=== PATIENT | female | born 1960 | race Caucasian/White ===

== ENCOUNTER 2016-10-14 22:15 | Inpatient (IN) | payer OTHER ==
[~2016-10-14] VITALS: Ht 160 cm; Wt 58.8 kg
--- NOTE | 2016-10-14 22:30 | ERA ---
ER Documentation Chief Complaint Date/Time DATE: 10/14/16 TIME: 22:30 Chief Complaint Fever HPI The patient is a 56-year-old female, presenting to the ER because of fever of 102.3 at 5 PM today at the intermediate. She was sent to the ER for further evaluation. She is unable to provide history. The history is obtained from [facility] certified concierge and medical record. She is currently receiving Tygacil and tobramycin for ESBL urine and wound infection beginning on October 06, 2016. No further history is obtained from the patient not a [employer] certified concierge Past medical history: Chronic respiratory failure, ventilator dependence, anemia , history of GI bleed, chronic kidney disease, neurogenic bladder, MS, diabetes mellitus, dyslipidemia, history of anoxic encephalopathy, history of basal cell carcinoma Past surgical history: Tracheostomy, G-tube, indwelling Joel catheter ROS All systems reviewed and are negative except as per history of present illness. Medications Home Meds Reported Medications Insulin Aspart* (Novolog Insulin Pen*) 100 Unit/Ml Soln, 0 SC .SLIDING SCALE AC , EA 10/14/16 Metoprolol Tartrate* (Lopressor*) 25 Mg Tab, 25 MG GTB BID, #60 TAB HOLD IF SBP<110; HR<60 10/14/16 Baclofen* (Baclofen*) 20 Mg Tablet, 20 MG GTB TID, TAB 10/14/16 Magnesium Oxide* (Magnesium Oxide*) 400 Mg Tablet, 400 MG GTB BID, TAB 10/14/16 Gemfibrozil* (Gemfibrozil*) 600 Mg Tablet, 600 MG GTB BID, TAB 10/14/16 [place]ma-3 Fatty Acids/Fish Oil (Fish Oil 1,000 mg Capsule) 1 Each Capsule, 1 EACH GTB BID, CAP 10/14/16 Clonidine Hcl* (Clonidine Hcl*) 0.1 Mg Tab, 0.1 MG GTB Q8, TAB IF SBP>160 10/14/16 Atorvastatin* (Atorvastatin*) 40 Mg Tablet, 40 MG GTB QHS, #30 TAB 10/14/16 Ascorbic Acid (Vitamin C) 500 Mg Tab, 500 MG GTB TID, TAB 10/14/16 Simethicone (GAS RELIEF) 80 Mg Tab.chew, 160 MG GTB DAILY, TAB.CHEW 10/14/16 Zinc Sulfate* (Zinc Sulfate*) 220 Mg Tablet, 220 MG GTB DAILY, TAB 10/14/16 Loratadine* (Loratadine*) 10 Mg Tablet, 10 MG GTB DAILY, #30 TAB 10/14/16 Glucagon,Human Recombinant (Glucagon Emergency Kit) 1 Mg Kit, 1 MG IJ PRN Y for PRN, KIT INJECT ONCE IN 20-30 MIN,IF BS<40 10/14/16 Insulin Detemir (Levemir Flextouch) 100 Unit/1 Ml Insuln.pen, 40 UNIT SQ QAM 10/14/16 Docusate Sodium* (Colace*) 250 Mg Capsule, 250 MG PO TID, #90 CAP TAKE 06:00-14:00-22:00 10/14/16 Acetaminophen* (Acetaminophen*) 650 Mg Tablet, 650 MG PO Q4 Y for ELEVATED TEMPERATURE, #30 TAB 10/14/16 Diphenhydramine Hcl* (Diphenhydramine Hcl*) 25 Mg Capsule, 25 MG GTB Q4 Y for ITCHING, CAP 10/14/16 Pantoprazole* (Pantoprazole*) 40 Mg Tablet.dr, 40 MG GTB AC BREAKFAST, TAB 10/14/16 Allergies Allergies: Coded Allergies: levofloxacin (Verified Allergy, Unknown, 10/14/16) vancomycin (Verified Allergy, Unknown, 10/14/16) Physical Exam Vitals Vital Signs Date Time Temp Pulse Resp B/P Pulse Ox O2 Delivery O2 Flow Rate FiO2 10/15/16 03:38 79 16 99 40 10/15/16 02:55 100.3 82 16 114/70 100 Mechanical Ventilator 10/15/16 01:21 105 16 95 60 10/15/16 00:59 100.3 78 16 102/63 99 Mechanical Ventilator 10/14/16 22:40 81 16 99 30 10/14/16 22:36 100.3 81 16 104/59 100 10/14/16 22:30 100.3 72 18 109/67 100 Mechanical Ventilator Physical Exam Const: No acute distress. Head: Atraumatic. Eyes: Normal Conjunctiva. ENT: Normal External Ears, Nose and Mouth. Neck: Full range of motion. No meningismus. Resp: Clear to auscultation bilaterally anteriorly laterally Cardio: Regular rate and rhythm, no murmurs. Abd: Soft, non distended, normal bowel sounds, non tender. Positive G -tube Skin: No petechiae or rashes. Back: No midline or flank tenderness. Ext: No cyanosis, or edema. Bilateral upper extremity immobilized Neur: Unable to perform due to condition Psych: Unable to perform due to condition Result Diagram: 10/14/16224910/14/162249 Results 24 hrs Laboratory Tests Test 10/14/16 22:44 10/14/16 22:50 10/15/16 01:10 Arterial Blood HCO3 26.4mmol/L Arterial Blood Base Excess 2.0mmol/L Arterial Blood Oxygen Saturation 96.3mmHG Tristian Test ACCEPTAB Arterial Blood Gas Puncture Site Left Radial Arterial Blood Carboxyhemoglobin 0.3% Arterial Blood Date Drawn 10/14/2016 11:23:46 PM Arterial Blood Methemoglobin 0.2% Arterial Blood pCO2 (Temp correct) 40.3mmhg Arterial Blood pH (Temp corrected) 7.434 Arterial Blood pO2 (Temp corrected) 84.6mmHG Blood Gas A-a O2 Differential 82.0mmHg Blood Gas Actual Respiration Rate 16 Blood Gas Low PEEP Setting 5.0cmH2O Blood Gas Modality VENT - AC Blood Gas Notified Time 10/14/2016 11:28:30 PM Blood Gas Notified Whom BR Blood Gas Respiration Rate 16.0 Blood Gas Specimen Source Blood arterial Blood Gas Temperature 37.0C Blood Gas Tidal Volume 450.0mL FiO2 30.0% Oxyhemoglobin Percent 95.8% Total Hemoglobin 9.7g/dl Activated Partial Thromboplast Time 36.4Sec Alanine Aminotransferase (ALT/SGPT) 14IU/L Albumin 3.6g/dl Albumin/Globulin Ratio 0.80 Alkaline Phosphatase 144IU/L Anion Gap 25 Anisocytosis 1+ Aspartate Amino Transf (AST/SGOT) 23IU/L Basophils # 0.010^3/ul Basophils % 0.2% Blood Morphology Comment Blood Urea Nitrogen 98mg/dl Calcium Level 11.9mg/dl Carbon Dioxide Level 22mmol/L Chloride Level 99mmol/L Creatinine 2.89mg/dl Direct Bilirubin 0.00mg/dl Eosinophils # 0.210^3/ul Eosinophils % 2.9% Globulin 4.50g/dl Glucose Level 271mg/dl Hematocrit 22.3% Hemoglobin 7.4g/dl Hypochromasia 1+ INR International Normalized Ratio 1.11 Indirect Bilirubin 0.0mg/dl Lactic Acid Level 1.7mmol/L 1.0mmol/L Large Platelets FEW Lymphocytes # 0.910^3/ul Lymphocytes % 17.0% Mean Corpuscular Hemoglobin 28.1pg Mean Corpuscular Hemoglobin Concent 33.5g/dl Mean Corpuscular Volume 84.0fl Mean Platelet Volume 9.6fl Microcytosis 1+ Monocytes # 0.510^3/ul Monocytes % 10.2% Neutrophils # 3.710^3/ul Neutrophils % 69.7% Nucleated Red Blood Cells # 0.010^3/ul Nucleated Red Blood Cells % 0.0/100WBC Platelet Count 15587^3/UL Platelet Estimate PLT APPEAR ADEQUATE Potassium Level 6.0mmol/L Prothrombin Time 14.3Sec Prothrombin Time Ratio 1.1 Red Blood Count 2.6510^6/ul Red Cell Distribution Width 16.6% Sodium Level 140mmol/L Tear Drop Cells FEW Total Bilirubin 0.0mg/dl Total Protein 8.1g/dl Troponin I < 0.010ng/ml White Blood Count 5.310^3/ul Current Medications Medications (Trade) Dose Ordered Sig/Charlie Route PRN Reason Start Time Stop Time Status Last Admin Dose Admin Piperacillin Sod/ Tazobactam Sod 50 ml @ 100 mls/hr ONCE ONCE IVPB 10/15/16 00:00 10/15/16 00:29 Cancel Piperacillin Sod/ Tazobactam Sod (Zosyn 2.25gm/ 50ml (Pmx)) 50 ml @ 100 mls/hr ONCE ONCE IVPB 10/15/16 00:00 10/15/16 00:29 DC 10/15/16 00:57 Insulin Human Regular (Humulin R) 10 unit ONCE ONCE IV 10/15/16 01:31 10/15/16 01:32 DC 10/15/16 01:40 Dextrose 50 ml 50 ml ONCE ONCE IV 10/15/16 01:31 10/15/16 01:32 DC 10/15/16 01:39 Sodium Chloride (NS) 1,000 ml @ 50 mls/hr Q20H IV 10/15/16 01:32 10/15/16 02:03 Ondansetron HCl (Zofran Inj) 4 mg Q6H PRN IV NAUSEA AND/OR VOMITING 10/15/16 02:00 Nitroglycerin (Nitroglycerin (Sl Tab) 0.4 Mg) 1 tab Q5M PRN SL CHEST PAIN 10/15/16 02:00 Acetaminophen (Tylenol Supp) 650 mg Q4H PRN OR PAIN LEVEL 1-3 OR FEVER 10/15/16 02:00 Lorazepam (Ativan) 1 mg Q2H PRN IV ANXIETY 10/15/16 02:00 Pantoprazole (Protonix Iv) 40 mg DAILY@06 IV 10/15/16 06:00 Insulin Aspart (Novolog Insulin Pen) NOVOLOG *MILD* ALGORITHM WITH MEALS BEDTIME SC 10/15/16 07:35 Miscellaneous Information (* Miscellaneous Pharmacy Order) HYPOGLYCEMIA PROTOCOL w... ONCE ONCE XX 10/15/16 02:00 10/15/16 02:01 DC Miscellaneous Information (* Miscellaneous Pharmacy Order) Discontinue Glyburide, Glipizide,... ONCE ONCE XX 10/15/16 02:00 10/15/16 02:01 DC Miscellaneous Information (* Miscellaneous Pharmacy Order) Discontinue all previ... ONCE ONCE XX 10/15/16 02:00 10/15/16 02:01 DC Atorvastatin Calcium (Lipitor) 40 mg QHS GTB 10/15/16 21:00 Baclofen (Lioresal) 20 mg TID GTB 10/15/16 09:00 Clonidine (Catapres) 0.1 mg Q8 GTB 10/15/16 06:00 Diphenhydramine HCl (Benadryl Liquid Cup) 25 mg Q4H PRN GTB ITCHING 10/15/16 01:45 Gemfibrozil (Lopid) 600 mg BID GTB 10/15/16 09:00 Insulin Detemir (Levemir) 40 unit QAM SC 10/15/16 09:00 Loratadine (Claritin) 10 mg DAILY GTB 10/15/16 09:00 Magnesium Oxide (Mag-Ox 400) 400 mg BID GTB 10/15/16 09:00 Metoprolol Tartrate (Lopressor) 25 mg BID GTB 10/15/16 09:00 Pantoprazole (Protonix Tab) 40 mg AC BREAKFAST PO 10/15/16 07:00 10/15/16 07:00 DC Simethicone (Mylicon) 160 mg DAILY GTB 10/15/16 09:00 Zinc Sulfate (Zinc Sulfate) 220 mg DAILY GTB 10/15/16 09:00 Fish Oil 1000 mg 1,000 mg BID PO 10/15/16 09:00 Cefepime HCl 50 ml @ 100 mls/hr Q12 IVPB 10/15/16 09:00 Tigecycline/ Sodium Chloride (Tygacil/NS) 100 ml @ 200 mls/hr Q12 IVPB 10/15/16 09:00 Miscellaneous Information 1 ea NOTE XX 10/15/16 02:00 Glucose (Glutose) 15 gm Q15M PRN PO DECREASED GLUCOSE 10/15/16 02:00 Glucose (Glutose) 22.5 gm Q15M PRN PO DECREASED GLUCOSE 10/15/16 02:00 Dextrose (D50w Syringe) 25 ml Q15M PRN IV DECREASED GLUCOSE 10/15/16 02:00 Dextrose (D50w Syringe) 50 ml Q15M PRN IV DECREASED GLUCOSE 10/15/16 02:00 Glucagon (Glucagen) 1 mg Q15M PRN IM DECREASED GLUCOSE 10/15/16 02:00 Glucose (Glutose) 15 gm Q15M PRN BUCCAL DECREASED GLUCOSE 10/15/16 02:00 Diagnostic Test (Pha) (Accucheck) 1 ea 02 XX 10/16/16 02:00 Procedures/MDM EKG: Read by emergency physician Rate/Rhythm: Normal Sinus Rhythm 78 beats per min QRS, ST, T-waves: No ST elevation, no T wave inversion Impression: Normal EKG [place] [id number] Radiology Main Line: [phone] DIAGNOSTIC IMAGING REPORT Patient: MALLIKA CID : [id number] Age: 56 Sex: F MR #: [id number] DOS: 10/14/16 2244 Ordering MD: RAGHAVENDRA ED LA CRUZ MD Location: E/R Room/Bed: PROCEDURE: XR Chest AP portable CLINICAL INDICATION: Possible sepsis TECHNIQUE: An AP portable radiograph of the chest was submitted. COMPARISON: None. FINDINGS: Support Hardware: A tracheostomy tube appears satisfactorily positioned. Cardiovascular: The cardiovascular silhouette appears unremarkable. Lung Tello: There is atelectasis and possibly infiltrate seen to the heart with in the left lower lobe. Pleural Spaces: The left costophrenic angle is blunted suggesting a small left pleural fluid accumulation. No pneumothorax is evident. Osseous Structures: The osseous elements appear rarefied Soft Tissues: The soft tissues appear unremarkable. IMPRESSION: 1. A tracheostomy tube is satisfactorily positioned. 2. Atelectasis and possibly infiltrate seen to the heart within the left lower lobe. 3. Small left pleural fluid accumulation. Quique Villalpando Physician Date Time Electronically viewed and signed by Quique Villalpando Physician on 10/14/2016 23:24 RH/ CC: RAGHAVENDRA DE LA CRUZ MD Urinalysis pending MEDICAL MAKING DECISION: The patient is a 56-year-old female, presenting with acute ventilator associated pneumonia, associated with fever of 102.3 at the intermediate, acute hyperkalemia, anemia. She is currently taking Tygacil IV and tobramycin IV. I will add Zosyn IV for acute pneumonia. She was treated with D50 IV, 10 Regular Insulin IV for acute hyperkalemia with good response. The differential diagnoses considered include but are not limited to asthma, COPD, pneumonia, pulmonary embolus, pleural effusion, congestive heart failure. The differential diagnoses for severe anemia considered include but are not limited to gastritis, peptic ulcer disease, esophageal varices, Naty-Blancas tear, carcinoma, polyp, hemorrhoid, fissure, diverticulosis, angiodysplasia. Critical Care: Time: 35 minutes excluding all billable procedures. Treatments/Evaluations: Close monitoring and treatment of unstable vital signs, cardiorespiratory, and neurologic status, while maintaining tight balance of fluid, respiratory, and cardiac interventions. Departure Diagnosis: Primary Impression: Ventilator associated pneumonia Additional Impressions: Hyperkalemia Anemia Condition: Critical Comments I discussed the findings with the patient. I discussed the patient with the on- call hospitalist Dr. Dempsey who was made aware of the lab, the treatment, the patient condition. The patient is admitted to ICU at 1:35 AM RAGHAVENDRA DE LA CRUZ MD Oct 14, 2016 22:30
[2016-10-14] MEDS ORDERED: DIPH25CA6 GTB (22:42)
[2016-10-14] MEDS ORDERED: PANT40TA4 GTB (22:42)
[2016-10-14] MEDS ORDERED: ACET-2047 PO (22:43)
[2016-10-14] MEDS ORDERED: DOCU250C58 PO (22:45)
[2016-10-14] MEDS ORDERED: INSU100I27 SQ (22:47)
[2016-10-14] MEDS ORDERED: GLUC1KIT IJ (22:52)
[2016-10-14] MEDS ORDERED: LORA10TA3 GTB (22:52)
[2016-10-14] MEDS ORDERED: ZINC220T GTB (22:53)
[2016-10-14] MEDS ORDERED: SIME80TA53 GTB (22:57)
[2016-10-14] MEDS ORDERED: ATOR40TA68 GTB (22:58)
[2016-10-14] MEDS ORDERED: ASC500 GTB (22:58)
[2016-10-14] MEDS ORDERED: CLON-379 GTB (22:59)
[2016-10-14] MEDS ORDERED: OMEG-135 GTB (23:00)
[2016-10-14] MEDS ORDERED: GEMF600T60 GTB (23:01)
[2016-10-14] MEDS ORDERED: MAGN400T28 GTB (23:01)
[2016-10-14] MEDS ORDERED: BACL20TA GTB (23:03)
[2016-10-14] MEDS ORDERED: METO-448 GTB (23:05)
[2016-10-14] MEDS ORDERED: NOVO3I SC (23:08)
--- NOTE | 2016-10-14 23:24 | RADRPT ---
PROCEDURE: XR Chest AP portable CLINICAL INDICATION: Possible sepsis TECHNIQUE: An AP portable radiograph of the chest was submitted. COMPARISON: None. FINDINGS: Support Hardware: A tracheostomy tube appears satisfactorily positioned. Cardiovascular: The cardiovascular silhouette appears unremarkable. Lung Tello: There is atelectasis and possibly infiltrate seen to the heart with in the left lower l obe. Pleural Spaces: The left costophrenic angle is blunted suggesting a small left pleural fluid accumul ation. No pneumothorax is evident. Osseous Structures: The osseous elements appear rarefied Soft Tissues: The soft tissues appear unremarkable. IMPRESSION: 1. A tracheostomy tube is satisfactorily positioned. 2. Atelectasis and possibly infiltrate seen to the heart within the left lower lobe. 3. Small left pleural fluid accumulation. Physician Gianna Date Time Electronically viewed and signed by Quique Villalpando Physician on 10/14/2016 23:24 /
[2016-10-14 23:29] LABS: Allen Test ACCEPTAB; Arterial COHb 0.3 % (0.0-3.0); Arterial Fraction of Oxyhgb 95.8 % (93.0-99.0); Arterial HCO3 26.4 mmol/L (22.0-26.0); Arterial MetHb 0.2 % (0.0-1.5); Arterial Total Hemglobin 9.7 g/dl (12.0-18.0); MODE VENT - AC
[2016-10-14 23:43] LABS: BASOPHILS % 0.2 % (0.0-2.0); EOSINOPHILS # 0.2 10^3/ul (0.0-0.5); EOSINOPHILS % 2.9 % (0.0-7.0); HEMATOCRIT 22.3 % (37.0-47.0); HEMOGLOBIN 7.4 g/dl (12.0-16.0); LYMPHOCYTES # 0.9 10^3/ul (0.8-2.9); MEAN CORPUSCULAR HEMOGLOBIN 28.1 pg (29.0-33.0); MEAN CORPUSCULAR HGB CONC 33.5 g/dl (32.0-37.0); MEAN PLATELET VOLUME 9.6 fl (7.4-10.4); MONOCYTE # 0.5 10^3/ul (0.3-0.9); MONOCYTES % 10.2 % (0.0-11.0); NEUTROPHIL # 3.7 10^3/ul (1.6-7.5); NEUTROPHILS % 69.7 % (39.0-77.0); PLATELET COUNT 226 10^3/UL (140-440); RED BLOOD COUNT 2.65 10^6/ul (4.20-5.40); RED CELL DISTRIBUTION WIDTH 16.6 % (11.5-14.5); UNCORRECTED WBC 5.3 10^3/ul (4.8-10.8); WHITE BLOOD COUNT 5.3 10^3/ul (4.8-10.8)
[2016-10-14 23:49] LABS: INR 1.11; PROTIME 14.3 Sec (12.2-14.2); PT RATIO 1.1
[2016-10-14 23:50] LABS: PARTIAL THROMBOPLASTIN TIME 36.4 Sec (25.0-35.0)
[2016-10-14 23:53] LABS: CONDITION 1; LH ANALYZER COMMENTS 1
[2016-10-15] VITALS (54 sets, daily range): BP systolic 79–143; BP diastolic 50–86; PULSE 67–138; RESP 15–17; TEMP 100.3; Ht 160 cm; Wt 58.8 kg
[2016-10-15] MEDS ORDERED: PIPER-TAZO 2.25 GM (PMX) 50 ML IVPB ONE ×2
[2016-10-15 01:13] LABS: ALBUMIN 3.6 g/dl (3.3-4.9); CHLORIDE 99 mmol/L (97-110); SODIUM 140 mmol/L (135-144)
[2016-10-15 01:15] LABS: ANION GAP 25 (8-16); CARBON DIOXIDE 22 mmol/L (21-31); CREATININE 2.89 mg/dl (0.44-1.00)
[2016-10-15 01:16] LABS: ALANINE AMINOTRANSFERASE 14 IU/L (13-69); ALKALINE PHOSPHATASE 144 IU/L (42-121); ANISOCYTOSIS 1+; ASPARTATE AMINO TRANSFERASE 23 IU/L (15-46); BLOOD UREA NITROGEN 98 mg/dl (7-20); CALCIUM 11.9 mg/dl (8.4-10.2); GLUCOSE 271 mg/dl (70-220); HYPOCHROMASIA 1+; MICROCYTOSIS 1+; TOTAL PROTEIN 8.1 g/dl (6.1-8.1)
[2016-10-15 01:17] LABS: PLATELET ESTIMATE PLT APPEAR ADEQUATE; TEAR DROP CELLS FEW
[2016-10-15] MEDS ORDERED: INSULIN REGULAR, HUMAN 100 UNIT/1 ML 3ML VIAL IV ONE (01:31)
[2016-10-15] MEDS ORDERED: DEXTROSE 50% 50 ML SYRINGE IV ONE (01:31)
[2016-10-15 01:45] LABS: TROPONIN-I < 0.010 ng/ml (0.00-0.12)
[2016-10-15] MEDS ORDERED: DIPHENHYDRAMINE 2.5 MG/ML 5ML CUP GTB PRN (01:45)
[2016-10-15] MEDS ORDERED: ONDANSETRON 4 MG INJ IV PRN (02:00)
[2016-10-15] MEDS ORDERED: GLUCOSE GEL 15 GRAM TUBE BUCCAL PRN (02:00)
[2016-10-15] MEDS ORDERED: ACETAMINOPHEN 650 MG SUPP PR PRN (02:00)
[2016-10-15] MEDS ORDERED: GLUCAGON 1 MG INJ IM PRN (02:00)
[2016-10-15] MEDS ORDERED: DEXTROSE 50% 50 ML SYRINGE IV PRN ×2 (02:00)
[2016-10-15] MEDS ORDERED: GLUCOSE GEL 15 GRAM TUBE PO PRN ×2 (02:00)
[2016-10-15] MEDS ORDERED: LORAZEPAM 2 MG INJ IV PRN (02:00)
[2016-10-15] MEDS ORDERED: NITROGLYCERIN (SL) 0.4 MG TAB SL PRN (02:00)
--- NOTE | 2016-10-15 02:00 | HP ---
Date/Time of Note Date/Time of Note DATE: 10/15/16 TIME: 01:49 Assessment/Plan VTE Prophylaxis VTE Prophylaxis Intervention: contraindicated VTE Contraindication Reason: bleeding Lines/Catheters Urinary Cath still in place: Yes Reason Cath still needed: urinary retention Assessment/Plan Assessment/Plan 56 yo unfortunate female with a past medical history of MS, trach dependent respiratory failure, type II DM, chronic wounds, dyslipidemia, anemia - chronic , GI bleed, neurogenic bladder, Basal Cell CA, who was sent from [facility] for elevated temperatures. 1. Fevers - 2/2 Pneumonia - possible sepsis - will admit the patient to the ICU , continue with IV antibiotics, cultures, Id c/s 2. Acute on chronic respiratory failure - consult pulmonology, breathing treatments 3. Hyperkalemia - cocktail given, monitor 4. Anemia - acute on chronic -transfuse 2 units prbcs - monitor acute bleeding 5. Acute on chronic kidney failure - c/s nephro - avoid nephrotoxins, renally adjust medications, low dose IVF 6. Type II DM - check hgba1c, ISS 7. Dyslipidemia - continue with statin, lipid panel 8. Neurogenic bladder -continue with munoz 9. MS - monitor acute flares 10. GI ppx - protonix 11. DVT - scds as per clinical course. this critical care note took greater than 1 hour to complete HPI/ROS Admit Date/Time Admit Date/Time 10/15/2016, 1:49 am Hx of Present Illness 56 yo unfortunate female with a past medical history of MS, trach dependent respiratory failure, type II DM, chronic wounds, dyslipidemia, anemia - chronic , GI bleed, neurogenic bladder, Basal Cell CA, who was sent from [facility] for elevated temperatures. All this information was gathered from the chart and the ED physician as the patient is non-verbal. ROS cannot complete 2/2 to being obtunded/nonverbal PMH/Family/Social Past Medical History MS, Trach dependent respiratory failure Medical History: diabetes, GI bleed, high cholesterol, hypertension, renal disease Past Surgical History trach/peg Family History Significant Family History: no pertinent family hx Social History Alcohol Use: none Smoking Status: Unknown if ever smoked Drug Use: none Exam/Review of Systems Vital Signs Vitals Vital Signs Date Time Temp Pulse Resp B/P Pulse Ox O2 Delivery O2 Flow Rate FiO2 10/15/16 01:21 105 16 95 60 10/15/16 00:59 100.3 102/63 Mechanical Ventilator Exam Exam Gen Terry: alert to self, opens her eyes, mild respiratory distress HEENT: NC/AT, PERRLA, facial erythema bilaterally noted NECK: supple, no thyromegaly, trach site c/d/i THORAX: symmetrical, no obvious deformities CV: S1S2, RRR, no M/G/R Lungs: CTAB no W/C/R/R Abd: soft, NT/ND, +BS, no rebound, no guarding, neg HSM, peg site c/d/i EXT: no edema, no ecchymosis, no clubbing, contractures noted Neuro: alert to self, cannot assess Psych: withdrawn Skin: left arm wound in michlele wrap Labs Result Diagram: 10/14/16224910/14/162249 Medications Medications Current Medications Sodium Chloride (NS) 1,000 ml @ 50 mls/hr Q20H IV ; Start 10/15/16 at 01:32 Ondansetron HCl (Zofran Inj) 4 mg Q6H PRN IV NAUSEA AND/OR VOMITING; Start at 02:00 Nitroglycerin (Nitroglycerin (Sl Tab) 0.4 Mg) 1 tab Q5M PRN SL CHEST PAIN; Start 10/15/16 at 02:00 Acetaminophen (Tylenol Supp) 650 mg Q4H PRN LA PAIN LEVEL 1-3 OR FEVER; Start 10/15/16 at 02:00 Lorazepam (Ativan) 1 mg Q2H PRN IV ANXIETY; Start 10/15/16 at 02:00 Pantoprazole (Protonix Iv) 40 mg DAILY@06 IV ; Start 10/15/16 at 06:00 Miscellaneous Information (* Miscellaneous Pharmacy Order) HYPOGLYCEMIA PROTOCOL w... ONCE ONCE XX ; Start 10/15/16 at 02:00; Stop 10/15/16 at 02:01 Miscellaneous Information (* Miscellaneous Pharmacy Order) Discontinue Glyburide , Glipizide,... ONCE ONCE XX ; Start 10/15/16 at 02:00; Stop 10/15/16 at 02:01 Miscellaneous Information (* Miscellaneous Pharmacy Order) Discontinue all previ... ONCE ONCE XX ; Start 10/15/16 at 02:00; Stop 10/15/16 at 02:01 Atorvastatin Calcium (Lipitor) 40 mg QHS GTB ; Start 10/15/16 at 21:00; Status UNV Baclofen (Lioresal) 20 mg TID GTB ; Start 10/15/16 at 09:00; Status UNV Clonidine (Catapres) 0.1 mg Q8 GTB ; Start 10/15/16 at 06:00 Diphenhydramine HCl (Benadryl Liquid Cup) 25 mg Q4H PRN GTB ITCHING; Start at 01:45 Gemfibrozil (Lopid) 600 mg BID GTB ; Start 10/15/16 at 09:00; Status UNV Insulin Detemir (Levemir) 40 unit QAM SC ; Start 10/15/16 at 09:00; Status UNV Loratadine (Claritin) 10 mg DAILY GTB ; Start 10/15/16 at 09:00; Status UNV Magnesium Oxide (Mag-Ox 400) 400 mg BID GTB ; Start 10/15/16 at 09:00; Status UNV Metoprolol Tartrate (Lopressor) 25 mg BID GTB ; Start 10/15/16 at 09:00; Status UNV Simethicone (Mylicon) 160 mg DAILY GTB ; Start 10/15/16 at 09:00; Status UNV Zinc Sulfate (Zinc Sulfate) 220 mg DAILY GTB ; Start 10/15/16 at 09:00; Status UNV Miscellaneous Information 1 each 1 each BID GTB ; Start 10/15/16 at 09:00; Status UNV Cefepime HCl 50 ml @ 100 mls/hr Q12 IVPB ; Start 10/15/16 at 09:00 Tigecycline/ Sodium Chloride (Tygacil/NS) 100 ml @ 200 mls/hr Q12 IVPB ; Start 10/15/16 at 09:00; Status UNV Miscellaneous Information 1 ea NOTE XX ; Start 10/15/16 at 02:00 Glucose (Glutose) 15 gm Q15M PRN PO DECREASED GLUCOSE; Start 10/15/16 at 02:00 Glucose (Glutose) 22.5 gm Q15M PRN PO DECREASED GLUCOSE; Start 10/15/16 at 02: 00 Dextrose (D50w Syringe) 25 ml Q15M PRN IV DECREASED GLUCOSE; Start 10/15/16 at 02:00 Dextrose (D50w Syringe) 50 ml Q15M PRN IV DECREASED GLUCOSE; Start 10/15/16 at 02:00 Glucagon (Glucagen) 1 mg Q15M PRN IM DECREASED GLUCOSE; Start 10/15/16 at 02:00 Glucose (Glutose) 15 gm Q15M PRN BUCCAL DECREASED GLUCOSE; Start 10/15/16 at 02 :00 Diagnostic Test (Pha) (Accucheck) 1 ea 02 XX ; Start 10/16/16 at 02:00 Procedures Procedures CXR IMPRESSION: 1. A tracheostomy tube is satisfactorily positioned. 2. Atelectasis and possibly infiltrate seen to the heart within the left lower lobe. 3. Small left pleural fluid accumulation. RUSSELL FERRARA MD Oct 15, 2016 01:59
[2016-10-15] MEDS: SOD CHLORIDE 0.9% 1,000 ML IV SCH ×2 (02:03→21:30)
--- NOTE | 2016-10-15 02:13 | RADRPT ---
PROCEDURE: CHEST - 1 VIEW October 15, 2016 at 01:44 a.m. CLINICAL INDICATION: 56-year-old female with shortness of breath. TECHNIQUE: A single frontal AP view of the chest was performed portably. The images were reviewed on a PACS workstation. COMPARISON: Chest x-ray October 14, 2016 at 10:58 p.m. FINDINGS: There is a tracheostomy tube in place. The cardiomediastinal silhouette is mildly enlarged but with out significant interval change. There is mild pulmonary vascular congestion. There is probable sm all left pleural effusion with basilar atelectasis. A superimposed infiltrate cannot be excluded. This is without significant interval change. There is no evidence for pneumothorax. The osseous str uctures are intact. IMPRESSION: 1. Tracheostomy tube. 2. Mild pulmonary vascular congestion. 3. Persistent mild left pleural effusion with basilar atelectasis and/or infiltrate. .Dc Nice MD, MD Date Time Electronically viewed and signed by .Dc Nice MD, on 10/15/2016 02:13 .M/
[2016-10-15 04:02] LABS: BASOPHILS % 0.2 % (0.0-2.0); EOSINOPHILS # 0.1 10^3/ul (0.0-0.5); EOSINOPHILS % 2.4 % (0.0-7.0); HEMATOCRIT 22.5 % (37.0-47.0); HEMOGLOBIN 7.4 g/dl (12.0-16.0); LYMPHOCYTES # 0.8 10^3/ul (0.8-2.9); LYMPHOCYTES % 14.2 % (15.0-51.0); MEAN CORPUSCULAR HEMOGLOBIN 27.9 pg (29.0-33.0); MEAN CORPUSCULAR HGB CONC 32.7 g/dl (32.0-37.0); MEAN CORPUSCULAR VOLUME 85.3 fl (82.0-101.0); MEAN PLATELET VOLUME 9.6 fl (7.4-10.4); MONOCYTE # 0.5 10^3/ul (0.3-0.9); MONOCYTES % 8.1 % (0.0-11.0); NEUTROPHIL # 4.3 10^3/ul (1.6-7.5); NEUTROPHILS % 75.1 % (39.0-77.0); PLATELET COUNT 211 10^3/UL (140-440); RED BLOOD COUNT 2.64 10^6/ul (4.20-5.40); RED CELL DISTRIBUTION WIDTH 16.6 % (11.5-14.5); UNCORRECTED WBC 5.7 10^3/ul (4.8-10.8); WHITE BLOOD COUNT 5.7 10^3/ul (4.8-10.8)
[2016-10-15 04:08] LABS: CONDITION 1; LH ANALYZER COMMENTS 1
[2016-10-15 04:18] LABS: POTASSIUM 5.4 mmol/L (3.5-5.1)
[2016-10-15 04:21] LABS: CREATININE 3.36 mg/dl (0.44-1.00)
[2016-10-15 04:22] LABS: CALCIUM 12.2 mg/dl (8.4-10.2)
[2016-10-15 04:32] LABS: CHOL/HDL RATIO 6.1 RATIO
[2016-10-15 05:03] LABS: THYROID STIMULATING HORMONE 0.214 MIU/L (0.465-4.680)
[2016-10-15] MEDS: PANTOPRAZOLE 40 MG INJ IV SCH (06:22)
[2016-10-15] MEDS ORDERED: PANTOPRAZOLE (EC) 40 MG TAB PO SCH (07:00)
[2016-10-15] MEDS ORDERED: SOD CHLORIDE 0.9% 250 ML IV* ONE ×4 (07:08→07:58)
[2016-10-15] MEDS ORDERED: FUROSEMIDE 40 MG INJ IV SCH (07:30)
[2016-10-15] MEDS ORDERED: INSULIN ASPART [NOVOLOG] 3 ML PEN SC SCH (07:35)
[2016-10-15] MEDS ORDERED: LIDOCAINE 1% (MDV) 20 ML INJ SC ONE (08:00)
[2016-10-15] MEDS ORDERED: NA POLYST SULFON 15 GM/60 ML BTL GTB ONE (08:30)
[2016-10-15] MEDS: MAGNESIUM OXIDE 400 MG TAB GTB SCH ×2 (08:46→21:21)
[2016-10-15] MEDS: TIGECYCLINE 50 MG in SOD CHLORIDE 0.9% 100 ML IVPB SCH ×2 (08:46→21:21)
[2016-10-15] MEDS: GEMFIBROZIL 600 MG TAB GTB SCH ×2 (08:46→21:20)
[2016-10-15] MEDS: FISH OIL 1,000 MG CAP PO SCH ×2 (08:47→21:20)
[2016-10-15] MEDS: ZINC SULFATE 220 MG CAP GTB SCH (08:47)
[2016-10-15] MEDS: BACLOFEN 10 MG TAB GTB SCH ×3 (08:47→21:20)
[2016-10-15] MEDS: LORATADINE 10 MG TAB GTB SCH (08:47)
[2016-10-15] MEDS: INSULIN DETEMIR [LEVEMIR] 3ML CART SC SCH (08:58)
[2016-10-15] MEDS ORDERED: CEFEPIME 1GM/50 ML (PMX) 50 ML IVPB SCH (09:00)
[2016-10-15] MEDS: METOPROLOL 25 MG TAB GTB SCH ×2 (09:00→21:00)
--- NOTE | 2016-10-15 09:05 | QN ---
Documentation Comment Reviewed patient's labs. Order for Kayexalate given for hyperkalemia. PICC line ordered because of poor venous access. We will start tube feedings. Case discussed with Dr. Nesbitt. MAXIMILIANO ECHOLS NP Oct 15, 2016 09:05
[2016-10-15] MEDS: INSULIN ASPART [NOVOLOG] 3 ML PEN SC SCH ×4 (10:24→21:23)
--- NOTE | 2016-10-15 10:39 | CONS ---
DATE OF ADMISSION: 10/15/2016 DATE OF CONSULTATION: 10/15/2016 TYPE OF CONSULTATION: Nephrology. REASON FOR CONSULTATION: Acute kidney injury and chronic kidney disease. PHYSICIAN REQUESTING CONSULT: Dr. Dempsey. HISTORY OF PRESENT ILLNESS: This is a 56-year-old female with a past medical history of chronic kid fatmata disease, history of ventilator dependent respiratory failure, history of dysphagia, status post PEG, history of anoxic brain injury, history of diabetes, chronic wounds, MS, dyslipidemia, history of neurogenic bladder, history basal cell carcinoma who presents to [facility] from assisted facility due to elevated temperature. The patient in the long-term was n oted to have a temperature of 102.3, as a result she was sent to the emergency room. In the emergen cy room, the patient had imaging studies including a chest x-ray which showed findings of pulmonary vascular congestion. The patient had laboratory data drawn, which showed a BUN of 98, creatinine of 2.89 and a potassium of 6.0. In the emergency room, the patient received IV fluids, antibiotics, a nd was admitted to intensive care unit for further care. In terms of the patient's renal history, the patient has a reported history of chronic kidney diseas e with unknown baseline creatinine. There were no reports of hemoptysis, hematemesis, hematochezia, no frothy urine or rashes reported. PAST MEDICAL HISTORY: As stated above, history of ventilator dependent respiratory failure, history of dysphagia, status post PEG, history of anoxic brain injury, history of diabetes, chronic kidney disease, dyslipidemia, neurogenic bladder, multiple sclerosis, history of basal cell carcinoma. PAST SURGICAL HISTORY: Status post trach, status post PEG. FAMILY HISTORY: No family history of cancer, heart disease. SOCIAL HISTORY: Lives at a assisted facility. MEDICATIONS: The patient's medications have been reviewed. REVIEW OF SYSTEMS: Unable to obtain adequate review of systems as patient is obtunded. Pertinent p ositives obtained reviewing medical records. The patient's ____ stated in HPI, otherwise negative. PHYSICAL EXAMINATION: VITAL SIGNS: Blood pressure is 111/56, respirations 16, pulse 76, temperature 97.6. HEENT: Head is normocephalic. NECK: Shows trach. HEART: Regular rate. LUNGS: Show diminished breath sounds at base. Positive crackles. ABDOMEN: Soft, nontender to palpation. Positive PEG. EXTREMITIES: Negative for clubbing, cyanosis, no edema. DERMATOLOGIC: No rashes. MUSCULOSKELETAL: Multiple wounds noted. NEUROLOGIC: Patient is obtunded and unable to do adequate exam. LABORATORY DATA: This morning shows sodium 141, potassium ____, chloride 100, bicarbonate 24, BUN 1 02, creatinine 3.36, calcium 12.2. White count 5.7, hemoglobin 7.4, hematocrit ____, platelet count 211. ABG shows pH 7.34 with a pCO2 of 40. ASSESSMENT AND PLAN: This is a 56-year-old female who presents with: 1. Nonoliguric acute kidney injury on top of chronic kidney disease with unknown baseline creatinin e. Etiology of acute kidney injury is possibly multifactorial secondary to sepsis, hemodynamics, tu bular injury. Plan at this point is to do a full workup. We will check UA with microanalysis. Ricco l check urine electrolytes, calculate a FENa (fractional excretion of urea). Will quantify the ashwin ent's proteinuria. Will check a renal ultrasound to rule out obstruction and to evaluate renal pare nchyma. Would otherwise recommend to continue IV hydration. Continue to treat underlying sepsis wi th IV antibiotics, maintain MAP above 65. Would defer any FAITH inhibitor or ARB. Would otherwise co ntinue supportive care, renally dose all meds. We will also attempt to obtain patient's old medical records to ascertain previous baseline creatinine. If patient's renal function should further decli ne, would then need to consider renal replacement therapy. 2. Hyperkalemia. Etiology secondary to acute kidney injury. The patient is status post Kayexalate and Lasix. Potassium levels are slowly improving. We will continue to monitor closely. If potass ium levels are unable to be controlled through medical management, would consider starting dialysis. 3. Anemia. We will monitor H and H levels, consider Epogen. The patient is pending a blood transf usion. 4. Mineral bone disorder. The patient is hypercalcemic, etiology is unclear, may be due to immobil ization versus primary blood dyscrasia. Plan is to check a PTH, vitamin D25, vitamin D 125 level. We will monitor closely. Consider giving calcitonin. 5. Sepsis secondary to pneumonia, possible decubitus wound. Continue current antibiotic regimen. 6. Diabetes, continue Accu-Cheks and sliding scale. 7. Dyslipidemia. Continue statin therapy. 8. Ventilatory dependent respiratory failure. Vent settings have been reviewed. ABG has been revi ewed. Continue to monitor. Follow up with pulmonary. 9. Dysphagia, status post PEG. Continue tube feeding. 10. Multiple decubitus wound. Continue wound care. 11. History of multiple sclerosis, continue medical management. 12. Acute on chronic encephalopathy secondary to anoxic brain injury. Continue to monitor. Thank you, Dr. Dempsey, for this interesting consult. It will be a pleasure to follow up the patien t with you throughout the hospital course. Dictated By: JANETH BURRIS DO NR/NTS Conf#: [id number] DID#: [id number]
--- NOTE | 2016-10-15 11:07 | CONS ---
DATE OF ADMISSION: 10/15/2016 DATE OF CONSULTATION: 10/15/2016 TYPE OF CONSULTATION: Infectious Disease. REASON FOR CONSULTATION: Antibiotic management. HISTORY OF PRESENT ILLNESS: Ms. Pollard is an unfortunate 56-year-old female with past medical history of multiple sclerosis who comes in now with elevated temperatures and is being seen for antibiotic management. Her problems include: 1. Multiple sclerosis. 2. Ventilatory dependent respiratory failure. 3. Tracheostomy. 4. Adult-onset diabetes mellitus. 5. Chronic wounds. 6. Dyslipidemia. 7. Anemia of chronic disease. 8. Gastrointestinal bleed. 9. Neurogenic bladder. 10. Basal cell carcinoma. Patient was be sent in for elevated temperature. She also has a G-tube. On admission, her white count was 5.3, H and H 7.4, 22.3, platelet count 226,000. Today, white co unt is 5.7. Her BUN and creatinine is 102/3.36, indicative of renal failure. I do not see a urine. Chest x-ray showed tracheostomy, atelectasis and possible infiltrate seen near the heart within th e left lower lobe, small left pleural effusion, pneumothoraces are evident. She has atelectasis and possible infiltrate as noted. The patient was begun on Tygacil and cefepime. The patient was felt to have pneumonia and admitted to the ICU. PAST MEDICAL HISTORY: Operations as outlined. FAMILY HISTORY: Noncontributory. PAST SURGICAL HISTORY: Status post trach, status post PEG. SOCIAL HISTORY: She does not smoke, drink or abuse drugs. ALLERGIES: NONE TO PENICILLIN, SULFA OR FOODS. MEDICATIONS: Per chart. REVIEW OF SYSTEMS: As per HPI. PHYSICAL EXAMINATION: GENERAL: The patient is a chronically ill-appearing female who opens her eyes. She is in some resp iratory distress. VITAL SIGNS: Temperature is 100.3, blood pressure 102/63. SKIN: Without generalized rash. HEENT: Within normal limits. NECK: Tracheostomy in place without discharge or cellulitis. CHEST: Decreased breath sounds at the bases. HEART: Without murmur or gallop. ABDOMEN: Soft, nontender, without organosplenomegaly or masses. She has a G-tube site, which also has no discharge. EXTREMITIES: Without cyanosis, clubbing, or edema. RECTAL AND GENITAL: Deferred. NEUROLOGIC: No focal neurological abnormalities. IMPRESSION AND PLAN: The patient presents now with probable pneumonia. We have to rule out uroseps is as well. She has a Joel catheter for urinary retention and a history of neurogenic bladder as w jose. I will dictate my findings to Dr. Dempsey. Urinalysis has been ordered as well as ultrasound . I will dictate my findings to Dr. Dempsey and Dr. Batres. Dictated By: CRISTINA HUANG MD, JD/HERI Conf#: [id number] DID#: [id number]
--- NOTE | 2016-10-15 11:13 | CONS ---
DATE OF ADMISSION: 10/15/2016 DATE OF CONSULTATION: 10/15/2016 REASON FOR CONSULTATION: Ventilator management. Thank you, Dr. Dempsey, for this consultation. HISTORY OF PRESENT ILLNESS: This is a 56-year-old lady with multiple medical problems including chr onic encephalopathy, history of multiple sclerosis, type 2 diabetes, vent-dependent respiratory fail ure, multiple decubitus ulcers, neurogenic bladder, transferred from custodial facility for ev aluation of fevers and altered mental status. PAST MEDICAL HISTORY: As above. MEDICATIONS: Per chart. ALLERGIES: NONE. SOCIAL HISTORY: Nonsmoker, no alcohol, no history of drug use. FAMILY HISTORY: Noncontributory. SYSTEMS REVIEW: A 12-point review of systems unable to perform. PHYSICAL EXAMINATION: GENERAL: Chronically ill-appearing lady. Eyes open, but not following commands or making eye conta ct. VITAL SIGNS: Temperature 98, pulse 72, blood pressure 111/56, O2 saturation 96% on FIO2 of 40%. NECK: Supple. No JVD or lymphadenopathy. CARDIAC: S1, S2, no added sounds or murmurs. CHEST: Diminished air entry bilaterally. ABDOMEN: Soft, nontender. No guarding or rebound. EXTREMITIES: No cyanosis, clubbing. Edema +1. NEUROLOGIC: Unable to assess. SKIN: Multiple decubitus ulcers widespread was noted by nursing staff. LABORATORIES: White count 5.7, hemoglobin 7.4, platelets of 211. BUN 102, creatinine 3.36, potassi um 5.4. Arterial blood gas pH 7.43, pCO2 of 40, PaO2 of 84. INR 1.11. DIAGNOSTIC DATA: Chest x-ray was reviewed, shows possible left lower lobe infiltrate and/or effusio n, small. IMPRESSION AND PLAN: 1. Vent dependent respiratory failure. 2. Chronic encephalopathy with ____, history of likely anemia of chronic disease. 3. Dysphagia with G-tube. 4. Severe septic shock, likely polymicrobial. 5. Dysphagia with G-tube. PLAN: 1. Continue vent support. 2. Transfusion of packed red blood cells. 3. Wean off vasopressors. 4. Continue broad-spectrum antibiotics pending cultures. 5. DVT and GI prophylaxis. 6. Wound care. Dictated By: ULYSSES BENNETT/HERI Conf#: [id number] [facility]#: [id number]
[2016-10-15] MEDS ORDERED: DIPHENHYDRAMINE 50 MG INJ IV ONE (11:30)
[2016-10-15] MEDS ORDERED: EPOETIN 10000 UNITS/1 ML INJ (ESRD) SC ONE (11:30)
[2016-10-15 12:15] LABS: ADD UMIC YES; URINE BILIRUBIN (Dip) NEGATIVE (NEGATIVE); URINE BLOOD (Dip) 3+ (NEGATIVE); URINE COLOR YELLOW (YELLOW); URINE GLUCOSE (Dip) NEGATIVE (NEGATIVE); URINE KETONES (Dip) NEGATIVE (NEGATIVE); URINE LEUKOCYTE ESTERASE (Dip) 3+ (NEGATIVE); URINE NITRITE (Dip) NEGATIVE (NEGATIVE); URINE TOTAL PROTEIN (Dip) 2+ (NEGATIVE); URINE UROBILINOGEN (Dip) 0.2 E.U./dL (0.1-1.0)
[2016-10-15 12:39] LABS: BACTERIA,URINE MODERATE; SQUAMOUS EPITHELIAL CELL,UR FEW
--- NOTE | 2016-10-15 14:00 | EN ---
Date/Time of Note Date/Time of Note DATE: 10/15/16 TIME: 13:57 Event Note Medicine Medicine Event Note Unable to contact next of kin. Patient will need emergent blood transfusion given low hemoglobin and septic shock requiring vasopressors. Recommend proceeding with transfusion PRBC today, ULYSSES FORRESTER MD, [facility] Oct 15, 2016 14:00
[2016-10-15] MEDS: COLLAGENASE 30 GM TUBE TOP SCH (14:07)
--- NOTE | 2016-10-15 19:31 | RADRPT ---
PROCEDURE: Renal US. CLINICAL INDICATION: Acute kidney injury. TECHNIQUE: Multiple sonographic images of the kidneys and urinary bladder were obtained. The imag es were reviewed on a PACS workstation. COMPARISON: No prior studies are available for comparison. FINDINGS: The right kidney measures 10.2 x 5.4 x 7.0 cm. The left kidney measures 11.4 x 5.1 x 4.6 cm. There is no renal mass. There is no hydronephrosis. There are multiple bilateral renal calculi with the largest on the right measuring 2.7 cm and the la rgest on the left measuring 1.7 cm. Renal parenchymal thickness and echogenicity is normal bilaterally. The perirenal regions are normal with no fluid collection or mass. There is a Joel catheter in the bladder. Incidental note is made of hepatomegaly. IMPRESSION: 1. Multiple large bilateral renal calculi. 2. No hydronephrosis. 3. Joel catheter in the bladder. 4. Hepatomegaly. RPTAT: QQ .Bryant Naik MD, MD Date Time Electronically viewed and signed by .Bryant Naik MD, MD on 10/15/2016 19:31 .R/
[2016-10-15] MEDS: ATORVASTATIN 40 MG TAB GTB SCH (21:21)
[2016-10-15 22:38] LABS: HEMATOCRIT 30.4 % (37.0-47.0)
[2016-10-16] VITALS (42 sets, daily range): BP systolic 86–143; BP diastolic 46–81; PULSE 65–95; RESP 13–17
[2016-10-16] MEDS: INSULIN ASPART [NOVOLOG] 3 ML PEN SC SCH ×6 (01:17→20:22)
[2016-10-16] MEDS: ACCUCHECK AT 2AM (Patients on SS coverage) XX SCH (02:14)
[2016-10-16] MEDS: PANTOPRAZOLE 40 MG INJ IV SCH (05:37)
[2016-10-16 05:46] LABS: POTASSIUM 4.4 mmol/L (3.5-5.1)
[2016-10-16 05:49] LABS: CREATININE 3.47 mg/dl (0.44-1.00)
[2016-10-16 05:50] LABS: CALCIUM 10.2 mg/dl (8.4-10.2)
[2016-10-16 05:54] LABS: HEMATOCRIT 27.7 % (37.0-47.0); HEMOGLOBIN 9.3 g/dl (12.0-16.0); MEAN CORPUSCULAR HEMOGLOBIN 28.1 pg (29.0-33.0); MEAN CORPUSCULAR HGB CONC 33.5 g/dl (32.0-37.0); MEAN CORPUSCULAR VOLUME 83.9 fl (82.0-101.0); MEAN PLATELET VOLUME 10.3 fl (7.4-10.4); PLATELET COUNT 187 10^3/UL (140-440); RED BLOOD COUNT 3.31 10^6/ul (4.20-5.40); RED CELL DISTRIBUTION WIDTH 15.3 % (11.5-14.5)
[2016-10-16 07:15] LABS: CONDITION 1; LH ANALYZER COMMENTS 1; SUSPECT 1; UNCORRECTED WBC 16.6 10^3/ul (4.8-10.8); WHITE BLOOD COUNT 3.8 10^3/ul (4.8-10.8)
[2016-10-16] MEDS: METOPROLOL 25 MG TAB GTB SCH ×2 (09:00→20:42)
[2016-10-16] MEDS ORDERED: CEFEPIME 1GM/50 ML (PMX) 50 ML IVPB SCH (09:00)
[2016-10-16] MEDS: TIGECYCLINE 50 MG in SOD CHLORIDE 0.9% 100 ML IVPB SCH ×2 (09:15→20:18)
[2016-10-16] MEDS: LORATADINE 10 MG TAB GTB SCH (09:15)
[2016-10-16] MEDS: ZINC SULFATE 220 MG CAP GTB SCH (09:15)
[2016-10-16] MEDS: FISH OIL 1,000 MG CAP PO SCH ×2 (09:15→20:17)
[2016-10-16] MEDS: BACLOFEN 10 MG TAB GTB SCH ×3 (09:16→20:17)
[2016-10-16] MEDS: GEMFIBROZIL 600 MG TAB GTB SCH ×2 (09:16→20:17)
[2016-10-16] MEDS: MAGNESIUM OXIDE 400 MG TAB GTB SCH ×2 (09:16→20:17)
[2016-10-16] MEDS: INSULIN DETEMIR [LEVEMIR] 3ML CART SC SCH (09:18)
[2016-10-16] MEDS: COLLAGENASE 30 GM TUBE TOP SCH (09:31)
[2016-10-16 09:47] LABS: EOSINOPHILS # 0.1 10^3/ul (0.0-0.5); LYMPHOCYTES # 0.5 10^3/ul (0.8-2.9); MONOCYTE # 0.2 10^3/ul (0.3-0.9); NEUTROPHIL # 2.6 10^3/ul (1.6-7.5)
[2016-10-16 09:48] LABS: ANISOCYTOSIS 1+; HYPOCHROMASIA 1+
--- NOTE | 2016-10-16 10:20 | PN ---
DATE: 10/16/2016 SUBJECTIVE DATA: The patient remains stable. Not on any pressors. The patient remains afebrile. OBJECTIVE DATA: VITAL SIGNS: Temperature 98.0, pulse rate 60, respiratory rate 16, blood pressure 97/49, oxygen saturation 100% on 30% FIO2 via mechanical ventilator. GENERAL: This is a 56-year-old female lying in bed in no apparent distress. HEENT: Head normocephalic and atraumatic. Eyes: Anicteric sclerae. Conjunctivae clear. ENT: Nasal septum is midline. Oral mucosa is dry. NECK: Tracheostomy in midline. RESPIRATORY: Bilaterally diminished breath sounds. A tracheostomy connected to mechanical ventilation. On AC mode ventilation. CARDIAC: Regular rate and rhythm. No obvious murmurs heard. ABDOMEN: Soft, nontender. Left upper quadrant G-tube in place. GENITOURINARY: Deferred. EXTREMITIES: No cyanosis, no clubbing, no edema. Peripheral pulses palpable. Splint, dressing on the left upper extremity. NEUROLOGIC: The patient is obtunded. Flaccid bilateral lower extremities and upper extremities. LABORATORY AND DIAGNOSTIC DATA: WBC 3.8, hemoglobin 9.3, hematocrit 27.7, platelet count 187. Sodium 146, potassium 4.4, chloride 107, carbon dioxide 21 , anion gap 22, BUN 114, creatinine 3.47, glucose 193, calcium 10.2, phosphorus 6.5, magnesium 2.9. ASSESSMENT AND PLAN: 1. Sepsis with underlying septic shock. Etiology unclear. The patient on antibiotics as per infectious diseases. Blood culture is negative so far. Influenza A and B negative. Pending urine cultures. 2. Acute on chronic kidney disease. Nonoliguric. Nephrology following. Avoid nephrotoxins. 3. Normocytic anemia. Etiology unclear. Status post 2 units of PRBC transfusion. Continue proton pump inhibitors. 4. Hyperkalemia. Most probably secondary to worsening renal function. Resolved. 5. Chronic respiratory failure. Vent-dependent. Pulmonary following the patient. Continue inhaled bronchodilators. 6. Dyslipidemia. Continue anti-lipemic medications. 7. Multiple sclerosis. Continue supportive care. 8. Multiple pressure ulcers. Continue local wound care. 9. Fluid, electrolytes and nutrition. Continue G-tube feedings. 10. Deep venous thrombosis prophylaxis. Contraindicated because of underlying anemia. 11. Gastrointestinal prophylaxis, proton pump inhibitors. DISPOSITION/PLAN: Continue antibiotics. Await further cultures. The patient is clinically stable to be transferred out of intensive care unit. However, the patient's Code Status may need to be addressed. The patient has multiple comorbidities and the quality of life is very poor. Case discussed with Dr. Perkins. Critical care time 35 minutes. MAXIMILIANO PERKINS MD, AM/HERI Conf#: [id number] DID#: [id number]
--- NOTE | 2016-10-16 11:19 | CONS ---
Date/Time of Note Date/Time of Note DATE: 10/16/16 TIME: 10:49 Assessment/Plan Assessment/Plan Chief Complaint/Hosp Course ID PROGRESS NOTE CURRENT ABX=> Tygacil + Azactam #1 + Fosfomycin x1 10/16 24H INTERVAL SUMMARY * Non-communicative on the Vent, Afebrile x 48H, WBC down * (-)MRSA screen, (-)Influenza A/B DIAGNOSTIC IMAGING 10/15/16 * CXR: IMPRESSION:1. Tracheostomy tube. 2. Mild pulmonary vascular congestion.3. Persistent mild left pleural effusion with basilar atelectasis and/or infiltrate. * RENAL RIC: IMPRESSION:1. Multiple large bilateral renal calculi.2. No hydronephrosis.3. Joel catheter in the bladder.4. Hepatomegaly. PHYSICAL EXAMINATION: GENERAL: 56 yo F, encephalopathic SKIN: Without generalized rash HEENT: Unremarkable NECK: Trach -> Vent CHEST: Decreased breath sounds at the bases. HEART: Tachy ABDOMEN: Soft EXTREMITIES: Warm, ID ASSESSMENT 56 yo F w/PMHx Multiple Sclerosis, VDRF-Trach, Neurogenic bladder, DMT2, Chronic decubs admit from SNF with: 1. Shock w/hypotension on admission -> due to hypovolemia (dehydration + anemia ) and early SEPSIS 2. SIRS/Early sepsis w/Tmax 100.3, transient hypotension, no leukocytosis 3. Complicated UTI per UA 3+Leukocyte Esterase w/many bacteria -> Urine cx pending 4. Multiple bilateral renal calculi with the largest on the right measuring 2.7 cm and the largest on the left measuring 1.7 cm. 5. Symptomatic normocytic anemia -> Status post 2 units of PRBC transfusion. 6. Hx of GIB per notes 7. Acute on chronic kidney disease ABX ALLERGIES: PCN, C-SPORINS, F-QUINOLONES, VANCO CURRENT ABX: Tygacil + Azactam + Fosfomycin po x1 today ID RECOMMENDATIONS 1. Patient w/multiple ABX allergies started on Tygacil; however Tygacil has poor penetration into the urine and does not cover PSAR 2. Will give Azactam (PSAR coverage) + Fosfomycin to cover concern UTI 3. ?Unclear if UA 10/15 was sent for urine cx ? - checking on that . . Problems: Consultation Date/Type/Reason Admit Date/Time Oct 15, 2016 at 01:39 Initial Consult Date Exam/Review of Systems Vital Signs Vitals Vital Signs Date Time Temp Pulse Resp B/P Pulse Ox O2 Delivery O2 Flow Rate FiO2 10/16/16 09:54 30 10/16/16 09:00 70 16 92/49 100 Mechanical Ventilator 10/16/16 08:00 97.6 Intake and Output 10/15/16 10/15/16 10/16/16 15:00 23:00 07:00 Intake Total 650 ml 1150 ml 600 ml Output Total 460 ml 340 ml 140 ml Balance 190 ml 810 ml 460 ml Results Result Diagram: 10/16/16 0506 10/16/16 0506 Results 24 hrs Laboratory Tests Test 10/15/16 12:37 10/15/16 17:44 10/15/16 21:04 10/15/16 22:16 Bedside Glucose 229 H 239 H 229 H Hematocrit 30.4 #L Hemoglobin 10.0 #L Test 10/16/16 01:14 10/16/16 05:05 10/16/16 05:06 10/16/16 05:32 Bedside Glucose 219 214 Phosphorus Level 6.5 H Anion Gap 22 H Anisocytosis 1+ Band Neutrophils % 10.0 H Basophils # 0.0 Basophils % 1.0 Blood Morphology Comment Blood Urea Nitrogen 114 H Calcium Level 10.2 Carbon Dioxide Level 21 Chloride Level 107 Creatinine 3.47 H Differential Comment MANUAL DIFF Eosinophils # 0.1 Eosinophils % 3.0 Giant Platelets RARE Glucose Level 193 # Hematocrit 27.7 L Hemoglobin 9.3 L Hypochromasia 1+ Lymphocytes # 0.5 L Lymphocytes % 13.0 L Magnesium Level 2.9 H Mean Corpuscular Hemoglobin 28.1 L Mean Corpuscular Hemoglobin Concent 33.5 Mean Corpuscular Volume 83.9 Mean Platelet Volume 10.3 Monocytes # 0.2 L Monocytes % 4.0 Myelocytes # 0.0 Myelocytes % 1.0 H Neutrophils # 2.6 Neutrophils % 68.0 Nucleated Red Blood Cells # Nucleated Red Blood Cells % Platelet Count 187 Potassium Level 4.4 Red Blood Count 3.31 #L Red Cell Distribution Width 15.3 H Sodium Level 146 H White Blood Count 3.8 #L Test 10/16/16 09:14 Bedside Glucose 157 Medications Medications Current Medications Ondansetron HCl (Zofran Inj) 4 mg Q6H PRN IV NAUSEA AND/OR VOMITING; Start at 02:00 Nitroglycerin (Nitroglycerin (Sl Tab) 0.4 Mg) 1 tab Q5M PRN SL CHEST PAIN; Start 10/15/16 at 02:00 Acetaminophen (Tylenol Supp) 650 mg Q4H PRN FL PAIN LEVEL 1-3 OR FEVER; Start 10/15/16 at 02:00 Lorazepam (Ativan) 1 mg Q2H PRN IV ANXIETY; Start 10/15/16 at 02:00 Pantoprazole (Protonix Iv) 40 mg DAILY@06 IV Last administered on 10/16/16 05: 37; Admin Dose 40 MG; Start 10/15/16 at 06:00 Atorvastatin Calcium (Lipitor) 40 mg QHS GTB Last administered on 10/15/16 21: 21; Admin Dose 40 MG; Start 10/15/16 at 21:00 Baclofen (Lioresal) 20 mg TID GTB Last administered on 10/16/16 09:16; Admin Dose 20 MG; Start 10/15/16 at 09:00 Clonidine (Catapres) 0.1 mg Q8 GTB ; Start 10/15/16 at 06:00 Diphenhydramine HCl (Benadryl Liquid Cup) 25 mg Q4H PRN GTB ITCHING; Start at 01:45 Gemfibrozil (Lopid) 600 mg BID GTB Last administered on 10/16/16 09:16; Admin Dose 600 MG; Start 10/15/16 at 09:00 Insulin Detemir (Levemir) 40 unit QAM SC Last administered on 10/16/16 09:18; Admin Dose 40 UNIT; Start 10/15/16 at 09:00 Loratadine (Claritin) 10 mg DAILY GTB Last administered on 10/16/16 09:15; Admin Dose 10 MG; Start 10/15/16 at 09:00 Magnesium Oxide (Mag-Ox 400) 400 mg BID GTB Last administered on 10/16/16 09: 16; Admin Dose 400 MG; Start 10/15/16 at 09:00 Metoprolol Tartrate (Lopressor) 25 mg BID GTB ; Start 10/15/16 at 09:00 Simethicone (Mylicon) 160 mg DAILY GTB Last administered on 10/16/16 09:16; Admin Dose 160 MG; Start 10/15/16 at 09:00 Zinc Sulfate (Zinc Sulfate) 220 mg DAILY GTB Last administered on 10/16/16 09: 15; Admin Dose 220 MG; Start 10/15/16 at 09:00 Fish Oil 1000 mg 1,000 mg BID PO Last administered on 10/16/16 09:15; Admin Dose 1,000 MG; Start 10/15/16 at 09:00 Tigecycline/ Sodium Chloride (Tygacil/NS) 100 ml @ 200 mls/hr Q12 IVPB Last administered on 10/16/16 09:15; Admin Dose 200 MLS/HR; Start 10/15/16 at 09:00 Miscellaneous Information 1 ea NOTE XX ; Start 10/15/16 at 02:00 Glucose (Glutose) 15 gm Q15M PRN PO DECREASED GLUCOSE; Start 10/15/16 at 02:00 Glucose (Glutose) 22.5 gm Q15M PRN PO DECREASED GLUCOSE; Start 10/15/16 at 02: 00 Dextrose (D50w Syringe) 25 ml Q15M PRN IV DECREASED GLUCOSE; Start 10/15/16 at 02:00 Dextrose (D50w Syringe) 50 ml Q15M PRN IV DECREASED GLUCOSE; Start 10/15/16 at 02:00 Glucagon (Glucagen) 1 mg Q15M PRN IM DECREASED GLUCOSE; Start 10/15/16 at 02:00 Glucose (Glutose) 15 gm Q15M PRN BUCCAL DECREASED GLUCOSE; Start 10/15/16 at 02 :00 Diagnostic Test (Pha) (Accucheck) 1 ea 02 XX Last administered on 10/16/16 02: 14; Admin Dose 1 EA; Start 10/16/16 at 02:00 Insulin Aspart (Novolog Insulin Pen) NOVOLOG *MILD* ALGORI... Q4 SC Last administered on 10/16/16 09:19; Admin Dose 1 UNIT; Start 10/15/16 at 09:00 Collagenase 1 applic 1 applic DAILY TOP Last administered on 10/16/16 09:31; Admin Dose 1 APPLIC; Start 10/15/16 at 12:00 Cefepime HCl (Maxipime 1gm/50 ml (Pmx)) 50 ml @ 100 mls/hr DAILY IVPB ; Start 10/16/16 at 09:00; Status Future Hold REI BECK NP Oct 16, 2016 11:01
--- NOTE | 2016-10-16 13:03 | CONS ---
Date/Time of Note Date/Time of Note DATE: 10/16/16 TIME: 13:01 Consult Date/Type/Reason Admit Date/Time Oct 15, 2016 at 01:39 Initial Consult Date Type of Consultation: pulmonary Subjective Remains comfortable on mechanical ventilation No longer requiring vasopressors currently hemodynamically stable FiO2 at 40% Objective Vital Signs Date Time Temp Pulse Resp B/P Pulse Ox O2 Delivery O2 Flow Rate FiO2 10/16/16 12:49 73 16 100 30 10/16/16 11:00 136/64 Mechanical Ventilator 10/16/16 08:00 97.6 Intake and Output 10/15/16 10/15/16 10/16/16 15:00 23:00 07:00 Intake Total 650 ml 1150 ml 600 ml Output Total 460 ml 340 ml 140 ml Balance 190 ml 810 ml 460 ml PHYSICAL EXAMINATION: GENERAL: Chronically ill-appearing lady. Eyes open, but not following commands or making eye contact. VITAL SIGNS: As above NECK: Supple. No JVD or lymphadenopathy. CARDIAC: S1, S2, no added sounds or murmurs. CHEST: Diminished air entry bilaterally. ABDOMEN: Soft, nontender. No guarding or rebound. EXTREMITIES: No cyanosis, clubbing. Edema +1. NEUROLOGIC: Unable to assess. SKIN: Multiple decubitus ulcers widespread was noted by nursing staff. Results/Medications Result Diagram: 10/16/16 0506 10/16/16 0506 Results 24 hrs Laboratory Tests Test 10/15/16 17:44 10/15/16 21:04 10/15/16 22:16 10/16/16 01:14 Bedside Glucose 239 H 229 H 219 Hematocrit 30.4 #L Hemoglobin 10.0 #L Test 10/16/16 05:05 10/16/16 05:06 10/16/16 05:32 10/16/16 09:14 Phosphorus Level 6.5 H Anion Gap 22 H Anisocytosis 1+ Band Neutrophils % 10.0 H Basophils # 0.0 Basophils % 1.0 Blood Morphology Comment Blood Urea Nitrogen 114 H Calcium Level 10.2 Carbon Dioxide Level 21 Chloride Level 107 Creatinine 3.47 H Differential Comment MANUAL DIFF Eosinophils # 0.1 Eosinophils % 3.0 Giant Platelets RARE Glucose Level 193 # Hematocrit 27.7 L Hemoglobin 9.3 L Hypochromasia 1+ Lymphocytes # 0.5 L Lymphocytes % 13.0 L Magnesium Level 2.9 H Mean Corpuscular Hemoglobin 28.1 L Mean Corpuscular Hemoglobin Concent 33.5 Mean Corpuscular Volume 83.9 Mean Platelet Volume 10.3 Monocytes # 0.2 L Monocytes % 4.0 Myelocytes # 0.0 Myelocytes % 1.0 H Neutrophils # 2.6 Neutrophils % 68.0 Nucleated Red Blood Cells # Nucleated Red Blood Cells % Platelet Count 187 Potassium Level 4.4 Red Blood Count 3.31 #L Red Cell Distribution Width 15.3 H Sodium Level 146 H White Blood Count 3.8 #L Bedside Glucose 214 157 Test 10/16/16 12:57 Bedside Glucose 214 Medications Current Medications Ondansetron HCl (Zofran Inj) 4 mg Q6H PRN IV NAUSEA AND/OR VOMITING; Start at 02:00 Nitroglycerin (Nitroglycerin (Sl Tab) 0.4 Mg) 1 tab Q5M PRN SL CHEST PAIN; Start 10/15/16 at 02:00 Acetaminophen (Tylenol Supp) 650 mg Q4H PRN [place] PAIN LEVEL 1-3 OR FEVER; Start 10/15/16 at 02:00 Lorazepam (Ativan) 1 mg Q2H PRN IV ANXIETY; Start 10/15/16 at 02:00 Pantoprazole (Protonix Iv) 40 mg DAILY@06 IV Last administered on 10/16/16 05: 37; Admin Dose 40 MG; Start 10/15/16 at 06:00 Atorvastatin Calcium (Lipitor) 40 mg QHS GTB Last administered on 10/15/16 21: 21; Admin Dose 40 MG; Start 10/15/16 at 21:00 Baclofen (Lioresal) 20 mg TID GTB Last administered on 10/16/16 13:00; Admin Dose 20 MG; Start 10/15/16 at 09:00 Clonidine (Catapres) 0.1 mg Q8 GTB ; Start 10/15/16 at 06:00 Diphenhydramine HCl (Benadryl Liquid Cup) 25 mg Q4H PRN GTB ITCHING; Start at 01:45 Gemfibrozil (Lopid) 600 mg BID GTB Last administered on 10/16/16 09:16; Admin Dose 600 MG; Start 10/15/16 at 09:00 Insulin Detemir (Levemir) 40 unit QAM SC Last administered on 10/16/16 09:18; Admin Dose 40 UNIT; Start 10/15/16 at 09:00 Loratadine (Claritin) 10 mg DAILY GTB Last administered on 10/16/16 09:15; Admin Dose 10 MG; Start 10/15/16 at 09:00 Magnesium Oxide (Mag-Ox 400) 400 mg BID GTB Last administered on 10/16/16 09: 16; Admin Dose 400 MG; Start 10/15/16 at 09:00 Metoprolol Tartrate (Lopressor) 25 mg BID GTB ; Start 10/15/16 at 09:00 Simethicone (Mylicon) 160 mg DAILY GTB Last administered on 10/16/16 09:16; Admin Dose 160 MG; Start 10/15/16 at 09:00 Zinc Sulfate (Zinc Sulfate) 220 mg DAILY GTB Last administered on 10/16/16 09: 15; Admin Dose 220 MG; Start 10/15/16 at 09:00 Fish Oil 1000 mg 1,000 mg BID PO Last administered on 10/16/16 09:15; Admin Dose 1,000 MG; Start 10/15/16 at 09:00 Tigecycline/ Sodium Chloride (Tygacil/NS) 100 ml @ 200 mls/hr Q12 IVPB Last administered on 10/16/16 09:15; Admin Dose 200 MLS/HR; Start 10/15/16 at 09:00 Miscellaneous Information 1 ea NOTE XX ; Start 10/15/16 at 02:00 Glucose (Glutose) 15 gm Q15M PRN PO DECREASED GLUCOSE; Start 10/15/16 at 02:00 Glucose (Glutose) 22.5 gm Q15M PRN PO DECREASED GLUCOSE; Start 10/15/16 at 02: 00 Dextrose (D50w Syringe) 25 ml Q15M PRN IV DECREASED GLUCOSE; Start 10/15/16 at 02:00 Dextrose (D50w Syringe) 50 ml Q15M PRN IV DECREASED GLUCOSE; Start 10/15/16 at 02:00 Glucagon (Glucagen) 1 mg Q15M PRN IM DECREASED GLUCOSE; Start 10/15/16 at 02:00 Glucose (Glutose) 15 gm Q15M PRN BUCCAL DECREASED GLUCOSE; Start 10/15/16 at 02 :00 Diagnostic Test (Pha) (Accucheck) 1 ea 02 XX Last administered on 10/16/16 02: 14; Admin Dose 1 EA; Start 10/16/16 at 02:00 Insulin Aspart (Novolog Insulin Pen) NOVOLOG *MILD* ALGORI... Q4 SC Last administered on 10/16/16 13:00; Admin Dose 2 UNIT; Start 10/15/16 at 09:00 Collagenase (Santyl) 1 applic DAILY TOP Last administered on 10/16/16 09:31; Admin Dose 1 APPLIC; Start 10/15/16 at 12:00 Fosfomycin Tromethamine 3 gm 3 gm ONCE ONCE PO ; Start 10/16/16 at 14:00; Stop 10/16/16 at 14:01 Aztreonam (Azactam 1gm/NS (Pmx)) 50 ml @ 100 mls/hr Q12 IVPB ; Start 10/16/16 at 12:30 Assessment/Plan Chief Complaint/Hosp Course IMPRESSION AND PLAN: 1. Vent dependent respiratory failure. 2. Chronic encephalopathy 3. Dysphagia with G-tube. 4. Status post Severe septic shock, likely polymicrobial. 5. Dysphagia with G-tube. PLAN: 1. Continue vent support. 2. Status post Transfusion of packed red blood cells. 3. Vasopressors as needed 4. Continue broad-spectrum antibiotics pending cultures. 5. DVT and GI prophylaxis. 6. Wound care. Agree with transfer to telemetry Problems: ULYSSES FORRESTER [facility], [facility] Oct 16, 2016 13:03
[2016-10-16] MEDS ORDERED: FOSFOMYCIN 3 GM PACKET PO ONE (14:00)
[2016-10-16] MEDS ORDERED: ALBUTEROL/IPRATROPIUM (NEB) 3 ML AMP HHN SCH (14:00)
[2016-10-16] MEDS: AZTREONAM 1 GM/NS (PMX) 50 ML IVPB SCH ×2 (14:18→21:23)
[2016-10-16] MEDS: IPRATROPIUM (HFA) 12.9 GM INHALER INH SCH ×2 (14:23→19:30)
[2016-10-16] MEDS: ALBUTEROL HFA 8 GM INHALER INH SCH ×2 (14:23→19:30)
--- NOTE | 2016-10-16 15:09 | PN ---
DATE: 10/16/2016 SUBJECTIVE: The patient remains critically ill on full ventilatory support. Currently, off pressor s. Blood pressures are stable, no other acute events noted. No hemoptysis, hematemesis, hematochez ia. OBJECTIVE: VITAL SIGNS: Blood pressure is 97/49, respiratory rate is , temperature 98.6. INTAKE AND OUTPUT: The patient had 2.4 liters in, 1 liter out. HEENT: Head is normocephalic. NECK: Shows a trach. HEART: Regular rate. LUNGS: Show diminished breath sounds at base. ABDOMEN: Soft, nontender to palpation without rebound or guarding. EXTREMITIES: Negative for clubbing, cyanosis, no edema. DERMATOLOGIC: No rashes. MUSCULOSKELETAL: No joint effusions. NEUROLOGIC: No change in exam. MEDICATIONS: The patient's medications have been reviewed. LABORATORY DATA: Shows sodium 146, potassium 4.4, chloride 107, BUN 114, creatinine 3.47, magnesium 2.9, phosphorus 6.5. White count is 3.8, hemoglobin 9.3, hematocrit 27.7, platelet count 186. Uri nalysis shows greater than 200 WBCs and bacteria, +2 proteinuria. IMAGING: Renal ultrasound showed bilateral renal calculi, no hydronephrosis, hepatomegaly. ASSESSMENT AND PLAN: 1. Nonoliguric acute kidney injury on top of chronic kidney disease with unknown baseline creatinin e. Etiology of acute kidney injury is multifactorial secondary to sepsis, hemodynamics, possible tu bular injury. The patient's urinalysis shows pyuria, suggestive of a urinary tract infection, prote inuria is also noted. Renal ultrasound shows no hydronephrosis, positive bilateral renal calculi, n onobstructive. The plan at this point is to continue current treatment plan, continue supportive ca re, renally dose all meds, continue IV antibiotics. Will discontinue IV fluids at this time as the patient appears volume replete. We will also try to obtain old medical records to communicate with the patient's family regarding the patient's baseline renal function and overall goals of care. At this point, there is no immediate need for renal replacement therapy. We will continue to monitor c losely. 2. Hyperkalemia secondary to acute kidney injury, improved. Continue current medical management. 3. Anemia. The patient is status post transfusion, status post Epogen. Continue to monitor hemogl obin and hematocrit levels. 4. Mineral bone disorder. The patient's phosphorus levels remain elevated. We will consider his p hosphate binders, calcium levels have improved. PTH levels are currently pending. 5. Sepsis secondary to pneumonia, decubitus wounds, will continue current antibiotic regimen. 6. Diabetes, continue Accu-Cheks and sliding scale. 7. Dyslipidemia. Continue statin therapy. 8. Ventilator dependent respiratory failure. Vent settings have been reviewed. ABG has been revie wed. Continue to monitor. 9. Dysphagia. Status post percutaneous endoscopic gastrostomy tube. Continue tube feeding. 10. Multiple decubitus wounds, continue wound care. 11. History of multiple sclerosis. 12. Acute on chronic encephalopathy due to anoxic brain injury, underlying mass. Continue to monito r. Dictated By: JANETH WALLACE/HERI Conf#: [id number] DID#: [id number]
[2016-10-16] MEDS: ATORVASTATIN 40 MG TAB GTB SCH (20:17)
[2016-10-17] VITALS (34 sets, daily range): BP systolic 91–162; BP diastolic 47–86; PULSE 62–94; RESP 15–16
[2016-10-17] MEDS: INSULIN ASPART [NOVOLOG] 3 ML PEN SC SCH ×6 (01:02→20:52)
[2016-10-17] MEDS: ALBUTEROL HFA 8 GM INHALER INH SCH ×5 (01:20→19:27)
[2016-10-17] MEDS: ACCUCHECK AT 2AM (Patients on SS coverage) XX SCH (02:00)
[2016-10-17] MEDS: PANTOPRAZOLE 40 MG INJ IV SCH (05:13)
[2016-10-17 06:43] LABS: POTASSIUM 4.1 mmol/L (3.5-5.1)
[2016-10-17 06:44] LABS: BASOPHILS % 0.2 % (0.0-2.0); EOSINOPHILS # 0.5 10^3/ul (0.0-0.5); EOSINOPHILS % 9.1 % (0.0-7.0); HEMOGLOBIN 8.8 g/dl (12.0-16.0); LYMPHOCYTES # 1.1 10^3/ul (0.8-2.9); LYMPHOCYTES % 23.1 % (15.0-51.0); MEAN CORPUSCULAR HEMOGLOBIN 28.6 pg (29.0-33.0); MEAN CORPUSCULAR VOLUME 84.2 fl (82.0-101.0); MEAN PLATELET VOLUME 10.2 fl (7.4-10.4); MONOCYTE # 0.3 10^3/ul (0.3-0.9); NEUTROPHILS % 60.6 % (39.0-77.0); PLATELET COUNT 201 10^3/UL (140-440); RED BLOOD COUNT 3.09 10^6/ul (4.20-5.40); RED CELL DISTRIBUTION WIDTH 15.9 % (11.5-14.5)
[2016-10-17 06:46] LABS: CREATININE 3.06 mg/dl (0.44-1.00)
[2016-10-17 06:47] LABS: CALCIUM 9.7 mg/dl (8.4-10.2); MAGNESIUM 2.8 mg/dl (1.7-2.5); PHOSPHORUS 6.2 mg/dl (2.5-4.9)
[2016-10-17 06:54] LABS: CONDITION 1; LH ANALYZER COMMENTS 1
[2016-10-17] MEDS: AZTREONAM 1 GM/NS (PMX) 50 ML IVPB SCH ×2 (08:18→20:31)
[2016-10-17] MEDS: TIGECYCLINE 50 MG in SOD CHLORIDE 0.9% 100 ML IVPB SCH ×2 (08:18→20:31)
[2016-10-17] MEDS: FISH OIL 1,000 MG CAP PO SCH ×2 (08:19→20:31)
[2016-10-17] MEDS: GEMFIBROZIL 600 MG TAB GTB SCH ×2 (08:19→20:31)
[2016-10-17] MEDS: BACLOFEN 10 MG TAB GTB SCH ×3 (08:19→20:31)
[2016-10-17] MEDS: LORATADINE 10 MG TAB GTB SCH (08:20)
[2016-10-17] MEDS: ZINC SULFATE 220 MG CAP GTB SCH (08:20)
[2016-10-17] MEDS: COLLAGENASE 30 GM TUBE TOP SCH (08:22)
[2016-10-17] MEDS: INSULIN DETEMIR [LEVEMIR] 3ML CART SC SCH (08:23)
[2016-10-17] MEDS: IPRATROPIUM (HFA) 12.9 GM INHALER INH SCH ×3 (08:30→19:25)
[2016-10-17] MEDS: METOPROLOL 25 MG TAB GTB SCH ×3 (09:00→21:00)
--- NOTE | 2016-10-17 11:12 | CONS ---
Date/Time of Note Date/Time of Note DATE: 10/17/16 TIME: 11:10 Consult Date/Type/Reason Admit Date/Time Oct 15, 2016 at 01:39 Type of Consultation: pulmonary Subjective Patient stable overnight no new events Continues mechanical ventilation Remains hemodynamically stable tolerating G-tube feeding Objective Vital Signs Date Time Temp Pulse Resp B/P Pulse Ox O2 Delivery O2 Flow Rate FiO2 10/17/16 11:00 74 16 130/83 100 10/17/16 10:00 Mechanical Ventilator 10/17/16 09:30 30 10/17/16 07:00 98.1 Intake and Output 10/16/16 10/16/16 10/17/16 15:00 23:00 07:00 Intake Total 950 ml 750 ml 600 ml Output Total 455 ml 680 ml 285 ml Balance 495 ml 70 ml 315 ml PHYSICAL EXAMINATION: GENERAL: Chronically ill-appearing lady. Eyes open, but not following commands or making eye contact. VITAL SIGNS: As above NECK: Supple. No JVD or lymphadenopathy. CARDIAC: S1, S2, no added sounds or murmurs. CHEST: Diminished air entry bilaterally. ABDOMEN: Soft, nontender. No guarding or rebound. EXTREMITIES: No cyanosis, clubbing. Edema +1. NEUROLOGIC: Unable to assess. SKIN: Multiple decubitus ulcers widespread was noted by nursing staff. Results/Medications Result Diagram: 10/17/16 0515 10/17/16 0515 Results 24 hrs Laboratory Tests Test 10/16/16 12:57 10/16/16 17:13 10/16/16 20:16 10/17/16 00:59 Bedside Glucose 214 201 195 202 Test 10/17/16 05:14 10/17/16 05:15 10/17/16 08:16 Bedside Glucose 231 H 239 H Anion Gap 21 H Basophils # 0.0 Basophils % 0.2 Blood Morphology Comment Blood Urea Nitrogen 114 H Calcium Level 9.7 Carbon Dioxide Level 22 Chloride Level 109 Creatinine 3.06 H Eosinophils # 0.5 Eosinophils % 9.1 H Glucose Level 210 Hematocrit 26.0 L Hemoglobin 8.8 L Lymphocytes # 1.1 Lymphocytes % 23.1 Magnesium Level 2.8 H Mean Corpuscular Hemoglobin 28.6 L Mean Corpuscular Hemoglobin Concent 34.0 Mean Corpuscular Volume 84.2 Mean Platelet Volume 10.2 Monocytes # 0.3 Monocytes % 7.0 Neutrophils # 3.0 Neutrophils % 60.6 Nucleated Red Blood Cells # 0.0 Nucleated Red Blood Cells % 0.0 Phosphorus Level 6.2 H Platelet Count 201 Potassium Level 4.1 Red Blood Count 3.09 L Red Cell Distribution Width 15.9 H Sodium Level 148 H White Blood Count 5.0 # Medications Current Medications Ondansetron HCl (Zofran Inj) 4 mg Q6H PRN IV NAUSEA AND/OR VOMITING; Start at 02:00 Nitroglycerin (Nitroglycerin (Sl Tab) 0.4 Mg) 1 tab Q5M PRN SL CHEST PAIN; Start 10/15/16 at 02:00 Acetaminophen (Tylenol Supp) 650 mg Q4H PRN [place] PAIN LEVEL 1-3 OR FEVER; Start 10/15/16 at 02:00 Lorazepam (Ativan) 1 mg Q2H PRN IV ANXIETY; Start 10/15/16 at 02:00 Pantoprazole (Protonix Iv) 40 mg DAILY@06 IV Last administered on 10/17/16 05: 13; Admin Dose 40 MG; Start 10/15/16 at 06:00 Atorvastatin Calcium (Lipitor) 40 mg QHS GTB Last administered on 10/16/16 20: 17; Admin Dose 40 MG; Start 10/15/16 at 21:00 Baclofen (Lioresal) 20 mg TID GTB Last administered on 10/17/16 08:19; Admin Dose 20 MG; Start 10/15/16 at 09:00 Clonidine (Catapres) 0.1 mg Q8 GTB ; Start 10/15/16 at 06:00 Diphenhydramine HCl (Benadryl Liquid Cup) 25 mg Q4H PRN GTB ITCHING; Start at 01:45 Gemfibrozil (Lopid) 600 mg BID GTB Last administered on 10/17/16 08:19; Admin Dose 600 MG; Start 10/15/16 at 09:00 Insulin Detemir (Levemir) 40 unit QAM SC Last administered on 10/17/16 08:23; Admin Dose 40 UNIT; Start 10/15/16 at 09:00 Loratadine (Claritin) 10 mg DAILY GTB Last administered on 10/17/16 08:20; Admin Dose 10 MG; Start 10/15/16 at 09:00 Metoprolol Tartrate (Lopressor) 25 mg BID GTB ; Start 10/15/16 at 09:00 Simethicone (Mylicon) 160 mg DAILY GTB Last administered on 10/17/16 08:19; Admin Dose 160 MG; Start 10/15/16 at 09:00 Zinc Sulfate (Zinc Sulfate) 220 mg DAILY GTB Last administered on 10/17/16 08: 20; Admin Dose 220 MG; Start 10/15/16 at 09:00 Fish Oil 1000 mg 1,000 mg BID PO Last administered on 10/17/16 08:19; Admin Dose 1,000 MG; Start 10/15/16 at 09:00 Tigecycline/ Sodium Chloride (Tygacil/NS) 100 ml @ 200 mls/hr Q12 IVPB Last administered on 10/17/16 08:18; Admin Dose 200 MLS/HR; Start 10/15/16 at 09:00 Miscellaneous Information 1 ea NOTE XX ; Start 10/15/16 at 02:00 Glucose (Glutose) 15 gm Q15M PRN PO DECREASED GLUCOSE; Start 10/15/16 at 02:00 Glucose (Glutose) 22.5 gm Q15M PRN PO DECREASED GLUCOSE; Start 10/15/16 at 02: 00 Dextrose (D50w Syringe) 25 ml Q15M PRN IV DECREASED GLUCOSE; Start 10/15/16 at 02:00 Dextrose (D50w Syringe) 50 ml Q15M PRN IV DECREASED GLUCOSE; Start 10/15/16 at 02:00 Glucagon (Glucagen) 1 mg Q15M PRN IM DECREASED GLUCOSE; Start 10/15/16 at 02:00 Glucose (Glutose) 15 gm Q15M PRN BUCCAL DECREASED GLUCOSE; Start 10/15/16 at 02 :00 Diagnostic Test (Pha) (Accucheck) 1 ea 02 XX Last administered on 10/16/16 02: 14; Admin Dose 1 EA; Start 10/16/16 at 02:00 Insulin Aspart (Novolog Insulin Pen) NOVOLOG *MILD* ALGORI... Q4 SC Last administered on 10/17/16 08:25; Admin Dose 3 UNIT; Start 10/15/16 at 09:00 Collagenase 1 applic 1 applic DAILY TOP Last administered on 10/17/16 08:22; Admin Dose 1 APPLIC; Start 10/15/16 at 12:00 Aztreonam (Azactam 1gm/NS (Pmx)) 50 ml @ 100 mls/hr Q12 IVPB Last administered on 10/17/16 08:18; Admin Dose 100 MLS/HR; Start 10/16/16 at 12:30 Assessment/Plan Chief Complaint/Hosp Course IMPRESSION AND PLAN: 1. Vent dependent respiratory failure. 2. Chronic encephalopathy 3. Dysphagia with G-tube. 4. Status post Severe septic shock, likely polymicrobial. 5. Dysphagia with G-tube. 6. Multiple decubitus ulcers PLAN: 1. Continue vent support. 2. Status post Transfusion of packed red blood cells. 3. Pulmonary toilet and bronchodilators 4. Continue broad-spectrum antibiotics pending cultures. 5. DVT and GI prophylaxis. 6. Wound care evaluation noted may require surgical debridement 7. G-tube feeding Agree with transfer to telemetry Problems: [facility], 2016 11:11
[2016-10-17] MEDS ORDERED: SEVELAMER 400 MG TAB PO SCH (11:30)
--- NOTE | 2016-10-17 12:43 | PN ---
DATE: 10/17/2016 SUBJECTIVE: The patient remains critically ill on ventilatory support. No other acute events noted overnight, no hemoptysis, hematemesis or hematochezia. OBJECTIVE: VITAL SIGNS: Blood pressure 94/54, respirations 16, pulse 60, temperature 98.1. HEENT: Head is normocephalic. NECK: Supple. HEART: Regular rate. LUNGS: Show diminished breath sounds at base. ABDOMEN: Soft, nontender to palpation. No rebound or guarding. EXTREMITIES: Negative for clubbing, cyanosis, no edema. DERMATOLOGIC: No rashes. MUSCULOSKELETAL: No joint effusions. NEUROLOGIC: No change in exam. MEDICATIONS: The patient's medications have been reviewed. LABORATORY DATA: Shows a sodium 148, potassium 4.1, chloride 109, BUN of 14, creatinine 3.06, phosp horus 6.2. White count 5.0, hemoglobin 8.8, hematocrit 26.0, platelet count is 201. ASSESSMENT AND PLAN: 1. Nonoliguric acute kidney injury on top of chronic kidney disease with unknown baseline creatinin e. Etiology of acute kidney injury is multifactorial secondary to sepsis, hemodynamics, possible tu bular injury. The patient's renal function appears to be overall stable. At this point, will lanie nue current treatment plan, supportive care, renally dose all meds, avoid nephrotoxins. 2. Hyperkalemia, improved. 3. Anemia. Continue to monitor hemoglobin and hematocrit levels. Give Epogen as needed. 4. Mineral bone disorder. The patient's phosphorus levels remain elevated. We will start phosphat e binders. 5. Sepsis secondary to pneumonia and decubitus wound. Continue current antibiotic regimen. 6. Diabetes, continue Accu-Cheks and sliding scale. 7. Sepsis. Continue statin therapy. 8. Ventilator dependent respiratory failure. Vent settings have been reviewed. ABG has been revie wed. Continue to monitor. 9. Dysphagia. Status post PEG. Continue tube feeding. 10. Decubitus wound. Continue wound care. 11. Acute on chronic encephalopathy. Continue to monitor, no change. Dictated By: JANETH BURRIS DO NR/NTS Conf#: [id number] DID#: [id number]
--- NOTE | 2016-10-17 13:02 | CONS ---
Date/Time of Note Date/Time of Note DATE: 10/17/16 TIME: 12:44 Assessment/Plan Assessment/Plan Chief Complaint/Hosp Course ID PROGRESS NOTE CURRENT ABX=> Tygacil + Azactam #1 + s/p Fosfomycin x1 10/16 Given Zosyn x1 & Cefepime x1 in ED? --Now with Allergy listed to both? 24H INTERVAL SUMMARY * Clincally status quo == NO FEVERS, Non-communicative on the Vent, WBC normalized * GNR * (-)MRSA screen, (-)Influenza A/B, multiple decubs * DIAGNOSTIC IMAGING 10/15/16 * CXR: IMPRESSION:1. Tracheostomy tube. 2. Mild pulmonary vascular congestion.3. Persistent mild left pleural effusion with basilar atelectasis and/or infiltrate. * RENAL RIC: IMPRESSION:1. Multiple large bilateral renal calculi.2. No hydronephrosis.3. Joel catheter in the bladder.4. Hepatomegaly. PHYSICAL EXAMINATION: GENERAL: 56 yo F, encephalopathic SKIN: Without generalized rash HEENT: Unremarkable NECK: Trach -> Vent CHEST: Decreased breath sounds at the bases. HEART: Tachy ABDOMEN: Soft EXTREMITIES: Warm SKIN: Multiple Decubs -> See photos ID ASSESSMENT 56 yo F w/PMHx Multiple Sclerosis, VDRF-Trach, Neurogenic bladder, DMT2, Chronic decubs admit from SNF with: 1. Shock w/hypotension on admission -> due to hypovolemia (dehydration + anemia ) and early SEPSIS 2. SIRS/Early sepsis w/Tmax 100.3, transient hypotension, no leukocytosis 3. Complicated UTI per UA 3+Leukocyte Esterase w/many bacteria -> Urine cx pending * 10/15/16 URINE CULTURE Preliminary GRAM NEGATIVE GILLES >100,000 CFU/ml 4. Multiple bilateral renal calculi with the largest on the right measuring 2.7 cm and the largest on the left measuring 1.7 cm. 5. Symptomatic normocytic anemia -> Status post 2 units of PRBC transfusion. 6. Hx of GIB per notes 7. Acute on chronic kidney disease 8. 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 * Left heel stage 2 pressure injury/Left marshall stage 2 ABX ALLERGIES: PCN, C-SPORINS, F-QUINOLONES, VANCO CURRENT ABX: Tygacil + Azactam + Fosfomycin po x1 today Given Zosyn x1 & Cefepime x1 in ED? --Now with Allergy listed to both? ID RECOMMENDATIONS 1. Pt w/multiple ABX allergies on Tygacil; however Tygacil has poor penetration into the urine and does not cover PSAR 2. Will give Azactam (PSAR coverage) + s/p Fosfomycin x1 10/16/16 to cover concern UTI 3. Urine was not sent for CX on admission -- 10/16/16 Urine Cx(-)24H 4. F/U on GNR urine and sputum both pending final ID . . Problems: Consultation Date/Type/Reason Admit Date/Time Oct 15, 2016 at 01:39 Type of Consultation: ID Exam/Review of Systems Vital Signs Vitals Vital Signs Date Time Temp Pulse Resp B/P Pulse Ox O2 Delivery O2 Flow Rate FiO2 10/17/16 12:00 66 10/17/16 11:54 16 100 30 10/17/16 11:00 130/83 10/17/16 10:00 Mechanical Ventilator 10/17/16 07:00 98.1 Intake and Output 10/16/16 10/16/16 10/17/16 15:00 23:00 07:00 Intake Total 950 ml 750 ml 600 ml Output Total 455 ml 680 ml 285 ml Balance 495 ml 70 ml 315 ml Results Result Diagram: 10/17/16 0515 10/17/16 0515 Results 24 hrs Laboratory Tests Test 10/16/16 12:57 10/16/16 17:13 10/16/16 20:16 10/17/16 00:59 Bedside Glucose 214 201 195 202 Test 10/17/16 05:14 10/17/16 05:15 10/17/16 08:16 Bedside Glucose 231 H 239 H Anion Gap 21 H Basophils # 0.0 Basophils % 0.2 Blood Morphology Comment Blood Urea Nitrogen 114 H Calcium Level 9.7 Carbon Dioxide Level 22 Chloride Level 109 Creatinine 3.06 H Eosinophils # 0.5 Eosinophils % 9.1 H Glucose Level 210 Hematocrit 26.0 L Hemoglobin 8.8 L Lymphocytes # 1.1 Lymphocytes % 23.1 Magnesium Level 2.8 H Mean Corpuscular Hemoglobin 28.6 L Mean Corpuscular Hemoglobin Concent 34.0 Mean Corpuscular Volume 84.2 Mean Platelet Volume 10.2 Monocytes # 0.3 Monocytes % 7.0 Neutrophils # 3.0 Neutrophils % 60.6 Nucleated Red Blood Cells # 0.0 Nucleated Red Blood Cells % 0.0 Phosphorus Level 6.2 H Platelet Count 201 Potassium Level 4.1 Red Blood Count 3.09 L Red Cell Distribution Width 15.9 H Sodium Level 148 H White Blood Count 5.0 # Medications Medications Current Medications Ondansetron HCl (Zofran Inj) 4 mg Q6H PRN IV NAUSEA AND/OR VOMITING; Start at 02:00 Nitroglycerin (Nitroglycerin (Sl Tab) 0.4 Mg) 1 tab Q5M PRN SL CHEST PAIN; Start 10/15/16 at 02:00 Acetaminophen (Tylenol Supp) 650 mg Q4H PRN [place] PAIN LEVEL 1-3 OR FEVER; Start 10/15/16 at 02:00 Lorazepam (Ativan) 1 mg Q2H PRN IV ANXIETY; Start 10/15/16 at 02:00 Pantoprazole (Protonix Iv) 40 mg DAILY@06 IV Last administered on 10/17/16 05: 13; Admin Dose 40 MG; Start 10/15/16 at 06:00 Atorvastatin Calcium (Lipitor) 40 mg QHS GTB Last administered on 10/16/16 20: 17; Admin Dose 40 MG; Start 10/15/16 at 21:00 Baclofen (Lioresal) 20 mg TID GTB Last administered on 10/17/16 08:19; Admin Dose 20 MG; Start 10/15/16 at 09:00 Clonidine (Catapres) 0.1 mg Q8 GTB ; Start 10/15/16 at 06:00 Diphenhydramine HCl (Benadryl Liquid Cup) 25 mg Q4H PRN GTB ITCHING; Start at 01:45 Gemfibrozil (Lopid) 600 mg BID GTB Last administered on 10/17/16 08:19; Admin Dose 600 MG; Start 10/15/16 at 09:00 Insulin Detemir (Levemir) 40 unit QAM SC Last administered on 10/17/16 08:23; Admin Dose 40 UNIT; Start 10/15/16 at 09:00 Loratadine (Claritin) 10 mg DAILY GTB Last administered on 10/17/16 08:20; Admin Dose 10 MG; Start 10/15/16 at 09:00 Metoprolol Tartrate (Lopressor) 25 mg BID GTB Last administered on 10/17/16 11 :16; Admin Dose 25 MG; Start 10/15/16 at 09:00 Simethicone (Mylicon) 160 mg DAILY GTB Last administered on 10/17/16 08:19; Admin Dose 160 MG; Start 10/15/16 at 09:00 Zinc Sulfate (Zinc Sulfate) 220 mg DAILY GTB Last administered on 10/17/16 08: 20; Admin Dose 220 MG; Start 10/15/16 at 09:00 Fish Oil 1000 mg 1,000 mg BID PO Last administered on 10/17/16 08:19; Admin Dose 1,000 MG; Start 10/15/16 at 09:00 Tigecycline/ Sodium Chloride (Tygacil/NS) 100 ml @ 200 mls/hr Q12 IVPB Last administered on 10/17/16 08:18; Admin Dose 200 MLS/HR; Start 10/15/16 at 09:00 Miscellaneous Information 1 ea NOTE XX ; Start 10/15/16 at 02:00 Glucose (Glutose) 15 gm Q15M PRN PO DECREASED GLUCOSE; Start 10/15/16 at 02:00 Glucose (Glutose) 22.5 gm Q15M PRN PO DECREASED GLUCOSE; Start 10/15/16 at 02: 00 Dextrose (D50w Syringe) 25 ml Q15M PRN IV DECREASED GLUCOSE; Start 10/15/16 at 02:00 Dextrose (D50w Syringe) 50 ml Q15M PRN IV DECREASED GLUCOSE; Start 10/15/16 at 02:00 Glucagon (Glucagen) 1 mg Q15M PRN IM DECREASED GLUCOSE; Start 10/15/16 at 02:00 Glucose (Glutose) 15 gm Q15M PRN BUCCAL DECREASED GLUCOSE; Start 10/15/16 at 02 :00 Diagnostic Test (Pha) (Accucheck) 1 ea 02 XX Last administered on 10/16/16 02: 14; Admin Dose 1 EA; Start 10/16/16 at 02:00 Insulin Aspart (Novolog Insulin Pen) NOVOLOG *MILD* ALGORI... Q4 SC Last administered on 10/17/16 08:25; Admin Dose 3 UNIT; Start 10/15/16 at 09:00 Collagenase 1 applic 1 applic DAILY TOP Last administered on 10/17/16 08:22; Admin Dose 1 APPLIC; Start 10/15/16 at 12:00 Aztreonam (Azactam 1gm/NS (Pmx)) 50 ml @ 100 mls/hr Q12 IVPB Last administered on 10/17/16 08:18; Admin Dose 100 MLS/HR; Start 10/16/16 at 12:30 REI BECK NP Oct 17, 2016 12:57
--- NOTE | 2016-10-17 13:40 | PN ---
Date/Time of Note Date/Time of Note DATE: 10/17/16 TIME: 13:37 Assessment/Plan VTE Prophylaxis VTE Prophylaxis Intervention: contraindicated Lines/Catheters IV Catheter Type (from [facility]): Peripheral IV Assessment/Plan Chief Complaint/Hosp Course 1. Sepsis with underlying septic shock 2/2 UTI -UCx shows Gram neg rods -ID on case cont Abx 2. Acute on chronic kidney disease. Nonoliguric. Nephrology following. Avoid nephrotoxins. 3. Normocytic anemia likely anemia of chronic disease Status post 2 units of PRBC transfusion. Continue proton pump inhibitors. 4. Hyperkalemia. Most probably secondary to worsening renal function. Resolved. 5. Chronic respiratory failure. Vent-dependent. Pulmonary following the patient. Continue inhaled bronchodilators. 6. Dyslipidemia. Continue anti-lipemic medications. 7. Advanced Multiple sclerosis. Continue supportive care. 8. Multiple pressure ulcers. Continue local wound care. 9. Fluid, electrolytes and nutrition. Continue G-tube feedings. 10. Deep venous thrombosis prophylaxis. Contraindicated because of underlying anemia. 11. Gastrointestinal prophylaxis, proton pump inhibitors. Problems: Subjective 24 Hr Interval Summary Subjective hx not possible: pt non-verbal Exam/Review of Systems Vital Signs Vitals Vital Signs Date Time Temp Pulse Resp B/P Pulse Ox O2 Delivery O2 Flow Rate FiO2 10/17/16 12:00 66 10/17/16 11:54 16 100 30 10/17/16 11:00 130/83 10/17/16 10:00 Mechanical Ventilator 10/17/16 07:00 98.1 Intake and Output 10/16/16 10/16/16 10/17/16 15:00 23:00 07:00 Intake Total 950 ml 750 ml 600 ml Output Total 455 ml 680 ml 285 ml Balance 495 ml 70 ml 315 ml Exam Constitutional: non-verbal Respiratory: clear to auscultation Cardiovascular: regular rate and rhythm Gastrointestinal: soft, No distended Musculoskeletal: nl extremities to inspection Results Result Diagram: 10/17/16 0515 10/17/1615 Results 24 hrs Laboratory Tests Test 10/16/16 17:13 10/16/16 20:16 10/17/16 00:59 10/17/16 05:14 Bedside Glucose 201 195 202 231 H Test 10/17/16 05:15 10/17/16 08:16 10/17/16 13:17 Anion Gap 21 H Basophils # 0.0 Basophils % 0.2 Blood Morphology Comment Blood Urea Nitrogen 114 H Calcium Level 9.7 Carbon Dioxide Level 22 Chloride Level 109 Creatinine 3.06 H Eosinophils # 0.5 Eosinophils % 9.1 H Glucose Level 210 Hematocrit 26.0 L Hemoglobin 8.8 L Lymphocytes # 1.1 Lymphocytes % 23.1 Magnesium Level 2.8 H Mean Corpuscular Hemoglobin 28.6 L Mean Corpuscular Hemoglobin Concent 34.0 Mean Corpuscular Volume 84.2 Mean Platelet Volume 10.2 Monocytes # 0.3 Monocytes % 7.0 Neutrophils # 3.0 Neutrophils % 60.6 Nucleated Red Blood Cells # 0.0 Nucleated Red Blood Cells % 0.0 Phosphorus Level 6.2 H Platelet Count 201 Potassium Level 4.1 Red Blood Count 3.09 L Red Cell Distribution Width 15.9 H Sodium Level 148 H White Blood Count 5.0 # Bedside Glucose 239 H 214 Medications Medications Current Medications Ondansetron HCl (Zofran Inj) 4 mg Q6H PRN IV NAUSEA AND/OR VOMITING; Start at 02:00 Nitroglycerin (Nitroglycerin (Sl Tab) 0.4 Mg) 1 tab Q5M PRN SL CHEST PAIN; Start 10/15/16 at 02:00 Acetaminophen (Tylenol Supp) 650 mg Q4H PRN [place] PAIN LEVEL 1-3 OR FEVER; Start 10/15/16 at 02:00 Lorazepam (Ativan) 1 mg Q2H PRN IV ANXIETY; Start 10/15/16 at 02:00 Pantoprazole (Protonix Iv) 40 mg DAILY@06 IV Last administered on 10/17/16 05: 13; Admin Dose 40 MG; Start 10/15/16 at 06:00 Atorvastatin Calcium (Lipitor) 40 mg QHS GTB Last administered on 10/16/16 20: 17; Admin Dose 40 MG; Start 10/15/16 at 21:00 Baclofen (Lioresal) 20 mg TID GTB Last administered on 10/17/16 13:14; Admin Dose 20 MG; Start 10/15/16 at 09:00 Clonidine (Catapres) 0.1 mg Q8 GTB Last administered on 10/17/16 13:23; Admin Dose 0.1 MG; Start 10/15/16 at 06:00 Diphenhydramine HCl (Benadryl Liquid Cup) 25 mg Q4H PRN GTB ITCHING; Start at 01:45 Gemfibrozil (Lopid) 600 mg BID GTB Last administered on 10/17/16 08:19; Admin Dose 600 MG; Start 10/15/16 at 09:00 Insulin Detemir (Levemir) 40 unit QAM SC Last administered on 10/17/16 08:23; Admin Dose 40 UNIT; Start 10/15/16 at 09:00 Loratadine (Claritin) 10 mg DAILY GTB Last administered on 10/17/16 08:20; Admin Dose 10 MG; Start 10/15/16 at 09:00 Metoprolol Tartrate (Lopressor) 25 mg BID GTB Last administered on 10/17/16 11 :16; Admin Dose 25 MG; Start 10/15/16 at 09:00 Simethicone (Mylicon) 160 mg DAILY GTB Last administered on 10/17/16 08:19; Admin Dose 160 MG; Start 10/15/16 at 09:00 Zinc Sulfate (Zinc Sulfate) 220 mg DAILY GTB Last administered on 10/17/16 08: 20; Admin Dose 220 MG; Start 10/15/16 at 09:00 Fish Oil 1000 mg 1,000 mg BID PO Last administered on 10/17/16 08:19; Admin Dose 1,000 MG; Start 10/15/16 at 09:00 Tigecycline/ Sodium Chloride (Tygacil/NS) 100 ml @ 200 mls/hr Q12 IVPB Last administered on 10/17/16 08:18; Admin Dose 200 MLS/HR; Start 10/15/16 at 09:00 Miscellaneous Information 1 ea NOTE XX ; Start 10/15/16 at 02:00 Glucose (Glutose) 15 gm Q15M PRN PO DECREASED GLUCOSE; Start 10/15/16 at 02:00 Glucose (Glutose) 22.5 gm Q15M PRN PO DECREASED GLUCOSE; Start 10/15/16 at 02: 00 Dextrose (D50w Syringe) 25 ml Q15M PRN IV DECREASED GLUCOSE; Start 10/15/16 at 02:00 Dextrose (D50w Syringe) 50 ml Q15M PRN IV DECREASED GLUCOSE; Start 1/14/17 at 02:00 Glucagon (Glucagen) 1 mg Q15M PRN IM DECREASED GLUCOSE; Start 10/15/16 at 02:00 Glucose (Glutose) 15 gm Q15M PRN BUCCAL DECREASED GLUCOSE; Start 10/15/16 at 02 :00 Diagnostic Test (Pha) (Accucheck) 1 ea 02 XX Last administered on 10/16/16 02: 14; Admin Dose 1 EA; Start 10/16/16 at 02:00 Insulin Aspart (Novolog Insulin Pen) NOVOLOG *MILD* ALGORI... Q4 SC Last administered on 10/17/16 13:20; Admin Dose 2 UNIT; Start 10/15/16 at 09:00 Collagenase 1 applic 1 applic DAILY TOP Last administered on 10/17/16 08:22; Admin Dose 1 APPLIC; Start 10/15/16 at 12:00 Aztreonam (Azactam 1gm/NS (Pmx)) 50 ml @ 100 mls/hr Q12 IVPB Last administered on 10/17/16 08:18; Admin Dose 100 MLS/HR; Start 10/16/16 at 12:30 LATA SULLIVAN Oct 17, 2016 13:40
--- NOTE | 2016-10-17 15:49 | RADRPT ---
PROCEDURE: US guidance for PICC line CLINICAL INDICATION: PICC line placement TECHNIQUE: Multiple real-time images were acquired of the patient's arm utilizing a high resolutio n transducer. This was performed by the PICC line nurse for venous access. COMPARISON: None FINDINGS: Ultrasound guidance for PICC line placement. IMPRESSION: Ultrasound guidance for PICC line placement. RPTAT: AA .Hai Lynn MD, MD Date Time Electronically viewed and signed by .Hai Lynn MD, on 10/17/2016 15:49 .S/
--- NOTE | 2016-10-17 16:21 | RADRPT ---
PROCEDURE: XR Chest. CLINICAL INDICATION: Check PICC line position. TECHNIQUE: Single frontal view. COMPARISON: 10/15/2016. FINDINGS: There is a right arm PICC line with the tip in the lower superior vena cava. There is a tracheostom y tube in satisfactory and unchanged position. Mild pulmonary edema, left basilar atelectasis, and small left pleural effusion are unchanged. The heart size is normal. The right lung is clear and there is no right pleural effusion. There is no pneumothorax. IMPRESSION: 1. Satisfactory position of right arm PICC line. 2. No other change from 10/15/2016. RPTAT: QQ .Bryant Naik MD, MD Date Time Electronically viewed and signed by .Bryant Naik MD, MD on 10/17/2016 16:20 .R/
[2016-10-17] MEDS ORDERED: SOD CHLORIDE 0.9% 100 ML ONE (17:04)
[2016-10-17] MEDS: SEVELAMER CARBONATE 0.8 GM PKT PO SCH (18:47)
[2016-10-17] MEDS ORDERED: morphine 2 MG INJ IV PRN (19:00)
[2016-10-17] MEDS: ATORVASTATIN 40 MG TAB GTB SCH (20:30)
[2016-10-18] VITALS (24 sets, daily range): BP systolic 103–112; BP diastolic 53–71; PULSE 69–74; RESP 16–17
[2016-10-18] MEDS: ALBUTEROL HFA 8 GM INHALER INH SCH ×4 (00:40→19:44)
[2016-10-18] MEDS: INSULIN ASPART [NOVOLOG] 3 ML PEN SC SCH ×6 (01:00→21:00)
[2016-10-18] MEDS: ACCUCHECK AT 2AM (Patients on SS coverage) XX SCH (02:06)
[2016-10-18] MEDS: PANTOPRAZOLE 40 MG INJ IV SCH (06:09)
[2016-10-18] MEDS: IPRATROPIUM (HFA) 12.9 GM INHALER INH SCH ×3 (07:38→19:43)
[2016-10-18 08:18] LABS: BASOPHILS % 0.4 % (0.0-2.0); EOSINOPHILS # 0.3 10^3/ul (0.0-0.5); EOSINOPHILS % 5.7 % (0.0-7.0); HEMATOCRIT 28.7 % (37.0-47.0); HEMOGLOBIN 9.4 g/dl (12.0-16.0); LYMPHOCYTES # 1.2 10^3/ul (0.8-2.9); LYMPHOCYTES % 20.4 % (15.0-51.0); MEAN CORPUSCULAR HEMOGLOBIN 27.9 pg (29.0-33.0); MEAN CORPUSCULAR HGB CONC 32.8 g/dl (32.0-37.0); MEAN CORPUSCULAR VOLUME 85.1 fl (82.0-101.0); MEAN PLATELET VOLUME 10.6 fl (7.4-10.4); MONOCYTE # 0.4 10^3/ul (0.3-0.9); MONOCYTES % 6.6 % (0.0-11.0); NEUTROPHIL # 3.8 10^3/ul (1.6-7.5); NEUTROPHILS % 66.9 % (39.0-77.0); PLATELET COUNT 183 10^3/UL (140-440); RED BLOOD COUNT 3.37 10^6/ul (4.20-5.40); RED CELL DISTRIBUTION WIDTH 15.5 % (11.5-14.5); UNCORRECTED WBC 5.7 10^3/ul (4.8-10.8); WHITE BLOOD COUNT 5.7 10^3/ul (4.8-10.8)
[2016-10-18 08:23] LABS: CONDITION 1; LH ANALYZER COMMENTS 1
--- NOTE | 2016-10-18 08:37 | CONS ---
DATE OF ADMISSION: 10/15/2016 DATE OF CONSULTATION: 10/17/2016 TYPE OF CONSULTATION: Surgical. REFERRING PHYSICIAN: Dr. Jeffy Prater. OTHER PHYSICIANS INVOLVED: 1. Dr. Tex Batres. 2. Dr. Nicolas Blackwell. 3. Dr. Vladimir Zavaleta. CHIEF COMPLAINT: 1. Multiple ischial, sacral and lower extremity decubitus ulcerations. 2. Advanced multiple sclerosis with functional quadriplegia. 3. Acute on chronic kidney disease. 4. Normocytic anemia. 5. Chronic respiratory failure with vent and trach dependence. HISTORY OF PRESENT ILLNESS: The patient is a 56-year-old female with multiple significant comorbidi ties who has advanced MS for many with functional quadriplegia, noncommunicative residing at [facility] and was brought into the hospital for fevers. She was found to have pneumonia and possible sepsis and has been on antibiotics and supportive therapy in the ICU. She was also found to have multiple decu bitus wounds with probable infection. Surgical consult is obtained for further evaluation and treat ment. The patient is unable to give any information. She does not have any cough, seizure, acute n eurologic changes. She had some bloating. She has edema. No new skin rashes. PAST MEDICAL HISTORY: 1. Advanced MS. 2. Functional quadriplegia. 3. Neurogenic bladder. 4. Dyslipidemia. 5. Type 2 diabetes. 6. Acute on chronic kidney failure. 7. Anemia. 8. Hyperkalemia. 9. Acute on chronic respiratory failure. 10. Pneumonia. 11. Sepsis. 12. Fever. 13. Multiple decubitus ulcerations of sacrum and bilateral ischial and lower extremities. 14. Wound infections. 15. Hyperglycemia. PAST SURGICAL HISTORY: 1. PEG. 2. Trach. 3. Wound debridement. MEDICATIONS: As per MAR. ALLERGIES: As per chart. SOCIAL HISTORY: No current alcohol, drugs or tobacco. FAMILY HISTORY: Noncontributory. REVIEW OF SYSTEMS: A 12-point review of systems negative unless addressed in the HPI. PHYSICAL EXAMINATION: VITAL SIGNS: Temperature is 98.1, pulse 60s to 80s, blood pressure 90s to 100s over 40s to 70s. GENERAL: Noncommunicative, vented. HEENT: Pupils are sluggish. No scleral icterus. Mucous membranes are somewhat dry. NECK: Trach in place, no crepitus. PULMONARY: Normal respiratory effort. No wheezing. HEART: S1, S2 present. ABDOMEN: Soft. PEG in place. EXTREMITIES: Contracted, trace edema. VASCULAR: Capillary refill is 3 seconds. NEUROLOGIC: Does not follow commands. SKIN: No jaundice. Bilateral ischial, sacral and lower extremity ulcerations. The sacral and isch ial ulceration had debris and foul odor. LABORATORY AND RADIOGRAPHIC: As per chart and HPI. ASSESSMENT AND PLAN: The patient is a 56-year-old female with multiple significant comorbidities. 1. Decubitus ulcerations of the sacral, coccyx and ischials, stage 4. 2. Continue offloading, optimization of nutrition, vitamin C, short term zinc (2 weeks) and eventua l debridement. Recommend Dakin's at this time based on the order and probable infected. wounds 3. Lower extremities ulcerations will defer to podiatry and treatment as above. 4. Sepsis, multifactorial with pneumonia, probable wounds. 5. Antibiotics and supportive care and treatment as above. 6. Advanced multiple sclerosis with functional quadriplegia and inability to communicate. Continue offloading, optimization of nutrition and medical optimization. 7. Anemia without evidence of acute blood loss. Continue close observation. 8. Acute on chronic renal insufficiency. Continue judicious fluid management and avoid nephrotoxic agents. 9. Electrolyte imbalance with hypermagnesemia, hyperphosphatemia. Continue corrections as needed. 10. Chronic respiratory failure on the ventilator. 11. Diabetes. Continue nutrition and medication optimization. 12. Neurogenic bladder. Thank you very much for consulting me in this patient's care. Dictated By: SARAH PERDUE/HERI Conf#: [id number] DID#: [id number]
[2016-10-18 08:47] LABS: POTASSIUM 3.8 mmol/L (3.5-5.1)
[2016-10-18 08:50] LABS: CREATININE 2.49 mg/dl (0.44-1.00)
[2016-10-18 08:51] LABS: CALCIUM 9.5 mg/dl (8.4-10.2)
[2016-10-18] MEDS: SEVELAMER CARBONATE 0.8 GM PKT PO SCH ×3 (10:29→18:09)
[2016-10-18] MEDS: FISH OIL 1,000 MG CAP PO SCH ×2 (10:30→21:52)
[2016-10-18] MEDS: LORATADINE 10 MG TAB GTB SCH (10:30)
[2016-10-18] MEDS: GEMFIBROZIL 600 MG TAB GTB SCH ×2 (10:30→21:49)
[2016-10-18] MEDS: ZINC SULFATE 220 MG CAP GTB SCH (10:30)
[2016-10-18] MEDS: BACLOFEN 10 MG TAB GTB SCH ×3 (10:30→21:49)
[2016-10-18] MEDS: TIGECYCLINE 50 MG in SOD CHLORIDE 0.9% 100 ML IVPB SCH (10:31)
[2016-10-18] MEDS: METOPROLOL 25 MG TAB GTB SCH ×2 (10:34→21:49)
[2016-10-18] MEDS: AZTREONAM 1 GM/NS (PMX) 50 ML IVPB SCH (10:35)
[2016-10-18] MEDS: COLLAGENASE 30 GM TUBE TOP SCH (10:36)
[2016-10-18] MEDS: INSULIN DETEMIR [LEVEMIR] 3ML CART SC SCH (10:37)
--- NOTE | 2016-10-18 10:45 | PN ---
DATE: 10/18/2016 SUBJECTIVE: The patient was transferred from intensive care unit to telemetry. No other acute even ts noted overnight. No hemoptysis, hematemesis or hematochezia. OBJECTIVE: VITAL SIGNS: Blood pressure is 103/53, respiration 16, pulse 74, temperature 98.8. HEENT: Head is normocephalic. NECK: Supple. HEART: Regular rate. LUNGS: Show diminished breath sounds at base. ABDOMEN: Soft, nontender to palpation. No rebound or guarding. EXTREMITIES: Negative for clubbing, cyanosis, no edema. DERMATOLOGIC: No rashes. MUSCULOSKELETAL: No joint effusions. NEUROLOGIC: No change in exam. MEDICATIONS: The patient's medications have been reviewed. LABORATORY DATA: Shows is currently pending. ASSESSMENT AND PLAN: 1. Nonoliguric acute kidney injury on top of chronic kidney disease with unknown baseline creatinin e. Etiology of acute kidney injury is multifactorial secondary to sepsis, hemodynamics, tubular inj ury. The patient's renal function had been stable. At this point, continue current treatment plan. Continue supportive care, renally dose all meds, avoid nephrotoxins. Treat underlying sepsis. We will follow up renal panel, monitor closely. 2. Hypernatremia. The patient has free water deficit of approximately 2 liters, continue free wate r flushes 200 mL q4 hours. 3. Hyperkalemia, improved. 4. Anemia. Continue to monitor hemoglobin and hematocrit levels. We will give Epogen as needed. 5. Mineral bone disorder, continue to monitor calcium and phosphorus levels, phosphate binders have been started. 6. Sepsis secondary to pneumonia, decubitus wound, urinary tract infection. Continue current antib iotic regimen. 7. Diabetes, continue Accu-Cheks and insulin sliding scale. 8. Multiple decubitus wound. Continue wound care, offloading. Follow up with general surgery. 9. Ventilator dependent respiratory failure. Vent settings have been reviewed. ABGs have been rev iewed. 10. Dysphagia, status post percutaneous endoscopic gastrostomy. Continue tube feed. 11. Acute on chronic encephalopathy. No change. 12. History of muscle sclerosis advanced. Continue supportive care. Dictated By: JANETH WALLACE/HERI Conf#: [id number] DID#: [id number]
--- NOTE | 2016-10-18 14:34 | PN ---
DATE: 10/18/2016 SUBJECTIVE: No acute changes overnight. The patient was transferred from ICU to telemetry. She is lying comfortably in bed, nonverbal, noncommunicative. WBC today 5.7, no shift, no bands. BUN 96, creatinine 2.49. VITAL SIGNS: She is afebrile. MICROBIOLOGY: Urine culture on admission grew Klebsiella and E. coli ESBL susceptible to imipenem, sputum culture growing gram-negative rods. Repeat urine culture growing gram-negative rods. Influe nza swab was negative. INDWELLINGS: Trach, PEG, Joel, PICC line placed on 10/17/2016. DIAGNOSTICS: Renal ultrasound revealed multiple large bilateral renal calculi. ANTIMICROBIALS: The patient is on aztreonam, she is also on Tygacil. ALLERGIES: SHE IS ALLERGIC TO PENICILLINS, VANCOMYCIN, CEPHALOSPORIN AND LEVAQUIN. PHYSICAL EXAMINATION: GENERAL: This is a well-developed, chronically ill-appearing, middle-aged woman who is lying comfor tably in bed. HEENT: Head atraumatic, normocephalic. Sclerae anicteric. Buccal mucosa dry. NECK: Supple. Tracheostomy present. CHEST: Rise symmetrical. Breath sounds diminished to bases. HEART: S1, S2. ABDOMEN: Soft, bowel tones present. EXTREMITIES: Without cyanosis. ASSESSMENT: 1. Sepsis, present on admission secondary to multi-drug resistant urinary tract infection. 2. Chronic respiratory failure with sputum culture growing Pseudomonas aeruginosa likely colonized, resistant to imipenem. 3. Acute respiratory failure. 4. Chronic encephalopathy. 5. Multiple decubitus. 6. Advanced multiple sclerosis with functional quadriplegia. PLAN: We are going to change aztreonam to imipenem. Discontinue Tygacil and start colistin inhalat ion for pseudomonas positive sputum colonization. Consider urology evaluation given multiple large kidney stones, continue local wound care, surgical, pulmonary and nephrology recommendations. Dictated By: FLEX DENNISON [employer] COUN[employer] for CRISTINA WHITFIELD/HERI Conf#: [id number] DID#: [id number]
--- NOTE | 2016-10-18 14:35 | PN ---
Date/Time of Note Date/Time of Note DATE: 10/18/16 TIME: 14:32 Assessment/Plan VTE Prophylaxis VTE Prophylaxis Intervention: SCD's Assessment/Plan Chief Complaint/Hosp Course 1. Sepsis with underlying septic shock 2/2 UTI -UCx shows ESBL E. coli and ESBL Klebsiella -ID on case cont Abx with imipenem 2. Acute on chronic kidney disease. Nonoliguric. Nephrology following. Avoid nephrotoxins. 3. Normocytic anemia likely anemia of chronic disease Status post 2 units of PRBC transfusion. Continue proton pump inhibitors. 4. Hyperkalemia. Most probably secondary to worsening renal function. Resolved. 5. Chronic respiratory failure. Vent-dependent. Pulmonary following the patient. Continue inhaled bronchodilators. 6. Dyslipidemia. Continue anti-lipemic medications. 7. Advanced Multiple sclerosis. Continue supportive care. 8. Multiple pressure ulcers. Continue local wound care. 9. Fluid, electrolytes and nutrition. Continue G-tube feedings. 10. Deep venous thrombosis prophylaxis. SCD's 11. Gastrointestinal prophylaxis, proton pump inhibitors Problems: Subjective 24 Hr Interval Summary Subjective hx not possible: pt non-verbal Exam/Review of Systems Vital Signs Vitals Vital Signs Date Time Temp Pulse Resp B/P Pulse Ox O2 Delivery O2 Flow Rate FiO2 10/18/16 13:12 73 16 99 30 10/18/16 11:34 97.8 112/64 10/17/16 21:00 Mechanical Ventilator Intake and Output 10/17/16 10/17/16 10/18/16 15:00 23:00 07:00 Intake Total 980 ml 400 ml 800 ml Output Total 360 ml 405 ml 380 ml Balance 620 ml -5 ml 420 ml Exam Constitutional: non-verbal Respiratory: clear to auscultation Cardiovascular: regular rate and rhythm Gastrointestinal: soft, No distended Musculoskeletal: nl extremities to inspection Results Result Diagram: 10/18/16 0640 10/18/16 0641 Results 24 hrs Laboratory Tests Test 10/17/16 17:32 10/17/16 20:37 10/18/16 02:06 10/18/16 06:09 Bedside Glucose 168 169 121 142 Test 10/18/16 06:40 10/18/16 06:41 10/18/16 07:42 10/18/16 08:30 Basophils # 0.0 Basophils % 0.4 Blood Morphology Comment Eosinophils # 0.3 Eosinophils % 5.7 Hematocrit 28.7 L Hemoglobin 9.4 L Lymphocytes # 1.2 Lymphocytes % 20.4 Mean Corpuscular Hemoglobin 27.9 L Mean Corpuscular Hemoglobin Concent 32.8 Mean Corpuscular Volume 85.1 Mean Platelet Volume 10.6 H Monocytes # 0.4 Monocytes % 6.6 Neutrophils # 3.8 Neutrophils % 66.9 Nucleated Red Blood Cells # 0.0 Nucleated Red Blood Cells % 0.0 Platelet Count 183 Red Blood Count 3.37 L Red Cell Distribution Width 15.5 H White Blood Count 5.7 Anion Gap 21 H Blood Urea Nitrogen 96 H Calcium Level 9.5 Carbon Dioxide Level 22 Chloride Level 110 Creatinine 2.49 H Glucose Level 135 # Magnesium Level 2.6 H Phosphorus Level 6.0 H Potassium Level 3.8 Sodium Level 149 H Lab Scanned Report REFERENCE LAB Bedside Glucose 183 Test 10/18/16 12:13 Bedside Glucose 216 Medications Medications Current Medications Ondansetron HCl (Zofran Inj) 4 mg Q6H PRN IV NAUSEA AND/OR VOMITING; Start at 02:00 Nitroglycerin (Nitroglycerin (Sl Tab) 0.4 Mg) 1 tab Q5M PRN SL CHEST PAIN; Start 10/15/16 at 02:00 Acetaminophen (Tylenol Supp) 650 mg Q4H PRN DE PAIN LEVEL 1-3 OR FEVER; Start 10/15/16 at 02:00 Lorazepam (Ativan) 1 mg Q2H PRN IV ANXIETY; Start 10/15/16 at 02:00 Pantoprazole (Protonix Iv) 40 mg DAILY@06 IV Last administered on 10/18/16 06: 09; Admin Dose 40 MG; Start 10/15/16 at 06:00 Atorvastatin Calcium (Lipitor) 40 mg QHS GTB Last administered on 10/17/16 20: 30; Admin Dose 40 MG; Start 10/15/16 at 21:00 Baclofen (Lioresal) 20 mg TID GTB Last administered on 10/18/16 12:17; Admin Dose 20 MG; Start 10/15/16 at 09:00 Clonidine (Catapres) 0.1 mg Q8 GTB Last administered on 10/18/16 10:34; Admin Dose 0.1 MG; Start 10/15/16 at 06:00 Diphenhydramine HCl (Benadryl Liquid Cup) 25 mg Q4H PRN GTB ITCHING; Start at 01:45 Gemfibrozil (Lopid) 600 mg BID GTB Last administered on 10/18/16 10:30; Admin Dose 600 MG; Start 10/15/16 at 09:00 Insulin Detemir (Levemir) 40 unit QAM SC Last administered on 10/18/16 10:37; Admin Dose 40 UNIT; Start 10/15/16 at 09:00 Loratadine (Claritin) 10 mg DAILY GTB Last administered on 10/18/16 10:30; Admin Dose 10 MG; Start 10/15/16 at 09:00 Metoprolol Tartrate (Lopressor) 25 mg BID GTB Last administered on 10/18/16 10 :34; Admin Dose 25 MG; Start 10/15/16 at 09:00 Simethicone (Mylicon) 160 mg DAILY GTB Last administered on 10/18/16 10:30; Admin Dose 160 MG; Start 10/15/16 at 09:00 Zinc Sulfate (Zinc Sulfate) 220 mg DAILY GTB Last administered on 10/18/16 10: 30; Admin Dose 220 MG; Start 10/15/16 at 09:00 Fish Oil (Fish Oil) 1,000 mg BID PO Last administered on 10/18/16 10:30; Admin Dose 1,000 MG; Start 10/15/16 at 09:00 Miscellaneous Information 1 ea NOTE XX ; Start 10/15/16 at 02:00 Glucose (Glutose) 15 gm Q15M PRN PO DECREASED GLUCOSE; Start 10/15/16 at 02:00 Glucose (Glutose) 22.5 gm Q15M PRN PO DECREASED GLUCOSE; Start 10/15/16 at 02: 00 Dextrose (D50w Syringe) 25 ml Q15M PRN IV DECREASED GLUCOSE; Start 10/15/16 at 02:00 Dextrose (D50w Syringe) 50 ml Q15M PRN IV DECREASED GLUCOSE; Start 10/15/16 at 02:00 Glucagon (Glucagen) 1 mg Q15M PRN IM DECREASED GLUCOSE; Start 10/15/16 at 02:00 Glucose (Glutose) 15 gm Q15M PRN BUCCAL DECREASED GLUCOSE; Start 10/15/16 at 02 :00 Diagnostic Test (Pha) (Accucheck) 1 ea 02 XX Last administered on 10/18/16 02: 06; Admin Dose 1 EA; Start 10/16/16 at 02:00 Insulin Aspart (Novolog Insulin Pen) NOVOLOG *MILD* ALGORI... Q4 SC Last administered on 10/18/16 12:21; Admin Dose 2 UNIT; Start 10/15/16 at 09:00 Collagenase (Santyl) 1 applic DAILY TOP Last administered on 10/18/16 10:36; Admin Dose 1 APPLIC; Start 10/15/16 at 12:00 IV Flush (NS 10 ml) 10 ml PRN PRN IV IV PROTOCOL; Start 10/17/16 at 17:00 Morphine Sulfate 2 mg 2 mg Q3H PRN IV PAIN Last administered on 10/17/16 19:17 ; Admin Dose 2 MG; Start 10/17/16 at 19:00 Imipenem/ Cilastatin Sodium (Primaxin 500 Mg/ 100 ml (Pmx)) 100 ml @ 100 mls/ hr Q12 IVPB ; Start 10/18/16 at 14:00 LATA SULLIVAN Oct 18, 2016 14:35
--- NOTE | 2016-10-18 15:07 | PN ---
DATE: 10/18/2016 SUBJECTIVE: The patient remains stable following transfer from intensive care unit. PHYSICAL EXAMINATION: VITAL SIGNS: Temperature 98, pulse 73, blood pressure 112/64, O2 saturation 96% on 30% FIO2. NECK: Trach site clean and intact. CARDIAC: S1, S2, no added sounds or murmurs. CHEST: Diminished air entry bilaterally. ABDOMEN: Soft, nontender, no guarding or rebound. EXTREMITIES: No cyanosis, clubbing, edema. NEUROLOGIC: Unable to assess. LABORATORY DATA: White count 5.7, hemoglobin 9.4, platelets 183. BUN 96, creatinine 2.49. IMPRESSION AND PLAN: 1. Vent dependent respiratory failure. 2. History of advanced multiple sclerosis with encephalopathy. 3. Remote oliguric kidney failure, likely secondary to acute tubular necrosis. 4. Hyperkalemia. 5. Hypernatremia. 6. Dysphagia with G-tube. 7. Multiple decubitus ulcers, status post septic shock. The patient should continue with: 1. Mechanical ventilation. 2. Pulmonary toilet. 3. Broad-spectrum antibiotics. 4. Tube feeding as tolerated. 5. Renal recommendations. 6. DVT and GI prophylaxis. Dictated By: ULYSSES BENNETT/HERI Conf#: [id number] DID#: [id number]
--- NOTE | 2016-10-18 15:24 | PN ---
Date/Time of Note Date/Time of Note DATE: 10/18/16 TIME: 15:20 Assessment/Plan Assessment/Plan Chief Complaint/Hosp Course 1. Decubitus ulcerations of the sacral, coccyx and ischials, stage 4. -Offloading -Optimization of nutrition -Vitamin C -Short term zinc (2 weeks) -Local care with dakins 2nd odor and ? infection -Eventual debridement. 2. Lower extremities ulcerations -Will defer to podiatry and treatment as above. 3. Sepsis, multifactorial with pneumonia, probable wounds. Improved -Antibiotics and supportive care and treatment as above. 4. Advanced multiple sclerosis with functional quadriplegia and inability to communicate -Continue offloading -Optimization of nutrition and medical optimization. 5. Anemia without evidence of acute blood loss. -Continue close observation. 6. Acute on chronic renal insufficiency. -Continue judicious fluid management -Avoid nephrotoxic agents. 7. Electrolyte imbalance with hypermagnesemia, hyperphosphatemia. -Corrections as needed. 8. Chronic respiratory failure on the ventilator. 9. Diabetes. -Continue nutrition and medication optimization. 10. Neurogenic bladder. Thank you, Problems: Subjective 24 Hr Interval Summary No f/c. No cough. No bleeding. No n/v. No sz. No rash. Wounds with odor. Soft bm. No bloating. Exam/Review of Systems Vital Signs Vitals Vital Signs Date Time Temp Pulse Resp B/P Pulse Ox O2 Delivery O2 Flow Rate FiO2 10/18/16 15:08 76 16 100 30 10/18/16 11:34 97.8 112/64 10/17/16 21:00 Mechanical Ventilator Intake and Output 10/17/16 10/17/16 10/18/16 15:00 23:00 07:00 Intake Total 980 ml 400 ml 800 ml Output Total 360 ml 405 ml 380 ml Balance 620 ml -5 ml 420 ml Exam Free Text/Dictation GENERAL: Noncommunicative, vented. HEENT: Pupils are sluggish. No scleral icterus. Mucous membranes are somewhat dry. NECK: Trach in place, no crepitus. PULMONARY: Normal respiratory effort. No wheezing. HEART: S1, S2 present. ABDOMEN: Soft. PEG in place. EXTREMITIES: Contracted, trace edema. VASCULAR: Capillary refill is 3 seconds. NEUROLOGIC: Does not follow commands. SKIN: No jaundice. Bilateral ischial, sacral and lower extremity ulcerations. The sacral and ischial ulceration had debris and foul odor. Results Result Diagram: 10/18/16 0640 10/18/16 0641 SARAH HIGH MD Oct 18, 2016 15:24
[2016-10-18 17:44] LABS: MICROALBUMIN 57.8 mg/dL
[2016-10-18] MEDS: IMIPENEM-CILAST 500MG IV (PMX) 100 ML IVPB SCH ×2 (18:08→21:48)
[2016-10-18] MEDS: COLISTIMETHATE (25 MG/ML INHAL SYG) NEB SCH (19:44)
[2016-10-18] MEDS: ATORVASTATIN 40 MG TAB GTB SCH (21:49)
[2016-10-19] VITALS (23 sets, daily range): BP systolic 90–140; BP diastolic 53–73; PULSE 67–89; RESP 16–18
[2016-10-19] MEDS: INSULIN ASPART [NOVOLOG] 3 ML PEN SC SCH ×6 (00:58→21:00)
[2016-10-19] MEDS: ALBUTEROL HFA 8 GM INHALER INH SCH ×4 (01:19→20:10)
[2016-10-19] MEDS: ACCUCHECK AT 2AM (Patients on SS coverage) XX SCH (02:00)
[2016-10-19] MEDS: PANTOPRAZOLE 40 MG INJ IV SCH (05:18)
[2016-10-19 06:28] LABS: BASOPHILS % 0.3 % (0.0-2.0); EOSINOPHILS # 0.3 10^3/ul (0.0-0.5); EOSINOPHILS % 5.4 % (0.0-7.0); HEMOGLOBIN 9.8 g/dl (12.0-16.0); LYMPHOCYTES % 20.1 % (15.0-51.0); MEAN CORPUSCULAR HEMOGLOBIN 28.5 pg (29.0-33.0); MEAN CORPUSCULAR HGB CONC 33.7 g/dl (32.0-37.0); MEAN CORPUSCULAR VOLUME 84.5 fl (82.0-101.0); MEAN PLATELET VOLUME 9.9 fl (7.4-10.4); MONOCYTE # 0.3 10^3/ul (0.3-0.9); MONOCYTES % 5.1 % (0.0-11.0); NEUTROPHIL # 3.6 10^3/ul (1.6-7.5); NEUTROPHILS % 69.1 % (39.0-77.0); PLATELET COUNT 182 10^3/UL (140-440); RED BLOOD COUNT 3.43 10^6/ul (4.20-5.40); RED CELL DISTRIBUTION WIDTH 15.5 % (11.5-14.5); UNCORRECTED WBC 5.1 10^3/ul (4.8-10.8); WHITE BLOOD COUNT 5.1 10^3/ul (4.8-10.8)
[2016-10-19 06:34] LABS: POTASSIUM 3.9 mmol/L (3.5-5.1)
[2016-10-19 06:36] LABS: CONDITION 1; LH ANALYZER COMMENTS 1
[2016-10-19 06:37] LABS: CREATININE 2.16 mg/dl (0.44-1.00)
[2016-10-19 06:38] LABS: CALCIUM 9.1 mg/dl (8.4-10.2); MAGNESIUM 2.5 mg/dl (1.7-2.5); PHOSPHORUS 5.4 mg/dl (2.5-4.9)
[2016-10-19] MEDS: IPRATROPIUM (HFA) 12.9 GM INHALER INH SCH ×3 (08:17→20:10)
[2016-10-19] MEDS: COLISTIMETHATE (25 MG/ML INHAL SYG) NEB SCH (08:17)
[2016-10-19] MEDS: METOPROLOL 25 MG TAB GTB SCH ×2 (09:00→21:00)
[2016-10-19] MEDS: COLLAGENASE 30 GM TUBE TOP SCH (09:00)
[2016-10-19] MEDS: IMIPENEM-CILAST 500MG IV (PMX) 100 ML IVPB SCH ×2 (10:19→21:26)
[2016-10-19] MEDS: GEMFIBROZIL 600 MG TAB GTB SCH ×2 (10:23→21:24)
[2016-10-19] MEDS: FISH OIL 1,000 MG CAP PO SCH ×2 (10:23→21:24)
[2016-10-19] MEDS: BACLOFEN 10 MG TAB GTB SCH ×3 (10:23→21:24)
[2016-10-19] MEDS: SEVELAMER CARBONATE 0.8 GM PKT PO SCH ×3 (10:23→17:23)
[2016-10-19] MEDS: ZINC SULFATE 220 MG CAP GTB SCH (10:23)
[2016-10-19] MEDS: LORATADINE 10 MG TAB GTB SCH (10:24)
[2016-10-19] MEDS: INSULIN DETEMIR [LEVEMIR] 3ML CART SC SCH (11:03)
--- NOTE | 2016-10-19 11:03 | PN ---
DATE: 10/19/2016 SUBJECTIVE: The patient is stable, no acute events overnight. No fevers chills, nausea, vomiting. No shortness of breath. OBJECTIVE: VITAL SIGNS: Blood pressure 93/56, respiration 18, pulse 72, temperature 98.3. HEENT: Head is normocephalic. NECK: Supple. HEART: Regular rate. LUNGS: Show diminished breath sounds at base. ABDOMEN: Soft, nontender to palpation, no rebound or guarding. EXTREMITIES: Negative for clubbing, cyanosis. No edema. DERMATOLOGIC: No rashes. MUSCULOSKELETAL: No joint effusions. NEUROLOGIC: No change in exam. MEDICATIONS: The patient's medications have been reviewed. LABORATORY DATA: Shows a sodium of 147, potassium 3.9, chloride 107, BUN 83, creatinine 2.16. Whit e count 5.1, hemoglobin 9.8, hematocrit 29.0, platelet count is 182. ASSESSMENT AND PLAN: 1. Nonoliguric acute kidney injury with unknown baseline creatinine. Etiology of acute kidney inju ry is multifactorial, secondary to sepsis, hemodynamics, tubular injury. Renal function has been im proving. We will continue current treatment plan, supportive care, renally dose all medications, av oid nephrotoxins. 2. Hypernatremia. The patient has a free water deficit of approximately 2.5 liters. Continue free water flushes 200 mL q.6 h. Sodium levels have been improving. 3. Hyperkalemia, resolved. 4. Anemia. Continue to monitor hemoglobin and hematocrit levels. Will give Epogen as needed. 5. Mineral bone disorder. Monitor calcium and phosphorus levels. Continue phos binders. 6. Sepsis secondary to pneumonia and decubitus wound. Continue current antibiotic regimen. 7. Diabetes, continue Accu-Cheks and insulin sliding scale. 8. Multiple decubitus wounds. Continue wound care, offloading. 9. Ventilator dependent respiratory failure. Vent settings have been reviewed. ABG has been revie wed. 10. Dysphagia, status post percutaneous endoscopic gastrostomy. Continue tube feeds. 11. Acute on chronic encephalopathy. No change. 12. History of advanced multiple sclerosis. Continue supportive care. Dictated By: JANETH WALLACE/HERI Conf#: [id number] DID#: [id number]
--- NOTE | 2016-10-19 12:28 | PN ---
Date/Time of Note Date/Time of Note DATE: 10/19/16 TIME: 12:26 Assessment/Plan Lines/Catheters IV Catheter Type (from [facility] PICC Line Joel in Place (from [facility]): Yes Assessment/Plan Chief Complaint/Hosp Course 1. Decubitus ulcerations of the sacral, coccyx and ischials, stage 4. -Offloading -Optimization of nutrition -Vitamin C -Short term zinc (2 weeks) -Local care with dakins 2nd odor and ? infection -Debridement prn 2. Lower extremities ulcerations -Will defer to podiatry and treatment as above. 3. Sepsis, multifactorial with pneumonia, probable wounds. Improved -Antibiotics and supportive care and treatment as above. 4. Advanced multiple sclerosis with functional quadriplegia and inability to communicate -Continue offloading -Optimization of nutrition and medical optimization. 5. Anemia without evidence of acute blood loss. -Continue close observation. 6. Acute on chronic renal insufficiency. -Continue judicious fluid management -Avoid nephrotoxic agents. 7. Electrolyte imbalance with hypermagnesemia, hyperphosphatemia. -Corrections as needed. 8. Chronic respiratory failure on the ventilator. 9. Diabetes. -Continue nutrition and medication optimization. 10. Neurogenic bladder. Thank you, Problems: Subjective 24 Hr Interval Summary No f/c. No cough. No bleeding. No n/v. No sz. No rash. Wounds with odor. Soft bm. No bloating. Exam/Review of Systems Vital Signs Vitals Vital Signs Date Time Temp Pulse Resp B/P Pulse Ox O2 Delivery O2 Flow Rate FiO2 10/19/16 11:09 98.7 84 16 140/73 100 10/19/16 08:20 30 10/17/16 21:00 Mechanical Ventilator Intake and Output 10/18/16 10/18/16 10/19/16 15:00 23:00 07:00 Intake Total 700 ml 1200 ml Output Total 1000 ml 1000 ml Balance -300 ml 200 ml Exam Free Text/Dictation GENERAL: Noncommunicative, vented. HEENT: Pupils are sluggish. No scleral icterus. Mucous membranes are somewhat dry. NECK: Trach in place, no crepitus. PULMONARY: Normal respiratory effort. No wheezing. HEART: S1, S2 present. ABDOMEN: Soft. PEG in place. EXTREMITIES: Contracted, trace edema. VASCULAR: Capillary refill is 3 seconds. NEUROLOGIC: Does not follow commands. SKIN: No jaundice. Bilateral ischial, sacral and lower extremity ulcerations. The sacral and ischial ulceration had debris and foul odor. Results Result Diagram: 10/19/16 0555 10/19/16 0555 SARAH HIGH MD Oct 19, 2016 12:28
--- NOTE | 2016-10-19 14:39 | CONS ---
Date/Time of Note Date/Time of Note DATE: 10/19/16 TIME: 14:38 Consult Date/Type/Reason Admit Date/Time Oct 15, 2016 at 01:39 Type of Consultation: Pulm Subjective Comfortable. No events Objective Vital Signs Date Time Temp Pulse Resp B/P Pulse Ox O2 Delivery O2 Flow Rate FiO2 10/19/16 12:15 81 10/19/16 11:09 98.7 16 140/73 100 10/19/16 08:20 30 10/17/16 21:00 Mechanical Ventilator Intake and Output 10/18/16 10/18/16 10/19/16 14:59 22:59 06:59 Intake Total 700 ml 1200 ml Output Total 1000 ml 1000 ml Balance -300 ml 200 ml PHYSICAL EXAMINATION: VITAL SIGNS: NECK: Trach site clean and intact. CARDIAC: S1, S2, no added sounds or murmurs. CHEST: Diminished air entry bilaterally. ABDOMEN: Soft, nontender, no guarding or rebound. EXTREMITIES: No cyanosis, clubbing, edema. NEUROLOGIC: Unable to assess. Results/Medications Result Diagram: 10/19/16 0555 10/19/16 0555 Results 24 hrs Laboratory Tests Test 10/18/16 17:39 10/18/16 21:53 10/19/16 00:53 10/19/16 05:16 Bedside Glucose 137 130 142 217 Test 10/19/16 05:55 10/19/16 07:57 10/19/16 10:16 10/19/16 13:24 Anion Gap 22 H Basophils # 0.0 Basophils % 0.3 Blood Morphology Comment Blood Urea Nitrogen 83 H Calcium Level 9.1 Carbon Dioxide Level 22 Chloride Level 107 Creatinine 2.16 H Eosinophils # 0.3 Eosinophils % 5.4 Glucose Level 215 Hematocrit 29.0 L Hemoglobin 9.8 L Lymphocytes # 1.0 Lymphocytes % 20.1 Magnesium Level 2.5 Mean Corpuscular Hemoglobin 28.5 L Mean Corpuscular Hemoglobin Concent 33.7 Mean Corpuscular Volume 84.5 Mean Platelet Volume 9.9 Monocytes # 0.3 Monocytes % 5.1 Neutrophils # 3.6 Neutrophils % 69.1 Nucleated Red Blood Cells # 0.0 Nucleated Red Blood Cells % 0.0 Phosphorus Level 5.4 H Platelet Count 182 Potassium Level 3.9 Red Blood Count 3.43 L Red Cell Distribution Width 15.5 H Sodium Level 147 H White Blood Count 5.1 Lab Scanned Report REFERENCE LAB Bedside Glucose 224 H 162 Medications Current Medications Ondansetron HCl (Zofran Inj) 4 mg Q6H PRN IV NAUSEA AND/OR VOMITING; Start at 02:00 Nitroglycerin (Nitroglycerin (Sl Tab) 0.4 Mg) 1 tab Q5M PRN SL CHEST PAIN; Start 10/15/16 at 02:00 Acetaminophen (Tylenol Supp) 650 mg Q4H PRN MS PAIN LEVEL 1-3 OR FEVER; Start 10/15/16 at 02:00 Lorazepam (Ativan) 1 mg Q2H PRN IV ANXIETY; Start 10/15/16 at 02:00 Pantoprazole (Protonix Iv) 40 mg DAILY@06 IV Last administered on 10/19/16 05: 18; Admin Dose 40 MG; Start 10/15/16 at 06:00 Atorvastatin Calcium (Lipitor) 40 mg QHS GTB Last administered on 10/18/16 21: 49; Admin Dose 40 MG; Start 10/15/16 at 21:00 Baclofen (Lioresal) 20 mg TID GTB Last administered on 10/19/16 13:25; Admin Dose 20 MG; Start 10/15/16 at 09:00 Clonidine (Catapres) 0.1 mg Q8 GTB Last administered on 10/19/16 13:26; Admin Dose 0.1 MG; Start 10/15/16 at 06:00 Diphenhydramine HCl (Benadryl Liquid Cup) 25 mg Q4H PRN GTB ITCHING; Start at 01:45 Gemfibrozil (Lopid) 600 mg BID GTB Last administered on 10/19/16 10:23; Admin Dose 600 MG; Start 10/15/16 at 09:00 Insulin Detemir (Levemir) 40 unit QAM SC Last administered on 10/19/16 11:03; Admin Dose 40 UNIT; Start 10/15/16 at 09:00 Loratadine (Claritin) 10 mg DAILY GTB Last administered on 10/19/16 10:24; Admin Dose 10 MG; Start 10/15/16 at 09:00 Metoprolol Tartrate (Lopressor) 25 mg BID GTB Last administered on 10/18/16 21 :49; Admin Dose 25 MG; Start 10/15/16 at 09:00 Simethicone (Mylicon) 160 mg DAILY GTB Last administered on 10/19/16 10:23; Admin Dose 160 MG; Start 10/15/16 at 09:00 Zinc Sulfate (Zinc Sulfate) 220 mg DAILY GTB Last administered on 10/19/16 10: 23; Admin Dose 220 MG; Start 10/15/16 at 09:00 Fish Oil (Fish Oil) 1,000 mg BID PO Last administered on 10/19/16 10:23; Admin Dose 1,000 MG; Start 10/15/16 at 09:00 Miscellaneous Information 1 ea NOTE XX ; Start 10/15/16 at 02:00 Glucose (Glutose) 15 gm Q15M PRN PO DECREASED GLUCOSE; Start 10/15/16 at 02:00 Glucose (Glutose) 22.5 gm Q15M PRN PO DECREASED GLUCOSE; Start 10/15/16 at 02: 00 Dextrose (D50w Syringe) 25 ml Q15M PRN IV DECREASED GLUCOSE; Start 10/15/16 at 02:00 Dextrose (D50w Syringe) 50 ml Q15M PRN IV DECREASED GLUCOSE; Start 10/15/16 at 02:00 Glucagon (Glucagen) 1 mg Q15M PRN IM DECREASED GLUCOSE; Start 10/15/16 at 02:00 Glucose (Glutose) 15 gm Q15M PRN BUCCAL DECREASED GLUCOSE; Start 10/15/16 at 02 :00 Diagnostic Test (Pha) (Accucheck) 1 ea 02 XX Last administered on 10/18/16 02: 06; Admin Dose 1 EA; Start 10/16/16 at 02:00 Insulin Aspart (Novolog Insulin Pen) NOVOLOG *MILD* ALGORI... Q4 SC Last administered on 10/19/16 13:33; Admin Dose 1 UNIT; Start 10/15/16 at 09:00 Collagenase (Santyl) 1 applic DAILY TOP Last administered on 10/19/16 09:00; Admin Dose 1 APPLIC; Start 10/15/16 at 12:00 IV Flush (NS 10 ml) 10 ml PRN PRN IV IV PROTOCOL; Start 10/17/16 at 17:00 Morphine Sulfate 2 mg 2 mg Q3H PRN IV PAIN Last administered on 10/17/16 19:17 ; Admin Dose 2 MG; Start 10/17/16 at 19:00 Imipenem/ Cilastatin Sodium (Primaxin 500 Mg/ 100 ml (Pmx)) 100 ml @ 100 mls/ hr Q12 IVPB Last administered on 10/19/16t 10:19; Admin Dose 100 MLS/HR; Start 10/18/16 at 14:00 Sodium Hypochlorite (Dakin'S (1/4 Strength)) 1 applic BID IRR ; Start 10/19/16 at 21:00 Assessment/Plan Chief Complaint/Hosp Course IMPRESSION AND PLAN: 1. Vent dependent respiratory failure. 2. History of advanced multiple sclerosis with encephalopathy. 3. Remote oliguric kidney failure, likely secondary to acute tubular necrosis. 4. Hyperkalemia. 5. Hypernatremia. 6. Dysphagia with G-tube. 7. Multiple decubitus ulcers, status post septic shock. The patient should continue with: 1. Mechanical ventilation. 2. Pulmonary toilet. 3. Broad-spectrum antibiotics. 4. Tube feeding as tolerated. 5. Renal recommendations. 6. DVT and GI prophylaxis. Problems: ULYSSES FORRESTER MD, [facility] Oct 19, 2016 14:39
--- NOTE | 2016-10-19 14:56 | CONS ---
Date/Time of Note Date/Time of Note DATE: 10/19/16 TIME: 14:54 Consult Date/Type/Reason Admit Date/Time Oct 15, 2016 at 01:39 Initial Consult Date Type of Consultation: ID Subjective no events, afebrile, nad Objective Vital Signs Date Time Temp Pulse Resp B/P Pulse Ox O2 Delivery O2 Flow Rate FiO2 10/19/16 14:20 71 16 100 30 10/19/16 11:09 98.7 140/73 10/17/16 21:00 Mechanical Ventilator Intake and Output 10/18/16 10/18/16 10/19/16 15:00 23:00 07:00 Intake Total 700 ml 1200 ml Output Total 1000 ml 1000 ml Balance -300 ml 200 ml Results/Medications Result Diagram: 10/19/16 0555 10/19/16 0555 Results 24 hrs Laboratory Tests Test 10/18/16 17:39 10/18/16 21:53 10/19/16 00:53 10/19/16 05:16 Bedside Glucose 137 130 142 217 Test 10/19/16 05:55 10/19/16 07:57 10/19/16 10:16 10/19/16 13:24 Anion Gap 22 H Basophils # 0.0 Basophils % 0.3 Blood Morphology Comment Blood Urea Nitrogen 83 H Calcium Level 9.1 Carbon Dioxide Level 22 Chloride Level 107 Creatinine 2.16 H Eosinophils # 0.3 Eosinophils % 5.4 Glucose Level 215 Hematocrit 29.0 L Hemoglobin 9.8 L Lymphocytes # 1.0 Lymphocytes % 20.1 Magnesium Level 2.5 Mean Corpuscular Hemoglobin 28.5 L Mean Corpuscular Hemoglobin Concent 33.7 Mean Corpuscular Volume 84.5 Mean Platelet Volume 9.9 Monocytes # 0.3 Monocytes % 5.1 Neutrophils # 3.6 Neutrophils % 69.1 Nucleated Red Blood Cells # 0.0 Nucleated Red Blood Cells % 0.0 Phosphorus Level 5.4 H Platelet Count 182 Potassium Level 3.9 Red Blood Count 3.43 L Red Cell Distribution Width 15.5 H Sodium Level 147 H White Blood Count 5.1 Lab Scanned Report REFERENCE LAB Bedside Glucose 224 H 162 Medications Current Medications Ondansetron HCl (Zofran Inj) 4 mg Q6H PRN IV NAUSEA AND/OR VOMITING; Start at 02:00 Nitroglycerin (Nitroglycerin (Sl Tab) 0.4 Mg) 1 tab Q5M PRN SL CHEST PAIN; Start 10/15/16 at 02:00 Acetaminophen (Tylenol Supp) 650 mg Q4H PRN OR PAIN LEVEL 1-3 OR FEVER; Start 10/15/16 at 02:00 Lorazepam (Ativan) 1 mg Q2H PRN IV ANXIETY; Start 10/15/16 at 02:00 Pantoprazole (Protonix Iv) 40 mg DAILY@06 IV Last administered on 10/19/16 05: 18; Admin Dose 40 MG; Start 10/15/16 at 06:00 Atorvastatin Calcium (Lipitor) 40 mg QHS GTB Last administered on 10/18/16 21: 49; Admin Dose 40 MG; Start 10/15/16 at 21:00 Baclofen (Lioresal) 20 mg TID GTB Last administered on 10/19/16 13:25; Admin Dose 20 MG; Start 10/15/16 at 09:00 Clonidine (Catapres) 0.1 mg Q8 GTB Last administered on 10/19/16 13:26; Admin Dose 0.1 MG; Start 10/15/16 at 06:00 Diphenhydramine HCl (Benadryl Liquid Cup) 25 mg Q4H PRN GTB ITCHING; Start at 01:45 Gemfibrozil (Lopid) 600 mg BID GTB Last administered on 10/19/16 10:23; Admin Dose 600 MG; Start 10/15/16 at 09:00 Insulin Detemir (Levemir) 40 unit QAM SC Last administered on 10/19/16 11:03; Admin Dose 40 UNIT; Start 10/15/16 at 09:00 Loratadine (Claritin) 10 mg DAILY GTB Last administered on 10/19/16 10:24; Admin Dose 10 MG; Start 10/15/16 at 09:00 Metoprolol Tartrate (Lopressor) 25 mg BID GTB Last administered on 10/18/16 21 :49; Admin Dose 25 MG; Start 10/15/16 at 09:00 Simethicone (Mylicon) 160 mg DAILY GTB Last administered on 10/19/16 10:23; Admin Dose 160 MG; Start 10/15/16 at 09:00 Zinc Sulfate (Zinc Sulfate) 220 mg DAILY GTB Last administered on 10/19/16 10: 23; Admin Dose 220 MG; Start 10/15/16 at 09:00 Fish Oil (Fish Oil) 1,000 mg BID PO Last administered on 10/19/16 10:23; Admin Dose 1,000 MG; Start 10/15/16 at 09:00 Miscellaneous Information 1 ea NOTE XX ; Start 10/15/16 at 02:00 Glucose (Glutose) 15 gm Q15M PRN PO DECREASED GLUCOSE; Start 10/15/16 at 02:00 Glucose (Glutose) 22.5 gm Q15M PRN PO DECREASED GLUCOSE; Start 10/15/16 at 02: 00 Dextrose (D50w Syringe) 25 ml Q15M PRN IV DECREASED GLUCOSE; Start 10/15/16 at 02:00 Dextrose (D50w Syringe) 50 ml Q15M PRN IV DECREASED GLUCOSE; Start 10/15/16 at 02:00 Glucagon (Glucagen) 1 mg Q15M PRN IM DECREASED GLUCOSE; Start 10/15/16 at 02:00 Glucose (Glutose) 15 gm Q15M PRN BUCCAL DECREASED GLUCOSE; Start 10/15/16 at 02 :00 Diagnostic Test (Pha) (Accucheck) 1 ea 02 XX Last administered on 10/18/16 02: 06; Admin Dose 1 EA; Start 10/16/16 at 02:00 Insulin Aspart (Novolog Insulin Pen) NOVOLOG *MILD* ALGORI... Q4 SC Last administered on 10/19/16 13:33; Admin Dose 1 UNIT; Start 10/15/16 at 09:00 Collagenase (Santyl) 1 applic DAILY TOP Last administered on 10/19/16 09:00; Admin Dose 1 APPLIC; Start 10/15/16 at 12:00 IV Flush (NS 10 ml) 10 ml PRN PRN IV IV PROTOCOL; Start 10/17/16 at 17:00 Morphine Sulfate 2 mg 2 mg Q3H PRN IV PAIN Last administered on 10/17/16 19:17 ; Admin Dose 2 MG; Start 10/17/16 at 19:00 Imipenem/ Cilastatin Sodium (Primaxin 500 Mg/ 100 ml (Pmx)) 100 ml @ 100 mls/ hr Q12 IVPB Last administered on 10/19/16 10:19; Admin Dose 100 MLS/HR; Start 10/18/16 at 14:00 Sodium Hypochlorite (Dakin'S (1/4 Strength)) 1 applic BID IRR ; Start 10/19/16 at 21:00 Assessment/Plan Chief Complaint/Hosp Course MICROBIOLOGY: Urine culture on admission grew Klebsiella and E. coli ESBL susceptible to imipenem, sputum culture growing gram-negative rods. Repeat urine culture growing gram-negative rods. Influenza swab was negative. INDWELLINGS: Trach, PEG, Joel, PICC line placed on 10/17/2016. DIAGNOSTICS: Renal ultrasound revealed multiple large bilateral renal calculi. ANTIMICROBIALS: Imipenem #2, Colistin INH ALLERGIES: SHE IS ALLERGIC TO PENICILLINS, VANCOMYCIN, CEPHALOSPORIN AND LEVAQUIN. PHYSICAL EXAMINATION: GENERAL: This is a well-developed, chronically ill-appearing, middle-aged woman who is lying comfortably in bed. HEENT: Head atraumatic, normocephalic. Sclerae anicteric. Buccal mucosa dry. NECK: Supple. Tracheostomy present. CHEST: Rise symmetrical. Breath sounds diminished to bases. HEART: S1, S2. ABDOMEN: Soft, bowel tones present. EXTREMITIES: Without cyanosis. ASSESSMENT: 1. Sepsis, present on admission secondary to multi-drug resistant urinary tract infection. 2. Chronic respiratory failure with sputum culture growing Pseudomonas aeruginosa likely colonized. 3. Acute respiratory failure. 4. Chronic encephalopathy. 5. Multiple decubitus. 6. Advanced multiple sclerosis with functional quadriplegia. PLAN: Remains stable, continue present care, abx, vent per pulmonary. Consider urology evaluation given multiple large kidney stones, continue local wound care, surgical, pulmonary and nephrology recommendations. [facility] staff Problems: FLEX DENNISON NP Oct 19, 2016 14:56
[2016-10-19] MEDS ORDERED: SODIUM HYPOCHLORITE 0.125% 473 ML BTL IRR SCH (21:00)
[2016-10-19] MEDS: ATORVASTATIN 40 MG TAB GTB SCH (21:24)
--- NOTE | 2016-10-20 00:47 | DS ---
DATE OF ADMISSION: 10/15/2016 DATE OF DISCHARGE: 10/19/2016 DISCHARGE DIAGNOSES: 1. Sepsis secondary to urinary tract infection with ESBL Klebsiella and Escherichia coli. Continue imipenem at the [facility] for another week. 2. Upper respiratory infection secondary to Pseudomonas. This may be secondary to colonization. Wi ll continue colistin inhaled for another week. 3. Advanced multiple sclerosis. Continue supportive care in the [facility]. 4. Decreased ulcers status post wound care with surgery. Continue Santyl cream p.r.n. 5. Acute on chronic kidney disease. Stable. 6. Multiple pressure ulcers. Continue wound care. 7. Chronic respiratory failure secondary to advanced multiple sclerosis, vent dependent. 8. Anemia of chronic disease, stable. HOSPITAL COURSE: The patient is a 56-year-old female with unfortunate history of advanced multiple sclerosis, bed bound, trach dependent with a PEG. The patient resides at a alf facility. The patient also has a history of basal cell cancer. The patient was brought from SNF for elevate d temperature. She was found to have fevers on arrival. The patient had a urine culture that showe d ESBL Klebsiella and E. coli. The patient was started on Primaxin. The patient was seen by ID. Ryan peters was also seen by nephrology for acute on chronic kidney disease. She was seen by surgery for multiple decubitus ulcers. The patient did have debridement. Wound care was recommended. The ashwine nt was seen by pulmonology. She is vent dependent. Patient was put on Primaxin for the UTI's and t he patient's trachea culture showed pseudomonas which is felt to be secondary to colonization. She was put on colistin inhaled. The patient was felt to be stable. Blood cultures were negative. Rec ommendation was continue Primaxin for another week at the [facility] and continue colistin. May peter belle, the patient's vitals, labs, physical exam were stable. There are no other acute issues. CONDITION ON DISCHARGE: Stable. DISPOSITION: To SNF. MEDICATIONS: The patient to continue usual home medications. She is also to continue Santyl cream for the wounds, colistin inhaled at 75 mg b.i.d. for a week and to clarify and Primaxin 500 mg IV every 12 hours for another 7 days. The patient to continue her other home medications. FOLLOWUP: The patient is to follow up with her physicians at the alf facility. Greater than 30 minutes spent coordinating discharge with the patient. Dictated By: LATA SULLIVAN MD BS/NTS Conf#: [id number] DID#: [id number]
[2016-10-20] MEDS ORDERED: LANSOPRAZOLE 30 MG CAP GTB SCH (06:00)
== END 2016-10-19 23:13 | DRG 870 ==
LOC: E/R 22:15 → ICU 10-15 01:39 → E/R 10-15 02:20 → TEL 10-18 00:30
PROVIDERS: ADMIT Student in an Organized Health Care Education/Training Program; ATTEND Student in an Organized Health Care Education/Training Program
PROC: 5A1955Z Respiratory Ventilation, Greater than 96 Consecutive Hours (ICD-10-PCS; principal; 2016-10-15)
PROC: 30233N1 Transfusion of Nonautologous Red Blood Cells into Peripheral Vein, Percutaneous Approach (ICD-10-PCS; 2016-10-15)
PROC: 02HV33Z Insertion of Infusion Device into Superior Vena Cava, Percutaneous Approach (ICD-10-PCS; 2016-10-17)
PROC: B548ZZA Ultrasonography of Superior Vena Cava, Guidance (ICD-10-PCS; 2016-10-17)
DX: A41.51 Sepsis due to Escherichia coli [E. coli] (principal); J96.20 Acute and chronic respiratory failure, unspecified whether with hypoxia or hypercapnia; R65.21 Severe sepsis with septic shock; G93.40 Encephalopathy, unspecified; G93.1 Anoxic brain damage, not elsewhere classified; L89.154 Pressure ulcer of sacral region, stage 4; Z99.11 Dependence on respirator [ventilator] status; L89.324 Pressure ulcer of left buttock, stage 4; E11.22 Type 2 diabetes mellitus with diabetic chronic kidney disease; R53.2 Functional quadriplegia; L89.314 Pressure ulcer of right buttock, stage 4; N39.0 Urinary tract infection, site not specified; N17.9 Acute kidney failure, unspecified; L97.919 Non-pressure chronic ulcer of unspecified part of right lower leg with unspecified severity; A41.89 Other specified sepsis; Z93.0 Tracheostomy status; E78.5 Hyperlipidemia, unspecified; G35 Multiple sclerosis; N31.9 Neuromuscular dysfunction of bladder, unspecified; Z93.1 Gastrostomy status; Z85.828 Personal history of other malignant neoplasm of skin; R13.10 Dysphagia, unspecified; E83.9 Disorder of mineral metabolism, unspecified; E87.5 Hyperkalemia; D63.8 Anemia in other chronic diseases classified elsewhere; R33.9 Retention of urine, unspecified; I12.9 Hypertensive chronic kidney disease with stage 1 through stage 4 chronic kidney disease, or unspecified chronic kidney disease; N18.9 Chronic kidney disease, unspecified; Z16.24 Resistance to multiple antibiotics; L98.499 Non-pressure chronic ulcer of skin of other sites with unspecified severity; L08.9 Local infection of the skin and subcutaneous tissue, unspecified; N20.0 Calculus of kidney; Z88.0 Allergy status to penicillin; Z88.1 Allergy status to other antibiotic agents; J06.9 Acute upper respiratory infection, unspecified; B96.5 Pseudomonas (aeruginosa) (mallei) (pseudomallei) as the cause of diseases classified elsewhere; L89.621 Pressure ulcer of left heel, stage 1; L89.892 Pressure ulcer of other site, stage 2
CPT/HCPCS: 36430; 36569; 36600; 71010; 76775; 76937; 80048; 80053; 80061; 81001; 81003; 82043; 82306; 82803; 82962; 83036; 83605; 83735; 83970; 84100; 84155; 84300; 84443; 84484; 85014; 85018; 85025; 85610; 85730; 86850; 86870; 86900; 86901; 86902; 86920; 87040; 87070; 87081; 87086; 87400; 93005; 94002; 94003; 94640; 94664; 96374; 96375; C9113; J0692; J0743; J0886; J1200; J1815; J1940; J2270; J2543; J3243; J7030; J7040; P9016

== ENCOUNTER 2016-11-15 16:50 | Inpatient (IN) | payer OTHER ==
[~2016-11-15] VITALS: Ht 152.4 cm; Wt 59.1 kg
[~2016-11-15 16:50] MED LIST: ACET-2047 GTB; ASC500 GTB; ATOR40TA68 GTB; BACL20TA GTB; CLON-379 GTB; DIPH25CA6 GTB; DOCU250C58 PO; GEMF600T60 GTB; GLUC1KIT IJ; INSU100I27 SQ; LORA10TA3 GTB; MAGN400T28 GTB; METO-448 GTB; NOVO3I SC; OMEG-135 GTB; PANT40TA4 GTB; SIME80TA53 GTB; ZINC220T GTB
--- NOTE | 2016-11-15 18:25 | RADRPT ---
PROCEDURE: XR Chest. CLINICAL INDICATION: Upper GI bleed TECHNIQUE: Single frontal view of the chest was obtained COMPARISON: 10/17/2016 FINDINGS: The heart and mediastinum are within normal limits. There is a tracheostomy tube in place. There are bibasilar infiltrates. There is a new 2.7 cm right perihilar nodular opacity . There is no pleural effusion or pneumothorax. RPTAT: AA IMPRESSION: 2.7 cm right perihilar nodular opacity. New bibasilar infiltrates. Further evaluation with CT chest is recommended. .Hai Lynn MD, MD Date Time Electronically viewed and signed by .Hai Lynn MD, on 11/15/2016 18:24 .S/
[2016-11-15 19:09] LABS: BASOPHILS % 0.3 % (0.0-2.0); EOSINOPHILS # 0.2 10^3/ul (0.0-0.5); EOSINOPHILS % 2.7 % (0.0-7.0); LYMPHOCYTES # 0.9 10^3/ul (0.8-2.9); LYMPHOCYTES % 13.4 % (15.0-51.0); MEAN CORPUSCULAR HEMOGLOBIN 28.5 pg (29.0-33.0); MEAN CORPUSCULAR HGB CONC 33.5 g/dl (32.0-37.0); MEAN CORPUSCULAR VOLUME 85.2 fl (82.0-101.0); MEAN PLATELET VOLUME 8.4 fl (7.4-10.4); MONOCYTE # 0.4 10^3/ul (0.3-0.9); MONOCYTES % 5.7 % (0.0-11.0); NEUTROPHIL # 5.5 10^3/ul (1.6-7.5); NEUTROPHILS % 77.9 % (39.0-77.0); PLATELET COUNT 318 10^3/UL (140-440); RED BLOOD COUNT 2.82 10^6/ul (4.20-5.40); RED CELL DISTRIBUTION WIDTH 15.8 % (11.5-14.5)
[2016-11-15 19:14] LABS: CONDITION 1; LH ANALYZER COMMENTS 1
[2016-11-15 19:20] LABS: INR 1.16; PROTIME 14.9 Sec (12.2-14.2); PT RATIO 1.2
[2016-11-15 19:21] LABS: PARTIAL THROMBOPLASTIN TIME 41.2 Sec (25.0-35.0)
[2016-11-15 19:23] LABS: CHLORIDE 103 mmol/L (97-110)
[2016-11-15 19:24] LABS: ALBUMIN 3.9 g/dl (3.3-4.9); SODIUM 147 mmol/L (135-144)
[2016-11-15 19:25] LABS: POTASSIUM 4.1 mmol/L (3.5-5.1)
[2016-11-15 19:27] LABS: ALANINE AMINOTRANSFERASE 6 IU/L (13-69); ALBUMIN/GLOBULIN RATIO 0.69; ALKALINE PHOSPHATASE 220 IU/L (42-121); ANION GAP 24 (8-16); ASPARTATE AMINO TRANSFERASE 32 IU/L (15-46); BLOOD UREA NITROGEN 45 mg/dl (7-20); CALCIUM 12.5 mg/dl (8.4-10.2); CARBON DIOXIDE 24 mmol/L (21-31); CREATININE 1.59 mg/dl (0.44-1.00); GLUCOSE 151 mg/dl (70-220); TOTAL PROTEIN 9.5 g/dl (6.1-8.1)
[2016-11-15] MEDS ORDERED: SIME80TA GTB (19:31)
[2016-11-15 19:40] LABS: TROPONIN-I < 0.012 ng/ml (0.00-0.12)
[2016-11-15] MEDS ORDERED: ACETAMINOPHEN 325 MG TAB PO ONE (20:00)
--- NOTE | 2016-11-15 20:43 | ERA ---
ER Documentation Chief Complaint Date/Time DATE: 11/15/16 TIME: 20:37 Chief Complaint HPI 56-year-old woman brought in by EMS from retirement for anemia. She has end- stage multiple sclerosis and is on mechanical ventilator with a tracheostomy tube. She is minimally responsive and bedbound. She was recently treated with IV antibiotics for sepsis secondary to urinary tract infections decubitus wounds and pneumonia. She has had no fevers or chills, no blood per rectum or melena. HPI was extremely limited as patient is nonverbal, it was supplemented by reviewing past medical history, retirement records, speaking to EMS, and nursing staff. ROS All systems reviewed and are negative except as per history of present illness. Medications Home Meds Reported Medications Simethicone* (Anti-Gas/80*) 80 Mg Tab.chew, 160 MG GTB DAILY Y for DISTENSION/ GAS/BLOATING, TAB.CHEW 11/15/16 Metoprolol Tartrate* (Lopressor*) 25 Mg Tab, 25 MG GTB BID, #60 TAB HOLD IF SBP<110; HR<60 10/14/16 Baclofen* (Baclofen*) 20 Mg Tablet, 20 MG GTB TID, TAB 10/14/16 Magnesium Oxide* (Magnesium Oxide*) 400 Mg Tablet, 400 MG GTB BID, TAB 10/14/16 Gemfibrozil* (Gemfibrozil*) 600 Mg Tablet, 600 MG GTB BID, TAB 10/14/16 Clonidine Hcl* (Clonidine Hcl*) 0.1 Mg Tab, 0.1 MG GTB Q8, TAB IF SBP>160 10/14/16 Atorvastatin* (Atorvastatin*) 40 Mg Tablet, 40 MG GTB QHS, #30 TAB 10/14/16 Zinc Sulfate* (Zinc Sulfate*) 220 Mg Tablet, 220 MG GTB DAILY, TAB 10/14/16 Loratadine* (Loratadine*) 10 Mg Tablet, 10 MG GTB DAILY, #30 TAB 10/14/16 Insulin Detemir (Levemir Flextouch) 100 Unit/1 Ml Insuln.pen, 40 UNIT SQ QAM 10/14/16 Acetaminophen* (Acetaminophen*) 650 Mg Tablet, 650 MG GTB Q4 Y for ELEVATED TEMPERATURE, #30 TAB OR FEVER 10/14/16 Diphenhydramine Hcl* (Diphenhydramine Hcl*) 25 Mg Capsule, 25 MG GTB Q4 Y for ITCHING, CAP 10/14/16 Pantoprazole* (Pantoprazole*) 40 Mg Tablet.dr, 40 MG GTB AC BREAKFAST, TAB 10/14/16 Discontinued Reported Medications Insulin Aspart* (Novolog Insulin Pen*) 100 Unit/Ml Soln, 0 SC .SLIDING SCALE AC , EA 10/14/16 [place]-3 Fatty Acids/Fish Oil (Fish Oil 1,000 mg Capsule) 1 Each Capsule, 1 EACH GTB BID, CAP 10/14/16 Ascorbic Acid (Vitamin C) 500 Mg Tab, 500 MG GTB TID, TAB 10/14/16 Simethicone (GAS RELIEF) 80 Mg Tab.chew, 160 MG GTB DAILY, TAB.CHEW 10/14/16 Glucagon,Human Recombinant (Glucagon Emergency Kit) 1 Mg Kit, 1 MG IJ PRN Y for PRN, KIT INJECT ONCE IN 20-30 MIN,IF BS<40 10/14/16 Docusate Sodium* (Colace*) 250 Mg Capsule, 250 MG PO TID, #90 CAP TAKE 06:00-14:00-22:00 10/14/16 Allergies Allergies: Coded Allergies: Penicillins (Verified Allergy, Severe, 11/15/16) Cephalosporins (Verified Allergy, Unknown, FLUSHING, TACHYCARDIA, 11/15/16) levofloxacin (Verified Allergy, Unknown, 11/15/16) vancomycin (Verified Allergy, Unknown, 11/15/16) PMhx/Soc End-stage multiple sclerosis with diffuse muscular wasting in upper and lower extremity paralysis, neurogenic bladder, diabetes mellitus, chronic kidney disease, pressure ulcers, respiratory failure with a tracheostomy, anemia, basal cell carcinoma History of Surgery: Yes (TRACH, G TUBE) Hx Respiratory Disorders: Yes (resp failure, CHRONIC TRACH TO VENT) Hx Cardiac Disorders: Yes (DYSLIPIDEMIA) Hx Psychiatric Problems: No Hx Miscellaneous Medical Probl: No Hx Substance Use: No (UNKNOWN) Smoking Status: Unknown if ever smoked FmHx Family History: No diabetes Physical Exam Vitals Vital Signs Date Time Temp Pulse Resp B/P Pulse Ox O2 Delivery O2 Flow Rate FiO2 11/15/16 22:12 106 16 106/71 100 Mechanical Ventilator 11/15/16 21:00 105 16 110/78 100 Mechanical Ventilator 11/15/16 20:40 108 16 100 50 11/15/16 20:00 107 16 122/76 100 Mechanical Ventilator 11/15/16 19:30 100.3 110 20 115/74 100 11/15/16 19:30 107 16 110/79 100 Mechanical Ventilator 11/15/16 19:15 115 16 100 50 Physical Exam GENERAL: Poorly developed, emaciated woman, unresponsive, afebrile HEENT: Dry mucous membranes, pale conjunctiva, pupils constricted and minimally reactive, tracheostomy in place on mechanical ventilator NEURO: Nonverbal, diffuse upper and lower extremity contractures, eyes open, pupils constricted and minimally reactive CARDIAC: Tachycardic and regular, no murmurs rubs or gallops LUNGS: Clear bilaterally no wheezing crackles or stridor on mechanical ventilator ABDOMEN: Soft nontender, no guarding, no rigidity, no rebound, no psoas sign no obturator sign. Normoactive bowel sounds SKIN: Warm and dry to touch, positive pressure ulcers to the back lower extremities, no lacerations or active bleeding EXTREMITIES: No clubbing cyanosis or edema, diffuse muscular wasting, callus bilaterally symmetrical PSYCH: Unable to assess Result Diagram: 11/15/16184911/15/161849 Results 24 hrs Laboratory Tests Test 11/15/16 18:50 Activated Partial Thromboplast Time 41.2Sec Alanine Aminotransferase (ALT/SGPT) 6IU/L Albumin 3.9g/dl Albumin/Globulin Ratio 0.69 Alkaline Phosphatase 220IU/L Anion Gap 24 Aspartate Amino Transf (AST/SGOT) 32IU/L Basophils # 0.010^3/ul Basophils % 0.3% Blood Morphology Comment Blood Urea Nitrogen 45mg/dl Calcium Level 12.5mg/dl Carbon Dioxide Level 24mmol/L Chloride Level 103mmol/L Creatinine 1.59mg/dl Direct Bilirubin 0.00mg/dl Eosinophils # 0.210^3/ul Eosinophils % 2.7% Globulin 5.60g/dl Glucose Level 151mg/dl Hematocrit 24.0% Hemoglobin 8.0g/dl INR International Normalized Ratio 1.16 Indirect Bilirubin 0.0mg/dl Lipase 351U/L Lymphocytes # 0.910^3/ul Lymphocytes % 13.4% Mean Corpuscular Hemoglobin 28.5pg Mean Corpuscular Hemoglobin Concent 33.5g/dl Mean Corpuscular Volume 85.2fl Mean Platelet Volume 8.4fl Monocytes # 0.410^3/ul Monocytes % 5.7% Neutrophils # 5.510^3/ul Neutrophils % 77.9% Nucleated Red Blood Cells # 0.010^3/ul Nucleated Red Blood Cells % 0.0/100WBC Platelet Count 17316^3/UL Potassium Level 4.1mmol/L Prothrombin Time 14.9Sec Prothrombin Time Ratio 1.2 Red Blood Count 2.8210^6/ul Red Cell Distribution Width 15.8% Sodium Level 147mmol/L Total Bilirubin 0.0mg/dl Total Protein 9.5g/dl Troponin I < 0.012ng/ml White Blood Count 7.010^3/ul Current Medications Medications (Trade) Dose Ordered Sig/Charlie Route PRN Reason Start Time Stop Time Status Last Admin Dose Admin Acetaminophen (Tylenol Tab) 650 mg ONCE ONCE PO 11/15/16 20:00 11/15/16 20:01 DC Procedures/MDM IV line was established patient was placed on children's nursery assistant rhythm strip revealed a sinus tachycardia at 110 bpm with upright P and T waves. Patient was afebrile. EKG performed, read by me: Sinus tachycardia at 105 bpm, normal axis, no acute ST segment changes, narrow QRS complex, with good R-wave progression in precordial leads. One view chest x-ray performed, read by me there is a tracheostomy in place and bibasilar infiltrates, no pneumothorax, no air under the diaphragm. His chest x -ray is improved compared to previous x-rays. I ordered transfusion 2 units PRBCs IV over 4 hours for anemia CBC revealed anemia with hematocrit of 24, electrolytes revealed dehydration with a BUN/creatinine of 45/1.6, liver function tests revealed nonspecific abnormalities with an elevated lipase at 351, troponin was negative. Critical Care: Time: 35 minutes, this was time separate from other procedures. Treatments/Evaluations: Close monitoring and treatment of unstable vital signs, cardiorespiratory, and neurologic status, while maintaining tight balance of fluid, respiratory, and cardiac interventions. Patient will be admitted to telemetry setting for continued medical management and continued IV transfusion Departure Diagnosis: Primary Impression: Respiratory failure Qualified Code: J96.21 - Acute on chronic respiratory failure with hypoxia Additional Impressions: Multiple sclerosis Anemia Qualified Code: D64.9 - Anemia, unspecified type Dehydration Condition: ALEXANDRIA Ribeiro MD Nov 15, 2016 20:43
[2016-11-15 22:50] VITALS: PULSE 110; RESP 16
[2016-11-15 22:55] VITALS: BP 94/57; PULSE 107; RESP 16
[2016-11-15 23:00] VITALS: BP 94/57; RESP 16
[2016-11-16] VITALS (28 sets, daily range): BP systolic 92–118; BP diastolic 49–68; PULSE 88–111; RESP 16–20; Ht 152.4 cm; Wt 59.1 kg
[2016-11-16] MEDS ORDERED: ONDANSETRON 4 MG INJ IV PRN (01:30)
[2016-11-16] MEDS ORDERED: DIPHENHYDRAMINE 25 MG CAP GTB PRN (01:30)
[2016-11-16] MEDS ORDERED: DIPHENHYDRAMINE 2.5 MG/ML 5ML CUP GTB PRN (02:00)
[2016-11-16 02:09] LABS: Allen Test ACCEPTAB; Arterial Base Excess 0.6 mmol/L (-3.0-3); Arterial COHb 0 % (0.0-3.0); Arterial HCO3 24.7 mmol/L (22.0-26.0); Arterial MetHb 0.2 % (0.0-1.5); Arterial Total Hemglobin 7.7 g/dl (12.0-18.0); Blood Gas Low PEEP Setting 0 cmH2O; MODE VENT-AC
[2016-11-16] MEDS: LANSOPRAZOLE 30 MG CAP GTB SCH (06:19)
[2016-11-16 07:08] LABS: POTASSIUM 3.8 mmol/L (3.5-5.1)
[2016-11-16 07:09] LABS: BASOPHILS % 0.2 % (0.0-2.0); EOSINOPHILS # 0.1 10^3/ul (0.0-0.5); EOSINOPHILS % 1.5 % (0.0-7.0); HEMATOCRIT 24.2 % (37.0-47.0); LYMPHOCYTES # 1.1 10^3/ul (0.8-2.9); LYMPHOCYTES % 13.8 % (15.0-51.0); MEAN CORPUSCULAR HEMOGLOBIN 28.5 pg (29.0-33.0); MEAN CORPUSCULAR HGB CONC 33.1 g/dl (32.0-37.0); MEAN CORPUSCULAR VOLUME 85.9 fl (82.0-101.0); MEAN PLATELET VOLUME 8.8 fl (7.4-10.4); MONOCYTE # 0.4 10^3/ul (0.3-0.9); MONOCYTES % 5.2 % (0.0-11.0); NEUTROPHIL # 6.6 10^3/ul (1.6-7.5); NEUTROPHILS % 79.3 % (39.0-77.0); PLATELET COUNT 344 10^3/UL (140-440); RED BLOOD COUNT 2.82 10^6/ul (4.20-5.40); RED CELL DISTRIBUTION WIDTH 15.8 % (11.5-14.5); UNCORRECTED WBC 8.3 10^3/ul (4.8-10.8); WHITE BLOOD COUNT 8.3 10^3/ul (4.8-10.8)
[2016-11-16 07:10] LABS: ALBUMIN/GLOBULIN RATIO 0.7; CREATININE 1.71 mg/dl (0.44-1.00); IRON 34 ug/dl (35-150); TOTAL PROTEIN 9.7 g/dl (6.1-8.1)
[2016-11-16 07:11] LABS: CALCIUM 12.1 mg/dl (8.4-10.2)
[2016-11-16 07:19] LABS: TOTAL IRON BINDING CAPACITY 206 ug/dl (241-421)
[2016-11-16 07:25] LABS: CONDITION 1; LH ANALYZER COMMENTS 1
[2016-11-16] MEDS: METOPROLOL 25 MG TAB GTB SCH ×2 (08:36→21:59)
[2016-11-16] MEDS: LORATADINE 10 MG TAB GTB SCH (08:36)
[2016-11-16] MEDS: BACLOFEN 10 MG TAB GTB SCH ×3 (08:36→21:57)
[2016-11-16] MEDS: ZINC SULFATE 220 MG CAP GTB SCH (08:36)
[2016-11-16] MEDS: GEMFIBROZIL 600 MG TAB GTB SCH ×2 (08:37→22:00)
[2016-11-16] MEDS: MAGNESIUM OXIDE 400 MG TAB GTB SCH ×2 (08:37→21:56)
[2016-11-16] MEDS ORDERED: INSULIN DETEMIR [LEVEMIR] 3ML CART SC SCH (09:00)
--- NOTE | 2016-11-16 10:01 | HP ---
DATE OF ADMISSION: 11/15/2016 TIME SEEN: 2300 CHIEF COMPLAINT: The patient sent from SNF for anemia. HISTORY OF PRESENT ILLNESS: The patient is a 56-year-old female with severe multiple sclerosis, angy t/trach dependent, chronic respiratory failure who is bedbound, history of multiple pressure ulcers, and a recent history of ESBL urinary tract infection, possible pseudomonas upper respiratory infect ion, and anemia of chronic disease who was sent from a retirement facility for anemia. The [facility] is not able to provide any history, so information is gathered from chart review and from ER ph ysician. When the patient presented to the ER, she was found to have a hemoglobin of 8. Her sodium 147, crea tinine 1.59, and calcium 12.5, and a lipase of 1351. A blood transfusion order was placed, but due to problems with obtaining a consent, not able to start a blood transfusion overnight. REVIEW OF SYSTEMS: Unable to fully assess. PAST MEDICAL HISTORY: As per HPI. PAST SURGICAL HISTORY: Tracheostomy and G-tube. SOCIAL HISTORY: Unknown. ALLERGIES: PLEASE SEE RECONCILED MEDICATION SHEET. HOME MEDICATIONS: Please see reconciled medication sheet. PHYSICAL EXAMINATION: GENERAL: The patient is trached, lying in bed, no acute distress. HEENT: Normocephalic, atraumatic. Pupils are reactive to light. CARDIOVASCULAR: Slightly tachycardic with regular rhythm. LUNGS: Clear anteriorly. Good air movement. ABDOMEN: Soft. There is a G-tube in place. EXTREMITIES: There is trace pitting edema. LABORATORY: Sodium 147. Hemoglobin 8, creatinine 1.59, calcium 12.5, lipase 251. IMPRESSION: 1. Anemia of chronic disease. 2. Vent/trach-dependent respiratory failure. 3. Severe multiple sclerosis. 4. Debility/bed bound. Multiple chronic pressure ulcers. 5. Dysphagia status post G-tube. 6. Recently diagnosed extended spectrum beta-lactamase urinary tract infection. 7. Renal insufficiency. 8. Probable pancreatitis with mildly elevated lipase. PLAN: The patient will receive blood transfusion after getting a consent. We will check her iron p rofile. We will check an FOBT. She will be continued on her home medications with adjustments as n eeded. We will continue vent/trach support. Will correct electrolytes as needed. We will avoid ne phrotoxins and renally dose all medication. Dictated By: AMALIA WALDEN/HERI Conf#: [id number] [facility]#: [id number]
--- NOTE | 2016-11-16 10:36 | PN ---
Date/Time of Note Date/Time of Note DATE: 11/16/16 TIME: 10:33 Assessment/Plan VTE Prophylaxis VTE Prophylaxis Intervention: SCD's Lines/Catheters IV Catheter Type (from Nrs): Saline Lock Urinary Cath still in place: Yes Reason Cath still needed: skin wounds contaminated by urine Assessment/Plan Assessment/Plan 1. Anemia of chronic disease. 2. Vent/trach-dependent respiratory failure. 3. Severe multiple sclerosis. 4. Debility/bed bound. Multiple chronic pressure ulcers. 5. Dysphagia status post G-tube. 6. Recently diagnosed extended spectrum beta-lactamase urinary tract infection. 7. Renal insufficiency. 8. Probable pancreatitis with mildly elevated lipase. Plan: FOBT< Stool for occult blood monitor Hb plan for Transfusion once consent is available Vent management as per pulmonary Time spent is more than 45 minutes Subjective 24 Hr Interval Summary Free Text/Dictation no acute events, BP stable , Hb 8.0 Exam/Review of Systems Vital Signs Vitals Vital Signs Date Time Temp Pulse Resp B/P Pulse Ox O2 Delivery O2 Flow Rate FiO2 11/16/16 09:10 92 16 100 40 11/16/16 07:51 100.1 99/54 11/15/16 22:55 Mechanical Ventilator Intake and Output 11/15/16 11/15/16 11/16/16 15:00 23:00 07:00 Intake Total 155 ml Balance 155 ml Exam GENERAL: The patient is trached, lying in bed, no acute distress. HEENT: Normocephalic, atraumatic. Pupils are reactive to light. CARDIOVASCULAR: Slightly tachycardic with regular rhythm. LUNGS: Clear anteriorly. Good air movement. ABDOMEN: Soft. There is a G-tube in place. EXTREMITIES: There is trace pitting edema Results Result Diagram: 11/16/16 0600 11/16/16 0600 Results 24 hrs Laboratory Tests Test 11/15/16 18:50 11/16/16 01:50 11/16/16 06:00 11/16/16 08:31 Activated Partial Thromboplast Time 41.2 H Alanine Aminotransferase (ALT/SGPT) 6 L 11 L Albumin 3.9 4.0 Albumin/Globulin Ratio 0.69 0.70 Alkaline Phosphatase 220 H 230 H Anion Gap 24 H 23 H Aspartate Amino Transf (AST/SGOT) 32 36 Basophils # 0.0 0.0 Basophils % 0.3 0.2 Blood Morphology Comment Blood Urea Nitrogen 45 H 43 H Calcium Level 12.5 H 12.1 H Carbon Dioxide Level 24 24 Chloride Level 103 105 Creatinine 1.59 H 1.71 H Direct Bilirubin 0.00 0.00 Eosinophils # 0.2 0.1 Eosinophils % 2.7 1.5 Globulin 5.60 H 5.70 H Glucose Level 151 184 Hematocrit 24.0 L 24.2 L Hemoglobin 8.0 L 8.0 L INR International Normalized Ratio 1.16 Indirect Bilirubin 0.0 0.0 Lipase 351 H Lymphocytes # 0.9 1.1 Lymphocytes % 13.4 L 13.8 L Mean Corpuscular Hemoglobin 28.5 L 28.5 L Mean Corpuscular Hemoglobin Concent 33.5 33.1 Mean Corpuscular Volume 85.2 85.9 Mean Platelet Volume 8.4 8.8 Monocytes # 0.4 0.4 Monocytes % 5.7 5.2 Neutrophils # 5.5 6.6 Neutrophils % 77.9 H 79.3 H Nucleated Red Blood Cells # 0.0 0.0 Nucleated Red Blood Cells % 0.0 0.0 Platelet Count 318 # 344 Potassium Level 4.1 3.8 Prothrombin Time 14.9 H Prothrombin Time Ratio 1.2 Red Blood Count 2.82 L 2.82 L Red Cell Distribution Width 15.8 H 15.8 H Sodium Level 147 H 148 H Total Bilirubin 0.0 L 0.0 L Total Protein 9.5 H 9.7 H Troponin I < 0.012 White Blood Count 7.0 # 8.3 Arterial Blood HCO3 24.7 Arterial Blood Base Excess 0.6 Arterial Blood Oxygen Saturation 97.2 [place] Test ACCEPTAB Arterial Blood Gas Puncture Site Left Radial Arterial Blood Carboxyhemoglobin 0 Arterial Blood Date Drawn 11/16/2016 2:00:48 AM Arterial Blood Methemoglobin 0.2 Arterial Blood pCO2 (Temp correct) 37.5 Arterial Blood pH (Temp corrected) 7.437 Arterial Blood pO2 (Temp corrected) 100.1 H Blood Gas A-a O2 Differential 142.0 H Blood Gas Actual Respiration Rate 16 Blood Gas Inspiratory Pressure 24.0 Blood Gas Low PEEP Setting 0 Blood Gas Modality VENT-AC Blood Gas Notified Time 11/16/2016 2:09:52 AM Blood Gas Notified Whom JMD Blood Gas Respiration Rate 16.0 Blood Gas Specimen Source Blood arterial Blood Gas Temperature 37.0 Blood Gas Tidal Volume 450.0 FiO2 40.0 Oxyhemoglobin Percent 97.0 Total Hemoglobin 7.7 L Ferritin 2050.0 H Iron Level 34 L Percent Iron Saturation 17 L Total Iron Binding Capacity 206 L Bedside Glucose 201 Medications Medications Current Medications Ondansetron HCl (Zofran Inj) 4 mg Q6H PRN IV NAUSEA AND/OR VOMITING; Start at 01:30 Acetaminophen (Tylenol Liquid) 650 mg Q6H PRN GTB ELEVATED TEMPERATURE; Start 11/16/16 at 01:30 Atorvastatin Calcium (Lipitor) 40 mg QHS GTB ; Start 11/16/16 at 21:00 Baclofen (Lioresal) 20 mg TID GTB Last administered on 11/16/16 08:36; Admin Dose 20 MG; Start 11/16/16 at 09:00 Gemfibrozil (Lopid) 600 mg BID GTB Last administered on 11/16/16 08:37; Admin Dose 600 MG; Start 11/16/16 at 09:00 Insulin Detemir (Levemir) 40 unit QAM SC Last administered on 11/16/16 08:40; Admin Dose 40 UNIT; Start 11/16/16 at 09:00 Loratadine (Claritin) 10 mg DAILY GTB Last administered on 11/16/16 08:36; Admin Dose 10 MG; Start 11/16/16 at 09:00 Magnesium Oxide (Mag-Ox 400) 400 mg BID GTB Last administered on 11/16/16 08: 37; Admin Dose 400 MG; Start 11/16/16 at 09:00 Metoprolol Tartrate (Lopressor) 25 mg BID GTB Last administered on 11/16/16 08 :36; Admin Dose 25 MG; Start 11/16/16 at 09:00 Lansoprazole (Prevacid) 30 mg DAILY@06 GTB Last administered on 11/16/16 06:19 ; Admin Dose 30 MG; Start 11/16/16 at 06:00 Simethicone (Mylicon) 160 mg DAILY PRN GTB DISTENSION/GAS/BLOATING; Start 11/16 at 01:30 Zinc Sulfate (Zinc Sulfate) 220 mg DAILY GTB Last administered on 11/16/16 08: 36; Admin Dose 220 MG; Start 11/16/16 at 09:00 Diphenhydramine HCl (Benadryl Liquid Cup) 25 mg Q6H PRN GTB ITCHING; Start at 02:00 Clonidine (Catapres) 0.1 mg Q6H PRN GTB SBP >160; Start 11/16/16 at 02:06 LIZETTE ALEX MD Nov 16, 2016 10:36
[2016-11-16] MEDS ORDERED: GLUCOSE GEL 15 GRAM TUBE BUCCAL PRN (11:30)
[2016-11-16] MEDS ORDERED: GLUCAGON 1 MG INJ IM PRN (11:30)
[2016-11-16] MEDS ORDERED: DEXTROSE 50% 50 ML SYRINGE IV PRN ×2 (11:30)
[2016-11-16] MEDS ORDERED: GLUCOSE GEL 15 GRAM TUBE PO PRN ×2 (11:30)
[2016-11-16] MEDS: ACETAMINOPHEN 650MG/20.3ML CUP GTB PRN (18:08)
[2016-11-16] MEDS ORDERED: SOD CHLORIDE 0.9% 1,000 ML IV ONE (18:30)
[2016-11-16] MEDS ORDERED: ATORVASTATIN 40 MG TAB GTB SCH (21:00)
[2016-11-16] MEDS ORDERED: VITAMIN A & D 5 GM OINT PACKET TOP ONE (21:52)
[2016-11-16] MEDS ORDERED: DIPHENHYDRAMINE 50 MG INJ IV ONE (22:30)
[2016-11-16] MEDS ORDERED: ACETAMINOPHEN 650MG/20.3ML CUP GTB ONE (22:30)
[2016-11-17] VITALS (26 sets, daily range): BP systolic 100–142; BP diastolic 57–71; PULSE 89–113; RESP 16–20
[2016-11-17] MEDS: INSULIN ASPART [NOVOLOG] 3 ML PEN SC SCH ×4 (00:28→18:55)
[2016-11-17 01:46] LABS: ADD UMIC YES; URINE BILIRUBIN (Dip) NEGATIVE (NEGATIVE); URINE BLOOD (Dip) 3+ (NEGATIVE); URINE COLOR DK. YELLOW (YELLOW); URINE GLUCOSE (Dip) NEGATIVE (NEGATIVE); URINE KETONES (Dip) NEGATIVE (NEGATIVE); URINE LEUKOCYTE ESTERASE (Dip) 2+ (NEGATIVE); URINE NITRITE (Dip) NEGATIVE (NEGATIVE); URINE TOTAL PROTEIN (Dip) 2+ (NEGATIVE); URINE UROBILINOGEN (Dip) 0.2 E.U./dL (0.1-1.0)
[2016-11-17 03:13] LABS: BACTERIA,URINE MODERATE; SQUAMOUS EPITHELIAL CELL,UR FEW
[2016-11-17] MEDS: LANSOPRAZOLE 30 MG CAP GTB SCH (06:52)
[2016-11-17 07:38] LABS: BASOPHILS % 0.1 % (0.0-2.0); EOSINOPHILS # 0.1 10^3/ul (0.0-0.5); EOSINOPHILS % 1.2 % (0.0-7.0); HEMOGLOBIN 10.1 g/dl (12.0-16.0); INR 1.11; LYMPHOCYTES # 0.9 10^3/ul (0.8-2.9); LYMPHOCYTES % 9.2 % (15.0-51.0); MEAN CORPUSCULAR HEMOGLOBIN 29.1 pg (29.0-33.0); MEAN CORPUSCULAR HGB CONC 33.6 g/dl (32.0-37.0); MEAN CORPUSCULAR VOLUME 86.6 fl (82.0-101.0); MEAN PLATELET VOLUME 8.4 fl (7.4-10.4); MONOCYTE # 0.5 10^3/ul (0.3-0.9); MONOCYTES % 5.2 % (0.0-11.0); NEUTROPHIL # 8.6 10^3/ul (1.6-7.5); NEUTROPHILS % 84.3 % (39.0-77.0); PLATELET COUNT 314 10^3/UL (140-440); PROTIME 14.3 Sec (12.2-14.2); PT RATIO 1.1; RED BLOOD COUNT 3.46 10^6/ul (4.20-5.40); RED CELL DISTRIBUTION WIDTH 15.5 % (11.5-14.5); UNCORRECTED WBC 10.3 10^3/ul (4.8-10.8); WHITE BLOOD COUNT 10.3 10^3/ul (4.8-10.8)
[2016-11-17 07:39] LABS: PARTIAL THROMBOPLASTIN TIME 38.4 Sec (25.0-35.0)
[2016-11-17 07:41] LABS: CONDITION 1; LH ANALYZER COMMENTS 1
[2016-11-17 07:43] LABS: ALBUMIN 3.8 g/dl (3.3-4.9); CHLORIDE 108 mmol/L (97-110)
[2016-11-17 07:44] LABS: POTASSIUM 3.7 mmol/L (3.5-5.1); SODIUM 149 mmol/L (135-144)
[2016-11-17 07:46] LABS: ALBUMIN/GLOBULIN RATIO 0.73; ANION GAP 25 (8-16); ASPARTATE AMINO TRANSFERASE 27 IU/L (15-46); BLOOD UREA NITROGEN 45 mg/dl (7-20); CARBON DIOXIDE 20 mmol/L (21-31); CREATININE 1.52 mg/dl (0.44-1.00)
[2016-11-17 07:47] LABS: ALKALINE PHOSPHATASE 202 IU/L (42-121); CALCIUM 10.6 mg/dl (8.4-10.2); GLUCOSE 207 mg/dl (70-220)
[2016-11-17 07:55] LABS: ALANINE AMINOTRANSFERASE < 6 IU/L (13-69)
[2016-11-17] MEDS ORDERED: INSULIN GLARGINE [LANtus] 3 ML PEN SC SCH (08:00)
[2016-11-17] MEDS: BACLOFEN 10 MG TAB GTB SCH ×3 (08:18→22:52)
[2016-11-17] MEDS: ZINC SULFATE 220 MG CAP GTB SCH (08:18)
[2016-11-17] MEDS: METOPROLOL 25 MG TAB GTB SCH ×2 (08:18→22:53)
[2016-11-17] MEDS: LORATADINE 10 MG TAB GTB SCH (08:19)
[2016-11-17] MEDS: GEMFIBROZIL 600 MG TAB GTB SCH (08:19)
[2016-11-17] MEDS: MAGNESIUM OXIDE 400 MG TAB GTB SCH ×2 (08:19→22:52)
[2016-11-17] MEDS: COLLAGENASE 30 GM TUBE TOP SCH (08:21)
[2016-11-17] MEDS: ACETAMINOPHEN 650MG/20.3ML CUP GTB PRN (12:00)
--- NOTE | 2016-11-17 13:59 | PN ---
Date/Time of Note Date/Time of Note DATE: 11/17/16 TIME: 13:50 Assessment/Plan VTE Prophylaxis VTE Prophylaxis Intervention: LMWH Lines/Catheters IV C[facility]ter Type (from [facility] Peripheral IV Urinary Cath still in place: Yes Reason Cath still needed: urinary retention Assessment/Plan Chief Complaint/Hosp Course Subjective: 56-year-old female admitted with abnormal lab anemia. Restrained. No mention of bleeding. Transfuse last night. Today abdomen looks distended, lots of oral secretions. She is chronically encephalopathic I believe. Last treated for ESBL cystitis last month. Objective: Vital signs stable PE: No pallor or icterus. Mild bitemporal wasting. Trach C/D/ Reg, no m/r/g Diminished but clear breath sounds bilaterally Bs diminished, mildly hyperactive. Distended. Tender? No r/r/g. No flank ecchymosis No edema. Chr hypotonia/Contractures. Multiple chr wounds. Bilat upper extremity in sling. A/P 1. Anemia possibly symptomatic. Sp transfusion. Appears ALBARO. Ro Gib/colitis 2. VDRF; stable cont vent 3. Functional quadriplegia 4. Chr MS w contractures and spasms; full code?? 5. Pancreatitis? Hold statin, check CT 6. Ileus? 7. Chr dysphagia/PEG tube/malnutrition; restart feeds 8. Recent ESBL cystitis. 9. 2.7 mm pul perihilar nodule? not a surgical candidate 10. CKD 11. Ho basal cell ca 12. Upper ext fracture in splint 13. Fever, possible aspiration pneumonia vs pancreatitis/colitis induced. Add Zosyn. Problems: Exam/Review of Systems Vital Signs Vitals Vital Signs Date Time Temp Pulse Resp B/P Pulse Ox O2 Delivery O2 Flow Rate FiO2 11/17/16 13:19 104 11/17/16 11:46 101.0 16 123/64 100 11/17/16 11:05 35 11/17/16 04:00 Mechanical Ventilator Intake and Output 11/16/16 11/16/16 11/17/16 15:00 23:00 07:00 Intake Total 2200 ml 840 ml Output Total 900 ml 1075 ml Balance 1300 ml -235 ml Results Result Diagram: 11/17/16 0710 11/17/16 0710 Results 24 hrs Laboratory Tests Test 11/16/16 15:38 11/16/16 22:30 11/17/16 00:11 11/17/16 06:49 Bedside Glucose 204 238 H 203 Urine Bacteria MODERATE Urine Bilirubin NEGATIVE Urine Clarity CLOUDY Urine Color DK. YELLOW Urine Glucose NEGATIVE Urine Hemoglobin 3+ H Urine Ketones NEGATIVE Urine Leukocyte Esterase 2+ H Urine Microscopic RBC 10-25 Urine Microscopic WBC >200 Urine Nitrite NEGATIVE Urine Specific [place] 1.020 Urine Squamous Epithelial Cells FEW Urine Total Protein 2+ H Urine Urobilinogen 0.2 E.U./dL Urine pH 7.0 Test 11/17/16 07:10 11/17/16 08:17 11/17/16 12:43 Activated Partial Thromboplast Time 38.4 H Alanine Aminotransferase (ALT/SGPT) < 6 L Albumin 3.8 Albumin/Globulin Ratio 0.73 Alkaline Phosphatase 202 H Anion Gap 25 H Aspartate Amino Transf (AST/SGOT) 27 Basophils # 0.0 Basophils % 0.1 Blood Morphology Comment Blood Urea Nitrogen 45 H Calcium Level 10.6 H Carbon Dioxide Level 20 L Chloride Level 108 Creatinine 1.52 H Direct Bilirubin 0.00 Eosinophils # 0.1 Eosinophils % 1.2 Globulin 5.20 H Glucose Level 207 Hematocrit 30.0 #L Hemoglobin 10.1 #L INR International Normalized Ratio 1.11 Indirect Bilirubin 0.0 Lymphocytes # 0.9 Lymphocytes % 9.2 L Mean Corpuscular Hemoglobin 29.1 Mean Corpuscular Hemoglobin Concent 33.6 Mean Corpuscular Volume 86.6 Mean Platelet Volume 8.4 Monocytes # 0.5 Monocytes % 5.2 Neutrophils # 8.6 H Neutrophils % 84.3 H Nucleated Red Blood Cells # 0.0 Nucleated Red Blood Cells % 0.0 Platelet Count 314 Potassium Level 3.7 Prothrombin Time 14.3 H Prothrombin Time Ratio 1.1 Red Blood Count 3.46 #L Red Cell Distribution Width 15.5 H Sodium Level 149 H Total Bilirubin 0.0 L Total Protein 9.0 H White Blood Count 10.3 # Bedside Glucose 219 269 H Medications Medications Current Medications Ondansetron HCl (Zofran Inj) 4 mg Q6H PRN IV NAUSEA AND/OR VOMITING; Start at 01:30 Acetaminophen (Tylenol Liquid) 650 mg Q6H PRN GTB ELEVATED TEMPERATURE Last administered on 11/16/16t 18:08; Admin Dose 650 MG; Start 11/16/16 at 01:30 Atorvastatin Calcium (Lipitor) 40 mg QHS GTB Last administered on 11/16/16 21: 56; Admin Dose 40 MG; Start 11/16/16 at 21:00 Baclofen (Lioresal) 20 mg TID GTB Last administered on 11/17/16 08:18; Admin Dose 20 MG; Start 11/16/16 at 09:00 Gemfibrozil (Lopid) 600 mg BID GTB Last administered on 11/17/16 08:19; Admin Dose 600 MG; Start 11/16/16 at 09:00 Loratadine (Claritin) 10 mg DAILY GTB Last administered on 11/17/16 08:19; Admin Dose 10 MG; Start 11/16/16 at 09:00 Magnesium Oxide (Mag-Ox 400) 400 mg BID GTB Last administered on 11/17/16 08: 19; Admin Dose 400 MG; Start 11/16/16 at 09:00 Metoprolol Tartrate (Lopressor) 25 mg BID GTB Last administered on 11/17/16 08 :18; Admin Dose 25 MG; Start 11/16/16 at 09:00 Lansoprazole (Prevacid) 30 mg DAILY@06 GTB Last administered on 11/17/16 06:52 ; Admin Dose 30 MG; Start 11/16/16 at 06:00 Simethicone (Mylicon) 160 mg DAILY PRN GTB DISTENSION/GAS/BLOATING; Start 11/16 at 01:30 Zinc Sulfate (Zinc Sulfate) 220 mg DAILY GTB Last administered on 11/17/16 08: 18; Admin Dose 220 MG; Start 11/16/16 at 09:00 Diphenhydramine HCl (Benadryl Liquid Cup) 25 mg Q6H PRN GTB ITCHING; Start at 02:00 Clonidine (Catapres) 0.1 mg Q6H PRN GTB SBP >160; Start 11/16/16 at 02:06 Miscellaneous Information 1 ea NOTE XX ; Start 11/16/16 at 11:30 Glucose (Glutose) 15 gm Q15M PRN PO DECREASED GLUCOSE; Start 11/16/16 at 11:30 Glucose (Glutose) 22.5 gm Q15M PRN PO DECREASED GLUCOSE; Start 11/16/16 at 11: 30 Dextrose (D50w Syringe) 25 ml Q15M PRN IV DECREASED GLUCOSE; Start 11/16/16 at 11:30 Dextrose (D50w Syringe) 50 ml Q15M PRN IV DECREASED GLUCOSE; Start 11/16/16 at 11:30 Glucagon (Glucagen) 1 mg Q15M PRN IM DECREASED GLUCOSE; Start 11/16/16 at 11:30 Glucose (Glutose) 15 gm Q15M PRN BUCCAL DECREASED GLUCOSE; Start 11/16/16 at 11 :30 Collagenase (Santyl) 1 applic DAILY TOP Last administered on 11/17/16 08:21; Admin Dose 1 APPLIC; Start 11/17/16 at 09:00 Insulin Glargine (Lantus) 10 unit DAILY@08 SC Last administered on 11/17/16 08 :27; Admin Dose 10 UNIT; Start 11/17/16 at 08:00 Insulin Aspart (Novolog Insulin Pen) NOVOLOG *MODERATE* ALGORITHM Q6 SC Last administered on 11/17/16 06:58; Admin Dose 4 UNIT; Start 11/17/16 at 00:00 JONI ERVIN MD Nov 17, 2016 13:59
[2016-11-17] MEDS ORDERED: PIPER-TAZO 2.25 GM (PMX) 50 ML IVPB SCH (14:00)
[2016-11-17] MEDS ORDERED: NACL 3% FOR INHALATION 15 ML NEBU NEB ONE (14:00)
[2016-11-17] MEDS ORDERED: ALBUTEROL 0.083% (NEB) 2.5 MG/3 ML AMP HHN PRN (14:00)
[2016-11-17] MEDS ORDERED: BARIUM SULF 2% 450 ML BTL (BERRY SMOOTHIE) PO ONE (14:00)
[2016-11-17] MEDS: SOD CHLORIDE 0.9% 1,000 ML IV SCH (15:00)
[2016-11-17] MEDS: ALBUTEROL 0.083% (NEB) 2.5 MG/3 ML AMP HHN SCH ×2 (15:32→20:25)
--- NOTE | 2016-11-17 16:08 | RADRPT ---
PROCEDURE: XR Abdomen. CLINICAL INDICATION: Abdominal pain. TECHNIQUE: AP abdomen x-ray. COMPARISON: None. FINDINGS: Enteric tube overlies the body of the stomach. Staghorn calculi overlie the kidneys. Nonspecific bow el gas pattern without free air or obstruction. The osseus structures are unremarkable. Joel catheter in place. 5 mm calcification most compatible with phlebolith overlies the right UVJ IMPRESSION: 1. No free air or obstruction. Chronic findings as discussed above. RPTAT:AAJJ Physician Blanca Date Time Electronically viewed and signed by Physician Blanca on 11/17/2016 16:08 UZAIR/
[2016-11-17] MEDS ORDERED: BISACODYL 10 MG SUPP PR ONE (16:30)
[2016-11-17] MEDS: DIPHENHYDRAMINE 50 MG INJ IV PRN ×2 (16:46→22:51)
[2016-11-17] MEDS: METHYLPREDNISOLONE 125 MG INJ IV SCH ×2 (16:46→22:51)
[2016-11-17] MEDS ORDERED: VANCOMYCIN IV PER PHARMACY XX SCH (17:30)
[2016-11-17] MEDS ORDERED: AMIKACIN IV PER PHARMACY XX SCH (17:30)
--- NOTE | 2016-11-17 17:33 | CONS ---
DATE OF ADMISSION: 11/15/2016 DATE OF CONSULTATION: 11/17/2016 TYPE OF CONSULTATION: Infectious disease. REASON FOR CONSULTATION: Antibiotic management. HISTORY OF PRESENT ILLNESS: Ms. Pollard is a very unfortunate 56-year-old female who co mes in from SNF with anemia. PROBLEMS INCLUDE: 1. Severe multiple sclerosis. 2. Ventilatory dependent respiratory therapy. 3. Respiratory failure. 4. Tracheostomy. 5. Dysphagia, status post G-tube placement. 6. Joel catheter in place. 7. Multiple pressure sores. 8. History of ESBL urinary tract infection. 9. Possible pseudomonas upper respiratory tract infection. 10. Anemia of chronic disease. The patient is in awful shape and probably should be DNR or hospice care. She had a hemoglobin of 8 in the emergency room. Lipase of 1351. She also has a fracture or had a fracture of her left arm and is currently wrapped in anatomic position. On admission, her white count was 7.0, white count t mal is 10.3, H and H of 10.1 and 30, platelet count 314,000. BUN and creatinine are 45/1.52. Urin e is 2+ leukocyte esterase, greater than 200 white cells per high powered field. Chest x-ray shows a 2.7 cm right perihilar nodular opacity and new bibasilar infiltrates. Further evaluation with CT chest was recommended. Perihilar nodular opacity and new bibasilar infiltrates. The patient is cur rently on methylprednisolone 60 mg q.8h. She was given Zosyn. MICROBIOLOGY: Negative for MRSA. Abdominal x-ray: No free air or obstruction. PAST MEDICAL HISTORY: Operations as outlined. FAMILY HISTORY: Noncontributory. SOCIAL HISTORY: She lives in a halfway facility. She certainly does not smoke, drink or ab use drugs. ALLERGIES: NONE TO PENICILLIN, SULFA OR FOODS. MEDICATIONS: Per chart. REVIEW OF SYSTEMS: As per HPI. ALLERGIES: CEPHALOSPORINS, PENICILLIN, LEVOFLOXACIN, LEVAQUIN AND VANCOMYCIN. REVIEW OF SYSTEMS: Noncontributory. PHYSICAL EXAMINATION: GENERAL: The patient is a chronically ill-appearing female who is obtunded on a respirator. VITAL SIGNS: Stable. The face is florid red. HEENT: Within normal limits. NECK: Supple. Tracheostomy in place. CHEST: Decreased breath sounds at the bases. HEART: Without murmur or gallop. She is slightly tachycardic. ABDOMEN: Soft, nontender. G-tube in place. No organosplenomegaly or masses. EXTREMITIES: Without cyanosis or clubbing. She has trace pitting edema. RECTAL AND GENITAL: Deferred. NEUROLOGIC: No focal neurological abnormalities. IMPRESSION AND PLAN: The patient is chronically ill. She has probable pneumonitis, possibly aspira tion. She probably has pancreatitis with elevated lipase as well. She is allergic to virtually ever ything. Her urine shows greater than 200 white cells per high-power field and she has 2+ leukocyte esterase. I am going to put her on vancomycin and amikacin. I will dictate my findings to the [facility] pitalist. Dictated By: CRISTINA HUANG MD, JD/HERI Conf#: [id number] DID#: [id number]
[2016-11-17] MEDS: DAPTOMYCIN 360 MG in SOD CHLORIDE 0.9% 100 ML IVPB SCH (20:14)
--- NOTE | 2016-11-17 20:47 | RADRPT ---
Vent Rate: 95 bpm RR Interval: 0 msec [place] Interval: 154 msec QRS Duration: 74 msec QT Interval: 380 msec QTC Interval: 477 msec P-R-T [place]: 58 - 24 - 29 degrees Normal sinus rhythm ST amp; T wave abnormality, consider anterior ischemia Prolonged QT Abnormal ECG Electronically Signed By: Pierre Alvarez [id number]
--- NOTE | 2016-11-17 22:12 | RADRPT ---
PROCEDURE: CT abdomen and pelvis without contrast. CLINICAL INDICATION: Abdominal distension. Elevated lipase. TECHNIQUE: CT scan of the abdomen and pelvis without contrast was performed and is reconstructed a t 2.5 mm contiguous axial intervals from the dome of the diaphragm to the inferior pubic rami.. The patient was scanned without intravenous contrast. Sagittal and coronal reformatted images were obt ained from the axial source images. The calculated radiation dose measures 899 mGy centimeters. The CTDI measures 16 mGy. COMPARISON: None. FINDINGS: The lung bases are clear of any alveolar infiltrate or nodule. No effusion is seen. There is atelec tasis at the lung bases. The liver is enlarged measuring 23 cm. No mass or ductal dilatation is present. No gallstones ar e visualized. No splenic, adrenal or pancreatic abnormalities present. Kidneys are of normal size and contour. No hydronephrosis is present. There are bilateral staghor n calculi. Noted are multiple bilateral cortical renal cysts. Distended isolated right-sided calyc es cannot be ruled out. Ureters are of normal course and caliber with no stone. Joel catheter is seen in an empty urinary bladder. Uterus is been removed. No adnexal mass is visualized. There is no aneurysm. No adenopathy is present. There are multiple visible but nonpathologically enlarged retroperitoneal nodes. No bowel mass or obstruction is present. There is a large volume of retained fecal material in the rectum. Percutaneous gastrostomy tube is seen in the stomach. The appendix is normal. No phlegmo n, ascites or pneumoperitoneum is visualized. There are chronic superior endplate compression fractures of the L1 and L3. IMPRESSION: No evidence of pancreatitis. Bibasilar atelectasis. Hepatomegaly. Bilateral staghorn renal calculi. Bilateral cortical renal cysts. Question multiple isolated diste nded right renal calyces. No gross obstruction. Post hysterectomy. Fecal impaction. Chronic compression fractures L1 and L3. .Clovis Marr MD, MD Date Time Electronically viewed and signed by .Clovis Marr MD, on 11/17/2016 22:11 .A/
[2016-11-17] MEDS: AMIKACIN 375 MG in SOD CHLORIDE 0.9% 100 ML IVPB SCH (22:50)
[2016-11-17] MEDS: FAMOTIDINE 20 MG INJ IV SCH (22:51)
[2016-11-18] VITALS (25 sets, daily range): BP systolic 86–141; BP diastolic 50–76; PULSE 65–113; RESP 16–26
[2016-11-18] MEDS ORDERED: INSULIN ASPART [NOVOLOG] 3 ML PEN SC ONE ×3 (00:30→15:30)
[2016-11-18] MEDS: INSULIN ASPART [NOVOLOG] 3 ML PEN SC SCH ×4 (00:44→18:42)
[2016-11-18] MEDS: ALBUTEROL 0.083% (NEB) 2.5 MG/3 ML AMP HHN SCH ×4 (01:20→19:36)
[2016-11-18] MEDS: MAGNESIUM HYDROXIDE 30ML CUP PO PRN ×2 (03:04→12:30)
[2016-11-18] MEDS: SOD CHLORIDE 0.9% 1,000 ML IV SCH ×2 (03:08→16:51)
[2016-11-18] MEDS: METHYLPREDNISOLONE 125 MG INJ IV SCH (06:17)
[2016-11-18] MEDS: LANSOPRAZOLE 30 MG CAP GTB SCH (06:17)
[2016-11-18 07:05] LABS: HEMATOCRIT 28.8 % (37.0-47.0); HEMOGLOBIN 9.7 g/dl (12.0-16.0); LYMPHOCYTES # 0.4 10^3/ul (0.8-2.9); MEAN CORPUSCULAR HEMOGLOBIN 29.3 pg (29.0-33.0); MEAN CORPUSCULAR HGB CONC 33.5 g/dl (32.0-37.0); MEAN CORPUSCULAR VOLUME 87.3 fl (82.0-101.0); MEAN PLATELET VOLUME 8.8 fl (7.4-10.4); MONOCYTES % 0.4 % (0.0-11.0); NEUTROPHIL # 7.4 10^3/ul (1.6-7.5); NEUTROPHILS % 94.6 % (39.0-77.0); PLATELET COUNT 307 10^3/UL (140-440); UNCORRECTED WBC 7.9 10^3/ul (4.8-10.8); WHITE BLOOD COUNT 7.9 10^3/ul (4.8-10.8)
[2016-11-18 07:15] LABS: CONDITION 1; LH ANALYZER COMMENTS 1
[2016-11-18 07:46] LABS: ALBUMIN 3.7 g/dl (3.3-4.9)
[2016-11-18 07:47] LABS: CHLORIDE 109 mmol/L (97-110); POTASSIUM 3.9 mmol/L (3.5-5.1); SODIUM 146 mmol/L (135-144)
[2016-11-18 07:49] LABS: ALBUMIN/GLOBULIN RATIO 0.69; ALKALINE PHOSPHATASE 198 IU/L (42-121); ANION GAP 22 (8-16); ASPARTATE AMINO TRANSFERASE 28 IU/L (15-46); BLOOD UREA NITROGEN 39 mg/dl (7-20); CARBON DIOXIDE 19 mmol/L (21-31); CREATININE 1.24 mg/dl (0.44-1.00)
[2016-11-18 07:50] LABS: CALCIUM 9.8 mg/dl (8.4-10.2); GLUCOSE 342 mg/dl (70-220); MAGNESIUM 2.4 mg/dl (1.7-2.5); PHOSPHORUS 2.9 mg/dl (2.5-4.9)
[2016-11-18 07:55] LABS: ALANINE AMINOTRANSFERASE < 6 IU/L (13-69)
[2016-11-18 08:21] LABS: THYROID STIMULATING HORMONE 0.096 MIU/L (0.465-4.680)
[2016-11-18] MEDS ORDERED: FAMOTIDINE 20 MG INJ IV SCH (09:00)
[2016-11-18] MEDS: FAMOTIDINE 20 MG INJ IV SCH ×3 (09:07→21:00)
[2016-11-18] MEDS: ZINC SULFATE 220 MG CAP GTB SCH (09:07)
[2016-11-18] MEDS: BACLOFEN 10 MG TAB GTB SCH ×3 (09:07→20:42)
[2016-11-18] MEDS: MAGNESIUM OXIDE 400 MG TAB GTB SCH ×2 (09:07→20:42)
[2016-11-18] MEDS: METOPROLOL 25 MG TAB GTB SCH ×2 (09:08→20:42)
[2016-11-18] MEDS: COLLAGENASE 30 GM TUBE TOP SCH (09:08)
[2016-11-18] MEDS: INSULIN GLARGINE [LANtus] 3 ML PEN SC SCH (09:15)
--- NOTE | 2016-11-18 10:27 | PDOCDIS ---
Discharge Instructions CONDITION Patient Condition: Fair HOME CARE INSTRUCTIONS: Special Diet: tube feeding OTHER ORDERS: Other Orders: In case of having any fever or chills call PCP immediately SAIMA CALABRESE MD Nov 18, 2016 10:27
--- NOTE | 2016-11-18 13:43 | PN ---
DATE: 11/18/2016 INFECTIOUS DISEASE PROGRESS NOTE SUBJECTIVE: The patient is lying comfortably in bed. Nonverbal, noncommunicative. T-max 101, T-current 98. WBC today is 7.9, platelets 307, neutrophils 94.6. BUN 39, creatinine 1.24 . MICROBIOLOGY: Sputum culture growing gram-negative rods. Urinalysis on admission was grossly posit tammi. Cultures are pending. No blood cultures in the computer. CT of the abdomen and pelvis reveale d bibasilar atelectasis, bilateral staghorn renal calculi. No gross obstruction. Fecal impaction. Chronic compression fractures L1 and L3. INDWELLINGS: Trach, PEG, Joel. ANTIMICROBIALS: The patient is on: 1. Amikacin. 2. Daptomycin. ALLERGIES: 1. PENICILLIN. 2. CEPHALOSPORIN. 3. LEVAQUIN. 4. VANCOMYCIN. PHYSICAL EXAMINATION: GENERAL: Chronically ill-appearing, middle-aged woman, who is lying comfortably in bed. HEENT: Head atraumatic, normocephalic. Sclerae are anicteric. Buccal mucosa dry. NECK: Supple. Tracheostomy present. CHEST: Chest rise symmetrical. Breath sounds diminished to the bases. HEART: S1, S2. ABDOMEN: Distended, soft. Bowel tones present. EXTREMITIES: Contractures, with trace edema. SKIN: No jaundice, no cyanosis. Multiple decubitus. ASSESSMENT: 1. Systemic inflammatory response syndrome with persistent fevers. 2. Urinary tract infection. 3. Multiple decubitus. 4. Possible pneumonia. 5. Chronic respiratory failure. 6. Chronic encephalopathy. 7. ALLERGIES TO MULTIPLE ANTIBIOTICS, INCLUDING KEFLEX, PENICILLIN, LEVAQUIN AND VANCOMYCIN. PLAN: The patient remains stable, covered with the appropriate antimicrobials. Cultures are pendin g. Continue present care. Dictated By: FLEX DENNISON RECORD PRESS OPERATOR for CRISTINA WHITFIELD/HERI Conf#: [id number] DID#: [id number]
--- NOTE | 2016-11-18 14:00 | DS ---
DATE OF ADMISSION: 11/15/2016 DATE OF DISCHARGE: 11/18/2016 CONSULTANTS: 1. Dr. Zavaleta DISCHARGE DIAGNOSIS (ES): 1. Symptomatic anemia, status post transfusion, likely secondary to colitis. 2. Ventilator dependent respiratory failure. 3. Functional quadriplegia. 4. Chronic MS with contracture and spasm. 5. Pancreatitis, resolved ____ in 1 week. 5. Ileus. Continue IV antibiotics. 6. Chronic dysphagia, PEG tube nutrition. 7. Recent ESBL cystitis. 8. Chronic kidney disease, stable. 9. A 2.7 mm prominent perihilar nodule, not a surgical candidate. 10. History of basal cell carcinoma, stable. 11. Upper extremity fracture in a splint, stable. 12. Pneumonitis. Infectious disease doctor was consulted. Continue IV antibiotics. 13. Urinary tract infection. Continue amikacin and Daptomycin. LABORATORIES: WBC 7.9, hemoglobin 9.7, hematocrit 28.8, platelets 307. Sodium 146, potassium 3.9, chloride 109, bicarbonate 19, BUN 39, creatinine 1.24, glucose 342, calcium 9.8. LFTs all within no rmal limits. TSH is 0.096. Lipase is normal at 111. MEDICATIONS: 1. Tylenol. 2. DuoNeb. 3. Amikacin as per pharmacy. 4. Baclofen 10 mg. 5. Clonidine 0.1 mg. 6. Santyl. 7. Daptomycin. 8. Benadryl. 9. Insulin sliding scale via NovoLog. 10. Levemir 40 units. 11. Prevacid 30 mg. 12. Magnesium oxide 400 mg. 13. Metoprolol 25 mg. 14. Zofran 4 mg. 15. Simethicone ____ mg. 16. Normal saline at 75 mL 17. Zinc sulfate 220 mg. 18. Lipitor 40 mg started on ____. 19. Gemfibrozil 600 mg started on ___. 20. Loratadine 10 mg 21. Cetirizine ointment. 20. Free water 100 mL via G-tube q.6h. ALLERGIES: PENICILLIN, CEPHALOSPORIN, VANCOMYCIN AND LEVAQUIN. DISPOSITION: To alf facility. Tube feeding, Glucerna at 35 mL per hour. Hold ____ gre ater than 100 mL. HOSPITAL COURSE: This is an unfortunate 56-year-old female who [facility] with a history of CVA, multiple sclerosis, vent and trach dependent, PEG tube dependent, chronic r espiratory failure, was bed bound, history of multiple pressure ulcers, recent history of ESBL urina ry tract infection and possible pneumonitis, upper respiratory tract infection, anemia of chronic di sease who was sent from [facility] for anemia. Upon arrival to emergency room, the pa lorraine's hemoglobin was found to be 8, creatinine 1.59, sodium 147, calcium 12.5, lipase of 1351. Th e patient's G-tube feeding was placed on hold, also Gemfibrozil and statin was placed on hold. She was started on IV fluid. Infectious disease doctor was consulted. Patient was typed and screened a nd transfused 2 units of packed red blood cells. Hemoglobin and hematocrit have been stable after w ith having the G-tube feeding, the patient's lipase started to improve significantly. Patient's G-t ube has been started on 11/17/2016 and her lipase has continued to be stable. In regard to her anem ia, the patient's hemoglobin has improved status post transfusion. This is likely secondary to ileu s. The patient as stated above was started on IV antibiotics. IMPRESSION: Acute on chronic renal disease. The patient was started on IV fluid. Her renal panel has been improving. Hypertension, her blood pressure is well controlled on metoprolol. The patient is vent and trach dependent and was seen by respiratory therapy. Her vitals have been stable, oxyg en saturation 97% to 100% on FIO2 30%. The patient was evaluated by infectious disease doctor, the patient due to her history of ESBL was placed on amikacin and daptomycin by infectious disease paola coleman. The patient's urine was found to be positive for urinary tract infection with leukocytes that ar e positive too. WBC greater than 200, bacteria moderate. At this time, the patient is afebrile. Vitals: Temperature 97.9, pulse 67, respiration 19, blood pressure 111/62, oxygen 100% on vent, FiO 2 of 30%, waiting for infectious disease doctor evaluation and to give their recommendation regardin g the time frame for the IV antibiotics treatment at [facility]. Dictated By: SAIMA MAGANA/NTS Conf#: [id number] [facility]#: [id number]
--- NOTE | 2016-11-18 14:30 | CONS ---
Date/Time of Note Date/Time of Note DATE: 11/18/16 TIME: 14:20 Assessment/Plan Assessment/Plan Additional Assessment/Plan Ventilator settings; assist control of 12, tidal volume 450, PEEP of 5, 30% FiO2. Chest x-ray was reviewed from 14 of this month which is showing bibasilar atelectatic changes. CT abdomen also was reviewed which is showing similar findings. Bilateral renal calculi are present. CT abdomen not revealing any evidence of pancreatic inflammation. Assessment recommendations; 1. Patient admitted for UTI and sepsis. 2. Sacral decubitus ulcers. 3. Advanced multiple sclerosis, ventilator dependent. With very poor mental status. 4. Possibly acute appendicitis. Continue current treatment. Prognosis is poor. 4. Hypertension and diabetes. Consultation Date/Type/Reason Admit Date/Time Nov 15, 2016 at 22:42 Date of Consultation: Nov 18, 2016 Type of Consultation: Pulmonary Hx of Present Illness Patient is a 56-year-old lady who was admitted for treatment of sepsis as well as anemia. Pulmonary consultation obtained for management of respiratory failure. Patient on mechanical ventilation chronically due to underlying severe multiple sclerosis. History present illness; 6-year-old lady admitted for treatment of severe sepsis as well as anemia. She was obtained from medical records as the patient is unable to give any history whatsoever by herself. The time I saw the patient the patient is on mechanical ventilation via tracheostomy patient is unresponsive. Patient on medical records, the patient has remained hemodynamically stable. Past medical history; 1. History of severe multiple sclerosis ventilator dependent. 2. History of multiple episodes of UTI. 3. Status post G-tube and tracheostomy. 4. Decubitus ulcers. Next Medications; were reviewed. Allergies; are to cephalosporins, penicillins, Levaquin and vancomycin. Social history; noncontributory. Family history; not available. Occupational history; patient is disabled. Review of systems; currently unable to be obtained. General examination; middle aged woman, on ventilator via tracheostomy unresponsive. Currently in no distress. Social History Smoking Status: Never smoker Exam/Review of Systems Vital Signs Vitals Vital Signs Date Time Temp Pulse Resp B/P Pulse Ox O2 Delivery O2 Flow Rate FiO2 11/18/16 13:10 96 26 97 30 11/18/16 11:47 98.0 130/69 11/17/16 04:00 Mechanical Ventilator Intake and Output 11/17/16 11/17/16 11/18/16 15:00 23:00 07:00 Intake Total 1845 ml 1664.0 ml Output Total 1300 ml Balance 545 ml 1664.0 ml Exam H EENT examination; supple neck, no JVD. No lymphadenopathy. Tracheostomy in place with clean insertion site. Pupils are midsize and reactive to light. Dentition is fair. Chest examination; clear to auscultation bilaterally. S1-S2 audible, no murmurs. Regular rhythm. Abdomen examination; soft, G-tube in place. No organomegaly. Bowel sounds audible. Extremity examination; no peripheral edema. Back examination; reveals dressing applied over the sacral area. DIE SINKER examination; patient remains unresponsive. Results Result Diagram: 11/18/16 0545 11/18/16 0545 Results 24 hrs Laboratory Tests Test 11/17/16 18:36 11/17/16 21:36 11/17/16 23:50 11/18/16 04:00 Bedside Glucose 240 H 318 H 336 H Stool Occult Blood POSITIVE Test 11/18/16 05:45 11/18/16 06:15 11/18/16 11:49 11/18/16 13:37 Alanine Aminotransferase (ALT/SGPT) < 6 L Albumin 3.7 Albumin/Globulin Ratio 0.69 Alkaline Phosphatase 198 H Anion Gap 22 H Aspartate Amino Transf (AST/SGOT) 28 Basophils # 0.0 Basophils % 0.0 Blood Morphology Comment Blood Urea Nitrogen 39 H Calcium Level 9.8 Carbon Dioxide Level 19 L Chloride Level 109 Creatinine 1.24 H Direct Bilirubin 0.00 Eosinophils # 0.0 Eosinophils % 0.0 Globulin 5.30 H Glucose Level 342 H Hematocrit 28.8 L Hemoglobin 9.7 L Hemoglobin A1c 6.0 H Indirect Bilirubin 0.0 Lactic Acid Level 3.4 H Lipase 111 Lymphocytes # 0.4 L Lymphocytes % 5.0 L Magnesium Level 2.4 Mean Corpuscular Hemoglobin 29.3 Mean Corpuscular Hemoglobin Concent 33.5 Mean Corpuscular Volume 87.3 Mean Platelet Volume 8.8 Monocytes # 0.0 L Monocytes % 0.4 Neutrophils # 7.4 Neutrophils % 94.6 H Nucleated Red Blood Cells # 0.0 Nucleated Red Blood Cells % 0.0 Phosphorus Level 2.9 Platelet Count 307 Potassium Level 3.9 Red Blood Count 3.30 L Red Cell Distribution Width 16.0 H Sodium Level 146 H Thyroid Stimulating Hormone (TSH) 0.096 L Total Bilirubin 0.0 L Total Protein 9.0 H White Blood Count 7.9 # Bedside Glucose 349 H 414 *H 387 H Medications Medications Current Medications Ondansetron HCl (Zofran Inj) 4 mg Q6H PRN IV NAUSEA AND/OR VOMITING; Start at 01:30 Acetaminophen (Tylenol Liquid) 650 mg Q6H PRN GTB ELEVATED TEMPERATURE Last administered on 11/17/16 12:00; Admin Dose 650 MG; Start 11/16/16 at 01:30 Baclofen (Lioresal) 20 mg TID GTB Last administered on 11/18/16 12:22; Admin Dose 20 MG; Start 11/16/16 at 09:00 Magnesium Oxide (Mag-Ox 400) 400 mg BID GTB Last administered on 11/18/16 09: 07; Admin Dose 400 MG; Start 11/16/16 at 09:00 Metoprolol Tartrate (Lopressor) 25 mg BID GTB Last administered on 11/18/16 09 :08; Admin Dose 25 MG; Start 11/16/16 at 09:00 Lansoprazole (Prevacid) 30 mg DAILY@06 GTB Last administered on 11/18/16 06:17 ; Admin Dose 30 MG; Start 11/16/16 at 06:00 Simethicone (Mylicon) 160 mg DAILY PRN GTB DISTENSION/GAS/BLOATING Last administered on 11/18/16 12:30; Admin Dose 160 MG; Start 11/16/16 at 01:30 Zinc Sulfate (Zinc Sulfate) 220 mg DAILY GTB Last administered on 11/18/16 09: 07; Admin Dose 220 MG; Start 11/16/16 at 09:00 Diphenhydramine HCl (Benadryl Liquid Cup) 25 mg Q6H PRN GTB ITCHING; Start at 02:00 Clonidine (Catapres) 0.1 mg Q6H PRN GTB SBP >160; Start 11/16/16 at 02:06 Miscellaneous Information 1 ea NOTE XX ; Start 11/16/16 at 11:30 Glucose (Glutose) 15 gm Q15M PRN PO DECREASED GLUCOSE; Start 11/16/16 at 11:30 Glucose (Glutose) 22.5 gm Q15M PRN PO DECREASED GLUCOSE; Start 11/16/16 at 11: 30 Dextrose (D50w Syringe) 25 ml Q15M PRN IV DECREASED GLUCOSE; Start 11/16/16 at 11:30 Dextrose (D50w Syringe) 50 ml Q15M PRN IV DECREASED GLUCOSE; Start 11/16/16 at 11:30 Glucagon (Glucagen) 1 mg Q15M PRN IM DECREASED GLUCOSE; Start 11/16/16 at 11:30 Glucose (Glutose) 15 gm Q15M PRN BUCCAL DECREASED GLUCOSE; Start 11/16/16 at 11 :30 Collagenase (Santyl) 1 applic DAILY TOP Last administered on 11/18/16 09:08; Admin Dose 1 APPLIC; Start 11/17/16 at 09:00 Insulin Aspart NOVOLOG *MODERATE* ALGORITHM Q6 SC Last administered on 12:24; Admin Dose 12 UNIT; Start 11/17/16 at 00:00 Sodium Chloride (NS) 1,000 ml @ 75 mls/hr [id number] IV Last administered on 11/18 03:08; Admin Dose 75 MLS/HR; Start 11/17/16 at 14:00 Diphenhydramine HCl (Benadryl) 50 mg Q6H PRN IV ALLERGIC REACTION Last administered on 11/17/16 22:51; Admin Dose 50 MG; Start 11/17/16 at 16:30 Famotidine (Pepcid Iv) 20 mg BID IV Last administered on 11/18/16 09:07; Admin Dose 20 MG; Start 11/17/16 at 21:00 Amikacin Sulfate AMIKACIN PER PHARMACY NOTE XX ; Start 11/17/16 at 17:30 Daptomycin 360 mg/ Sodium Chloride 100 ml @ 200 mls/hr Q48H IVPB Last administered on 11/17/16 20:14; Admin Dose 200 MLS/HR; Start 11/17/16 at 20:00 Amikacin Sulfate/ Sodium Chloride (Amikacin/NS) 101.5 ml @ 102 mls/hr Q24H IVPB Last administered on 11/17/16 22:50; Admin Dose 102 MLS/HR; Start at 21:00 Insulin Glargine (Lantus) 15 unit DAILY@08 SC Last administered on 11/18/16 09 :15; Admin Dose 15 UNIT; Start 11/18/16 at 08:00 Magnesium Hydroxide (Milk Of Mag) 30 ml DAILY PRN PO CONSTIPATION Last administered on 11/18/16 12:30; Admin Dose 30 ML; Start 11/18/16 at 00:30 ARYAN COLLADO Nov 18, 2016 14:30
[2016-11-18] MEDS: AMIKACIN 375 MG in SOD CHLORIDE 0.9% 100 ML IVPB SCH ×2 (20:43→21:00)
[2016-11-19] VITALS (23 sets, daily range): BP systolic 114–129; BP diastolic 53–70; PULSE 83–117; RESP 16–20
[2016-11-19] MEDS: INSULIN ASPART [NOVOLOG] 3 ML PEN SC SCH ×5 (01:27→22:18)
[2016-11-19] MEDS: ALBUTEROL HFA 8 GM INHALER INH SCH ×4 (02:00→19:34)
[2016-11-19] MEDS: SOD CHLORIDE 0.9% 1,000 ML IV SCH ×2 (06:00→17:28)
[2016-11-19] MEDS: LANSOPRAZOLE 30 MG CAP GTB SCH (06:00)
[2016-11-19 07:52] LABS: CREATININE 1.05 mg/dl (0.44-1.00)
[2016-11-19] MEDS ORDERED: LIDOCAINE 1% (MDV) 20 ML INJ SC ONE (08:30)
[2016-11-19] MEDS: FAMOTIDINE 20 MG INJ IV SCH ×2 (09:00→21:00)
[2016-11-19] MEDS: BACLOFEN 10 MG TAB GTB SCH ×3 (09:39→22:00)
[2016-11-19] MEDS: MAGNESIUM OXIDE 400 MG TAB GTB SCH ×2 (09:39→22:00)
[2016-11-19] MEDS: METOPROLOL 25 MG TAB GTB SCH ×2 (09:39→22:00)
[2016-11-19] MEDS: COLLAGENASE 30 GM TUBE TOP SCH (09:39)
[2016-11-19] MEDS: ZINC SULFATE 220 MG CAP GTB SCH (09:39)
[2016-11-19] MEDS: INSULIN GLARGINE [LANtus] 3 ML PEN SC SCH (09:48)
--- NOTE | 2016-11-19 11:19 | DS ---
Date/Time of Note Date/Time of Note DATE: 11/19/16 TIME: 11:18 Discharge Summary Admission/Discharge Info Admit Date/Time Nov 15, 2016 at 22:42 Discharge Date/Time Final Diagnosis DISCHARGE DIAGNOSIS (ES): 1. Symptomatic anemia, status post transfusion, likely secondary to colitis. 2. Ventilator dependent respiratory failure. 3. Functional quadriplegia. 4. Chronic MS with contracture and spasm. 5. Pancreatitis, resolved ____ in 1 week. 5. Ileus. Continue IV antibiotics. 6. Chronic dysphagia, PEG tube nutrition. 7. Recent ESBL cystitis. 8. Chronic kidney disease, stable. 9. A 2.7 mm prominent perihilar nodule, not a surgical candidate. 10. History of basal cell carcinoma, stable. 11. Upper extremity fracture in a splint, stable. 12. Pneumonitis. Infectious disease doctor was consulted. Continue IV antibiotics. 13. Urinary tract infection. Continue amikacin and Daptomycin. Hospital Course MEDICATIONS: 1. Tylenol. 2. DuoNeb. 3. Amikacin as per pharmacy. 4. Baclofen 10 mg. 5. Clonidine 0.1 mg. 6. Santyl. 7. Daptomycin. 8. Benadryl. 9. Insulin sliding scale via NovoLog. 10. Levemir 40 units. 11. Prevacid 30 mg. 12. Magnesium oxide 400 mg. 13. Metoprolol 25 mg. 14. Zofran 4 mg. 15. Simethicone ____ mg. 16. Normal saline at 75 mL 17. Zinc sulfate 220 mg. 18. Lipitor 40 mg started on ___. 19. Gemfibrozil 600 mg started on ___. 20. Loratadine 10 mg 21. Cetirizine ointment. 20. Free water 100 mL via G-tube q.6h. ALLERGIES: PENICILLIN, CEPHALOSPORIN, VANCOMYCIN AND LEVAQUIN. DISPOSITION: To longterm facility. Tube feeding, Glucerna at 35 mL per hour. Hold ____ greater than 100 mL. HOSPITAL COURSE: This is an unfortunate 56-year-old female who resides at a longterm facility with a history of CVA, multiple sclerosis, vent and trach dependent, PEG tube dependent, chronic respiratory failure, was bed bound , history of multiple pressure ulcers, recent history of ESBL urinary tract infection and possible pneumonitis, upper respiratory tract infection, anemia of chronic disease who was sent from longterm facility for anemia. Upon arrival to emergency room, the patient's hemoglobin was found to be 8, creatinine 1.59, sodium 147, calcium 12.5, lipase of 1351. The patient's G- tube feeding was placed on hold, also Gemfibrozil and statin was placed on hold. She was started on IV fluid. Infectious disease doctor was consulted. Patient was typed and screened and transfused 2 units of packed red blood cells. Hemoglobin and hematocrit have been stable after with having the G-tube feeding, the patient's lipase started to improve significantly. Patient's G- tube has been started on 11/17/2016 and her lipase has continued to be stable. In regard to her anemia, the patient's hemoglobin has improved status post transfusion. This is likely secondary to ileus. The patient as stated above was started on IV antibiotics. IMPRESSION: Acute on chronic renal disease. The patient was started on IV fluid. Her renal panel has been improving. Hypertension, her blood pressure is well controlled on metoprolol. The patient is vent and trach dependent and was seen by respiratory therapy. Her vitals have been stable, oxygen saturation 97% to 100% on FIO2 30%. The patient was evaluated by infectious disease doctor, the patient due to her history of ESBL was placed on amikacin and daptomycin by infectious disease doctor. The patient's urine was found to be positive for urinary tract infection with leukocytes that are positive too. WBC greater than 200, bacteria moderate. At this time, the patient is afebrile. Vitals: Temperature 97.9, pulse 67, respiration 19, blood pressure 111/62, oxygen 100% on vent, FiO2 of 30%, waiting for infectious disease doctor evaluation and to give their recommendation regarding the time frame for the IV antibiotics treatment at longterm facility. Also getting PICC placement today. Home Meds Reported Medications Simethicone* (Anti-Gas/80*) 80 Mg Tab.chew, 160 MG GTB DAILY Y for DISTENSION/ GAS/BLOATING, TAB.CHEW 11/15/16 Metoprolol Tartrate* (Lopressor*) 25 Mg Tab, 25 MG GTB BID, #60 TAB HOLD IF SBP<110; HR<60 10/14/16 Baclofen* (Baclofen*) 20 Mg Tablet, 20 MG GTB TID, TAB 10/14/16 Magnesium Oxide* (Magnesium Oxide*) 400 Mg Tablet, 400 MG GTB BID, TAB 10/14/16 Gemfibrozil* (Gemfibrozil*) 600 Mg Tablet, 600 MG GTB BID, TAB 10/14/16 Clonidine Hcl* (Clonidine Hcl*) 0.1 Mg Tab, 0.1 MG GTB Q8, TAB IF SBP>160 10/14/16 Atorvastatin* (Atorvastatin*) 40 Mg Tablet, 40 MG GTB QHS, #30 TAB 10/14/16 Zinc Sulfate* (Zinc Sulfate*) 220 Mg Tablet, 220 MG GTB DAILY, TAB 10/14/16 Insulin Detemir (Levemir Flextouch) 100 Unit/1 Ml Insuln.pen, 40 UNIT SQ QAM 10/14/16 Acetaminophen* (Acetaminophen*) 650 Mg Tablet, 650 MG GTB Q4 Y for ELEVATED TEMPERATURE, #30 TAB OR FEVER 10/14/16 Diphenhydramine Hcl* (Diphenhydramine Hcl*) 25 Mg Capsule, 25 MG GTB Q4 Y for ITCHING, CAP 10/14/16 Pantoprazole* (Pantoprazole*) 40 Mg Tablet.dr, 40 MG GTB AC BREAKFAST, TAB 10/14/16 Discontinued Reported Medications Loratadine* (Loratadine*) 10 Mg Tablet, 10 MG GTB DAILY, #30 TAB 10/14/16 Insulin Aspart* (Novolog Insulin Pen*) 100 Unit/Ml Soln, 0 SC .SLIDING SCALE AC , EA 10/14/16 [place]-3 Fatty Acids/Fish Oil (Fish Oil 1,000 mg Capsule) 1 Each Capsule, 1 EACH GTB BID, CAP 10/14/16 Ascorbic Acid (Vitamin C) 500 Mg Tab, 500 MG GTB TID, TAB 10/14/16 Simethicone (GAS RELIEF) 80 Mg Tab.chew, 160 MG GTB DAILY, TAB.CHEW 10/14/16 Glucagon,Human Recombinant (Glucagon Emergency Kit) 1 Mg Kit, 1 MG IJ PRN Y for PRN, KIT INJECT ONCE IN 20-30 MIN,IF BS<40 10/14/16 Docusate Sodium* (Colace*) 250 Mg Capsule, 250 MG PO TID, #90 CAP TAKE 06:00-14:00-22:00 10/14/16 Pending Labs Laboratory Tests Test 11/18/16 11:49 11/18/16 13:37 11/18/16 16:50 11/18/16 17:23 Bedside Glucose 414mg/dL (70-220) 387mg/dL (70-220) 316mg/dL (70-220) Stool Occult Blood POSITIVE (NEGATIVE) Test 11/18/16 18:22 11/19/16 05:50 11/19/16 06:29 Bedside Glucose 306mg/dL (70-220) 163mg/dL (70-220) Blood Urea Nitrogen 41mg/dl (7-20) Creatine Kinase 50IU/L (23-200) Creatinine 1.05mg/dl (0.44-1.00) ASHLEY EMERY Nov 19, 2016 11:19
[2016-11-19] MEDS: MAGNESIUM HYDROXIDE 30ML CUP PO PRN (12:41)
--- NOTE | 2016-11-19 19:39 | CONS ---
Date/Time of Note Date/Time of Note DATE: 11/19/16 TIME: 19:37 Consult Date/Type/Reason Admit Date/Time Nov 15, 2016 at 22:42 Initial Consult Date 11/18/16 Type of Consultation: Pulmonary Subjective No events. On [facility] vent. Objective Vital Signs Date Time Temp Pulse Resp B/P Pulse Ox O2 Delivery O2 Flow Rate FiO2 11/19/16 19:34 102 19 98 30 11/19/16 15:14 99.4 118/64 11/17/16 04:00 Mechanical Ventilator Intake and Output 11/18/16 11/18/16 11/19/16 15:00 23:00 07:00 Intake Total 165 ml 960 ml 960 ml Output Total 800 ml 1000 ml 600 ml Balance -635 ml -40 ml 360 ml HEENT: Neck supple; no JVD; no LAD CVS: RRR, S1 and S2 CHEST: Clear ABD: Soft, NT, + BS EXT: No c/c; +edema Results/Medications Result Diagram: 11/18/16 0545 11/19/16 0550 Results 24 hrs Laboratory Tests Test 11/19/16 05:50 11/19/16 06:29 11/19/16 12:39 11/19/16 16:59 Blood Urea Nitrogen 41 H Creatine Kinase 50 Creatinine 1.05 H Bedside Glucose 163 252 H 196 Medications Current Medications Ondansetron HCl (Zofran Inj) 4 mg Q6H PRN IV NAUSEA AND/OR VOMITING; Start at 01:30 Acetaminophen (Tylenol Liquid) 650 mg Q6H PRN GTB ELEVATED TEMPERATURE Last administered on 11/17/16 12:00; Admin Dose 650 MG; Start 11/16/16 at 01:30 Baclofen (Lioresal) 20 mg TID GTB Last administered on 11/19/16 12:41; Admin Dose 20 MG; Start 11/16/16 at 09:00 Magnesium Oxide (Mag-Ox 400) 400 mg BID GTB Last administered on 11/19/16 09: 39; Admin Dose 400 MG; Start 11/16/16 at 09:00 Metoprolol Tartrate (Lopressor) 25 mg BID GTB Last administered on 11/19/16 09 :39; Admin Dose 25 MG; Start 11/16/16 at 09:00 Lansoprazole (Prevacid) 30 mg DAILY@06 GTB Last administered on 11/18/16 06:17 ; Admin Dose 30 MG; Start 11/16/16 at 06:00 Simethicone (Mylicon) 160 mg DAILY PRN GTB DISTENSION/GAS/BLOATING Last administered on 11/18/16 12:30; Admin Dose 160 MG; Start 11/16/16 at 01:30 Zinc Sulfate (Zinc Sulfate) 220 mg DAILY GTB Last administered on 11/19/16 09: 39; Admin Dose 220 MG; Start 11/16/16 at 09:00 Diphenhydramine HCl (Benadryl Liquid Cup) 25 mg Q6H PRN GTB ITCHING; Start at 02:00 Clonidine (Catapres) 0.1 mg Q6H PRN GTB SBP >160; Start 11/16/16 at 02:06 Miscellaneous Information 1 ea NOTE XX ; Start 11/16/16 at 11:30 Glucose (Glutose) 15 gm Q15M PRN PO DECREASED GLUCOSE; Start 11/16/16 at 11:30 Glucose (Glutose) 22.5 gm Q15M PRN PO DECREASED GLUCOSE; Start 11/16/16 at 11: 30 Dextrose (D50w Syringe) 25 ml Q15M PRN IV DECREASED GLUCOSE; Start 11/16/16 at 11:30 Dextrose (D50w Syringe) 50 ml Q15M PRN IV DECREASED GLUCOSE; Start 11/16/16 at 11:30 Glucagon (Glucagen) 1 mg Q15M PRN IM DECREASED GLUCOSE; Start 11/16/16 at 11:30 Glucose (Glutose) 15 gm Q15M PRN BUCCAL DECREASED GLUCOSE; Start 11/16/16 at 11 :30 Collagenase (Santyl) 1 applic DAILY TOP Last administered on 11/19/16 09:39; Admin Dose 1 APPLIC; Start 11/17/16 at 09:00 Insulin Aspart NOVOLOG *MODERATE* ALGORITHM Q6 SC Last administered on 17:28; Admin Dose 4 UNIT; Start 11/17/16 at 00:00 Sodium Chloride (NS) 1,000 ml @ 75 mls/hr [id number] IV Last administered on 11/18 16:51; Admin Dose 75 MLS/HR; Start 11/17/16 at 14:00 Diphenhydramine HCl (Benadryl) 50 mg Q6H PRN IV ALLERGIC REACTION Last administered on 11/17/16 22:51; Admin Dose 50 MG; Start 11/17/16 at 16:30 Famotidine (Pepcid Iv) 20 mg BID IV Last administered on 11/18/16 09:07; Admin Dose 20 MG; Start 11/17/16 at 21:00 Amikacin Sulfate AMIKACIN PER PHARMACY NOTE XX ; Start 11/17/16 at 17:30 Daptomycin 360 mg/ Sodium Chloride 100 ml @ 200 mls/hr Q48H IVPB Last administered on 11/17/16 20:14; Admin Dose 200 MLS/HR; Start 11/17/16 at 20:00 Amikacin Sulfate/ Sodium Chloride (Amikacin/NS) 101.5 ml @ 102 mls/hr Q24H IVPB Last administered on 11/17/16 22:50; Admin Dose 102 MLS/HR; Start at 21:00 Insulin Glargine (Lantus) 15 unit DAILY@08 SC Last administered on 11/19/16 09 :48; Admin Dose 15 UNIT; Start 11/18/16 at 08:00 Magnesium Hydroxide (Milk Of Mag) 30 ml DAILY PRN PO CONSTIPATION Last administered on 11/19/16 12:41; Admin Dose 30 ML; Start 11/18/16 at 00:30 Assessment/Plan Additional Assessment/Plan IMP: 1. Symptomatic anemia, status post transfusion, likely secondary to colitis. 2. Ventilator dependent respiratory failure. 3. Functional quadriplegia. 4. Chronic MS with contracture and spasm. 5. ESBL RECS: 1. Vent support 2. Stable for subacute from pulm standpoint. XIN NEWBERRY MD Nov 19, 2016 19:39
[2016-11-19] MEDS: DAPTOMYCIN 360 MG in SOD CHLORIDE 0.9% 100 ML IVPB SCH (20:00)
--- NOTE | 2016-11-19 20:26 | CONS ---
Date/Time of Note Date/Time of Note DATE: 11/19/16 TIME: 20:20 Assessment/Plan Assessment/Plan Chief Complaint/Hosp Course SUBJECTIVE: The patient is lying comfortably in bed. Nonverbal, noncommunicative, no fevers. MICROBIOLOGY: Sputum culture growing gram-negative rods. Urinalysis on admission was grossly positive. Cultures are pending. No blood cultures in the computer. CT of the abdomen and pelvis revealed bibasilar atelectasis, bilateral [place] renal calculi. No gross obstruction. Fecal impaction. Chronic compression fractures L1 and L3. INDWELLINGS: Trach, PEG, Joel. ANTIMICROBIALS: The patient is on: 1. Amikacin. 2. Daptomycin. ALLERGIES: 1. PENICILLIN. 2. CEPHALOSPORIN. 3. LEVAQUIN. 4. VANCOMYCIN. PHYSICAL EXAMINATION: GENERAL: Chronically ill-appearing, middle-aged woman, who is lying comfortably in bed. HEENT: Head atraumatic, normocephalic. Sclerae are anicteric. Buccal mucosa dry. NECK: Supple. Tracheostomy present. CHEST: Chest rise symmetrical. Breath sounds diminished to the bases. HEART: S1, S2. ABDOMEN: Distended, soft. Bowel tones present. EXTREMITIES: Contractures, with trace edema. SKIN: No jaundice, no cyanosis. Multiple decubitus. ASSESSMENT: 1. Systemic inflammatory response syndrome with persistent fevers. 2. Urinary tract infection per UA. 3. Multiple decubitus. 4. Possible pneumonia. 5. Chronic respiratory failure. 6. Chronic encephalopathy. 7. ALL: KEFLEX, PENICILLIN, LEVAQUIN AND VANCOMYCIN. PLAN: The patient remains stable, covered with the appropriate antimicrobials. Continue local wound care. Monitor renal f-n DW staff Problems: Consultation Date/Type/Reason Admit Date/Time Nov 15, 2016 at 22:42 Initial Consult Date 11/18/16 Type of Consultation: id Exam/Review of Systems Vital Signs Vitals Vital Signs Date Time Temp Pulse Resp B/P Pulse Ox O2 Delivery O2 Flow Rate FiO2 11/19/16 20:12 98.9 110 17 123/63 98 11/19/16 19:34 30 11/17/16 04:00 Mechanical Ventilator Intake and Output 11/18/16 11/18/16 11/19/16 14:59 22:59 06:59 Intake Total 240 ml 960 ml 960 ml Output Total 800 ml 1000 ml 600 ml Balance -560 ml -40 ml 360 ml Results Result Diagram: 11/18/16 0545 11/19/16 0550 Results 24 hrs Laboratory Tests Test 11/19/16 05:50 11/19/16 06:29 11/19/16 12:39 11/19/16 16:59 Blood Urea Nitrogen 41 H Creatine Kinase 50 Creatinine 1.05 H Bedside Glucose 163 252 H 196 Medications Medications Current Medications Ondansetron HCl (Zofran Inj) 4 mg Q6H PRN IV NAUSEA AND/OR VOMITING; Start at 01:30 Acetaminophen (Tylenol Liquid) 650 mg Q6H PRN GTB ELEVATED TEMPERATURE Last administered on 11/17/16 12:00; Admin Dose 650 MG; Start 11/16/16 at 01:30 Baclofen (Lioresal) 20 mg TID GTB Last administered on 11/19/16 12:41; Admin Dose 20 MG; Start 11/16/16 at 09:00 Magnesium Oxide (Mag-Ox 400) 400 mg BID GTB Last administered on 11/19/16 09: 39; Admin Dose 400 MG; Start 11/16/16 at 09:00 Metoprolol Tartrate (Lopressor) 25 mg BID GTB Last administered on 11/19/16 09 :39; Admin Dose 25 MG; Start 11/16/16 at 09:00 Lansoprazole (Prevacid) 30 mg DAILY@06 GTB Last administered on 11/18/16 06:17 ; Admin Dose 30 MG; Start 11/16/16 at 06:00 Simethicone (Mylicon) 160 mg DAILY PRN GTB DISTENSION/GAS/BLOATING Last administered on 11/18/16 12:30; Admin Dose 160 MG; Start 11/16/16 at 01:30 Zinc Sulfate (Zinc Sulfate) 220 mg DAILY GTB Last administered on 11/19/16 09: 39; Admin Dose 220 MG; Start 11/16/16 at 09:00 Diphenhydramine HCl (Benadryl Liquid Cup) 25 mg Q6H PRN GTB ITCHING; Start at 02:00 Clonidine (Catapres) 0.1 mg Q6H PRN GTB SBP >160; Start 11/16/16 at 02:06 Miscellaneous Information 1 ea NOTE XX ; Start 11/16/16 at 11:30 Glucose (Glutose) 15 gm Q15M PRN PO DECREASED GLUCOSE; Start 11/16/16 at 11:30 Glucose (Glutose) 22.5 gm Q15M PRN PO DECREASED GLUCOSE; Start 11/16/16 at 11: 30 Dextrose (D50w Syringe) 25 ml Q15M PRN IV DECREASED GLUCOSE; Start 11/16/16 at 11:30 Dextrose (D50w Syringe) 50 ml Q15M PRN IV DECREASED GLUCOSE; Start 11/16/16 at 11:30 Glucagon (Glucagen) 1 mg Q15M PRN IM DECREASED GLUCOSE; Start 11/16/16 at 11:30 Glucose (Glutose) 15 gm Q15M PRN BUCCAL DECREASED GLUCOSE; Start 11/16/16 at 11 :30 Collagenase (Santyl) 1 applic DAILY TOP Last administered on 11/19/16 09:39; Admin Dose 1 APPLIC; Start 11/17/16 at 09:00 Insulin Aspart NOVOLOG *MODERATE* ALGORITHM Q6 SC Last administered on 17:28; Admin Dose 4 UNIT; Start 11/17/16 at 00:00 Sodium Chloride (NS) 1,000 ml @ 75 mls/hr [id number] IV Last administered on 11/18 16:51; Admin Dose 75 MLS/HR; Start 11/17/16 at 14:00 Diphenhydramine HCl (Benadryl) 50 mg Q6H PRN IV ALLERGIC REACTION Last administered on 11/17/16 22:51; Admin Dose 50 MG; Start 11/17/16 at 16:30 Famotidine (Pepcid Iv) 20 mg BID IV Last administered on 11/18/16 09:07; Admin Dose 20 MG; Start 11/17/16 at 21:00 Amikacin Sulfate AMIKACIN PER PHARMACY NOTE XX ; Start 11/17/16 at 17:30 Daptomycin 360 mg/ Sodium Chloride 100 ml @ 200 mls/hr Q48H IVPB Last administered on 11/17/16 20:14; Admin Dose 200 MLS/HR; Start 11/17/16 at 20:00 Amikacin Sulfate/ Sodium Chloride (Amikacin/NS) 101.5 ml @ 102 mls/hr Q24H IVPB Last administered on 11/17/16 22:50; Admin Dose 102 MLS/HR; Start at 21:00 Insulin Glargine (Lantus) 15 unit DAILY@08 SC Last administered on 11/19/16 09 :48; Admin Dose 15 UNIT; Start 11/18/16 at 08:00 Magnesium Hydroxide (Milk Of Mag) 30 ml DAILY PRN PO CONSTIPATION Last administered on 11/19/16 12:41; Admin Dose 30 ML; Start 11/18/16 at 00:30 FLEX DENNISON NP Nov 19, 2016 20:26
[2016-11-19] MEDS: AMIKACIN 375 MG in SOD CHLORIDE 0.9% 100 ML IVPB SCH (21:00)
[2016-11-20] VITALS (24 sets, daily range): BP systolic 121–150; BP diastolic 64–80; PULSE 96–120; RESP 16–21
[2016-11-20] MEDS: ALBUTEROL HFA 8 GM INHALER INH SCH ×4 (01:33→19:59)
[2016-11-20] MEDS ORDERED: NACL 3% FOR INHALATION 15 ML NEBU NEB ONE (04:30)
[2016-11-20] MEDS: LANSOPRAZOLE 30 MG CAP GTB SCH (06:25)
[2016-11-20] MEDS: ACETAMINOPHEN 650MG/20.3ML CUP GTB PRN ×3 (06:25→22:13)
[2016-11-20] MEDS: INSULIN ASPART [NOVOLOG] 3 ML PEN SC SCH ×4 (06:36→22:11)
[2016-11-20] MEDS: INSULIN GLARGINE [LANtus] 3 ML PEN SC SCH (08:00)
[2016-11-20] MEDS: SOD CHLORIDE 0.9% 1,000 ML IV SCH ×2 (08:40→22:03)
[2016-11-20] MEDS: METOPROLOL 25 MG TAB GTB SCH ×2 (09:00→22:03)
[2016-11-20] MEDS: NITROFURANTOIN GTB SCH ×2 (09:52→22:01)
[2016-11-20] MEDS: FAMOTIDINE 20 MG INJ IV SCH ×2 (09:53→22:02)
[2016-11-20] MEDS: MAGNESIUM OXIDE 400 MG TAB GTB SCH ×2 (09:53→22:02)
[2016-11-20] MEDS: ZINC SULFATE 220 MG CAP GTB SCH (09:53)
[2016-11-20] MEDS: BACLOFEN 10 MG TAB GTB SCH ×3 (09:54→22:02)
[2016-11-20] MEDS: COLLAGENASE 30 GM TUBE TOP SCH (09:54)
--- NOTE | 2016-11-20 10:22 | PN ---
Date/Time of Note Date/Time of Note DATE: 11/20/16 TIME: 10:16 Assessment/Plan VTE Prophylaxis VTE Prophylaxis Intervention: SCD's Lines/Catheters IV C[facility]ter Type (from [facility] Peripheral IV Urinary Cath still in place: Yes Reason Cath still needed: urinary retention Assessment/Plan Chief Complaint/Hosp Course A/P: An unfortunate 56-year-old female who resides at a residential facility with a history of CVA, multiple sclerosis, vent and trach dependent, PEG tube dependent, chronic respiratory failure, was bed bound, history of multiple pressure ulcers, recent history of ESBL urinary tract infection and possible pneumonitis, upper respiratory tract infection, anemia of chronic disease who was sent from residential [facility] for anemia. 1. Anemia possibly symptomatic. Sp transfusion. Appears ALBARO. Ro Gib/colitis 2. Sepsis + VDRF: + fevers again, PNA, otherwise stable - cont vent + abx Dapto + Macrobid + Amikacin, f/u ID rec's 3. Functional quadriplegia 4. Chr MS w contractures and spasms; full code?? 5. Pancreatitis? - resolved - monitor, Hold statin 6. Ileus? - monitor 7. Chr dysphagia/PEG tube/malnutrition; restart feeds 8. Recent ESBL cystitis - f/u cx, abx 9. 2.7 mm pul perihilar nodule? not a surgical candidate 10. CKD 11. Ho basal cell ca 12. Upper ext fracture in splint Problems: Subjective 24 Hr Interval Summary Free Text/Dictation Pt not d/c'ed yesterday b/c "consent could not be obtained for PICC". Now + fevers. Exam/Review of Systems Vital Signs Vitals Vital Signs Date Time Temp Pulse Resp B/P Pulse Ox O2 Delivery O2 Flow Rate FiO2 11/20/16 08:26 117 11/20/16 07:29 102.1 18 147/71 98 11/20/16 04:33 30 11/17/16 04:00 Mechanical Ventilator Intake and Output 11/19/16 11/19/16 11/20/16 15:00 23:00 07:00 Intake Total 960 ml 960 ml Output Total 800 ml 700 ml Balance 160 ml 260 ml Exam Gen: No pallor or icterus. Mild bitemporal wasting. Trach C/D CV: Reg, no m/r/g Res: Diminished breath sounds bilaterally Abd: Bs diminished, mildly hyperactive. Distended. Tender? No r/r/g. No flank ecchymosis M/S: No edema. Chr hypotonia/Contractures. Multiple chr wounds. Bilat upper extremity in sling. Results Result Diagram: 11/18/16 0545 11/19/16 0550 Results 24 hrs Laboratory Tests Test 11/19/16 12:39 11/19/16 16:59 Bedside Glucose 252 H 196 Medications Medications Current Medications Ondansetron HCl (Zofran Inj) 4 mg Q6H PRN IV NAUSEA AND/OR VOMITING; Start at 01:30 Acetaminophen (Tylenol Liquid) 650 mg Q6H PRN GTB ELEVATED TEMPERATURE Last administered on 11/20/16 06:25; Admin Dose 650 MG; Start 11/16/16 at 01:30 Baclofen (Lioresal) 20 mg TID GTB Last administered on 11/20/16 09:54; Admin Dose 20 MG; Start 11/16/16 at 09:00 Magnesium Oxide (Mag-Ox 400) 400 mg BID GTB Last administered on 11/20/16 09: 53; Admin Dose 400 MG; Start 11/16/16 at 09:00 Metoprolol Tartrate (Lopressor) 25 mg BID GTB Last administered on 11/19/16 22 :00; Admin Dose 25 MG; Start 11/16/16 at 09:00 Lansoprazole (Prevacid) 30 mg DAILY@06 GTB Last administered on 11/20/16 06:25 ; Admin Dose 30 MG; Start 11/16/16 at 06:00 Simethicone (Mylicon) 160 mg DAILY PRN GTB DISTENSION/GAS/BLOATING Last administered on 11/18/16 12:30; Admin Dose 160 MG; Start 11/16/16 at 01:30 Zinc Sulfate (Zinc Sulfate) 220 mg DAILY GTB Last administered on 11/20/16 09: 53; Admin Dose 220 MG; Start 11/16/16 at 09:00 Diphenhydramine HCl (Benadryl Liquid Cup) 25 mg Q6H PRN GTB ITCHING; Start at 02:00 Clonidine (Catapres) 0.1 mg Q6H PRN GTB SBP >160; Start 11/16/16 at 02:06 Miscellaneous Information 1 ea NOTE XX ; Start 11/16/16 at 11:30 Glucose (Glutose) 15 gm Q15M PRN PO DECREASED GLUCOSE; Start 11/16/16 at 11:30 Glucose (Glutose) 22.5 gm Q15M PRN PO DECREASED GLUCOSE; Start 11/16/16 at 11: 30 Dextrose (D50w Syringe) 25 ml Q15M PRN IV DECREASED GLUCOSE; Start 11/16/16 at 11:30 Dextrose (D50w Syringe) 50 ml Q15M PRN IV DECREASED GLUCOSE; Start 11/16/16 at 11:30 Glucagon (Glucagen) 1 mg Q15M PRN IM DECREASED GLUCOSE; Start 11/16/16 at 11:30 Glucose (Glutose) 15 gm Q15M PRN BUCCAL DECREASED GLUCOSE; Start 11/16/16 at 11 :30 Collagenase (Santyl) 1 applic DAILY TOP Last administered on 11/20/16 09:54; Admin Dose 1 APPLIC; Start 11/17/16 at 09:00 Insulin Aspart NOVOLOG *MODERATE* ALGORITHM Q6 SC Last administered on 06:36; Admin Dose 6 UNIT; Start 11/17/16 at 00:00 Sodium Chloride (NS) 1,000 ml @ 75 mls/hr [id number] IV Last administered on 11/18 16:51; Admin Dose 75 MLS/HR; Start 11/17/16 at 14:00 Diphenhydramine HCl (Benadryl) 50 mg Q6H PRN IV ALLERGIC REACTION Last administered on 11/17/16 22:51; Admin Dose 50 MG; Start 11/17/16 at 16:30 Famotidine (Pepcid Iv) 20 mg BID IV Last administered on 11/20/16 09:53; Admin Dose 20 MG; Start 11/17/16 at 21:00 Amikacin Sulfate AMIKACIN PER PHARMACY NOTE XX ; Start 11/17/16 at 17:30 Daptomycin 360 mg/ Sodium Chloride 100 ml @ 200 mls/hr Q48H IVPB Last administered on 11/17/16 20:14; Admin Dose 200 MLS/HR; Start 11/17/16 at 20:00 Amikacin Sulfate/ Sodium Chloride (Amikacin/NS) 101.5 ml @ 102 mls/hr Q24H IVPB Last administered on 11/17/16 22:50; Admin Dose 102 MLS/HR; Start at 21:00 Insulin Glargine (Lantus) 15 unit DAILY@08 SC Last administered on 11/19/16 09 :48; Admin Dose 15 UNIT; Start 11/18/16 at 08:00 Magnesium Hydroxide (Milk Of Mag) 30 ml DAILY PRN PO CONSTIPATION Last administered on 11/19/16 12:41; Admin Dose 30 ML; Start 11/18/16 at 00:30 Nitrofurantoin (Furadantin) 100 mg Q12 GTB Last administered on 11/20/16 09:52 ; Admin Dose 100 MG; Start 11/20/16 at 09:00 ASHLEY EMERY Nov 20, 2016 10:22
--- NOTE | 2016-11-20 17:48 | RADRPT ---
PROCEDURE: XR Chest. CLINICAL INDICATION: PICC line placement TECHNIQUE: Chest AP portable. COMPARISON: 11/15/2016 FINDINGS: Tracheostomy tube. There is a new right arm PICC line with the tip at the SVC / RA junction. The mediastinal structures are unremarkable. The heart is normal in size and configuration. The pu lmonary vascularity is normal. There are normal lung volumes. There is a LLL patchy consolidation/ subsegmental atelectasis. There is a possible small left pleural effusion. The axial skeleton is u nremarkable. IMPRESSION: New right arm PICC line with tip at SVC / RA junction. LLL patchy consolidation/subsegmental atelectasis Possible small left pleural effusion RPTAT: HGDB .Osmany Aquino MD, Date Time Electronically viewed and signed by .Osmany Aquino MD, on 11/20/2016 17:47 .B/
[2016-11-20] MEDS ORDERED: HEPARIN (10 UNITS/ML) 5ML SYG IV ONE (18:00)
--- NOTE | 2016-11-20 18:37 | CONS ---
Date/Time of Note Date/Time of Note DATE: 11/20/16 TIME: 18:35 Consult Date/Type/Reason Admit Date/Time Nov 15, 2016 at 22:42 Initial Consult Date 11/18/16 Type of Consultation: Pulm Subjective Low grade fevers noted. No other events. Objective Vital Signs Date Time Temp Pulse Resp B/P Pulse Ox O2 Delivery O2 Flow Rate FiO2 11/20/16 17:25 115 11/20/16 16:50 20 99 30 11/20/16 15:18 100.1 135/79 11/17/16 04:00 Mechanical Ventilator Intake and Output 11/19/16 11/19/16 11/20/16 15:00 23:00 07:00 Intake Total 960 ml 960 ml Output Total 800 ml 700 ml Balance 160 ml 260 ml HEENT: Neck supple; no JVD; no LAD CVS: RRR, S1 and S2 CHEST: Clear ABD: Soft, NT, + BS EXT: No c/c; +edema Results/Medications Result Diagram: 11/18/16 0545 11/19/16 0550 Results 24 hrs Laboratory Tests Test 11/20/16 11:22 11/20/16 18:03 Bedside Glucose 241 H 175 Medications Current Medications Ondansetron HCl (Zofran Inj) 4 mg Q6H PRN IV NAUSEA AND/OR VOMITING; Start at 01:30 Acetaminophen (Tylenol Liquid) 650 mg Q6H PRN GTB ELEVATED TEMPERATURE Last administered on 11/20/16 11:15; Admin Dose 650 MG; Start 11/16/16 at 01:30 Baclofen (Lioresal) 20 mg TID GTB Last administered on 11/20/16 15:24; Admin Dose 20 MG; Start 11/16/16 at 09:00 Magnesium Oxide (Mag-Ox 400) 400 mg BID GTB Last administered on 11/20/16 09: 53; Admin Dose 400 MG; Start 11/16/16 at 09:00 Metoprolol Tartrate (Lopressor) 25 mg BID GTB Last administered on 11/20/16 09 :00; Admin Dose 25 MG; Start 11/16/16 at 09:00 Lansoprazole (Prevacid) 30 mg DAILY@06 GTB Last administered on 11/20/16 06:25 ; Admin Dose 30 MG; Start 11/16/16 at 06:00 Simethicone (Mylicon) 160 mg DAILY PRN GTB DISTENSION/GAS/BLOATING Last administered on 11/18/16 12:30; Admin Dose 160 MG; Start 11/16/16 at 01:30 Zinc Sulfate (Zinc Sulfate) 220 mg DAILY GTB Last administered on 11/20/16 09: 53; Admin Dose 220 MG; Start 11/16/16 at 09:00 Diphenhydramine HCl (Benadryl Liquid Cup) 25 mg Q6H PRN GTB ITCHING; Start at 02:00 Clonidine (Catapres) 0.1 mg Q6H PRN GTB SBP >160; Start 11/16/16 at 02:06 Miscellaneous Information 1 ea NOTE XX ; Start 11/16/16 at 11:30 Glucose (Glutose) 15 gm Q15M PRN PO DECREASED GLUCOSE; Start 11/16/16 at 11:30 Glucose (Glutose) 22.5 gm Q15M PRN PO DECREASED GLUCOSE; Start 11/16/16 at 11: 30 Dextrose (D50w Syringe) 25 ml Q15M PRN IV DECREASED GLUCOSE; Start 11/16/16 at 11:30 Dextrose (D50w Syringe) 50 ml Q15M PRN IV DECREASED GLUCOSE; Start 11/16/16 at 11:30 Glucagon (Glucagen) 1 mg Q15M PRN IM DECREASED GLUCOSE; Start 11/16/16 at 11:30 Glucose (Glutose) 15 gm Q15M PRN BUCCAL DECREASED GLUCOSE; Start 11/16/16 at 11 :30 Collagenase (Santyl) 1 applic DAILY TOP Last administered on 11/20/16 09:54; Admin Dose 1 APPLIC; Start 11/17/16 at 09:00 Insulin Aspart NOVOLOG *MODERATE* ALGORITHM Q6 SC Last administered on 06:36; Admin Dose 6 UNIT; Start 11/17/16 at 00:00 Sodium Chloride (NS) 1,000 ml @ 75 mls/hr [id number] IV Last administered on 11/18 16:51; Admin Dose 75 MLS/HR; Start 11/17/16 at 14:00 Diphenhydramine HCl (Benadryl) 50 mg Q6H PRN IV ALLERGIC REACTION Last administered on 11/17/16 22:51; Admin Dose 50 MG; Start 11/17/16 at 16:30 Famotidine (Pepcid Iv) 20 mg BID IV Last administered on 11/20/16 09:53; Admin Dose 20 MG; Start 11/17/16 at 21:00 Amikacin Sulfate AMIKACIN PER PHARMACY NOTE XX ; Start 11/17/16 at 17:30 Daptomycin 360 mg/ Sodium Chloride 100 ml @ 200 mls/hr Q48H IVPB Last administered on 11/17/16 20:14; Admin Dose 200 MLS/HR; Start 11/17/16 at 20:00 Amikacin Sulfate/ Sodium Chloride (Amikacin/NS) 101.5 ml @ 102 mls/hr Q24H IVPB Last administered on 11/17/16 22:50; Admin Dose 102 MLS/HR; Start at 21:00 Insulin Glargine (Lantus) 15 unit DAILY@08 SC Last administered on 11/20/16 08 :00; Admin Dose 15 UNIT; Start 11/18/16 at 08:00 Magnesium Hydroxide (Milk Of Mag) 30 ml DAILY PRN PO CONSTIPATION Last administered on 11/19/16 12:41; Admin Dose 30 ML; Start 11/18/16 at 00:30 Nitrofurantoin (Furadantin) 100 mg Q12 GTB Last administered on 11/20/16 09:52 ; Admin Dose 100 MG; Start 11/20/16 at 09:00 Ibuprofen (Motrin) 600 mg Q6H PRN PO PAIN OR TEMP ABOVE 38C; Start 11/20/16 at 13:00 Assessment/Plan Additional Assessment/Plan IMP: 1. Symptomatic anemia, status post transfusion, likely secondary to colitis. 2. Ventilator dependent respiratory failure. 3. Functional quadriplegia. 4. Chronic MS with contracture and spasm. 5. ESBL UTI RECS: 1. Vent support 2. Abx per ID 3. F/U cultures XIN NEWBERRY MD Nov 20, 2016 18:37
--- NOTE | 2016-11-20 19:15 | PN ---
DATE: 11/20/2016 SUBJECTIVE: No acute changes. The patient is spiking fevers. MICROBIOLOGY: Urine culture growing gram-negative rods. Endotracheal aspirate is growing pseudomon as and Morganella morganii. DIAGNOSTICS: She had a PICC line placed this morning where the chest x-ray revealed left lower lobe patchy consolidation. INDWELLINGS: Trach, PEG, Joel, and PICC line as previously noted. ALLERGIES: CEPHALOSPRORIN, PENICILLIN, LEVAQUIN, VANCOMYCIN. ANTIMICROBIALS: 1. Macrobid. 2. Amikacin. 3. Daptomycin. PHYSICAL EXAMINATION: GENERAL: This is a chronically ill-appearing, middle-aged woman who is nonverbal, noncommunicative. HEENT: Head atraumatic, normocephalic. Sclerae anicteric. Buccal mucosa dry. NECK: Supple. Tracheostomy present. CHEST: Rise symmetrical. Breath sounds diminished to bases. HEART: S1, S2. ABDOMEN: Soft but distended. Bowel tones present. EXTREMITIES: Without cyanosis. SKIN: Multiple decubitus. ASSESSMENT: 1. Sepsis with ongoing fevers. 2. Healthcare-associated pneumonia. 3. Urinary tract infection. 4. Multiple decubitus. 5. Kidney stones, no evidence of obstruction per MRI of the abdomen. 6. Functional quadriplegia secondary to multiple sclerosis. PLAN: We are going to start patient on Zyvox and imipenem. Continue local wound care. Await for u rine culture. Continue cooling measures. Consider urologic evaluation given persistent UTI and pre sence of kidney stones. Dictated By: FLEX DENNISON SIMONIZER for CRISTINA WHITFIELD/HERI Conf#: [id number] DID#: [id number]
[2016-11-20] MEDS: ZYVOX 600 MG TAB PO SCH (22:02)
[2016-11-20] MEDS: IMIPENEM-CILAST 500MG IV (PMX) 100 ML IVPB SCH (22:03)
[2016-11-21] VITALS (24 sets, daily range): BP systolic 124–145; BP diastolic 65–77; PULSE 102–120; RESP 16–24
[2016-11-21] MEDS: ALBUTEROL HFA 8 GM INHALER INH SCH ×4 (01:23→20:48)
[2016-11-21] MEDS: LANSOPRAZOLE 30 MG CAP GTB SCH (05:12)
[2016-11-21] MEDS: IMIPENEM-CILAST 500MG IV (PMX) 100 ML IVPB SCH (05:13)
[2016-11-21] MEDS: INSULIN ASPART [NOVOLOG] 3 ML PEN SC SCH ×3 (05:16→17:49)
[2016-11-21] MEDS: ZINC SULFATE 220 MG CAP GTB SCH (08:09)
[2016-11-21] MEDS: FAMOTIDINE 20 MG INJ IV SCH ×2 (08:09→22:27)
[2016-11-21] MEDS: ACETAMINOPHEN 650MG/20.3ML CUP GTB PRN ×3 (08:09→23:26)
[2016-11-21] MEDS: NITROFURANTOIN GTB SCH (08:10)
[2016-11-21] MEDS: METOPROLOL 25 MG TAB GTB SCH ×2 (08:10→22:26)
[2016-11-21] MEDS: MAGNESIUM OXIDE 400 MG TAB GTB SCH ×2 (08:10→22:36)
[2016-11-21] MEDS: BACLOFEN 10 MG TAB GTB SCH ×3 (08:10→22:26)
[2016-11-21] MEDS: ZYVOX 600 MG TAB PO SCH ×2 (08:10→22:27)
[2016-11-21] MEDS: INSULIN GLARGINE [LANtus] 3 ML PEN SC SCH (08:13)
[2016-11-21] MEDS: COLLAGENASE 30 GM TUBE TOP SCH (08:13)
--- NOTE | 2016-11-21 11:38 | CONS ---
Date/Time of Note Date/Time of Note DATE: 11/21/16 TIME: 11:35 Assessment/Plan Assessment/Plan Chief Complaint/Hosp Course Patient is a 56-year-old lady who was admitted for treatment of sepsis as well as anemia. Pulmonary consultation obtained for management of respiratory failure. Patient on mechanical ventilation chronically due to underlying severe multiple sclerosis. History present illness; 6-year-old lady admitted for treatment of severe sepsis as well as anemia. She was obtained from medical records as the patient is unable to give any history whatsoever by herself. The time I saw the patient the patient is on mechanical ventilation via tracheostomy patient is unresponsive. Patient on medical records, the patient has remained hemodynamically stable. Past medical history; 1. History of severe multiple sclerosis ventilator dependent. 2. History of multiple episodes of UTI. 3. Status post G-tube and tracheostomy. 4. Decubitus ulcers. Next Medications; were reviewed. Allergies; are to cephalosporins, penicillins, Levaquin and vancomycin. Social history; noncontributory. Family history; not available. Occupational history; patient is disabled. Review of systems; currently unable to be obtained. General examination; middle aged woman, on ventilator via tracheostomy unresponsive. Currently in no distress. Problems: Additional Assessment/Plan Ventilator settings are assist control of 16, tidal volume 450, PEEP of 5, 30% FiO2. Assessment and recommendations; next 1. Patient admitted for sepsis from UTI due to pseudomonas aeruginosa and ESBL Klebsiella. Currently on Coly-Mycin. 2. Advanced multiple sclerosis. 3. Chronic respiratory failure. 4. Hypertension. 5. Diabetes. 6. Small sacral decubitus ulcer. Continue current supportive care. Consultation Date/Type/Reason Admit Date/Time Nov 15, 2016 at 22:42 Initial Consult Date 11/18/16 Type of Consultation: Pulm 24 HR Interval Summary Free Text/Dictation Patient condition remains unchanged. Has remained hemodynamically stable. Main essentially unresponsive. But awake. General examination; elderly gentleman code, on ventilator via tracheostomy currently in no distress. Awake but remains unresponsive. Exam/Review of Systems Vital Signs Vitals Vital Signs Date Time Temp Pulse Resp B/P Pulse Ox O2 Delivery O2 Flow Rate FiO2 11/21/16 09:47 111 11/21/16 09:20 19 97 30 11/21/16 07:41 102.0 145/75 Intake and Output 11/20/16 11/20/16 11/21/16 15:00 23:00 07:00 Intake Total 300 ml 2360 ml Output Total 800 ml 800 ml Balance -500 ml 1560 ml Exam H EENT examination; supple neck, no JVD. No lymphadenopathy. Pupils are midsize and reactive to light. Tracheostomy in place with clean insertion site. Chest examination; clear to auscultation bilaterally. No added sounds. S1-S2 audible, no murmurs. Regular rhythm. Abdomen examination; soft, no organomegaly. G-tube in place. Bowel sounds audible. Extremity examination; no peripheral edema. DIRECTOR RECREATION examination; patient is awake but does not follow any commands. Results Result Diagram: 11/18/16 0545 11/19/16 0550 Results 24 hrs Laboratory Tests Test 11/20/16 18:03 11/20/16 21:56 11/21/16 05:07 11/21/16 07:52 Bedside Glucose 175 182 235 H 163 Medications Medications Current Medications Ondansetron HCl (Zofran Inj) 4 mg Q6H PRN IV NAUSEA AND/OR VOMITING; Start at 01:30 Acetaminophen (Tylenol Liquid) 650 mg Q6H PRN GTB ELEVATED TEMPERATURE Last administered on 11/21/16 08:09; Admin Dose 650 MG; Start 11/16/16 at 01:30 Baclofen (Lioresal) 20 mg TID GTB Last administered on 11/21/16 08:10; Admin Dose 20 MG; Start 11/16/16 at 09:00 Magnesium Oxide (Mag-Ox 400) 400 mg BID GTB Last administered on 11/21/16 08: 10; Admin Dose 400 MG; Start 11/16/16 at 09:00 Metoprolol Tartrate (Lopressor) 25 mg BID GTB Last administered on 11/21/16 08 :10; Admin Dose 25 MG; Start 11/16/16 at 09:00 Lansoprazole (Prevacid) 30 mg DAILY@06 GTB Last administered on 11/21/16 05:12 ; Admin Dose 30 MG; Start 11/16/16 at 06:00 Simethicone (Mylicon) 160 mg DAILY PRN GTB DISTENSION/GAS/BLOATING Last administered on 11/18/16 12:30; Admin Dose 160 MG; Start 11/16/16 at 01:30 Zinc Sulfate (Zinc Sulfate) 220 mg DAILY GTB Last administered on 11/21/16 08: 09; Admin Dose 220 MG; Start 11/16/16 at 09:00 Diphenhydramine HCl (Benadryl Liquid Cup) 25 mg Q6H PRN GTB ITCHING; Start at 02:00 Clonidine (Catapres) 0.1 mg Q6H PRN GTB SBP >160; Start 11/16/16 at 02:06 Miscellaneous Information 1 ea NOTE XX ; Start 11/16/16 at 11:30 Glucose (Glutose) 15 gm Q15M PRN PO DECREASED GLUCOSE; Start 11/16/16 at 11:30 Glucose (Glutose) 22.5 gm Q15M PRN PO DECREASED GLUCOSE; Start 11/16/16 at 11: 30 Dextrose (D50w Syringe) 25 ml Q15M PRN IV DECREASED GLUCOSE; Start 11/16/16 at 11:30 Dextrose (D50w Syringe) 50 ml Q15M PRN IV DECREASED GLUCOSE; Start 11/16/16 at 11:30 Glucagon (Glucagen) 1 mg Q15M PRN IM DECREASED GLUCOSE; Start 11/16/16 at 11:30 Glucose (Glutose) 15 gm Q15M PRN BUCCAL DECREASED GLUCOSE; Start 11/16/16 at 11 :30 Collagenase (Santyl) 1 applic DAILY TOP Last administered on 11/21/16 08:13; Admin Dose 1 APPLIC; Start 11/17/16 at 09:00 Insulin Aspart NOVOLOG *MODERATE* ALGORITHM Q6 SC Last administered on 05:16; Admin Dose 6 UNIT; Start 11/17/16 at 00:00 Sodium Chloride (NS) 1,000 ml @ 75 mls/hr [id number] IV Last administered on 11/20 22:03; Admin Dose 75 MLS/HR; Start 11/17/16 at 14:00 Diphenhydramine HCl (Benadryl) 50 mg Q6H PRN IV ALLERGIC REACTION Last administered on 11/17/16 22:51; Admin Dose 50 MG; Start 11/17/16 at 16:30 Famotidine (Pepcid Iv) 20 mg BID IV Last administered on 11/21/16 08:09; Admin Dose 20 MG; Start 11/17/16 at 21:00 Insulin Glargine (Lantus) 15 unit DAILY@08 SC Last administered on 11/21/16 08 :13; Admin Dose 15 UNIT; Start 11/18/16 at 08:00 Magnesium Hydroxide (Milk Of Mag) 30 ml DAILY PRN PO CONSTIPATION Last administered on 11/19/16 12:41; Admin Dose 30 ML; Start 11/18/16 at 00:30 Nitrofurantoin (Furadantin) 100 mg Q12 GTB Last administered on 11/21/16 08:10 ; Admin Dose 100 MG; Start 11/20/16 at 09:00 Ibuprofen (Motrin) 600 mg Q6H PRN PO PAIN OR TEMP ABOVE 38C; Start 11/20/16 at 13:00 Linezolid 600 mg 600 mg BID PO Last administered on 11/21/16 08:10; Admin Dose 600 MG; Start 11/20/16 at 21:00 Colistimethate Sodium/Sodium Chloride (Coly-Mycin/NS) 100 ml @ 200 mls/hr Q12 IVPB ; Start 11/21/16 at 11:30; Status ARYAN MARTINEZ Nov 21, 2016 11:38
--- NOTE | 2016-11-21 11:46 | RADRPT ---
PROCEDURE: US guidance for PICC line CLINICAL INDICATION: PICC line placement TECHNIQUE: Multiple real-time images were acquired of the patient's arm utilizing a high resolutio n transducer. This was performed by the PICC line nurse for venous access. COMPARISON: None FINDINGS: Ultrasound guidance for PICC line placement. IMPRESSION: Ultrasound guidance for PICC line placement. RPTAT: AA .Hai Lynn MD, MD Date Time Electronically viewed and signed by .Hai Lynn MD, on 11/21/2016 11:46 .S/
[2016-11-21] MEDS: SOD CHLORIDE 0.9% 1,000 ML IV SCH (12:19)
[2016-11-21] MEDS: COLISTIMETHATE 75 MG in SOD CHLORIDE 0.9% 100 ML IVPB SCH ×2 (13:33→22:37)
--- NOTE | 2016-11-21 13:36 | RADRPT ---
PROCEDURE: US Renal CLINICAL INDICATION: Possible obstruction TECHNIQUE: Multiple sonographic images of the kidneys and bladder were obtained. Evaluation of th e kidneys and bladder was performed as well with lunsford scale and color and Doppler evaluation using a curved array transducer. The images were reviewed on a high-resolution PACS workstation. COMPARISON: 10/15/2016 FINDINGS: The right kidney measures 10.0 cm in length. The left kidney measures 11.1 cm in length. There are l arge calculi within the central right arm and kidney, likely representing a staghorn calculus within the renal pelvis measuring approximately 4.1 x 1.5 cm. There is moderate superior pole caliectasis . There is a 1.9 x 1.3 cm cyst within the cortex of the mid pole of the right kidney. There are la rge calculi within the central left kidney which appear as a staghorn calculus within the left renal pelvis with mild associated pelvocaliectasis. The bladder is nondistended with a Joel catheter in place. No dilated distal ureter is identified. IMPRESSION: 1. When compared to the previous sonogram done 10/15/2016, large calculi are again seen within the central aspect of each kidney probably representing staghorn calculi within the renal pelves. 2. There is moderate caliectasis within the superior pole right kidney and mild diffuse left caliec tasis which has developed since the previous study. 3. A 1.9 cm in maximal diameter cyst is again seen within the mid pole of the right kidney. 4. A Joel catheter is again seen in a nondistended bladder. Physician Gianna Date Time Electronically viewed and signed by Physician Gianna on 11/21/2016 13:35 /
--- NOTE | 2016-11-21 14:49 | CONS ---
Date/Time of Note Date/Time of Note DATE: 11/21/16 TIME: 14:47 Assessment/Plan Assessment/Plan Chief Complaint/Hosp Course SUBJECTIVE: No acute changes. Spiking fevers. INDWELLINGS: Trach, PEG, Joel, and PICC 11/20/16. ALLERGIES: CEPHALOSPRORIN, PENICILLIN, LEVAQUIN, VANCOMYCIN. ANTIMICROBIALS: Zyvox, Colistin PHYSICAL EXAMINATION: GENERAL: This is a chronically ill-appearing, middle-aged woman who is nonverbal, noncommunicative. HEENT: Head atraumatic, normocephalic. Sclerae anicteric. Buccal mucosa dry. NECK: Supple. Tracheostomy present. CHEST: Rise symmetrical. Breath sounds diminished to bases. HEART: S1, S2. ABDOMEN: Soft but distended. Bowel tones present. EXTREMITIES: Without cyanosis. SKIN: Multiple decubitus. ASSESSMENT: 1. Sepsis with ongoing fevers. 2. Healthcare-associated pneumonia. 3. Urinary tract infection===> cx + MDRO. 4. Multiple decubitus. 5. Kidney stones, no evidence of obstruction per MRI of the abdomen. 6. Functional quadriplegia secondary to multiple sclerosis. PLAN: Clinically unchanged, started on Colistin for MDR UTI, will check renal US , continue Zyvox, consider eval DW staff Problems: Consultation Date/Type/Reason Admit Date/Time Nov 15, 2016 at 22:42 Initial Consult Date 11/18/16 Type of Consultation: ID Exam/Review of Systems Vital Signs Vitals Vital Signs Date Time Temp Pulse Resp B/P Pulse Ox O2 Delivery O2 Flow Rate FiO2 11/21/16 14:11 105 11/21/16 13:47 30 11/21/16 13:10 24 97 11/21/16 11:49 102.0 124/67 Intake and Output 11/20/16 11/20/16 11/21/16 15:00 23:00 07:00 Intake Total 300 ml 2360 ml Output Total 800 ml 800 ml Balance -500 ml 1560 ml Results Result Diagram: 11/18/16 0545 11/19/16 0550 Results 24 hrs Laboratory Tests Test 11/20/16 18:03 11/20/16 21:56 11/21/16 05:07 11/21/16 07:52 Bedside Glucose 175 182 235 H 163 Test 11/21/16 12:19 Bedside Glucose 250 H Medications Medications Current Medications Ondansetron HCl (Zofran Inj) 4 mg Q6H PRN IV NAUSEA AND/OR VOMITING; Start at 01:30 Acetaminophen (Tylenol Liquid) 650 mg Q6H PRN GTB ELEVATED TEMPERATURE Last administered on 11/21/16 08:09; Admin Dose 650 MG; Start 11/16/16 at 01:30 Baclofen (Lioresal) 20 mg TID GTB Last administered on 11/21/16 13:33; Admin Dose 20 MG; Start 11/16/16 at 09:00 Magnesium Oxide (Mag-Ox 400) 400 mg BID GTB Last administered on 11/21/16 08: 10; Admin Dose 400 MG; Start 11/16/16 at 09:00 Metoprolol Tartrate (Lopressor) 25 mg BID GTB Last administered on 11/21/16 08 :10; Admin Dose 25 MG; Start 11/16/16 at 09:00 Lansoprazole (Prevacid) 30 mg DAILY@06 GTB Last administered on 11/21/16 05:12 ; Admin Dose 30 MG; Start 11/16/16 at 06:00 Simethicone (Mylicon) 160 mg DAILY PRN GTB DISTENSION/GAS/BLOATING Last administered on 11/18/16 12:30; Admin Dose 160 MG; Start 11/16/16 at 01:30 Zinc Sulfate (Zinc Sulfate) 220 mg DAILY GTB Last administered on 11/21/16 08: 09; Admin Dose 220 MG; Start 11/16/16 at 09:00 Diphenhydramine HCl (Benadryl Liquid Cup) 25 mg Q6H PRN GTB ITCHING; Start at 02:00 Clonidine (Catapres) 0.1 mg Q6H PRN GTB SBP >160; Start 11/16/16 at 02:06 Miscellaneous Information 1 ea NOTE XX ; Start 11/16/16 at 11:30 Glucose (Glutose) 15 gm Q15M PRN PO DECREASED GLUCOSE; Start 11/16/16 at 11:30 Glucose (Glutose) 22.5 gm Q15M PRN PO DECREASED GLUCOSE; Start 11/16/16 at 11: 30 Dextrose (D50w Syringe) 25 ml Q15M PRN IV DECREASED GLUCOSE; Start 11/16/16 at 11:30 Dextrose (D50w Syringe) 50 ml Q15M PRN IV DECREASED GLUCOSE; Start 11/16/16 at 11:30 Glucagon (Glucagen) 1 mg Q15M PRN IM DECREASED GLUCOSE; Start 11/16/16 at 11:30 Glucose (Glutose) 15 gm Q15M PRN BUCCAL DECREASED GLUCOSE; Start 11/16/16 at 11 :30 Collagenase (Santyl) 1 applic DAILY TOP Last administered on 11/21/16 08:13; Admin Dose 1 APPLIC; Start 11/17/16 at 09:00 Insulin Aspart NOVOLOG *MODERATE* ALGORITHM Q6 SC Last administered on 12:21; Admin Dose 6 UNIT; Start 11/17/16 at 00:00 Sodium Chloride (NS) 1,000 ml @ 75 mls/hr [id number] IV Last administered on 11/21 12:19; Admin Dose 75 MLS/HR; Start 11/17/16 at 14:00 Diphenhydramine HCl (Benadryl) 50 mg Q6H PRN IV ALLERGIC REACTION Last administered on 11/17/16 22:51; Admin Dose 50 MG; Start 11/17/16 at 16:30 Famotidine (Pepcid Iv) 20 mg BID IV Last administered on 11/21/16 08:09; Admin Dose 20 MG; Start 11/17/16 at 21:00 Insulin Glargine (Lantus) 15 unit DAILY@08 SC Last administered on 11/21/16 08 :13; Admin Dose 15 UNIT; Start 11/18/16 at 08:00 Magnesium Hydroxide (Milk Of Mag) 30 ml DAILY PRN PO CONSTIPATION Last administered on 11/19/16 12:41; Admin Dose 30 ML; Start 11/18/16 at 00:30 Nitrofurantoin (Furadantin) 100 mg Q12 GTB Last administered on 11/21/16 08:10 ; Admin Dose 100 MG; Start 11/20/16 at 09:00 Ibuprofen (Motrin) 600 mg Q6H PRN PO PAIN OR TEMP ABOVE 38C; Start 11/20/16 at 13:00 Linezolid 600 mg 600 mg BID PO Last administered on 11/21/16 08:10; Admin Dose 600 MG; Start 11/20/16 at 21:00 Colistimethate Sodium/Sodium Chloride (Coly-Mycin/NS) 100 ml @ 200 mls/hr Q12 IVPB Last administered on 11/21/16t 13:33; Admin Dose 200 MLS/HR; Start at 12:30 FLEX DENNISON NP Nov 21, 2016 14:48
--- NOTE | 2016-11-21 19:26 | PN ---
Date/Time of Note Date/Time of Note DATE: 11/21/16 TIME: 19:16 Assessment/Plan VTE Prophylaxis VTE Prophylaxis Intervention: SCD's Lines/Catheters IV Catheter Type (from Nrs): PICC Line Central line still needed: Yes Urinary Cath still in place: Yes Reason Cath still needed: other (indicate) Assessment/Plan Assessment/Plan An unfortunate 56-year-old female who resides at a nursing home facility with a history of CVA, multiple sclerosis, vent and trach dependent, PEG tube dependent, chronic respiratory failure, was bed bound, history of multiple pressure ulcers, recent history of ESBL urinary tract infection and possible pneumonitis, upper respiratory tract infection, anemia of chronic disease who was sent from nursing home [facility] for anemia. Anemia possibly symptomatic. Sp transfusion. Sepsis + VDRF: + fevers again, PNA, otherwise stable - cont vent + abx Dapto + Macrobid + Amikacin, f/u ID rec's Functional quadriplegia Chr MS w contractures and spasms; full code?? Pancreatitis? - resolved - monitor, Hold statin Ileus? - monitor Chr dysphagia/PEG tube/malnutrition; restart feeds Recent ESBL cystitis 2.7 mm pul perihilar nodule? not a surgical candidate CKD Ho basal cell ca Upper ext fracture in splint Bilateral Staghorn calculi DM 2 : suboptimal control PLAN: Continue Vent mgt Continue IV abx per ID Continue supportive care Urology Consult? Adjust insulin therapy Subjective 24 Hr Interval Summary Free Text/Dictation Nursing reports no acute overnight events. Subjective hx not possible: pt non-verbal Exam/Review of Systems Vital Signs Vitals Vital Signs Date Time Temp Pulse Resp B/P Pulse Ox O2 Delivery O2 Flow Rate FiO2 11/21/16 18:03 106 11/21/16 17:40 20 98 30 11/21/16 16:10 102.5 136/66 Intake and Output 11/20/16 11/20/16 11/21/16 15:00 23:00 07:00 Intake Total 300 ml 2360 ml Output Total 800 ml 800 ml Balance -500 ml 1560 ml Exam Gen: No pallor or icterus. Mild bitemporal wasting. Trach C/D CV: Reg, no m/r/g Res: Diminished breath sounds bilaterally Abd: Bs diminished, mildly hyperactive. Distended. Tender? No r/r/g. No flank ecchymosis M/S: No edema. Chr hypotonia/Contractures. Multiple chr wounds. Bilat upper extremity in sling. Results Result Diagram: 11/18/16 0545 11/19/16 0550 Results 24 hrs Laboratory Tests Test 11/20/16 21:56 11/21/16 05:07 11/21/16 07:52 11/21/16 12:19 Bedside Glucose 182 235 H 163 250 H Test 11/21/16 17:47 Bedside Glucose 193 Medications Medications Current Medications Ondansetron HCl (Zofran Inj) 4 mg Q6H PRN IV NAUSEA AND/OR VOMITING; Start at 01:30 Acetaminophen (Tylenol Liquid) 650 mg Q6H PRN GTB ELEVATED TEMPERATURE Last administered on 11/21/16 17:46; Admin Dose 650 MG; Start 11/16/16 at 01:30 Baclofen (Lioresal) 20 mg TID GTB Last administered on 11/21/16 13:33; Admin Dose 20 MG; Start 11/16/16 at 09:00 Magnesium Oxide (Mag-Ox 400) 400 mg BID GTB Last administered on 11/21/16 08: 10; Admin Dose 400 MG; Start 11/16/16 at 09:00 Metoprolol Tartrate (Lopressor) 25 mg BID GTB Last administered on 11/21/16 08 :10; Admin Dose 25 MG; Start 11/16/16 at 09:00 Lansoprazole (Prevacid) 30 mg DAILY@06 GTB Last administered on 11/21/16 05:12 ; Admin Dose 30 MG; Start 11/16/16 at 06:00 Simethicone (Mylicon) 160 mg DAILY PRN GTB DISTENSION/GAS/BLOATING Last administered on 11/18/16 12:30; Admin Dose 160 MG; Start 11/16/16 at 01:30 Zinc Sulfate (Zinc Sulfate) 220 mg DAILY GTB Last administered on 11/21/16 08: 09; Admin Dose 220 MG; Start 11/16/16 at 09:00 Diphenhydramine HCl (Benadryl Liquid Cup) 25 mg Q6H PRN GTB ITCHING; Start at 02:00 Clonidine (Catapres) 0.1 mg Q6H PRN GTB SBP >160; Start 11/16/16 at 02:06 Miscellaneous Information 1 ea NOTE XX ; Start 11/16/16 at 11:30 Glucose (Glutose) 15 gm Q15M PRN PO DECREASED GLUCOSE; Start 11/16/16 at 11:30 Glucose (Glutose) 22.5 gm Q15M PRN PO DECREASED GLUCOSE; Start 11/16/16 at 11: 30 Dextrose (D50w Syringe) 25 ml Q15M PRN IV DECREASED GLUCOSE; Start 11/16/16 at 11:30 Dextrose (D50w Syringe) 50 ml Q15M PRN IV DECREASED GLUCOSE; Start 11/16/16 at 11:30 Glucagon (Glucagen) 1 mg Q15M PRN IM DECREASED GLUCOSE; Start 11/16/16 at 11:30 Glucose (Glutose) 15 gm Q15M PRN BUCCAL DECREASED GLUCOSE; Start 11/16/16 at 11 :30 Collagenase (Santyl) 1 applic DAILY TOP Last administered on 11/21/16 08:13; Admin Dose 1 APPLIC; Start 11/17/16 at 09:00 Insulin Aspart NOVOLOG *MODERATE* ALGORITHM Q6 SC Last administered on 17:49; Admin Dose 4 UNIT; Start 11/17/16 at 00:00 Sodium Chloride (NS) 1,000 ml @ 75 mls/hr [id number] IV Last administered on 11/21 12:19; Admin Dose 75 MLS/HR; Start 11/17/16 at 14:00 Diphenhydramine HCl (Benadryl) 50 mg Q6H PRN IV ALLERGIC REACTION Last administered on 11/17/16 22:51; Admin Dose 50 MG; Start 11/17/16 at 16:30 Famotidine (Pepcid Iv) 20 mg BID IV Last administered on 11/21/16 08:09; Admin Dose 20 MG; Start 11/17/16 at 21:00 Insulin Glargine (Lantus) 15 unit DAILY@08 SC Last administered on 11/21/16 08 :13; Admin Dose 15 UNIT; Start 11/18/16 at 08:00 Magnesium Hydroxide (Milk Of Mag) 30 ml DAILY PRN PO CONSTIPATION Last administered on 11/19/16 12:41; Admin Dose 30 ML; Start 11/18/16 at 00:30 Ibuprofen (Motrin) 600 mg Q6H PRN PO PAIN OR TEMP ABOVE 38C; Start 11/20/16 at 13:00 Linezolid 600 mg 600 mg BID PO Last administered on 11/21/16 08:10; Admin Dose 600 MG; Start 11/20/16 at 21:00 Colistimethate Sodium/Sodium Chloride (Coly-Mycin/NS) 100 ml @ 200 mls/hr Q12 IVPB Last administered on 11/21/16 13:33; Admin Dose 200 MLS/HR; Start at 12:30 DIVINE PERKINS Nov 21, 2016 19:26
[2016-11-21] MEDS: IBUPROFEN 600 MG TAB PO PRN (22:26)
[2016-11-22] VITALS (26 sets, daily range): BP systolic 130–178; BP diastolic 63–83; PULSE 90–130; RESP 16–27
[2016-11-22] MEDS: INSULIN ASPART [NOVOLOG] 3 ML PEN SC SCH ×4 (00:22→18:43)
[2016-11-22] MEDS: SOD CHLORIDE 0.9% 1,000 ML IV SCH ×3 (00:40→14:00)
[2016-11-22] MEDS: ALBUTEROL HFA 8 GM INHALER INH SCH ×4 (02:19→20:13)
[2016-11-22] MEDS: LANSOPRAZOLE 30 MG CAP GTB SCH (05:18)
[2016-11-22 07:34] LABS: CREATININE 0.79 mg/dl (0.44-1.00)
[2016-11-22] MEDS: INSULIN GLARGINE [LANtus] 3 ML PEN SC SCH (08:59)
[2016-11-22] MEDS: ZYVOX 600 MG TAB PO SCH ×2 (10:30→21:17)
[2016-11-22] MEDS: ZINC SULFATE 220 MG CAP GTB SCH (10:30)
[2016-11-22] MEDS: FAMOTIDINE 20 MG INJ IV SCH ×2 (10:30→21:19)
[2016-11-22] MEDS: COLISTIMETHATE 75 MG in SOD CHLORIDE 0.9% 100 ML IVPB SCH ×2 (10:30→21:19)
[2016-11-22] MEDS: MAGNESIUM OXIDE 400 MG TAB GTB SCH ×2 (10:30→21:17)
[2016-11-22] MEDS: METOPROLOL 25 MG TAB GTB SCH ×2 (10:30→21:18)
[2016-11-22] MEDS: BACLOFEN 10 MG TAB GTB SCH ×3 (10:30→21:18)
[2016-11-22] MEDS: COLLAGENASE 30 GM TUBE TOP SCH (10:31)
--- NOTE | 2016-11-22 11:01 | CONS ---
Date/Time of Note Date/Time of Note DATE: 11/22/16 TIME: 10:59 Assessment/Plan Assessment/Plan Chief Complaint/Hosp Course Patient is a 56-year-old lady who was admitted for treatment of sepsis as well as anemia. Pulmonary consultation obtained for management of respiratory failure. Patient on mechanical ventilation chronically due to underlying severe multiple sclerosis. History present illness; 6-year-old lady admitted for treatment of severe sepsis as well as anemia. She was obtained from medical records as the patient is unable to give any history whatsoever by herself. The time I saw the patient the patient is on mechanical ventilation via tracheostomy patient is unresponsive. Patient on medical records, the patient has remained hemodynamically stable. Past medical history; 1. History of severe multiple sclerosis ventilator dependent. 2. History of multiple episodes of UTI. 3. Status post G-tube and tracheostomy. 4. Decubitus ulcers. Next Medications; were reviewed. Allergies; are to cephalosporins, penicillins, Levaquin and vancomycin. Social history; noncontributory. Family history; not available. Occupational history; patient is disabled. Review of systems; currently unable to be obtained. General examination; middle aged woman, on ventilator via tracheostomy unresponsive. Currently in no distress. Problems: Additional Assessment/Plan Ventilator settings; AC of 16, tidal volume 450, PEEP of 0. 30% FiO2. Assessment and recommendation; 1. Patient admitted for treatment of sepsis due to UTI with significant clinical improvement. 2. Chronic respiratory failure due to advanced multiple sclerosis. 3. History of hypertension. 4. Sacral decubitus ulcer. Continue supportive care. Add PEEP of 5. Consultation Date/Type/Reason Admit Date/Time Nov 15, 2016 at 22:42 Initial Consult Date 11/18/16 Type of Consultation: Pulmonary 24 HR Interval Summary Free Text/Dictation Patient's condition remains stable. Remained essentially unresponsive. General examination; young woman, on ventilator via tracheostomy unresponsive. Currently in no distress. Exam/Review of Systems Vital Signs Vitals Vital Signs Date Time Temp Pulse Resp B/P Pulse Ox O2 Delivery O2 Flow Rate FiO2 11/22/16 09:05 139 21 96 30 11/22/16 07:32 98.0 178/83 Intake and Output 11/21/16 11/21/16 11/22/16 15:00 23:00 07:00 Intake Total 100 ml 1810 ml Output Total 1800 ml 650 ml Balance 100 ml -1800 ml 1160 ml Exam H EENT examination; supple neck, no JVD. No lymphadenopathy. Tracheostomy in place with clean insertion site. Pupils are midsize and reactive to light. Chest examination; clear to auscultation. S1-S2 audible, no murmurs. Regular rhythm. Abdomen examination; soft, G-tube in place. Bowel sounds audible. No organomegaly. Extremity examination; no peripheral edema. Back examination; there is a dressing applied over the sacral area. SYRUP FILTERER examination; patient remains unresponsive. Results Result Diagram: 11/18/16 0545 11/22/16 0622 Results 24 hrs Laboratory Tests Test 11/21/16 12:19 11/21/16 17:47 11/22/16 00:18 11/22/16 05:22 Bedside Glucose 250 H 193 206 203 Test 11/22/16 06:22 11/22/16 08:55 Blood Urea Nitrogen 25 H Creatinine 0.79 Bedside Glucose 233 H Medications Medications Current Medications Ondansetron HCl (Zofran Inj) 4 mg Q6H PRN IV NAUSEA AND/OR VOMITING; Start at 01:30 Acetaminophen (Tylenol Liquid) 650 mg Q6H PRN GTB ELEVATED TEMPERATURE Last administered on 11/21/16 23:26; Admin Dose 650 MG; Start 11/16/16 at 01:30 Baclofen (Lioresal) 20 mg TID GTB Last administered on 11/22/16 10:30; Admin Dose 20 MG; Start 11/16/16 at 09:00 Magnesium Oxide (Mag-Ox 400) 400 mg BID GTB Last administered on 11/22/16 10: 30; Admin Dose 400 MG; Start 11/16/16 at 09:00 Metoprolol Tartrate (Lopressor) 25 mg BID GTB Last administered on 11/22/16 10 :30; Admin Dose 25 MG; Start 11/16/16 at 09:00 Lansoprazole (Prevacid) 30 mg DAILY@06 GTB Last administered on 11/22/16 05:18 ; Admin Dose 30 MG; Start 11/16/16 at 06:00 Simethicone (Mylicon) 160 mg DAILY PRN GTB DISTENSION/GAS/BLOATING Last administered on 2/17/17at 12:30; Admin Dose 160 MG; Start 11/16/16 at 01:30 Zinc Sulfate (Zinc Sulfate) 220 mg DAILY GTB Last administered on 11/22/16 10: 30; Admin Dose 220 MG; Start 11/16/16 at 09:00 Diphenhydramine HCl (Benadryl Liquid Cup) 25 mg Q6H PRN GTB ITCHING; Start at 02:00 Clonidine (Catapres) 0.1 mg Q6H PRN GTB SBP >160; Start 11/16/16 at 02:06 Miscellaneous Information 1 ea NOTE XX ; Start 11/16/16 at 11:30 Glucose (Glutose) 15 gm Q15M PRN PO DECREASED GLUCOSE; Start 11/16/16 at 11:30 Glucose (Glutose) 22.5 gm Q15M PRN PO DECREASED GLUCOSE; Start 11/16/16 at 11: 30 Dextrose (D50w Syringe) 25 ml Q15M PRN IV DECREASED GLUCOSE; Start 11/16/16 at 11:30 Dextrose (D50w Syringe) 50 ml Q15M PRN IV DECREASED GLUCOSE; Start 11/16/16 at 11:30 Glucagon (Glucagen) 1 mg Q15M PRN IM DECREASED GLUCOSE; Start 11/16/16 at 11:30 Glucose (Glutose) 15 gm Q15M PRN BUCCAL DECREASED GLUCOSE; Start 11/16/16 at 11 :30 Collagenase (Santyl) 1 applic DAILY TOP Last administered on 11/22/16 10:31; Admin Dose 1 APPLIC; Start 11/17/16 at 09:00 Insulin Aspart NOVOLOG *MODERATE* ALGORITHM Q6 SC Last administered on 05:35; Admin Dose 4 UNIT; Start 11/17/16 at 00:00 Sodium Chloride (NS) 1,000 ml @ 75 mls/hr [id number] IV Last administered on 11/22 05:19; Admin Dose 75 MLS/HR; Start 11/17/16 at 14:00 Diphenhydramine HCl (Benadryl) 50 mg Q6H PRN IV ALLERGIC REACTION Last administered on 11/17/16 22:51; Admin Dose 50 MG; Start 11/17/16 at 16:30 Famotidine (Pepcid Iv) 20 mg BID IV Last administered on 11/22/16 10:30; Admin Dose 20 MG; Start 11/17/16 at 21:00 Insulin Glargine (Lantus) 15 unit DAILY@08 SC Last administered on 11/22/16 08 :59; Admin Dose 15 UNIT; Start 11/18/16 at 08:00 Magnesium Hydroxide (Milk Of Mag) 30 ml DAILY PRN PO CONSTIPATION Last administered on 11/19/16 12:41; Admin Dose 30 ML; Start 11/18/16 at 00:30 Ibuprofen (Motrin) 600 mg Q6H PRN PO PAIN OR TEMP ABOVE 38C Last administered on 11/21/16 22:26; Admin Dose 600 MG; Start 11/20/16 at 13:00 Linezolid 600 mg 600 mg BID PO Last administered on 11/22/16 10:30; Admin Dose 600 MG; Start 11/20/16 at 21:00 Colistimethate Sodium/Sodium Chloride (Coly-Mycin/NS) 100 ml @ 200 mls/hr Q12 IVPB Last administered on 11/22/16 10:30; Admin Dose 200 MLS/HR; Start at 12:30 ARYAN COLLADO Nov 22, 2016 11:01
[2016-11-22 11:02] LABS: BASOPHILS % 0.3 % (0.0-2.0); EOSINOPHILS # 0.3 10^3/ul (0.0-0.5); EOSINOPHILS % 4.1 % (0.0-7.0); HEMATOCRIT 32.3 % (37.0-47.0); HEMOGLOBIN 10.6 g/dl (12.0-16.0); LYMPHOCYTES # 0.6 10^3/ul (0.8-2.9); LYMPHOCYTES % 6.5 % (15.0-51.0); MEAN CORPUSCULAR HEMOGLOBIN 28.8 pg (29.0-33.0); MEAN CORPUSCULAR HGB CONC 32.8 g/dl (32.0-37.0); MEAN CORPUSCULAR VOLUME 87.7 fl (82.0-101.0); MEAN PLATELET VOLUME 8.7 fl (7.4-10.4); MONOCYTE # 0.1 10^3/ul (0.3-0.9); MONOCYTES % 1.2 % (0.0-11.0); NEUTROPHIL # 7.4 10^3/ul (1.6-7.5); NEUTROPHILS % 87.9 % (39.0-77.0); PLATELET COUNT 296 10^3/UL (140-440); RED BLOOD COUNT 3.69 10^6/ul (4.20-5.40); RED CELL DISTRIBUTION WIDTH 17.1 % (11.5-14.5); UNCORRECTED WBC 8.5 10^3/ul (4.8-10.8); WHITE BLOOD COUNT 8.5 10^3/ul (4.8-10.8)
[2016-11-22 11:05] LABS: ALBUMIN 3.6 g/dl (3.3-4.9)
[2016-11-22 11:08] LABS: CREATININE 0.78 mg/dl (0.44-1.00)
[2016-11-22 11:09] LABS: CALCIUM 8.2 mg/dl (8.4-10.2); MAGNESIUM 2.2 mg/dl (1.7-2.5); PHOSPHORUS 2.2 mg/dl (2.5-4.9)
[2016-11-22 11:14] LABS: POTASSIUM 2.9 mmol/L (3.5-5.1)
[2016-11-22 11:17] LABS: CONDITION 1; LH ANALYZER COMMENTS 1; SUSPECT 1
--- NOTE | 2016-11-22 13:03 | PN ---
DATE: 11/22/2016 SUBJECTIVE: No changes overnight. The patient is tachycardic, lying comfortably in bed. T-max was 101.5 today. Highest temperature was 100.9, currently 98. WBC 8.5, platelets 296, neutrophils 87. 9, BUN 22, creatinine 0.78. MICROBIOLOGY: Urine culture growing Klebsiella ESBL and Pseudomonas aeruginosa, both multi-drug res istant organisms. Blood cultures had been negative. Endotracheal aspirate growing gram-negative ro ds. INDWELLINGS: Trach, PEG, Joel, PICC line placed on 11/20/2016. PHYSICAL EXAMINATION: GENERAL: This is a fragile, chronically ill-appearing, middle-aged woman who is lying comfortably i n bed. HEENT: Head atraumatic, normocephalic. Sclerae anicteric. Buccal mucosa dry. NECK: Supple. Tracheostomy present. CHEST: Rise symmetrical. Breath sounds diminished to bases. HEART: S1, S2. ABDOMEN: Soft, bowel tones present. EXTREMITIES: Without cyanosis. Bilateral trace edema. SKIN: With multiple decubitus. ASSESSMENT: 1. Sepsis secondary to #2. 2. Urinary tract infection with urine culture growing multi-drug resistant organisms. 3. Pneumonia. 4. Decubitus. 5. Kidney stones. 6. Functional quadriplegia secondary to multiple sclerosis. PLAN: The patient remains stable on appropriate antimicrobials. Continue present care. Await for clinical improvement. Dictated By: FLEX DENNISON WAREHOUSE PRICING AND INVENTORY CLERK for CRISTINA WHITFIELD/NTS Conf#: [id number] DID#: [id number]
--- NOTE | 2016-11-22 16:35 | PN ---
Date/Time of Note Date/Time of Note DATE: 11/22/16 TIME: 16:19 Assessment/Plan VTE Prophylaxis VTE Prophylaxis Intervention: heparin Lines/Catheters IV Catheter Type (from Nrs): PICC Line Central line still needed: Yes Urinary Cath still in place: Yes Reason Cath still needed: other (indicate) (quadriplegia) Assessment/Plan Assessment/Plan An unfortunate 56-year-old female chronically encephalopathic 2/2 CVA +multiple sclerosis who resides at a halfway facility with who was originally sent from halfway facility for anemia. PROBLEMS: Chronic Encephalopathy with hx of CVA Multiple sclerosis with functional Quadriplegia Chronic resp failure Ventilator dependent via trach Sepsis 2/2 * MDR Pseudomonas HCAP * ESBL K pneumo / Pseudomonas UTI Chronic dysphagia s/p PEG tube on tube feedings 2.7 mm Pulmonary perihilar nodule Acute renal insufficiency: resolved Upper ext fracture in splint Bilateral Staghorn calculi DM 2 : suboptimal control Severe Anemia of chronic disease s/p transfusion Stage 4 sacral ulcer Hypokalemia Hypophosphatemia Hypernatremia Severe constipation on last CT PLAN: Continue Vent mgt Continue Abx per ID Adjust insulin therapy for improved DM control Continue tube feedings / d/c IVF / replace lytes / serial labs Continue wound care and frequent turns Start stool softeners and laxatives / KUB No residuals on PEG feeds per nursing Continue all supportive care No family members at bedside Patient has extremely poor [facility] prognosis and will benefit from palliative care. PROPHYLAXIS: resume Heparin, closely monitor hgb / PPI Subjective 24 Hr Interval Summary Free Text/Dictation Patient seen and examined. still having fevers Subjective hx not possible: pt non-verbal Exam/Review of Systems Vital Signs Vitals Vital Signs Date Time Temp Pulse Resp B/P Pulse Ox O2 Delivery O2 Flow Rate FiO2 11/22/16 15:50 98.0 114 22 133/76 94 11/22/16 15:25 30 Intake and Output 11/21/16 11/21/16 11/22/16 15:00 23:00 07:00 Intake Total 100 ml 1810 ml Output Total 1800 ml 650 ml Balance 100 ml -1800 ml 1160 ml Exam Constitutional: frail, non-verbal, other (vegetative), No alert, No oriented Psych: No nl mood/affect Head: normocephalic ENMT: other (trach to vent) Respiratory: diminished breath sounds Cardiovascular: No murmurs/extra sounds, No regular rate and rhythm Gastrointestinal: bowel sounds (hypoactive), distended, firm Musculoskeletal: other (daniel foot drop, functional quadriplegia, severe msc wasting) Neurological: unresponsive, No nl mental status Results Result Diagram: 11/22/16 0622 11/22/16 0622 Results 24 hrs Laboratory Tests Test 11/21/16 17:47 11/22/16 00:18 11/22/16 05:22 11/22/16 06:22 Bedside Glucose 193 206 203 Albumin 3.6 Anion Gap 22 H Basophils # 0.0 Basophils % 0.3 Blood Morphology Comment Blood Urea Nitrogen 25 H Calcium Level 8.2 L Carbon Dioxide Level 20 L Chloride Level 112 H Creatinine 0.78 Eosinophils # 0.3 Eosinophils % 4.1 Glucose Level 212 Hematocrit 32.3 L Hemoglobin 10.6 L Lymphocytes # 0.6 L Lymphocytes % 6.5 L Magnesium Level 2.2 Mean Corpuscular Hemoglobin 28.8 L Mean Corpuscular Hemoglobin Concent 32.8 Mean Corpuscular Volume 87.7 Mean Platelet Volume 8.7 Monocytes # 0.1 L Monocytes % 1.2 Neutrophils # 7.4 Neutrophils % 87.9 H Nucleated Red Blood Cells # 0.0 Nucleated Red Blood Cells % 0.0 Phosphorus Level 2.2 L Platelet Count 296 Potassium Level 2.9 *L Red Blood Count 3.69 L Red Cell Distribution Width 17.1 H Sodium Level 151 H White Blood Count 8.5 Test 11/22/16 08:55 11/22/16 12:36 Bedside Glucose 233 H 285 H Medications Medications Current Medications Ondansetron HCl (Zofran Inj) 4 mg Q6H PRN IV NAUSEA AND/OR VOMITING; Start at 01:30 Acetaminophen (Tylenol Liquid) 650 mg Q6H PRN GTB ELEVATED TEMPERATURE Last administered on 11/21/16 23:26; Admin Dose 650 MG; Start 11/16/16 at 01:30 Baclofen (Lioresal) 20 mg TID GTB Last administered on 11/22/16 14:36; Admin Dose 20 MG; Start 11/16/16 at 09:00 Magnesium Oxide (Mag-Ox 400) 400 mg BID GTB Last administered on 11/22/16 10: 30; Admin Dose 400 MG; Start 11/16/16 at 09:00 Metoprolol Tartrate (Lopressor) 25 mg BID GTB Last administered on 11/22/16 10 :30; Admin Dose 25 MG; Start 11/16/16 at 09:00 Lansoprazole (Prevacid) 30 mg DAILY@06 GTB Last administered on 11/22/16 05:18 ; Admin Dose 30 MG; Start 11/16/16 at 06:00 Simethicone (Mylicon) 160 mg DAILY PRN GTB DISTENSION/GAS/BLOATING Last administered on 11/18/16 12:30; Admin Dose 160 MG; Start 11/16/16 at 01:30 Zinc Sulfate (Zinc Sulfate) 220 mg DAILY GTB Last administered on 11/22/16 10: 30; Admin Dose 220 MG; Start 11/16/16 at 09:00 Diphenhydramine HCl (Benadryl Liquid Cup) 25 mg Q6H PRN GTB ITCHING; Start at 02:00 Clonidine (Catapres) 0.1 mg Q6H PRN GTB SBP >160; Start 11/16/16 at 02:06 Miscellaneous Information 1 ea NOTE XX ; Start 11/16/16 at 11:30 Glucose (Glutose) 15 gm Q15M PRN PO DECREASED GLUCOSE; Start 11/16/16 at 11:30 Glucose (Glutose) 22.5 gm Q15M PRN PO DECREASED GLUCOSE; Start 11/16/16 at 11: 30 Dextrose (D50w Syringe) 25 ml Q15M PRN IV DECREASED GLUCOSE; Start 11/16/16 at 11:30 Dextrose (D50w Syringe) 50 ml Q15M PRN IV DECREASED GLUCOSE; Start 11/16/16 at 11:30 Glucagon (Glucagen) 1 mg Q15M PRN IM DECREASED GLUCOSE; Start 11/16/16 at 11:30 Glucose (Glutose) 15 gm Q15M PRN BUCCAL DECREASED GLUCOSE; Start 11/16/16 at 11 :30 Collagenase (Santyl) 1 applic DAILY TOP Last administered on 11/22/16 10:31; Admin Dose 1 APPLIC; Start 11/17/16 at 09:00 Insulin Aspart (Novolog Insulin Pen) NOVOLOG *MODERATE* ALGORITHM Q6 SC Last administered on 11/22/16 12:42; Admin Dose 8 UNIT; Start 11/17/16 at 00:00 Diphenhydramine HCl (Benadryl) 50 mg Q6H PRN IV ALLERGIC REACTION Last administered on 11/17/16 22:51; Admin Dose 50 MG; Start 11/17/16 at 16:30 Famotidine (Pepcid Iv) 20 mg BID IV Last administered on 11/22/16 10:30; Admin Dose 20 MG; Start 11/17/16 at 21:00 Magnesium Hydroxide (Milk Of Mag) 30 ml DAILY PRN PO CONSTIPATION Last administered on 11/19/16 12:41; Admin Dose 30 ML; Start 11/18/16 at 00:30 Ibuprofen (Motrin) 600 mg Q6H PRN PO PAIN OR TEMP ABOVE 38C Last administered on 11/21/16 22:26; Admin Dose 600 MG; Start 11/20/16 at 13:00 Linezolid 600 mg 600 mg BID PO Last administered on 11/22/16 10:30; Admin Dose 600 MG; Start 11/20/16 at 21:00 Colistimethate Sodium/Sodium Chloride (Coly-Mycin/NS) 100 ml @ 200 mls/hr Q12 IVPB Last administered on 11/22/16 10:30; Admin Dose 200 MLS/HR; Start at 12:30 Insulin Glargine (Lantus) 20 unit DAILY@08 SC ; Start 11/23/16 at 08:00 Lactulose (Enulose) 20 gm Q8 PO ; Start 11/22/16 at 16:30; Stop 11/24/16 at 16: 29 Polyethylene Glycol (Miralax) 17 gm DAILY NGT ; Start 11/23/16 at 09:00 Procedures Procedures PROCEDURE: US Renal CLINICAL INDICATION: Possible obstruction TECHNIQUE: Multiple sonographic images of the kidneys and bladder were obtained. Evaluation of the kidneys and bladder was performed as well with lunsford scale and color and Doppler evaluation using a curved array transducer. The images were reviewed on a high-resolution PACS workstation. COMPARISON: 10/15/2016 FINDINGS: The right kidney measures 10.0 cm in length. The left kidney measures 11.1 cm in length. There are large calculi within the central right arm and kidney, likely representing a staghorn calculus within the renal pelvis measuring approximately 4.1 x 1.5 cm. There is moderate superior pole caliectasis. There is a 1.9 x 1.3 cm cyst within the cortex of the mid pole of the right kidney. There are large calculi within the central left kidney which appear as a staghorn calculus within the left renal pelvis with mild associated pelvocaliectasis. The bladder is nondistended with a Joel catheter in place. No dilated distal ureter is identified. IMPRESSION: 1. When compared to the previous sonogram done 10/15/2016, large calculi are again seen within the central aspect of each kidney probably representing staghorn calculi within the renal pelves. 2. There is moderate caliectasis within the superior pole right kidney and mild diffuse left caliectasis which has developed since the previous study. 3. A 1.9 cm in maximal diameter cyst is again seen within the mid pole of the right kidney. 4. A Joel catheter is again seen in a nondistended bladder. Physician Gianna Date Time Electronically viewed and signed by Physician Gianna on 11/21/2016 13:35 RH/ CC: FLEX DENNISON NP, BOLATITO M. Nov 22, 2016 16:33
[2016-11-22] MEDS: LACTULOSE 30ML CUP PO SCH ×2 (18:29→21:17)
[2016-11-22] MEDS: POTASSIUM PHOSPHATE 15 MM in SOD CHLORIDE 0.9% 250 ML IVPB SCH ×2 (18:29→21:19)
[2016-11-22] MEDS: ACETAMINOPHEN 650MG/20.3ML CUP GTB PRN (19:01)
--- NOTE | 2016-11-22 19:19 | RADRPT ---
PROCEDURE: XR Abdomen. CLINICAL INDICATION: Abdominal pain and distension. TECHNIQUE: AP supine abdomen x-ray. COMPARISON: 11/17/2016. FINDINGS: There is a gastrostomy tube overlying the stomach. A Joel catheter is present in the bladder. There is no evidence of bowel obstruction. A large amount of stool is present in the rectosigmoid co nsistent with constipation. There are bilateral staghorn renal calculi as seen previously. There are degenerative changes of the spine. IMPRESSION: 1. Gastrostomy tube and Joel catheter. 2. Constipation. 3. Bilateral staghorn renal calculi. 4. Degenerative changes of the spine. RPTAT: QQ .Bryant Naik MD, MD Date Time Electronically viewed and signed by .Bryant Naik MD, on 11/22/2016 19:18 .R/
[2016-11-22] MEDS: IBUPROFEN 600 MG TAB PO PRN (21:17)
[2016-11-22] MEDS: HEPARIN 5,000 UNIT/0.5 ML SYG SC SCH (21:20)
[2016-11-23] VITALS (26 sets, daily range): BP systolic 105–174; BP diastolic 58–98; PULSE 96–150; RESP 16–28
[2016-11-23] MEDS: INSULIN ASPART [NOVOLOG] 3 ML PEN SC SCH ×4 (00:15→17:47)
[2016-11-23] MEDS: ALBUTEROL HFA 8 GM INHALER INH SCH ×4 (01:17→20:18)
[2016-11-23] MEDS: LANSOPRAZOLE 30 MG CAP GTB SCH (05:33)
[2016-11-23] MEDS: LACTULOSE 30ML CUP PO SCH ×3 (05:33→21:46)
[2016-11-23] MEDS: ACETAMINOPHEN 650MG/20.3ML CUP GTB PRN ×2 (06:46→18:18)
[2016-11-23] MEDS: IBUPROFEN 600 MG TAB PO PRN ×2 (06:46→18:18)
[2016-11-23 07:50] LABS: ALBUMIN 3.7 g/dl (3.3-4.9); POTASSIUM 3.6 mmol/L (3.5-5.1)
[2016-11-23 07:53] LABS: CALCIUM 8.6 mg/dl (8.4-10.2); CREATININE 0.74 mg/dl (0.44-1.00); PHOSPHORUS 3.1 mg/dl (2.5-4.9)
[2016-11-23] MEDS ORDERED: INSULIN GLARGINE [LANtus] 3 ML PEN SC SCH (08:00)
[2016-11-23] MEDS: POLYETHYLENE GLYCOL 17 GM PACKET NGT SCH (08:46)
[2016-11-23] MEDS: ZYVOX 600 MG TAB PO SCH ×2 (08:46→21:25)
[2016-11-23] MEDS: FAMOTIDINE 20 MG INJ IV SCH ×2 (08:46→21:24)
[2016-11-23] MEDS: METOPROLOL 25 MG TAB GTB SCH ×2 (08:47→21:25)
[2016-11-23] MEDS: MAGNESIUM OXIDE 400 MG TAB GTB SCH ×2 (08:47→21:25)
[2016-11-23] MEDS: COLLAGENASE 30 GM TUBE TOP SCH (08:47)
[2016-11-23] MEDS: ZINC SULFATE 220 MG CAP GTB SCH (08:47)
[2016-11-23] MEDS: BACLOFEN 10 MG TAB GTB SCH ×3 (08:47→21:24)
[2016-11-23] MEDS: COLISTIMETHATE 75 MG in SOD CHLORIDE 0.9% 100 ML IVPB SCH ×2 (08:49→21:47)
[2016-11-23] MEDS: HEPARIN 5,000 UNIT/0.5 ML SYG SC SCH ×2 (08:51→22:15)
[2016-11-23 09:43] LABS: BASOPHILS % 0.1 % (0.0-2.0); EOSINOPHILS # 0.3 10^3/ul (0.0-0.5); EOSINOPHILS % 3.7 % (0.0-7.0); HEMATOCRIT 31.7 % (37.0-47.0); HEMOGLOBIN 10.8 g/dl (12.0-16.0); LYMPHOCYTES # 0.6 10^3/ul (0.8-2.9); LYMPHOCYTES % 8.8 % (15.0-51.0); MEAN CORPUSCULAR HEMOGLOBIN 29.3 pg (29.0-33.0); MEAN CORPUSCULAR HGB CONC 33.9 g/dl (32.0-37.0); MEAN CORPUSCULAR VOLUME 86.3 fl (82.0-101.0); MEAN PLATELET VOLUME 9.1 fl (7.4-10.4); MONOCYTE # 0.4 10^3/ul (0.3-0.9); MONOCYTES % 5.1 % (0.0-11.0); NEUTROPHIL # 5.8 10^3/ul (1.6-7.5); NEUTROPHILS % 82.3 % (39.0-77.0); PLATELET COUNT 295 10^3/UL (140-440); RED BLOOD COUNT 3.67 10^6/ul (4.20-5.40); RED CELL DISTRIBUTION WIDTH 16.4 % (11.5-14.5)
[2016-11-23 09:46] LABS: CONDITION 1; LH ANALYZER COMMENTS 1
--- NOTE | 2016-11-23 11:26 | CONS ---
Date/Time of Note Date/Time of Note DATE: 11/23/16 TIME: 11:23 Assessment/Plan Assessment/Plan Chief Complaint/Hosp Course Patient is a 56-year-old lady who was admitted for treatment of sepsis as well as anemia. Pulmonary consultation obtained for management of respiratory failure. Patient on mechanical ventilation chronically due to underlying severe multiple sclerosis. History present illness; 6-year-old lady admitted for treatment of severe sepsis as well as anemia. She was obtained from medical records as the patient is unable to give any history whatsoever by herself. The time I saw the patient the patient is on mechanical ventilation via tracheostomy patient is unresponsive. Patient on medical records, the patient has remained hemodynamically stable. Past medical history; 1. History of severe multiple sclerosis ventilator dependent. 2. History of multiple episodes of UTI. 3. Status post G-tube and tracheostomy. 4. Decubitus ulcers. Next Medications; were reviewed. Allergies; are to cephalosporins, penicillins, Levaquin and vancomycin. Social history; noncontributory. Family history; not available. Occupational history; patient is disabled. Review of systems; currently unable to be obtained. General examination; middle aged woman, on ventilator via tracheostomy unresponsive. Currently in no distress. Problems: Additional Assessment/Plan Ventilator settings; assist control of 14, tidal volume 450, PEEP of 0, 30% FiO2. Assessment and recommendations; next 1. Chronic respiratory failure due to advanced multiple sclerosis is very poor mental status. 2. Sacral decubitus ulcer, currently getting wound treatment and on appropriate antibiotic regimen. 3. Hypernatremia likely from intravascular volume depletion. Continue current treatment. Increase free water via G-tube to 250 ML every 6 hours. Monitor serum sodium. Consultation Date/Type/Reason Admit Date/Time Nov 15, 2016 at 22:42 Initial Consult Date 11/18/16 Type of Consultation: Pulmonary 24 HR Interval Summary Free Text/Dictation Patient condition remains stable. Has remained hemodynamically stable. Remains essentially unresponsive going to advanced multiple sclerosis. General examination; young woman on ventilator via tracheostomy unresponsive, currently in no distress Exam/Review of Systems Vital Signs Vitals Vital Signs Date Time Temp Pulse Resp B/P Pulse Ox O2 Delivery O2 Flow Rate FiO2 11/23/16 11:14 101 22 99 30 11/23/16 08:07 99.8 174/81 Intake and Output 11/22/16 11/22/16 11/23/16 15:00 23:00 07:00 Intake Total 100 ml 2035 ml 1165 ml Output Total 2000 ml 800 ml Balance 100 ml 35 ml 365 ml Exam H EENT examination; supple neck, no JVD. No lymphadenopathy. Tracheostomy in place with clean insertion site. No neck masses. Pupils are midsize and reactive to light. Chest examination; clear to auscultation bilaterally. S1-S2 audible, no murmurs. Regular rhythm. Abdomen examination; soft, no organomegaly. G-tube in place. Bowel sounds audible. Extremity examination; no peripheral edema. Back examination reveals dressing applied over sacral area. FILER FINISH examination; patient remains unresponsive. Results Result Diagram: 11/23/1635 11/23/16 0635 Results 24 hrs Laboratory Tests Test 11/22/16 12:36 11/22/16 17:57 11/23/16 00:13 11/23/16 05:16 Bedside Glucose 285 H 183 230 H 258 H Test 11/23/16 06:35 11/23/16 08:06 Albumin 3.7 Anion Gap 22 H Basophils # 0.0 Basophils % 0.1 Blood Morphology Comment Blood Urea Nitrogen 23 H Calcium Level 8.6 Carbon Dioxide Level 22 Chloride Level 114 H Creatinine 0.74 Eosinophils # 0.3 Eosinophils % 3.7 Glucose Level 253 H Hematocrit 31.7 L Hemoglobin 10.8 L Lymphocytes # 0.6 L Lymphocytes % 8.8 L Mean Corpuscular Hemoglobin 29.3 Mean Corpuscular Hemoglobin Concent 33.9 Mean Corpuscular Volume 86.3 Mean Platelet Volume 9.1 Monocytes # 0.4 Monocytes % 5.1 Neutrophils # 5.8 Neutrophils % 82.3 H Nucleated Red Blood Cells # 0.0 Nucleated Red Blood Cells % 0.0 Phosphorus Level 3.1 Platelet Count 295 Potassium Level 3.6 Red Blood Count 3.67 L Red Cell Distribution Width 16.4 H Sodium Level 154 H White Blood Count 7.0 Bedside Glucose 258 H Medications Medications Current Medications Ondansetron HCl (Zofran Inj) 4 mg Q6H PRN IV NAUSEA AND/OR VOMITING; Start at 01:30 Acetaminophen (Tylenol Liquid) 650 mg Q6H PRN GTB ELEVATED TEMPERATURE Last administered on 11/23/16t 06:46; Admin Dose 650 MG; Start 11/16/16 at 01:30 Baclofen (Lioresal) 20 mg TID GTB Last administered on 11/23/16 08:47; Admin Dose 20 MG; Start 11/16/16 at 09:00 Magnesium Oxide (Mag-Ox 400) 400 mg BID GTB Last administered on 11/23/16 08: 47; Admin Dose 400 MG; Start 11/16/16 at 09:00 Metoprolol Tartrate (Lopressor) 25 mg BID GTB Last administered on 11/23/16 08 :47; Admin Dose 25 MG; Start 11/16/16 at 09:00 Lansoprazole (Prevacid) 30 mg DAILY@06 GTB Last administered on 11/23/16 05:33 ; Admin Dose 30 MG; Start 11/16/16 at 06:00 Simethicone (Mylicon) 160 mg DAILY PRN GTB DISTENSION/GAS/BLOATING Last administered on 11/18/16 12:30; Admin Dose 160 MG; Start 11/16/16 at 01:30 Zinc Sulfate (Zinc Sulfate) 220 mg DAILY GTB Last administered on 11/23/16 08: 47; Admin Dose 220 MG; Start 11/16/16 at 09:00 Diphenhydramine HCl (Benadryl Liquid Cup) 25 mg Q6H PRN GTB ITCHING; Start at 02:00 Clonidine (Catapres) 0.1 mg Q6H PRN GTB SBP >160; Start 11/16/16 at 02:06 Miscellaneous Information 1 ea NOTE XX ; Start 11/16/16 at 11:30 Glucose (Glutose) 15 gm Q15M PRN PO DECREASED GLUCOSE; Start 11/16/16 at 11:30 Glucose (Glutose) 22.5 gm Q15M PRN PO DECREASED GLUCOSE; Start 11/16/16 at 11: 30 Dextrose (D50w Syringe) 25 ml Q15M PRN IV DECREASED GLUCOSE; Start 11/16/16 at 11:30 Dextrose (D50w Syringe) 50 ml Q15M PRN IV DECREASED GLUCOSE; Start 11/16/16 at 11:30 Glucagon (Glucagen) 1 mg Q15M PRN IM DECREASED GLUCOSE; Start 11/16/16 at 11:30 Glucose (Glutose) 15 gm Q15M PRN BUCCAL DECREASED GLUCOSE; Start 11/16/16 at 11 :30 Collagenase (Santyl) 1 applic DAILY TOP Last administered on 11/23/16 08:47; Admin Dose 1 APPLIC; Start 11/17/16 at 09:00 Insulin Aspart (Novolog Insulin Pen) NOVOLOG *MODERATE* ALGORITHM Q6 SC Last administered on 11/23/16 05:35; Admin Dose 6 UNIT; Start 11/17/16 at 00:00 Diphenhydramine HCl (Benadryl) 50 mg Q6H PRN IV ALLERGIC REACTION Last administered on 11/17/16 22:51; Admin Dose 50 MG; Start 11/17/16 at 16:30 Famotidine (Pepcid Iv) 20 mg BID IV Last administered on 11/23/16 08:46; Admin Dose 20 MG; Start 11/17/16 at 21:00 Magnesium Hydroxide (Milk Of Mag) 30 ml DAILY PRN PO CONSTIPATION Last administered on 11/19/16 12:41; Admin Dose 30 ML; Start 11/18/16 at 00:30 Ibuprofen (Motrin) 600 mg Q6H PRN PO PAIN OR TEMP ABOVE 38C Last administered on 11/23/16 06:46; Admin Dose 600 MG; Start 11/20/16 at 13:00 Linezolid 600 mg 600 mg BID PO Last administered on 11/23/16 08:46; Admin Dose 600 MG; Start 11/20/16 at 21:00 Colistimethate Sodium/Sodium Chloride (Coly-Mycin/NS) 100 ml @ 200 mls/hr Q12 IVPB Last administered on 11/23/16 08:49; Admin Dose 200 MLS/HR; Start at 12:30 Insulin Glargine (Lantus) 20 unit DAILY@08 SC Last administered on 11/23/16 08 :11; Admin Dose 20 UNIT; Start 11/23/16 at 08:00 Lactulose (Enulose) 20 gm Q8 PO Last administered on 11/23/16 05:33; Admin Dose 20 GM; Start 11/22/16 at 16:30; Stop 11/24/16 at 16:29 Polyethylene Glycol (Miralax) 17 gm DAILY NGT Last administered on 11/23/16 08 :46; Admin Dose 17 GM; Start 11/23/16 at 09:00 Heparin Sodium (Porcine) (Heparin (5000 Units/0.5 ml)) 5,000 unit BID SC Last administered on 11/23/16t 08:51; Admin Dose 5,000 UNIT; Start 11/22/16 at 21:00 ARYAN COLLADO Nov 23, 2016 11:25
[2016-11-23] MEDS: metroNIDAZOLE 500 MG TAB PO SCH ×2 (14:13→22:21)
[2016-11-23] MEDS: FLUCONAZOLE 100 MG TAB GTB SCH (14:13)
--- NOTE | 2016-11-23 14:39 | PN ---
DATE: 11/23/2016 SUBJECTIVE: Patient looks ill. She continues to spike fevers with a T-max yesterday was 103.1, T-max today 102.7. Currently, she is afebrile. LABORATORIES: WBC 7, platelets 295, neutrophils 82.3, BUN 23, creatinine 0.74. MICROBIOLOGY: Blood culture on November 22 negative. Endotracheal aspirate is growing Pseudomonas aeruginosa and Morganella morganii. Urine culture growing Klebsiella ESBL, Pseudomonas aeruginosa, multi-drug resistant organisms. INDWELLINGS: Trach, PEG, Joel. PICC line placed on November 20. ANTIMICROBIALS: 1. IV colistin. 2. Oral Zyvox. PHYSICAL EXAMINATION: GENERAL: This is a fragile, chronically ill-appearing, middle-aged woman who is lying comfortably in bed. HEENT: Head atraumatic, normocephalic. Sclerae anicteric. Buccal mucosa dry. NECK: Supple, trachea midline. CHEST: Rise symmetrical. Breath sounds diminished to bases. HEART: S1, S2. ABDOMEN: Distended, soft. Bowel tones present. EXTREMITIES: Without cyanosis. Bilateral wasting edema and multiple decubitus on both ischial sites. ASSESSMENT: 1. Sepsis, multifactorial. 2. Polymicrobial multi-drug resistant urinary tract infection. 3. Kidney stones. No gross evidence of obstruction per ultrasound. 4. Multiple decubitus, likely infected. 5. Functional quadriplegia secondary to advanced multiple sclerosis. 6. Chronic respiratory failure with sputum culture growing multi-drug resistant organisms. PLAN: Continue abx. Add tobramycin inhalation to cover pseudomonas in her sputum. Start empiric Flagyl and Diflucan. Consider urology evaluation. If fevers persist, we will order WBC labeled nuclear scan. She may also benefit from CT of the abdomen with IV contrast as her renal function is getting better now. Dictated By: FLEX DENNISON MEDIA DIRECTOR for CRISTINA HUANG MD NI/NTS Conf#: [id number] DID#: [id number]
[2016-11-23] MEDS ORDERED: TOBRAMYCIN/0.25NS 300 MG/5 ML INHAL NEB SCH (20:00)
--- NOTE | 2016-11-23 20:02 | PN ---
Date/Time of Note Date/Time of Note DATE: 11/23/16 TIME: 20:00 Assessment/Plan VTE Prophylaxis VTE Prophylaxis Intervention: heparin Lines/Catheters IV Catheter Type (from Nrsg): PICC Line Central line still needed: Yes Urinary Cath still in place: Yes Reason Cath still needed: terminal illness/intractable pain Assessment/Plan Assessment/Plan An unfortunate 56-year-old female chronically encephalopathic 2/2 CVA +multiple sclerosis who resides at a alf facility with who was originally sent from alf facility for anemia. PROBLEMS: Chronic Encephalopathy with hx of CVA Multiple sclerosis with functional Quadriplegia Chronic resp failure Ventilator dependent via trach Sepsis 2/ * MDR Pseudomonas HCAP * ESBL K pneumo / Pseudomonas UTI Chronic dysphagia s/p PEG tube on tube feedings 2.7 mm Pulmonary perihilar nodule Acute renal insufficiency: resolved Upper ext fracture in splint Bilateral Staghorn calculi DM 2 : suboptimal control Severe Anemia of chronic disease s/p transfusion Stage 4 sacral ulcer Hypokalemia Hypophosphatemia Hypernatremia Severe constipation on last CT PLAN: Continue Vent mgt Continue Abx per ID Adjust insulin therapy for improved DM control Continue tube feedings / d/c IVF / replace lytes / serial labs Continue wound care and frequent turns continue stool softeners and laxatives / KUB noted No residuals on PEG feeds per nursing Continue all supportive care No family members at bedside Patient has extremely poor 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 nursing home social worker to arrange family meeting PROPHYLAXIS: resume Heparin, closely monitor hgb / PPI Subjective 24 Hr Interval Summary Subjective hx not possible: pt non-verbal, pt critical status Exam/Review of Systems Vital Signs Vitals Vital Signs Date Time Temp Pulse Resp B/P Pulse Ox O2 Delivery O2 Flow Rate FiO2 11/23/16 18:12 101.9 150 28 165/98 95 Mechanical Ventilator 11/23/16 17:12 30 Intake and Output 11/22/16 11/22/16 11/23/16 15:00 23:00 07:00 Intake Total 100 ml 2035 ml 1165 ml Output Total 2000 ml 800 ml Balance 100 ml 35 ml 365 ml Exam Constitutional: frail, non-verbal, other (vegetative), No alert, No oriented Psych: No nl mood/affect Head: normocephalic ENMT: other (trach to vent) Respiratory: diminished breath sounds Cardiovascular: No murmurs/extra sounds, No regular rate and rhythm Gastrointestinal: bowel sounds (hypoactive), distended, firm Musculoskeletal: other (daniel foot drop, functional quadriplegia, severe msc wasting) Neurological: unresponsive, No nl mental status Results Result Diagram: 11/23/16 0635 11/23/16 0635 Results 24 hrs Laboratory Tests Test 11/23/16 00:13 11/23/16 05:16 11/23/16 06:35 11/23/16 08:06 Bedside Glucose 230 H 258 H 258 H Albumin 3.7 Anion Gap 22 H Basophils # 0.0 Basophils % 0.1 Blood Morphology Comment Blood Urea Nitrogen 23 H Calcium Level 8.6 Carbon Dioxide Level 22 Chloride Level 114 H Creatinine 0.74 Eosinophils # 0.3 Eosinophils % 3.7 Glucose Level 253 H Hematocrit 31.7 L Hemoglobin 10.8 L Lymphocytes # 0.6 L Lymphocytes % 8.8 L Mean Corpuscular Hemoglobin 29.3 Mean Corpuscular Hemoglobin Concent 33.9 Mean Corpuscular Volume 86.3 Mean Platelet Volume 9.1 Monocytes # 0.4 Monocytes % 5.1 Neutrophils # 5.8 Neutrophils % 82.3 H Nucleated Red Blood Cells # 0.0 Nucleated Red Blood Cells % 0.0 Phosphorus Level 3.1 Platelet Count 295 Potassium Level 3.6 Red Blood Count 3.67 L Red Cell Distribution Width 16.4 H Sodium Level 154 H White Blood Count 7.0 Test 11/23/16 11:56 11/23/16 17:31 Bedside Glucose 267 H 262 H Medications Medications Current Medications Ondansetron HCl (Zofran Inj) 4 mg Q6H PRN IV NAUSEA AND/OR VOMITING; Start at 01:30 Acetaminophen (Tylenol Liquid) 650 mg Q6H PRN GTB ELEVATED TEMPERATURE Last administered on 11/23/16 18:18; Admin Dose 650 MG; Start 11/16/16 at 01:30 Baclofen (Lioresal) 20 mg TID GTB Last administered on 11/23/16 14:13; Admin Dose 20 MG; Start 11/16/16 at 09:00 Magnesium Oxide (Mag-Ox 400) 400 mg BID GTB Last administered on 11/23/16 08: 47; Admin Dose 400 MG; Start 11/16/16 at 09:00 Metoprolol Tartrate (Lopressor) 25 mg BID GTB Last administered on 11/23/16 08 :47; Admin Dose 25 MG; Start 11/16/16 at 09:00 Lansoprazole (Prevacid) 30 mg DAILY@06 GTB Last administered on 11/23/16 05:33 ; Admin Dose 30 MG; Start 11/16/16 at 06:00 Simethicone (Mylicon) 160 mg DAILY PRN GTB DISTENSION/GAS/BLOATING Last administered on 11/18/16 12:30; Admin Dose 160 MG; Start 11/16/16 at 01:30 Zinc Sulfate (Zinc Sulfate) 220 mg DAILY GTB Last administered on 11/23/16 08: 47; Admin Dose 220 MG; Start 11/16/16 at 09:00 Diphenhydramine HCl (Benadryl Liquid Cup) 25 mg Q6H PRN GTB ITCHING; Start at 02:00 Clonidine (Catapres) 0.1 mg Q6H PRN GTB SBP >160; Start 11/16/16 at 02:06 Miscellaneous Information 1 ea NOTE XX ; Start 11/16/16 at 11:30 Glucose (Glutose) 15 gm Q15M PRN PO DECREASED GLUCOSE; Start 11/16/16 at 11:30 Glucose (Glutose) 22.5 gm Q15M PRN PO DECREASED GLUCOSE; Start 11/16/16 at 11: 30 Dextrose (D50w Syringe) 25 ml Q15M PRN IV DECREASED GLUCOSE; Start 11/16/16 at 11:30 Dextrose (D50w Syringe) 50 ml Q15M PRN IV DECREASED GLUCOSE; Start 11/16/16 at 11:30 Glucagon (Glucagen) 1 mg Q15M PRN IM DECREASED GLUCOSE; Start 11/16/16 at 11:30 Glucose (Glutose) 15 gm Q15M PRN BUCCAL DECREASED GLUCOSE; Start 11/16/16 at 11 :30 Collagenase (Santyl) 1 applic DAILY TOP Last administered on 11/23/16 08:47; Admin Dose 1 APPLIC; Start 11/17/16 at 09:00 Insulin Aspart (Novolog Insulin Pen) NOVOLOG *MODERATE* ALGORITHM Q6 SC Last administered on 11/23/16 17:47; Admin Dose 8 UNIT; Start 11/17/16 at 00:00 Diphenhydramine HCl (Benadryl) 50 mg Q6H PRN IV ALLERGIC REACTION Last administered on 11/17/16 22:51; Admin Dose 50 MG; Start 11/17/16 at 16:30 Famotidine (Pepcid Iv) 20 mg BID IV Last administered on 11/23/16 08:46; Admin Dose 20 MG; Start 11/17/16 at 21:00 Magnesium Hydroxide (Milk Of Mag) 30 ml DAILY PRN PO CONSTIPATION Last administered on 11/19/16 12:41; Admin Dose 30 ML; Start 11/18/16 at 00:30 Ibuprofen (Motrin) 600 mg Q6H PRN PO PAIN OR TEMP ABOVE 38C Last administered on 11/23/16 18:18; Admin Dose 600 MG; Start 11/20/16 at 13:00 Linezolid 600 mg 600 mg BID PO Last administered on 11/23/16 08:46; Admin Dose 600 MG; Start 11/20/16 at 21:00 Colistimethate Sodium/Sodium Chloride (Coly-Mycin/NS) 100 ml @ 200 mls/hr Q12 IVPB Last administered on 11/23/16 08:49; Admin Dose 200 MLS/HR; Start at 12:30 Lactulose (Enulose) 20 gm Q8 PO Last administered on 11/23/16 14:13; Admin Dose 20 GM; Start 11/22/16 at 16:30; Stop 11/24/16 at 16:29 Polyethylene Glycol (Miralax) 17 gm DAILY NGT Last administered on 11/23/16 08 :46; Admin Dose 17 GM; Start 11/23/16 at 09:00 Heparin Sodium (Porcine) (Heparin (5000 Units/0.5 ml)) 5,000 unit BID SC Last administered on 11/23/16 08:51; Admin Dose 5,000 UNIT; Start 11/22/16 at 21:00 Metronidazole (Flagyl) 500 mg Q8 PO Last administered on 11/23/16 14:13; Admin Dose 500 MG; Start 11/23/16 at 14:00 Fluconazole (Diflucan) 100 mg DAILY GTB Last administered on 11/23/16 14:13; Admin Dose 100 MG; Start 11/23/16 at 14:00 Insulin Glargine (Lantus) 25 unit DAILY@08 SC ; Start 11/24/16 at 08:00 DIVINE PERKINS Nov 23, 2016 20:02
[2016-11-23] MEDS ORDERED: MAGNESIUM CITRATE 300 ML BTL NGT ONE (21:30)
[2016-11-23] MEDS: TOBRAMYCIN/0.25NS 300 MG/5 ML INHAL NEB SCH (22:40)
[2016-11-24] VITALS (25 sets, daily range): BP systolic 78–163; BP diastolic 61–94; PULSE 99–139; RESP 17–27
[2016-11-24] MEDS: INSULIN ASPART [NOVOLOG] 3 ML PEN SC SCH ×4 (00:48→18:44)
[2016-11-24] MEDS: ALBUTEROL HFA 8 GM INHALER INH SCH ×2 (01:26→07:55)
[2016-11-24] MEDS ORDERED: LACTULOSE ENEMA 1,000 ML BTL PR ONE (03:30)
[2016-11-24] MEDS: metroNIDAZOLE 500 MG TAB PO SCH ×3 (05:46→21:33)
[2016-11-24] MEDS: LACTULOSE 30ML CUP PO SCH ×2 (05:46→14:00)
[2016-11-24 07:16] LABS: ALBUMIN 3.7 g/dl (3.3-4.9)
[2016-11-24 07:19] LABS: CREATININE 1.02 mg/dl (0.44-1.00)
[2016-11-24 07:20] LABS: CALCIUM 9.6 mg/dl (8.4-10.2); PHOSPHORUS 3.2 mg/dl (2.5-4.9)
[2016-11-24 08:02] LABS: BASOPHILS % 0.4 % (0.0-2.0); EOSINOPHILS # 0.2 10^3/ul (0.0-0.5); EOSINOPHILS % 3.4 % (0.0-7.0); HEMATOCRIT 35.3 % (37.0-47.0); HEMOGLOBIN 10.7 g/dl (12.0-16.0); LYMPHOCYTES # 0.8 10^3/ul (0.8-2.9); LYMPHOCYTES % 11.4 % (15.0-51.0); MEAN CORPUSCULAR HEMOGLOBIN 28.2 pg (29.0-33.0); MEAN CORPUSCULAR HGB CONC 30.3 g/dl (32.0-37.0); MEAN CORPUSCULAR VOLUME 92.9 fl (82.0-101.0); MONOCYTE # 0.4 10^3/ul (0.3-0.9); MONOCYTES % 5.3 % (0.0-11.0); NEUTROPHIL # 5.3 10^3/ul (1.6-7.5); NEUTROPHILS % 79.1 % (39.0-77.0); PLATELET COUNT 315 10^3/UL (140-415); RED CELL DISTRIBUTION WIDTH 17.3 % (11.5-14.5); WHITE BLOOD COUNT 6.7 10^3/ul (4.8-10.8)
[2016-11-24] MEDS: ZINC SULFATE 220 MG CAP GTB SCH (09:00)
[2016-11-24] MEDS: INSULIN GLARGINE [LANtus] 3 ML PEN SC SCH (09:01)
[2016-11-24] MEDS: TOBRAMYCIN/0.25NS 300 MG/5 ML INHAL NEB SCH ×2 (09:22→19:23)
--- NOTE | 2016-11-24 09:50 | PN ---
Date/Time of Note Date/Time of Note DATE: 11/24/16 TIME: 09:41 Assessment/Plan VTE Prophylaxis VTE Prophylaxis Intervention: heparin Lines/Catheters IV Catheter Type (from Nrs): PICC Line Central line still needed: Yes Urinary Cath still in place: Yes Reason Cath still needed: terminal illness/intractable pain, other (indicate) Assessment/Plan Assessment/Plan An unfortunate 56-year-old female chronically encephalopathic 2/2 CVA +multiple sclerosis who resides at a halfway facility with who was originally sent from halfway [facility] for anemia. PROBLEMS: Chronic Encephalopathy with hx of CVA Multiple sclerosis with functional Quadriplegia Chronic resp failure Ventilator dependent via trach Sepsis / * MDR Pseudomonas HCAP * ESBL K pneumo / Pseudomonas UTI Chronic dysphagia s/p PEG tube on tube feedings 2.7 mm Pulmonary perihilar nodule Acute renal insufficiency: resolved Upper ext fracture in splint Bilateral Staghorn calculi DM 2 : suboptimal control Severe Anemia of chronic disease s/p transfusion Stage 4 sacral ulcer Hypernatremia Severe constipation with impacted stool PLAN: * Stat ABG / CXR / IV Cardizem x1 / EKG / Continue Vent mgt * Continue Abx per ID * NPO for now / D5W for hypernatremia / PEG to suction/ Mineral oil enema * Continue wound care and frequent turns * Continue stool softeners and laxatives / KUB noted * Continue all supportive care * No family members at bedside * 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 * Probable family meeting today with editorial specialist PROPHYLAXIS: Heparin, closely monitor hgb / PPI Subjective 24 Hr Interval Summary Free Text/Dictation Patient with tachypnea and tachycardia but no further fever Subjective hx not possible: pt non-verbal Exam/Review of Systems Vital Signs Vitals Vital Signs Date Time Temp Pulse Resp B/P Pulse Ox O2 Delivery O2 Flow Rate FiO2 11/24/16 08:23 139 11/24/16 06:50 98.5 18 112/88 97 11/24/16 05:40 30 11/24/16 00:00 Mechanical Ventilator Intake and Output 11/23/16 11/23/16 11/24/16 15:00 23:00 07:00 Intake Total 100 ml 1160 ml 1050 ml Output Total 1000 ml 400 ml Balance 100 ml 160 ml 650 ml Exam Constitutional: frail, non-verbal, other (vegetative), No alert, No oriented Psych: No nl mood/affect Head: normocephalic ENMT: other (trach to vent) Respiratory: diminished breath sounds Cardiovascular: No murmurs/extra sounds, No regular rate and rhythm Gastrointestinal: bowel sounds (hypoactive), distended, firm Musculoskeletal: other (daniel foot drop, functional quadriplegia, severe msc wasting) Neurological: unresponsive, No nl mental status Results Result Diagram: 11/24/1661911/24/16 0620 Results 24 hrs Laboratory Tests Test 11/23/16 11:56 11/23/16 17:31 11/24/16 00:43 11/24/16 05:37 Bedside Glucose 267 H 262 H 276 H 295 H Test 11/24/16 06:20 11/24/16 08:55 Albumin 3.7 Anion Gap 23 H Basophils # 0.0 Basophils % 0.4 Blood Urea Nitrogen 35 #H Calcium Level 9.6 Carbon Dioxide Level 23 Chloride Level 114 H Creatinine 1.02 H Eosinophils # 0.2 Eosinophils % 3.4 Glucose Level 307 H Hematocrit 35.3 L Hemoglobin 10.7 L Lymphocytes # 0.8 Lymphocytes % 11.4 L Mean Corpuscular Hemoglobin 28.2 L Mean Corpuscular Hemoglobin Concent 30.3 L Mean Corpuscular Volume 92.9 Mean Platelet Volume 11.0 #H Monocytes # 0.4 Monocytes % 5.3 Neutrophils # 5.3 Neutrophils % 79.1 H Nucleated Red Blood Cells # 0.0 Nucleated Red Blood Cells % 0.0 Phosphorus Level 3.2 Platelet Count 315 Potassium Level 4.0 Red Blood Count 3.80 L Red Cell Distribution Width 17.3 H Sodium Level 156 H White Blood Count 6.7 Bedside Glucose 273 H Medications Medications Current Medications Ondansetron HCl (Zofran Inj) 4 mg Q6H PRN IV NAUSEA AND/OR VOMITING; Start at 01:30 Acetaminophen (Tylenol Liquid) 650 mg Q6H PRN GTB ELEVATED TEMPERATURE Last administered on 11/23/16 18:18; Admin Dose 650 MG; Start 11/16/16 at 01:30 Baclofen (Lioresal) 20 mg TID GTB Last administered on 11/23/16 21:24; Admin Dose 20 MG; Start 11/16/16 at 09:00 Magnesium Oxide (Mag-Ox 400) 400 mg BID GTB Last administered on 11/23/16 21: 25; Admin Dose 400 MG; Start 11/16/16 at 09:00 Metoprolol Tartrate (Lopressor) 25 mg BID GTB Last administered on 11/23/16 21 :25; Admin Dose 25 MG; Start 11/16/16 at 09:00 Lansoprazole (Prevacid) 30 mg DAILY@06 GTB Last administered on 11/23/16 05:33 ; Admin Dose 30 MG; Start 11/16/16 at 06:00; Status Future Hold Simethicone (Mylicon) 160 mg DAILY PRN GTB DISTENSION/GAS/BLOATING Last administered on 11/18/16 12:30; Admin Dose 160 MG; Start 11/16/16 at 01:30 Zinc Sulfate (Zinc Sulfate) 220 mg DAILY GTB Last administered on 11/23/16 08: 47; Admin Dose 220 MG; Start 11/16/16 at 09:00 Diphenhydramine HCl (Benadryl Liquid Cup) 25 mg Q6H PRN GTB ITCHING; Start at 02:00 Clonidine (Catapres) 0.1 mg Q6H PRN GTB SBP >160; Start 11/16/16 at 02:06 Miscellaneous Information 1 ea NOTE XX ; Start 11/16/16 at 11:30 Glucose (Glutose) 15 gm Q15M PRN PO DECREASED GLUCOSE; Start 11/16/16 at 11:30 Glucose (Glutose) 22.5 gm Q15M PRN PO DECREASED GLUCOSE; Start 11/16/16 at 11: 30 Dextrose (D50w Syringe) 25 ml Q15M PRN IV DECREASED GLUCOSE; Start 11/16/16 at 11:30 Dextrose (D50w Syringe) 50 ml Q15M PRN IV DECREASED GLUCOSE; Start 11/16/16 at 11:30 Glucagon (Glucagen) 1 mg Q15M PRN IM DECREASED GLUCOSE; Start 11/16/16 at 11:30 Glucose (Glutose) 15 gm Q15M PRN BUCCAL DECREASED GLUCOSE; Start 11/16/16 at 11 :30 Collagenase (Santyl) 1 applic DAILY TOP Last administered on 11/23/16 08:47; Admin Dose 1 APPLIC; Start 11/17/16 at 09:00 Insulin Aspart (Novolog Insulin Pen) NOVOLOG *MODERATE* ALGORITHM Q6 SC Last administered on 11/24/16 05:55; Admin Dose 3 UNIT; Start 11/17/16 at 00:00 Diphenhydramine HCl (Benadryl) 50 mg Q6H PRN IV ALLERGIC REACTION Last administered on 11/17/16 22:51; Admin Dose 50 MG; Start 11/17/16 at 16:30 Famotidine (Pepcid Iv) 20 mg BID IV Last administered on 11/23/16 21:24; Admin Dose 20 MG; Start 11/17/16 at 21:00 Magnesium Hydroxide (Milk Of Mag) 30 ml DAILY PRN PO CONSTIPATION Last administered on 11/19/16 12:41; Admin Dose 30 ML; Start 11/18/16 at 00:30 Ibuprofen (Motrin) 600 mg Q6H PRN PO PAIN OR TEMP ABOVE 38C Last administered on 11/23/16 18:18; Admin Dose 600 MG; Start 11/20/16 at 13:00 Linezolid 600 mg 600 mg BID PO Last administered on 11/23/16 21:25; Admin Dose 600 MG; Start 11/20/16 at 21:00 Colistimethate Sodium/Sodium Chloride (Coly-Mycin/NS) 100 ml @ 200 mls/hr Q12 IVPB Last administered on 11/23/16 21:47; Admin Dose 200 MLS/HR; Start at 12:30 Lactulose (Enulose) 20 gm Q8 PO Last administered on 11/24/16 05:46; Admin Dose 20 GM; Start 11/22/16 at 16:30; Stop 11/24/16 at 16:29 Polyethylene Glycol (Miralax) 17 gm DAILY NGT Last administered on 11/23/16 08 :46; Admin Dose 17 GM; Start 11/23/16 at 09:00 Heparin Sodium (Porcine) (Heparin (5000 Units/0.5 ml)) 5,000 unit BID SC Last administered on 11/23/16 22:15; Admin Dose 5,000 UNIT; Start 11/22/16 at 21:00 Metronidazole (Flagyl) 500 mg Q8 PO Last administered on 11/24/16 05:46; Admin Dose 500 MG; Start 11/23/16 at 14:00 Fluconazole (Diflucan) 100 mg DAILY GTB Last administered on 11/23/16t 14:13; Admin Dose 100 MG; Start 11/23/16 at 14:00 Insulin Glargine (Lantus) 25 unit DAILY@08 SC Last administered on 11/24/16 09 :01; Admin Dose 25 UNIT; Start 11/24/16 at 08:00 Diltiazem HCl (Cardizem Iv) 10 mg ONCE ONCE IV ; Start 11/24/16 at 10:00; Stop 11/24/16 at 10:01; Status UNV Sodium Chloride 250 ml 250 ml ONCE ONCE IV* ; Start 11/24/16 at 10:00; Stop at 10:01; Status UNV Dextrose (D5W) 1,000 ml @ 70 mls/hr [id number] IV ; Start 11/24/16 at 10:00; Status UNV Insulin Human Regular (Humulin R) 5 unit ONCE ONCE SC ; Start 11/24/16 at 10:00 ; Stop 11/24/16 at 10:01; Status UNV DIVINE PERKINS Nov 24, 2016 09:50
[2016-11-24] MEDS ORDERED: SODIUM CHLORIDE 0.45% 500 ML BAG IV* ONE (10:00)
[2016-11-24] MEDS ORDERED: INSULIN ASPART [NOVOLOG] 3 ML PEN IV SCH (10:00)
[2016-11-24] MEDS ORDERED: DILTIAZEM 25 MG INJ IV ONE (10:00)
[2016-11-24] MEDS ORDERED: INSULIN REGULAR, HUMAN 100 UNIT/1 ML 3ML VIAL SC ONE (10:00)
[2016-11-24] MEDS ORDERED: SOD CHLORIDE 0.9% 500 ML IV ONE (10:00)
[2016-11-24 10:19] LABS: AADO2 Arterial 92.5 mmHg (7.0-24.0); Allen Test ACCEPTAB; Arterial Base Excess -2.7 mmol/L (-3.0-3); Arterial COHb 0.4 % (0.0-3.0); Arterial Fraction of Oxyhgb 94.8 % (93.0-99.0); Arterial HCO3 22.8 mmol/L (22.0-26.0); Arterial MetHb 0.3 % (0.0-1.5); Arterial Total Hemglobin 13.4 g/dl (12.0-18.0); MODE VENT - AC
[2016-11-24 10:44] LABS: CREATINE KINASE < 20 IU/L (23-200)
[2016-11-24 10:46] LABS: CK-MB 0.29 ng/ml (0.0-2.4)
[2016-11-24] MEDS: POLYETHYLENE GLYCOL 17 GM PACKET NGT SCH (10:50)
[2016-11-24] MEDS: BACLOFEN 10 MG TAB GTB SCH ×3 (10:50→21:33)
[2016-11-24] MEDS: ZYVOX 600 MG TAB PO SCH ×2 (10:50→21:33)
[2016-11-24] MEDS: MAGNESIUM OXIDE 400 MG TAB GTB SCH ×2 (10:50→21:33)
[2016-11-24] MEDS: FAMOTIDINE 20 MG INJ IV SCH ×2 (10:50→21:33)
[2016-11-24] MEDS: METOPROLOL 25 MG TAB GTB SCH (10:50)
[2016-11-24] MEDS: FLUCONAZOLE 100 MG TAB GTB SCH (10:50)
[2016-11-24 10:52] LABS: TROPONIN-I < 0.010 ng/ml (0.00-0.12)
[2016-11-24] MEDS: HEPARIN 5,000 UNIT/0.5 ML SYG SC SCH ×2 (10:55→22:34)
[2016-11-24] MEDS ORDERED: MINERAL OIL 133 ML ENEMA PR SCH (11:00)
[2016-11-24] MEDS: COLLAGENASE 30 GM TUBE TOP SCH (11:00)
[2016-11-24] MEDS: DEXTROSE 5% 1,000 ML IV SCH (11:01)
--- NOTE | 2016-11-24 11:04 | RADRPT ---
PROCEDURE: Chest Radiograph. CLINICAL INDICATION: Respiratory distress TECHNIQUE: Single frontal chest radiograph. COMPARISON: Chest radiograph 11/20/2016 FINDINGS: A tracheostomy tube and right upper extremity PICC remain in stable and radiographically appropriate position. Cardiomediastinal silhouette is within normal limits. There has been interval resolutio n of left basilar consolidation/atelectasis. The lungs are clear. No infiltrate or effusion is seen . The bones are intact. IMPRESSION: 1. No evidence of acute cardiopulmonary disease. RPTAT: AA .Noe Beckman MD, MD Date Time Electronically viewed and signed by .Noe Beckman MD, MD on 11/24/2016 11:04 .B/
--- NOTE | 2016-11-24 11:17 | CONS ---
Date/Time of Note Date/Time of Note DATE: 11/24/16 TIME: 11:14 Assessment/Plan Assessment/Plan Chief Complaint/Hosp Course Patient is a 56-year-old lady who was admitted for treatment of sepsis as well as anemia. Pulmonary consultation obtained for management of respiratory failure. Patient on mechanical ventilation chronically due to underlying severe multiple sclerosis. History present illness; 6-year-old lady admitted for treatment of severe sepsis as well as anemia. She was obtained from medical records as the patient is unable to give any history whatsoever by herself. The time I saw the patient the patient is on mechanical ventilation via tracheostomy patient is unresponsive. Patient on medical records, the patient has remained hemodynamically stable. Past medical history; 1. History of severe multiple sclerosis ventilator dependent. 2. History of multiple episodes of UTI. 3. Status post G-tube and tracheostomy. 4. Decubitus ulcers. Next Medications; were reviewed. Allergies; are to cephalosporins, penicillins, Levaquin and vancomycin. Social history; noncontributory. Family history; not available. Occupational history; patient is disabled. Review of systems; currently unable to be obtained. General examination; middle aged woman, on ventilator via tracheostomy unresponsive. Currently in no distress. Problems: Additional Assessment/Plan Ventilator settings; our assist-control of 14, tidal volume 450, PEEP of 5, 30% FiO2. Assessment and recommendations; 1. Patient with chronic respiratory failure due to advanced multiple sclerosis. With very poor mental status. 2. UTI and sacral decubitus ulcer. Patient currently on appropriate antibiotic regimen. 3. Episode of shortness of breath early this morning with interval resolution. Chest x-ray is totally clear done a short while ago. 4. History of muscle spasms. Continue current supportive care. Consultation Date/Type/Reason Admit Date/Time Nov 15, 2016 at 22:42 Initial Consult Date 11/18/16 Type of Consultation: Pulmonary 24 HR Interval Summary Free Text/Dictation Patient condition is stable now. A short while ago the patient did develop tachypnea. A stat chest x-ray was done which is essentially unremarkable. The patient since then has settled down. Meds unresponsive. General examination; young lady, on ventilator via tracheostomy. Currently in no distress. Patient is not arousable. This is her underlying mental status. Exam/Review of Systems Vital Signs Vitals Vital Signs Date Time Temp Pulse Resp B/P Pulse Ox O2 Delivery O2 Flow Rate FiO2 11/24/16 08:23 139 11/24/16 06:50 98.5 18 112/88 97 11/24/16 05:40 30 11/24/16 00:00 Mechanical Ventilator Intake and Output 11/23/16 11/23/16 11/24/16 14:59 22:59 06:59 Intake Total 100 ml 1160 ml 1050 ml Output Total 1000 ml 400 ml Balance 100 ml 160 ml 650 ml Exam HEENT examination; supple neck, no JVD. No lymphadenopathy. Midline trachea. Tracheostomy in place with clean insertion site. Chest examination; diminished but clear breath sounds bilaterally. S1-S2 audible, no murmurs. Regular rhythm. Abdomen examination; soft, G-tube in place. No organomegaly. Bowel sounds audible. Back examination; there is a dressing applied over the sacral area. Extremity examination; no peripheral edema. 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 Results Result Diagram: 11/24/16 0620 11/24/16 0620 Results 24 hrs Laboratory Tests Test 11/23/16 11:56 11/23/16 17:31 11/24/16 00:43 11/24/16 05:37 Bedside Glucose 267 H 262 H 276 H 295 H Test 11/24/16 06:20 11/24/16 08:55 11/24/16 09:38 11/24/16 10:17 Albumin 3.7 Anion Gap 23 H Basophils # 0.0 Basophils % 0.4 Blood Urea Nitrogen 35 #H Calcium Level 9.6 Carbon Dioxide Level 23 Chloride Level 114 H Creatinine 1.02 H Eosinophils # 0.2 Eosinophils % 3.4 Glucose Level 307 H Hematocrit 35.3 L Hemoglobin 10.7 L Lymphocytes # 0.8 Lymphocytes % 11.4 L Mean Corpuscular Hemoglobin 28.2 L Mean Corpuscular Hemoglobin Concent 30.3 L Mean Corpuscular Volume 92.9 Mean Platelet Volume 11.0 #H Monocytes # 0.4 Monocytes % 5.3 Neutrophils # 5.3 Neutrophils % 79.1 H Nucleated Red Blood Cells # 0.0 Nucleated Red Blood Cells % 0.0 Phosphorus Level 3.2 Platelet Count 315 Potassium Level 4.0 Red Blood Count 3.80 L Red Cell Distribution Width 17.3 H Sodium Level 156 H White Blood Count 6.7 Bedside Glucose 273 H Arterial Blood HCO3 22.8 Arterial Blood Base Excess -2.7 Arterial Blood Oxygen Saturation 95.5 Tristian Test ACCEPTAB Arterial Blood Gas Puncture Site Right Radial Arterial Blood Carboxyhemoglobin 0.4 Arterial Blood Date Drawn 11/24/2016 10:06:24 AM Arterial Blood Methemoglobin 0.3 Arterial Blood pCO2 (Temp correct) 42.1 Arterial Blood pH (Temp corrected) 7.352 Arterial Blood pO2 (Temp corrected) 71.9 L Blood Gas A-a O2 Differential 92.5 H Blood Gas Actual Respiration Rate 23 Blood Gas Low PEEP Setting 5.0 Blood Gas Modality VENT - AC Blood Gas Notified Time 11/24/2016 10:19:08 AM Blood Gas Notified Whom JLD Blood Gas Respiration Rate 16.0 Blood Gas Specimen Source Blood arterial Blood Gas Temperature 37.0 Blood Gas Tidal Volume 450.0 FiO2 30.0 Oxyhemoglobin Percent 94.8 Total Hemoglobin 13.4 Creatine Kinase < 20 L Creatine Kinase Index Creatinine Kinase MB (Mass) 0.29 Troponin I < 0.010 Medications Medications Current Medications Ondansetron HCl (Zofran Inj) 4 mg Q6H PRN IV NAUSEA AND/OR VOMITING; Start at 01:30 Acetaminophen (Tylenol Liquid) 650 mg Q6H PRN GTB ELEVATED TEMPERATURE Last administered on 11/23/16 18:18; Admin Dose 650 MG; Start 11/16/16 at 01:30 Baclofen (Lioresal) 20 mg TID GTB Last administered on 11/24/16 10:50; Admin Dose 20 MG; Start 11/16/16 at 09:00 Magnesium Oxide (Mag-Ox 400) 400 mg BID GTB Last administered on 11/24/16 10: 50; Admin Dose 400 MG; Start 11/16/16 at 09:00 Metoprolol Tartrate (Lopressor) 25 mg BID GTB Last administered on 11/24/16 10 :50; Admin Dose 25 MG; Start 11/16/16 at 09:00 Lansoprazole (Prevacid) 30 mg DAILY@06 GTB Last administered on 11/23/16 05:33 ; Admin Dose 30 MG; Start 11/16/16 at 06:00; Status Future Hold Simethicone (Mylicon) 160 mg DAILY PRN GTB DISTENSION/GAS/BLOATING Last administered on 11/18/16 12:30; Admin Dose 160 MG; Start 11/16/16 at 01:30 Zinc Sulfate (Zinc Sulfate) 220 mg DAILY GTB Last administered on 11/23/16 08: 47; Admin Dose 220 MG; Start 11/16/16 at 09:00 Diphenhydramine HCl (Benadryl Liquid Cup) 25 mg Q6H PRN GTB ITCHING; Start at 02:00 Clonidine (Catapres) 0.1 mg Q6H PRN GTB SBP >160; Start 11/16/16 at 02:06 Miscellaneous Information 1 ea NOTE XX ; Start 11/16/16 at 11:30 Glucose (Glutose) 15 gm Q15M PRN PO DECREASED GLUCOSE; Start 11/16/16 at 11:30 Glucose (Glutose) 22.5 gm Q15M PRN PO DECREASED GLUCOSE; Start 11/16/16 at 11: 30 Dextrose (D50w Syringe) 25 ml Q15M PRN IV DECREASED GLUCOSE; Start 11/16/16 at 11:30 Dextrose (D50w Syringe) 50 ml Q15M PRN IV DECREASED GLUCOSE; Start 11/16/16 at 11:30 Glucagon (Glucagen) 1 mg Q15M PRN IM DECREASED GLUCOSE; Start 11/16/16 at 11:30 Glucose (Glutose) 15 gm Q15M PRN BUCCAL DECREASED GLUCOSE; Start 11/16/16 at 11 :30 Collagenase (Santyl) 1 applic DAILY TOP Last administered on 11/23/16 08:47; Admin Dose 1 APPLIC; Start 11/17/16 at 09:00 Insulin Aspart (Novolog Insulin Pen) NOVOLOG *MODERATE* ALGORITHM Q6 SC Last administered on 11/24/16 05:55; Admin Dose 3 UNIT; Start 11/17/16 at 00:00 Diphenhydramine HCl (Benadryl) 50 mg Q6H PRN IV ALLERGIC REACTION Last administered on 11/17/16 22:51; Admin Dose 50 MG; Start 11/17/16 at 16:30 Famotidine (Pepcid Iv) 20 mg BID IV Last administered on 11/24/16 10:50; Admin Dose 20 MG; Start 11/17/16 at 21:00 Magnesium Hydroxide (Milk Of Mag) 30 ml DAILY PRN PO CONSTIPATION Last administered on 11/19/16 12:41; Admin Dose 30 ML; Start 11/18/16 at 00:30 Ibuprofen (Motrin) 600 mg Q6H PRN PO PAIN OR TEMP ABOVE 38C Last administered on 11/23/16 18:18; Admin Dose 600 MG; Start 11/20/16 at 13:00 Linezolid 600 mg 600 mg BID PO Last administered on 11/24/16 10:50; Admin Dose 600 MG; Start 11/20/16 at 21:00 Colistimethate Sodium/Sodium Chloride (Coly-Mycin/NS) 100 ml @ 200 mls/hr Q12 IVPB Last administered on 11/23/16 21:47; Admin Dose 200 MLS/HR; Start at 12:30 Lactulose (Enulose) 20 gm Q8 PO Last administered on 11/24/16 05:46; Admin Dose 20 GM; Start 11/22/16 at 16:30; Stop 11/24/16 at 16:29 Polyethylene Glycol (Miralax) 17 gm DAILY NGT Last administered on 11/24/16 10 :50; Admin Dose 17 GM; Start 11/23/16 at 09:00 Heparin Sodium (Porcine) (Heparin (5000 Units/0.5 ml)) 5,000 unit BID SC Last administered on 11/24/16 10:55; Admin Dose 5,000 UNIT; Start 11/22/16 at 21:00 Metronidazole (Flagyl) 500 mg Q8 PO Last administered on 11/24/16 05:46; Admin Dose 500 MG; Start 11/23/16 at 14:00 Fluconazole (Diflucan) 100 mg DAILY GTB Last administered on 11/24/16 10:50; Admin Dose 100 MG; Start 11/23/16 at 14:00 Insulin Glargine 25 unit 25 unit DAILY@08 SC Last administered on 11/24/16 09: 01; Admin Dose 25 UNIT; Start 11/24/16 at 08:00 Dextrose (D5W) 1,000 ml @ 70 mls/hr [id number] IV ; Start 11/24/16 at 10:00 Lactulose (Enulose) 20 gm Q6 GTB ; Start 11/24/16 at 12:00 Metoclopramide HCl (Reglan) 5 mg Q6 IV ; Start 11/24/16 at 12:00; Stop 11/26/16 at 11:59 ARYAN COLLADO Nov 24, 2016 11:17
[2016-11-24 11:28] LABS: MAGNESIUM 3.4 mg/dl (1.7-2.5); PHOSPHORUS 2.6 mg/dl (2.5-4.9)
[2016-11-24] MEDS: METOCLOPRAMIDE 10 MG INJ IV SCH ×2 (12:22→18:36)
[2016-11-24] MEDS: LACTULOSE 30ML CUP GTB SCH ×2 (12:22→18:36)
[2016-11-24] MEDS: COLISTIMETHATE 75 MG in SOD CHLORIDE 0.9% 100 ML IVPB SCH ×2 (12:45→21:56)
[2016-11-24] MEDS ORDERED: METOPROLOL 5 MG INJ IV PRN (13:30)
--- NOTE | 2016-11-24 14:11 | CONS ---
DATE OF ADMISSION: 11/15/2016 DATE OF CONSULTATION: 11/24/2016 TYPE OF CONSULTATION: Cardiology. REASON FOR CONSULTATION: Tachyarrhythmia. REQUESTING PHYSICIAN: Dr. Perkins from the hospitalist service. HISTORY OF PRESENT ILLNESS: Ms. Pollard is a 56-year-old female with a history of multiple scle rosis, vent dependent respiratory failure, bedbound, multiple pressure ulcers, ESBL urinary tract in fection, pseudomonas infection who was initially transferred from her chronic care facility for [facility]. The patient's hospital course has been notable for treatment for sepsis with recurrent fevers, severe constipation with impacted stool with ongoing thoughts for palliative carrier evaluation, who most recently has on telemetry noted to have episodes of tachyarrhythmias from the 140s to 150s. Gi angy these high readings cardiology was subsequently requested. PAST MEDICAL HISTORY: As above in HPI. MEDICATIONS CURRENTLY IN HOSPITAL: 1. Diltiazem 30 mg p.o. every 8. 2. Lactulose 20 grams q.6h. 3. Reglan 5 mg IV q.6h. 4. IV D5 fluids at 70 mL an hour. 5. Lantus. 6. Flagyl 500 mg q.8h. 7. Fluconazole 100 mg every 8. 8. MiraLax. 9. Heparin 5000 subq b.i.d. 10. Lactulose. 11. Linezolid 600 mg b.i.d. 12. Ibuprofen p.r.n. 13. Albuterol p.r.n. 14. Benadryl p.r.n. 15. Insulin sliding scale. 16. Mag oxide 400 mg b.i.d. 17. Zinc sulfate. 18. Clonidine p.r.n. 19. Diphenhydramine p.r.n. 20. Zofran p.r.n. 21. Tylenol p.r.n. ALLERGIES: 1. CEPHALOSPORINS. 2. PENICILLIN. 3. LEVOFLOXACIN. 4. VANCOMYCIN. SOCIAL HISTORY: No tobacco, ETOH or illicit drug use. FAMILY HISTORY: No history of sudden cardiac or early CAD. REVIEW OF SYSTEMS: As above in HPI. CONSTITUTIONAL: Positive fevers. PULMONARY: Respiratory failure, chronic status post trach. GASTROINTESTINAL: Dysphagia, status post G-tube. GENITOURINARY: History of urinary tract infection, ESBL. NEUROLOGICAL: History of CVA, history of encephalopathy, history of multiple sclerosis. INFECTIOUS DISEASE: Urinary tract infection and possible pneumonia. PHYSICAL EXAMINATION: VITAL SIGNS: Temperature of 2.91, T max 101.9. GENERAL: The patient is encephalopathic, nonresponsive. NECK: Tracheostomy in place. CHEST: Upper airway sounds are rhonchorous sounds. HEART: Tachycardic, regular rhythm, normal S1, increased S2, 1/6 systolic murmur, nondisplaced PMI. ABDOMEN: Distended. Positive bowel sounds. EXTREMITIES: No pitting edema, 1+ pulses bilaterally, posterior tibial pulses. LABORATORIES: As above in HPI, with most recent from today, white count 6.7, hemoglobin 10.7, plate let count of 315. Sodium 156, potassium 4.0, creatinine 1.0, BUN 35. Magnesium 3.4. Troponin nega tive x2, TSH suppressed at 0.096 from the . EKG reveals from the showed sinus tachycardia at a rate of 143 with normal axis, normal interva ls, with nonspecific ST-T abnormalities diffusely. IMPRESSION: 1. Tachyarrhythmia with telemetry, most consistent with sinus tachycardia at this time, but will co ntinue to assess for true SVT given high rapid rate. 2. Abnormal electrocardiogram, assess for acute coronary syndrome. 3. Hypertension under reasonable control. 4. Vent dependent respiratory failure. 5. Extended-spectrum beta-lactamase urinary tract infection. 6. Diabetes mellitus. 7. Anemia. 8. Sacral ulcer. 9 Hypernatremia. 10. Constipation. 11. Possible hyperthyroid state by labs RECOMMENDATIONS: 1. At this time would maintain the patient on telemetry monitoring to follow rhythm and rate control closely. 2. Continue the patient's current diltiazem and will add beta priyank to suppress the patient's kylah oing bouts of tachyarrhythmia. 3. Continue the patient's IV fluid hydration and free water for elevated sodium. 4. Would check a T4 to further assess the patient's current thyroid state with probable need for tr eatment of hypothyroidism Tapazole. 5. Continue the patient's antibiotics and follow up all culture data and aggressively treat fevers. 6. Check a 2D echocardiogram to further assess patient's ejection fraction, wall motion and any anthony or abnormalities may be associated with the patient's tachyarrhythmias. Thank you for allowing me to take part in the care of this patient. I will continue to follow very closely with you with further recommendations to be made as the patient progresses through her [facility] clinical course. Dictated By: SOFIE SMART/HERI Conf#: [id number] DID#: [id number] CC: DIVINE PERKINS MD;*EndCC*
--- NOTE | 2016-11-24 14:26 | PN ---
DATE: 11/24/2016 INFECTIOUS DISEASE PROGRESS NOTE SUBJECTIVE: No acute changes. The patient is lying comfortably in bed. No fevers overnight. WBC 6.7, neutrophils 79.1. BUN 35, creatinine 1.02. DIAGNOSTICS: Chest x-ray revealed no evidence of acute cardiopulmonary disease. ANTIMICROBIALS: 1. Patient is on IV Colistin. 2. Tobramycin inhalation. 3. Flagyl. 4. Fluconazole. 5. Zyvox. PHYSICAL EXAMINATION: GENERAL: Chronically ill-appearing, middle-aged woman who is lying comfortably in bed. HEENT: Head atraumatic, normocephalic. Sclerae anicteric. Buccal mucosa dry. NECK: Supple. Tracheostomy present. CHEST: Rise symmetrical. Breath sounds diminished to bases. HEART: S1, S2. ABDOMEN: Soft, distended. Bowel tones present. Wasted, contractured with multiple pressure sores. ASSESSMENT: 1. Sepsis with ongoing fevers, multifactorial. 2. Polymicrobial multidrug resistant urinary tract infection. 3. Multiple decubitus. 4. Chronic kidney stones without evidence of obstruction per ultrasound. 5. Functional quadriplegia secondary to advanced multiple sclerosis. 6. Chronic respiratory failure. PLAN: The patient remains stable, covered with broad spectrum antibiotics. She is being followed by pulmonary team. Her blood cultures have been negative. Patient is going to be given enema today secondary to fecal impaction, consider surgical eval of her wounds. Dictated By: FLEX DENNISON [facility] COACH for CRISTINA WHITFIELD/NTS Conf#: [id number] DID#: [id number] [facility]
[2016-11-24] MEDS: METOPROLOL 25 MG TAB PO SCH ×2 (14:36→21:00)
[2016-11-24] MEDS: DILTIAZEM 30 MG TAB PEG SCH ×2 (14:37→22:00)
[2016-11-24 17:46] LABS: CREATINE KINASE 36 IU/L (23-200)
[2016-11-24 18:09] LABS: CK-MB < 0.22 ng/ml (0.0-2.4); TROPONIN-I < 0.010 ng/ml (0.00-0.12)
[2016-11-24] MEDS ORDERED: ZINC OXIDE 13% (DESITIN) CREAM 2 OZ TUBE TOP PRN (20:00)
[2016-11-24] MEDS: ACETAMINOPHEN 650MG/20.3ML CUP GTB PRN (21:56)
[2016-11-24] MEDS: IBUPROFEN 600 MG TAB PO PRN (22:26)
[2016-11-24 22:36] LABS: CREATINE KINASE 52 IU/L (23-200)
[2016-11-24 22:49] LABS: CK-MB < 0.22 ng/ml (0.0-2.4); TROPONIN-I < 0.010 ng/ml (0.00-0.12)
--- NOTE | 2016-11-24 22:57 | RADRPT ---
Echocardiogram Report Patient Name: MALLIKA CID Gender: Female Date: 1960 Study Date: 24-Nov-2016 Mobile Product Manager: Eamon Cedillo [facility] Location: 529 Ref. Physician: DIVINE PERKINS Quality: Technically Difficult Study Procedures: Transthoracic echocardiogram with complete 2D, M-Mode, and doppler examination. Indications: Tachycardia. 2D/M Mode Doppler Measurement Value Normal Ranges Measurement Value Normal Ranges LVIDd 2D 4.5 3.5 - 5.6 cm AV Peak Alvaro 1.1 m/sec LVIDs 2D 2.9 2.1 - 4.1 cm AV Peak PG 5.0 mmHg FS 2D 35.7 % LVOT Peak Alvaro 0.9 m/sec LVPWd 2D 0.9 0.6 - 1.1 cm LVOT Peak PG 3.0 mmHg IVSd 2D 0.9 0.6 - 1.1 cm IVS/LVPW 2D 1.1 AoR Diam 2D 2.8 2.0 - 3.7 cm LA/Ao 2D 1 0 - 1 EDV 2D 91.7 cm3 ESV 2D 24.4 cm3 LA Dimen 2D 2.5 2.3 - 4.0 cm Findings Left Ventricle: Normal left ventricular systolic function. Normal left ventricular cavity size. Normal left ventricular wall thickness. Ejection fraction is visually estimated at 55 %. Tissue Doppler/Mitral Doppler indices are consistent with impaired relaxation (Stage I diastolic dysfunction). Right Ventricle: Normal right ventricular size. Normal right ventricular systolic function. Left Atrium: The left atrium is normal in size. Right Atrium: The right atrium is normal in size. Mitral Valve: Mitral valve leaflets appear mildly thickened. Mild mitral annular calcification. Trace mitral regurgitation. Aortic Valve: No significant aortic stenosis or insufficiency. Aortic valve not well visualized. Tricuspid Valve: Tricuspid valve not well visualized. Unable to obtain RVSP due to minimal presence of tricuspid regurgitation. Pulmonic Valve: Pulmonic valve not well visualized. Pericardium: Normal pericardium with no significant pericardial effusion. Aorta: Normal aortic root. IVC: Inferior vena cava without respiratory collapse, however, patient on ventilator. Conclusions 1.Normal left ventricular systolic function. Normal left ventricular cavity size. Normal left ventricular wall thickness. Ejection fraction is visually estimated at 55 %. Tissue Doppler/Mitral Doppler indices are consistent with impaired relaxation (Stage I diastolic dysfunction). 2.Mitral valve leaflets appear mildly thickened. Mild mitral annular calcification. Trace mitral regurgitation. 3.Tricuspid valve not well visualized. Unable to obtain RVSP due to minimal presence of tricuspid regurgitation. Electronically Signed By: Wei De La Torre 24-Nov-2016 22:56:39 -0800 Patient Name: MALLIKA CID Study Date: 24-Nov-2016 [id number]
[2016-11-25] VITALS (26 sets, daily range): BP systolic 81–130; BP diastolic 53–80; PULSE 71–111; RESP 15–22
[2016-11-25] MEDS: LACTULOSE 30ML CUP GTB SCH ×5 (00:39→23:52)
[2016-11-25] MEDS: METOCLOPRAMIDE 10 MG INJ IV SCH ×5 (00:39→23:04)
[2016-11-25] MEDS: DEXTROSE 5% 1,000 ML IV SCH ×3 (00:40→23:04)
[2016-11-25] MEDS: INSULIN ASPART [NOVOLOG] 3 ML PEN SC SCH ×7 (00:50→23:56)
[2016-11-25] MEDS: DILTIAZEM 30 MG TAB PEG SCH ×4 (02:33→21:01)
[2016-11-25] MEDS ORDERED: DEXTROSE 5% WATER 500 ML BAG IV ONE (06:00)
[2016-11-25 06:11] LABS: ADD SCAN DIFF NO
[2016-11-25] MEDS: metroNIDAZOLE 500 MG TAB PO SCH ×3 (06:13→21:01)
[2016-11-25] MEDS: ACETAMINOPHEN 650MG/20.3ML CUP GTB PRN (06:18)
[2016-11-25 06:31] LABS: POTASSIUM 3.6 mmol/L (3.5-5.1)
[2016-11-25 06:34] LABS: CREATININE 1.98 mg/dl (0.44-1.00)
[2016-11-25 06:35] LABS: CALCIUM 9.3 mg/dl (8.4-10.2)
[2016-11-25 06:42] LABS: BASOPHILS % 0.2 % (0.0-2.0); EOSINOPHILS # 0.2 10^3/ul (0.0-0.5); EOSINOPHILS % 3.4 % (0.0-7.0); HEMATOCRIT 29.7 % (37.0-47.0); HEMOGLOBIN 8.9 g/dl (12.0-16.0); LYMPHOCYTES # 1.6 10^3/ul (0.8-2.9); LYMPHOCYTES % 24.9 % (15.0-51.0); MEAN CORPUSCULAR HEMOGLOBIN 27.6 pg (29.0-33.0); MEAN CORPUSCULAR VOLUME 92.2 fl (82.0-101.0); MEAN PLATELET VOLUME 11.4 fl (7.4-10.4); MONOCYTE # 0.4 10^3/ul (0.3-0.9); MONOCYTES % 5.9 % (0.0-11.0); NEUTROPHIL # 4.1 10^3/ul (1.6-7.5); NEUTROPHILS % 64.8 % (39.0-77.0); PLATELET COUNT 257 10^3/UL (140-415); RED BLOOD COUNT 3.22 10^6/ul (4.20-5.40); RED CELL DISTRIBUTION WIDTH 17.3 % (11.5-14.5); WHITE BLOOD COUNT 6.3 10^3/ul (4.8-10.8)
[2016-11-25] MEDS: TOBRAMYCIN/0.25NS 300 MG/5 ML INHAL NEB SCH ×2 (08:05→20:29)
[2016-11-25] MEDS: POLYETHYLENE GLYCOL 17 GM PACKET NGT SCH (08:16)
[2016-11-25] MEDS: MAGNESIUM OXIDE 400 MG TAB GTB SCH ×2 (08:17→21:01)
[2016-11-25] MEDS: FLUCONAZOLE 100 MG TAB GTB SCH (08:17)
[2016-11-25] MEDS: ZINC SULFATE 220 MG CAP GTB SCH (08:17)
[2016-11-25] MEDS: FAMOTIDINE 20 MG INJ IV SCH (08:17)
[2016-11-25] MEDS: METOPROLOL 25 MG TAB PO SCH ×2 (08:17→21:00)
[2016-11-25] MEDS: ZYVOX 600 MG TAB PO SCH ×2 (08:17→21:02)
[2016-11-25] MEDS: BACLOFEN 10 MG TAB GTB SCH ×3 (08:17→21:02)
[2016-11-25] MEDS: COLLAGENASE 30 GM TUBE TOP SCH (08:18)
[2016-11-25] MEDS: INSULIN GLARGINE [LANtus] 3 ML PEN SC SCH (08:19)
[2016-11-25] MEDS: HEPARIN 5,000 UNIT/0.5 ML SYG SC SCH ×2 (08:19→21:19)
[2016-11-25] MEDS: COLISTIMETHATE 75 MG in SOD CHLORIDE 0.9% 100 ML IVPB SCH (08:25)
--- NOTE | 2016-11-25 12:50 | CONS ---
Date/Time of Note Date/Time of Note DATE: 11/25/16 TIME: 12:47 Assessment/Plan Assessment/Plan Additional Assessment/Plan 1. Tachyarrhythmia with telemetry, most consistent with sinus tachycardia at this time, but will continue to assess for true SVT given high rapid rate- SINUS rhythm at 60s now, will monitor clinically. 2. Abnormal electrocardiogram, assess for acute coronary syndrome- no CP now, con't med Rx. 3. Hypertension under reasonable control- med Rx in place. 4. Vent dependent respiratory failure.- satble, con't resp RX 5. Extended-spectrum beta-lactamase urinary tract infection- on anti-Bx, ID follows 6. Diabetes mellitus. 7. Anemia - H/H stable, no bleeding noted 8. Sacral ulcer. 9 Hypernatremia. 10. Constipation. 11. Possible hyperthyroid state by labs Consultation Date/Type/Reason Admit Date/Time Nov 15, 2016 at 22:42 Initial Consult Date 11/18/16 Type of Consultation: Pulmonary 24 HR Interval Summary Free Text/Dictation No new episodes of arrhythmia - sinus rhythm, now. No CP noted. ROS: No fever, no chills, no nausea, no vomiting, no diarrhea/constipation No recent weight changes No chest pain, no PND, no orthopnea No dizziness, blurred vision No thirst, no heat or cold intolerance (SOB chronic) Exam/Review of Systems Vital Signs Vitals Vital Signs Date Time Temp Pulse Resp B/P Pulse Ox O2 Delivery O2 Flow Rate FiO2 11/25/16 12:17 75 11/25/16 11:50 19 100 30 11/25/16 10:58 98.2 111/65 11/24/16 21:00 Mechanical Ventilator Intake and Output 11/24/16 11/24/16 11/25/16 15:00 23:00 07:00 Intake Total 100 ml 900 ml 880 ml Output Total 2900 ml 50 ml Balance 100 ml -2000 ml 830 ml Exam General: WN/WD/NAD, AOx 1-2 HEENT: Unicetric/atraumatic/EOMI (does not follow commands) NECK: JVD elevated, no thyromegaly, trach in place Lymph: no lymphadenopathy HEART: regular with no S3, II/ systolic murmur at apex LUNGS: Coarse sounds ABD: soft, NT, ND, +BS : Intact Neuro: non focal SKIN: chronic changes EXT: trace edema Results Result Diagram: 11/25/16 0550 11/25/16 0550 Results 24 hrs Laboratory Tests Test 11/24/16 16:33 11/24/16 18:27 11/24/16 21:45 11/25/16 00:43 Creatine Kinase 36 52 Creatine Kinase Index 0.6 0.4 Creatinine Kinase MB (Mass) < 0.22 < 0.22 Troponin I < 0.010 < 0.010 Bedside Glucose 213 208 Test 11/25/16 05:50 11/25/16 06:02 11/25/16 07:47 Anion Gap 20 H Basophils # 0.0 Basophils % 0.2 Blood Urea Nitrogen 46 #H Calcium Level 9.3 Carbon Dioxide Level 24 Chloride Level 110 Creatinine 1.98 H Eosinophils # 0.2 Eosinophils % 3.4 Glucose Level 209 Hematocrit 29.7 L Hemoglobin 8.9 L Lymphocytes # 1.6 Lymphocytes % 24.9 Mean Corpuscular Hemoglobin 27.6 L Mean Corpuscular Hemoglobin Concent 30.0 L Mean Corpuscular Volume 92.2 Mean Platelet Volume 11.4 H Monocytes # 0.4 Monocytes % 5.9 Neutrophils # 4.1 Neutrophils % 64.8 Nucleated Red Blood Cells # 0.0 Nucleated Red Blood Cells % 0.0 Platelet Count 257 Potassium Level 3.6 Red Blood Count 3.22 L Red Cell Distribution Width 17.3 H Sodium Level 150 H White Blood Count 6.3 Bedside Glucose 203 299 H Medications Medications Current Medications Ondansetron HCl (Zofran Inj) 4 mg Q6H PRN IV NAUSEA AND/OR VOMITING; Start at 01:30 Acetaminophen (Tylenol Liquid) 650 mg Q6H PRN GTB ELEVATED TEMPERATURE Last administered on 11/25/16 06:18; Admin Dose 650 MG; Start 11/16/16 at 01:30 Baclofen (Lioresal) 20 mg TID GTB Last administered on 11/25/16 08:17; Admin Dose 20 MG; Start 11/16/16 at 09:00 Magnesium Oxide (Mag-Ox 400) 400 mg BID GTB Last administered on 11/25/16 08: 17; Admin Dose 400 MG; Start 11/16/16 at 09:00 Lansoprazole (Prevacid) 30 mg DAILY@06 GTB Last administered on 11/23/16 05:33 ; Admin Dose 30 MG; Start 11/16/16 at 06:00; Status Future Hold Simethicone (Mylicon) 160 mg DAILY PRN GTB DISTENSION/GAS/BLOATING Last administered on 11/18/16 12:30; Admin Dose 160 MG; Start 11/16/16 at 01:30 Zinc Sulfate (Zinc Sulfate) 220 mg DAILY GTB Last administered on 11/25/16 08: 17; Admin Dose 220 MG; Start 11/16/16 at 09:00 Diphenhydramine HCl (Benadryl Liquid Cup) 25 mg Q6H PRN GTB ITCHING; Start at 02:00 Clonidine (Catapres) 0.1 mg Q6H PRN GTB SBP >160; Start 11/16/16 at 02:06 Miscellaneous Information 1 ea NOTE XX ; Start 11/16/16 at 11:30 Glucose (Glutose) 15 gm Q15M PRN PO DECREASED GLUCOSE; Start 11/16/16 at 11:30 Glucose (Glutose) 22.5 gm Q15M PRN PO DECREASED GLUCOSE; Start 11/16/16 at 11: 30 Dextrose (D50w Syringe) 25 ml Q15M PRN IV DECREASED GLUCOSE; Start 11/16/16 at 11:30 Dextrose (D50w Syringe) 50 ml Q15M PRN IV DECREASED GLUCOSE; Start 11/16/16 at 11:30 Glucagon (Glucagen) 1 mg Q15M PRN IM DECREASED GLUCOSE; Start 11/16/16 at 11:30 Glucose (Glutose) 15 gm Q15M PRN BUCCAL DECREASED GLUCOSE; Start 11/16/16 at 11 :30 Collagenase (Santyl) 1 applic DAILY TOP Last administered on 11/25/16 08:18; Admin Dose 1 APPLIC; Start 11/17/16 at 09:00 Diphenhydramine HCl (Benadryl) 50 mg Q6H PRN IV ALLERGIC REACTION Last administered on 11/17/16 22:51; Admin Dose 50 MG; Start 11/17/16 at 16:30 Famotidine (Pepcid Iv) 20 mg BID IV Last administered on 11/25/16 08:17; Admin Dose 20 MG; Start 11/17/16 at 21:00 Magnesium Hydroxide (Milk Of Mag) 30 ml DAILY PRN PO CONSTIPATION Last administered on 11/19/16 12:41; Admin Dose 30 ML; Start 11/18/16 at 00:30 Ibuprofen (Motrin) 600 mg Q6H PRN PO PAIN OR TEMP ABOVE 38C Last administered on 11/24/16 22:26; Admin Dose 600 MG; Start 11/20/16 at 13:00 Linezolid (Zyvox) 600 mg BID PO Last administered on 11/25/16 08:17; Admin Dose 600 MG; Start 11/20/16 at 21:00 Polyethylene Glycol (Miralax) 17 gm DAILY NGT Last administered on 11/25/16 08 :16; Admin Dose 17 GM; Start 11/23/16 at 09:00 Heparin Sodium (Porcine) (Heparin (5000 Units/0.5 ml)) 5,000 unit BID SC Last administered on 11/25/16 08:19; Admin Dose 5,000 UNIT; Start 11/22/16 at 21:00 Metronidazole (Flagyl) 500 mg Q8 PO Last administered on 11/25/16 06:13; Admin Dose 500 MG; Start 11/23/16 at 14:00 Fluconazole (Diflucan) 100 mg DAILY GTB Last administered on 11/25/16 08:17; Admin Dose 100 MG; Start 11/23/16 at 14:00 Insulin Glargine 25 unit 25 unit DAILY@08 SC Last administered on 11/25/16 08: 19; Admin Dose 25 UNIT; Start 11/24/16 at 08:00 Dextrose (D5W) 1,000 ml @ 70 mls/hr [id number] IV Last administered on 11/25/16 00:40; Admin Dose 70 MLS/HR; Start 11/24/16 at 10:00 Lactulose (Enulose) 20 gm Q6 GTB Last administered on 11/25/16 06:12; Admin Dose 20 GM; Start 11/24/16 at 12:00 Metoclopramide HCl (Reglan) 5 mg Q6 IV Last administered on 11/25/16 06:13; Admin Dose 5 MG; Start 11/24/16 at 12:00; Stop 11/26/16 at 11:59 Diltiazem HCl (Cardizem) 30 mg Q8 PEG Last administered on 11/25/16 06:13; Admin Dose 30 MG; Start 11/24/16 at 14:00 Metoprolol Tartrate (Lopressor) 25 mg BID PO Last administered on 11/25/16 08: 17; Admin Dose 25 MG; Start 11/24/16 at 13:30 Metoprolol Tartrate (Lopressor) 5 mg Q4H PRN IV HR>110 Hold SBP<100; Start at 13:30 Insulin Aspart NOVOLOG *MODERATE* ALGORITHM Q4 SC Last administered on 11:29; Admin Dose 2 UNIT; Start 11/25/16 at 12:00 Cefepime HCl (Maxipime 1gm/50 ml (Pmx)) 50 ml @ 100 mls/hr Q24H IVPB ; Start at 14:00 Loratadine (Claritin) 10 mg DAILY PO ; Start 11/25/16 at 13:00 MI RICHMOND MD Nov 25, 2016 12:50
[2016-11-25] MEDS: LORATADINE 10 MG TAB PO SCH (13:34)
[2016-11-25] MEDS: CEFEPIME 1GM/50 ML (PMX) 50 ML IVPB SCH (13:34)
--- NOTE | 2016-11-25 13:44 | PN ---
DATE: 11/25/2016 SUBJECTIVE: No events overnight. No fevers. The last fever was last night 102.9. She is lying co mfortably in bed. She has a rectal tube and now has loose stools per report. The patient was disim pacted last night. LABORATORY DATA: WBC 6.3, no shift, no bands. BUN 46, creatinine 1.98. ANTIMICROBIALS: 1. Tobramycin inhalation. 2. Flagyl p.o. 3. Fluconazole per G-tube. 4. Colistin IV. 5. Oral Zyvox. MICROBIOLOGY: Urine culture grew Klebsiella ESBL and Pseudomonas aeruginosa, which were multidrug r esistant, susceptible to cefepime, amikacin, only Pseudomonas aeruginosa was susceptible. INDWELLINGS: Trach, PEG, Joel, rectal tube, and PICC line placed on 11/20/2016. ALLERGIES: 1. LEVAQUIN. 2. CEPHALOSPORINS. 3. PENICILLIN. 4. VANCOMYCIN. OBJECTIVE: GENERAL: This is a chronically ill-appearing, middle-aged woman who is lying comfortably in bed. The patient is nonverbal, nonresponsive. HEENT: Head atraumatic, normocephalic. Sclerae anicteric. Buccal mucosa dry. NECK: Supple. Tracheostomy present. CHEST: Rise symmetrical. Breath sounds diminished. HEART: S1, S2. ABDOMEN: Distended, soft. G-tube site clear. Bowel sounds present. EXTREMITIES: Wasted with trace edema. SKIN: With multiple unstageable decubiti. ASSESSMENT: 1. Severe sepsis with ongoing fevers. 2. Polymicrobial urinary tract infection. 3. Multiple unstageable wounds, possibly infected. 4. Acute renal failure. 5. Chronic respiratory failure with sputum culture grew multidrug resistant pseudomonas and Isabella lla morganii. 6. Advanced multiple sclerosis with functional quadriplegia. 7. Fecal impaction. PLAN: The patient has kidney function worsening, likely secondary to colistin that she is getting f or her sepsis. She is allergic to cephalosporins and penicillins. Her urine culture is susceptible to cefepime. We will start her on cefepime and monitor her for allergic reaction. We will also ke ep her on and discontinue colistin to preserve her kidney function. If patient develops aller gic reaction, we will put her back on colistin. Consider surgical evaluation for management of her wounds and possible debridement. Dictated By: FLEX DENNISON BOX BENDER for CRISTINA WHITFIELD/HERI Conf#: [id number] DID#: [id number]
--- NOTE | 2016-11-25 13:47 | CONS ---
Date/Time of Note Date/Time of Note DATE: 11/25/16 TIME: 13:44 Assessment/Plan Assessment/Plan Chief Complaint/Hosp Course Patient is a 56-year-old lady who was admitted for treatment of sepsis as well as anemia. Pulmonary consultation obtained for management of respiratory failure. Patient on mechanical ventilation chronically due to underlying severe multiple sclerosis. History present illness; 6-year-old lady admitted for treatment of severe sepsis as well as anemia. She was obtained from medical records as the patient is unable to give any history whatsoever by herself. The time I saw the patient the patient is on mechanical ventilation via tracheostomy patient is unresponsive. Patient on medical records, the patient has remained hemodynamically stable. Past medical history; 1. History of severe multiple sclerosis ventilator dependent. 2. History of multiple episodes of UTI. 3. Status post G-tube and tracheostomy. 4. Decubitus ulcers. Next Medications; were reviewed. Allergies; are to cephalosporins, penicillins, Levaquin and vancomycin. Social history; noncontributory. Family history; not available. Occupational history; patient is disabled. Review of systems; currently unable to be obtained. General examination; middle aged woman, on ventilator via tracheostomy unresponsive. Currently in no distress. Problems: Additional Assessment/Plan Ventilator settings; AC of 14, tidal volume 450, PEEP of 5, 30% FiO2. Assessment and recommendations; 1. Patient admitted with severe sepsis due to decubitus ulcer. Currently on appropriate antibiotic regimen. 2. Advanced multiple sclerosis with chronic respiratory failure, ventilator dependent. 3. Hyponatremia. 4. Intravascular volume depletion. Possibly diabetes insipidus. 5. Sacral decubitus ulcer. Current treatment. Increase her D5W to 125 mL/h. Add desmopressin subcutaneous twice a day. At least for 4 doses. Obtain a serum sodium level in the morning. Consultation Date/Type/Reason Admit Date/Time Nov 15, 2016 at 22:42 Initial Consult Date 11/18/16 Type of Consultation: Pulmonary 24 HR Interval Summary Free Text/Dictation Patient's condition remains stable. Remains unresponsive due to advanced multiple sclerosis. Remains ventilator dependent. Patient still having abdominal distention and her tube feeding is on hold. General examination; middle-aged woman on ventilator via tracheostomy unresponsive. Currently in no distress. Exam/Review of Systems Vital Signs Vitals Vital Signs Date Time Temp Pulse Resp B/P Pulse Ox O2 Delivery O2 Flow Rate FiO2 11/25/16 12:17 75 11/25/16 11:50 19 100 30 11/25/16 10:58 98.2 111/65 11/24/16 21:00 Mechanical Ventilator Intake and Output 11/24/16 11/24/16 11/25/16 15:00 23:00 07:00 Intake Total 100 ml 900 ml 880 ml Output Total 2900 ml 50 ml Balance 100 ml -2000 ml 830 ml Exam H EENT examination; supple neck, no JVD. No lymphadenopathy. Tracheostomy in place with clean insertion site. No neck masses. No thyromegaly. Chest examination; clear to auscultation bilaterally. S1-S2 audible, no murmurs. Regular rhythm. Abdomen examination; soft, protuberant. Bowel sounds audible. G-tube in place. No organomegaly. Extremity examination; no peripheral edema. 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 Results Result Diagram: 11/25/16 0550 11/25/16 0550 Results 24 hrs Laboratory Tests Test 11/24/16 16:33 11/24/16 18:27 11/24/16 21:45 11/25/16 00:43 Creatine Kinase 36 52 Creatine Kinase Index 0.6 0.4 Creatinine Kinase MB (Mass) < 0.22 < 0.22 Troponin I < 0.010 < 0.010 Bedside Glucose 213 208 Test 11/25/16 05:50 11/25/16 06:02 11/25/16 07:47 11/25/16 12:51 Anion Gap 20 H Basophils # 0.0 Basophils % 0.2 Blood Urea Nitrogen 46 #H Calcium Level 9.3 Carbon Dioxide Level 24 Chloride Level 110 Creatinine 1.98 H Eosinophils # 0.2 Eosinophils % 3.4 Glucose Level 209 Hematocrit 29.7 L Hemoglobin 8.9 L Lymphocytes # 1.6 Lymphocytes % 24.9 Mean Corpuscular Hemoglobin 27.6 L Mean Corpuscular Hemoglobin Concent 30.0 L Mean Corpuscular Volume 92.2 Mean Platelet Volume 11.4 H Monocytes # 0.4 Monocytes % 5.9 Neutrophils # 4.1 Neutrophils % 64.8 Nucleated Red Blood Cells # 0.0 Nucleated Red Blood Cells % 0.0 Platelet Count 257 Potassium Level 3.6 Red Blood Count 3.22 L Red Cell Distribution Width 17.3 H Sodium Level 150 H White Blood Count 6.3 Bedside Glucose 203 299 H 153 Medications Medications Current Medications Ondansetron HCl (Zofran Inj) 4 mg Q6H PRN IV NAUSEA AND/OR VOMITING; Start at 01:30 Acetaminophen (Tylenol Liquid) 650 mg Q6H PRN GTB ELEVATED TEMPERATURE Last administered on 11/25/16 06:18; Admin Dose 650 MG; Start 11/16/16 at 01:30 Baclofen (Lioresal) 20 mg TID GTB Last administered on 11/25/16 12:48; Admin Dose 20 MG; Start 11/16/16 at 09:00 Magnesium Oxide (Mag-Ox 400) 400 mg BID GTB Last administered on 11/25/16 08: 17; Admin Dose 400 MG; Start 11/16/16 at 09:00 Lansoprazole (Prevacid) 30 mg DAILY@06 GTB Last administered on 11/23/16 05:33 ; Admin Dose 30 MG; Start 11/16/16 at 06:00; Status Future Hold Simethicone (Mylicon) 160 mg DAILY PRN GTB DISTENSION/GAS/BLOATING Last administered on 11/18/16 12:30; Admin Dose 160 MG; Start 11/16/16 at 01:30 Zinc Sulfate (Zinc Sulfate) 220 mg DAILY GTB Last administered on 11/25/16 08: 17; Admin Dose 220 MG; Start 11/16/16 at 09:00 Diphenhydramine HCl (Benadryl Liquid Cup) 25 mg Q6H PRN GTB ITCHING; Start at 02:00 Clonidine (Catapres) 0.1 mg Q6H PRN GTB SBP >160; Start 11/16/16 at 02:06 Miscellaneous Information 1 ea NOTE XX ; Start 11/16/16 at 11:30 Glucose (Glutose) 15 gm Q15M PRN PO DECREASED GLUCOSE; Start 11/16/16 at 11:30 Glucose (Glutose) 22.5 gm Q15M PRN PO DECREASED GLUCOSE; Start 11/16/16 at 11: 30 Dextrose (D50w Syringe) 25 ml Q15M PRN IV DECREASED GLUCOSE; Start 11/16/16 at 11:30 Dextrose (D50w Syringe) 50 ml Q15M PRN IV DECREASED GLUCOSE; Start 11/16/16 at 11:30 Glucagon (Glucagen) 1 mg Q15M PRN IM DECREASED GLUCOSE; Start 11/16/16 at 11:30 Glucose (Glutose) 15 gm Q15M PRN BUCCAL DECREASED GLUCOSE; Start 11/16/16 at 11 :30 Collagenase (Santyl) 1 applic DAILY TOP Last administered on 11/25/16 08:18; Admin Dose 1 APPLIC; Start 11/17/16 at 09:00 Diphenhydramine HCl (Benadryl) 50 mg Q6H PRN IV ALLERGIC REACTION Last administered on 11/17/16 22:51; Admin Dose 50 MG; Start 11/17/16 at 16:30 Famotidine (Pepcid Iv) 20 mg BID IV Last administered on 11/25/16 08:17; Admin Dose 20 MG; Start 11/17/16 at 21:00 Magnesium Hydroxide (Milk Of Mag) 30 ml DAILY PRN PO CONSTIPATION Last administered on 11/19/16 12:41; Admin Dose 30 ML; Start 11/18/16 at 00:30 Ibuprofen (Motrin) 600 mg Q6H PRN PO PAIN OR TEMP ABOVE 38C Last administered on 11/24/16 22:26; Admin Dose 600 MG; Start 11/20/16 at 13:00 Linezolid (Zyvox) 600 mg BID PO Last administered on 11/25/16 08:17; Admin Dose 600 MG; Start 11/20/16 at 21:00 Polyethylene Glycol (Miralax) 17 gm DAILY NGT Last administered on 11/25/16 08 :16; Admin Dose 17 GM; Start 11/23/16 at 09:00 Heparin Sodium (Porcine) (Heparin (5000 Units/0.5 ml)) 5,000 unit BID SC Last administered on 11/25/16 08:19; Admin Dose 5,000 UNIT; Start 11/22/16 at 21:00 Metronidazole (Flagyl) 500 mg Q8 PO Last administered on 11/25/16 13:39; Admin Dose 500 MG; Start 11/23/16 at 14:00 Fluconazole (Diflucan) 100 mg DAILY GTB Last administered on 11/25/16 08:17; Admin Dose 100 MG; Start 11/23/16 at 14:00 Insulin Glargine 25 unit 25 unit DAILY@08 SC Last administered on 11/25/16 08: 19; Admin Dose 25 UNIT; Start 11/24/16 at 08:00 Dextrose (D5W) 1,000 ml @ 70 mls/hr [id number] IV Last administered on 11/25/16 00:40; Admin Dose 70 MLS/HR; Start 11/24/16 at 10:00 Lactulose (Enulose) 20 gm Q6 GTB Last administered on 11/25/16 06:12; Admin Dose 20 GM; Start 11/24/16 at 12:00 Metoclopramide HCl (Reglan) 5 mg Q6 IV Last administered on 11/25/16 12:48; Admin Dose 5 MG; Start 11/24/16 at 12:00; Stop 11/26/16 at 11:59 Diltiazem HCl (Cardizem) 30 mg Q8 PEG Last administered on 11/25/16 13:39; Admin Dose 30 MG; Start 11/24/16 at 14:00 Metoprolol Tartrate (Lopressor) 25 mg BID PO Last administered on 11/25/16 08: 17; Admin Dose 25 MG; Start 11/24/16 at 13:30 Metoprolol Tartrate (Lopressor) 5 mg Q4H PRN IV HR>110 Hold SBP<100; Start at 13:30 Insulin Aspart NOVOLOG *MODERATE* ALGORITHM Q4 SC Last administered on 11:29; Admin Dose 2 UNIT; Start 11/25/16 at 12:00 Cefepime HCl (Maxipime 1gm/50 ml (Pmx)) 50 ml @ 100 mls/hr Q24H IVPB Last administered on 11/25/16 13:34; Admin Dose 100 MLS/HR; Start 11/25/16 at 14:00 Loratadine (Claritin) 10 mg DAILY PO Last administered on 11/25/16 13:34; Admin Dose 10 MG; Start 11/25/16 at 13:00 ARYAN COLLADO Nov 25, 2016 13:47
--- NOTE | 2016-11-25 16:48 | PN ---
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 * this has severely affected at least 2 of patient's children * Actual diagnosis is not clear, but per reports patient was diagnosed with MS * Daughter requesting possible genetic testing Chronic resp failure Ventilator dependent via trach Intractable Sepsis 11/03 * MDR Pseudomonas HCAP * ESBL K pneumo / Pseudomonas UTI Chronic dysphagia s/p PEG tube * tube feedings on hold for mild ileus 2.7 mm Pulmonary perihilar nodule Acute renal insufficiency Upper ext fracture * s/p splint Bilateral Staghorn calculi DM 2 : suboptimal control Severe Anemia of chronic disease s/p transfusion Stage 4 sacral ulcer Hypernatremia: improved Severe constipation with impacted stool: resolved DNR PLAN: * Continue Abx per ID * adjust Lantus for improved control * Continue to hold tube feeds till patient is better decompressed * Continue wound care and frequent turns * Patient has been started on DDAVP per pulm * Continue all supportive care * 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 PROPHYLAXIS: Heparin, closely monitor hgb / PPI Subjective 24 Hr Interval Summary Free Text/Dictation We had a meeting with patient's daughter with palliative care and administrator social welfare. See Dr Collins's notes for details. Patient is now having watery bowel movements and abd is less distended Still spiking fevers however Exam/Review of Systems Vital Signs Vitals Vital Signs Date Time Temp Pulse Resp B/P Pulse Ox O2 Delivery O2 Flow Rate FiO2 11/25/16 16:11 93/53 11/25/16 15:58 70 18 100 30 11/25/16 15:09 98.6 11/24/16 21:00 Mechanical Ventilator Intake and Output 11/24/16 11/24/16 11/25/16 15:00 23:00 07:00 Intake Total 100 ml 900 ml 880 ml Output Total 2900 ml 50 ml Balance 100 ml -2000 ml 830 ml Exam Constitutional: frail, non-verbal, other (vegetative), No alert, No oriented Psych: No nl mood/affect Head: normocephalic ENMT: other (trach to vent) Respiratory: diminished breath sounds Cardiovascular: No murmurs/extra sounds, No regular rate and rhythm Gastrointestinal: bowel sounds (hypoactive), less distended, soft Musculoskeletal: other (daniel foot drop, functional quadriplegia, severe msc wasting) Neurological: unresponsive, No nl mental status Results Result Diagram: 11/25/16 0550 11/25/16 0550 Results 24 hrs Laboratory Tests Test 11/24/16 18:27 11/24/16 21:45 11/25/16 00:43 11/25/16 05:50 Bedside Glucose 213 208 Creatine Kinase 52 Creatine Kinase Index 0.4 Creatinine Kinase MB (Mass) < 0.22 Troponin I < 0.010 Anion Gap 20 H Basophils # 0.0 Basophils % 0.2 Blood Urea Nitrogen 46 #H Calcium Level 9.3 Carbon Dioxide Level 24 Chloride Level 110 Creatinine 1.98 H Eosinophils # 0.2 Eosinophils % 3.4 Glucose Level 209 Hematocrit 29.7 L Hemoglobin 8.9 L Lymphocytes # 1.6 Lymphocytes % 24.9 Mean Corpuscular Hemoglobin 27.6 L Mean Corpuscular Hemoglobin Concent 30.0 L Mean Corpuscular Volume 92.2 Mean Platelet Volume 11.4 H Monocytes # 0.4 Monocytes % 5.9 Neutrophils # 4.1 Neutrophils % 64.8 Nucleated Red Blood Cells # 0.0 Nucleated Red Blood Cells % 0.0 Platelet Count 257 Potassium Level 3.6 Red Blood Count 3.22 L Red Cell Distribution Width 17.3 H Sodium Level 150 H White Blood Count 6.3 Test 11/25/16 06:02 11/25/16 07:47 11/25/16 12:51 Bedside Glucose 203 299 H 153 Medications Medications Current Medications Ondansetron HCl (Zofran Inj) 4 mg Q6H PRN IV NAUSEA AND/OR VOMITING; Start at 01:30 Acetaminophen (Tylenol Liquid) 650 mg Q6H PRN GTB ELEVATED TEMPERATURE Last administered on 11/25/16t 06:18; Admin Dose 650 MG; Start 11/16/16 at 01:30 Baclofen (Lioresal) 20 mg TID GTB Last administered on 11/25/16 12:48; Admin Dose 20 MG; Start 11/16/16 at 09:00 Magnesium Oxide (Mag-Ox 400) 400 mg BID GTB Last administered on 11/25/16 08: 17; Admin Dose 400 MG; Start 11/16/16 at 09:00 Lansoprazole (Prevacid) 30 mg DAILY@06 GTB Last administered on 11/23/16 05:33 ; Admin Dose 30 MG; Start 11/16/16 at 06:00; Status Future Hold Simethicone (Mylicon) 160 mg DAILY PRN GTB DISTENSION/GAS/BLOATING Last administered on 11/18/16 12:30; Admin Dose 160 MG; Start 11/16/16 at 01:30 Zinc Sulfate (Zinc Sulfate) 220 mg DAILY GTB Last administered on 11/25/16 08: 17; Admin Dose 220 MG; Start 11/16/16 at 09:00 Diphenhydramine HCl (Benadryl Liquid Cup) 25 mg Q6H PRN GTB ITCHING; Start at 02:00 Clonidine (Catapres) 0.1 mg Q6H PRN GTB SBP >160; Start 11/16/16 at 02:06 Miscellaneous Information 1 ea NOTE XX ; Start 11/16/16 at 11:30 Glucose (Glutose) 15 gm Q15M PRN PO DECREASED GLUCOSE; Start 11/16/16 at 11:30 Glucose (Glutose) 22.5 gm Q15M PRN PO DECREASED GLUCOSE; Start 11/16/16 at 11: 30 Dextrose (D50w Syringe) 25 ml Q15M PRN IV DECREASED GLUCOSE; Start 11/16/16 at 11:30 Dextrose (D50w Syringe) 50 ml Q15M PRN IV DECREASED GLUCOSE; Start 11/16/16 at 11:30 Glucagon (Glucagen) 1 mg Q15M PRN IM DECREASED GLUCOSE; Start 11/16/16 at 11:30 Glucose (Glutose) 15 gm Q15M PRN BUCCAL DECREASED GLUCOSE; Start 11/16/16 at 11 :30 Collagenase (Santyl) 1 applic DAILY TOP Last administered on 11/25/16 08:18; Admin Dose 1 APPLIC; Start 11/17/16 at 09:00 Diphenhydramine HCl (Benadryl) 50 mg Q6H PRN IV ALLERGIC REACTION Last administered on 11/17/16 22:51; Admin Dose 50 MG; Start 11/17/16 at 16:30 Magnesium Hydroxide (Milk Of Mag) 30 ml DAILY PRN PO CONSTIPATION Last administered on 11/19/16 12:41; Admin Dose 30 ML; Start 11/18/16 at 00:30 Ibuprofen (Motrin) 600 mg Q6H PRN PO PAIN OR TEMP ABOVE 38C Last administered on 11/24/16 22:26; Admin Dose 600 MG; Start 11/20/16 at 13:00 Linezolid (Zyvox) 600 mg BID PO Last administered on 11/25/16 08:17; Admin Dose 600 MG; Start 11/20/16 at 21:00 Polyethylene Glycol (Miralax) 17 gm DAILY NGT Last administered on 11/25/16 08 :16; Admin Dose 17 GM; Start 11/23/16 at 09:00 Heparin Sodium (Porcine) (Heparin (5000 Units/0.5 ml)) 5,000 unit BID SC Last administered on 11/25/16 08:19; Admin Dose 5,000 UNIT; Start 11/22/16 at 21:00 Metronidazole (Flagyl) 500 mg Q8 PO Last administered on 11/25/16 13:39; Admin Dose 500 MG; Start 11/23/16 at 14:00 Fluconazole (Diflucan) 100 mg DAILY GTB Last administered on 11/25/16 08:17; Admin Dose 100 MG; Start 11/23/16 at 14:00 Insulin Glargine 25 unit 25 unit DAILY@08 SC Last administered on 11/25/16 08: 19; Admin Dose 25 UNIT; Start 11/24/16 at 08:00 Dextrose (D5W) 1,000 ml @ 125 mls/hr Q8H IV Last administered on 11/25/16 16: 35; Admin Dose 125 MLS/HR; Start 11/24/16 at 10:00 Lactulose (Enulose) 20 gm Q6 GTB Last administered on 11/25/16 06:12; Admin Dose 20 GM; Start 11/24/16 at 12:00 Metoclopramide HCl (Reglan) 5 mg Q6 IV Last administered on 11/25/16 12:48; Admin Dose 5 MG; Start 11/24/16 at 12:00; Stop 11/26/16 at 11:59 Diltiazem HCl (Cardizem) 30 mg Q8 PEG Last administered on 11/25/16 13:39; Admin Dose 30 MG; Start 11/24/16 at 14:00 Metoprolol Tartrate (Lopressor) 25 mg BID PO Last administered on 11/25/16 08: 17; Admin Dose 25 MG; Start 11/24/16 at 13:30 Metoprolol Tartrate (Lopressor) 5 mg Q4H PRN IV HR>110 Hold SBP<100; Start at 13:30 Insulin Aspart NOVOLOG *MODERATE* ALGORITHM Q4 SC Last administered on 11:29; Admin Dose 2 UNIT; Start 11/25/16 at 12:00 Cefepime HCl (Maxipime 1gm/50 ml (Pmx)) 50 ml @ 100 mls/hr Q24H IVPB Last administered on 11/25/16 13:34; Admin Dose 100 MLS/HR; Start 11/25/16 at 14:00 Loratadine (Claritin) 10 mg DAILY PO Last administered on 11/25/16 13:34; Admin Dose 10 MG; Start 11/25/16 at 13:00 Desmopressin Acetate (Ddavp) 2 mcg BID SC ; Start 11/25/16 at 21:00 Famotidine (Pepcid Iv) 20 mg DAILY IV ; Start 11/26/16 at 09:00 DIVINE PERKINS Nov 25, 2016 16:48
[2016-11-25] MEDS: DESMOPRESSIN 4 MCG INJ SC SCH (21:04)
[2016-11-26] VITALS (24 sets, daily range): BP systolic 88–138; BP diastolic 54–82; PULSE 89–106; RESP 15–27
[2016-11-26] MEDS: INSULIN ASPART [NOVOLOG] 3 ML PEN SC SCH ×5 (04:38→23:35)
[2016-11-26] MEDS: metroNIDAZOLE 500 MG TAB PO SCH ×3 (05:01→20:06)
[2016-11-26] MEDS: LACTULOSE 30ML CUP GTB SCH ×3 (05:01→18:47)
[2016-11-26] MEDS: METOCLOPRAMIDE 10 MG INJ IV SCH (05:02)
[2016-11-26] MEDS: DILTIAZEM 30 MG TAB PEG SCH ×3 (05:02→20:08)
[2016-11-26] MEDS: DEXTROSE 5% 1,000 ML IV SCH ×3 (05:03→23:34)
[2016-11-26 07:17] LABS: ADD SCAN DIFF NO
[2016-11-26 07:22] LABS: BASOPHILS % 0.2 % (0.0-2.0); EOSINOPHILS # 0.4 10^3/ul (0.0-0.5); EOSINOPHILS % 8.1 % (0.0-7.0); HEMATOCRIT 26.9 % (37.0-47.0); HEMOGLOBIN 8.3 g/dl (12.0-16.0); LYMPHOCYTES % 20.2 % (15.0-51.0); MEAN CORPUSCULAR HEMOGLOBIN 27.7 pg (29.0-33.0); MEAN CORPUSCULAR HGB CONC 30.9 g/dl (32.0-37.0); MEAN CORPUSCULAR VOLUME 89.7 fl (82.0-101.0); MEAN PLATELET VOLUME 11.2 fl (7.4-10.4); MONOCYTE # 0.3 10^3/ul (0.3-0.9); MONOCYTES % 5.1 % (0.0-11.0); NEUTROPHIL # 3.2 10^3/ul (1.6-7.5); NEUTROPHILS % 65.4 % (39.0-77.0); PLATELET COUNT 248 10^3/UL (140-415); RED CELL DISTRIBUTION WIDTH 16.9 % (11.5-14.5); WHITE BLOOD COUNT 4.9 10^3/ul (4.8-10.8)
[2016-11-26 07:33] LABS: CREATININE 1.26 mg/dl (0.44-1.00)
[2016-11-26 07:34] LABS: CALCIUM 8.5 mg/dl (8.4-10.2)
--- NOTE | 2016-11-26 08:41 | CONS ---
Date/Time of Note Date/Time of Note DATE: 11/26/16 TIME: 08:40 Assessment/Plan Assessment/Plan Chief Complaint/Hosp Course D PROGRESS NOTE CURRENT ABX=> 1. Tobramycin inhalation. 2. Flagyl p.o. 3. Fluconazole per G-tube. 4. Cefepime -> Replaced Colistin IV. 5. Oral Zyvox. 24H INTERVAL SUMMARY * Obtunded -> Noncommunicative on the Vent, Afebrile, VSS, NAD * s/p Fever 102.9 on 11/24/16 -- afebrile x48H PHYSICAL EXAMINATION: GENERAL: VSS, NAD HEENT: Unremarkable NECK: Supple, trach-> Secure to Vent with scant whitish secretions CHEST: Rise symmetrical, without dyspnea on observation HEART: Pulse RRR ABDOMEN: Soft, Peg EXTREMITIES: Wasted with trace edema. SKIN: With multiple unstageable decubiti. ID ASSESSMENT 56 yo F w/ Advanced multiple sclerosis, encephalopathy, and functional quadriplegia admit with: 1. Severe sepsis with fevers on and off -> Afebrile x 48H 2. Polymicrobial urinary tract infection. * Klebsiella ESBL and Pseudomonas aeruginosa, which were multidrug resistant, susceptible to cefepime, amikacin, only Pseudomonas aeruginosa was susceptible. 3. Multiple unstageable wounds, possibly infected. 4. Acute renal failure. 5. Chronic respiratory failure with sputum culture grew multidrug resistant pseudomonas and Morganella morganii. 6. Diarrhea 7. Fecal impaction. ( )MRSA Nares -> INVASIVES: PICC(11/20/16), Trach,PEG, FC, Rectal containment device ABX ALLERGY: PCN, Cephalosporins, Fluoroquinolones, Vanco IV CURRENT ABX: 1. Tobramycin inhalation. 2. Flagyl p.o. 3. Fluconazole per G-tube. 4. Cefepime -> Replaced Colistin IV. 5. Oral Zyvox. ID RECOMMENDATIONS 1. Continue current ABX ->NO RASH noted = continue Cefepime 2. When was urine catheter changed ? Repeat micro (+)GNR mixed pathogens -- will ask RN to change FC . Problems: Consultation Date/Type/Reason Admit Date/Time Nov 15, 2016 at 22:42 Initial Consult Date 11/18/16 Type of Consultation: ID Exam/Review of Systems Vital Signs Vitals Vital Signs Date Time Temp Pulse Resp B/P Pulse Ox O2 Delivery O2 Flow Rate FiO2 11/26/16 07:49 98.2 110 16 98/55 98 11/26/16 07:15 30 11/24/16 21:00 Mechanical Ventilator Intake and Output 11/25/16 11/25/16 11/26/16 15:00 23:00 07:00 Intake Total 1050 ml 1500 ml Output Total 400 ml Balance 650 ml 1500 ml Results Result Diagram: 11/26/16 0615 11/26/16 0605 Results 24 hrs Laboratory Tests Test 11/25/16 12:51 11/25/16 17:05 11/25/16 20:19 11/25/16 23:55 Bedside Glucose 153 170 206 169 Test 11/26/16 04:18 11/26/16 06:05 11/26/16 06:15 11/26/16 07:46 Bedside Glucose 115 98 Anion Gap 16 Blood Urea Nitrogen 36 H Calcium Level 8.5 Carbon Dioxide Level 21 Chloride Level 102 Creatinine 1.26 H Glucose Level 100 # Potassium Level 3.0 L Sodium Level 136 Basophils # 0.0 Basophils % 0.2 Eosinophils # 0.4 Eosinophils % 8.1 H Hematocrit 26.9 L Hemoglobin 8.3 L Lymphocytes # 1.0 Lymphocytes % 20.2 Mean Corpuscular Hemoglobin 27.7 L Mean Corpuscular Hemoglobin Concent 30.9 L Mean Corpuscular Volume 89.7 Mean Platelet Volume 11.2 H Monocytes # 0.3 Monocytes % 5.1 Neutrophils # 3.2 Neutrophils % 65.4 Nucleated Red Blood Cells # 0.0 Nucleated Red Blood Cells % 0.0 Platelet Count 248 Red Blood Count 3.00 L Red Cell Distribution Width 16.9 H White Blood Count 4.9 # Medications Medications Current Medications Ondansetron HCl (Zofran Inj) 4 mg Q6H PRN IV NAUSEA AND/OR VOMITING; Start at 01:30 Acetaminophen (Tylenol Liquid) 650 mg Q6H PRN GTB ELEVATED TEMPERATURE Last administered on 11/25/16 06:18; Admin Dose 650 MG; Start 11/16/16 at 01:30 Baclofen (Lioresal) 20 mg TID GTB Last administered on 11/25/16 21:02; Admin Dose 20 MG; Start 11/16/16 at 09:00 Magnesium Oxide (Mag-Ox 400) 400 mg BID GTB Last administered on 11/25/16 21: 01; Admin Dose 400 MG; Start 11/16/16 at 09:00 Lansoprazole (Prevacid) 30 mg DAILY@06 GTB Last administered on 11/23/16 05:33 ; Admin Dose 30 MG; Start 11/16/16 at 06:00; Status Future Hold Simethicone (Mylicon) 160 mg DAILY PRN GTB DISTENSION/GAS/BLOATING Last administered on 11/18/16 12:30; Admin Dose 160 MG; Start 11/16/16 at 01:30 Zinc Sulfate (Zinc Sulfate) 220 mg DAILY GTB Last administered on 11/25/16 08: 17; Admin Dose 220 MG; Start 11/16/16 at 09:00 Diphenhydramine HCl (Benadryl Liquid Cup) 25 mg Q6H PRN GTB ITCHING; Start at 02:00 Clonidine (Catapres) 0.1 mg Q6H PRN GTB SBP >160; Start 11/16/16 at 02:06 Miscellaneous Information 1 ea NOTE XX ; Start 11/16/16 at 11:30 Glucose (Glutose) 15 gm Q15M PRN PO DECREASED GLUCOSE; Start 11/16/16 at 11:30 Glucose (Glutose) 22.5 gm Q15M PRN PO DECREASED GLUCOSE; Start 11/16/16 at 11: 30 Dextrose (D50w Syringe) 25 ml Q15M PRN IV DECREASED GLUCOSE; Start 11/16/16 at 11:30 Dextrose (D50w Syringe) 50 ml Q15M PRN IV DECREASED GLUCOSE; Start 11/16/16 at 11:30 Glucagon (Glucagen) 1 mg Q15M PRN IM DECREASED GLUCOSE; Start 11/16/16 at 11:30 Glucose (Glutose) 15 gm Q15M PRN BUCCAL DECREASED GLUCOSE; Start 11/16/16 at 11 :30 Collagenase (Santyl) 1 applic DAILY TOP Last administered on 11/25/16 08:18; Admin Dose 1 APPLIC; Start 11/17/16 at 09:00 Diphenhydramine HCl (Benadryl) 50 mg Q6H PRN IV ALLERGIC REACTION Last administered on 11/17/16 22:51; Admin Dose 50 MG; Start 11/17/16 at 16:30 Magnesium Hydroxide (Milk Of Mag) 30 ml DAILY PRN PO CONSTIPATION Last administered on 11/19/16 12:41; Admin Dose 30 ML; Start 11/18/16 at 00:30 Ibuprofen (Motrin) 600 mg Q6H PRN PO PAIN OR TEMP ABOVE 38C Last administered on 11/24/16 22:26; Admin Dose 600 MG; Start 11/20/16 at 13:00 Linezolid (Zyvox) 600 mg BID PO Last administered on 11/25/16 21:02; Admin Dose 600 MG; Start 11/20/16 at 21:00 Polyethylene Glycol (Miralax) 17 gm DAILY NGT Last administered on 11/25/16 08 :16; Admin Dose 17 GM; Start 11/23/16 at 09:00 Heparin Sodium (Porcine) (Heparin (5000 Units/0.5 ml)) 5,000 unit BID SC Last administered on 11/25/16 21:19; Admin Dose 5,000 UNIT; Start 11/22/16 at 21:00 Metronidazole (Flagyl) 500 mg Q8 PO Last administered on 11/26/16 05:01; Admin Dose 500 MG; Start 11/23/16 at 14:00 Fluconazole 100 mg 100 mg DAILY GTB Last administered on 11/25/16 08:17; Admin Dose 100 MG; Start 11/23/16 at 14:00 Dextrose (D5W) 1,000 ml @ 125 mls/hr Q8H IV Last administered on 11/26/16 05: 03; Admin Dose 125 MLS/HR; Start 11/24/16 at 10:00 Lactulose (Enulose) 20 gm Q6 GTB Last administered on 11/26/16 05:01; Admin Dose 20 GM; Start 11/24/16 at 12:00 Metoclopramide HCl (Reglan) 5 mg Q6 IV Last administered on 11/26/16 05:02; Admin Dose 5 MG; Start 11/24/16 at 12:00; Stop 11/26/16 at 11:59 Diltiazem HCl (Cardizem) 30 mg Q8 PEG Last administered on 11/26/16 05:02; Admin Dose 30 MG; Start 11/24/16 at 14:00 Metoprolol Tartrate (Lopressor) 25 mg BID PO Last administered on 11/25/16 08: 17; Admin Dose 25 MG; Start 11/24/16 at 13:30 Metoprolol Tartrate (Lopressor) 5 mg Q4H PRN IV HR>110 Hold SBP<100; Start at 13:30 Insulin Aspart NOVOLOG *MODERATE* ALGORITHM Q4 SC Last administered on 21:19; Admin Dose 1 UNIT; Start 11/25/16 at 12:00 Cefepime HCl (Maxipime 1gm/50 ml (Pmx)) 50 ml @ 100 mls/hr Q24H IVPB Last administered on 11/25/16 13:34; Admin Dose 100 MLS/HR; Start 11/25/16 at 14:00 Loratadine (Claritin) 10 mg DAILY PO Last administered on 11/25/16 13:34; Admin Dose 10 MG; Start 11/25/16 at 13:00 Desmopressin Acetate (Ddavp) 2 mcg BID SC Last administered on 11/25/16 21:04 ; Admin Dose 2 MCG; Start 11/25/16 at 21:00 Famotidine (Pepcid Iv) 20 mg DAILY IV ; Start 11/26/16 at 09:00 Insulin Glargine (Lantus) 35 unit DAILY@08 SC ; Start 11/26/16 at 08:00 REI BECK NP Nov 26, 2016 08:41
[2016-11-26] MEDS: METOPROLOL 25 MG TAB PO SCH ×2 (08:48→21:00)
[2016-11-26] MEDS: ZINC SULFATE 220 MG CAP GTB SCH (08:54)
[2016-11-26] MEDS: ZYVOX 600 MG TAB PO SCH ×2 (08:54→20:06)
[2016-11-26] MEDS: FAMOTIDINE 20 MG INJ IV SCH (08:54)
[2016-11-26] MEDS: MAGNESIUM OXIDE 400 MG TAB GTB SCH ×2 (08:54→20:06)
[2016-11-26] MEDS: LORATADINE 10 MG TAB PO SCH (08:54)
[2016-11-26] MEDS: MAGNESIUM HYDROXIDE 30ML CUP PO PRN (08:55)
[2016-11-26] MEDS: BACLOFEN 10 MG TAB GTB SCH ×3 (08:55→20:06)
[2016-11-26] MEDS: POLYETHYLENE GLYCOL 17 GM PACKET NGT SCH (08:55)
[2016-11-26] MEDS: FLUCONAZOLE 100 MG TAB GTB SCH (08:55)
[2016-11-26] MEDS: COLLAGENASE 30 GM TUBE TOP SCH ×2 (08:56→21:00)
[2016-11-26] MEDS: DESMOPRESSIN 4 MCG INJ SC SCH ×2 (08:57→20:08)
[2016-11-26] MEDS: INSULIN GLARGINE [LANtus] 3 ML PEN SC SCH (09:00)
[2016-11-26] MEDS: HEPARIN 5,000 UNIT/0.5 ML SYG SC SCH ×2 (09:00→20:45)
[2016-11-26] MEDS: TOBRAMYCIN/0.25NS 300 MG/5 ML INHAL NEB SCH ×2 (10:30→21:00)
--- NOTE | 2016-11-26 11:28 | PN ---
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 * this has severely affected at least 2 of patient's children * Actual diagnosis is not clear, but per reports patient was diagnosed with MS * Daughter requesting possible genetic testing Chronic resp failure Ventilator dependent via trach Persistent tachycardia ?11/03 sepsis r/o SVT Intractable Sepsis 11/03 :?improving * MDR Pseudomonas HCAP * ESBL K pneumo / Pseudomonas UTI Chronic dysphagia s/p PEG tube * tube feedings on hold for mild ileus 2.7 mm Pulmonary perihilar nodule Acute renal insufficiency Upper ext fracture * s/p med mgt with splint Bilateral Staghorn calculi * urology consult obtained but never saw patient / no evidence of hydronephrosis / patient is not a candidate for any intervention DM 2 : suboptimal control Severe Anemia of chronic disease s/p transfusion Stage 4 sacral ulcer Hypernatremia: improved Severe constipation with impacted stool: resolved DNR Subclinical hypothyroidism PLAN: * Continue Abx per ID * appreciate cardio recs and input / repeat thyroid profile * Resume tube feeds at slower rate with good bowel regimen and lots of water * Continue wound care and frequent turns * Patient has been started on DDAVP per pulm * Continue all supportive care * 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 PROPHYLAXIS: Heparin, closely monitor hgb / PPI Subjective 24 Hr Interval Summary Free Text/Dictation Patient seen and examined. Subjective hx not possible: pt critical status Exam/Review of Systems Vital Signs Vitals Vital Signs Date Time Temp Pulse Resp B/P Pulse Ox O2 Delivery O2 Flow Rate FiO2 11/26/16 09:20 107 25 94 30 11/26/16 07:49 98.2 98/55 11/24/16 21:00 Mechanical Ventilator Intake and Output 11/25/16 11/25/16 11/26/16 15:00 23:00 07:00 Intake Total 1050 ml 1500 ml Output Total 400 ml Balance 650 ml 1500 ml Exam Constitutional: frail, non-verbal, other (vegetative), No alert, No oriented Psych: No nl mood/affect Head: normocephalic ENMT: other (trach to vent) Respiratory: diminished breath sounds Cardiovascular: No murmurs/extra sounds, No regular rate and rhythm Gastrointestinal: bowel sounds (hypoactive), less distended, soft Musculoskeletal: other (daniel foot drop, functional quadriplegia, severe msc wasting) Neurological: unresponsive, No nl mental status Results Result Diagram: 11/26/16 0615 11/26/16 0605 Results 24 hrs Laboratory Tests Test 11/25/16 12:51 11/25/16 17:05 11/25/16 20:19 11/25/16 23:55 Bedside Glucose 153 170 206 169 Test 11/26/16 04:18 11/26/16 06:05 11/26/16 06:15 11/26/16 07:46 Bedside Glucose 115 98 Anion Gap 16 Blood Urea Nitrogen 36 H Calcium Level 8.5 Carbon Dioxide Level 21 Chloride Level 102 Creatinine 1.26 H Glucose Level 100 # Potassium Level 3.0 L Sodium Level 136 Basophils # 0.0 Basophils % 0.2 Eosinophils # 0.4 Eosinophils % 8.1 H Hematocrit 26.9 L Hemoglobin 8.3 L Lymphocytes # 1.0 Lymphocytes % 20.2 Mean Corpuscular Hemoglobin 27.7 L Mean Corpuscular Hemoglobin Concent 30.9 L Mean Corpuscular Volume 89.7 Mean Platelet Volume 11.2 H Monocytes # 0.3 Monocytes % 5.1 Neutrophils # 3.2 Neutrophils % 65.4 Nucleated Red Blood Cells # 0.0 Nucleated Red Blood Cells % 0.0 Platelet Count 248 Red Blood Count 3.00 L Red Cell Distribution Width 16.9 H White Blood Count 4.9 # Medications Medications Current Medications Ondansetron HCl (Zofran Inj) 4 mg Q6H PRN IV NAUSEA AND/OR VOMITING; Start at 01:30 Acetaminophen (Tylenol Liquid) 650 mg Q6H PRN GTB ELEVATED TEMPERATURE Last administered on 11/25/16t 06:18; Admin Dose 650 MG; Start 11/16/16 at 01:30 Baclofen (Lioresal) 20 mg TID GTB Last administered on 11/26/16 08:55; Admin Dose 20 MG; Start 11/16/16 at 09:00 Magnesium Oxide (Mag-Ox 400) 400 mg BID GTB Last administered on 11/26/16 08: 54; Admin Dose 400 MG; Start 11/16/16 at 09:00 Lansoprazole (Prevacid) 30 mg DAILY@06 GTB Last administered on 11/23/16 05:33 ; Admin Dose 30 MG; Start 11/16/16 at 06:00; Status Future Hold Simethicone (Mylicon) 160 mg DAILY PRN GTB DISTENSION/GAS/BLOATING Last administered on 11/18/16 12:30; Admin Dose 160 MG; Start 11/16/16 at 01:30 Zinc Sulfate (Zinc Sulfate) 220 mg DAILY GTB Last administered on 11/26/16 08: 54; Admin Dose 220 MG; Start 11/16/16 at 09:00 Diphenhydramine HCl (Benadryl Liquid Cup) 25 mg Q6H PRN GTB ITCHING; Start at 02:00 Clonidine (Catapres) 0.1 mg Q6H PRN GTB SBP >160; Start 11/16/16 at 02:06 Miscellaneous Information 1 ea NOTE XX ; Start 11/16/16 at 11:30 Glucose (Glutose) 15 gm Q15M PRN PO DECREASED GLUCOSE; Start 11/16/16 at 11:30 Glucose (Glutose) 22.5 gm Q15M PRN PO DECREASED GLUCOSE; Start 11/16/16 at 11: 30 Dextrose (D50w Syringe) 25 ml Q15M PRN IV DECREASED GLUCOSE; Start 11/16/16 at 11:30 Dextrose (D50w Syringe) 50 ml Q15M PRN IV DECREASED GLUCOSE; Start 11/16/16 at 11:30 Glucagon (Glucagen) 1 mg Q15M PRN IM DECREASED GLUCOSE; Start 11/16/16 at 11:30 Glucose (Glutose) 15 gm Q15M PRN BUCCAL DECREASED GLUCOSE; Start 11/16/16 at 11 :30 Collagenase (Santyl) 1 applic DAILY TOP Last administered on 11/26/16 08:56; Admin Dose 1 APPLIC; Start 11/17/16 at 09:00 Diphenhydramine HCl (Benadryl) 50 mg Q6H PRN IV ALLERGIC REACTION Last administered on 11/17/16 22:51; Admin Dose 50 MG; Start 11/17/16 at 16:30 Magnesium Hydroxide (Milk Of Mag) 30 ml DAILY PRN PO CONSTIPATION Last administered on 11/26/16 08:55; Admin Dose 30 ML; Start 11/18/16 at 00:30 Ibuprofen (Motrin) 600 mg Q6H PRN PO PAIN OR TEMP ABOVE 38C Last administered on 11/24/16 22:26; Admin Dose 600 MG; Start 11/20/16 at 13:00 Linezolid (Zyvox) 600 mg BID PO Last administered on 11/26/16 08:54; Admin Dose 600 MG; Start 11/20/16 at 21:00 Polyethylene Glycol (Miralax) 17 gm DAILY NGT Last administered on 11/26/16 08 :55; Admin Dose 17 GM; Start 11/23/16 at 09:00 Heparin Sodium (Porcine) (Heparin (5000 Units/0.5 ml)) 5,000 unit BID SC Last administered on 11/26/16 09:00; Admin Dose 5,000 UNIT; Start 11/22/16 at 21:00 Metronidazole (Flagyl) 500 mg Q8 PO Last administered on 11/26/16 05:01; Admin Dose 500 MG; Start 11/23/16 at 14:00 Fluconazole 100 mg 100 mg DAILY GTB Last administered on 11/26/16 08:55; Admin Dose 100 MG; Start 11/23/16 at 14:00 Dextrose (D5W) 1,000 ml @ 125 mls/hr Q8H IV Last administered on 11/26/16 05: 03; Admin Dose 125 MLS/HR; Start 11/24/16 at 10:00 Lactulose (Enulose) 20 gm Q6 GTB Last administered on 11/26/16 05:01; Admin Dose 20 GM; Start 11/24/16 at 12:00 Metoclopramide HCl (Reglan) 5 mg Q6 IV Last administered on 11/26/16 05:02; Admin Dose 5 MG; Start 11/24/16 at 12:00; Stop 11/26/16 at 11:59 Diltiazem HCl (Cardizem) 30 mg Q8 PEG Last administered on 11/26/16 05:02; Admin Dose 30 MG; Start 11/24/16 at 14:00 Metoprolol Tartrate (Lopressor) 25 mg BID PO Last administered on 11/25/16 08: 17; Admin Dose 25 MG; Start 11/24/16 at 13:30 Metoprolol Tartrate (Lopressor) 5 mg Q4H PRN IV HR>110 Hold SBP<100; Start at 13:30 Insulin Aspart NOVOLOG *MODERATE* ALGORITHM Q4 SC Last administered on 21:19; Admin Dose 1 UNIT; Start 11/25/16 at 12:00 Cefepime HCl (Maxipime 1gm/50 ml (Pmx)) 50 ml @ 100 mls/hr Q24H IVPB Last administered on 11/25/16 13:34; Admin Dose 100 MLS/HR; Start 11/25/16 at 14:00 Loratadine (Claritin) 10 mg DAILY PO Last administered on 11/26/16 08:54; Admin Dose 10 MG; Start 11/25/16 at 13:00 Desmopressin Acetate (Ddavp) 2 mcg BID SC Last administered on 11/26/16 08:57 ; Admin Dose 2 MCG; Start 11/25/16 at 21:00 Famotidine (Pepcid Iv) 20 mg DAILY IV Last administered on 11/26/16 08:54; Admin Dose 20 MG; Start 11/26/16 at 09:00 Insulin Glargine (Lantus) 35 unit DAILY@08 SC Last administered on 11/26/16 09 :00; Admin Dose 35 UNIT; Start 11/26/16 at 08:00 DIVINE PERKINS Nov 26, 2016 11:28
--- NOTE | 2016-11-26 12:05 | CONS ---
Date/Time of Note Date/Time of Note DATE: 11/26/16 TIME: 12:03 Assessment/Plan Assessment/Plan Chief Complaint/Hosp Course Patient is a 56-year-old lady who was admitted for treatment of sepsis as well as anemia. Pulmonary consultation obtained for management of respiratory failure. Patient on mechanical ventilation chronically due to underlying severe multiple sclerosis. History present illness; 6-year-old lady admitted for treatment of severe sepsis as well as anemia. She was obtained from medical records as the patient is unable to give any history whatsoever by herself. The time I saw the patient the patient is on mechanical ventilation via tracheostomy patient is unresponsive. Patient on medical records, the patient has remained hemodynamically stable. Past medical history; 1. History of severe multiple sclerosis ventilator dependent. 2. History of multiple episodes of UTI. 3. Status post G-tube and tracheostomy. 4. Decubitus ulcers. Next Medications; were reviewed. Allergies; are to cephalosporins, penicillins, Levaquin and vancomycin. Social history; noncontributory. Family history; not available. Occupational history; patient is disabled. Review of systems; currently unable to be obtained. General examination; middle aged woman, on ventilator via tracheostomy unresponsive. Currently in no distress. Problems: Additional Assessment/Plan Ventilator settings; AC of 14, tidal volume 450, PEEP of 5, 30% FiO2. Assessment recommendations; 1. Patient admitted with sepsis due to sacral decubitus ulcer currently doing well on current treatment regimen. 2. History of chronic respiratory failure due to advanced multiple sclerosis. 3. Diabetes. 4. Hypertension. 5. History of muscle spasms. Continue current supportive care. Consultation Date/Type/Reason Admit Date/Time Nov 15, 2016 at 22:42 Initial Consult Date 11/18/16 Type of Consultation: Pulmonary 24 HR Interval Summary Free Text/Dictation Patient condition stable. Remains unresponsive with advanced multiple sclerosis. Has remained hemodynamically stable. General examination; young woman, on ventilator via tracheostomy. Remains unresponsive. No distress noted. Exam/Review of Systems Vital Signs Vitals Vital Signs Date Time Temp Pulse Resp B/P Pulse Ox O2 Delivery O2 Flow Rate FiO2 11/26/16 11:41 98.0 100 16 88/54 100 11/26/16 11:15 30 11/24/16 21:00 Mechanical Ventilator Intake and Output 11/25/16 11/25/1617 15:00 23:00 07:00 Intake Total 1050 ml 1500 ml Output Total 400 ml Balance 650 ml 1500 ml Exam H EENT examination; supple neck, no JVD. No lymphadenopathy. Midline trachea. Pupils are small bilaterally. The colostomy in place with clean insertion site. Chest examination; diminished but clear breath sounds bilaterally. No added sounds. S1-S2 audible, no murmurs. Regular rhythm. Abdomen examination; soft, G-tube in place. Nondistended abdomen. Bowel sounds audible. Extremity examination; no peripheral edema. Back examination : reveals a dressing over the sacral area. VETERINARY MICROBIOLOGIST examination; patient remains unresponsive. Results Result Diagram: 11/26/16 0615 11/26/16 0605 Results 24 hrs Laboratory Tests Test 11/25/16 12:51 11/25/16 17:05 11/25/16 20:19 11/25/16 23:55 Bedside Glucose 153 170 206 169 Test 11/26/16 04:18 11/26/16 06:05 11/26/16 06:15 11/26/16 07:46 Bedside Glucose 115 98 Anion Gap 16 Blood Urea Nitrogen 36 H Calcium Level 8.5 Carbon Dioxide Level 21 Chloride Level 102 Creatinine 1.26 H Glucose Level 100 # Potassium Level 3.0 L Sodium Level 136 Basophils # 0.0 Basophils % 0.2 Eosinophils # 0.4 Eosinophils % 8.1 H Hematocrit 26.9 L Hemoglobin 8.3 L Lymphocytes # 1.0 Lymphocytes % 20.2 Mean Corpuscular Hemoglobin 27.7 L Mean Corpuscular Hemoglobin Concent 30.9 L Mean Corpuscular Volume 89.7 Mean Platelet Volume 11.2 H Monocytes # 0.3 Monocytes % 5.1 Neutrophils # 3.2 Neutrophils % 65.4 Nucleated Red Blood Cells # 0.0 Nucleated Red Blood Cells % 0.0 Platelet Count 248 Red Blood Count 3.00 L Red Cell Distribution Width 16.9 H White Blood Count 4.9 # Test 11/26/16 12:00 Bedside Glucose 119 Medications Medications Current Medications Ondansetron HCl (Zofran Inj) 4 mg Q6H PRN IV NAUSEA AND/OR VOMITING; Start at 01:30 Acetaminophen (Tylenol Liquid) 650 mg Q6H PRN GTB ELEVATED TEMPERATURE Last administered on 11/25/16t 06:18; Admin Dose 650 MG; Start 11/16/16 at 01:30 Baclofen (Lioresal) 20 mg TID GTB Last administered on 11/26/16 08:55; Admin Dose 20 MG; Start 11/16/16 at 09:00 Magnesium Oxide (Mag-Ox 400) 400 mg BID GTB Last administered on 11/26/16 08: 54; Admin Dose 400 MG; Start 11/16/16 at 09:00 Lansoprazole (Prevacid) 30 mg DAILY@06 GTB Last administered on 11/23/16 05:33 ; Admin Dose 30 MG; Start 11/16/16 at 06:00; Status Future Hold Simethicone (Mylicon) 160 mg DAILY PRN GTB DISTENSION/GAS/BLOATING Last administered on 11/18/16 12:30; Admin Dose 160 MG; Start 11/16/16 at 01:30 Zinc Sulfate (Zinc Sulfate) 220 mg DAILY GTB Last administered on 11/26/16 08: 54; Admin Dose 220 MG; Start 11/16/16 at 09:00 Diphenhydramine HCl (Benadryl Liquid Cup) 25 mg Q6H PRN GTB ITCHING; Start at 02:00 Clonidine (Catapres) 0.1 mg Q6H PRN GTB SBP >160; Start 11/16/16 at 02:06 Miscellaneous Information 1 ea NOTE XX ; Start 11/16/16 at 11:30 Glucose (Glutose) 15 gm Q15M PRN PO DECREASED GLUCOSE; Start 11/16/16 at 11:30 Glucose (Glutose) 22.5 gm Q15M PRN PO DECREASED GLUCOSE; Start 11/16/16 at 11: 30 Dextrose (D50w Syringe) 25 ml Q15M PRN IV DECREASED GLUCOSE; Start 11/16/16 at 11:30 Dextrose (D50w Syringe) 50 ml Q15M PRN IV DECREASED GLUCOSE; Start 11/16/16 at 11:30 Glucagon (Glucagen) 1 mg Q15M PRN IM DECREASED GLUCOSE; Start 11/16/16 at 11:30 Glucose (Glutose) 15 gm Q15M PRN BUCCAL DECREASED GLUCOSE; Start 11/16/16 at 11 :30 Collagenase (Santyl) 1 applic DAILY TOP Last administered on 11/26/16 08:56; Admin Dose 1 APPLIC; Start 11/17/16 at 09:00 Diphenhydramine HCl (Benadryl) 50 mg Q6H PRN IV ALLERGIC REACTION Last administered on 11/17/16 22:51; Admin Dose 50 MG; Start 11/17/16 at 16:30 Magnesium Hydroxide (Milk Of Mag) 30 ml DAILY PRN PO CONSTIPATION Last administered on 11/26/16 08:55; Admin Dose 30 ML; Start 11/18/16 at 00:30 Ibuprofen (Motrin) 600 mg Q6H PRN PO PAIN OR TEMP ABOVE 38C Last administered on 11/24/16 22:26; Admin Dose 600 MG; Start 11/20/16 at 13:00 Linezolid (Zyvox) 600 mg BID PO Last administered on 11/26/16 08:54; Admin Dose 600 MG; Start 11/20/16 at 21:00 Polyethylene Glycol (Miralax) 17 gm DAILY NGT Last administered on 11/26/16 08 :55; Admin Dose 17 GM; Start 11/23/16 at 09:00 Heparin Sodium (Porcine) (Heparin (5000 Units/0.5 ml)) 5,000 unit BID SC Last administered on 11/26/16 09:00; Admin Dose 5,000 UNIT; Start 11/22/16 at 21:00 Metronidazole (Flagyl) 500 mg Q8 PO Last administered on 11/26/16 05:01; Admin Dose 500 MG; Start 11/23/16 at 14:00 Fluconazole 100 mg 100 mg DAILY GTB Last administered on 11/26/16 08:55; Admin Dose 100 MG; Start 11/23/16 at 14:00 Dextrose (D5W) 1,000 ml @ 125 mls/hr Q8H IV Last administered on 11/26/16 05: 03; Admin Dose 125 MLS/HR; Start 11/24/16 at 10:00 Lactulose (Enulose) 20 gm Q6 GTB Last administered on 11/26/16 05:01; Admin Dose 20 GM; Start 11/24/16 at 12:00; Stop 11/26/16 at 14:00 Diltiazem HCl (Cardizem) 30 mg Q8 PEG Last administered on 11/26/16 05:02; Admin Dose 30 MG; Start 11/24/16 at 14:00 Metoprolol Tartrate (Lopressor) 25 mg BID PO Last administered on 11/25/16 08: 17; Admin Dose 25 MG; Start 11/24/16 at 13:30 Metoprolol Tartrate (Lopressor) 5 mg Q4H PRN IV HR>110 Hold SBP<100; Start at 13:30 Insulin Aspart NOVOLOG *MODERATE* ALGORITHM Q4 SC Last administered on 21:19; Admin Dose 1 UNIT; Start 11/25/16 at 12:00 Cefepime HCl (Maxipime 1gm/50 ml (Pmx)) 50 ml @ 100 mls/hr Q24H IVPB Last administered on 11/25/16 13:34; Admin Dose 100 MLS/HR; Start 11/25/16 at 14:00 Loratadine (Claritin) 10 mg DAILY PO Last administered on 11/26/16 08:54; Admin Dose 10 MG; Start 11/25/16 at 13:00 Desmopressin Acetate (Ddavp) 2 mcg BID SC Last administered on 11/26/16 08:57 ; Admin Dose 2 MCG; Start 11/25/16 at 21:00 Famotidine (Pepcid Iv) 20 mg DAILY IV Last administered on 11/26/16 08:54; Admin Dose 20 MG; Start 11/26/16 at 09:00 Insulin Glargine 35 unit 35 unit DAILY@08 SC Last administered on 11/26/16 09: 00; Admin Dose 35 UNIT; Start 11/26/16 at 08:00 Potassium Chloride (KCl 40 MEQ/250 ML NS) 250 ml @ 62.5 mls/hr Q4H IVPB ; Start 11/26/16 at 13:00; Stop 11/26/16 at 20:59 Lactulose (Enulose) 20 gm Q12H GTB ; Start 11/26/16 at 18:00 ARYAN COLLADO Nov 26, 2016 12:05
[2016-11-26] MEDS: POTASSIUM CHLORIDE 250 ML IVPB SCH ×2 (14:02→17:25)
[2016-11-26] MEDS: CEFEPIME 1GM/50 ML (PMX) 50 ML IVPB SCH (14:03)
--- NOTE | 2016-11-26 14:47 | CONS ---
Date/Time of Note Date/Time of Note DATE: 11/26/16 TIME: 14:44 Assessment/Plan Assessment/Plan Additional Assessment/Plan 1. Tachyarrhythmia with telemetry, most consistent with sinus tachycardia at this time, but will continue to assess for true SVT given high rapid rate- SINUS rhythm at low 100s now, will monitor clinically. 2. Abnormal electrocardiogram, assess for acute coronary syndrome- no CP now, con't med Rx. 3. Hypertension under reasonable control- med Rx in place. - BP on low side ? infection related -with tach,on anti-bx now 4. Vent dependent respiratory failure.- satble, con't resp RX 5. Extended-spectrum beta-lactamase urinary tract infection- on anti-Bx, ID follows 6. Diabetes mellitus - keep euglycemic 7. Anemia - H/H stable, no bleeding noted 8. Sacral ulcer. 9 Hypernatremia. 10. Constipation. 11. Possible hyperthyroid state by labs Consultation Date/Type/Reason Admit Date/Time Nov 15, 2016 at 22:42 Initial Consult Date 11/18/16 Type of Consultation: Pulmonary 24 HR Interval Summary Free Text/Dictation No acute change - increased HR with decrease BP-on anti-Bx, con't med rx ROS: No fever, no chills, no nausea, no vomiting, no diarrhea/constipation No recent weight changes No chest pain, no PND, no orthopnea No dizziness, blurred vision No thirst, no heat or cold intolerance Exam/Review of Systems Vital Signs Vitals Vital Signs Date Time Temp Pulse Resp B/P Pulse Ox O2 Delivery O2 Flow Rate FiO2 11/26/16 13:00 103 22 100 30 11/26/16 11:41 98.0 88/54 11/24/16 21:00 Mechanical Ventilator Intake and Output 11/25/16 11/25/16 11/26/16 15:00 23:00 07:00 Intake Total 1050 ml 1500 ml Output Total 400 ml Balance 650 ml 1500 ml Exam ROS: No fever, no chills, no nausea, no vomiting, no diarrhea/constipation No recent weight changes No chest pain, no PND, no orthopnea No dizziness, blurred vision No thirst, no heat or cold intolerance (per nurse, labored breathing) .General: WN/WD/NAD, AOx 0 HEENT: Unicetric/atraumatic/EOMI (does not follow commands) NECK: JVD elevated, no thyromegaly, trach Lymph: no lymphadenopathy HEART: regular with no S3, II/ systolic murmur at apex LUNGS: Coarse sounds ABD: soft, NT, ND, +BS : Intact Neuro: non focal SKIN: chronic changes EXT: trace edema Results Result Diagram: 11/26/16 0615 11/26/16 0605 Results 24 hrs Laboratory Tests Test 11/25/16 17:05 11/25/16 20:19 11/25/16 23:55 11/26/16 04:18 Bedside Glucose 170 206 169 115 Test 11/26/16 06:05 11/26/16 06:15 11/26/16 07:46 11/26/16 12:00 Anion Gap 16 Blood Urea Nitrogen 36 H Calcium Level 8.5 Carbon Dioxide Level 21 Chloride Level 102 Creatinine 1.26 H Glucose Level 100 # Potassium Level 3.0 L Sodium Level 136 Basophils # 0.0 Basophils % 0.2 Eosinophils # 0.4 Eosinophils % 8.1 H Hematocrit 26.9 L Hemoglobin 8.3 L Lymphocytes # 1.0 Lymphocytes % 20.2 Mean Corpuscular Hemoglobin 27.7 L Mean Corpuscular Hemoglobin Concent 30.9 L Mean Corpuscular Volume 89.7 Mean Platelet Volume 11.2 H Monocytes # 0.3 Monocytes % 5.1 Neutrophils # 3.2 Neutrophils % 65.4 Nucleated Red Blood Cells # 0.0 Nucleated Red Blood Cells % 0.0 Platelet Count 248 Red Blood Count 3.00 L Red Cell Distribution Width 16.9 H White Blood Count 4.9 # Bedside Glucose 98 119 Medications Medications Current Medications Ondansetron HCl (Zofran Inj) 4 mg Q6H PRN IV NAUSEA AND/OR VOMITING; Start at 01:30 Acetaminophen (Tylenol Liquid) 650 mg Q6H PRN GTB ELEVATED TEMPERATURE Last administered on 11/25/16 06:18; Admin Dose 650 MG; Start 11/16/16 at 01:30 Baclofen (Lioresal) 20 mg TID GTB Last administered on 11/26/16 14:02; Admin Dose 20 MG; Start 11/16/16 at 09:00 Magnesium Oxide (Mag-Ox 400) 400 mg BID GTB Last administered on 11/26/16 08: 54; Admin Dose 400 MG; Start 11/16/16 at 09:00 Lansoprazole (Prevacid) 30 mg DAILY@06 GTB Last administered on 11/23/16 05:33 ; Admin Dose 30 MG; Start 11/16/16 at 06:00; Status Future Hold Simethicone (Mylicon) 160 mg DAILY PRN GTB DISTENSION/GAS/BLOATING Last administered on 11/18/16 12:30; Admin Dose 160 MG; Start 11/16/16 at 01:30 Zinc Sulfate (Zinc Sulfate) 220 mg DAILY GTB Last administered on 11/26/16 08: 54; Admin Dose 220 MG; Start 11/16/16 at 09:00 Diphenhydramine HCl (Benadryl Liquid Cup) 25 mg Q6H PRN GTB ITCHING; Start at 02:00 Clonidine (Catapres) 0.1 mg Q6H PRN GTB SBP >160; Start 11/16/16 at 02:06 Miscellaneous Information 1 ea NOTE XX ; Start 11/16/16 at 11:30 Glucose (Glutose) 15 gm Q15M PRN PO DECREASED GLUCOSE; Start 11/16/16 at 11:30 Glucose (Glutose) 22.5 gm Q15M PRN PO DECREASED GLUCOSE; Start 11/16/16 at 11: 30 Dextrose (D50w Syringe) 25 ml Q15M PRN IV DECREASED GLUCOSE; Start 11/16/16 at 11:30 Dextrose (D50w Syringe) 50 ml Q15M PRN IV DECREASED GLUCOSE; Start 11/16/16 at 11:30 Glucagon (Glucagen) 1 mg Q15M PRN IM DECREASED GLUCOSE; Start 11/16/16 at 11:30 Glucose (Glutose) 15 gm Q15M PRN BUCCAL DECREASED GLUCOSE; Start 11/16/16 at 11 :30 Collagenase (Santyl) 1 applic DAILY TOP Last administered on 11/26/16 08:56; Admin Dose 1 APPLIC; Start 11/17/16 at 09:00 Diphenhydramine HCl (Benadryl) 50 mg Q6H PRN IV ALLERGIC REACTION Last administered on 11/17/16 22:51; Admin Dose 50 MG; Start 11/17/16 at 16:30 Magnesium Hydroxide (Milk Of Mag) 30 ml DAILY PRN PO CONSTIPATION Last administered on 11/26/16 08:55; Admin Dose 30 ML; Start 11/18/16 at 00:30 Ibuprofen (Motrin) 600 mg Q6H PRN PO PAIN OR TEMP ABOVE 38C Last administered on 11/24/16 22:26; Admin Dose 600 MG; Start 11/20/16 at 13:00 Linezolid (Zyvox) 600 mg BID PO Last administered on 11/26/16 08:54; Admin Dose 600 MG; Start 11/20/16 at 21:00 Polyethylene Glycol (Miralax) 17 gm DAILY NGT Last administered on 11/26/16 08 :55; Admin Dose 17 GM; Start 11/23/16 at 09:00 Heparin Sodium (Porcine) (Heparin (5000 Units/0.5 ml)) 5,000 unit BID SC Last administered on 11/26/16 09:00; Admin Dose 5,000 UNIT; Start 11/22/16 at 21:00 Metronidazole (Flagyl) 500 mg Q8 PO Last administered on 11/26/16 14:04; Admin Dose 500 MG; Start 11/23/16 at 14:00 Fluconazole 100 mg 100 mg DAILY GTB Last administered on 11/26/16 08:55; Admin Dose 100 MG; Start 11/23/16 at 14:00 Dextrose (D5W) 1,000 ml @ 125 mls/hr Q8H IV Last administered on 11/26/16 14: 04; Admin Dose 125 MLS/HR; Start 11/24/16 at 10:00 Diltiazem HCl (Cardizem) 30 mg Q8 PEG Last administered on 11/26/16 05:02; Admin Dose 30 MG; Start 11/24/16 at 14:00 Metoprolol Tartrate (Lopressor) 25 mg BID PO Last administered on 11/25/16 08: 17; Admin Dose 25 MG; Start 11/24/16 at 13:30 Metoprolol Tartrate (Lopressor) 5 mg Q4H PRN IV HR>110 Hold SBP<100; Start at 13:30 Insulin Aspart NOVOLOG *MODERATE* ALGORITHM Q4 SC Last administered on 21:19; Admin Dose 1 UNIT; Start 11/25/16 at 12:00 Cefepime HCl (Maxipime 1gm/50 ml (Pmx)) 50 ml @ 100 mls/hr Q24H IVPB Last administered on 11/26/16 14:03; Admin Dose 100 MLS/HR; Start 11/25/16 at 14:00 Loratadine (Claritin) 10 mg DAILY PO Last administered on 11/26/16 08:54; Admin Dose 10 MG; Start 11/25/16 at 13:00 Desmopressin Acetate (Ddavp) 2 mcg BID SC Last administered on 11/26/16 08:57 ; Admin Dose 2 MCG; Start 11/25/16 at 21:00 Famotidine (Pepcid Iv) 20 mg DAILY IV Last administered on 11/26/16 08:54; Admin Dose 20 MG; Start 11/26/16 at 09:00 Insulin Glargine 35 unit 35 unit DAILY@08 SC Last administered on 11/26/16 09: 00; Admin Dose 35 UNIT; Start 11/26/16 at 08:00 Potassium Chloride (KCl 40 MEQ/250 ML NS) 250 ml @ 62.5 mls/hr Q4H IVPB Last administered on 11/26/16 14:02; Admin Dose 62.5 MLS/HR; Start 11/26/16 at 13:00 ; Stop 11/26/16 at 20:59 Lactulose (Enulose) 20 gm Q12H GTB ; Start 11/26/16 at 18:00 MI RICHMOND MD Nov 26, 2016 14:47
[2016-11-26 14:52] LABS: CALCIUM 8.3 mg/dl (8.4-10.2)
[2016-11-26 15:01] LABS: POTASSIUM 2.8 mmol/L (3.5-5.1)
[2016-11-27] VITALS (23 sets, daily range): BP systolic 83–131; BP diastolic 55–82; PULSE 86–112; RESP 15–26
[2016-11-27] MEDS: METOPROLOL 25 MG TAB PO SCH ×4 (01:16→19:55)
[2016-11-27] MEDS: LACTULOSE 30ML CUP GTB SCH ×2 (03:14→18:00)
[2016-11-27] MEDS: ACETAMINOPHEN 650MG/20.3ML CUP GTB PRN (04:59)
[2016-11-27] MEDS: DILTIAZEM 30 MG TAB PEG SCH ×3 (05:00→19:56)
[2016-11-27] MEDS: metroNIDAZOLE 500 MG TAB PO SCH ×3 (05:00→20:39)
[2016-11-27] MEDS: INSULIN ASPART [NOVOLOG] 3 ML PEN SC SCH ×4 (05:02→23:10)
[2016-11-27] MEDS: DEXTROSE 5% 1,000 ML IV SCH (05:45)
[2016-11-27 07:23] LABS: ADD SCAN DIFF NO
[2016-11-27 07:27] LABS: BASOPHILS % 0.2 % (0.0-2.0); EOSINOPHILS # 0.3 10^3/ul (0.0-0.5); EOSINOPHILS % 5.5 % (0.0-7.0); HEMATOCRIT 25.8 % (37.0-47.0); HEMOGLOBIN 8.4 g/dl (12.0-16.0); LYMPHOCYTES # 0.8 10^3/ul (0.8-2.9); LYMPHOCYTES % 14.5 % (15.0-51.0); MEAN CORPUSCULAR HGB CONC 32.6 g/dl (32.0-37.0); MEAN PLATELET VOLUME 11.4 fl (7.4-10.4); MONOCYTE # 0.3 10^3/ul (0.3-0.9); MONOCYTES % 5.4 % (0.0-11.0); NEUTROPHIL # 4.3 10^3/ul (1.6-7.5); NEUTROPHILS % 73.5 % (39.0-77.0); PLATELET COUNT 265 10^3/UL (140-415); RED CELL DISTRIBUTION WIDTH 15.9 % (11.5-14.5); WHITE BLOOD COUNT 5.8 10^3/ul (4.8-10.8)
[2016-11-27 07:44] LABS: POTASSIUM 3.6 mmol/L (3.5-5.1)
[2016-11-27 07:47] LABS: CREATININE 0.72 mg/dl (0.44-1.00)
[2016-11-27 07:48] LABS: CALCIUM 8.8 mg/dl (8.4-10.2)
[2016-11-27] MEDS: INSULIN GLARGINE [LANtus] 3 ML PEN SC SCH ×2 (08:38→12:55)
[2016-11-27] MEDS: POLYETHYLENE GLYCOL 17 GM PACKET NGT SCH (09:00)
[2016-11-27] MEDS: TOBRAMYCIN/0.25NS 300 MG/5 ML INHAL NEB SCH ×2 (09:09→19:50)
[2016-11-27] MEDS: FAMOTIDINE 20 MG INJ IV SCH (10:05)
[2016-11-27] MEDS: ZYVOX 600 MG TAB PO SCH ×2 (10:05→20:39)
[2016-11-27] MEDS: COLLAGENASE 30 GM TUBE TOP SCH (10:05)
[2016-11-27] MEDS: FLUCONAZOLE 100 MG TAB GTB SCH (10:05)
[2016-11-27] MEDS: BACLOFEN 10 MG TAB GTB SCH ×3 (10:05→20:39)
[2016-11-27] MEDS: ZINC SULFATE 220 MG CAP GTB SCH (10:06)
[2016-11-27] MEDS: MAGNESIUM OXIDE 400 MG TAB GTB SCH ×2 (10:06→20:41)
[2016-11-27] MEDS: LORATADINE 10 MG TAB PO SCH (10:06)
[2016-11-27] MEDS: HEPARIN 5,000 UNIT/0.5 ML SYG SC SCH ×2 (10:09→20:44)
--- NOTE | 2016-11-27 10:35 | PN ---
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 * this has severely affected at least 2 of patient's children * Actual diagnosis is not clear, but per reports patient was diagnosed with MS * Daughter requesting possible genetic testing Chronic resp failure Ventilator dependent via trach Intractable Sepsis 11/03 * MDR Pseudomonas HCAP * ESBL K pneumo / Pseudomonas UTI Chronic dysphagia s/p PEG tube * tube feedings on hold for mild ileus 2.7 mm Pulmonary perihilar nodule Acute renal insufficiency Upper ext fracture * s/p splint Bilateral Staghorn calculi DM 2 : suboptimal control Severe Anemia of chronic disease s/p transfusion Stage 4 sacral ulcer Hypernatremia: improved Severe constipation with impacted stool: resolved DNR PLAN: * D/c DDAVP as hypernatremia has resolved * d/c D51/2 * reduce metoprolol to 12.5 if ok with cardiology for mild hypotension * Continue Abx per ID * adjust Lantus for improved control * Continue tube feeds at new regimen with new goal, DO NOT MODIFY except ordered by MD * Continue wound care and frequent turns * Continue all supportive care * 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 * Fever is improving, plan to d/c back to NH in 1-2 days once 24hr fever free. PROPHYLAXIS: Heparin, closely monitor hgb / PPI Subjective 24 Hr Interval Summary Free Text/Dictation Patient seen and examined. Nursing reports no acute overnight events. Subjective hx not possible: pt non-verbal Exam/Review of Systems Vital Signs Vitals Vital Signs Date Time Temp Pulse Resp B/P Pulse Ox O2 Delivery O2 Flow Rate FiO2 11/27/16 09:05 90 25 99 30 11/27/16 08:09 98.8 87/55 11/24/16 21:00 Mechanical Ventilator Intake and Output 11/26/16 11/26/16 11/27/16 15:00 23:00 07:00 Intake Total 1550 ml 1600 ml Output Total 1000 ml 1600 ml Balance 550 ml 0 ml Exam Constitutional: frail, non-verbal, other (vegetative), No alert, No oriented Psych: No nl mood/affect Head: normocephalic ENMT: other (trach to vent) Respiratory: diminished breath sounds Cardiovascular: No murmurs/extra sounds, No regular rate and rhythm Gastrointestinal: bowel sounds (hypoactive), less distended, soft Musculoskeletal: other (daniel foot drop, functional quadriplegia, severe msc wasting) Neurological: unresponsive, No nl mental status Results Result Diagram: 11/27/16 0545 11/27/16 0545 Results 24 hrs Laboratory Tests Test 11/26/16 12:00 11/26/16 14:20 11/26/16 17:24 11/26/16 23:32 Bedside Glucose 119 150 182 Anion Gap 14 Blood Urea Nitrogen 29 H Calcium Level 8.3 L Carbon Dioxide Level 22 Chloride Level 99 Creatinine 1.00 Glucose Level 120 Potassium Level 2.8 *L Sodium Level 132 L Test 11/27/16 04:53 11/27/16 05:45 11/27/16 07:42 Bedside Glucose 192 220 Anion Gap 18 H Basophils # 0.0 Basophils % 0.2 Blood Urea Nitrogen 16 # Calcium Level 8.8 Carbon Dioxide Level 19 L Chloride Level 98 Creatinine 0.72 Eosinophils # 0.3 Eosinophils % 5.5 Glucose Level 194 Hematocrit 25.8 L Hemoglobin 8.4 L Lymphocytes # 0.8 Lymphocytes % 14.5 L Mean Corpuscular Hemoglobin 28.0 L Mean Corpuscular Hemoglobin Concent 32.6 Mean Corpuscular Volume 86.0 Mean Platelet Volume 11.4 H Monocytes # 0.3 Monocytes % 5.4 Neutrophils # 4.3 Neutrophils % 73.5 Nucleated Red Blood Cells # 0.0 Nucleated Red Blood Cells % 0.0 Platelet Count 265 Potassium Level 3.6 Red Blood Count 3.00 L Red Cell Distribution Width 15.9 H Sodium Level 131 L White Blood Count 5.8 Medications Medications Current Medications Ondansetron HCl (Zofran Inj) 4 mg Q6H PRN IV NAUSEA AND/OR VOMITING; Start at 01:30 Acetaminophen (Tylenol Liquid) 650 mg Q6H PRN GTB ELEVATED TEMPERATURE Last administered on 11/27/16 04:59; Admin Dose 650 MG; Start 11/16/16 at 01:30 Baclofen (Lioresal) 20 mg TID GTB Last administered on 11/27/16 10:05; Admin Dose 20 MG; Start 11/16/16 at 09:00 Magnesium Oxide (Mag-Ox 400) 400 mg BID GTB Last administered on 11/27/16 10: 06; Admin Dose 400 MG; Start 11/16/16 at 09:00 Lansoprazole (Prevacid) 30 mg DAILY@06 GTB Last administered on 11/23/16 05:33 ; Admin Dose 30 MG; Start 11/16/16 at 06:00; Status Future Hold Simethicone (Mylicon) 160 mg DAILY PRN GTB DISTENSION/GAS/BLOATING Last administered on 11/18/16 12:30; Admin Dose 160 MG; Start 11/16/16 at 01:30 Zinc Sulfate (Zinc Sulfate) 220 mg DAILY GTB Last administered on 11/27/16 10: 06; Admin Dose 220 MG; Start 11/16/16 at 09:00 Diphenhydramine HCl (Benadryl Liquid Cup) 25 mg Q6H PRN GTB ITCHING; Start at 02:00 Clonidine (Catapres) 0.1 mg Q6H PRN GTB SBP >160; Start 11/16/16 at 02:06 Miscellaneous Information 1 ea NOTE XX ; Start 11/16/16 at 11:30 Glucose (Glutose) 15 gm Q15M PRN PO DECREASED GLUCOSE; Start 11/16/16 at 11:30 Glucose (Glutose) 22.5 gm Q15M PRN PO DECREASED GLUCOSE; Start 11/16/16 at 11: 30 Dextrose (D50w Syringe) 25 ml Q15M PRN IV DECREASED GLUCOSE; Start 11/16/16 at 11:30 Dextrose (D50w Syringe) 50 ml Q15M PRN IV DECREASED GLUCOSE; Start 11/16/16 at 11:30 Glucagon (Glucagen) 1 mg Q15M PRN IM DECREASED GLUCOSE; Start 11/16/16 at 11:30 Glucose (Glutose) 15 gm Q15M PRN BUCCAL DECREASED GLUCOSE; Start 11/16/16 at 11 :30 Collagenase (Santyl) 1 applic DAILY TOP Last administered on 11/27/16 10:05; Admin Dose 1 APPLIC; Start 11/17/16 at 09:00 Diphenhydramine HCl (Benadryl) 50 mg Q6H PRN IV ALLERGIC REACTION Last administered on 11/17/16 22:51; Admin Dose 50 MG; Start 11/17/16 at 16:30 Magnesium Hydroxide (Milk Of Mag) 30 ml DAILY PRN PO CONSTIPATION Last administered on 11/26/16 08:55; Admin Dose 30 ML; Start 11/18/16 at 00:30 Ibuprofen (Motrin) 600 mg Q6H PRN PO PAIN OR TEMP ABOVE 38C Last administered on 11/24/16 22:26; Admin Dose 600 MG; Start 11/20/16 at 13:00 Linezolid (Zyvox) 600 mg BID PO Last administered on 11/27/16 10:05; Admin Dose 600 MG; Start 11/20/16 at 21:00 Polyethylene Glycol (Miralax) 17 gm DAILY NGT Last administered on 11/27/16 09 :00; Admin Dose 17 GM; Start 11/23/16 at 09:00 Heparin Sodium (Porcine) (Heparin (5000 Units/0.5 ml)) 5,000 unit BID SC Last administered on 11/27/16 10:09; Admin Dose 5,000 UNIT; Start 11/22/16 at 21:00 Metronidazole (Flagyl) 500 mg Q8 PO Last administered on 11/27/16 05:00; Admin Dose 500 MG; Start 11/23/16 at 14:00 Fluconazole 100 mg 100 mg DAILY GTB Last administered on 11/27/16 10:05; Admin Dose 100 MG; Start 11/23/16 at 14:00 Dextrose (D5W) 1,000 ml @ 125 mls/hr Q8H IV Last administered on 11/26/16 23: 34; Admin Dose 125 MLS/HR; Start 11/24/16 at 10:00 Diltiazem HCl (Cardizem) 30 mg Q8 PEG Last administered on 11/27/16 05:00; Admin Dose 30 MG; Start 11/24/16 at 14:00 Metoprolol Tartrate (Lopressor) 25 mg BID PO Last administered on 11/27/16 01: 16; Admin Dose 25 MG; Start 11/24/16 at 13:30 Metoprolol Tartrate 5 mg 5 mg Q4H PRN IV HR>110 Hold SBP<100; Start 11/24/16 at 13:30 Cefepime HCl (Maxipime 1gm/50 ml (Pmx)) 50 ml @ 100 mls/hr Q24H IVPB Last administered on 11/26/16 14:03; Admin Dose 100 MLS/HR; Start 11/25/16 at 14:00 Loratadine (Claritin) 10 mg DAILY PO Last administered on 11/27/16 10:06; Admin Dose 10 MG; Start 11/25/16 at 13:00 Desmopressin Acetate (Ddavp) 2 mcg BID SC Last administered on 11/26/16 20:08 ; Admin Dose 2 MCG; Start 11/25/16 at 21:00 Famotidine (Pepcid Iv) 20 mg DAILY IV Last administered on 11/27/16 10:05; Admin Dose 20 MG; Start 11/26/16 at 09:00 Insulin Glargine (Lantus) 35 unit DAILY@08 SC Last administered on 11/27/16 08 :38; Admin Dose 35 UNIT; Start 11/26/16 at 08:00 Lactulose (Enulose) 20 gm Q12H GTB Last administered on 11/26/16 18:47; Admin Dose 20 GM; Start 11/26/16 at 18:00 Insulin Aspart (Novolog Insulin Pen) NOVOLOG *MODERATE* ALGORITHM Q6 SC Last administered on 11/27/16 05:02; Admin Dose 1 UNIT; Start 11/27/16 at 00:00 DIVINE PERKINS Nov 27, 2016 10:35
--- NOTE | 2016-11-27 14:46 | CONS ---
Date/Time of Note Date/Time of Note DATE: 11/27/16 TIME: 14:43 Assessment/Plan Assessment/Plan Chief Complaint/Hosp Course Patient is a 56-year-old lady who was admitted for treatment of sepsis as well as anemia. Pulmonary consultation obtained for management of respiratory failure. Patient on mechanical ventilation chronically due to underlying severe multiple sclerosis. History present illness; 6-year-old lady admitted for treatment of severe sepsis as well as anemia. She was obtained from medical records as the patient is unable to give any history whatsoever by herself. The time I saw the patient the patient is on mechanical ventilation via tracheostomy patient is unresponsive. Patient on medical records, the patient has remained hemodynamically stable. Past medical history; 1. History of severe multiple sclerosis ventilator dependent. 2. History of multiple episodes of UTI. 3. Status post G-tube and tracheostomy. 4. Decubitus ulcers. Next Medications; were reviewed. Allergies; are to cephalosporins, penicillins, Levaquin and vancomycin. Social history; noncontributory. Family history; not available. Occupational history; patient is disabled. Review of systems; currently unable to be obtained. General examination; middle aged woman, on ventilator via tracheostomy unresponsive. Currently in no distress. Problems: Additional Assessment/Plan Assessment and recommendations; 1. Patient admitted with sepsis due to sacral decubitus wound currently on antibiotic regimen as well as wound debridement. 2. History of advanced multiple sclerosis with severe encephalopathy. 3. Chronic respiratory failure, patient ventilator dependent. Next Continue current supportive care. Prognosis is poor. Consultation Date/Type/Reason Admit Date/Time Nov 15, 2016 at 22:42 Initial Consult Date 11/18/16 Type of Consultation: Pulmonary 24 HR Interval Summary Free Text/Dictation Patient condition remains stable. Remains ventilator dependent. Remains unresponsive. This is her underlying mental status due to advanced multiple sclerosis. General examination; middle-aged woman, on ventilator via tracheostomy unresponsive. Currently in no distress. Exam/Review of Systems Vital Signs Vitals Vital Signs Date Time Temp Pulse Resp B/P Pulse Ox O2 Delivery O2 Flow Rate FiO2 11/27/16 12:45 90 11/27/16 11:16 98.6 20 109/71 100 11/27/16 11:15 30 11/24/16 21:00 Mechanical Ventilator Intake and Output 11/26/16 11/26/16 11/27/16 15:00 23:00 07:00 Intake Total 1550 ml 1600 ml Output Total 1000 ml 1600 ml Balance 550 ml 0 ml Exam HEENT examination; supple neck, no JVD. No lymphadenopathy. Tracheostomy in place. Insertion site is clean. No neck masses. Chest examination; clear to auscultation bilaterally. S1-S2 audible, no murmurs. Regular rhythm. Abdomen examination; soft, G-tube in place. Bowel sounds audible. No organomegaly. Extremity examination; no peripheral edema. Back examination; there is a dressing applied over the sacral area. 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 Results Result Diagram: 11/27/16 0545 11/27/16 0545 Results 24 hrs Laboratory Tests Test 11/26/16 17:24 11/26/16 23:32 11/27/16 04:53 11/27/16 05:45 Bedside Glucose 150 182 192 Anion Gap 18 H Basophils # 0.0 Basophils % 0.2 Blood Urea Nitrogen 16 # Calcium Level 8.8 Carbon Dioxide Level 19 L Chloride Level 98 Creatinine 0.72 Eosinophils # 0.3 Eosinophils % 5.5 Glucose Level 194 Hematocrit 25.8 L Hemoglobin 8.4 L Lymphocytes # 0.8 Lymphocytes % 14.5 L Mean Corpuscular Hemoglobin 28.0 L Mean Corpuscular Hemoglobin Concent 32.6 Mean Corpuscular Volume 86.0 Mean Platelet Volume 11.4 H Monocytes # 0.3 Monocytes % 5.4 Neutrophils # 4.3 Neutrophils % 73.5 Nucleated Red Blood Cells # 0.0 Nucleated Red Blood Cells % 0.0 Platelet Count 265 Potassium Level 3.6 Red Blood Count 3.00 L Red Cell Distribution Width 15.9 H Sodium Level 131 L White Blood Count 5.8 Test 11/27/16 07:42 11/27/16 12:01 Bedside Glucose 220 182 Medications Medications Current Medications Ondansetron HCl (Zofran Inj) 4 mg Q6H PRN IV NAUSEA AND/OR VOMITING; Start at 01:30 Acetaminophen (Tylenol Liquid) 650 mg Q6H PRN GTB ELEVATED TEMPERATURE Last administered on 11/27/16 04:59; Admin Dose 650 MG; Start 11/16/16 at 01:30 Baclofen (Lioresal) 20 mg TID GTB Last administered on 11/27/16 10:05; Admin Dose 20 MG; Start 11/16/16 at 09:00 Magnesium Oxide (Mag-Ox 400) 400 mg BID GTB Last administered on 11/27/16 10: 06; Admin Dose 400 MG; Start 11/16/16 at 09:00 Lansoprazole (Prevacid) 30 mg DAILY@06 GTB Last administered on 11/23/16 05:33 ; Admin Dose 30 MG; Start 11/16/16 at 06:00; Status Future Hold Simethicone (Mylicon) 160 mg DAILY PRN GTB DISTENSION/GAS/BLOATING Last administered on 11/18/16 12:30; Admin Dose 160 MG; Start 11/16/16 at 01:30 Zinc Sulfate (Zinc Sulfate) 220 mg DAILY GTB Last administered on 11/27/16 10: 06; Admin Dose 220 MG; Start 11/16/16 at 09:00 Diphenhydramine HCl (Benadryl Liquid Cup) 25 mg Q6H PRN GTB ITCHING; Start at 02:00 Clonidine (Catapres) 0.1 mg Q6H PRN GTB SBP >160; Start 11/16/16 at 02:06 Miscellaneous Information 1 ea NOTE XX ; Start 11/16/16 at 11:30 Glucose (Glutose) 15 gm Q15M PRN PO DECREASED GLUCOSE; Start 11/16/16 at 11:30 Glucose (Glutose) 22.5 gm Q15M PRN PO DECREASED GLUCOSE; Start 11/16/16 at 11: 30 Dextrose (D50w Syringe) 25 ml Q15M PRN IV DECREASED GLUCOSE; Start 11/16/16 at 11:30 Dextrose (D50w Syringe) 50 ml Q15M PRN IV DECREASED GLUCOSE; Start 11/16/16 at 11:30 Glucagon (Glucagen) 1 mg Q15M PRN IM DECREASED GLUCOSE; Start 11/16/16 at 11:30 Glucose (Glutose) 15 gm Q15M PRN BUCCAL DECREASED GLUCOSE; Start 11/16/16 at 11 :30 Collagenase (Santyl) 1 applic DAILY TOP Last administered on 11/27/16 10:05; Admin Dose 1 APPLIC; Start 11/17/16 at 09:00 Diphenhydramine HCl (Benadryl) 50 mg Q6H PRN IV ALLERGIC REACTION Last administered on 11/17/16 22:51; Admin Dose 50 MG; Start 11/17/16 at 16:30 Magnesium Hydroxide (Milk Of Mag) 30 ml DAILY PRN PO CONSTIPATION Last administered on 11/26/16 08:55; Admin Dose 30 ML; Start 11/18/16 at 00:30 Ibuprofen (Motrin) 600 mg Q6H PRN PO PAIN OR TEMP ABOVE 38C Last administered on 11/24/16 22:26; Admin Dose 600 MG; Start 11/20/16 at 13:00 Linezolid (Zyvox) 600 mg BID PO Last administered on 11/27/16 10:05; Admin Dose 600 MG; Start 11/20/16 at 21:00 Polyethylene Glycol (Miralax) 17 gm DAILY NGT Last administered on 11/27/16 09 :00; Admin Dose 17 GM; Start 11/23/16 at 09:00 Heparin Sodium (Porcine) (Heparin (5000 Units/0.5 ml)) 5,000 unit BID SC Last administered on 11/27/16 10:09; Admin Dose 5,000 UNIT; Start 11/22/16 at 21:00 Metronidazole (Flagyl) 500 mg Q8 PO Last administered on 11/27/16 05:00; Admin Dose 500 MG; Start 11/23/16 at 14:00 Fluconazole (Diflucan) 100 mg DAILY GTB Last administered on 11/27/16 10:05; Admin Dose 100 MG; Start 11/23/16 at 14:00 Diltiazem HCl (Cardizem) 30 mg Q8 PEG Last administered on 11/27/16 05:00; Admin Dose 30 MG; Start 11/24/16 at 14:00 Metoprolol Tartrate 5 mg 5 mg Q4H PRN IV HR>110 Hold SBP<100; Start 11/24/16 at 13:30 Cefepime HCl (Maxipime 1gm/50 ml (Pmx)) 50 ml @ 100 mls/hr Q24H IVPB Last administered on 11/26/16 14:03; Admin Dose 100 MLS/HR; Start 11/25/16 at 14:00 Loratadine (Claritin) 10 mg DAILY PO Last administered on 11/27/16 10:06; Admin Dose 10 MG; Start 11/25/16 at 13:00 Famotidine (Pepcid Iv) 20 mg DAILY IV Last administered on 11/27/16 10:05; Admin Dose 20 MG; Start 11/26/16 at 09:00 Lactulose (Enulose) 20 gm Q12H GTB Last administered on 11/26/16 18:47; Admin Dose 20 GM; Start 11/26/16 at 18:00 Insulin Aspart (Novolog Insulin Pen) NOVOLOG *MODERATE* ALGORITHM Q6 SC Last administered on 11/27/16 12:55; Admin Dose 4 UNIT; Start 11/27/16 at 00:00 Insulin Glargine (Lantus) 35 unit DAILY@08 SC Last administered on 11/27/16 12 :55; Admin Dose 35 UNIT; Start 11/27/16 at 11:30 Metoprolol Tartrate (Lopressor) 12.5 mg BID PO ; Start 11/27/16 at 11:00 ARYAN COLLADO Nov 27, 2016 14:45
[2016-11-27] MEDS: CEFEPIME 1GM/50 ML (PMX) 50 ML IVPB SCH (15:19)
--- NOTE | 2016-11-27 17:05 | CONS ---
Date/Time of Note Date/Time of Note DATE: 11/27/16 TIME: 16:44 Assessment/Plan Assessment/Plan Chief Complaint/Hosp Course ID PROGRESS NOTE CURRENT ABX=> * Cefepime #2.5 -> Replaced Colistin IV * Oral Zyvox #8 * Tobramycin inhalation #5 * Flagyl PO #5 * Fluconazole per G-tube.#5 24H INTERVAL SUMMARY * Clinically status quo == chronic encephalopathy w/hx of advanced MS -> Noncommunicative on the Vent, Afebrile, VSS, NAD * s/p Fever 102.9 on 11/24/16 -- afebrile x72H * NEW URINE CX RESULTED => NOTE: RN Changed FC yesterday = AFTER this sample was obtained on 11/24/16 * Monty: 11/24/16-2319 Rcvd: 11/25/16-241 Source: KOFFI Conroy Descrip: Microbiology URINE CULTURE Preliminary Organism 1 GRAM NEGATIVE GILLES COLONY COUNT >100,000 CFU/ml Organism 2 GRAM NEGATIVE GILLES#2 COLONY COUNT >100,000 CFU/ml Organism 3 GRAM NEGATIVE GILLES#3 COLONY COUNT 10,000 - 20,000 CFU/ml PHYSICAL EXAMINATION: GENERAL: VSS, NAD HEENT: Unremarkable NECK: Supple, trach-> Secure to Vent with scant whitish secretions CHEST: Rise symmetrical, without dyspnea on observation HEART: Pulse RRR ABDOMEN: Soft, Peg EXTREMITIES: Wasted with trace edema. SKIN: With multiple unstageable decubiti. ID ASSESSMENT 56 yo F w/ Advanced multiple sclerosis, encephalopathy, and functional quadriplegia admit with: 1. Severe sepsis with fevers on and off -> Afebrile x 48H 2. Polymicrobial urinary tract infection. * 11/20/16 URINE CX: (+)CRKP + PSAR = MDROs =>BOTH Sensitive to Cefepime * 11/24/16 REPEAT URINE CX: URINE CULTURE Preliminary Organism 1 GRAM NEGATIVE GILLES COLONY COUNT >100,000 CFU/ml Organism 2 GRAM NEGATIVE GILLES#2 COLONY COUNT >100,000 CFU/ml Organism 3 GRAM NEGATIVE GILLES#3 COLONY COUNT 10,000 - 20,000 CFU/ml 3. Multiple unstageable wounds, possibly infected. 4. Acute renal failure. 5. Chronic respiratory failure with sputum culture grew multidrug resistant pseudomonas and Morganella morganii. 6. Diarrhea 7. Fecal impaction. 8. Reported hx of allergy to Cephalosporins = tolerating Cefepime without rash noted = doubt true allergy. ( )MRSA Nares -> INVASIVES: PICC(11/20/16), Trach,PEG, FC (CHANGED 11/26/16), Rectal containment device ABX ALLERGY: PCN, Cephalosporins, Fluoroquinolones, Vanco IV CURRENT ABX: * Cefepime #2.5 -> Replaced Colistin IV * Oral Zyvox #8 * Tobramycin inhalation #5 * Flagyl PO #5 * Fluconazole per G-tube.#5 ID RECOMMENDATIONS 1. Continue current ABX ->NO RASH noted = continue Cefepime = DOUBT true allergy to Cephalosporins 2. Repeat micro 11/24/16 (+)GNR mixed pathogens * Rx today= FOSFOMYCIN 3GM LIQUID GT X1 * RN CHANGED FC yesterday 11/26/16 * Cefepime started 11/25/16 * Clinically NO FEVERS, WBC normalized * F/U ON FINAL URINE MICRO RESULTS STILL PENDING =>Nevertheless, repeat (+) Urine Cx treated w/Fosfomycin + Cefepime Rx URINE CULTURE Preliminary Organism 1 GRAM NEGATIVE GILLES COLONY COUNT >100,000 CFU/ml Organism 2 GRAM NEGATIVE GILLES#2 COLONY COUNT >100,000 CFU/ml Organism 3 GRAM NEGATIVE GILLES#3 COLONY COUNT 10,000 - 20,000 CFU/ml . Problems: Consultation Date/Type/Reason Admit Date/Time Nov 15, 2016 at 22:42 Initial Consult Date 11/18/16 Type of Consultation: ID Exam/Review of Systems Vital Signs Vitals Vital Signs Date Time Temp Pulse Resp B/P Pulse Ox O2 Delivery O2 Flow Rate FiO2 11/27/16 16:04 97.6 109 20 131/82 98 11/27/16 15:10 30 11/24/16 21:00 Mechanical Ventilator Intake and Output 11/26/16 11/26/16 11/27/16 15:00 23:00 07:00 Intake Total 1550 ml 1600 ml Output Total 1000 ml 1600 ml Balance 550 ml 0 ml Results Result Diagram: 11/27/16 0545 11/27/16 0545 Results 24 hrs Laboratory Tests Test 11/26/16 17:24 11/26/16 23:32 11/27/16 04:53 11/27/16 05:45 Bedside Glucose 150 182 192 Anion Gap 18 H Basophils # 0.0 Basophils % 0.2 Blood Urea Nitrogen 16 # Calcium Level 8.8 Carbon Dioxide Level 19 L Chloride Level 98 Creatinine 0.72 Eosinophils # 0.3 Eosinophils % 5.5 Glucose Level 194 Hematocrit 25.8 L Hemoglobin 8.4 L Lymphocytes # 0.8 Lymphocytes % 14.5 L Mean Corpuscular Hemoglobin 28.0 L Mean Corpuscular Hemoglobin Concent 32.6 Mean Corpuscular Volume 86.0 Mean Platelet Volume 11.4 H Monocytes # 0.3 Monocytes % 5.4 Neutrophils # 4.3 Neutrophils % 73.5 Nucleated Red Blood Cells # 0.0 Nucleated Red Blood Cells % 0.0 Platelet Count 265 Potassium Level 3.6 Red Blood Count 3.00 L Red Cell Distribution Width 15.9 H Sodium Level 131 L White Blood Count 5.8 Test 11/27/16 07:42 11/27/16 12:01 Bedside Glucose 220 182 Medications Medications Current Medications Ondansetron HCl (Zofran Inj) 4 mg Q6H PRN IV NAUSEA AND/OR VOMITING; Start at 01:30 Acetaminophen (Tylenol Liquid) 650 mg Q6H PRN GTB ELEVATED TEMPERATURE Last administered on 11/27/16 04:59; Admin Dose 650 MG; Start 11/16/16 at 01:30 Baclofen (Lioresal) 20 mg TID GTB Last administered on 11/27/16 15:09; Admin Dose 20 MG; Start 11/16/16 at 09:00 Magnesium Oxide (Mag-Ox 400) 400 mg BID GTB Last administered on 11/27/16 10: 06; Admin Dose 400 MG; Start 11/16/16 at 09:00 Lansoprazole (Prevacid) 30 mg DAILY@06 GTB Last administered on 11/23/16 05:33 ; Admin Dose 30 MG; Start 11/16/16 at 06:00; Status Future Hold Simethicone (Mylicon) 160 mg DAILY PRN GTB DISTENSION/GAS/BLOATING Last administered on 11/18/16 12:30; Admin Dose 160 MG; Start 11/16/16 at 01:30 Zinc Sulfate (Zinc Sulfate) 220 mg DAILY GTB Last administered on 11/27/16 10: 06; Admin Dose 220 MG; Start 11/16/16 at 09:00 Diphenhydramine HCl (Benadryl Liquid Cup) 25 mg Q6H PRN GTB ITCHING; Start at 02:00 Clonidine (Catapres) 0.1 mg Q6H PRN GTB SBP >160; Start 11/16/16 at 02:06 Miscellaneous Information 1 ea NOTE XX ; Start 11/16/16 at 11:30 Glucose (Glutose) 15 gm Q15M PRN PO DECREASED GLUCOSE; Start 11/16/16 at 11:30 Glucose (Glutose) 22.5 gm Q15M PRN PO DECREASED GLUCOSE; Start 11/16/16 at 11: 30 Dextrose (D50w Syringe) 25 ml Q15M PRN IV DECREASED GLUCOSE; Start 11/16/16 at 11:30 Dextrose (D50w Syringe) 50 ml Q15M PRN IV DECREASED GLUCOSE; Start 11/16/16 at 11:30 Glucagon (Glucagen) 1 mg Q15M PRN IM DECREASED GLUCOSE; Start 11/16/16 at 11:30 Glucose (Glutose) 15 gm Q15M PRN BUCCAL DECREASED GLUCOSE; Start 11/16/16 at 11 :30 Collagenase (Santyl) 1 applic DAILY TOP Last administered on 11/27/16 10:05; Admin Dose 1 APPLIC; Start 11/17/16 at 09:00 Diphenhydramine HCl (Benadryl) 50 mg Q6H PRN IV ALLERGIC REACTION Last administered on 11/17/16 22:51; Admin Dose 50 MG; Start 11/17/16 at 16:30 Magnesium Hydroxide (Milk Of Mag) 30 ml DAILY PRN PO CONSTIPATION Last administered on 11/26/16 08:55; Admin Dose 30 ML; Start 11/18/16 at 00:30 Ibuprofen (Motrin) 600 mg Q6H PRN PO PAIN OR TEMP ABOVE 38C Last administered on 11/24/16 22:26; Admin Dose 600 MG; Start 11/20/16 at 13:00 Linezolid (Zyvox) 600 mg BID PO Last administered on 11/27/16 10:05; Admin Dose 600 MG; Start 11/20/16 at 21:00 Polyethylene Glycol (Miralax) 17 gm DAILY NGT Last administered on 11/27/16 09 :00; Admin Dose 17 GM; Start 11/23/16 at 09:00 Heparin Sodium (Porcine) (Heparin (5000 Units/0.5 ml)) 5,000 unit BID SC Last administered on 11/27/16 10:09; Admin Dose 5,000 UNIT; Start 11/22/16 at 21:00 Metronidazole (Flagyl) 500 mg Q8 PO Last administered on 11/27/16 15:09; Admin Dose 500 MG; Start 11/23/16 at 14:00 Fluconazole (Diflucan) 100 mg DAILY GTB Last administered on 11/27/16 10:05; Admin Dose 100 MG; Start 11/23/16 at 14:00 Diltiazem HCl (Cardizem) 30 mg Q8 PEG Last administered on 11/27/16 15:09; Admin Dose 30 MG; Start 11/24/16 at 14:00 Metoprolol Tartrate 5 mg 5 mg Q4H PRN IV HR>110 Hold SBP<100; Start 11/24/16 at 13:30 Cefepime HCl (Maxipime 1gm/50 ml (Pmx)) 50 ml @ 100 mls/hr Q24H IVPB Last administered on 11/27/16 15:19; Admin Dose 100 MLS/HR; Start 11/25/16 at 14:00 Loratadine (Claritin) 10 mg DAILY PO Last administered on 11/27/16 10:06; Admin Dose 10 MG; Start 11/25/16 at 13:00 Famotidine (Pepcid Iv) 20 mg DAILY IV Last administered on 11/27/16 10:05; Admin Dose 20 MG; Start 11/26/16 at 09:00 Lactulose (Enulose) 20 gm Q12H GTB Last administered on 11/26/16 18:47; Admin Dose 20 GM; Start 11/26/16 at 18:00 Insulin Aspart (Novolog Insulin Pen) NOVOLOG *MODERATE* ALGORITHM Q6 SC Last administered on 11/27/16 12:55; Admin Dose 4 UNIT; Start 11/27/16 at 00:00 Insulin Glargine (Lantus) 35 unit DAILY@08 SC Last administered on 11/27/16 12 :55; Admin Dose 35 UNIT; Start 11/27/16 at 11:30 Metoprolol Tartrate (Lopressor) 12.5 mg BID PO ; Start 11/27/16 at 11:00 REI BECK NP Nov 27, 2016 16:57
[2016-11-27] MEDS ORDERED: FOSFOMYCIN 3 GM PACKET PO ONE (18:00)
[2016-11-28] VITALS (25 sets, daily range): BP systolic 98–130; BP diastolic 58–67; PULSE 90–131; RESP 15–27
[2016-11-28] MEDS: LACTULOSE 30ML CUP GTB SCH ×2 (04:47→17:10)
[2016-11-28] MEDS: INSULIN ASPART [NOVOLOG] 3 ML PEN SC SCH ×3 (04:47→17:16)
[2016-11-28] MEDS: DILTIAZEM 30 MG TAB PEG SCH ×3 (04:47→21:55)
[2016-11-28] MEDS: metroNIDAZOLE 500 MG TAB PO SCH ×3 (05:01→21:55)
[2016-11-28 05:43] LABS: ADD SCAN DIFF NO
[2016-11-28] MEDS: ALBUTEROL HFA 8 GM INHALER INH PRN (05:48)
[2016-11-28 05:55] LABS: BASOPHILS % 0.2 % (0.0-2.0); EOSINOPHILS # 0.3 10^3/ul (0.0-0.5); EOSINOPHILS % 4.3 % (0.0-7.0); HEMATOCRIT 28.6 % (37.0-47.0); HEMOGLOBIN 9.4 g/dl (12.0-16.0); LYMPHOCYTES # 1.1 10^3/ul (0.8-2.9); LYMPHOCYTES % 17.6 % (15.0-51.0); MEAN CORPUSCULAR HEMOGLOBIN 27.5 pg (29.0-33.0); MEAN CORPUSCULAR HGB CONC 32.9 g/dl (32.0-37.0); MEAN CORPUSCULAR VOLUME 83.6 fl (82.0-101.0); MEAN PLATELET VOLUME 10.9 fl (7.4-10.4); MONOCYTE # 0.4 10^3/ul (0.3-0.9); MONOCYTES % 5.7 % (0.0-11.0); NEUTROPHIL # 4.4 10^3/ul (1.6-7.5); PLATELET COUNT 317 10^3/UL (140-415); RED BLOOD COUNT 3.42 10^6/ul (4.20-5.40); RED CELL DISTRIBUTION WIDTH 15.8 % (11.5-14.5); WHITE BLOOD COUNT 6.3 10^3/ul (4.8-10.8)
[2016-11-28 06:10] LABS: CREATININE 0.71 mg/dl (0.44-1.00)
[2016-11-28 06:11] LABS: CALCIUM 9.6 mg/dl (8.4-10.2)
[2016-11-28 07:04] LABS: POTASSIUM 2.6 mmol/L (3.5-5.1)
[2016-11-28] MEDS: POTASSIUM CHLORIDE 250 ML IVPB SCH ×2 (08:11→12:24)
[2016-11-28] MEDS: LORATADINE 10 MG TAB PO SCH (08:15)
[2016-11-28] MEDS: ZINC SULFATE 220 MG CAP GTB SCH (08:15)
[2016-11-28] MEDS: ZYVOX 600 MG TAB PO SCH ×2 (08:16→21:41)
[2016-11-28] MEDS: BACLOFEN 10 MG TAB GTB SCH ×3 (08:16→21:41)
[2016-11-28] MEDS: FLUCONAZOLE 100 MG TAB GTB SCH (08:16)
[2016-11-28] MEDS: METOPROLOL 25 MG TAB PO SCH ×2 (08:17→21:42)
[2016-11-28] MEDS: MAGNESIUM OXIDE 400 MG TAB GTB SCH ×2 (08:17→21:41)
[2016-11-28] MEDS: COLLAGENASE 30 GM TUBE TOP SCH (08:18)
[2016-11-28] MEDS: HEPARIN 5,000 UNIT/0.5 ML SYG SC SCH ×2 (08:21→21:51)
[2016-11-28] MEDS: INSULIN GLARGINE [LANtus] 3 ML PEN SC SCH (08:21)
[2016-11-28] MEDS: FAMOTIDINE 20 MG INJ IV SCH (08:23)
[2016-11-28] MEDS: POLYETHYLENE GLYCOL 17 GM PACKET NGT SCH ×2 (08:26→14:01)
[2016-11-28] MEDS ORDERED: POTASSIUM CHLORIDE 250 ML IVPB SCH (09:00)
[2016-11-28] MEDS: TOBRAMYCIN/0.25NS 300 MG/5 ML INHAL NEB SCH ×2 (09:53→19:54)
--- NOTE | 2016-11-28 13:54 | PN ---
Date/Time of Note Date/Time of Note DATE: 11/28/16 TIME: 13:48 Assessment/Plan VTE Prophylaxis VTE Prophylaxis Intervention: heparin Lines/Catheters IV C[facility]ter Type [facility] PICC Line Central line still needed: Yes Urinary Cath still in place: Yes Reason Cath still needed: urinary retention Assessment/Plan Chief Complaint/Hosp Course A/P: An unfortunate 56-year-old female who resides at a nursing home facility with a history of CVA, multiple sclerosis, vent and trach dependent, PEG tube dependent, chronic respiratory failure, was bed bound, history of multiple pressure ulcers, recent history of ESBL urinary tract infection and possible pneumonitis, upper respiratory tract infection, anemia of chronic disease who was sent from nursing [facility] for anemia. 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 * this has severely affected at least 2 of patient's children * Actual diagnosis is not clear, but per reports patient was diagnosed with MS * Daughter requesting possible genetic testing Chronic resp failure Ventilator dependent via trach Intractable Sepsis / - MDR Pseudomonas HCAP, ESBL K pneumo / Pseudomonas UTI - Continue Abx per ID Chronic dysphagia s/p PEG tube - tube feedings on hold for mild ileus - Continue tube feeds at new regimen with new goal, DO NOT MODIFY except ordered by 2.7 mm Pulmonary perihilar nodule - monitor, f/u pulm rec's Acute renal insufficiency - improved - monitor Upper ext fracture s/p splint Bilateral Staghorn calculi DM 2 : suboptimal control - adjust Lantus for improved control Severe Anemia of chronic disease s/p transfusion Stage 4 sacral ulcer Hypernatremia: improved - D/c DDAVP as hypernatremia has resolved Severe constipation with impacted stool: resolved DNR D/C PLAN: * Continue all supportive care * 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 * Fever is improving, plan to d/c back to NH in 1-2 days once 24hr fever free. PROPHYLAXIS: Heparin, closely monitor hgb / PPI Problems: Subjective 24 Hr Interval Summary Free Text/Dictation No acute events overnight. Exam/Review of Systems Vital Signs Vitals Vital Signs Date Time Temp Pulse Resp B/P Pulse Ox O2 Delivery O2 Flow Rate FiO2 11/28/16 12:00 94 11/28/16 11:37 98.4 23 106/61 98 11/28/16 09:05 30 11/24/16 21:00 Mechanical Ventilator Intake and Output 11/27/16 11/27/16 11/28/16 15:00 23:00 07:00 Intake Total 250 ml Output Total 2000 ml Balance -1750 ml Exam Constitutional: frail, non-verbal, other (vegetative), No alert, No oriented Psych: No nl mood/affect Head: normocephalic ENMT: other (trach to vent) Respiratory: diminished breath sounds Cardiovascular: No murmurs/extra sounds, No regular rate and rhythm Gastrointestinal: bowel sounds (hypoactive), less distended, soft Musculoskeletal: other (daniel foot drop, functional quadriplegia, severe msc wasting) Neurological: unresponsive, No nl mental status Results Result Diagram: 11/28/16 0510 11/28/16 0510 Results 24 hrs Laboratory Tests Test 11/27/16 19:01 11/27/16 23:07 11/28/16 04:46 11/28/16 05:10 Bedside Glucose 94 115 154 Anion Gap 20 H Basophils # 0.0 Basophils % 0.2 Blood Urea Nitrogen 10 Calcium Level 9.6 Carbon Dioxide Level 20 L Chloride Level 100 Creatinine 0.71 Eosinophils # 0.3 Eosinophils % 4.3 Glucose Level 138 # Hematocrit 28.6 L Hemoglobin 9.4 L Lymphocytes # 1.1 Lymphocytes % 17.6 Mean Corpuscular Hemoglobin 27.5 L Mean Corpuscular Hemoglobin Concent 32.9 Mean Corpuscular Volume 83.6 Mean Platelet Volume 10.9 H Monocytes # 0.4 Monocytes % 5.7 Neutrophils # 4.4 Neutrophils % 70.0 Nucleated Red Blood Cells # 0.0 Nucleated Red Blood Cells % 0.0 Platelet Count 317 Potassium Level 2.6 *L Red Blood Count 3.42 L Red Cell Distribution Width 15.8 H Sodium Level 137 White Blood Count 6.3 Test 11/28/16 12:26 Bedside Glucose 232 H Medications Medications Current Medications Ondansetron HCl (Zofran Inj) 4 mg Q6H PRN IV NAUSEA AND/OR VOMITING; Start at 01:30 Acetaminophen (Tylenol Liquid) 650 mg Q6H PRN GTB ELEVATED TEMPERATURE Last administered on 11/27/16t 04:59; Admin Dose 650 MG; Start 11/16/16 at 01:30 Baclofen (Lioresal) 20 mg TID GTB Last administered on 11/28/16 08:16; Admin Dose 20 MG; Start 11/16/16 at 09:00 Magnesium Oxide (Mag-Ox 400) 400 mg BID GTB Last administered on 11/28/16 08: 17; Admin Dose 400 MG; Start 11/16/16 at 09:00 Lansoprazole (Prevacid) 30 mg DAILY@06 GTB Last administered on 11/23/16 05:33 ; Admin Dose 30 MG; Start 11/16/16 at 06:00; Status Future Hold Simethicone (Mylicon) 160 mg DAILY PRN GTB DISTENSION/GAS/BLOATING Last administered on 11/18/16 12:30; Admin Dose 160 MG; Start 11/16/16 at 01:30 Zinc Sulfate (Zinc Sulfate) 220 mg DAILY GTB Last administered on 11/28/16 08: 15; Admin Dose 220 MG; Start 11/16/16 at 09:00 Diphenhydramine HCl (Benadryl Liquid Cup) 25 mg Q6H PRN GTB ITCHING; Start at 02:00 Clonidine (Catapres) 0.1 mg Q6H PRN GTB SBP >160; Start 11/16/16 at 02:06 Miscellaneous Information 1 ea NOTE XX ; Start 11/16/16 at 11:30 Glucose (Glutose) 15 gm Q15M PRN PO DECREASED GLUCOSE; Start 11/16/16 at 11:30 Glucose (Glutose) 22.5 gm Q15M PRN PO DECREASED GLUCOSE; Start 11/16/16 at 11: 30 Dextrose (D50w Syringe) 25 ml Q15M PRN IV DECREASED GLUCOSE; Start 11/16/16 at 11:30 Dextrose (D50w Syringe) 50 ml Q15M PRN IV DECREASED GLUCOSE; Start 11/16/16 at 11:30 Glucagon (Glucagen) 1 mg Q15M PRN IM DECREASED GLUCOSE; Start 11/16/16 at 11:30 Glucose (Glutose) 15 gm Q15M PRN BUCCAL DECREASED GLUCOSE; Start 11/16/16 at 11 :30 Collagenase (Santyl) 1 applic DAILY TOP Last administered on 11/28/16 08:18; Admin Dose 1 APPLIC; Start 11/17/16 at 09:00 Diphenhydramine HCl (Benadryl) 50 mg Q6H PRN IV ALLERGIC REACTION Last administered on 11/17/16 22:51; Admin Dose 50 MG; Start 11/17/16 at 16:30 Magnesium Hydroxide (Milk Of Mag) 30 ml DAILY PRN PO CONSTIPATION Last administered on 11/26/16 08:55; Admin Dose 30 ML; Start 11/18/16 at 00:30 Ibuprofen (Motrin) 600 mg Q6H PRN PO PAIN OR TEMP ABOVE 38C Last administered on 11/24/16 22:26; Admin Dose 600 MG; Start 11/20/16 at 13:00 Linezolid (Zyvox) 600 mg BID PO Last administered on 11/28/16 08:16; Admin Dose 600 MG; Start 11/20/16 at 21:00 Polyethylene Glycol (Miralax) 17 gm DAILY NGT Last administered on 11/27/16 09 :00; Admin Dose 17 GM; Start 11/23/16 at 09:00 Heparin Sodium (Porcine) (Heparin (5000 Units/0.5 ml)) 5,000 unit BID SC Last administered on 11/28/16 08:21; Admin Dose 5,000 UNIT; Start 11/22/16 at 21:00 Metronidazole (Flagyl) 500 mg Q8 PO Last administered on 11/28/16 05:01; Admin Dose 500 MG; Start 11/23/16 at 14:00 Fluconazole (Diflucan) 100 mg DAILY GTB Last administered on 11/28/16 08:16; Admin Dose 100 MG; Start 11/23/16 at 14:00 Diltiazem HCl (Cardizem) 30 mg Q8 PEG Last administered on 11/27/16 15:09; Admin Dose 30 MG; Start 11/24/16 at 14:00 Metoprolol Tartrate 5 mg 5 mg Q4H PRN IV HR>110 Hold SBP<100; Start 11/24/16 at 13:30 Cefepime HCl (Maxipime 1gm/50 ml (Pmx)) 50 ml @ 100 mls/hr Q24H IVPB Last administered on 11/27/16 15:19; Admin Dose 100 MLS/HR; Start 11/25/16 at 14:00 Loratadine (Claritin) 10 mg DAILY PO Last administered on 11/28/16 08:15; Admin Dose 10 MG; Start 11/25/16 at 13:00 Famotidine (Pepcid Iv) 20 mg DAILY IV Last administered on 11/28/16 08:23; Admin Dose 20 MG; Start 11/26/16 at 09:00 Lactulose (Enulose) 20 gm Q12H GTB Last administered on 11/26/16 18:47; Admin Dose 20 GM; Start 11/26/16 at 18:00 Insulin Aspart (Novolog Insulin Pen) NOVOLOG *MODERATE* ALGORITHM Q6 SC Last administered on 11/28/16 12:28; Admin Dose 6 UNIT; Start 11/27/16 at 00:00 Insulin Glargine (Lantus) 35 unit DAILY@08 SC Last administered on 11/28/16 08 :21; Admin Dose 35 UNIT; Start 11/27/16 at 11:30 Metoprolol Tartrate 12.5 mg 12.5 mg BID PO Last administered on 11/28/16 08:17 ; Admin Dose 12.5 MG; Start 11/27/16 at 11:00 Potassium Chloride (KCl 40 MEQ/250 ML NS) 250 ml @ 62.5 mls/hr Q4H IVPB Last administered on 11/28/16 12:24; Admin Dose 62.5 MLS/HR; Start 11/28/16 at 07:30 ; Stop 11/28/16 at 15:29 ASHLEY EMERY Nov 28, 2016 13:54
[2016-11-28] MEDS: CEFEPIME 1GM/50 ML (PMX) 50 ML IVPB SCH (13:57)
--- NOTE | 2016-11-28 14:18 | CONS ---
Date/Time of Note Date/Time of Note DATE: 11/28/16 TIME: 14:17 Assessment/Plan Assessment/Plan Chief Complaint/Hosp Course SUBJECTIVE: No events overnight. No fevers. Th ANTIMICROBIALS: 1. Tobramycin inhalation. 2. Flagyl p.o. 3. Fluconazole per G-tube. 4. Cefepime 5. Oral Zyvox. MICROBIOLOGY: Urine culture grew Klebsiella ESBL and Pseudomonas aeruginosa, which were multidrug resistant, susceptible to cefepime, amikacin, only Pseudomonas aeruginosa was susceptible. INDWELLINGS: Trach, PEG, Joel, rectal tube, and PICC line placed on 2016. ALLERGIES: 1. LEVAQUIN. 2. ? CEPHALOSPORINS. 3. PENICILLIN. 4. VANCOMYCIN. OBJECTIVE: GENERAL: This is a chronically ill-appearing, middle-aged woman who is lying comfortably in bed. The patient is nonverbal, nonresponsive. HEENT: Head atraumatic, normocephalic. Sclerae anicteric. Buccal mucosa dry. NECK: Supple. Tracheostomy present. CHEST: Rise symmetrical. Breath sounds diminished. HEART: S1, S2. ABDOMEN: Distended, soft. G-tube site clear. Bowel sounds present. EXTREMITIES: Wasted with trace edema. SKIN: With multiple unstageable decubiti. ASSESSMENT: 1. Severe sepsis with ongoing fevers. 2. Polymicrobial urinary tract infection. 3. Multiple unstageable wounds, possibly infected. 4. Acute renal failure. 5. Chronic respiratory failure with sputum culture grew multidrug resistant pseudomonas and Morganella morganii. 6. Advanced multiple sclerosis with functional quadriplegia. 7. S/p fecal impaction. PLAN: Stable, continue abx, local wound care DW staff Problems: Consultation Date/Type/Reason Admit Date/Time Nov 15, 2016 at 22:42 Initial Consult Date 11/18/16 Type of Consultation: ID Exam/Review of Systems Vital Signs Vitals Vital Signs Date Time Temp Pulse Resp B/P Pulse Ox O2 Delivery O2 Flow Rate FiO2 11/28/16 12:00 94 11/28/16 11:37 98.4 23 106/61 98 11/28/16 09:05 30 11/24/16 21:00 Mechanical Ventilator Intake and Output 11/27/16 11/27/16 11/28/16 15:00 23:00 07:00 Intake Total 250 ml Output Total 2000 ml Balance -1750 ml Results Result Diagram: 11/28/16 0510 11/28/16 0510 Results 24 hrs Laboratory Tests Test 11/27/16 19:01 11/27/16 23:07 11/28/16 04:46 11/28/16 05:10 Bedside Glucose 94 115 154 Anion Gap 20 H Basophils # 0.0 Basophils % 0.2 Blood Urea Nitrogen 10 Calcium Level 9.6 Carbon Dioxide Level 20 L Chloride Level 100 Creatinine 0.71 Eosinophils # 0.3 Eosinophils % 4.3 Glucose Level 138 # Hematocrit 28.6 L Hemoglobin 9.4 L Lymphocytes # 1.1 Lymphocytes % 17.6 Mean Corpuscular Hemoglobin 27.5 L Mean Corpuscular Hemoglobin Concent 32.9 Mean Corpuscular Volume 83.6 Mean Platelet Volume 10.9 H Monocytes # 0.4 Monocytes % 5.7 Neutrophils # 4.4 Neutrophils % 70.0 Nucleated Red Blood Cells # 0.0 Nucleated Red Blood Cells % 0.0 Platelet Count 317 Potassium Level 2.6 *L Red Blood Count 3.42 L Red Cell Distribution Width 15.8 H Sodium Level 137 White Blood Count 6.3 Test 11/28/16 12:26 Bedside Glucose 232 H Medications Medications Current Medications Ondansetron HCl (Zofran Inj) 4 mg Q6H PRN IV NAUSEA AND/OR VOMITING; Start at 01:30 Acetaminophen (Tylenol Liquid) 650 mg Q6H PRN GTB ELEVATED TEMPERATURE Last administered on 11/27/16 04:59; Admin Dose 650 MG; Start 11/16/16 at 01:30 Baclofen (Lioresal) 20 mg TID GTB Last administered on 11/28/16 13:57; Admin Dose 20 MG; Start 11/16/16 at 09:00 Magnesium Oxide (Mag-Ox 400) 400 mg BID GTB Last administered on 11/28/16 08: 17; Admin Dose 400 MG; Start 11/16/16 at 09:00 Lansoprazole (Prevacid) 30 mg DAILY@06 GTB Last administered on 11/23/16 05:33 ; Admin Dose 30 MG; Start 11/16/16 at 06:00; Status Future Hold Simethicone (Mylicon) 160 mg DAILY PRN GTB DISTENSION/GAS/BLOATING Last administered on 11/18/16 12:30; Admin Dose 160 MG; Start 11/16/16 at 01:30 Zinc Sulfate (Zinc Sulfate) 220 mg DAILY GTB Last administered on 11/28/16 08: 15; Admin Dose 220 MG; Start 11/16/16 at 09:00 Diphenhydramine HCl (Benadryl Liquid Cup) 25 mg Q6H PRN GTB ITCHING; Start at 02:00 Clonidine (Catapres) 0.1 mg Q6H PRN GTB SBP >160; Start 11/16/16 at 02:06 Miscellaneous Information 1 ea NOTE XX ; Start 11/16/16 at 11:30 Glucose (Glutose) 15 gm Q15M PRN PO DECREASED GLUCOSE; Start 11/16/16 at 11:30 Glucose (Glutose) 22.5 gm Q15M PRN PO DECREASED GLUCOSE; Start 11/16/16 at 11: 30 Dextrose (D50w Syringe) 25 ml Q15M PRN IV DECREASED GLUCOSE; Start 11/16/16 at 11:30 Dextrose (D50w Syringe) 50 ml Q15M PRN IV DECREASED GLUCOSE; Start 11/16/16 at 11:30 Glucagon (Glucagen) 1 mg Q15M PRN IM DECREASED GLUCOSE; Start 11/16/16 at 11:30 Glucose (Glutose) 15 gm Q15M PRN BUCCAL DECREASED GLUCOSE; Start 11/16/16 at 11 :30 Collagenase (Santyl) 1 applic DAILY TOP Last administered on 11/28/16 08:18; Admin Dose 1 APPLIC; Start 11/17/16 at 09:00 Diphenhydramine HCl (Benadryl) 50 mg Q6H PRN IV ALLERGIC REACTION Last administered on 11/17/16 22:51; Admin Dose 50 MG; Start 11/17/16 at 16:30 Magnesium Hydroxide (Milk Of Mag) 30 ml DAILY PRN PO CONSTIPATION Last administered on 11/26/16 08:55; Admin Dose 30 ML; Start 11/18/16 at 00:30 Ibuprofen (Motrin) 600 mg Q6H PRN PO PAIN OR TEMP ABOVE 38C Last administered on 11/24/16 22:26; Admin Dose 600 MG; Start 11/20/16 at 13:00 Linezolid (Zyvox) 600 mg BID PO Last administered on 11/28/16 08:16; Admin Dose 600 MG; Start 11/20/16 at 21:00 Polyethylene Glycol (Miralax) 17 gm DAILY NGT Last administered on 11/28/16 14 :01; Admin Dose 17 GM; Start 11/23/16 at 09:00 Heparin Sodium (Porcine) (Heparin (5000 Units/0.5 ml)) 5,000 unit BID SC Last administered on 11/28/16 08:21; Admin Dose 5,000 UNIT; Start 11/22/16 at 21:00 Metronidazole (Flagyl) 500 mg Q8 PO Last administered on 11/28/16 14:00; Admin Dose 500 MG; Start 11/23/16 at 14:00 Fluconazole (Diflucan) 100 mg DAILY GTB Last administered on 11/28/16 08:16; Admin Dose 100 MG; Start 11/23/16 at 14:00 Diltiazem HCl (Cardizem) 30 mg Q8 PEG Last administered on 11/28/16 14:00; Admin Dose 30 MG; Start 11/24/16 at 14:00 Metoprolol Tartrate 5 mg 5 mg Q4H PRN IV HR>110 Hold SBP<100; Start 11/24/16 at 13:30 Cefepime HCl (Maxipime 1gm/50 ml (Pmx)) 50 ml @ 100 mls/hr Q24H IVPB Last administered on 11/28/16 13:57; Admin Dose 100 MLS/HR; Start 11/25/16 at 14:00 Loratadine (Claritin) 10 mg DAILY PO Last administered on 11/28/16 08:15; Admin Dose 10 MG; Start 11/25/16 at 13:00 Famotidine (Pepcid Iv) 20 mg DAILY IV Last administered on 11/28/16 08:23; Admin Dose 20 MG; Start 11/26/16 at 09:00 Lactulose (Enulose) 20 gm Q12H GTB Last administered on 11/26/16 18:47; Admin Dose 20 GM; Start 11/26/16 at 18:00 Insulin Aspart (Novolog Insulin Pen) NOVOLOG *MODERATE* ALGORITHM Q6 SC Last administered on 11/28/16 12:28; Admin Dose 6 UNIT; Start 11/27/16 at 00:00 Insulin Glargine (Lantus) 35 unit DAILY@08 SC Last administered on 11/28/16 08 :21; Admin Dose 35 UNIT; Start 11/27/16 at 11:30 Metoprolol Tartrate 12.5 mg 12.5 mg BID PO Last administered on 11/28/16 08:17 ; Admin Dose 12.5 MG; Start 11/27/16 at 11:00 Potassium Chloride (KCl 40 MEQ/250 ML NS) 250 ml @ 62.5 mls/hr Q4H IVPB Last administered on 11/28/16 12:24; Admin Dose 62.5 MLS/HR; Start 11/28/16 at 07:30 ; Stop 11/28/16 at 15:29 FLEX DENNISON NP Nov 28, 2016 14:18
--- NOTE | 2016-11-28 14:35 | CONS ---
Date/Time of Note Date/Time of Note DATE: 11/28/16 TIME: 14:32 Assessment/Plan Assessment/Plan Chief Complaint/Hosp Course Patient is a 56-year-old lady who was admitted for treatment of sepsis as well as anemia. Pulmonary consultation obtained for management of respiratory failure. Patient on mechanical ventilation chronically due to underlying severe multiple sclerosis. History present illness; 6-year-old lady admitted for treatment of severe sepsis as well as anemia. She was obtained from medical records as the patient is unable to give any history whatsoever by herself. The time I saw the patient the patient is on mechanical ventilation via tracheostomy patient is unresponsive. Patient on medical records, the patient has remained hemodynamically stable. Past medical history; 1. History of severe multiple sclerosis ventilator dependent. 2. History of multiple episodes of UTI. 3. Status post G-tube and tracheostomy. 4. Decubitus ulcers. Next Medications; were reviewed. Allergies; are to cephalosporins, penicillins, Levaquin and vancomycin. Social history; noncontributory. Family history; not available. Occupational history; patient is disabled. Review of systems; currently unable to be obtained. General examination; middle aged woman, on ventilator via tracheostomy unresponsive. Currently in no distress. Problems: Additional Assessment/Plan Ventilator settings; assist control of 16, tidal volume 450, PEEP of 5, 30% FiO2. Assessment and recommendations; 1. Patient with history of chronic respiratory failure due to advanced multiple sclerosis with extremely poor mental status. 2. Patient admitted for sepsis due to sacral decubitus wound as well as UTI. Continue current supportive care. Prognosis remains poor. Consultation Date/Type/Reason Admit Date/Time Nov 15, 2016 at 22:42 Initial Consult Date 11/18/16 Type of Consultation: Pulmonary 24 HR Interval Summary Free Text/Dictation Patient condition remains stable. Remains ventilator dependent owing to severe multiple sclerosis. Has remained hemodynamically stable. General examination; middle aged woman, on ventilator via tracheostomy. Currently in no distress. Exam/Review of Systems Vital Signs Vitals Vital Signs Date Time Temp Pulse Resp B/P Pulse Ox O2 Delivery O2 Flow Rate FiO2 11/28/16 13:10 104 21 98 30 11/28/16 11:37 98.4 106/61 11/24/16 21:00 Mechanical Ventilator Intake and Output 11/27/16 11/27/16 11/28/16 15:00 23:00 07:00 Intake Total 250 ml Output Total 2000 ml Balance -1750 ml Exam HEENT examination; supple neck, no JVD. No lymphadenopathy. Midline trachea. No thyromegaly. Tracheostomy in place with clean insertion site. Chest examination; clear to auscultation. S1-S2 audible, no murmurs. Regular rhythm. Abdomen examination; soft, G-tube in place. Bowel sounds audible. No organomegaly. Extremity examination; no peripheral edema. Patient has contractures involving all 4 extremities. Back examination reveals multiple sacral decubitus ulcers. CLUB LICENSEE examination; patient remains unresponsive. Results Result Diagram: 11/28/16 0510 11/28/16 0510 Results 24 hrs Laboratory Tests Test 11/27/16 19:01 11/27/16 23:07 11/28/16 04:46 11/28/16 05:10 Bedside Glucose 94 115 154 Anion Gap 20 H Basophils # 0.0 Basophils % 0.2 Blood Urea Nitrogen 10 Calcium Level 9.6 Carbon Dioxide Level 20 L Chloride Level 100 Creatinine 0.71 Eosinophils # 0.3 Eosinophils % 4.3 Glucose Level 138 # Hematocrit 28.6 L Hemoglobin 9.4 L Lymphocytes # 1.1 Lymphocytes % 17.6 Mean Corpuscular Hemoglobin 27.5 L Mean Corpuscular Hemoglobin Concent 32.9 Mean Corpuscular Volume 83.6 Mean Platelet Volume 10.9 H Monocytes # 0.4 Monocytes % 5.7 Neutrophils # 4.4 Neutrophils % 70.0 Nucleated Red Blood Cells # 0.0 Nucleated Red Blood Cells % 0.0 Platelet Count 317 Potassium Level 2.6 *L Red Blood Count 3.42 L Red Cell Distribution Width 15.8 H Sodium Level 137 White Blood Count 6.3 Test 11/28/16 12:26 Bedside Glucose 232 H Medications Medications Current Medications Ondansetron HCl (Zofran Inj) 4 mg Q6H PRN IV NAUSEA AND/OR VOMITING; Start at 01:30 Acetaminophen (Tylenol Liquid) 650 mg Q6H PRN GTB ELEVATED TEMPERATURE Last administered on 11/27/16 04:59; Admin Dose 650 MG; Start 11/16/16 at 01:30 Baclofen (Lioresal) 20 mg TID GTB Last administered on 11/28/16 13:57; Admin Dose 20 MG; Start 11/16/16 at 09:00 Magnesium Oxide (Mag-Ox 400) 400 mg BID GTB Last administered on 11/28/16 08: 17; Admin Dose 400 MG; Start 11/16/16 at 09:00 Lansoprazole (Prevacid) 30 mg DAILY@06 GTB Last administered on 11/23/16 05:33 ; Admin Dose 30 MG; Start 11/16/16 at 06:00; Status Future Hold Simethicone (Mylicon) 160 mg DAILY PRN GTB DISTENSION/GAS/BLOATING Last administered on 11/18/16 12:30; Admin Dose 160 MG; Start 11/16/16 at 01:30 Zinc Sulfate (Zinc Sulfate) 220 mg DAILY GTB Last administered on 11/28/16 08: 15; Admin Dose 220 MG; Start 11/16/16 at 09:00 Diphenhydramine HCl (Benadryl Liquid Cup) 25 mg Q6H PRN GTB ITCHING; Start at 02:00 Clonidine (Catapres) 0.1 mg Q6H PRN GTB SBP >160; Start 11/16/16 at 02:06 Miscellaneous Information 1 ea NOTE XX ; Start 11/16/16 at 11:30 Glucose (Glutose) 15 gm Q15M PRN PO DECREASED GLUCOSE; Start 11/16/16 at 11:30 Glucose (Glutose) 22.5 gm Q15M PRN PO DECREASED GLUCOSE; Start 11/16/16 at 11: 30 Dextrose (D50w Syringe) 25 ml Q15M PRN IV DECREASED GLUCOSE; Start 11/16/16 at 11:30 Dextrose (D50w Syringe) 50 ml Q15M PRN IV DECREASED GLUCOSE; Start 11/16/16 at 11:30 Glucagon (Glucagen) 1 mg Q15M PRN IM DECREASED GLUCOSE; Start 11/16/16 at 11:30 Glucose (Glutose) 15 gm Q15M PRN BUCCAL DECREASED GLUCOSE; Start 11/16/16 at 11 :30 Collagenase (Santyl) 1 applic DAILY TOP Last administered on 11/28/16 08:18; Admin Dose 1 APPLIC; Start 11/17/16 at 09:00 Diphenhydramine HCl (Benadryl) 50 mg Q6H PRN IV ALLERGIC REACTION Last administered on 11/17/16 22:51; Admin Dose 50 MG; Start 11/17/16 at 16:30 Magnesium Hydroxide (Milk Of Mag) 30 ml DAILY PRN PO CONSTIPATION Last administered on 11/26/16 08:55; Admin Dose 30 ML; Start 11/18/16 at 00:30 Ibuprofen (Motrin) 600 mg Q6H PRN PO PAIN OR TEMP ABOVE 38C Last administered on 11/24/16 22:26; Admin Dose 600 MG; Start 11/20/16 at 13:00 Linezolid (Zyvox) 600 mg BID PO Last administered on 11/28/16 08:16; Admin Dose 600 MG; Start 11/20/16 at 21:00 Polyethylene Glycol (Miralax) 17 gm DAILY NGT Last administered on 11/28/16 14 :01; Admin Dose 17 GM; Start 11/23/16 at 09:00 Heparin Sodium (Porcine) (Heparin (5000 Units/0.5 ml)) 5,000 unit BID SC Last administered on 11/28/16 08:21; Admin Dose 5,000 UNIT; Start 11/22/16 at 21:00 Metronidazole (Flagyl) 500 mg Q8 PO Last administered on 11/28/16 14:00; Admin Dose 500 MG; Start 11/23/16 at 14:00 Fluconazole (Diflucan) 100 mg DAILY GTB Last administered on 11/28/16 08:16; Admin Dose 100 MG; Start 11/23/16 at 14:00 Diltiazem HCl (Cardizem) 30 mg Q8 PEG Last administered on 11/28/16 14:00; Admin Dose 30 MG; Start 11/24/16 at 14:00 Metoprolol Tartrate 5 mg 5 mg Q4H PRN IV HR>110 Hold SBP<100; Start 11/24/16 at 13:30 Cefepime HCl (Maxipime 1gm/50 ml (Pmx)) 50 ml @ 100 mls/hr Q24H IVPB Last administered on 11/28/16 13:57; Admin Dose 100 MLS/HR; Start 11/25/16 at 14:00 Loratadine (Claritin) 10 mg DAILY PO Last administered on 11/28/16 08:15; Admin Dose 10 MG; Start 11/25/16 at 13:00 Famotidine (Pepcid Iv) 20 mg DAILY IV Last administered on 11/28/16 08:23; Admin Dose 20 MG; Start 11/26/16 at 09:00 Lactulose (Enulose) 20 gm Q12H GTB Last administered on 11/26/16 18:47; Admin Dose 20 GM; Start 11/26/16 at 18:00 Insulin Aspart (Novolog Insulin Pen) NOVOLOG *MODERATE* ALGORITHM Q6 SC Last administered on 11/28/16 12:28; Admin Dose 6 UNIT; Start 11/27/16 at 00:00 Insulin Glargine (Lantus) 35 unit DAILY@08 SC Last administered on 11/28/16 08 :21; Admin Dose 35 UNIT; Start 11/27/16 at 11:30 Metoprolol Tartrate 12.5 mg 12.5 mg BID PO Last administered on 11/28/16 08:17 ; Admin Dose 12.5 MG; Start 11/27/16 at 11:00 Potassium Chloride (KCl 40 MEQ/250 ML NS) 250 ml @ 62.5 mls/hr Q4H IVPB Last administered on 11/28/16 12:24; Admin Dose 62.5 MLS/HR; Start 11/28/16 at 07:30 ; Stop 11/28/16 at 15:29 ARYAN COLLADO Nov 28, 2016 14:35
[2016-11-28] MEDS: ACETAMINOPHEN 650MG/20.3ML CUP GTB PRN (21:55)
[2016-11-29] VITALS (24 sets, daily range): BP systolic 98–119; BP diastolic 55–70; PULSE 98–110; RESP 16–22
[2016-11-29] MEDS: INSULIN ASPART [NOVOLOG] 3 ML PEN SC SCH ×4 (00:15→17:28)
[2016-11-29] MEDS: LACTULOSE 30ML CUP GTB SCH ×2 (06:21→17:14)
[2016-11-29] MEDS: DILTIAZEM 30 MG TAB PEG SCH ×3 (06:22→21:00)
[2016-11-29] MEDS: metroNIDAZOLE 500 MG TAB PO SCH ×3 (06:22→21:00)
[2016-11-29 07:00] LABS: ADD SCAN DIFF NO
[2016-11-29 07:08] LABS: BASOPHILS % 0.4 % (0.0-2.0); EOSINOPHILS # 0.2 10^3/ul (0.0-0.5); HEMATOCRIT 30.9 % (37.0-47.0); LYMPHOCYTES # 1.2 10^3/ul (0.8-2.9); LYMPHOCYTES % 15.8 % (15.0-51.0); MEAN CORPUSCULAR HEMOGLOBIN 27.9 pg (29.0-33.0); MEAN CORPUSCULAR HGB CONC 32.4 g/dl (32.0-37.0); MEAN CORPUSCULAR VOLUME 86.1 fl (82.0-101.0); MEAN PLATELET VOLUME 10.4 fl (7.4-10.4); MONOCYTE # 0.5 10^3/ul (0.3-0.9); MONOCYTES % 6.5 % (0.0-11.0); NEUTROPHIL # 5.2 10^3/ul (1.6-7.5); NEUTROPHILS % 70.5 % (39.0-77.0); PLATELET COUNT 349 10^3/UL (140-415); RED BLOOD COUNT 3.59 10^6/ul (4.20-5.40); RED CELL DISTRIBUTION WIDTH 16.3 % (11.5-14.5); WHITE BLOOD COUNT 7.4 10^3/ul (4.8-10.8)
[2016-11-29 07:20] LABS: POTASSIUM 4.1 mmol/L (3.5-5.1)
[2016-11-29 07:23] LABS: CREATININE 0.78 mg/dl (0.44-1.00)
[2016-11-29 07:24] LABS: CALCIUM 10.3 mg/dl (8.4-10.2)
[2016-11-29] MEDS: MAGNESIUM OXIDE 400 MG TAB GTB SCH ×2 (08:55→20:45)
[2016-11-29] MEDS: ZINC SULFATE 220 MG CAP GTB SCH (08:55)
[2016-11-29] MEDS: FLUCONAZOLE 100 MG TAB GTB SCH (08:55)
[2016-11-29] MEDS: FAMOTIDINE 20 MG INJ IV SCH (08:55)
[2016-11-29] MEDS: ZYVOX 600 MG TAB PO SCH ×2 (08:56→20:45)
[2016-11-29] MEDS: BACLOFEN 10 MG TAB GTB SCH ×3 (08:56→20:44)
[2016-11-29] MEDS: METOPROLOL 25 MG TAB PO SCH ×2 (08:56→20:45)
[2016-11-29] MEDS: POLYETHYLENE GLYCOL 17 GM PACKET NGT SCH (08:56)
[2016-11-29] MEDS: LORATADINE 10 MG TAB PO SCH (08:56)
[2016-11-29] MEDS: INSULIN GLARGINE [LANtus] 3 ML PEN SC SCH (08:57)
[2016-11-29] MEDS: COLLAGENASE 30 GM TUBE TOP SCH (08:58)
[2016-11-29] MEDS: HEPARIN 5,000 UNIT/0.5 ML SYG SC SCH ×2 (08:58→20:46)
[2016-11-29] MEDS: ALBUTEROL HFA 8 GM INHALER INH PRN (09:31)
[2016-11-29] MEDS: TOBRAMYCIN/0.25NS 300 MG/5 ML INHAL NEB SCH ×2 (09:32→20:27)
--- NOTE | 2016-11-29 11:33 | PN ---
Date/Time of Note Date/Time of Note DATE: 11/29/16 TIME: 11:30 Assessment/Plan VTE Prophylaxis VTE Prophylaxis Intervention: heparin Lines/Catheters IV Catheter Type (from [facility]): PICC Line Central line still needed: Yes Urinary Cath still in place: Yes Reason Cath still needed: urinary retention Assessment/Plan Chief Complaint/Hosp Course A/P: An unfortunate 56-year-old female who resides at a residential facility with a history of CVA, multiple sclerosis, vent and trach dependent, PEG tube dependent, chronic respiratory failure, was bed bound, history of multiple pressure ulcers, recent history of ESBL urinary tract infection and possible pneumonitis, upper respiratory tract infection, anemia of chronic disease who was sent from residential [facility] for anemia. 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 * this has severely affected at least 2 of patient's children * Actual diagnosis is not clear, but per reports patient was diagnosed with MS * Daughter requesting possible genetic testing Chronic resp failure Ventilator dependent via trach Intractable Sepsis 2/ - MDR Pseudomonas HCAP, ESBL K pneumo / Pseudomonas UTI - Continue Abx per ID Chronic dysphagia s/p PEG tube - tube feedings on hold for mild ileus - Continue tube feeds at new regimen with new goal, DO NOT MODIFY except ordered by 2.7 mm Pulmonary perihilar nodule - monitor, f/u pulm rec's Acute renal insufficiency - improved - monitor Upper ext fracture s/p splint Bilateral Staghorn calculi DM 2 : suboptimal control - adjust Lantus for improved control Severe Anemia of chronic disease s/p transfusion Stage 4 sacral ulcer Hypernatremia: improved - monitor Severe constipation with impacted stool: resolved DNR D/C PLAN: * Continue all supportive care * Patient has extremely poor termination clerk prognosis and will benefit from Hospice care * Palliative care to meet with daughter again in next few days * Fever is improving, possible d/c back to [place] in 1-2 days once 24hr fever free. PROPHYLAXIS: Heparin, closely monitor hgb / PPI Problems: Subjective 24 Hr Interval Summary Free Text/Dictation No acute events overnight, Family meeting not able to be performed yesterday ( rescheduled). Exam/Review of Systems Vital Signs Vitals Vital Signs Date Time Temp Pulse Resp B/P Pulse Ox O2 Delivery O2 Flow Rate FiO2 11/29/16 11:26 97.8 101 18 107/59 99 11/29/16 09:47 30 Intake and Output 11/28/16 11/28/16 11/29/16 15:00 23:00 07:00 Intake Total 690 ml 1020 ml 550 ml Output Total 1300 ml 1050 ml 850 ml Balance -610 ml -30 ml -300 ml Exam Constitutional: frail, non-verbal, other (vegetative), No alert, No oriented Psych: No nl mood/affect Head: normocephalic ENMT: other (trach to vent) Respiratory: diminished breath sounds Cardiovascular: No murmurs/extra sounds, No regular rate and rhythm Gastrointestinal: bowel sounds (hypoactive), less distended, soft Musculoskeletal: other (daniel foot drop, functional quadriplegia, severe msc wasting) Neurological: unresponsive, No nl mental status Results Result Diagram: 11/29/16 0612 11/29/16 0612 Results 24 hrs Laboratory Tests Test 11/28/16 12:26 11/28/16 17:09 11/29/16 00:09 11/29/16 06:12 Bedside Glucose 232 H 190 241 H Anion Gap 22 H Basophils # 0.0 Basophils % 0.4 Blood Urea Nitrogen 16 Calcium Level 10.3 H Carbon Dioxide Level 20 L Chloride Level 108 Creatinine 0.78 Eosinophils # 0.2 Eosinophils % 3.0 Glucose Level 192 Hematocrit 30.9 L Hemoglobin 10.0 L Lymphocytes # 1.2 Lymphocytes % 15.8 Mean Corpuscular Hemoglobin 27.9 L Mean Corpuscular Hemoglobin Concent 32.4 Mean Corpuscular Volume 86.1 Mean Platelet Volume 10.4 Monocytes # 0.5 Monocytes % 6.5 Neutrophils # 5.2 Neutrophils % 70.5 Nucleated Red Blood Cells # 0.0 Nucleated Red Blood Cells % 0.0 Platelet Count 349 Potassium Level 4.1 Red Blood Count 3.59 L Red Cell Distribution Width 16.3 H Sodium Level 146 H White Blood Count 7.4 Test 11/29/16 06:25 Bedside Glucose 173 Medications Medications Current Medications Ondansetron HCl (Zofran Inj) 4 mg Q6H PRN IV NAUSEA AND/OR VOMITING; Start at 01:30 Acetaminophen (Tylenol Liquid) 650 mg Q6H PRN GTB ELEVATED TEMPERATURE Last administered on 11/28/16t 21:55; Admin Dose 650 MG; Start 11/16/16 at 01:30 Baclofen (Lioresal) 20 mg TID GTB Last administered on 11/29/16 08:56; Admin Dose 20 MG; Start 11/16/16 at 09:00 Magnesium Oxide (Mag-Ox 400) 400 mg BID GTB Last administered on 11/29/16 08: 55; Admin Dose 400 MG; Start 11/16/16 at 09:00 Lansoprazole (Prevacid) 30 mg DAILY@06 GTB Last administered on 11/23/16 05:33 ; Admin Dose 30 MG; Start 11/16/16 at 06:00; Status Future Hold Simethicone (Mylicon) 160 mg DAILY PRN GTB DISTENSION/GAS/BLOATING Last administered on 11/18/16 12:30; Admin Dose 160 MG; Start 11/16/16 at 01:30 Zinc Sulfate (Zinc Sulfate) 220 mg DAILY GTB Last administered on 11/29/16 08: 55; Admin Dose 220 MG; Start 11/16/16 at 09:00 Diphenhydramine HCl (Benadryl Liquid Cup) 25 mg Q6H PRN GTB ITCHING; Start at 02:00 Clonidine (Catapres) 0.1 mg Q6H PRN GTB SBP >160; Start 11/16/16 at 02:06 Miscellaneous Information 1 ea NOTE XX ; Start 11/16/16 at 11:30 Glucose (Glutose) 15 gm Q15M PRN PO DECREASED GLUCOSE; Start 11/16/16 at 11:30 Glucose (Glutose) 22.5 gm Q15M PRN PO DECREASED GLUCOSE; Start 11/16/16 at 11: 30 Dextrose (D50w Syringe) 25 ml Q15M PRN IV DECREASED GLUCOSE; Start 11/16/16 at 11:30 Dextrose (D50w Syringe) 50 ml Q15M PRN IV DECREASED GLUCOSE; Start 11/16/16 at 11:30 Glucagon (Glucagen) 1 mg Q15M PRN IM DECREASED GLUCOSE; Start 11/16/16 at 11:30 Glucose (Glutose) 15 gm Q15M PRN BUCCAL DECREASED GLUCOSE; Start 11/16/16 at 11 :30 Collagenase (Santyl) 1 applic DAILY TOP Last administered on 11/29/16 08:58; Admin Dose 1 APPLIC; Start 11/17/16 at 09:00 Diphenhydramine HCl (Benadryl) 50 mg Q6H PRN IV ALLERGIC REACTION Last administered on 11/17/16 22:51; Admin Dose 50 MG; Start 11/17/16 at 16:30 Magnesium Hydroxide (Milk Of Mag) 30 ml DAILY PRN PO CONSTIPATION Last administered on 11/26/16 08:55; Admin Dose 30 ML; Start 11/18/16 at 00:30 Ibuprofen (Motrin) 600 mg Q6H PRN PO PAIN OR TEMP ABOVE 38C Last administered on 11/24/16 22:26; Admin Dose 600 MG; Start 11/20/16 at 13:00 Linezolid (Zyvox) 600 mg BID PO Last administered on 11/29/16 08:56; Admin Dose 600 MG; Start 11/20/16 at 21:00 Polyethylene Glycol (Miralax) 17 gm DAILY NGT Last administered on 11/29/16 08 :56; Admin Dose 17 GM; Start 11/23/16 at 09:00 Heparin Sodium (Porcine) (Heparin (5000 Units/0.5 ml)) 5,000 unit BID SC Last administered on 11/29/16 08:58; Admin Dose 5,000 UNIT; Start 11/22/16 at 21:00 Metronidazole (Flagyl) 500 mg Q8 PO Last administered on 11/29/16 06:22; Admin Dose 500 MG; Start 11/23/16 at 14:00 Fluconazole (Diflucan) 100 mg DAILY GTB Last administered on 11/29/16 08:55; Admin Dose 100 MG; Start 11/23/16 at 14:00 Diltiazem HCl (Cardizem) 30 mg Q8 PEG Last administered on 11/29/16 06:22; Admin Dose 30 MG; Start 11/24/16 at 14:00 Metoprolol Tartrate 5 mg 5 mg Q4H PRN IV HR>110 Hold SBP<100; Start 11/24/16 at 13:30 Cefepime HCl (Maxipime 1gm/50 ml (Pmx)) 50 ml @ 100 mls/hr Q24H IVPB Last administered on 11/28/16 13:57; Admin Dose 100 MLS/HR; Start 11/25/16 at 14:00 Loratadine (Claritin) 10 mg DAILY PO Last administered on 11/29/16 08:56; Admin Dose 10 MG; Start 11/25/16 at 13:00 Famotidine (Pepcid Iv) 20 mg DAILY IV Last administered on 11/29/16 08:55; Admin Dose 20 MG; Start 11/26/16 at 09:00 Lactulose (Enulose) 20 gm Q12H GTB Last administered on 11/29/16 06:21; Admin Dose 20 GM; Start 11/26/16 at 18:00 Insulin Aspart (Novolog Insulin Pen) NOVOLOG *MODERATE* ALGORITHM Q6 SC Last administered on 11/29/16 00:15; Admin Dose 2 UNIT; Start 11/27/16 at 00:00 Insulin Glargine (Lantus) 35 unit DAILY@08 SC Last administered on 11/29/16 08 :57; Admin Dose 35 UNIT; Start 11/27/16 at 11:30 Metoprolol Tartrate (Lopressor) 12.5 mg BID PO Last administered on 11/29/16 08:56; Admin Dose 12.5 MG; Start 11/27/16 at 11:00 ASHLEY EMERY Nov 29, 2016 11:33
--- NOTE | 2016-11-29 12:38 | CONS ---
Date/Time of Note Date/Time of Note DATE: 11/29/16 TIME: 12:35 Consult Date/Type/Reason Admit Date/Time Nov 15, 2016 at 22:42 Initial Consult Date 11/18/16 Type of Consultation: Pulmonary Subjective Patient condition remains unchanged. Remains completely unresponsive on account of severe underlying multiple sclerosis. General examination; middle-aged woman currently in no distress remains unresponsive on ventilator via tracheostomy. Objective HEENT examination; supple neck, no JVD. Tracheostomy in place with clean insertion site. No neck masses. Chest examination; clear to auscultation bilaterally. S1-S2 audible, no murmurs. Regular rhythm. Abdomen examination; soft, G-tube in place. Nondistended. Bowel sounds audible. Extremity examination; no peripheral edema. 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 Vital Signs Date Time Temp Pulse Resp B/P Pulse Ox O2 Delivery O2 Flow Rate FiO2 11/29/16 11:35 106 19 98 30 11/29/16 11:26 97.8 107/59 Intake and Output 11/28/16 11/28/16 11/29/16 15:00 23:00 07:00 Intake Total 690 ml 1020 ml 550 ml Output Total 1300 ml 1050 ml 850 ml Balance -610 ml -30 ml -300 ml Results/Medications Result Diagram: 11/29/16 0612 11/29/16 0612 Results 24 hrs Laboratory Tests Test 11/28/16 17:09 11/29/16 00:09 11/29/16 06:12 11/29/16 06:25 Bedside Glucose 190 241 H 173 Anion Gap 22 H Basophils # 0.0 Basophils % 0.4 Blood Urea Nitrogen 16 Calcium Level 10.3 H Carbon Dioxide Level 20 L Chloride Level 108 Creatinine 0.78 Eosinophils # 0.2 Eosinophils % 3.0 Glucose Level 192 Hematocrit 30.9 L Hemoglobin 10.0 L Lymphocytes # 1.2 Lymphocytes % 15.8 Mean Corpuscular Hemoglobin 27.9 L Mean Corpuscular Hemoglobin Concent 32.4 Mean Corpuscular Volume 86.1 Mean Platelet Volume 10.4 Monocytes # 0.5 Monocytes % 6.5 Neutrophils # 5.2 Neutrophils % 70.5 Nucleated Red Blood Cells # 0.0 Nucleated Red Blood Cells % 0.0 Platelet Count 349 Potassium Level 4.1 Red Blood Count 3.59 L Red Cell Distribution Width 16.3 H Sodium Level 146 H White Blood Count 7.4 Test 11/29/16 11:49 Bedside Glucose 210 Medications Current Medications Ondansetron HCl (Zofran Inj) 4 mg Q6H PRN IV NAUSEA AND/OR VOMITING; Start at 01:30 Acetaminophen (Tylenol Liquid) 650 mg Q6H PRN GTB ELEVATED TEMPERATURE Last administered on 11/28/16 21:55; Admin Dose 650 MG; Start 11/16/16 at 01:30 Baclofen (Lioresal) 20 mg TID GTB Last administered on 11/29/16 08:56; Admin Dose 20 MG; Start 11/16/16 at 09:00 Magnesium Oxide (Mag-Ox 400) 400 mg BID GTB Last administered on 11/29/16 08: 55; Admin Dose 400 MG; Start 11/16/16 at 09:00 Lansoprazole (Prevacid) 30 mg DAILY@06 GTB Last administered on 11/23/16 05:33 ; Admin Dose 30 MG; Start 11/16/16 at 06:00; Status Future Hold Simethicone (Mylicon) 160 mg DAILY PRN GTB DISTENSION/GAS/BLOATING Last administered on 11/18/16 12:30; Admin Dose 160 MG; Start 11/16/16 at 01:30 Zinc Sulfate (Zinc Sulfate) 220 mg DAILY GTB Last administered on 11/29/16 08: 55; Admin Dose 220 MG; Start 11/16/16 at 09:00 Diphenhydramine HCl (Benadryl Liquid Cup) 25 mg Q6H PRN GTB ITCHING; Start at 02:00 Clonidine (Catapres) 0.1 mg Q6H PRN GTB SBP >160; Start 11/16/16 at 02:06 Miscellaneous Information 1 ea NOTE XX ; Start 11/16/16 at 11:30 Glucose (Glutose) 15 gm Q15M PRN PO DECREASED GLUCOSE; Start 11/16/16 at 11:30 Glucose (Glutose) 22.5 gm Q15M PRN PO DECREASED GLUCOSE; Start 11/16/16 at 11: 30 Dextrose (D50w Syringe) 25 ml Q15M PRN IV DECREASED GLUCOSE; Start 11/16/16 at 11:30 Dextrose (D50w Syringe) 50 ml Q15M PRN IV DECREASED GLUCOSE; Start 11/16/16 at 11:30 Glucagon (Glucagen) 1 mg Q15M PRN IM DECREASED GLUCOSE; Start 11/16/16 at 11:30 Glucose (Glutose) 15 gm Q15M PRN BUCCAL DECREASED GLUCOSE; Start 11/16/16 at 11 :30 Collagenase (Santyl) 1 applic DAILY TOP Last administered on 11/29/16 08:58; Admin Dose 1 APPLIC; Start 11/17/16 at 09:00 Diphenhydramine HCl (Benadryl) 50 mg Q6H PRN IV ALLERGIC REACTION Last administered on 11/17/16 22:51; Admin Dose 50 MG; Start 11/17/16 at 16:30 Magnesium Hydroxide (Milk Of Mag) 30 ml DAILY PRN PO CONSTIPATION Last administered on 11/26/16 08:55; Admin Dose 30 ML; Start 11/18/16 at 00:30 Ibuprofen (Motrin) 600 mg Q6H PRN PO PAIN OR TEMP ABOVE 38C Last administered on 11/24/16 22:26; Admin Dose 600 MG; Start 11/20/16 at 13:00 Linezolid (Zyvox) 600 mg BID PO Last administered on 11/29/16 08:56; Admin Dose 600 MG; Start 11/20/16 at 21:00 Polyethylene Glycol (Miralax) 17 gm DAILY NGT Last administered on 11/29/16 08 :56; Admin Dose 17 GM; Start 11/23/16 at 09:00 Heparin Sodium (Porcine) (Heparin (5000 Units/0.5 ml)) 5,000 unit BID SC Last administered on 11/29/16 08:58; Admin Dose 5,000 UNIT; Start 11/22/16 at 21:00 Metronidazole (Flagyl) 500 mg Q8 PO Last administered on 11/29/16 06:22; Admin Dose 500 MG; Start 11/23/16 at 14:00 Fluconazole (Diflucan) 100 mg DAILY GTB Last administered on 11/29/16 08:55; Admin Dose 100 MG; Start 11/23/16 at 14:00 Diltiazem HCl (Cardizem) 30 mg Q8 PEG Last administered on 11/29/16 06:22; Admin Dose 30 MG; Start 11/24/16 at 14:00 Metoprolol Tartrate 5 mg 5 mg Q4H PRN IV HR>110 Hold SBP<100; Start 11/24/16 at 13:30 Cefepime HCl (Maxipime 1gm/50 ml (Pmx)) 50 ml @ 100 mls/hr Q24H IVPB Last administered on 11/28/16 13:57; Admin Dose 100 MLS/HR; Start 11/25/16 at 14:00 Loratadine (Claritin) 10 mg DAILY PO Last administered on 11/29/16 08:56; Admin Dose 10 MG; Start 11/25/16 at 13:00 Famotidine (Pepcid Iv) 20 mg DAILY IV Last administered on 11/29/16 08:55; Admin Dose 20 MG; Start 11/26/16 at 09:00 Lactulose (Enulose) 20 gm Q12H GTB Last administered on 11/29/16 06:21; Admin Dose 20 GM; Start 11/26/16 at 18:00 Insulin Aspart (Novolog Insulin Pen) NOVOLOG *MODERATE* ALGORITHM Q6 SC Last administered on 11/29/16 11:52; Admin Dose 4 UNIT; Start 11/27/16 at 00:00 Insulin Glargine (Lantus) 35 unit DAILY@08 SC Last administered on 11/29/16 08 :57; Admin Dose 35 UNIT; Start 11/27/16 at 11:30 Metoprolol Tartrate (Lopressor) 12.5 mg BID PO Last administered on 11/29/16 08:56; Admin Dose 12.5 MG; Start 11/27/16 at 11:00 Assessment/Plan Chief Complaint/Hosp Course Patient is a 56-year-old lady who was admitted for treatment of sepsis as well as anemia. Pulmonary consultation obtained for management of respiratory failure. Patient on mechanical ventilation chronically due to underlying severe multiple sclerosis. History present illness; 6-year-old lady admitted for treatment of severe sepsis as well as anemia. She was obtained from medical records as the patient is unable to give any history whatsoever by herself. The time I saw the patient the patient is on mechanical ventilation via tracheostomy patient is unresponsive. Patient on medical records, the patient has remained hemodynamically stable. Past medical history; 1. History of severe multiple sclerosis ventilator dependent. 2. History of multiple episodes of UTI. 3. Status post G-tube and tracheostomy. 4. Decubitus ulcers. Next Medications; were reviewed. Allergies; are to cephalosporins, penicillins, Levaquin and vancomycin. Social history; noncontributory. Family history; not available. Occupational history; patient is disabled. Review of systems; currently unable to be obtained. General examination; middle aged woman, on ventilator via tracheostomy unresponsive. Currently in no distress. Problems: Additional Assessment/Plan Ventilator settings; AC of 14, tidal volume 450, PEEP of 5, 30% FiO2. Next Assessment and recommendations; next 1. Patient with advanced multiple sclerosis admitted for UTI and sepsis as well as sacral decubitus ulcer. 2. Severe mental unresponsiveness. 3. Chronic respiratory failure. Continue current supportive care. Overall prognosis remains poor. ARYAN COLLADO Nov 29, 2016 12:38
--- NOTE | 2016-11-29 13:23 | CONS ---
Date/Time of Note Date/Time of Note DATE: 11/29/16 TIME: 13:22 Assessment/Plan Assessment/Plan Chief Complaint/Hosp Course SUBJECTIVE: No events overnight. No fevers. Th ANTIMICROBIALS: 1. Tobramycin inhalation. 2. Flagyl 3. Fluconazole. 4. Cefepime 5. Zyvox. MICROBIOLOGY: Urine culture grew Klebsiella ESBL and Pseudomonas aeruginosa, which were multidrug resistant, susceptible to cefepime, amikacin, only Pseudomonas aeruginosa was susceptible. INDWELLINGS: Trach, PEG, Joel, rectal tube, and PICC line placed on 2016. ALLERGIES: 1. LEVAQUIN. 2. ? CEPHALOSPORINS. 3. PENICILLIN. 4. VANCOMYCIN. OBJECTIVE: GENERAL: This is a chronically ill-appearing, middle-aged woman who is lying comfortably in bed. The patient is nonverbal, nonresponsive. HEENT: Head atraumatic, normocephalic. Sclerae anicteric. Buccal mucosa dry. NECK: Supple. Tracheostomy present. CHEST: Rise symmetrical. Breath sounds diminished. HEART: S1, S2. ABDOMEN: Distended, soft. G-tube site clear. Bowel sounds present. EXTREMITIES: Wasted with trace edema. SKIN: With multiple unstageable decubiti. ASSESSMENT: 1. Severe sepsis with ongoing fevers. 2. Polymicrobial urinary tract infection. 3. Multiple unstageable wounds, possibly infected. 4. Acute renal failure. 5. Chronic respiratory failure with sputum culture grew multidrug resistant pseudomonas and Morganella morganii. 6. Advanced multiple sclerosis with functional quadriplegia. 7. S/p fecal impaction. PLAN: Remains stable, fevers resolved, continue local wound care, complete abx for 7 more days DW staff Problems: Consultation Date/Type/Reason Admit Date/Time Nov 15, 2016 at 22:42 Initial Consult Date 11/18/16 Type of Consultation: ID Exam/Review of Systems Vital Signs Vitals Vital Signs Date Time Temp Pulse Resp B/P Pulse Ox O2 Delivery O2 Flow Rate FiO2 11/29/16 12:42 110 11/29/16 11:35 19 98 30 11/29/16 11:26 97.8 107/59 Intake and Output 11/28/16 11/28/16 11/29/16 15:00 23:00 07:00 Intake Total 690 ml 1020 ml 550 ml Output Total 1300 ml 1050 ml 850 ml Balance -610 ml -30 ml -300 ml Results Result Diagram: 11/29/16 0612 11/29/16 0612 Results 24 hrs Laboratory Tests Test 11/28/16 17:09 11/29/16 00:09 11/29/16 06:12 11/29/16 06:25 Bedside Glucose 190 241 H 173 Anion Gap 22 H Basophils # 0.0 Basophils % 0.4 Blood Urea Nitrogen 16 Calcium Level 10.3 H Carbon Dioxide Level 20 L Chloride Level 108 Creatinine 0.78 Eosinophils # 0.2 Eosinophils % 3.0 Glucose Level 192 Hematocrit 30.9 L Hemoglobin 10.0 L Lymphocytes # 1.2 Lymphocytes % 15.8 Mean Corpuscular Hemoglobin 27.9 L Mean Corpuscular Hemoglobin Concent 32.4 Mean Corpuscular Volume 86.1 Mean Platelet Volume 10.4 Monocytes # 0.5 Monocytes % 6.5 Neutrophils # 5.2 Neutrophils % 70.5 Nucleated Red Blood Cells # 0.0 Nucleated Red Blood Cells % 0.0 Platelet Count 349 Potassium Level 4.1 Red Blood Count 3.59 L Red Cell Distribution Width 16.3 H Sodium Level 146 H White Blood Count 7.4 Test 11/29/16 11:49 Bedside Glucose 210 Medications Medications Current Medications Ondansetron HCl (Zofran Inj) 4 mg Q6H PRN IV NAUSEA AND/OR VOMITING; Start at 01:30 Acetaminophen (Tylenol Liquid) 650 mg Q6H PRN GTB ELEVATED TEMPERATURE Last administered on 11/28/16 21:55; Admin Dose 650 MG; Start 11/16/16 at 01:30 Baclofen (Lioresal) 20 mg TID GTB Last administered on 11/29/16 08:56; Admin Dose 20 MG; Start 11/16/16 at 09:00 Magnesium Oxide (Mag-Ox 400) 400 mg BID GTB Last administered on 11/29/16 08: 55; Admin Dose 400 MG; Start 11/16/16 at 09:00 Lansoprazole (Prevacid) 30 mg DAILY@06 GTB Last administered on 11/23/16 05:33 ; Admin Dose 30 MG; Start 11/16/16 at 06:00; Status Future Hold Simethicone (Mylicon) 160 mg DAILY PRN GTB DISTENSION/GAS/BLOATING Last administered on 11/18/16 12:30; Admin Dose 160 MG; Start 11/16/16 at 01:30 Zinc Sulfate (Zinc Sulfate) 220 mg DAILY GTB Last administered on 11/29/16 08: 55; Admin Dose 220 MG; Start 11/16/16 at 09:00 Diphenhydramine HCl (Benadryl Liquid Cup) 25 mg Q6H PRN GTB ITCHING; Start at 02:00 Clonidine (Catapres) 0.1 mg Q6H PRN GTB SBP >160; Start 11/16/16 at 02:06 Miscellaneous Information 1 ea NOTE XX ; Start 11/16/16 at 11:30 Glucose (Glutose) 15 gm Q15M PRN PO DECREASED GLUCOSE; Start 11/16/16 at 11:30 Glucose (Glutose) 22.5 gm Q15M PRN PO DECREASED GLUCOSE; Start 11/16/16 at 11: 30 Dextrose (D50w Syringe) 25 ml Q15M PRN IV DECREASED GLUCOSE; Start 11/16/16 at 11:30 Dextrose (D50w Syringe) 50 ml Q15M PRN IV DECREASED GLUCOSE; Start 11/16/16 at 11:30 Glucagon (Glucagen) 1 mg Q15M PRN IM DECREASED GLUCOSE; Start 11/16/16 at 11:30 Glucose (Glutose) 15 gm Q15M PRN BUCCAL DECREASED GLUCOSE; Start 11/16/16 at 11 :30 Collagenase (Santyl) 1 applic DAILY TOP Last administered on 11/29/16 08:58; Admin Dose 1 APPLIC; Start 11/17/16 at 09:00 Diphenhydramine HCl (Benadryl) 50 mg Q6H PRN IV ALLERGIC REACTION Last administered on 11/17/16 22:51; Admin Dose 50 MG; Start 11/17/16 at 16:30 Magnesium Hydroxide (Milk Of Mag) 30 ml DAILY PRN PO CONSTIPATION Last administered on 11/26/16 08:55; Admin Dose 30 ML; Start 11/18/16 at 00:30 Ibuprofen (Motrin) 600 mg Q6H PRN PO PAIN OR TEMP ABOVE 38C Last administered on 11/24/16 22:26; Admin Dose 600 MG; Start 11/20/16 at 13:00 Linezolid (Zyvox) 600 mg BID PO Last administered on 11/29/16 08:56; Admin Dose 600 MG; Start 11/20/16 at 21:00 Polyethylene Glycol (Miralax) 17 gm DAILY NGT Last administered on 11/29/16 08 :56; Admin Dose 17 GM; Start 11/23/16 at 09:00 Heparin Sodium (Porcine) (Heparin (5000 Units/0.5 ml)) 5,000 unit BID SC Last administered on 11/29/16 08:58; Admin Dose 5,000 UNIT; Start 11/22/16 at 21:00 Metronidazole (Flagyl) 500 mg Q8 PO Last administered on 11/29/16 06:22; Admin Dose 500 MG; Start 11/23/16 at 14:00 Fluconazole (Diflucan) 100 mg DAILY GTB Last administered on 11/29/16 08:55; Admin Dose 100 MG; Start 11/23/16 at 14:00 Diltiazem HCl (Cardizem) 30 mg Q8 PEG Last administered on 11/29/16 06:22; Admin Dose 30 MG; Start 11/24/16 at 14:00 Metoprolol Tartrate 5 mg 5 mg Q4H PRN IV HR>110 Hold SBP<100; Start 11/24/16 at 13:30 Cefepime HCl (Maxipime 1gm/50 ml (Pmx)) 50 ml @ 100 mls/hr Q24H IVPB Last administered on 11/28/16 13:57; Admin Dose 100 MLS/HR; Start 11/25/16 at 14:00 Loratadine (Claritin) 10 mg DAILY PO Last administered on 11/29/16 08:56; Admin Dose 10 MG; Start 11/25/16 at 13:00 Famotidine (Pepcid Iv) 20 mg DAILY IV Last administered on 11/29/16 08:55; Admin Dose 20 MG; Start 11/26/16 at 09:00 Lactulose (Enulose) 20 gm Q12H GTB Last administered on 11/29/16 06:21; Admin Dose 20 GM; Start 11/26/16 at 18:00 Insulin Aspart (Novolog Insulin Pen) NOVOLOG *MODERATE* ALGORITHM Q6 SC Last administered on 11/29/16 11:52; Admin Dose 4 UNIT; Start 11/27/16 at 00:00 Insulin Glargine (Lantus) 35 unit DAILY@08 SC Last administered on 11/29/16 08 :57; Admin Dose 35 UNIT; Start 11/27/16 at 11:30 Metoprolol Tartrate (Lopressor) 12.5 mg BID PO Last administered on 11/29/16 08:56; Admin Dose 12.5 MG; Start 11/27/16 at 11:00 FLEX DENNISON NP Nov 29, 2016 13:23
[2016-11-29] MEDS: CEFEPIME 1GM/50 ML (PMX) 50 ML IVPB SCH (13:35)
--- NOTE | 2016-11-29 17:37 | RADRPT ---
Vent Rate: 143 bpm RR Interval: 0 msec IA Interval: 120 msec QRS Duration: 58 msec QT Interval: 328 msec QTC Interval: 506 msec P-R-T [place]: 57 - 73 - [address] amp; T wave abnormality, consider anterolateral ischemia Abnormal ECG Electronically Signed By: Ajay Horner [id number]
[2016-11-29] MEDS: ACETAMINOPHEN 650MG/20.3ML CUP GTB PRN (20:44)
[2016-11-30] VITALS (18 sets, daily range): BP systolic 103–128; BP diastolic 65–79; PULSE 86–103; RESP 16–25
[2016-11-30] MEDS: LACTULOSE 30ML CUP GTB SCH (05:57)
[2016-11-30] MEDS: DILTIAZEM 30 MG TAB PEG SCH ×2 (05:57→12:30)
[2016-11-30] MEDS: INSULIN ASPART [NOVOLOG] 3 ML PEN SC SCH ×3 (05:58→12:37)
[2016-11-30] MEDS: metroNIDAZOLE 500 MG TAB PO SCH ×2 (05:58→12:29)
[2016-11-30 06:09] LABS: ADD SCAN DIFF NO
[2016-11-30 06:13] LABS: BASOPHILS % 0.5 % (0.0-2.0); EOSINOPHILS # 0.3 10^3/ul (0.0-0.5); EOSINOPHILS % 3.7 % (0.0-7.0); HEMATOCRIT 30.2 % (37.0-47.0); HEMOGLOBIN 9.6 g/dl (12.0-16.0); LYMPHOCYTES # 1.7 10^3/ul (0.8-2.9); LYMPHOCYTES % 19.3 % (15.0-51.0); MEAN CORPUSCULAR HEMOGLOBIN 28.2 pg (29.0-33.0); MEAN CORPUSCULAR HGB CONC 31.8 g/dl (32.0-37.0); MEAN CORPUSCULAR VOLUME 88.6 fl (82.0-101.0); MEAN PLATELET VOLUME 10.7 fl (7.4-10.4); MONOCYTE # 0.6 10^3/ul (0.3-0.9); MONOCYTES % 6.7 % (0.0-11.0); NEUTROPHIL # 5.8 10^3/ul (1.6-7.5); NEUTROPHILS % 65.9 % (39.0-77.0); NUCLEATED RED BLOOD CELLS% 0.2 /100WBC (0.0-0.0); PLATELET COUNT 395 10^3/UL (140-415); RED BLOOD COUNT 3.41 10^6/ul (4.20-5.40); WHITE BLOOD COUNT 8.8 10^3/ul (4.8-10.8)
[2016-11-30 06:35] LABS: POTASSIUM 4.3 mmol/L (3.5-5.1)
[2016-11-30 06:37] LABS: CREATININE 0.85 mg/dl (0.44-1.00)
[2016-11-30 06:38] LABS: CALCIUM 10.1 mg/dl (8.4-10.2)
[2016-11-30] MEDS: FAMOTIDINE 20 MG INJ IV SCH (08:41)
[2016-11-30] MEDS: POLYETHYLENE GLYCOL 17 GM PACKET NGT SCH (08:41)
[2016-11-30] MEDS: ACETAMINOPHEN 650MG/20.3ML CUP GTB PRN (08:41)
[2016-11-30] MEDS: MAGNESIUM OXIDE 400 MG TAB GTB SCH (08:42)
[2016-11-30] MEDS: FLUCONAZOLE 100 MG TAB GTB SCH (08:42)
[2016-11-30] MEDS: ZYVOX 600 MG TAB PO SCH (08:42)
[2016-11-30] MEDS: ZINC SULFATE 220 MG CAP GTB SCH (08:42)
[2016-11-30] MEDS: METOPROLOL 25 MG TAB PO SCH (08:43)
[2016-11-30] MEDS: BACLOFEN 10 MG TAB GTB SCH ×2 (08:43→12:29)
[2016-11-30] MEDS: LORATADINE 10 MG TAB PO SCH (08:43)
[2016-11-30] MEDS: COLLAGENASE 30 GM TUBE TOP SCH (08:44)
[2016-11-30] MEDS: INSULIN GLARGINE [LANtus] 3 ML PEN SC SCH (08:49)
[2016-11-30] MEDS: HEPARIN 5,000 UNIT/0.5 ML SYG SC SCH (08:49)
[2016-11-30] MEDS: ALBUTEROL HFA 8 GM INHALER INH PRN (09:58)
[2016-11-30] MEDS: TOBRAMYCIN/0.25NS 300 MG/5 ML INHAL NEB SCH (09:58)
--- NOTE | 2016-11-30 12:02 | DS ---
Date/Time of Note Date/Time of Note DATE: 11/30/16 TIME: 11:51 Discharge Summary Admission/Discharge Info Admit Date/Time Nov 15, 2016 at 22:42 Discharge Date/Time Final Diagnosis 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 Chronic resp failure Ventilator dependent via trach Intractable Sepsis 2/2 - MDR multidrug resistant Pseudomonas + Morganella morganii., Chronic dysphagia s/p PEG tube - tube feedings UTI - + for ESBL K pneumo / Pseudomonas UTI 2.7 mm Pulmonary perihilar nodule Acute renal insufficiency - improved Upper ext fracture s/p splint Bilateral Staghorn calculi DM 2 Severe Anemia of chronic disease s/p transfusion Severe sepsis Multiple unstageable wounds, possibly infected. Acute renal failure. Chronic respiratory failure - trach Stage 4 sacral ulcer Hypernatremia: improving - on free H2O Severe constipation with impacted stool: resolved DNR D/C MEDICATIONS ( see med rec sheet): 1. Tylenol. 2. DuoNeb. 4. Baclofen 10 mg. 5. Clonidine 0.1 mg. 6. Santyl. 8. Benadryl. 9. Insulin sliding scale via NovoLog. 10. Levemir 40 units. 11. Prevacid 30 mg. 12. Magnesium oxide 400 mg. 13. Metoprolol 25 mg. 14. Zofran 4 mg. 15. Simethicone 17. Zinc sulfate 220 mg. 18. Lipitor 40 mg 19. Gemfibrozil 600 mg 20. Loratadine 10 mg 21. Cetirizine ointment. 20. Free water 100 mL via G-tube q.6h x 48 hrs 21. Tobramycin inhalation 300 mg BID x 7 days 22. Flagyl 500 mg PO Q8Hrs x 7 days 23. Fluconazole 100 mg daily x 7 days 24. Cefepime 1 GM IV QDAY x 7 days 25. Zyvox 600 mg PO BID x 7 days Hospital Course This is an unfortunate 56-year-old female who [facility] a detention facility with a history of CVA, multiple sclerosis, vent and trach dependent, PEG tube dependent, chronic respiratory failure, was bed bound, history of multiple pressure ulcers, recent history of ESBL urinary tract infection and possible pneumonitis, upper respiratory tract infection, anemia of chronic disease who was sent from [facility] for anemia. Upon arrival to emergency room, the patient's hemoglobin was found to be 8, creatinine 1.59, sodium 147, calcium 12.5, lipase of 1351. The patient's G-tube feeding was placed on hold, also Gemfibrozil and statin was placed on hold. She was started on IV fluid. Infectious disease doctor was consulted. Patient was typed and screened and transfused 2 units of packed red blood cells. Hemoglobin and hematocrit have been stable after with having the G-tube feeding , the patient's lipase started to improve significantly. Patient's G-tube has been started on 11/17/2016 and her lipase has continued to be stable. In regard to her anemia, the patient's hemoglobin has improved status post transfusion. This is likely secondary to ileus. The patient as stated above was started on IV antibiotics. IMPRESSION: Acute on chronic renal disease. The patient was started on IV fluid. Her renal panel has been improving. Hypertension, her blood pressure is well controlled on metoprolol. The patient is vent and trach dependent and was seen by respiratory therapy. Her vitals have been stable, oxygen saturation 97% to 100% on FIO2 30%. The patient was evaluated by infectious disease doctor, the patient due to her history of ESBL was placed on amikacin and daptomycin by infectious disease doctor. The patient's urine was found to be positive for urinary tract infection with leukocytes that are positive too. At this time, the patient is afebrile. Also PICC placement performed. Pt family met with palliative team, pt was made DNR. Also seen by ID team who recommended IV abx treatment for her infections (see med rec sheet for list of meds). Home Meds Reported Medications Simethicone* (Anti-Gas/80*) 80 Mg Tab.chew, 160 MG GTB DAILY Y for DISTENSION/ GAS/BLOATING, TAB.CHEW 11/15/16 Metoprolol Tartrate* (Lopressor*) 25 Mg Tab, 25 MG GTB BID, #60 TAB HOLD IF SBP<110; HR<60 10/14/16 Baclofen* (Baclofen*) 20 Mg Tablet, 20 MG GTB TID, TAB 10/14/16 Magnesium Oxide* (Magnesium Oxide*) 400 Mg Tablet, 400 MG GTB BID, TAB 10/14/16 Gemfibrozil* (Gemfibrozil*) 600 Mg Tablet, 600 MG GTB BID, TAB 10/14/16 Clonidine Hcl* (Clonidine Hcl*) 0.1 Mg Tab, 0.1 MG GTB Q8, TAB IF SBP>160 10/14/16 Atorvastatin* (Atorvastatin*) 40 Mg Tablet, 40 MG GTB QHS, #30 TAB 10/14/16 Zinc Sulfate* (Zinc Sulfate*) 220 Mg Tablet, 220 MG GTB DAILY, TAB 10/14/16 Insulin Detemir (Levemir Flextouch) 100 Unit/1 Ml Insuln.pen, 40 UNIT SQ QAM 10/14/16 Acetaminophen* (Acetaminophen*) 650 Mg Tablet, 650 MG GTB Q4 Y for ELEVATED TEMPERATURE, #30 TAB OR FEVER 10/14/16 Diphenhydramine Hcl* (Diphenhydramine Hcl*) 25 Mg Capsule, 25 MG GTB Q4 Y for ITCHING, CAP 10/14/16 Pantoprazole* (Pantoprazole*) 40 Mg Tablet.dr, 40 MG GTB AC BREAKFAST, TAB 10/14/16 Pending Labs Laboratory Tests Test 11/29/16 17:27 11/30/16 00:13 11/30/16 05:50 11/30/16 05:55 Bedside Glucose 164mg/dL (70-220) 172mg/dL (70-220) 172mg/dL (70-220) Anion Gap 23 (8-16) Basophils # 0.010^3/ul (0.0-0.1) Basophils % 0.5% (0.0-2.0) Blood Urea Nitrogen 22mg/dl (7-20) Calcium Level 10.1mg/dl (8.4-10.2) Carbon Dioxide Level 22mmol/L (21-31) Chloride Level 107mmol/L (97-110) Creatinine 0.85mg/dl (0.44-1.00) Eosinophils # 0.310^3/ul (0.0-0.5) Eosinophils % 3.7% (0.0-7.0) Glucose Level 162mg/dl (70-220) Hematocrit 30.2% (37.0-47.0) Hemoglobin 9.6g/dl (12.0-16.0) Lymphocytes # 1.710^3/ul (0.8-2.9) Lymphocytes % 19.3% (15.0-51.0) Mean Corpuscular Hemoglobin 28.2pg (29.0-33.0) Mean Corpuscular Hemoglobin Concent 31.8g/dl (32.0-37.0) Mean Corpuscular Volume 88.6fl (82.0-101.0) Mean Platelet Volume 10.7fl (7.4-10.4) Monocytes # 0.610^3/ul (0.3-0.9) Monocytes % 6.7% (0.0-11.0) Neutrophils # 5.810^3/ul (1.6-7.5) Neutrophils % 65.9% (39.0-77.0) Nucleated Red Blood Cells # 0.010^3/ul (0.0-0.0) Nucleated Red Blood Cells % 0.2/100WBC (0.0-0.0) Platelet Count 71057^3/UL (140-415) Potassium Level 4.3mmol/L (3.5-5.1) Red Blood Count 3.4110^6/ul (4.20-5.40) Red Cell Distribution Width 17.0% (11.5-14.5) Sodium Level 148mmol/L (135-144) White Blood Count 8.810^3/ul (4.8-10.8) Test 11/30/16 08:08 Bedside Glucose 160mg/dL (70-220) ASHLEY EMERY Nov 30, 2016 12:01
--- NOTE | 2016-11-30 12:24 | CONS ---
Date/Time of Note Date/Time of Note DATE: 11/30/16 TIME: 12:22 Assessment/Plan Assessment/Plan Chief Complaint/Hosp Course Patient is a 56-year-old lady who was admitted for treatment of sepsis as well as anemia. Pulmonary consultation obtained for management of respiratory failure. Patient on mechanical ventilation chronically due to underlying severe multiple sclerosis. History present illness; 6-year-old lady admitted for treatment of severe sepsis as well as anemia. She was obtained from medical records as the patient is unable to give any history whatsoever by herself. The time I saw the patient the patient is on mechanical ventilation via tracheostomy patient is unresponsive. Patient on medical records, the patient has remained hemodynamically stable. Past medical history; 1. History of severe multiple sclerosis ventilator dependent. 2. History of multiple episodes of UTI. 3. Status post G-tube and tracheostomy. 4. Decubitus ulcers. Next Medications; were reviewed. Allergies; are to cephalosporins, penicillins, Levaquin and vancomycin. Social history; noncontributory. Family history; not available. Occupational history; patient is disabled. Review of systems; currently unable to be obtained. General examination; middle aged woman, on ventilator via tracheostomy unresponsive. Currently in no distress. Problems: Additional Assessment/Plan Ventilator settings; AC of 14, tidal volume 450, PEEP of 5, 30% FiO2. Assessment recommendations; 1. Patient admitted for severe sepsis due to sacral decubitus ulcers. Currently on appropriate antibiotic regimen. 2. Chronic respiratory failure on account of advanced multiple sclerosis. Patient remains ventilator dependent. 3. Severe encephalopathy. 4. Stable diabetes and hypertension. Continue current supportive care. Overall prognosis remains poor. Consultation Date/Type/Reason Admit Date/Time Nov 15, 2016 at 22:42 Initial Consult Date 11/18/16 Type of Consultation: Pulmonary 24 HR Interval Summary Free Text/Dictation Patient condition remains stable. Remains unresponsive on account of advanced multiple sclerosis. Also remains ventilator dependent. General examination; middle-aged woman, on ventilator via tracheostomy currently in no distress. Unresponsive. Exam/Review of Systems Vital Signs Vitals Vital Signs Date Time Temp Pulse Resp B/P Pulse Ox O2 Delivery O2 Flow Rate FiO2 11/30/16 11:15 98.6 97 24 121/79 96 11/30/16 09:58 30 Intake and Output 11/29/16 11/29/16 11/30/16 14:59 22:59 06:59 Intake Total 770 ml 550 ml Output Total 600 ml 650 ml Balance 170 ml -100 ml Exam H EENT examination; supple neck, no JVD. No lymphadenopathy. Midline trachea. Tracheostomy in place. Pupils are midsize and reactive to light. Chest examination; diminished but clear breath sounds bilaterally. S1-S2 audible, no murmurs. Regular rhythm. Abdomen examination; soft, G-tube in place. No organomegaly. Nondistended abdomen. Bowel sounds audible. Extremity examination; no edema. Back examination; dressing applied over sacral area. DAMPPROOFER examination; patient remains unresponsive. Results Result Diagram: 11/30/16 0555 11/30/16 0555 Results 24 hrs Laboratory Tests Test 11/29/16 17:27 11/30/16 00:13 11/30/16 05:50 11/30/16 05:55 Bedside Glucose 164 172 172 Anion Gap 23 H Basophils # 0.0 Basophils % 0.5 Blood Urea Nitrogen 22 H Calcium Level 10.1 Carbon Dioxide Level 22 Chloride Level 107 Creatinine 0.85 Eosinophils # 0.3 Eosinophils % 3.7 Glucose Level 162 Hematocrit 30.2 L Hemoglobin 9.6 L Lymphocytes # 1.7 Lymphocytes % 19.3 Mean Corpuscular Hemoglobin 28.2 L Mean Corpuscular Hemoglobin Concent 31.8 L Mean Corpuscular Volume 88.6 Mean Platelet Volume 10.7 H Monocytes # 0.6 Monocytes % 6.7 Neutrophils # 5.8 Neutrophils % 65.9 Nucleated Red Blood Cells # 0.0 Nucleated Red Blood Cells % 0.2 H Platelet Count 395 Potassium Level 4.3 Red Blood Count 3.41 L Red Cell Distribution Width 17.0 H Sodium Level 148 H White Blood Count 8.8 Test 11/30/16 08:08 Bedside Glucose 160 Medications Medications Current Medications Ondansetron HCl (Zofran Inj) 4 mg Q6H PRN IV NAUSEA AND/OR VOMITING; Start at 01:30 Acetaminophen (Tylenol Liquid) 650 mg Q6H PRN GTB ELEVATED TEMPERATURE Last administered on 11/30/16 08:41; Admin Dose 650 MG; Start 11/16/16 at 01:30 Baclofen (Lioresal) 20 mg TID GTB Last administered on 11/30/16 08:43; Admin Dose 20 MG; Start 11/16/16 at 09:00 Magnesium Oxide (Mag-Ox 400) 400 mg BID GTB Last administered on 11/30/16 08:42 ; Admin Dose 400 MG; Start 11/16/16 at 09:00 Lansoprazole (Prevacid) 30 mg DAILY@06 GTB Last administered on 11/23/16 05:33 ; Admin Dose 30 MG; Start 11/16/16 at 06:00; Status Future Hold Simethicone (Mylicon) 160 mg DAILY PRN GTB DISTENSION/GAS/BLOATING Last administered on 11/30/16 08:43; Admin Dose 160 MG; Start 11/16/16 at 01:30 Zinc Sulfate (Zinc Sulfate) 220 mg DAILY GTB Last administered on 11/30/16 08: 42; Admin Dose 220 MG; Start 11/16/16 at 09:00 Diphenhydramine HCl (Benadryl Liquid Cup) 25 mg Q6H PRN GTB ITCHING; Start at 02:00 Clonidine (Catapres) 0.1 mg Q6H PRN GTB SBP >160; Start 11/16/16 at 02:06 Miscellaneous Information 1 ea NOTE XX ; Start 11/16/16 at 11:30 Glucose (Glutose) 15 gm Q15M PRN PO DECREASED GLUCOSE; Start 11/16/16 at 11:30 Glucose (Glutose) 22.5 gm Q15M PRN PO DECREASED GLUCOSE; Start 11/16/16 at 11: 30 Dextrose (D50w Syringe) 25 ml Q15M PRN IV DECREASED GLUCOSE; Start 11/16/16 at 11:30 Dextrose (D50w Syringe) 50 ml Q15M PRN IV DECREASED GLUCOSE; Start 11/16/16 at 11:30 Glucagon (Glucagen) 1 mg Q15M PRN IM DECREASED GLUCOSE; Start 11/16/16 at 11:30 Glucose (Glutose) 15 gm Q15M PRN BUCCAL DECREASED GLUCOSE; Start 11/16/16 at 11 :30 Collagenase (Santyl) 1 applic DAILY TOP Last administered on 11/30/16 08:44; Admin Dose 1 APPLIC; Start 11/17/16 at 09:00 Diphenhydramine HCl (Benadryl) 50 mg Q6H PRN IV ALLERGIC REACTION Last administered on 11/17/16 22:51; Admin Dose 50 MG; Start 11/17/16 at 16:30 Magnesium Hydroxide (Milk Of Mag) 30 ml DAILY PRN PO CONSTIPATION Last administered on 11/26/16 08:55; Admin Dose 30 ML; Start 11/18/16 at 00:30 Ibuprofen (Motrin) 600 mg Q6H PRN PO PAIN OR TEMP ABOVE 38C Last administered on 11/24/16 22:26; Admin Dose 600 MG; Start 11/20/16 at 13:00 Linezolid (Zyvox) 600 mg BID PO Last administered on 11/30/16 08:42; Admin Dose 600 MG; Start 11/20/16 at 21:00 Polyethylene Glycol (Miralax) 17 gm DAILY NGT Last administered on 11/30/16 08: 41; Admin Dose 17 GM; Start 11/23/16 at 09:00 Heparin Sodium (Porcine) (Heparin (5000 Units/0.5 ml)) 5,000 unit BID SC Last administered on 11/30/16 08:49; Admin Dose 5,000 UNIT; Start 11/22/16 at 21:00 Metronidazole (Flagyl) 500 mg Q8 PO Last administered on 11/30/16 05:58; Admin Dose 500 MG; Start 11/23/16 at 14:00 Fluconazole (Diflucan) 100 mg DAILY GTB Last administered on 11/30/16 08:42; Admin Dose 100 MG; Start 11/23/16 at 14:00 Diltiazem HCl (Cardizem) 30 mg Q8 PEG Last administered on 11/30/16 05:57; Admin Dose 30 MG; Start 11/24/16 at 14:00 Metoprolol Tartrate 5 mg 5 mg Q4H PRN IV HR>110 Hold SBP<100; Start 11/24/16 at 13:30 Cefepime HCl (Maxipime 1gm/50 ml (Pmx)) 50 ml @ 100 mls/hr Q24H IVPB Last administered on 11/29/16 13:35; Admin Dose 100 MLS/HR; Start 11/25/16 at 14:00 Loratadine (Claritin) 10 mg DAILY PO Last administered on 11/30/16 08:43; Admin Dose 10 MG; Start 11/25/16 at 13:00 Famotidine (Pepcid Iv) 20 mg DAILY IV Last administered on 11/30/16 08:41; Admin Dose 20 MG; Start 11/26/16 at 09:00 Lactulose (Enulose) 20 gm Q12H GTB Last administered on 11/30/16 05:57; Admin Dose 20 GM; Start 11/26/16 at 18:00 Insulin Aspart (Novolog Insulin Pen) NOVOLOG *MODERATE* ALGORITHM Q6 SC Last administered on 11/29/16 17:28; Admin Dose 2 UNIT; Start 11/27/16 at 00:00 Metoprolol Tartrate (Lopressor) 12.5 mg BID PO Last administered on 11/30/16 08 :43; Admin Dose 12.5 MG; Start 11/27/16 at 11:00 Insulin Glargine (Lantus) 40 unit DAILY@08 SC ; Start 12/01/16 at 08:00 ARYAN COLLADO Nov 30, 2016 12:24
[2016-11-30] MEDS: CEFEPIME 1GM/50 ML (PMX) 50 ML IVPB SCH (15:00)
--- NOTE | 2016-11-30 16:25 | CONS ---
Date/Time of Note Date/Time of Note DATE: 11/30/16 TIME: 16:10 Assessment/Plan Assessment/Plan Chief Complaint/Hosp Course SUBJECTIVE: No events overnight. No fevers. Th ANTIMICROBIALS: 1. Tobramycin inhalation. 2. Flagyl 3. Fluconazole. 4. Cefepime 5. Zyvox. MICROBIOLOGY: Urine culture grew Klebsiella ESBL and Pseudomonas aeruginosa, which were multidrug resistant, susceptible to cefepime, amikacin, only Pseudomonas aeruginosa was susceptible. INDWELLINGS: Trach, PEG, Joel, rectal tube, and PICC line placed on 2016. ALLERGIES: 1. LEVAQUIN. 2. ? CEPHALOSPORINS. 3. PENICILLIN. 4. VANCOMYCIN. OBJECTIVE: GENERAL: This is a chronically ill-appearing, middle-aged woman who is lying comfortably in bed. The patient is nonverbal, nonresponsive. HEENT: Head atraumatic, normocephalic. Sclerae anicteric. Buccal mucosa dry. NECK: Supple. Tracheostomy present. CHEST: Rise symmetrical. Breath sounds diminished. HEART: S1, S2. ABDOMEN: Distended, soft. G-tube site clear. Bowel sounds present. EXTREMITIES: Wasted with trace edema. SKIN: With multiple unstageable decubiti. ASSESSMENT: 1. Severe sepsis with ongoing fevers. 2. Polymicrobial urinary tract infection. 3. Multiple unstageable wounds, possibly infected. 4. Acute renal failure. 5. Chronic respiratory failure with sputum culture grew multidrug resistant pseudomonas and Morganella morganii. 6. Advanced multiple sclerosis with functional quadriplegia. 7. S/p fecal impaction. PLAN: Remains stable, continue local wound care, complete abx for 6 more days [facility] staff Problems: Consultation Date/Type/Reason Admit Date/Time Nov 15, 2016 at 22:42 Initial Consult Date 11/18/16 Type of Consultation: id Exam/Review of Systems Vital Signs Vitals Vital Signs Date Time Temp Pulse Resp B/P Pulse Ox O2 Delivery O2 Flow Rate FiO2 11/30/16 15:15 98 20 100 30 11/30/16 15:06 98.5 120/65 Intake and Output 11/29/16 11/29/16 11/30/16 15:00 23:00 07:00 Intake Total 770 ml 550 ml Output Total 600 ml 650 ml Balance 170 ml -100 ml Results Result Diagram: 11/30/16 0555 11/30/16 0555 Results 24 hrs Laboratory Tests Test 11/29/16 17:27 11/30/16 00:13 11/30/16 05:50 11/30/16 05:55 Bedside Glucose 164 172 172 Anion Gap 23 H Basophils # 0.0 Basophils % 0.5 Blood Urea Nitrogen 22 H Calcium Level 10.1 Carbon Dioxide Level 22 Chloride Level 107 Creatinine 0.85 Eosinophils # 0.3 Eosinophils % 3.7 Glucose Level 162 Hematocrit 30.2 L Hemoglobin 9.6 L Lymphocytes # 1.7 Lymphocytes % 19.3 Mean Corpuscular Hemoglobin 28.2 L Mean Corpuscular Hemoglobin Concent 31.8 L Mean Corpuscular Volume 88.6 Mean Platelet Volume 10.7 H Monocytes # 0.6 Monocytes % 6.7 Neutrophils # 5.8 Neutrophils % 65.9 Nucleated Red Blood Cells # 0.0 Nucleated Red Blood Cells % 0.2 H Platelet Count 395 Potassium Level 4.3 Red Blood Count 3.41 L Red Cell Distribution Width 17.0 H Sodium Level 148 H White Blood Count 8.8 Test 11/30/16 08:08 11/30/16 12:32 Bedside Glucose 160 197 Medications Medications Current Medications Ondansetron HCl (Zofran Inj) 4 mg Q6H PRN IV NAUSEA AND/OR VOMITING; Start at 01:30 Acetaminophen (Tylenol Liquid) 650 mg Q6H PRN GTB ELEVATED TEMPERATURE Last administered on 11/30/16 08:41; Admin Dose 650 MG; Start 11/16/16 at 01:30 Baclofen (Lioresal) 20 mg TID GTB Last administered on 11/30/16 12:29; Admin Dose 20 MG; Start 11/16/16 at 09:00 Magnesium Oxide (Mag-Ox 400) 400 mg BID GTB Last administered on 11/30/16 08:42 ; Admin Dose 400 MG; Start 11/16/16 at 09:00 Lansoprazole (Prevacid) 30 mg DAILY@06 GTB Last administered on 11/23/16 05:33 ; Admin Dose 30 MG; Start 11/16/16 at 06:00; Status Future Hold Simethicone (Mylicon) 160 mg DAILY PRN GTB DISTENSION/GAS/BLOATING Last administered on 11/30/16 08:43; Admin Dose 160 MG; Start 11/16/16 at 01:30 Zinc Sulfate (Zinc Sulfate) 220 mg DAILY GTB Last administered on 11/30/16 08: 42; Admin Dose 220 MG; Start 11/16/16 at 09:00 Diphenhydramine HCl (Benadryl Liquid Cup) 25 mg Q6H PRN GTB ITCHING; Start at 02:00 Clonidine (Catapres) 0.1 mg Q6H PRN GTB SBP >160; Start 11/16/16 at 02:06 Miscellaneous Information 1 ea NOTE XX ; Start 11/16/16 at 11:30 Glucose (Glutose) 15 gm Q15M PRN PO DECREASED GLUCOSE; Start 11/16/16 at 11:30 Glucose (Glutose) 22.5 gm Q15M PRN PO DECREASED GLUCOSE; Start 11/16/16 at 11: 30 Dextrose (D50w Syringe) 25 ml Q15M PRN IV DECREASED GLUCOSE; Start 11/16/16 at 11:30 Dextrose (D50w Syringe) 50 ml Q15M PRN IV DECREASED GLUCOSE; Start 11/16/16 at 11:30 Glucagon (Glucagen) 1 mg Q15M PRN IM DECREASED GLUCOSE; Start 11/16/16 at 11:30 Glucose (Glutose) 15 gm Q15M PRN BUCCAL DECREASED GLUCOSE; Start 11/16/16 at 11 :30 Collagenase (Santyl) 1 applic DAILY TOP Last administered on 11/30/16 08:44; Admin Dose 1 APPLIC; Start 11/17/16 at 09:00 Diphenhydramine HCl (Benadryl) 50 mg Q6H PRN IV ALLERGIC REACTION Last administered on 11/17/16 22:51; Admin Dose 50 MG; Start 11/17/16 at 16:30 Magnesium Hydroxide (Milk Of Mag) 30 ml DAILY PRN PO CONSTIPATION Last administered on 11/26/16 08:55; Admin Dose 30 ML; Start 11/18/16 at 00:30 Ibuprofen (Motrin) 600 mg Q6H PRN PO PAIN OR TEMP ABOVE 38C Last administered on 11/24/16 22:26; Admin Dose 600 MG; Start 11/20/16 at 13:00 Linezolid (Zyvox) 600 mg BID PO Last administered on 11/30/16 08:42; Admin Dose 600 MG; Start 11/20/16 at 21:00 Polyethylene Glycol (Miralax) 17 gm DAILY NGT Last administered on 11/30/16 08: 41; Admin Dose 17 GM; Start 11/23/16 at 09:00 Heparin Sodium (Porcine) (Heparin (5000 Units/0.5 ml)) 5,000 unit BID SC Last administered on 11/30/16 08:49; Admin Dose 5,000 UNIT; Start 11/22/16 at 21:00 Metronidazole (Flagyl) 500 mg Q8 PO Last administered on 11/30/16 12:29; Admin Dose 500 MG; Start 11/23/16 at 14:00 Fluconazole (Diflucan) 100 mg DAILY GTB Last administered on 11/30/16 08:42; Admin Dose 100 MG; Start 11/23/16 at 14:00 Diltiazem HCl (Cardizem) 30 mg Q8 PEG Last administered on 11/30/16 12:30; Admin Dose 30 MG; Start 11/24/16 at 14:00 Metoprolol Tartrate 5 mg 5 mg Q4H PRN IV HR>110 Hold SBP<100; Start 11/24/16 at 13:30 Cefepime HCl (Maxipime 1gm/50 ml (Pmx)) 50 ml @ 100 mls/hr Q24H IVPB Last administered on 11/30/16 15:00; Admin Dose 100 MLS/HR; Start 11/25/16 at 14:00 Loratadine (Claritin) 10 mg DAILY PO Last administered on 11/30/16 08:43; Admin Dose 10 MG; Start 11/25/16 at 13:00 Famotidine (Pepcid Iv) 20 mg DAILY IV Last administered on 11/30/16 08:41; Admin Dose 20 MG; Start 11/26/16 at 09:00 Lactulose (Enulose) 20 gm Q12H GTB Last administered on 11/30/16 05:57; Admin Dose 20 GM; Start 11/26/16 at 18:00 Insulin Aspart (Novolog Insulin Pen) NOVOLOG *MODERATE* ALGORITHM Q6 SC Last administered on 11/30/16 12:37; Admin Dose 4 UNIT; Start 11/27/16 at 00:00 Metoprolol Tartrate (Lopressor) 12.5 mg BID PO Last administered on 11/30/16t 08 :43; Admin Dose 12.5 MG; Start 11/27/16 at 11:00 Insulin Glargine (Lantus) 40 unit DAILY@08 SC ; Start 12/01/16 at 08:00 FLEX DENNISON NP Nov 30, 2016 16:20 FLEX DENNISON NP Nov 30, 2016 16:20
[2016-12-01] MEDS ORDERED: INSULIN GLARGINE [LANtus] 3 ML PEN SC SCH (08:00)
== END 2016-11-30 17:15 | DRG 870 ==
LOC: E/R 16:50 → TEL 22:38
PROVIDERS: ADMIT Internal Medicine; ATTEND Internal Medicine
PROC: 5A1955Z Respiratory Ventilation, Greater than 96 Consecutive Hours (ICD-10-PCS; principal; 2016-11-15)
PROC: 30233N1 Transfusion of Nonautologous Red Blood Cells into Peripheral Vein, Percutaneous Approach (ICD-10-PCS; 2016-11-16)
PROC: 02HV33Z Insertion of Infusion Device into Superior Vena Cava, Percutaneous Approach (ICD-10-PCS; 2016-11-20)
PROC: B548ZZA Ultrasonography of Superior Vena Cava, Guidance (ICD-10-PCS; 2016-11-20)
DX: A41.9 Sepsis, unspecified organism (principal); J96.21 Acute and chronic respiratory failure with hypoxia; J69.0 Pneumonitis due to inhalation of food and vomit; G93.40 Encephalopathy, unspecified; R40.3 Persistent vegetative state; K85.90 Acute pancreatitis without necrosis or infection, unspecified; L89.154 Pressure ulcer of sacral region, stage 4; N17.9 Acute kidney failure, unspecified; R53.2 Functional quadriplegia; Z99.11 Dependence on respirator [ventilator] status; E87.0 Hyperosmolality and hypernatremia; K56.7 Ileus, unspecified; E87.1 Hypo-osmolality and hyponatremia; N39.0 Urinary tract infection, site not specified; G35 Multiple sclerosis; E78.5 Hyperlipidemia, unspecified; E11.22 Type 2 diabetes mellitus with diabetic chronic kidney disease; Z93.0 Tracheostomy status; R13.10 Dysphagia, unspecified; E86.0 Dehydration; Z93.1 Gastrostomy status; Z78.1 Physical restraint status; D63.8 Anemia in other chronic diseases classified elsewhere; I12.9 Hypertensive chronic kidney disease with stage 1 through stage 4 chronic kidney disease, or unspecified chronic kidney disease; N18.9 Chronic kidney disease, unspecified; R65.20 Severe sepsis without septic shock; K59.00 Constipation, unspecified; K52.9 Noninfective gastroenteritis and colitis, unspecified; N20.0 Calculus of kidney; E83.39 Other disorders of phosphorus metabolism; B96.5 Pseudomonas (aeruginosa) (mallei) (pseudomallei) as the cause of diseases classified elsewhere; B96.1 Klebsiella pneumoniae [K. pneumoniae] as the cause of diseases classified elsewhere; Z16.35 Resistance to multiple antimicrobial drugs; E02 Subclinical iodine-deficiency hypothyroidism; Z66 Do not resuscitate; Z79.4 Long term (current) use of insulin; Z74.01 Bed confinement status; Z86.73 Personal history of transient ischemic attack (TIA), and cerebral infarction without residual deficits
CPT/HCPCS: 36430; 36569; 36600; 71010; 74000; 74176; 76775; 76937; 80048; 80053; 80069; 81001; 81003; 82270; 82306; 82550; 82553; 82565; 82728; 82803; 82962; 83036; 83540; 83605; 83690; 83735; 84100; 84439; 84443; 84484; 84520; 85025; 85610; 85730; 86078; 86850; 86870; 86900; 86901; 86920; 87040; 87070; 87081; 87086; 89220; 93005; 93306; 94002; 94003; 94640; J0278; J0692; J0743; J1200; J1815; J2543; J2765; J2930; J3480; J7030; J7050; J7070; P9016

== ENCOUNTER 2016-12-15 09:11 | Inpatient (IN) | payer OTHER ==
[~2016-12-15] VITALS: Ht 167.6 cm; Wt 57.9 kg
[~2016-12-15 09:11] MED LIST changes: -ASC500 GTB; -DOCU250C58 PO; -GLUC1KIT IJ; -LORA10TA3 GTB; -NOVO3I SC; -OMEG-135 GTB; +SIME80TA GTB; -SIME80TA53 GTB
[2016-12-15] MEDS ORDERED: IMIPENEM-CILAST 500MG IV (PMX) 100 ML IVPB STA (09:17)
[2016-12-15] MEDS ORDERED: SODIUM CHLORIDE 0.9% 1L BAG IV* STA (09:17)
[2016-12-15 10:10] LABS: ADD SCAN DIFF NO
[2016-12-15 10:12] LABS: BASOPHILS % 0.4 % (0.0-2.0); EOSINOPHILS # 0.2 10^3/ul (0.0-0.5); EOSINOPHILS % 4.6 % (0.0-7.0); HEMATOCRIT 25.8 % (37.0-47.0); HEMOGLOBIN 8.2 g/dl (12.0-16.0); LYMPHOCYTES # 1.2 10^3/ul (0.8-2.9); LYMPHOCYTES % 24.4 % (15.0-51.0); MEAN CORPUSCULAR HEMOGLOBIN 28.8 pg (29.0-33.0); MEAN CORPUSCULAR HGB CONC 31.8 g/dl (32.0-37.0); MEAN CORPUSCULAR VOLUME 90.5 fl (82.0-101.0); MEAN PLATELET VOLUME 10.7 fl (7.4-10.4); MONOCYTE # 0.5 10^3/ul (0.3-0.9); MONOCYTES % 10.4 % (0.0-11.0); NEUTROPHIL # 2.8 10^3/ul (1.6-7.5); NEUTROPHILS % 58.9 % (39.0-77.0); PLATELET COUNT 210 10^3/UL (140-415); RED BLOOD COUNT 2.85 10^6/ul (4.20-5.40); RED CELL DISTRIBUTION WIDTH 16.5 % (11.5-14.5); WHITE BLOOD COUNT 4.8 10^3/ul (4.8-10.8)
[2016-12-15 10:23] LABS: ALBUMIN 3.6 g/dl (3.3-4.9); CHLORIDE 98 mmol/L (97-110); POTASSIUM 4.1 mmol/L (3.5-5.1); SODIUM 141 mmol/L (135-144)
[2016-12-15 10:25] LABS: ANION GAP 23 (8-16); BILIRUBIN,INDIRECT 0.2 mg/dl (0-1.1); BILIRUBIN,TOTAL 0.2 mg/dl (0.2-1.3); CARBON DIOXIDE 24 mmol/L (21-31); CREATININE 1.04 mg/dl (0.44-1.00)
[2016-12-15 10:26] LABS: ALANINE AMINOTRANSFERASE 17 IU/L (13-69); ALBUMIN/GLOBULIN RATIO 0.75; ALKALINE PHOSPHATASE 167 IU/L (42-121); ASPARTATE AMINO TRANSFERASE 24 IU/L (15-46); BLOOD UREA NITROGEN 38 mg/dl (7-20); CALCIUM 11.1 mg/dl (8.4-10.2); GLUCOSE 323 mg/dl (70-220); TOTAL PROTEIN 8.4 g/dl (6.1-8.1)
[2016-12-15 10:33] LABS: PROTIME 13.2 Sec (12.2-14.2)
[2016-12-15 10:34] LABS: PARTIAL THROMBOPLASTIN TIME 29.9 Sec (25.0-35.0)
[2016-12-15 10:38] LABS: TROPONIN-I < 0.012 ng/ml (0.00-0.12)
[2016-12-15 10:40] LABS: AADO2 Arterial 80.5 mmHg (7.0-24.0); Allen Test ACCEPTAB; Arterial Base Excess 0.5 mmol/L (-3.0-3); Arterial COHb 0.3 % (0.0-3.0); Arterial Fraction of Oxyhgb 95.6 % (93.0-99.0); Arterial HCO3 25.2 mmol/L (22.0-26.0); Arterial MetHb 0.5 % (0.0-1.5); Arterial Total Hemglobin 9.6 g/dl (12.0-18.0); MODE VENT - AC
--- NOTE | 2016-12-15 11:08 | RADRPT ---
PROCEDURE: Chest Radiograph. CLINICAL INDICATION: Respiratory distress TECHNIQUE: Single frontal chest radiograph. COMPARISON: Chest radiograph 11/24/2016 FINDINGS: A tracheostomy tube and right upper extremity PICC remain in stable and radiographically appropriate position. Cardiomediastinal silhouette is within normal limits. There has been interval resolutio n of left basilar consolidation/atelectasis. The lungs are clear. No infiltrate or effusion is seen . The bones are intact. IMPRESSION: No evidence of acute cardiopulmonary disease. RPTAT: JJ .Arden Negro MD, MD Date Time Electronically viewed and signed by .Arden Negro MD, MD on 12/15/2016 11:08 .A/
[2016-12-15] MEDS ORDERED: AZTREONAM 1 GM/NS (PMX) 50 ML IVPB STA (12:20)
[2016-12-15] MEDS ORDERED: SOD CHLORIDE 0.9% 1,000 ML IV STA (12:20)
[2016-12-15] MEDS ORDERED: ONDANSETRON 4 MG INJ IV PRN ×2 (12:30→18:30)
[2016-12-15] MEDS ORDERED: ACETAMINOPHEN 325 MG TAB PO PRN (12:30)
--- NOTE | 2016-12-15 12:38 | ERA ---
ER Documentation Chief Complaint Date/Time DATE: 12/15/16 TIME: 12:26 Chief Complaint BROUGHT IN VIA PRIVATE AMBULANCE DUE TO FEVER AND TACHYCARDIA ON VENT HPI 56-year-old female with a history of diabetes, hypertension, encephalopathy trach and vent dependent [facility] and [facility]cardia that started today. Her primary care physician is Dr. Jones. I do not have any further history on the patient other than the fact that she has multiple decubitus ulcers, however I do not know of any new symptoms other than the fever and the tachycardia. ROS Unable to obtain review of systems as the patient is nonverbal Medications Home Meds Reported Medications Simethicone* (Anti-Gas/80*) 80 Mg Tab.chew, 160 MG GTB DAILY Y for DISTENSION/ GAS/BLOATING, TAB.CHEW 11/15/16 Metoprolol Tartrate* (Lopressor*) 25 Mg Tab, 25 MG GTB BID, #60 TAB HOLD IF SBP<110; HR<60 10/14/16 Baclofen* (Baclofen*) 20 Mg Tablet, 20 MG GTB TID, TAB 10/14/16 Magnesium Oxide* (Magnesium Oxide*) 400 Mg Tablet, 400 MG GTB BID, TAB 10/14/16 Gemfibrozil* (Gemfibrozil*) 600 Mg Tablet, 600 MG GTB BID, TAB 10/14/16 Clonidine Hcl* (Clonidine Hcl*) 0.1 Mg Tab, 0.1 MG GTB Q8, TAB IF SBP>160 10/14/16 Atorvastatin* (Atorvastatin*) 40 Mg Tablet, 40 MG GTB QHS, #30 TAB 10/14/16 Zinc Sulfate* (Zinc Sulfate*) 220 Mg Tablet, 220 MG GTB DAILY, TAB 10/14/16 Insulin Detemir (Levemir Flextouch) 100 Unit/1 Ml Insuln.pen, 40 UNIT SQ QAM 10/14/16 Acetaminophen* (Acetaminophen*) 650 Mg Tablet, 650 MG GTB Q4 Y for ELEVATED TEMPERATURE, #30 TAB OR FEVER 10/14/16 Diphenhydramine Hcl* (Diphenhydramine Hcl*) 25 Mg Capsule, 25 MG GTB Q4 Y for ITCHING, CAP 10/14/16 Pantoprazole* (Pantoprazole*) 40 Mg Tablet., 40 MG GTB AC BREAKFAST, TAB 10/14/16 Allergies Allergies: Coded Allergies: Penicillins (Verified Allergy, Severe, 12/15/16) Cephalosporins (Verified Allergy, Unknown, FLUSHING, TACHYCARDIA, 12/15/16) levofloxacin (Verified Allergy, Unknown, 12/15/16) vancomycin (Verified Allergy, Unknown, 12/15/16) PMhx/Soc History of Surgery: Yes (trach; gtube; ) Hx Neurological Disorder: No Hx Respiratory Disorders: Yes ( Respiratory failure , Trach to vent) Hx Cardiac Disorders: Yes (Dyslipidimia) Hx Psychiatric Problems: Yes Hx Miscellaneous Medical Probl: Yes (Diabetes) Hx Alcohol Use: No Hx Substance Use: No Hx Tobacco Use: No Smoking Status: Unknown if ever smoked FmHx Unable to obtain Physical Exam Vitals Vital Signs Date Time Temp Pulse Resp B/P Pulse Ox O2 Delivery O2 Flow Rate FiO2 12/15/16 09:51 92 16 100 30 12/15/16 09:16 101.0 117 16 142/58 99 Physical Exam Const: Chronically ill-appearing, laying in bed with eyes closed, opens spontaneously and with tactile stimuli Head: Atraumatic Eyes: Normal Conjunctiva ENT: Normal External Ears, Nose and Mouth. Dry oral mucosa Neck: Trach in place, on vent Resp: Rhonchi bilaterally, likely transmitted upper respiratory sounds Cardio: Regular rate and rhythm, no murmurs Abd: Soft, mildly distended, no grimacing with palpation. Normal bowel sounds Skin: Multiple sacral and bilateral hip decubitus ulcers with dressings in place Ext: No cyanosis, or edema. Atrophy in all 4 extremities with contractures Neur: Sleeping, arousable with tactile stimuli, nonverbal, does not withdraw extremities to pain Result Diagram: 12/15/16 0950 12/15/16 0950 Results 24 hrs Laboratory Tests Test 12/15/16 09:17 12/15/16 09:50 12/15/16 11:44 Arterial Blood HCO3 25.2mmol/L Arterial Blood Base Excess 0.5mmol/L Arterial Blood Oxygen Saturation 96.4mmHG [place] Test ACCEPTAB Arterial Blood Gas Puncture Site Right Radial Arterial Blood Carboxyhemoglobin 0.3% Arterial Blood Date Drawn 12/15/2016 10:31:57 AM Arterial Blood Methemoglobin 0.5% Arterial Blood pCO2 (Temp correct) 41.1mmhg Arterial Blood pH (Temp corrected) 7.406 Arterial Blood pO2 (Temp corrected) 85.1mmHG Blood Gas A-a O2 Differential 80.5mmHg Blood Gas Actual Respiration Rate 16 Blood Gas Low PEEP Setting 5.0cmH2O Blood Gas Modality VENT - AC Blood Gas Notified Time 12/15/2016 10:40:41 AM Blood Gas Notified Whom JLD Blood Gas Respiration Rate 16.0 Blood Gas Specimen Source Blood arterial Blood Gas Temperature 37.0C Blood Gas Tidal Volume 450.0mL FiO2 30.0% Oxyhemoglobin Percent 95.6% Total Hemoglobin 9.6g/dl Activated Partial Thromboplast Time 29.9Sec Alanine Aminotransferase (ALT/SGPT) 17IU/L Albumin 3.6g/dl Albumin/Globulin Ratio 0.75 Alkaline Phosphatase 167IU/L Anion Gap 23 Aspartate Amino Transf (AST/SGOT) 24IU/L Basophils # 0.010^3/ul Basophils % 0.4% Blood Urea Nitrogen 38mg/dl Calcium Level 11.1mg/dl Carbon Dioxide Level 24mmol/L Chloride Level 98mmol/L Creatinine 1.04mg/dl Direct Bilirubin 0.00mg/dl Eosinophils # 0.210^3/ul Eosinophils % 4.6% Globulin 4.80g/dl Glucose Level 323mg/dl Hematocrit 25.8% Hemoglobin 8.2g/dl INR International Normalized Ratio 1.00 Indirect Bilirubin 0.2mg/dl Lactic Acid Level 3.4mmol/L 3.8mmol/L Lymphocytes # 1.210^3/ul Lymphocytes % 24.4% Mean Corpuscular Hemoglobin 28.8pg Mean Corpuscular Hemoglobin Concent 31.8g/dl Mean Corpuscular Volume 90.5fl Mean Platelet Volume 10.7fl Monocytes # 0.510^3/ul Monocytes % 10.4% Neutrophils # 2.810^3/ul Neutrophils % 58.9% Nucleated Red Blood Cells # 0.010^3/ul Nucleated Red Blood Cells % 0.0/100WBC Platelet Count 44855^3/UL Potassium Level 4.1mmol/L Prothrombin Time 13.2Sec Prothrombin Time Ratio 1.0 Red Blood Count 2.8510^6/ul Red Cell Distribution Width 16.5% Sodium Level 141mmol/L Total Bilirubin 0.2mg/dl Total Protein 8.4g/dl Troponin I < 0.012ng/ml White Blood Count 4.810^3/ul Current Medications Medications (Trade) Dose Ordered Sig/Charlie Route PRN Reason Start Time Stop Time Status Last Admin Dose Admin Sodium Chloride 2170 ml 2,170 ml BOLUS OVER 2 HOURS STAT IV* 12/15/16 09:17 12/15/16 09:23 DC Imipenem/ Cilastatin Sodium 100 ml @ 100 mls/hr ONCE STAT IVPB 12/15/16 09:17 12/15/16 10:16 DC Aztreonam 50 ml @ 100 mls/hr ONCE STAT IVPB 12/15/16 12:20 12/15/16 12:49 Sodium Chloride (NS) 1,000 ml @ 1,000 mls/hr Q1H STAT IV 12/15/16 12:20 12/15/16 13:19 Ondansetron HCl (Zofran Inj) 4 mg ER BRIDGE PRN IV NAUSEA AND/OR VOMITING 12/15/16 12:30 12/16/16 12:29 Acetaminophen (Tylenol Tab) 650 mg ER BRIDGE PRN PO MILD PAIN/FEVER 12/15/16 12:30 12/16/16 12:29 Procedures/MDM EKG: Rate/Rhythm: Normal sinus rhythm at 91 bpm QRS, ST, T-waves: No changes consistent w/ acute ischemia Impression: No evidence of ischemia or arrhythmia Patient is presenting with signs of sepsis without a clear source. Her chest x- ray did not show an acute pneumonia per radiology. Urinalysis was not obtained after her Joel was changed as she had no subsequent urine output. Her labs show evidence of anemia and acute renal failure. Broad-spectrum antibiotics were started. Given the patient's multiple antibiotic allergies, imipenem and aztreonam were given. Her lactate was elevated and increased after 30 cc/kg of IV fluids. Another liter of IV fluids were started. Patient's infectious symptoms have not stabilized and the patient is at risk of rapid decompensation. The patient will be admitted for careful hydration, antibiotic therapy, and infectious source control. Severe Sepsis Assessment: Infectious Source: Unknown End organ damage indicated by: [Lactate > 2.0 mmol/L Severe Sepsis Managment: Blood Cultures X 2 before broad spectrum antibiotics initiated within 3 hours of recognition. 30 ml/kg NS bolus Completed Initial Lactate: 3.4 Repeat Lactate 3.8 Critical Care: Time: 35 minutes Treatments/Evaluations: Emergent fluid management, while maintaining close respiratory support. Immediate broad spectrum antibiotic therapy. Simultaneous assessment for possible sources in order to direct therapy. Consideration for invasive and chemical support to prevent respiratory or cardiac collapse. Septic Shock Assessment (1 hour post 30 ml/kg fluid bolus): Hypotension (SBP < 90 or 40 mmHg drop, MAP < 65): No Lactic acid > 4.0 No Accepting Care Team: Current data and ongoing care discussed. Time: Time of admission Primary Provider: Jose Consulting: none Outstanding Data: none Departure Diagnosis: Primary Impression: Severe sepsis Additional Impression: Acute renal failure Qualified Code: N17.9 - Acute renal failure, unspecified acute renal failure type Condition: Serious COOKIE HASSAN MD Dec 15, 2016 12:37
[2016-12-15 12:39] VITALS: TEMP 98.4
[2016-12-15 14:05] LABS: ADD UMIC YES; URINE BILIRUBIN (Dip) NEGATIVE (NEGATIVE); URINE BLOOD (Dip) 3+ (NEGATIVE); URINE COLOR BROWN (YELLOW); URINE GLUCOSE (Dip) NEGATIVE (NEGATIVE); URINE KETONES (Dip) NEGATIVE (NEGATIVE); URINE LEUKOCYTE ESTERASE (Dip) 3+ (NEGATIVE); URINE NITRITE (Dip) NEGATIVE (NEGATIVE); URINE TOTAL PROTEIN (Dip) 2+ (NEGATIVE); URINE UROBILINOGEN (Dip) 0.2 E.U./dL (0.1-1.0)
[2016-12-15 14:18] LABS: BACTERIA,URINE MANY; URINE RBCS 25-50 /HPF (0)
--- NOTE | 2016-12-15 15:51 | RADRPT ---
PROCEDURE: CT Abdomen and Pelvis without contrast. CLINICAL INDICATION: Abdominal and pelvic pain. Sepsis. TECHNIQUE: CT scan of the abdomen and pelvis without contrast was performed. Coronal and sagittal reformatted images were obtained from the axial source images. Images were reviewed on a high-resolu tion PACS workstation. Total exam DLP is 919.09 mGy-cm. CTDIvol is 15.88 mGy. One or more of the f ollowing dose reduction techniques were used: Automated exposure control, adjustment of the mA and/o r kV according to patient size, use of iterative reconstruction technique. COMPARISON: CT scan of the abdomen and pelvis dated 11/17/2016 which demonstrated bibasilar atelec tasis, hepatomegaly, bilateral staghorn renal calculi, bilateral renal cysts, previous hysterectomy, fecal impaction, and chronic compression fractures of L1 and L3 vertebrae. FINDINGS: Previously noted right basilar atelectasis is no longer present. There is mild left basilar atelect asis, improved. The lung bases are otherwise normal. There is no pleural effusion or pericardial e ffusion. The heart size is normal and there is no pericardial effusion. The liver is normal in size and attenuation. There is no focal hepatic lesion. The gallbladder and bile ducts are normal. The spleen is normal in size. There is no focal splenic lesion. Both adrenals are normal with no enlargement or mass. There is a gastrostomy tube in satisfactory position in the stomach. The pancreas is unremarkable with no mass or evidence of pancreatitis. As seen previously, there are bilateral large renal calculi with a large staghorn calculus on the ri ght measuring up to 4.6 cm and multiple large calculi on the left predominately in the renal pelvis and lower pole calyces measuring up to 1.5 cm. There are benign bilateral renal cysts. The abdominal aorta is not dilated. There is calcification in the aorta consistent with atheroscler osis. There is no retroperitoneal lymphadenopathy or mass. There is no pelvic lymphadenopathy or mass. There is a Joel catheter in the urinary bladder. The ureters are unremarkable. The periappendiceal region is unremarkable with no evidence of appendicitis. There is fecal impaction in the rectosigmoid which has improved compared with 11/17/2016. The bowel and mesentery are otherwise normal. There is no free fluid or free gas. There are degenerative changes of the spine. There is no acute fracture or lytic lesion. There are old compression fractures of L1 and L3, unchanged. IMPRESSION: 1. Improved left basilar atelectasis. Previously noted right basilar atelectasis is no longer pres ent. 2. Gastrostomy tube in satisfactory position. 3. Unchanged bilateral large renal calculi with large staghorn calculus on the right. 4. Benign bilateral renal cysts. 5. Atherosclerosis. 6. Joel catheter in the bladder. 7. Improved fecal impaction in the rectosigmoid. 8. Degenerative changes of the spine. 9. Old compression fractures of L1 and L3, unchanged. RPTAT: QQ .Bryant Naik MD, MD Date Time Electronically viewed and signed by .Bryant Naik MD, MD on 12/15/2016 15:51 .R/
[2016-12-15] MEDS ORDERED: NACL 0.9% 3 ML SYG IV SCH (18:30)
[2016-12-15] MEDS ORDERED: DIPHENHYDRAMINE 2.5 MG/ML 5ML CUP GTB PRN (18:30)
[2016-12-15] MEDS ORDERED: ACETAMINOPHEN 650MG/20.3ML CUP GTB PRN (18:30)
[2016-12-15] MEDS ORDERED: morphine 2 MG INJ IV PRN (18:30)
--- NOTE | 2016-12-15 19:09 | HP ---
DATE OF ADMISSION: 12/15/2016 CHIEF COMPLAINT: Fever, tachycardia. HISTORY OF PRESENT ILLNESS: The patient is a 56-year-old female with history of CVA or chronic ence phalopathy, vegetative state, status post PEG and trach. The patient has quadriplegia with history of fevers and ulcers with severe sepsis and nephrolithiasis. [facility] with [facility] and [facility]. The patient was recently discharged several weeks ago after a hospital ization for sepsis secondary to multidrug resistant Pseudomonas and consented for some sensation of sepsis. Patient is unable to provide any history and history is obtained from medical records. PAST MEDICAL HISTORY: As per HPI. HOME MEDICATIONS: See medication reconciliation. ALLERGIES: CEPHALOSPORINS, PENICILLINS AND VANCOMYCIN. FAMILY HISTORY: Noncontributory. SOCIAL HISTORY: Once again there are no reports of alcohol, tobacco or drugs, visit to SNF. REVIEW OF SYSTEMS: A review of systems cannot be obtained secondary to poor mentation. PHYSICAL EXAMINATION: VITAL SIGNS: Temperature is 98.4, pulse 90, respiration is 16, BP is 103/75, saturation 100% on 3 l iters. GENERAL: Nonverbal, trached, PEG. HEENT: Normocephalic. LUNGS: Clear to auscultation. CARDIOVASCULAR: Regular rate and rhythm. ABDOMEN: PEG noted, nondistended, soft. EXTREMITIES: No clubbing, cyanosis, or edema. LABORATORIES: White count 12.8, hemoglobin is 8.2, platelets 210. Chemistry: Sodium is 141, potas sium is 4.1, BUN is 38, creatinine is 1.04, glucose 223. Lactic acid 2.4. AST is 11.1. UA shows g reater than 200 WBCs. DIAGNOSTICS: Chest x-ray shows no evidence of active disease. Abdominal pelvis CT shows improved l eft basilar atelectasis. Gastrostomy in satisfactory position, unchanged bilateral large renal calc sander and large staghorn calculus on the right. Benign bilateral renal cysts, atherosclerosis, old co mpression fractures L1 and L3, unchanged. ASSESSMENT AND PLAN: 1. Sepsis secondary to urinary tract infection. The patient did have a T-max 101.0. Patient is hy potensive. UA is suggestive of urinary tract infection. The patient did have a recent hospitalizat ion for multidrug resistant to urinary tract infection. We will reconsult ID. We will restart on a ntibiotics. 2. History of chronic encephalopathy from cerebrovascular accident, status post trached PEG, histor y of stage IV sacral ulcer. 3. Diabetes. Continue home regimen. 4. Prophylaxis, heparin. Dictated By: LATA SULLIVAN MD BS/NTS Conf#: [id number] DID#: [id number]
[2016-12-15] MEDS ORDERED: GLUCOSE GEL 15 GRAM TUBE BUCCAL PRN (19:30)
[2016-12-15] MEDS ORDERED: GLUCOSE GEL 15 GRAM TUBE PO PRN ×2 (19:30)
[2016-12-15] MEDS ORDERED: DEXTROSE 50% 50 ML SYRINGE IV PRN ×2 (19:30)
[2016-12-15] MEDS ORDERED: GLUCAGON 1 MG INJ IM PRN (19:30)
[2016-12-15] MEDS ORDERED: CEFEPIME 2GM/50 ML (PMX) 50 ML IVPB SCH (21:00)
[2016-12-15] MEDS ORDERED: MAGNESIUM OXIDE 400 MG TAB GTB SCH (21:00)
[2016-12-15] MEDS: HEPARIN 5,000 UNIT/0.5 ML SYG SC SCH (22:37)
[2016-12-15] MEDS: ATORVASTATIN 40 MG TAB GTB SCH (22:40)
[2016-12-15] MEDS: BACLOFEN 10 MG TAB GTB SCH (22:40)
[2016-12-15] MEDS: GEMFIBROZIL 600 MG TAB GTB SCH (22:41)
[2016-12-15] MEDS: METOPROLOL 25 MG TAB GTB SCH (22:41)
[2016-12-15] MEDS: INSULIN ASPART [NOVOLOG] 3 ML PEN SC SCH (22:44)
[2016-12-16] VITALS (28 sets, daily range): BP systolic 81–115; BP diastolic 54–65; PULSE 72–117; RESP 14–20; Ht 167.6 cm; Wt 57.9 kg
[2016-12-16] MEDS: INSULIN ASPART [NOVOLOG] 3 ML PEN SC SCH ×6 (03:02→20:51)
[2016-12-16] MEDS: AZTREONAM 1 GM/NS (PMX) 50 ML IVPB SCH ×3 (03:06→20:54)
[2016-12-16 06:56] LABS: ADD SCAN DIFF NO
[2016-12-16 06:58] LABS: BASOPHILS % 0.5 % (0.0-2.0); EOSINOPHILS # 0.4 10^3/ul (0.0-0.5); EOSINOPHILS % 9.3 % (0.0-7.0); HEMATOCRIT 23.6 % (37.0-47.0); HEMOGLOBIN 7.3 g/dl (12.0-16.0); LYMPHOCYTES # 0.9 10^3/ul (0.8-2.9); LYMPHOCYTES % 20.2 % (15.0-51.0); MEAN CORPUSCULAR HEMOGLOBIN 28.3 pg (29.0-33.0); MEAN CORPUSCULAR HGB CONC 30.9 g/dl (32.0-37.0); MEAN CORPUSCULAR VOLUME 91.5 fl (82.0-101.0); MEAN PLATELET VOLUME 10.6 fl (7.4-10.4); MONOCYTE # 0.4 10^3/ul (0.3-0.9); MONOCYTES % 8.8 % (0.0-11.0); NEUTROPHIL # 2.5 10^3/ul (1.6-7.5); NEUTROPHILS % 59.8 % (39.0-77.0); NUCLEATED RED BLOOD CELLS% 0.5 /100WBC (0.0-0.0); PLATELET COUNT 206 10^3/UL (140-415); RED BLOOD COUNT 2.58 10^6/ul (4.20-5.40); RED CELL DISTRIBUTION WIDTH 16.4 % (11.5-14.5); WHITE BLOOD COUNT 4.2 10^3/ul (4.8-10.8)
[2016-12-16] MEDS: SOD CHLORIDE 0.9% 1,000 ML IV SCH ×2 (07:04→16:44)
[2016-12-16 07:16] LABS: POTASSIUM 3.8 mmol/L (3.5-5.1)
[2016-12-16 07:18] LABS: CREATININE 0.77 mg/dl (0.44-1.00)
[2016-12-16 07:19] LABS: CALCIUM 9.4 mg/dl (8.4-10.2); MAGNESIUM 1.8 mg/dl (1.7-2.5)
[2016-12-16] MEDS: METOPROLOL 25 MG TAB GTB SCH ×2 (09:06→20:38)
[2016-12-16] MEDS: GEMFIBROZIL 600 MG TAB GTB SCH ×2 (09:06→20:43)
[2016-12-16] MEDS: BACLOFEN 10 MG TAB GTB SCH ×3 (09:06→20:43)
[2016-12-16] MEDS: ZINC SULFATE 220 MG CAP GTB SCH (09:06)
[2016-12-16] MEDS: HEPARIN 5,000 UNIT/0.5 ML SYG SC SCH ×2 (09:09→20:51)
--- NOTE | 2016-12-16 09:57 | CONS ---
Date/Time of Note Date/Time of Note DATE: 12/16/16 TIME: 09:49 Assessment/Plan Assessment/Plan Additional Assessment/Plan Ventilator Settings: AC 16, Vt 450, FiO2 30 %, PEEP 5 CXR: clear A/R: admitted for UTI and sepsis. stable other co morbidities. Continue current treatment, Consultation Date/Type/Reason Admit Date/Time Dec 15, 2016 at 12:23 Date of Consultation: Dec 16, 2016 Type of Consultation: pulmonary Reason for Consultation ventilator management, patient admitted for UTI and sepsis. ANDREAFSKI: patient admitted for above, developed fever and hypotension in skilled nursing. PMH: chronic respiratory failure, ventilator dependent, tracheostomy G tube tracheostomy anoxic brain injury DM Medications: reviewed. Allergies: PCN SH: non contributory. FH: not available. Occupational History: on disability. ROS: unable to be obtained. GE: young woman, awake but unresponsive. No distress noted. Social History Smoking Status: Unknown if ever smoked Exam/Review of Systems Vital Signs Vitals Vital Signs Date Time Temp Pulse Resp B/P Pulse Ox O2 Delivery O2 Flow Rate FiO2 12/16/16 09:15 98 16 99 30 12/16/16 08:19 99.8 115/58 12/15/16 23:00 Mechanical Ventilator Intake and Output 12/15/16 12/15/16 12/16/16 15:00 23:00 07:00 Output Total 550 ml Balance -550 ml Exam HEENT: supple neck, tracheostomy in place. no masses. Mid size pupils. no thyromegaly. CHEST: CTA, S 1S2 audible. RRR. no murmurs. ABDOMEN: soft, G tube in place. Non distended. BS + EXTREMITIES: no edema. [employer]: awake but unresponsive. Constitutional: alert, oriented, well developed Results Result Diagram: 12/16/16 0625 12/16/16 0625 Results 24 hrs Laboratory Tests Test 12/15/16 09:50 12/15/16 11:44 12/15/16 13:40 12/15/16 22:42 Activated Partial Thromboplast Time 29.9 Alanine Aminotransferase (ALT/SGPT) 17 Albumin 3.6 Albumin/Globulin Ratio 0.75 Alkaline Phosphatase 167 H Anion Gap 23 H Aspartate Amino Transf (AST/SGOT) 24 Basophils # 0.0 Basophils % 0.4 Blood Urea Nitrogen 38 H Calcium Level 11.1 H Carbon Dioxide Level 24 Chloride Level 98 Creatinine 1.04 H Direct Bilirubin 0.00 Eosinophils # 0.2 Eosinophils % 4.6 Globulin 4.80 H Glucose Level 323 H Hematocrit 25.8 L Hemoglobin 8.2 L INR International Normalized Ratio 1.00 Indirect Bilirubin 0.2 Lactic Acid Level 3.4 H 3.8 H 2.8 H Lymphocytes # 1.2 Lymphocytes % 24.4 Mean Corpuscular Hemoglobin 28.8 L Mean Corpuscular Hemoglobin Concent 31.8 L Mean Corpuscular Volume 90.5 Mean Platelet Volume 10.7 H Monocytes # 0.5 Monocytes % 10.4 Neutrophils # 2.8 Neutrophils % 58.9 Nucleated Red Blood Cells # 0.0 Nucleated Red Blood Cells % 0.0 Platelet Count 210 # Potassium Level 4.1 Prothrombin Time 13.2 Prothrombin Time Ratio 1.0 Red Blood Count 2.85 L Red Cell Distribution Width 16.5 H Sodium Level 141 Total Bilirubin 0.2 Total Protein 8.4 H Troponin I < 0.012 Urine Bacteria MANY Urine Bilirubin NEGATIVE Urine Clarity CLOUDY Urine Color BROWN Urine Epithelial Cells RARE Urine Glucose NEGATIVE Urine Hemoglobin 3+ H Urine Ketones NEGATIVE Urine Leukocyte Esterase 3+ H Urine Microscopic RBC 25-50 Urine Microscopic WBC >200 Urine Nitrite NEGATIVE Urine Specific [place] 1.025 Urine Total Protein 2+ H Urine Urobilinogen 0.2 E.U./dL Urine pH 5.5 White Blood Count 4.8 # Bedside Glucose 264 H Test 12/16/16 02:49 12/16/16 06:17 12/16/16 06:25 12/16/16 07:37 Bedside Glucose 207 233 H 257 H Anion Gap 18 H Basophils # 0.0 Basophils % 0.5 Blood Urea Nitrogen 27 #H Calcium Level 9.4 Carbon Dioxide Level 23 Chloride Level 105 Creatinine 0.77 Eosinophils # 0.4 Eosinophils % 9.3 H Glucose Level 212 # Hematocrit 23.6 L Hemoglobin 7.3 L Lymphocytes # 0.9 Lymphocytes % 20.2 Magnesium Level 1.8 Mean Corpuscular Hemoglobin 28.3 L Mean Corpuscular Hemoglobin Concent 30.9 L Mean Corpuscular Volume 91.5 Mean Platelet Volume 10.6 H Monocytes # 0.4 Monocytes % 8.8 Neutrophils # 2.5 Neutrophils % 59.8 Nucleated Red Blood Cells # 0.0 Nucleated Red Blood Cells % 0.5 H Platelet Count 206 Potassium Level 3.8 Red Blood Count 2.58 L Red Cell Distribution Width 16.4 H Sodium Level 142 White Blood Count 4.2 L Medications Medications Current Medications Ondansetron HCl (Zofran Inj) 4 mg Q6H PRN IV NAUSEA AND/OR VOMITING; Start at 18:30 Morphine Sulfate (morphine) 2 mg Q4H PRN IV SEVERE PAIN LEVEL 7-10; Start 12/15 at 18:30 Heparin Sodium (Porcine) (Heparin (5000 Units/0.5 ml)) 5,000 unit Q12 SC Last administered on 12/16/16 09:09; Admin Dose 5,000 UNIT; Start 12/15/16 at 21:00 Acetaminophen (Tylenol Liquid) 650 mg Q4H PRN GTB ELEVATED TEMPERATURE; Start 12/15/16 at 18:30 Atorvastatin Calcium (Lipitor) 40 mg QHS GTB Last administered on 12/15/16 22: 40; Admin Dose 40 MG; Start 12/15/16 at 21:00 Baclofen (Lioresal) 20 mg TID GTB Last administered on 12/16/16 09:06; Admin Dose 20 MG; Start 12/15/16 at 21:00 Clonidine (Catapres) 0.1 mg Q8 GTB Last administered on 12/16/16 06:44; Admin Dose 0.1 MG; Start 12/15/16 at 22:00 Diphenhydramine HCl (Benadryl Liquid Cup) 25 mg Q4H PRN GTB ITCHING; Start at 18:30 Gemfibrozil (Lopid) 600 mg BID GTB Last administered on 12/16/16 09:06; Admin Dose 600 MG; Start 12/15/16 at 21:00 Insulin Detemir (Levemir) 40 unit QAM SC ; Start 12/16/16 at 09:00 Metoprolol Tartrate (Lopressor) 25 mg BID GTB Last administered on 12/16/16 09 :06; Admin Dose 25 MG; Start 12/15/16 at 21:00 Simethicone (Mylicon) 160 mg DAILY PRN GTB DISTENSION/GAS/BLOATING; Start 12/15 at 18:30 Zinc Sulfate (Zinc Sulfate) 220 mg DAILY GTB Last administered on 12/16/16 09: 06; Admin Dose 220 MG; Start 12/16/16 at 09:00 Insulin Aspart (Novolog Insulin Pen) NOVOLOG *MILD* ALGORI... Q4 SC Last administered on 12/16/16 09:08; Admin Dose 3 UNIT; Start 12/15/16 at 21:00 Miscellaneous Information 1 ea NOTE XX ; Start 12/15/16 at 19:30 Glucose (Glutose) 15 gm Q15M PRN PO DECREASED GLUCOSE; Start 12/15/16 at 19:30 Glucose (Glutose) 22.5 gm Q15M PRN PO DECREASED GLUCOSE; Start 12/15/16 at 19: 30 Dextrose (D50w Syringe) 25 ml Q15M PRN IV DECREASED GLUCOSE; Start 12/15/16 at 19:30 Dextrose (D50w Syringe) 50 ml Q15M PRN IV DECREASED GLUCOSE; Start 12/15/16 at 19:30 Glucagon (Glucagen) 1 mg Q15M PRN IM DECREASED GLUCOSE; Start 12/15/16 at 19:30 Glucose 15 gm 15 gm Q15M PRN BUCCAL DECREASED GLUCOSE; Start 12/15/16 at 19:30 Aztreonam 50 ml @ 100 mls/hr Q12 IVPB Last administered on 12/16/16 03:06; Admin Dose 100 MLS/HR; Start 12/16/16 at 01:00 Sodium Chloride (NS) 1,000 ml @ 100 mls/hr Q10H IV Last administered on 07:04; Admin Dose 100 MLS/HR; Start 12/16/16 at 07:00 ARYAN COLLADO Dec 16, 2016 09:56
[2016-12-16] MEDS: INSULIN DETEMIR [LEVEMIR] 3ML CART SC SCH (10:07)
[2016-12-16 13:22] LABS: HEMATOCRIT 22.1 % (37.0-47.0)
[2016-12-16 13:49] LABS: HEMOGLOBIN 6.7 g/dl (12.0-16.0)
--- NOTE | 2016-12-16 15:47 | CONS ---
Date/Time of Note Date/Time of Note DATE: 12/16/16 TIME: 15:44 Assessment/Plan Assessment/Plan Chief Complaint/Hosp Course SUBJECTIVE: Lying comfortably in bed, noncommunicative, afebrile Indwelling: Trach, Peg Joel RUE PICC 11/20/16 ANTIMICROBIALS: Azactam MICROBIOLOGY: Urine culture + GNR ALLERGIES: 1. LEVAQUIN. 2. ? CEPHALOSPORINS. 3. PENICILLIN. 4. VANCOMYCIN. OBJECTIVE: GENERAL: This is a chronically ill-appearing, middle-aged woman who is lying comfortably in bed. The patient is nonverbal, nonresponsive. HEENT: Head atraumatic, normocephalic. Sclerae anicteric. Buccal mucosa dry. NECK: Supple. Tracheostomy present. CHEST: Rise symmetrical. Breath sounds diminished. HEART: S1, S2. ABDOMEN: Distended, soft. G-tube site clear. Bowel sounds present. EXTREMITIES: Wasted with trace edema. SKIN: With multiple unstageable decubiti. ASSESSMENT: 1. Sepsis 2. GNRl urinary tract infection. 3. Multiple unstageable wounds 4. Acute renal failure. 5. Chronic respiratory failure with sputum culture grew multidrug resistant pseudomonas and Morganella morganii. 6. Advanced multiple sclerosis with functional quadriplegia. 7. S/p fecal impaction. PLAN: Stable, continue abx, local wound care, f/u funal cx DW staff Problems: Consultation Date/Type/Reason Admit Date/Time Dec 15, 2016 at 12:23 Initial Consult Date 12/16/16 Type of Consultation: ID Exam/Review of Systems Vital Signs Vitals Vital Signs Date Time Temp Pulse Resp B/P Pulse Ox O2 Delivery O2 Flow Rate FiO2 12/16/16 15:23 98.3 86 18 96/61 100 12/16/16 15:15 30 12/15/16 23:00 Mechanical Ventilator Intake and Output 12/15/16 12/15/16 12/16/16 15:00 23:00 07:00 Output Total 550 ml Balance -550 ml Results Result Diagram: 12/16/16 1310 12/16/16 0625 Results 24 hrs Laboratory Tests Test 12/15/16 22:42 12/16/16 02:49 12/16/16 06:17 12/16/16 06:25 Bedside Glucose 264 H 207 233 H Anion Gap 18 H Basophils # 0.0 Basophils % 0.5 Blood Urea Nitrogen 27 #H Calcium Level 9.4 Carbon Dioxide Level 23 Chloride Level 105 Creatinine 0.77 Eosinophils # 0.4 Eosinophils % 9.3 H Glucose Level 212 # Hematocrit 23.6 L Hemoglobin 7.3 L Lymphocytes # 0.9 Lymphocytes % 20.2 Magnesium Level 1.8 Mean Corpuscular Hemoglobin 28.3 L Mean Corpuscular Hemoglobin Concent 30.9 L Mean Corpuscular Volume 91.5 Mean Platelet Volume 10.6 H Monocytes # 0.4 Monocytes % 8.8 Neutrophils # 2.5 Neutrophils % 59.8 Nucleated Red Blood Cells # 0.0 Nucleated Red Blood Cells % 0.5 H Platelet Count 206 Potassium Level 3.8 Red Blood Count 2.58 L Red Cell Distribution Width 16.4 H Sodium Level 142 White Blood Count 4.2 L Test 12/16/16 07:37 12/16/16 12:10 12/16/16 13:10 Bedside Glucose 257 H 191 Hematocrit 22.1 L Hemoglobin 6.7 *L Medications Medications Current Medications Ondansetron HCl (Zofran Inj) 4 mg Q6H PRN IV NAUSEA AND/OR VOMITING; Start at 18:30 Morphine Sulfate (morphine) 2 mg Q4H PRN IV SEVERE PAIN LEVEL 7-10; Start 12/15 at 18:30 Heparin Sodium (Porcine) (Heparin (5000 Units/0.5 ml)) 5,000 unit Q12 SC Last administered on 12/16/16 09:09; Admin Dose 5,000 UNIT; Start 12/15/16 at 21:00 Acetaminophen (Tylenol Liquid) 650 mg Q4H PRN GTB ELEVATED TEMPERATURE; Start 12/15/16 at 18:30 Atorvastatin Calcium (Lipitor) 40 mg QHS GTB Last administered on 12/15/16 22: 40; Admin Dose 40 MG; Start 12/15/16 at 21:00 Baclofen (Lioresal) 20 mg TID GTB Last administered on 12/16/16 13:00; Admin Dose 20 MG; Start 12/15/16 at 21:00 Clonidine (Catapres) 0.1 mg Q8 GTB Last administered on 12/16/16 13:01; Admin Dose 0.1 MG; Start 12/15/16 at 22:00 Diphenhydramine HCl (Benadryl Liquid Cup) 25 mg Q4H PRN GTB ITCHING; Start at 18:30 Gemfibrozil (Lopid) 600 mg BID GTB Last administered on 12/16/16 09:06; Admin Dose 600 MG; Start 12/15/16 at 21:00 Insulin Detemir (Levemir) 40 unit QAM SC Last administered on 12/16/16 10:07; Admin Dose 40 UNIT; Start 12/16/16 at 09:00 Metoprolol Tartrate (Lopressor) 25 mg BID GTB Last administered on 12/16/16 09 :06; Admin Dose 25 MG; Start 12/15/16 at 21:00 Simethicone (Mylicon) 160 mg DAILY PRN GTB DISTENSION/GAS/BLOATING; Start 12/15 at 18:30 Zinc Sulfate (Zinc Sulfate) 220 mg DAILY GTB Last administered on 12/16/16 09: 06; Admin Dose 220 MG; Start 12/16/16 at 09:00 Insulin Aspart (Novolog Insulin Pen) NOVOLOG *MILD* ALGORI... Q4 SC Last administered on 12/16/16 12:13; Admin Dose 2 UNIT; Start 12/15/16 at 21:00 Miscellaneous Information 1 ea NOTE XX ; Start 12/15/16 at 19:30 Glucose (Glutose) 15 gm Q15M PRN PO DECREASED GLUCOSE; Start 12/15/16 at 19:30 Glucose (Glutose) 22.5 gm Q15M PRN PO DECREASED GLUCOSE; Start 12/15/16 at 19: 30 Dextrose (D50w Syringe) 25 ml Q15M PRN IV DECREASED GLUCOSE; Start 12/15/16 at 19:30 Dextrose (D50w Syringe) 50 ml Q15M PRN IV DECREASED GLUCOSE; Start 12/15/16 at 19:30 Glucagon (Glucagen) 1 mg Q15M PRN IM DECREASED GLUCOSE; Start 12/15/16 at 19:30 Glucose 15 gm 15 gm Q15M PRN BUCCAL DECREASED GLUCOSE; Start 12/15/16 at 19:30 Aztreonam 50 ml @ 100 mls/hr Q12 IVPB Last administered on 12/16/16 09:51; Admin Dose 100 MLS/HR; Start 12/16/16 at 01:00 Sodium Chloride (NS) 1,000 ml @ 100 mls/hr Q10H IV Last administered on t 07:04; Admin Dose 100 MLS/HR; Start 12/16/16 at 07:00 Collagenase (Santyl) 1 applic DAILY TOP ; Start 12/16/16 at 15:00 FLEX DENNISON NP Dec 16, 2016 15:47
[2016-12-16] MEDS ORDERED: SOD CHLORIDE 0.9% 250 ML IV* ONE (15:49)
--- NOTE | 2016-12-16 15:52 | PN ---
Date/Time of Note Date/Time of Note DATE: 12/16/16 TIME: 15:49 Assessment/Plan VTE Prophylaxis VTE Prophylaxis Intervention: heparin Assessment/Plan Chief Complaint/Hosp Course 1. Sepsis secondary to urinary tract infection Continue IV antibiotics, follow-up on cultures ID consultation 2. 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 Diabetes-currently elevated possibly secondary to stress from sepsis Continue home regimen and NovoLog sliding scale, if sugars continue to be elevated will increase insulin dose in a.m. 4. Prophylaxis, heparin. Problems: Subjective 24 Hr Interval Summary Subjective hx not possible: pt non-verbal Exam/Review of Systems Vital Signs Vitals Vital Signs Date Time Temp Pulse Resp B/P Pulse Ox O2 Delivery O2 Flow Rate FiO2 12/16/16 15:23 98.3 86 18 96/61 100 12/16/16 15:15 30 12/15/16 23:00 Mechanical Ventilator Intake and Output 12/15/16 12/15/16 12/16/16 15:00 23:00 07:00 Output Total 550 ml Balance -550 ml Exam Constitutional: non-verbal Respiratory: clear to auscultation Cardiovascular: regular rate and rhythm Gastrointestinal: soft, No distended Musculoskeletal: nl extremities to inspection Results Result Diagram: 12/16/16 1310 12/16/16 0625 Results 24 hrs Laboratory Tests Test 12/15/16 22:42 12/16/16 02:49 12/16/16 06:17 12/16/16 06:25 Bedside Glucose 264 H 207 233 H Anion Gap 18 H Basophils # 0.0 Basophils % 0.5 Blood Urea Nitrogen 27 #H Calcium Level 9.4 Carbon Dioxide Level 23 Chloride Level 105 Creatinine 0.77 Eosinophils # 0.4 Eosinophils % 9.3 H Glucose Level 212 # Hematocrit 23.6 L Hemoglobin 7.3 L Lymphocytes # 0.9 Lymphocytes % 20.2 Magnesium Level 1.8 Mean Corpuscular Hemoglobin 28.3 L Mean Corpuscular Hemoglobin Concent 30.9 L Mean Corpuscular Volume 91.5 Mean Platelet Volume 10.6 H Monocytes # 0.4 Monocytes % 8.8 Neutrophils # 2.5 Neutrophils % 59.8 Nucleated Red Blood Cells # 0.0 Nucleated Red Blood Cells % 0.5 H Platelet Count 206 Potassium Level 3.8 Red Blood Count 2.58 L Red Cell Distribution Width 16.4 H Sodium Level 142 White Blood Count 4.2 L Test 12/16/16 07:37 12/16/16 12:10 12/16/16 13:10 Bedside Glucose 257 H 191 Hematocrit 22.1 L Hemoglobin 6.7 *L Medications Medications Current Medications Ondansetron HCl (Zofran Inj) 4 mg Q6H PRN IV NAUSEA AND/OR VOMITING; Start at 18:30 Morphine Sulfate (morphine) 2 mg Q4H PRN IV SEVERE PAIN LEVEL 7-10; Start 12/15 at 18:30 Heparin Sodium (Porcine) (Heparin (5000 Units/0.5 ml)) 5,000 unit Q12 SC Last administered on 12/16/16 09:09; Admin Dose 5,000 UNIT; Start 12/15/16 at 21:00 Acetaminophen (Tylenol Liquid) 650 mg Q4H PRN GTB ELEVATED TEMPERATURE; Start 12/15/16 at 18:30 Atorvastatin Calcium (Lipitor) 40 mg QHS GTB Last administered on 12/15/16 22: 40; Admin Dose 40 MG; Start 12/15/16 at 21:00 Baclofen (Lioresal) 20 mg TID GTB Last administered on 12/16/16 13:00; Admin Dose 20 MG; Start 12/15/16 at 21:00 Clonidine (Catapres) 0.1 mg Q8 GTB Last administered on 12/16/16 13:01; Admin Dose 0.1 MG; Start 12/15/16 at 22:00 Diphenhydramine HCl (Benadryl Liquid Cup) 25 mg Q4H PRN GTB ITCHING; Start at 18:30 Gemfibrozil (Lopid) 600 mg BID GTB Last administered on 12/16/16 09:06; Admin Dose 600 MG; Start 12/15/16 at 21:00 Insulin Detemir (Levemir) 40 unit QAM SC Last administered on 12/16/16 10:07; Admin Dose 40 UNIT; Start 12/16/16 at 09:00 Metoprolol Tartrate (Lopressor) 25 mg BID GTB Last administered on 12/16/16 09 :06; Admin Dose 25 MG; Start 12/15/16 at 21:00 Simethicone (Mylicon) 160 mg DAILY PRN GTB DISTENSION/GAS/BLOATING; Start 12/15 at 18:30 Zinc Sulfate (Zinc Sulfate) 220 mg DAILY GTB Last administered on 12/16/16 09: 06; Admin Dose 220 MG; Start 12/16/16 at 09:00 Insulin Aspart (Novolog Insulin Pen) NOVOLOG *MILD* ALGORI... Q4 SC Last administered on 12/16/16 12:13; Admin Dose 2 UNIT; Start 12/15/16 at 21:00 Miscellaneous Information 1 ea NOTE XX ; Start 12/15/16 at 19:30 Glucose (Glutose) 15 gm Q15M PRN PO DECREASED GLUCOSE; Start 12/15/16 at 19:30 Glucose (Glutose) 22.5 gm Q15M PRN PO DECREASED GLUCOSE; Start 12/15/16 at 19: 30 Dextrose (D50w Syringe) 25 ml Q15M PRN IV DECREASED GLUCOSE; Start 12/15/16 at 19:30 Dextrose (D50w Syringe) 50 ml Q15M PRN IV DECREASED GLUCOSE; Start 12/15/16 at 19:30 Glucagon (Glucagen) 1 mg Q15M PRN IM DECREASED GLUCOSE; Start 12/15/16 at 19:30 Glucose 15 gm 15 gm Q15M PRN BUCCAL DECREASED GLUCOSE; Start 12/15/16 at 19:30 Aztreonam 50 ml @ 100 mls/hr Q12 IVPB Last administered on 12/16/16 09:51; Admin Dose 100 MLS/HR; Start 12/16/16 at 01:00 Sodium Chloride (NS) 1,000 ml @ 100 mls/hr Q10H IV Last administered on 07:04; Admin Dose 100 MLS/HR; Start 12/16/16 at 07:00 Collagenase (Santyl) 1 applic DAILY TOP ; Start 12/16/16 at 15:00 LATA SULLIVAN Dec 16, 2016 15:52
[2016-12-16] MEDS: COLLAGENASE 30 GM TUBE TOP SCH (16:44)
[2016-12-16] MEDS: ATORVASTATIN 40 MG TAB GTB SCH (20:43)
[2016-12-17] VITALS (25 sets, daily range): BP systolic 86–107; BP diastolic 51–84; PULSE 73–95; RESP 16–24
[2016-12-17] MEDS: INSULIN ASPART [NOVOLOG] 3 ML PEN SC SCH ×6 (03:18→21:00)
[2016-12-17] MEDS: SOD CHLORIDE 0.9% 1,000 ML IV SCH ×2 (03:56→13:35)
[2016-12-17] MEDS: METOPROLOL 25 MG TAB GTB SCH ×2 (09:00→22:05)
[2016-12-17] MEDS: BACLOFEN 10 MG TAB GTB SCH ×3 (09:35→22:03)
[2016-12-17] MEDS: ZINC SULFATE 220 MG CAP GTB SCH (09:35)
[2016-12-17] MEDS: GEMFIBROZIL 600 MG TAB GTB SCH ×2 (09:35→22:03)
[2016-12-17] MEDS: AZTREONAM 1 GM/NS (PMX) 50 ML IVPB SCH (09:36)
[2016-12-17] MEDS: HEPARIN 5,000 UNIT/0.5 ML SYG SC SCH ×2 (09:50→22:47)
[2016-12-17] MEDS: INSULIN DETEMIR [LEVEMIR] 3ML CART SC SCH (09:53)
[2016-12-17] MEDS: COLLAGENASE 30 GM TUBE TOP SCH (09:58)
[2016-12-17 11:23] LABS: ADD SCAN DIFF NO
[2016-12-17 11:29] LABS: BASOPHILS % 0.5 % (0.0-2.0); EOSINOPHILS # 0.4 10^3/ul (0.0-0.5); EOSINOPHILS % 9.5 % (0.0-7.0); HEMATOCRIT 27.6 % (37.0-47.0); HEMOGLOBIN 8.7 g/dl (12.0-16.0); LYMPHOCYTES # 0.9 10^3/ul (0.8-2.9); LYMPHOCYTES % 21.9 % (15.0-51.0); MEAN CORPUSCULAR HEMOGLOBIN 28.4 pg (29.0-33.0); MEAN CORPUSCULAR HGB CONC 31.5 g/dl (32.0-37.0); MEAN CORPUSCULAR VOLUME 90.2 fl (82.0-101.0); MEAN PLATELET VOLUME 10.5 fl (7.4-10.4); MONOCYTE # 0.3 10^3/ul (0.3-0.9); NEUTROPHIL # 2.4 10^3/ul (1.6-7.5); NEUTROPHILS % 58.6 % (39.0-77.0); PLATELET COUNT 218 10^3/UL (140-415); RED BLOOD COUNT 3.06 10^6/ul (4.20-5.40); RED CELL DISTRIBUTION WIDTH 17.1 % (11.5-14.5); WHITE BLOOD COUNT 4.1 10^3/ul (4.8-10.8)
[2016-12-17 11:34] LABS: POTASSIUM 4.1 mmol/L (3.5-5.1)
[2016-12-17 11:36] LABS: CREATININE 0.72 mg/dl (0.44-1.00)
[2016-12-17 11:37] LABS: CALCIUM 8.7 mg/dl (8.4-10.2)
[2016-12-17] MEDS: metroNIDAZOLE 500 MG/NS (PMX) 100 ML IVPB SCH ×2 (13:36→22:04)
--- NOTE | 2016-12-17 14:05 | PN ---
DATE: 12/17/2016 SUBJECTIVE: The patient is stable this morning. No new events. Continues mechanical ventilation, without any evidence of respiratory distress. PHYSICAL EXAMINATION: VITAL SIGNS: Temperature 98, pulse 90, blood pressure 88/51, O2 saturation 98% on 30% FIO2. NECK: Trach site is clean and intact. CARDIAC EXAM: S1, S2. No added sounds or murmurs. CHEST: Diminished air entry at both lung bases. ABDOMEN: Mildly distended, soft. EXTREMITIES: No cyanosis or clubbing. 1+ edema. NEUROLOGIC: Generalized weakness. LABORATORY: White count 4.1, hemoglobin 8.7, platelets of 218, BUN 23, creatinine 0.72. Urinalysis is consistent with a UTI. IMPRESSION: 1. Vent-dependent respiratory failure. 2. Significant anemia, questionable gastrointestinal bleed. 3. Urinary tract infection. 4. History of anoxic brain injury with encephalopathy. 5. Dysphagia with G-tube. PLAN: 1. Continue vent support. 2. Continue antibiotics, currently on Flagyl and aztreonam. 3. Continue glycemic management. 4. Bronchodilators. 5. DVT and GI prophylaxis. Dictated By: ULYSSES BENNETT/HERI Conf#: [id number] DID#: [id number]
[2016-12-17] MEDS: CEFEPIME 1GM/50 ML (PMX) 50 ML IVPB SCH ×2 (15:47→22:50)
--- NOTE | 2016-12-17 17:11 | CONS ---
Date/Time of Note Date/Time of Note DATE: 12/17/16 TIME: 17:10 Assessment/Plan Assessment/Plan Chief Complaint/Hosp Course SUBJECTIVE: No events, afebrile, noncommunicative, NAD Indwelling: Trach, Peg Joel RUE PICC 11/20/16 ANTIMICROBIALS: Cefepime, Flagyl MICROBIOLOGY: Urine culture + GNR ALLERGIES: 1. LEVAQUIN. 2. ? CEPHALOSPORINS. 3. PENICILLIN. 4. VANCOMYCIN. OBJECTIVE: GENERAL: This is a chronically ill-appearing, middle-aged woman who is lying comfortably in bed. The patient is nonverbal, nonresponsive. HEENT: Head atraumatic, normocephalic. Sclerae anicteric. Buccal mucosa dry. NECK: Supple. Tracheostomy present. CHEST: Rise symmetrical. Breath sounds diminished. HEART: S1, S2. ABDOMEN: Distended, soft. G-tube site clear. Bowel sounds present. EXTREMITIES: Wasted with trace edema. SKIN: With multiple unstageable decubiti. ASSESSMENT: 1. Sepsis 2. GNRl urinary tract infection===> Kleb ESBL. 3. Multiple unstageable wounds 4. Acute renal failure. 5. Chronic respiratory failure with sputum culture grew multidrug resistant pseudomonas and Morganella morganii. 6. Advanced multiple sclerosis with functional quadriplegia. 7. C dif colitis. PLAN: Stable, continue abx, local wound care, add probiotics DW staff Problems: Consultation Date/Type/Reason Admit Date/Time Dec 15, 2016 at 12:23 Initial Consult Date 12/16/16 Type of Consultation: ID Exam/Review of Systems Vital Signs Vitals Vital Signs Date Time Temp Pulse Resp B/P Pulse Ox O2 Delivery O2 Flow Rate FiO2 12/17/16 16:19 73 12/17/16 15:57 98.4 17 92/59 100 12/17/16 13:56 30 12/17/16 05:00 Mechanical Ventilator Trach Collar Intake and Output 12/16/16 12/16/16 12/17/16 15:00 23:00 07:00 Intake Total 50 ml 1130 ml 1950 ml Output Total 800 ml 700 ml Balance 50 ml 330 ml 1250 ml Results Result Diagram: 12/17/16 1115 12/17/16 1115 Results 24 hrs Laboratory Tests Test 12/16/16 20:40 12/17/16 03:10 12/17/16 06:02 12/17/16 09:33 Bedside Glucose 162 154 177 236 H Test 12/17/16 11:15 12/17/16 13:44 Anion Gap 15 Basophils # 0.0 Basophils % 0.5 Blood Urea Nitrogen 23 H Calcium Level 8.7 Carbon Dioxide Level 21 Chloride Level 112 H Creatinine 0.72 Eosinophils # 0.4 Eosinophils % 9.5 H Glucose Level 193 Hematocrit 27.6 #L Hemoglobin 8.7 #L Lymphocytes # 0.9 Lymphocytes % 21.9 Mean Corpuscular Hemoglobin 28.4 L Mean Corpuscular Hemoglobin Concent 31.5 L Mean Corpuscular Volume 90.2 Mean Platelet Volume 10.5 H Monocytes # 0.3 Monocytes % 8.0 Neutrophils # 2.4 Neutrophils % 58.6 Nucleated Red Blood Cells # 0.0 Nucleated Red Blood Cells % 0.0 Platelet Count 218 Potassium Level 4.1 Red Blood Count 3.06 L Red Cell Distribution Width 17.1 H Sodium Level 144 White Blood Count 4.1 L Bedside Glucose 135 Medications Medications Current Medications Ondansetron HCl (Zofran Inj) 4 mg Q6H PRN IV NAUSEA AND/OR VOMITING; Start at 18:30 Morphine Sulfate (morphine) 2 mg Q4H PRN IV SEVERE PAIN LEVEL 7-10; Start 12/15 at 18:30 Heparin Sodium (Porcine) (Heparin (5000 Units/0.5 ml)) 5,000 unit Q12 SC Last administered on 12/17/16 09:50; Admin Dose 5,000 UNIT; Start 12/15/16 at 21:00 Acetaminophen (Tylenol Liquid) 650 mg Q4H PRN GTB ELEVATED TEMPERATURE; Start 12/15/16 at 18:30 Atorvastatin Calcium (Lipitor) 40 mg QHS GTB Last administered on 12/16/16 20: 43; Admin Dose 40 MG; Start 12/15/16 at 21:00 Baclofen (Lioresal) 20 mg TID GTB Last administered on 12/17/16 13:26; Admin Dose 20 MG; Start 12/15/16 at 21:00 Clonidine (Catapres) 0.1 mg Q8 GTB Last administered on 12/16/16 13:01; Admin Dose 0.1 MG; Start 12/15/16 at 22:00 Diphenhydramine HCl (Benadryl Liquid Cup) 25 mg Q4H PRN GTB ITCHING; Start at 18:30 Gemfibrozil (Lopid) 600 mg BID GTB Last administered on 12/17/16 09:35; Admin Dose 600 MG; Start 12/15/16 at 21:00 Insulin Detemir (Levemir) 40 unit QAM SC Last administered on 12/17/16 09:53; Admin Dose 40 UNIT; Start 12/16/16 at 09:00 Metoprolol Tartrate (Lopressor) 25 mg BID GTB Last administered on 12/16/16 09 :06; Admin Dose 25 MG; Start 12/15/16 at 21:00 Simethicone (Mylicon) 160 mg DAILY PRN GTB DISTENSION/GAS/BLOATING; Start 12/15 at 18:30 Zinc Sulfate (Zinc Sulfate) 220 mg DAILY GTB Last administered on 12/17/16 09: 35; Admin Dose 220 MG; Start 12/16/16 at 09:00 Insulin Aspart (Novolog Insulin Pen) NOVOLOG *MILD* ALGORI... Q4 SC Last administered on 12/17/16 09:57; Admin Dose 3 UNIT; Start 12/15/16 at 21:00 Miscellaneous Information 1 ea NOTE XX ; Start 12/15/16 at 19:30 Glucose (Glutose) 15 gm Q15M PRN PO DECREASED GLUCOSE; Start 12/15/16 at 19:30 Glucose (Glutose) 22.5 gm Q15M PRN PO DECREASED GLUCOSE; Start 12/15/16 at 19: 30 Dextrose (D50w Syringe) 25 ml Q15M PRN IV DECREASED GLUCOSE; Start 12/15/16 at 19:30 Dextrose (D50w Syringe) 50 ml Q15M PRN IV DECREASED GLUCOSE; Start 12/15/16 at 19:30 Glucagon (Glucagen) 1 mg Q15M PRN IM DECREASED GLUCOSE; Start 12/15/16 at 19:30 Glucose 15 gm 15 gm Q15M PRN BUCCAL DECREASED GLUCOSE; Start 12/15/16 at 19:30 Sodium Chloride (NS) 1,000 ml @ 100 mls/hr Q10H IV Last administered on 13:35; Admin Dose 100 MLS/HR; Start 12/16/16 at 07:00 Collagenase 1 applic 1 applic DAILY TOP Last administered on 12/17/16 09:58; Admin Dose 1 APPLIC; Start 12/16/16 at 15:00 Metronidazole 100 ml @ 100 mls/hr Q8 IVPB Last administered on 12/17/16 13:36 ; Admin Dose 100 MLS/HR; Start 12/17/16 at 14:00 Cefepime HCl (Maxipime 1gm/50 ml (Pmx)) 50 ml @ 100 mls/hr Q12 IVPB Last administered on 12/17/16 15:47; Admin Dose 100 MLS/HR; Start 12/17/16 at 14:00 FLEX DENNISON NP Dec 17, 2016 17:11
--- NOTE | 2016-12-17 18:20 | PN ---
Date/Time of Note Date/Time of Note DATE: 12/17/16 TIME: 18:15 Assessment/Plan VTE Prophylaxis VTE Prophylaxis Intervention: heparin Assessment/Plan Chief Complaint/Hosp Course 1. Sepsis secondary to urinary tract infection and/or C. difficile Continue IV antibiotics, urine culture shows Klebsiella pneumonia ESBL Started Flagyl IV as patient is C. difficile positive ID consultation appreciated 2. History of chronic encephalopathy from cerebrovascular accident, status post trach/PEG, history of stage IV sacral ulcer Pulmonology consultation appreciated 3. Diabetes-currently were elevated but are now stable Continue home regimen and NovoLog sliding scale, if sugars continue to drop then we will decrease insulin regimen 4. Anemia status post 2 unit of packed red blood cells-stable Etiology is likely secondary to anemia of chronic disease Prophylaxis- heparin Problems: Subjective 24 Hr Interval Summary Subjective hx not possible: pt non-verbal Exam/Review of Systems Vital Signs Vitals Vital Signs Date Time Temp Pulse Resp B/P Pulse Ox O2 Delivery O2 Flow Rate FiO2 12/17/16 17:31 89 18 100 30 12/17/16 15:57 98.4 92/59 12/17/16 09:00 Mechanical Ventilator Intake and Output 12/16/16 12/16/16 12/17/16 15:00 23:00 07:00 Intake Total 50 ml 1130 ml 1950 ml Output Total 800 ml 700 ml Balance 50 ml 330 ml 1250 ml Exam Constitutional: non-verbal Respiratory: clear to auscultation Cardiovascular: regular rate and rhythm Gastrointestinal: soft, No distended Musculoskeletal: nl extremities to inspection Results Result Diagram: 12/17/16 1115 12/17/16 1115 Results 24 hrs Laboratory Tests Test 12/16/16 20:40 12/17/16 03:10 12/17/16 06:02 12/17/16 09:33 Bedside Glucose 162 154 177 236 H Test 12/17/16 11:15 12/17/16 13:44 12/17/16 17:57 Anion Gap 15 Basophils # 0.0 Basophils % 0.5 Blood Urea Nitrogen 23 H Calcium Level 8.7 Carbon Dioxide Level 21 Chloride Level 112 H Creatinine 0.72 Eosinophils # 0.4 Eosinophils % 9.5 H Glucose Level 193 Hematocrit 27.6 #L Hemoglobin 8.7 #L Lymphocytes # 0.9 Lymphocytes % 21.9 Mean Corpuscular Hemoglobin 28.4 L Mean Corpuscular Hemoglobin Concent 31.5 L Mean Corpuscular Volume 90.2 Mean Platelet Volume 10.5 H Monocytes # 0.3 Monocytes % 8.0 Neutrophils # 2.4 Neutrophils % 58.6 Nucleated Red Blood Cells # 0.0 Nucleated Red Blood Cells % 0.0 Platelet Count 218 Potassium Level 4.1 Red Blood Count 3.06 L Red Cell Distribution Width 17.1 H Sodium Level 144 White Blood Count 4.1 L Bedside Glucose 135 50 L Medications Medications Current Medications Ondansetron HCl (Zofran Inj) 4 mg Q6H PRN IV NAUSEA AND/OR VOMITING; Start at 18:30 Morphine Sulfate (morphine) 2 mg Q4H PRN IV SEVERE PAIN LEVEL 7-10; Start 12/15 at 18:30 Heparin Sodium (Porcine) (Heparin (5000 Units/0.5 ml)) 5,000 unit Q12 SC Last administered on 12/17/16 09:50; Admin Dose 5,000 UNIT; Start 12/15/16 at 21:00 Acetaminophen (Tylenol Liquid) 650 mg Q4H PRN GTB ELEVATED TEMPERATURE; Start 12/15/16 at 18:30 Atorvastatin Calcium (Lipitor) 40 mg QHS GTB Last administered on 12/16/16 20: 43; Admin Dose 40 MG; Start 12/15/16 at 21:00 Baclofen (Lioresal) 20 mg TID GTB Last administered on 12/17/16 13:26; Admin Dose 20 MG; Start 12/15/16 at 21:00 Clonidine (Catapres) 0.1 mg Q8 GTB Last administered on 12/16/16 13:01; Admin Dose 0.1 MG; Start 12/15/16 at 22:00 Diphenhydramine HCl (Benadryl Liquid Cup) 25 mg Q4H PRN GTB ITCHING; Start at 18:30 Gemfibrozil (Lopid) 600 mg BID GTB Last administered on 12/17/16 09:35; Admin Dose 600 MG; Start 12/15/16 at 21:00 Insulin Detemir (Levemir) 40 unit QAM SC Last administered on 12/17/16 09:53; Admin Dose 40 UNIT; Start 12/16/16 at 09:00 Metoprolol Tartrate (Lopressor) 25 mg BID GTB Last administered on 12/16/16 09 :06; Admin Dose 25 MG; Start 12/15/16 at 21:00 Simethicone (Mylicon) 160 mg DAILY PRN GTB DISTENSION/GAS/BLOATING; Start 12/15 at 18:30 Zinc Sulfate (Zinc Sulfate) 220 mg DAILY GTB Last administered on 12/17/16 09: 35; Admin Dose 220 MG; Start 12/16/16 at 09:00 Insulin Aspart (Novolog Insulin Pen) NOVOLOG *MILD* ALGORI... Q4 SC Last administered on 12/17/16 09:57; Admin Dose 3 UNIT; Start 12/15/16 at 21:00 Miscellaneous Information 1 ea NOTE XX ; Start 12/15/16 at 19:30 Glucose (Glutose) 15 gm Q15M PRN PO DECREASED GLUCOSE; Start 12/15/16 at 19:30 Glucose (Glutose) 22.5 gm Q15M PRN PO DECREASED GLUCOSE; Start 12/15/16 at 19: 30 Dextrose (D50w Syringe) 25 ml Q15M PRN IV DECREASED GLUCOSE; Start 12/15/16 at 19:30 Dextrose (D50w Syringe) 50 ml Q15M PRN IV DECREASED GLUCOSE; Start 12/15/16 at 19:30 Glucagon (Glucagen) 1 mg Q15M PRN IM DECREASED GLUCOSE; Start 12/15/16 at 19:30 Glucose 15 gm 15 gm Q15M PRN BUCCAL DECREASED GLUCOSE; Start 12/15/16 at 19:30 Sodium Chloride (NS) 1,000 ml @ 100 mls/hr Q10H IV Last administered on 13:35; Admin Dose 100 MLS/HR; Start 12/16/16 at 07:00 Collagenase 1 applic 1 applic DAILY TOP Last administered on 12/17/16 09:58; Admin Dose 1 APPLIC; Start 12/16/16 at 15:00 Metronidazole 100 ml @ 100 mls/hr Q8 IVPB Last administered on 12/17/16 13:36 ; Admin Dose 100 MLS/HR; Start 12/17/16 at 14:00 Cefepime HCl (Maxipime 1gm/50 ml (Pmx)) 50 ml @ 100 mls/hr Q12 IVPB Last administered on 12/17/16 15:47; Admin Dose 100 MLS/HR; Start 12/17/16 at 14:00 Lactobacillus Acidoph/Bulgaricus (Floranex) 1 tab TID PO ; Start 12/17/16 at 21: 00 LATA SULLIVAN 18, 2017 18:19
[2016-12-17] MEDS: ATORVASTATIN 40 MG TAB GTB SCH (22:02)
[2016-12-17] MEDS: LACTOBACILLUS CHEW TAB PO SCH (22:04)
[2016-12-18] VITALS (23 sets, daily range): BP systolic 93–122; BP diastolic 56–76; PULSE 67–86; RESP 16
[2016-12-18] MEDS: INSULIN ASPART [NOVOLOG] 3 ML PEN SC SCH ×5 (01:00→16:58)
[2016-12-18] MEDS: SOD CHLORIDE 0.9% 1,000 ML IV SCH ×2 (01:20→08:33)
[2016-12-18] MEDS: metroNIDAZOLE 500 MG/NS (PMX) 100 ML IVPB SCH ×2 (04:38→13:33)
[2016-12-18 05:55] LABS: ADD SCAN DIFF NO
[2016-12-18 06:03] LABS: BASOPHILS % 0.3 % (0.0-2.0); EOSINOPHILS # 0.4 10^3/ul (0.0-0.5); EOSINOPHILS % 9.6 % (0.0-7.0); HEMATOCRIT 28.4 % (37.0-47.0); HEMOGLOBIN 8.6 g/dl (12.0-16.0); LYMPHOCYTES # 0.9 10^3/ul (0.8-2.9); LYMPHOCYTES % 24.8 % (15.0-51.0); MEAN CORPUSCULAR HEMOGLOBIN 27.7 pg (29.0-33.0); MEAN CORPUSCULAR HGB CONC 30.3 g/dl (32.0-37.0); MEAN CORPUSCULAR VOLUME 91.6 fl (82.0-101.0); MEAN PLATELET VOLUME 10.5 fl (7.4-10.4); MONOCYTE # 0.3 10^3/ul (0.3-0.9); NEUTROPHILS % 54.5 % (39.0-77.0); PLATELET COUNT 219 10^3/UL (140-415); RED CELL DISTRIBUTION WIDTH 17.2 % (11.5-14.5); WHITE BLOOD COUNT 3.6 10^3/ul (4.8-10.8)
[2016-12-18 06:29] LABS: POTASSIUM 3.6 mmol/L (3.5-5.1)
[2016-12-18 06:32] LABS: CREATININE 0.65 mg/dl (0.44-1.00)
[2016-12-18 06:33] LABS: CALCIUM 8.5 mg/dl (8.4-10.2)
[2016-12-18] MEDS: LACTOBACILLUS CHEW TAB PO SCH ×2 (08:32→12:39)
[2016-12-18] MEDS: BACLOFEN 10 MG TAB GTB SCH ×2 (08:33→12:39)
[2016-12-18] MEDS: ZINC SULFATE 220 MG CAP GTB SCH (08:33)
[2016-12-18] MEDS: GEMFIBROZIL 600 MG TAB GTB SCH (08:33)
[2016-12-18] MEDS: METOPROLOL 25 MG TAB GTB SCH (08:33)
[2016-12-18] MEDS: HEPARIN 5,000 UNIT/0.5 ML SYG SC SCH (08:34)
[2016-12-18] MEDS: INSULIN DETEMIR [LEVEMIR] 3ML CART SC SCH (08:35)
[2016-12-18] MEDS: COLLAGENASE 30 GM TUBE TOP SCH (08:41)
[2016-12-18] MEDS: CEFEPIME 1GM/50 ML (PMX) 50 ML IVPB SCH (08:41)
--- NOTE | 2016-12-18 13:42 | PN ---
Date/Time of Note Date/Time of Note DATE: 12/18/16 TIME: 13:40 Assessment/Plan VTE Prophylaxis VTE Prophylaxis Intervention: heparin Assessment/Plan Chief Complaint/Hosp Course 1. Sepsis secondary to urinary tract infection and/or C. difficile Continue IV antibiotics, urine culture shows Klebsiella pneumonia ESBL Cont Flagyl IV as patient is C. difficile positive ID consultation appreciated 2. History of chronic encephalopathy from cerebrovascular accident, status post trach/PEG, history of stage IV sacral ulcer Pulmonology consultation appreciated 3. Diabetes-currently were elevated but are now stable Continue home regimen and NovoLog sliding scale, if sugars continue to drop then we will decrease insulin regimen 4. Anemia status post 2 unit of packed red blood cells-stable Etiology is likely secondary to anemia of chronic disease Prophylaxis- heparin Problems: Subjective 24 Hr Interval Summary Subjective hx not possible: pt non-verbal Exam/Review of Systems Vital Signs Vitals Vital Signs Date Time Temp Pulse Resp B/P Pulse Ox O2 Delivery O2 Flow Rate FiO2 12/18/16 13:21 87 16 96 25 12/18/16 11:46 98.4 117/71 12/17/16 09:00 Mechanical Ventilator Intake and Output 12/17/16 12/17/16 12/18/16 15:00 23:00 07:00 Intake Total 900 ml 1450 ml Output Total 900 ml Balance 0 ml 1450 ml Exam Constitutional: non-verbal Respiratory: clear to auscultation Cardiovascular: regular rate and rhythm Gastrointestinal: soft, No distended Musculoskeletal: nl extremities to inspection Results Result Diagram: 12/18/16 0514 12/18/16 0514 Results 24 hrs Laboratory Tests Test 12/17/16 13:44 12/17/16 17:57 12/17/16 18:46 12/17/16 21:56 Bedside Glucose 135 50 L 100 109 Test 12/18/16 01:18 12/18/16 04:33 12/18/16 05:14 12/18/16 08:30 Bedside Glucose 94 119 146 Anion Gap 17 H Basophils # 0.0 Basophils % 0.3 Blood Urea Nitrogen 21 H Calcium Level 8.5 Carbon Dioxide Level 20 L Chloride Level 113 H Creatinine 0.65 Eosinophils # 0.4 Eosinophils % 9.6 H Glucose Level 126 # Hematocrit 28.4 L Hemoglobin 8.6 L Lymphocytes # 0.9 Lymphocytes % 24.8 Mean Corpuscular Hemoglobin 27.7 L Mean Corpuscular Hemoglobin Concent 30.3 L Mean Corpuscular Volume 91.6 Mean Platelet Volume 10.5 H Monocytes # 0.3 Monocytes % 8.0 Neutrophils # 2.0 Neutrophils % 54.5 Nucleated Red Blood Cells # 0.0 Nucleated Red Blood Cells % 0.0 Platelet Count 219 Potassium Level 3.6 Red Blood Count 3.10 L Red Cell Distribution Width 17.2 H Sodium Level 146 H White Blood Count 3.6 L Test 12/18/16 12:38 Bedside Glucose 172 Medications Medications Current Medications Ondansetron HCl (Zofran Inj) 4 mg Q6H PRN IV NAUSEA AND/OR VOMITING; Start at 18:30 Morphine Sulfate (morphine) 2 mg Q4H PRN IV SEVERE PAIN LEVEL 7-10; Start 12/15 at 18:30 Heparin Sodium (Porcine) (Heparin (5000 Units/0.5 ml)) 5,000 unit Q12 SC Last administered on 12/18/16 08:34; Admin Dose 5,000 UNIT; Start 12/15/16 at 21:00 Acetaminophen (Tylenol Liquid) 650 mg Q4H PRN GTB ELEVATED TEMPERATURE; Start 12/15/16 at 18:30 Atorvastatin Calcium (Lipitor) 40 mg QHS GTB Last administered on 12/17/16 22: 02; Admin Dose 40 MG; Start 12/15/16 at 21:00 Baclofen (Lioresal) 20 mg TID GTB Last administered on 12/18/16 12:39; Admin Dose 20 MG; Start 12/15/16 at 21:00 Clonidine (Catapres) 0.1 mg Q8 GTB Last administered on 12/18/16 13:31; Admin Dose 0.1 MG; Start 12/15/16 at 22:00 Diphenhydramine HCl (Benadryl Liquid Cup) 25 mg Q4H PRN GTB ITCHING; Start at 18:30 Gemfibrozil (Lopid) 600 mg BID GTB Last administered on 12/18/16 08:33; Admin Dose 600 MG; Start 12/15/16 at 21:00 Insulin Detemir (Levemir) 40 unit QAM SC Last administered on 12/18/16 08:35; Admin Dose 40 UNIT; Start 12/16/16 at 09:00 Metoprolol Tartrate (Lopressor) 25 mg BID GTB Last administered on 12/18/16 08 :33; Admin Dose 25 MG; Start 12/15/16 at 21:00 Simethicone (Mylicon) 160 mg DAILY PRN GTB DISTENSION/GAS/BLOATING; Start 12/15 at 18:30 Zinc Sulfate (Zinc Sulfate) 220 mg DAILY GTB Last administered on 12/18/16 08: 33; Admin Dose 220 MG; Start 12/16/16 at 09:00 Insulin Aspart (Novolog Insulin Pen) NOVOLOG *MILD* ALGORI... Q4 SC Last administered on 12/18/16 12:42; Admin Dose 1 UNIT; Start 12/15/16 at 21:00 Miscellaneous Information 1 ea NOTE XX ; Start 12/15/16 at 19:30 Glucose (Glutose) 15 gm Q15M PRN PO DECREASED GLUCOSE; Start 12/15/16 at 19:30 Glucose (Glutose) 22.5 gm Q15M PRN PO DECREASED GLUCOSE; Start 12/15/16 at 19: 30 Dextrose (D50w Syringe) 25 ml Q15M PRN IV DECREASED GLUCOSE Last administered on 12/17/16 18:18; Admin Dose 25 ML; Start 12/15/16 at 19:30 Dextrose (D50w Syringe) 50 ml Q15M PRN IV DECREASED GLUCOSE; Start 12/15/16 at 19:30 Glucagon (Glucagen) 1 mg Q15M PRN IM DECREASED GLUCOSE; Start 12/15/16 at 19:30 Glucose 15 gm 15 gm Q15M PRN BUCCAL DECREASED GLUCOSE; Start 12/15/16 at 19:30 Sodium Chloride (NS) 1,000 ml @ 100 mls/hr Q10H IV Last administered on 01:20; Admin Dose 100 MLS/HR; Start 12/16/16 at 07:00 Collagenase 1 applic 1 applic DAILY TOP Last administered on 12/18/16 08:41; Admin Dose 1 APPLIC; Start 12/16/16 at 15:00 Metronidazole 100 ml @ 100 mls/hr Q8 IVPB Last administered on 12/18/16 13:33 ; Admin Dose 100 MLS/HR; Start 12/17/16 at 14:00 Cefepime HCl (Maxipime 1gm/50 ml (Pmx)) 50 ml @ 100 mls/hr Q12 IVPB Last administered on 12/18/16 08:41; Admin Dose 100 MLS/HR; Start 12/17/16 at 14:00 Lactobacillus Acidoph/Bulgaricus (Floranex) 1 tab TID PO Last administered on 12:39; Admin Dose 1 TAB; Start 12/17/16 at 21:00 LATA SULLIVAN Dec 18, 2016 13:42
--- NOTE | 2016-12-18 15:56 | CONS ---
Date/Time of Note Date/Time of Note DATE: 12/18/16 TIME: 15:55 Assessment/Plan Assessment/Plan Chief Complaint/Hosp Course SUBJECTIVE: No events, afebrile, noncommunicative, NAD Indwelling: Trach, Peg Joel RUE PICC 11/20/16 ANTIMICROBIALS: Cefepime, Flagyl MICROBIOLOGY: Urine culture + GNR ALLERGIES: 1. LEVAQUIN. 2. ? CEPHALOSPORINS. 3. PENICILLIN. 4. VANCOMYCIN. OBJECTIVE: GENERAL: This is a chronically ill-appearing, middle-aged woman who is lying comfortably in bed. The patient is nonverbal, nonresponsive. HEENT: Head atraumatic, normocephalic. Sclerae anicteric. Buccal mucosa dry. NECK: Supple. Tracheostomy present. CHEST: Rise symmetrical. Breath sounds diminished. HEART: S1, S2. ABDOMEN: Distended, soft. G-tube site clear. Bowel sounds present. EXTREMITIES: Wasted with trace edema. SKIN: With multiple unstageable decubiti. ASSESSMENT: 1. Sepsis 2. GNRl urinary tract infection===> Kleb ESBL. 3. Multiple unstageable wounds 4. Acute renal failure. 5. Chronic respiratory failure with sputum culture grew multidrug resistant pseudomonas and Morganella morganii. 6. Advanced multiple sclerosis with functional quadriplegia. 7. C dif colitis. PLAN: Clinically unchanged, will change Cefepime to Invanz, continue other abx , local wound care, probiotics [facility] staff Problems: Consultation Date/Type/Reason Admit Date/Time Dec 15, 2016 at 12:23 Initial Consult Date 12/16/16 Type of Consultation: ID Exam/Review of Systems Vital Signs Vitals Vital Signs Date Time Temp Pulse Resp B/P Pulse Ox O2 Delivery O2 Flow Rate FiO2 12/18/16 13:21 87 16 96 25 12/18/16 11:46 98.4 117/71 12/17/16 09:00 Mechanical Ventilator Intake and Output 12/17/16 12/17/16 12/18/16 15:00 23:00 07:00 Intake Total 900 ml 1450 ml Output Total 900 ml Balance 0 ml 1450 ml Results Result Diagram: 12/18/16 0514 12/18/16 0514 Results 24 hrs Laboratory Tests Test 12/17/16 17:57 12/17/16 18:46 12/17/16 21:56 12/18/16 01:18 Bedside Glucose 50 L 100 109 94 Test 12/18/16 04:33 12/18/16 05:14 12/18/16 08:30 12/18/16 12:38 Bedside Glucose 119 146 172 Anion Gap 17 H Basophils # 0.0 Basophils % 0.3 Blood Urea Nitrogen 21 H Calcium Level 8.5 Carbon Dioxide Level 20 L Chloride Level 113 H Creatinine 0.65 Eosinophils # 0.4 Eosinophils % 9.6 H Glucose Level 126 # Hematocrit 28.4 L Hemoglobin 8.6 L Lymphocytes # 0.9 Lymphocytes % 24.8 Mean Corpuscular Hemoglobin 27.7 L Mean Corpuscular Hemoglobin Concent 30.3 L Mean Corpuscular Volume 91.6 Mean Platelet Volume 10.5 H Monocytes # 0.3 Monocytes % 8.0 Neutrophils # 2.0 Neutrophils % 54.5 Nucleated Red Blood Cells # 0.0 Nucleated Red Blood Cells % 0.0 Platelet Count 219 Potassium Level 3.6 Red Blood Count 3.10 L Red Cell Distribution Width 17.2 H Sodium Level 146 H White Blood Count 3.6 L Medications Medications Current Medications Ondansetron HCl (Zofran Inj) 4 mg Q6H PRN IV NAUSEA AND/OR VOMITING; Start at 18:30 Morphine Sulfate (morphine) 2 mg Q4H PRN IV SEVERE PAIN LEVEL 7-10; Start 12/15 at 18:30 Heparin Sodium (Porcine) (Heparin (5000 Units/0.5 ml)) 5,000 unit Q12 SC Last administered on 12/18/16 08:34; Admin Dose 5,000 UNIT; Start 12/15/16 at 21:00 Acetaminophen (Tylenol Liquid) 650 mg Q4H PRN GTB ELEVATED TEMPERATURE; Start 12/15/16 at 18:30 Atorvastatin Calcium (Lipitor) 40 mg QHS GTB Last administered on 12/17/16 22: 02; Admin Dose 40 MG; Start 12/15/16 at 21:00 Baclofen (Lioresal) 20 mg TID GTB Last administered on 12/18/16 12:39; Admin Dose 20 MG; Start 12/15/16 at 21:00 Clonidine (Catapres) 0.1 mg Q8 GTB Last administered on 12/18/16 13:31; Admin Dose 0.1 MG; Start 12/15/16 at 22:00 Diphenhydramine HCl (Benadryl Liquid Cup) 25 mg Q4H PRN GTB ITCHING; Start at 18:30 Gemfibrozil (Lopid) 600 mg BID GTB Last administered on 12/18/16 08:33; Admin Dose 600 MG; Start 12/15/16 at 21:00 Insulin Detemir (Levemir) 40 unit QAM SC Last administered on 12/18/16 08:35; Admin Dose 40 UNIT; Start 12/16/16 at 09:00 Metoprolol Tartrate (Lopressor) 25 mg BID GTB Last administered on 12/18/16 08 :33; Admin Dose 25 MG; Start 12/15/16 at 21:00 Simethicone (Mylicon) 160 mg DAILY PRN GTB DISTENSION/GAS/BLOATING; Start 12/15 at 18:30 Zinc Sulfate (Zinc Sulfate) 220 mg DAILY GTB Last administered on 12/18/16 08: 33; Admin Dose 220 MG; Start 12/16/16 at 09:00 Insulin Aspart (Novolog Insulin Pen) NOVOLOG *MILD* ALGORI... Q4 SC Last administered on 12/18/16 12:42; Admin Dose 1 UNIT; Start 12/15/16 at 21:00 Miscellaneous Information 1 ea NOTE XX ; Start 12/15/16 at 19:30 Glucose (Glutose) 15 gm Q15M PRN PO DECREASED GLUCOSE; Start 12/15/16 at 19:30 Glucose (Glutose) 22.5 gm Q15M PRN PO DECREASED GLUCOSE; Start 12/15/16 at 19: 30 Dextrose (D50w Syringe) 25 ml Q15M PRN IV DECREASED GLUCOSE Last administered on 12/17/16 18:18; Admin Dose 25 ML; Start 12/15/16 at 19:30 Dextrose (D50w Syringe) 50 ml Q15M PRN IV DECREASED GLUCOSE; Start 12/15/16 at 19:30 Glucagon (Glucagen) 1 mg Q15M PRN IM DECREASED GLUCOSE; Start 12/15/16 at 19:30 Glucose 15 gm 15 gm Q15M PRN BUCCAL DECREASED GLUCOSE; Start 12/15/16 at 19:30 Sodium Chloride (NS) 1,000 ml @ 100 mls/hr Q10H IV Last administered on 01:20; Admin Dose 100 MLS/HR; Start 12/16/16 at 07:00 Collagenase 1 applic 1 applic DAILY TOP Last administered on 12/18/16 08:41; Admin Dose 1 APPLIC; Start 12/16/16 at 15:00 Metronidazole 100 ml @ 100 mls/hr Q8 IVPB Last administered on 12/18/16 13:33 ; Admin Dose 100 MLS/HR; Start 12/17/16 at 14:00 Cefepime HCl (Maxipime 1gm/50 ml (Pmx)) 50 ml @ 100 mls/hr Q12 IVPB Last administered on 12/18/16 08:41; Admin Dose 100 MLS/HR; Start 12/17/16 at 14:00 Lactobacillus Acidoph/Bulgaricus (Floranex) 1 tab TID PO Last administered on 12:39; Admin Dose 1 TAB; Start 12/17/16 at 21:00 FLEX DENNISON NP Dec 18, 2016 15:55
[2016-12-18] MEDS ORDERED: ERTAPENEM SODIUM 1 GM in SOD CHLORIDE 0.9% 100 ML IVPB SCH (17:00)
--- NOTE | 2016-12-18 17:16 | PN ---
DATE: 12/18/2016 SUBJECTIVE: Patient Pollard stable this morning. VITAL SIGNS: Temperature 98, pulse is 80, blood pressure 117/71, O2 saturation 95% on FIO2 of 25%. NECK: Trach site clean and intact. CARDIAC: S1, S2, no added sounds or murmurs. CHEST: Diminished air entry bilaterally. ABDOMEN: Soft, nontender. No guarding or rebound. EXTREMITIES: No cyanosis, clubbing, or edema. NEUROLOGIC: Generalized weakness. LABORATORY DATA: White count 3.6, hemoglobin 8.6, platelets of 219. BUN 21, creatinine 0.65. IMPRESSION: 1. Vent dependent respiratory failure. 2. Resolving urinary tract infection. 3. History of encephalopathy. 4. Decubitus ulcers. PLAN: 1. Continue vent support. 2. Pulmonary toilet. 3. DVT and GI prophylaxis. 4. The patient likely stable to transfer back to group home facility. Dictated By: ULYSSES BENNETT/HERI Conf#: [id number] DID#: [id number]
--- NOTE | 2016-12-18 19:08 | DS ---
DATE OF ADMISSION: 12/15/2016 DATE OF DISCHARGE: 12/18/2016 DISCHARGE DIAGNOSES: 1. Sepsis secondary to urinary tract infection with Klebsiella Extended-Spectrum Beta-Lactamase and Clostridium difficile. Continue Flagyl and cefepime in the assisted facility. 2. History of chronic encephalopathy from advanced multiple sclerosis with functional quadriplegia. Continue PEG feeding and vent support. 3. Anemia of chronic disease with acute drop in hemoglobin and no identifiable source of blood loss . The patient is status post 2 units of packed red blood cells, now stable. 4. Diabetes. Continue home regimen. HOSPITAL COURSE: The patient is a 56-year-old female with a history of chronic encephalopathy from advanced multiple sclerosis with vegetative state, with PEG and trach. The patient has a history of sepsis from UTIs in the past. The patient presents once again with sepsis. The source is secondar y to Extended-Spectrum Beta-Lactamase Klebsiella and Escherichia coli. The patient also has a Monik stridium difficile in the stool. The patient was started on treatment. She was seen by ID during t he hospitalization as well as pulmonology. She was felt to be stable for discharge per both pulmonol ogy and ID with the plan to continue antibiotics at the assisted facility. On the day of dis charge, the patient's vitals, labs, physical exam were stable and no other acute issues. CONDITION ON DISCHARGE: Stable. DISPOSITION: To a assisted facility. MEDICATIONS: The patient will continue usual home medications. She will continue cefepime at the c urrent dose for 10 days, and Flagyl 500 mg IV q.8 hours for 2 weeks. [facility]. FOLLOWUP: The patient is to follow up with physicians at assisted facility. Greater than 30 minutes was spent coordinating discharge of patient. Dictated By: LATA SULLIVAN MD BS/NTS Conf#: [id number] DID#: [id number]
== END 2016-12-18 21:10 | DRG 871 ==
LOC: E/R 09:11 → TEL 12:23
PROVIDERS: ADMIT Family Medicine; ATTEND Family Medicine
PROC: 5A1945Z Respiratory Ventilation, 24-96 Consecutive Hours (ICD-10-PCS; principal; 2016-12-15)
PROC: 30233N1 Transfusion of Nonautologous Red Blood Cells into Peripheral Vein, Percutaneous Approach (ICD-10-PCS; 2016-12-16)
PROC: 30233N1 Transfusion of Nonautologous Red Blood Cells into Peripheral Vein, Percutaneous Approach (ICD-10-PCS; 2016-12-17)
DX: A41.9 Sepsis, unspecified organism (principal); G82.50 Quadriplegia, unspecified; G93.40 Encephalopathy, unspecified; N17.9 Acute kidney failure, unspecified; J96.10 Chronic respiratory failure, unspecified whether with hypoxia or hypercapnia; Z99.11 Dependence on respirator [ventilator] status; L89.153 Pressure ulcer of sacral region, stage 3; N39.0 Urinary tract infection, site not specified; A04.7 Enterocolitis due to Clostridium difficile; L89.320 Pressure ulcer of left buttock, unstageable; L89.310 Pressure ulcer of right buttock, unstageable; Z93.0 Tracheostomy status; G35 Multiple sclerosis; Z93.1 Gastrostomy status; E11.65 Type 2 diabetes mellitus with hyperglycemia; E78.5 Hyperlipidemia, unspecified; I10 Essential (primary) hypertension; B96.1 Klebsiella pneumoniae [K. pneumoniae] as the cause of diseases classified elsewhere; Z16.35 Resistance to multiple antimicrobial drugs; D63.8 Anemia in other chronic diseases classified elsewhere; I69.365 Other paralytic syndrome following cerebral infarction, bilateral; Z79.4 Long term (current) use of insulin; Z88.0 Allergy status to penicillin
CPT/HCPCS: 36415; 36430; 36600; 71010; 74176; 80048; 80053; 81001; 81003; 82803; 82962; 83605; 83735; 84484; 85014; 85018; 85025; 85610; 85730; 86850; 86870; 86900; 86901; 86902; 86920; 87040; 87045; 87075; 87081; 87086; 89220; 93005; 94002; 94003; 96372; 96374; 96375; J0692; J0743; J1335; J1644; J1815; J7030; J7040; P9016

== ENCOUNTER 2017-05-02 10:16 | Inpatient (IN) | payer OTHER ==
[2017-05-02] VITALS (8 sets, daily range): BP systolic 96–132; BP diastolic 64–82; PULSE 75–87; RESP 12–18; TEMP 98.9; Ht 157.5 cm; Wt 58.0 kg
[~2017-05-02] VITALS: Ht 157.5 cm; Wt 58.0 kg
[2017-05-02 11:24] LABS: ABNORMAL IP MESSAGE 1; BASOPHILS % 0.1 % (0.0-2.0); EOSINOPHILS # 0.3 10^3/ul (0.0-0.5); HEMATOCRIT 25.8 % (37.0-47.0); HEMOGLOBIN 7.4 g/dl (12.0-16.0); LYMPHOCYTES # 0.9 10^3/ul (0.8-2.9); LYMPHOCYTES % 12.4 % (15.0-51.0); MEAN CORPUSCULAR HEMOGLOBIN 24.7 pg (29.0-33.0); MEAN CORPUSCULAR HGB CONC 28.7 g/dl (32.0-37.0); MONOCYTE # 0.4 10^3/ul (0.3-0.9); NEUTROPHIL # 5.3 10^3/ul (1.6-7.5); NEUTROPHILS % 75.8 % (39.0-77.0); PLATELET COUNT 321 10^3/UL (140-415); RED CELL DISTRIBUTION WIDTH 19.9 % (11.5-14.5)
[2017-05-02 11:39] LABS: POSITIVE DIFF @See below
[2017-05-02 11:45] LABS: INR 0.99; PROTIME 13.1 Sec (12.2-14.2)
[2017-05-02 11:46] LABS: PARTIAL THROMBOPLASTIN TIME 21.9 Sec (25.0-35.0)
[2017-05-02 11:48] LABS: ALBUMIN/GLOBULIN RATIO 0.64; BILIRUBIN,INDIRECT 0.1 mg/dl (0-1.1); BILIRUBIN,TOTAL 0.1 mg/dl (0.2-1.3); CALCIUM 10.6 mg/dl (8.4-10.2); CREATININE 1.12 mg/dl (0.44-1.00); TOTAL PROTEIN 10.2 g/dl (6.1-8.1)
--- NOTE | 2017-05-02 11:56 | RADRPT ---
PROCEDURE: XR Chest. CLINICAL INDICATION: Upper GI bleed. Dyspnea. TECHNIQUE: Single frontal chest x-ray. COMPARISON: 12/15/2016 FINDINGS: The lungs are clear of acute infiltrates, edema, effusions, or masses. There is a tracheostomy tube in place.. The cardiomediastinal silhouette is unremarkable. The osseous structures are intact. IMPRESSION: No acute cardiopulmonary disease. Tracheostomy tube in place. RPTAT: GG .Chucky Cardoza MD, MD Date Time Electronically viewed and signed by .Chucky Cardoza MD, on 05/02/2017 11:56 .L/
--- NOTE | 2017-05-02 12:12 | ERA ---
ER Documentation Chief Complaint Date/Time DATE: 05/02/17 TIME: 12:12 Chief Complaint sent from facility for blood transfusion HPI Patient is unable to provide any history due to her clinical condition hence history is obtained entirely from discussion with transferring paramedics, review of previous medical records and care home facility records. 56-year-old female with a history of chronic hypoxic respiratory failure status post tracheostomy, vent dependent, multiple sclerosis, no functional quadriplegia, anoxic encephalopathy, anemia, diabetes mellitus type 2, nontoxic megacolon, hypertension, dyslipidemia, chronic kidney disease and sepsis sent to the ED by ambulance from [facility] for evaluation of worsening anemia. Despite Epogen, Venofer and iron hemoglobin has been dropping from 10 to 7.8. No vomiting or diarrhea. No hematemesis or melanotic stools. No change in mental status. No fevers. ROS All systems reviewed and are negative except as per history of present illness. Medications Home Meds Reported Medications Tramadol Hcl* (Ultram*) 50 Mg Tablet, 100 MG GTB DAILY, TAB 05/02/17 Omeprazole* (Omeprazole*) 40 Mg Capsule.dr, 40 MG GTB BID, #30 CAP 05/02/17 Insulin Aspart* (Novolog Insulin Pen*) 100 Unit/Ml Soln, 0 SC .SLIDING SCALE AC , EA 05/02/17 Multivitamins* (Theragran*) 1 Tab Tab, 1 TAB GTB DAILY, TAB 05/02/17 Metoclopramide* (Reglan*) 10 Mg Tablet, 10 MG GTB BID, TAB 05/02/17 Magnesium Oxide* (Magnesium Oxide*) 400 Mg Tablet, 800 MG GTB DAILY, TAB 05/02/17 Insulin Detemir (Levemir) 100 Unit/1 Ml Vial, 12 UNIT SC QHS, VIAL 05/02/17 Insulin Lispro (Humalog) 100 Unit/1 Ml Cartridge, 15 UNIT SQ Q6 05/02/17 Insulin Detemir (Levemir) 100 Unit/1 Ml Vial, 26 UNIT SC DAILY, VIAL 05/02/17 Heparin Sod (Porcine) (Heparin) 1,000 Unit/Ml Soln, 5000 UNIT IJ Q12 05/02/17 Ferrous Sulfate (Ferrous Sulfate) 220 Mg/5 Ml Solution, 330 MG PO BID 05/02/17 Epoetin Andrey (Epogen) 10,000 Units/Ml Soln, 44717 UNITS SC MONWEDFRI, VIAL 05/02/17 Sucralfate* (Carafate*) 1 Gm Tab, 1 GM GTB DAILY, TAB 05/02/17 Ascorbic Acid* (Ascorbic Acid*) 500 Mg/5 Ml Syrup, 500 MG GTB Q8, #150 ML 05/02/17 Arginine/Ascorbate Sod/Hannah AC (Arginaid Powder) 1 Each Powd.pack, 1 EACH GTB BID 05/02/17 Baclofen* (Baclofen*) 20 Mg Tablet, 20 MG GTB TID, TAB 10/14/16 Acetaminophen* (Acetaminophen*) 650 Mg Tablet, 650 MG GTB Q4 Y for ELEVATED TEMPERATURE, #30 TAB OR FEVER 10/14/16 Discontinued Reported Medications Simethicone* (Anti-Gas/80*) 80 Mg Tab.chew, 160 MG GTB DAILY Y for DISTENSION/ GAS/BLOATING, TAB.CHEW 11/15/16 Metoprolol Tartrate* (Lopressor*) 25 Mg Tab, 25 MG GTB BID, #60 TAB HOLD IF SBP<110; HR<60 10/14/16 Gemfibrozil* (Gemfibrozil*) 600 Mg Tablet, 600 MG GTB BID, TAB 10/14/16 Clonidine Hcl* (Clonidine Hcl*) 0.1 Mg Tab, 0.1 MG GTB Q8, TAB IF SBP>160 10/14/16 Atorvastatin* (Atorvastatin*) 40 Mg Tablet, 40 MG GTB QHS, #30 TAB 10/14/16 Zinc Sulfate* (Zinc Sulfate*) 220 Mg Tablet, 220 MG GTB DAILY, TAB 10/14/16 Insulin Detemir (Levemir Flextouch) 100 Unit/1 Ml Insuln.pen, 40 UNIT SQ QAM 10/14/16 Diphenhydramine Hcl* (Diphenhydramine Hcl*) 25 Mg Capsule, 25 MG GTB Q4 Y for ITCHING, CAP 10/14/16 Pantoprazole* (Pantoprazole*) 40 Mg Tablet.dr, 40 MG GTB AC BREAKFAST, TAB 10/14/16 Allergies Allergies: Coded Allergies: Penicillins (Verified Allergy, Severe, 12/15/16) Cephalosporins (Verified Allergy, Unknown, FLUSHING, TACHYCARDIA, 12/15/16) levofloxacin (Verified Allergy, Unknown, 12/15/16) vancomycin (Verified Allergy, Unknown, 12/15/16) PMhx/Soc Reviewed in chart. As per HPI. History of Surgery: Yes (trach; gtube; ) Hx Neurological Disorder: No Hx Respiratory Disorders: Yes ( Respiratory failure , Trach to vent) Hx Cardiac Disorders: Yes (Dyslipidimia) Hx Psychiatric Problems: Yes Hx Alcohol Use: No Hx Substance Use: No Hx Tobacco Use: No Smoking Status: Never smoker FmHx Unobtainable due to the patient's clinical condition Physical Exam Vitals Vital Signs Date Time Temp Pulse Resp B/P Pulse Ox O2 Delivery O2 Flow Rate FiO2 05/02/17 14:30 89 20 111/75 100 05/02/17 13:00 90 12 100 35 05/02/17 12:30 98.9 90 20 96/73 100 05/02/17 11:49 99 20 120/84 97 05/02/17 11:19 94 20 92/55 97 05/02/17 10:30 85 12 100 50 05/02/17 10:27 99.8 78 20 92/55 97 Physical Exam Const: Chronically ill-appearing, eyes open but unresponsive Head: Atraumatic Eyes: Normal Conjunctiva ENT: Normal External Ears, Nose and Mouth. Mucous membranes are dry Neck: Full range of motion. Tracheostomy site clean without erythema, induration or drainage Resp: Breath sounds diminished bilaterally with assisted ventilation. No wheezing Cardio: Regular rate and rhythm, no murmurs Abd: Soft, non tender, non distended. Normal bowel sounds. G-tube site without erythema, induration or drainage. Rectal examination: Brown stool. Skin: No petechiae or rashes. Decubiti. Back: No midline or flank tenderness Ext: No cyanosis, or edema. There are muscle atrophy. Contractures Neur: Awake and alert. Functional quadriplegia Result Diagram: 05/02/17 1100 05/02/17 1100 Results 24 hrs Laboratory Tests Test 05/02/17 11:00 05/02/17 11:10 05/02/17 14:46 White Blood Count 7.010^3/ul Red Blood Count 3.0010^6/ul Hemoglobin 7.4g/dl Hematocrit 25.8% Mean Corpuscular Volume 86.0fl Mean Corpuscular Hemoglobin 24.7pg Mean Corpuscular Hemoglobin Concent 28.7g/dl Red Cell Distribution Width 19.9% Platelet Count 44154^3/UL Mean Platelet Volume 11.0fl Neutrophils % 75.8% Lymphocytes % 12.4% Monocytes % 6.0% Eosinophils % 4.0% Basophils % 0.1% Nucleated Red Blood Cells % 0.0/100WBC Neutrophils # 5.310^3/ul Lymphocytes # 0.910^3/ul Monocytes # 0.410^3/ul Eosinophils # 0.310^3/ul Basophils # 0.010^3/ul Nucleated Red Blood Cells # 0.010^3/ul Prothrombin Time 13.1Sec Prothrombin Time Ratio 1.0 INR International Normalized Ratio 0.99 Activated Partial Thromboplast Time 21.9Sec Sodium Level 146mmol/L Potassium Level 5.0mmol/L Chloride Level 100mmol/L Carbon Dioxide Level 26mmol/L Anion Gap 25 Blood Urea Nitrogen 64mg/dl Creatinine 1.12mg/dl Glucose Level 375mg/dl Calcium Level 10.6mg/dl Total Bilirubin 0.1mg/dl Direct Bilirubin 0.00mg/dl Indirect Bilirubin 0.1mg/dl Aspartate Amino Transf (AST/SGOT) 46IU/L Alanine Aminotransferase (ALT/SGPT) 32IU/L Alkaline Phosphatase 243IU/L Total Protein 10.2g/dl Albumin 4.0g/dl Globulin 6.20g/dl Albumin/Globulin Ratio 0.64 Stool Occult Blood NEGATIVE Urine Color CONNIE Urine Clarity TURBID Urine pH 8.0 Urine Specific [place] 1.016 Urine Ketones NEGATIVEmg/dL Urine Nitrite NEGATIVEmg/dL Urine Bilirubin NEGATIVEmg/dL Urine Urobilinogen NEGATIVEmg/dL Urine Leukocyte Esterase 3+Gilberto/ul Urine Microscopic RBC 54/HPF Urine Microscopic WBC > 182/HPF Urine Bacteria MODERATE/HPF Urine Hemoglobin 1+mg/dL Urine Glucose 2+mg/dL Urine Total Protein 2+mg/dl Current Medications Medications (Trade) Dose Ordered Sig/Charlie Route PRN Reason Start Time Stop Time Status Last Admin Dose Admin Sodium Chloride 100 ml @ 100 mls/hr Q1H STAT IV 05/02/17 13:02 05/02/17 13:04 DC Sodium Chloride (NS) 500 ml @ 500 mls/hr Q1H STAT IV 05/02/17 13:02 05/02/17 14:02 DC 05/02/17 13:34 Ondansetron HCl (Zofran Inj) 4 mg ER BRIDGE PRN IV NAUSEA AND/OR VOMITING 05/02/17 13:30 05/03/17 13:29 Acetaminophen (Tylenol Tab) 650 mg ER BRIDGE PRN PO MILD PAIN/FEVER 05/02/17 13:30 05/03/17 13:29 IV Flush (NS 3 ml) 3 ml PER PROTOCOL IV 05/02/17 16:30 Ondansetron HCl (Zofran Inj) 4 mg Q6H PRN IV NAUSEA AND/OR VOMITING 05/02/17 16:30 Acetaminophen (Tylenol Tab) 650 mg Q6H PRN PO PAIN LEVEL 1-3 OR FEVER 05/02/17 16:30 Acetaminophen/ Hydrocodone Bitart ([place] (5/325)) 1 tab Q6H PRN PO MODERATE PAIN LEVEL 4-6 05/02/17 16:30 Morphine Sulfate (morphine) 2 mg Q4H PRN IV SEVERE PAIN LEVEL 7-10 05/02/17 16:30 Docusate Sodium (Colace) 100 mg Q12H PRN PO CONSTIPATION 05/02/17 16:30 Magnesium Hydroxide (Milk Of Mag) 30 ml DAILY PRN PO CONSTIPATION 05/02/17 16:30 Sodium Biphosphate/ Sodium Phosphate 133 ml 133 ml DAILY PRN MA CONSTIPATION 05/02/17 16:30 Sodium Chloride (1/2 NS) 1,000 ml @ 75 mls/hr [id number] IV 05/02/17 16:02 Lorazepam (Ativan) 0.5 mg Q6H PRN IV ANXIETY 05/02/17 16:30 Albuterol/ Ipratropium (Duoneb) 3 ml Q4H RESP THERAPY PRN HHN SHORTNESS OF BREATH 05/02/17 16:30 Hydralazine HCl (Apresoline) 10 mg Q6H PRN IV ELEVATED BLOOD PRESSURE 05/02/17 16:30 Nitroglycerin (Nitroglycerin (Sl Tab) 0.4 Mg) 1 tab Q5M PRN SL ANGINA 05/02/17 16:30 Ascorbic Acid (Vitamin C) 500 mg Q8 GTB 05/02/17 22:00 Baclofen (Lioresal) 20 mg TID GTB 05/02/17 21:00 Epoetin Andrey (Epogen (Esrd)) 10,000 units MoWeFr@17 NH 05/03/17 17:00 Magnesium Oxide (Mag-Ox 400) 800 mg DAILY GTB 05/03/17 09:00 Metoclopramide HCl (Reglan) 10 mg BID GTB 05/02/17 21:00 Multivitamins Therapeutic (Theragran) 1 tab DAILY GTB 05/03/17 09:00 Sucralfate (Carafate) 1 gm DAILY GTB 05/03/17 09:00 Tramadol HCl (Ultram) 100 mg DAILY GTB 05/03/17 09:00 Miscellaneous Information 1 each BID GTB 05/02/17 21:00 UNV Ferrous Sulfate (Ferrous Sulfate (Ec)) 325 mg BID PO 05/02/17 21:00 Insulin Detemir (Levemir) 12 unit QHS SC 05/02/17 21:00 Insulin Detemir (Levemir) 26 unit DAILY SC 05/03/17 09:00 Insulin Aspart (Novolog Insulin Pen) 15 unit Q6 SC 05/02/17 18:00 Lansoprazole (Prevacid) 30 mg BID@06,18 GTB 05/02/17 18:00 Miscellaneous Information 1 ea NOTE XX 05/02/17 16:30 Glucose (Glutose) 15 gm Q15M PRN PO DECREASED GLUCOSE 05/02/17 16:30 Glucose (Glutose) 22.5 gm Q15M PRN PO DECREASED GLUCOSE 05/02/17 16:30 Dextrose (D50w Syringe) 25 ml Q15M PRN IV DECREASED GLUCOSE 05/02/17 16:30 Dextrose (D50w Syringe) 50 ml Q15M PRN IV DECREASED GLUCOSE 05/02/17 16:30 Glucagon (Glucagen) 1 mg Q15M PRN IM DECREASED GLUCOSE 05/02/17 16:30 Glucose (Glutose) 15 gm Q15M PRN BUCCAL DECREASED GLUCOSE 05/02/17 16:30 Epoetin Andrey (Epogen (Esrd)) 2,000 units MoWeFr@17 NH 05/03/17 17:00 Epoetin Andrey (Epogen (Esrd)) 3,000 units MoWeFr@17 NH 05/03/17 17:00 Miscellaneous Information (*Order Clarification Bulletin) Arginine/ Ascorbate Sod/ Hannah AC (Argin... Q8H XX 05/02/17 17:00 Miscellaneous Information (* Miscellaneous Pharmacy Order) Discontinue current oral sulfonylur... ONCE ONCE XX 05/02/17 17:00 05/02/17 17:01 Diagnostic Test (Pha) (Accu-Chek) 1 ea 02 XX 05/03/17 02:00 UNV Miscellaneous Information (* Miscellaneous Pharmacy Order) HYPOGLYCEMIA PROTOCOL w... ONCE ONCE XX 05/02/17 17:00 05/02/17 17:01 Insulin Aspart (Novolog Insulin Pen) NOVOLOG *MILD* ALGORI... Q4 SC 05/02/17 17:00 Miscellaneous Information Discontinue all previ... ONCE ONCE XX 05/02/17 17:00 05/02/17 17:01 Sodium Chloride (NS) 250 ml @ 0 mls/hr Q0M ONCE IV* 05/02/17 16:50 05/02/17 16:55 DC Diagnostic Test (Pha) (Accu-Chek) 1 ea Q6H XX 05/02/17 17:30 05/02/17 17:30 DC Procedures/MDM DOCUMENTS REVIEWED: ED nurse, prior ED, prior records, care home facility record MEDICAL DECISION MAKIN-year-old female with a history of chronic hypoxic respiratory failure status post tracheostomy, vent dependent, multiple sclerosis , no functional quadriplegia, anoxic encephalopathy, anemia, diabetes mellitus type 2, nontoxic megacolon, hypertension, dyslipidemia, chronic kidney disease and sepsis sent to the ED by ambulance from [facility] for evaluation of worsening anemia. Hemoglobin dropping from 10-7.4 despite Epogen. Stool is heme-negative GI source is unlikely. No signs of acute bleeding. Anemia likely secondary to chronic disease. No indication for emergent transfusion. Acute on chronic renal failure with worsening BUN and creatinine. Hyperglycemia but no acidosis or signs of DKA treated with intravenous hydration. Trach dependent chronic respiratory failure. Patient will be admitted to telemetry for further evaluation and management CALLS/CONSULTS: Time 13:00, Dr. Jones, discussed with his nurse practitioner. Recommends patient be admitted for workup.. CALLS/CONSULTS: Time 13:20, Dr. Prater, Recommends admission to telemetry. PATIENT CARE TRANSITIONED:Time 13:20, Dr. Prater. Departure Diagnosis: Primary Impression: Severe anemia Additional Impressions: Chronic respiratory failure Qualified Code: J96.10 - Chronic respiratory failure, unspecified whether with hypoxia or hypercapnia Tracheostomy dependent Quadriplegia Diabetes mellitus out of control Qualified Code: E11.65 - Uncontrolled diabetes mellitus type 2 without complications, unspecified watermaster insulin use status Dehydration Acute on chronic renal failure Multiple sclerosis Condition: Serious JIGAR GUTIERREZ MD May 02, 2017 12:12
[2017-05-02] MEDS ORDERED: SOD CHLORIDE 0.9% 100 ML IV STA (13:02)
[2017-05-02] MEDS ORDERED: SOD CHLORIDE 0.9% 500 ML IV STA (13:02)
[2017-05-02] MEDS ORDERED: ARGI1POW19 GTB (13:05)
[2017-05-02] MEDS ORDERED: ASCO500S2 GTB (13:06)
[2017-05-02] MEDS ORDERED: SUCR1TAB56 GTB (13:07)
[2017-05-02] MEDS ORDERED: EPO10ESRD SC (13:08)
[2017-05-02] MEDS ORDERED: FERR220S2 PO (13:09)
[2017-05-02] MEDS ORDERED: LEVEM SC ×2 (13:10→13:15)
[2017-05-02] MEDS ORDERED: HEP30MU30 IJ (13:10)
[2017-05-02] MEDS ORDERED: INSU100C SQ (13:15)
[2017-05-02] MEDS ORDERED: MAGN400T28 GTB (13:18)
[2017-05-02] MEDS ORDERED: METO10TA92 GTB (13:20)
[2017-05-02] MEDS ORDERED: MULTI GTB (13:21)
[2017-05-02] MEDS ORDERED: NOVO3I SC (13:22)
[2017-05-02] MEDS ORDERED: OMEP40CA6 GTB (13:26)
[2017-05-02] MEDS ORDERED: TRAM-40 GTB (13:28)
[2017-05-02] MEDS ORDERED: ONDANSETRON 4 MG INJ IV PRN ×2 (13:30→16:30)
[2017-05-02] MEDS ORDERED: ACETAMINOPHEN 325 MG TAB PO PRN (13:30)
[2017-05-02 15:27] LABS: ADD UMIC YES; UR ASCORBIC ACID 40 mg/dL (NEGATIVE); UR BACTERIA MODERATE /HPF (NONE SEEN); UR BILIRUBIN (Dip) NEGATIVE (NEGATIVE); UR BLOOD (Dip) 1+ mg/dL (NEGATIVE); UR CLARITY TURBID (CLEAR); UR COLOR AMBER (YELLOW); UR GLUCOSE (Dip) 2+ mg/dL (NEGATIVE); UR KETONES (Dip) NEGATIVE (NEGATIVE); UR LEUKOCYTE ESTERASE (Dip) 3+ Leu/ul (NEGATIVE); UR NITRITE (Dip) NEGATIVE (NEGATIVE); UR RBC 54 /HPF (0-5); UR SPECIFIC GRAVITY (Dip) 1.016 (1.003-1.030); UR TOTAL PROTEIN (Dip) 2+ mg/dl (NEGATIVE); UR UROBILINOGEN (Dip) NEGATIVE (NEGATIVE); UR WBC CLUMPS MANY /HPF (NONE SEEN)
[2017-05-02] MEDS ORDERED: GLUCOSE GEL 15 GRAM TUBE PO PRN ×2 (16:30)
[2017-05-02] MEDS ORDERED: GLUCAGON 1 MG INJ IM PRN (16:30)
[2017-05-02] MEDS ORDERED: DOCUSATE SODIUM 100 MG CAP PO PRN (16:30)
[2017-05-02] MEDS ORDERED: morphine 4 MG/ML VIAL IV PRN (16:30)
[2017-05-02] MEDS ORDERED: hydrALAzine 20 MG INJ IV PRN (16:30)
[2017-05-02] MEDS ORDERED: NITROGLYCERIN (SL) 0.4 MG TAB SL PRN (16:30)
[2017-05-02] MEDS ORDERED: HYDROCODONE/APAP (5/325) TAB PO PRN (16:30)
[2017-05-02] MEDS ORDERED: GLUCOSE GEL 15 GRAM TUBE BUCCAL PRN (16:30)
[2017-05-02] MEDS ORDERED: NACL 0.9% 3 ML SYG IV SCH (16:30)
[2017-05-02] MEDS ORDERED: MAGNESIUM HYDROXIDE 30ML CUP PO PRN (16:30)
[2017-05-02] MEDS ORDERED: DEXTROSE 50% 50 ML SYRINGE IV PRN ×2 (16:30)
[2017-05-02] MEDS ORDERED: NA PHOSPHATE/BIPHOS 133 ML ENEMA PR PRN (16:30)
[2017-05-02] MEDS ORDERED: LORAZEPAM 2 MG INJ IV PRN (16:30)
[2017-05-02] MEDS ORDERED: ALBUTEROL/IPRATROPIUM (NEB) 3 ML AMP HHN PRN (16:30)
--- NOTE | 2017-05-02 16:49 | HP ---
Date/Time of Note Date/Time of Note DATE: 05/02/17 TIME: 16:43 Assessment/Plan VTE Prophylaxis VTE Prophylaxis Intervention: SCD's Assessment/Plan Chief Complaint/Hosp Course Assessment and plan:56-year-old female with a history of chronic hypoxic respiratory failure status post tracheostomy, vent dependent, prior CVA, multiple sclerosis, no functional quadriplegia, anoxic encephalopathy, anemia, diabetes mellitus type 2, nontoxic megacolon, hypertension, dyslipidemia, chronic kidney disease and sepsis sent to the ED by ambulance from [facility] for evaluation of worsening anemia. 1. Anemia: Admit patient to telemetry floor, we will check occult test. Also order for 1 unit PRBC transfusion. Continue Epogen 2. Chronic hypoxic respiratory failure: Continue oxygen supplementation via tracheostomy, consider pulmonary consult for vent management 3. Multiple sclerosis: Monitor for now 4. History of anoxic encephalopathy: Monitor for now 5. Type 2 diabetes: Check A1c, also check TSH and lipid panel. Sliding scale insulin and Levemir 6. Hypertension: Blood pressure stable, continue hydralazine IV as needed systolic greater than 160 7. Chronic kidney disease: Monitor ins and outs and daily BUN/creatinine levels 8. Prior history of UTI: Monitor for now, no signs of any fevers 9. History of decubitus ulcers: Wound care nurse. 10. GI prophylaxis: Prevacid Problems: HPI/ROS Admit Date/Time Admit Date/Time ROS 56-year-old female with a history of chronic hypoxic respiratory failure status post tracheostomy, vent dependent, prior CVA, multiple sclerosis, no functional quadriplegia, anoxic encephalopathy, anemia, diabetes mellitus type 2, nontoxic megacolon, hypertension, dyslipidemia, chronic kidney disease and sepsis sent to the ED by ambulance from [facility] for evaluation of worsening anemia. Most of the information is obtained from the ER documentation as the patient is unable to provide full history given her anoxic encephalopathy. Thus full review of systems could not be obtained at this time. Apparently while in the [facility], despite getting Epogen, Venofer and iron hemoglobin has been dropping from a high of 10 now down to 7.8. Today in the emergency room hemoglobin was 7.4 there were no signs of any hematemesis or melanotic stools. No change in mental status. No fevers. PMH/Family/Social Past Surgical History Past Surgical Hx: other (G-tube, trach) Social History Alcohol Use: none Smoking Status: Never smoker Drug Use: none Exam/Review of Systems Vital Signs Vitals Vital Signs Date Time Temp Pulse Resp B/P Pulse Ox O2 Delivery O2 Flow Rate FiO2 05/02/17 14:30 89 20 111/75 100 05/02/17 13:00 35 05/02/17 12:30 98.9 Exam Exam Const: Chronically ill-appearing, eyes open but unresponsive Head: Atraumatic Eyes: Normal Conjunctiva ENT: Normal External Ears, Nose and Mouth. Mucous membranes are dry Neck: Full range of motion. Tracheostomy site clean without erythema, induration or drainage Resp: Lightly diminished bilaterally with assisted ventilation. No wheezing Cardio: Regular rate and rhythm, no murmurs Abd: Soft, non tender, non distended. Normal bowel sounds. G-tube site without erythema, induration or drainage. Rectal examination: Brown stool. Skin: No petechiae or rashes. Decubiti. Back: No midline or flank tenderness Ext: No cyanosis, or edema. Some muscle atrophy. Contractures Neur: Awake and alert. Functional quadriplegia Labs Result Diagram: 05/02/17 1100 05/02/17 1100 Medications Medications Current Medications Ondansetron HCl (Zofran Inj) 4 mg Q6H PRN IV NAUSEA AND/OR VOMITING; Start 05/02 at 16:30 Acetaminophen (Tylenol Tab) 650 mg Q6H PRN PO PAIN LEVEL 1-3 OR FEVER; Start at 16:30 Acetaminophen/ Hydrocodone Bitart ([place] (5/325)) 1 tab Q6H PRN PO MODERATE PAIN LEVEL 4-6; Start 05/02/17 at 16:30 Morphine Sulfate (morphine) 2 mg Q4H PRN IV SEVERE PAIN LEVEL 7-10; Start at 16:30 Docusate Sodium (Colace) 100 mg Q12H PRN PO CONSTIPATION; Start 05/02/17 at 16: 30 Magnesium Hydroxide (Milk Of Mag) 30 ml DAILY PRN PO CONSTIPATION; Start at 16:30 Sodium Biphosphate/ Sodium Phosphate 133 ml 133 ml DAILY PRN [place] CONSTIPATION; Start 05/02/17 at 16:30 Sodium Chloride (1/2 NS) 1,000 ml @ 75 mls/hr [id number] IV ; Start 05/02/17 at 16: 02 Lorazepam (Ativan) 0.5 mg Q6H PRN IV ANXIETY; Start 05/02/17 at 16:30 Hydralazine HCl (Apresoline) 10 mg Q6H PRN IV ELEVATED BLOOD PRESSURE; Start at 16:30 Nitroglycerin (Nitroglycerin (Sl Tab) 0.4 Mg) 1 tab Q5M PRN SL ANGINA; Start at 16:30 Ascorbic Acid (Vitamin C) 500 mg Q8 GTB ; Start 05/02/17 at 22:00 Baclofen (Lioresal) 20 mg TID GTB ; Start 05/02/17 at 21:00 Epoetin Andrey (Epogen (Esrd)) 10,000 units MoWeFr@17 SC ; Start 05/03/17 at 17:00 Magnesium Oxide (Mag-Ox 400) 800 mg DAILY GTB ; Start 05/03/17 at 09:00 Metoclopramide HCl (Reglan) 10 mg BID GTB ; Start 05/02/17 at 21:00 Multivitamins Therapeutic (Theragran) 1 tab DAILY GTB ; Start 05/03/17 at 09:00 Sucralfate (Carafate) 1 gm DAILY GTB ; Start 05/03/17 at 09:00 Tramadol HCl (Ultram) 100 mg DAILY GTB ; Start 05/03/17 at 09:00 Miscellaneous Information 1 each BID GTB ; Start 05/02/17 at 21:00; Status UNV Ferrous Sulfate (Ferrous Sulfate (Ec)) 325 mg BID PO ; Start 05/02/17 at 21:00 Insulin Detemir (Levemir) 12 unit QHS SC ; Start 05/02/17 at 21:00 Insulin Detemir (Levemir) 26 unit DAILY SC ; Start 05/03/17 at 09:00 Miscellaneous Information 15 unit Q6 SQ ; Start 05/02/17 at 18:00; Status UNV Lansoprazole (Prevacid) 30 mg BID@06,18 GTB ; Start 05/02/17 at 18:00 Miscellaneous Information 1 ea NOTE XX ; Start 05/02/17 at 16:30 Glucose (Glutose) 15 gm Q15M PRN PO DECREASED GLUCOSE; Start 05/02/17 at 16:30 Glucose (Glutose) 22.5 gm Q15M PRN PO DECREASED GLUCOSE; Start 05/02/17 at 16:30 Dextrose (D50w Syringe) 25 ml Q15M PRN IV DECREASED GLUCOSE; Start 05/02/17 at 16:30 Dextrose (D50w Syringe) 50 ml Q15M PRN IV DECREASED GLUCOSE; Start 05/02/17 at 16:30 Glucagon (Glucagen) 1 mg Q15M PRN IM DECREASED GLUCOSE; Start 05/02/17 at 16:30 Glucose (Glutose) 15 gm Q15M PRN BUCCAL DECREASED GLUCOSE; Start 05/02/17 at 16: 30 Epoetin Andrey (Epogen (Esrd)) 2,000 units MoWeFr@17 SC ; Start 05/03/17 at 17:00 Epoetin Andrey (Epogen (Esrd)) 3,000 units MoWeFr@17 SC ; Start 05/03/17 at 17:00 Miscellaneous Information (*Order Clarification Bulletin) Arginine/ Ascorbate Sod/ Hannah AC (Argin... Q8H XX ; Start 05/02/17 at 17:00 ASHLEY EMERY May 02, 2017 16:49
[2017-05-02] MEDS ORDERED: SOD CHLORIDE 0.9% 250 ML IV* ONE (16:50)
[2017-05-02] MEDS ORDERED: Discontinue current oral sulfonylureas (glyburide, glipizide, and/or glimepiride) prior to XX ONE (17:00)
[2017-05-02] MEDS ORDERED: [UNRECOGNIZED DRUG - REMARK] XX SCH (17:00)
[2017-05-02] MEDS ORDERED: HYPOGLYCEMIA PROTOCOL when Glucose is <70 mg/dL or symptomatic <90 mg/dL. XX ONE (17:00)
[2017-05-02] MEDS ORDERED: ACCU-CHEK XX SCH (17:30)
[2017-05-02] MEDS: SOD CHLORIDE 0.45% 1,000 ML IV SCH (18:51)
[2017-05-02] MEDS: LANSOPRAZOLE 30 MG CAP GTB SCH (19:03)
[2017-05-02 19:29] LABS: INR 0.99; PROTIME 13.1 Sec (12.2-14.2)
[2017-05-02 19:30] LABS: PARTIAL THROMBOPLASTIN TIME 34.4 Sec (25.0-35.0)
[2017-05-02] MEDS: INSULIN ASPART [NOVOLOG] 3 ML PEN SC SCH ×3 (20:45→21:51)
[2017-05-02] MEDS: BACLOFEN 10 MG TAB GTB SCH (20:48)
[2017-05-02] MEDS: FERROUS SULFATE (EC) 325 MG TAB PO SCH (20:48)
[2017-05-02] MEDS: METOCLOPRAMIDE 10 MG TAB GTB SCH (20:48)
[2017-05-02] MEDS ORDERED: NON-FORMULARY/PATIENT OWN MED (Arginine/Ascorbate Sod/Vite AC (Arginaid Powder) 1 EACH) GTB SCH (21:00)
[2017-05-02] MEDS: INSULIN DETEMIR [LEVEMIR] 3ML CART SC SCH (21:52)
[2017-05-02] MEDS: ASCORBIC ACID 500 MG TAB GTB SCH (22:10)
[2017-05-02] MEDS ORDERED: PENDING SANTYL ORDER FOR WOUND CARE XX PRN (22:30)
[2017-05-03] VITALS (24 sets, daily range): BP systolic 90–118; BP diastolic 52–72; PULSE 81–132; RESP 12–20
[2017-05-03] MEDS: INSULIN ASPART [NOVOLOG] 3 ML PEN SC SCH ×7 (01:48→17:56)
[2017-05-03] MEDS ORDERED: ACCU-CHEK XX SCH (02:00)
[2017-05-03] MEDS: ACETAMINOPHEN 325 MG TAB PO PRN ×2 (04:07→22:02)
[2017-05-03] MEDS: ASCORBIC ACID 500 MG TAB GTB SCH ×3 (05:55→21:51)
[2017-05-03] MEDS: LANSOPRAZOLE 30 MG CAP GTB SCH ×2 (05:55→17:50)
[2017-05-03] MEDS: SOD CHLORIDE 0.45% 1,000 ML IV SCH (05:57)
[2017-05-03 06:41] LABS: BASOPHILS % 0.2 % (0.0-2.0); EOSINOPHILS # 0.4 10^3/ul (0.0-0.5); EOSINOPHILS % 4.2 % (0.0-7.0); HEMATOCRIT 30.5 % (37.0-47.0); LYMPHOCYTES % 11.5 % (15.0-51.0); MEAN CORPUSCULAR HEMOGLOBIN 25.2 pg (29.0-33.0); MEAN CORPUSCULAR HGB CONC 29.5 g/dl (32.0-37.0); MEAN CORPUSCULAR VOLUME 85.4 fl (82.0-101.0); MEAN PLATELET VOLUME 11.2 fl (7.4-10.4); MONOCYTE # 0.5 10^3/ul (0.3-0.9); MONOCYTES % 5.4 % (0.0-11.0); NEUTROPHILS % 77.8 % (39.0-77.0); PLATELET COUNT 354 10^3/UL (140-415); RED BLOOD COUNT 3.57 10^6/ul (4.20-5.40); RED CELL DISTRIBUTION WIDTH 18.6 % (11.5-14.5)
[2017-05-03 07:06] LABS: CHOL/HDL RATIO 8.1 RATIO
[2017-05-03 07:35] LABS: THYROID STIMULATING HORMONE 1.31 MIU/L (0.465-4.680)
[2017-05-03 07:36] LABS: CALCIUM 10.8 mg/dl (8.4-10.2); CREATININE 1.31 mg/dl (0.44-1.00); MAGNESIUM 2.6 mg/dl (1.7-2.5); PHOSPHORUS 4.2 mg/dl (2.5-4.9); POTASSIUM 4.5 mmol/L (3.5-5.1)
[2017-05-03] MEDS: MULTIVITAMINS THERAPEUTIC TAB GTB SCH (08:54)
[2017-05-03] MEDS: BACLOFEN 10 MG TAB GTB SCH ×3 (08:54→21:52)
[2017-05-03] MEDS: MAGNESIUM OXIDE 400 MG TAB GTB SCH (08:55)
[2017-05-03] MEDS: FERROUS SULFATE (EC) 325 MG TAB PO SCH ×2 (08:55→21:51)
[2017-05-03] MEDS: traMADol 50 MG TAB GTB SCH (08:55)
[2017-05-03] MEDS: TRIMETHOPRIM/SULFAMETHOX (DS) TAB GTB SCH ×2 (08:55→21:52)
[2017-05-03] MEDS: METOCLOPRAMIDE 10 MG TAB GTB SCH ×2 (08:55→21:52)
[2017-05-03] MEDS: INSULIN DETEMIR [LEVEMIR] 3ML CART SC SCH ×2 (08:59→21:55)
[2017-05-03] MEDS: SUCRALFATE 1 GM TAB GTB SCH (09:04)
[2017-05-03 10:47] LABS: POST-TRANSFUSION BILIRUBIN 0.1 mg/dl
[2017-05-03 11:00] LABS: ADD UMIC YES; UR COLOR YELLOW (YELLOW)
[2017-05-03 11:01] LABS: UR CLARITY CLOUDY (CLEAR); UR GLUCOSE (Dip) NEGATIVE (NEGATIVE); UR TOTAL PROTEIN (Dip) 2+ mg/dl (NEGATIVE)
[2017-05-03 11:02] LABS: UR BILIRUBIN (Dip) NEGATIVE (NEGATIVE); UR BLOOD (Dip) 1+ mg/dL (NEGATIVE); UR KETONES (Dip) NEGATIVE (NEGATIVE); UR LEUKOCYTE ESTERASE (Dip) 2+ Leu/ul (NEGATIVE); UR NITRITE (Dip) NEGATIVE (NEGATIVE); UR UROBILINOGEN (Dip) 0.2 E.U./dL mg/dL (NEGATIVE)
[2017-05-03 11:04] LABS: UR BACTERIA MODERATE /HPF (NONE SEEN); UR SQUAMOUS EPITHELIAL CELL FEW /HPF (FEW)
--- NOTE | 2017-05-03 11:43 | PN ---
Date/Time of Note Date/Time of Note DATE: 05/03/17 TIME: 11:40 Assessment/Plan VTE Prophylaxis VTE Prophylaxis Intervention: SCD's Lines/Catheters IV C[facility] Type [facility]from [facility] Saline Lock Urinary Cath still in place: Yes Reason Cath still needed: urinary retention Assessment/Plan Chief Complaint/Hosp Course Assessment and plan:56-year-old female with a history of chronic hypoxic respiratory failure status post tracheostomy, vent dependent, prior CVA, multiple sclerosis, no functional quadriplegia, anoxic encephalopathy, anemia, diabetes mellitus type 2, nontoxic megacolon, hypertension, dyslipidemia, chronic kidney disease and sepsis sent to the ED by ambulance from [facility] for evaluation of worsening anemia. 1. Anemia: Status post PRBC transfusion, hemoglobin stable today. -Follow-up occult test. - Continue Epogen 2. Chronic hypoxic respiratory failure: Continue oxygen supplementation via tracheostomy, consider pulmonary consult for vent management 3. Multiple sclerosis: Monitor for now 4. History of anoxic encephalopathy: Monitor for now 5. Type 2 diabetes: Check A1c, also check TSH and lipid panel. Sliding scale insulin and Levemir 6. Hypertension: Blood pressure stable, continue hydralazine IV as needed systolic greater than 160 7. Chronic kidney disease: Monitor ins and outs and daily BUN/creatinine levels 8. Prior history of UTI: Monitor for now, no signs of any fevers 9. History of decubitus ulcers: Appreciate wound care nurse consult, will follow the recommendations for treatment of multiple decubitus ulcers. 10. GI prophylaxis: Prevacid 11. Hypernatremia: We will change IV fluids to D5W, follow-up sodium levels in the a.m. 12. AK I: Again see #11, change in IV fluids, monitor urine output, and BUN and creatinine levels in the morning. Problems: Subjective 24 Hr Interval Summary Free Text/Dictation Patient received blood transfusion yesterday. No acute events overnight. Exam/Review of Systems Vital Signs Vitals Vital Signs Date Time Temp Pulse Resp B/P Pulse Ox O2 Delivery O2 Flow Rate FiO2 05/03/17 11:01 98.3 102 12 112/69 99 05/03/17 05:38 35 05/02/17 17:24 Mechanical Ventilator Intake and Output 05/02/17 05/02/17 05/03/17 15:00 23:00 07:00 Output Total 1000 ml Balance -1000 ml Exam Const: Chronically ill-appearing, eyes open but unresponsive Head: Atraumatic Eyes: Normal Conjunctiva ENT: Normal External Ears, Nose and Mouth. Mucous membranes are dry Neck: Full range of motion. Tracheostomy site clean without erythema, induration or drainage Resp: Lightly diminished bilaterally with assisted ventilation. No wheezing Cardio: Regular rate and rhythm, no murmurs Abd: Soft, non tender, non distended. Normal bowel sounds. G-tube site without erythema, induration or drainage. Rectal examination: Brown stool. Skin: No petechiae or rashes. Decubiti. Back: No midline or flank tenderness Ext: No cyanosis, or edema. Some muscle atrophy. Contractures Neur: Awake and alert. Functional quadriplegia Results Result Diagram: 05/03/17 0555 05/03/17 0555 Results 24 hrs Laboratory Tests Test 05/02/17 14:46 05/02/17 18:52 05/02/17 18:54 05/02/17 20:43 Urine Color CONNIE Urine Clarity TURBID A Urine pH 8.0 Urine Specific [place] 1.016 Urine Ketones NEGATIVE Urine Nitrite NEGATIVE Urine Bilirubin NEGATIVE Urine Urobilinogen NEGATIVE Urine Leukocyte Esterase 3+ H Urine Microscopic RBC 54 H Urine Microscopic WBC > 182 H Urine Bacteria MODERATE Urine Hemoglobin 1+ H Urine Glucose 2+ H Urine Total Protein 2+ H Bedside Glucose 373 H 357 H Prothrombin Time 13.1 Prothrombin Time Ratio 1.0 INR International Normalized Ratio 0.99 Activated Partial Thromboplast Time 34.4 Test 05/02/17 21:49 05/03/17 01:41 05/03/17 04:30 05/03/17 05:08 Bedside Glucose 279 H 234 H 176 Urine Color YELLOW Urine Clarity CLOUDY Urine pH 8.5 Urine Specific [place] 1.010 Urine Ketones NEGATIVE Urine Nitrite NEGATIVE Urine Bilirubin NEGATIVE Urine Urobilinogen 0.2 E.U./dL Urine Leukocyte Esterase 2+ H Urine Microscopic RBC 5-10 Urine Microscopic WBC 10-25 Urine Squamous Epithelial Cells FEW Urine Bacteria MODERATE A Urine Hemoglobin 1+ H Urine Glucose NEGATIVE Urine Total Protein 2+ Test 05/03/17 05:55 05/03/17 06:12 05/03/17 09:03 05/03/17 11:27 White Blood Count 9.0 # Red Blood Count 3.57 L Hemoglobin 9.0 #L Hematocrit 30.5 L Mean Corpuscular Volume 85.4 Mean Corpuscular Hemoglobin 25.2 L Mean Corpuscular Hemoglobin Concent 29.5 L Red Cell Distribution Width 18.6 H Platelet Count 354 Mean Platelet Volume 11.2 H Neutrophils % 77.8 H Lymphocytes % 11.5 L Monocytes % 5.4 Eosinophils % 4.2 Basophils % 0.2 Nucleated Red Blood Cells % 0.0 Neutrophils # 7.0 Lymphocytes # 1.0 Monocytes # 0.5 Eosinophils # 0.4 Basophils # 0.0 Nucleated Red Blood Cells # 0.0 Sodium Level 153 H Potassium Level 4.5 Chloride Level 109 Carbon Dioxide Level 24 Anion Gap 25 H Blood Urea Nitrogen 50 H Creatinine 1.31 H Glucose Level 185 # Hemoglobin A1c 7.6 H Calcium Level 10.8 H Phosphorus Level 4.2 Magnesium Level 2.6 H Triglycerides Level 590 H Cholesterol Level 154 LDL Cholesterol, Calculated 17 HDL Cholesterol 19 L Cholesterol/HDL Ratio 8.1 Thyroid Stimulating Hormone (TSH) 1.310 Bedside Glucose 197 155 207 Medications Medications Current Medications Ondansetron HCl (Zofran Inj) 4 mg Q6H PRN IV NAUSEA AND/OR VOMITING; Start 05/02 at 16:30 Acetaminophen (Tylenol Tab) 650 mg Q6H PRN PO PAIN LEVEL 1-3 OR FEVER Last administered on 05/03/17t 04:07; Admin Dose 650 MG; Start 05/02/17 at 16:30 Acetaminophen/ Hydrocodone Bitart ([place] (5/325)) 1 tab Q6H PRN PO MODERATE PAIN LEVEL 4-6; Start 05/02/17 at 16:30 Morphine Sulfate (morphine) 2 mg Q4H PRN IV SEVERE PAIN LEVEL 7-10; Start at 16:30 Docusate Sodium (Colace) 100 mg Q12H PRN PO CONSTIPATION; Start 05/02/17 at 16: 30 Magnesium Hydroxide (Milk Of Mag) 30 ml DAILY PRN PO CONSTIPATION; Start at 16:30 Sodium Biphosphate/ Sodium Phosphate (Fleet Enema) 133 ml DAILY PRN [place] CONSTIPATION; Start 05/02/17 at 16:30 Lorazepam (Ativan) 0.5 mg Q6H PRN IV ANXIETY; Start 05/02/17 at 16:30 Hydralazine HCl (Apresoline) 10 mg Q6H PRN IV ELEVATED BLOOD PRESSURE; Start at 16:30 Nitroglycerin (Nitroglycerin (Sl Tab) 0.4 Mg) 1 tab Q5M PRN SL ANGINA; Start at 16:30 Ascorbic Acid (Vitamin C) 500 mg Q8 GTB Last administered on 05/03/17 05:55; Admin Dose 500 MG; Start 05/02/17 at 22:00 Baclofen (Lioresal) 20 mg TID GTB Last administered on 05/03/17 08:54; Admin Dose 20 MG; Start 05/02/17 at 21:00 Epoetin Andrey (Epogen (Esrd)) 10,000 units MoWeFr@17 SC ; Start 05/03/17 at 17:00 Magnesium Oxide (Mag-Ox 400) 800 mg DAILY GTB Last administered on 05/03/17 08: 55; Admin Dose 800 MG; Start 05/03/17 at 09:00 Metoclopramide HCl (Reglan) 10 mg BID GTB Last administered on 05/03/17 08:55; Admin Dose 10 MG; Start 05/02/17 at 21:00 Multivitamins Therapeutic (Theragran) 1 tab DAILY GTB Last administered on 08:54; Admin Dose 1 TAB; Start 05/03/17 at 09:00 Sucralfate (Carafate) 1 gm DAILY GTB Last administered on 05/03/17 09:04; Admin Dose 1 GM; Start 05/03/17 at 09:00 Tramadol HCl (Ultram) 100 mg DAILY GTB Last administered on 05/03/17 08:55; Admin Dose 100 MG; Start 05/03/17 at 09:00 Ferrous Sulfate (Ferrous Sulfate (Ec)) 325 mg BID PO Last administered on 08:55; Admin Dose 325 MG; Start 05/02/17 at 21:00 Insulin Detemir (Levemir) 12 unit QHS SC Last administered on 05/02/17 21:52; Admin Dose 12 UNIT; Start 05/02/17 at 21:00 Insulin Detemir (Levemir) 26 unit DAILY SC Last administered on 05/03/17 08:59 ; Admin Dose 26 UNIT; Start 05/03/17 at 09:00 Insulin Aspart (Novolog Insulin Pen) 15 unit Q6 SC Last administered on 06:14; Admin Dose 15 UNIT; Start 05/02/17 at 18:00 Lansoprazole (Prevacid) 30 mg BID@06,18 GTB Last administered on 05/03/17 05:55 ; Admin Dose 30 MG; Start 05/02/17 at 18:00 Miscellaneous Information 1 ea NOTE XX ; Start 05/02/17 at 16:30 Glucose (Glutose) 15 gm Q15M PRN PO DECREASED GLUCOSE; Start 05/02/17 at 16:30 Glucose (Glutose) 22.5 gm Q15M PRN PO DECREASED GLUCOSE; Start 05/02/17 at 16:30 Dextrose (D50w Syringe) 25 ml Q15M PRN IV DECREASED GLUCOSE; Start 05/02/17 at 16:30 Dextrose (D50w Syringe) 50 ml Q15M PRN IV DECREASED GLUCOSE; Start 05/02/17 at 16:30 Glucagon (Glucagen) 1 mg Q15M PRN IM DECREASED GLUCOSE; Start 05/02/17 at 16:30 Glucose (Glutose) 15 gm Q15M PRN BUCCAL DECREASED GLUCOSE; Start 05/02/17 at 16: 30 Epoetin Andrey (Epogen (Esrd)) 2,000 units MoWeFr@17 SC ; Start 05/03/17 at 17:00 Epoetin Andrey (Epogen (Esrd)) 3,000 units MoWeFr@17 SC ; Start 05/03/17 at 17:00 Miscellaneous [facility] This patient stern... PRN PRN XX WOUND CARE; Start 05/02/17 at 22:30 Trimethoprim/ Sulfamethoxazole 1 tab 1 tab BID GTB Last administered on 08:55; Admin Dose 1 TAB; Start 05/03/17 at 09:00 Dextrose (D5W) 1,000 ml @ 100 mls/hr Q10H IV ; Start 05/03/17 at 11:30; Status ASHLEY NIETO May 03, 2017 11:43
[2017-05-03] MEDS: DEXTROSE 5% 1,000 ML IV SCH ×2 (11:47→21:30)
[2017-05-03] MEDS ORDERED: COLLAGENASE 30 GM TUBE TOP PRN (13:00)
--- NOTE | 2017-05-03 15:15 | CONS ---
Date/Time of Note Date/Time of Note DATE: 05/03/17 TIME: 15:12 Assessment/Plan Assessment/Plan Additional Assessment/Plan Ventilator setting; AC of 12, tidal volume 500, PEEP of 5, 30% FiO2. Assessment and recommendations; 1. Patient with history of chronic respiratory failure admitted for anemia, status post blood confusion. No overt bleeding. 2. Multiple other comorbidities including multiple sclerosis, advanced dementia , diabetes, history of anemia, as well as history of UTI. Continue current treatment. Consultation Date/Type/Reason Admit Date/Time Date of Consultation: May 03, 2017 Type of Consultation: Pulmonary Reason for Consultation Pulmonary consultation requested for evaluation of chronic respiratory failure. Patient admitted for anemia. History of presenting any; patient is a 56-year-old lady who [facility]. Patient had a routine CBC done which showed low hemoglobin. Since admission patient had transfused blood. No show any recent fever chest congestion and sputum production or vomiting. Because of advanced dementia history was obtained from medical record. Past medical history; 1. Patient with history of chronic respiratory failure, on chronic ventilator. 2. Advanced dementia. 3. Multiple sclerosis. 4. History of anemia. 5. History of UTI. 6. Muscle spasm. 7. Diabetes. Patient is status post tracheostomy and G-tube placement. Medications; reviewed. Allergies; cephalosporin, penicillin, inulin and vancomycin. Social history; patient never smoked. Family history; noncontributory. Occupational history; patient is on disability. Next Review of systems; unable to be obtained. General exam; middle-aged woman, on ventilator via tracheostomy, unresponsive, currently in no distress. Past Surgical History Past Surgical Hx: other (G-tube, trach) Social History Alcohol Use: none Smoking Status: Never smoker Drug Use: none Exam/Review of Systems Vital Signs Vitals Vital Signs Date Time Temp Pulse Resp B/P Pulse Ox O2 Delivery O2 Flow Rate FiO2 05/03/17 12:39 100 05/03/17 11:01 98.3 12 112/69 99 05/03/17 05:38 35 05/02/17 17:24 Mechanical Ventilator Intake and Output 05/02/17 05/02/17 05/03/17 15:00 23:00 07:00 Output Total 1000 ml Balance -1000 ml Exam HEENT exam; supple neck, no JVD. No lymphadenopathy. Midline trachea. No thyromegaly. Tracheostomy in place. Patient has fair dentition. Chest exam; diminished but clear breath sound. S1-S2 audible, no murmurs. Regular rhythm. Abdomen exam; soft, no organomegaly. G-tube in place. Bowel sounds audible. Extremity exam; no peripheral edema. 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 Results Result Diagram: 05/03/17 0555 05/03/17 0555 Results 24 hrs Laboratory Tests Test 05/02/17 18:52 05/02/17 18:54 05/02/17 20:43 05/02/17 21:49 Bedside Glucose 373 H 357 H 279 H Prothrombin Time 13.1 Prothrombin Time Ratio 1.0 INR International Normalized Ratio 0.99 Activated Partial Thromboplast Time 34.4 Test 05/03/17 01:41 05/03/17 04:30 05/03/17 05:08 05/03/17 05:55 Bedside Glucose 234 H 176 Urine Color YELLOW Urine Clarity CLOUDY Urine pH 8.5 Urine Specific [place] 1.010 Urine Ketones NEGATIVE Urine Nitrite NEGATIVE Urine Bilirubin NEGATIVE Urine Urobilinogen 0.2 E.U./dL Urine Leukocyte Esterase 2+ H Urine Microscopic RBC 5-10 Urine Microscopic WBC 10-25 Urine Squamous Epithelial Cells FEW Urine Bacteria MODERATE A Urine Hemoglobin 1+ H Urine Glucose NEGATIVE Urine Total Protein 2+ White Blood Count 9.0 # Red Blood Count 3.57 L Hemoglobin 9.0 #L Hematocrit 30.5 L Mean Corpuscular Volume 85.4 Mean Corpuscular Hemoglobin 25.2 L Mean Corpuscular Hemoglobin Concent 29.5 L Red Cell Distribution Width 18.6 H Platelet Count 354 Mean Platelet Volume 11.2 H Neutrophils % 77.8 H Lymphocytes % 11.5 L Monocytes % 5.4 Eosinophils % 4.2 Basophils % 0.2 Nucleated Red Blood Cells % 0.0 Neutrophils # 7.0 Lymphocytes # 1.0 Monocytes # 0.5 Eosinophils # 0.4 Basophils # 0.0 Nucleated Red Blood Cells # 0.0 Sodium Level 153 H Potassium Level 4.5 Chloride Level 109 Carbon Dioxide Level 24 Anion Gap 25 H Blood Urea Nitrogen 50 H Creatinine 1.31 H Glucose Level 185 # Hemoglobin A1c 7.6 H Calcium Level 10.8 H Phosphorus Level 4.2 Magnesium Level 2.6 H Triglycerides Level 590 H Cholesterol Level 154 LDL Cholesterol, Calculated 17 HDL Cholesterol 19 L Cholesterol/HDL Ratio 8.1 Thyroid Stimulating Hormone (TSH) 1.310 Test 05/03/17 06:12 05/03/17 09:03 05/03/17 11:27 Bedside Glucose 197 155 207 Medications Medications Current Medications Ondansetron HCl (Zofran Inj) 4 mg Q6H PRN IV NAUSEA AND/OR VOMITING; Start 05/02 at 16:30 Acetaminophen (Tylenol Tab) 650 mg Q6H PRN PO PAIN LEVEL 1-3 OR FEVER Last administered on 05/03/17 04:07; Admin Dose 650 MG; Start 05/02/17 at 16:30 Acetaminophen/ Hydrocodone Bitart ([place] (5/325)) 1 tab Q6H PRN PO MODERATE PAIN LEVEL 4-6; Start 05/02/17 at 16:30 Morphine Sulfate (morphine) 2 mg Q4H PRN IV SEVERE PAIN LEVEL 7-10; Start at 16:30 Docusate Sodium (Colace) 100 mg Q12H PRN PO CONSTIPATION; Start 05/02/17 at 16: 30 Magnesium Hydroxide (Milk Of Mag) 30 ml DAILY PRN PO CONSTIPATION; Start at 16:30 Sodium Biphosphate/ Sodium Phosphate (Fleet Enema) 133 ml DAILY PRN [place] CONSTIPATION; Start 05/02/17 at 16:30 Lorazepam (Ativan) 0.5 mg Q6H PRN IV ANXIETY; Start 05/02/17 at 16:30 Hydralazine HCl (Apresoline) 10 mg Q6H PRN IV ELEVATED BLOOD PRESSURE; Start at 16:30 Nitroglycerin (Nitroglycerin (Sl Tab) 0.4 Mg) 1 tab Q5M PRN SL ANGINA; Start at 16:30 Ascorbic Acid (Vitamin C) 500 mg Q8 GTB Last administered on 05/03/17 13:18; Admin Dose 500 MG; Start 05/02/17 at 22:00 Baclofen (Lioresal) 20 mg TID GTB Last administered on 05/03/17 13:18; Admin Dose 20 MG; Start 05/02/17 at 21:00 Epoetin Andrey (Epogen (Esrd)) 10,000 units MoWeFr@17 SC ; Start 05/03/17 at 17:00 Magnesium Oxide (Mag-Ox 400) 800 mg DAILY GTB Last administered on 05/03/17 08: 55; Admin Dose 800 MG; Start 05/03/17 at 09:00 Metoclopramide HCl (Reglan) 10 mg BID GTB Last administered on 05/03/17 08:55; Admin Dose 10 MG; Start 05/02/17 at 21:00 Multivitamins Therapeutic (Theragran) 1 tab DAILY GTB Last administered on 08:54; Admin Dose 1 TAB; Start 05/03/17 at 09:00 Sucralfate (Carafate) 1 gm DAILY GTB Last administered on 05/03/17 09:04; Admin Dose 1 GM; Start 05/03/17 at 09:00 Tramadol HCl (Ultram) 100 mg DAILY GTB Last administered on 05/03/17 08:55; Admin Dose 100 MG; Start 05/03/17 at 09:00 Ferrous Sulfate (Ferrous Sulfate (Ec)) 325 mg BID PO Last administered on 08:55; Admin Dose 325 MG; Start 05/02/17 at 21:00 Insulin Detemir (Levemir) 12 unit QHS SC Last administered on 05/02/17 21:52; Admin Dose 12 UNIT; Start 05/02/17 at 21:00 Insulin Detemir (Levemir) 26 unit DAILY SC Last administered on 05/03/17 08:59 ; Admin Dose 26 UNIT; Start 05/03/17 at 09:00 Insulin Aspart (Novolog Insulin Pen) 15 unit Q6 SC Last administered on 11:45; Admin Dose 15 UNIT; Start 05/02/17 at 18:00 Lansoprazole (Prevacid) 30 mg BID@,18 GTB Last administered on 05/03/17 05:55 ; Admin Dose 30 MG; Start 05/02/17 at 18:00 Miscellaneous Information 1 ea NOTE XX ; Start 05/02/17 at 16:30 Glucose (Glutose) 15 gm Q15M PRN PO DECREASED GLUCOSE; Start 05/02/17 at 16:30 Glucose (Glutose) 22.5 gm Q15M PRN PO DECREASED GLUCOSE; Start 05/02/17 at 16:30 Dextrose (D50w Syringe) 25 ml Q15M PRN IV DECREASED GLUCOSE; Start 05/02/17 at 16:30 Dextrose (D50w Syringe) 50 ml Q15M PRN IV DECREASED GLUCOSE; Start 05/02/17 at 16:30 Glucagon (Glucagen) 1 mg Q15M PRN IM DECREASED GLUCOSE; Start 05/02/17 at 16:30 Glucose (Glutose) 15 gm Q15M PRN BUCCAL DECREASED GLUCOSE; Start 05/02/17 at 16: 30 Epoetin Andrey (Epogen (Esrd)) 2,000 units MoWeFr@17 SC ; Start 05/03/17 at 17:00 Epoetin Andrey (Epogen (Esrd)) 3,000 units MoWeFr@17 SC ; Start 05/03/17 at 17:00 Miscellaneous Information (Pending [facility] Order For Wound Care) This patient stern... PRN PRN XX WOUND CARE; Start 05/02/17 at 22:30 Trimethoprim/ Sulfamethoxazole 1 tab 1 tab BID GTB Last administered on 08:55; Admin Dose 1 TAB; Start 05/03/17 at 09:00 Dextrose (D5W) 1,000 ml @ 100 mls/hr Q10H IV Last administered on 05/03/17 11: 47; Admin Dose 100 MLS/HR; Start 05/03/17 at 11:30 Collagenase (Santyl) 1 applic DAILY TOP ; Start 05/03/17 at 13:00 Sodium Hypochlorite (Dakin'S (Dilute 1/40%)) 1 applic BID IRR ; Start 05/03/17 at 15:00 Nystatin (Nystatin Powder) 1 applic BID TOP ; Start 05/03/17 at 14:30 ARYAN COLLADO May 03, 2017 15:15
[2017-05-03] MEDS: SODIUM HYPOCHLORITE 1/40% 1L IRRIG IRR SCH ×2 (15:53→22:00)
[2017-05-03] MEDS: COLLAGENASE 30 GM TUBE TOP SCH (15:54)
[2017-05-03] MEDS: NYSTATIN 30 GM POWDER BTL TOP SCH ×2 (15:54→22:00)
[2017-05-03] MEDS: EPOETIN 10000 UNITS/1 ML INJ (ESRD) SC SCH (16:13)
[2017-05-03] MEDS: EPOETIN 2000 UNITS/1 ML INJ (ESRD) SC SCH (16:13)
[2017-05-03] MEDS: EPOETIN 3000 UNITS/1 ML INJ (ESRD) SC SCH (16:14)
[2017-05-04] VITALS (24 sets, daily range): BP systolic 99–125; BP diastolic 58–69; PULSE 77–126; RESP 12–20
[2017-05-04] MEDS: INSULIN ASPART [NOVOLOG] 3 ML PEN SC SCH ×4 (00:02→17:23)
[2017-05-04] MEDS: DEXTROSE 5% 1,000 ML IV SCH ×2 (01:25→17:21)
[2017-05-04] MEDS: ASCORBIC ACID 500 MG TAB GTB SCH ×3 (05:14→21:55)
[2017-05-04] MEDS: LANSOPRAZOLE 30 MG CAP GTB SCH ×2 (05:14→17:23)
[2017-05-04] MEDS: FERROUS SULFATE (EC) 325 MG TAB PO SCH ×2 (09:01→21:55)
[2017-05-04] MEDS: SUCRALFATE 1 GM TAB GTB SCH (09:01)
[2017-05-04] MEDS: NYSTATIN 30 GM POWDER BTL TOP SCH ×2 (09:01→21:56)
[2017-05-04] MEDS: traMADol 50 MG TAB GTB SCH (09:02)
[2017-05-04] MEDS: MAGNESIUM OXIDE 400 MG TAB GTB SCH (09:02)
[2017-05-04] MEDS: SODIUM HYPOCHLORITE 1/40% 1L IRRIG IRR SCH ×2 (09:02→21:55)
[2017-05-04] MEDS: BACLOFEN 10 MG TAB GTB SCH ×3 (09:02→21:55)
[2017-05-04] MEDS: MULTIVITAMINS THERAPEUTIC TAB GTB SCH (09:02)
[2017-05-04] MEDS: METOCLOPRAMIDE 10 MG TAB GTB SCH ×2 (09:02→21:55)
[2017-05-04] MEDS: COLLAGENASE 30 GM TUBE TOP SCH (09:03)
[2017-05-04] MEDS: TRIMETHOPRIM/SULFAMETHOX (DS) TAB GTB SCH ×2 (09:06→21:55)
[2017-05-04] MEDS: INSULIN DETEMIR [LEVEMIR] 3ML CART SC SCH ×2 (09:07→22:04)
[2017-05-04 09:26] LABS: BASOPHILS % 0.2 % (0.0-2.0); EOSINOPHILS # 0.1 10^3/ul (0.0-0.5); EOSINOPHILS % 1.1 % (0.0-7.0); HEMATOCRIT 31.8 % (37.0-47.0); HEMOGLOBIN 9.4 g/dl (12.0-16.0); LYMPHOCYTES # 0.7 10^3/ul (0.8-2.9); LYMPHOCYTES % 6.1 % (15.0-51.0); MEAN CORPUSCULAR HEMOGLOBIN 25.1 pg (29.0-33.0); MEAN CORPUSCULAR HGB CONC 29.6 g/dl (32.0-37.0); MEAN CORPUSCULAR VOLUME 84.8 fl (82.0-101.0); MEAN PLATELET VOLUME 11.3 fl (7.4-10.4); MONOCYTE # 0.6 10^3/ul (0.3-0.9); MONOCYTES % 5.3 % (0.0-11.0); NEUTROPHIL # 9.9 10^3/ul (1.6-7.5); NEUTROPHILS % 86.4 % (39.0-77.0); PLATELET COUNT 320 10^3/UL (140-415); RED BLOOD COUNT 3.75 10^6/ul (4.20-5.40); RED CELL DISTRIBUTION WIDTH 19.1 % (11.5-14.5); WHITE BLOOD COUNT 11.5 10^3/ul (4.8-10.8)
[2017-05-04 09:46] LABS: CALCIUM 9.7 mg/dl (8.4-10.2); CREATININE 1.27 mg/dl (0.44-1.00); POTASSIUM 4.2 mmol/L (3.5-5.1)
--- NOTE | 2017-05-04 12:09 | DS ---
Date/Time of Note Date/Time of Note DATE: 05/04/17 TIME: 12:03 Discharge Summary Admission/Discharge Info Admit Date/Time May 02, 2017 at 13:31 Discharge Date/Time Discharge Diagnosis 1. Anemia: Status post PRBC transfusion, hemoglobin stable today. 2. Chronic hypoxic respiratory failure: Continue oxygen supplementation via tracheostomy, consider pulmonary consult for vent management 3. Multiple sclerosis 4. History of anoxic encephalopathy: Monitor for now 5. Type 2 diabetes - on Sliding scale insulin and Levemir 6. Hypertension: Blood pressure stable 7. Acute on chronic kidney disease 8. UTI: -On antibiotics now 9. History of decubitus ulcers: Appreciate wound care nurse consult, will follow the recommendations for treatment of multiple decubitus ulcers. 10. GI prophylaxis: Prevacid 11. Hypernatremia resolved Patient Condition: Stable Hospital Course 56-year-old female with a history of chronic hypoxic respiratory failure status post tracheostomy, vent dependent, prior CVA, multiple sclerosis, no functional quadriplegia, anoxic encephalopathy, anemia, diabetes mellitus type 2, nontoxic megacolon, hypertension, dyslipidemia, chronic kidney disease and sepsis sent to the ED by ambulance from [facility] for evaluation of worsening anemia. Patient was admitted and found also with hypernatremia. She received 1 unit PRBC transfusion, also found with urinary tract infection, culture results were still pending by the time of this discharge. She has a prior history of ESBL and Klebsiella UTIs. Antibiotics were adjusted based on that. She also received D5W IV fluids for her hypernatremia, which resolved. Her vital signs have been stable. She will be discharged back to [facility] facility today in improved condition. She will need a complete meropenem antibiotic for 7 more days. See printed discharge medication list for full list of medications. Home Meds Reported Medications Tramadol Hcl* (Ultram*) 50 Mg Tablet, 100 MG GTB DAILY, TAB 05/02/17 Omeprazole* (Omeprazole*) 40 Mg Capsule.dr, 40 MG GTB BID, #30 CAP 05/02/17 Insulin Aspart* (Novolog Insulin Pen*) 100 Unit/Ml Soln, 0 SC .SLIDING SCALE AC , EA 05/02/17 Multivitamins* (Theragran*) 1 Tab Tab, 1 TAB GTB DAILY, TAB 05/02/17 Metoclopramide* (Reglan*) 10 Mg Tablet, 10 MG GTB BID, TAB 05/02/17 Magnesium Oxide* (Magnesium Oxide*) 400 Mg Tablet, 800 MG GTB DAILY, TAB 05/02/17 Insulin Detemir (Levemir) 100 Unit/1 Ml Vial, 12 UNIT SC QHS, VIAL 05/02/17 Insulin Lispro (Humalog) 100 Unit/1 Ml Cartridge, 15 UNIT SQ Q6 05/02/17 Insulin Detemir (Levemir) 100 Unit/1 Ml Vial, 26 UNIT SC DAILY, VIAL 05/02/17 Heparin Sod (Porcine) (Heparin) 1,000 Unit/Ml Soln, 5000 UNIT IJ Q12 05/02/17 Ferrous Sulfate (Ferrous Sulfate) 220 Mg/5 Ml Solution, 330 MG PO BID 05/02/17 Epoetin Andrey (Epogen) 10,000 Units/Ml Soln, 77403 UNITS SC MONWEDFRI, VIAL 05/02/17 Sucralfate* (Carafate*) 1 Gm Tab, 1 GM GTB DAILY, TAB 05/02/17 Ascorbic Acid* (Ascorbic Acid*) 500 Mg/5 Ml Syrup, 500 MG GTB Q8, #150 ML 05/02/17 Arginine/Ascorbate Sod/[place] AC (Arginaid Powder) 1 Each Powd.pack, 1 EACH GTB BID 05/02/17 Baclofen* (Baclofen*) 20 Mg Tablet, 20 MG GTB TID, TAB 10/14/16 Acetaminophen* (Acetaminophen*) 650 Mg Tablet, 650 MG GTB Q4 Y for ELEVATED TEMPERATURE, #30 TAB OR FEVER 10/14/16 Discontinued Reported Medications Simethicone* (Anti-Gas/80*) 80 Mg Tab.chew, 160 MG GTB DAILY Y for DISTENSION/ GAS/BLOATING, TAB.CHEW 11/15/16 Metoprolol Tartrate* (Lopressor*) 25 Mg Tab, 25 MG GTB BID, #60 TAB HOLD IF SBP<110; HR<60 10/14/16 Gemfibrozil* (Gemfibrozil*) 600 Mg Tablet, 600 MG GTB BID, TAB 10/14/16 Clonidine Hcl* (Clonidine Hcl*) 0.1 Mg Tab, 0.1 MG GTB Q8, TAB IF SBP>160 10/14/16 Atorvastatin* (Atorvastatin*) 40 Mg Tablet, 40 MG GTB QHS, #30 TAB 10/14/16 Zinc Sulfate* (Zinc Sulfate*) 220 Mg Tablet, 220 MG GTB DAILY, TAB 10/14/16 Insulin Detemir (Levemir Flextouch) 100 Unit/1 Ml Insuln.pen, 40 UNIT SQ QAM 10/14/16 Diphenhydramine Hcl* (Diphenhydramine Hcl*) 25 Mg Capsule, 25 MG GTB Q4 Y for ITCHING, CAP 10/14/16 Pantoprazole* (Pantoprazole*) 40 Mg Tablet., 40 MG GTB AC BREAKFAST, TAB 10/14/16 Primary Care Provider Star Taylor MD Time spent on discharge: > 30 minutes Pending Labs Laboratory Tests Test 05/03/17 17:54 05/03/17 21:53 05/04/17 00:00 05/04/17 02:04 Bedside Glucose 195mg/dL (70-220) 161mg/dL (70-220) 190mg/dL (70-220) 166mg/dL (70-220) Test 05/04/17 05:13 05/04/17 05:27 05/04/17 08:30 Bedside Glucose 165mg/dL (70-220) Lab Scanned Report BLOOD [id number] White Blood Count 11.510^3/ul (4.8-10.8) Red Blood Count 3.7510^6/ul (4.20-5.40) Hemoglobin 9.4g/dl (12.0-16.0) Hematocrit 31.8% (37.0-47.0) Mean Corpuscular Volume 84.8fl (82.0-101.0) Mean Corpuscular Hemoglobin 25.1pg (29.0-33.0) Mean Corpuscular Hemoglobin Concent 29.6g/dl (32.0-37.0) Red Cell Distribution Width 19.1% (11.5-14.5) Platelet Count 41188^3/UL (140-415) Mean Platelet Volume 11.3fl (7.4-10.4) Neutrophils % 86.4% (39.0-77.0) Lymphocytes % 6.1% (15.0-51.0) Monocytes % 5.3% (0.0-11.0) Eosinophils % 1.1% (0.0-7.0) Basophils % 0.2% (0.0-2.0) Nucleated Red Blood Cells % 0.0/100WBC (0.0-0.0) Neutrophils # 9.910^3/ul (1.6-7.5) Lymphocytes # 0.710^3/ul (0.8-2.9) Monocytes # 0.610^3/ul (0.3-0.9) Eosinophils # 0.110^3/ul (0.0-0.5) Basophils # 0.010^3/ul (0.0-0.1) Nucleated Red Blood Cells # 0.010^3/ul (0.0-0.0) Sodium Level 145mmol/L (135-144) Potassium Level 4.2mmol/L (3.5-5.1) Chloride Level 104mmol/L (97-110) Carbon Dioxide Level 22mmol/L (21-31) Anion Gap 23 (8-16) Blood Urea Nitrogen 34mg/dl (7-20) Creatinine 1.27mg/dl (0.44-1.00) Glucose Level 208mg/dl (70-220) Calcium Level 9.7mg/dl (8.4-10.2) ASHLEY EMERY May 04, 2017 12:09
--- NOTE | 2017-05-04 12:22 | PDOCDIS ---
Discharge Instructions DIAGNOSIS Discharge Diagnosis 1. Anemia: Status post PRBC transfusion, hemoglobin stable today. 2. Chronic hypoxic respiratory failure: Continue oxygen supplementation via tracheostomy, consider pulmonary consult for vent management 3. Multiple sclerosis 4. History of anoxic encephalopathy: Monitor for now 5. Type 2 diabetes - on Sliding scale insulin and Levemir 6. Hypertension: Blood pressure stable 7. Acute on chronic kidney disease 8. UTI: -On antibiotics now 9. History of decubitus ulcers: Appreciate wound care nurse consult, will follow the recommendations for treatment of multiple decubitus ulcers. 10. GI prophylaxis: Prevacid 11. Hypernatremia resolved CONDITION Patient Condition: Stable ASHLEY EMERY May 04, 2017 12:22
[2017-05-04] MEDS: MEROPENEM 1 GM/50ML(PMX) 50 ML IVPB SCH ×2 (12:37→21:58)
[2017-05-04] MEDS ORDERED: SOD CHLORIDE 0.9% 500 ML IV ONE (14:00)
[2017-05-04] MEDS ORDERED: SOD CHLORIDE 0.9% 250 ML IV ONE (14:00)
--- NOTE | 2017-05-04 14:49 | CONS ---
Date/Time of Note Date/Time of Note DATE: 05/04/17 TIME: 14:48 Assessment/Plan Assessment/Plan Additional Assessment/Plan Ventilator setting; AC of 12, tidal volume 500, PEEP of 5, 30% FiO2. Assessment and recommendations; 1. Patient admitted for anemia and UTI with interval improvement. 2. Advanced multiple sclerosis with extremely poor mental status. 3. Chronic respiratory failure. Continue current treatment. Consultation Date/Type/Reason Admit Date/Time May 02, 2017 at 13:31 Initial Consult Date 05/03/17 Type of Consultation: Pulmonary 24 HR Interval Summary Free Text/Dictation Patient condition is stable. Remains unresponsive. Remains ventilator dependent. Has remained hemodynamically stable. General exam; middle-aged woman, on ventilator via tracheostomy, unresponsive, currently in no distress. Exam/Review of Systems Vital Signs Vitals Vital Signs Date Time Temp Pulse Resp B/P Pulse Ox O2 Delivery O2 Flow Rate FiO2 05/04/17 13:00 113 15 100 85 05/04/17 11:28 98.6 99/58 05/02/17 17:24 Mechanical Ventilator Intake and Output 05/03/17 05/03/17 05/04/17 15:00 23:00 07:00 Intake Total 350 ml 650 ml Output Total 1600 ml 600 ml Balance 350 ml -950 ml -600 ml Exam HEENT exam; supple neck, no JVD. No lymphadenopathy. Midline trachea. No thyromegaly. Tracheostomy in place. Chest exam; diminished but clear breath sound. S1-S2 audible, no murmurs. Regular rhythm. Abdomen exam; soft, no organomegaly. Bowel sounds audible. Extremity exam; no peripheral edema. Patient has contractures involving all 4 extremities. [employer] exam; patient remains unresponsive. Results Result Diagram: 05/04/17 0830 05/04/17 0830 Results 24 hrs Laboratory Tests Test 05/03/17 17:54 05/03/17 21:53 05/04/17 00:00 05/04/17 02:04 Bedside Glucose 195 161 190 166 Test 05/04/17 05:13 05/04/17 05:27 05/04/17 08:30 05/04/17 12:35 Bedside Glucose 165 274 H Lab Scanned Report BLOOD TRANSFUSION White Blood Count 11.5 #H Red Blood Count 3.75 L Hemoglobin 9.4 L Hematocrit 31.8 L Mean Corpuscular Volume 84.8 Mean Corpuscular Hemoglobin 25.1 L Mean Corpuscular Hemoglobin Concent 29.6 L Red Cell Distribution Width 19.1 H Platelet Count 320 Mean Platelet Volume 11.3 H Neutrophils % 86.4 H Lymphocytes % 6.1 L Monocytes % 5.3 Eosinophils % 1.1 Basophils % 0.2 Nucleated Red Blood Cells % 0.0 Neutrophils # 9.9 H Lymphocytes # 0.7 L Monocytes # 0.6 Eosinophils # 0.1 Basophils # 0.0 Nucleated Red Blood Cells # 0.0 Sodium Level 145 H Potassium Level 4.2 Chloride Level 104 Carbon Dioxide Level 22 Anion Gap 23 H Blood Urea Nitrogen 34 #H Creatinine 1.27 H Glucose Level 208 Calcium Level 9.7 Medications Medications Current Medications Ondansetron HCl (Zofran Inj) 4 mg Q6H PRN IV NAUSEA AND/OR VOMITING; Start 05/02 at 16:30 Acetaminophen (Tylenol Tab) 650 mg Q6H PRN PO PAIN LEVEL 1-3 OR FEVER Last administered on 05/03/17t 22:02; Admin Dose 650 MG; Start 05/02/17 at 16:30 Acetaminophen/ Hydrocodone Bitart ([place] (5/325)) 1 tab Q6H PRN PO MODERATE PAIN LEVEL 4-6; Start 05/02/17 at 16:30 Morphine Sulfate (morphine) 2 mg Q4H PRN IV SEVERE PAIN LEVEL 7-10; Start at 16:30 Docusate Sodium (Colace) 100 mg Q12H PRN PO CONSTIPATION; Start 05/02/17 at 16: 30 Magnesium Hydroxide (Milk Of Mag) 30 ml DAILY PRN PO CONSTIPATION; Start at 16:30 Sodium Biphosphate/ Sodium Phosphate (Fleet Enema) 133 ml DAILY PRN [place] CONSTIPATION; Start 05/02/17 at 16:30 Lorazepam (Ativan) 0.5 mg Q6H PRN IV ANXIETY; Start 05/02/17 at 16:30 Hydralazine HCl (Apresoline) 10 mg Q6H PRN IV ELEVATED BLOOD PRESSURE; Start at 16:30 Nitroglycerin (Nitroglycerin (Sl Tab) 0.4 Mg) 1 tab Q5M PRN SL ANGINA; Start at 16:30 Ascorbic Acid (Vitamin C) 500 mg Q8 GTB Last administered on 05/04/17 12:38; Admin Dose 500 MG; Start 05/02/17 at 22:00 Baclofen (Lioresal) 20 mg TID GTB Last administered on 05/04/17 12:38; Admin Dose 20 MG; Start 05/02/17 at 21:00 Epoetin Andrey (Epogen (Esrd)) 10,000 units MoWeFr@17 SC Last administered on 05/03 16:13; Admin Dose 10,000 UNITS; Start 05/03/17 at 17:00 Magnesium Oxide (Mag-Ox 400) 800 mg DAILY GTB Last administered on 05/04/17 09: 02; Admin Dose 800 MG; Start 05/03/17 at 09:00 Metoclopramide HCl (Reglan) 10 mg BID GTB Last administered on 05/04/17 09:02; Admin Dose 10 MG; Start 05/02/17 at 21:00 Multivitamins Therapeutic (Theragran) 1 tab DAILY GTB Last administered on 09:02; Admin Dose 1 TAB; Start 05/03/17 at 09:00 Sucralfate (Carafate) 1 gm DAILY GTB Last administered on 05/04/17 09:01; Admin Dose 1 GM; Start 05/03/17 at 09:00 Tramadol HCl (Ultram) 100 mg DAILY GTB Last administered on 05/04/17 09:02; Admin Dose 100 MG; Start 05/03/17 at 09:00 Ferrous Sulfate (Ferrous Sulfate (Ec)) 325 mg BID PO Last administered on 09:01; Admin Dose 325 MG; Start 05/02/17 at 21:00 Insulin Detemir (Levemir) 12 unit QHS SC Last administered on 05/03/17 21:55; Admin Dose 12 UNIT; Start 05/02/17 at 21:00 Insulin Detemir (Levemir) 26 unit DAILY SC Last administered on 05/04/17 09:07 ; Admin Dose 26 UNIT; Start 05/03/17 at 09:00 Insulin Aspart (Novolog Insulin Pen) 15 unit Q6 SC Last administered on 12:39; Admin Dose 15 UNIT; Start 05/02/17 at 18:00 Lansoprazole (Prevacid) 30 mg BID@06,18 GTB Last administered on 05/04/17 05:14 ; Admin Dose 30 MG; Start 05/02/17 at 18:00 Miscellaneous Information 1 ea NOTE XX ; Start 05/02/17 at 16:30 Glucose (Glutose) 15 gm Q15M PRN PO DECREASED GLUCOSE; Start 05/02/17 at 16:30 Glucose (Glutose) 22.5 gm Q15M PRN PO DECREASED GLUCOSE; Start 05/02/17 at 16:30 Dextrose (D50w Syringe) 25 ml Q15M PRN IV DECREASED GLUCOSE; Start 05/02/17 at 16:30 Dextrose (D50w Syringe) 50 ml Q15M PRN IV DECREASED GLUCOSE; Start 05/02/17 at 16:30 Glucagon (Glucagen) 1 mg Q15M PRN IM DECREASED GLUCOSE; Start 05/02/17 at 16:30 Glucose (Glutose) 15 gm Q15M PRN BUCCAL DECREASED GLUCOSE; Start 05/02/17 at 16: 30 Epoetin Andrey (Epogen (Esrd)) 2,000 units MoWeFr@17 SC Last administered on 16:13; Admin Dose 2,000 UNITS; Start 05/03/17 at 17:00 Epoetin Andrey (Epogen (Esrd)) 3,000 units MoWeFr@17 SC Last administered on 16:14; Admin Dose 3,000 UNITS; Start 05/03/17 at 17:00 Miscellaneous Information (Pending Santyl Order For Wound Care) This patient stern... PRN PRN XX WOUND CARE; Start 05/02/17 at 22:30 Trimethoprim/ Sulfamethoxazole 1 tab 1 tab BID GTB Last administered on 09:06; Admin Dose 1 TAB; Start 05/03/17 at 09:00 Dextrose (D5W) 1,000 ml @ 100 mls/hr Q10H IV Last administered on 05/04/17 01: 25; Admin Dose 100 MLS/HR; Start 05/03/17 at 11:30 Collagenase (Santyl) 1 applic DAILY TOP Last administered on 05/04/17 09:03; Admin Dose 1 APPLIC; Start 05/03/17 at 13:00 Sodium Hypochlorite (Dakin'S (Dilute 1/40%)) 1 applic BID IRR Last administered on 05/04/17 09:02; Admin Dose 1 APPLIC; Start 05/03/17 at 15:00 Nystatin 1 applic 1 applic BID TOP Last administered on 05/04/17 09:01; Admin Dose 1 APPLIC; Start 05/03/17 at 14:30 Meropenem/Sodium Chloride 50 ml @ 100 mls/hr Q12 IVPB Last administered on 05/04 12:37; Admin Dose 100 MLS/HR; Start 05/04/17 at 12:30 Sodium Chloride (NS) 500 ml @ 250 mls/hr Q2H ONCE IV Last administered on 14:20; Admin Dose 250 MLS/HR; Start 05/04/17 at 14:00; Stop 05/04/17 at 15:59 ARYAN COLLADO May 04, 2017 14:49
[2017-05-04 16:55] LABS: AADO2 Arterial 273.7 mmHg (7.0-24.0); Allen Test ACCEPTAB; Arterial Base Excess -2.5 mmol/L (-3.0-3); Arterial COHb 0.2 % (0.0-3.0); Arterial Fraction of Oxyhgb 98.7 % (93.0-99.0); Arterial HCO3 21.5 mmol/L (22.0-26.0); Arterial MetHb 0.5 % (0.0-1.5); Arterial Total Hemglobin 13.1 g/dl (12.0-18.0); MODE VENT - AC
[2017-05-04] MEDS: ACETAMINOPHEN 325 MG TAB PO PRN (18:08)
--- NOTE | 2017-05-04 18:56 | RADRPT ---
PROCEDURE: XR Chest. CLINICAL INDICATION: Pneumonia. TECHNIQUE: Single frontal view of the chest. COMPARISON: 12/15/2016. FINDINGS: Tracheostomy tube again seen at midline. Previously seen right central venous line is removed. The re is mild cardiomegaly. The right lung is clear. There is new left lung base air space disease an d pleural effusion, suggesting left lung base pneumonia. No pneumothorax. The osseous structures an d soft tissues are unremarkable. IMPRESSION: New left lung base pneumonia. RPTAT: [facility] Physician Bianca Date Time Electronically viewed and signed by Quique Gutierrez Physician on 05/04/2017 18:55 RS/
[2017-05-04] MEDS ORDERED: SILVER NITRATE SWAB TOP ONE (19:30)
--- NOTE | 2017-05-04 21:27 | CONS ---
Date/Time of Note Date/Time of Note DATE: 05/04/17 TIME: 21:04 Assessment/Plan Assessment/Plan Chief Complaint/Hosp Course 1. Multiple wounds: sacrococcyx stage 4 with red wound bed, 2 sites noted oozing blood: areas cauterized using silver nitrate, packed with gauze, dry dressing. -close monitoring for bleeding -gentle wound care -frequent turning and offloading -specialty mattress -vitamin C and short term zinc 2. Anemia: s/p transfusion: stable 3. UTI: -abx per sensitivities 4. Pneumonia: -pulmonary toilet -abx per sensitivity 5. Leukocytosis: 2/2 #3+#4; afebrile -as above 6. Diabetes: -blood sugar optimization 7. Electrolyte imbalance (hypercalcemia, hypermagnesemia) -electrolyte optimization 8. VDRF -supportive Patient seen and examined in collaboration with Dr. Hi High. Thank you. Problems: Consultation Date/Type/Reason Admit Date/Time May 02, 2017 at 13:31 Date of Consultation: May 04, 2017 Type of Consultation: surgical Reason for Consultation bleeding sacral wound Referring Provider: ASHLEY EMERY Hx of Present Illness Paige Pollard is 56-year-old female with multiple comorbidities. Most notably, she is vent dependent and immobile and was hospitalized in [facility] for evaluation of worsening anemia and hypernatremia. While in house, she received 1 unit PRBC transfusion, also found with urinary tract infection. She was cleared by medical to team to return to her SNF. However, she was noted to have oozing blood from her sacral wound. Surgical consult was called for evaluation and treatment. Subjective hx not possible: pt non-verbal Constitutional: requiring O2 (vent), No chills Eyes: No discharge Respiratory: No cough, No shortness of breath Cardiovascular: No edema Gastrointestinal: flatus, No blood, No constipation, No diarrhea Past Medical History chronic hypoxic respiratory failure status post tracheostomy vent dependent CVA multiple sclerosis anoxic encephalopathy anemia diabetes mellitus type 2 nontoxic megacolon hypertension dyslipidemia chronic kidney disease sepsis Past Surgical History tracheostomy PEG Past Surgical Hx: other (G-tube, trach) Family History Significant Family History: no pertinent family hx Social History Alcohol Use: none Smoking Status: Never smoker Drug Use: none Exam/Review of Systems Vital Signs Vitals Vital Signs Date Time Temp Pulse Resp B/P Pulse Ox O2 Delivery O2 Flow Rate FiO2 05/04/17 20:39 126 05/04/17 19:59 98.3 20 107/67 98 05/04/17 19:58 40 05/02/17 17:24 Mechanical Ventilator Intake and Output 05/03/17 05/03/17 05/04/17 15:00 23:00 07:00 Intake Total 350 ml 650 ml Output Total 1600 ml 600 ml Balance 350 ml -950 ml -600 ml Exam Constitutional: alert, non-verbal, other (withdraws from pain) Head: atraumatic, normocephalic Eyes: PERRL, nl lids, nl sclera ENMT: mucosa pink and moist Neck: non-tender, supple Respiratory: normal air movement, No congested cough Cardiovascular: nl pulses, regular rate and rhythm, No edema Gastrointestinal: non-tender, soft Genitourinary - Female: nl external genitalia, other (munoz with cloudy urine) Musculoskeletal: No muscle tone, No nl gait and stance Extremities: normal pulses, No edema Neurological: confused Skin: other (multiple wounds: sacral wound with red woundbed, noted 2 sites oozing blood, periwound maceration; ischial wounds without bleeding, mod drainage), No rash or lesions Results Result Diagram: 05/04/17 0830 05/04/17 0830 Results 24 hrs Laboratory Tests Test 05/03/17 21:53 05/04/17 00:00 05/04/17 02:04 05/04/17 05:13 Bedside Glucose 161 190 166 165 Test 05/04/17 05:27 05/04/17 08:30 05/04/17 12:35 05/04/17 15:25 Lab Scanned Report BLOOD TRANSFUSION White Blood Count 11.5 #H Red Blood Count 3.75 L Hemoglobin 9.4 L Hematocrit 31.8 L Mean Corpuscular Volume 84.8 Mean Corpuscular Hemoglobin 25.1 L Mean Corpuscular Hemoglobin Concent 29.6 L Red Cell Distribution Width 19.1 H Platelet Count 320 Mean Platelet Volume 11.3 H Neutrophils % 86.4 H Lymphocytes % 6.1 L Monocytes % 5.3 Eosinophils % 1.1 Basophils % 0.2 Nucleated Red Blood Cells % 0.0 Neutrophils # 9.9 H Lymphocytes # 0.7 L Monocytes # 0.6 Eosinophils # 0.1 Basophils # 0.0 Nucleated Red Blood Cells # 0.0 Sodium Level 145 H Potassium Level 4.2 Chloride Level 104 Carbon Dioxide Level 22 Anion Gap 23 H Blood Urea Nitrogen 34 #H Creatinine 1.27 H Glucose Level 208 Calcium Level 9.7 Bedside Glucose 274 H Blood Gas Specimen Source Blood arterial Arterial Blood Date Drawn 05/04/2017 4:38:54 PM Arterial Blood pH (Temp corrected) 7.408 Arterial Blood pCO2 (Temp correct) 34.9 L Arterial Blood pO2 (Temp corrected) 260.1 H Arterial Blood HCO3 21.5 L Arterial Blood Base Excess -2.5 Arterial Blood Oxygen Saturation 99.4 H Tristian Test ACCEPTAB Arterial Blood Gas Puncture Site Left Radial Arterial Blood Carboxyhemoglobin 0.2 Arterial Blood Methemoglobin 0.5 Blood Gas A-a O2 Differential 273.7 H Oxyhemoglobin Percent 98.7 Total Hemoglobin 13.1 Blood Gas Temperature 37.0 Blood Gas Respiration Rate 12.0 Blood Gas Actual Respiration Rate 13 Blood Gas Modality VENT - AC FiO2 80.0 Blood Gas Tidal Volume 500.0 Blood Gas Low PEEP Setting 5.0 Blood Gas Notified Whom LC Blood Gas Notified Time 05/04/2017 4:54:58 PM Test 05/04/17 17:13 Bedside Glucose 187 Medications Medications Current Medications Ondansetron HCl (Zofran Inj) 4 mg Q6H PRN IV NAUSEA AND/OR VOMITING; Start 05/02 at 16:30 Acetaminophen (Tylenol Tab) 650 mg Q6H PRN PO PAIN LEVEL 1-3 OR FEVER Last administered on 05/04/17t 18:08; Admin Dose 650 MG; Start 05/02/17 at 16:30 Acetaminophen/ Hydrocodone Bitart ([place] (5/325)) 1 tab Q6H PRN PO MODERATE PAIN LEVEL 4-6; Start 05/02/17 at 16:30 Morphine Sulfate (morphine) 2 mg Q4H PRN IV SEVERE PAIN LEVEL 7-10; Start at 16:30 Docusate Sodium (Colace) 100 mg Q12H PRN PO CONSTIPATION; Start 05/02/17 at 16: 30 Magnesium Hydroxide (Milk Of Mag) 30 ml DAILY PRN PO CONSTIPATION; Start at 16:30 Sodium Biphosphate/ Sodium Phosphate (Fleet Enema) 133 ml DAILY PRN [place] CONSTIPATION; Start 05/02/17 at 16:30 Lorazepam (Ativan) 0.5 mg Q6H PRN IV ANXIETY; Start 05/02/17 at 16:30 Hydralazine HCl (Apresoline) 10 mg Q6H PRN IV ELEVATED BLOOD PRESSURE; Start at 16:30 Nitroglycerin (Nitroglycerin (Sl Tab) 0.4 Mg) 1 tab Q5M PRN SL ANGINA; Start at 16:30 Ascorbic Acid (Vitamin C) 500 mg Q8 GTB Last administered on 05/04/17 12:38; Admin Dose 500 MG; Start 05/02/17 at 22:00 Baclofen (Lioresal) 20 mg TID GTB Last administered on 05/04/17 12:38; Admin Dose 20 MG; Start 05/02/17 at 21:00 Epoetin Andrey (Epogen (Esrd)) 10,000 units MoWeFr@17 SC Last administered on 05/03 16:13; Admin Dose 10,000 UNITS; Start 05/03/17 at 17:00 Magnesium Oxide (Mag-Ox 400) 800 mg DAILY GTB Last administered on 05/04/17 09: 02; Admin Dose 800 MG; Start 05/03/17 at 09:00 Metoclopramide HCl (Reglan) 10 mg BID GTB Last administered on 05/04/17 09:02; Admin Dose 10 MG; Start 05/02/17 at 21:00 Multivitamins Therapeutic (Theragran) 1 tab DAILY GTB Last administered on 09:02; Admin Dose 1 TAB; Start 05/03/17 at 09:00 Sucralfate (Carafate) 1 gm DAILY GTB Last administered on 05/04/17 09:01; Admin Dose 1 GM; Start 05/03/17 at 09:00 Tramadol HCl (Ultram) 100 mg DAILY GTB Last administered on 05/04/17 09:02; Admin Dose 100 MG; Start 05/03/17 at 09:00 Ferrous Sulfate (Ferrous Sulfate (Ec)) 325 mg BID PO Last administered on 09:01; Admin Dose 325 MG; Start 05/02/17 at 21:00 Insulin Detemir (Levemir) 12 unit QHS SC Last administered on 05/03/17 21:55; Admin Dose 12 UNIT; Start 05/02/17 at 21:00 Insulin Detemir (Levemir) 26 unit DAILY SC Last administered on 05/04/17 09:07 ; Admin Dose 26 UNIT; Start 05/03/17 at 09:00 Insulin Aspart (Novolog Insulin Pen) 15 unit Q6 SC Last administered on 17:23; Admin Dose 15 UNIT; Start 05/02/17 at 18:00 Lansoprazole (Prevacid) 30 mg BID@06,18 GTB Last administered on 05/04/17 17:23 ; Admin Dose 30 MG; Start 05/02/17 at 18:00 Miscellaneous Information 1 ea NOTE XX ; Start 05/02/17 at 16:30 Glucose (Glutose) 15 gm Q15M PRN PO DECREASED GLUCOSE; Start 05/02/17 at 16:30 Glucose (Glutose) 22.5 gm Q15M PRN PO DECREASED GLUCOSE; Start 05/02/17 at 16:30 Dextrose (D50w Syringe) 25 ml Q15M PRN IV DECREASED GLUCOSE; Start 05/02/17 at 16:30 Dextrose (D50w Syringe) 50 ml Q15M PRN IV DECREASED GLUCOSE; Start 05/02/17 at 16:30 Glucagon (Glucagen) 1 mg Q15M PRN IM DECREASED GLUCOSE; Start 05/02/17 at 16:30 Glucose (Glutose) 15 gm Q15M PRN BUCCAL DECREASED GLUCOSE; Start 05/02/17 at 16: 30 Epoetin Andrey (Epogen (Esrd)) 2,000 units MoWeFr@17 SC Last administered on 16:13; Admin Dose 2,000 UNITS; Start 05/03/17 at 17:00 Epoetin Andrey (Epogen (Esrd)) 3,000 units MoWeFr@17 SC Last administered on 16:14; Admin Dose 3,000 UNITS; Start 05/03/17 at 17:00 Miscellaneous Information (Pending [facility] Order For Wound Care) This patient stern... PRN PRN XX WOUND CARE; Start 05/02/17 at 22:30 Trimethoprim/ Sulfamethoxazole 1 tab 1 tab BID GTB Last administered on 8/3/ 17at 09:06; Admin Dose 1 TAB; Start 05/03/17 at 09:00 Dextrose (D5W) 1,000 ml @ 100 mls/hr Q10H IV Last administered on 05/04/17 01: 25; Admin Dose 100 MLS/HR; Start 05/03/17 at 11:30 Collagenase (Santyl) 1 applic DAILY TOP Last administered on 05/04/17 09:03; Admin Dose 1 APPLIC; Start 05/03/17 at 13:00 Sodium Hypochlorite (Dakin'S (Dilute 1/40%)) 1 applic BID IRR Last administered on 05/04/17 09:02; Admin Dose 1 APPLIC; Start 05/03/17 at 15:00 Nystatin 1 applic 1 applic BID TOP Last administered on 05/04/17 09:01; Admin Dose 1 APPLIC; Start 05/03/17 at 14:30 Meropenem/Sodium Chloride (Merrem 1 Gm/50 ml (Pmx)) 50 ml @ 100 mls/hr Q12 IVPB Last administered on 05/04/17 12:37; Admin Dose 100 MLS/HR; Start 05/04/17 at 12:30 SANFORD RODRIGUEZ NP May 04, 2017 21:15
[2017-05-05] VITALS (25 sets, daily range): BP systolic 115–137; BP diastolic 60–89; PULSE 102–136; RESP 12–25
[2017-05-05] MEDS: INSULIN ASPART [NOVOLOG] 3 ML PEN SC SCH ×4 (00:33→17:31)
[2017-05-05] MEDS: ACETAMINOPHEN 325 MG TAB PO PRN (01:01)
[2017-05-05] MEDS: DEXTROSE 5% 1,000 ML IV SCH (03:08)
[2017-05-05] MEDS: LANSOPRAZOLE 30 MG CAP GTB SCH ×2 (06:42→17:26)
[2017-05-05] MEDS: ASCORBIC ACID 500 MG TAB GTB SCH ×3 (06:42→21:47)
[2017-05-05] MEDS: NYSTATIN 30 GM POWDER BTL TOP SCH ×2 (09:00→21:48)
[2017-05-05] MEDS: SODIUM HYPOCHLORITE 1/40% 1L IRRIG IRR SCH ×2 (09:00→21:33)
[2017-05-05] MEDS: traMADol 50 MG TAB GTB SCH (09:00)
[2017-05-05] MEDS: COLLAGENASE 30 GM TUBE TOP SCH (09:00)
[2017-05-05 09:20] LABS: BASOPHILS % 0.2 % (0.0-2.0); EOSINOPHILS # 0.1 10^3/ul (0.0-0.5); EOSINOPHILS % 0.6 % (0.0-7.0); HEMATOCRIT 33.3 % (37.0-47.0); HEMOGLOBIN 9.8 g/dl (12.0-16.0); LYMPHOCYTES # 0.9 10^3/ul (0.8-2.9); MEAN CORPUSCULAR HEMOGLOBIN 24.7 pg (29.0-33.0); MEAN CORPUSCULAR HGB CONC 29.4 g/dl (32.0-37.0); MEAN CORPUSCULAR VOLUME 83.9 fl (82.0-101.0); MONOCYTE # 0.5 10^3/ul (0.3-0.9); NEUTROPHILS % 84.8 % (39.0-77.0); PLATELET COUNT 300 10^3/UL (140-415); RED BLOOD COUNT 3.97 10^6/ul (4.20-5.40); RED CELL DISTRIBUTION WIDTH 18.7 % (11.5-14.5); WHITE BLOOD COUNT 9.5 10^3/ul (4.8-10.8)
[2017-05-05 09:36] LABS: CREATININE 1.24 mg/dl (0.44-1.00); POTASSIUM 4.2 mmol/L (3.5-5.1)
[2017-05-05] MEDS: FERROUS SULFATE (EC) 325 MG TAB PO SCH ×2 (10:51→21:25)
[2017-05-05] MEDS: MAGNESIUM OXIDE 400 MG TAB GTB SCH (10:51)
[2017-05-05] MEDS: METOCLOPRAMIDE 10 MG TAB GTB SCH ×2 (10:51→21:25)
[2017-05-05] MEDS: MULTIVITAMINS THERAPEUTIC TAB GTB SCH (10:51)
[2017-05-05] MEDS: SUCRALFATE 1 GM TAB GTB SCH (10:51)
[2017-05-05] MEDS: BACLOFEN 10 MG TAB GTB SCH ×3 (10:51→21:25)
[2017-05-05] MEDS: TRIMETHOPRIM/SULFAMETHOX (DS) TAB GTB SCH ×2 (10:51→21:25)
[2017-05-05] MEDS: MEROPENEM 1 GM/50ML(PMX) 50 ML IVPB SCH ×2 (10:52→21:25)
[2017-05-05] MEDS: INSULIN DETEMIR [LEVEMIR] 3ML CART SC SCH ×2 (10:58→21:33)
--- NOTE | 2017-05-05 11:57 | PN ---
Date/Time of Note Date/Time of Note DATE: 05/05/17 TIME: 11:53 Assessment/Plan VTE Prophylaxis VTE Prophylaxis Intervention: SCD's Lines/Catheters IV Catheter Type (from [facility]): Peripheral IV Urinary Cath still in place: Yes Reason Cath still needed: urinary retention Assessment/Plan Chief Complaint/Hosp Course Assessment and plan:56-year-old female with a history of chronic hypoxic respiratory failure status post tracheostomy, vent dependent, prior CVA, multiple sclerosis, no functional quadriplegia, anoxic encephalopathy, anemia, diabetes mellitus type 2, nontoxic megacolon, hypertension, dyslipidemia, chronic kidney disease and sepsis sent to the ED by ambulance from [facility] for evaluation of worsening anemia, status post blood transfusion 1. Anemia: Status post PRBC transfusion 2 days ago, hemoglobin stable today, and cauterization of bleeding sacral ulcer was performed yesterday. - Continue Epogen, monitor CBC, and for any further bleeding 2. Chronic hypoxic respiratory failure: Chest x-ray now shows signs of pneumonia. History of tracheostomy. -Continue broad-spectrum antibiotics, follow-up pulmonary recommended, continue oxygen supplementation via trach 3. Multiple sclerosis: Monitor for now 4. History of anoxic encephalopathy: Monitor for now 5. Type 2 diabetes: Sugars were elevated in the last 24 hour secondary to being on sugar fluids. -Since sodium is normal now, DC D5W. Continue Levemir and sliding scale. 6. Hypertension: Blood pressure stable, continue hydralazine IV as needed systolic greater than 160 7. Chronic kidney disease: Monitor ins and outs and daily BUN/creatinine levels 8. Prior history of UTI: Monitor for now, no signs of any fevers 9. History of decubitus ulcers: Appreciate wound care nurse consult, will follow the recommendations for treatment of multiple decubitus ulcers. 10. GI prophylaxis: Prevacid 11. Hypernatremia: Now resolved, will discontinue D5W, follow-up sodium levels in the a.m. 12. MARIE: Creatinine trending down -monitor urine output, and BUN and creatinine levels in the morning. 13. Slightly distended abdomen: We will check KUB Problems: Subjective 24 Hr Interval Summary Free Text/Dictation Discharge was held yesterday because of hypoxia and tachycardia. Patient with less oxygen requirements today. Seen by surgery team yesterday and had cauterization of her bleeding sacral ulcers. No acute events overnight. Exam/Review of Systems Vital Signs Vitals Vital Signs Date Time Temp Pulse Resp B/P Pulse Ox O2 Delivery O2 Flow Rate FiO2 05/05/17 11:44 98.2 121 19 121/62 99 05/05/17 11:20 35 05/02/17 17:24 Mechanical Ventilator Intake and Output 05/04/17 05/04/17 05/05/17 15:00 23:00 07:00 Intake Total 50 ml 800 ml 500 ml Output Total 1500 ml Balance 50 ml 800 ml -1000 ml Exam Const: Chronically ill-appearing, eyes open but unresponsive Head: Atraumatic Eyes: Normal Conjunctiva ENT: Normal External Ears, Nose and Mouth. Mucous membranes are dry Neck: Full range of motion. Tracheostomy site clean without erythema, induration or drainage Resp: Lightly diminished bilaterally with assisted ventilation. No wheezing Cardio: Regular rate and rhythm, no murmurs Abd: Soft, slightly firm, slightly distended. Decreased bowel sounds. G- tube site without erythema, induration or drainage. Rectal examination: Brown stool. Skin: No petechiae or rashes. Decubiti. Back: No midline or flank tenderness Ext: No cyanosis, or edema. Some muscle atrophy. Contractures Neur: Awake and alert. Functional quadriplegia Results Result Diagram: 05/05/17 0845 05/05/17 0845 Results 24 hrs Laboratory Tests Test 05/04/17 12:35 05/04/17 15:25 05/04/17 17:13 05/04/17 22:00 Bedside Glucose 274 H 187 241 H Blood Gas Specimen Source Blood arterial Arterial Blood Date Drawn 05/04/2017 4:38:54 PM Arterial Blood pH (Temp corrected) 7.408 Arterial Blood pCO2 (Temp correct) 34.9 L Arterial Blood pO2 (Temp corrected) 260.1 H Arterial Blood HCO3 21.5 L Arterial Blood Base Excess -2.5 Arterial Blood Oxygen Saturation 99.4 H Tristian Test ACCEPTAB Arterial Blood Gas Puncture Site Left Radial Arterial Blood Carboxyhemoglobin 0.2 Arterial Blood Methemoglobin 0.5 Blood Gas A-a O2 Differential 273.7 H Oxyhemoglobin Percent 98.7 Total Hemoglobin 13.1 Blood Gas Temperature 37.0 Blood Gas Respiration Rate 12.0 Blood Gas Actual Respiration Rate 13 Blood Gas Modality VENT - AC FiO2 80.0 Blood Gas Tidal Volume 500.0 Blood Gas Low PEEP Setting 5.0 Blood Gas Notified Whom Blood Gas Notified Time 05/04/2017 4:54:58 PM Test 05/05/17 00:31 05/05/17 06:43 05/05/17 08:45 05/05/17 10:56 Bedside Glucose 277 H 328 H 308 H White Blood Count 9.5 Red Blood Count 3.97 L Hemoglobin 9.8 L Hematocrit 33.3 L Mean Corpuscular Volume 83.9 Mean Corpuscular Hemoglobin 24.7 L Mean Corpuscular Hemoglobin Concent 29.4 L Red Cell Distribution Width 18.7 H Platelet Count 300 Mean Platelet Volume 11.0 H Neutrophils % 84.8 H Lymphocytes % 9.0 L Monocytes % 5.0 Eosinophils % 0.6 Basophils % 0.2 Nucleated Red Blood Cells % 0.0 Neutrophils # 8.0 H Lymphocytes # 0.9 Monocytes # 0.5 Eosinophils # 0.1 Basophils # 0.0 Nucleated Red Blood Cells # 0.0 Sodium Level 142 Potassium Level 4.2 Chloride Level 102 Carbon Dioxide Level 20 L Anion Gap 24 H Blood Urea Nitrogen 22 #H Creatinine 1.24 H Glucose Level 305 H Calcium Level 10.0 Medications Medications Current Medications Ondansetron HCl (Zofran Inj) 4 mg Q6H PRN IV NAUSEA AND/OR VOMITING; Start 05/02 at 16:30 Acetaminophen (Tylenol Tab) 650 mg Q6H PRN PO PAIN LEVEL 1-3 OR FEVER Last administered on 05/05/17 01:01; Admin Dose 650 MG; Start 05/02/17 at 16:30 Acetaminophen/ Hydrocodone Bitart ([place] (5/325)) 1 tab Q6H PRN PO MODERATE PAIN LEVEL 4-6; Start 05/02/17 at 16:30 Morphine Sulfate (morphine) 2 mg Q4H PRN IV SEVERE PAIN LEVEL 7-10 Last administered on 05/05/17 03:54; Admin Dose 2 MG; Start 05/02/17 at 16:30 Docusate Sodium (Colace) 100 mg Q12H PRN PO CONSTIPATION; Start 05/02/17 at 16: 30 Magnesium Hydroxide (Milk Of Mag) 30 ml DAILY PRN PO CONSTIPATION; Start at 16:30 Sodium Biphosphate/ Sodium Phosphate (Fleet Enema) 133 ml DAILY PRN [place] CONSTIPATION; Start 05/02/17 at 16:30 Lorazepam (Ativan) 0.5 mg Q6H PRN IV ANXIETY; Start 05/02/17 at 16:30 Hydralazine HCl (Apresoline) 10 mg Q6H PRN IV ELEVATED BLOOD PRESSURE; Start at 16:30 Nitroglycerin (Nitroglycerin (Sl Tab) 0.4 Mg) 1 tab Q5M PRN SL ANGINA; Start at 16:30 Ascorbic Acid (Vitamin C) 500 mg Q8 GTB Last administered on 05/05/17 06:42; Admin Dose 500 MG; Start 05/02/17 at 22:00 Baclofen (Lioresal) 20 mg TID GTB Last administered on 05/05/17 10:51; Admin Dose 20 MG; Start 05/02/17 at 21:00 Epoetin Andrey (Epogen (Esrd)) 10,000 units MoWeFr@17 SC Last administered on 05/03 16:13; Admin Dose 10,000 UNITS; Start 05/03/17 at 17:00 Magnesium Oxide (Mag-Ox 400) 800 mg DAILY GTB Last administered on 05/05/17 10: 51; Admin Dose 800 MG; Start 05/03/17 at 09:00 Metoclopramide HCl (Reglan) 10 mg BID GTB Last administered on 05/05/17 10:51; Admin Dose 10 MG; Start 05/02/17 at 21:00 Multivitamins Therapeutic (Theragran) 1 tab DAILY GTB Last administered on 10:51; Admin Dose 1 TAB; Start 05/03/17 at 09:00 Sucralfate (Carafate) 1 gm DAILY GTB Last administered on 05/05/17 10:51; Admin Dose 1 GM; Start 05/03/17 at 09:00 Tramadol HCl (Ultram) 100 mg DAILY GTB Last administered on 05/04/17 09:02; Admin Dose 100 MG; Start 05/03/17 at 09:00 Ferrous Sulfate (Ferrous Sulfate (Ec)) 325 mg BID PO Last administered on 10:51; Admin Dose 325 MG; Start 05/02/17 at 21:00 Insulin Detemir (Levemir) 12 unit QHS SC Last administered on 05/04/17 22:04; Admin Dose 12 UNIT; Start 05/02/17 at 21:00 Insulin Detemir (Levemir) 26 unit DAILY SC Last administered on 05/05/17 10:58 ; Admin Dose 26 UNIT; Start 05/03/17 at 09:00 Insulin Aspart (Novolog Insulin Pen) 15 unit Q6 SC Last administered on 10:59; Admin Dose 15 UNIT; Start 05/02/17 at 18:00 Lansoprazole (Prevacid) 30 mg BID@06,18 GTB Last administered on 05/05/17 06:42 ; Admin Dose 30 MG; Start 05/02/17 at 18:00 Miscellaneous Information 1 ea NOTE XX ; Start 05/02/17 at 16:30 Glucose (Glutose) 15 gm Q15M PRN PO DECREASED GLUCOSE; Start 05/02/17 at 16:30 Glucose (Glutose) 22.5 gm Q15M PRN PO DECREASED GLUCOSE; Start 05/02/17 at 16:30 Dextrose (D50w Syringe) 25 ml Q15M PRN IV DECREASED GLUCOSE; Start 05/02/17 at 16:30 Dextrose (D50w Syringe) 50 ml Q15M PRN IV DECREASED GLUCOSE; Start 05/02/17 at 16:30 Glucagon (Glucagen) 1 mg Q15M PRN IM DECREASED GLUCOSE; Start 05/02/17 at 16:30 Glucose (Glutose) 15 gm Q15M PRN BUCCAL DECREASED GLUCOSE; Start 05/02/17 at 16: 30 Epoetin Andrey (Epogen (Esrd)) 2,000 units MoWeFr@17 SC Last administered on 16:13; Admin Dose 2,000 UNITS; Start 05/03/17 at 17:00 Epoetin Andrey (Epogen (Esrd)) 3,000 units MoWeFr@17 SC Last administered on 16:14; Admin Dose 3,000 UNITS; Start 05/03/17 at 17:00 Miscellaneous Information (Pending [facility] Order For Wound Care) This patient stern... PRN PRN XX WOUND CARE; Start 05/02/17 at 22:30 Trimethoprim/ Sulfamethoxazole (Bactrim (Ds)) 1 tab BID GTB Last administered on 05/05/17 10:51; Admin Dose 1 TAB; Start 05/03/17 at 09:00 Collagenase (Santyl) 1 applic DAILY TOP Last administered on 05/05/17 09:00; Admin Dose 1 APPLIC; Start 05/03/17 at 13:00 Sodium Hypochlorite (Dakin'S (Dilute 1/40%)) 1 applic BID IRR Last administered on 05/05/17 09:00; Admin Dose 1 APPLIC; Start 05/03/17 at 15:00 Nystatin 1 applic 1 applic BID TOP Last administered on 05/05/17 09:00; Admin Dose 1 APPLIC; Start 05/03/17 at 14:30 Meropenem/Sodium Chloride 50 ml @ 100 mls/hr Q12 IVPB Last administered on 05/05 10:52; Admin Dose 100 MLS/HR; Start 05/04/17 at 12:30 Levofloxacin/ Dextrose (Levaquin 750 Mg/ D5W 150 ml (Pmx)) 150 ml @ 100 mls/hr Q24H IVPB ; Start 05/05/17 at 12:00; Status ASHLEY NIETO May 05, 2017 11:57
[2017-05-05] MEDS ORDERED: TOBRAMYCIN IV PER PHARMACY XX SCH (12:00)
[2017-05-05] MEDS ORDERED: LEVOFLOXACIN 750MG/D5W (PMX) 150 ML IVPB SCH (12:00)
--- NOTE | 2017-05-05 12:16 | PN ---
Date/Time of Note Date/Time of Note DATE: 05/05/17 TIME: 12:11 Assessment/Plan Lines/Catheters IV Catheter Type (from [facility]): Peripheral IV Munoz in Place (from [facility]): Yes Assessment/Plan Chief Complaint/Hosp Course 1. Multiple wounds: sacrococcyx stage 4: s/p chemical cautery ; no bleeding noted -close monitoring for bleeding -gentle wound care -frequent turning and offloading -specialty mattress -vitamin C and short term zinc 2. Anemia: s/p transfusion: stable 3. UTI: -abx per sensitivities 4. Pneumonia: -pulmonary toilet -abx per sensitivity 5. Leukocytosis: 2/2 #3+#4; normalized -as above 6. Diabetes: -blood sugar optimization 7. Electrolyte imbalance (hypercalcemia, hypermagnesemia); improving -electrolyte optimization 8. VDRF -supportive Patient seen and examined in collaboration with Dr. Hi High. Thank you. Problems: Subjective 24 Hr Interval Summary No no bleed noted from sacrum. Comfortable on vent. No sob, cough, fevers, chills, n/v/d, sz. Exam/Review of Systems Vital Signs Vitals Vital Signs Date Time Temp Pulse Resp B/P Pulse Ox O2 Delivery O2 Flow Rate FiO2 05/05/17 11:44 98.2 121 19 121/62 99 05/05/17 11:20 35 05/02/17 17:24 Mechanical Ventilator Intake and Output 05/04/17 05/04/17 05/05/17 15:00 23:00 07:00 Intake Total 50 ml 800 ml 500 ml Output Total 1500 ml Balance 50 ml 800 ml -1000 ml Exam Free Text/Dictation Constitutional: alert, non-verbal, other (withdraws from pain) Head: atraumatic, normocephalic Eyes: PERRL, nl lids, nl sclera ENMT: mucosa pink and moist Neck: non-tender, supple Respiratory: normal air movement, No congested cough Cardiovascular: nl pulses, regular rate and rhythm, No edema Gastrointestinal: non-tender, soft Genitourinary - Female: nl external genitalia, other (munoz with cloudy urine) Musculoskeletal: No muscle tone, No nl gait and stance Extremities: normal pulses, No edema Neurological: confused Skin: other (multiple wounds: sacral wound with red woundbed, no bleeding areas noted), No rash or lesions Results Result Diagram: 05/05/17 0845 05/05/17 0845 SANFORD RODRIGUEZ NP May 05, 2017 12:16
[2017-05-05] MEDS ORDERED: TOBRAMYCIN 250 MG in SOD CHLORIDE 0.9% 100 ML IVPB SCH (13:00)
[2017-05-05] MEDS: SOD CHLORIDE 0.45% 1,000 ML IV SCH (13:15)
--- NOTE | 2017-05-05 14:01 | CONS ---
Date/Time of Note Date/Time of Note DATE: 05/05/17 TIME: 13:59 Assessment/Plan Assessment/Plan Additional Assessment/Plan Ventilator setting; AC of 12, tidal volume 500, PEEP of 5, 30% FiO2. Chest x-ray was reviewed from yesterday which is essentially unremarkable. Assessment and recommendations; 1. Patient admitted for UTI with clinical improvement. 2. Multiple sclerosis with advanced dementia, patient with chronic respiratory failure. Continue current treatment. Consultation Date/Type/Reason Admit Date/Time May 02, 2017 at 13:31 Initial Consult Date 05/03/17 Type of Consultation: Pulmonary Referring Provider: ASHLEY EMERY 24 HR Interval Summary Free Text/Dictation Patient condition remains stable. Remains unresponsive. Remains chronically ventilator dependent. Has remained hemodynamically stable. General exam; middle-aged woman, on ventilator via tracheostomy, currently in no distress. Remains unresponsive. Exam/Review of Systems Vital Signs Vitals Vital Signs Date Time Temp Pulse Resp B/P Pulse Ox O2 Delivery O2 Flow Rate FiO2 05/05/17 13:05 113 15 99 35 05/05/17 11:44 98.2 121/62 05/02/17 17:24 Mechanical Ventilator Intake and Output 05/04/17 05/04/17 05/05/17 15:00 23:00 07:00 Intake Total 50 ml 800 ml 500 ml Output Total 1500 ml Balance 50 ml 800 ml -1000 ml Exam HEENT exam; supple neck, no JVD. No lymphadenopathy. Midline trachea. No thyromegaly. Tracheostomy in place. Chest exam; clear to auscultation. S1-S2 audible, no murmurs. Regular rhythm. Abdomen exam; soft, G-tube in place. Bowel sounds audible. No organomegaly. Extremity exam; no edema. Patient does have contractures involving all 4 extremities. PROTEIN SPECIALIST exam; patient remains unresponsive. Results Result Diagram: 05/05/17 0845 05/05/17 0845 Results 24 hrs Laboratory Tests Test 05/04/17 15:25 05/04/17 17:13 05/04/17 22:00 05/05/17 00:31 Blood Gas Specimen Source Blood arterial Arterial Blood Date Drawn 05/04/2017 4:38:54 PM Arterial Blood pH (Temp corrected) 7.408 Arterial Blood pCO2 (Temp correct) 34.9 L Arterial Blood pO2 (Temp corrected) 260.1 H Arterial Blood HCO3 21.5 L Arterial Blood Base Excess -2.5 Arterial Blood Oxygen Saturation 99.4 H Tristian Test ACCEPTAB Arterial Blood Gas Puncture Site Left Radial Arterial Blood Carboxyhemoglobin 0.2 Arterial Blood Methemoglobin 0.5 Blood Gas A-a O2 Differential 273.7 H Oxyhemoglobin Percent 98.7 Total Hemoglobin 13.1 Blood Gas Temperature 37.0 Blood Gas Respiration Rate 12.0 Blood Gas Actual Respiration Rate 13 Blood Gas Modality VENT - AC FiO2 80.0 Blood Gas Tidal Volume 500.0 Blood Gas Low PEEP Setting 5.0 Blood Gas Notified Whom LC Blood Gas Notified Time 05/04/2017 4:54:58 PM Bedside Glucose 187 241 H 277 H Test 05/05/17 06:43 05/05/17 08:45 05/05/17 10:56 Bedside Glucose 328 H 308 H White Blood Count 9.5 Red Blood Count 3.97 L Hemoglobin 9.8 L Hematocrit 33.3 L Mean Corpuscular Volume 83.9 Mean Corpuscular Hemoglobin 24.7 L Mean Corpuscular Hemoglobin Concent 29.4 L Red Cell Distribution Width 18.7 H Platelet Count 300 Mean Platelet Volume 11.0 H Neutrophils % 84.8 H Lymphocytes % 9.0 L Monocytes % 5.0 Eosinophils % 0.6 Basophils % 0.2 Nucleated Red Blood Cells % 0.0 Neutrophils # 8.0 H Lymphocytes # 0.9 Monocytes # 0.5 Eosinophils # 0.1 Basophils # 0.0 Nucleated Red Blood Cells # 0.0 Sodium Level 142 Potassium Level 4.2 Chloride Level 102 Carbon Dioxide Level 20 L Anion Gap 24 H Blood Urea Nitrogen 22 #H Creatinine 1.24 H Glucose Level 305 H Calcium Level 10.0 Medications Medications Current Medications Ondansetron HCl (Zofran Inj) 4 mg Q6H PRN IV NAUSEA AND/OR VOMITING; Start 05/02 at 16:30 Acetaminophen (Tylenol Tab) 650 mg Q6H PRN PO PAIN LEVEL 1-3 OR FEVER Last administered on 05/05/17t 01:01; Admin Dose 650 MG; Start 05/02/17 at 16:30 Acetaminophen/ Hydrocodone Bitart ([place] (5/325)) 1 tab Q6H PRN PO MODERATE PAIN LEVEL 4-6; Start 05/02/17 at 16:30 Morphine Sulfate (morphine) 2 mg Q4H PRN IV SEVERE PAIN LEVEL 7-10 Last administered on 05/05/17 03:54; Admin Dose 2 MG; Start 05/02/17 at 16:30 Docusate Sodium (Colace) 100 mg Q12H PRN PO CONSTIPATION; Start 05/02/17 at 16: 30 Magnesium Hydroxide (Milk Of Mag) 30 ml DAILY PRN PO CONSTIPATION; Start at 16:30 Sodium Biphosphate/ Sodium Phosphate (Fleet Enema) 133 ml DAILY PRN [place] CONSTIPATION; Start 05/02/17 at 16:30 Lorazepam (Ativan) 0.5 mg Q6H PRN IV ANXIETY; Start 05/02/17 at 16:30 Hydralazine HCl (Apresoline) 10 mg Q6H PRN IV ELEVATED BLOOD PRESSURE; Start at 16:30 Nitroglycerin (Nitroglycerin (Sl Tab) 0.4 Mg) 1 tab Q5M PRN SL ANGINA; Start at 16:30 Ascorbic Acid (Vitamin C) 500 mg Q8 GTB Last administered on 05/05/17 13:37; Admin Dose 500 MG; Start 05/02/17 at 22:00 Baclofen (Lioresal) 20 mg TID GTB Last administered on 05/05/17 13:37; Admin Dose 20 MG; Start 05/02/17 at 21:00 Epoetin Andrey (Epogen (Esrd)) 10,000 units MoWeFr@17 SC Last administered on 05/03 16:13; Admin Dose 10,000 UNITS; Start 05/03/17 at 17:00 Magnesium Oxide (Mag-Ox 400) 800 mg DAILY GTB Last administered on 05/05/17 10: 51; Admin Dose 800 MG; Start 05/03/17 at 09:00 Metoclopramide HCl (Reglan) 10 mg BID GTB Last administered on 05/05/17 10:51; Admin Dose 10 MG; Start 05/02/17 at 21:00 Multivitamins Therapeutic (Theragran) 1 tab DAILY GTB Last administered on 10:51; Admin Dose 1 TAB; Start 05/03/17 at 09:00 Sucralfate (Carafate) 1 gm DAILY GTB Last administered on 05/05/17 10:51; Admin Dose 1 GM; Start 05/03/17 at 09:00 Tramadol HCl (Ultram) 100 mg DAILY GTB Last administered on 05/04/17 09:02; Admin Dose 100 MG; Start 05/03/17 at 09:00 Ferrous Sulfate (Ferrous Sulfate (Ec)) 325 mg BID PO Last administered on 10:51; Admin Dose 325 MG; Start 05/02/17 at 21:00 Insulin Detemir (Levemir) 12 unit QHS SC Last administered on 05/04/17 22:04; Admin Dose 12 UNIT; Start 05/02/17 at 21:00 Insulin Detemir (Levemir) 26 unit DAILY SC Last administered on 05/05/17 10:58 ; Admin Dose 26 UNIT; Start 05/03/17 at 09:00 Insulin Aspart (Novolog Insulin Pen) 15 unit Q6 SC Last administered on 10:59; Admin Dose 15 UNIT; Start 05/02/17 at 18:00 Lansoprazole (Prevacid) 30 mg BID@,18 GTB Last administered on 05/05/17 06:42 ; Admin Dose 30 MG; Start 05/02/17 at 18:00 Miscellaneous Information 1 ea NOTE XX ; Start 05/02/17 at 16:30 Glucose (Glutose) 15 gm Q15M PRN PO DECREASED GLUCOSE; Start 05/02/17 at 16:30 Glucose (Glutose) 22.5 gm Q15M PRN PO DECREASED GLUCOSE; Start 05/02/17 at 16:30 Dextrose (D50w Syringe) 25 ml Q15M PRN IV DECREASED GLUCOSE; Start 05/02/17 at 16:30 Dextrose (D50w Syringe) 50 ml Q15M PRN IV DECREASED GLUCOSE; Start 05/02/17 at 16:30 Glucagon (Glucagen) 1 mg Q15M PRN IM DECREASED GLUCOSE; Start 05/02/17 at 16:30 Glucose (Glutose) 15 gm Q15M PRN BUCCAL DECREASED GLUCOSE; Start 05/02/17 at 16: 30 Epoetin Andrey (Epogen (Esrd)) 2,000 units MoWeFr@17 SC Last administered on 16:13; Admin Dose 2,000 UNITS; Start 05/03/17 at 17:00 Epoetin Andrey (Epogen (Esrd)) 3,000 units MoWeFr@17 SC Last administered on 16:14; Admin Dose 3,000 UNITS; Start 05/03/17 at 17:00 Miscellaneous Information (Pending Santyl Order For Wound Care) This patient stern... PRN PRN XX WOUND CARE; Start 05/02/17 at 22:30 Trimethoprim/ Sulfamethoxazole (Bactrim (Ds)) 1 tab BID GTB Last administered on 05/05/17 10:51; Admin Dose 1 TAB; Start 05/03/17 at 09:00 Collagenase (Santyl) 1 applic DAILY TOP Last administered on 05/05/17 09:00; Admin Dose 1 APPLIC; Start 05/03/17 at 13:00 Sodium Hypochlorite (Dakin'S (Dilute 1/40%)) 1 applic BID IRR Last administered on 05/05/17 09:00; Admin Dose 1 APPLIC; Start 05/03/17 at 15:00 Nystatin 1 applic 1 applic BID TOP Last administered on 05/05/17 09:00; Admin Dose 1 APPLIC; Start 05/03/17 at 14:30 Meropenem/Sodium Chloride 50 ml @ 100 mls/hr Q12 IVPB Last administered on 05/05 10:52; Admin Dose 100 MLS/HR; Start 05/04/17 at 12:30 Sodium Chloride (1/2 NS) 1,000 ml @ 75 mls/hr [id number] IV Last administered on 05/05/17 13:15; Admin Dose 75 MLS/HR; Start 05/05/17 at 12:00 Tobramycin PER PHARMACY DOSING NOTE XX ; Start 05/05/17 at 12:00 Tobramycin/Sodium Chloride (Tobramycin/NS) 106.25 ml @ 103.75 mls/hr Q36H IVPB Last administered on 05/05/17 13:37; Admin Dose 103.75 MLS/HR; Start 05/05/17 at 13:00 ARYAN COLLADO May 05, 2017 14:01
--- NOTE | 2017-05-05 14:23 | RADRPT ---
PROCEDURE: Abdominal radiograph. CLINICAL INDICATION: Distension. COMPARISON: Radiograph from 11/22/2016. TECHNIQUE: AP abdomen x-ray. FINDINGS: Percutaneous gastrostomy tube. The stomach is distended with air. The transverse colon is distended with air is 7.2 cm. The sigmoid colon is distended with air to 7.5 cm. Several loops of small bowel in the left lower quadrant are distended with air to 3 cm. IMPRESSION: Moderate grade large and small bowel obstruction. RPTAT: PP Physician Amy Date Time Electronically viewed and signed by Physician Amy on 05/05/2017 14:23 LG/
[2017-05-05] MEDS: EPOETIN 2000 UNITS/1 ML INJ (ESRD) SC SCH (17:27)
[2017-05-05] MEDS: EPOETIN 10000 UNITS/1 ML INJ (ESRD) SC SCH (17:28)
[2017-05-05] MEDS: EPOETIN 3000 UNITS/1 ML INJ (ESRD) SC SCH (17:29)
[2017-05-06] VITALS (24 sets, daily range): BP systolic 92–121; BP diastolic 50–77; PULSE 80–134; RESP 12–19
[2017-05-06] MEDS: INSULIN ASPART [NOVOLOG] 3 ML PEN SC SCH ×3 (00:32→18:18)
[2017-05-06] MEDS: SOD CHLORIDE 0.45% 1,000 ML IV SCH ×2 (03:05→18:16)
[2017-05-06] MEDS: LANSOPRAZOLE 30 MG CAP GTB SCH ×2 (05:47→18:00)
[2017-05-06] MEDS: ASCORBIC ACID 500 MG TAB GTB SCH ×3 (05:47→21:04)
[2017-05-06 07:15] LABS: MAGNESIUM 2.3 mg/dl (1.7-2.5); PHOSPHORUS 3.7 mg/dl (2.5-4.9)
[2017-05-06 07:48] LABS: BASOPHILS % 0.2 % (0.0-2.0); EOSINOPHILS # 0.2 10^3/ul (0.0-0.5); EOSINOPHILS % 1.8 % (0.0-7.0); HEMOGLOBIN 9.3 g/dl (12.0-16.0); LYMPHOCYTES % 9.9 % (15.0-51.0); MEAN CORPUSCULAR HEMOGLOBIN 25.6 pg (29.0-33.0); MEAN CORPUSCULAR VOLUME 82.6 fl (82.0-101.0); MEAN PLATELET VOLUME 10.7 fl (7.4-10.4); MONOCYTE # 0.6 10^3/ul (0.3-0.9); MONOCYTES % 5.9 % (0.0-11.0); NEUTROPHIL # 7.8 10^3/ul (1.6-7.5); NEUTROPHILS % 81.6 % (39.0-77.0); PLATELET COUNT 320 10^3/UL (140-415); RED BLOOD COUNT 3.63 10^6/ul (4.20-5.40); RED CELL DISTRIBUTION WIDTH 18.1 % (11.5-14.5); WHITE BLOOD COUNT 9.6 10^3/ul (4.8-10.8)
[2017-05-06 08:55] LABS: CALCIUM 9.8 mg/dl (8.4-10.2); CREATININE 1.05 mg/dl (0.44-1.00); POTASSIUM 3.5 mmol/L (3.5-5.1)
[2017-05-06] MEDS: MAGNESIUM OXIDE 400 MG TAB GTB SCH (09:35)
[2017-05-06] MEDS: METOCLOPRAMIDE 10 MG TAB GTB SCH ×2 (09:36→21:00)
[2017-05-06] MEDS: FERROUS SULFATE (EC) 325 MG TAB PO SCH ×2 (09:36→21:00)
[2017-05-06] MEDS: SUCRALFATE 1 GM TAB GTB SCH (09:36)
[2017-05-06] MEDS: MULTIVITAMINS THERAPEUTIC TAB GTB SCH (09:36)
[2017-05-06] MEDS: TRIMETHOPRIM/SULFAMETHOX (DS) TAB GTB SCH ×2 (09:36→21:00)
[2017-05-06] MEDS: traMADol 50 MG TAB GTB SCH (09:36)
[2017-05-06] MEDS: MEROPENEM 1 GM/50ML(PMX) 50 ML IVPB SCH ×2 (09:36→21:50)
[2017-05-06] MEDS: BACLOFEN 10 MG TAB GTB SCH ×3 (09:36→21:00)
[2017-05-06] MEDS: COLLAGENASE 30 GM TUBE TOP SCH (09:37)
[2017-05-06] MEDS: SODIUM HYPOCHLORITE 1/40% 1L IRRIG IRR SCH ×2 (09:37→21:52)
[2017-05-06] MEDS: NYSTATIN 30 GM POWDER BTL TOP SCH ×2 (09:37→21:53)
[2017-05-06] MEDS: INSULIN DETEMIR [LEVEMIR] 3ML CART SC SCH ×2 (09:45→22:35)
[2017-05-06] MEDS ORDERED: morphine 2 MG INJ IV PRN (12:00)
--- NOTE | 2017-05-06 12:31 | PN ---
Date/Time of Note Date/Time of Note DATE: 05/06/17 TIME: 12:26 Assessment/Plan VTE Prophylaxis VTE Prophylaxis Intervention: SCD's Lines/Catheters IV Catheter Type (from Nrs): Peripheral IV Urinary Cath still in place: Yes Reason Cath still needed: urinary retention Assessment/Plan Chief Complaint/Hosp Course Assessment and plan:56-year-old female with a history of chronic hypoxic respiratory failure status post tracheostomy, vent dependent, prior CVA, multiple sclerosis, no functional quadriplegia, anoxic encephalopathy, anemia, diabetes mellitus type 2, nontoxic megacolon, hypertension, dyslipidemia, chronic kidney disease and sepsis sent to the ED by ambulance from [facility] for evaluation of worsening anemia, status post blood transfusion. 1. Anemia: Status post PRBC transfusion 3 days ago, hemoglobin stable today, and cauterization of bleeding sacral ulcer was performed 2 days ago. - Continue Epogen, monitor CBC, and for any further bleeding 2. Chronic hypoxic respiratory failure: Chest x-ray now shows signs of pneumonia. History of tracheostomy. -Continue broad-spectrum antibiotics, follow-up pulmonary recommended, continue oxygen supplementation via trach 3. Multiple sclerosis: Monitor for now 4. History of anoxic encephalopathy: Monitor for now 5. Type 2 diabetes: Sugars improved now. - Continue Levemir and sliding scale. 6. Hypertension: Blood pressure stable, continue hydralazine IV as needed systolic greater than 160 7. Chronic kidney disease: Monitor ins and outs and daily BUN/creatinine levels 8. Prior history of UTI: Monitor for now, no signs of any fevers 9. History of decubitus ulcers: Appreciate wound care nurse consult, will follow the recommendations for treatment of multiple decubitus ulcers. 10. GI prophylaxis: Prevacid 11. MARIE: Creatinine trending down -monitor urine output, and BUN and creatinine levels in the morning. 12. SBO: Found on KUB, will immediately insert NG tube, get surgery consult Problems: Subjective 24 Hr Interval Summary Free Text/Dictation Patient found with small bowel obstruction on KUB. Awaiting insertion of NG tube. Still having tachycardia. Exam/Review of Systems Vital Signs Vitals Vital Signs Date Time Temp Pulse Resp B/P Pulse Ox O2 Delivery O2 Flow Rate FiO2 05/06/17 11:51 98.4 96 19 114/69 97 05/06/17 10:11 40 05/02/17 17:24 Mechanical Ventilator Intake and Output 05/05/17 05/05/17 05/06/17 15:00 23:00 07:00 Intake Total 556.25 ml 200 ml Output Total 800 ml 650 ml Balance 556.25 ml -800 ml -450 ml Exam Const: Chronically ill-appearing, eyes open but unresponsive Head: Atraumatic Eyes: Normal Conjunctiva ENT: Normal External Ears, Nose and Mouth. Mucous membranes are dry Neck: Full range of motion. Tracheostomy site clean without erythema, induration or drainage Resp: some diminished bilaterally with assisted ventilation. No wheezing Cardio: Regular rate and rhythm, no murmurs Abd: Soft, more firm, distended. Decreased bowel sounds. G-tube site without erythema, induration or drainage. Rectal examination: Brown stool. Skin: No petechiae or rashes. Decubiti. Back: No midline or flank tenderness Ext: No cyanosis, or edema. Some muscle atrophy. Contractures Neur: Awake and alert. Functional quadriplegia Results Result Diagram: 05/06/17 0525 05/06/17 0525 Results 24 hrs Laboratory Tests Test 05/05/17 17:24 05/05/17 21:27 05/05/17 22:10 05/06/17 00:27 Bedside Glucose 201 121 140 Random Tobramycin Level 1.6 Test 05/06/17 05:25 05/06/17 05:49 05/06/17 09:46 White Blood Count 9.6 Red Blood Count 3.63 L Hemoglobin 9.3 L Hematocrit 30.0 L Mean Corpuscular Volume 82.6 Mean Corpuscular Hemoglobin 25.6 L Mean Corpuscular Hemoglobin Concent 31.0 L Red Cell Distribution Width 18.1 H Platelet Count 320 Mean Platelet Volume 10.7 H Neutrophils % 81.6 H Lymphocytes % 9.9 L Monocytes % 5.9 Eosinophils % 1.8 Basophils % 0.2 Nucleated Red Blood Cells % 0.0 Neutrophils # 7.8 H Lymphocytes # 1.0 Monocytes # 0.6 Eosinophils # 0.2 Basophils # 0.0 Nucleated Red Blood Cells # 0.0 Sodium Level 144 Potassium Level 3.5 Chloride Level 107 Carbon Dioxide Level 19 L Anion Gap 22 H Blood Urea Nitrogen 17 Creatinine 1.05 H Glucose Level 102 # Calcium Level 9.8 Phosphorus Level 3.7 Magnesium Level 2.3 Bedside Glucose 121 97 Medications Medications Current Medications Ondansetron HCl (Zofran Inj) 4 mg Q6H PRN IV NAUSEA AND/OR VOMITING; Start 05/02 at 16:30 Acetaminophen (Tylenol Tab) 650 mg Q6H PRN PO PAIN LEVEL 1-3 OR FEVER Last administered on 05/05/17 01:01; Admin Dose 650 MG; Start 05/02/17 at 16:30 Acetaminophen/ Hydrocodone Bitart ([place] (5/325)) 1 tab Q6H PRN PO MODERATE PAIN LEVEL 4-6; Start 05/02/17 at 16:30 Docusate Sodium (Colace) 100 mg Q12H PRN PO CONSTIPATION; Start 05/02/17 at 16: 30 Magnesium Hydroxide (Milk Of Mag) 30 ml DAILY PRN PO CONSTIPATION; Start at 16:30 Sodium Biphosphate/ Sodium Phosphate (Fleet Enema) 133 ml DAILY PRN [place] CONSTIPATION; Start 05/02/17 at 16:30 Lorazepam (Ativan) 0.5 mg Q6H PRN IV ANXIETY; Start 05/02/17 at 16:30 Hydralazine HCl (Apresoline) 10 mg Q6H PRN IV ELEVATED BLOOD PRESSURE; Start at 16:30 Nitroglycerin (Nitroglycerin (Sl Tab) 0.4 Mg) 1 tab Q5M PRN SL ANGINA; Start at 16:30 Ascorbic Acid (Vitamin C) 500 mg Q8 GTB Last administered on 05/06/17 05:47; Admin Dose 500 MG; Start 05/02/17 at 22:00 Baclofen (Lioresal) 20 mg TID GTB Last administered on 05/06/17 09:36; Admin Dose 20 MG; Start 05/02/17 at 21:00 Epoetin Andrey (Epogen (Esrd)) 10,000 units MoWeFr@17 SC Last administered on 05/05 17:28; Admin Dose 10,000 UNITS; Start 05/03/17 at 17:00 Magnesium Oxide (Mag-Ox 400) 800 mg DAILY GTB Last administered on 05/06/17 09: 35; Admin Dose 800 MG; Start 05/03/17 at 09:00 Metoclopramide HCl (Reglan) 10 mg BID GTB Last administered on 05/06/17 09:36; Admin Dose 10 MG; Start 05/02/17 at 21:00 Multivitamins Therapeutic (Theragran) 1 tab DAILY GTB Last administered on 09:36; Admin Dose 1 TAB; Start 05/03/17 at 09:00 Sucralfate (Carafate) 1 gm DAILY GTB Last administered on 05/06/17 09:36; Admin Dose 1 GM; Start 05/03/17 at 09:00 Tramadol HCl (Ultram) 100 mg DAILY GTB Last administered on 05/06/17 09:36; Admin Dose 100 MG; Start 05/03/17 at 09:00 Ferrous Sulfate (Ferrous Sulfate (Ec)) 325 mg BID PO Last administered on 09:36; Admin Dose 325 MG; Start 05/02/17 at 21:00 Insulin Detemir (Levemir) 12 unit QHS SC Last administered on 05/05/17 21:33; Admin Dose 12 UNIT; Start 05/02/17 at 21:00 Insulin Detemir (Levemir) 26 unit DAILY SC Last administered on 05/06/17 09:45 ; Admin Dose 26 UNIT; Start 05/03/17 at 09:00 Insulin Aspart (Novolog Insulin Pen) 15 unit Q6 SC Last administered on 00:32; Admin Dose 15 UNIT; Start 05/02/17 at 18:00 Lansoprazole (Prevacid) 30 mg BID@06,18 GTB Last administered on 05/06/17 05:47 ; Admin Dose 30 MG; Start 05/02/17 at 18:00 Miscellaneous Information 1 ea NOTE XX ; Start 05/02/17 at 16:30 Glucose (Glutose) 15 gm Q15M PRN PO DECREASED GLUCOSE; Start 05/02/17 at 16:30 Glucose (Glutose) 22.5 gm Q15M PRN PO DECREASED GLUCOSE; Start 05/02/17 at 16:30 Dextrose (D50w Syringe) 25 ml Q15M PRN IV DECREASED GLUCOSE; Start 05/02/17 at 16:30 Dextrose (D50w Syringe) 50 ml Q15M PRN IV DECREASED GLUCOSE; Start 05/02/17 at 16:30 Glucagon (Glucagen) 1 mg Q15M PRN IM DECREASED GLUCOSE; Start 05/02/17 at 16:30 Glucose (Glutose) 15 gm Q15M PRN BUCCAL DECREASED GLUCOSE; Start 05/02/17 at 16: 30 Epoetin Andrey (Epogen (Esrd)) 2,000 units MoWeFr@17 SC Last administered on 17:27; Admin Dose 2,000 UNITS; Start 05/03/17 at 17:00 Epoetin Andrey (Epogen (Esrd)) 3,000 units MoWeFr@17 SC Last administered on 17:29; Admin Dose 3,000 UNITS; Start 05/03/17 at 17:00 Miscellaneous Information (Pending Santyl Order For Wound Care) This patient stern... PRN PRN XX WOUND CARE; Start 05/02/17 at 22:30 Trimethoprim/ Sulfamethoxazole (Bactrim (Ds)) 1 tab BID GTB Last administered on 05/06/17 09:36; Admin Dose 1 TAB; Start 05/03/17 at 09:00 Collagenase (Santyl) 1 applic DAILY TOP Last administered on 05/06/17 09:37; Admin Dose 1 APPLIC; Start 05/03/17 at 13:00 Sodium Hypochlorite (Dakin'S (Dilute 1/40%)) 1 applic BID IRR Last administered on 05/06/17 09:37; Admin Dose 1 APPLIC; Start 05/03/17 at 15:00 Nystatin 1 applic 1 applic BID TOP Last administered on 05/06/17 09:37; Admin Dose 1 APPLIC; Start 05/03/17 at 14:30 Meropenem/Sodium Chloride 50 ml @ 100 mls/hr Q12 IVPB Last administered on 05/06 09:36; Admin Dose 100 MLS/HR; Start 05/04/17 at 12:30 Sodium Chloride (1/2 NS) 1,000 ml @ 75 mls/hr [id number] IV Last administered on 05/06/17 03:05; Admin Dose 75 MLS/HR; Start 05/05/17 at 12:00 Tobramycin PER PHARMACY DOSING NOTE XX ; Start 05/05/17 at 12:00 Tobramycin/Sodium Chloride (Tobramycin/NS) 106.25 ml @ 106.25 mls/hr Q24H IVPB ; Start 05/06/17 at 14:00 Miscellaneous Information (*Rx Drug Level Order Reminder*) TOBRA TROUGH @ 1, 300 ON... ONCE ONCE XX ; Start 05/07/17 at 13:00; Stop 05/07/17 at 13:01 Morphine Sulfate (morphine) 2 mg Q4H PRN IV SEVERE PAIN LEVEL 7-10; Start at 12:00 ASHLEY EMERY May 06, 2017 12:31
[2017-05-06] MEDS ORDERED: TOBRAMYCIN 250 MG in SOD CHLORIDE 0.9% 100 ML IVPB SCH (14:00)
--- NOTE | 2017-05-06 16:36 | CONS ---
Date/Time of Note Date/Time of Note DATE: 05/06/17 TIME: 16:34 Consult Date/Type/Reason Admit Date/Time May 02, 2017 at 13:31 Initial Consult Date 05/04/17 Type of Consultation: Pulmonary Ordering Provider: ASHLEY EMERY Subjective No events on MV. Objective Vital Signs Date Time Temp Pulse Resp B/P Pulse Ox O2 Delivery O2 Flow Rate FiO2 05/06/17 16:24 85 05/06/17 15:48 98.2 19 120/77 98 05/06/17 10:11 40 05/02/17 17:24 Mechanical Ventilator Intake and Output 05/05/17 05/05/17 05/06/17 14:59 22:59 06:59 Intake Total 556.25 ml 200 ml Output Total 800 ml 650 ml Balance 556.25 ml -800 ml -450 ml Exam HEENT: Neck supple; no JVD; no LAD; trach in place CVS: RRR, S1 and S2 CHEST: Coarse BS ABD: Soft, NT, + BS EXT: No c/c/e Results/Medications Result Diagram: 05/06/17 0525 05/06/17 0525 Results 24 hrs Laboratory Tests Test 05/05/17 17:24 05/05/17 21:27 05/05/17 22:10 05/06/17 00:27 Bedside Glucose 201 121 140 Random Tobramycin Level 1.6 Test 05/06/17 05:25 05/06/17 05:49 05/06/17 09:46 05/06/17 12:38 White Blood Count 9.6 Red Blood Count 3.63 L Hemoglobin 9.3 L Hematocrit 30.0 L Mean Corpuscular Volume 82.6 Mean Corpuscular Hemoglobin 25.6 L Mean Corpuscular Hemoglobin Concent 31.0 L Red Cell Distribution Width 18.1 H Platelet Count 320 Mean Platelet Volume 10.7 H Neutrophils % 81.6 H Lymphocytes % 9.9 L Monocytes % 5.9 Eosinophils % 1.8 Basophils % 0.2 Nucleated Red Blood Cells % 0.0 Neutrophils # 7.8 H Lymphocytes # 1.0 Monocytes # 0.6 Eosinophils # 0.2 Basophils # 0.0 Nucleated Red Blood Cells # 0.0 Sodium Level 144 Potassium Level 3.5 Chloride Level 107 Carbon Dioxide Level 19 L Anion Gap 22 H Blood Urea Nitrogen 17 Creatinine 1.05 H Glucose Level 102 # Calcium Level 9.8 Phosphorus Level 3.7 Magnesium Level 2.3 Bedside Glucose 121 97 126 Medications Current Medications Ondansetron HCl (Zofran Inj) 4 mg Q6H PRN IV NAUSEA AND/OR VOMITING; Start 05/02 at 16:30 Acetaminophen (Tylenol Tab) 650 mg Q6H PRN PO PAIN LEVEL 1-3 OR FEVER Last administered on 05/05/17 01:01; Admin Dose 650 MG; Start 05/02/17 at 16:30 Acetaminophen/ Hydrocodone Bitart ([place] (5/325)) 1 tab Q6H PRN PO MODERATE PAIN LEVEL 4-6; Start 05/02/17 at 16:30 Docusate Sodium (Colace) 100 mg Q12H PRN PO CONSTIPATION; Start 05/02/17 at 16: 30 Magnesium Hydroxide (Milk Of Mag) 30 ml DAILY PRN PO CONSTIPATION; Start at 16:30 Sodium Biphosphate/ Sodium Phosphate (Fleet Enema) 133 ml DAILY PRN [place] CONSTIPATION; Start 05/02/17 at 16:30 Lorazepam (Ativan) 0.5 mg Q6H PRN IV ANXIETY; Start 05/02/17 at 16:30 Hydralazine HCl (Apresoline) 10 mg Q6H PRN IV ELEVATED BLOOD PRESSURE; Start at 16:30 Nitroglycerin (Nitroglycerin (Sl Tab) 0.4 Mg) 1 tab Q5M PRN SL ANGINA; Start at 16:30 Ascorbic Acid (Vitamin C) 500 mg Q8 GTB Last administered on 05/06/17 05:47; Admin Dose 500 MG; Start 05/02/17 at 22:00 Baclofen (Lioresal) 20 mg TID GTB Last administered on 05/06/17 09:36; Admin Dose 20 MG; Start 05/02/17 at 21:00 Epoetin Andrey (Epogen (Esrd)) 10,000 units MoWeFr@17 SC Last administered on 05/05 17:28; Admin Dose 10,000 UNITS; Start 05/03/17 at 17:00 Magnesium Oxide (Mag-Ox 400) 800 mg DAILY GTB Last administered on 05/06/17 09: 35; Admin Dose 800 MG; Start 05/03/17 at 09:00 Metoclopramide HCl (Reglan) 10 mg BID GTB Last administered on 05/06/17 09:36; Admin Dose 10 MG; Start 05/02/17 at 21:00 Multivitamins Therapeutic (Theragran) 1 tab DAILY GTB Last administered on 09:36; Admin Dose 1 TAB; Start 05/03/17 at 09:00 Sucralfate (Carafate) 1 gm DAILY GTB Last administered on 05/06/17 09:36; Admin Dose 1 GM; Start 05/03/17 at 09:00 Tramadol HCl (Ultram) 100 mg DAILY GTB Last administered on 05/06/17 09:36; Admin Dose 100 MG; Start 05/03/17 at 09:00 Ferrous Sulfate (Ferrous Sulfate (Ec)) 325 mg BID PO Last administered on 09:36; Admin Dose 325 MG; Start 05/02/17 at 21:00 Insulin Detemir (Levemir) 12 unit QHS SC Last administered on 05/05/17 21:33; Admin Dose 12 UNIT; Start 05/02/17 at 21:00 Insulin Detemir (Levemir) 26 unit DAILY SC Last administered on 05/06/17 09:45 ; Admin Dose 26 UNIT; Start 05/03/17 at 09:00 Lansoprazole (Prevacid) 30 mg BID@,18 GTB Last administered on 05/06/17 05:47 ; Admin Dose 30 MG; Start 05/02/17 at 18:00 Miscellaneous Information 1 ea NOTE XX ; Start 05/02/17 at 16:30 Glucose (Glutose) 15 gm Q15M PRN PO DECREASED GLUCOSE; Start 05/02/17 at 16:30 Glucose (Glutose) 22.5 gm Q15M PRN PO DECREASED GLUCOSE; Start 05/02/17 at 16:30 Dextrose (D50w Syringe) 25 ml Q15M PRN IV DECREASED GLUCOSE; Start 05/02/17 at 16:30 Dextrose (D50w Syringe) 50 ml Q15M PRN IV DECREASED GLUCOSE; Start 05/02/17 at 16:30 Glucagon (Glucagen) 1 mg Q15M PRN IM DECREASED GLUCOSE; Start 05/02/17 at 16:30 Glucose (Glutose) 15 gm Q15M PRN BUCCAL DECREASED GLUCOSE; Start 05/02/17 at 16: 30 Epoetin Andrey (Epogen (Esrd)) 2,000 units MoWeFr@17 SC Last administered on 17:27; Admin Dose 2,000 UNITS; Start 05/03/17 at 17:00 Epoetin Andrey (Epogen (Esrd)) 3,000 units MoWeFr@17 SC Last administered on 17:29; Admin Dose 3,000 UNITS; Start 05/03/17 at 17:00 Miscellaneous Information (Pending Santyl Order For Wound Care) This patient stern... PRN PRN XX WOUND CARE; Start 05/02/17 at 22:30 Trimethoprim/ Sulfamethoxazole (Bactrim (Ds)) 1 tab BID GTB Last administered on 05/06/17 09:36; Admin Dose 1 TAB; Start 05/03/17 at 09:00 Collagenase (Santyl) 1 applic DAILY TOP Last administered on 05/06/17 09:37; Admin Dose 1 APPLIC; Start 05/03/17 at 13:00 Sodium Hypochlorite (Dakin'S (Dilute 1/40%)) 1 applic BID IRR Last administered on 05/06/17 09:37; Admin Dose 1 APPLIC; Start 05/03/17 at 15:00 Nystatin 1 applic 1 applic BID TOP Last administered on 05/06/17 09:37; Admin Dose 1 APPLIC; Start 05/03/17 at 14:30 Meropenem/Sodium Chloride 50 ml @ 100 mls/hr Q12 IVPB Last administered on 05/06 09:36; Admin Dose 100 MLS/HR; Start 05/04/17 at 12:30 Sodium Chloride (1/2 NS) 1,000 ml @ 75 mls/hr [id number] IV Last administered on 05/06/17 03:05; Admin Dose 75 MLS/HR; Start 05/05/17 at 12:00 Tobramycin PER PHARMACY DOSING NOTE XX ; Start 05/05/17 at 12:00 Tobramycin/Sodium Chloride (Tobramycin/NS) 106.25 ml @ 106.25 mls/hr Q24H IVPB Last administered on 05/06/17 13:50; Admin Dose 106.25 MLS/HR; Start 05/06/17 at 14:00 Miscellaneous Information (*Rx Drug Level Order Reminder*) TOBRA TROUGH @ 1, 300 ON... ONCE ONCE XX ; Start 05/07/17 at 13:00; Stop 05/07/17 at 13:01 Morphine Sulfate (morphine) 2 mg Q4H PRN IV SEVERE PAIN LEVEL 7-10; Start at 12:00 Insulin Aspart (Novolog Insulin Pen) 10 unit Q6 SC ; Start 05/06/17 at 18:00 Assessment/Plan Additional Assessment/Plan IMP: 1. VDRF 2. Anemia 3. Encephalopathy 4. DM 5. MS RECS: 1. Vent orders 2. BDs 3. TFs XIN NEWBERRY MD May 06, 2017 16:36
--- NOTE | 2017-05-06 20:41 | CONS ---
Date/Time of Note Date/Time of Note DATE: 05/06/17 TIME: 20:41 Assessment/Plan Assessment/Plan Additional Assessment/Plan [facility] INPATIENT CONSULTATION NOTE DATE OF SERVICE: 05/06/2017 PLACE OF SERVICE: [facility], fifth [facility] [place] ASSESSMENT AND PLAN: A very-pleasant but unfortunate 56-year-old lady with multiple comorbid issues with clinical picture that is not consistent with bowel obstruction. Her x-ray findings are similar to at least one other admission this x-ray findings and I do not believe that this represents surgical bowel obstruction. Patient has been having bowel function and at this time does not need any acute surgical intervention. With above assessment, I've recommended the followin. Continue aggressive medical management 2. Please inform me if clinical condition changes, specifically abdominal distention or evidence of sepsis Thank you very much for having me involved in the care of this very pleasant patient and wonderful family. If you have any questions, please feel free to contact me at [phone]. Nature of presenting problem: low, moderate, high severity Please note that, given the minimal, limited, multiple, extensive number of diagnoses or management options, the minimal or none, limited, moderate, extensive amount and/or complexity of data needed to be reviewed, and minimal, low, moderate, high risk of complications and/or morbidity or mortality, this qualifies as straightforward, low complexity, moderate complexity, high complexity type of decision-making. Disclaimer: Inadvertent spelling and grammatical errors are likely due to EHR/ dictation software use and do not reflect on the quality of delivered patient care. Also, please note that the electronic time recorded on this node does not necessarily reflect the actual time of the visit. Updated clinical summary: A very-pleasant but unfortunate 56-year-old lady with multiple comorbid issues with clinical picture that is not consistent with bowel obstruction. Comorbidities: 1. Chronic hypoxic respiratory failure, status post tracheostomy and vent dependent 2. Prior CVA 3. Multiple sclerosis 4. Functional quadriplegia 5. Anoxic encephalopathy 6. Anemia 7. Diabetes mellitus type 2 8. Nontoxic megacolon 9. Hypertension 10. Dyslipidemia 11. Chronic kidney disease 12. History of substance 13. Status post PEG CONSULTATION REQUESTED BY: Carey Cortes MD HISTORY OF PRESENT ILLNESS: The patient is a very pleasant but unfortunate 56- year-old lady with multiple comorbidities, initially admitted to [facility] on 05/02/2017 with issues with worsening anemia. I was kindly asked to consult regarding management of possible bowel obstruction. Note that history is limited due to patient's clinical condition. Patient has been recorded having 1 bowel movement per day for the last 3 days. ALLERGIES: Multiple and listed in the electronic health record system MEDICATIONS Documented in the electronic records and reviewed by me. Please see the electronic records for details, as well as details for inpatient medications which were also reviewed by me. SOCIAL HISTORY: The patient lives with family.-Tob;-ETOH;-IVDU FAMILY HISTORY: There are no significant medical, surgical or oncologic issues in the family as reported by the patient or reflected in the chart. REVIEW OF SYSTEMS: Unable to obtain due to patient's encephalopathy and noncommunicative status. PHYSICAL EXAMINATION GENERAL: The patient appears to be a very pleasant lady of descent lying in bed, on the vent with tracheostomy and PEG, appearing stated age, and otherwise in no acute distress. BMI: 23.4 VITAL SIGNS: AVSS (please also see auto important data if available as well as the electronic records) HEENT: Normocephalic and atraumatic. Extraocular muscles and hearing are grossly intact bilaterally and symmetrically. Sclerae are nonicteric. Oral cavity is clear; oral mucosa appear to be pink and moist. Dentition: fair. NECK: Supple. There is no lymphadenopathy or JVD. There is no submental, submandibular or supraclavicular lymphadenopathy. CHEST: Rises symmetrically with each breath; patient is breathing comfortably. There are no audible wheezes, rales or rhonchi on the gross exam. HEART: Pulse is regular and palpable on the right wrist. Capillary refill is normal. Carotid pulses are palpable bilaterally and symmetrically in the neck. EXTREMITIES: Lower extremities contain no pitting edema around the ankles bilaterally and symmetrically. Severe and chronic appearing foot drop with inversion of both feet and heel decubitus ulcers bilaterally. ABDOMEN: Abdomen is soft, nontender and nondistended although protuberant. No evidence of ascites, organomegaly, caput medusae, engorged subcutaneous veins, or other abnormalities. There are no peritoneal signs or guarding. Lower midline incision that appears to be well-healed and not associated with any erythema, edema, discharge, or hernia. SKIN: Appears to be pink and feels warm to touch. NEUROLOGIC: Awake, alert, and follows commands appropriately. LABORATORY DATA: See below IMAGING: See electronic chart. Please note that I've personally reviewed all pertinent available images and I agree in general with their overall reported findings. Consultation Date/Type/Reason Admit Date/Time May 02, 2017 at 13:31 Constitutional: requiring O2 (vent), No chills Eyes: No discharge Respiratory: No cough, No shortness of breath Cardiovascular: No edema Gastrointestinal: flatus, No blood, No constipation, No diarrhea Past Surgical History Past Surgical Hx: other (G-tube, trach) Social History Alcohol Use: none Smoking Status: Never smoker Drug Use: none Exam/Review of Systems Vital Signs Vitals Vital Signs Date Time Temp Pulse Resp B/P Pulse Ox O2 Delivery O2 Flow Rate FiO2 05/06/17 20:37 80 05/06/17 19:42 97.8 14 101/69 100 05/06/17 19:36 40 05/02/17 17:24 Mechanical Ventilator Intake and Output 05/05/17 05/05/17 05/06/17 15:00 23:00 07:00 Intake Total 556.25 ml 200 ml Output Total 800 ml 650 ml Balance 556.25 ml -800 ml -450 ml Results Result Diagram: 05/06/17 0525 05/06/17 0525 Results 24 hrs Laboratory Tests Test 05/05/17 21:27 05/05/17 22:10 05/06/17 00:27 05/06/17 05:25 Bedside Glucose 121 140 Random Tobramycin Level 1.6 White Blood Count 9.6 Red Blood Count 3.63 L Hemoglobin 9.3 L Hematocrit 30.0 L Mean Corpuscular Volume 82.6 Mean Corpuscular Hemoglobin 25.6 L Mean Corpuscular Hemoglobin Concent 31.0 L Red Cell Distribution Width 18.1 H Platelet Count 320 Mean Platelet Volume 10.7 H Neutrophils % 81.6 H Lymphocytes % 9.9 L Monocytes % 5.9 Eosinophils % 1.8 Basophils % 0.2 Nucleated Red Blood Cells % 0.0 Neutrophils # 7.8 H Lymphocytes # 1.0 Monocytes # 0.6 Eosinophils # 0.2 Basophils # 0.0 Nucleated Red Blood Cells # 0.0 Sodium Level 144 Potassium Level 3.5 Chloride Level 107 Carbon Dioxide Level 19 L Anion Gap 22 H Blood Urea Nitrogen 17 Creatinine 1.05 H Glucose Level 102 # Calcium Level 9.8 Phosphorus Level 3.7 Magnesium Level 2.3 Test 05/06/17 05:49 05/06/17 09:46 05/06/17 12:38 05/06/17 18:16 Bedside Glucose 121 97 126 99 Medications Medications Current Medications Ondansetron HCl (Zofran Inj) 4 mg Q6H PRN IV NAUSEA AND/OR VOMITING; Start 05/02 at 16:30 Acetaminophen (Tylenol Tab) 650 mg Q6H PRN PO PAIN LEVEL 1-3 OR FEVER Last administered on 05/05/17 01:01; Admin Dose 650 MG; Start 05/02/17 at 16:30 Acetaminophen/ Hydrocodone Bitart ([place] (5/325)) 1 tab Q6H PRN PO MODERATE PAIN LEVEL 4-6; Start 05/02/17 at 16:30 Docusate Sodium (Colace) 100 mg Q12H PRN PO CONSTIPATION; Start 05/02/17 at 16: 30 Magnesium Hydroxide (Milk Of Mag) 30 ml DAILY PRN PO CONSTIPATION; Start at 16:30 Sodium Biphosphate/ Sodium Phosphate (Fleet Enema) 133 ml DAILY PRN VT CONSTIPATION; Start 05/02/17 at 16:30 Lorazepam (Ativan) 0.5 mg Q6H PRN IV ANXIETY; Start 05/02/17 at 16:30 Hydralazine HCl (Apresoline) 10 mg Q6H PRN IV ELEVATED BLOOD PRESSURE; Start at 16:30 Nitroglycerin (Nitroglycerin (Sl Tab) 0.4 Mg) 1 tab Q5M PRN SL ANGINA; Start at 16:30 Ascorbic Acid (Vitamin C) 500 mg Q8 GTB Last administered on 05/06/17 05:47; Admin Dose 500 MG; Start 05/02/17 at 22:00 Baclofen (Lioresal) 20 mg TID GTB Last administered on 05/06/17 09:36; Admin Dose 20 MG; Start 05/02/17 at 21:00 Epoetin Andrey (Epogen (Esrd)) 10,000 units MoWeFr@17 SC Last administered on 05/05 17:28; Admin Dose 10,000 UNITS; Start 05/03/17 at 17:00 Magnesium Oxide (Mag-Ox 400) 800 mg DAILY GTB Last administered on 05/06/17 09: 35; Admin Dose 800 MG; Start 05/03/17 at 09:00 Metoclopramide HCl (Reglan) 10 mg BID GTB Last administered on 05/06/17 09:36; Admin Dose 10 MG; Start 05/02/17 at 21:00 Multivitamins Therapeutic (Theragran) 1 tab DAILY GTB Last administered on 09:36; Admin Dose 1 TAB; Start 05/03/17 at 09:00 Sucralfate (Carafate) 1 gm DAILY GTB Last administered on 05/06/17 09:36; Admin Dose 1 GM; Start 05/03/17 at 09:00 Tramadol HCl (Ultram) 100 mg DAILY GTB Last administered on 05/06/17 09:36; Admin Dose 100 MG; Start 05/03/17 at 09:00 Ferrous Sulfate (Ferrous Sulfate (Ec)) 325 mg BID PO Last administered on 09:36; Admin Dose 325 MG; Start 05/02/17 at 21:00 Insulin Detemir (Levemir) 12 unit QHS SC Last administered on 05/05/17 21:33; Admin Dose 12 UNIT; Start 05/02/17 at 21:00 Insulin Detemir (Levemir) 26 unit DAILY SC Last administered on 05/06/17 09:45 ; Admin Dose 26 UNIT; Start 05/03/17 at 09:00 Lansoprazole (Prevacid) 30 mg BID@,18 GTB Last administered on 05/06/17 05:47 ; Admin Dose 30 MG; Start 05/02/17 at 18:00 Miscellaneous Information 1 ea NOTE XX ; Start 05/02/17 at 16:30 Glucose (Glutose) 15 gm Q15M PRN PO DECREASED GLUCOSE; Start 05/02/17 at 16:30 Glucose (Glutose) 22.5 gm Q15M PRN PO DECREASED GLUCOSE; Start 05/02/17 at 16:30 Dextrose (D50w Syringe) 25 ml Q15M PRN IV DECREASED GLUCOSE; Start 05/02/17 at 16:30 Dextrose (D50w Syringe) 50 ml Q15M PRN IV DECREASED GLUCOSE; Start 05/02/17 at 16:30 Glucagon (Glucagen) 1 mg Q15M PRN IM DECREASED GLUCOSE; Start 05/02/17 at 16:30 Glucose (Glutose) 15 gm Q15M PRN BUCCAL DECREASED GLUCOSE; Start 05/02/17 at 16: 30 Epoetin Andrey (Epogen (Esrd)) 2,000 units MoWeFr@17 SC Last administered on 17:27; Admin Dose 2,000 UNITS; Start 05/03/17 at 17:00 Epoetin Andrey (Epogen (Esrd)) 3,000 units MoWeFr@17 SC Last administered on 17:29; Admin Dose 3,000 UNITS; Start 05/03/17 at 17:00 Miscellaneous Information (Pending Santyl Order For Wound Care) This patient stern... PRN PRN XX WOUND CARE; Start 05/02/17 at 22:30 Trimethoprim/ Sulfamethoxazole (Bactrim (Ds)) 1 tab BID GTB Last administered on 05/06/17 09:36; Admin Dose 1 TAB; Start 05/03/17 at 09:00 Collagenase (Santyl) 1 applic DAILY TOP Last administered on 05/06/17 09:37; Admin Dose 1 APPLIC; Start 05/03/17 at 13:00 Sodium Hypochlorite (Dakin'S (Dilute 1/40%)) 1 applic BID IRR Last administered on 05/06/17 09:37; Admin Dose 1 APPLIC; Start 05/03/17 at 15:00 Nystatin 1 applic 1 applic BID TOP Last administered on 05/06/17 09:37; Admin Dose 1 APPLIC; Start 05/03/17 at 14:30 Meropenem/Sodium Chloride 50 ml @ 100 mls/hr Q12 IVPB Last administered on 05/06 09:36; Admin Dose 100 MLS/HR; Start 05/04/17 at 12:30 Sodium Chloride (1/2 NS) 1,000 ml @ 75 mls/hr [id number] IV Last administered on 05/06/17 18:16; Admin Dose 75 MLS/HR; Start 05/05/17 at 12:00 Tobramycin PER PHARMACY DOSING NOTE XX ; Start 05/05/17 at 12:00 Tobramycin/Sodium Chloride (Tobramycin/NS) 106.25 ml @ 106.25 mls/hr Q24H IVPB Last administered on 05/06/17 13:50; Admin Dose 106.25 MLS/HR; Start 05/06/17 at 14:00 Miscellaneous Information (*Rx Drug Level Order Reminder*) TOBRA TROUGH @ 1, 300 ON... ONCE ONCE XX ; Start 05/07/17 at 13:00; Stop 05/07/17 at 13:01 Morphine Sulfate (morphine) 2 mg Q4H PRN IV SEVERE PAIN LEVEL 7-10; Start at 12:00 Insulin Aspart (Novolog Insulin Pen) 10 unit Q6 SC Last administered on 18:18; Admin Dose 10 UNIT; Start 05/06/17 at 18:00 STEVIE MCINTYRE M.D. May 06, 2017 20:41
[2017-05-07] VITALS (17 sets, daily range): BP systolic 121–126; BP diastolic 73–79; PULSE 78–110; RESP 12–18
[2017-05-07] MEDS: SOD CHLORIDE 0.45% 1,000 ML IV SCH (04:00)
[2017-05-07] MEDS: LANSOPRAZOLE 30 MG CAP GTB SCH (05:01)
[2017-05-07] MEDS: ASCORBIC ACID 500 MG TAB GTB SCH ×2 (05:02→15:28)
[2017-05-07] MEDS: INSULIN ASPART [NOVOLOG] 3 ML PEN SC SCH ×3 (05:33→12:47)
[2017-05-07 07:53] LABS: BASOPHILS % 0.3 % (0.0-2.0); EOSINOPHILS # 0.3 10^3/ul (0.0-0.5); EOSINOPHILS % 3.9 % (0.0-7.0); HEMATOCRIT 30.4 % (37.0-47.0); HEMOGLOBIN 8.9 g/dl (12.0-16.0); LYMPHOCYTES # 1.4 10^3/ul (0.8-2.9); LYMPHOCYTES % 20.2 % (15.0-51.0); MEAN CORPUSCULAR HEMOGLOBIN 24.9 pg (29.0-33.0); MEAN CORPUSCULAR HGB CONC 29.3 g/dl (32.0-37.0); MEAN CORPUSCULAR VOLUME 84.9 fl (82.0-101.0); MEAN PLATELET VOLUME 10.4 fl (7.4-10.4); MONOCYTE # 0.7 10^3/ul (0.3-0.9); NEUTROPHIL # 4.4 10^3/ul (1.6-7.5); NEUTROPHILS % 64.9 % (39.0-77.0); PLATELET COUNT 310 10^3/UL (140-415); RED BLOOD COUNT 3.58 10^6/ul (4.20-5.40); RED CELL DISTRIBUTION WIDTH 18.1 % (11.5-14.5); WHITE BLOOD COUNT 6.7 10^3/ul (4.8-10.8)
[2017-05-07 08:18] LABS: CALCIUM 9.5 mg/dl (8.4-10.2); CREATININE 1.1 mg/dl (0.44-1.00); POTASSIUM 3.3 mmol/L (3.5-5.1)
[2017-05-07] MEDS: traMADol 50 MG TAB GTB SCH (09:00)
[2017-05-07] MEDS: BACLOFEN 10 MG TAB GTB SCH ×2 (09:00→12:43)
[2017-05-07] MEDS: MAGNESIUM OXIDE 400 MG TAB GTB SCH (09:00)
[2017-05-07] MEDS: TRIMETHOPRIM/SULFAMETHOX (DS) TAB GTB SCH (09:00)
[2017-05-07] MEDS: METOCLOPRAMIDE 10 MG TAB GTB SCH (09:00)
[2017-05-07] MEDS: FERROUS SULFATE (EC) 325 MG TAB PO SCH (09:00)
[2017-05-07] MEDS: MULTIVITAMINS THERAPEUTIC TAB GTB SCH (09:00)
[2017-05-07] MEDS: SUCRALFATE 1 GM TAB GTB SCH (09:00)
[2017-05-07] MEDS: NYSTATIN 30 GM POWDER BTL TOP SCH (09:26)
[2017-05-07] MEDS: SODIUM HYPOCHLORITE 1/40% 1L IRRIG IRR SCH (09:26)
[2017-05-07] MEDS: MEROPENEM 1 GM/50ML(PMX) 50 ML IVPB SCH (09:26)
[2017-05-07] MEDS: COLLAGENASE 30 GM TUBE TOP SCH (09:26)
[2017-05-07] MEDS: INSULIN DETEMIR [LEVEMIR] 3ML CART SC SCH (09:29)
[2017-05-07] MEDS ORDERED: SODIUM CHLORIDE 0.45% 500 ML BAG IV* ONE ×2 (09:30→15:00)
--- NOTE | 2017-05-07 09:34 | DS ---
Date/Time of Note Date/Time of Note DATE: 05/07/17 TIME: 09:29 Discharge Summary Admission/Discharge Info Admit Date/Time May 02, 2017 at 13:31 Discharge Date/Time Discharge Diagnosis 1. Anemia: Likely secondary to combination of chronic disease and bleeding sacral ulcer, status post cauterization of bleeding ulcer and status post PRBC transfusion, hemoglobin stable today. 2. Chronic hypoxic respiratory failure: Continue oxygen supplementation via tracheostomy, consider pulmonary consult for vent management 3. Multiple sclerosis 4. History of anoxic encephalopathy 5. Type 2 diabetes - on Sliding scale insulin and Levemir 6. Hypertension: Blood pressure stable 7. Acute on chronic kidney disease 8. UTI: -Secondary to multidrug-resistant organisms, on IV antibiotics now 9. History of decubitus ulcers: Appreciate wound care nurse consult, will follow the recommendations for treatment of multiple decubitus ulcers. 10. History of G-tube 11. Hypernatremia resolved Patient Condition: Stable Hospital Course 56-year-old female with a history of chronic hypoxic respiratory failure status post tracheostomy, vent dependent, prior CVA, multiple sclerosis, no functional quadriplegia, anoxic encephalopathy, anemia, diabetes mellitus type 2, nontoxic megacolon, hypertension, dyslipidemia, chronic kidney disease and sepsis sent to the ED by ambulance from [facility] for evaluation of worsening anemia. Patient was admitted and found also with hypernatremia. She received 1 unit PRBC transfusion. She was also found with bleeding sacral ulcers, and treated by surgery team with cauterized using silver nitrate, packed with gauze, dry dressing. Also found with urinary tract infection, multidrug infection. She has a prior history of ESBL and Klebsiella UTIs as well. Antibiotics were added, and adjusted based on that. She also received D5W IV fluids for her hypernatremia, which resolved. Her vital signs have been stable. She had some signs of possible small bowel obstruction, and was placed on low intermittent suction to the G-tube, her abdomen improved, she was evaluated by surgery team who felt that this was not a true small bowel obstruction, nevertheless she had bowel movement and this was resolving. She also had intermittent tachycardia which was treated with IV fluid bolus. Once her heart rate improves, today she will be discharged [facility] to [facility] today in improved condition. See printed discharge medication list for full list of medications. Home Meds Reported Medications Tramadol Hcl* (Ultram*) 50 Mg Tablet, 100 MG GTB DAILY, TAB 05/02/17 Omeprazole* (Omeprazole*) 40 Mg Capsule.dr, 40 MG GTB BID, #30 CAP 05/02/17 Insulin Aspart* (Novolog Insulin Pen*) 100 Unit/Ml Soln, 0 SC .SLIDING SCALE AC , EA 05/02/17 Multivitamins* (Theragran*) 1 Tab Tab, 1 TAB GTB DAILY, TAB 05/02/17 Metoclopramide* (Reglan*) 10 Mg Tablet, 10 MG GTB BID, TAB 05/02/17 Magnesium Oxide* (Magnesium Oxide*) 400 Mg Tablet, 800 MG GTB DAILY, TAB 05/02/17 Insulin Detemir (Levemir) 100 Unit/1 Ml Vial, 12 UNIT SC QHS, VIAL 05/02/17 Insulin Lispro (Humalog) 100 Unit/1 Ml Cartridge, 15 UNIT SQ Q6 05/02/17 Insulin Detemir (Levemir) 100 Unit/1 Ml Vial, 26 UNIT SC DAILY, VIAL 05/02/17 Heparin Sod (Porcine) (Heparin) 1,000 Unit/Ml Soln, 5000 UNIT IJ Q12 05/02/17 Ferrous Sulfate (Ferrous Sulfate) 220 Mg/5 Ml Solution, 330 MG PO BID 05/02/17 Epoetin Andrey (Epogen) 10,000 Units/Ml Soln, 61131 UNITS SC MONWEDFRI, VIAL 05/02/17 Sucralfate* (Carafate*) 1 Gm Tab, 1 GM GTB DAILY, TAB 05/02/17 Ascorbic Acid* (Ascorbic Acid*) 500 Mg/5 Ml Syrup, 500 MG GTB Q8, #150 ML 05/02/17 Arginine/Ascorbate Sod/Hannah AC (Arginaid Powder) 1 Each Powd.pack, 1 EACH GTB BID 05/02/17 Baclofen* (Baclofen*) 20 Mg Tablet, 20 MG GTB TID, TAB 10/14/16 Acetaminophen* (Acetaminophen*) 650 Mg Tablet, 650 MG GTB Q4 Y for ELEVATED TEMPERATURE, #30 TAB OR FEVER 10/14/16 Discontinued Reported Medications Simethicone* (Anti-Gas/80*) 80 Mg Tab.chew, 160 MG GTB DAILY Y for DISTENSION/ GAS/BLOATING, TAB.CHEW 11/15/16 Metoprolol Tartrate* (Lopressor*) 25 Mg Tab, 25 MG GTB BID, #60 TAB HOLD IF SBP<110; HR<60 10/14/16 Gemfibrozil* (Gemfibrozil*) 600 Mg Tablet, 600 MG GTB BID, TAB 10/14/16 Clonidine Hcl* (Clonidine Hcl*) 0.1 Mg Tab, 0.1 MG GTB Q8, TAB IF SBP>160 10/14/16 Atorvastatin* (Atorvastatin*) 40 Mg Tablet, 40 MG GTB QHS, #30 TAB 10/14/16 Zinc Sulfate* (Zinc Sulfate*) 220 Mg Tablet, 220 MG GTB DAILY, TAB 10/14/16 Insulin Detemir (Levemir Flextouch) 100 Unit/1 Ml Insuln.pen, 40 UNIT SQ QAM 10/14/16 Diphenhydramine Hcl* (Diphenhydramine Hcl*) 25 Mg Capsule, 25 MG GTB Q4 Y for ITCHING, CAP 10/14/16 Pantoprazole* (Pantoprazole*) 40 Mg Tablet., 40 MG GTB AC BREAKFAST, TAB 10/14/16 Primary Care Provider Star Taylor MD Time spent on discharge: > 30 minutes Pending Labs Laboratory Tests Test 05/06/17 09:46 05/06/17 12:38 05/06/17 18:16 05/06/17 21:49 Bedside Glucose 97mg/dL (70-220) 126mg/dL (70-220) 99mg/dL (70-220) 82mg/dL (70-220) Test 05/07/17 01:15 05/07/17 05:32 05/07/17 07:08 05/07/17 09:25 Bedside Glucose 87mg/dL (70-220) 87mg/dL (70-220) 113mg/dL (70-220) White Blood Count 6.710^3/ul (4.8-10.8) Red Blood Count 3.5810^6/ul (4.20-5.40) Hemoglobin 8.9g/dl (12.0-16.0) Hematocrit 30.4% (37.0-47.0) Mean Corpuscular Volume 84.9fl (82.0-101.0) Mean Corpuscular Hemoglobin 24.9pg (29.0-33.0) Mean Corpuscular Hemoglobin Concent 29.3g/dl (32.0-37.0) Red Cell Distribution Width 18.1% (11.5-14.5) Platelet Count 07891^3/UL (140-415) Mean Platelet Volume 10.4fl (7.4-10.4) Neutrophils % 64.9% (39.0-77.0) Lymphocytes % 20.2% (15.0-51.0) Monocytes % 10.0% (0.0-11.0) Eosinophils % 3.9% (0.0-7.0) Basophils % 0.3% (0.0-2.0) Nucleated Red Blood Cells % 0.0/100WBC (0.0-0.0) Neutrophils # 4.410^3/ul (1.6-7.5) Lymphocytes # 1.410^3/ul (0.8-2.9) Monocytes # 0.710^3/ul (0.3-0.9) Eosinophils # 0.310^3/ul (0.0-0.5) Basophils # 0.010^3/ul (0.0-0.1) Nucleated Red Blood Cells # 0.010^3/ul (0.0-0.0) Sodium Level 145mmol/L (135-144) Potassium Level 3.3mmol/L (3.5-5.1) Chloride Level 108mmol/L (97-110) Carbon Dioxide Level 22mmol/L (21-31) Anion Gap 18 (8-16) Blood Urea Nitrogen 12mg/dl (7-20) Creatinine 1.10mg/dl (0.44-1.00) Glucose Level 89mg/dl (70-220) Calcium Level 9.5mg/dl (8.4-10.2) ASHLEY EMERY May 07, 2017 09:34
[2017-05-07] MEDS ORDERED: POTASSIUM CHLORIDE 40 MEQ in SOD CHLORIDE 0.9% 250 ML IVPB ONE (10:00)
--- NOTE | 2017-05-07 11:09 | PN ---
Date/Time of Note Date/Time of Note DATE: 05/07/17 TIME: 11:04 Assessment/Plan Lines/Catheters IV Catheter Type (from [facility]): Peripheral IV Munoz in Place (from [facility]): Yes Assessment/Plan Chief Complaint/Hosp Course 1. Multiple wounds: sacrococcyx stage 4: s/p chemical cautery ; no bleeding noted -close monitoring for bleeding -gentle wound care -frequent turning and offloading -specialty mattress -vitamin C and short term zinc 2. Anemia: s/p transfusion: stable 3. UTI: -abx per sensitivities 4. Pneumonia: -pulmonary toilet -abx per sensitivity 5. Leukocytosis: 2/2 #3+#4; normalized -as above 6. Diabetes: -blood sugar optimization 7. Electrolyte imbalance (hypercalcemia, hypermagnesemia); improving -electrolyte optimization 8. VDRF -supportive 9. Possible SBO: +bowel function, no n/v -close monitoring Patient seen and examined in collaboration with Dr. Hi High. Thank you. Problems: Subjective 24 Hr Interval Summary Appears comfortable on vent. No noted bleeding from sacral wounds. +bowel function. Non-verbal indicators of pain not present. Plan for dc to facility today. No fevers, chills, sz, n/v/d, rash Exam/Review of Systems Vital Signs Vitals Vital Signs Date Time Temp Pulse Resp B/P Pulse Ox O2 Delivery O2 Flow Rate FiO2 05/07/17 09:48 116 12 100 40 05/07/17 08:26 98.2 121/73 Intake and Output 05/06/17 05/06/17 05/07/17 15:00 23:00 07:00 Intake Total 1100 ml 0 ml Output Total 400 ml 1000 ml Balance 700 ml -1000 ml Exam Free Text/Dictation Constitutional: alert, non-verbal, other (withdraws from pain), appears comfortable Head: atraumatic, normocephalic Eyes: PERRL, nl lids, nl sclera ENMT: mucosa pink and moist Neck: non-tender, supple Respiratory: normal air movement, No congested cough Cardiovascular: nl pulses, regular rate and rhythm, No edema Gastrointestinal: non-tender, soft Genitourinary - Female: nl external genitalia, other (munoz with cloudy urine) Musculoskeletal: No muscle tone, No nl gait and stance Extremities: normal pulses, No edema Neurological: confused Skin: other (multiple wounds: sacral wound with pink woundbed, no bleeding areas noted), No rash or lesions Results Result Diagram: 05/07/17 0708 05/07/17 0708 SANFORD RODRIGUEZ NP May 07, 2017 11:09
--- NOTE | 2017-05-07 17:42 | PN ---
Date/Time of Note Date/Time of Note DATE: 05/07/17 TIME: 17:42 Assessment/Plan Lines/Catheters IV Catheter Type (from Nrsg): Peripheral IV Joel in Place (from Nrs): Yes Assessment/Plan Assessment/Plan [facility] Progress Note Date of Service: 05/07/2017 Place of service: [facility] fifth floor telemetry Today's Assessment & Plan: Overall has remained stable. Evidence of bowel function and no indication for acute surgical intervention. With above assessment, I've recommended the following for today: 1. Continue current cares 2. I will visit as needed Thank you again for your great care of this very pleasant patient and wonderful family. If there are any questions, please feel free to call me at [phone]. Nature of presenting problem: low, moderate, high severity Please note that, given the minimal, limited, multiple, extensive number of diagnoses or management options, the minimal or none, limited, moderate, extensive amount and/or complexity of data needed to be reviewed, and minimal, low, moderate, high risk of complications and/or morbidity or mortality, this qualifies as straightforward, low complexity, moderate complexity, high complexity type of decision-making. Disclaimer: Inadvertent spelling and grammatical errors are likely due to EHR/ dictation software use and do not reflect on the quality of delivered patient care. Also, please note that the electronic time recorded on this node does not necessarily reflect the actual time of the visit. Updated clinical summary: A very-pleasant but unfortunate 56-year-old lady with multiple comorbid issues with clinical picture that is not consistent with bowel obstruction. Comorbidities: 1. Chronic hypoxic respiratory failure, status post tracheostomy and vent dependent 2. Prior CVA 3. Multiple sclerosis 4. Functional quadriplegia 5. Anoxic encephalopathy 6. Anemia 7. Diabetes mellitus type 2 8. Nontoxic megacolon 9. Hypertension 10. Dyslipidemia 11. Chronic kidney disease 12. History of substance 13. Status post PEG Subjective: No major events or complaints; patient had a bowel movement per nursing report. She is noncommunicative. Objective: Vitals: See below I's & O's: See below Exam: GENERAL: On exam, the patient was lying in bed and appeared to be comfortable and in no acute distress. ABDOMEN: Abdomen is soft, nontender and nondistended although protuberant. No evidence of ascites, organomegaly, caput medusae, engorged subcutaneous veins, or other abnormalities. There are no peritoneal signs or guarding. Lower midline incision that appears to be well-healed and not associated with any erythema, edema, discharge, or hernia. SKIN: Skin appears to be pink and feels warm to touch. NEUROLOGIC: Patient is awake, appears to be alert, and does not follow commands appropriately. Labs: See below Exam/Review of Systems Vital Signs Vitals Vital Signs Date Time Temp Pulse Resp B/P Pulse Ox O2 Delivery O2 Flow Rate FiO2 05/07/17 16:00 89 05/07/17 15:45 12 97 40 05/07/17 11:44 97.8 126/79 Intake and Output 05/06/17 05/06/17 05/07/17 15:00 23:00 07:00 Intake Total 1100 ml 0 ml Output Total 400 ml 1000 ml Balance 700 ml -1000 ml Results Result Diagram: 05/07/17 0708 05/07/17 0708 STEVIE MCINTYRE M.D. May 07, 2017 17:42
--- NOTE | 2017-05-07 17:47 | CONS ---
Date/Time of Note Date/Time of Note DATE: 05/07/17 TIME: 17:46 Consult Date/Type/Reason Admit Date/Time May 02, 2017 at 13:31 Initial Consult Date 05/04/17 Type of Consultation: Pulmonary Ordering Provider: ASHLEY EMERY Subjective No resp events. Objective Vital Signs Date Time Temp Pulse Resp B/P Pulse Ox O2 Delivery O2 Flow Rate FiO2 05/07/17 16:00 89 05/07/17 15:45 12 97 40 05/07/17 11:44 97.8 126/79 Intake and Output 05/06/17 05/06/17 05/07/17 15:00 23:00 07:00 Intake Total 1100 ml 0 ml Output Total 400 ml 1000 ml Balance 700 ml -1000 ml Exam HEENT: Neck supple; no JVD; no LAD; trach in place CVS: RRR, S1 and S2 CHEST: Coarse BS ABD: Soft, NT, + BS EXT: No c/c/e Results/Medications Result Diagram: 05/07/17 0708 05/07/17 0708 Results 24 hrs Laboratory Tests Test 05/06/17 18:16 05/06/17 21:49 05/07/17 01:15 05/07/17 05:32 Bedside Glucose 99 82 87 87 Test 05/07/17 07:08 05/07/17 09:25 05/07/17 12:42 05/07/17 12:51 White Blood Count 6.7 # Red Blood Count 3.58 L Hemoglobin 8.9 L Hematocrit 30.4 L Mean Corpuscular Volume 84.9 Mean Corpuscular Hemoglobin 24.9 L Mean Corpuscular Hemoglobin Concent 29.3 L Red Cell Distribution Width 18.1 H Platelet Count 310 Mean Platelet Volume 10.4 Neutrophils % 64.9 Lymphocytes % 20.2 Monocytes % 10.0 Eosinophils % 3.9 Basophils % 0.3 Nucleated Red Blood Cells % 0.0 Neutrophils # 4.4 Lymphocytes # 1.4 Monocytes # 0.7 Eosinophils # 0.3 Basophils # 0.0 Nucleated Red Blood Cells # 0.0 Sodium Level 145 H Potassium Level 3.3 L Chloride Level 108 Carbon Dioxide Level 22 Anion Gap 18 H Blood Urea Nitrogen 12 Creatinine 1.10 H Glucose Level 89 Calcium Level 9.5 Bedside Glucose 113 103 Tobramycin Level Trough 1.2 Medications Current Medications Ondansetron HCl (Zofran Inj) 4 mg Q6H PRN IV NAUSEA AND/OR VOMITING; Start 05/02 at 16:30 Acetaminophen (Tylenol Tab) 650 mg Q6H PRN PO PAIN LEVEL 1-3 OR FEVER Last administered on 05/05/17 01:01; Admin Dose 650 MG; Start 05/02/17 at 16:30 Acetaminophen/ Hydrocodone Bitart ([place] (5/325)) 1 tab Q6H PRN PO MODERATE PAIN LEVEL 4-6; Start 05/02/17 at 16:30 Docusate Sodium (Colace) 100 mg Q12H PRN PO CONSTIPATION; Start 05/02/17 at 16: 30 Magnesium Hydroxide (Milk Of Mag) 30 ml DAILY PRN PO CONSTIPATION; Start at 16:30 Sodium Biphosphate/ Sodium Phosphate (Fleet Enema) 133 ml DAILY PRN [place] CONSTIPATION; Start 05/02/17 at 16:30 Lorazepam (Ativan) 0.5 mg Q6H PRN IV ANXIETY; Start 05/02/17 at 16:30 Hydralazine HCl (Apresoline) 10 mg Q6H PRN IV ELEVATED BLOOD PRESSURE; Start at 16:30 Nitroglycerin (Nitroglycerin (Sl Tab) 0.4 Mg) 1 tab Q5M PRN SL ANGINA; Start at 16:30 Ascorbic Acid (Vitamin C) 500 mg Q8 GTB Last administered on 05/07/17 15:28; Admin Dose 500 MG; Start 05/02/17 at 22:00 Baclofen (Lioresal) 20 mg TID GTB Last administered on 05/07/17 12:43; Admin Dose 20 MG; Start 05/02/17 at 21:00 Epoetin Andrey (Epogen (Esrd)) 10,000 units MoWeFr@17 SC Last administered on 05/05 17:28; Admin Dose 10,000 UNITS; Start 05/03/17 at 17:00 Magnesium Oxide (Mag-Ox 400) 800 mg DAILY GTB Last administered on 05/06/17 09: 35; Admin Dose 800 MG; Start 05/03/17 at 09:00 Metoclopramide HCl (Reglan) 10 mg BID GTB Last administered on 05/06/17 09:36; Admin Dose 10 MG; Start 05/02/17 at 21:00 Multivitamins Therapeutic (Theragran) 1 tab DAILY GTB Last administered on 09:36; Admin Dose 1 TAB; Start 05/03/17 at 09:00 Sucralfate (Carafate) 1 gm DAILY GTB Last administered on 05/06/17 09:36; Admin Dose 1 GM; Start 05/03/17 at 09:00 Tramadol HCl (Ultram) 100 mg DAILY GTB Last administered on 05/06/17 09:36; Admin Dose 100 MG; Start 05/03/17 at 09:00 Ferrous Sulfate (Ferrous Sulfate (Ec)) 325 mg BID PO Last administered on 09:36; Admin Dose 325 MG; Start 05/02/17 at 21:00 Insulin Detemir (Levemir) 12 unit QHS SC Last administered on 05/06/17 22:35; Admin Dose 12 UNIT; Start 05/02/17 at 21:00 Insulin Detemir (Levemir) 26 unit DAILY SC Last administered on 05/07/17 09:29 ; Admin Dose 26 UNIT; Start 05/03/17 at 09:00 Lansoprazole (Prevacid) 30 mg BID@,18 GTB Last administered on 05/06/17 05:47 ; Admin Dose 30 MG; Start 05/02/17 at 18:00 Miscellaneous Information 1 ea NOTE XX ; Start 05/02/17 at 16:30 Glucose (Glutose) 15 gm Q15M PRN PO DECREASED GLUCOSE; Start 05/02/17 at 16:30 Glucose (Glutose) 22.5 gm Q15M PRN PO DECREASED GLUCOSE; Start 05/02/17 at 16:30 Dextrose (D50w Syringe) 25 ml Q15M PRN IV DECREASED GLUCOSE; Start 05/02/17 at 16:30 Dextrose (D50w Syringe) 50 ml Q15M PRN IV DECREASED GLUCOSE; Start 05/02/17 at 16:30 Glucagon (Glucagen) 1 mg Q15M PRN IM DECREASED GLUCOSE; Start 05/02/17 at 16:30 Glucose (Glutose) 15 gm Q15M PRN BUCCAL DECREASED GLUCOSE; Start 05/02/17 at 16: 30 Epoetin Andrey (Epogen (Esrd)) 2,000 units MoWeFr@17 SC Last administered on 17:27; Admin Dose 2,000 UNITS; Start 05/03/17 at 17:00 Epoetin Andrey (Epogen (Esrd)) 3,000 units MoWeFr@17 SC Last administered on 17:29; Admin Dose 3,000 UNITS; Start 05/03/17 at 17:00 Miscellaneous Information (Pending Santyl Order For Wound Care) This patient stern... PRN PRN XX WOUND CARE; Start 05/02/17 at 22:30 Trimethoprim/ Sulfamethoxazole (Bactrim (Ds)) 1 tab BID GTB Last administered on 05/06/17 09:36; Admin Dose 1 TAB; Start 05/03/17 at 09:00 Collagenase (Santyl) 1 applic DAILY TOP Last administered on 05/07/17 09:26; Admin Dose 1 APPLIC; Start 05/03/17 at 13:00 Sodium Hypochlorite (Dakin'S (Dilute 1/40%)) 1 applic BID IRR Last administered on 05/07/17 09:26; Admin Dose 1 APPLIC; Start 05/03/17 at 15:00 Nystatin 1 applic 1 applic BID TOP Last administered on 05/07/17 09:26; Admin Dose 1 APPLIC; Start 05/03/17 at 14:30 Meropenem/Sodium Chloride (Merrem 1 Gm/50 ml (Pmx)) 50 ml @ 100 mls/hr Q12 IVPB Last administered on 05/07/17 09:26; Admin Dose 100 MLS/HR; Start 05/04/17 at 12:30 Tobramycin (Tobramycin Iv Per Pharmacy) PER PHARMACY DOSING NOTE XX ; Start 05/05 at 12:00 Morphine Sulfate (morphine) 2 mg Q4H PRN IV SEVERE PAIN LEVEL 7-10; Start at 12:00 Insulin Aspart 10 unit 10 unit Q6 SC Last administered on 05/07/17 12:47; Admin Dose 10 UNIT; Start 05/06/17 at 18:00 Tobramycin/Sodium Chloride (Tobramycin/NS) 106.25 ml @ 106.25 mls/hr Q36H IVPB ; Start 05/08/17 at 02:00 Assessment/Plan Additional Assessment/Plan IMP: 1. VDRF 2. Anemia 3. Encephalopathy 4. DM 5. MS RECS: 1. Vent orders 2. BDs 3. TFs 4. D/C planning XIN NEWBERRY MD May 07, 2017 17:47
[2017-05-08] MEDS ORDERED: TOBRAMYCIN 250 MG in SOD CHLORIDE 0.9% 100 ML IVPB SCH (02:00)
== END 2017-05-07 17:59 | DRG 682 ==
LOC: E/R 10:16 → TEL 13:31
PROVIDERS: ADMIT Internal Medicine; ATTEND Internal Medicine
PROC: 5A1955Z Respiratory Ventilation, Greater than 96 Consecutive Hours (ICD-10-PCS; principal; 2017-05-02)
PROC: 30233N1 Transfusion of Nonautologous Red Blood Cells into Peripheral Vein, Percutaneous Approach (ICD-10-PCS; 2017-05-02)
DX: I12.9 Hypertensive chronic kidney disease with stage 1 through stage 4 chronic kidney disease, or unspecified chronic kidney disease (principal); L89.893 Pressure ulcer of other site, stage 3; G82.50 Quadriplegia, unspecified; G93.1 Anoxic brain damage, not elsewhere classified; J18.9 Pneumonia, unspecified organism; N17.9 Acute kidney failure, unspecified; L89.154 Pressure ulcer of sacral region, stage 4; L89.894 Pressure ulcer of other site, stage 4; G35 Multiple sclerosis; E87.0 Hyperosmolality and hypernatremia; J96.11 Chronic respiratory failure with hypoxia; N39.0 Urinary tract infection, site not specified; K59.39 Other megacolon; E11.22 Type 2 diabetes mellitus with diabetic chronic kidney disease; E11.65 Type 2 diabetes mellitus with hyperglycemia; Z79.4 Long term (current) use of insulin; F03.90 Unspecified dementia, unspecified severity, without behavioral disturbance, psychotic disturbance, mood disturbance, and anxiety; L89.890 Pressure ulcer of other site, unstageable; L89.892 Pressure ulcer of other site, stage 2; E78.5 Hyperlipidemia, unspecified; E83.52 Hypercalcemia; E83.41 Hypermagnesemia; E86.0 Dehydration; Z93.1 Gastrostomy status; N18.9 Chronic kidney disease, unspecified; D63.1 Anemia in chronic kidney disease
CPT/HCPCS: 36415; 36430; 36600; 71010; 74000; 80048; 80053; 80061; 80200; 81001; 82270; 82803; 82962; 83036; 83735; 84100; 84439; 84443; 85025; 85610; 85730; 86078; 86644; 86850; 86870; 86900; 86901; 86920; 86945; 87081; 87086; 94002; 94003; J0886; J1815; J2185; J2270; J3260; J3480; J7040; J7050; J7070; P9016; Q4081

== ENCOUNTER 2017-07-21 19:34 | Inpatient (IN) | payer OTHER ==
[~2017-07-21] VITALS: Ht 160 cm; Wt 71.0 kg
[~2017-07-21 19:34] MED LIST changes: +ARGI1POW19 GTB; +ASCO500S2 GTB; -ATOR40TA68 GTB; -CLON-379 GTB; -DIPH25CA6 GTB; +EPO10ESRD SC; +FERR220S2 PO; -GEMF600T60 GTB; +HEP30MU30 IJ; +INSU100C SQ; -INSU100I27 SQ; +LEVEM SC; -METO-448 GTB; +METO10TA92 GTB; +MULTI GTB; +NOVO3I SC; +OMEP40CA6 GTB; -PANT40TA4 GTB; -SIME80TA GTB; +SUCR1TAB56 GTB; +TRAM-40 GTB; -ZINC220T GTB
[2017-07-21 19:48] VITALS: TEMP 100.7
[2017-07-21] MEDS ORDERED: SODIUM CHLORIDE 0.9% 1L BAG IV* STA (19:52)
[2017-07-21] MEDS ORDERED: FAMOTIDINE 20 MG INJ IV ONE (20:00)
[2017-07-21 20:21] LABS: ABNORMAL IP MESSAGE 1; HEMATOCRIT 22.8 % (37.0-47.0); MEAN CORPUSCULAR HEMOGLOBIN 22.8 pg (29.0-33.0); MEAN CORPUSCULAR HGB CONC 28.5 g/dl (32.0-37.0); MEAN PLATELET VOLUME 11.9 fl (7.4-10.4); PLATELET COUNT 362 10^3/UL (140-415); RED BLOOD COUNT 2.85 10^6/ul (4.20-5.40); WHITE BLOOD COUNT 9.7 10^3/ul (4.8-10.8)
[2017-07-21 20:27] LABS: Allen Test ACCEPTAB; Arterial COHb 0.1 % (0.0-3.0); Arterial Fraction of Oxyhgb 98.2 % (93.0-99.0); Arterial HCO3 21.1 mmol/L (22.0-26.0); Arterial MetHb 0.3 % (0.0-1.5); Arterial Total Hemglobin 12.2 g/dl (12.0-18.0); MODE VENT - AC
[2017-07-21] MEDS ORDERED: DOCU-159 GTB (20:37)
[2017-07-21] MEDS ORDERED: SUCR1TAB56 GTB (20:37)
[2017-07-21] MEDS ORDERED: MINE133E23 PR (20:38)
[2017-07-21] MEDS ORDERED: BISA10SU75 PR (20:38)
[2017-07-21 20:40] LABS: INR 1.1; PROTIME 14.2 Sec (12.2-14.2); PT RATIO 1.1
[2017-07-21 20:41] LABS: PARTIAL THROMBOPLASTIN TIME 33.9 Sec (25.0-35.0)
[2017-07-21] MEDS ORDERED: MULTI PO (20:41)
[2017-07-21] MEDS ORDERED: MAGN400O4 PO (20:41)
[2017-07-21] MEDS ORDERED: HYDR-906 GTB (20:42)
[2017-07-21 20:46] LABS: ALANINE AMINOTRANSFERASE 18 IU/L (13-69); ALBUMIN 3.9 g/dl (3.3-4.9); ALBUMIN/GLOBULIN RATIO 0.67; ALKALINE PHOSPHATASE 198 IU/L (42-121); ANION GAP 20 (8-16); ASPARTATE AMINO TRANSFERASE 20 IU/L (15-46); BLOOD UREA NITROGEN 78 mg/dl (7-20); CALCIUM 9.6 mg/dl (8.4-10.2); CARBON DIOXIDE 23 mmol/L (21-31); CHLORIDE 101 mmol/L (97-110); CREATININE 1.79 mg/dl (0.44-1.00); GLUCOSE 137 mg/dl (70-220); POTASSIUM 3.5 mmol/L (3.5-5.1); SODIUM 140 mmol/L (135-144); TOTAL PROTEIN 9.7 g/dl (6.1-8.1)
[2017-07-21 20:51] LABS: HEMOGLOBIN 6.5 g/dl (12.0-16.0); POSITIVE DIFF @See below
[2017-07-21 21:06] LABS: URINE BLOOD (Dip) POC 2+ (NEGATIVE)
[2017-07-21 21:15] LABS: TROPONIN-I < 0.012 ng/ml (0.00-0.12)
--- NOTE | 2017-07-21 21:27 | RADRPT ---
PROCEDURE: XR Chest. CLINICAL INDICATION: Sepsis. TECHNIQUE: Portable AP semi erect view of the chest was obtained. COMPARISON: 05/04/2017 FINDINGS: The cardiomediastinal silhouette is within normal limits. Tracheostomy remains in satisfactory posi tion. The lead consolidation is similar to the prior examination unable to exclude recurrent pneumon ia. The right lung is clear. There is no evidence for pleural effusion, pneumothorax or pulmonary v ascular congestion. Distal tip of the left PICC is in the superior vena cava above the right atrial junction. Diffuse decreased mineralization cannot exclude osteopenia or osteoporosis. No evidence of acute osseous abnormality. A gastrostomy tube is partially visualized below the diaphragm RPTAT:HJJR IMPRESSION: 1. Low consolidation concerning for recurrent pneumonia similar to the study of 05/04/2017. 2. Tracheostomy and left PICC in good radiographic positions. Physician Luci Date Time Electronically viewed and signed by Physician Luci on 07/21/2017 21:26 /
[2017-07-21 23:12] LABS: EOSINOPHILS # 0.4 10^3/ul (0.0-0.5); EOSINOPHILS % (M) 4 % (0.0-7.0); LYMPHOCYTES # 1.4 10^3/ul (0.8-2.9); MONOCYTE # 0.4 10^3/ul (0.3-0.9); MONOCYTES % (M) 4 % (0-11); MYELOCYTES % (M) 1 % (0-0)
[2017-07-21] MEDS ORDERED: ACETAMINOPHEN 325 MG TAB PO PRN (23:30)
[2017-07-21] MEDS ORDERED: ONDANSETRON 4 MG INJ IV PRN (23:30)
[2017-07-21 23:33] LABS: ADD UMIC YES; UR ASCORBIC ACID 40 mg/dL (NEGATIVE); UR BACTERIA FEW /HPF (NONE SEEN); UR BILIRUBIN (Dip) NEGATIVE (NEGATIVE); UR BLOOD (Dip) NEGATIVE (NEGATIVE); UR CLARITY CLOUDY (CLEAR); UR COLOR YELLOW (YELLOW); UR GLUCOSE (Dip) NEGATIVE (NEGATIVE); UR KETONES (Dip) NEGATIVE (NEGATIVE); UR LEUKOCYTE ESTERASE (Dip) 3+ Leu/ul (NEGATIVE); UR NITRITE (Dip) NEGATIVE (NEGATIVE); UR NONSQUAMOUS EPITHELIAL CELL 3 /HPF (NONE SEEN); UR RBC 37 /HPF (0-5); UR SPECIFIC GRAVITY (Dip) 1.014 (1.003-1.030); UR TOTAL PROTEIN (Dip) 2+ mg/dl (NEGATIVE); UR UROBILINOGEN (Dip) NEGATIVE (NEGATIVE)
--- NOTE | 2017-07-21 23:37 | ERD ---
ER Documentation Chief Complaint Chief Complaint damian pa from [facility] for abnormal lab results, HPI This 56-year-old female was sent from [facility] for having a low hemoglobin. She was sent by Dr. Taylor. Is unfortunate patient who is chronically on trach vent and is nonverbal at baseline. She is also noted to have a fever and tachycardia on arrival. ROS Unobtainable Medications Home Meds Reported Medications Hydrocodone/Acetaminophen ([place] 5-325 Tablet) 1 Each Tablet, 1 EACH GTB Q6 Y for SEVERE PAIN LEVEL 7-10, TAB 07/21/17 Multivitamins* (Theragran*) 1 Tab Tab, 1 TAB PO DAILY, TAB 07/21/17 Magnesium Hydroxide* (Milk Of Magnesia*) 400 Mg/5 Ml Oral.susp, 30 ML PO Q24H Y for CONSTIPATION, ML 07/21/17 Mineral Oil* (Fleet* Mineral Oil Enema) 133 Ml Oil, 133 ML ND DAILY Y for CONSTIPATION, ENEMA 07/21/17 Bisacodyl* (Bisacodyl*) 10 Mg Supp, 10 MG ND DAILY Y for CONSTIPATION, SUPP 07/21/17 Docusate Sodium* (Docusate Sodium*) 100 Mg Capsule, 100 MG GTB BID, #60 CAP 07/21/17 Sucralfate* (Carafate*) 1 Gm Tab, 1 GM GTB DAILY, TAB 07/21/17 Tramadol Hcl* (Ultram*) 50 Mg Tablet, 100 MG GTB DAILY, TAB 05/02/17 Insulin Aspart* (Novolog Insulin Pen*) 100 Unit/Ml Soln, 0 SC .SLIDING SCALE AC , EA 05/02/17 Multivitamins* (Theragran*) 1 Tab Tab, 1 TAB GTB DAILY, TAB 05/02/17 Metoclopramide* (Reglan*) 10 Mg Tablet, 10 MG GTB BID, TAB 05/02/17 Magnesium Oxide* (Magnesium Oxide*) 400 Mg Tablet, 800 MG GTB DAILY, TAB 05/02/17 Insulin Detemir (Levemir) 100 Unit/1 Ml Vial, 20 UNIT SC QHS, VIAL 05/02/17 Insulin Lispro (Humalog) 100 Unit/1 Ml Cartridge, 15 UNIT SQ Q6 05/02/17 Heparin Sod (Porcine) (Heparin) 1,000 Unit/Ml Soln, 5000 UNIT IJ Q12 05/02/17 Epoetin Andrey (Epogen) 10,000 Units/Ml Soln, 62767 UNITS SC [place], VIAL 05/02/17 Ascorbic Acid* (Ascorbic Acid*) 500 Mg/5 Ml Syrup, 500 MG GTB Q8, #150 ML 05/02/17 Arginine/Ascorbate Sod/Hannah AC (Arginaid Powder) 1 Each Powd.pack, 1 EACH GTB BID 05/02/17 Baclofen* (Baclofen*) 20 Mg Tablet, 20 MG GTB TID, TAB 10/14/16 Acetaminophen* (Acetaminophen*) 650 Mg Tablet, 650 MG GTB Q4 Y for ELEVATED TEMPERATURE, #30 TAB OR FEVER 10/14/16 Discontinued Reported Medications Omeprazole* (Omeprazole*) 40 Mg Capsule.dr, 40 MG GTB BID, #30 CAP 05/02/17 Insulin Detemir (Levemir) 100 Unit/1 Ml Vial, 26 UNIT SC DAILY, VIAL 05/02/17 Ferrous Sulfate (Ferrous Sulfate) 220 Mg/5 Ml Solution, 330 MG PO BID 05/02/17 Sucralfate* (Carafate*) 1 Gm Tab, 1 GM GTB DAILY, TAB 05/02/17 Allergies Allergies: Coded Allergies: Penicillins (Verified Allergy, Severe, 12/15/16) Cephalosporins (Verified Allergy, Unknown, FLUSHING, TACHYCARDIA, 12/15/16) levofloxacin (Verified Allergy, Unknown, 12/15/16) vancomycin (Verified Allergy, Unknown, 12/15/16) PMhx/Soc History of Surgery: Yes (GT PLACEMENT/ TRACH PLACEMENT) Anesthesia Reaction: No Hx Neurological Disorder: No (ENCEPHALOPATHY) Hx Respiratory Disorders: Yes (CHRONIC RESPIRATORY FAILURE.) Hx Cardiac Disorders: Yes (HTN) Hx Psychiatric Problems: No Hx Alcohol Use: No Hx Substance Use: No Hx Tobacco Use: No Smoking Status: Never smoker Physical Exam Vitals Vital Signs Date Time Temp Pulse Resp B/P Pulse Ox O2 Delivery O2 Flow Rate FiO2 07/21/17 19:48 100.7 83 12 103/65 100 Room Air 07/21/17 19:45 99 16 100 30 07/21/17 19:44 100.7 102 12 103/65 100 Physical Exam Const: [] Apparent moderate distress, diaphoretic Head: Atraumatic Eyes: Normal Conjunctiva ENT: Normal External Ears, Nose and Mouth. Neck: Full range of motion..~ No meningismus. Resp: Clear to auscultation bilaterally with some transmitted upper airway breath sounds from the ventilator Cardio: Regular tachycardia cardia, no murmurs Abd: Soft, not show signs of tenderness on palpation of abdomen r, non distended. Normal bowel sounds Skin: No petechiae or rashes stage II decubitus ulcers posteriorly Ext: No cyanosis, or edema distal pulses intact all 4 extremities Neur: There is corneal reflex and some response to pain Result Diagram: 07/21/17200907/21/172009 Results 24 hrs Laboratory Tests Test 07/21/17 20:10 07/21/17 20:15 07/21/17 21:06 White Blood Count 9.710^3/ul Red Blood Count 2.8510^6/ul Hemoglobin 6.5g/dl Hematocrit 22.8% Mean Corpuscular Volume 80.0fl Mean Corpuscular Hemoglobin 22.8pg Mean Corpuscular Hemoglobin Concent 28.5g/dl Red Cell Distribution Width 19.0% Platelet Count 61567^3/UL Mean Platelet Volume 11.9fl Segmented Neutrophils % (Manual) 75% Band Neutrophils % (Manual) 2% Lymphocytes % (Manual) 14% Monocytes % (Manual) 4% Eosinophils % (Manual) 4% Myelocytes % (Manual) 1% Nucleated Red Blood Cells % 0.0/100WBC Neutrophils # (Manual) 7.310^3/ul Band Neutrophils # 0.110^3/ul Absolute Lymphocytes (Manual) 1.310^3/ul Lymphocytes # 1.410^3/ul Monocytes # 0.410^3/ul Absolute Monocytes (Manual) 0.310^3/ul Eosinophils # 0.410^3/ul Myelocytes # 0.010^3/ul Prothrombin Time 14.2Sec Prothrombin Time Ratio 1.1 INR International Normalized Ratio 1.10 Activated Partial Thromboplast Time 33.9Sec Sodium Level 140mmol/L Potassium Level 3.5mmol/L Chloride Level 101mmol/L Carbon Dioxide Level 23mmol/L Anion Gap 20 Blood Urea Nitrogen 78mg/dl Creatinine 1.79mg/dl Glucose Level 137mg/dl Lactic Acid Level 2.3mmol/L Calcium Level 9.6mg/dl Total Bilirubin 0.0mg/dl Direct Bilirubin 0.00mg/dl Indirect Bilirubin 0.0mg/dl Aspartate Amino Transf (AST/SGOT) 20IU/L Alanine Aminotransferase (ALT/SGPT) 18IU/L Alkaline Phosphatase 198IU/L Troponin I < 0.012ng/ml Total Protein 9.7g/dl Albumin 3.9g/dl Globulin 5.80g/dl Albumin/Globulin Ratio 0.67 Blood Gas Specimen Source Blood arterial Arterial Blood Date Drawn 07/21/2017 8:20:19 PM Arterial Blood pH (Temp corrected) 7.400 Arterial Blood pCO2 (Temp correct) 34.9mmhg Arterial Blood pO2 (Temp corrected) 139.9mmHG Arterial Blood HCO3 21.1mmol/L Arterial Blood Base Excess -3.0mmol/L Arterial Blood Oxygen Saturation 98.6mmHG Tristian Test ACCEPTAB Arterial Blood Gas Puncture Site Right Radial Arterial Blood Carboxyhemoglobin 0.1% Arterial Blood Methemoglobin 0.3% Blood Gas A-a O2 Differential 33.0mmHg Oxyhemoglobin Percent 98.2% Total Hemoglobin 12.2g/dl Blood Gas Temperature 37.0C Blood Gas Respiration Rate 10.0 Blood Gas Actual Respiration Rate 12 Blood Gas Modality VENT - AC FiO2 30.0% Blood Gas Tidal Volume 500.0mL Blood Gas Low PEEP Setting 5.0cmH2O Blood Gas Inspiratory Pressure 22.0 Blood Gas Notified Whom BR Blood Gas Notified Time 07/21/2017 8:27:11 PM Bedside Urine pH (LAB) 6.0 Bedside Urine Protein (LAB) 2+ Bedside Urine Glucose (UA) Negative Bedside Urine Ketones (LAB) Negative Bedside Urine Blood 2+ Bedside Urine Nitrite (LAB) Negative Bedside Urine Leukocyte Esterase (L 3+ Current Medications Medications (Trade) Dose Ordered Sig/Charlie Route PRN Reason Start Time Stop Time Status Last Admin Dose Admin Sodium Chloride (NS) 2,200 ml BOLUS OVER 2 HOURS STAT IV* 07/21/17 19:52 07/21/17 20:02 DC 07/21/17 20:11 Famotidine (Pepcid Iv) 20 mg ONCE ONCE IV 07/21/17 20:00 07/21/17 20:02 DC 07/21/17 20:11 Ondansetron HCl (Zofran Inj) 4 mg ER BRIDGE PRN IV NAUSEA AND/OR VOMITING 07/21/17 23:30 07/22/17 23:29 Acetaminophen 650 mg 650 mg ER BRIDGE PRN PO MILD PAIN/FEVER 07/21/17 23:30 07/22/17 23:29 Meropenem/Sodium Chloride (Merrem 1 Gm/50 ml (Pmx)) 50 ml @ 100 mls/hr Q12 IVPB 07/21/17 23:30 Procedures/MDM She with acute anemia as well as sepsis due to UTI and possibly pneumonia. And initially unstable vital signs. Doses of sepsis was not made until an hour and 45 minutes after the patient's arrival secondary to computer downtime and inability to obtain laboratory results. She is Moses been given 30 cc/kg of IV fluid. She remains stable on a baseline ventilator settings. She was then given meropenem because she has multiple allergies including penicillins, however recent studies are shown very little cross-reactivity between carboplatinum's and penicillin allergy and Pseudomonas coverage is desired. She is being transfused 2 units beginning in the emergency room. Her vital signs and condition has stabilized with treatment. She is being admitted to Dr. Taylor EKG interpretation: Normal sinus rhythm rate 92, normal axis, no ST or T-wave changes concerning for acute ischemia, QT 497 security monitor interpretation: Initial sinus tachycardia followed by normal sinus rhythm no other arrhythmias. Chest x-ray interpretation I see no acute process, I see no change from prior x- ray. No widened mediastinum, no pulmonary edema, no pneumothorax, no fractures. Radiologist mentions possible low consolidation but does not describe laterality. Critical care time greater than 35 minutes: This includes treatment of sepsis from possible multiple sources including UTI and pneumonia, as well as unstable vital signs contributed to by severe anemia requiring transfusion, multiple visits patient's bedside to reassess status, ventilator management, review of chart, discussion with admitting doctor. This does not include billable procedures Departure Diagnosis: Primary Impression: Sepsis secondary to UTI Additional Impressions: Microcytic anemia Severe anemia Renal insufficiency Condition: Serious ARLETTE HEBERT DO Jul 21, 2017 23:37
[2017-07-22] VITALS (24 sets, daily range): BP systolic 94–103; BP diastolic 56–62; PULSE 82–110; RESP 11–18; Ht 160 cm; Wt 71.0 kg
[2017-07-22] MEDS: MEROPENEM 1 GM/50ML(PMX) 50 ML IVPB SCH ×3 (00:30→21:55)
[2017-07-22] MEDS ORDERED: PENDING SANTYL ORDER FOR WOUND CARE XX PRN (03:30)
[2017-07-22] MEDS ORDERED: BISACODYL 10 MG SUPP PR PRN (05:30)
[2017-07-22] MEDS ORDERED: HYDROCODONE/APAP (5/325) TAB GTB PRN (05:30)
[2017-07-22] MEDS ORDERED: MAGNESIUM HYDROXIDE 30ML CUP PO PRN (05:30)
[2017-07-22] MEDS ORDERED: MINERAL OIL 133 ML ENEMA PR PRN (05:30)
[2017-07-22] MEDS: ASCORBIC ACID 500 MG TAB GTB SCH ×3 (06:08→21:56)
[2017-07-22] MEDS: INSULIN ASPART [NOVOLOG] 3 ML PEN SC SCH ×3 (06:31→18:13)
[2017-07-22] MEDS ORDERED: SOD CHLORIDE 0.9% 500 ML IV ONE (07:00)
[2017-07-22] MEDS: DOCUSATE SODIUM 10 MG/ML (10ML CUP) GTB SCH ×2 (09:11→21:55)
[2017-07-22] MEDS: MAGNESIUM OXIDE 400 MG TAB GTB SCH (09:12)
[2017-07-22] MEDS: SUCRALFATE 1 GM TAB GTB SCH (09:12)
[2017-07-22] MEDS: traMADol 50 MG TAB GTB SCH (09:12)
[2017-07-22] MEDS: MULTIVITAMINS THERAPEUTIC TAB GTB SCH (09:13)
[2017-07-22] MEDS: METOCLOPRAMIDE 10 MG TAB GTB SCH ×2 (09:13→21:56)
[2017-07-22] MEDS: BACLOFEN 10 MG TAB GTB SCH ×3 (09:14→21:56)
[2017-07-22] MEDS: NPH, HUMAN INSULIN ISOPHANE 3ML VIAL SC SCH (09:23)
--- NOTE | 2017-07-22 13:39 | CONS ---
Date/Time of Note Date/Time of Note DATE: 07/22/17 TIME: 13:39 Assessment/Plan Assessment/Plan Additional Assessment/Plan 1. Acute kidney injury due to ATN From sepsis 2. Sepsis due to UTI 3. Chronic resp failure s/p Tracheostomy on ventilator 4/ Anemia of chronic disease 5/ HTN Plan : IVF NS at 70 cc/hr IV meropenem BP stable, renally dose all abx Expectign Cr to improve with IVF hydration and IV abx for UTI no need for renal US at this time Thanks for consultation, we will continue to follow up on patient Consultation Date/Type/Reason Admit Date/Time Jul 21, 2017 at 23:24 Date of Consultation: Jul 22, 2017 Type of Consultation: NEPHROLOGY Reason for Consultation acute kidney injury Cr 1.79, severe anemia, possible GI bleeding Referring Provider: CASEY TAYLOR MD Hx of Present Illness 56-year-old female was sent from [facility] for having a low hemoglobin. She was sent by Dr. Taylor. Is unfortunate patient who is chronically on trach vent and is nonverbal at baseline. She is also noted to have a fever and tachycardia on arrival. She is noted to have elevated Cr 1.79 and sepsis due to UTI.Renal has been consulted for it. Subjective hx not possible: pt non-verbal Past Medical History Medical History: other (chronic resp failure s/p tracheostomy on ventilator ) Past Surgical History Past Surgical Hx: other (Tracheostomy, G tube placement ) Family History Significant Family History: no pertinent family hx Social History Alcohol Use: none Smoking Status: Never smoker Drug Use: none Exam/Review of Systems Vital Signs Vitals Vital Signs Date Time Temp Pulse Resp B/P Pulse Ox O2 Delivery O2 Flow Rate FiO2 07/22/17 12:10 89 07/22/17 11:21 98.3 16 96/58 100 07/22/17 08:53 30 07/21/17 19:48 Room Air Exam Constitutional: non-verbal Psych: no complaints Head: normocephalic Eyes: nl conjunctiva Neck: non-tender, supple Respiratory: crackles/rales, diminished breath sounds Cardiovascular: nl pulses, regular rate and rhythm Gastrointestinal: non-tender, soft Musculoskeletal: nl extremities to inspection Extremities: normal pulses Results Result Diagram: 07/21/17200907/21/172009 Results 24 hrs Laboratory Tests Test 07/21/17 20:10 07/21/17 20:15 07/21/17 21:06 07/21/17 22:00 White Blood Count 9.7 # Red Blood Count 2.85 #L Hemoglobin 6.5 #*L Hematocrit 22.8 #L Mean Corpuscular Volume 80.0 L Mean Corpuscular Hemoglobin 22.8 L Mean Corpuscular Hemoglobin Concent 28.5 L Red Cell Distribution Width 19.0 H Platelet Count 362 Mean Platelet Volume 11.9 H Segmented Neutrophils % (Manual) 75 Band Neutrophils % (Manual) 2 Lymphocytes % (Manual) 14 L Monocytes % (Manual) 4 Eosinophils % (Manual) 4 Myelocytes % (Manual) 1 H Nucleated Red Blood Cells % 0.0 Neutrophils # (Manual) 7.3 Band Neutrophils # 0.1 Absolute Lymphocytes (Manual) 1.3 Lymphocytes # 1.4 Monocytes # 0.4 Absolute Monocytes (Manual) 0.3 Eosinophils # 0.4 Myelocytes # 0.0 Prothrombin Time 14.2 Prothrombin Time Ratio 1.1 INR International Normalized Ratio 1.10 Activated Partial Thromboplast Time 33.9 Sodium Level 140 Potassium Level 3.5 Chloride Level 101 Carbon Dioxide Level 23 Anion Gap 20 H Blood Urea Nitrogen 78 H Creatinine 1.79 H Glucose Level 137 Lactic Acid Level 2.3 *H Calcium Level 9.6 Total Bilirubin 0.0 L Direct Bilirubin 0.00 Indirect Bilirubin 0.0 Aspartate Amino Transf (AST/SGOT) 20 Alanine Aminotransferase (ALT/SGPT) 18 Alkaline Phosphatase 198 H Troponin I < 0.012 Total Protein 9.7 H Albumin 3.9 Globulin 5.80 H Albumin/Globulin Ratio 0.67 Blood Gas Specimen Source Blood arterial Arterial Blood Date Drawn 07/21/2017 8:20:19 PM Arterial Blood pH (Temp corrected) 7.400 Arterial Blood pCO2 (Temp correct) 34.9 L Arterial Blood pO2 (Temp corrected) 139.9 H Arterial Blood HCO3 21.1 L Arterial Blood Base Excess -3.0 Arterial Blood Oxygen Saturation 98.6 H Tristian Test ACCEPTAB Arterial Blood Gas Puncture Site Right Radial Arterial Blood Carboxyhemoglobin 0.1 Arterial Blood Methemoglobin 0.3 Blood Gas A-a O2 Differential 33.0 H Oxyhemoglobin Percent 98.2 Total Hemoglobin 12.2 Blood Gas Temperature 37.0 Blood Gas Respiration Rate 10.0 Blood Gas Actual Respiration Rate 12 Blood Gas Modality VENT - AC FiO2 30.0 Blood Gas Tidal Volume 500.0 Blood Gas Low PEEP Setting 5.0 Blood Gas Inspiratory Pressure 22.0 Blood Gas Notified Whom BR Blood Gas Notified Time 07/21/2017 8:27:11 PM Bedside Urine pH (LAB) 6.0 Bedside Urine Protein (LAB) 2+ H Bedside Urine Glucose (UA) Negative Bedside Urine Ketones (LAB) Negative Bedside Urine Blood 2+ H Bedside Urine Nitrite (LAB) Negative Bedside Urine Leukocyte Esterase (L 3+ H Urine Color YELLOW Urine Clarity CLOUDY A Urine pH 6.0 Urine Specific [place] 1.014 Urine Ketones NEGATIVE Urine Nitrite NEGATIVE Urine Bilirubin NEGATIVE Urine Urobilinogen NEGATIVE Urine Leukocyte Esterase 3+ H Urine Microscopic RBC 37 H Urine Microscopic WBC > 182 H Urine Bacteria FEW A Urine Hemoglobin NEGATIVE Urine Glucose NEGATIVE Urine Total Protein 2+ H Test 07/21/17 23:00 07/22/17 02:30 07/22/17 06:02 07/22/17 11:39 Lactic Acid Level 1.9 1.9 Bedside Glucose 157 174 Medications Medications Current Medications Meropenem/Sodium Chloride (Merrem 1 Gm/50 ml (Pmx)) 50 ml @ 100 mls/hr Q12 IVPB Last administered on 07/22/17 09:56; Admin Dose 100 MLS/HR; Start 07/21 at 23:30 Miscellaneous Information (Pending [facility] Order For Wound Care) This patient stern... PRN PRN XX WOUND CARE; Start 07/22/17 at 03:30 Insulin Aspart (Novolog Insulin Pen) NOVOLOG *MILD* ALGORI... Q6 SC Last administered on 07/22/17 11:44; Admin Dose 1 UNIT; Start 07/22/17 at 06:00 Insulin Human NPH (Humulin N) 16 unit DAILY@08 SC Last administered on 09:23; Admin Dose 16 UNIT; Start 07/22/17 at 08:00 Acetaminophen (Tylenol Tab) 650 mg Q4 PRN GTB ELEVATED TEMPERATURE; Start at 05:30 Ascorbic Acid (Vitamin C) 500 mg Q8 GTB Last administered on 07/22/17 06:08; Admin Dose 500 MG; Start 07/22/17 at 06:00 Baclofen (Lioresal) 20 mg TID GTB Last administered on 07/22/17 09:14; Admin Dose 20 MG; Start 07/22/17 at 09:00 Bisacodyl (Dulcolax Supp) 10 mg DAILY PRN [place] CONSTIPATION; Start 07/22/17 at 05:30 Docusate Sodium (Colace Liquid Cup) 100 mg BID GTB Last administered on 09:11; Admin Dose 100 MG; Start 07/22/17 at 09:00 Epoetin Andrey (Epogen (Esrd)) 15,000 units MoWeFr@17 SC ; Start 07/24/17 at 17: 00 Magnesium Hydroxide (Milk Of Mag) 30 ml Q24H PRN PO CONSTIPATION; Start at 05:30 Magnesium Oxide (Mag-Ox 400) 800 mg DAILY GTB Last administered on 07/22/17 09:12; Admin Dose 800 MG; Start 07/22/17 at 09:00 Metoclopramide HCl (Reglan) 10 mg BID GTB Last administered on 07/22/17 09:13 ; Admin Dose 10 MG; Start 07/22/17 at 09:00 Mineral Oil (Fleet Mineral Oil Enema) 133 ml DAILY PRN [place] CONSTIPATION; Start 07/22/17 at 05:30 Multivitamins Therapeutic (Theragran) 1 tab DAILY GTB Last administered on 09:13; Admin Dose 1 TAB; Start 07/22/17 at 09:00 Sucralfate (Carafate) 1 gm DAILY GTB Last administered on 07/22/17 09:12; Admin Dose 1 GM; Start 07/22/17 at 09:00 Tramadol HCl (Ultram) 100 mg DAILY GTB Last administered on 07/22/17 09:12; Admin Dose 100 MG; Start 07/22/17 at 09:00 Acetaminophen/ Hydrocodone Bitart 1 tab 1 tab Q6H PRN GTB PAIN LEVEL 7-10; Start 07/22/17 at 05:30 Sodium Chloride (NS) 1,000 ml @ 70 mls/hr [id number] IV ; Start 07/22/17 at 12:30 LIZETTE ALEX MD Jul 22, 2017 13:39
--- NOTE | 2017-07-22 14:43 | CONS ---
Date/Time of Note Date/Time of Note DATE: 07/22/17 TIME: 14:37 Assessment/Plan Assessment/Plan Chief Complaint/Hosp Course Impression: 1. anemia, r/o GIB 2. microcytosis, r/o iron deficiency 3. sepsis with UTI and PNA 4. dysphagia Recommendations: 1. continue tube feeds 2. routine PEG care 3. send stool for occult blood to distinguish between anemia from GIB vs chronic disease 4. add protonix bid dosing until occult blood result. If occult negative, can dc protonix 5. treat UTI and PNA per primary Problems: Consultation Date/Type/Reason Admit Date/Time Jul 21, 2017 at 23:24 Date of Consultation: Jul 22, 2017 Type of Consultation: GI Reason for Consultation anemia, r/o GIB Hx of Present Illness 56-year-old female was sent from [facility] for having a low hemoglobin. She was sent by Dr. Taylor. Is unfortunate patient who is chronically on trach vent and is nonverbal at baseline. She is also noted to have a fever and tachycardia on arrival. ER w/u showed severe anemia with hgb 6.5. GI is called to r/o GIB Subjective hx not possible: pt non-verbal Past Medical History respiratory failure, encephalopathy Medical History: hypertension Past Surgical History Past Surgical Hx: other Family History Significant Family History: no pertinent family hx Social History Alcohol Use: none Smoking Status: Never smoker Drug Use: none Exam/Review of Systems Vital Signs Vitals Vital Signs Date Time Temp Pulse Resp B/P Pulse Ox O2 Delivery O2 Flow Rate FiO2 07/22/17 12:10 89 07/22/17 11:21 98.3 16 96/58 100 07/22/17 08:53 30 07/21/17 19:48 Room Air Exam Constitutional: non-verbal Psych: confusion Head: atraumatic, normocephalic Eyes: nl conjunctiva, nl lids, nl sclera ENMT: mucosa pink and moist, nl external ears & nose, nl lips & teeth, nl nasal mucosa & septum Neck: non-tender, supple Respiratory: clear to auscultation, normal air movement Cardiovascular: nl pulses, regular rate and rhythm Gastrointestinal: bowel sounds, non-tender, soft Neurological: confused, lethargic Results Result Diagram: 07/21/17200907/21/172009 Results 24 hrs Laboratory Tests Test 07/21/17 20:10 07/21/17 20:15 07/21/17 21:06 07/21/17 22:00 White Blood Count 9.7 # Red Blood Count 2.85 #L Hemoglobin 6.5 #*L Hematocrit 22.8 #L Mean Corpuscular Volume 80.0 L Mean Corpuscular Hemoglobin 22.8 L Mean Corpuscular Hemoglobin Concent 28.5 L Red Cell Distribution Width 19.0 H Platelet Count 362 Mean Platelet Volume 11.9 H Segmented Neutrophils % (Manual) 75 Band Neutrophils % (Manual) 2 Lymphocytes % (Manual) 14 L Monocytes % (Manual) 4 Eosinophils % (Manual) 4 Myelocytes % (Manual) 1 H Nucleated Red Blood Cells % 0.0 Neutrophils # (Manual) 7.3 Band Neutrophils # 0.1 Absolute Lymphocytes (Manual) 1.3 Lymphocytes # 1.4 Monocytes # 0.4 Absolute Monocytes (Manual) 0.3 Eosinophils # 0.4 Myelocytes # 0.0 Prothrombin Time 14.2 Prothrombin Time Ratio 1.1 INR International Normalized Ratio 1.10 Activated Partial Thromboplast Time 33.9 Sodium Level 140 Potassium Level 3.5 Chloride Level 101 Carbon Dioxide Level 23 Anion Gap 20 H Blood Urea Nitrogen 78 H Creatinine 1.79 H Glucose Level 137 Lactic Acid Level 2.3 *H Calcium Level 9.6 Total Bilirubin 0.0 L Direct Bilirubin 0.00 Indirect Bilirubin 0.0 Aspartate Amino Transf (AST/SGOT) 20 Alanine Aminotransferase (ALT/SGPT) 18 Alkaline Phosphatase 198 H Troponin I < 0.012 Total Protein 9.7 H Albumin 3.9 Globulin 5.80 H Albumin/Globulin Ratio 0.67 Blood Gas Specimen Source Blood arterial Arterial Blood Date Drawn 07/21/2017 8:20:19 PM Arterial Blood pH (Temp corrected) 7.400 Arterial Blood pCO2 (Temp correct) 34.9 L Arterial Blood pO2 (Temp corrected) 139.9 H Arterial Blood HCO3 21.1 L Arterial Blood Base Excess -3.0 Arterial Blood Oxygen Saturation 98.6 H Tristian Test ACCEPTAB Arterial Blood Gas Puncture Site Right Radial Arterial Blood Carboxyhemoglobin 0.1 Arterial Blood Methemoglobin 0.3 Blood Gas A-a O2 Differential 33.0 H Oxyhemoglobin Percent 98.2 Total Hemoglobin 12.2 Blood Gas Temperature 37.0 Blood Gas Respiration Rate 10.0 Blood Gas Actual Respiration Rate 12 Blood Gas Modality VENT - AC FiO2 30.0 Blood Gas Tidal Volume 500.0 Blood Gas Low PEEP Setting 5.0 Blood Gas Inspiratory Pressure 22.0 Blood Gas Notified Whom BR Blood Gas Notified Time 07/21/2017 8:27:11 PM Bedside Urine pH (LAB) 6.0 Bedside Urine Protein (LAB) 2+ H Bedside Urine Glucose (UA) Negative Bedside Urine Ketones (LAB) Negative Bedside Urine Blood 2+ H Bedside Urine Nitrite (LAB) Negative Bedside Urine Leukocyte Esterase (L 3+ H Urine Color YELLOW Urine Clarity CLOUDY A Urine pH 6.0 Urine Specific [place] 1.014 Urine Ketones NEGATIVE Urine Nitrite NEGATIVE Urine Bilirubin NEGATIVE Urine Urobilinogen NEGATIVE Urine Leukocyte Esterase 3+ H Urine Microscopic RBC 37 H Urine Microscopic WBC > 182 H Urine Bacteria FEW A Urine Hemoglobin NEGATIVE Urine Glucose NEGATIVE Urine Total Protein 2+ H Test 07/21/17 23:00 07/22/17 02:30 07/22/17 06:02 07/22/17 11:39 Lactic Acid Level 1.9 1.9 Bedside Glucose 157 174 Medications Medications Current Medications Meropenem/Sodium Chloride (Merrem 1 Gm/50 ml (Pmx)) 50 ml @ 100 mls/hr Q12 IVPB Last administered on 07/22/17 09:56; Admin Dose 100 MLS/HR; Start 07/21 at 23:30 Miscellaneous Information (Pending [facility] Order For Wound Care) This patient stern... PRN PRN XX WOUND CARE; Start 07/22/17 at 03:30 Insulin Aspart (Novolog Insulin Pen) NOVOLOG *MILD* ALGORI... Q6 SC Last administered on 07/22/17 11:44; Admin Dose 1 UNIT; Start 07/22/17 at 06:00 Insulin Human NPH (Humulin N) 16 unit DAILY@08 SC Last administered on 09:23; Admin Dose 16 UNIT; Start 07/22/17 at 08:00 Acetaminophen (Tylenol Tab) 650 mg Q4 PRN GTB ELEVATED TEMPERATURE; Start at 05:30 Ascorbic Acid (Vitamin C) 500 mg Q8 GTB Last administered on 07/22/17 06:08; Admin Dose 500 MG; Start 07/22/17 at 06:00 Baclofen (Lioresal) 20 mg TID GTB Last administered on 07/22/17 09:14; Admin Dose 20 MG; Start 07/22/17 at 09:00 Bisacodyl (Dulcolax Supp) 10 mg DAILY PRN [place] CONSTIPATION; Start 07/22/17 at 05:30 Docusate Sodium (Colace Liquid Cup) 100 mg BID GTB Last administered on 09:11; Admin Dose 100 MG; Start 07/22/17 at 09:00 Epoetin Andrey (Epogen (Esrd)) 15,000 units MoWeFr@17 SC ; Start 07/24/17 at 17: 00 Magnesium Hydroxide (Milk Of Mag) 30 ml Q24H PRN [place] CONSTIPATION; Start at 05:30 Magnesium Oxide (Mag-Ox 400) 800 mg DAILY GTB Last administered on 07/22/17 09:12; Admin Dose 800 MG; Start 07/22/17 at 09:00 Metoclopramide HCl (Reglan) 10 mg BID GTB Last administered on 07/22/17 09:13 ; Admin Dose 10 MG; Start 07/22/17 at 09:00 Mineral Oil (Fleet Mineral Oil Enema) 133 ml DAILY PRN [place] CONSTIPATION; Start 07/22/17 at 05:30 Multivitamins Therapeutic (Theragran) 1 tab DAILY GTB Last administered on 09:13; Admin Dose 1 TAB; Start 07/22/17 at 09:00 Sucralfate (Carafate) 1 gm DAILY GTB Last administered on 07/22/17 09:12; Admin Dose 1 GM; Start 07/22/17 at 09:00 Tramadol HCl (Ultram) 100 mg DAILY GTB Last administered on 07/22/17 09:12; Admin Dose 100 MG; Start 07/22/17 at 09:00 Acetaminophen/ Hydrocodone Bitart 1 tab 1 tab Q6H PRN GTB PAIN LEVEL 7-10; Start 07/22/17 at 05:30 Sodium Chloride (NS) 1,000 ml @ 70 mls/hr [id number] IV ; Start 07/22/17 at 12:30 ALEXANDRIA GARCIA MD Jul 22, 2017 14:43
--- NOTE | 2017-07-22 14:51 | HP ---
Date/Time of Note Date/Time of Note DATE: 07/22/17 TIME: 14:40 Assessment/Plan VTE Prophylaxis VTE Prophylaxis Intervention: SCD's Lines/Catheters IV [facility] (from [facility] PICC Line Urinary Cath still in place: Yes Assessment/Plan Chief Complaint/Hosp Course -Sepsis secondary to UTI - ID consult- Dr Zavaleta notified - TDRF - pulmonary consult- Dr Thomas notified -Microcytic anemia - GI consult- Neo Ruiz notified -Severe anemia -Renal insufficiency - Dr Marlon Blue notified - Diabetes Mellitus w/ hyperglycemia - Glycemic control - Dysphagia- SP gt placement - aspiration precautions - Encephalopathy- no acute issues - SCD for DVT prophylaxis - Protonix for GI Prophylaxis Plan of care dw Dr Taylor Problems: HPI/ROS Admit Date/Time Admit Date/Time Jul 21, 2017 at 23:24 Hx of Present Illness HPI This 56-year-old female was sent from [facility] for having a low hemoglobin. She was sent by Dr. Taylor. Is unfortunate patient who is chronically on trach vent and is nonverbal at baseline. She is also noted to have a fever and tachycardia on arrival. ROS Unobtainable Allergies Allergies: Coded Allergies: Penicillins (Verified Allergy, Severe, 12/15/16) Cephalosporins (Verified Allergy, Unknown, FLUSHING, TACHYCARDIA, 12/15/16) levofloxacin (Verified Allergy, Unknown, 12/15/16) vancomycin (Verified Allergy, Unknown, 12/15/16) PMH/Family/Social Past Medical History PMhx/Soc History of Surgery: Yes (GT PLACEMENT/ TRACH PLACEMENT) Anesthesia Reaction: No Hx Neurological Disorder: No (ENCEPHALOPATHY) Hx Respiratory Disorders: Yes (CHRONIC RESPIRATORY FAILURE.) Hx Cardiac Disorders: Yes (HTN) Hx Psychiatric Problems: No Hx Alcohol Use: No Hx Substance Use: No Hx Tobacco Use: No Smoking Status: Never smoker Past Surgical History Past Surgical Hx: other Social History Smoking Status: Never smoker Exam/Review of Systems Vital Signs Vitals Vital Signs Date Time Temp Pulse Resp B/P Pulse Ox O2 Delivery O2 Flow Rate FiO2 07/22/17 12:10 89 07/22/17 11:21 98.3 16 96/58 100 07/22/17 08:53 30 07/21/17 19:48 Room Air Labs Result Diagram: 07/21/17200907/21/172009 Medications Medications Current Medications Meropenem/Sodium Chloride (Merrem 1 Gm/50 ml (Pmx)) 50 ml @ 100 mls/hr Q12 IVPB Last administered on 07/22/17 09:56; Admin Dose 100 MLS/HR; Start 07/21 at 23:30 Miscellaneous Information (Pending Santyl Order For Wound Care) This patient stern... PRN PRN XX WOUND CARE; Start 07/22/17 at 03:30 Insulin Aspart (Novolog Insulin Pen) NOVOLOG *MILD* ALGORI... Q6 SC Last administered on 07/22/17 11:44; Admin Dose 1 UNIT; Start 07/22/17 at 06:00 Insulin Human NPH (Humulin N) 16 unit DAILY@08 SC Last administered on 09:23; Admin Dose 16 UNIT; Start 07/22/17 at 08:00 Acetaminophen (Tylenol Tab) 650 mg Q4 PRN GTB ELEVATED TEMPERATURE; Start at 05:30 Ascorbic Acid (Vitamin C) 500 mg Q8 GTB Last administered on 07/22/17 06:08; Admin Dose 500 MG; Start 07/22/17 at 06:00 Baclofen (Lioresal) 20 mg TID GTB Last administered on 07/22/17 09:14; Admin Dose 20 MG; Start 07/22/17 at 09:00 Bisacodyl (Dulcolax Supp) 10 mg DAILY PRN [place] CONSTIPATION; Start 07/22/17 at 05:30 Docusate Sodium (Colace Liquid Cup) 100 mg BID GTB Last administered on 09:11; Admin Dose 100 MG; Start 07/22/17 at 09:00 Epoetin Andrey (Epogen (Esrd)) 15,000 units MoWeFr@17 SC ; Start 07/24/17 at 17: 00 Magnesium Hydroxide (Milk Of Mag) 30 ml Q24H PRN [place] CONSTIPATION; Start at 05:30 Magnesium Oxide (Mag-Ox 400) 800 mg DAILY GTB Last administered on 07/22/17 09:12; Admin Dose 800 MG; Start 07/22/17 at 09:00 Metoclopramide HCl (Reglan) 10 mg BID GTB Last administered on 07/22/17 09:13 ; Admin Dose 10 MG; Start 07/22/17 at 09:00 Mineral Oil (Fleet Mineral Oil Enema) 133 ml DAILY PRN [place] CONSTIPATION; Start 07/22/17 at 05:30 Multivitamins Therapeutic (Theragran) 1 tab DAILY GTB Last administered on 09:13; Admin Dose 1 TAB; Start 07/22/17 at 09:00 Sucralfate (Carafate) 1 gm DAILY GTB Last administered on 07/22/17 09:12; Admin Dose 1 GM; Start 07/22/17 at 09:00 Tramadol HCl (Ultram) 100 mg DAILY GTB Last administered on 07/22/17 09:12; Admin Dose 100 MG; Start 07/22/17 at 09:00 Acetaminophen/ Hydrocodone Bitart 1 tab 1 tab Q6H PRN GTB PAIN LEVEL 7-10; Start 07/22/17 at 05:30 Sodium Chloride (NS) 1,000 ml @ 70 mls/hr [id number] IV ; Start 07/22/17 at 12:30 Pantoprazole (Protonix Iv) 40 mg BID@06,18 IV ; Start 07/22/17 at 18:00 KATE LANDAVERDE Jul 22, 2017 14:51
[2017-07-22] MEDS ORDERED: GLUCOSE GEL 15 GRAM TUBE BUCCAL PRN (15:00)
[2017-07-22] MEDS ORDERED: DEXTROSE 50% 50 ML SYRINGE IV PRN ×2 (15:00)
[2017-07-22] MEDS ORDERED: GLUCAGON 1 MG INJ IM PRN (15:00)
[2017-07-22] MEDS ORDERED: GLUCOSE GEL 15 GRAM TUBE PO PRN ×2 (15:00)
[2017-07-22] MEDS: PANTOPRAZOLE 40 MG INJ IV SCH (17:56)
[2017-07-22] MEDS: SOD CHLORIDE 0.9% 1,000 ML IV SCH (17:57)
--- NOTE | 2017-07-22 18:08 | CONS ---
Date/Time of Note Date/Time of Note DATE: 07/22/17 TIME: 18:05 Assessment/Plan Assessment/Plan Additional Assessment/Plan IMP: 1. Anemia--r/o GIB 2. Urosepsis 3. VDRF 4. Encephalopathy RECS: 1. Vent support 2. BD's/CPT 3. Abx 4. GIB w/u Consultation Date/Type/Reason Admit Date/Time Jul 21, 2017 at 23:24 Type of Consultation: Pulm Hx of Present Illness This is a 56-year-old female with history of VDRF, chronic encepalopathy, PEG, who was sent from [facility] for having a low hemoglobin and urosepsis Subjective hx not possible: pt non-verbal Psychological: confusion Past Medical History Medical History: hypertension Past Surgical History Past Surgical Hx: other Social History Alcohol Use: none Smoking Status: Never smoker Drug Use: none Exam/Review of Systems Vital Signs Vitals Vital Signs Date Time Temp Pulse Resp B/P Pulse Ox O2 Delivery O2 Flow Rate FiO2 07/22/17 17:29 89 12 100 30 07/22/17 15:19 98.3 96/56 07/21/17 19:48 Room Air Exam Constitutional: non-verbal Eyes: nl conjunctiva, nl sclera ENMT: intubated, mucosa pink and moist, nl external ears & nose Neck: non-tender, supple Respiratory: clear to auscultation Cardiovascular: nl pulses, regular rate and rhythm Gastrointestinal: nl liver, spleen, non-tender, soft Musculoskeletal: nl extremities to inspection, nl gait and stance Extremities: normal pulses Results Result Diagram: 07/21/17200907/21/172009 Results 24 hrs Laboratory Tests Test 07/21/17 20:10 07/21/17 20:15 07/21/17 21:06 07/21/17 22:00 White Blood Count 9.7 # Red Blood Count 2.85 #L Hemoglobin 6.5 #*L Hematocrit 22.8 #L Mean Corpuscular Volume 80.0 L Mean Corpuscular Hemoglobin 22.8 L Mean Corpuscular Hemoglobin Concent 28.5 L Red Cell Distribution Width 19.0 H Platelet Count 362 Mean Platelet Volume 11.9 H Segmented Neutrophils % (Manual) 75 Band Neutrophils % (Manual) 2 Lymphocytes % (Manual) 14 L Monocytes % (Manual) 4 Eosinophils % (Manual) 4 Myelocytes % (Manual) 1 H Nucleated Red Blood Cells % 0.0 Neutrophils # (Manual) 7.3 Band Neutrophils # 0.1 Absolute Lymphocytes (Manual) 1.3 Lymphocytes # 1.4 Monocytes # 0.4 Absolute Monocytes (Manual) 0.3 Eosinophils # 0.4 Myelocytes # 0.0 Prothrombin Time 14.2 Prothrombin Time Ratio 1.1 INR International Normalized Ratio 1.10 Activated Partial Thromboplast Time 33.9 Sodium Level 140 Potassium Level 3.5 Chloride Level 101 Carbon Dioxide Level 23 Anion Gap 20 H Blood Urea Nitrogen 78 H Creatinine 1.79 H Glucose Level 137 Lactic Acid Level 2.3 *H Calcium Level 9.6 Total Bilirubin 0.0 L Direct Bilirubin 0.00 Indirect Bilirubin 0.0 Aspartate Amino Transf (AST/SGOT) 20 Alanine Aminotransferase (ALT/SGPT) 18 Alkaline Phosphatase 198 H Troponin I < 0.012 Total Protein 9.7 H Albumin 3.9 Globulin 5.80 H Albumin/Globulin Ratio 0.67 Blood Gas Specimen Source Blood arterial Arterial Blood Date Drawn 07/21/2017 8:20:19 PM Arterial Blood pH (Temp corrected) 7.400 Arterial Blood pCO2 (Temp correct) 34.9 L Arterial Blood pO2 (Temp corrected) 139.9 H Arterial Blood HCO3 21.1 L Arterial Blood Base Excess -3.0 Arterial Blood Oxygen Saturation 98.6 H Tristian Test ACCEPTAB Arterial Blood Gas Puncture Site Right Radial Arterial Blood Carboxyhemoglobin 0.1 Arterial Blood Methemoglobin 0.3 Blood Gas A-a O2 Differential 33.0 H Oxyhemoglobin Percent 98.2 Total Hemoglobin 12.2 Blood Gas Temperature 37.0 Blood Gas Respiration Rate 10.0 Blood Gas Actual Respiration Rate 12 Blood Gas Modality VENT - AC FiO2 30.0 Blood Gas Tidal Volume 500.0 Blood Gas Low PEEP Setting 5.0 Blood Gas Inspiratory Pressure 22.0 Blood Gas Notified Whom BR Blood Gas Notified Time 07/21/2017 8:27:11 PM Bedside Urine pH (LAB) 6.0 Bedside Urine Protein (LAB) 2+ H Bedside Urine Glucose (UA) Negative Bedside Urine Ketones (LAB) Negative Bedside Urine Blood 2+ H Bedside Urine Nitrite (LAB) Negative Bedside Urine Leukocyte Esterase (L 3+ H Urine Color YELLOW Urine Clarity CLOUDY A Urine pH 6.0 Urine Specific [place] 1.014 Urine Ketones NEGATIVE Urine Nitrite NEGATIVE Urine Bilirubin NEGATIVE Urine Urobilinogen NEGATIVE Urine Leukocyte Esterase 3+ H Urine Microscopic RBC 37 H Urine Microscopic WBC > 182 H Urine Bacteria FEW A Urine Hemoglobin NEGATIVE Urine Glucose NEGATIVE Urine Total Protein 2+ H Test 07/21/17 23:00 07/22/17 02:30 07/22/17 06:02 07/22/17 11:39 Lactic Acid Level 1.9 1.9 Bedside Glucose 157 174 Test 07/22/17 17:45 Bedside Glucose 199 Medications Medications Current Medications Meropenem/Sodium Chloride (Merrem 1 Gm/50 ml (Pmx)) 50 ml @ 100 mls/hr Q12 IVPB Last administered on 07/22/17 09:56; Admin Dose 100 MLS/HR; Start 07/21 at 23:30 Miscellaneous Information (Pending [facility] Order For Wound Care) This patient stern... PRN PRN XX WOUND CARE; Start 07/22/17 at 03:30 Insulin Aspart (Novolog Insulin Pen) NOVOLOG *MILD* ALGORI... Q6 SC Last administered on 07/22/17 11:44; Admin Dose 1 UNIT; Start 07/22/17 at 06:00 Insulin Human NPH (Humulin N) 16 unit DAILY@08 SC Last administered on 09:23; Admin Dose 16 UNIT; Start 07/22/17 at 08:00 Acetaminophen (Tylenol Tab) 650 mg Q4 PRN GTB ELEVATED TEMPERATURE; Start at 05:30 Ascorbic Acid (Vitamin C) 500 mg Q8 GTB Last administered on 07/22/17 06:08; Admin Dose 500 MG; Start 07/22/17 at 06:00 Baclofen (Lioresal) 20 mg TID GTB Last administered on 07/22/17 09:14; Admin Dose 20 MG; Start 07/22/17 at 09:00 Bisacodyl (Dulcolax Supp) 10 mg DAILY PRN [place] CONSTIPATION; Start 07/22/17 at 05:30 Docusate Sodium (Colace Liquid Cup) 100 mg BID GTB Last administered on 09:11; Admin Dose 100 MG; Start 07/22/17 at 09:00 Epoetin Andrey (Epogen (Esrd)) 15,000 units MoWeFr@17 SC ; Start 07/24/17 at 17: 00 Magnesium Hydroxide (Milk Of Mag) 30 ml Q24H PRN PO CONSTIPATION; Start at 05:30 Magnesium Oxide (Mag-Ox 400) 800 mg DAILY GTB Last administered on 07/22/17 09:12; Admin Dose 800 MG; Start 07/22/17 at 09:00 Metoclopramide HCl (Reglan) 10 mg BID GTB Last administered on 07/22/17 09:13 ; Admin Dose 10 MG; Start 07/22/17 at 09:00 Mineral Oil (Fleet Mineral Oil Enema) 133 ml DAILY PRN [place] CONSTIPATION; Start 07/22/17 at 05:30 Multivitamins Therapeutic (Theragran) 1 tab DAILY GTB Last administered on 09:13; Admin Dose 1 TAB; Start 07/22/17 at 09:00 Sucralfate (Carafate) 1 gm DAILY GTB Last administered on 07/22/17 09:12; Admin Dose 1 GM; Start 07/22/17 at 09:00 Tramadol HCl (Ultram) 100 mg DAILY GTB Last administered on 07/22/17 09:12; Admin Dose 100 MG; Start 07/22/17 at 09:00 Acetaminophen/ Hydrocodone Bitart 1 tab 1 tab Q6H PRN GTB PAIN LEVEL 7-10; Start 07/22/17 at 05:30 Sodium Chloride (NS) 1,000 ml @ 70 mls/hr [id number] IV ; Start 07/22/17 at 12:30 Pantoprazole (Protonix Iv) 40 mg BID@06,18 IV ; Start 07/22/17 at 18:00 Miscellaneous Information 1 ea NOTE XX ; Start 07/22/17 at 15:00 Glucose (Glutose) 15 gm Q15M PRN PO DECREASED GLUCOSE; Start 07/22/17 at 15:00 Glucose (Glutose) 22.5 gm Q15M PRN PO DECREASED GLUCOSE; Start 07/22/17 at 15: 00 Dextrose (D50w Syringe) 25 ml Q15M PRN IV DECREASED GLUCOSE; Start 07/22/17 at 15:00 Dextrose (D50w Syringe) 50 ml Q15M PRN IV DECREASED GLUCOSE; Start 07/22/17 at 15:00 Glucagon (Glucagen) 1 mg Q15M PRN IM DECREASED GLUCOSE; Start 07/22/17 at 15: 00 Glucose (Glutose) 15 gm Q15M PRN BUCCAL DECREASED GLUCOSE; Start 07/22/17 at 15:00 XIN NEWBERRY MD Jul 22, 2017 18:08
[2017-07-23] VITALS (24 sets, daily range): BP systolic 101–117; BP diastolic 59–72; PULSE 95–114; RESP 12–19
[2017-07-23] MEDS: INSULIN ASPART [NOVOLOG] 3 ML PEN SC SCH ×4 (01:00→18:03)
[2017-07-23] MEDS ORDERED: ACCU-CHEK XX SCH (02:00)
[2017-07-23] MEDS: SOD CHLORIDE 0.9% 1,000 ML IV SCH (02:48)
[2017-07-23] MEDS: PANTOPRAZOLE 40 MG INJ IV SCH ×2 (05:19→18:00)
[2017-07-23] MEDS: ASCORBIC ACID 500 MG TAB GTB SCH ×3 (05:19→21:00)
--- NOTE | 2017-07-23 08:00 | CONS ---
Date/Time of Note Date/Time of Note DATE: 07/23/17 TIME: 07:58 Assessment/Plan Assessment/Plan Chief Complaint/Hosp Course Impression: 1. anemia, r/o GIB 2. microcytosis, r/o iron deficiency 3. sepsis with UTI and PNA 4. dysphagia Recommendations: 1. continue tube feeds 2. routine PEG care 3. send stool for occult blood to distinguish between anemia from GIB vs chronic disease 4. add protonix bid dosing until occult blood result. If occult negative, can dc protonix 5. treat UTI and PNA per primary 6. await iron panel result, if low, pls replete with iv iron for faster repletion Problems: Consultation Date/Type/Reason Admit Date/Time Jul 21, 2017 at 23:24 Initial Consult Date 07/22/17 Type of Consultation: GI Referring Provider: CASEY ALEXANDER MD 24 HR Interval Summary Free Text/Dictation no e/o overt GIB Exam/Review of Systems Vital Signs Vitals Vital Signs Date Time Temp Pulse Resp B/P Pulse Ox O2 Delivery O2 Flow Rate FiO2 07/23/17 07:41 98.8 110 18 101/59 100 07/23/17 04:51 30 07/21/17 19:48 Room Air Intake and Output 07/22/17 07/22/17 07/23/17 15:00 23:00 07:00 Intake Total 770 ml 1460 ml 960 ml Output Total 800 ml 1000 ml 1600 ml Balance -30 ml 460 ml -640 ml Exam Constitutional: non-verbal Head: atraumatic, normocephalic Eyes: EOMI, nl conjunctiva ENMT: mucosa pink and moist, nl external ears & nose, nl lips & teeth, nl nasal mucosa & septum Neck: non-tender, supple Respiratory: clear to auscultation, normal air movement Cardiovascular: nl pulses, regular rate and rhythm Gastrointestinal: bowel sounds, non-tender, soft Results Result Diagram: 07/21/17200907/21/172009 Results 24 hrs Laboratory Tests Test 07/22/17 11:39 07/22/17 17:45 07/23/17 00:51 07/23/17 05:17 Bedside Glucose 174 199 281 H 280 H Test 07/23/17 06:01 Lab Scanned Report BLOOD TRANSFUSION Medications Medications Current Medications Meropenem/Sodium Chloride (Merrem 1 Gm/50 ml (Pmx)) 50 ml @ 100 mls/hr Q12 IVPB Last administered on 07/22/17 21:55; Admin Dose 100 MLS/HR; Start 07/21 at 23:30 Miscellaneous Information (Pending Santyl Order For Wound Care) This patient stern... PRN PRN XX WOUND CARE; Start 07/22/17 at 03:30 Insulin Aspart (Novolog Insulin Pen) NOVOLOG *MILD* ALGORI... Q6 SC Last administered on 07/23/17 05:58; Admin Dose 8 UNIT; Start 07/22/17 at 06:00 Insulin Human NPH (Humulin N) 16 unit DAILY@08 SC Last administered on 09:23; Admin Dose 16 UNIT; Start 07/22/17 at 08:00 Acetaminophen (Tylenol Tab) 650 mg Q4 PRN GTB ELEVATED TEMPERATURE; Start at 05:30 Ascorbic Acid (Vitamin C) 500 mg Q8 GTB Last administered on 07/23/17 05:19; Admin Dose 500 MG; Start 07/22/17 at 06:00 Baclofen (Lioresal) 20 mg TID GTB Last administered on 07/22/17 21:56; Admin Dose 20 MG; Start 07/22/17 at 09:00 Bisacodyl (Dulcolax Supp) 10 mg DAILY PRN [place] CONSTIPATION; Start 07/22/17 at 05:30 Docusate Sodium (Colace Liquid Cup) 100 mg BID GTB Last administered on 21:55; Admin Dose 100 MG; Start 07/22/17 at 09:00 Epoetin Andrey (Epogen (Esrd)) 15,000 units MoWeFr@17 SC ; Start 07/24/17 at 17: 00 Magnesium Hydroxide (Milk Of Mag) 30 ml Q24H PRN PO CONSTIPATION; Start at 05:30 Magnesium Oxide (Mag-Ox 400) 800 mg DAILY GTB Last administered on 07/22/17 09:12; Admin Dose 800 MG; Start 07/22/17 at 09:00 Metoclopramide HCl (Reglan) 10 mg BID GTB Last administered on 07/22/17 21:56 ; Admin Dose 10 MG; Start 07/22/17 at 09:00 Mineral Oil (Fleet Mineral Oil Enema) 133 ml DAILY PRN [place] CONSTIPATION; Start 07/22/17 at 05:30 Multivitamins Therapeutic (Theragran) 1 tab DAILY GTB Last administered on 09:13; Admin Dose 1 TAB; Start 07/22/17 at 09:00 Sucralfate (Carafate) 1 gm DAILY GTB Last administered on 07/22/17 09:12; Admin Dose 1 GM; Start 07/22/17 at 09:00 Tramadol HCl (Ultram) 100 mg DAILY GTB Last administered on 07/22/17 09:12; Admin Dose 100 MG; Start 07/22/17 at 09:00 Acetaminophen/ Hydrocodone Bitart 1 tab 1 tab Q6H PRN GTB PAIN LEVEL 7-10; Start 07/22/17 at 05:30 Sodium Chloride (NS) 1,000 ml @ 70 mls/hr [id number] IV Last administered on 17:57; Admin Dose 70 MLS/HR; Start 07/22/17 at 12:30 Pantoprazole (Protonix Iv) 40 mg BID@06,18 IV Last administered on 07/23/17 05:19; Admin Dose 40 MG; Start 07/22/17 at 18:00 Miscellaneous Information 1 ea NOTE XX ; Start 07/22/17 at 15:00 Glucose (Glutose) 15 gm Q15M PRN PO DECREASED GLUCOSE; Start 07/22/17 at 15:00 Glucose (Glutose) 22.5 gm Q15M PRN PO DECREASED GLUCOSE; Start 07/22/17 at 15: 00 Dextrose (D50w Syringe) 25 ml Q15M PRN IV DECREASED GLUCOSE; Start 07/22/17 at 15:00 Dextrose (D50w Syringe) 50 ml Q15M PRN IV DECREASED GLUCOSE; Start 07/22/17 at 15:00 Glucagon (Glucagen) 1 mg Q15M PRN IM DECREASED GLUCOSE; Start 07/22/17 at 15: 00 Glucose (Glutose) 15 gm Q15M PRN BUCCAL DECREASED GLUCOSE; Start 07/22/17 at 15:00 ALEXANDRIA GARCIA MD Jul 23, 2017 08:00
[2017-07-23 08:03] LABS: BASOPHILS % 0.4 % (0.0-2.0); EOSINOPHILS # 0.2 10^3/ul (0.0-0.5); EOSINOPHILS % 2.5 % (0.0-7.0); HEMATOCRIT 31.2 % (37.0-47.0); HEMOGLOBIN 9.2 g/dl (12.0-16.0); LYMPHOCYTES # 0.8 10^3/ul (0.8-2.9); LYMPHOCYTES % 11.3 % (15.0-51.0); MEAN CORPUSCULAR HEMOGLOBIN 24.6 pg (29.0-33.0); MEAN CORPUSCULAR HGB CONC 29.5 g/dl (32.0-37.0); MEAN CORPUSCULAR VOLUME 83.4 fl (82.0-101.0); MEAN PLATELET VOLUME 11.7 fl (7.4-10.4); MONOCYTE # 0.3 10^3/ul (0.3-0.9); MONOCYTES % 4.7 % (0.0-11.0); NEUTROPHIL # 5.8 10^3/ul (1.6-7.5); NEUTROPHILS % 79.5 % (39.0-77.0); PLATELET COUNT 312 10^3/UL (140-415); RED BLOOD COUNT 3.74 10^6/ul (4.20-5.40); RED CELL DISTRIBUTION WIDTH 18.4 % (11.5-14.5); WHITE BLOOD COUNT 7.3 10^3/ul (4.8-10.8)
[2017-07-23 08:20] LABS: IRON 22 ug/dl (35-150)
[2017-07-23 08:22] LABS: CALCIUM 9.1 mg/dl (8.4-10.2); CREATININE 1.02 mg/dl (0.44-1.00); POTASSIUM 3.9 mmol/L (3.5-5.1)
[2017-07-23 08:29] LABS: TOTAL IRON BINDING CAPACITY 180 ug/dl (241-421)
[2017-07-23] MEDS: BACLOFEN 10 MG TAB GTB SCH ×3 (09:30→20:46)
[2017-07-23] MEDS: DOCUSATE SODIUM 10 MG/ML (10ML CUP) GTB SCH ×2 (09:30→20:46)
[2017-07-23] MEDS: SUCRALFATE 1 GM TAB GTB SCH (09:30)
[2017-07-23] MEDS: MAGNESIUM OXIDE 400 MG TAB GTB SCH (09:31)
[2017-07-23] MEDS: traMADol 50 MG TAB GTB SCH (09:31)
[2017-07-23] MEDS: MULTIVITAMINS THERAPEUTIC TAB GTB SCH (09:31)
[2017-07-23] MEDS: METOCLOPRAMIDE 10 MG TAB GTB SCH ×2 (09:31→20:46)
[2017-07-23] MEDS: NPH, HUMAN INSULIN ISOPHANE 3ML VIAL SC SCH ×2 (09:44→18:05)
--- NOTE | 2017-07-23 11:11 | CONS ---
Date/Time of Note Date/Time of Note DATE: 07/23/17 TIME: 11:10 Assessment/Plan Assessment/Plan Additional Assessment/Plan 1. Acute kidney injury due to ATN From sepsis + prerenal azotemia 2. Sepsis due to UTI 3. Chronic resp failure s/p Tracheostomy on ventilator 4/ Anemia of chronic disease 5/ HTN Plan : Cr improved with IVF hydartion but Na trending up, d/c NS, change it to 1/2 NS at 70 cc/hr IV meropenem BP stable, renally dose all abx Expecting Cr to improve with IVF hydration and IV abx for UTI no need for renal US at this time will follow up Consultation Date/Type/Reason Admit Date/Time Jul 21, 2017 at 23:24 Initial Consult Date 07/22/17 Type of Consultation: NEPHROLOGY Referring Provider: CASEY ALEXANDER MD 24 HR Interval Summary Free Text/Dictation Na 146, Cr improving with IVF hydration Exam/Review of Systems Vital Signs Vitals Vital Signs Date Time Temp Pulse Resp B/P Pulse Ox O2 Delivery O2 Flow Rate FiO2 07/23/17 08:12 114 07/23/17 07:41 98.8 18 101/59 100 07/23/17 04:51 30 07/21/17 19:48 Room Air Intake and Output 07/22/17 07/22/17 07/23/17 15:00 23:00 07:00 Intake Total 770 ml 1460 ml 960 ml Output Total 800 ml 1000 ml 1600 ml Balance -30 ml 460 ml -640 ml Exam Constitutional: non-verbal, + tracheostomy on ventilator Neck: non-tender, supple Respiratory: crackles/rales, diminished breath sounds Cardiovascular: nl pulses, regular rate and rhythm Gastrointestinal: non-tender, soft, +G tube Musculoskeletal: dry skin, pedal pulses 2+ Extremities: normal pulses Results Result Diagram: 07/23/17 0655 07/23/17 0655 Results 24 hrs Laboratory Tests Test 07/22/17 11:39 07/22/17 17:45 07/23/17 00:51 07/23/17 05:17 Bedside Glucose 174 199 281 H 280 H Test 07/23/17 06:01 07/23/17 06:55 Lab Scanned Report BLOOD TRANSFUSION White Blood Count 7.3 # Red Blood Count 3.74 #L Hemoglobin 9.2 #L Hematocrit 31.2 #L Mean Corpuscular Volume 83.4 Mean Corpuscular Hemoglobin 24.6 L Mean Corpuscular Hemoglobin Concent 29.5 L Red Cell Distribution Width 18.4 H Platelet Count 312 Mean Platelet Volume 11.7 H Neutrophils % 79.5 H Lymphocytes % 11.3 L Monocytes % 4.7 Eosinophils % 2.5 Basophils % 0.4 Nucleated Red Blood Cells % 0.0 Neutrophils # 5.8 Lymphocytes # 0.8 Monocytes # 0.3 Eosinophils # 0.2 Basophils # 0.0 Nucleated Red Blood Cells # 0.0 Sodium Level 146 H Potassium Level 3.9 Chloride Level 110 Carbon Dioxide Level 22 Anion Gap 18 H Blood Urea Nitrogen 38 #H Creatinine 1.02 H Glucose Level 235 H Calcium Level 9.1 Iron Level 22 L Total Iron Binding Capacity 180 L Percent Iron Saturation 12 L Medications Medications Current Medications Meropenem/Sodium Chloride (Merrem 1 Gm/50 ml (Pmx)) 50 ml @ 100 mls/hr Q12 IVPB Last administered on 07/22/17 21:55; Admin Dose 100 MLS/HR; Start 07/21 at 23:30 Misc[facility] This patient stern... PRN PRN XX WOUND CARE; Start 07/22/17 at 03:30 Insulin Aspart (Novolog Insulin Pen) NOVOLOG *MILD* ALGORI... Q6 SC Last administered on 07/23/17 05:58; Admin Dose 8 UNIT; Start 07/22/17 at 06:00 Insulin Human NPH (Humulin N) 16 unit DAILY@08 SC Last administered on 09:44; Admin Dose 16 UNIT; Start 07/22/17 at 08:00 Acetaminophen (Tylenol Tab) 650 mg Q4 PRN GTB ELEVATED TEMPERATURE; Start at 05:30 Ascorbic Acid (Vitamin C) 500 mg Q8 GTB Last administered on 07/23/17 05:19; Admin Dose 500 MG; Start 07/22/17 at 06:00 Baclofen (Lioresal) 20 mg TID GTB Last administered on 07/23/17 09:30; Admin Dose 20 MG; Start 07/22/17 at 09:00 Bisacodyl (Dulcolax Supp) 10 mg DAILY PRN [place] CONSTIPATION; Start 07/22/17 at 05:30 Docusate Sodium (Colace Liquid Cup) 100 mg BID GTB Last administered on 09:30; Admin Dose 100 MG; Start 07/22/17 at 09:00 Epoetin Andrey (Epogen (Esrd)) 15,000 units MoWeFr@17 SC ; Start 07/24/17 at 17: 00 Magnesium Hydroxide (Milk Of Mag) 30 ml Q24H PRN [place] CONSTIPATION; Start at 05:30 Magnesium Oxide (Mag-Ox 400) 800 mg DAILY GTB Last administered on 07/23/17 09:31; Admin Dose 800 MG; Start 07/22/17 at 09:00 Metoclopramide HCl (Reglan) 10 mg BID GTB Last administered on 07/23/17 09:31 ; Admin Dose 10 MG; Start 07/22/17 at 09:00 Mineral Oil (Fleet Mineral Oil Enema) 133 ml DAILY PRN [place] CONSTIPATION; Start 07/22/17 at 05:30 Multivitamins Therapeutic (Theragran) 1 tab DAILY GTB Last administered on 09:31; Admin Dose 1 TAB; Start 07/22/17 at 09:00 Sucralfate (Carafate) 1 gm DAILY GTB Last administered on 07/23/17 09:30; Admin Dose 1 GM; Start 07/22/17 at 09:00 Tramadol HCl (Ultram) 100 mg DAILY GTB Last administered on 07/23/17 09:31; Admin Dose 100 MG; Start 07/22/17 at 09:00 Acetaminophen/ Hydrocodone Bitart 1 tab 1 tab Q6H PRN GTB PAIN LEVEL 7-10; Start 07/22/17 at 05:30 Sodium Chloride (NS) 1,000 ml @ 70 mls/hr [id number] IV Last administered on 17:57; Admin Dose 70 MLS/HR; Start 07/22/17 at 12:30 Pantoprazole (Protonix Iv) 40 mg BID@06,18 IV Last administered on 07/23/17 05:19; Admin Dose 40 MG; Start 07/22/17 at 18:00 Miscellaneous Information 1 ea NOTE XX ; Start 07/22/17 at 15:00 Glucose (Glutose) 15 gm Q15M PRN PO DECREASED GLUCOSE; Start 07/22/17 at 15:00 Glucose (Glutose) 22.5 gm Q15M PRN PO DECREASED GLUCOSE; Start 07/22/17 at 15: 00 Dextrose (D50w Syringe) 25 ml Q15M PRN IV DECREASED GLUCOSE; Start 07/22/17 at 15:00 Dextrose (D50w Syringe) 50 ml Q15M PRN IV DECREASED GLUCOSE; Start 07/22/17 at 15:00 Glucagon (Glucagen) 1 mg Q15M PRN IM DECREASED GLUCOSE; Start 07/22/17 at 15: 00 Glucose (Glutose) 15 gm Q15M PRN BUCCAL DECREASED GLUCOSE; Start 07/22/17 at 15:00 LIZETTE ALEX MD Jul 23, 2017 11:11
[2017-07-23] MEDS: MEROPENEM 1 GM/50ML(PMX) 50 ML IVPB SCH ×2 (11:23→20:54)
--- NOTE | 2017-07-23 12:49 | CONS ---
DATE OF ADMISSION: 07/21/2017 DATE OF CONSULTATION: 07/22/2017 TYPE OF CONSULTATION: Infectious Disease. REASON FOR CONSULTATION: Antibiotic management. HISTORY OF PRESENT ILLNESS: Paige Pollard is a 56-year-old female who was sent from [facility] with a low hemoglobin and is being seen for antibiotic management. Her past problem s include: 1. Respiratory failure with tracheostomy. 2. G-tube placement. 3. Encephalopathy. 4. Chronic respiratory failure. 5. Hypertension. 6. PICC line placement. 7. Chronic urinary catheter. Acutely, the patient comes in with a white count of 9.7, H and H 6.5 and 22.8, platelet count 362,00 0. BUN and creatinine 78/1.79. Random glucose of 137. Urine shows 3+ leukocyte esterase, greater than 182 white cells per high-power field and is cloudy. Lactic acid was 2.3. BUN and creatinine 7 8/1.79. Her alk phos was 198. Chest x-ray was low consolidation concerning recurrent pneumonia ___ __ on 05/04/2017, tracheostomy and left PICC in good radiographic positions. PAST MEDICAL HISTORY: As outlined. PAST SURGICAL HISTORY: Status post tracheostomy, status post G-tube placement. SOCIAL HISTORY: She does not smoke, drink or abuse drugs. ALLERGIES: PENICILLIN, CEPHALOSPORINS, LEVAQUIN AND VANCOMYCIN. MEDICATIONS: Per chart. REVIEW OF SYSTEMS: As per HPI. PHYSICAL EXAMINATION: GENERAL: The patient is a nonverbal female who is awake, noncommunicative, no acute distress. VITAL SIGNS: Stable. She is afebrile. SKIN: Without generalized rash. HEENT: Within normal limits. NECK: Supple. Lymph nodes nonpalpable. She has a tracheostomy in place. SKIN: She has a PICC line on the left side in the superior vena cava. CHEST: Decreased breath sounds at the bases. HEART: Without murmur or gallop. ABDOMEN: Soft, nontender, without organosplenomegaly or masses. G-tube in place. EXTREMITIES: Without cyanosis, clubbing or edema. RECTAL: Deferred. GENITAL: Deferred. NEUROLOGIC: No focal neurological abnormalities. IMPRESSION AND PLAN: Paige Pollard is an unfortunate 56-year-old female essentially encephalo pathic with trach, percutaneous endoscopic gastrostomy, Jole and PICC line who has what appears to be a urinary tract infection though she has a chronic Joel catheter. SHE IS ALLERGIC TO MULTIPLE A NTIBIOTICS and was placed on meropenem which is a reasonable choice until we find out what she is gr owing. I will dictate my findings to Dr. Taylor, Dr. Johnny Blue and . Dictated By: CRISTINA HUANG MD, JD/HERI Conf#: [id number] DID#: [id number]
[2017-07-23] MEDS: SOD FERRIC GLUC COMPLX 125 MG in SOD CHLORIDE 0.9% 100 ML IVPB SCH (13:50)
[2017-07-23] MEDS: SOD CHLORIDE 0.45% 1,000 ML IV SCH (13:50)
--- NOTE | 2017-07-23 15:39 | PN ---
Date/Time of Note Date/Time of Note DATE: 07/23/17 TIME: 15:23 Assessment/Plan VTE Prophylaxis VTE Prophylaxis Intervention: other Lines/Catheters IV Catheter Type (from Nrsg): PICC Line Central line still needed: Yes Urinary Cath still in place: Yes Reason Cath still needed: urinary retention Assessment/Plan Assessment/Plan -Sepsis secondary to UTI - ID consult- Dr Zavaleta notified - TDRF - pulmonary consult- Dr Thomas notified -Microcytic anemia - GI consult- Neo Ruiz notified -Severe anemia -Renal insufficiency - Dr Marlon Blue notified - Diabetes Mellitus w/ hyperglycemia - Glycemic control - Dysphagia- SP gt placement - aspiration precautions - Diabetes Mellitus - Glycemic control - Encephalopathy- no acute issues - SCD for DVT prophylaxis - Protonix for GI Prophylaxis Endocrinology consult will be appreciated. Plan of care dw Dr Taylor Subjective 24 Hr Interval Summary Free Text/Dictation Afebrile, tachy, VRE stool pos today, ID follows, Hyperglycemic- insulin adjusted, dw staff Subjective hx not possible: pt non-verbal Constitutional: requiring IVF, requiring O2 Exam/Review of Systems Vital Signs Vitals Vital Signs Date Time Temp Pulse Resp B/P Pulse Ox O2 Delivery O2 Flow Rate FiO2 07/23/17 15:02 98 15 100 30 07/23/17 12:09 99.2 115/59 07/21/17 19:48 Room Air Intake and Output 07/22/17 07/22/17 07/23/17 15:00 23:00 07:00 Intake Total 770 ml 1460 ml 960 ml Output Total 800 ml 1000 ml 1600 ml Balance -30 ml 460 ml -640 ml Exam Constitutional: non-verbal Neck: other (trach intact) Respiratory: diminished breath sounds, normal air movement Cardiovascular: nl pulses, other (S1S2) Gastrointestinal: non-tender, soft Musculoskeletal: muscle weakness Neurological: unresponsive Skin: other Results Result Diagram: 07/23/17 0655 07/23/17 0655 Results 24 hrs Laboratory Tests Test 07/22/17 17:45 07/23/17 00:51 07/23/17 05:17 07/23/17 06:01 Bedside Glucose 199 281 H 280 H Lab Scanned Report BLOOD TRANSFUSION Test 07/23/17 06:55 07/23/17 12:30 White Blood Count 7.3 # Red Blood Count 3.74 #L Hemoglobin 9.2 #L Hematocrit 31.2 #L Mean Corpuscular Volume 83.4 Mean Corpuscular Hemoglobin 24.6 L Mean Corpuscular Hemoglobin Concent 29.5 L Red Cell Distribution Width 18.4 H Platelet Count 312 Mean Platelet Volume 11.7 H Neutrophils % 79.5 H Lymphocytes % 11.3 L Monocytes % 4.7 Eosinophils % 2.5 Basophils % 0.4 Nucleated Red Blood Cells % 0.0 Neutrophils # 5.8 Lymphocytes # 0.8 Monocytes # 0.3 Eosinophils # 0.2 Basophils # 0.0 Nucleated Red Blood Cells # 0.0 Sodium Level 146 H Potassium Level 3.9 Chloride Level 110 Carbon Dioxide Level 22 Anion Gap 18 H Blood Urea Nitrogen 38 #H Creatinine 1.02 H Glucose Level 235 H Calcium Level 9.1 Iron Level 22 L Total Iron Binding Capacity 180 L Percent Iron Saturation 12 L Bedside Glucose 271 H Medications Medications Current Medications Meropenem/Sodium Chloride (Merrem 1 Gm/50 ml (Pmx)) 50 ml @ 100 mls/hr Q12 IVPB Last administered on 07/23/17 11:23; Admin Dose 100 MLS/HR; Start 07/21 at 23:30 Misc[facility] This patient stern... PRN PRN XX WOUND CARE; Start 07/22/17 at 03:30 Insulin Aspart (Novolog Insulin Pen) NOVOLOG *MILD* ALGORI... Q6 SC Last administered on 07/23/17 12:34; Admin Dose 4 UNIT; Start 07/22/17 at 06:00 Insulin Human NPH (Humulin N) 16 unit DAILY@08 SC Last administered on 09:44; Admin Dose 16 UNIT; Start 07/22/17 at 08:00 Acetaminophen (Tylenol Tab) 650 mg Q4 PRN GTB ELEVATED TEMPERATURE; Start at 05:30 Ascorbic Acid (Vitamin C) 500 mg Q8 GTB Last administered on 07/23/17 13:50; Admin Dose 500 MG; Start 07/22/17 at 06:00 Baclofen (Lioresal) 20 mg TID GTB Last administered on 07/23/17 13:50; Admin Dose 20 MG; Start 07/22/17 at 09:00 Bisacodyl (Dulcolax Supp) 10 mg DAILY PRN [place] CONSTIPATION; Start 07/22/17 at 05:30 Docusate Sodium (Colace Liquid Cup) 100 mg BID GTB Last administered on 09:30; Admin Dose 100 MG; Start 07/22/17 at 09:00 Epoetin Andrey (Epogen (Esrd)) 15,000 units MoWeFr@17 SC ; Start 07/24/17 at 17: 00 Magnesium Hydroxide (Milk Of Mag) 30 ml Q24H PRN PO CONSTIPATION; Start at 05:30 Magnesium Oxide (Mag-Ox 400) 800 mg DAILY GTB Last administered on 07/23/17 09:31; Admin Dose 800 MG; Start 07/22/17 at 09:00 Metoclopramide HCl (Reglan) 10 mg BID GTB Last administered on 07/23/17 09:31 ; Admin Dose 10 MG; Start 07/22/17 at 09:00 Mineral Oil (Fleet Mineral Oil Enema) 133 ml DAILY PRN [place] CONSTIPATION; Start 07/22/17 at 05:30 Multivitamins Therapeutic (Theragran) 1 tab DAILY GTB Last administered on 09:31; Admin Dose 1 TAB; Start 07/22/17 at 09:00 Sucralfate (Carafate) 1 gm DAILY GTB Last administered on 07/23/17 09:30; Admin Dose 1 GM; Start 07/22/17 at 09:00 Tramadol HCl (Ultram) 100 mg DAILY GTB Last administered on 07/23/17 09:31; Admin Dose 100 MG; Start 07/22/17 at 09:00 Acetaminophen/ Hydrocodone Bitart ([place] (5/325)) 1 tab Q6H PRN GTB PAIN LEVEL 7-10; Start 07/22/17 at 05:30 Pantoprazole (Protonix Iv) 40 mg BID@06,18 IV Last administered on 07/23/17 05:19; Admin Dose 40 MG; Start 07/22/17 at 18:00 Miscellaneous Information 1 ea NOTE XX ; Start 07/22/17 at 15:00 Glucose (Glutose) 15 gm Q15M PRN PO DECREASED GLUCOSE; Start 07/22/17 at 15:00 Glucose (Glutose) 22.5 gm Q15M PRN PO DECREASED GLUCOSE; Start 07/22/17 at 15: 00 Dextrose (D50w Syringe) 25 ml Q15M PRN IV DECREASED GLUCOSE; Start 07/22/17 at 15:00 Dextrose (D50w Syringe) 50 ml Q15M PRN IV DECREASED GLUCOSE; Start 07/22/17 at 15:00 Glucagon (Glucagen) 1 mg Q15M PRN IM DECREASED GLUCOSE; Start 07/22/17 at 15: 00 Glucose 15 gm 15 gm Q15M PRN BUCCAL DECREASED GLUCOSE; Start 07/22/17 at 15:00 Sodium Chloride 1,000 ml @ 70 mls/hr [id number] IV Last administered on 13:50; Admin Dose 70 MLS/HR; Start 07/23/17 at 11:30 Ferric Sodium Gluconate Complex/ Sodium Chloride (Ferrlecit/NS) 110 ml @ 110 mls/hr Q24H IVPB Last administered on 07/23/17 13:50; Admin Dose 110 MLS/HR; Start 07/23/17 at 12:30; Stop 07/27/17 at 13:29 KATE LANDAVERDE Jul 23, 2017 15:39
--- NOTE | 2017-07-23 16:46 | CONS ---
Date/Time of Note Date/Time of Note DATE: 07/23/17 TIME: 16:42 Consult Date/Type/Reason Admit Date/Time Jul 21, 2017 at 23:24 Initial Consult Date 07/22/17 Type of Consultation: Pulm Ordering Provider: CASEY ALEXANDER MD Subjective No events. Remains on vent. Objective Vital Signs Date Time Temp Pulse Resp B/P Pulse Ox O2 Delivery O2 Flow Rate FiO2 07/23/17 16:16 102 07/23/17 15:35 98.7 19 106/67 100 07/23/17 15:02 30 07/21/17 19:48 Room Air Intake and Output 07/22/17 07/22/17 07/23/17 15:00 23:00 07:00 Intake Total 770 ml 1460 ml 960 ml Output Total 800 ml 1000 ml 1600 ml Balance -30 ml 460 ml -640 ml Exam HEENT: Neck supple; no JVD; no LAD; + ET tube in place CVS: RRR, S1 and S2 CHEST: Clear ABD: Soft, NT, + BS EXT: No c/c/e Results/Medications Result Diagram: 07/23/17 0655 07/23/17 0655 Results 24 hrs Laboratory Tests Test 07/22/17 17:45 07/23/17 00:51 07/23/17 05:17 07/23/17 06:01 Bedside Glucose 199 281 H 280 H Lab Scanned Report BLOOD TRANSFUSION Test 07/23/17 06:55 07/23/17 12:30 White Blood Count 7.3 # Red Blood Count 3.74 #L Hemoglobin 9.2 #L Hematocrit 31.2 #L Mean Corpuscular Volume 83.4 Mean Corpuscular Hemoglobin 24.6 L Mean Corpuscular Hemoglobin Concent 29.5 L Red Cell Distribution Width 18.4 H Platelet Count 312 Mean Platelet Volume 11.7 H Neutrophils % 79.5 H Lymphocytes % 11.3 L Monocytes % 4.7 Eosinophils % 2.5 Basophils % 0.4 Nucleated Red Blood Cells % 0.0 Neutrophils # 5.8 Lymphocytes # 0.8 Monocytes # 0.3 Eosinophils # 0.2 Basophils # 0.0 Nucleated Red Blood Cells # 0.0 Sodium Level 146 H Potassium Level 3.9 Chloride Level 110 Carbon Dioxide Level 22 Anion Gap 18 H Blood Urea Nitrogen 38 #H Creatinine 1.02 H Glucose Level 235 H Calcium Level 9.1 Iron Level 22 L Total Iron Binding Capacity 180 L Percent Iron Saturation 12 L Bedside Glucose 271 H Medications Current Medications Meropenem/Sodium Chloride (Merrem 1 Gm/50 ml (Pmx)) 50 ml @ 100 mls/hr Q12 IVPB Last administered on 07/23/17 11:23; Admin Dose 100 MLS/HR; Start 07/21 at 23:30 Miscellaneous Information (Pending [facility] Order For Wound Care) This patient stern... PRN PRN XX WOUND CARE; Start 07/22/17 at 03:30 Insulin Aspart (Novolog Insulin Pen) NOVOLOG *MILD* ALGORI... Q6 SC Last administered on 07/23/17 12:34; Admin Dose 4 UNIT; Start 07/22/17 at 06:00 Acetaminophen (Tylenol Tab) 650 mg Q4 PRN GTB ELEVATED TEMPERATURE; Start at 05:30 Ascorbic Acid (Vitamin C) 500 mg Q8 GTB Last administered on 07/23/17 13:50; Admin Dose 500 MG; Start 07/22/17 at 06:00 Baclofen (Lioresal) 20 mg TID GTB Last administered on 07/23/17 13:50; Admin Dose 20 MG; Start 07/22/17 at 09:00 Bisacodyl (Dulcolax Supp) 10 mg DAILY PRN [place] CONSTIPATION; Start 07/22/17 at 05:30 Docusate Sodium (Colace Liquid Cup) 100 mg BID GTB Last administered on 09:30; Admin Dose 100 MG; Start 07/22/17 at 09:00 Epoetin Andrey (Epogen (Esrd)) 15,000 units MoWeFr@17 SC ; Start 07/24/17 at 17: 00 Magnesium Hydroxide (Milk Of Mag) 30 ml Q24H PRN PO CONSTIPATION; Start at 05:30 Magnesium Oxide (Mag-Ox 400) 800 mg DAILY GTB Last administered on 07/23/17 09:31; Admin Dose 800 MG; Start 07/22/17 at 09:00 Metoclopramide HCl (Reglan) 10 mg BID GTB Last administered on 07/23/17 09:31 ; Admin Dose 10 MG; Start 07/22/17 at 09:00 Mineral Oil (Fleet Mineral Oil Enema) 133 ml DAILY PRN [place] CONSTIPATION; Start 07/22/17 at 05:30 Multivitamins Therapeutic (Theragran) 1 tab DAILY GTB Last administered on 09:31; Admin Dose 1 TAB; Start 07/22/17 at 09:00 Sucralfate (Carafate) 1 gm DAILY GTB Last administered on 07/23/17 09:30; Admin Dose 1 GM; Start 07/22/17 at 09:00 Tramadol HCl (Ultram) 100 mg DAILY GTB Last administered on 07/23/17 09:31; Admin Dose 100 MG; Start 07/22/17 at 09:00 Acetaminophen/ Hydrocodone Bitart ([place] (5/325)) 1 tab Q6H PRN GTB PAIN LEVEL 7-10; Start 07/22/17 at 05:30 Pantoprazole (Protonix Iv) 40 mg BID@06,18 IV Last administered on 07/23/17 05:19; Admin Dose 40 MG; Start 07/22/17 at 18:00 Miscellaneous Information 1 ea NOTE XX ; Start 07/22/17 at 15:00 Glucose (Glutose) 15 gm Q15M PRN PO DECREASED GLUCOSE; Start 07/22/17 at 15:00 Glucose (Glutose) 22.5 gm Q15M PRN PO DECREASED GLUCOSE; Start 07/22/17 at 15: 00 Dextrose (D50w Syringe) 25 ml Q15M PRN IV DECREASED GLUCOSE; Start 07/22/17 at 15:00 Dextrose (D50w Syringe) 50 ml Q15M PRN IV DECREASED GLUCOSE; Start 07/22/17 at 15:00 Glucagon (Glucagen) 1 mg Q15M PRN IM DECREASED GLUCOSE; Start 07/22/17 at 15: 00 Glucose 15 gm 15 gm Q15M PRN BUCCAL DECREASED GLUCOSE; Start 07/22/17 at 15:00 Sodium Chloride 1,000 ml @ 70 mls/hr [id number] IV Last administered on 13:50; Admin Dose 70 MLS/HR; Start 07/23/17 at 11:30 Ferric Sodium Gluconate Complex/ Sodium Chloride (Ferrlecit/NS) 110 ml @ 110 mls/hr Q24H IVPB Last administered on 10/22/17at 13:50; Admin Dose 110 MLS/HR; Start 07/23/17 at 12:30; Stop 07/27/17 at 13:29 Insulin Human NPH (Humulin N) 6 unit Q6 SC ; Start 07/23/17 at 18:00 Insulin Glargine (Lantus) 20 unit DAILY@20 SC ; Start 07/23/17 at 20:00 Assessment/Plan Chief Complaint/Hosp Course This is a 56-year-old female with history of VDRF, chronic encepalopathy, PEG, who was sent from [facility] for having a low hemoglobin and urosepsis Problems: Additional Assessment/Plan IMP: 1. Anemia--r/o GIB 2. Urosepsis 3. VDRF 4. Encephalopathy RECS: 1. Vent support 2. BD's/CPT 3. Abx per ID 4. GIB w/u per XIN MCHUGH MD Jul 23, 2017 16:46
[2017-07-23] MEDS ORDERED: INSULIN GLARGINE [LANtus] 3 ML PEN SC SCH (20:00)
--- NOTE | 2017-07-23 20:00 | CONS ---
Date/Time of Note Date/Time of Note DATE: 07/23/17 TIME: 19:53 Consult Date/Type/Reason Admit Date/Time Jul 21, 2017 at 23:24 Initial Consult Date 07/22/17 Type of Consultation: ID Ordering Provider: CASEY ALEXANDER MD Objective Vital Signs Date Time Temp Pulse Resp B/P Pulse Ox O2 Delivery O2 Flow Rate FiO2 07/23/17 19:16 99 12 100 30 07/23/17 15:35 98.7 106/67 07/21/17 19:48 Room Air Intake and Output 07/22/17 07/22/17 07/23/17 15:00 23:00 07:00 Intake Total 770 ml 1460 ml 960 ml Output Total 800 ml 1000 ml 1600 ml Balance -30 ml 460 ml -640 ml Results/Medications Result Diagram: 07/23/17 0655 07/23/17 0655 Results 24 hrs Laboratory Tests Test 07/23/17 00:51 07/23/17 05:17 07/23/17 06:01 07/23/17 06:55 Bedside Glucose 281 H 280 H Lab Scanned Report BLOOD TRANSFUSION White Blood Count 7.3 # Red Blood Count 3.74 #L Hemoglobin 9.2 #L Hematocrit 31.2 #L Mean Corpuscular Volume 83.4 Mean Corpuscular Hemoglobin 24.6 L Mean Corpuscular Hemoglobin Concent 29.5 L Red Cell Distribution Width 18.4 H Platelet Count 312 Mean Platelet Volume 11.7 H Neutrophils % 79.5 H Lymphocytes % 11.3 L Monocytes % 4.7 Eosinophils % 2.5 Basophils % 0.4 Nucleated Red Blood Cells % 0.0 Neutrophils # 5.8 Lymphocytes # 0.8 Monocytes # 0.3 Eosinophils # 0.2 Basophils # 0.0 Nucleated Red Blood Cells # 0.0 Sodium Level 146 H Potassium Level 3.9 Chloride Level 110 Carbon Dioxide Level 22 Anion Gap 18 H Blood Urea Nitrogen 38 #H Creatinine 1.02 H Glucose Level 235 H Calcium Level 9.1 Iron Level 22 L Total Iron Binding Capacity 180 L Percent Iron Saturation 12 L Test 07/23/17 12:30 07/23/17 17:48 Bedside Glucose 271 H 271 H Medications Current Medications Meropenem/Sodium Chloride (Merrem 1 Gm/50 ml (Pmx)) 50 ml @ 100 mls/hr Q12 IVPB Last administered on 07/23/17 11:23; Admin Dose 100 MLS/HR; Start 07/21 at 23:30 Miscellaneous Information (Pending Santyl Order For Wound Care) This patient stern... PRN PRN XX WOUND CARE; Start 07/22/17 at 03:30 Insulin Aspart (Novolog Insulin Pen) NOVOLOG *MILD* ALGORI... Q6 SC Last administered on 07/23/17 18:03; Admin Dose 4 UNIT; Start 07/22/17 at 06:00 Acetaminophen (Tylenol Tab) 650 mg Q4 PRN GTB ELEVATED TEMPERATURE; Start at 05:30 Ascorbic Acid (Vitamin C) 500 mg Q8 GTB Last administered on 07/23/17 13:50; Admin Dose 500 MG; Start 07/22/17 at 06:00 Baclofen (Lioresal) 20 mg TID GTB Last administered on 07/23/17 13:50; Admin Dose 20 MG; Start 07/22/17 at 09:00 Bisacodyl (Dulcolax Supp) 10 mg DAILY PRN [place] CONSTIPATION; Start 07/22/17 at 05:30 Docusate Sodium (Colace Liquid Cup) 100 mg BID GTB Last administered on 09:30; Admin Dose 100 MG; Start 07/22/17 at 09:00 Epoetin Andrey (Epogen (Esrd)) 15,000 units MoWeFr@17 SC ; Start 07/24/17 at 17: 00 Magnesium Hydroxide (Milk Of Mag) 30 ml Q24H PRN PO CONSTIPATION; Start at 05:30 Magnesium Oxide (Mag-Ox 400) 800 mg DAILY GTB Last administered on 07/23/17 09:31; Admin Dose 800 MG; Start 07/22/17 at 09:00 Metoclopramide HCl (Reglan) 10 mg BID GTB Last administered on 07/23/17 09:31 ; Admin Dose 10 MG; Start 07/22/17 at 09:00 Mineral Oil (Fleet Mineral Oil Enema) 133 ml DAILY PRN [place] CONSTIPATION; Start 07/22/17 at 05:30 Multivitamins Therapeutic (Theragran) 1 tab DAILY GTB Last administered on 09:31; Admin Dose 1 TAB; Start 07/22/17 at 09:00 Sucralfate (Carafate) 1 gm DAILY GTB Last administered on 07/23/17 09:30; Admin Dose 1 GM; Start 07/22/17 at 09:00 Tramadol HCl (Ultram) 100 mg DAILY GTB Last administered on 07/23/17 09:31; Admin Dose 100 MG; Start 07/22/17 at 09:00 Acetaminophen/ Hydrocodone Bitart ([place] (5/325)) 1 tab Q6H PRN GTB PAIN LEVEL 7-10; Start 07/22/17 at 05:30 Pantoprazole (Protonix Iv) 40 mg BID@06,18 IV Last administered on 07/23/17 18:00; Admin Dose 40 MG; Start 07/22/17 at 18:00 Miscellaneous Information 1 ea NOTE XX ; Start 07/22/17 at 15:00 Glucose (Glutose) 15 gm Q15M PRN PO DECREASED GLUCOSE; Start 07/22/17 at 15:00 Glucose (Glutose) 22.5 gm Q15M PRN PO DECREASED GLUCOSE; Start 07/22/17 at 15: 00 Dextrose (D50w Syringe) 25 ml Q15M PRN IV DECREASED GLUCOSE; Start 07/22/17 at 15:00 Dextrose (D50w Syringe) 50 ml Q15M PRN IV DECREASED GLUCOSE; Start 07/22/17 at 15:00 Glucagon (Glucagen) 1 mg Q15M PRN IM DECREASED GLUCOSE; Start 07/22/17 at 15: 00 Glucose 15 gm 15 gm Q15M PRN BUCCAL DECREASED GLUCOSE; Start 07/22/17 at 15:00 Sodium Chloride 1,000 ml @ 70 mls/hr [id number] IV Last administered on 13:50; Admin Dose 70 MLS/HR; Start 07/23/17 at 11:30 Ferric Sodium Gluconate Complex/ Sodium Chloride (Ferrlecit/NS) 110 ml @ 110 mls/hr Q24H IVPB Last administered on 07/23/17 13:50; Admin Dose 110 MLS/HR; Start 07/23/17 at 12:30; Stop 07/27/17 at 13:29 Insulin Human NPH (Humulin N) 6 unit Q6 SC Last administered on 07/23/17 18: 05; Admin Dose 6 UNIT; Start 07/23/17 at 18:00 Insulin Glargine (Lantus) 20 unit DAILY@20 SC ; Start 07/23/17 at 20:00 Assessment/Plan Chief Complaint/Hosp Course Noncommunicative, looks comfortable, no fevers Microbiology: Wound cx + Enterococcus/yeast/GNR/St aureus, Bld cx neg Indwelling: Trach/PEG/PICC/Joel Abx: Merrem ALL: PCN, Levaquin, Vanco, Cephalosporins GENERAL: The patient is a nonverbal female who is awake, noncommunicative, no acute distress. SKIN: Without generalized rash. HEENT: Within normal limits. NECK: Supple. Lymph nodes nonpalpable. She has a tracheostomy in place. SKIN: She has a PICC line on the left side in the superior vena cava. CHEST: Decreased breath sounds at the bases. HEART: Without murmur or gallop. ABDOMEN: Soft, nontender. G-tube in place. + BT EXTREMITIES: Without cyanosis, clubbing or edema. Assessment: 1. UTI per UA 2. Ischial decub==> pending final cx 3. Acute on chronic anemia==> s/p bld tx, h/h stable 4. ARF=> nephrology follows 5. VDRF 6. Chronic encephalopathy Plan: Pending final cx, add Zyvox to cover Enterococcus and Fluconazole, continue local wound care, vent per pulmonary, surgical eval dw staff Problems: FLEX DENNISON NP Jul 23, 2017 20:00
[2017-07-23] MEDS: ZYVOX 600 MG TAB PO SCH (21:18)
[2017-07-24] VITALS (25 sets, daily range): BP systolic 93–115; BP diastolic 55–80; PULSE 81–110; RESP 12–18
[2017-07-24] MEDS: INSULIN ASPART [NOVOLOG] 3 ML PEN SC SCH ×4 (00:49→17:26)
[2017-07-24] MEDS: NPH, HUMAN INSULIN ISOPHANE 3ML VIAL SC SCH ×4 (00:49→17:27)
[2017-07-24] MEDS: SOD CHLORIDE 0.45% 1,000 ML IV SCH ×3 (00:55→22:16)
[2017-07-24] MEDS: PANTOPRAZOLE 40 MG INJ IV SCH ×2 (05:56→17:22)
[2017-07-24] MEDS: ASCORBIC ACID 500 MG TAB GTB SCH ×3 (05:56→22:15)
[2017-07-24 07:07] LABS: ALBUMIN 3.3 g/dl (3.3-4.9); ALBUMIN/GLOBULIN RATIO 0.64; BILIRUBIN,INDIRECT 0.1 mg/dl (0-1.1); BILIRUBIN,TOTAL 0.1 mg/dl (0.2-1.3); CALCIUM 8.7 mg/dl (8.4-10.2); CREATININE 0.85 mg/dl (0.44-1.00); POTASSIUM 3.9 mmol/L (3.5-5.1); TOTAL PROTEIN 8.4 g/dl (6.1-8.1)
[2017-07-24] MEDS: MEROPENEM 1 GM/50ML(PMX) 50 ML IVPB SCH ×2 (09:46→20:46)
[2017-07-24] MEDS: METOCLOPRAMIDE 10 MG TAB GTB SCH ×2 (09:46→20:46)
[2017-07-24] MEDS: DOCUSATE SODIUM 10 MG/ML (10ML CUP) GTB SCH ×2 (09:46→20:45)
[2017-07-24] MEDS: BACLOFEN 10 MG TAB GTB SCH ×3 (09:47→20:46)
[2017-07-24] MEDS: SUCRALFATE 1 GM TAB GTB SCH (09:47)
[2017-07-24] MEDS: MAGNESIUM OXIDE 400 MG TAB GTB SCH (09:47)
[2017-07-24] MEDS: traMADol 50 MG TAB GTB SCH (09:48)
[2017-07-24] MEDS: ZYVOX 600 MG TAB PO SCH ×2 (09:48→20:46)
[2017-07-24] MEDS: MULTIVITAMINS THERAPEUTIC TAB GTB SCH (09:48)
[2017-07-24] MEDS ORDERED: FLUCONAZOLE 100 MG TAB PO ONE (11:00)
[2017-07-24] MEDS: SOD FERRIC GLUC COMPLX 125 MG in SOD CHLORIDE 0.9% 100 ML IVPB SCH (12:32)
--- NOTE | 2017-07-24 13:17 | CONS ---
Date/Time of Note Date/Time of Note DATE: 07/24/17 TIME: 13:15 Consult Date/Type/Reason Admit Date/Time Jul 21, 2017 at 23:24 Initial Consult Date 07/22/17 Type of Consultation: ID Ordering Provider: CASEY ALEXANDER MD Objective Vital Signs Date Time Temp Pulse Resp B/P Pulse Ox O2 Delivery O2 Flow Rate FiO2 07/24/17 11:56 99.5 95 18 115/64 100 07/24/17 11:00 30 07/21/17 19:48 Room Air Intake and Output 07/23/17 07/23/17 07/24/17 15:00 23:00 07:00 Intake Total 160 ml 1460 ml 1725 ml Output Total 1000 ml 1100 ml Balance 160 ml 460 ml 625 ml Results/Medications Result Diagram: 07/23/17 0655 07/24/17 0554 Results 24 hrs Laboratory Tests Test 07/23/17 17:48 07/23/17 20:48 07/24/17 00:35 07/24/17 05:53 Bedside Glucose 271 H 235 H 255 H 228 H Test 07/24/17 05:54 07/24/17 12:28 Sodium Level 142 Potassium Level 3.9 Chloride Level 108 Carbon Dioxide Level 24 Anion Gap 14 Blood Urea Nitrogen 30 H Creatinine 0.85 Glucose Level 204 Calcium Level 8.7 Total Bilirubin 0.1 L Direct Bilirubin 0.00 Indirect Bilirubin 0.1 Aspartate Amino Transf (AST/SGOT) 26 Alanine Aminotransferase (ALT/SGPT) 22 Alkaline Phosphatase 199 H Total Protein 8.4 H Albumin 3.3 Globulin 5.10 H Albumin/Globulin Ratio 0.64 Bedside Glucose 201 Medications Current Medications Meropenem/Sodium Chloride (Merrem 1 Gm/50 ml (Pmx)) 50 ml @ 100 mls/hr Q12 IVPB Last administered on 07/24/17 09:46; Admin Dose 100 MLS/HR; Start 07/21 at 23:30 Miscellaneous Information [facility] This patient stern... PRN PRN XX WOUND CARE; Start 07/22/17 at 03:30 Insulin Aspart (Novolog Insulin Pen) NOVOLOG *MILD* ALGORI... Q6 SC Last administered on 07/24/17 12:35; Admin Dose 2 UNIT; Start 07/22/17 at 06:00 Acetaminophen (Tylenol Tab) 650 mg Q4 PRN GTB ELEVATED TEMPERATURE; Start at 05:30 Ascorbic Acid (Vitamin C) 500 mg Q8 GTB Last administered on 07/24/17 05:56; Admin Dose 500 MG; Start 07/22/17 at 06:00 Baclofen (Lioresal) 20 mg TID GTB Last administered on 07/24/17 12:33; Admin Dose 20 MG; Start 07/22/17 at 09:00 Bisacodyl (Dulcolax Supp) 10 mg DAILY PRN [place] CONSTIPATION; Start 07/22/17 at 05:30 Docusate Sodium (Colace Liquid Cup) 100 mg BID GTB Last administered on 09:46; Admin Dose 100 MG; Start 07/22/17 at 09:00 Epoetin Andrey (Epogen (Esrd)) 15,000 units MoWeFr@17 SC ; Start 07/24/17 at 17: 00 Magnesium Hydroxide (Milk Of Mag) 30 ml Q24H PRN PO CONSTIPATION; Start at 05:30 Magnesium Oxide (Mag-Ox 400) 800 mg DAILY GTB Last administered on 07/24/17 09:47; Admin Dose 800 MG; Start 07/22/17 at 09:00 Metoclopramide HCl (Reglan) 10 mg BID GTB Last administered on 07/24/17 09:46 ; Admin Dose 10 MG; Start 07/22/17 at 09:00 Mineral Oil (Fleet Mineral Oil Enema) 133 ml DAILY PRN [place] CONSTIPATION; Start 07/22/17 at 05:30 Multivitamins Therapeutic (Theragran) 1 tab DAILY GTB Last administered on 09:48; Admin Dose 1 TAB; Start 07/22/17 at 09:00 Sucralfate (Carafate) 1 gm DAILY GTB Last administered on 07/24/17 09:47; Admin Dose 1 GM; Start 07/22/17 at 09:00 Tramadol HCl (Ultram) 100 mg DAILY GTB Last administered on 07/24/17 09:48; Admin Dose 100 MG; Start 07/22/17 at 09:00 Acetaminophen/ Hydrocodone Bitart ([place] (5/325)) 1 tab Q6H PRN GTB PAIN LEVEL 7-10; Start 07/22/17 at 05:30 Pantoprazole (Protonix Iv) 40 mg BID@06,18 IV Last administered on 07/24/17 05:56; Admin Dose 40 MG; Start 07/22/17 at 18:00 Miscellaneous Information 1 ea NOTE XX ; Start 07/22/17 at 15:00 Glucose (Glutose) 15 gm Q15M PRN PO DECREASED GLUCOSE; Start 07/22/17 at 15:00 Glucose (Glutose) 22.5 gm Q15M PRN PO DECREASED GLUCOSE; Start 07/22/17 at 15: 00 Dextrose (D50w Syringe) 25 ml Q15M PRN IV DECREASED GLUCOSE; Start 07/22/17 at 15:00 Dextrose (D50w Syringe) 50 ml Q15M PRN IV DECREASED GLUCOSE; Start 07/22/17 at 15:00 Glucagon (Glucagen) 1 mg Q15M PRN IM DECREASED GLUCOSE; Start 07/22/17 at 15: 00 Glucose 15 gm 15 gm Q15M PRN BUCCAL DECREASED GLUCOSE; Start 07/22/17 at 15:00 Sodium Chloride 1,000 ml @ 70 mls/hr [id number] IV Last administered on 00:55; Admin Dose 70 MLS/HR; Start 07/23/17 at 11:30 Ferric Sodium Gluconate Complex/ Sodium Chloride (Ferrlecit/NS) 110 ml @ 110 mls/hr Q24H IVPB Last administered on 07/24/17 12:32; Admin Dose 110 MLS/HR; Start 07/23/17 at 12:30; Stop 07/27/17 at 13:29 Insulin Human NPH (Humulin N) 6 unit Q6 SC Last administered on 07/24/17 12: 35; Admin Dose 6 UNIT; Start 07/23/17 at 18:00 Insulin Glargine (Lantus) 20 unit DAILY@20 SC Last administered on 07/23/17 20:59; Admin Dose 20 UNIT; Start 07/23/17 at 20:00 Linezolid (Zyvox) 600 mg BID PO Last administered on 07/24/17 09:48; Admin Dose 600 MG; Start 07/23/17 at 21:00 Fluconazole (Diflucan) 100 mg DAILY PO ; Start 07/25/17 at 09:00 Assessment/Plan Chief Complaint/Hosp Course Noncommunicative, looks comfortable, no fevers Microbiology: Wound cx + Enterococcus/yeast/GNR/St aureus, Bld cx +GPC Indwelling: Trach/PEG/PICC/Joel Abx: Merrem, Diflucan, Zyvox ALL: PCN, Levaquin, Vanco, Cephalosporins GENERAL: The patient is a nonverbal female who is awake, noncommunicative, no acute distress. SKIN: Without generalized rash. HEENT: Within normal limits. NECK: Supple. Lymph nodes nonpalpable. She has a tracheostomy in place. SKIN: She has a PICC line on the left side in the superior vena cava. CHEST: Decreased breath sounds at the bases. HEART: Without murmur or gallop. ABDOMEN: Soft, nontender. G-tube in place. + BT EXTREMITIES: Without cyanosis, clubbing or edema. Assessment: 1. Sepsis with GPC bacteremia 2. UTI per UA 2. Ischial decub==> pending final cx 3. Acute on chronic anemia==> s/p bld tx, h/h stable 4. ARF=> nephrology follows 5. VDRF 6. Chronic encephalopathy Plan: Clinically stable, continue abx, repeat bld cx, continue local wound care , vent per pulmonary, surgical eval dw staff Problems: FLEX DENNISON NP Jul 24, 2017 13:17
--- NOTE | 2017-07-24 14:56 | CONS ---
Date/Time of Note Date/Time of Note DATE: 07/24/17 TIME: 14:56 Consult Date/Type/Reason Admit Date/Time Jul 21, 2017 at 23:24 Initial Consult Date 07/22/17 Type of Consultation: Pulmonary Ordering Provider: CASEY ALEXANDER MD Subjective Comfortable this morning. No new events. Objective Vital Signs Date Time Temp Pulse Resp B/P Pulse Ox O2 Delivery O2 Flow Rate FiO2 07/24/17 13:21 95 07/24/17 13:12 17 100 30 07/24/17 11:56 99.5 115/64 07/21/17 19:48 Room Air Intake and Output 07/23/17 07/23/17 07/24/17 15:00 23:00 07:00 Intake Total 160 ml 1460 ml 1725 ml Output Total 1000 ml 1100 ml Balance 160 ml 460 ml 625 ml Exam PHYSICAL EXAMINATION GENERAL: Chronically ill-appearing gentleman comfortable at rest tracheostomy on mechanical ventilation VITAL SIGNS: see below. HEENT: Pupils equal, round, and reactive to light. Tracheostomy site clean and intact. CARDIAC: S1, S2, 1/6 systolic ejection murmur CHEST: Diminished air entry bilaterally. ABDOMEN: Mildly distended. Bowel sounds present no guarding or rebound EXTREMITIES: No cyanosis, clubbing edema +1 NEUROLOGIC: Generalized weakness Results/Medications Result Diagram: 07/23/17 0655 07/24/17 0554 Results 24 hrs Laboratory Tests Test 07/23/17 17:48 07/23/17 20:48 07/24/17 00:35 07/24/17 05:53 Bedside Glucose 271 H 235 H 255 H 228 H Test 07/24/17 05:54 07/24/17 12:28 Sodium Level 142 Potassium Level 3.9 Chloride Level 108 Carbon Dioxide Level 24 Anion Gap 14 Blood Urea Nitrogen 30 H Creatinine 0.85 Glucose Level 204 Calcium Level 8.7 Total Bilirubin 0.1 L Direct Bilirubin 0.00 Indirect Bilirubin 0.1 Aspartate Amino Transf (AST/SGOT) 26 Alanine Aminotransferase (ALT/SGPT) 22 Alkaline Phosphatase 199 H Total Protein 8.4 H Albumin 3.3 Globulin 5.10 H Albumin/Globulin Ratio 0.64 Bedside Glucose 201 Medications Current Medications Meropenem/Sodium Chloride (Merrem 1 Gm/50 ml (Pmx)) 50 ml @ 100 mls/hr Q12 IVPB Last administered on 07/24/17 09:46; Admin Dose 100 MLS/HR; Start 07/21 at 23:30 Miscellaneous Information (Pending Santyl Order For Wound Care) This patient stern... PRN PRN XX WOUND CARE; Start 07/22/17 at 03:30 Insulin Aspart (Novolog Insulin Pen) NOVOLOG *MILD* ALGORI... Q6 SC Last administered on 07/24/17 12:35; Admin Dose 2 UNIT; Start 07/22/17 at 06:00 Acetaminophen (Tylenol Tab) 650 mg Q4 PRN GTB ELEVATED TEMPERATURE; Start at 05:30 Ascorbic Acid (Vitamin C) 500 mg Q8 GTB Last administered on 07/24/17 13:31; Admin Dose 500 MG; Start 07/22/17 at 06:00 Baclofen (Lioresal) 20 mg TID GTB Last administered on 07/24/17 12:33; Admin Dose 20 MG; Start 07/22/17 at 09:00 Bisacodyl (Dulcolax Supp) 10 mg DAILY PRN [place] CONSTIPATION; Start 07/22/17 at 05:30 Docusate Sodium (Colace Liquid Cup) 100 mg BID GTB Last administered on 09:46; Admin Dose 100 MG; Start 07/22/17 at 09:00 Epoetin Andrey (Epogen (Esrd)) 15,000 units MoWeFr@17 SC ; Start 07/24/17 at 17: 00 Magnesium Hydroxide (Milk Of Mag) 30 ml Q24H PRN PO CONSTIPATION; Start at 05:30 Magnesium Oxide (Mag-Ox 400) 800 mg DAILY GTB Last administered on 07/24/17 09:47; Admin Dose 800 MG; Start 07/22/17 at 09:00 Metoclopramide HCl (Reglan) 10 mg BID GTB Last administered on 07/24/17 09:46 ; Admin Dose 10 MG; Start 07/22/17 at 09:00 Mineral Oil (Fleet Mineral Oil Enema) 133 ml DAILY PRN [place] CONSTIPATION; Start 07/22/17 at 05:30 Multivitamins Therapeutic (Theragran) 1 tab DAILY GTB Last administered on 09:48; Admin Dose 1 TAB; Start 07/22/17 at 09:00 Sucralfate (Carafate) 1 gm DAILY GTB Last administered on 07/24/17 09:47; Admin Dose 1 GM; Start 07/22/17 at 09:00 Tramadol HCl (Ultram) 100 mg DAILY GTB Last administered on 07/24/17 09:48; Admin Dose 100 MG; Start 07/22/17 at 09:00 Acetaminophen/ Hydrocodone Bitart ([place] (5/325)) 1 tab Q6H PRN GTB PAIN LEVEL 7-10; Start 07/22/17 at 05:30 Pantoprazole (Protonix Iv) 40 mg BID@06,18 IV Last administered on 07/24/17 05:56; Admin Dose 40 MG; Start 07/22/17 at 18:00 Miscellaneous Information 1 ea NOTE XX ; Start 07/22/17 at 15:00 Glucose (Glutose) 15 gm Q15M PRN PO DECREASED GLUCOSE; Start 07/22/17 at 15:00 Glucose (Glutose) 22.5 gm Q15M PRN PO DECREASED GLUCOSE; Start 07/22/17 at 15: 00 Dextrose (D50w Syringe) 25 ml Q15M PRN IV DECREASED GLUCOSE; Start 07/22/17 at 15:00 Dextrose (D50w Syringe) 50 ml Q15M PRN IV DECREASED GLUCOSE; Start 07/22/17 at 15:00 Glucagon (Glucagen) 1 mg Q15M PRN IM DECREASED GLUCOSE; Start 07/22/17 at 15: 00 Glucose 15 gm 15 gm Q15M PRN BUCCAL DECREASED GLUCOSE; Start 07/22/17 at 15:00 Sodium Chloride 1,000 ml @ 70 mls/hr [id number] IV Last administered on 00:55; Admin Dose 70 MLS/HR; Start 07/23/17 at 11:30 Ferric Sodium Gluconate Complex/ Sodium Chloride (Ferrlecit/NS) 110 ml @ 110 mls/hr Q24H IVPB Last administered on 07/24/17 12:32; Admin Dose 110 MLS/HR; Start 07/23/17 at 12:30; Stop 07/27/17 at 13:29 Insulin Human NPH (Humulin N) 6 unit Q6 SC Last administered on 07/24/17 12: 35; Admin Dose 6 UNIT; Start 07/23/17 at 18:00 Insulin Glargine (Lantus) 20 unit DAILY@20 SC Last administered on 07/23/17 20:59; Admin Dose 20 UNIT; Start 07/23/17 at 20:00 Linezolid (Zyvox) 600 mg BID PO Last administered on 07/24/17 09:48; Admin Dose 600 MG; Start 07/23/17 at 21:00 Fluconazole (Diflucan) 100 mg DAILY PO ; Start 07/25/17 at 09:00 Assessment/Plan Chief Complaint/Hosp Course Additional Assessment/Plan IMP: 1. Anemia--r/o GIB 2. Urosepsis 3. VDRF 4. Encephalopathy RECS: 1. Vent support 2. BD's/CPT 3. Abx per ID 4. GIB w/u per GI Problems: ULYSSES FORRESTER MD, [facility] Jul 24, 2017 14:56
--- NOTE | 2017-07-24 15:28 | PN ---
Date/Time of Note Date/Time of Note DATE: 07/24/17 TIME: 15:21 Assessment/Plan VTE Prophylaxis VTE Prophylaxis Intervention: SCD's Lines/Catheters IV Catheter Type (from Nrs): PICC Line Central line still needed: Yes Urinary Cath still in place: Yes Reason Cath still needed: urinary retention Assessment/Plan Chief Complaint/Hosp Course Patient with hyperglycemia, resume Levemir, continue NovoLog. Problems: Assessment/Plan -Sepsis secondary to UTI . Continue antibiotics per ID . Dr. Zavaleta is following in infection disease consultation. -Anemia, rule out GI bleed. Dr. Ruiz is following in gastroenterology consultation. -Advanced multiple sclerosis -Ventilator dependent respiratory failure. Dr. Blackwell is following in pulmonology consultation. -Dysphagia with PEG -Multiple decubitus ulcer, continue wound care per wound care consult. -Acute on chronic encephalopathy. Further recommendations based on clinical course. Plan of care discussed with Dr. Taylor. Exam/Review of Systems Vital Signs Vitals Vital Signs Date Time Temp Pulse Resp B/P Pulse Ox O2 Delivery O2 Flow Rate FiO2 07/24/17 13:21 95 07/24/17 13:12 17 100 30 07/24/17 11:56 99.5 115/64 07/21/17 19:48 Room Air Intake and Output 07/23/17 07/23/17 07/24/17 15:00 23:00 07:00 Intake Total 160 ml 1460 ml 1725 ml Output Total 1000 ml 1100 ml Balance 160 ml 460 ml 625 ml Exam Constitutional: non-verbal Head: normocephalic Neck: other (Tracheostomy) Respiratory: diminished breath sounds Cardiovascular: nl pulses Gastrointestinal: non-tender, other (G-tube), soft Musculoskeletal: muscle weakness Neurological: confused Skin: other (Multiple wounds) Results Result Diagram: 07/23/17 0655 07/24/17 0554 Results 24 hrs Laboratory Tests Test 07/23/17 17:48 07/23/17 20:48 07/24/17 00:35 07/24/17 05:53 Bedside Glucose 271 H 235 H 255 H 228 H Test 07/24/17 05:54 07/24/17 12:28 Sodium Level 142 Potassium Level 3.9 Chloride Level 108 Carbon Dioxide Level 24 Anion Gap 14 Blood Urea Nitrogen 30 H Creatinine 0.85 Glucose Level 204 Calcium Level 8.7 Total Bilirubin 0.1 L Direct Bilirubin 0.00 Indirect Bilirubin 0.1 Aspartate Amino Transf (AST/SGOT) 26 Alanine Aminotransferase (ALT/SGPT) 22 Alkaline Phosphatase 199 H Total Protein 8.4 H Albumin 3.3 Globulin 5.10 H Albumin/Globulin Ratio 0.64 Bedside Glucose 201 Medications Medications Current Medications Meropenem/Sodium Chloride (Merrem 1 Gm/50 ml (Pmx)) 50 ml @ 100 mls/hr Q12 IVPB Last administered on 07/24/17 09:46; Admin Dose 100 MLS/HR; Start 07/21 at 23:30 Miscellaneous Information (Pending [facility] Order For Wound Care) This patient stern... PRN PRN XX WOUND CARE; Start 07/22/17 at 03:30 Insulin Aspart (Novolog Insulin Pen) NOVOLOG *MILD* ALGORI... Q6 SC Last administered on 07/24/17 12:35; Admin Dose 2 UNIT; Start 07/22/17 at 06:00 Acetaminophen (Tylenol Tab) 650 mg Q4 PRN GTB ELEVATED TEMPERATURE; Start at 05:30 Ascorbic Acid (Vitamin C) 500 mg Q8 GTB Last administered on 07/24/17 13:31; Admin Dose 500 MG; Start 07/22/17 at 06:00 Baclofen (Lioresal) 20 mg TID GTB Last administered on 07/24/17 12:33; Admin Dose 20 MG; Start 07/22/17 at 09:00 Bisacodyl (Dulcolax Supp) 10 mg DAILY PRN [place] CONSTIPATION; Start 07/22/17 at 05:30 Docusate Sodium (Colace Liquid Cup) 100 mg BID GTB Last administered on 09:46; Admin Dose 100 MG; Start 07/22/17 at 09:00 Epoetin Andrey (Epogen (Esrd)) 15,000 units MoWeFr@17 SC ; Start 07/24/17 at 17: 00 Magnesium Hydroxide (Milk Of Mag) 30 ml Q24H PRN PO CONSTIPATION; Start at 05:30 Magnesium Oxide (Mag-Ox 400) 800 mg DAILY GTB Last administered on 07/24/17 09:47; Admin Dose 800 MG; Start 07/22/17 at 09:00 Metoclopramide HCl (Reglan) 10 mg BID GTB Last administered on 07/24/17 09:46 ; Admin Dose 10 MG; Start 07/22/17 at 09:00 Mineral Oil (Fleet Mineral Oil Enema) 133 ml DAILY PRN [place] CONSTIPATION; Start 07/22/17 at 05:30 Multivitamins Therapeutic (Theragran) 1 tab DAILY GTB Last administered on 09:48; Admin Dose 1 TAB; Start 07/22/17 at 09:00 Sucralfate (Carafate) 1 gm DAILY GTB Last administered on 07/24/17 09:47; Admin Dose 1 GM; Start 07/22/17 at 09:00 Tramadol HCl (Ultram) 100 mg DAILY GTB Last administered on 07/24/17 09:48; Admin Dose 100 MG; Start 07/22/17 at 09:00 Acetaminophen/ Hydrocodone Bitart ([place] (5/325)) 1 tab Q6H PRN GTB PAIN LEVEL 7-10; Start 07/22/17 at 05:30 Pantoprazole (Protonix Iv) 40 mg BID@06,18 IV Last administered on 07/24/17 05:56; Admin Dose 40 MG; Start 07/22/17 at 18:00 Miscellaneous Information 1 ea NOTE XX ; Start 07/22/17 at 15:00 Glucose (Glutose) 15 gm Q15M PRN PO DECREASED GLUCOSE; Start 07/22/17 at 15:00 Glucose (Glutose) 22.5 gm Q15M PRN PO DECREASED GLUCOSE; Start 07/22/17 at 15: 00 Dextrose (D50w Syringe) 25 ml Q15M PRN IV DECREASED GLUCOSE; Start 07/22/17 at 15:00 Dextrose (D50w Syringe) 50 ml Q15M PRN IV DECREASED GLUCOSE; Start 07/22/17 at 15:00 Glucagon (Glucagen) 1 mg Q15M PRN IM DECREASED GLUCOSE; Start 07/22/17 at 15: 00 Glucose 15 gm 15 gm Q15M PRN BUCCAL DECREASED GLUCOSE; Start 07/22/17 at 15:00 Sodium Chloride 1,000 ml @ 70 mls/hr [id number] IV Last administered on 00:55; Admin Dose 70 MLS/HR; Start 07/23/17 at 11:30 Ferric Sodium Gluconate Complex/ Sodium Chloride (Ferrlecit/NS) 110 ml @ 110 mls/hr Q24H IVPB Last administered on 07/24/17 12:32; Admin Dose 110 MLS/HR; Start 07/23/17 at 12:30; Stop 07/27/17 at 13:29 Insulin Human NPH (Humulin N) 6 unit Q6 SC Last administered on 07/24/17 12: 35; Admin Dose 6 UNIT; Start 07/23/17 at 18:00 Insulin Glargine (Lantus) 20 unit DAILY@20 SC Last administered on 07/23/17 20:59; Admin Dose 20 UNIT; Start 07/23/17 at 20:00 Linezolid (Zyvox) 600 mg BID PO Last administered on 07/24/17 09:48; Admin Dose 600 MG; Start 07/23/17 at 21:00 Fluconazole (Diflucan) 100 mg DAILY PO ; Start 07/25/17 at 09:00 ALIZA ANDRADE Jul 24, 2017 15:28
[2017-07-24 16:14] LABS: PATH REVIEW CH
[2017-07-24] MEDS: EPOETIN 10000 UNITS/1 ML INJ (ESRD) SC SCH (17:23)
--- NOTE | 2017-07-24 17:26 | CONS ---
Date/Time of Note Date/Time of Note DATE: 07/24/17 TIME: 17:25 Assessment/Plan Assessment/Plan Additional Assessment/Plan ASSESSMENT: 1. Acute kidney injury due to ATN From sepsis + prerenal azotemia 2. Sepsis due to UTI 3. Chronic resp failure s/p Tracheostomy on ventilator 4/ Anemia of chronic disease 5/ HTN Plan : 1/2 NS at 70 cc/hr - Cr normal now IV meropenem- renally dose all abx BP stable, renally dose all abx Expecting Cr to improve with IVF hydration and IV abx for UTI no need for renal US at this time will follow up Consultation Date/Type/Reason Admit Date/Time Jul 21, 2017 at 23:24 Initial Consult Date 07/22/17 Type of Consultation: NEPHROLOGY Referring Provider: CASEY ALEXANDER MD Exam/Review of Systems Vital Signs Vitals Vital Signs Date Time Temp Pulse Resp B/P Pulse Ox O2 Delivery O2 Flow Rate FiO2 07/24/17 16:58 97 14 98 30 07/24/17 16:18 98.2 103/60 07/21/17 19:48 Room Air Intake and Output 07/23/17 07/23/17 07/24/17 15:00 23:00 07:00 Intake Total 160 ml 1460 ml 1725 ml Output Total 1000 ml 1100 ml Balance 160 ml 460 ml 625 ml Exam Constitutional: non-verbal, + tracheostomy on ventilator Neck: non-tender, supple Respiratory: crackles/rales, diminished breath sounds Cardiovascular: nl pulses, regular rate and rhythm Gastrointestinal: non-tender, soft, +G tube Musculoskeletal: dry skin, pedal pulses 2+ Extremities: normal pulses Results Result Diagram: 07/23/17 0655 07/24/17 0554 Results 24 hrs Laboratory Tests Test 07/23/17 17:48 07/23/17 20:48 07/24/17 00:35 07/24/17 05:53 Bedside Glucose 271 H 235 H 255 H 228 H Test 07/24/17 05:54 07/24/17 12:28 Sodium Level 142 Potassium Level 3.9 Chloride Level 108 Carbon Dioxide Level 24 Anion Gap 14 Blood Urea Nitrogen 30 H Creatinine 0.85 Glucose Level 204 Calcium Level 8.7 Total Bilirubin 0.1 L Direct Bilirubin 0.00 Indirect Bilirubin 0.1 Aspartate Amino Transf (AST/SGOT) 26 Alanine Aminotransferase (ALT/SGPT) 22 Alkaline Phosphatase 199 H Total Protein 8.4 H Albumin 3.3 Globulin 5.10 H Albumin/Globulin Ratio 0.64 Bedside Glucose 201 Medications Medications Current Medications Meropenem/Sodium Chloride (Merrem 1 Gm/50 ml (Pmx)) 50 ml @ 100 mls/hr Q12 IVPB Last administered on 07/24/17 09:46; Admin Dose 100 MLS/HR; Start 07/21 at 23:30 Miscellaneous Information (Pending [facility] Order For Wound Care) This patient stern... PRN PRN XX WOUND CARE; Start 07/22/17 at 03:30 Insulin Aspart (Novolog Insulin Pen) NOVOLOG *MILD* ALGORI... Q6 SC Last administered on 07/24/17 12:35; Admin Dose 2 UNIT; Start 07/22/17 at 06:00 Acetaminophen (Tylenol Tab) 650 mg Q4 PRN GTB ELEVATED TEMPERATURE; Start at 05:30 Ascorbic Acid (Vitamin C) 500 mg Q8 GTB Last administered on 07/24/17 13:31; Admin Dose 500 MG; Start 07/22/17 at 06:00 Baclofen (Lioresal) 20 mg TID GTB Last administered on 07/24/17 12:33; Admin Dose 20 MG; Start 07/22/17 at 09:00 Bisacodyl (Dulcolax Supp) 10 mg DAILY PRN [place] CONSTIPATION; Start 07/22/17 at 05:30 Docusate Sodium (Colace Liquid Cup) 100 mg BID GTB Last administered on 09:46; Admin Dose 100 MG; Start 07/22/17 at 09:00 Epoetin Andrey (Epogen (Esrd)) 15,000 units MoWeFr@17 SC ; Start 07/24/17 at 17: 00 Magnesium Hydroxide (Milk Of Mag) 30 ml Q24H PRN [place] CONSTIPATION; Start at 05:30 Magnesium Oxide (Mag-Ox 400) 800 mg DAILY GTB Last administered on 07/24/17 09:47; Admin Dose 800 MG; Start 07/22/17 at 09:00 Metoclopramide HCl (Reglan) 10 mg BID GTB Last administered on 07/24/17 09:46 ; Admin Dose 10 MG; Start 07/22/17 at 09:00 Mineral Oil (Fleet Mineral Oil Enema) 133 ml DAILY PRN [place] CONSTIPATION; Start 07/22/17 at 05:30 Multivitamins Therapeutic (Theragran) 1 tab DAILY GTB Last administered on 09:48; Admin Dose 1 TAB; Start 07/22/17 at 09:00 Sucralfate (Carafate) 1 gm DAILY GTB Last administered on 07/24/17 09:47; Admin Dose 1 GM; Start 07/22/17 at 09:00 Tramadol HCl (Ultram) 100 mg DAILY GTB Last administered on 07/24/17 09:48; Admin Dose 100 MG; Start 07/22/17 at 09:00 Acetaminophen/ Hydrocodone Bitart ([place] (5/325)) 1 tab Q6H PRN GTB PAIN LEVEL 7-10; Start 07/22/17 at 05:30 Pantoprazole (Protonix Iv) 40 mg BID@06,18 IV Last administered on 07/24/17 05:56; Admin Dose 40 MG; Start 07/22/17 at 18:00 Miscellaneous Information 1 ea NOTE XX ; Start 07/22/17 at 15:00 Glucose (Glutose) 15 gm Q15M PRN PO DECREASED GLUCOSE; Start 07/22/17 at 15:00 Glucose (Glutose) 22.5 gm Q15M PRN PO DECREASED GLUCOSE; Start 07/22/17 at 15: 00 Dextrose (D50w Syringe) 25 ml Q15M PRN IV DECREASED GLUCOSE; Start 07/22/17 at 15:00 Dextrose (D50w Syringe) 50 ml Q15M PRN IV DECREASED GLUCOSE; Start 07/22/17 at 15:00 Glucagon (Glucagen) 1 mg Q15M PRN IM DECREASED GLUCOSE; Start 07/22/17 at 15: 00 Glucose 15 gm 15 gm Q15M PRN BUCCAL DECREASED GLUCOSE; Start 07/22/17 at 15:00 Sodium Chloride 1,000 ml @ 70 mls/hr [id number] IV Last administered on 00:55; Admin Dose 70 MLS/HR; Start 07/23/17 at 11:30 Ferric Sodium Gluconate Complex/ Sodium Chloride (Ferrlecit/NS) 110 ml @ 110 mls/hr Q24H IVPB Last administered on 07/24/17 12:32; Admin Dose 110 MLS/HR; Start 07/23/17 at 12:30; Stop 07/27/17 at 13:29 Insulin Human NPH (Humulin N) 6 unit Q6 SC Last administered on 07/24/17 12: 35; Admin Dose 6 UNIT; Start 07/23/17 at 18:00 Linezolid (Zyvox) 600 mg BID PO Last administered on 07/24/17 09:48; Admin Dose 600 MG; Start 07/23/17 at 21:00 Fluconazole (Diflucan) 100 mg DAILY PO ; Start 07/25/17 at 09:00 Insulin Glargine (Lantus) 25 unit DAILY@20 SC ; Start 07/24/17 at 20:00 LIZETTE ALEX MD Jul 24, 2017 17:26
--- NOTE | 2017-07-24 20:17 | CONS ---
Date/Time of Note Date/Time of Note DATE: 07/24/17 TIME: : Assessment/Plan Assessment/Plan Additional Assessment/Plan Chief Complaint/Hosp Course Impression: 1. anemia, r/o GIB 2. microcytosis, r/o iron deficiency 3. sepsis with UTI and PNA 4. dysphagia Recommendations: 1. continue tube feeds 2. routine PEG care 3. send stool for occult blood to distinguish between anemia from GIB vs chronic disease 4. add protonix bid dosing until occult blood result. If occult negative, can dc protonix 5. treat UTI and PNA per primary 6. await iron panel result, if low, pls replete with iv iron for faster repletion Consultation Date/Type/Reason Admit Date/Time Jul 21, 2017 at 23:24 Initial Consult Date 07/22/17 Type of Consultation: NEPHROLOGY Referring Provider: CASEY ALEXANDER MD 24 HR Interval Summary Subjective hx not possible: pt non-verbal Exam/Review of Systems Vital Signs Vitals Vital Signs Date Time Temp Pulse Resp B/P Pulse Ox O2 Delivery O2 Flow Rate FiO2 07/24/17 19:49 98.4 94 16 93/67 100 07/24/17 19:15 30 07/21/17 19:48 Room Air Intake and Output 07/23/17 07/23/17 07/24/17 15:00 23:00 07:00 Intake Total 160 ml 1460 ml 1725 ml Output Total 1000 ml 1100 ml Balance 160 ml 460 ml 625 ml Exam Constitutional: alert, oriented, well developed Psych: nl mood/affect, no complaints Head: atraumatic, normocephalic Eyes: EOMI, PERRL, nl conjunctiva, nl lids, nl sclera ENMT: nl external ears & nose, nl lips & teeth, nl nasal mucosa & septum Neck: non-tender, supple Respiratory: clear to auscultation, normal air movement Cardiovascular: nl pulses, regular rate and rhythm Gastrointestinal: nl liver, spleen, non-tender, soft Musculoskeletal: nl extremities to inspection, nl gait and stance Extremities: normal pulses Neurological: PILLOW FILLER II-XII intact, nl mental status, nl speech, nl strength Skin: nl turgor, No rash or lesions Lymph: nl lymph nodes Results Result Diagram: 07/23/17 0655 07/24/17 0554 Results 24 hrs Laboratory Tests Test 07/23/17 20:48 07/24/17 00:35 07/24/17 05:53 07/24/17 05:54 Bedside Glucose 235 H 255 H 228 H Sodium Level 142 Potassium Level 3.9 Chloride Level 108 Carbon Dioxide Level 24 Anion Gap 14 Blood Urea Nitrogen 30 H Creatinine 0.85 Glucose Level 204 Calcium Level 8.7 Total Bilirubin 0.1 L Direct Bilirubin 0.00 Indirect Bilirubin 0.1 Aspartate Amino Transf (AST/SGOT) 26 Alanine Aminotransferase (ALT/SGPT) 22 Alkaline Phosphatase 199 H Total Protein 8.4 H Albumin 3.3 Globulin 5.10 H Albumin/Globulin Ratio 0.64 Test 07/24/17 12:28 07/24/17 17:21 Bedside Glucose 201 191 Medications Medications Current Medications Meropenem/Sodium Chloride (Merrem 1 Gm/50 ml (Pmx)) 50 ml @ 100 mls/hr Q12 IVPB Last administered on 07/24/17 09:46; Admin Dose 100 MLS/HR; Start 07/21 at 23:30 Miscellaneous Information (Pending [facility] Order For Wound Care) This patient stern... PRN PRN XX WOUND CARE; Start 07/22/17 at 03:30 Insulin Aspart (Novolog Insulin Pen) NOVOLOG *MILD* ALGORI... Q6 SC Last administered on 07/24/17 17:26; Admin Dose 2 UNIT; Start 07/22/17 at 06:00 Acetaminophen (Tylenol Tab) 650 mg Q4 PRN GTB ELEVATED TEMPERATURE; Start at 05:30 Ascorbic Acid (Vitamin C) 500 mg Q8 GTB Last administered on 07/24/17 13:31; Admin Dose 500 MG; Start 07/22/17 at 06:00 Baclofen (Lioresal) 20 mg TID GTB Last administered on 07/24/17 12:33; Admin Dose 20 MG; Start 07/22/17 at 09:00 Bisacodyl (Dulcolax Supp) 10 mg DAILY PRN [place] CONSTIPATION; Start 07/22/17 at 05:30 Docusate Sodium (Colace Liquid Cup) 100 mg BID GTB Last administered on 09:46; Admin Dose 100 MG; Start 07/22/17 at 09:00 Epoetin Andrey (Epogen (Esrd)) 15,000 units MoWeFr@17 SC Last administered on 17:23; Admin Dose 15,000 UNITS; Start 07/24/17 at 17:00 Magnesium Hydroxide (Milk Of Mag) 30 ml Q24H PRN PO CONSTIPATION; Start at 05:30 Magnesium Oxide (Mag-Ox 400) 800 mg DAILY GTB Last administered on 07/24/17 09:47; Admin Dose 800 MG; Start 07/22/17 at 09:00 Metoclopramide HCl (Reglan) 10 mg BID GTB Last administered on 07/24/17 09:46 ; Admin Dose 10 MG; Start 07/22/17 at 09:00 Mineral Oil (Fleet Mineral Oil Enema) 133 ml DAILY PRN [place] CONSTIPATION; Start 07/22/17 at 05:30 Multivitamins Therapeutic (Theragran) 1 tab DAILY GTB Last administered on 09:48; Admin Dose 1 TAB; Start 07/22/17 at 09:00 Sucralfate (Carafate) 1 gm DAILY GTB Last administered on 07/24/17 09:47; Admin Dose 1 GM; Start 07/22/17 at 09:00 Tramadol HCl (Ultram) 100 mg DAILY GTB Last administered on 07/24/17 09:48; Admin Dose 100 MG; Start 07/22/17 at 09:00 Acetaminophen/ Hydrocodone Bitart ([place] (5/325)) 1 tab Q6H PRN GTB PAIN LEVEL 7-10; Start 07/22/17 at 05:30 Pantoprazole (Protonix Iv) 40 mg BID@18 IV Last administered on 07/24/17 17:22; Admin Dose 40 MG; Start 07/22/17 at 18:00 Miscellaneous Information 1 ea NOTE XX ; Start 07/22/17 at 15:00 Glucose (Glutose) 15 gm Q15M PRN PO DECREASED GLUCOSE; Start 07/22/17 at 15:00 Glucose (Glutose) 22.5 gm Q15M PRN PO DECREASED GLUCOSE; Start 07/22/17 at 15: 00 Dextrose (D50w Syringe) 25 ml Q15M PRN IV DECREASED GLUCOSE; Start 07/22/17 at 15:00 Dextrose (D50w Syringe) 50 ml Q15M PRN IV DECREASED GLUCOSE; Start 07/22/17 at 15:00 Glucagon (Glucagen) 1 mg Q15M PRN IM DECREASED GLUCOSE; Start 07/22/17 at 15: 00 Glucose 15 gm 15 gm Q15M PRN BUCCAL DECREASED GLUCOSE; Start 07/22/17 at 15:00 Sodium Chloride 1,000 ml @ 70 mls/hr [id number] IV Last administered on 00:55; Admin Dose 70 MLS/HR; Start 07/23/17 at 11:30 Ferric Sodium Gluconate Complex/ Sodium Chloride (Ferrlecit/NS) 110 ml @ 110 mls/hr Q24H IVPB Last administered on 07/24/17 12:32; Admin Dose 110 MLS/HR; Start 07/23/17 at 12:30; Stop 07/27/17 at 13:29 Insulin Human NPH (Humulin N) 6 unit Q6 SC Last administered on 07/24/17 17: 27; Admin Dose 6 UNIT; Start 07/23/17 at 18:00 Linezolid (Zyvox) 600 mg BID PO Last administered on 07/24/17 09:48; Admin Dose 600 MG; Start 07/23/17 at 21:00 Fluconazole (Diflucan) 100 mg DAILY PO ; Start 07/25/17 at 09:00 Insulin Glargine (Lantus) 25 unit DAILY@20 SC ; Start 07/24/17 at 20:00 HELENA NASH MD Jul 24, 2017 20:17
[2017-07-24] MEDS: INSULIN GLARGINE [LANtus] 3 ML PEN SC SCH (20:49)
[2017-07-24] MEDS ORDERED: INSULIN DETEMIR 20 UNIT SC SCH (21:00)
[2017-07-25] VITALS (23 sets, daily range): BP systolic 92–100; BP diastolic 51–62; PULSE 92–110; RESP 12–22
[2017-07-25] MEDS: INSULIN ASPART [NOVOLOG] 3 ML PEN SC SCH ×5 (00:25→23:53)
[2017-07-25] MEDS: NPH, HUMAN INSULIN ISOPHANE 3ML VIAL SC SCH ×5 (00:26→23:54)
[2017-07-25] MEDS: SOD CHLORIDE 0.45% 1,000 ML IV SCH ×2 (06:24→13:22)
[2017-07-25] MEDS: ASCORBIC ACID 500 MG TAB GTB SCH ×3 (06:25→20:05)
[2017-07-25] MEDS: PANTOPRAZOLE 40 MG INJ IV SCH ×2 (06:26→17:19)
[2017-07-25] MEDS: METOCLOPRAMIDE 10 MG TAB GTB SCH ×2 (08:22→20:08)
[2017-07-25] MEDS: MULTIVITAMINS THERAPEUTIC TAB GTB SCH (08:22)
[2017-07-25] MEDS: DOCUSATE SODIUM 10 MG/ML (10ML CUP) GTB SCH ×2 (08:22→20:06)
[2017-07-25] MEDS: ZYVOX 600 MG TAB PO SCH ×2 (08:22→20:05)
[2017-07-25] MEDS: SUCRALFATE 1 GM TAB GTB SCH (08:22)
[2017-07-25] MEDS: ACETAMINOPHEN 325 MG TAB GTB PRN (08:22)
[2017-07-25] MEDS: BACLOFEN 10 MG TAB GTB SCH ×3 (08:22→20:04)
[2017-07-25] MEDS: FLUCONAZOLE 100 MG TAB PO SCH (08:23)
[2017-07-25] MEDS: traMADol 50 MG TAB GTB SCH (08:23)
[2017-07-25] MEDS: MAGNESIUM OXIDE 400 MG TAB GTB SCH (08:23)
[2017-07-25] MEDS: MEROPENEM 1 GM/50ML(PMX) 50 ML IVPB SCH ×2 (08:24→20:05)
[2017-07-25 09:52] LABS: BASOPHILS % 0.1 % (0.0-2.0); EOSINOPHILS # 0.2 10^3/ul (0.0-0.5); HEMATOCRIT 26.6 % (37.0-47.0); HEMOGLOBIN 7.9 g/dl (12.0-16.0); LYMPHOCYTES # 0.9 10^3/ul (0.8-2.9); LYMPHOCYTES % 11.6 % (15.0-51.0); MEAN CORPUSCULAR HEMOGLOBIN 25.1 pg (29.0-33.0); MEAN CORPUSCULAR HGB CONC 29.7 g/dl (32.0-37.0); MEAN CORPUSCULAR VOLUME 84.4 fl (82.0-101.0); MEAN PLATELET VOLUME 10.8 fl (7.4-10.4); MONOCYTE # 0.4 10^3/ul (0.3-0.9); MONOCYTES % 4.7 % (0.0-11.0); NEUTROPHILS % 80.4 % (39.0-77.0); PLATELET COUNT 276 10^3/UL (140-415); RED BLOOD COUNT 3.15 10^6/ul (4.20-5.40); RED CELL DISTRIBUTION WIDTH 19.3 % (11.5-14.5); WHITE BLOOD COUNT 7.4 10^3/ul (4.8-10.8)
[2017-07-25 10:37] LABS: CALCIUM 8.9 mg/dl (8.4-10.2); CREATININE 0.76 mg/dl (0.44-1.00)
--- NOTE | 2017-07-25 12:38 | CONS ---
Date/Time of Note Date/Time of Note DATE: 07/25/17 TIME: 12:37 Assessment/Plan Assessment/Plan Additional Assessment/Plan Chief Complaint/Hosp Course Impression: 1. anemia, r/o GIB 2. microcytosis, r/o iron deficiency 3. sepsis with UTI and PNA 4. dysphagia Recommendations: 1. continue tube feeds 2. routine PEG care 3. send stool for occult blood to distinguish between anemia from GIB vs chronic disease 4. add protonix bid dosing until occult blood result. If occult negative, can dc protonix 5. treat UTI and PNA per primary 6. await iron panel result, if low, pls replete with iv iron for faster repletion 7. Awaiting for the stool report Consultation Date/Type/Reason Admit Date/Time Jul 21, 2017 at 23:24 Initial Consult Date 07/22/17 Type of Consultation: NEPHROLOGY Referring Provider: CASEY ALEXANDER MD 24 HR Interval Summary Subjective hx not possible: pt non-verbal Constitutional: no complaints Exam/Review of Systems Vital Signs Vitals Vital Signs Date Time Temp Pulse Resp B/P Pulse Ox O2 Delivery O2 Flow Rate FiO2 07/25/17 11:50 98.6 97 18 93/51 97 07/25/17 05:18 30 07/21/17 19:48 Room Air Intake and Output 07/24/17 07/24/17 07/25/17 15:00 23:00 07:00 Intake Total 1360 ml 1565 ml Output Total 1400 ml 100 ml Balance -40 ml 1465 ml Exam Constitutional: alert, oriented, well developed Psych: nl mood/affect, no complaints Head: atraumatic, normocephalic Eyes: EOMI, PERRL, nl conjunctiva, nl lids, nl sclera ENMT: nl external ears & nose, nl lips & teeth, nl nasal mucosa & septum Neck: non-tender, supple Respiratory: clear to auscultation, normal air movement Cardiovascular: nl pulses, regular rate and rhythm Gastrointestinal: nl liver, spleen, non-tender, soft Musculoskeletal: nl extremities to inspection, nl gait and stance Extremities: normal pulses Neurological: EQUIPMENT TESTER II-XII intact, nl mental status, nl speech, nl strength Skin: nl turgor, No rash or lesions Lymph: nl lymph nodes Results Result Diagram: 07/25/17 0803 07/25/17 0926 Results 24 hrs Laboratory Tests Test 07/24/17 17:21 07/24/17 20:43 07/24/17 23:51 07/25/17 06:28 Bedside Glucose 191 183 180 150 Test 07/25/17 08:03 07/25/17 09:26 White Blood Count 7.4 Red Blood Count 3.15 L Hemoglobin 7.9 L Hematocrit 26.6 L Mean Corpuscular Volume 84.4 Mean Corpuscular Hemoglobin 25.1 L Mean Corpuscular Hemoglobin Concent 29.7 L Red Cell Distribution Width 19.3 H Platelet Count 276 Mean Platelet Volume 10.8 H Neutrophils % 80.4 H Lymphocytes % 11.6 L Monocytes % 4.7 Eosinophils % 2.0 Basophils % 0.1 Nucleated Red Blood Cells % 0.0 Neutrophils # 6.0 Lymphocytes # 0.9 Monocytes # 0.4 Eosinophils # 0.2 Basophils # 0.0 Nucleated Red Blood Cells # 0.0 Sodium Level 139 Potassium Level 4.0 Chloride Level 107 Carbon Dioxide Level 24 Anion Gap 12 Blood Urea Nitrogen 23 H Creatinine 0.76 Glucose Level 142 # Calcium Level 8.9 Medications Medications Current Medications Meropenem/Sodium Chloride (Merrem 1 Gm/50 ml (Pmx)) 50 ml @ 100 mls/hr Q12 IVPB Last administered on 07/25/17 08:24; Admin Dose 100 MLS/HR; Start 07/21 at 23:30 [facility] This patient stern... PRN PRN XX WOUND CARE; Start 07/22/17 at 03:30 Insulin Aspart (Novolog Insulin Pen) NOVOLOG *MILD* ALGORI... Q6 SC Last administered on 07/25/17 06:30; Admin Dose 1 UNIT; Start 07/22/17 at 06:00 Acetaminophen (Tylenol Tab) 650 mg Q4 PRN GTB ELEVATED TEMPERATURE Last administered on 07/25/17 08:22; Admin Dose 650 MG; Start 07/22/17 at 05:30 Ascorbic Acid (Vitamin C) 500 mg Q8 GTB Last administered on 07/25/17 06:25; Admin Dose 500 MG; Start 07/22/17 at 06:00 Baclofen (Lioresal) 20 mg TID GTB Last administered on 07/25/17 08:22; Admin Dose 20 MG; Start 07/22/17 at 09:00 Bisacodyl (Dulcolax Supp) 10 mg DAILY PRN [place] CONSTIPATION; Start 07/22/17 at 05:30 Docusate Sodium (Colace Liquid Cup) 100 mg BID GTB Last administered on 08:22; Admin Dose 100 MG; Start 07/22/17 at 09:00 Epoetin Andrey (Epogen (Esrd)) 15,000 units MoWeFr@17 SC Last administered on 17:23; Admin Dose 15,000 UNITS; Start 07/24/17 at 17:00 Magnesium Hydroxide (Milk Of Mag) 30 ml Q24H PRN PO CONSTIPATION; Start at 05:30 Magnesium Oxide (Mag-Ox 400) 800 mg DAILY GTB Last administered on 07/25/17 08:23; Admin Dose 800 MG; Start 07/22/17 at 09:00 Metoclopramide HCl (Reglan) 10 mg BID GTB Last administered on 07/25/17 08:22 ; Admin Dose 10 MG; Start 07/22/17 at 09:00 Mineral Oil (Fleet Mineral Oil Enema) 133 ml DAILY PRN [place] CONSTIPATION; Start 07/22/17 at 05:30 Multivitamins Therapeutic (Theragran) 1 tab DAILY GTB Last administered on 08:22; Admin Dose 1 TAB; Start 07/22/17 at 09:00 Sucralfate (Carafate) 1 gm DAILY GTB Last administered on 07/25/17 08:22; Admin Dose 1 GM; Start 07/22/17 at 09:00 Tramadol HCl (Ultram) 100 mg DAILY GTB Last administered on 07/25/17 08:23; Admin Dose 100 MG; Start 07/22/17 at 09:00 Acetaminophen/ Hydrocodone Bitart ([place] (5/325)) 1 tab Q6H PRN GTB PAIN LEVEL 7-10; Start 07/22/17 at 05:30 Pantoprazole (Protonix Iv) 40 mg BID@06,18 IV Last administered on 07/25/17 06:26; Admin Dose 40 MG; Start 07/22/17 at 18:00 Miscellaneous Information 1 ea NOTE XX ; Start 07/22/17 at 15:00 Glucose (Glutose) 15 gm Q15M PRN PO DECREASED GLUCOSE; Start 07/22/17 at 15:00 Glucose (Glutose) 22.5 gm Q15M PRN PO DECREASED GLUCOSE; Start 07/22/17 at 15: 00 Dextrose (D50w Syringe) 25 ml Q15M PRN IV DECREASED GLUCOSE; Start 07/22/17 at 15:00 Dextrose (D50w Syringe) 50 ml Q15M PRN IV DECREASED GLUCOSE; Start 07/22/17 at 15:00 Glucagon (Glucagen) 1 mg Q15M PRN IM DECREASED GLUCOSE; Start 07/22/17 at 15: 00 Glucose 15 gm 15 gm Q15M PRN BUCCAL DECREASED GLUCOSE; Start 07/22/17 at 15:00 Sodium Chloride 1,000 ml @ 70 mls/hr [id number] IV Last administered on 22:16; Admin Dose 70 MLS/HR; Start 07/23/17 at 11:30 Ferric Sodium Gluconate Complex/ Sodium Chloride (Ferrlecit/NS) 110 ml @ 110 mls/hr Q24H IVPB Last administered on 07/24/17 12:32; Admin Dose 110 MLS/HR; Start 07/23/17 at 12:30; Stop 07/27/17 at 13:29 Insulin Human NPH (Humulin N) 6 unit Q6 SC Last administered on 07/25/17 06: 33; Admin Dose 6 UNIT; Start 07/23/17 at 18:00 Linezolid (Zyvox) 600 mg BID PO Last administered on 07/25/17 08:22; Admin Dose 600 MG; Start 07/23/17 at 21:00 Fluconazole (Diflucan) 100 mg DAILY PO Last administered on 07/25/17 08:23; Admin Dose 100 MG; Start 07/25/17 at 09:00 Insulin Glargine (Lantus) 25 unit DAILY@20 SC Last administered on 07/24/17 20:49; Admin Dose 25 UNIT; Start 07/24/17 at 20:00 HELENA NASH MD Jul 25, 2017 12:38
[2017-07-25] MEDS: SOD FERRIC GLUC COMPLX 125 MG in SOD CHLORIDE 0.9% 100 ML IVPB SCH (13:22)
--- NOTE | 2017-07-25 13:52 | CONS ---
Date/Time of Note Date/Time of Note DATE: 07/25/17 TIME: 13:51 Consult Date/Type/Reason Admit Date/Time Jul 21, 2017 at 23:24 Initial Consult Date 07/22/17 Type of Consultation: ID Ordering Provider: CASEY ALEXANDER MD Objective Vital Signs Date Time Temp Pulse Resp B/P Pulse Ox O2 Delivery O2 Flow Rate FiO2 07/25/17 13:00 79 22 100 30 07/25/17 11:50 98.6 93/51 07/21/17 19:48 Room Air Intake and Output 07/24/17 07/24/17 07/25/17 15:00 23:00 07:00 Intake Total 1360 ml 1565 ml Output Total 1400 ml 100 ml Balance -40 ml 1465 ml Results/Medications Result Diagram: 07/25/17 0803 07/25/17 0926 Results 24 hrs Laboratory Tests Test 07/24/17 17:21 07/24/17 20:43 07/24/17 23:51 07/25/17 06:28 Bedside Glucose 191 183 180 150 Test 07/25/17 08:03 07/25/17 09:26 07/25/17 13:09 White Blood Count 7.4 Red Blood Count 3.15 L Hemoglobin 7.9 L Hematocrit 26.6 L Mean Corpuscular Volume 84.4 Mean Corpuscular Hemoglobin 25.1 L Mean Corpuscular Hemoglobin Concent 29.7 L Red Cell Distribution Width 19.3 H Platelet Count 276 Mean Platelet Volume 10.8 H Neutrophils % 80.4 H Lymphocytes % 11.6 L Monocytes % 4.7 Eosinophils % 2.0 Basophils % 0.1 Nucleated Red Blood Cells % 0.0 Neutrophils # 6.0 Lymphocytes # 0.9 Monocytes # 0.4 Eosinophils # 0.2 Basophils # 0.0 Nucleated Red Blood Cells # 0.0 Sodium Level 139 Potassium Level 4.0 Chloride Level 107 Carbon Dioxide Level 24 Anion Gap 12 Blood Urea Nitrogen 23 H Creatinine 0.76 Glucose Level 142 # Calcium Level 8.9 Bedside Glucose 179 Medications Current Medications Meropenem/Sodium Chloride (Merrem 1 Gm/50 ml (Pmx)) 50 ml @ 100 mls/hr Q12 IVPB Last administered on 07/25/17t 08:24; Admin Dose 100 MLS/HR; Start 07/21 at 23:30 Miscellaneous Information [facility] This patient stern... PRN PRN XX WOUND CARE; Start 07/22/17 at 03:30 Insulin Aspart (Novolog Insulin Pen) NOVOLOG *MILD* ALGORI... Q6 SC Last administered on 07/25/17 13:14; Admin Dose 1 UNIT; Start 07/22/17 at 06:00 Acetaminophen (Tylenol Tab) 650 mg Q4 PRN GTB ELEVATED TEMPERATURE Last administered on 07/25/17 08:22; Admin Dose 650 MG; Start 07/22/17 at 05:30 Ascorbic Acid (Vitamin C) 500 mg Q8 GTB Last administered on 07/25/17 13:22; Admin Dose 500 MG; Start 07/22/17 at 06:00 Baclofen (Lioresal) 20 mg TID GTB Last administered on 07/25/17 13:22; Admin Dose 20 MG; Start 07/22/17 at 09:00 Bisacodyl (Dulcolax Supp) 10 mg DAILY PRN [place] CONSTIPATION; Start 07/22/17 at 05:30 Docusate Sodium (Colace Liquid Cup) 100 mg BID GTB Last administered on 08:22; Admin Dose 100 MG; Start 07/22/17 at 09:00 Epoetin Andrey (Epogen (Esrd)) 15,000 units MoWeFr@17 SC Last administered on 17:23; Admin Dose 15,000 UNITS; Start 07/24/17 at 17:00 Magnesium Hydroxide (Milk Of Mag) 30 ml Q24H PRN PO CONSTIPATION; Start at 05:30 Magnesium Oxide (Mag-Ox 400) 800 mg DAILY GTB Last administered on 07/25/17 08:23; Admin Dose 800 MG; Start 07/22/17 at 09:00 Metoclopramide HCl (Reglan) 10 mg BID GTB Last administered on 07/25/17 08:22 ; Admin Dose 10 MG; Start 07/22/17 at 09:00 Mineral Oil (Fleet Mineral Oil Enema) 133 ml DAILY PRN [place] CONSTIPATION; Start 07/22/17 at 05:30 Multivitamins Therapeutic (Theragran) 1 tab DAILY GTB Last administered on 08:22; Admin Dose 1 TAB; Start 07/22/17 at 09:00 Sucralfate (Carafate) 1 gm DAILY GTB Last administered on 07/25/17 08:22; Admin Dose 1 GM; Start 07/22/17 at 09:00 Tramadol HCl (Ultram) 100 mg DAILY GTB Last administered on 07/25/17 08:23; Admin Dose 100 MG; Start 07/22/17 at 09:00 Acetaminophen/ Hydrocodone Bitart ([place] (5/325)) 1 tab Q6H PRN GTB PAIN LEVEL 7-10; Start 07/22/17 at 05:30 Pantoprazole (Protonix Iv) 40 mg BID@06,18 IV Last administered on 07/25/17 06:26; Admin Dose 40 MG; Start 07/22/17 at 18:00 Miscellaneous Information 1 ea NOTE XX ; Start 07/22/17 at 15:00 Glucose (Glutose) 15 gm Q15M PRN PO DECREASED GLUCOSE; Start 07/22/17 at 15:00 Glucose (Glutose) 22.5 gm Q15M PRN PO DECREASED GLUCOSE; Start 07/22/17 at 15: 00 Dextrose (D50w Syringe) 25 ml Q15M PRN IV DECREASED GLUCOSE; Start 07/22/17 at 15:00 Dextrose (D50w Syringe) 50 ml Q15M PRN IV DECREASED GLUCOSE; Start 07/22/17 at 15:00 Glucagon (Glucagen) 1 mg Q15M PRN IM DECREASED GLUCOSE; Start 07/22/17 at 15: 00 Glucose 15 gm 15 gm Q15M PRN BUCCAL DECREASED GLUCOSE; Start 07/22/17 at 15:00 Sodium Chloride 1,000 ml @ 70 mls/hr [id number] IV Last administered on 13:22; Admin Dose 70 MLS/HR; Start 07/23/17 at 11:30 Ferric Sodium Gluconate Complex/ Sodium Chloride (Ferrlecit/NS) 110 ml @ 110 mls/hr Q24H IVPB Last administered on 07/25/17 13:22; Admin Dose 110 MLS/HR; Start 07/23/17 at 12:30; Stop 07/27/17 at 13:29 Insulin Human NPH (Humulin N) 6 unit Q6 SC Last administered on 07/25/17 13: 14; Admin Dose 6 UNIT; Start 07/23/17 at 18:00 Linezolid (Zyvox) 600 mg BID PO Last administered on 07/25/17 08:22; Admin Dose 600 MG; Start 07/23/17 at 21:00 Fluconazole (Diflucan) 100 mg DAILY PO Last administered on 07/25/17 08:23; Admin Dose 100 MG; Start 07/25/17 at 09:00 Insulin Glargine (Lantus) 25 unit DAILY@20 SC Last administered on 07/24/17 20:49; Admin Dose 25 UNIT; Start 07/24/17 at 20:00 Assessment/Plan Chief Complaint/Hosp Course Noncommunicative, looks comfortable, no fevers Microbiology: Wound culture growing Acinetobacter, VRE, Pilar albicans, staph aureus, coag negative staph species. Blood culture grew staph species Indwelling: Trach/PEG/PICC/Joel Abx: Merrem, Diflucan, Zyvox ALL: PCN, Levaquin, Vanco, Cephalosporins GENERAL: The patient is a nonverbal female who is awake, noncommunicative, no acute distress. SKIN: Without generalized rash. HEENT: Within normal limits. NECK: Supple. Lymph nodes nonpalpable. She has a tracheostomy in place. SKIN: She has a PICC line on the left side in the superior vena cava. CHEST: Decreased breath sounds at the bases. HEART: Without murmur or gallop. ABDOMEN: Soft, nontender. G-tube in place. + BT EXTREMITIES: Without cyanosis, clubbing or edema. Assessment: 1. Sepsis with GPC bacteremia 2. UTI per UA 2. Ischial decub==> pending final cx 3. Acute on chronic anemia==> s/p bld tx, h/h stable 4. ARF=> nephrology follows 5. VDRF 6. Chronic encephalopathy Plan: Clinically stable, continue abx, f/u repeat bld cx and final sensitivities , continue local wound care, vent per pulmonary, consider surgical eval dw staff Problems: FLEX DENNISON NP Jul 25, 2017 13:52
--- NOTE | 2017-07-25 15:24 | CONS ---
Date/Time of Note Date/Time of Note DATE: 07/25/17 TIME: 15:23 Consult Date/Type/Reason Admit Date/Time Jul 21, 2017 at 23:24 Initial Consult Date 07/22/17 Type of Consultation: ID Ordering Provider: CASEY ALEXANDER MD Subjective Patient remains stable this morning. Objective Vital Signs Date Time Temp Pulse Resp B/P Pulse Ox O2 Delivery O2 Flow Rate FiO2 07/25/17 15:05 98.9 103 18 99/62 99 07/25/17 13:00 30 07/21/17 19:48 Room Air Intake and Output 07/24/17 07/24/17 07/25/17 15:00 23:00 07:00 Intake Total 1360 ml 1565 ml Output Total 1400 ml 100 ml Balance -40 ml 1465 ml Exam PHYSICAL EXAMINATION GENERAL: Chronically ill-appearing gentleman comfortable at rest tracheostomy on mechanical ventilation VITAL SIGNS: see below. HEENT: Pupils equal, round, and reactive to light. Tracheostomy site clean and intact. CARDIAC: S1, S2, 1/6 systolic ejection murmur CHEST: Diminished air entry bilaterally. ABDOMEN: Mildly distended. Bowel sounds present no guarding or rebound EXTREMITIES: No cyanosis, clubbing edema +1 NEUROLOGIC: Generalized weakness Results/Medications Result Diagram: 07/25/17 0803 07/25/17 0926 Results 24 hrs Laboratory Tests Test 07/24/17 17:21 07/24/17 20:43 07/24/17 23:51 07/25/17 06:28 Bedside Glucose 191 183 180 150 Test 07/25/17 08:03 07/25/17 09:26 07/25/17 13:09 White Blood Count 7.4 Red Blood Count 3.15 L Hemoglobin 7.9 L Hematocrit 26.6 L Mean Corpuscular Volume 84.4 Mean Corpuscular Hemoglobin 25.1 L Mean Corpuscular Hemoglobin Concent 29.7 L Red Cell Distribution Width 19.3 H Platelet Count 276 Mean Platelet Volume 10.8 H Neutrophils % 80.4 H Lymphocytes % 11.6 L Monocytes % 4.7 Eosinophils % 2.0 Basophils % 0.1 Nucleated Red Blood Cells % 0.0 Neutrophils # 6.0 Lymphocytes # 0.9 Monocytes # 0.4 Eosinophils # 0.2 Basophils # 0.0 Nucleated Red Blood Cells # 0.0 Sodium Level 139 Potassium Level 4.0 Chloride Level 107 Carbon Dioxide Level 24 Anion Gap 12 Blood Urea Nitrogen 23 H Creatinine 0.76 Glucose Level 142 # Calcium Level 8.9 Bedside Glucose 179 Medications Current Medications Meropenem/Sodium Chloride (Merrem 1 Gm/50 ml (Pmx)) 50 ml @ 100 mls/hr Q12 IVPB Last administered on 07/25/17 08:24; Admin Dose 100 MLS/HR; Start 07/21 at 23:30 Miscellaneous Information [facility] This patient stern... PRN PRN XX WOUND CARE; Start 07/22/17 at 03:30 Insulin Aspart (Novolog Insulin Pen) NOVOLOG *MILD* ALGORI... Q6 SC Last administered on 07/25/17 13:14; Admin Dose 1 UNIT; Start 07/22/17 at 06:00 Acetaminophen (Tylenol Tab) 650 mg Q4 PRN GTB ELEVATED TEMPERATURE Last administered on 07/25/17 08:22; Admin Dose 650 MG; Start 07/22/17 at 05:30 Ascorbic Acid (Vitamin C) 500 mg Q8 GTB Last administered on 07/25/17 13:22; Admin Dose 500 MG; Start 07/22/17 at 06:00 Baclofen (Lioresal) 20 mg TID GTB Last administered on 07/25/17 13:22; Admin Dose 20 MG; Start 07/22/17 at 09:00 Bisacodyl (Dulcolax Supp) 10 mg DAILY PRN [place] CONSTIPATION; Start 07/22/17 at 05:30 Docusate Sodium (Colace Liquid Cup) 100 mg BID GTB Last administered on 08:22; Admin Dose 100 MG; Start 07/22/17 at 09:00 Epoetin Andrey (Epogen (Esrd)) 15,000 units MoWeFr@17 SC Last administered on 17:23; Admin Dose 15,000 UNITS; Start 07/24/17 at 17:00 Magnesium Hydroxide (Milk Of Mag) 30 ml Q24H PRN PO CONSTIPATION; Start at 05:30 Magnesium Oxide (Mag-Ox 400) 800 mg DAILY GTB Last administered on 07/25/17 08:23; Admin Dose 800 MG; Start 07/22/17 at 09:00 Metoclopramide HCl (Reglan) 10 mg BID GTB Last administered on 07/25/17 08:22 ; Admin Dose 10 MG; Start 07/22/17 at 09:00 Mineral Oil (Fleet Mineral Oil Enema) 133 ml DAILY PRN [place] CONSTIPATION; Start 07/22/17 at 05:30 Multivitamins Therapeutic (Theragran) 1 tab DAILY GTB Last administered on 08:22; Admin Dose 1 TAB; Start 07/22/17 at 09:00 Sucralfate (Carafate) 1 gm DAILY GTB Last administered on 07/25/17 08:22; Admin Dose 1 GM; Start 07/22/17 at 09:00 Tramadol HCl (Ultram) 100 mg DAILY GTB Last administered on 07/25/17 08:23; Admin Dose 100 MG; Start 07/22/17 at 09:00 Acetaminophen/ Hydrocodone Bitart ([place] (5/325)) 1 tab Q6H PRN GTB PAIN LEVEL 7-10; Start 07/22/17 at 05:30 Pantoprazole (Protonix Iv) 40 mg BID@06,18 IV Last administered on 07/25/17 06:26; Admin Dose 40 MG; Start 07/22/17 at 18:00 Miscellaneous Information 1 ea NOTE XX ; Start 07/22/17 at 15:00 Glucose (Glutose) 15 gm Q15M PRN PO DECREASED GLUCOSE; Start 07/22/17 at 15:00 Glucose (Glutose) 22.5 gm Q15M PRN PO DECREASED GLUCOSE; Start 07/22/17 at 15: 00 Dextrose (D50w Syringe) 25 ml Q15M PRN IV DECREASED GLUCOSE; Start 07/22/17 at 15:00 Dextrose (D50w Syringe) 50 ml Q15M PRN IV DECREASED GLUCOSE; Start 07/22/17 at 15:00 Glucagon (Glucagen) 1 mg Q15M PRN IM DECREASED GLUCOSE; Start 07/22/17 at 15: 00 Glucose 15 gm 15 gm Q15M PRN BUCCAL DECREASED GLUCOSE; Start 07/22/17 at 15:00 Sodium Chloride 1,000 ml @ 70 mls/hr [id number] IV Last administered on 13:22; Admin Dose 70 MLS/HR; Start 07/23/17 at 11:30 Ferric Sodium Gluconate Complex/ Sodium Chloride (Ferrlecit/NS) 110 ml @ 110 mls/hr Q24H IVPB Last administered on 07/25/17 13:22; Admin Dose 110 MLS/HR; Start 07/23/17 at 12:30; Stop 07/27/17 at 13:29 Insulin Human NPH (Humulin N) 6 unit Q6 SC Last administered on 07/25/17 13: 14; Admin Dose 6 UNIT; Start 07/23/17 at 18:00 Linezolid (Zyvox) 600 mg BID PO Last administered on 07/25/17 08:22; Admin Dose 600 MG; Start 07/23/17 at 21:00 Fluconazole (Diflucan) 100 mg DAILY PO Last administered on 07/25/17 08:23; Admin Dose 100 MG; Start 07/25/17 at 09:00 Insulin Glargine (Lantus) 25 unit DAILY@20 SC Last administered on 07/24/17 20:49; Admin Dose 25 UNIT; Start 07/24/17 at 20:00 Assessment/Plan Chief Complaint/Hosp Course Additional Assessment/Plan IMP: 1. Anemia--r/o GIB, pending iron panel. 2. Urosepsis 3. VDRF 4. Encephalopathy RECS: 1. Vent support 2. BD's/CPT 3. Abx per ID 4. GIB w/u per GI Problems: ULYSSES FORRESTER MD, [facility] Jul 25, 2017 15:24
--- NOTE | 2017-07-25 15:56 | PN ---
Date/Time of Note Date/Time of Note DATE: 07/25/17 TIME: 15:49 Assessment/Plan VTE Prophylaxis VTE Prophylaxis Intervention: SCD's Lines/Catheters IV Catheter Type (from Nrs): PICC Line Central line still needed: Yes Urinary Cath still in place: Yes Reason Cath still needed: urinary retention Assessment/Plan Chief Complaint/Hosp Course Blood sugar is better controlled, patient continues on ventilatory support without distress. Assessment/Plan -Sepsis secondary to UTI . Continue antibiotics per ID . Dr. Zavaleta is following in infection disease consultation. -Anemia, rule out GI bleed. Dr. Ruiz is following in gastroenterology consultation. -Advanced multiple sclerosis -Ventilator dependent respiratory failure. Dr. Blackwell is following in pulmonology consultation. -Dysphagia with PEG -Multiple decubitus ulcer, continue wound care per wound care consult. -Acute on chronic encephalopathy. Further recommendations based on clinical course. Plan of care discussed with Dr. Taylor. Problems: Exam/Review of Systems Vital Signs Vitals Vital Signs Date Time Temp Pulse Resp B/P Pulse Ox O2 Delivery O2 Flow Rate FiO2 07/25/17 15:05 98.9 103 18 99/62 99 07/25/17 13:00 30 07/21/17 19:48 Room Air Intake and Output 07/24/17 07/24/17 07/25/17 15:00 23:00 07:00 Intake Total 1360 ml 1565 ml Output Total 1400 ml 100 ml Balance -40 ml 1465 ml Exam Constitutional: non-verbal Head: normocephalic Neck: other (Tracheostomy) Respiratory: diminished breath sounds Cardiovascular: nl pulses Gastrointestinal: non-tender, other (G-tube), soft Musculoskeletal: muscle weakness Neurological: confused Skin: other (Multiple wounds) Results Result Diagram: 07/25/17 0803 07/25/17 0926 Results 24 hrs Laboratory Tests Test 07/24/17 17:21 07/24/17 20:43 07/24/17 23:51 07/25/17 06:28 Bedside Glucose 191 183 180 150 Test 07/25/17 08:03 07/25/17 09:26 07/25/17 13:09 White Blood Count 7.4 Red Blood Count 3.15 L Hemoglobin 7.9 L Hematocrit 26.6 L Mean Corpuscular Volume 84.4 Mean Corpuscular Hemoglobin 25.1 L Mean Corpuscular Hemoglobin Concent 29.7 L Red Cell Distribution Width 19.3 H Platelet Count 276 Mean Platelet Volume 10.8 H Neutrophils % 80.4 H Lymphocytes % 11.6 L Monocytes % 4.7 Eosinophils % 2.0 Basophils % 0.1 Nucleated Red Blood Cells % 0.0 Neutrophils # 6.0 Lymphocytes # 0.9 Monocytes # 0.4 Eosinophils # 0.2 Basophils # 0.0 Nucleated Red Blood Cells # 0.0 Sodium Level 139 Potassium Level 4.0 Chloride Level 107 Carbon Dioxide Level 24 Anion Gap 12 Blood Urea Nitrogen 23 H Creatinine 0.76 Glucose Level 142 # Calcium Level 8.9 Bedside Glucose 179 Medications Medications Current Medications Meropenem/Sodium Chloride (Merrem 1 Gm/50 ml (Pmx)) 50 ml @ 100 mls/hr Q12 IVPB Last administered on 07/25/17 08:24; Admin Dose 100 MLS/HR; Start 07/21 at 23:30 Miscellaneous Information (Pending [facility] Order For [facility]ound Care) This patient stern... PRN PRN XX WOUND CARE; Start 07/22/17 at 03:30 Insulin Aspart (Novolog Insulin Pen) NOVOLOG *MILD* ALGORI... Q6 SC Last administered on 07/25/17 13:14; Admin Dose 1 UNIT; Start 07/22/17 at 06:00 Acetaminophen (Tylenol Tab) 650 mg Q4 PRN GTB ELEVATED TEMPERATURE Last administered on 07/25/17 08:22; Admin Dose 650 MG; Start 07/22/17 at 05:30 Ascorbic Acid (Vitamin C) 500 mg Q8 GTB Last administered on 07/25/17 13:22; Admin Dose 500 MG; Start 07/22/17 at 06:00 Baclofen (Lioresal) 20 mg TID GTB Last administered on 07/25/17 13:22; Admin Dose 20 MG; Start 07/22/17 at 09:00 Bisacodyl (Dulcolax Supp) 10 mg DAILY PRN [place] CONSTIPATION; Start 07/22/17 at 05:30 Docusate Sodium (Colace Liquid Cup) 100 mg BID GTB Last administered on 08:22; Admin Dose 100 MG; Start 07/22/17 at 09:00 Epoetin Andrey (Epogen (Esrd)) 15,000 units MoWeFr@17 SC Last administered on 17:23; Admin Dose 15,000 UNITS; Start 07/24/17 at 17:00 Magnesium Hydroxide (Milk Of Mag) 30 ml Q24H PRN PO CONSTIPATION; Start at 05:30 Magnesium Oxide (Mag-Ox 400) 800 mg DAILY GTB Last administered on 07/25/17 08:23; Admin Dose 800 MG; Start 07/22/17 at 09:00 Metoclopramide HCl (Reglan) 10 mg BID GTB Last administered on 07/25/17 08:22 ; Admin Dose 10 MG; Start 07/22/17 at 09:00 Mineral Oil (Fleet Mineral Oil Enema) 133 ml DAILY PRN [place] CONSTIPATION; Start 07/22/17 at 05:30 Multivitamins Therapeutic (Theragran) 1 tab DAILY GTB Last administered on 08:22; Admin Dose 1 TAB; Start 07/22/17 at 09:00 Sucralfate (Carafate) 1 gm DAILY GTB Last administered on 07/25/17 08:22; Admin Dose 1 GM; Start 07/22/17 at 09:00 Tramadol HCl (Ultram) 100 mg DAILY GTB Last administered on 07/25/17 08:23; Admin Dose 100 MG; Start 07/22/17 at 09:00 Acetaminophen/ Hydrocodone Bitart ([place] (5/325)) 1 tab Q6H PRN GTB PAIN LEVEL 7-10; Start 07/22/17 at 05:30 Pantoprazole (Protonix Iv) 40 mg BID@,18 IV Last administered on 07/25/17 06:26; Admin Dose 40 MG; Start 07/22/17 at 18:00 Miscellaneous Information 1 ea NOTE XX ; Start 07/22/17 at 15:00 Glucose (Glutose) 15 gm Q15M PRN PO DECREASED GLUCOSE; Start 07/22/17 at 15:00 Glucose (Glutose) 22.5 gm Q15M PRN PO DECREASED GLUCOSE; Start 07/22/17 at 15: 00 Dextrose (D50w Syringe) 25 ml Q15M PRN IV DECREASED GLUCOSE; Start 07/22/17 at 15:00 Dextrose (D50w Syringe) 50 ml Q15M PRN IV DECREASED GLUCOSE; Start 07/22/17 at 15:00 Glucagon (Glucagen) 1 mg Q15M PRN IM DECREASED GLUCOSE; Start 07/22/17 at 15: 00 Glucose 15 gm 15 gm Q15M PRN BUCCAL DECREASED GLUCOSE; Start 07/22/17 at 15:00 Sodium Chloride 1,000 ml @ 70 mls/hr [id number] IV Last administered on 13:22; Admin Dose 70 MLS/HR; Start 07/23/17 at 11:30 Ferric Sodium Gluconate Complex/ Sodium Chloride (Ferrlecit/NS) 110 ml @ 110 mls/hr Q24H IVPB Last administered on 07/25/17 13:22; Admin Dose 110 MLS/HR; Start 07/23/17 at 12:30; Stop 07/27/17 at 13:29 Insulin Human NPH (Humulin N) 6 unit Q6 SC Last administered on 07/25/17 13: 14; Admin Dose 6 UNIT; Start 07/23/17 at 18:00 Linezolid (Zyvox) 600 mg BID PO Last administered on 07/25/17 08:22; Admin Dose 600 MG; Start 07/23/17 at 21:00 Fluconazole (Diflucan) 100 mg DAILY PO Last administered on 07/25/17 08:23; Admin Dose 100 MG; Start 07/25/17 at 09:00 Insulin Glargine (Lantus) 25 unit DAILY@20 SC Last administered on 07/24/17 20:49; Admin Dose 25 UNIT; Start 07/24/17 at 20:00 ALIZA ANDRADE Jul 25, 2017 15:55
--- NOTE | 2017-07-25 17:04 | CONS ---
Date/Time of Note Date/Time of Note DATE: 07/25/17 TIME: 17:02 Assessment/Plan Assessment/Plan Additional Assessment/Plan 1. Acute kidney injury due to ATN From sepsis + prerenal azotemia 2. Sepsis due to UTI 3. Chronic resp failure s/p Tracheostomy on ventilator 4/ Anemia of chronic disease 5/ HTN Plan : Cr normal now - d/c IV Fluid, continue Tube feeding as ordered on IV iron for iron deficiency IV meropenem- renally dose all abx Expecting Cr to improve with IVF hydration and IV abx for UTI no need for renal US at this time will follow up Consultation Date/Type/Reason Admit Date/Time Jul 21, 2017 at 23:24 Initial Consult Date 07/22/17 Type of Consultation: NEPHROLGOY Referring Provider: CASEY ALEXANDER MD 24 HR Interval Summary Free Text/Dictation Cr normal now, on 10/03 NS Exam/Review of Systems Vital Signs Vitals Vital Signs Date Time Temp Pulse Resp B/P Pulse Ox O2 Delivery O2 Flow Rate FiO2 07/25/17 15:26 84 12 100 30 07/25/17 15:05 98.9 99/62 07/21/17 19:48 Room Air Intake and Output 07/24/17 07/24/17 07/25/17 15:00 23:00 07:00 Intake Total 1360 ml 1565 ml Output Total 1400 ml 100 ml Balance -40 ml 1465 ml Exam Constitutional: non-verbal, + tracheostomy on ventilator Neck: non-tender, supple Respiratory: crackles/rales, diminished breath sounds Cardiovascular: nl pulses, regular rate and rhythm Gastrointestinal: non-tender, soft, +G tube Musculoskeletal: dry skin, pedal pulses 2+ Extremities: normal pulses Results Result Diagram: 07/25/17 0803 07/25/17 0926 Results 24 hrs Laboratory Tests Test 07/24/17 17:21 07/24/17 20:43 07/24/17 23:51 07/25/17 06:28 Bedside Glucose 191 183 180 150 Test 07/25/17 08:03 07/25/17 09:26 07/25/17 13:09 White Blood Count 7.4 Red Blood Count 3.15 L Hemoglobin 7.9 L Hematocrit 26.6 L Mean Corpuscular Volume 84.4 Mean Corpuscular Hemoglobin 25.1 L Mean Corpuscular Hemoglobin Concent 29.7 L Red Cell Distribution Width 19.3 H Platelet Count 276 Mean Platelet Volume 10.8 H Neutrophils % 80.4 H Lymphocytes % 11.6 L Monocytes % 4.7 Eosinophils % 2.0 Basophils % 0.1 Nucleated Red Blood Cells % 0.0 Neutrophils # 6.0 Lymphocytes # 0.9 Monocytes # 0.4 Eosinophils # 0.2 Basophils # 0.0 Nucleated Red Blood Cells # 0.0 Sodium Level 139 Potassium Level 4.0 Chloride Level 107 Carbon Dioxide Level 24 Anion Gap 12 Blood Urea Nitrogen 23 H Creatinine 0.76 Glucose Level 142 # Calcium Level 8.9 Bedside Glucose 179 Medications Medications Current Medications Meropenem/Sodium Chloride (Merrem 1 Gm/50 ml (Pmx)) 50 ml @ 100 mls/hr Q12 IVPB Last administered on 07/25/17 08:24; Admin Dose 100 MLS/HR; Start 07/21 at 23:30 Miscellaneous Information [facility]) This patient stern... PRN PRN XX WOUND CARE; Start 07/22/17 at 03:30 Insulin Aspart (Novolog Insulin Pen) NOVOLOG *MILD* ALGORI... Q6 SC Last administered on 07/25/17 13:14; Admin Dose 1 UNIT; Start 07/22/17 at 06:00 Acetaminophen (Tylenol Tab) 650 mg Q4 PRN GTB ELEVATED TEMPERATURE Last administered on 07/25/17 08:22; Admin Dose 650 MG; Start 07/22/17 at 05:30 Ascorbic Acid (Vitamin C) 500 mg Q8 GTB Last administered on 07/25/17 13:22; Admin Dose 500 MG; Start 07/22/17 at 06:00 Baclofen (Lioresal) 20 mg TID GTB Last administered on 07/25/17 13:22; Admin Dose 20 MG; Start 07/22/17 at 09:00 Bisacodyl (Dulcolax Supp) 10 mg DAILY PRN [place] CONSTIPATION; Start 07/22/17 at 05:30 Docusate Sodium (Colace Liquid Cup) 100 mg BID GTB Last administered on 08:22; Admin Dose 100 MG; Start 07/22/17 at 09:00 Epoetin Andrey (Epogen (Esrd)) 15,000 units MoWeFr@17 SC Last administered on 17:23; Admin Dose 15,000 UNITS; Start 07/24/17 at 17:00 Magnesium Hydroxide (Milk Of Mag) 30 ml Q24H PRN [place] CONSTIPATION; Start at 05:30 Magnesium Oxide (Mag-Ox 400) 800 mg DAILY GTB Last administered on 07/25/17 08:23; Admin Dose 800 MG; Start 07/22/17 at 09:00 Metoclopramide HCl (Reglan) 10 mg BID GTB Last administered on 07/25/17 08:22 ; Admin Dose 10 MG; Start 07/22/17 at 09:00 Mineral Oil (Fleet Mineral Oil Enema) 133 ml DAILY PRN [place] CONSTIPATION; Start 07/22/17 at 05:30 Multivitamins Therapeutic (Theragran) 1 tab DAILY GTB Last administered on 08:22; Admin Dose 1 TAB; Start 07/22/17 at 09:00 Sucralfate (Carafate) 1 gm DAILY GTB Last administered on 07/25/17 08:22; Admin Dose 1 GM; Start 07/22/17 at 09:00 Tramadol HCl (Ultram) 100 mg DAILY GTB Last administered on 07/25/17 08:23; Admin Dose 100 MG; Start 07/22/17 at 09:00 Acetaminophen/ Hydrocodone Bitart ([place] (5/325)) 1 tab Q6H PRN GTB PAIN LEVEL 7-10; Start 07/22/17 at 05:30 Pantoprazole (Protonix Iv) 40 mg BID@,18 IV Last administered on 07/25/17 06:26; Admin Dose 40 MG; Start 07/22/17 at 18:00 Miscellaneous Information 1 ea NOTE XX ; Start 07/22/17 at 15:00 Glucose (Glutose) 15 gm Q15M PRN PO DECREASED GLUCOSE; Start 07/22/17 at 15:00 Glucose (Glutose) 22.5 gm Q15M PRN PO DECREASED GLUCOSE; Start 07/22/17 at 15: 00 Dextrose (D50w Syringe) 25 ml Q15M PRN IV DECREASED GLUCOSE; Start 07/22/17 at 15:00 Dextrose (D50w Syringe) 50 ml Q15M PRN IV DECREASED GLUCOSE; Start 07/22/17 at 15:00 Glucagon (Glucagen) 1 mg Q15M PRN IM DECREASED GLUCOSE; Start 07/22/17 at 15: 00 Glucose 15 gm 15 gm Q15M PRN BUCCAL DECREASED GLUCOSE; Start 07/22/17 at 15:00 Sodium Chloride 1,000 ml @ 70 mls/hr [id number] IV Last administered on 13:22; Admin Dose 70 MLS/HR; Start 07/23/17 at 11:30 Ferric Sodium Gluconate Complex/ Sodium Chloride (Ferrlecit/NS) 110 ml @ 110 mls/hr Q24H IVPB Last administered on 07/25/17 13:22; Admin Dose 110 MLS/HR; Start 07/23/17 at 12:30; Stop 07/27/17 at 13:29 Insulin Human NPH (Humulin N) 6 unit Q6 SC Last administered on 07/25/17 13: 14; Admin Dose 6 UNIT; Start 07/23/17 at 18:00 Linezolid (Zyvox) 600 mg BID PO Last administered on 07/25/17 08:22; Admin Dose 600 MG; Start 07/23/17 at 21:00 Fluconazole (Diflucan) 100 mg DAILY PO Last administered on 07/25/17 08:23; Admin Dose 100 MG; Start 07/25/17 at 09:00 Insulin Glargine (Lantus) 25 unit DAILY@20 SC Last administered on 07/24/17 20:49; Admin Dose 25 UNIT; Start 07/24/17 at 20:00 LIZETTE ALEX MD Jul 25, 2017 17:04
[2017-07-25] MEDS: INSULIN GLARGINE [LANtus] 3 ML PEN SC SCH (20:07)
[2017-07-26] VITALS (21 sets, daily range): BP systolic 94–128; BP diastolic 57–70; PULSE 85–107; RESP 12–20
[2017-07-26] MEDS: PANTOPRAZOLE 40 MG INJ IV SCH ×2 (05:39→16:43)
[2017-07-26] MEDS: ASCORBIC ACID 500 MG TAB GTB SCH ×3 (05:39→21:08)
[2017-07-26] MEDS: INSULIN ASPART [NOVOLOG] 3 ML PEN SC SCH ×3 (05:45→16:44)
[2017-07-26] MEDS: NPH, HUMAN INSULIN ISOPHANE 3ML VIAL SC SCH ×3 (05:46→16:45)
[2017-07-26 06:32] LABS: BASOPHILS % 0.3 % (0.0-2.0); EOSINOPHILS # 0.2 10^3/ul (0.0-0.5); EOSINOPHILS % 2.5 % (0.0-7.0); HEMATOCRIT 25.8 % (37.0-47.0); HEMOGLOBIN 7.8 g/dl (12.0-16.0); LYMPHOCYTES # 0.9 10^3/ul (0.8-2.9); LYMPHOCYTES % 14.7 % (15.0-51.0); MEAN CORPUSCULAR HEMOGLOBIN 25.4 pg (29.0-33.0); MEAN CORPUSCULAR HGB CONC 30.2 g/dl (32.0-37.0); MEAN PLATELET VOLUME 10.8 fl (7.4-10.4); MONOCYTE # 0.3 10^3/ul (0.3-0.9); MONOCYTES % 5.3 % (0.0-11.0); NEUTROPHIL # 4.6 10^3/ul (1.6-7.5); NEUTROPHILS % 75.9 % (39.0-77.0); PLATELET COUNT 288 10^3/UL (140-415); RED BLOOD COUNT 3.07 10^6/ul (4.20-5.40); RED CELL DISTRIBUTION WIDTH 19.5 % (11.5-14.5); WHITE BLOOD COUNT 6.1 10^3/ul (4.8-10.8)
[2017-07-26 07:03] LABS: CALCIUM 8.7 mg/dl (8.4-10.2); CREATININE 0.72 mg/dl (0.44-1.00); POTASSIUM 4.1 mmol/L (3.5-5.1)
[2017-07-26] MEDS: ACETAMINOPHEN 325 MG TAB GTB PRN (08:57)
[2017-07-26] MEDS: BACLOFEN 10 MG TAB GTB SCH ×3 (08:57→21:08)
[2017-07-26] MEDS: DOCUSATE SODIUM 10 MG/ML (10ML CUP) GTB SCH ×2 (08:57→21:08)
[2017-07-26] MEDS: METOCLOPRAMIDE 10 MG TAB GTB SCH ×2 (08:58→21:08)
[2017-07-26] MEDS: ZYVOX 600 MG TAB PO SCH ×2 (08:58→21:08)
[2017-07-26] MEDS: MAGNESIUM OXIDE 400 MG TAB GTB SCH (08:58)
[2017-07-26] MEDS: FLUCONAZOLE 100 MG TAB PO SCH (08:58)
[2017-07-26] MEDS: SUCRALFATE 1 GM TAB GTB SCH (08:58)
[2017-07-26] MEDS: MULTIVITAMINS THERAPEUTIC TAB GTB SCH (08:58)
[2017-07-26] MEDS: MEROPENEM 1 GM/50ML(PMX) 50 ML IVPB SCH (08:59)
[2017-07-26] MEDS: traMADol 50 MG TAB GTB SCH (08:59)
--- NOTE | 2017-07-26 12:00 | CONS ---
Date/Time of Note Date/Time of Note DATE: 07/26/17 TIME: 11:58 Assessment/Plan Assessment/Plan Additional Assessment/Plan Ventilator setting; AC of 20, tidal volume 500, PEEP of 5, 30% FiO2. Assessment and recommendations; 1. Patient admitted with UTI with sepsis and severe anemia, responding well to current antibiotic regimen. 2. Chronic respiratory failure with advanced dementia. 3. Multiple organisms cultured from decubitus wounds. Continue current supportive care. Consultation Date/Type/Reason Admit Date/Time Jul 21, 2017 at 23:24 Initial Consult Date 07/22/17 Type of Consultation: Pulmonary Referring Provider: CASEY ALEXANDER MD 24 HR Interval Summary Free Text/Dictation Patient's condition has remained stable. Remains essentially unresponsive. Remains chronically ventilator dependent. General exam; middle-aged woman, on ventilator via tracheostomy, currently in no distress. Exam/Review of Systems Vital Signs Vitals Vital Signs Date Time Temp Pulse Resp B/P Pulse Ox O2 Delivery O2 Flow Rate FiO2 07/26/17 08:45 107 07/26/17 08:20 18 100 30 07/26/17 07:55 100.1 128/70 Intake and Output 07/25/17 07/25/17 07/26/17 15:00 23:00 07:00 Intake Total 1610 ml 550 ml Output Total 1800 ml 600 ml Balance -190 ml -50 ml Exam HEENT exam; supple neck, no JVD. No lymphadenopathy. Midline trachea. No thyromegaly. Tracheostomy in place. Pupils are small bilaterally. Chest exam; clear to auscultation. S1-S2 audible, no murmurs. Regular rhythm. Abdomen exam; soft, G-tube in place. No organomegaly. Bowel sounds audible. Extremity exam; no peripheral edema. [employer] exam; patient remains unresponsive. Results Result Diagram: 07/26/17 0602 07/26/17 0602 Results 24 hrs Laboratory Tests Test 07/25/17 13:09 07/25/17 17:20 07/25/17 20:03 07/25/17 23:48 Bedside Glucose 179 172 141 179 Test 07/26/17 01:00 07/26/17 05:41 07/26/17 06:02 Stool Occult Blood NEGATIVE Bedside Glucose 153 White Blood Count 6.1 Red Blood Count 3.07 L Hemoglobin 7.8 L Hematocrit 25.8 L Mean Corpuscular Volume 84.0 Mean Corpuscular Hemoglobin 25.4 L Mean Corpuscular Hemoglobin Concent 30.2 L Red Cell Distribution Width 19.5 H Platelet Count 288 Mean Platelet Volume 10.8 H Neutrophils % 75.9 Lymphocytes % 14.7 L Monocytes % 5.3 Eosinophils % 2.5 Basophils % 0.3 Nucleated Red Blood Cells % 0.0 Neutrophils # 4.6 Lymphocytes # 0.9 Monocytes # 0.3 Eosinophils # 0.2 Basophils # 0.0 Nucleated Red Blood Cells # 0.0 Sodium Level 139 Potassium Level 4.1 Chloride Level 106 Carbon Dioxide Level 24 Anion Gap 13 Blood Urea Nitrogen 22 H Creatinine 0.72 Glucose Level 141 Calcium Level 8.7 Medications Medications Current Medications Meropenem/Sodium Chloride (Merrem 1 Gm/50 ml (Pmx)) 50 ml @ 100 mls/hr Q12 IVPB Last administered on 07/26/17 08:59; Admin Dose 100 MLS/HR; Start 07/21 at 23:30 Miscellaneous Information (Pending [facility] Order For Wound Care) This patient stern... PRN PRN XX WOUND CARE; Start 07/22/17 at 03:30 Insulin Aspart (Novolog Insulin Pen) NOVOLOG *MILD* ALGORI... Q6 SC Last administered on 07/26/17 05:45; Admin Dose 1 UNIT; Start 07/22/17 at 06:00 Acetaminophen (Tylenol Tab) 650 mg Q4 PRN GTB ELEVATED TEMPERATURE Last administered on 07/26/17 08:57; Admin Dose 650 MG; Start 07/22/17 at 05:30 Ascorbic Acid (Vitamin C) 500 mg Q8 GTB Last administered on 07/26/17 05:39; Admin Dose 500 MG; Start 07/22/17 at 06:00 Baclofen (Lioresal) 20 mg TID GTB Last administered on 07/26/17 08:57; Admin Dose 20 MG; Start 07/22/17 at 09:00 Bisacodyl (Dulcolax Supp) 10 mg DAILY PRN [place] CONSTIPATION; Start 07/22/17 at 05:30 Docusate Sodium (Colace Liquid Cup) 100 mg BID GTB Last administered on 08:57; Admin Dose 100 MG; Start 07/22/17 at 09:00 Epoetin Andrey (Epogen (Esrd)) 15,000 units MoWeFr@17 SC Last administered on 17:23; Admin Dose 15,000 UNITS; Start 07/24/17 at 17:00 Magnesium Hydroxide (Milk Of Mag) 30 ml Q24H PRN PO CONSTIPATION; Start at 05:30 Magnesium Oxide (Mag-Ox 400) 800 mg DAILY GTB Last administered on 07/26/17 08:58; Admin Dose 800 MG; Start 07/22/17 at 09:00 Metoclopramide HCl (Reglan) 10 mg BID GTB Last administered on 07/26/17 08:58 ; Admin Dose 10 MG; Start 07/22/17 at 09:00 Mineral Oil (Fleet Mineral Oil Enema) 133 ml DAILY PRN [place] CONSTIPATION; Start 07/22/17 at 05:30 Multivitamins Therapeutic (Theragran) 1 tab DAILY GTB Last administered on 08:58; Admin Dose 1 TAB; Start 07/22/17 at 09:00 Sucralfate (Carafate) 1 gm DAILY GTB Last administered on 07/26/17 08:58; Admin Dose 1 GM; Start 07/22/17 at 09:00 Tramadol HCl (Ultram) 100 mg DAILY GTB Last administered on 07/26/17 08:59; Admin Dose 100 MG; Start 07/22/17 at 09:00 Acetaminophen/ Hydrocodone Bitart ([place] (5/325)) 1 tab Q6H PRN GTB PAIN LEVEL 7-10; Start 07/22/17 at 05:30 Pantoprazole (Protonix Iv) 40 mg BID@06,18 IV Last administered on 07/26/17 05:39; Admin Dose 40 MG; Start 07/22/17 at 18:00 Miscellaneous Information 1 ea NOTE XX ; Start 07/22/17 at 15:00 Glucose (Glutose) 15 gm Q15M PRN PO DECREASED GLUCOSE; Start 07/22/17 at 15:00 Glucose (Glutose) 22.5 gm Q15M PRN PO DECREASED GLUCOSE; Start 07/22/17 at 15: 00 Dextrose (D50w Syringe) 25 ml Q15M PRN IV DECREASED GLUCOSE; Start 10/21/17 at 15:00 Dextrose (D50w Syringe) 50 ml Q15M PRN IV DECREASED GLUCOSE; Start 07/22/17 at 15:00 Glucagon (Glucagen) 1 mg Q15M PRN IM DECREASED GLUCOSE; Start 07/22/17 at 15: 00 Glucose 15 gm 15 gm Q15M PRN BUCCAL DECREASED GLUCOSE; Start 07/22/17 at 15:00 Ferric Sodium Gluconate Complex/ Sodium Chloride (Ferrlecit/NS) 110 ml @ 110 mls/hr Q24H IVPB Last administered on 07/25/17 13:22; Admin Dose 110 MLS/HR; Start 07/23/17 at 12:30; Stop 07/27/17 at 13:29 Insulin Human NPH (Humulin N) 6 unit Q6 SC Last administered on 07/26/17 05: 46; Admin Dose 6 UNIT; Start 07/23/17 at 18:00 Linezolid (Zyvox) 600 mg BID PO Last administered on 07/26/17 08:58; Admin Dose 600 MG; Start 07/23/17 at 21:00 Fluconazole (Diflucan) 100 mg DAILY PO Last administered on 07/26/17 08:58; Admin Dose 100 MG; Start 07/25/17 at 09:00 Insulin Glargine (Lantus) 25 unit DAILY@20 SC Last administered on 07/25/17 20:07; Admin Dose 25 UNIT; Start 07/24/17 at 20:00 ARYAN COLLADO Jul 26, 2017 12:00
[2017-07-26] MEDS: EPOETIN 10000 UNITS/1 ML INJ (ESRD) SC SCH (12:50)
[2017-07-26] MEDS: SOD FERRIC GLUC COMPLX 125 MG in SOD CHLORIDE 0.9% 100 ML IVPB SCH (12:50)
--- NOTE | 2017-07-26 14:33 | CONS ---
Date/Time of Note Date/Time of Note DATE: 07/26/17 TIME: 14:32 Consult Date/Type/Reason Admit Date/Time Jul 21, 2017 at 23:24 Initial Consult Date 07/22/17 Type of Consultation: id Ordering Provider: CASEY ALEXANDER MD Objective Vital Signs Date Time Temp Pulse Resp B/P Pulse Ox O2 Delivery O2 Flow Rate FiO2 07/26/17 12:45 85 07/26/17 12:34 16 98 30 07/26/17 12:16 98.2 94/59 Intake and Output 07/25/17 07/25/17 07/26/17 15:00 23:00 07:00 Intake Total 1610 ml 550 ml Output Total 1800 ml 600 ml Balance -190 ml -50 ml Results/Medications Result Diagram: 07/26/17 0602 07/26/17 0602 Results 24 hrs Laboratory Tests Test 07/25/17 17:20 07/25/17 20:03 07/25/17 23:48 07/26/17 01:00 Bedside Glucose 172 141 179 Stool Occult Blood NEGATIVE Test 07/26/17 05:41 07/26/17 06:02 07/26/17 12:34 Bedside Glucose 153 177 White Blood Count 6.1 Red Blood Count 3.07 L Hemoglobin 7.8 L Hematocrit 25.8 L Mean Corpuscular Volume 84.0 Mean Corpuscular Hemoglobin 25.4 L Mean Corpuscular Hemoglobin Concent 30.2 L Red Cell Distribution Width 19.5 H Platelet Count 288 Mean Platelet Volume 10.8 H Neutrophils % 75.9 Lymphocytes % 14.7 L Monocytes % 5.3 Eosinophils % 2.5 Basophils % 0.3 Nucleated Red Blood Cells % 0.0 Neutrophils # 4.6 Lymphocytes # 0.9 Monocytes # 0.3 Eosinophils # 0.2 Basophils # 0.0 Nucleated Red Blood Cells # 0.0 Sodium Level 139 Potassium Level 4.1 Chloride Level 106 Carbon Dioxide Level 24 Anion Gap 13 Blood Urea Nitrogen 22 H Creatinine 0.72 Glucose Level 141 Calcium Level 8.7 Medications Current Medications Meropenem/Sodium Chloride (Merrem 1 Gm/50 ml (Pmx)) 50 ml @ 100 mls/hr Q12 IVPB Last administered on 07/26/17t 08:59; Admin Dose 100 MLS/HR; Start 07/21 at 23:30 Miscellaneous Information (Pending [facility] Order For Wound Care) This patient stern... PRN PRN XX WOUND CARE; Start 07/22/17 at 03:30 Insulin Aspart (Novolog Insulin Pen) NOVOLOG *MILD* ALGORI... Q6 SC Last administered on 07/26/17 12:38; Admin Dose 1 UNIT; Start 07/22/17 at 06:00 Acetaminophen (Tylenol Tab) 650 mg Q4 PRN GTB ELEVATED TEMPERATURE Last administered on 07/26/17 08:57; Admin Dose 650 MG; Start 07/22/17 at 05:30 Ascorbic Acid (Vitamin C) 500 mg Q8 GTB Last administered on 07/26/17 12:50; Admin Dose 500 MG; Start 07/22/17 at 06:00 Baclofen (Lioresal) 20 mg TID GTB Last administered on 07/26/17 12:48; Admin Dose 20 MG; Start 07/22/17 at 09:00 Bisacodyl (Dulcolax Supp) 10 mg DAILY PRN [place] CONSTIPATION; Start 07/22/17 at 05:30 Docusate Sodium (Colace Liquid Cup) 100 mg BID GTB Last administered on 08:57; Admin Dose 100 MG; Start 07/22/17 at 09:00 Epoetin Andrey (Epogen (Esrd)) 15,000 units MoWeFr@17 SC Last administered on 12:50; Admin Dose 15,000 UNITS; Start 07/24/17 at 17:00 Magnesium Hydroxide (Milk Of Mag) 30 ml Q24H PRN PO CONSTIPATION; Start at 05:30 Magnesium Oxide (Mag-Ox 400) 800 mg DAILY GTB Last administered on 07/26/17 08:58; Admin Dose 800 MG; Start 07/22/17 at 09:00 Metoclopramide HCl (Reglan) 10 mg BID GTB Last administered on 07/26/17 08:58 ; Admin Dose 10 MG; Start 07/22/17 at 09:00 Mineral Oil (Fleet Mineral Oil Enema) 133 ml DAILY PRN [place] CONSTIPATION; Start 07/22/17 at 05:30 Multivitamins Therapeutic (Theragran) 1 tab DAILY GTB Last administered on 08:58; Admin Dose 1 TAB; Start 07/22/17 at 09:00 Sucralfate (Carafate) 1 gm DAILY GTB Last administered on 07/26/17 08:58; Admin Dose 1 GM; Start 07/22/17 at 09:00 Tramadol HCl (Ultram) 100 mg DAILY GTB Last administered on 07/26/17 08:59; Admin Dose 100 MG; Start 07/22/17 at 09:00 Acetaminophen/ Hydrocodone Bitart ([place] (5/325)) 1 tab Q6H PRN GTB PAIN LEVEL 7-10; Start 07/22/17 at 05:30 Pantoprazole (Protonix Iv) 40 mg BID@06,18 IV Last administered on 07/26/17 05:39; Admin Dose 40 MG; Start 07/22/17 at 18:00 Miscellaneous Information 1 ea NOTE XX ; Start 07/22/17 at 15:00 Glucose (Glutose) 15 gm Q15M PRN PO DECREASED GLUCOSE; Start 07/22/17 at 15:00 Glucose (Glutose) 22.5 gm Q15M PRN PO DECREASED GLUCOSE; Start 07/22/17 at 15: 00 Dextrose (D50w Syringe) 25 ml Q15M PRN IV DECREASED GLUCOSE; Start 07/22/17 at 15:00 Dextrose (D50w Syringe) 50 ml Q15M PRN IV DECREASED GLUCOSE; Start 07/22/17 at 15:00 Glucagon (Glucagen) 1 mg Q15M PRN IM DECREASED GLUCOSE; Start 07/22/17 at 15: 00 Glucose 15 gm 15 gm Q15M PRN BUCCAL DECREASED GLUCOSE; Start 07/22/17 at 15:00 Ferric Sodium Gluconate Complex/ Sodium Chloride (Ferrlecit/NS) 110 ml @ 110 mls/hr Q24H IVPB Last administered on 07/26/17 12:50; Admin Dose 110 MLS/HR; Start 07/23/17 at 12:30; Stop 07/27/17 at 13:29 Insulin Human NPH (Humulin N) 6 unit Q6 SC Last administered on 07/26/17 12: 37; Admin Dose 6 UNIT; Start 07/23/17 at 18:00 Linezolid (Zyvox) 600 mg BID PO Last administered on 07/26/17 08:58; Admin Dose 600 MG; Start 07/23/17 at 21:00 Fluconazole (Diflucan) 100 mg DAILY PO Last administered on 07/26/17 08:58; Admin Dose 100 MG; Start 07/25/17 at 09:00 Insulin Glargine (Lantus) 25 unit DAILY@20 SC Last administered on 07/25/17 20:07; Admin Dose 25 UNIT; Start 07/24/17 at 20:00 Assessment/Plan Chief Complaint/Hosp Course Noncommunicative, looks comfortable, no fevers Microbiology: Wound culture growing Acinetobacter, VRE, Pilar albicans, staph aureus, coag negative staph species. Blood culture grew staph species Indwelling: Trach/PEG/PICC/Joel Abx: Merrem, Diflucan, Zyvox ALL: PCN, Levaquin, Vanco, Cephalosporins GENERAL: The patient is a nonverbal female who is awake, noncommunicative, no acute distress. SKIN: Without generalized rash. HEENT: Within normal limits. NECK: Supple. Lymph nodes nonpalpable. She has a tracheostomy in place. SKIN: She has a PICC line on the left side in the superior vena cava. CHEST: Decreased breath sounds at the bases. HEART: Without murmur or gallop. ABDOMEN: Soft, nontender. G-tube in place. + BT EXTREMITIES: Without cyanosis, clubbing or edema. Assessment: 1. Sepsis with GPC bacteremia 2. UTI per UA 2. Ischial decub==> pending final cx 3. Acute on chronic anemia==> s/p bld tx, h/h stable 4. ARF=> nephrology follows 5. VDRF 6. Chronic encephalopathy Plan: Clinically unchanged, will change Merrem to [place], continue abx, f/u repeat bld cx, local wound care, vent per pulmonary, consider surgical eval dw staff Problems: FLEX DENNISON NP Jul 26, 2017 14:33
--- NOTE | 2017-07-26 14:36 | PN ---
Date/Time of Note Date/Time of Note DATE: 07/26/17 TIME: 14:30 Assessment/Plan VTE Prophylaxis VTE Prophylaxis Intervention: SCD's Lines/Catheters IV C[facility]from [facility] PICC Line Central line still needed: Yes Urinary Cath still in place: Yes Reason Cath still needed: urinary retention Assessment/Plan Chief Complaint/Hosp Course Patient remains anemic, we will transfuse 1 unit of packed red blood cells. Stool for OB is negative. Assessment/Plan -Sepsis secondary to UTI . Continue antibiotics per ID . Dr. Zavaleta is following in infection disease consultation. -Anemia, rule out GI bleed. Stool for OB is negative. Dr. Ruiz is following in gastroenterology consultation. -Advanced multiple sclerosis -Ventilator dependent respiratory failure. Dr. Blackwell is following in pulmonology consultation. -Dysphagia with PEG -Multiple decubitus ulcer, continue wound care per wound care consult. -Acute on chronic encephalopathy. Further recommendations based on clinical course. Plan of care discussed with Dr. Taylor. Problems: Exam/Review of Systems Vital Signs Vitals Vital Signs Date Time Temp Pulse Resp B/P Pulse Ox O2 Delivery O2 Flow Rate FiO2 07/26/17 12:45 85 07/26/17 12:34 16 98 30 07/26/17 12:16 98.2 94/59 Intake and Output 07/25/17 07/25/17 07/26/17 15:00 23:00 07:00 Intake Total 1610 ml 550 ml Output Total 1800 ml 600 ml Balance -190 ml -50 ml Exam Constitutional: non-verbal Head: normocephalic Neck: other (Tracheostomy) Respiratory: diminished breath sounds Cardiovascular: nl pulses Gastrointestinal: non-tender, other (G-tube), soft Musculoskeletal: muscle weakness Neurological: confused Skin: other (Multiple wounds) Results Result Diagram: 07/26/17 0602 07/26/17 0602 Results 24 hrs Laboratory Tests Test 07/25/17 17:20 07/25/17 20:03 07/25/17 23:48 07/26/17 01:00 Bedside Glucose 172 141 179 Stool Occult Blood NEGATIVE Test 07/26/17 05:41 07/26/17 06:02 07/26/17 12:34 Bedside Glucose 153 177 White Blood Count 6.1 Red Blood Count 3.07 L Hemoglobin 7.8 L Hematocrit 25.8 L Mean Corpuscular Volume 84.0 Mean Corpuscular Hemoglobin 25.4 L Mean Corpuscular Hemoglobin Concent 30.2 L Red Cell Distribution Width 19.5 H Platelet Count 288 Mean Platelet Volume 10.8 H Neutrophils % 75.9 Lymphocytes % 14.7 L Monocytes % 5.3 Eosinophils % 2.5 Basophils % 0.3 Nucleated Red Blood Cells % 0.0 Neutrophils # 4.6 Lymphocytes # 0.9 Monocytes # 0.3 Eosinophils # 0.2 Basophils # 0.0 Nucleated Red Blood Cells # 0.0 Sodium Level 139 Potassium Level 4.1 Chloride Level 106 Carbon Dioxide Level 24 Anion Gap 13 Blood Urea Nitrogen 22 H Creatinine 0.72 Glucose Level 141 Calcium Level 8.7 Medications Medications Current Medications Meropenem/Sodium Chloride (Merrem 1 Gm/50 ml (Pmx)) 50 ml @ 100 mls/hr Q12 IVPB Last administered on 07/26/17 08:59; Admin Dose 100 MLS/HR; Start 07/21 at 23:30 Miscellaneous Information (Pending [facility] Order For Wound Care) This patient stern... PRN PRN XX WOUND CARE; Start 07/22/17 at 03:30 Insulin Aspart (Novolog Insulin Pen) NOVOLOG *MILD* ALGORI... Q6 SC Last administered on 07/26/17 12:38; Admin Dose 1 UNIT; Start 07/22/17 at 06:00 Acetaminophen (Tylenol Tab) 650 mg Q4 PRN GTB ELEVATED TEMPERATURE Last administered on 07/26/17 08:57; Admin Dose 650 MG; Start 07/22/17 at 05:30 Ascorbic Acid (Vitamin C) 500 mg Q8 GTB Last administered on 07/26/17 12:50; Admin Dose 500 MG; Start 07/22/17 at 06:00 Baclofen (Lioresal) 20 mg TID GTB Last administered on 07/26/17 12:48; Admin Dose 20 MG; Start 07/22/17 at 09:00 Bisacodyl (Dulcolax Supp) 10 mg DAILY PRN [place] CONSTIPATION; Start 07/22/17 at 05:30 Docusate Sodium (Colace Liquid Cup) 100 mg BID GTB Last administered on 08:57; Admin Dose 100 MG; Start 07/22/17 at 09:00 Epoetin Andrey (Epogen (Esrd)) 15,000 units MoWeFr@17 SC Last administered on 12:50; Admin Dose 15,000 UNITS; Start 07/24/17 at 17:00 Magnesium Hydroxide (Milk Of Mag) 30 ml Q24H PRN PO CONSTIPATION; Start at 05:30 Magnesium Oxide (Mag-Ox 400) 800 mg DAILY GTB Last administered on 07/26/17 08:58; Admin Dose 800 MG; Start 07/22/17 at 09:00 Metoclopramide HCl (Reglan) 10 mg BID GTB Last administered on 07/26/17 08:58 ; Admin Dose 10 MG; Start 07/22/17 at 09:00 Mineral Oil (Fleet Mineral Oil Enema) 133 ml DAILY PRN [place] CONSTIPATION; Start 07/22/17 at 05:30 Multivitamins Therapeutic (Theragran) 1 tab DAILY GTB Last administered on 08:58; Admin Dose 1 TAB; Start 07/22/17 at 09:00 Sucralfate (Carafate) 1 gm DAILY GTB Last administered on 07/26/17 08:58; Admin Dose 1 GM; Start 07/22/17 at 09:00 Tramadol HCl (Ultram) 100 mg DAILY GTB Last administered on 07/26/17 08:59; Admin Dose 100 MG; Start 07/22/17 at 09:00 Acetaminophen/ Hydrocodone Bitart ([place] (5/325)) 1 tab Q6H PRN GTB PAIN LEVEL 7-10; Start 07/22/17 at 05:30 Pantoprazole (Protonix Iv) 40 mg BID@06,18 IV Last administered on 07/26/17 05:39; Admin Dose 40 MG; Start 07/22/17 at 18:00 Miscellaneous Information 1 ea NOTE XX ; Start 07/22/17 at 15:00 Glucose (Glutose) 15 gm Q15M PRN PO DECREASED GLUCOSE; Start 07/22/17 at 15:00 Glucose (Glutose) 22.5 gm Q15M PRN PO DECREASED GLUCOSE; Start 07/22/17 at 15: 00 Dextrose (D50w Syringe) 25 ml Q15M PRN IV DECREASED GLUCOSE; Start 07/22/17 at 15:00 Dextrose (D50w Syringe) 50 ml Q15M PRN IV DECREASED GLUCOSE; Start 07/22/17 at 15:00 Glucagon (Glucagen) 1 mg Q15M PRN IM DECREASED GLUCOSE; Start 07/22/17 at 15: 00 Glucose 15 gm 15 gm Q15M PRN BUCCAL DECREASED GLUCOSE; Start 07/22/17 at 15:00 Ferric Sodium Gluconate Complex/ Sodium Chloride (Ferrlecit/NS) 110 ml @ 110 mls/hr Q24H IVPB Last administered on 07/26/17 12:50; Admin Dose 110 MLS/HR; Start 07/23/17 at 12:30; Stop 07/27/17 at 13:29 Insulin Human NPH (Humulin N) 6 unit Q6 SC Last administered on 07/26/17 12: 37; Admin Dose 6 UNIT; Start 07/23/17 at 18:00 Linezolid (Zyvox) 600 mg BID PO Last administered on 07/26/17 08:58; Admin Dose 600 MG; Start 07/23/17 at 21:00 Fluconazole (Diflucan) 100 mg DAILY PO Last administered on 07/26/17 08:58; Admin Dose 100 MG; Start 07/25/17 at 09:00 Insulin Glargine (Lantus) 25 unit DAILY@20 SC Last administered on 07/25/17 20:07; Admin Dose 25 UNIT; Start 07/24/17 at 20:00 ALIZA ANDRADE Jul 26, 2017 14:36
--- NOTE | 2017-07-26 17:12 | CONS ---
Date/Time of Note Date/Time of Note DATE: 07/26/17 TIME: 17:11 Assessment/Plan Assessment/Plan Additional Assessment/Plan 1. Acute kidney injury due to ATN From sepsis + prerenal azotemia 2. Sepsis due to UTI 3. Chronic resp failure s/p Tracheostomy on ventilator 4/ Anemia of chronic disease 5/ HTN Plan : Cr normal now continue Tube feeding as ordered IV meropenem- renally dose all abx no need for renal US at this time will follow up Consultation Date/Type/Reason Admit Date/Time Jul 21, 2017 at 23:24 Initial Consult Date 07/22/17 Type of Consultation: NEPHROLOGY Referring Provider: CASEY ALEXANDER MD 24 HR Interval Summary Free Text/Dictation Cr and electrolytes normal today, BP stable Exam/Review of Systems Vital Signs Vitals Vital Signs Date Time Temp Pulse Resp B/P Pulse Ox O2 Delivery O2 Flow Rate FiO2 07/26/17 16:33 99 07/26/17 15:43 98.0 19 102/67 98 07/26/17 12:34 30 Intake and Output 07/25/17 07/25/17 07/26/17 15:00 23:00 07:00 Intake Total 1610 ml 550 ml Output Total 1800 ml 600 ml Balance -190 ml -50 ml Exam Constitutional: non-verbal, + tracheostomy on ventilator Neck: non-tender, supple Respiratory: crackles/rales, diminished breath sounds Cardiovascular: nl pulses, regular rate and rhythm Gastrointestinal: non-tender, soft, +G tube Musculoskeletal: dry skin, pedal pulses 2+ Extremities: normal pulses Results Result Diagram: 07/26/17 0602 07/26/17 0602 Results 24 hrs Laboratory Tests Test 07/25/17 17:20 07/25/17 20:03 07/25/17 23:48 07/26/17 01:00 Bedside Glucose 172 141 179 Stool Occult Blood NEGATIVE Test 07/26/17 05:41 07/26/17 06:02 07/26/17 12:34 07/26/17 16:41 Bedside Glucose 153 177 151 White Blood Count 6.1 Red Blood Count 3.07 L Hemoglobin 7.8 L Hematocrit 25.8 L Mean Corpuscular Volume 84.0 Mean Corpuscular Hemoglobin 25.4 L Mean Corpuscular Hemoglobin Concent 30.2 L Red Cell Distribution Width 19.5 H Platelet Count 288 Mean Platelet Volume 10.8 H Neutrophils % 75.9 Lymphocytes % 14.7 L Monocytes % 5.3 Eosinophils % 2.5 Basophils % 0.3 Nucleated Red Blood Cells % 0.0 Neutrophils # 4.6 Lymphocytes # 0.9 Monocytes # 0.3 Eosinophils # 0.2 Basophils # 0.0 Nucleated Red Blood Cells # 0.0 Sodium Level 139 Potassium Level 4.1 Chloride Level 106 Carbon Dioxide Level 24 Anion Gap 13 Blood Urea Nitrogen 22 H Creatinine 0.72 Glucose Level 141 Calcium Level 8.7 Medications Medications Current Medications Miscellaneous Information (Pending [facility] Order For Wound Care) This patient stern... PRN PRN XX WOUND CARE; Start 07/22/17 at 03:30 Insulin Aspart (Novolog Insulin Pen) NOVOLOG *MILD* ALGORI... Q6 SC Last administered on 07/26/17 16:44; Admin Dose 1 UNIT; Start 07/22/17 at 06:00 Acetaminophen (Tylenol Tab) 650 mg Q4 PRN GTB ELEVATED TEMPERATURE Last administered on 07/26/17 08:57; Admin Dose 650 MG; Start 07/22/17 at 05:30 Ascorbic Acid (Vitamin C) 500 mg Q8 GTB Last administered on 07/26/17 12:50; Admin Dose 500 MG; Start 07/22/17 at 06:00 Baclofen (Lioresal) 20 mg TID GTB Last administered on 07/26/17 12:48; Admin Dose 20 MG; Start 07/22/17 at 09:00 Bisacodyl (Dulcolax Supp) 10 mg DAILY PRN [place] CONSTIPATION; Start 07/22/17 at 05:30 Docusate Sodium (Colace Liquid Cup) 100 mg BID GTB Last administered on 08:57; Admin Dose 100 MG; Start 07/22/17 at 09:00 Epoetin Andrey (Epogen (Esrd)) 15,000 units MoWeFr@17 SC Last administered on 12:50; Admin Dose 15,000 UNITS; Start 07/24/17 at 17:00 Magnesium Hydroxide (Milk Of Mag) 30 ml Q24H PRN PO CONSTIPATION; Start at 05:30 Magnesium Oxide (Mag-Ox 400) 800 mg DAILY GTB Last administered on 07/26/17 08:58; Admin Dose 800 MG; Start 07/22/17 at 09:00 Metoclopramide HCl (Reglan) 10 mg BID GTB Last administered on 07/26/17 08:58 ; Admin Dose 10 MG; Start 07/22/17 at 09:00 Mineral Oil (Fleet Mineral Oil Enema) 133 ml DAILY PRN MD CONSTIPATION; Start 07/22/17 at 05:30 Multivitamins Therapeutic (Theragran) 1 tab DAILY GTB Last administered on 08:58; Admin Dose 1 TAB; Start 07/22/17 at 09:00 Sucralfate (Carafate) 1 gm DAILY GTB Last administered on 07/26/17 08:58; Admin Dose 1 GM; Start 07/22/17 at 09:00 Tramadol HCl (Ultram) 100 mg DAILY GTB Last administered on 07/26/17 08:59; Admin Dose 100 MG; Start 07/22/17 at 09:00 Acetaminophen/ Hydrocodone Bitart ([place] (5/325)) 1 tab Q6H PRN GTB PAIN LEVEL 7-10; Start 07/22/17 at 05:30 Pantoprazole (Protonix Iv) 40 mg BID@06,18 IV Last administered on 07/26/17 16:43; Admin Dose 40 MG; Start 07/22/17 at 18:00 Miscellaneous Information 1 ea NOTE XX ; Start 07/22/17 at 15:00 Glucose (Glutose) 15 gm Q15M PRN PO DECREASED GLUCOSE; Start 07/22/17 at 15:00 Glucose (Glutose) 22.5 gm Q15M PRN PO DECREASED GLUCOSE; Start 07/22/17 at 15: 00 Dextrose (D50w Syringe) 25 ml Q15M PRN IV DECREASED GLUCOSE; Start 07/22/17 at 15:00 Dextrose (D50w Syringe) 50 ml Q15M PRN IV DECREASED GLUCOSE; Start 07/22/17 at 15:00 Glucagon (Glucagen) 1 mg Q15M PRN IM DECREASED GLUCOSE; Start 07/22/17 at 15: 00 Glucose 15 gm 15 gm Q15M PRN BUCCAL DECREASED GLUCOSE; Start 07/22/17 at 15:00 Ferric Sodium Gluconate Complex/ Sodium Chloride (Ferrlecit/NS) 110 ml @ 110 mls/hr Q24H IVPB Last administered on 07/26/17 12:50; Admin Dose 110 MLS/HR; Start 07/23/17 at 12:30; Stop 07/27/17 at 13:29 Insulin Human NPH (Humulin N) 6 unit Q6 SC Last administered on 07/26/17 16: 45; Admin Dose 6 UNIT; Start 07/23/17 at 18:00 Linezolid (Zyvox) 600 mg BID PO Last administered on 07/26/17 08:58; Admin Dose 600 MG; Start 07/23/17 at 21:00 Fluconazole (Diflucan) 100 mg DAILY PO Last administered on 07/26/17 08:58; Admin Dose 100 MG; Start 07/25/17 at 09:00 Insulin Glargine 25 unit 25 unit DAILY@20 SC Last administered on 07/25/17 20 :07; Admin Dose 25 UNIT; Start 07/24/17 at 20:00 Colistimethate Sodium/Sodium Chloride (Coly-Mycin/NS) 100 ml @ 200 mls/hr Q12 IVPB ; Start 07/26/17 at 21:00 Sodium Hypochlorite (Dakin'S (Dilute 1/40%)) 1 applic BID IRR ; Start 07/26/17 at 21:00 LIZETTE ALEX MD Jul 26, 2017 17:12
[2017-07-26] MEDS: LANSOPRAZOLE 30 MG CAP PO SCH (18:00)
--- NOTE | 2017-07-26 18:53 | CONS ---
Date/Time of Note Date/Time of Note DATE: 07/26/17 TIME: 18:52 Assessment/Plan Assessment/Plan Additional Assessment/Plan Impression: 1. anemia, probably from chronic disease 2. microcytosis, r/o iron deficiency 3. sepsis with UTI and PNA 4. dysphagia 5. Multiple decubitus ulcers Recommendations: 1. continue tube feeds 2. routine PEG care 3. send stool for occult blood to distinguish between anemia from GIB vs chronic disease 4. add protonix bid dosing until occult blood result. If occult negative, can dc protonix 5. treat UTI and PNA per primary 6. await iron panel result, if low, pls replete with iv iron for faster repletion 7. stool report negative Consultation Date/Type/Reason Admit Date/Time Jul 21, 2017 at 23:24 Initial Consult Date 07/22/17 Type of Consultation: NEPHROLOGY Referring Provider: CASEY ALEAXNDER MD 24 HR Interval Summary Free Text/Dictation Discussed with the staff no GI bleeding, patient has decubitus ulcer Subjective hx not possible: pt non-verbal Exam/Review of Systems Vital Signs Vitals Vital Signs Date Time Temp Pulse Resp B/P Pulse Ox O2 Delivery O2 Flow Rate FiO2 07/26/17 16:33 99 07/26/17 15:43 98.0 19 102/67 98 07/26/17 12:34 30 Intake and Output 07/25/17 07/25/17 07/26/17 15:00 23:00 07:00 Intake Total 1610 ml 550 ml Output Total 1800 ml 600 ml Balance -190 ml -50 ml Exam Constitutional: alert, oriented, well developed Psych: nl mood/affect, no complaints Head: atraumatic, normocephalic Eyes: EOMI, PERRL, nl conjunctiva, nl lids, nl sclera ENMT: nl external ears & nose, nl lips & teeth, nl nasal mucosa & septum Neck: non-tender, supple Respiratory: clear to auscultation, normal air movement Cardiovascular: nl pulses, regular rate and rhythm Gastrointestinal: nl liver, spleen, non-tender, soft Musculoskeletal: nl extremities to inspection, nl gait and stance Extremities: normal pulses Neurological: ORCHID GROWER II-XII intact, nl mental status, nl speech, nl strength Skin: nl turgor, No rash or lesions Lymph: nl lymph nodes Results Result Diagram: 07/26/17 0602 07/26/17 0602 Results 24 hrs Laboratory Tests Test 07/25/17 20:03 07/25/17 23:48 07/26/17 01:00 07/26/17 05:41 Bedside Glucose 141 179 153 Stool Occult Blood NEGATIVE Test 07/26/17 06:02 07/26/17 12:34 07/26/17 16:41 White Blood Count 6.1 Red Blood Count 3.07 L Hemoglobin 7.8 L Hematocrit 25.8 L Mean Corpuscular Volume 84.0 Mean Corpuscular Hemoglobin 25.4 L Mean Corpuscular Hemoglobin Concent 30.2 L Red Cell Distribution Width 19.5 H Platelet Count 288 Mean Platelet Volume 10.8 H Neutrophils % 75.9 Lymphocytes % 14.7 L Monocytes % 5.3 Eosinophils % 2.5 Basophils % 0.3 Nucleated Red Blood Cells % 0.0 Neutrophils # 4.6 Lymphocytes # 0.9 Monocytes # 0.3 Eosinophils # 0.2 Basophils # 0.0 Nucleated Red Blood Cells # 0.0 Sodium Level 139 Potassium Level 4.1 Chloride Level 106 Carbon Dioxide Level 24 Anion Gap 13 Blood Urea Nitrogen 22 H Creatinine 0.72 Glucose Level 141 Calcium Level 8.7 Bedside Glucose 177 151 Medications Medications Current Medications Miscellaneous Information (Pending [facility] Order For Wound Care) This patient stern... PRN PRN XX WOUND CARE; Start 07/22/17 at 03:30 Insulin Aspart (Novolog Insulin Pen) NOVOLOG *MILD* ALGORI... Q6 SC Last administered on 07/26/17 16:44; Admin Dose 1 UNIT; Start 07/22/17 at 06:00 Acetaminophen (Tylenol Tab) 650 mg Q4 PRN GTB ELEVATED TEMPERATURE Last administered on 07/26/17 08:57; Admin Dose 650 MG; Start 07/22/17 at 05:30 Ascorbic Acid (Vitamin C) 500 mg Q8 GTB Last administered on 07/26/17 12:50; Admin Dose 500 MG; Start 07/22/17 at 06:00 Baclofen (Lioresal) 20 mg TID GTB Last administered on 07/26/17 12:48; Admin Dose 20 MG; Start 07/22/17 at 09:00 Bisacodyl (Dulcolax Supp) 10 mg DAILY PRN [place] CONSTIPATION; Start 07/22/17 at 05:30 Docusate Sodium (Colace Liquid Cup) 100 mg BID GTB Last administered on 08:57; Admin Dose 100 MG; Start 07/22/17 at 09:00 Epoetin Andrey (Epogen (Esrd)) 15,000 units MoWeFr@17 SC Last administered on 12:50; Admin Dose 15,000 UNITS; Start 07/24/17 at 17:00 Magnesium Hydroxide (Milk Of Mag) 30 ml Q24H PRN PO CONSTIPATION; Start at 05:30 Magnesium Oxide (Mag-Ox 400) 800 mg DAILY GTB Last administered on 07/26/17 08:58; Admin Dose 800 MG; Start 07/22/17 at 09:00 Metoclopramide HCl (Reglan) 10 mg BID GTB Last administered on 07/26/17 08:58 ; Admin Dose 10 MG; Start 07/22/17 at 09:00 Mineral Oil (Fleet Mineral Oil Enema) 133 ml DAILY PRN [place] CONSTIPATION; Start 07/22/17 at 05:30 Multivitamins Therapeutic (Theragran) 1 tab DAILY GTB Last administered on 08:58; Admin Dose 1 TAB; Start 07/22/17 at 09:00 Sucralfate (Carafate) 1 gm DAILY GTB Last administered on 07/26/17 08:58; Admin Dose 1 GM; Start 07/22/17 at 09:00 Tramadol HCl (Ultram) 100 mg DAILY GTB Last administered on 07/26/17 08:59; Admin Dose 100 MG; Start 07/22/17 at 09:00 Acetaminophen/ Hydrocodone Bitart ([place] (5/325)) 1 tab Q6H PRN GTB PAIN LEVEL 7-10; Start 07/22/17 at 05:30 Miscellaneous Information 1 ea NOTE XX ; Start 07/22/17 at 15:00 Glucose (Glutose) 15 gm Q15M PRN PO DECREASED GLUCOSE; Start 07/22/17 at 15:00 Glucose (Glutose) 22.5 gm Q15M PRN PO DECREASED GLUCOSE; Start 07/22/17 at 15: 00 Dextrose (D50w Syringe) 25 ml Q15M PRN IV DECREASED GLUCOSE; Start 07/22/17 at 15:00 Dextrose (D50w Syringe) 50 ml Q15M PRN IV DECREASED GLUCOSE; Start 07/22/17 at 15:00 Glucagon (Glucagen) 1 mg Q15M PRN IM DECREASED GLUCOSE; Start 07/22/17 at 15: 00 Glucose 15 gm 15 gm Q15M PRN BUCCAL DECREASED GLUCOSE; Start 07/22/17 at 15:00 Ferric Sodium Gluconate Complex/ Sodium Chloride (Ferrlecit/NS) 110 ml @ 110 mls/hr Q24H IVPB Last administered on 07/26/17 12:50; Admin Dose 110 MLS/HR; Start 07/23/17 at 12:30; Stop 07/27/17 at 13:29 Insulin Human NPH (Humulin N) 6 unit Q6 SC Last administered on 07/26/17 16: 45; Admin Dose 6 UNIT; Start 07/23/17 at 18:00 Linezolid (Zyvox) 600 mg BID PO Last administered on 07/26/17 08:58; Admin Dose 600 MG; Start 07/23/17 at 21:00 Fluconazole (Diflucan) 100 mg DAILY PO Last administered on 07/26/17 08:58; Admin Dose 100 MG; Start 07/25/17 at 09:00 Insulin Glargine 25 unit 25 unit DAILY@20 SC Last administered on 07/25/17 20 :07; Admin Dose 25 UNIT; Start 07/24/17 at 20:00 Colistimethate Sodium/Sodium Chloride (Coly-Mycin/NS) 100 ml @ 200 mls/hr Q12 IVPB ; Start 07/26/17 at 21:00 Sodium Hypochlorite (Dakin'S (Dilute 1/40%)) 1 applic BID IRR ; Start 07/26/17 at 21:00 Lansoprazole (Prevacid) 30 mg BID@06,18 PO ; Start 07/26/17 at 18:00 HELENA NASH MD Jul 26, 2017 18:53
[2017-07-26] MEDS: COLISTIMETHATE 75 MG in SOD CHLORIDE 0.9% 100 ML IVPB SCH (21:02)
[2017-07-26] MEDS: SODIUM HYPOCHLORITE 1/40% 1L IRRIG IRR SCH (21:09)
[2017-07-26] MEDS: INSULIN GLARGINE [LANtus] 3 ML PEN SC SCH (21:28)
--- NOTE | 2017-07-26 22:42 | PN ---
Date/Time of Note Date/Time of Note DATE: 07/26/17 TIME: 22:42 Assessment/Plan Lines/Catheters IV Catheter Type (from Nrs): PICC Line Joel in Place (from Nrs): Yes Assessment/Plan Chief Complaint/Hosp Course 1. Multiple wound: 2/2 immobility; cultures noted -debridement -local care -frequent turning and off-loading -low air loss mattress -vitamin c -short term zinc -optimize nutrition 2. Hypochromic anemia: no acute bleed noted -monitor -transfuse as needed 3. UTI: -abx per sensitivity -frequent bladder emptying/cath care 4. VDRF -pulm toilet -respiratory treatments Thank you. Patient seen and examined in collaboration with Dr. Hi High. Problems: Subjective 24 Hr Interval Summary No acute events overnight. Nonverbal indicators of pain not present. Appears comfortable ton vent. No excessive wound drainage. No fevers, congested cough, v /d, change in tele rhythm. Exam/Review of Systems Vital Signs Vitals Vital Signs Date Time Temp Pulse Resp B/P Pulse Ox O2 Delivery O2 Flow Rate FiO2 07/30/17 00:40 105 10 100 30 07/30/17 00:00 98.3 107/64 Intake and Output 07/29/17 07/29/17 07/30/17 15:00 23:00 07:00 Intake Total 100 ml 950 ml Output Total 1200 ml Balance 100 ml -250 ml Exam Free Text/Dictation Constitutional: alert, other (nonverbal) Head: atraumatic, normocephalic Eyes: nl lids, nl sclera, No icteric ENMT: mucosa pink and moist, nl nasal mucosa & septum Neck: non-tender, other (trach), supple Respiratory: other (vent), No labored breathing Cardiovascular: regular rate and rhythm Gastrointestinal: non-tender, other (peg; umbilical hernia, rotund), soft Extremities: normal pulses, other (stiffness) Neurological: other (withdraws from painful stimuli) Skin: other (multiple wounds: min drainage, min odor) Results Result Diagram: 07/29/17 0554 07/29/17 0554 SANFORD RODRIGUEZ NP Jul 26, 2017 22:42
[2017-07-27] VITALS (25 sets, daily range): BP systolic 94–107; BP diastolic 54–64; PULSE 88–111; RESP 10–20
[2017-07-27] MEDS: INSULIN ASPART [NOVOLOG] 3 ML PEN SC SCH ×4 (01:29→18:32)
[2017-07-27] MEDS: NPH, HUMAN INSULIN ISOPHANE 3ML VIAL SC SCH ×4 (01:29→18:33)
[2017-07-27] MEDS: LANSOPRAZOLE 30 MG CAP PO SCH ×2 (06:35→18:30)
[2017-07-27] MEDS: ASCORBIC ACID 500 MG TAB GTB SCH ×3 (06:35→21:39)
[2017-07-27] MEDS: DOCUSATE SODIUM 10 MG/ML (10ML CUP) GTB SCH ×2 (09:58→21:40)
[2017-07-27] MEDS: COLISTIMETHATE 75 MG in SOD CHLORIDE 0.9% 100 ML IVPB SCH ×2 (09:58→21:46)
[2017-07-27] MEDS: ZYVOX 600 MG TAB PO SCH ×2 (09:58→21:39)
[2017-07-27] MEDS: METOCLOPRAMIDE 10 MG TAB GTB SCH ×2 (09:58→21:39)
[2017-07-27] MEDS: MAGNESIUM OXIDE 400 MG TAB GTB SCH (09:58)
[2017-07-27] MEDS: SUCRALFATE 1 GM TAB GTB SCH (09:58)
[2017-07-27] MEDS: BACLOFEN 10 MG TAB GTB SCH ×3 (09:58→21:40)
[2017-07-27] MEDS: FLUCONAZOLE 100 MG TAB PO SCH (09:58)
[2017-07-27] MEDS: MULTIVITAMINS THERAPEUTIC TAB GTB SCH (09:58)
[2017-07-27] MEDS: SODIUM HYPOCHLORITE 1/40% 1L IRRIG IRR SCH ×2 (09:59→21:40)
[2017-07-27] MEDS: traMADol 50 MG TAB GTB SCH (10:16)
--- NOTE | 2017-07-27 10:50 | CONS ---
Date/Time of Note Date/Time of Note DATE: 07/27/17 TIME: 10:50 Assessment/Plan Assessment/Plan Additional Assessment/Plan Impression: 1. anemia, probably from chronic disease 2. microcytosis, r/o iron deficiency 3. sepsis with UTI and PNA 4. dysphagia 5. Multiple decubitus ulcers 6. Vent dependent respiratory failure 7. Encephalopathy Recommendations: 1. continue tube feeds 2. routine PEG care 3. send stool for occult blood to distinguish between anemia from GIB vs chronic disease 4. add protonix bid dosing until occult blood result. If occult negative, can dc protonix 5. treat UTI and PNA per primary 6. await iron panel result, if low, pls replete with iv iron for faster repletion 7. stool report negative 8. B12 folic acid reticulocyte count and ferritin level Consultation Date/Type/Reason Admit Date/Time Jul 21, 2017 at 23:24 Initial Consult Date 07/22/17 Type of Consultation: NEPHROLOGY Referring Provider: CASEY ALEXANDER MD 24 HR Interval Summary Subjective hx not possible: pt non-verbal Exam/Review of Systems Vital Signs Vitals Vital Signs Date Time Temp Pulse Resp B/P Pulse Ox O2 Delivery O2 Flow Rate FiO2 07/27/17 08:44 110 07/27/17 07:30 19 100 30 07/27/17 07:29 99.8 106/60 Intake and Output 07/26/17 07/26/17 07/27/17 15:00 23:00 07:00 Intake Total 1260 ml 710 ml Output Total 550 ml 700 ml Balance 710 ml 10 ml Exam Constitutional: alert, oriented, well developed Psych: nl mood/affect, no complaints Head: atraumatic, normocephalic Eyes: EOMI, PERRL, nl conjunctiva, nl lids, nl sclera ENMT: nl external ears & nose, nl lips & teeth, nl nasal mucosa & septum Neck: non-tender, supple Respiratory: clear to auscultation, normal air movement Cardiovascular: nl pulses, regular rate and rhythm Gastrointestinal: nl liver, spleen, non-tender, soft Musculoskeletal: nl extremities to inspection, nl gait and stance Extremities: normal pulses Neurological: CARE TECH II-XII intact, nl mental status, nl speech, nl strength Skin: nl turgor, No rash or lesions Lymph: nl lymph nodes Results Result Diagram: 07/26/17 0602 07/26/17 0602 Results 24 hrs Laboratory Tests Test 07/26/17 12:34 07/26/17 16:41 07/26/17 21:04 07/27/17 01:22 Bedside Glucose 177 151 150 152 Test 07/27/17 06:37 Bedside Glucose 123 Medications Medications Current Medications Miscellaneous Information (Pending [facility] Order For Wound Care) This patient stern... PRN PRN XX WOUND CARE; Start 07/22/17 at 03:30 Insulin Aspart (Novolog Insulin Pen) NOVOLOG *MILD* ALGORI... Q6 SC Last administered on 07/27/17 01:29; Admin Dose 1 UNIT; Start 07/22/17 at 06:00 Acetaminophen (Tylenol Tab) 650 mg Q4 PRN GTB ELEVATED TEMPERATURE Last administered on 07/26/17 08:57; Admin Dose 650 MG; Start 07/22/17 at 05:30 Ascorbic Acid (Vitamin C) 500 mg Q8 GTB Last administered on 07/27/17 06:35; Admin Dose 500 MG; Start 07/22/17 at 06:00 Baclofen (Lioresal) 20 mg TID GTB Last administered on 07/27/17 09:58; Admin Dose 20 MG; Start 07/22/17 at 09:00 Bisacodyl (Dulcolax Supp) 10 mg DAILY PRN [place] CONSTIPATION; Start 07/22/17 at 05:30 Docusate Sodium (Colace Liquid Cup) 100 mg BID GTB Last administered on 09:58; Admin Dose 100 MG; Start 07/22/17 at 09:00 Epoetin Andrey (Epogen (Esrd)) 15,000 units MoWeFr@17 SC Last administered on 12:50; Admin Dose 15,000 UNITS; Start 07/24/17 at 17:00 Magnesium Hydroxide (Milk Of Mag) 30 ml Q24H PRN PO CONSTIPATION; Start at 05:30 Magnesium Oxide (Mag-Ox 400) 800 mg DAILY GTB Last administered on 07/27/17 09:58; Admin Dose 800 MG; Start 07/22/17 at 09:00 Metoclopramide HCl (Reglan) 10 mg BID GTB Last administered on 07/27/17 09:58 ; Admin Dose 10 MG; Start 07/22/17 at 09:00 Mineral Oil (Fleet Mineral Oil Enema) 133 ml DAILY PRN [place] CONSTIPATION; Start 07/22/17 at 05:30 Multivitamins Therapeutic (Theragran) 1 tab DAILY GTB Last administered on 09:58; Admin Dose 1 TAB; Start 07/22/17 at 09:00 Sucralfate (Carafate) 1 gm DAILY GTB Last administered on 07/27/17 09:58; Admin Dose 1 GM; Start 07/22/17 at 09:00 Tramadol HCl (Ultram) 100 mg DAILY GTB Last administered on 07/27/17 10:16; Admin Dose 100 MG; Start 07/22/17 at 09:00 Acetaminophen/ Hydrocodone Bitart ([place] (5/325)) 1 tab Q6H PRN GTB PAIN LEVEL 7-10; Start 07/22/17 at 05:30 Miscellaneous Information 1 ea NOTE XX ; Start 07/22/17 at 15:00 Glucose (Glutose) 15 gm Q15M PRN PO DECREASED GLUCOSE; Start 07/22/17 at 15:00 Glucose (Glutose) 22.5 gm Q15M PRN PO DECREASED GLUCOSE; Start 07/22/17 at 15: 00 Dextrose (D50w Syringe) 25 ml Q15M PRN IV DECREASED GLUCOSE; Start 07/22/17 at 15:00 Dextrose (D50w Syringe) 50 ml Q15M PRN IV DECREASED GLUCOSE; Start 07/22/17 at 15:00 Glucagon (Glucagen) 1 mg Q15M PRN IM DECREASED GLUCOSE; Start 07/22/17 at 15: 00 Glucose 15 gm 15 gm Q15M PRN BUCCAL DECREASED GLUCOSE; Start 07/22/17 at 15:00 Ferric Sodium Gluconate Complex/ Sodium Chloride (Ferrlecit/NS) 110 ml @ 110 mls/hr Q24H IVPB Last administered on 07/26/17 12:50; Admin Dose 110 MLS/HR; Start 07/23/17 at 12:30; Stop 07/27/17 at 13:29 Insulin Human NPH (Humulin N) 6 unit Q6 SC Last administered on 07/27/17 06: 51; Admin Dose 6 UNIT; Start 07/23/17 at 18:00 Linezolid (Zyvox) 600 mg BID PO Last administered on 07/27/17 09:58; Admin Dose 600 MG; Start 07/23/17 at 21:00 Fluconazole (Diflucan) 100 mg DAILY PO Last administered on 07/27/17 09:58; Admin Dose 100 MG; Start 07/25/17 at 09:00 Insulin Glargine 25 unit 25 unit DAILY@20 SC Last administered on 07/26/17 21 :28; Admin Dose 25 UNIT; Start 07/24/17 at 20:00 Colistimethate Sodium/Sodium Chloride (Coly-Mycin/NS) 100 ml @ 200 mls/hr Q12 IVPB Last administered on 07/27/17 09:58; Admin Dose 200 MLS/HR; Start 07/26 at 21:00 Sodium Hypochlorite (Dakin'S (Dilute 1/40%)) 1 applic BID IRR Last administered on 07/27/17 09:59; Admin Dose 1 APPLIC; Start 07/26/17 at 21:00 Lansoprazole (Prevacid) 30 mg BID@06,18 PO Last administered on 07/27/17 06: 35; Admin Dose 30 MG; Start 07/26/17 at 18:00 HELENA NASH MD Jul 27, 2017 10:50
--- NOTE | 2017-07-27 12:00 | CONS ---
Date/Time of Note Date/Time of Note DATE: 07/27/17 TIME: 11:58 Assessment/Plan Assessment/Plan Additional Assessment/Plan Ventilator setting; AC of 20, tidal volume 500, PEEP of 5, 30% FiO2. Assessment and recommendations; 1. Patient admitted with severe anemia as well as UTI and sepsis with multiple organisms isolated from decubitus wound as well. Patient currently on appropriate broad-spectrum antibiotic coverage. 2. Chronic respiratory failure due to advanced dementia. Continue current supportive care. Consultation Date/Type/Reason Admit Date/Time Jul 21, 2017 at 23:24 Initial Consult Date 07/22/17 Type of Consultation: Pulmonary Referring Provider: CASEY ALEXANDER MD 24 HR Interval Summary Free Text/Dictation Patient's condition has remained stable. Patient has remained hemodynamically stable. Remains essentially unresponsive due to advanced dementia. Also remains chronically ventilator dependent. General exam; middle-aged woman, on ventilator via tracheostomy, unresponsive, currently in no distress. Exam/Review of Systems Vital Signs Vitals Vital Signs Date Time Temp Pulse Resp B/P Pulse Ox O2 Delivery O2 Flow Rate FiO2 07/27/17 11:12 99.0 112 107/64 97 07/27/17 07:30 19 30 Intake and Output 07/26/17 07/26/17 07/27/17 15:00 23:00 07:00 Intake Total 1260 ml 710 ml Output Total 550 ml 700 ml Balance 710 ml 10 ml Exam HEENT exam; supple neck, no JVD. No lymphadenopathy. Midline trachea. No thyromegaly. Tracheostomy in place. Pupils are midsize and reactive to light. Chest exam; clear to auscultation. S1-S2 audible, no murmurs. Regular rhythm. Abdomen exam; soft, nondistended. No organomegaly. Bowel sounds audible. G- tube in place. Extremity exam; no peripheral edema. ELECTRICAL ESTIMATOR exam; patient remains unresponsive. Results Result Diagram: 07/26/17 0602 07/26/17 0602 Results 24 hrs Laboratory Tests Test 07/26/17 12:34 07/26/17 16:41 07/26/17 21:04 07/27/17 01:22 Bedside Glucose 177 151 150 152 Test 07/27/17 06:37 Bedside Glucose 123 Medications Medications Current Medications Misc[facility] This patient stern... PRN PRN XX WOUND CARE; Start 07/22/17 at 03:30 Insulin Aspart (Novolog Insulin Pen) NOVOLOG *MILD* ALGORI... Q6 SC Last administered on 07/27/17 01:29; Admin Dose 1 UNIT; Start 07/22/17 at 06:00 Acetaminophen (Tylenol Tab) 650 mg Q4 PRN GTB ELEVATED TEMPERATURE Last administered on 07/26/17 08:57; Admin Dose 650 MG; Start 07/22/17 at 05:30 Ascorbic Acid (Vitamin C) 500 mg Q8 GTB Last administered on 07/27/17 06:35; Admin Dose 500 MG; Start 07/22/17 at 06:00 Baclofen (Lioresal) 20 mg TID GTB Last administered on 07/27/17 09:58; Admin Dose 20 MG; Start 07/22/17 at 09:00 Bisacodyl (Dulcolax Supp) 10 mg DAILY PRN [place] CONSTIPATION; Start 07/22/17 at 05:30 Docusate Sodium (Colace Liquid Cup) 100 mg BID GTB Last administered on 09:58; Admin Dose 100 MG; Start 07/22/17 at 09:00 Epoetin Andrey (Epogen (Esrd)) 15,000 units MoWeFr@17 SC Last administered on 12:50; Admin Dose 15,000 UNITS; Start 07/24/17 at 17:00 Magnesium Hydroxide (Milk Of Mag) 30 ml Q24H PRN PO CONSTIPATION; Start at 05:30 Magnesium Oxide (Mag-Ox 400) 800 mg DAILY GTB Last administered on 07/27/17 09:58; Admin Dose 800 MG; Start 07/22/17 at 09:00 Metoclopramide HCl (Reglan) 10 mg BID GTB Last administered on 07/27/17 09:58 ; Admin Dose 10 MG; Start 07/22/17 at 09:00 Mineral Oil (Fleet Mineral Oil Enema) 133 ml DAILY PRN [place] CONSTIPATION; Start 07/22/17 at 05:30 Multivitamins Therapeutic (Theragran) 1 tab DAILY GTB Last administered on 09:58; Admin Dose 1 TAB; Start 07/22/17 at 09:00 Sucralfate (Carafate) 1 gm DAILY GTB Last administered on 07/27/17 09:58; Admin Dose 1 GM; Start 07/22/17 at 09:00 Tramadol HCl (Ultram) 100 mg DAILY GTB Last administered on 07/27/17 10:16; Admin Dose 100 MG; Start 07/22/17 at 09:00 Acetaminophen/ Hydrocodone Bitart ([place] (5/325)) 1 tab Q6H PRN GTB PAIN LEVEL 7-10; Start 07/22/17 at 05:30 Miscellaneous Information 1 ea NOTE XX ; Start 07/22/17 at 15:00 Glucose (Glutose) 15 gm Q15M PRN PO DECREASED GLUCOSE; Start 07/22/17 at 15:00 Glucose (Glutose) 22.5 gm Q15M PRN PO DECREASED GLUCOSE; Start 07/22/17 at 15: 00 Dextrose (D50w Syringe) 25 ml Q15M PRN IV DECREASED GLUCOSE; Start 07/22/17 at 15:00 Dextrose (D50w Syringe) 50 ml Q15M PRN IV DECREASED GLUCOSE; Start 07/22/17 at 15:00 Glucagon (Glucagen) 1 mg Q15M PRN IM DECREASED GLUCOSE; Start 07/22/17 at 15: 00 Glucose 15 gm 15 gm Q15M PRN BUCCAL DECREASED GLUCOSE; Start 07/22/17 at 15:00 Ferric Sodium Gluconate Complex/ Sodium Chloride (Ferrlecit/NS) 110 ml @ 110 mls/hr Q24H IVPB Last administered on 07/26/17 12:50; Admin Dose 110 MLS/HR; Start 07/23/17 at 12:30; Stop 07/27/17 at 13:29 Insulin Human NPH (Humulin N) 6 unit Q6 SC Last administered on 07/27/17 06: 51; Admin Dose 6 UNIT; Start 07/23/17 at 18:00 Linezolid (Zyvox) 600 mg BID PO Last administered on 07/27/17 09:58; Admin Dose 600 MG; Start 07/23/17 at 21:00 Fluconazole (Diflucan) 100 mg DAILY PO Last administered on 07/27/17 09:58; Admin Dose 100 MG; Start 07/25/17 at 09:00 Insulin Glargine 25 unit 25 unit DAILY@20 SC Last administered on 07/26/17 21 :28; Admin Dose 25 UNIT; Start 07/24/17 at 20:00 Colistimethate Sodium/Sodium Chloride (Coly-Mycin/NS) 100 ml @ 200 mls/hr Q12 IVPB Last administered on 07/27/17 09:58; Admin Dose 200 MLS/HR; Start 07/26 at 21:00 Sodium Hypochlorite (Dakin'S (Dilute 1/40%)) 1 applic BID IRR Last administered on 07/27/17 09:59; Admin Dose 1 APPLIC; Start 07/26/17 at 21:00 Lansoprazole (Prevacid) 30 mg BID@06,18 PO Last administered on 07/27/17 06: 35; Admin Dose 30 MG; Start 07/26/17 at 18:00 ARYAN COLLADO Jul 27, 2017 12:00
[2017-07-27] MEDS: SOD FERRIC GLUC COMPLX 125 MG in SOD CHLORIDE 0.9% 100 ML IVPB SCH (12:30)
--- NOTE | 2017-07-27 13:29 | CONS ---
Date/Time of Note Date/Time of Note DATE: 07/27/17 TIME: 13:13 Assessment/Plan Assessment/Plan Chief Complaint/Hosp Course 1. Multiple wound: 2/2 immobility; cultures noted -debridement -local care -frequent turning and off-loading -low air loss mattress -vitamin c -short term zinc -optimize nutrition 2. Hypochromic anemia: no acute bleed noted -monitor -transfuse as needed 3. UTI: -abx per sensitivity -frequent bladder emptying/cath care 4. VDRF -pulm toilet -respiratory treatments Thank you. Patient seen and examined in collaboration with Dr. Hi High. Problems: Consultation Date/Type/Reason Admit Date/Time Jul 21, 2017 at 23:24 Date of Consultation: Jul 26, 2017 Type of Consultation: Surgical Reason for Consultation wounds Referring Provider: FELX DENNISON NP Hx of Present Illness Paige Pollard is a 56 yo woman with significant history of VDRF and immobility who was sent from [facility] for having a low hemoglobin. There were no reports of no bleed, hematochezia, melena, hematemesis. No reports of fevers, congested cough, diarrhea, vomiting. She was also noted to have multiple wounds. General surgery was asked to consult. Constitutional: No diaphoresis Eyes: No discharge ENT: No congestion Respiratory: No cough, No wheezing Cardiovascular: No edema Gastrointestinal: No blood, No vomiting Genitourinary: No dysuria, No hematuria Musculoskeletal: restricted range of motion Skin: No bruising, No erythema, No pruritis Psychological: other (flat) Past Medical History VDRF encephalopathy dysphagia htn Medical History: other (chronic resp failure s/p tracheostomy on ventilator ) Past Surgical History trach peg Past Surgical Hx: other (Tracheostomy, G tube placement ) Family History Significant Family History: no pertinent family hx Social History Alcohol Use: none Smoking Status: Never smoker Drug Use: none Exam/Review of Systems Vital Signs Vitals Vital Signs Date Time Temp Pulse Resp B/P Pulse Ox O2 Delivery O2 Flow Rate FiO2 07/27/17 12:28 111 07/27/17 11:12 99.0 107/64 97 07/27/17 07:30 19 30 Intake and Output 07/26/17 07/26/17 07/27/17 15:00 23:00 07:00 Intake Total 1260 ml 710 ml Output Total 550 ml 700 ml Balance 710 ml 10 ml Exam Constitutional: alert, other (nonverbal) Head: atraumatic, normocephalic Eyes: nl lids, nl sclera, No icteric ENMT: mucosa pink and moist, nl nasal mucosa & septum Neck: non-tender, other (trach), supple Respiratory: other (vent), No labored breathing Cardiovascular: regular rate and rhythm Gastrointestinal: non-tender, other (peg; umbilical hernia, rotund), soft Extremities: normal pulses, other (stiffness) Neurological: other (withdraws from painful stimuli) Skin: other (mulitple wounnds: min drainage, min odor) Results Result Diagram: 07/26/17 0602 07/26/17 06 Results 24 hrs Laboratory Tests Test 07/26/17 16:41 07/26/17 21:04 07/27/17 01:22 07/27/17 06:37 Bedside Glucose 151 150 152 123 Test 07/27/17 13:05 Bedside Glucose 171 Medications Medications Current Medications Miscellaneous Information (Pending [facility] Order For Wound Care) This patient stern... PRN PRN XX WOUND CARE; Start 07/22/17 at 03:30 Insulin Aspart (Novolog Insulin Pen) NOVOLOG *MILD* ALGORI... Q6 SC Last administered on 07/27/17 01:29; Admin Dose 1 UNIT; Start 07/22/17 at 06:00 Acetaminophen (Tylenol Tab) 650 mg Q4 PRN GTB ELEVATED TEMPERATURE Last administered on 07/26/17 08:57; Admin Dose 650 MG; Start 07/22/17 at 05:30 Ascorbic Acid (Vitamin C) 500 mg Q8 GTB Last administered on 07/27/17 06:35; Admin Dose 500 MG; Start 07/22/17 at 06:00 Baclofen (Lioresal) 20 mg TID GTB Last administered on 07/27/17 09:58; Admin Dose 20 MG; Start 07/22/17 at 09:00 Bisacodyl (Dulcolax Supp) 10 mg DAILY PRN [place] CONSTIPATION; Start 07/22/17 at 05:30 Docusate Sodium (Colace Liquid Cup) 100 mg BID GTB Last administered on 09:58; Admin Dose 100 MG; Start 07/22/17 at 09:00 Epoetin Nadrey (Epogen (Esrd)) 15,000 units MoWeFr@17 SC Last administered on 12:50; Admin Dose 15,000 UNITS; Start 07/24/17 at 17:00 Magnesium Hydroxide (Milk Of Mag) 30 ml Q24H PRN PO CONSTIPATION; Start at 05:30 Magnesium Oxide (Mag-Ox 400) 800 mg DAILY GTB Last administered on 07/27/17 09:58; Admin Dose 800 MG; Start 07/22/17 at 09:00 Metoclopramide HCl (Reglan) 10 mg BID GTB Last administered on 07/27/17 09:58 ; Admin Dose 10 MG; Start 07/22/17 at 09:00 Mineral Oil (Fleet Mineral Oil Enema) 133 ml DAILY PRN [place] CONSTIPATION; Start 07/22/17 at 05:30 Multivitamins Therapeutic (Theragran) 1 tab DAILY GTB Last administered on 09:58; Admin Dose 1 TAB; Start 07/22/17 at 09:00 Sucralfate (Carafate) 1 gm DAILY GTB Last administered on 07/27/17 09:58; Admin Dose 1 GM; Start 07/22/17 at 09:00 Tramadol HCl (Ultram) 100 mg DAILY GTB Last administered on 07/27/17 10:16; Admin Dose 100 MG; Start 07/22/17 at 09:00 Acetaminophen/ Hydrocodone Bitart ([place] (5/325)) 1 tab Q6H PRN GTB PAIN LEVEL 7-10; Start 07/22/17 at 05:30 Miscellaneous Information 1 ea NOTE XX ; Start 07/22/17 at 15:00 Glucose (Glutose) 15 gm Q15M PRN PO DECREASED GLUCOSE; Start 07/22/17 at 15:00 Glucose (Glutose) 22.5 gm Q15M PRN PO DECREASED GLUCOSE; Start 07/22/17 at 15: 00 Dextrose (D50w Syringe) 25 ml Q15M PRN IV DECREASED GLUCOSE; Start 07/22/17 at 15:00 Dextrose (D50w Syringe) 50 ml Q15M PRN IV DECREASED GLUCOSE; Start 07/22/17 at 15:00 Glucagon (Glucagen) 1 mg Q15M PRN IM DECREASED GLUCOSE; Start 07/22/17 at 15: 00 Glucose 15 gm 15 gm Q15M PRN BUCCAL DECREASED GLUCOSE; Start 07/22/17 at 15:00 Ferric Sodium Gluconate Complex/ Sodium Chloride (Ferrlecit/NS) 110 ml @ 110 mls/hr Q24H IVPB Last administered on 07/26/17 12:50; Admin Dose 110 MLS/HR; Start 07/23/17 at 12:30; Stop 07/27/17 at 13:29 Insulin Human NPH (Humulin N) 6 unit Q6 SC Last administered on 07/27/17 06: 51; Admin Dose 6 UNIT; Start 07/23/17 at 18:00 Linezolid (Zyvox) 600 mg BID PO Last administered on 07/27/17 09:58; Admin Dose 600 MG; Start 07/23/17 at 21:00 Fluconazole (Diflucan) 100 mg DAILY PO Last administered on 07/27/17 09:58; Admin Dose 100 MG; Start 07/25/17 at 09:00 Insulin Glargine 25 unit 25 unit DAILY@20 SC Last administered on 07/26/17 21 :28; Admin Dose 25 UNIT; Start 07/24/17 at 20:00 Colistimethate Sodium/Sodium Chloride (Coly-Mycin/NS) 100 ml @ 200 mls/hr Q12 IVPB Last administered on 07/27/17 09:58; Admin Dose 200 MLS/HR; Start 07/26 at 21:00 Sodium Hypochlorite (Dakin'S (Dilute 1/40%)) 1 applic BID IRR Last administered on 07/27/17 09:59; Admin Dose 1 APPLIC; Start 07/26/17 at 21:00 Lansoprazole (Prevacid) 30 mg BID@06,18 PO Last administered on 07/27/17 06: 35; Admin Dose 30 MG; Start 07/26/17 at 18:00 SANFORD RODRIGUEZ NP Jul 27, 2017 13:27
--- NOTE | 2017-07-27 13:45 | PN ---
Date/Time of Note Date/Time of Note DATE: 07/27/17 TIME: 13:37 Assessment/Plan Lines/Catheters IV Catheter Type (from Nrs): PICC Line Joel in Place (from Nrs): Yes Assessment/Plan Chief Complaint/Hosp Course 1. Multiple wound: 2/2 immobility; cultures noted -debridement -local care -frequent turning and off-loading -low air loss mattress -vitamin c -short term zinc -optimize nutrition 2. Hypochromic anemia: no acute bleed noted -monitor -transfuse as needed 3. UTI: -abx per sensitivity -frequent bladder emptying/cath care 4. VDRF -pulm toilet -respiratory treatments Thank you. Patient seen and examined in collaboration with Dr. Hi High. Problems: Subjective 24 Hr Interval Summary No acute change overnight. Appears comfortable on vent. Non verbal indicators of pain not present. No fevers, congested cough, change in tele rhythm, v/d. Exam/Review of Systems Vital Signs Vitals Vital Signs Date Time Temp Pulse Resp B/P Pulse Ox O2 Delivery O2 Flow Rate FiO2 07/27/17 12:28 111 07/27/17 11:12 99.0 107/64 97 07/27/17 07:30 19 30 Intake and Output 07/26/17 07/26/17 07/27/17 15:00 23:00 07:00 Intake Total 1260 ml 710 ml Output Total 550 ml 700 ml Balance 710 ml 10 ml Exam Free Text/Dictation Constitutional: alert, other (nonverbal) Head: atraumatic, normocephalic Eyes: nl lids, nl sclera, No icteric ENMT: mucosa pink and moist, nl nasal mucosa & septum Neck: non-tender, other (trach), supple Respiratory: other (vent), No labored breathing Cardiovascular: regular rate and rhythm Gastrointestinal: non-tender, other (peg; umbilical hernia, rotund), soft Extremities: normal pulses, other (stiffness) Neurological: other (withdraws from painful stimuli) Skin: other (multiple wounds: min drainage, min odor) Results Result Diagram: 07/26/1760107/26/17601 SANFORD RODRIGUEZ NP Jul 27, 2017 13:45
--- NOTE | 2017-07-27 14:27 | CONS ---
Date/Time of Note Date/Time of Note DATE: 07/27/17 TIME: 14:24 Consult Date/Type/Reason Admit Date/Time Jul 21, 2017 at 23:24 Initial Consult Date 07/22/17 Type of Consultation: ID Ordering Provider: FLEX DENNISON NP Objective Vital Signs Date Time Temp Pulse Resp B/P Pulse Ox O2 Delivery O2 Flow Rate FiO2 07/27/17 12:28 111 07/27/17 11:12 99.0 107/64 97 07/27/17 07:30 19 30 Intake and Output 07/26/17 07/26/17 07/27/17 15:00 23:00 07:00 Intake Total 1260 ml 710 ml Output Total 550 ml 700 ml Balance 710 ml 10 ml Results/Medications Result Diagram: 07/26/17 0602 07/26/17 0602 Results 24 hrs Laboratory Tests Test 07/26/17 16:41 07/26/17 21:04 07/27/17 01:22 07/27/17 06:37 Bedside Glucose 151 150 152 123 Test 07/27/17 13:05 Bedside Glucose 171 Medications Current Medications Miscellaneous Information (Pending [facility] Order For Wound Care) This patient stern... PRN PRN XX WOUND CARE; Start 07/22/17 at 03:30 Insulin Aspart (Novolog Insulin Pen) NOVOLOG *MILD* ALGORI... Q6 SC Last administered on 07/27/17 12:00; Admin Dose 1 UNIT; Start 07/22/17 at 06:00 Acetaminophen (Tylenol Tab) 650 mg Q4 PRN GTB ELEVATED TEMPERATURE Last administered on 07/26/17 08:57; Admin Dose 650 MG; Start 07/22/17 at 05:30 Ascorbic Acid (Vitamin C) 500 mg Q8 GTB Last administered on 07/27/17 13:08; Admin Dose 500 MG; Start 07/22/17 at 06:00 Baclofen (Lioresal) 20 mg TID GTB Last administered on 07/27/17 13:07; Admin Dose 20 MG; Start 07/22/17 at 09:00 Bisacodyl (Dulcolax Supp) 10 mg DAILY PRN [place] CONSTIPATION; Start 07/22/17 at 05:30 Docusate Sodium (Colace Liquid Cup) 100 mg BID GTB Last administered on 09:58; Admin Dose 100 MG; Start 07/22/17 at 09:00 Epoetin Andrey (Epogen (Esrd)) 15,000 units MoWeFr@17 SC Last administered on 12:50; Admin Dose 15,000 UNITS; Start 07/24/17 at 17:00 Magnesium Hydroxide (Milk Of Mag) 30 ml Q24H PRN PO CONSTIPATION; Start at 05:30 Magnesium Oxide (Mag-Ox 400) 800 mg DAILY GTB Last administered on 07/27/17 09:58; Admin Dose 800 MG; Start 07/22/17 at 09:00 Metoclopramide HCl (Reglan) 10 mg BID GTB Last administered on 07/27/17 09:58 ; Admin Dose 10 MG; Start 07/22/17 at 09:00 Mineral Oil (Fleet Mineral Oil Enema) 133 ml DAILY PRN [place] CONSTIPATION; Start 07/22/17 at 05:30 Multivitamins Therapeutic (Theragran) 1 tab DAILY GTB Last administered on 09:58; Admin Dose 1 TAB; Start 07/22/17 at 09:00 Sucralfate (Carafate) 1 gm DAILY GTB Last administered on 07/27/17 09:58; Admin Dose 1 GM; Start 07/22/17 at 09:00 Tramadol HCl (Ultram) 100 mg DAILY GTB Last administered on 07/27/17 10:16; Admin Dose 100 MG; Start 07/22/17 at 09:00 Acetaminophen/ Hydrocodone Bitart ([place] (5/325)) 1 tab Q6H PRN GTB PAIN LEVEL 7-10; Start 07/22/17 at 05:30 Miscellaneous Information 1 ea NOTE XX ; Start 07/22/17 at 15:00 Glucose (Glutose) 15 gm Q15M PRN PO DECREASED GLUCOSE; Start 07/22/17 at 15:00 Glucose (Glutose) 22.5 gm Q15M PRN PO DECREASED GLUCOSE; Start 07/22/17 at 15: 00 Dextrose (D50w Syringe) 25 ml Q15M PRN IV DECREASED GLUCOSE; Start 07/22/17 at 15:00 Dextrose (D50w Syringe) 50 ml Q15M PRN IV DECREASED GLUCOSE; Start 07/22/17 at 15:00 Glucagon (Glucagen) 1 mg Q15M PRN IM DECREASED GLUCOSE; Start 07/22/17 at 15: 00 Glucose (Glutose) 15 gm Q15M PRN BUCCAL DECREASED GLUCOSE; Start 07/22/17 at 15:00 Insulin Human NPH (Humulin N) 6 unit Q6 SC Last administered on 07/27/17 12: 00; Admin Dose 6 UNIT; Start 07/23/17 at 18:00 Linezolid (Zyvox) 600 mg BID PO Last administered on 07/27/17 09:58; Admin Dose 600 MG; Start 07/23/17 at 21:00 Fluconazole (Diflucan) 100 mg DAILY PO Last administered on 07/27/17 09:58; Admin Dose 100 MG; Start 07/25/17 at 09:00 Insulin Glargine 25 unit 25 unit DAILY@20 SC Last administered on 07/26/17 21 :28; Admin Dose 25 UNIT; Start 07/24/17 at 20:00 Colistimethate Sodium/Sodium Chloride (Coly-Mycin/NS) 100 ml @ 200 mls/hr Q12 IVPB Last administered on 07/27/17 09:58; Admin Dose 200 MLS/HR; Start 07/26 at 21:00 Sodium Hypochlorite (Dakin'S (Dilute 1/40%)) 1 applic BID IRR Last administered on 07/27/17 09:59; Admin Dose 1 APPLIC; Start 07/26/17 at 21:00 Lansoprazole (Prevacid) 30 mg BID@06,18 PO Last administered on 07/27/17 06: 35; Admin Dose 30 MG; Start 07/26/17 at 18:00 Lidocaine/ Epinephrine (Xylocaine 1%/ Epi (Pf)) 30 ml ONCE ONCE INJ ; Start at 08:00; Stop 07/28/17 at 08:01 Silver Nitrate (Silver Nitrate Swabs) 10 stick ONCE ONCE TOP ; Start 07/28/17 at 08:00; Stop 07/28/17 at 08:01 Assessment/Plan Chief Complaint/Hosp Course No acute changes, noncommunicative, looks comfortable, no fevers Microbiology: Wound culture growing Acinetobacter, VRE, Pilar albicans, MRSA , coag negative staph species. Blood culture grew staph species, urine culture growing gram-negative rods Indwelling: Trach/PEG/PICC/Joel Abx: Colistin, Diflucan, Zyvox ALL: PCN, Levaquin, Vanco, Cephalosporins GENERAL: The patient is a nonverbal female who is awake, noncommunicative, no acute distress. SKIN: Without generalized rash. HEENT: Within normal limits. NECK: Supple. Lymph nodes nonpalpable. She has a tracheostomy in place. SKIN: She has a PICC line on the left side in the superior vena cava. CHEST: Decreased breath sounds at the bases. HEART: Without murmur or gallop. ABDOMEN: Soft, nontender. G-tube in place. + BT EXTREMITIES: Without cyanosis, clubbing or edema. Assessment: 1. Sepsis 2. UTI==> GNR 2. Ischial decub==> pending final cx 3. Acute on chronic anemia==> s/p bld tx, h/h stable 4. ARF=> nephrology follows 5. VDRF 6. Chronic encephalopathy 7. Bacteremia, possibly contaminant vs 2 to wounds Plan: Clinically unchanged, continue abx, f/u repeat bld cx, local wound care, vent per pulmonary, surgical rec-s dw staff Problems: FLEX DENNISON NP Jul 27, 2017 14:27
--- NOTE | 2017-07-27 17:15 | PN ---
Date/Time of Note Date/Time of Note DATE: 07/27/17 TIME: 17:14 Assessment/Plan Lines/Catheters IV C[facility]ter Type (from [facility]): PICC Line Urinary Cath still in place: Yes Assessment/Plan Assessment/Plan -Multiple decubitus ulcer, continue wound care per wound care consult. - per surgery - possibly wound debridement tomorrow -Sepsis secondary to UTI . Continue antibiotics per ID . Dr. Zavaleta is following in infection disease consultation. -Anemia, rule out GI bleed. Stool for OB is negative. Dr. Ruiz is following in gastroenterology consultation. -Advanced multiple sclerosis -Ventilator dependent respiratory failure. Dr. Blackwell is following in pulmonology consultation. -Dysphagia with PEG -Acute on chronic encephalopathy. Further recommendations based on clinical course. Plan of care discussed with Dr. Taylor. Subjective 24 Hr Interval Summary Constitutional: requiring IVF, requiring O2 Exam/Review of Systems Vital Signs Vitals Vital Signs Date Time Temp Pulse Resp B/P Pulse Ox O2 Delivery O2 Flow Rate FiO2 07/27/17 16:40 110 16 100 30 07/27/17 15:14 99.2 103/64 Intake and Output 07/26/17 07/26/17 07/27/17 15:00 23:00 07:00 Intake Total 1260 ml 710 ml Output Total 550 ml 700 ml Balance 710 ml 10 ml Exam Constitutional: non-verbal Neurological: unresponsive Results Result Diagram: 07/26/17 0602 07/26/17 0602 Results 24 hrs Laboratory Tests Test 07/26/17 21:04 07/27/17 01:22 07/27/17 06:37 07/27/17 13:05 Bedside Glucose 150 152 123 171 Medications Medications Current Medications Miscellaneous Information ([facility] This patient stern... PRN PRN XX WOUND CARE; Start 07/22/17 at 03:30 Insulin Aspart (Novolog Insulin Pen) NOVOLOG *MILD* ALGORI... Q6 SC Last administered on 07/27/17 12:00; Admin Dose 1 UNIT; Start 07/22/17 at 06:00 Acetaminophen (Tylenol Tab) 650 mg Q4 PRN GTB ELEVATED TEMPERATURE Last administered on 07/26/17 08:57; Admin Dose 650 MG; Start 07/22/17 at 05:30 Ascorbic Acid (Vitamin C) 500 mg Q8 GTB Last administered on 07/27/17 13:08; Admin Dose 500 MG; Start 07/22/17 at 06:00 Baclofen (Lioresal) 20 mg TID GTB Last administered on 07/27/17 13:07; Admin Dose 20 MG; Start 07/22/17 at 09:00 Bisacodyl (Dulcolax Supp) 10 mg DAILY PRN [place] CONSTIPATION; Start 07/22/17 at 05:30 Docusate Sodium (Colace Liquid Cup) 100 mg BID GTB Last administered on 09:58; Admin Dose 100 MG; Start 07/22/17 at 09:00 Epoetin Andrey (Epogen (Esrd)) 15,000 units MoWeFr@17 SC Last administered on 12:50; Admin Dose 15,000 UNITS; Start 07/24/17 at 17:00 Magnesium Hydroxide (Milk Of Mag) 30 ml Q24H PRN PO CONSTIPATION; Start at 05:30 Magnesium Oxide (Mag-Ox 400) 800 mg DAILY GTB Last administered on 07/27/17 09:58; Admin Dose 800 MG; Start 07/22/17 at 09:00 Metoclopramide HCl (Reglan) 10 mg BID GTB Last administered on 07/27/17 09:58 ; Admin Dose 10 MG; Start 07/22/17 at 09:00 Mineral Oil (Fleet Mineral Oil Enema) 133 ml DAILY PRN [place] CONSTIPATION; Start 07/22/17 at 05:30 Multivitamins Therapeutic (Theragran) 1 tab DAILY GTB Last administered on 09:58; Admin Dose 1 TAB; Start 07/22/17 at 09:00 Sucralfate (Carafate) 1 gm DAILY GTB Last administered on 07/27/17 09:58; Admin Dose 1 GM; Start 07/22/17 at 09:00 Tramadol HCl (Ultram) 100 mg DAILY GTB Last administered on 07/27/17 10:16; Admin Dose 100 MG; Start 07/22/17 at 09:00 Acetaminophen/ Hydrocodone Bitart ([place] (5/325)) 1 tab Q6H PRN GTB PAIN LEVEL 7-10; Start 07/22/17 at 05:30 Miscellaneous Information 1 ea NOTE XX ; Start 07/22/17 at 15:00 Glucose (Glutose) 15 gm Q15M PRN PO DECREASED GLUCOSE; Start 07/22/17 at 15:00 Glucose (Glutose) 22.5 gm Q15M PRN PO DECREASED GLUCOSE; Start 07/22/17 at 15: 00 Dextrose (D50w Syringe) 25 ml Q15M PRN IV DECREASED GLUCOSE; Start 07/22/17 at 15:00 Dextrose (D50w Syringe) 50 ml Q15M PRN IV DECREASED GLUCOSE; Start 07/22/17 at 15:00 Glucagon (Glucagen) 1 mg Q15M PRN IM DECREASED GLUCOSE; Start 07/22/17 at 15: 00 Glucose (Glutose) 15 gm Q15M PRN BUCCAL DECREASED GLUCOSE; Start 07/22/17 at 15:00 Insulin Human NPH (Humulin N) 6 unit Q6 SC Last administered on 07/27/17 12: 00; Admin Dose 6 UNIT; Start 07/23/17 at 18:00 Linezolid (Zyvox) 600 mg BID PO Last administered on 07/27/17 09:58; Admin Dose 600 MG; Start 07/23/17 at 21:00 Fluconazole (Diflucan) 100 mg DAILY PO Last administered on 07/27/17 09:58; Admin Dose 100 MG; Start 07/25/17 at 09:00 Insulin Glargine 25 unit 25 unit DAILY@20 SC Last administered on 07/26/17 21 :28; Admin Dose 25 UNIT; Start 07/24/17 at 20:00 Colistimethate Sodium/Sodium Chloride (Coly-Mycin/NS) 100 ml @ 200 mls/hr Q12 IVPB Last administered on 07/27/17 09:58; Admin Dose 200 MLS/HR; Start 07/26 at 21:00 Sodium Hypochlorite (Dakin'S (Dilute 1/40%)) 1 applic BID IRR Last administered on 07/27/17 09:59; Admin Dose 1 APPLIC; Start 07/26/17 at 21:00 Lansoprazole (Prevacid) 30 mg BID@06,18 PO Last administered on 07/27/17 06: 35; Admin Dose 30 MG; Start 07/26/17 at 18:00 Lidocaine/ Epinephrine (Xylocaine 1%/ Epi (Pf)) 30 ml ONCE ONCE INJ ; Start at 08:00; Stop 07/28/17 at 08:01 Silver Nitrate (Silver Nitrate Swabs) 10 stick ONCE ONCE TOP ; Start 07/28/17 at 08:00; Stop 07/28/17 at 08:01 KATE LANDAVERDE Jul 27, 2017 17:15
--- NOTE | 2017-07-27 17:23 | CONS ---
Date/Time of Note Date/Time of Note DATE: 07/27/17 TIME: 17:20 Assessment/Plan Assessment/Plan Additional Assessment/Plan 1. Acute kidney injury due to ATN From sepsis + prerenal azotemia 2. Sepsis due to UTI 3. Chronic resp failure s/p Tracheostomy on ventilator 4/ Anemia of chronic disease 5/ HTN 6. UTI with Urine cx growing Gram negative rods Plan : Cr normal now continue Tube feeding as ordered ID following abx as per ID, pt is growing gram negative rods on Urine cx, and wound cx growing teresita, MRSA, acinetobacter IV abx colistin- renally dose all abx finished IV iron today no need for renal US at this time will follow up Consultation Date/Type/Reason Admit Date/Time Jul 21, 2017 at 23:24 Initial Consult Date 07/22/17 Type of Consultation: NEPHROLOGY Referring Provider: FLEX DENNISON NP 24 HR Interval Summary Free Text/Dictation Cr normal yesterday, no labs today to review yet , BP stable Exam/Review of Systems Vital Signs Vitals Vital Signs Date Time Temp Pulse Resp B/P Pulse Ox O2 Delivery O2 Flow Rate FiO2 07/27/17 16:40 110 16 100 30 07/27/17 15:14 99.2 103/64 Intake and Output 07/26/17 07/26/17 07/27/17 15:00 23:00 07:00 Intake Total 1260 ml 710 ml Output Total 550 ml 700 ml Balance 710 ml 10 ml Exam Constitutional: non-verbal, + tracheostomy on ventilator Neck: non-tender, supple Respiratory: crackles/rales, diminished breath sounds Cardiovascular: nl pulses, regular rate and rhythm Gastrointestinal: non-tender, soft, +G tube Musculoskeletal: dry skin, pedal pulses 2+ Extremities: normal pulses Results Result Diagram: 07/26/17 0602 07/26/17 0602 Results 24 hrs Laboratory Tests Test 07/26/17 21:04 07/27/17 01:22 07/27/17 06:37 07/27/17 13:05 Bedside Glucose 150 152 123 171 Medications Medications Current Medications Miscellaneous Information (Pending [facility] Order For Wound Care) This patient stern... PRN PRN XX WOUND CARE; Start 07/22/17 at 03:30 Insulin Aspart (Novolog Insulin Pen) NOVOLOG *MILD* ALGORI... Q6 SC Last administered on 07/27/17 12:00; Admin Dose 1 UNIT; Start 07/22/17 at 06:00 Acetaminophen (Tylenol Tab) 650 mg Q4 PRN GTB ELEVATED TEMPERATURE Last administered on 07/26/17 08:57; Admin Dose 650 MG; Start 07/22/17 at 05:30 Ascorbic Acid (Vitamin C) 500 mg Q8 GTB Last administered on 07/27/17 13:08; Admin Dose 500 MG; Start 07/22/17 at 06:00 Baclofen (Lioresal) 20 mg TID GTB Last administered on 07/27/17 13:07; Admin Dose 20 MG; Start 07/22/17 at 09:00 Bisacodyl (Dulcolax Supp) [address] CONSTIPATION; Start 07/22/17 at 05:30 Docusate Sodium (Colace Liquid Cup) 100 mg BID GTB Last administered on 09:58; Admin Dose 100 MG; Start 07/22/17 at 09:00 Epoetin Andrey (Epogen (Esrd)) 15,000 units MoWeFr@17 SC Last administered on 12:50; Admin Dose 15,000 UNITS; Start 07/24/17 at 17:00 Magnesium Hydroxide (Milk Of Mag) 30 ml Q24H PRN PO CONSTIPATION; Start at 05:30 Magnesium Oxide (Mag-Ox 400) 800 mg DAILY GTB Last administered on 07/27/17 09:58; Admin Dose 800 MG; Start 07/22/17 at 09:00 Metoclopramide HCl (Reglan) 10 mg BID GTB Last administered on 07/27/17 09:58 ; Admin Dose 10 MG; Start 07/22/17 at 09:00 Mineral Oil (Fleet Mineral Oil Enema) [address] CONSTIPATION; Start 07/22/17 at 05:30 Multivitamins Therapeutic (Theragran) 1 tab DAILY GTB Last administered on 09:58; Admin Dose 1 TAB; Start 07/22/17 at 09:00 Sucralfate (Carafate) 1 gm DAILY GTB Last administered on 07/27/17 09:58; Admin Dose 1 GM; Start 07/22/17 at 09:00 Tramadol HCl (Ultram) 100 mg DAILY GTB Last administered on 07/27/17 10:16; Admin Dose 100 MG; Start 07/22/17 at 09:00 Acetaminophen/ Hydrocodone Bitart ([place] (5/325)) 1 tab Q6H PRN GTB PAIN LEVEL 7-10; Start 07/22/17 at 05:30 Miscellaneous Information 1 ea NOTE XX ; Start 07/22/17 at 15:00 Glucose (Glutose) 15 gm Q15M PRN PO DECREASED GLUCOSE; Start 07/22/17 at 15:00 Glucose (Glutose) 22.5 gm Q15M PRN PO DECREASED GLUCOSE; Start 07/22/17 at 15: 00 Dextrose (D50w Syringe) 25 ml Q15M PRN IV DECREASED GLUCOSE; Start 07/22/17 at 15:00 Dextrose (D50w Syringe) 50 ml Q15M PRN IV DECREASED GLUCOSE; Start 07/22/17 at 15:00 Glucagon (Glucagen) 1 mg Q15M PRN IM DECREASED GLUCOSE; Start 07/22/17 at 15: 00 Glucose (Glutose) 15 gm Q15M PRN BUCCAL DECREASED GLUCOSE; Start 07/22/17 at 15:00 Insulin Human NPH (Humulin N) 6 unit Q6 SC Last administered on 07/27/17 12: 00; Admin Dose 6 UNIT; Start 07/23/17 at 18:00 Linezolid (Zyvox) 600 mg BID PO Last administered on 07/27/17 09:58; Admin Dose 600 MG; Start 07/23/17 at 21:00 Fluconazole (Diflucan) 100 mg DAILY PO Last administered on 07/27/17 09:58; Admin Dose 100 MG; Start 07/25/17 at 09:00 Insulin Glargine 25 unit 25 unit DAILY@20 SC Last administered on 07/26/17 21 :28; Admin Dose 25 UNIT; Start 07/24/17 at 20:00 Colistimethate Sodium/Sodium Chloride (Coly-Mycin/NS) 100 ml @ 200 mls/hr Q12 IVPB Last administered on 07/27/17 09:58; Admin Dose 200 MLS/HR; Start 07/26 at 21:00 Sodium Hypochlorite (Dakin'S (Dilute 1/40%)) 1 applic BID IRR Last administered on 07/27/17 09:59; Admin Dose 1 APPLIC; Start 07/26/17 at 21:00 Lansoprazole (Prevacid) 30 mg BID@06,18 PO Last administered on 07/27/17 06: 35; Admin Dose 30 MG; Start 07/26/17 at 18:00 Lidocaine/ Epinephrine (Xylocaine 1%/ Epi (Pf)) 30 ml ONCE ONCE INJ ; Start at 08:00; Stop 07/28/17 at 08:01 Silver Nitrate (Silver Nitrate Swabs) 10 stick ONCE ONCE TOP ; Start 07/28/17 at 08:00; Stop 07/28/17 at 08:01 LIZETTE ALEX MD Jul 27, 2017 17:23
[2017-07-27] MEDS: INSULIN GLARGINE [LANtus] 3 ML PEN SC SCH (21:45)
[2017-07-28] VITALS (23 sets, daily range): BP systolic 90–126; BP diastolic 51–70; PULSE 82–105; RESP 10–90
[2017-07-28] MEDS: NPH, HUMAN INSULIN ISOPHANE 3ML VIAL SC SCH ×4 (00:18→18:33)
[2017-07-28] MEDS: INSULIN ASPART [NOVOLOG] 3 ML PEN SC SCH ×4 (00:18→18:32)
[2017-07-28] MEDS: ASCORBIC ACID 500 MG TAB GTB SCH ×3 (06:09→22:44)
[2017-07-28] MEDS: LANSOPRAZOLE 30 MG CAP PO SCH ×2 (06:09→18:29)
[2017-07-28] MEDS ORDERED: LIDOCAINE 1%/EPI 30 ML INJ INJ ONE (08:00)
[2017-07-28] MEDS ORDERED: SILVER NITRATE SWAB TOP ONE (08:00)
[2017-07-28 08:29] LABS: RETICULOCYTE COUNT % 2.6 % (0.5-1.5)
[2017-07-28] MEDS: DOCUSATE SODIUM 10 MG/ML (10ML CUP) GTB SCH ×2 (09:04→22:43)
[2017-07-28] MEDS: COLISTIMETHATE 75 MG in SOD CHLORIDE 0.9% 100 ML IVPB SCH ×2 (09:04→22:43)
[2017-07-28] MEDS: ACETAMINOPHEN 325 MG TAB GTB PRN (09:05)
[2017-07-28] MEDS: traMADol 50 MG TAB GTB SCH (09:06)
[2017-07-28] MEDS: METOCLOPRAMIDE 10 MG TAB GTB SCH ×2 (09:06→22:45)
[2017-07-28] MEDS: MULTIVITAMINS THERAPEUTIC TAB GTB SCH (09:06)
[2017-07-28] MEDS: ZYVOX 600 MG TAB PO SCH ×2 (09:06→22:44)
[2017-07-28] MEDS: BACLOFEN 10 MG TAB GTB SCH ×3 (09:06→22:44)
[2017-07-28] MEDS: FLUCONAZOLE 100 MG TAB PO SCH (09:06)
[2017-07-28] MEDS: MAGNESIUM OXIDE 400 MG TAB GTB SCH (09:06)
[2017-07-28] MEDS: SUCRALFATE 1 GM TAB GTB SCH (09:07)
[2017-07-28] MEDS: SODIUM HYPOCHLORITE 1/40% 1L IRRIG IRR SCH ×2 (09:07→22:45)
[2017-07-28 10:20] LABS: FOLATE > 20.0 ng/ml (2.8-20.0)
--- NOTE | 2017-07-28 11:30 | CONS ---
Date/Time of Note Date/Time of Note DATE: 07/28/17 TIME: 11:28 Assessment/Plan Assessment/Plan Additional Assessment/Plan Ventilator setting; AC of 20, tidal volume 500, PEEP of 5, 30% FiO2. Assessment and recommendations; 1. Patient admitted for UTI with sepsis as well as decubitus wound growing multiple organisms, patient currently on appropriate antibiotic regimen. 2. Chronic respiratory failure due to advanced anoxic brain injury. Continue current supportive care. Consultation Date/Type/Reason Admit Date/Time Jul 21, 2017 at 23:24 Initial Consult Date 07/22/17 Type of Consultation: Pulmonary Referring Provider: FLEX DENNISON NP 24 HR Interval Summary Free Text/Dictation Patient's condition is stable. Remains unresponsive to any commands. Has remained hemodynamically stable. General exam; middle-aged woman, on ventilator via tracheostomy, unresponsive, currently in no distress. Exam/Review of Systems Vital Signs Vitals Vital Signs Date Time Temp Pulse Resp B/P Pulse Ox O2 Delivery O2 Flow Rate FiO2 07/28/17 10:40 105 10 100 30 07/28/17 07:45 102.3 101/61 Intake and Output 07/27/17 07/27/17 07/28/17 15:00 23:00 07:00 Intake Total 887 ml Output Total 700 ml Balance 187 ml Exam HEENT exam; supple neck, no JVD. No lymphadenopathy. Midline trachea. No thyromegaly. Tracheostomy in place. Patient has fair dentition. Chest exam; clear to auscultation. S1-S2 audible, no murmurs. Regular rhythm. Abdomen exam; soft, no organomegaly. Bowel sounds audible. Extremity examination; no peripheral edema. ROUTE [employer]URNER exam; patient remains unresponsive but awake. Results Result Diagram: 07/26/17 0602 07/26/17 0602 Results 24 hrs Laboratory Tests Test 07/27/17 13:05 07/27/17 18:25 07/27/17 21:41 07/28/17 00:16 Bedside Glucose 171 142 158 163 Test 07/28/17 06:11 07/28/17 07:56 Bedside Glucose 151 Absolute Reticulocyte Count 0.077 Percent Reticulocyte Count 2.6 H Ferritin Pending Vitamin B12 Level 873 Folate > 20.0 H Medications Medications Current Medications Miscellaneous Information (Pending [facility] Order For Wound Care) This patient stern... PRN PRN XX WOUND CARE; Start 07/22/17 at 03:30 Insulin Aspart (Novolog Insulin Pen) NOVOLOG *MILD* ALGORI... Q6 SC Last administered on 07/28/17 06:14; Admin Dose 1 UNIT; Start 07/22/17 at 06:00 Acetaminophen (Tylenol Tab) 650 mg Q4 PRN GTB ELEVATED TEMPERATURE Last administered on 07/28/17 09:05; Admin Dose 650 MG; Start 07/22/17 at 05:30 Ascorbic Acid (Vitamin C) 500 mg Q8 GTB Last administered on 07/28/17 06:09; Admin Dose 500 MG; Start 07/22/17 at 06:00 Baclofen (Lioresal) 20 mg TID GTB Last administered on 07/28/17 09:06; Admin Dose 20 MG; Start 07/22/17 at 09:00 Bisacodyl (Dulcolax Supp) 10 mg DAILY PRN [place] CONSTIPATION; Start 07/22/17 at 05:30 Docusate Sodium (Colace Liquid Cup) 100 mg BID GTB Last administered on 09:04; Admin Dose 100 MG; Start 07/22/17 at 09:00 Epoetin Andrey (Epogen (Esrd)) 15,000 units MoWeFr@17 SC Last administered on 12:50; Admin Dose 15,000 UNITS; Start 07/24/17 at 17:00 Magnesium Hydroxide (Milk Of Mag) 30 ml Q24H PRN PO CONSTIPATION; Start at 05:30 Magnesium Oxide (Mag-Ox 400) 800 mg DAILY GTB Last administered on 07/28/17 09:06; Admin Dose 800 MG; Start 07/22/17 at 09:00 Metoclopramide HCl (Reglan) 10 mg BID GTB Last administered on 07/28/17 09:06 ; Admin Dose 10 MG; Start 07/22/17 at 09:00 Mineral Oil (Fleet Mineral Oil Enema) 133 ml DAILY PRN [place] CONSTIPATION; Start 07/22/17 at 05:30 Multivitamins Therapeutic (Theragran) 1 tab DAILY GTB Last administered on 09:06; Admin Dose 1 TAB; Start 07/22/17 at 09:00 Sucralfate (Carafate) 1 gm DAILY GTB Last administered on 07/28/17 09:07; Admin Dose 1 GM; Start 07/22/17 at 09:00 Tramadol HCl (Ultram) 100 mg DAILY GTB Last administered on 07/28/17 09:06; Admin Dose 100 MG; Start 07/22/17 at 09:00 Acetaminophen/ Hydrocodone Bitart ([place] (5/325)) 1 tab Q6H PRN GTB PAIN LEVEL 7-10; Start 07/22/17 at 05:30 Miscellaneous Information 1 ea NOTE XX ; Start 07/22/17 at 15:00 Glucose (Glutose) 15 gm Q15M PRN PO DECREASED GLUCOSE; Start 07/22/17 at 15:00 Glucose (Glutose) 22.5 gm Q15M PRN PO DECREASED GLUCOSE; Start 07/22/17 at 15: 00 Dextrose (D50w Syringe) 25 ml Q15M PRN IV DECREASED GLUCOSE; Start 07/22/17 at 15:00 Dextrose (D50w Syringe) 50 ml Q15M PRN IV DECREASED GLUCOSE; Start 07/22/17 at 15:00 Glucagon (Glucagen) 1 mg Q15M PRN IM DECREASED GLUCOSE; Start 07/22/17 at 15: 00 Glucose (Glutose) 15 gm Q15M PRN BUCCAL DECREASED GLUCOSE; Start 07/22/17 at 15:00 Insulin Human NPH (Humulin N) 6 unit Q6 SC Last administered on 07/28/17 06: 14; Admin Dose 6 UNIT; Start 07/23/17 at 18:00 Linezolid (Zyvox) 600 mg BID PO Last administered on 07/28/17 09:06; Admin Dose 600 MG; Start 07/23/17 at 21:00 Fluconazole (Diflucan) 100 mg DAILY PO Last administered on 07/28/17 09:06; Admin Dose 100 MG; Start 07/25/17 at 09:00 Insulin Glargine 25 unit 25 unit DAILY@20 SC Last administered on 07/27/17 21 :45; Admin Dose 25 UNIT; Start 07/24/17 at 20:00 Colistimethate Sodium/Sodium Chloride (Coly-Mycin/NS) 100 ml @ 200 mls/hr Q12 IVPB Last administered on 07/28/17 09:04; Admin Dose 200 MLS/HR; Start 07/26 at 21:00 Sodium Hypochlorite (Dakin'S (Dilute 1/40%)) 1 applic BID IRR Last administered on 07/28/17 09:07; Admin Dose 1 APPLIC; Start 07/26/17 at 21:00 Lansoprazole (Prevacid) 30 mg BID@06,18 PO Last administered on 07/28/17 06: 09; Admin Dose 30 MG; Start 07/26/17 at 18:00 ARYAN COLLADO Jul 28, 2017 11:30
--- NOTE | 2017-07-28 12:46 | PN ---
DATE: 07/28/2017 SUBJECTIVE: The patient remains nonverbal, noncommunicative, she spiked fever of 102.3 this morning . No labs this morning. MICROBIOLOGY: Urine culture grew Pseudomonas aeruginosa. Blood culture were growing coagulase-nega tive staph species 1 out of 2 sets. Initial wound culture grew multiple bacteria including Acinetob acter baumannii, VRE, MRSA, Pilar albicans. INDWELLINGS: Trach, PEG, Joel. ANTIMICROBIALS: Patient is on: 1. Colistin. 2. Fluconazole. 3. Zyvox. ALLERGIES: CEPHALOSPORINS, PENICILLIN, SULFA, LEVAQUIN, VANCOMYCIN. PHYSICAL EXAMINATION: GENERAL: Chronically ill-appearing, middle-aged woman who is in no distress. HEENT: Head atraumatic, normocephalic. Sclerae anicteric. Buccal mucosa dry. NECK: Supple. Tracheostomy present. CHEST: Rise symmetrical. Breath sounds diminished to bases. HEART: S1, S2. ABDOMEN: Soft, bowel tones present. EXTREMITIES: Wasted without cyanosis. SKIN: With multiple unstageable wounds ASSESSMENT: 1. Sepsis with ongoing fevers 2. Urinary tract infection. 3. Multiple unstageable wounds. 4. Coagulase-negative staph bacteremia, likely contaminant. 5. Chronic respiratory failure. 6. Dysphagia. 7. Acute renal failure on admission with renal function markedly improved. 8. Chronic encephalopathy. PLAN: The patient remains clinically unchanged. We are going to repeat blood cultures and chest x- ray. Continue her on current regimen. Continue local wound care. Follow recommendations of cinthya willson. Dictated By: FLEX DENNISON OPERATOR ENGINEER for CRISTINA WHITFIELD/HERI Conf#: [id number] DID#: [id number]
--- NOTE | 2017-07-28 15:52 | CONS ---
Date/Time of Note Date/Time of Note DATE: 07/28/17 TIME: 15:51 Assessment/Plan Assessment/Plan Additional Assessment/Plan 1. Acute kidney injury due to ATN From sepsis + prerenal azotemia 2. Sepsis due to UTI 3. Chronic resp failure s/p Tracheostomy on ventilator 4/ Anemia of chronic disease 5/ HTN 6. UTI with Urine cx growing Gram negative rods Plan : Cr normal now continue Tube feeding as ordered ID following abx as per ID, pt is growing pseudomonas on Urine cx, and wound cx growing teresita, MRSA, acinetobacter IV abx colistin- renally dose all abx will follow up Consultation Date/Type/Reason Admit Date/Time Jul 21, 2017 at 23:24 Initial Consult Date 07/22/17 Type of Consultation: NEPHROLOGY Referring Provider: FLEX DENNISON NP 24 HR Interval Summary Free Text/Dictation Cr stable, electrolytes stable Exam/Review of Systems Vital Signs Vitals Vital Signs Date Time Temp Pulse Resp B/P Pulse Ox O2 Delivery O2 Flow Rate FiO2 07/28/17 15:21 99.4 103 18 97/54 95 07/28/17 10:40 30 Intake and Output 07/27/17 07/27/17 07/28/17 15:00 23:00 07:00 Intake Total 887 ml Output Total 700 ml Balance 187 ml Exam Constitutional: non-verbal, + tracheostomy on ventilator Neck: non-tender, supple Respiratory: crackles/rales, diminished breath sounds Cardiovascular: nl pulses, regular rate and rhythm Gastrointestinal: non-tender, soft, +G tube Musculoskeletal: dry skin, pedal pulses 2+ Extremities: normal pulses Results Result Diagram: 07/26/17 0602 07/26/17 0602 Results 24 hrs Laboratory Tests Test 07/27/17 18:25 07/27/17 21:41 07/28/17 00:16 07/28/17 06:11 Bedside Glucose 142 158 163 151 Test 07/28/17 07:56 07/28/17 13:03 07/28/17 13:06 Absolute Reticulocyte Count 0.077 Percent Reticulocyte Count 2.6 H Ferritin 1710.0 H Vitamin B12 Level 873 Folate > 20.0 H Bedside Glucose 195 181 Medications Medications Current Medications Miscellaneous Information (Pending [facility] Order For Wound Care) This patient stern... PRN PRN XX WOUND CARE; Start 07/22/17 at 03:30 Insulin Aspart (Novolog Insulin Pen) NOVOLOG *MILD* ALGORI... Q6 SC Last administered on 07/28/17 13:10; Admin Dose 2 UNIT; Start 07/22/17 at 06:00 Acetaminophen (Tylenol Tab) 650 mg Q4 PRN GTB ELEVATED TEMPERATURE Last administered on 07/28/17 09:05; Admin Dose 650 MG; Start 07/22/17 at 05:30 Ascorbic Acid (Vitamin C) 500 mg Q8 GTB Last administered on 07/28/17 14:33; Admin Dose 500 MG; Start 07/22/17 at 06:00 Baclofen (Lioresal) 20 mg TID GTB Last administered on 07/28/17 14:33; Admin Dose 20 MG; Start 07/22/17 at 09:00 Bisacodyl (Dulcolax Supp) 10 mg DAILY PRN [place] CONSTIPATION; Start 07/22/17 at 05:30 Docusate Sodium (Colace Liquid Cup) 100 mg BID GTB Last administered on 09:04; Admin Dose 100 MG; Start 07/22/17 at 09:00 Epoetin Andrey (Epogen (Esrd)) 15,000 units MoWeFr@17 SC Last administered on 12:50; Admin Dose 15,000 UNITS; Start 07/24/17 at 17:00 Magnesium Hydroxide (Milk Of Mag) 30 ml Q24H PRN PO CONSTIPATION; Start at 05:30 Magnesium Oxide (Mag-Ox 400) 800 mg DAILY GTB Last administered on 07/28/17 09:06; Admin Dose 800 MG; Start 07/22/17 at 09:00 Metoclopramide HCl (Reglan) 10 mg BID GTB Last administered on 07/28/17 09:06 ; Admin Dose 10 MG; Start 07/22/17 at 09:00 Mineral Oil (Fleet Mineral Oil Enema) 133 ml DAILY PRN [place] CONSTIPATION; Start 07/22/17 at 05:30 Multivitamins Therapeutic (Theragran) 1 tab DAILY GTB Last administered on 09:06; Admin Dose 1 TAB; Start 07/22/17 at 09:00 Sucralfate (Carafate) 1 gm DAILY GTB Last administered on 07/28/17 09:07; Admin Dose 1 GM; Start 07/22/17 at 09:00 Tramadol HCl (Ultram) 100 mg DAILY GTB Last administered on 07/28/17 09:06; Admin Dose 100 MG; Start 07/22/17 at 09:00 Acetaminophen/ Hydrocodone Bitart ([place] (5/325)) 1 tab Q6H PRN GTB PAIN LEVEL 7-10; Start 07/22/17 at 05:30 Miscellaneous Information 1 ea NOTE XX ; Start 07/22/17 at 15:00 Glucose (Glutose) 15 gm Q15M PRN PO DECREASED GLUCOSE; Start 07/22/17 at 15:00 Glucose (Glutose) 22.5 gm Q15M PRN PO DECREASED GLUCOSE; Start 07/22/17 at 15: 00 Dextrose (D50w Syringe) 25 ml Q15M PRN IV DECREASED GLUCOSE; Start 07/22/17 at 15:00 Dextrose (D50w Syringe) 50 ml Q15M PRN IV DECREASED GLUCOSE; Start 07/22/17 at 15:00 Glucagon (Glucagen) 1 mg Q15M PRN IM DECREASED GLUCOSE; Start 07/22/17 at 15: 00 Glucose (Glutose) 15 gm Q15M PRN BUCCAL DECREASED GLUCOSE; Start 07/22/17 at 15:00 Insulin Human NPH (Humulin N) 6 unit Q6 SC Last administered on 07/28/17 13: 09; Admin Dose 6 UNIT; Start 07/23/17 at 18:00 Linezolid (Zyvox) 600 mg BID PO Last administered on 07/28/17 09:06; Admin Dose 600 MG; Start 07/23/17 at 21:00 Fluconazole (Diflucan) 100 mg DAILY PO Last administered on 07/28/17 09:06; Admin Dose 100 MG; Start 07/25/17 at 09:00 Insulin Glargine 25 unit 25 unit DAILY@20 SC Last administered on 07/27/17 21 :45; Admin Dose 25 UNIT; Start 07/24/17 at 20:00 Colistimethate Sodium/Sodium Chloride (Coly-Mycin/NS) 100 ml @ 200 mls/hr Q12 IVPB Last administered on 07/28/17 09:04; Admin Dose 200 MLS/HR; Start 07/26 at 21:00 Sodium Hypochlorite (Dakin'S (Dilute 1/40%)) 1 applic BID IRR Last administered on 07/28/17 09:07; Admin Dose 1 APPLIC; Start 07/26/17 at 21:00 Lansoprazole (Prevacid) 30 mg BID@06,18 PO Last administered on 07/28/17 06: 09; Admin Dose 30 MG; Start 07/26/17 at 18:00 LIZETTE ALEX MD Jul 28, 2017 15:52
--- NOTE | 2017-07-28 17:14 | RADRPT ---
PROCEDURE: XR Chest. CLINICAL INDICATION: Shortness of breath. TECHNIQUE: Single frontal view. COMPARISON: 07/21/2017. FINDINGS: The tracheostomy tube and left arm PICC line are in satisfactory position. Mild left basilar consoli dation is unchanged. The heart size is normal. There is no pleural effusion. There is no pneumothorax. IMPRESSION: 1. Tracheostomy tube and left arm PICC line in satisfactory position. 2. Mild left basilar consolidation, unchanged. RPTAT: QQ .Bryant Naik MD, MD Date Time Electronically viewed and signed by .Bryant Naik MD, MD on 07/28/2017 17:13 .R/
--- NOTE | 2017-07-28 18:16 | PN ---
Date/Time of Note Date/Time of Note DATE: 07/28/17 TIME: 18:13 Assessment/Plan VTE Prophylaxis VTE Prophylaxis Intervention: SCD's Lines/Catheters IV Catheter Type (from Nrs): PICC Line Central line still needed: Yes Urinary Cath still in place: Yes Reason Cath still needed: urinary retention Assessment/Plan Chief Complaint/Hosp Course Continue to have low-grade fever and slightly tachycardic, comfortable on vent. Assessment/Plan -Sepsis secondary to UTI . Continue antibiotics per ID . Dr. Zavaleta is following in infection disease consultation. -Anemia of chronic disease, continue Epogen. Dr. Ruiz is following in gastroenterology consultation. -Advanced multiple sclerosis -Ventilator dependent respiratory failure. Dr. Blackwell is following in pulmonology consultation. -Dysphagia with PEG -Multiple decubitus ulcer, continue wound care per wound care consult. Dr. High is following in general surgery consultation. -Acute on chronic encephalopathy. Further recommendations based on clinical course. Plan of care discussed with Dr. Taylor. Problems: Exam/Review of Systems Vital Signs Vitals Vital Signs Date Time Temp Pulse Resp B/P Pulse Ox O2 Delivery O2 Flow Rate FiO2 07/28/17 16:40 82 07/28/17 15:21 99.4 18 97/54 95 07/28/17 10:40 30 Intake and Output 07/27/17 07/27/17 07/28/17 14:59 22:59 06:59 Intake Total 887 ml Output Total 700 ml Balance 187 ml Exam Constitutional: non-verbal Head: normocephalic Neck: other (Tracheostomy) Respiratory: diminished breath sounds Cardiovascular: nl pulses Gastrointestinal: non-tender, other (G-tube), soft Musculoskeletal: muscle weakness Neurological: confused Skin: other (Multiple wounds) Results Result Diagram: 07/26/17 0602 07/26/17 0602 Results 24 hrs Laboratory Tests Test 07/27/17 18:25 07/27/17 21:41 07/28/17 00:16 07/28/17 06:11 Bedside Glucose 142 158 163 151 Test 07/28/17 07:56 07/28/17 13:03 07/28/17 13:06 Absolute Reticulocyte Count 0.077 Percent Reticulocyte Count 2.6 H Ferritin 1710.0 H Vitamin B12 Level 873 Folate > 20.0 H Bedside Glucose 195 181 Medications Medications Current Medications Miscellaneous Information (Pending Santyl Order For Wound Care) This patient stern... PRN PRN XX WOUND CARE; Start 07/22/17 at 03:30 Insulin Aspart (Novolog Insulin Pen) NOVOLOG *MILD* ALGORI... Q6 SC Last administered on 07/28/17 13:10; Admin Dose 2 UNIT; Start 07/22/17 at 06:00 Acetaminophen (Tylenol Tab) 650 mg Q4 PRN GTB ELEVATED TEMPERATURE Last administered on 07/28/17 09:05; Admin Dose 650 MG; Start 07/22/17 at 05:30 Ascorbic Acid (Vitamin C) 500 mg Q8 GTB Last administered on 07/28/17 14:33; Admin Dose 500 MG; Start 07/22/17 at 06:00 Baclofen (Lioresal) 20 mg TID GTB Last administered on 07/28/17 14:33; Admin Dose 20 MG; Start 07/22/17 at 09:00 Bisacodyl (Dulcolax Supp) 10 mg DAILY PRN [place] CONSTIPATION; Start 07/22/17 at 05:30 Docusate Sodium (Colace Liquid Cup) 100 mg BID GTB Last administered on 09:04; Admin Dose 100 MG; Start 07/22/17 at 09:00 Epoetin Andrey (Epogen (Esrd)) 15,000 units MoWeFr@17 SC Last administered on 12:50; Admin Dose 15,000 UNITS; Start 07/24/17 at 17:00 Magnesium Hydroxide (Milk Of Mag) 30 ml Q24H PRN PO CONSTIPATION; Start at 05:30 Magnesium Oxide (Mag-Ox 400) 800 mg DAILY GTB Last administered on 07/28/17 09:06; Admin Dose 800 MG; Start 07/22/17 at 09:00 Metoclopramide HCl (Reglan) 10 mg BID GTB Last administered on 07/28/17 09:06 ; Admin Dose 10 MG; Start 07/22/17 at 09:00 Mineral Oil (Fleet Mineral Oil Enema) 133 ml DAILY PRN [place] CONSTIPATION; Start 07/22/17 at 05:30 Multivitamins Therapeutic (Theragran) 1 tab DAILY GTB Last administered on 09:06; Admin Dose 1 TAB; Start 07/22/17 at 09:00 Sucralfate (Carafate) 1 gm DAILY GTB Last administered on 07/28/17 09:07; Admin Dose 1 GM; Start 07/22/17 at 09:00 Tramadol HCl (Ultram) 100 mg DAILY GTB Last administered on 07/28/17 09:06; Admin Dose 100 MG; Start 07/22/17 at 09:00 Acetaminophen/ Hydrocodone Bitart ([place] (5/325)) 1 tab Q6H PRN GTB PAIN LEVEL 7-10; Start 07/22/17 at 05:30 Miscellaneous Information 1 ea NOTE XX ; Start 07/22/17 at 15:00 Glucose (Glutose) 15 gm Q15M PRN PO DECREASED GLUCOSE; Start 07/22/17 at 15:00 Glucose (Glutose) 22.5 gm Q15M PRN PO DECREASED GLUCOSE; Start 07/22/17 at 15: 00 Dextrose (D50w Syringe) 25 ml Q15M PRN IV DECREASED GLUCOSE; Start 07/22/17 at 15:00 Dextrose (D50w Syringe) 50 ml Q15M PRN IV DECREASED GLUCOSE; Start 07/22/17 at 15:00 Glucagon (Glucagen) 1 mg Q15M PRN IM DECREASED GLUCOSE; Start 07/22/17 at 15: 00 Glucose (Glutose) 15 gm Q15M PRN BUCCAL DECREASED GLUCOSE; Start 07/22/17 at 15:00 Insulin Human NPH (Humulin N) 6 unit Q6 SC Last administered on 07/28/17 13: 09; Admin Dose 6 UNIT; Start 07/23/17 at 18:00 Linezolid (Zyvox) 600 mg BID PO Last administered on 07/28/17 09:06; Admin Dose 600 MG; Start 07/23/17 at 21:00 Fluconazole (Diflucan) 100 mg DAILY PO Last administered on 07/28/17 09:06; Admin Dose 100 MG; Start 07/25/17 at 09:00 Insulin Glargine 25 unit 25 unit DAILY@20 SC Last administered on 07/27/17 21 :45; Admin Dose 25 UNIT; Start 07/24/17 at 20:00 Colistimethate Sodium/Sodium Chloride (Coly-Mycin/NS) 100 ml @ 200 mls/hr Q12 IVPB Last administered on 07/28/17 09:04; Admin Dose 200 MLS/HR; Start 07/26 at 21:00 Sodium Hypochlorite (Dakin'S (Dilute 1/40%)) 1 applic BID IRR Last administered on 07/28/17 09:07; Admin Dose 1 APPLIC; Start 07/26/17 at 21:00 Lansoprazole (Prevacid) 30 mg BID@06,18 PO Last administered on 07/28/17 06: 09; Admin Dose 30 MG; Start 07/26/17 at 18:00 ALIZA ANDRADE Jul 28, 2017 18:16
[2017-07-28] MEDS: EPOETIN 10000 UNITS/1 ML INJ (ESRD) SC SCH (18:30)
[2017-07-28] MEDS: INSULIN GLARGINE [LANtus] 3 ML PEN SC SCH (22:38)
[2017-07-29] VITALS (23 sets, daily range): BP systolic 97–107; BP diastolic 54–63; PULSE 93–110; RESP 11–20
[2017-07-29] MEDS: NPH, HUMAN INSULIN ISOPHANE 3ML VIAL SC SCH ×4 (00:47→17:28)
[2017-07-29] MEDS: INSULIN ASPART [NOVOLOG] 3 ML PEN SC SCH ×4 (00:51→17:29)
--- NOTE | 2017-07-29 03:40 | PN ---
Date/Time of Note Date/Time of Note DATE: 07/28/17 TIME: 19:37 Assessment/Plan Lines/Catheters IV Catheter Type (from Nrsg): PICC Line Joel in Place (from Nrsg): Yes Assessment/Plan Chief Complaint/Hosp Course 1. Multiple wound: 2/2 immobility; cultures noted -debridement -local care -frequent turning and off-loading -low air loss mattress -vitamin c -short term zinc -optimize nutrition 2. Hypochromic anemia: no acute bleed noted -monitor -transfuse as needed 3. UTI: -abx per sensitivity -frequent bladder emptying/cath care 4. VDRF -pulm toilet -respiratory treatments Thank you, Late entry 07/28 Problems: Subjective 24 Hr Interval Summary No acute change overnight. Appears comfortable on vent. Non verbal indicators of pain not present. No fevers, congested cough, change in tele rhythm, vomiting , bloating, rashes. Bowel function. Exam/Review of Systems Vital Signs Vitals Vital Signs Date Time Temp Pulse Resp B/P Pulse Ox O2 Delivery O2 Flow Rate FiO2 07/29/17 00:30 100.9 104 13 100/57 100 07/28/17 23:00 30 Intake and Output 07/28/17 07/28/17 07/29/17 15:00 23:00 07:00 Intake Total 1260 ml Output Total 500 ml Balance 760 ml Exam Free Text/Dictation Constitutional: alert, other (nonverbal) Head: atraumatic, normocephalic Eyes: nl lids, nl sclera, No icteric ENMT: mucosa pink and moist, nl nasal mucosa & septum Neck: non-tender, other (trach), supple Respiratory: other (vent), No labored breathing Cardiovascular: regular rate and rhythm Gastrointestinal: non-tender, other (peg; umbilical hernia, rotund), soft Extremities: normal pulses, other (stiffness) Neurological: other (withdraws from painful stimuli) Skin: other (multiple wounds: min drainage, min odor) Results Result Diagram: 07/26/1760107/26/17601 SARAH HIGH MD Jul 29, 2017 03:40
--- NOTE | 2017-07-29 05:31 | CONS ---
DATE OF ADMISSION: 07/21/2017 DATE OF CONSULTATION: GASTROINTESTINAL CONSULTATION A 57-year-old female, vent-dependent respiratory failure, has decubitus ulcer and anemic. The patient is nonverbal. OBJECTIVE: VITAL SIGNS: Stable. ABDOMEN: Benign. G-tube is functional. CARDIOVASCULAR: Patient is on vent. EXTREMITIES: Contracted: CENTRAL NERVOUS SYSTEM: Patient does not communicate. LABORATORY DATA: Hematocrit is stable. B12, folic acid and ferritin are all within normal limits. Retic count was mildly elevated. IMPRESSION 1. Anemia, most probably of chronic disease. 2. Decubitus ulcer. 3, Ventilator-dependent respiratory failure. 4. Dysphagia, status post percutaneous endoscopic gastrostomy. PLAN: To continue present care. Debridement as per the surgeon. Monitor H and H. Dictated By: HELENA GARCIA/HERI Conf#: [id number] DID#: [id number]
[2017-07-29] MEDS: LANSOPRAZOLE 30 MG CAP PO SCH ×2 (05:55→17:24)
[2017-07-29] MEDS: ASCORBIC ACID 500 MG TAB GTB SCH ×4 (05:55→21:47)
[2017-07-29 06:56] LABS: BASOPHILS % 0.2 % (0.0-2.0); EOSINOPHILS # 0.1 10^3/ul (0.0-0.5); EOSINOPHILS % 1.8 % (0.0-7.0); HEMATOCRIT 26.5 % (37.0-47.0); HEMOGLOBIN 7.7 g/dl (12.0-16.0); LYMPHOCYTES # 1.1 10^3/ul (0.8-2.9); LYMPHOCYTES % 17.1 % (15.0-51.0); MEAN CORPUSCULAR HGB CONC 29.1 g/dl (32.0-37.0); MEAN PLATELET VOLUME 10.6 fl (7.4-10.4); MONOCYTE # 0.4 10^3/ul (0.3-0.9); MONOCYTES % 6.4 % (0.0-11.0); NEUTROPHIL # 4.6 10^3/ul (1.6-7.5); NEUTROPHILS % 73.5 % (39.0-77.0); PLATELET COUNT 275 10^3/UL (140-415); RED BLOOD COUNT 3.08 10^6/ul (4.20-5.40); RED CELL DISTRIBUTION WIDTH 20.4 % (11.5-14.5); WHITE BLOOD COUNT 6.3 10^3/ul (4.8-10.8)
[2017-07-29 07:21] LABS: CALCIUM 9.2 mg/dl (8.4-10.2); CREATININE 0.74 mg/dl (0.44-1.00); POTASSIUM 4.5 mmol/L (3.5-5.1)
[2017-07-29] MEDS: SODIUM HYPOCHLORITE 1/40% 1L IRRIG IRR SCH ×3 (09:00→21:47)
[2017-07-29] MEDS: DOCUSATE SODIUM 10 MG/ML (10ML CUP) GTB SCH ×2 (09:14→21:46)
[2017-07-29] MEDS: BACLOFEN 10 MG TAB GTB SCH ×3 (09:14→21:46)
[2017-07-29] MEDS: COLISTIMETHATE 75 MG in SOD CHLORIDE 0.9% 100 ML IVPB SCH ×2 (09:14→21:56)
[2017-07-29] MEDS: SUCRALFATE 1 GM TAB GTB SCH (09:15)
[2017-07-29] MEDS: ZYVOX 600 MG TAB PO SCH ×2 (09:15→21:46)
[2017-07-29] MEDS: FLUCONAZOLE 100 MG TAB PO SCH (09:15)
[2017-07-29] MEDS: MULTIVITAMINS THERAPEUTIC TAB GTB SCH (09:15)
[2017-07-29] MEDS: METOCLOPRAMIDE 10 MG TAB GTB SCH ×2 (09:15→21:47)
[2017-07-29] MEDS: MAGNESIUM OXIDE 400 MG TAB GTB SCH (09:16)
[2017-07-29] MEDS: ZINC SULFATE 220 MG CAP GTB SCH (09:16)
[2017-07-29] MEDS: traMADol 50 MG TAB GTB SCH (09:25)
--- NOTE | 2017-07-29 10:04 | PN ---
Date/Time of Note Date/Time of Note DATE: 07/29/17 TIME: 10:04 Assessment/Plan VTE Prophylaxis VTE Prophylaxis Intervention: other Lines/Catheters IV Catheter Type (from Nrs): PICC Line Central line still needed: Yes Urinary Cath still in place: Yes Reason Cath still needed: skin wounds contaminated by urine Assessment/Plan Chief Complaint/Hosp Course -Sepsis secondary to UTI . Continue antibiotics per ID . Dr. Zavaleta is following in infection disease consultation. -Anemia of chronic disease, continue Epogen. Dr. Ruiz is following in gastroenterology consultation. -Advanced multiple sclerosis -Ventilator dependent respiratory failure. Dr. Blackwell is following in pulmonology consultation. -Dysphagia with PEG -Multiple decubitus ulcer, continue wound care per wound care consult. Dr. High is following in general surgery consultation. -Acute on chronic encephalopathy. Problems: Subjective 24 Hr Interval Summary Free Text/Dictation Patient has no complaints Exam/Review of Systems Vital Signs Vitals Vital Signs Date Time Temp Pulse Resp B/P Pulse Ox O2 Delivery O2 Flow Rate FiO2 07/29/17 08:40 103 07/29/17 08:03 98.6 20 98/54 99 07/29/17 05:10 30 Intake and Output 07/28/17 07/28/17 07/29/17 15:00 23:00 07:00 Intake Total 1260 ml 960 ml Output Total 500 ml 750 ml Balance 760 ml 210 ml Exam Constitutional: well developed Head: atraumatic, normocephalic Neck: supple Respiratory: diminished breath sounds Cardiovascular: regular rate and rhythm Gastrointestinal: non-tender, soft Extremities: normal pulses Results Result Diagram: 07/29/17 0554 07/29/17 0554 Results 24 hrs Laboratory Tests Test 07/28/17 13:03 07/28/17 13:06 07/28/17 18:29 07/28/17 22:00 Bedside Glucose 195 181 175 164 Test 07/29/17 00:41 07/29/17 05:53 07/29/17 05:54 Bedside Glucose 156 171 White Blood Count 6.3 Red Blood Count 3.08 L Hemoglobin 7.7 L Hematocrit 26.5 L Mean Corpuscular Volume 86.0 Mean Corpuscular Hemoglobin 25.0 L Mean Corpuscular Hemoglobin Concent 29.1 L Red Cell Distribution Width 20.4 H Platelet Count 275 Mean Platelet Volume 10.6 H Neutrophils % 73.5 Lymphocytes % 17.1 Monocytes % 6.4 Eosinophils % 1.8 Basophils % 0.2 Nucleated Red Blood Cells % 0.0 Neutrophils # 4.6 Lymphocytes # 1.1 Monocytes # 0.4 Eosinophils # 0.1 Basophils # 0.0 Nucleated Red Blood Cells # 0.0 Sodium Level 141 Potassium Level 4.5 Chloride Level 106 Carbon Dioxide Level 25 Anion Gap 15 Blood Urea Nitrogen 25 H Creatinine 0.74 Glucose Level 163 Calcium Level 9.2 Medications Medications Current Medications Miscellaneous Information (Pending Santyl Order For Wound Care) This patient stern... PRN PRN XX WOUND CARE; Start 07/22/17 at 03:30 Insulin Aspart (Novolog Insulin Pen) NOVOLOG *MILD* ALGORI... Q6 SC Last administered on 07/29/17 06:02; Admin Dose 1 UNIT; Start 07/22/17 at 06:00 Acetaminophen (Tylenol Tab) 650 mg Q4 PRN GTB ELEVATED TEMPERATURE Last administered on 07/28/17 09:05; Admin Dose 650 MG; Start 07/22/17 at 05:30 Ascorbic Acid (Vitamin C) 500 mg Q8 GTB Last administered on 07/29/17 05:55; Admin Dose 500 MG; Start 07/22/17 at 06:00 Baclofen (Lioresal) 20 mg TID GTB Last administered on 07/29/17 09:14; Admin Dose 20 MG; Start 07/22/17 at 09:00 Bisacodyl (Dulcolax Supp) 10 mg DAILY PRN [place] CONSTIPATION; Start 07/22/17 at 05:30 Docusate Sodium (Colace Liquid Cup) 100 mg BID GTB Last administered on 09:14; Admin Dose 100 MG; Start 07/22/17 at 09:00 Epoetin Andrey (Epogen (Esrd)) 15,000 units MoWeFr@17 SC Last administered on 18:30; Admin Dose 15,000 UNITS; Start 07/24/17 at 17:00 Magnesium Hydroxide (Milk Of Mag) 30 ml Q24H PRN PO CONSTIPATION; Start at 05:30 Magnesium Oxide (Mag-Ox 400) 800 mg DAILY GTB Last administered on 07/29/17 09:16; Admin Dose 800 MG; Start 07/22/17 at 09:00 Metoclopramide HCl (Reglan) 10 mg BID GTB Last administered on 07/29/17 09:15 ; Admin Dose 10 MG; Start 07/22/17 at 09:00 Mineral Oil (Fleet Mineral Oil Enema) 133 ml DAILY PRN [place] CONSTIPATION; Start 07/22/17 at 05:30 Multivitamins Therapeutic (Theragran) 1 tab DAILY GTB Last administered on 09:15; Admin Dose 1 TAB; Start 07/22/17 at 09:00 Sucralfate (Carafate) 1 gm DAILY GTB Last administered on 07/29/17 09:15; Admin Dose 1 GM; Start 07/22/17 at 09:00 Tramadol HCl (Ultram) 100 mg DAILY GTB Last administered on 07/29/17 09:25; Admin Dose 100 MG; Start 07/22/17 at 09:00 Acetaminophen/ Hydrocodone Bitart ([place] (5/325)) 1 tab Q6H PRN GTB PAIN LEVEL 7-10; Start 07/22/17 at 05:30 Miscellaneous Information 1 ea NOTE XX ; Start 07/22/17 at 15:00 Glucose (Glutose) 15 gm Q15M PRN PO DECREASED GLUCOSE; Start 07/22/17 at 15:00 Glucose (Glutose) 22.5 gm Q15M PRN PO DECREASED GLUCOSE; Start 07/22/17 at 15: 00 Dextrose (D50w Syringe) 25 ml Q15M PRN IV DECREASED GLUCOSE; Start 07/22/17 at 15:00 Dextrose (D50w Syringe) 50 ml Q15M PRN IV DECREASED GLUCOSE; Start 07/22/17 at 15:00 Glucagon (Glucagen) 1 mg Q15M PRN IM DECREASED GLUCOSE; Start 07/22/17 at 15: 00 Glucose (Glutose) 15 gm Q15M PRN BUCCAL DECREASED GLUCOSE; Start 07/22/17 at 15:00 Insulin Human NPH (Humulin N) 6 unit Q6 SC Last administered on 07/29/17 06: 00; Admin Dose 6 UNIT; Start 07/23/17 at 18:00 Linezolid (Zyvox) 600 mg BID PO Last administered on 07/29/17 09:15; Admin Dose 600 MG; Start 07/23/17 at 21:00 Fluconazole (Diflucan) 100 mg DAILY PO Last administered on 07/29/17 09:15; Admin Dose 100 MG; Start 07/25/17 at 09:00 Insulin Glargine 25 unit 25 unit DAILY@20 SC Last administered on 07/28/17 22 :38; Admin Dose 25 UNIT; Start 07/24/17 at 20:00 Colistimethate Sodium/Sodium Chloride (Coly-Mycin/NS) 100 ml @ 200 mls/hr Q12 IVPB Last administered on 07/29/17 09:14; Admin Dose 200 MLS/HR; Start 07/26 at 21:00 Sodium Hypochlorite (Dakin'S (Dilute 1/40%)) 1 applic BID IRR Last administered on 07/28/17 22:45; Admin Dose 1 APPLIC; Start 07/26/17 at 21:00 Lansoprazole (Prevacid) 30 mg BID@06,18 PO Last administered on 07/29/17 05: 55; Admin Dose 30 MG; Start 07/26/17 at 18:00 Zinc Sulfate (Zinc Sulfate) 220 mg DAILY GTB Last administered on 07/29/17 09 :16; Admin Dose 220 MG; Start 07/29/17 at 09:00 Ascorbic Acid (Vitamin C) 500 mg DAILY GTB Last administered on 07/29/17 09: 16; Admin Dose 500 MG; Start 07/29/17 at 09:00 HESHAM KC Jul 29, 2017 10:04
--- NOTE | 2017-07-29 12:20 | CONS ---
Date/Time of Note Date/Time of Note DATE: 07/29/17 TIME: 12:18 Consult Date/Type/Reason Admit Date/Time Jul 21, 2017 at 23:24 Initial Consult Date 07/22/17 Type of Consultation: Pulmonary Ordering Provider: FLEX DENNISON NP Subjective Patient appears comfortable this morning. Objective Vital Signs Date Time Temp Pulse Resp B/P Pulse Ox O2 Delivery O2 Flow Rate FiO2 07/29/17 11:06 105 15 99 30 07/29/17 08:03 98.6 98/54 Intake and Output 07/28/17 07/28/17 07/29/17 15:00 23:00 07:00 Intake Total 1260 ml 960 ml Output Total 500 ml 750 ml Balance 760 ml 210 ml Exam PHYSICAL EXAMINATION GENERAL: Chronically ill-appearing lady comfortable at rest no acute distress VITAL SIGNS: see below. HEENT: Pupils equal, round, and reactive to light. Tracheostomy site clean and intact. CARDIAC: S1, S2, 1/6 systolic ejection murmur CHEST: Diminished air entry bilaterally. ABDOMEN: Mildly distended. Bowel sounds present no guarding or rebound EXTREMITIES: No cyanosis, clubbing edema +1 NEUROLOGIC: Generalized weakness Results/Medications Result Diagram: 07/29/17 0554 07/29/17 0554 Results 24 hrs Laboratory Tests Test 07/28/17 13:03 07/28/17 13:06 07/28/17 18:29 07/28/17 22:00 Bedside Glucose 195 181 175 164 Test 07/29/17 00:41 07/29/17 05:53 07/29/17 05:54 Bedside Glucose 156 171 White Blood Count 6.3 Red Blood Count 3.08 L Hemoglobin 7.7 L Hematocrit 26.5 L Mean Corpuscular Volume 86.0 Mean Corpuscular Hemoglobin 25.0 L Mean Corpuscular Hemoglobin Concent 29.1 L Red Cell Distribution Width 20.4 H Platelet Count 275 Mean Platelet Volume 10.6 H Neutrophils % 73.5 Lymphocytes % 17.1 Monocytes % 6.4 Eosinophils % 1.8 Basophils % 0.2 Nucleated Red Blood Cells % 0.0 Neutrophils # 4.6 Lymphocytes # 1.1 Monocytes # 0.4 Eosinophils # 0.1 Basophils # 0.0 Nucleated Red Blood Cells # 0.0 Sodium Level 141 Potassium Level 4.5 Chloride Level 106 Carbon Dioxide Level 25 Anion Gap 15 Blood Urea Nitrogen 25 H Creatinine 0.74 Glucose Level 163 Calcium Level 9.2 Medications Current Medications Miscellaneous [facility] This patient stern... PRN PRN XX WOUND CARE; Start 07/22/17 at 03:30 Insulin Aspart (Novolog Insulin Pen) NOVOLOG *MILD* ALGORI... Q6 SC Last administered on 07/29/17 06:02; Admin Dose 1 UNIT; Start 07/22/17 at 06:00 Acetaminophen (Tylenol Tab) 650 mg Q4 PRN GTB ELEVATED TEMPERATURE Last administered on 07/28/17 09:05; Admin Dose 650 MG; Start 07/22/17 at 05:30 Ascorbic Acid (Vitamin C) 500 mg Q8 GTB Last administered on 07/29/17 05:55; Admin Dose 500 MG; Start 07/22/17 at 06:00 Baclofen (Lioresal) 20 mg TID GTB Last administered on 07/29/17 09:14; Admin Dose 20 MG; Start 07/22/17 at 09:00 Bisacodyl (Dulcolax Supp) 10 mg DAILY PRN [place] CONSTIPATION; Start 07/22/17 at 05:30 Docusate Sodium (Colace Liquid Cup) 100 mg BID GTB Last administered on 09:14; Admin Dose 100 MG; Start 07/22/17 at 09:00 Epoetin Andrey (Epogen (Esrd)) 15,000 units MoWeFr@17 SC Last administered on 18:30; Admin Dose 15,000 UNITS; Start 07/24/17 at 17:00 Magnesium Hydroxide (Milk Of Mag) 30 ml Q24H PRN PO CONSTIPATION; Start at 05:30 Magnesium Oxide (Mag-Ox 400) 800 mg DAILY GTB Last administered on 07/29/17 09:16; Admin Dose 800 MG; Start 07/22/17 at 09:00 Metoclopramide HCl (Reglan) 10 mg BID GTB Last administered on 07/29/17 09:15 ; Admin Dose 10 MG; Start 07/22/17 at 09:00 Mineral Oil (Fleet Mineral Oil Enema) 133 ml DAILY PRN [place] CONSTIPATION; Start 07/22/17 at 05:30 Multivitamins Therapeutic (Theragran) 1 tab DAILY GTB Last administered on 09:15; Admin Dose 1 TAB; Start 07/22/17 at 09:00 Sucralfate (Carafate) 1 gm DAILY GTB Last administered on 07/29/17 09:15; Admin Dose 1 GM; Start 07/22/17 at 09:00 Tramadol HCl (Ultram) 100 mg DAILY GTB Last administered on 07/29/17 09:25; Admin Dose 100 MG; Start 07/22/17 at 09:00 Acetaminophen/ Hydrocodone Bitart ([place] (5/325)) 1 tab Q6H PRN GTB PAIN LEVEL 7-10; Start 07/22/17 at 05:30 Miscellaneous Information 1 ea NOTE XX ; Start 07/22/17 at 15:00 Glucose (Glutose) 15 gm Q15M PRN PO DECREASED GLUCOSE; Start 07/22/17 at 15:00 Glucose (Glutose) 22.5 gm Q15M PRN PO DECREASED GLUCOSE; Start 07/22/17 at 15: 00 Dextrose (D50w Syringe) 25 ml Q15M PRN IV DECREASED GLUCOSE; Start 07/22/17 at 15:00 Dextrose (D50w Syringe) 50 ml Q15M PRN IV DECREASED GLUCOSE; Start 07/22/17 at 15:00 Glucagon (Glucagen) 1 mg Q15M PRN IM DECREASED GLUCOSE; Start 07/22/17 at 15: 00 Glucose (Glutose) 15 gm Q15M PRN BUCCAL DECREASED GLUCOSE; Start 07/22/17 at 15:00 Insulin Human NPH (Humulin N) 6 unit Q6 SC Last administered on 07/29/17 06: 00; Admin Dose 6 UNIT; Start 07/23/17 at 18:00 Linezolid (Zyvox) 600 mg BID PO Last administered on 07/29/17 09:15; Admin Dose 600 MG; Start 07/23/17 at 21:00 Fluconazole (Diflucan) 100 mg DAILY PO Last administered on 07/29/17 09:15; Admin Dose 100 MG; Start 07/25/17 at 09:00 Insulin Glargine 25 unit 25 unit DAILY@20 SC Last administered on 07/28/17 22 :38; Admin Dose 25 UNIT; Start 07/24/17 at 20:00 Colistimethate Sodium/Sodium Chloride (Coly-Mycin/NS) 100 ml @ 200 mls/hr Q12 IVPB Last administered on 07/29/17 09:14; Admin Dose 200 MLS/HR; Start 07/26 at 21:00 Sodium Hypochlorite (Dakin'S (Dilute 1/40%)) 1 applic BID IRR Last administered on 07/28/17 22:45; Admin Dose 1 APPLIC; Start 07/26/17 at 21:00 Lansoprazole (Prevacid) 30 mg BID@06,18 PO Last administered on 07/29/17 05: 55; Admin Dose 30 MG; Start 07/26/17 at 18:00 Zinc Sulfate (Zinc Sulfate) 220 mg DAILY GTB Last administered on 07/29/17 09 :16; Admin Dose 220 MG; Start 07/29/17 at 09:00 Ascorbic Acid (Vitamin C) 500 mg DAILY GTB Last administered on 07/29/17 09: 16; Admin Dose 500 MG; Start 07/29/17 at 09:00 Assessment/Plan Chief Complaint/Hosp Course Additional Assessment/Plan IMP: 1. Anemia--workup in place. 2. Urosepsis 3. VDRF 4. Encephalopathy RECS: 1. Vent support 2. BD's/CPT 3. Abx per ID 4. GIB w/u per GI DC planning okay from pulmonary standpoint Problems: ULYSSES FORRESTER MD, [facility] Jul 29, 2017 12:20
--- NOTE | 2017-07-29 13:23 | CONS ---
Date/Time of Note Date/Time of Note DATE: 07/29/17 TIME: 13:10 Assessment/Plan Assessment/Plan Chief Complaint/Hosp Course ID PROGRESS NOTE CURRENT ABX=> Coly-Mycin + Zyvox + Diflucan 24H INTERVAL SUMMARY * Clinically status quo == chronic encephalopathy w/hx of advanced MS -> Noncommunicative on the Vent, Afebrile, VSS, NAD * MICROBIOLOGY: Urine culture grew Pseudomonas aeruginosa. Blood culture were growing coagulase-negative staph species 1 out of 2 sets. Initial wound culture grew multiple bacteria including Acinetobacter baumannii, VRE, MRSA, Pilar albicans. * Fevers on and off continue * 07/29/17 0554 07/29/17 0554 PHYSICAL EXAMINATION: GENERAL: VSS, NAD HEENT: Unremarkable NECK: Supple, trach-> Secure to Vent with scant whitish secretions CHEST: Rise symmetrical, without dyspnea on observation HEART: Pulse RRR ABDOMEN: Soft, Peg EXTREMITIES: Wasted with trace edema. SKIN: With multiple unstageable decubiti. ID ASSESSMENT 56 yo F w/ Advanced multiple sclerosis, encephalopathy, Trach, Peg, functional quadriplegia admit with: 1. Severe sepsis with fevers on and off 2. 07/21/17 BCx (+) 1/2 bottles on admission => COAGULASE NEGATIVE STAPH 3. Complicated recurrent MDRO Pseudomonas (PSAR) early UTI w/low colony count < 10,000 4. HCAP -> CXR 07/28/17: Mild left basilar consolidation, unchanged. 5. Dysphagia-> PEG 6. Multiple infected wounds => Polymicrobial MDRO host 7. Acute renal failure on admission with renal function markedly improved. 8. Hx of diarrhea, hx of fecal impaction (- )MRSA Nares Screen (+) VRE stool colonization INVASIVES: Trach, peg, FC, PIV ABX ALLERGY: PCN, Cephalosporins, Fluoroquinolones, Vanco IV * Reported hx of allergy to Cephalosporins = tolerated Cefepime prior admission without rash noted = doubt true allergy. CURRENT ABX=> Coly-Mycin + Zyvox + Diflucan ID RECOMMENDATIONS 1. Continue current ABX & local wound care Problems: Consultation Date/Type/Reason Admit Date/Time Jul 21, 2017 at 23:24 Initial Consult Date 07/26/17 Type of Consultation: ID Referring Provider: FLEX DENNISON NP Exam/Review of Systems Vital Signs Vitals Vital Signs Date Time Temp Pulse Resp B/P Pulse Ox O2 Delivery O2 Flow Rate FiO2 07/29/17 12:39 98.0 102 18 100/56 98 07/29/17 11:06 30 Intake and Output 07/28/17 07/28/17 07/29/17 15:00 23:00 07:00 Intake Total 1260 ml 960 ml Output Total 500 ml 750 ml Balance 760 ml 210 ml Results Result Diagram: 07/29/17 0554 07/29/17 0554 Results 24 hrs Laboratory Tests Test 07/28/17 18:29 07/28/17 22:00 07/29/17 00:41 07/29/17 05:53 Bedside Glucose 175 164 156 171 Test 07/29/17 05:54 07/29/17 12:09 White Blood Count 6.3 Red Blood Count 3.08 L Hemoglobin 7.7 L Hematocrit 26.5 L Mean Corpuscular Volume 86.0 Mean Corpuscular Hemoglobin 25.0 L Mean Corpuscular Hemoglobin Concent 29.1 L Red Cell Distribution Width 20.4 H Platelet Count 275 Mean Platelet Volume 10.6 H Neutrophils % 73.5 Lymphocytes % 17.1 Monocytes % 6.4 Eosinophils % 1.8 Basophils % 0.2 Nucleated Red Blood Cells % 0.0 Neutrophils # 4.6 Lymphocytes # 1.1 Monocytes # 0.4 Eosinophils # 0.1 Basophils # 0.0 Nucleated Red Blood Cells # 0.0 Sodium Level 141 Potassium Level 4.5 Chloride Level 106 Carbon Dioxide Level 25 Anion Gap 15 Blood Urea Nitrogen 25 H Creatinine 0.74 Glucose Level 163 Calcium Level 9.2 Bedside Glucose 180 Medications Medications Current Medications Miscellaneous Information (Pending [facility] Order For Wound Care) This patient stern... PRN PRN XX WOUND CARE; Start 07/22/17 at 03:30 Insulin Aspart (Novolog Insulin Pen) NOVOLOG *MILD* ALGORI... Q6 SC Last administered on 07/29/17t 12:19; Admin Dose 1 UNIT; Start 07/22/17 at 06:00 Acetaminophen (Tylenol Tab) 650 mg Q4 PRN GTB ELEVATED TEMPERATURE Last administered on 07/28/17 09:05; Admin Dose 650 MG; Start 07/22/17 at 05:30 Ascorbic Acid (Vitamin C) 500 mg Q8 GTB Last administered on 07/29/17 05:55; Admin Dose 500 MG; Start 07/22/17 at 06:00 Baclofen (Lioresal) 20 mg TID GTB Last administered on 07/29/17 09:14; Admin Dose 20 MG; Start 07/22/17 at 09:00 Bisacodyl (Dulcolax Supp) 10 mg DAILY PRN [place] CONSTIPATION; Start 07/22/17 at 05:30 Docusate Sodium (Colace Liquid Cup) 100 mg BID GTB Last administered on 09:14; Admin Dose 100 MG; Start 07/22/17 at 09:00 Epoetin Andrey (Epogen (Esrd)) 15,000 units MoWeFr@17 SC Last administered on 18:30; Admin Dose 15,000 UNITS; Start 07/24/17 at 17:00 Magnesium Hydroxide (Milk Of Mag) 30 ml Q24H PRN PO CONSTIPATION; Start at 05:30 Magnesium Oxide (Mag-Ox 400) 800 mg DAILY GTB Last administered on 07/29/17 09:16; Admin Dose 800 MG; Start 07/22/17 at 09:00 Metoclopramide HCl (Reglan) 10 mg BID GTB Last administered on 07/29/17 09:15 ; Admin Dose 10 MG; Start 07/22/17 at 09:00 Mineral Oil (Fleet Mineral Oil Enema) 133 ml DAILY PRN [place] CONSTIPATION; Start 07/22/17 at 05:30 Multivitamins Therapeutic (Theragran) 1 tab DAILY GTB Last administered on 09:15; Admin Dose 1 TAB; Start 07/22/17 at 09:00 Sucralfate (Carafate) 1 gm DAILY GTB Last administered on 07/29/17 09:15; Admin Dose 1 GM; Start 07/22/17 at 09:00 Tramadol HCl (Ultram) 100 mg DAILY GTB Last administered on 07/29/17 09:25; Admin Dose 100 MG; Start 07/22/17 at 09:00 Acetaminophen/ Hydrocodone Bitart ([place] (5/325)) 1 tab Q6H PRN GTB PAIN LEVEL 7-10; Start 07/22/17 at 05:30 Miscellaneous Information 1 ea NOTE XX ; Start 07/22/17 at 15:00 Glucose (Glutose) 15 gm Q15M PRN PO DECREASED GLUCOSE; Start 07/22/17 at 15:00 Glucose (Glutose) 22.5 gm Q15M PRN PO DECREASED GLUCOSE; Start 07/22/17 at 15: 00 Dextrose (D50w Syringe) 25 ml Q15M PRN IV DECREASED GLUCOSE; Start 07/22/17 at 15:00 Dextrose (D50w Syringe) 50 ml Q15M PRN IV DECREASED GLUCOSE; Start 07/22/17 at 15:00 Glucagon (Glucagen) 1 mg Q15M PRN IM DECREASED GLUCOSE; Start 07/22/17 at 15: 00 Glucose (Glutose) 15 gm Q15M PRN BUCCAL DECREASED GLUCOSE; Start 07/22/17 at 15:00 Insulin Human NPH (Humulin N) 6 unit Q6 SC Last administered on 07/29/17 12: 18; Admin Dose 6 UNIT; Start 07/23/17 at 18:00 Linezolid (Zyvox) 600 mg BID PO Last administered on 07/29/17 09:15; Admin Dose 600 MG; Start 07/23/17 at 21:00 Fluconazole (Diflucan) 100 mg DAILY PO Last administered on 07/29/17 09:15; Admin Dose 100 MG; Start 07/25/17 at 09:00 Insulin Glargine 25 unit 25 unit DAILY@20 SC Last administered on 07/28/17 22 :38; Admin Dose 25 UNIT; Start 07/24/17 at 20:00 Colistimethate Sodium/Sodium Chloride (Coly-Mycin/NS) 100 ml @ 200 mls/hr Q12 IVPB Last administered on 07/29/17 09:14; Admin Dose 200 MLS/HR; Start 07/26 at 21:00 Sodium Hypochlorite (Dakin'S (Dilute 1/40%)) 1 applic BID IRR Last administered on 07/28/17 22:45; Admin Dose 1 APPLIC; Start 07/26/17 at 21:00 Lansoprazole (Prevacid) 30 mg BID@06,18 PO Last administered on 07/29/17 05: 55; Admin Dose 30 MG; Start 07/26/17 at 18:00 Zinc Sulfate (Zinc Sulfate) 220 mg DAILY GTB Last administered on 07/29/17 09 :16; Admin Dose 220 MG; Start 07/29/17 at 09:00 Ascorbic Acid (Vitamin C) 500 mg DAILY GTB Last administered on 07/29/17 09: 16; Admin Dose 500 MG; Start 07/29/17 at 09:00 REI BECK NP Jul 29, 2017 13:22
--- NOTE | 2017-07-29 15:37 | CONS ---
Date/Time of Note Date/Time of Note DATE: 07/29/17 TIME: 15:36 Assessment/Plan Assessment/Plan Additional Assessment/Plan MPRESSION 1. Anemia, most probably of chronic disease. 2. Decubitus ulcer. 3, Ventilator-dependent respiratory failure. 4. Dysphagia, status post percutaneous endoscopic gastrostomy. PLAN: To continue present care. Debridement as per the surgeon. Monitor H and H. Consultation Date/Type/Reason Admit Date/Time Jul 21, 2017 at 23:24 Initial Consult Date 07/22/17 Type of Consultation: ID Referring Provider: FLEX DENNISON NP 24 HR Interval Summary Constitutional: no complaints Exam/Review of Systems Vital Signs Vitals Vital Signs Date Time Temp Pulse Resp B/P Pulse Ox O2 Delivery O2 Flow Rate FiO2 07/29/17 12:39 98.0 102 18 100/56 98 07/29/17 11:06 30 Intake and Output 07/28/17 07/28/17 07/29/17 15:00 23:00 07:00 Intake Total 1260 ml 960 ml Output Total 500 ml 750 ml Balance 760 ml 210 ml Exam Constitutional: alert, oriented, well developed Psych: nl mood/affect, no complaints Head: atraumatic, normocephalic Eyes: EOMI, PERRL, nl conjunctiva, nl lids, nl sclera ENMT: nl external ears & nose, nl lips & teeth, nl nasal mucosa & septum Neck: non-tender, supple Respiratory: clear to auscultation, normal air movement Cardiovascular: nl pulses, regular rate and rhythm Gastrointestinal: nl liver, spleen, non-tender, soft Musculoskeletal: nl extremities to inspection, nl gait and stance Extremities: normal pulses 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-XII intact, nl mental status, nl speech, nl strength Skin: nl turgor, No rash or lesions Lymph: nl lymph nodes Results Result Diagram: 07/29/17 0554 07/29/17 0554 Results 24 hrs Laboratory Tests Test 07/28/17 18:29 07/28/17 22:00 07/29/17 00:41 07/29/17 05:53 Bedside Glucose 175 164 156 171 Test 07/29/17 05:54 07/29/17 12:09 White Blood Count 6.3 Red Blood Count 3.08 L Hemoglobin 7.7 L Hematocrit 26.5 L Mean Corpuscular Volume 86.0 Mean Corpuscular Hemoglobin 25.0 L Mean Corpuscular Hemoglobin Concent 29.1 L Red Cell Distribution Width 20.4 H Platelet Count 275 Mean Platelet Volume 10.6 H Neutrophils % 73.5 Lymphocytes % 17.1 Monocytes % 6.4 Eosinophils % 1.8 Basophils % 0.2 Nucleated Red Blood Cells % 0.0 Neutrophils # 4.6 Lymphocytes # 1.1 Monocytes # 0.4 Eosinophils # 0.1 Basophils # 0.0 Nucleated Red Blood Cells # 0.0 Sodium Level 141 Potassium Level 4.5 Chloride Level 106 Carbon Dioxide Level 25 Anion Gap 15 Blood Urea Nitrogen 25 H Creatinine 0.74 Glucose Level 163 Calcium Level 9.2 Bedside Glucose 180 Medications Medications Current Medications Miscellaneous Information (Pending [facility] Order For Wound Care) This patient stern... PRN PRN XX WOUND CARE; Start 07/22/17 at 03:30 Insulin Aspart (Novolog Insulin Pen) NOVOLOG *MILD* ALGORI... Q6 SC Last administered on 07/29/17 12:19; Admin Dose 1 UNIT; Start 07/22/17 at 06:00 Acetaminophen (Tylenol Tab) 650 mg Q4 PRN GTB ELEVATED TEMPERATURE Last administered on 07/28/17 09:05; Admin Dose 650 MG; Start 07/22/17 at 05:30 Ascorbic Acid (Vitamin C) 500 mg Q8 GTB Last administered on 07/29/17 14:14; Admin Dose 500 MG; Start 07/22/17 at 06:00 Baclofen (Lioresal) 20 mg TID GTB Last administered on 07/29/17 14:14; Admin Dose 20 MG; Start 07/22/17 at 09:00 Bisacodyl (Dulcolax Supp) 10 mg DAILY PRN [place] CONSTIPATION; Start 07/22/17 at 05:30 Docusate Sodium (Colace Liquid Cup) 100 mg BID GTB Last administered on 09:14; Admin Dose 100 MG; Start 07/22/17 at 09:00 Epoetin Andrey (Epogen (Esrd)) 15,000 units MoWeFr@17 SC Last administered on 18:30; Admin Dose 15,000 UNITS; Start 07/24/17 at 17:00 Magnesium Hydroxide (Milk Of Mag) 30 ml Q24H PRN PO CONSTIPATION; Start at 05:30 Magnesium Oxide (Mag-Ox 400) 800 mg DAILY GTB Last administered on 07/29/17 09:16; Admin Dose 800 MG; Start 07/22/17 at 09:00 Metoclopramide HCl (Reglan) 10 mg BID GTB Last administered on 07/29/17 09:15 ; Admin Dose 10 MG; Start 07/22/17 at 09:00 Mineral Oil (Fleet Mineral Oil Enema) 133 ml DAILY PRN [place] CONSTIPATION; Start 07/22/17 at 05:30 Multivitamins Therapeutic (Theragran) 1 tab DAILY GTB Last administered on 09:15; Admin Dose 1 TAB; Start 07/22/17 at 09:00 Sucralfate (Carafate) 1 gm DAILY GTB Last administered on 07/29/17 09:15; Admin Dose 1 GM; Start 07/22/17 at 09:00 Tramadol HCl (Ultram) 100 mg DAILY GTB Last administered on 07/29/17 09:25; Admin Dose 100 MG; Start 07/22/17 at 09:00 Acetaminophen/ Hydrocodone Bitart ([place] (5/325)) 1 tab Q6H PRN GTB PAIN LEVEL 7-10; Start 07/22/17 at 05:30 Miscellaneous Information 1 ea NOTE XX ; Start 07/22/17 at 15:00 Glucose (Glutose) 15 gm Q15M PRN PO DECREASED GLUCOSE; Start 07/22/17 at 15:00 Glucose (Glutose) 22.5 gm Q15M PRN PO DECREASED GLUCOSE; Start 07/22/17 at 15: 00 Dextrose (D50w Syringe) 25 ml Q15M PRN IV DECREASED GLUCOSE; Start 07/22/17 at 15:00 Dextrose (D50w Syringe) 50 ml Q15M PRN IV DECREASED GLUCOSE; Start 07/22/17 at 15:00 Glucagon (Glucagen) 1 mg Q15M PRN IM DECREASED GLUCOSE; Start 07/22/17 at 15: 00 Glucose (Glutose) 15 gm Q15M PRN BUCCAL DECREASED GLUCOSE; Start 07/22/17 at 15:00 Insulin Human NPH (Humulin N) 6 unit Q6 SC Last administered on 07/29/17 12: 18; Admin Dose 6 UNIT; Start 07/23/17 at 18:00 Linezolid (Zyvox) 600 mg BID PO Last administered on 07/29/17 09:15; Admin Dose 600 MG; Start 07/23/17 at 21:00 Fluconazole (Diflucan) 100 mg DAILY PO Last administered on 07/29/17 09:15; Admin Dose 100 MG; Start 07/25/17 at 09:00 Insulin Glargine 25 unit 25 unit DAILY@20 SC Last administered on 07/28/17 22 :38; Admin Dose 25 UNIT; Start 07/24/17 at 20:00 Colistimethate Sodium/Sodium Chloride (Coly-Mycin/NS) 100 ml @ 200 mls/hr Q12 IVPB Last administered on 07/29/17 09:14; Admin Dose 200 MLS/HR; Start 07/26 at 21:00 Sodium Hypochlorite (Dakin'S (Dilute 1/40%)) 1 applic BID IRR Last administered on 07/28/17 22:45; Admin Dose 1 APPLIC; Start 07/26/17 at 21:00 Lansoprazole (Prevacid) 30 mg BID@06,18 PO Last administered on 07/29/17 05: 55; Admin Dose 30 MG; Start 07/26/17 at 18:00 Zinc Sulfate (Zinc Sulfate) 220 mg DAILY GTB Last administered on 07/29/17 09 :16; Admin Dose 220 MG; Start 07/29/17 at 09:00 Ascorbic Acid (Vitamin C) 500 mg DAILY GTB Last administered on 07/29/17 09: 16; Admin Dose 500 MG; Start 07/29/17 at 09:00 HELENA NASH MD Jul 29, 2017 15:37
--- NOTE | 2017-07-29 17:40 | PN ---
Date/Time of Note Date/Time of Note DATE: 07/29/17 TIME: 17:35 Assessment/Plan VTE Prophylaxis VTE Prophylaxis Intervention: other Lines/Catheters IV Catheter Type (from Nrsg): PICC Line Central line still needed: Yes Urinary Cath still in place: Yes Reason Cath still needed: urinary retention Assessment/Plan Assessment/Plan 1. Acute kidney injury due to ATN From sepsis + prerenal azotemia 2. Sepsis due to UTI 3. Chronic resp failure s/p Tracheostomy on ventilator 4/ Anemia of chronic disease 5/ HTN 6. UTI with Urine cx growing Gram negative rods Plan : Cr normal now continue Tube feeding as ordered ID following abx as per ID, pt is growing pseudomonas on Urine cx, and wound cx growing teresita, MRSA, acinetobacter IV abx colistin- renally dose all abx will follow up Dw Dr Marlon Blue/staff Subjective 24 Hr Interval Summary Free Text/Dictation resting, seems comfortable, Bun 25, Cr -- wnl., sacral wound is infected- ID follows- dw staff Subjective hx not possible: pt non-verbal Constitutional: requiring IVF, requiring O2 Exam/Review of Systems Vital Signs Vitals Vital Signs Date Time Temp Pulse Resp B/P Pulse Ox O2 Delivery O2 Flow Rate FiO2 07/29/17 17:01 100.4 107 18 107/59 100 07/29/17 11:06 30 Intake and Output 07/28/17 07/28/17 07/29/17 15:00 23:00 07:00 Intake Total 1260 ml 960 ml Output Total 500 ml 750 ml Balance 760 ml 210 ml Exam Constitutional: non-verbal Respiratory: diminished breath sounds Gastrointestinal: other (gt intact), soft Musculoskeletal: muscle weakness Neurological: unresponsive Results Result Diagram: 07/29/17 0554 07/29/17 0554 Results 24 hrs Laboratory Tests Test 07/28/17 18:29 07/28/17 22:00 07/29/17 00:41 07/29/17 05:53 Bedside Glucose 175 164 156 171 Test 07/29/17 05:54 07/29/17 12:09 White Blood Count 6.3 Red Blood Count 3.08 L Hemoglobin 7.7 L Hematocrit 26.5 L Mean Corpuscular Volume 86.0 Mean Corpuscular Hemoglobin 25.0 L Mean Corpuscular Hemoglobin Concent 29.1 L Red Cell Distribution Width 20.4 H Platelet Count 275 Mean Platelet Volume 10.6 H Neutrophils % 73.5 Lymphocytes % 17.1 Monocytes % 6.4 Eosinophils % 1.8 Basophils % 0.2 Nucleated Red Blood Cells % 0.0 Neutrophils # 4.6 Lymphocytes # 1.1 Monocytes # 0.4 Eosinophils # 0.1 Basophils # 0.0 Nucleated Red Blood Cells # 0.0 Sodium Level 141 Potassium Level 4.5 Chloride Level 106 Carbon Dioxide Level 25 Anion Gap 15 Blood Urea Nitrogen 25 H Creatinine 0.74 Glucose Level 163 Calcium Level 9.2 Bedside Glucose 180 Medications Medications Current Medications Miscellaneous Information (Pending [facility] Order For Wound Care) This patient stern... PRN PRN XX WOUND CARE; Start 07/22/17 at 03:30 Insulin Aspart (Novolog Insulin Pen) NOVOLOG *MILD* ALGORI... Q6 SC Last administered on 07/29/17 17:29; Admin Dose 1 UNIT; Start 07/22/17 at 06:00 Acetaminophen (Tylenol Tab) 650 mg Q4 PRN GTB ELEVATED TEMPERATURE Last administered on 07/28/17 09:05; Admin Dose 650 MG; Start 07/22/17 at 05:30 Ascorbic Acid (Vitamin C) 500 mg Q8 GTB Last administered on 07/29/17 14:14; Admin Dose 500 MG; Start 07/22/17 at 06:00 Baclofen (Lioresal) 20 mg TID GTB Last administered on 07/29/17 14:14; Admin Dose 20 MG; Start 07/22/17 at 09:00 Bisacodyl (Dulcolax Supp) 10 mg DAILY PRN [place] CONSTIPATION; Start 07/22/17 at 05:30 Docusate Sodium (Colace Liquid Cup) 100 mg BID GTB Last administered on 09:14; Admin Dose 100 MG; Start 07/22/17 at 09:00 Epoetin Andrey (Epogen (Esrd)) 15,000 units MoWeFr@17 SC Last administered on 18:30; Admin Dose 15,000 UNITS; Start 07/24/17 at 17:00 Magnesium Hydroxide (Milk Of Mag) 30 ml Q24H PRN PO CONSTIPATION; Start at 05:30 Magnesium Oxide (Mag-Ox 400) 800 mg DAILY GTB Last administered on 07/29/17 09:16; Admin Dose 800 MG; Start 07/22/17 at 09:00 Metoclopramide HCl (Reglan) 10 mg BID GTB Last administered on 07/29/17 09:15 ; Admin Dose 10 MG; Start 07/22/17 at 09:00 Mineral Oil (Fleet Mineral Oil Enema) 133 ml DAILY PRN [place] CONSTIPATION; Start 07/22/17 at 05:30 Multivitamins Therapeutic (Theragran) 1 tab DAILY GTB Last administered on 09:15; Admin Dose 1 TAB; Start 07/22/17 at 09:00 Sucralfate (Carafate) 1 gm DAILY GTB Last administered on 07/29/17 09:15; Admin Dose 1 GM; Start 07/22/17 at 09:00 Tramadol HCl (Ultram) 100 mg DAILY GTB Last administered on 07/29/17 09:25; Admin Dose 100 MG; Start 07/22/17 at 09:00 Acetaminophen/ Hydrocodone Bitart ([place] (5/325)) 1 tab Q6H PRN GTB PAIN LEVEL 7-10; Start 07/22/17 at 05:30 Miscellaneous Information 1 ea NOTE XX ; Start 07/22/17 at 15:00 Glucose (Glutose) 15 gm Q15M PRN PO DECREASED GLUCOSE; Start 07/22/17 at 15:00 Glucose (Glutose) 22.5 gm Q15M PRN PO DECREASED GLUCOSE; Start 07/22/17 at 15: 00 Dextrose (D50w Syringe) 25 ml Q15M PRN IV DECREASED GLUCOSE; Start 07/22/17 at 15:00 Dextrose (D50w Syringe) 50 ml Q15M PRN IV DECREASED GLUCOSE; Start 07/22/17 at 15:00 Glucagon (Glucagen) 1 mg Q15M PRN IM DECREASED GLUCOSE; Start 07/22/17 at 15: 00 Glucose (Glutose) 15 gm Q15M PRN BUCCAL DECREASED GLUCOSE; Start 07/22/17 at 15:00 Insulin Human NPH (Humulin N) 6 unit Q6 SC Last administered on 07/29/17 17: 28; Admin Dose 6 UNIT; Start 07/23/17 at 18:00 Linezolid (Zyvox) 600 mg BID PO Last administered on 07/29/17 09:15; Admin Dose 600 MG; Start 07/23/17 at 21:00 Fluconazole (Diflucan) 100 mg DAILY PO Last administered on 07/29/17 09:15; Admin Dose 100 MG; Start 07/25/17 at 09:00 Insulin Glargine 25 unit 25 unit DAILY@20 SC Last administered on 07/28/17 22 :38; Admin Dose 25 UNIT; Start 07/24/17 at 20:00 Colistimethate Sodium/Sodium Chloride (Coly-Mycin/NS) 100 ml @ 200 mls/hr Q12 IVPB Last administered on 07/29/17 09:14; Admin Dose 200 MLS/HR; Start 07/26 at 21:00 Sodium Hypochlorite (Dakin'S (Dilute 1/40%)) 1 applic BID IRR Last administered on 07/29/17 16:30; Admin Dose 1 APPLIC; Start 07/26/17 at 21:00 Lansoprazole (Prevacid) 30 mg BID@06,18 PO Last administered on 07/29/17 17: 24; Admin Dose 30 MG; Start 07/26/17 at 18:00 Zinc Sulfate (Zinc Sulfate) 220 mg DAILY GTB Last administered on 07/29/17 09 :16; Admin Dose 220 MG; Start 07/29/17 at 09:00 Ascorbic Acid (Vitamin C) 500 mg DAILY GTB Last administered on 07/29/17 09: 16; Admin Dose 500 MG; Start 07/29/17 at 09:00 KATE LANDAVERDE Jul 29, 2017 17:40
--- NOTE | 2017-07-29 18:09 | PN ---
Date/Time of Note Date/Time of Note DATE: 07/29/17 TIME: 18:08 Assessment/Plan Lines/Catheters IV Catheter Type (from Nrsg): PICC Line Joel in Place (from Nrsg): Yes Assessment/Plan Chief Complaint/Hosp Course 1. Multiple wound: 2/2 immobility; cultures noted -debridement -local care -frequent turning and off-loading -low air loss mattress -vitamin c -short term zinc -optimize nutrition 2. Hypochromic anemia: no acute bleed noted -monitor -transfuse as needed 3. UTI: -abx per sensitivity -frequent bladder emptying/cath care 4. VDRF -pulm toilet -respiratory treatments Thank you, Problems: Subjective 24 Hr Interval Summary Low grade fever. Appears comfortable on vent. Non verbal indicators of pain not present. No congested cough, change in tele rhythm, vomiting, bloating, rashes. Bowel function. Exam/Review of Systems Vital Signs Vitals Vital Signs Date Time Temp Pulse Resp B/P Pulse Ox O2 Delivery O2 Flow Rate FiO2 07/29/17 17:01 100.4 107 18 107/59 100 07/29/17 16:55 30 Intake and Output 07/28/17 07/28/17 07/29/17 15:00 23:00 07:00 Intake Total 1260 ml 960 ml Output Total 500 ml 750 ml Balance 760 ml 210 ml Exam Free Text/Dictation Constitutional: alert, other (nonverbal) Head: atraumatic, normocephalic Eyes: nl lids, nl sclera, No icteric ENMT: mucosa pink and moist, nl nasal mucosa & septum Neck: non-tender, other (trach), supple Respiratory: other (vent), No labored breathing Cardiovascular: regular rate and rhythm Gastrointestinal: non-tender, other (peg; umbilical hernia, rotund), soft Extremities: normal pulses, other (stiffness) Neurological: other (withdraws from painful stimuli) Skin: other (multiple wounds: min drainage, min odor) Results Result Diagram: 07/29/17 0554 07/29/17 0554 SARAH HIGH MD Jul 29, 2017 18:08
[2017-07-29] MEDS: INSULIN GLARGINE [LANtus] 3 ML PEN SC SCH (21:40)
[2017-07-30] VITALS (24 sets, daily range): BP systolic 95–115; BP diastolic 48–65; PULSE 82–116; RESP 10–22
[2017-07-30] MEDS: INSULIN ASPART [NOVOLOG] 3 ML PEN SC SCH ×4 (01:13→17:20)
[2017-07-30] MEDS: NPH, HUMAN INSULIN ISOPHANE 3ML VIAL SC SCH ×4 (01:14→17:19)
[2017-07-30] MEDS: LANSOPRAZOLE 30 MG CAP PO SCH ×2 (05:45→17:11)
[2017-07-30] MEDS: ASCORBIC ACID 500 MG TAB GTB SCH ×4 (05:46→20:56)
[2017-07-30] MEDS: SUCRALFATE 1 GM TAB GTB SCH (08:16)
[2017-07-30] MEDS: FLUCONAZOLE 100 MG TAB PO SCH (08:17)
[2017-07-30] MEDS: traMADol 50 MG TAB GTB SCH (08:17)
[2017-07-30] MEDS: BACLOFEN 10 MG TAB GTB SCH ×3 (08:17→20:47)
[2017-07-30] MEDS: DOCUSATE SODIUM 10 MG/ML (10ML CUP) GTB SCH ×2 (08:17→20:46)
[2017-07-30] MEDS: ACETAMINOPHEN 325 MG TAB GTB PRN (08:17)
[2017-07-30] MEDS: MULTIVITAMINS THERAPEUTIC TAB GTB SCH (08:18)
[2017-07-30] MEDS: MAGNESIUM OXIDE 400 MG TAB GTB SCH (08:19)
[2017-07-30] MEDS: ZYVOX 600 MG TAB PO SCH ×2 (08:19→20:46)
[2017-07-30] MEDS: ZINC SULFATE 220 MG CAP GTB SCH (08:19)
[2017-07-30] MEDS: METOCLOPRAMIDE 10 MG TAB GTB SCH ×2 (08:19→20:47)
[2017-07-30] MEDS: SODIUM HYPOCHLORITE 1/40% 1L IRRIG IRR SCH ×2 (08:26→20:47)
[2017-07-30] MEDS: COLISTIMETHATE 75 MG in SOD CHLORIDE 0.9% 100 ML IVPB SCH ×2 (08:28→20:56)
--- NOTE | 2017-07-30 10:51 | CONS ---
Date/Time of Note Date/Time of Note DATE: 07/30/17 TIME: 10:50 Consult Date/Type/Reason Admit Date/Time Jul 21, 2017 at 23:24 Initial Consult Date 07/22/17 Type of Consultation: Pulmonary Ordering Provider: FLEX DENNISON NP Subjective Patient comfortable. No new events. Objective Vital Signs Date Time Temp Pulse Resp B/P Pulse Ox O2 Delivery O2 Flow Rate FiO2 07/30/17 09:54 30 07/30/17 08:25 116 07/30/17 08:05 102.3 18 107/57 100 Intake and Output 07/29/17 07/29/17 07/30/17 15:00 23:00 07:00 Intake Total 100 ml 1050 ml 960 ml Output Total 1200 ml 1160 ml Balance 100 ml -150 ml -200 ml Exam PHYSICAL EXAMINATION GENERAL: Chronically ill-appearing lady comfortable at rest no acute distress VITAL SIGNS: see below. HEENT: Pupils equal, round, and reactive to light. Tracheostomy site clean and intact. CARDIAC: S1, S2, 1/6 systolic ejection murmur CHEST: Diminished air entry bilaterally. ABDOMEN: Mildly distended. Bowel sounds present no guarding or rebound EXTREMITIES: No cyanosis, clubbing edema +1 NEUROLOGIC: Generalized weakness Results/Medications Result Diagram: 07/29/17 0554 07/29/17 0554 Results 24 hrs Laboratory Tests Test 07/29/17 12:09 07/29/17 17:23 07/29/17 21:32 07/30/17 05:44 Bedside Glucose 180 168 198 157 Medications Current Medications Miscellaneous Information [facility] This patient stern... PRN PRN XX WOUND CARE; Start 07/22/17 at 03:30 Insulin Aspart (Novolog Insulin Pen) NOVOLOG *MILD* ALGORI... Q6 SC Last administered on 07/30/17 05:49; Admin Dose 1 UNIT; Start 07/22/17 at 06:00 Acetaminophen (Tylenol Tab) 650 mg Q4 PRN GTB ELEVATED TEMPERATURE Last administered on 07/30/17 08:17; Admin Dose 650 MG; Start 07/22/17 at 05:30 Ascorbic Acid (Vitamin C) 500 mg Q8 GTB Last administered on 07/30/17 05:46; Admin Dose 500 MG; Start 07/22/17 at 06:00 Baclofen (Lioresal) 20 mg TID GTB Last administered on 07/30/17 08:17; Admin Dose 20 MG; Start 07/22/17 at 09:00 Bisacodyl (Dulcolax Supp) 10 mg DAILY PRN [place] CONSTIPATION; Start 07/22/17 at 05:30 Docusate Sodium (Colace Liquid Cup) 100 mg BID GTB Last administered on 08:17; Admin Dose 100 MG; Start 07/22/17 at 09:00 Epoetin Andrey (Epogen (Esrd)) 15,000 units MoWeFr@17 SC Last administered on 18:30; Admin Dose 15,000 UNITS; Start 07/24/17 at 17:00 Magnesium Hydroxide (Milk Of Mag) 30 ml Q24H PRN PO CONSTIPATION; Start at 05:30 Magnesium Oxide (Mag-Ox 400) 800 mg DAILY GTB Last administered on 07/30/17 08:19; Admin Dose 800 MG; Start 07/22/17 at 09:00 Metoclopramide HCl (Reglan) 10 mg BID GTB Last administered on 07/30/17 08:19 ; Admin Dose 10 MG; Start 07/22/17 at 09:00 Mineral Oil (Fleet Mineral Oil Enema) 133 ml DAILY PRN [place] CONSTIPATION; Start 07/22/17 at 05:30 Multivitamins Therapeutic (Theragran) 1 tab DAILY GTB Last administered on 08:18; Admin Dose 1 TAB; Start 07/22/17 at 09:00 Sucralfate (Carafate) 1 gm DAILY GTB Last administered on 07/30/17 08:16; Admin Dose 1 GM; Start 07/22/17 at 09:00 Tramadol HCl (Ultram) 100 mg DAILY GTB Last administered on 07/30/17 08:17; Admin Dose 100 MG; Start 07/22/17 at 09:00 Acetaminophen/ Hydrocodone Bitart ([place] (5/325)) 1 tab Q6H PRN GTB PAIN LEVEL 7-10; Start 07/22/17 at 05:30 Miscellaneous Information 1 ea NOTE XX ; Start 07/22/17 at 15:00 Glucose (Glutose) 15 gm Q15M PRN PO DECREASED GLUCOSE; Start 07/22/17 at 15:00 Glucose (Glutose) 22.5 gm Q15M PRN PO DECREASED GLUCOSE; Start 07/22/17 at 15: 00 Dextrose (D50w Syringe) 25 ml Q15M PRN IV DECREASED GLUCOSE; Start 07/22/17 at 15:00 Dextrose (D50w Syringe) 50 ml Q15M PRN IV DECREASED GLUCOSE; Start 07/22/17 at 15:00 Glucagon (Glucagen) 1 mg Q15M PRN IM DECREASED GLUCOSE; Start 07/22/17 at 15: 00 Glucose (Glutose) 15 gm Q15M PRN BUCCAL DECREASED GLUCOSE; Start 07/22/17 at 15:00 Insulin Human NPH (Humulin N) 6 unit Q6 SC Last administered on 07/30/17 06: 18; Admin Dose 6 UNIT; Start 07/23/17 at 18:00 Linezolid (Zyvox) 600 mg BID PO Last administered on 07/30/17 08:19; Admin Dose 600 MG; Start 07/23/17 at 21:00 Fluconazole (Diflucan) 100 mg DAILY PO Last administered on 07/30/17 08:17; Admin Dose 100 MG; Start 07/25/17 at 09:00 Insulin Glargine 25 unit 25 unit DAILY@20 SC Last administered on 07/29/17 21 :40; Admin Dose 25 UNIT; Start 07/24/17 at 20:00 Colistimethate Sodium/Sodium Chloride (Coly-Mycin/NS) 100 ml @ 200 mls/hr Q12 IVPB Last administered on 07/30/17 08:28; Admin Dose 200 MLS/HR; Start 07/26 at 21:00 Sodium Hypochlorite (Dakin'S (Dilute 1/40%)) 1 applic BID IRR Last administered on 07/30/17 08:26; Admin Dose 1 APPLIC; Start 07/26/17 at 21:00 Lansoprazole (Prevacid) 30 mg BID@06,18 PO Last administered on 07/30/17 05: 45; Admin Dose 30 MG; Start 07/26/17 at 18:00 Zinc Sulfate (Zinc Sulfate) 220 mg DAILY GTB Last administered on 07/30/17 08 :19; Admin Dose 220 MG; Start 07/29/17 at 09:00 Ascorbic Acid (Vitamin C) 500 mg DAILY GTB Last administered on 07/30/17t 08: 17; Admin Dose 500 MG; Start 07/29/17 at 09:00 Assessment/Plan Chief Complaint/Hosp Course Additional Assessment/Plan IMP: 1. Anemia--workup in place. 2. Urosepsis 3. VDRF 4. Encephalopathy RECS: 1. Vent support 2. BD's/CPT 3. Abx per ID 4. GIB w/u per GI DC planning okay from pulmonary standpoint Problems: ULYSSES FORRESTER [facility] Jul 30, 2017 10:51
--- NOTE | 2017-07-30 10:59 | PN ---
Date/Time of Note Date/Time of Note DATE: 07/30/17 TIME: 10:59 Assessment/Plan VTE Prophylaxis VTE Prophylaxis Intervention: other Lines/Catheters [facility] P[facility] Line Central line still needed: Yes Urinary Cath still in place: Yes Reason Cath still needed: skin wounds contaminated by urine Assessment/Plan Chief Complaint/Hosp Course -Sepsis secondary to UTI . Continue antibiotics per ID . Dr. Zavaleta is following in infection disease consultation. -Anemia of chronic disease, continue Epogen. Dr. Ruiz is following in gastroenterology consultation. -Advanced multiple sclerosis -Ventilator dependent respiratory failure. Dr. Blackwell is following in pulmonology consultation. -Dysphagia with PEG -Multiple decubitus ulcer, continue wound care per wound care consult. Dr. High is following in general surgery consultation. -Acute on chronic encephalopathy. Problems: Subjective 24 Hr Interval Summary Free Text/Dictation Patient has no complaints Exam/Review of Systems Vital Signs Vitals Vital Signs Date Time Temp Pulse Resp B/P Pulse Ox O2 Delivery O2 Flow Rate FiO2 07/30/17 09:54 30 07/30/17 08:25 116 07/30/17 08:05 102.3 18 107/57 100 Intake and Output 07/29/17 07/29/17 07/30/17 15:00 23:00 07:00 Intake Total 100 ml 1050 ml 960 ml Output Total 1200 ml 1160 ml Balance 100 ml -150 ml -200 ml Exam Constitutional: well developed Head: atraumatic, normocephalic Neck: supple Respiratory: diminished breath sounds Cardiovascular: regular rate and rhythm Gastrointestinal: non-tender, soft Extremities: normal pulses Results Result Diagram: 07/29/17 0554 07/29/17 0554 Results 24 hrs Laboratory Tests Test 07/29/17 12:09 07/29/17 17:23 07/29/17 21:32 07/30/17 05:44 Bedside Glucose 180 168 198 157 Medications Medications Current Medications Miscellaneous Information (Pending [facility] Order For Wound Care) This patient stern... PRN PRN XX WOUND CARE; Start 07/22/17 at 03:30 Insulin Aspart (Novolog Insulin Pen) NOVOLOG *MILD* ALGORI... Q6 SC Last administered on 07/30/17t 05:49; Admin Dose 1 UNIT; Start 07/22/17 at 06:00 Acetaminophen (Tylenol Tab) 650 mg Q4 PRN GTB ELEVATED TEMPERATURE Last administered on 07/30/17 08:17; Admin Dose 650 MG; Start 07/22/17 at 05:30 Ascorbic Acid (Vitamin C) 500 mg Q8 GTB Last administered on 07/30/17 05:46; Admin Dose 500 MG; Start 07/22/17 at 06:00 Baclofen (Lioresal) 20 mg TID GTB Last administered on 07/30/17 08:17; Admin Dose 20 MG; Start 07/22/17 at 09:00 Bisacodyl (Dulcolax Supp) 10 mg DAILY PRN [place] CONSTIPATION; Start 07/22/17 at 05:30 Docusate Sodium (Colace Liquid Cup) 100 mg BID GTB Last administered on 08:17; Admin Dose 100 MG; Start 07/22/17 at 09:00 Epoetin Andrey (Epogen (Esrd)) 15,000 units MoWeFr@17 SC Last administered on 18:30; Admin Dose 15,000 UNITS; Start 07/24/17 at 17:00 Magnesium Hydroxide (Milk Of Mag) 30 ml Q24H PRN PO CONSTIPATION; Start at 05:30 Magnesium Oxide (Mag-Ox 400) 800 mg DAILY GTB Last administered on 07/30/17 08:19; Admin Dose 800 MG; Start 07/22/17 at 09:00 Metoclopramide HCl (Reglan) 10 mg BID GTB Last administered on 07/30/17 08:19 ; Admin Dose 10 MG; Start 07/22/17 at 09:00 Mineral Oil (Fleet Mineral Oil Enema) 133 ml DAILY PRN [place] CONSTIPATION; Start 07/22/17 at 05:30 Multivitamins Therapeutic (Theragran) 1 tab DAILY GTB Last administered on 08:18; Admin Dose 1 TAB; Start 07/22/17 at 09:00 Sucralfate (Carafate) 1 gm DAILY GTB Last administered on 07/30/17 08:16; Admin Dose 1 GM; Start 07/22/17 at 09:00 Tramadol HCl (Ultram) 100 mg DAILY GTB Last administered on 07/30/17 08:17; Admin Dose 100 MG; Start 07/22/17 at 09:00 Acetaminophen/ Hydrocodone Bitart ([place] (5/325)) 1 tab Q6H PRN GTB PAIN LEVEL 7-10; Start 07/22/17 at 05:30 Miscellaneous Information 1 ea NOTE XX ; Start 07/22/17 at 15:00 Glucose (Glutose) 15 gm Q15M PRN PO DECREASED GLUCOSE; Start 07/22/17 at 15:00 Glucose (Glutose) 22.5 gm Q15M PRN PO DECREASED GLUCOSE; Start 07/22/17 at 15: 00 Dextrose (D50w Syringe) 25 ml Q15M PRN IV DECREASED GLUCOSE; Start 07/22/17 at 15:00 Dextrose (D50w Syringe) 50 ml Q15M PRN IV DECREASED GLUCOSE; Start 07/22/17 at 15:00 Glucagon (Glucagen) 1 mg Q15M PRN IM DECREASED GLUCOSE; Start 07/22/17 at 15: 00 Glucose (Glutose) 15 gm Q15M PRN BUCCAL DECREASED GLUCOSE; Start 07/22/17 at 15:00 Insulin Human NPH (Humulin N) 6 unit Q6 SC Last administered on 07/30/17 06: 18; Admin Dose 6 UNIT; Start 07/23/17 at 18:00 Linezolid (Zyvox) 600 mg BID PO Last administered on 07/30/17 08:19; Admin Dose 600 MG; Start 07/23/17 at 21:00 Fluconazole (Diflucan) 100 mg DAILY PO Last administered on 07/30/17 08:17; Admin Dose 100 MG; Start 07/25/17 at 09:00 Insulin Glargine 25 unit 25 unit DAILY@20 SC Last administered on 07/29/17 21 :40; Admin Dose 25 UNIT; Start 07/24/17 at 20:00 Colistimethate Sodium/Sodium Chloride (Coly-Mycin/NS) 100 ml @ 200 mls/hr Q12 IVPB Last administered on 07/30/17 08:28; Admin Dose 200 MLS/HR; Start 07/26 at 21:00 Sodium Hypochlorite (Dakin'S (Dilute 1/40%)) 1 applic BID IRR Last administered on 07/30/17 08:26; Admin Dose 1 APPLIC; Start 07/26/17 at 21:00 Lansoprazole (Prevacid) 30 mg BID@06,18 PO Last administered on 07/30/17 05: 45; Admin Dose 30 MG; Start 07/26/17 at 18:00 Zinc Sulfate (Zinc Sulfate) 220 mg DAILY GTB Last administered on 07/30/17 08 :19; Admin Dose 220 MG; Start 07/29/17 at 09:00 Ascorbic Acid (Vitamin C) 500 mg DAILY GTB Last administered on 07/30/17 08: 17; Admin Dose 500 MG; Start 07/29/17 at 09:00 HESHAM KC Jul 30, 2017 10:59
--- NOTE | 2017-07-30 12:23 | CONS ---
Date/Time of Note Date/Time of Note DATE: 07/30/17 TIME: 12:13 Assessment/Plan Assessment/Plan Additional Assessment/Plan 1. Acute kidney injury due to ATN From sepsis + prerenal azotemia - uo 1250 ml/24 hr 2. Sepsis due to UTI 3. Chronic resp failure s/p Tracheostomy on ventilator 4/ Anemia of chronic disease- monitor H/H. Transfuse PRN 5/ HTN 6. UTI with Urine cx growing Gram negative rods Plan : Cr normal now continue Tube feeding as ordered ID following abx as per ID, pt is growing pseudomonas on Urine cx, and wound cx growing teresita, MRSA, acinetobacter IV abx colistin- renally dose all abx will follow up Dw Dr Marlon Blue/staff Consultation Date/Type/Reason Admit Date/Time Jul 21, 2017 at 23:24 Initial Consult Date 07/26/17 Type of Consultation: Pulmonary Referring Provider: FLEX DENNISON [employer]WING MACHINE OPERATOR FLOORPERSON 24 HR Interval Summary Free Text/Dictation remains on trach to vent, afebrile, UO 1250 ml/24 hr. no new issues overnight reported by staff Subjective hx not possible: pt non-verbal Constitutional: requiring IVF, requiring O2 Exam/Review of Systems Vital Signs Vitals Vital Signs Date Time Temp Pulse Resp B/P Pulse Ox O2 Delivery O2 Flow Rate FiO2 07/30/17 11:00 91 15 99 30 07/30/17 08:05 102.3 107/57 Intake and Output 07/29/17 07/29/17 07/30/17 15:00 23:00 07:00 Intake Total 100 ml 1050 ml 960 ml Output Total 1200 ml 1160 ml Balance 100 ml -150 ml -200 ml Exam Constitutional: non-verbal Respiratory: diminished breath sounds Gastrointestinal: other (gt intact), soft Musculoskeletal: muscle weakness Extremities: normal pulses Neurological: unresponsive Results Result Diagram: 07/29/17 0554 07/29/17 0554 Results 24 hrs Laboratory Tests Test 07/29/17 17:23 07/29/17 21:32 07/30/17 05:44 07/30/17 12:06 Bedside Glucose 168 198 157 219 Medications Medications Current Medications Miscellaneous Information (Pending [facility] Order For Wound Care) This patient stern... PRN PRN XX WOUND CARE; Start 07/22/17 at 03:30 Insulin Aspart (Novolog Insulin Pen) NOVOLOG *MILD* ALGORI... Q6 SC Last administered on 07/30/17 05:49; Admin Dose 1 UNIT; Start 07/22/17 at 06:00 Acetaminophen (Tylenol Tab) 650 mg Q4 PRN GTB ELEVATED TEMPERATURE Last administered on 07/30/17 08:17; Admin Dose 650 MG; Start 07/22/17 at 05:30 Ascorbic Acid (Vitamin C) 500 mg Q8 GTB Last administered on 07/30/17 05:46; Admin Dose 500 MG; Start 07/22/17 at 06:00 Baclofen (Lioresal) 20 mg TID GTB Last administered on 07/30/17 08:17; Admin Dose 20 MG; Start 07/22/17 at 09:00 Bisacodyl (Dulcolax Supp) 10 mg DAILY PRN [place] CONSTIPATION; Start 07/22/17 at 05:30 Docusate Sodium (Colace Liquid Cup) 100 mg BID GTB Last administered on 08:17; Admin Dose 100 MG; Start 07/22/17 at 09:00 Epoetin Andrey (Epogen (Esrd)) 15,000 units MoWeFr@17 SC Last administered on 18:30; Admin Dose 15,000 UNITS; Start 07/24/17 at 17:00 Magnesium Hydroxide (Milk Of Mag) 30 ml Q24H PRN PO CONSTIPATION; Start at 05:30 Magnesium Oxide (Mag-Ox 400) 800 mg DAILY GTB Last administered on 07/30/17 08:19; Admin Dose 800 MG; Start 07/22/17 at 09:00 Metoclopramide HCl (Reglan) 10 mg BID GTB Last administered on 07/30/17 08:19 ; Admin Dose 10 MG; Start 07/22/17 at 09:00 Mineral Oil (Fleet Mineral Oil Enema) 133 ml DAILY PRN [place] CONSTIPATION; Start 07/22/17 at 05:30 Multivitamins Therapeutic (Theragran) 1 tab DAILY GTB Last administered on 08:18; Admin Dose 1 TAB; Start 07/22/17 at 09:00 Sucralfate (Carafate) 1 gm DAILY GTB Last administered on 07/30/17 08:16; Admin Dose 1 GM; Start 07/22/17 at 09:00 Tramadol HCl (Ultram) 100 mg DAILY GTB Last administered on 07/30/17 08:17; Admin Dose 100 MG; Start 07/22/17 at 09:00 Acetaminophen/ Hydrocodone Bitart ([place] (5/325)) 1 tab Q6H PRN GTB PAIN LEVEL 7-10; Start 07/22/17 at 05:30 Miscellaneous Information 1 ea NOTE XX ; Start 07/22/17 at 15:00 Glucose (Glutose) 15 gm Q15M PRN PO DECREASED GLUCOSE; Start 07/22/17 at 15:00 Glucose (Glutose) 22.5 gm Q15M PRN PO DECREASED GLUCOSE; Start 07/22/17 at 15: 00 Dextrose (D50w Syringe) 25 ml Q15M PRN IV DECREASED GLUCOSE; Start 07/22/17 at 15:00 Dextrose (D50w Syringe) 50 ml Q15M PRN IV DECREASED GLUCOSE; Start 07/22/17 at 15:00 Glucagon (Glucagen) 1 mg Q15M PRN IM DECREASED GLUCOSE; Start 07/22/17 at 15: 00 Glucose (Glutose) 15 gm Q15M PRN BUCCAL DECREASED GLUCOSE; Start 07/22/17 at 15:00 Insulin Human NPH (Humulin N) 6 unit Q6 SC Last administered on 07/30/17 06: 18; Admin Dose 6 UNIT; Start 07/23/17 at 18:00 Linezolid (Zyvox) 600 mg BID PO Last administered on 07/30/17 08:19; Admin Dose 600 MG; Start 07/23/17 at 21:00 Fluconazole (Diflucan) 100 mg DAILY PO Last administered on 07/30/17 08:17; Admin Dose 100 MG; Start 07/25/17 at 09:00 Insulin Glargine 25 unit 25 unit DAILY@20 SC Last administered on 07/29/17 21 :40; Admin Dose 25 UNIT; Start 07/24/17 at 20:00 Colistimethate Sodium/Sodium Chloride (Coly-Mycin/NS) 100 ml @ 200 mls/hr Q12 IVPB Last administered on 07/30/17 08:28; Admin Dose 200 MLS/HR; Start 10/25 /17 at 21:00 Sodium Hypochlorite (Dakin'S (Dilute 1/40%)) 1 applic BID IRR Last administered on 07/30/17 08:26; Admin Dose 1 APPLIC; Start 07/26/17 at 21:00 Lansoprazole (Prevacid) 30 mg BID@06,18 PO Last administered on 07/30/17 05: 45; Admin Dose 30 MG; Start 07/26/17 at 18:00 Zinc Sulfate (Zinc Sulfate) 220 mg DAILY GTB Last administered on 07/30/17 08 :19; Admin Dose 220 MG; Start 07/29/17 at 09:00 Ascorbic Acid (Vitamin C) 500 mg DAILY GTB Last administered on 07/30/17 08: 17; Admin Dose 500 MG; Start 07/29/17 at 09:00 KATE LANDAVERDE Jul 30, 2017 12:23
--- NOTE | 2017-07-30 14:55 | CONS ---
Date/Time of Note Date/Time of Note DATE: 07/30/17 TIME: 14:54 Assessment/Plan Assessment/Plan Additional Assessment/Plan Assessment/Plan Additional Assessment/Plan MPRESSION 1. Anemia, most probably of chronic disease. 2. Decubitus ulcer. 3, Ventilator-dependent respiratory failure. 4. Dysphagia, status post percutaneous endoscopic gastrostomy. 5. UTI PLAN: To continue present care. Debridement as per the surgeon. Monitor H and H. Nutritional support Consultation Date/Type/Reason Admit Date/Time Jul 21, 2017 at 23:24 Initial Consult Date 07/22/17 Type of Consultation: Pulmonary Referring Provider: FLEX DENNISON NP 24 HR Interval Summary Constitutional: improved Exam/Review of Systems Vital Signs Vitals Vital Signs Date Time Temp Pulse Resp B/P Pulse Ox O2 Delivery O2 Flow Rate FiO2 07/30/17 12:27 109 07/30/17 12:12 97.4 18 99/56 100 07/30/17 11:00 30 Intake and Output 07/29/17 07/29/17 07/30/17 15:00 23:00 07:00 Intake Total 100 ml 1050 ml 960 ml Output Total 1200 ml 1160 ml Balance 100 ml -150 ml -200 ml Exam Constitutional: alert, oriented, well developed Psych: nl mood/affect, no complaints Head: atraumatic, normocephalic Eyes: EOMI, PERRL, nl conjunctiva, nl lids, nl sclera ENMT: nl external ears & nose, nl lips & teeth, nl nasal mucosa & septum Neck: non-tender, supple Respiratory: clear to auscultation, normal air movement Cardiovascular: nl pulses, regular rate and rhythm Gastrointestinal: nl liver, spleen, non-tender, soft Musculoskeletal: nl extremities to inspection, nl gait and stance Extremities: normal pulses Neurological: [employer] II-XII intact, nl mental status, nl speech, nl strength Skin: nl turgor, No rash or lesions Lymph: nl lymph nodes Results Result Diagram: 07/29/17 0554 07/29/17 0554 Results 24 hrs Laboratory Tests Test 07/29/17 17:23 07/29/17 21:32 07/30/17 05:44 07/30/17 12:06 Bedside Glucose 168 198 157 219 Medications Medications Current Medications Miscellaneous Information (Pending [facility] Order For Wound Care) This patient stern... PRN PRN XX WOUND CARE; Start 07/22/17 at 03:30 Insulin Aspart (Novolog Insulin Pen) NOVOLOG *MILD* ALGORI... Q6 SC Last administered on 07/30/17 12:16; Admin Dose 2 UNIT; Start 07/22/17 at 06:00 Acetaminophen (Tylenol Tab) 650 mg Q4 PRN GTB ELEVATED TEMPERATURE Last administered on 07/30/17 08:17; Admin Dose 650 MG; Start 07/22/17 at 05:30 Ascorbic Acid (Vitamin C) 500 mg Q8 GTB Last administered on 07/30/17 13:51; Admin Dose 500 MG; Start 07/22/17 at 06:00 Baclofen (Lioresal) 20 mg TID GTB Last administered on 07/30/17 12:07; Admin Dose 20 MG; Start 07/22/17 at 09:00 Bisacodyl (Dulcolax Supp) 10 mg DAILY PRN [place] CONSTIPATION; Start 07/22/17 at 05:30 Docusate Sodium (Colace Liquid Cup) 100 mg BID GTB Last administered on 08:17; Admin Dose 100 MG; Start 07/22/17 at 09:00 Epoetin Andrey (Epogen (Esrd)) 15,000 units MoWeFr@17 SC Last administered on 18:30; Admin Dose 15,000 UNITS; Start 07/24/17 at 17:00 Magnesium Hydroxide (Milk Of Mag) 30 ml Q24H PRN PO CONSTIPATION; Start at 05:30 Magnesium Oxide (Mag-Ox 400) 800 mg DAILY GTB Last administered on 07/30/17 08:19; Admin Dose 800 MG; Start 07/22/17 at 09:00 Metoclopramide HCl (Reglan) 10 mg BID GTB Last administered on 07/30/17 08:19 ; Admin Dose 10 MG; Start 07/22/17 at 09:00 Mineral Oil (Fleet Mineral Oil Enema) 133 ml DAILY PRN [place] CONSTIPATION; Start 07/22/17 at 05:30 Multivitamins Therapeutic (Theragran) 1 tab DAILY GTB Last administered on 08:18; Admin Dose 1 TAB; Start 07/22/17 at 09:00 Sucralfate (Carafate) 1 gm DAILY GTB Last administered on 07/30/17 08:16; Admin Dose 1 GM; Start 07/22/17 at 09:00 Tramadol HCl (Ultram) 100 mg DAILY GTB Last administered on 07/30/17 08:17; Admin Dose 100 MG; Start 07/22/17 at 09:00 Acetaminophen/ Hydrocodone Bitart ([place] (5/325)) 1 tab Q6H PRN GTB PAIN LEVEL 7-10; Start 07/22/17 at 05:30 Miscellaneous Information 1 ea NOTE XX ; Start 07/22/17 at 15:00 Glucose (Glutose) 15 gm Q15M PRN PO DECREASED GLUCOSE; Start 07/22/17 at 15:00 Glucose (Glutose) 22.5 gm Q15M PRN PO DECREASED GLUCOSE; Start 07/22/17 at 15: 00 Dextrose (D50w Syringe) 25 ml Q15M PRN IV DECREASED GLUCOSE; Start 07/22/17 at 15:00 Dextrose (D50w Syringe) 50 ml Q15M PRN IV DECREASED GLUCOSE; Start 07/22/17 at 15:00 Glucagon (Glucagen) 1 mg Q15M PRN IM DECREASED GLUCOSE; Start 07/22/17 at 15: 00 Glucose (Glutose) 15 gm Q15M PRN BUCCAL DECREASED GLUCOSE; Start 07/22/17 at 15:00 Insulin Human NPH (Humulin N) 6 unit Q6 SC Last administered on 07/30/17 12: 11; Admin Dose 6 UNIT; Start 07/23/17 at 18:00 Linezolid (Zyvox) 600 mg BID PO Last administered on 07/30/17 08:19; Admin Dose 600 MG; Start 07/23/17 at 21:00 Fluconazole (Diflucan) 100 mg DAILY PO Last administered on 07/30/17 08:17; Admin Dose 100 MG; Start 07/25/17 at 09:00 Insulin Glargine 25 unit 25 unit DAILY@20 SC Last administered on 07/29/17 21 :40; Admin Dose 25 UNIT; Start 07/24/17 at 20:00 Colistimethate Sodium/Sodium Chloride (Coly-Mycin/NS) 100 ml @ 200 mls/hr Q12 IVPB Last administered on 07/30/17 08:28; Admin Dose 200 MLS/HR; Start 07/26 at 21:00 Sodium Hypochlorite (Dakin'S (Dilute 1/40%)) 1 applic BID IRR Last administered on 07/30/17 08:26; Admin Dose 1 APPLIC; Start 07/26/17 at 21:00 Lansoprazole (Prevacid) 30 mg BID@06,18 PO Last administered on 07/30/17 05: 45; Admin Dose 30 MG; Start 07/26/17 at 18:00 Zinc Sulfate (Zinc Sulfate) 220 mg DAILY GTB Last administered on 07/30/17 08 :19; Admin Dose 220 MG; Start 07/29/17 at 09:00 Ascorbic Acid (Vitamin C) 500 mg DAILY GTB Last administered on 07/30/17 08: 17; Admin Dose 500 MG; Start 07/29/17 at 09:00 HELENA NASH MD Jul 30, 2017 14:55
--- NOTE | 2017-07-30 19:56 | CONS ---
Date/Time of Note Date/Time of Note DATE: 07/30/17 TIME: 19:54 Assessment/Plan Assessment/Plan Chief Complaint/Hosp Course ID PROGRESS NOTE CURRENT ABX=> Coly-Mycin + Zyvox + Diflucan 24H INTERVAL SUMMARY * FEVER THIS AM 89.+ => BCx x2 via PICC Ordered * Pending wound debridement PHYSICAL EXAMINATION: GENERAL: VSS, NAD HEENT: Unremarkable NECK: Supple, trach-> Secure to Vent with scant whitish secretions CHEST: Rise symmetrical, without dyspnea on observation HEART: Pulse RRR ABDOMEN: Soft, Peg EXTREMITIES: Wasted with trace edema. SKIN: With multiple unstageable decubiti. ID ASSESSMENT 56 yo F w/ Advanced multiple sclerosis, encephalopathy, Trach, Peg, functional quadriplegia admit with: 1. Severe sepsis with fevers on and off 2. 07/21/17 BCx (+) 1/2 bottles on admission => COAGULASE NEGATIVE STAPH 3. Complicated recurrent MDRO Pseudomonas (PSAR) early UTI w/low colony count < 10,000 4. HCAP -> CXR 07/28/17: Mild left basilar consolidation, unchanged. 5. Dysphagia-> PEG 6. Multiple infected wounds => Polymicrobial MDRO host 7. Acute renal failure on admission with renal function markedly improved. 8. Hx of diarrhea, hx of fecal impaction (- )MRSA Nares Screen (+) VRE stool colonization INVASIVES: Trach, peg, FC, PICC ABX ALLERGY: PCN, Cephalosporins, Fluoroquinolones, Vanco IV * Reported hx of allergy to Cephalosporins = tolerated Cefepime prior admission without rash noted = doubt true allergy. CURRENT ABX=> Coly-Mycin + Zyvox + Diflucan ID RECOMMENDATIONS 1. Continue current ABX & local wound care 2. BCx x2 via PICC Sent -> Follow up on results 3. 'Wound debridement PRN . Problems: Consultation Date/Type/Reason Admit Date/Time Jul 21, 2017 at 23:24 Initial Consult Date 07/26/17 Type of Consultation: ID Referring Provider: FLEX DENNISON NP Exam/Review of Systems Vital Signs Vitals Vital Signs Date Time Temp Pulse Resp B/P Pulse Ox O2 Delivery O2 Flow Rate FiO2 07/30/17 18:35 98.0 94 16 99/54 100 07/30/17 16:55 30 Intake and Output 07/29/17 07/29/17 07/30/17 15:00 23:00 07:00 Intake Total 100 ml 1050 ml 960 ml Output Total 1200 ml 1160 ml Balance 100 ml -150 ml -200 ml Results Result Diagram: 07/29/17 0554 07/29/17 0554 Results 24 hrs Laboratory Tests Test 07/29/17 21:32 07/30/17 05:44 07/30/17 12:06 07/30/17 17:14 Bedside Glucose 198 157 219 184 Medications Medications Current Medications Miscellaneous Information ([facility] This patient stern... PRN PRN XX WOUND CARE; Start 07/22/17 at 03:30 Insulin Aspart (Novolog Insulin Pen) NOVOLOG *MILD* ALGORI... Q6 SC Last administered on 07/30/17 17:20; Admin Dose 2 UNIT; Start 07/22/17 at 06:00 Acetaminophen (Tylenol Tab) 650 mg Q4 PRN GTB ELEVATED TEMPERATURE Last administered on 07/30/17 08:17; Admin Dose 650 MG; Start 07/22/17 at 05:30 Ascorbic Acid (Vitamin C) 500 mg Q8 GTB Last administered on 07/30/17 13:51; Admin Dose 500 MG; Start 07/22/17 at 06:00 Baclofen (Lioresal) 20 mg TID GTB Last administered on 07/30/17 12:07; Admin Dose 20 MG; Start 07/22/17 at 09:00 Bisacodyl (Dulcolax Supp) 10 mg DAILY PRN [place] CONSTIPATION; Start 07/22/17 at 05:30 Docusate Sodium (Colace Liquid Cup) 100 mg BID GTB Last administered on 08:17; Admin Dose 100 MG; Start 07/22/17 at 09:00 Epoetin Andrey (Epogen (Esrd)) 15,000 units MoWeFr@17 SC Last administered on 18:30; Admin Dose 15,000 UNITS; Start 07/24/17 at 17:00 Magnesium Hydroxide (Milk Of Mag) 30 ml Q24H PRN PO CONSTIPATION; Start at 05:30 Magnesium Oxide (Mag-Ox 400) 800 mg DAILY GTB Last administered on 07/30/17 08:19; Admin Dose 800 MG; Start 07/22/17 at 09:00 Metoclopramide HCl (Reglan) 10 mg BID GTB Last administered on 07/30/17 08:19 ; Admin Dose 10 MG; Start 07/22/17 at 09:00 Mineral Oil (Fleet Mineral Oil Enema) 133 ml DAILY PRN [place] CONSTIPATION; Start 07/22/17 at 05:30 Multivitamins Therapeutic (Theragran) 1 tab DAILY GTB Last administered on 08:18; Admin Dose 1 TAB; Start 07/22/17 at 09:00 Sucralfate (Carafate) 1 gm DAILY GTB Last administered on 07/30/17 08:16; Admin Dose 1 GM; Start 07/22/17 at 09:00 Tramadol HCl (Ultram) 100 mg DAILY GTB Last administered on 07/30/17 08:17; Admin Dose 100 MG; Start 07/22/17 at 09:00 Acetaminophen/ Hydrocodone Bitart ([place] (5/325)) 1 tab Q6H PRN GTB PAIN LEVEL 7-10; Start 07/22/17 at 05:30 Miscellaneous Information 1 ea NOTE XX ; Start 07/22/17 at 15:00 Glucose (Glutose) 15 gm Q15M PRN PO DECREASED GLUCOSE; Start 07/22/17 at 15:00 Glucose (Glutose) 22.5 gm Q15M PRN PO DECREASED GLUCOSE; Start 07/22/17 at 15: 00 Dextrose (D50w Syringe) 25 ml Q15M PRN IV DECREASED GLUCOSE; Start 07/22/17 at 15:00 Dextrose (D50w Syringe) 50 ml Q15M PRN IV DECREASED GLUCOSE; Start 07/22/17 at 15:00 Glucagon (Glucagen) 1 mg Q15M PRN IM DECREASED GLUCOSE; Start 07/22/17 at 15: 00 Glucose (Glutose) 15 gm Q15M PRN BUCCAL DECREASED GLUCOSE; Start 07/22/17 at 15:00 Insulin Human NPH (Humulin N) 6 unit Q6 SC Last administered on 07/30/17 17: 19; Admin Dose 6 UNIT; Start 07/23/17 at 18:00 Linezolid (Zyvox) 600 mg BID PO Last administered on 07/30/17 08:19; Admin Dose 600 MG; Start 07/23/17 at 21:00 Fluconazole (Diflucan) 100 mg DAILY PO Last administered on 07/30/17 08:17; Admin Dose 100 MG; Start 07/25/17 at 09:00 Insulin Glargine 25 unit 25 unit DAILY@20 SC Last administered on 07/29/17 21 :40; Admin Dose 25 UNIT; Start 07/24/17 at 20:00 Colistimethate Sodium/Sodium Chloride (Coly-Mycin/NS) 100 ml @ 200 mls/hr Q12 IVPB Last administered on 07/30/17 08:28; Admin Dose 200 MLS/HR; Start 07/26 at 21:00 Sodium Hypochlorite (Dakin'S (Dilute 1/40%)) 1 applic BID IRR Last administered on 07/30/17 08:26; Admin Dose 1 APPLIC; Start 07/26/17 at 21:00 Lansoprazole (Prevacid) 30 mg BID@06,18 PO Last administered on 07/30/17 17: 11; Admin Dose 30 MG; Start 07/26/17 at 18:00 Zinc Sulfate (Zinc Sulfate) 220 mg DAILY GTB Last administered on 07/30/17 08 :19; Admin Dose 220 MG; Start 07/29/17 at 09:00 Ascorbic Acid (Vitamin C) 500 mg DAILY GTB Last administered on 07/30/17 08: 17; Admin Dose 500 MG; Start 07/29/17 at 09:00 REI BECK NP Jul 30, 2017 19:56
[2017-07-30] MEDS: INSULIN GLARGINE [LANtus] 3 ML PEN SC SCH (20:50)
[2017-07-31] VITALS (24 sets, daily range): BP systolic 97–117; BP diastolic 54–70; PULSE 97–114; RESP 11–20
[2017-07-31] MEDS: INSULIN ASPART [NOVOLOG] 3 ML PEN SC SCH ×4 (00:19→17:50)
[2017-07-31] MEDS: NPH, HUMAN INSULIN ISOPHANE 3ML VIAL SC SCH ×4 (00:19→17:49)
[2017-07-31] MEDS: ASCORBIC ACID 500 MG TAB GTB SCH ×4 (05:22→22:33)
[2017-07-31] MEDS: LANSOPRAZOLE 30 MG CAP PO SCH ×2 (05:22→17:46)
[2017-07-31 06:41] LABS: ABNORMAL IP MESSAGE 1; BASOPHILS % 0.2 % (0.0-2.0); EOSINOPHILS # 0.2 10^3/ul (0.0-0.5); EOSINOPHILS % 3.5 % (0.0-7.0); HEMATOCRIT 27.9 % (37.0-47.0); HEMOGLOBIN 7.9 g/dl (12.0-16.0); LYMPHOCYTES # 1.1 10^3/ul (0.8-2.9); LYMPHOCYTES % 18.3 % (15.0-51.0); MEAN CORPUSCULAR HEMOGLOBIN 24.2 pg (29.0-33.0); MEAN CORPUSCULAR HGB CONC 28.3 g/dl (32.0-37.0); MEAN CORPUSCULAR VOLUME 85.6 fl (82.0-101.0); MEAN PLATELET VOLUME 10.5 fl (7.4-10.4); MONOCYTE # 0.5 10^3/ul (0.3-0.9); MONOCYTES % 7.8 % (0.0-11.0); NEUTROPHIL # 4.2 10^3/ul (1.6-7.5); NEUTROPHILS % 69.2 % (39.0-77.0); PLATELET COUNT 267 10^3/UL (140-415); RED BLOOD COUNT 3.26 10^6/ul (4.20-5.40); WHITE BLOOD COUNT 6.1 10^3/ul (4.8-10.8)
[2017-07-31 06:42] LABS: POSITIVE DIFF @See below
[2017-07-31 07:03] LABS: CALCIUM 9.8 mg/dl (8.4-10.2); CREATININE 0.89 mg/dl (0.44-1.00); POTASSIUM 4.1 mmol/L (3.5-5.1)
[2017-07-31] MEDS: DOCUSATE SODIUM 10 MG/ML (10ML CUP) GTB SCH ×2 (08:59→21:20)
[2017-07-31] MEDS: FLUCONAZOLE 100 MG TAB PO SCH (08:59)
[2017-07-31] MEDS: METOCLOPRAMIDE 10 MG TAB GTB SCH ×2 (09:00→21:20)
[2017-07-31] MEDS: SUCRALFATE 1 GM TAB GTB SCH (09:00)
[2017-07-31] MEDS: traMADol 50 MG TAB GTB SCH (09:00)
[2017-07-31] MEDS: MULTIVITAMINS THERAPEUTIC TAB GTB SCH (09:01)
[2017-07-31] MEDS: MAGNESIUM OXIDE 400 MG TAB GTB SCH (09:01)
[2017-07-31] MEDS: ZINC SULFATE 220 MG CAP GTB SCH (09:01)
[2017-07-31] MEDS: BACLOFEN 10 MG TAB GTB SCH ×3 (09:01→21:20)
[2017-07-31] MEDS: ZYVOX 600 MG TAB PO SCH ×2 (09:08→21:20)
[2017-07-31] MEDS: COLISTIMETHATE 75 MG in SOD CHLORIDE 0.9% 100 ML IVPB SCH ×2 (09:09→21:21)
[2017-07-31] MEDS: ACETAMINOPHEN 325 MG TAB GTB PRN (11:18)
[2017-07-31 12:37] LABS: ADD UMIC YES; UR ASCORBIC ACID 40 mg/dL (NEGATIVE); UR BACTERIA FEW /HPF (NONE SEEN); UR BILIRUBIN (Dip) NEGATIVE (NEGATIVE); UR BLOOD (Dip) 2+ mg/dL (NEGATIVE); UR CLARITY TURBID (CLEAR); UR COLOR AMBER (YELLOW); UR GLUCOSE (Dip) 1+ mg/dL (NEGATIVE); UR KETONES (Dip) NEGATIVE (NEGATIVE); UR LEUKOCYTE ESTERASE (Dip) 3+ Leu/ul (NEGATIVE); UR MUCUS FEW /HPF (NONE SEEN); UR NITRITE (Dip) NEGATIVE (NEGATIVE); UR NONSQUAMOUS EPITHELIAL CELL 6 /HPF (NONE SEEN); UR RBC > 182 /HPF (0-5); UR SPECIFIC GRAVITY (Dip) 1.014 (1.003-1.030); UR SQUAMOUS EPITHELIAL CELL FEW /HPF (FEW); UR TOTAL PROTEIN (Dip) 2+ mg/dl (NEGATIVE); UR UROBILINOGEN (Dip) NEGATIVE (NEGATIVE)
--- NOTE | 2017-07-31 13:06 | CONS ---
Date/Time of Note Date/Time of Note DATE: 07/31/17 TIME: 13:04 Assessment/Plan Assessment/Plan Additional Assessment/Plan Ventilator setting; AC of 20, tidal volume 500, PEEP of 5, 30% FiO2. Assessment and recommendations; 1. Patient admitted with severe sepsis from decubitus wounds as well as UTI, currently on appropriate antibiotic regimen. 2. Chronic respiratory failure. Continue current supportive care. Consultation Date/Type/Reason Admit Date/Time Jul 21, 2017 at 23:24 Initial Consult Date 07/22/17 Type of Consultation: Pulmonary Referring Provider: FLEX DENNISON NP 24 HR Interval Summary Free Text/Dictation Patient's condition remains stable. Patient remains completely unresponsive due to anoxic brain injury. Also remains chronically ventilator dependent. Patient has remained hemodynamically stable. General exam; middle-aged woman, on ventilator via tracheostomy, unresponsive, currently in no distress. Exam/Review of Systems Vital Signs Vitals Vital Signs Date Time Temp Pulse Resp B/P Pulse Ox O2 Delivery O2 Flow Rate FiO2 07/31/17 11:29 101.5 117 15 97/54 100 07/31/17 11:07 30 Intake and Output 07/30/17 07/30/17 07/31/17 15:00 23:00 07:00 Intake Total 100 ml 1100 ml 960 ml Output Total 600 ml 800 ml Balance 100 ml 500 ml 160 ml Exam HEENT exam; supple neck, no JVD. No lymphadenopathy. Midline trachea. No thyromegaly. Tracheostomy in place. Chest exam; clear to auscultation. S1-S2 audible, no murmurs. Regular rhythm. Abdomen exam; soft, nondistended. No organomegaly. G-tube in place. Bowel sounds audible. Extremity exam; no peripheral edema. Patient does have contractures involving all 4 extremities. [employer]ST FR[employer] exam; patient remains unresponsive. Results Result Diagram: 07/31/17 0551 07/31/17 0551 Results 24 hrs Laboratory Tests Test 07/30/17 17:14 07/30/17 20:20 07/31/17 00:14 07/31/17 05:20 Bedside Glucose 184 189 202 170 Test 07/31/17 05:51 07/31/17 11:45 07/31/17 12:52 White Blood Count 6.1 Red Blood Count 3.26 L Hemoglobin 7.9 L Hematocrit 27.9 L Mean Corpuscular Volume 85.6 Mean Corpuscular Hemoglobin 24.2 L Mean Corpuscular Hemoglobin Concent 28.3 L Red Cell Distribution Width 20.0 H Platelet Count 267 Mean Platelet Volume 10.5 H Neutrophils % 69.2 Lymphocytes % 18.3 Monocytes % 7.8 Eosinophils % 3.5 Basophils % 0.2 Nucleated Red Blood Cells % 0.0 Neutrophils # 4.2 Lymphocytes # 1.1 Monocytes # 0.5 Eosinophils # 0.2 Basophils # 0.0 Nucleated Red Blood Cells # 0.0 Sodium Level 143 Potassium Level 4.1 Chloride Level 106 Carbon Dioxide Level 25 Anion Gap 16 Blood Urea Nitrogen 25 H Creatinine 0.89 Glucose Level 147 Calcium Level 9.8 Urine Color CONNIE Urine Clarity TURBID A Urine pH 8.0 Urine Specific [place] 1.014 Urine Ketones NEGATIVE Urine Nitrite NEGATIVE Urine Bilirubin NEGATIVE Urine Urobilinogen NEGATIVE Urine Leukocyte Esterase 3+ H Urine Microscopic RBC > 182 H Urine Microscopic WBC > 182 H Urine Squamous Epithelial Cells FEW Urine Bacteria FEW A Urine Mucus FEW A Urine Hemoglobin 2+ H Urine Glucose 1+ H Urine Total Protein 2+ H Bedside Glucose 213 Medications Medications Current Medications Miscellaneous Information (Pending [facility] Order For Wound Care) This patient stern... PRN PRN XX WOUND CARE; Start 07/22/17 at 03:30 Insulin Aspart (Novolog Insulin Pen) NOVOLOG *MILD* ALGORI... Q6 SC Last administered on 07/31/17 05:42; Admin Dose 1 UNIT; Start 07/22/17 at 06:00 Acetaminophen (Tylenol Tab) 650 mg Q4 PRN GTB ELEVATED TEMPERATURE Last administered on 07/31/17 11:18; Admin Dose 650 MG; Start 07/22/17 at 05:30 Ascorbic Acid (Vitamin C) 500 mg Q8 GTB Last administered on 07/31/17 11:18; Admin Dose 500 MG; Start 07/22/17 at 06:00 Baclofen (Lioresal) 20 mg TID GTB Last administered on 07/31/17 11:18; Admin Dose 20 MG; Start 07/22/17 at 09:00 Bisacodyl (Dulcolax Supp) 10 mg DAILY PRN [place] CONSTIPATION; Start 07/22/17 at 05:30 Docusate Sodium (Colace Liquid Cup) 100 mg BID GTB Last administered on 08:59; Admin Dose 100 MG; Start 07/22/17 at 09:00 Epoetin Andrey (Epogen (Esrd)) 15,000 units MoWeFr@17 SC Last administered on 18:30; Admin Dose 15,000 UNITS; Start 07/24/17 at 17:00 Magnesium Hydroxide (Milk Of Mag) 30 ml Q24H PRN PO CONSTIPATION; Start at 05:30 Magnesium Oxide (Mag-Ox 400) 800 mg DAILY GTB Last administered on 07/31/17 09:01; Admin Dose 800 MG; Start 07/22/17 at 09:00 Metoclopramide HCl (Reglan) 10 mg BID GTB Last administered on 07/31/17 09:00 ; Admin Dose 10 MG; Start 07/22/17 at 09:00 Mineral Oil (Fleet Mineral Oil Enema) 133 ml DAILY PRN [place] CONSTIPATION; Start 07/22/17 at 05:30 Multivitamins Therapeutic (Theragran) 1 tab DAILY GTB Last administered on 09:01; Admin Dose 1 TAB; Start 07/22/17 at 09:00 Sucralfate (Carafate) 1 gm DAILY GTB Last administered on 07/31/17 09:00; Admin Dose 1 GM; Start 07/22/17 at 09:00 Tramadol HCl (Ultram) 100 mg DAILY GTB Last administered on 07/31/17 09:00; Admin Dose 100 MG; Start 07/22/17 at 09:00 Acetaminophen/ Hydrocodone Bitart ([place] (5/325)) 1 tab Q6H PRN GTB PAIN LEVEL 7-10; Start 07/22/17 at 05:30 Miscellaneous Information 1 ea NOTE XX ; Start 07/22/17 at 15:00 Glucose (Glutose) 15 gm Q15M PRN PO DECREASED GLUCOSE; Start 07/22/17 at 15:00 Glucose (Glutose) 22.5 gm Q15M PRN PO DECREASED GLUCOSE; Start 07/22/17 at 15: 00 Dextrose (D50w Syringe) 25 ml Q15M PRN IV DECREASED GLUCOSE; Start 07/22/17 at 15:00 Dextrose (D50w Syringe) 50 ml Q15M PRN IV DECREASED GLUCOSE; Start 07/22/17 at 15:00 Glucagon (Glucagen) 1 mg Q15M PRN IM DECREASED GLUCOSE; Start 07/22/17 at 15: 00 Glucose (Glutose) 15 gm Q15M PRN BUCCAL DECREASED GLUCOSE; Start 07/22/17 at 15:00 Insulin Human NPH (Humulin N) 6 unit Q6 SC Last administered on 07/31/17 05: 42; Admin Dose 6 UNIT; Start 07/23/17 at 18:00 Linezolid (Zyvox) 600 mg BID PO Last administered on 07/31/17 09:08; Admin Dose 600 MG; Start 07/23/17 at 21:00 Fluconazole (Diflucan) 100 mg DAILY PO Last administered on 07/31/17 08:59; Admin Dose 100 MG; Start 07/25/17 at 09:00 Insulin Glargine 25 unit 25 unit DAILY@20 SC Last administered on 07/30/17 20 :50; Admin Dose 25 UNIT; Start 07/24/17 at 20:00 Colistimethate Sodium/Sodium Chloride (Coly-Mycin/NS) 100 ml @ 200 mls/hr Q12 IVPB Last administered on 07/31/17 09:09; Admin Dose 200 MLS/HR; Start 07/26 at 21:00 Sodium Hypochlorite (Dakin'S (Dilute 1/40%)) 1 applic BID IRR Last administered on 07/30/17 20:47; Admin Dose 1 APPLIC; Start 07/26/17 at 21:00 Lansoprazole (Prevacid) 30 mg BID@06,18 PO Last administered on 07/31/17 05: 22; Admin Dose 30 MG; Start 07/26/17 at 18:00 Zinc Sulfate (Zinc Sulfate) 220 mg DAILY GTB Last administered on 07/31/17 09 :01; Admin Dose 220 MG; Start 07/29/17 at 09:00 Ascorbic Acid (Vitamin C) 500 mg DAILY GTB Last administered on 07/31/17 09: 00; Admin Dose 500 MG; Start 07/29/17 at 09:00 ARYAN COLLADO Jul 31, 2017 13:05
--- NOTE | 2017-07-31 15:24 | CONS ---
Date/Time of Note Date/Time of Note DATE: 07/31/17 TIME: 15:21 Consult Date/Type/Reason Admit Date/Time Jul 21, 2017 at 23:24 Initial Consult Date 07/22/17 Type of Consultation: id Ordering Provider: FLEX DENNISON NP Objective Vital Signs Date Time Temp Pulse Resp B/P Pulse Ox O2 Delivery O2 Flow Rate FiO2 07/31/17 15:17 98.4 108 15 117/66 99 07/31/17 13:29 30 Intake and Output 07/30/17 07/30/17 07/31/17 15:00 23:00 07:00 Intake Total 100 ml 1100 ml 960 ml Output Total 600 ml 800 ml Balance 100 ml 500 ml 160 ml Results/Medications Result Diagram: 07/31/17 0551 07/31/17 0551 Results 24 hrs Laboratory Tests Test 07/30/17 17:14 07/30/17 20:20 07/31/17 00:14 07/31/17 05:20 Bedside Glucose 184 189 202 170 Test 07/31/17 05:51 07/31/17 11:45 07/31/17 12:52 White Blood Count 6.1 Red Blood Count 3.26 L Hemoglobin 7.9 L Hematocrit 27.9 L Mean Corpuscular Volume 85.6 Mean Corpuscular Hemoglobin 24.2 L Mean Corpuscular Hemoglobin Concent 28.3 L Red Cell Distribution Width 20.0 H Platelet Count 267 Mean Platelet Volume 10.5 H Neutrophils % 69.2 Lymphocytes % 18.3 Monocytes % 7.8 Eosinophils % 3.5 Basophils % 0.2 Nucleated Red Blood Cells % 0.0 Neutrophils # 4.2 Lymphocytes # 1.1 Monocytes # 0.5 Eosinophils # 0.2 Basophils # 0.0 Nucleated Red Blood Cells # 0.0 Sodium Level 143 Potassium Level 4.1 Chloride Level 106 Carbon Dioxide Level 25 Anion Gap 16 Blood Urea Nitrogen 25 H Creatinine 0.89 Glucose Level 147 Calcium Level 9.8 Urine Color CONNIE Urine Clarity TURBID A Urine pH 8.0 Urine Specific [place] 1.014 Urine Ketones NEGATIVE Urine Nitrite NEGATIVE Urine Bilirubin NEGATIVE Urine Urobilinogen NEGATIVE Urine Leukocyte Esterase 3+ H Urine Microscopic RBC > 182 H Urine Microscopic WBC > 182 H Urine Squamous Epithelial Cells FEW Urine Bacteria FEW A Urine Mucus FEW A Urine Hemoglobin 2+ H Urine Glucose 1+ H Urine Total Protein 2+ H Bedside Glucose 213 Medications Current Medications Miscellaneous Information (Pending [facility] Order For Wound Care) This patient stern... PRN PRN XX WOUND CARE; Start 07/22/17 at 03:30 Insulin Aspart (Novolog Insulin Pen) NOVOLOG *MILD* ALGORI... Q6 SC Last administered on 07/31/17 13:04; Admin Dose 2 UNIT; Start 07/22/17 at 06:00 Acetaminophen (Tylenol Tab) 650 mg Q4 PRN GTB ELEVATED TEMPERATURE Last administered on 07/31/17 11:18; Admin Dose 650 MG; Start 07/22/17 at 05:30 Ascorbic Acid (Vitamin C) 500 mg Q8 GTB Last administered on 07/31/17 11:18; Admin Dose 500 MG; Start 07/22/17 at 06:00 Baclofen (Lioresal) 20 mg TID GTB Last administered on 07/31/17 11:18; Admin Dose 20 MG; Start 07/22/17 at 09:00 Bisacodyl (Dulcolax Supp) 10 mg DAILY PRN [place] CONSTIPATION; Start 07/22/17 at 05:30 Docusate Sodium (Colace Liquid Cup) 100 mg BID GTB Last administered on 08:59; Admin Dose 100 MG; Start 07/22/17 at 09:00 Epoetin Andrey (Epogen (Esrd)) 15,000 units MoWeFr@17 SC Last administered on 18:30; Admin Dose 15,000 UNITS; Start 07/24/17 at 17:00 Magnesium Hydroxide (Milk Of Mag) 30 ml Q24H PRN PO CONSTIPATION; Start at 05:30 Magnesium Oxide (Mag-Ox 400) 800 mg DAILY GTB Last administered on 07/31/17 09:01; Admin Dose 800 MG; Start 07/22/17 at 09:00 Metoclopramide HCl (Reglan) 10 mg BID GTB Last administered on 07/31/17 09:00 ; Admin Dose 10 MG; Start 07/22/17 at 09:00 Mineral Oil (Fleet Mineral Oil Enema) 133 ml DAILY PRN [place] CONSTIPATION; Start 07/22/17 at 05:30 Multivitamins Therapeutic (Theragran) 1 tab DAILY GTB Last administered on 09:01; Admin Dose 1 TAB; Start 07/22/17 at 09:00 Sucralfate (Carafate) 1 gm DAILY GTB Last administered on 07/31/17 09:00; Admin Dose 1 GM; Start 07/22/17 at 09:00 Tramadol HCl (Ultram) 100 mg DAILY GTB Last administered on 07/31/17 09:00; Admin Dose 100 MG; Start 07/22/17 at 09:00 Acetaminophen/ Hydrocodone Bitart ([place] (5/325)) 1 tab Q6H PRN GTB PAIN LEVEL 7-10; Start 07/22/17 at 05:30 Miscellaneous Information 1 ea NOTE XX ; Start 07/22/17 at 15:00 Glucose (Glutose) 15 gm Q15M PRN PO DECREASED GLUCOSE; Start 07/22/17 at 15:00 Glucose (Glutose) 22.5 gm Q15M PRN PO DECREASED GLUCOSE; Start 07/22/17 at 15: 00 Dextrose (D50w Syringe) 25 ml Q15M PRN IV DECREASED GLUCOSE; Start 07/22/17 at 15:00 Dextrose (D50w Syringe) 50 ml Q15M PRN IV DECREASED GLUCOSE; Start 07/22/17 at 15:00 Glucagon (Glucagen) 1 mg Q15M PRN IM DECREASED GLUCOSE; Start 07/22/17 at 15: 00 Glucose (Glutose) 15 gm Q15M PRN BUCCAL DECREASED GLUCOSE; Start 07/22/17 at 15:00 Insulin Human NPH (Humulin N) 6 unit Q6 SC Last administered on 07/31/17 13: 05; Admin Dose 6 UNIT; Start 07/23/17 at 18:00 Linezolid (Zyvox) 600 mg BID PO Last administered on 07/31/17 09:08; Admin Dose 600 MG; Start 07/23/17 at 21:00 Fluconazole (Diflucan) 100 mg DAILY PO Last administered on 07/31/17 08:59; Admin Dose 100 MG; Start 07/25/17 at 09:00 Insulin Glargine 25 unit 25 unit DAILY@20 SC Last administered on 07/30/17 20 :50; Admin Dose 25 UNIT; Start 07/24/17 at 20:00 Colistimethate Sodium/Sodium Chloride (Coly-Mycin/NS) 100 ml @ 200 mls/hr Q12 IVPB Last administered on 07/31/17 09:09; Admin Dose 200 MLS/HR; Start 07/26 at 21:00 Sodium Hypochlorite (Dakin'S (Dilute 1/40%)) 1 applic BID IRR Last administered on 07/30/17 20:47; Admin Dose 1 APPLIC; Start 07/26/17 at 21:00 Lansoprazole (Prevacid) 30 mg BID@06,18 PO Last administered on 07/31/17 05: 22; Admin Dose 30 MG; Start 07/26/17 at 18:00 Zinc Sulfate (Zinc Sulfate) 220 mg DAILY GTB Last administered on 07/31/17 09 :01; Admin Dose 220 MG; Start 07/29/17 at 09:00 Ascorbic Acid (Vitamin C) 500 mg DAILY GTB Last administered on 07/31/17 09: 00; Admin Dose 500 MG; Start 07/29/17 at 09:00 Assessment/Plan Chief Complaint/Hosp Course No acute changes, spiked fever this am, now afebrile, noncommunicative, looks comfortable Microbiology: Wound culture growing Acinetobacter, VRE, Pilra albicans, MRSA , coag negative staph species. Blood culture grew staph species, urine culture growing gram-negative rods Indwelling: Trach/PEG/PICC/Joel Abx: Colistin, Diflucan, Zyvox ALL: PCN, Levaquin, Vanco, Cephalosporins GENERAL: The patient is a nonverbal female who is awake, noncommunicative, no acute distress. SKIN: Without generalized rash. HEENT: Within normal limits. NECK: Supple. Lymph nodes nonpalpable. She has a tracheostomy in place. SKIN: She has a PICC line on the left side in the superior vena cava. CHEST: Decreased breath sounds at the bases. HEART: Without murmur or gallop. ABDOMEN: Soft, nontender. G-tube in place. + BT EXTREMITIES: Without cyanosis, clubbing or edema. Assessment: 1. Sepsis with ongoing fevers 2. UTI==> GNR 2. Ischial decub==> pending final cx 3. Acute on chronic anemia==> s/p bld tx, h/h stable 4. ARF=> nephrology follows 5. VDRF 6. Chronic encephalopathy 7. Bacteremia, possibly contaminant vs 2 to wounds Plan: Clinically unchanged, repeat bld cx's negative, continue abx, local wound care, vent per pulmonary, surgical rec-s Dw staff Problems: FLEX DENNISON NP Jul 31, 2017 15:24
[2017-07-31] MEDS: SODIUM HYPOCHLORITE 1/40% 1L IRRIG IRR SCH ×2 (16:00→21:20)
[2017-07-31] MEDS: EPOETIN 10000 UNITS/1 ML INJ (ESRD) SC SCH (17:45)
--- NOTE | 2017-07-31 17:45 | CONS ---
Date/Time of Note Date/Time of Note DATE: 07/31/17 TIME: 17:44 Assessment/Plan Assessment/Plan Additional Assessment/Plan 1. Acute kidney injury due to ATN From sepsis + prerenal azotemia 2. Sepsis due to UTI 3. Chronic resp failure s/p Tracheostomy on ventilator 4/ Anemia of chronic disease 5/ HTN 6. UTI with Urine cx growing Gram negative rods Plan : Cr normal now continue Tube feeding as ordered Cr and electrolytes normal today ID following abx as per ID, pt is growing pseudomonas on Urine cx, and wound cx growing teresita, MRSA, acinetobacter IV abx colistin- renally dose all abx will follow up Consultation Date/Type/Reason Admit Date/Time Jul 21, 2017 at 23:24 Initial Consult Date 07/22/17 Type of Consultation: NEPHROLOGY Referring Provider: FLEX DENNISON NP 24 HR Interval Summary Free Text/Dictation Cr and electrolytes normal today Exam/Review of Systems Vital Signs Vitals Vital Signs Date Time Temp Pulse Resp B/P Pulse Ox O2 Delivery O2 Flow Rate FiO2 07/31/17 17:32 91 20 99 30 07/31/17 15:17 98.4 117/66 Intake and Output 07/30/17 07/30/17 07/31/17 15:00 23:00 07:00 Intake Total 100 ml 1100 ml 960 ml Output Total 600 ml 800 ml Balance 100 ml 500 ml 160 ml Exam Constitutional: non-verbal, + tracheostomy on ventilator Neck: non-tender, supple Respiratory: crackles/rales, diminished breath sounds Cardiovascular: nl pulses, regular rate and rhythm Gastrointestinal: non-tender, soft, +G tube Musculoskeletal: dry skin, pedal pulses 2+ Extremities: normal pulses Results Result Diagram: 07/31/17 0551 07/31/17 0551 Results 24 hrs Laboratory Tests Test 07/30/17 20:20 07/31/17 00:14 07/31/17 05:20 07/31/17 05:51 Bedside Glucose 189 202 170 White Blood Count 6.1 Red Blood Count 3.26 L Hemoglobin 7.9 L Hematocrit 27.9 L Mean Corpuscular Volume 85.6 Mean Corpuscular Hemoglobin 24.2 L Mean Corpuscular Hemoglobin Concent 28.3 L Red Cell Distribution Width 20.0 H Platelet Count 267 Mean Platelet Volume 10.5 H Neutrophils % 69.2 Lymphocytes % 18.3 Monocytes % 7.8 Eosinophils % 3.5 Basophils % 0.2 Nucleated Red Blood Cells % 0.0 Neutrophils # 4.2 Lymphocytes # 1.1 Monocytes # 0.5 Eosinophils # 0.2 Basophils # 0.0 Nucleated Red Blood Cells # 0.0 Sodium Level 143 Potassium Level 4.1 Chloride Level 106 Carbon Dioxide Level 25 Anion Gap 16 Blood Urea Nitrogen 25 H Creatinine 0.89 Glucose Level 147 Calcium Level 9.8 Test 07/31/17 11:45 07/31/17 12:52 Urine Color CONNIE Urine Clarity TURBID A Urine pH 8.0 Urine Specific [place] 1.014 Urine Ketones NEGATIVE Urine Nitrite NEGATIVE Urine Bilirubin NEGATIVE Urine Urobilinogen NEGATIVE Urine Leukocyte Esterase 3+ H Urine Microscopic RBC > 182 H Urine Microscopic WBC > 182 H Urine Squamous Epithelial Cells FEW Urine Bacteria FEW A Urine Mucus FEW A Urine Hemoglobin 2+ H Urine Glucose 1+ H Urine Total Protein 2+ H Bedside Glucose 213 Medications Medications Current Medications Miscellaneous Information (Pending [facility] Order For Wound Care) This patient stern... PRN PRN XX WOUND CARE; Start 07/22/17 at 03:30 Insulin Aspart (Novolog Insulin Pen) NOVOLOG *MILD* ALGORI... Q6 SC Last administered on 07/31/17 13:04; Admin Dose 2 UNIT; Start 07/22/17 at 06:00 Acetaminophen (Tylenol Tab) 650 mg Q4 PRN GTB ELEVATED TEMPERATURE Last administered on 07/31/17 11:18; Admin Dose 650 MG; Start 07/22/17 at 05:30 Ascorbic Acid (Vitamin C) 500 mg Q8 GTB Last administered on 07/31/17 11:18; Admin Dose 500 MG; Start 07/22/17 at 06:00 Baclofen (Lioresal) 20 mg TID GTB Last administered on 07/31/17 11:18; Admin Dose 20 MG; Start 07/22/17 at 09:00 Bisacodyl (Dulcolax Supp) 10 mg DAILY PRN [place] CONSTIPATION; Start 07/22/17 at 05:30 Docusate Sodium (Colace Liquid Cup) 100 mg BID GTB Last administered on 08:59; Admin Dose 100 MG; Start 07/22/17 at 09:00 Epoetin Andrey (Epogen (Esrd)) 15,000 units MoWeFr@17 SC Last administered on 18:30; Admin Dose 15,000 UNITS; Start 07/24/17 at 17:00 Magnesium Hydroxide (Milk Of Mag) 30 ml Q24H PRN PO CONSTIPATION; Start at 05:30 Magnesium Oxide (Mag-Ox 400) 800 mg DAILY GTB Last administered on 07/31/17 09:01; Admin Dose 800 MG; Start 07/22/17 at 09:00 Metoclopramide HCl (Reglan) 10 mg BID GTB Last administered on 07/31/17 09:00 ; Admin Dose 10 MG; Start 07/22/17 at 09:00 Mineral Oil (Fleet Mineral Oil Enema) 133 ml DAILY PRN [place] CONSTIPATION; Start 07/22/17 at 05:30 Multivitamins Therapeutic (Theragran) 1 tab DAILY GTB Last administered on 09:01; Admin Dose 1 TAB; Start 07/22/17 at 09:00 Sucralfate (Carafate) 1 gm DAILY GTB Last administered on 07/31/17 09:00; Admin Dose 1 GM; Start 07/22/17 at 09:00 Tramadol HCl (Ultram) 100 mg DAILY GTB Last administered on 07/31/17 09:00; Admin Dose 100 MG; Start 07/22/17 at 09:00 Acetaminophen/ Hydrocodone Bitart ([place] (5/325)) 1 tab Q6H PRN GTB PAIN LEVEL 7-10; Start 07/22/17 at 05:30 Miscellaneous Information 1 ea NOTE XX ; Start 07/22/17 at 15:00 Glucose (Glutose) 15 gm Q15M PRN PO DECREASED GLUCOSE; Start 07/22/17 at 15:00 Glucose (Glutose) 22.5 gm Q15M PRN PO DECREASED GLUCOSE; Start 07/22/17 at 15: 00 Dextrose (D50w Syringe) 25 ml Q15M PRN IV DECREASED GLUCOSE; Start 07/22/17 at 15:00 Dextrose (D50w Syringe) 50 ml Q15M PRN IV DECREASED GLUCOSE; Start 07/22/17 at 15:00 Glucagon (Glucagen) 1 mg Q15M PRN IM DECREASED GLUCOSE; Start 07/22/17 at 15: 00 Glucose (Glutose) 15 gm Q15M PRN BUCCAL DECREASED GLUCOSE; Start 07/22/17 at 15:00 Insulin Human NPH (Humulin N) 6 unit Q6 SC Last administered on 07/31/17 13: 05; Admin Dose 6 UNIT; Start 07/23/17 at 18:00 Linezolid (Zyvox) 600 mg BID PO Last administered on 07/31/17 09:08; Admin Dose 600 MG; Start 07/23/17 at 21:00 Fluconazole (Diflucan) 100 mg DAILY PO Last administered on 07/31/17 08:59; Admin Dose 100 MG; Start 07/25/17 at 09:00 Insulin Glargine 25 unit 25 unit DAILY@20 SC Last administered on 07/30/17 20 :50; Admin Dose 25 UNIT; Start 07/24/17 at 20:00 Colistimethate Sodium/Sodium Chloride (Coly-Mycin/NS) 100 ml @ 200 mls/hr Q12 IVPB Last administered on 07/31/17 09:09; Admin Dose 200 MLS/HR; Start 07/26 at 21:00 Sodium Hypochlorite (Dakin'S (Dilute 1/40%)) 1 applic BID IRR Last administered on 07/31/17 16:00; Admin Dose 1 APPLIC; Start 07/26/17 at 21:00 Lansoprazole (Prevacid) 30 mg BID@06,18 PO Last administered on 07/31/17 05: 22; Admin Dose 30 MG; Start 07/26/17 at 18:00 Zinc Sulfate (Zinc Sulfate) 220 mg DAILY GTB Last administered on 07/31/17 09 :01; Admin Dose 220 MG; Start 07/29/17 at 09:00 Ascorbic Acid (Vitamin C) 500 mg DAILY GTB Last administered on 07/31/17 09: 00; Admin Dose 500 MG; Start 07/29/17 at 09:00 LIZETTE ALEX MD Jul 31, 2017 17:45
--- NOTE | 2017-07-31 18:09 | CONS ---
Date/Time of Note Date/Time of Note DATE: 07/31/17 TIME: 18:09 Assessment/Plan Assessment/Plan Additional Assessment/Plan Assessment/Plan Additional Assessment/Plan MPRESSION 1. Anemia, most probably of chronic disease. 2. Decubitus ulcer. 3, Ventilator-dependent respiratory failure. 4. Dysphagia, status post percutaneous endoscopic gastrostomy. 5. UTI PLAN: To continue present care. Debridement as per the surgeon. Monitor H and H. Nutritional support Consultation Date/Type/Reason Admit Date/Time Jul 21, 2017 at 23:24 Initial Consult Date 07/22/17 Type of Consultation: NEPHROLOGY Referring Provider: FLEX DENNISON NP 24 HR Interval Summary Subjective hx not possible: pt non-verbal Exam/Review of Systems Vital Signs Vitals Vital Signs Date Time Temp Pulse Resp B/P Pulse Ox O2 Delivery O2 Flow Rate FiO2 07/31/17 17:32 91 20 99 30 07/31/17 15:17 98.4 117/66 Intake and Output 07/30/17 07/30/17 07/31/17 15:00 23:00 07:00 Intake Total 100 ml 1100 ml 960 ml Output Total 600 ml 800 ml Balance 100 ml 500 ml 160 ml Exam Constitutional: alert, oriented, well developed Psych: nl mood/affect, no complaints Head: atraumatic, normocephalic Eyes: EOMI, PERRL, nl conjunctiva, nl lids, nl sclera ENMT: nl external ears & nose, nl lips & teeth, nl nasal mucosa & septum Neck: non-tender, supple Respiratory: clear to auscultation, normal air movement Cardiovascular: nl pulses, regular rate and rhythm Gastrointestinal: nl liver, spleen, non-tender, soft Musculoskeletal: nl extremities to inspection, nl gait and stance Extremities: normal pulses Neurological: CONSOLE MANAGER II-XII intact, nl mental status, nl speech, nl strength Skin: nl turgor, No rash or lesions Lymph: nl lymph nodes Results Result Diagram: 07/31/17 0551 07/31/17 0551 Results 24 hrs Laboratory Tests Test 07/30/17 20:20 07/31/17 00:14 07/31/17 05:20 07/31/17 05:51 Bedside Glucose 189 202 170 White Blood Count 6.1 Red Blood Count 3.26 L Hemoglobin 7.9 L Hematocrit 27.9 L Mean Corpuscular Volume 85.6 Mean Corpuscular Hemoglobin 24.2 L Mean Corpuscular Hemoglobin Concent 28.3 L Red Cell Distribution Width 20.0 H Platelet Count 267 Mean Platelet Volume 10.5 H Neutrophils % 69.2 Lymphocytes % 18.3 Monocytes % 7.8 Eosinophils % 3.5 Basophils % 0.2 Nucleated Red Blood Cells % 0.0 Neutrophils # 4.2 Lymphocytes # 1.1 Monocytes # 0.5 Eosinophils # 0.2 Basophils # 0.0 Nucleated Red Blood Cells # 0.0 Sodium Level 143 Potassium Level 4.1 Chloride Level 106 Carbon Dioxide Level 25 Anion Gap 16 Blood Urea Nitrogen 25 H Creatinine 0.89 Glucose Level 147 Calcium Level 9.8 Test 07/31/17 11:45 07/31/17 12:52 07/31/17 17:40 Urine Color CONNIE Urine Clarity TURBID A Urine pH 8.0 Urine Specific [place] 1.014 Urine Ketones NEGATIVE Urine Nitrite NEGATIVE Urine Bilirubin NEGATIVE Urine Urobilinogen NEGATIVE Urine Leukocyte Esterase 3+ H Urine Microscopic RBC > 182 H Urine Microscopic WBC > 182 H Urine Squamous Epithelial Cells FEW Urine Bacteria FEW A Urine Mucus FEW A Urine Hemoglobin 2+ H Urine Glucose 1+ H Urine Total Protein 2+ H Bedside Glucose 213 215 Medications Medications Current Medications Miscellaneous Information (Pending [facility] Order For Wound Care) This patient stern... PRN PRN XX WOUND CARE; Start 07/22/17 at 03:30 Insulin Aspart (Novolog Insulin Pen) NOVOLOG *MILD* ALGORI... Q6 SC Last administered on 07/31/17 17:50; Admin Dose 2 UNIT; Start 07/22/17 at 06:00 Acetaminophen (Tylenol Tab) 650 mg Q4 PRN GTB ELEVATED TEMPERATURE Last administered on 07/31/17 11:18; Admin Dose 650 MG; Start 07/22/17 at 05:30 Ascorbic Acid (Vitamin C) 500 mg Q8 GTB Last administered on 07/31/17 11:18; Admin Dose 500 MG; Start 07/22/17 at 06:00 Baclofen (Lioresal) 20 mg TID GTB Last administered on 07/31/17 11:18; Admin Dose 20 MG; Start 07/22/17 at 09:00 Bisacodyl (Dulcolax Supp) 10 mg DAILY PRN [place] CONSTIPATION; Start 07/22/17 at 05:30 Docusate Sodium (Colace Liquid Cup) 100 mg BID GTB Last administered on 08:59; Admin Dose 100 MG; Start 07/22/17 at 09:00 Epoetin Andrey (Epogen (Esrd)) 15,000 units MoWeFr@17 SC Last administered on 17:45; Admin Dose 15,000 UNITS; Start 07/24/17 at 17:00 Magnesium Hydroxide (Milk Of Mag) 30 ml Q24H PRN PO CONSTIPATION; Start at 05:30 Magnesium Oxide (Mag-Ox 400) 800 mg DAILY GTB Last administered on 07/31/17 09:01; Admin Dose 800 MG; Start 07/22/17 at 09:00 Metoclopramide HCl (Reglan) 10 mg BID GTB Last administered on 07/31/17 09:00 ; Admin Dose 10 MG; Start 07/22/17 at 09:00 Mineral Oil (Fleet Mineral Oil Enema) 133 ml DAILY PRN [place] CONSTIPATION; Start 07/22/17 at 05:30 Multivitamins Therapeutic (Theragran) 1 tab DAILY GTB Last administered on 09:01; Admin Dose 1 TAB; Start 07/22/17 at 09:00 Sucralfate (Carafate) 1 gm DAILY GTB Last administered on 07/31/17 09:00; Admin Dose 1 GM; Start 07/22/17 at 09:00 Tramadol HCl (Ultram) 100 mg DAILY GTB Last administered on 07/31/17 09:00; Admin Dose 100 MG; Start 07/22/17 at 09:00 Acetaminophen/ Hydrocodone Bitart ([place] (5/325)) 1 tab Q6H PRN GTB PAIN LEVEL 7-10; Start 07/22/17 at 05:30 Miscellaneous Information 1 ea NOTE XX ; Start 07/22/17 at 15:00 Glucose (Glutose) 15 gm Q15M PRN PO DECREASED GLUCOSE; Start 07/22/17 at 15:00 Glucose (Glutose) 22.5 gm Q15M PRN PO DECREASED GLUCOSE; Start 07/22/17 at 15: 00 Dextrose (D50w Syringe) 25 ml Q15M PRN IV DECREASED GLUCOSE; Start 07/22/17 at 15:00 Dextrose (D50w Syringe) 50 ml Q15M PRN IV DECREASED GLUCOSE; Start 07/22/17 at 15:00 Glucagon (Glucagen) 1 mg Q15M PRN IM DECREASED GLUCOSE; Start 07/22/17 at 15: 00 Glucose (Glutose) 15 gm Q15M PRN BUCCAL DECREASED GLUCOSE; Start 07/22/17 at 15:00 Insulin Human NPH (Humulin N) 6 unit Q6 SC Last administered on 07/31/17 17: 49; Admin Dose 6 UNIT; Start 07/23/17 at 18:00 Linezolid (Zyvox) 600 mg BID PO Last administered on 07/31/17 09:08; Admin Dose 600 MG; Start 07/23/17 at 21:00 Fluconazole (Diflucan) 100 mg DAILY PO Last administered on 07/31/17 08:59; Admin Dose 100 MG; Start 07/25/17 at 09:00 Insulin Glargine 25 unit 25 unit DAILY@20 SC Last administered on 07/30/17 20 :50; Admin Dose 25 UNIT; Start 07/24/17 at 20:00 Colistimethate Sodium/Sodium Chloride (Coly-Mycin/NS) 100 ml @ 200 mls/hr Q12 IVPB Last administered on 07/31/17 09:09; Admin Dose 200 MLS/HR; Start 07/26 at 21:00 Sodium Hypochlorite (Dakin'S (Dilute 1/40%)) 1 applic BID IRR Last administered on 07/31/17 16:00; Admin Dose 1 APPLIC; Start 07/26/17 at 21:00 Lansoprazole (Prevacid) 30 mg BID@06,18 PO Last administered on 07/31/17 17: 46; Admin Dose 30 MG; Start 07/26/17 at 18:00 Zinc Sulfate (Zinc Sulfate) 220 mg DAILY GTB Last administered on 07/31/17 09 :01; Admin Dose 220 MG; Start 07/29/17 at 09:00 Ascorbic Acid (Vitamin C) 500 mg DAILY GTB Last administered on 07/31/17 09: 00; Admin Dose 500 MG; Start 07/29/17 at 09:00 HELENA NASH MD Jul 31, 2017 18:09
[2017-07-31] MEDS: INSULIN GLARGINE [LANtus] 3 ML PEN SC SCH (21:48)
[2017-08-01] VITALS (24 sets, daily range): BP systolic 80–120; BP diastolic 51–67; PULSE 100–133; RESP 10–22
[2017-08-01] MEDS: INSULIN ASPART [NOVOLOG] 3 ML PEN SC SCH ×4 (00:23→17:28)
[2017-08-01] MEDS: NPH, HUMAN INSULIN ISOPHANE 3ML VIAL SC SCH ×4 (00:24→17:29)
--- NOTE | 2017-08-01 04:17 | PN ---
Date/Time of Note Date/Time of Note DATE: 07/30/17 TIME: 19:16 Assessment/Plan Lines/Catheters IV Catheter Type (from Nrs): PICC Line Joel in Place (from Nrs): Yes Assessment/Plan Chief Complaint/Hosp Course 1. Multiple wound: 2/2 immobility; cultures noted -debridement -local care -frequent turning and off-loading -low air loss mattress -vitamin c -short term zinc -optimize nutrition 2. Hypochromic anemia: no acute bleed noted -monitor -transfuse as needed 3. UTI: -abx per sensitivity -frequent bladder emptying/cath care 4. VDRF -pulm toilet -respiratory treatments Thank you, Late entry 07/30 Problems: Subjective 24 Hr Interval Summary Fevers improved. Appears comfortable on vent. Non verbal indicators of pain not present. No congested cough, change in tele rhythm, vomiting, bloating, rashes. Bowel function. Exam/Review of Systems Vital Signs Vitals Vital Signs Date Time Temp Pulse Resp B/P Pulse Ox O2 Delivery O2 Flow Rate FiO2 08/01/17 01:45 90 10 100 30 08/01/17 00:17 98.5 120/65 Intake and Output 07/31/17 07/31/17 08/01/17 15:00 23:00 07:00 Intake Total 1420 ml Output Total 950 ml Balance 470 ml Exam Free Text/Dictation Constitutional: alert, other (nonverbal) Head: atraumatic, normocephalic Eyes: nl lids, nl sclera, No icteric ENMT: mucosa pink and moist, nl nasal mucosa & septum Neck: non-tender, other (trach), supple Respiratory: other (vent), No labored breathing Cardiovascular: regular rate and rhythm Gastrointestinal: non-tender, other (peg; umbilical hernia, rotund), soft Extremities: normal pulses, other (stiffness) Neurological: other (withdraws from painful stimuli) Skin: other (multiple wounds: min drainage, min odor) Results Result Diagram: 07/31/17 0551 07/31/17 0551 SARAH HIGH MD Aug 01, 2017 04:17
--- NOTE | 2017-08-01 04:18 | PN ---
Date/Time of Note Date/Time of Note DATE: 07/31/17 TIME: 12:17 Assessment/Plan Lines/Catheters IV Catheter Type (from Nrs): PICC Line Joel in Place (from Nrs): Yes Assessment/Plan Chief Complaint/Hosp Course 1. Multiple wound: 2/2 immobility; cultures noted -debridement -local care -frequent turning and off-loading -low air loss mattress -vitamin c -short term zinc -optimize nutrition 2. Hypochromic anemia: no acute bleed noted -monitor -transfuse as needed 3. UTI: -abx per sensitivity -frequent bladder emptying/cath care 4. VDRF -pulm toilet -respiratory treatments Thank you, Late entry 07/31 Problems: Subjective 24 Hr Interval Summary Fevers improved. Appears comfortable on vent. Non verbal indicators of pain not present. No congested cough, change in tele rhythm, vomiting, bloating, rashes. Bowel function. Exam/Review of Systems Vital Signs Vitals Vital Signs Date Time Temp Pulse Resp B/P Pulse Ox O2 Delivery O2 Flow Rate FiO2 08/01/17 01:45 90 10 100 30 08/01/17 00:17 98.5 120/65 Intake and Output 07/31/17 07/31/17 08/01/17 15:00 23:00 07:00 Intake Total 1420 ml Output Total 950 ml Balance 470 ml Exam Free Text/Dictation Constitutional: alert, other (nonverbal) Head: atraumatic, normocephalic Eyes: nl lids, nl sclera, No icteric ENMT: mucosa pink and moist, nl nasal mucosa & septum Neck: non-tender, other (trach), supple Respiratory: other (vent), No labored breathing Cardiovascular: regular rate and rhythm Gastrointestinal: non-tender, other (peg; umbilical hernia, rotund), soft Extremities: normal pulses, other (stiffness) Neurological: other (withdraws from painful stimuli) Skin: other (multiple wounds: min drainage, min odor) Results Result Diagram: 07/31/17 0551 07/31/17 0551 SARAH HIGH MD Aug 01, 2017 04:18
[2017-08-01] MEDS ORDERED: COLLAGENASE 30 GM TUBE TOP PRN (04:30)
[2017-08-01] MEDS: LANSOPRAZOLE 30 MG CAP PO SCH ×2 (06:22→16:31)
[2017-08-01] MEDS: ASCORBIC ACID 500 MG TAB GTB SCH ×2 (06:22→08:32)
[2017-08-01] MEDS: DOCUSATE SODIUM 10 MG/ML (10ML CUP) GTB SCH ×2 (08:03→20:21)
[2017-08-01] MEDS: SUCRALFATE 1 GM TAB GTB SCH (08:04)
[2017-08-01] MEDS: METOCLOPRAMIDE 10 MG TAB GTB SCH ×2 (08:04→20:21)
[2017-08-01] MEDS: ZINC SULFATE 220 MG CAP GTB SCH (08:04)
[2017-08-01] MEDS: MAGNESIUM OXIDE 400 MG TAB GTB SCH (08:04)
[2017-08-01] MEDS: ZYVOX 600 MG TAB PO SCH ×2 (08:05→20:21)
[2017-08-01] MEDS: FLUCONAZOLE 100 MG TAB PO SCH (08:05)
[2017-08-01] MEDS: MULTIVITAMINS THERAPEUTIC TAB GTB SCH (08:05)
[2017-08-01] MEDS: traMADol 50 MG TAB GTB SCH (08:05)
[2017-08-01] MEDS: COLISTIMETHATE 75 MG in SOD CHLORIDE 0.9% 100 ML IVPB SCH ×2 (08:06→20:56)
[2017-08-01] MEDS: BACLOFEN 10 MG TAB GTB SCH ×3 (08:06→20:21)
[2017-08-01 08:13] LABS: BASOPHILS % 0.1 % (0.0-2.0); EOSINOPHILS # 0.2 10^3/ul (0.0-0.5); EOSINOPHILS % 2.7 % (0.0-7.0); HEMATOCRIT 26.3 % (37.0-47.0); HEMOGLOBIN 7.8 g/dl (12.0-16.0); LYMPHOCYTES % 14.3 % (15.0-51.0); MEAN CORPUSCULAR HEMOGLOBIN 25.2 pg (29.0-33.0); MEAN CORPUSCULAR HGB CONC 29.7 g/dl (32.0-37.0); MEAN CORPUSCULAR VOLUME 84.8 fl (82.0-101.0); MEAN PLATELET VOLUME 10.2 fl (7.4-10.4); MONOCYTE # 0.5 10^3/ul (0.3-0.9); MONOCYTES % 6.5 % (0.0-11.0); NEUTROPHIL # 5.2 10^3/ul (1.6-7.5); NEUTROPHILS % 75.5 % (39.0-77.0); PLATELET COUNT 273 10^3/UL (140-415); RED CELL DISTRIBUTION WIDTH 19.8 % (11.5-14.5); WHITE BLOOD COUNT 6.9 10^3/ul (4.8-10.8)
[2017-08-01 08:31] LABS: CALCIUM 10.3 mg/dl (8.4-10.2); CREATININE 1.07 mg/dl (0.44-1.00); POTASSIUM 3.9 mmol/L (3.5-5.1)
[2017-08-01] MEDS: COLLAGENASE 30 GM TUBE TOP SCH (09:00)
[2017-08-01] MEDS: ACETAMINOPHEN 325 MG TAB GTB PRN ×2 (11:31→22:25)
--- NOTE | 2017-08-01 12:04 | CONS ---
Date/Time of Note Date/Time of Note DATE: 08/01/17 TIME: 12:02 Assessment/Plan Assessment/Plan Additional Assessment/Plan Ventilator setting; AC of 10, tidal volume 500, PEEP of 5, 30% FiO2. Assessment and recommendations; 1. Patient with history of chronic respiratory failure and severe anoxic encephalopathy admitted for UTI and severe decubitus wound infection, currently on appropriate antibiotic regimen. 2. Diabetes. 3. Anemia. Continue current supportive care. Consultation Date/Type/Reason Admit Date/Time Jul 21, 2017 at 23:24 Initial Consult Date 07/22/17 Type of Consultation: Pulmonary Referring Provider: FLEX DENNISON NP 24 HR Interval Summary Free Text/Dictation Patient's condition remained stable. Remains essentially unresponsive. Has remained hemodynamically stable. General exam; middle-aged woman, on ventilator via tracheostomy, unresponsive, currently in no distress. Exam/Review of Systems Vital Signs Vitals Vital Signs Date Time Temp Pulse Resp B/P Pulse Ox O2 Delivery O2 Flow Rate FiO2 08/01/17 11:20 130 14 99 30 08/01/17 11:14 100.0 113/51 Intake and Output 07/31/17 07/31/17 08/01/17 15:00 23:00 07:00 Intake Total 1420 ml 960 ml Output Total 950 ml 1050 ml Balance 470 ml -90 ml Exam HEENT exam; supple neck, no JVD. No lymphadenopathy. Midline trachea. No thyromegaly. Tracheostomy in place. Patient has fair dentition. Chest exam; clear to auscultation. S1-S2 audible, no murmurs. Regular rhythm. Abdomen exam; soft, G-tube in place. No organomegaly. Bowel sounds audible. Extremity exam; no peripheral edema. 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 Results Result Diagram: 08/01/17 0804 08/01/17 0804 Results 24 hrs Laboratory Tests Test 07/31/17 12:52 07/31/17 17:40 07/31/17 21:18 08/01/17 00:18 Bedside Glucose 213 215 207 231 H Test 08/01/17 06:21 08/01/17 08:04 08/01/17 11:27 Bedside Glucose 254 H 251 H White Blood Count 6.9 Red Blood Count 3.10 L Hemoglobin 7.8 L Hematocrit 26.3 L Mean Corpuscular Volume 84.8 Mean Corpuscular Hemoglobin 25.2 L Mean Corpuscular Hemoglobin Concent 29.7 L Red Cell Distribution Width 19.8 H Platelet Count 273 Mean Platelet Volume 10.2 Neutrophils % 75.5 Lymphocytes % 14.3 L Monocytes % 6.5 Eosinophils % 2.7 Basophils % 0.1 Nucleated Red Blood Cells % 0.0 Neutrophils # 5.2 Lymphocytes # 1.0 Monocytes # 0.5 Eosinophils # 0.2 Basophils # 0.0 Nucleated Red Blood Cells # 0.0 Sodium Level 143 Potassium Level 3.9 Chloride Level 107 Carbon Dioxide Level 26 Anion Gap 14 Blood Urea Nitrogen 28 H Creatinine 1.07 H Glucose Level 222 H Calcium Level 10.3 H Medications Medications Current Medications M[facility] This patient stern... PRN PRN XX WOUND CARE; Start 07/22/17 at 03:30 Insulin Aspart (Novolog Insulin Pen) NOVOLOG *MILD* ALGORI... Q6 SC Last administered on 08/01/17 11:36; Admin Dose 3 UNIT; Start 07/22/17 at 06:00 Acetaminophen (Tylenol Tab) 650 mg Q4 PRN GTB ELEVATED TEMPERATURE Last administered on 08/01/17 11:31; Admin Dose 650 MG; Start 07/22/17 at 05:30 Baclofen (Lioresal) 20 mg TID GTB Last administered on 08/01/17 08:06; Admin Dose 20 MG; Start 07/22/17 at 09:00 Bisacodyl (Dulcolax Supp) 10 mg DAILY PRN [place] CONSTIPATION; Start 07/22/17 at 05:30 Docusate Sodium (Colace Liquid Cup) 100 mg BID GTB Last administered on 08:03; Admin Dose 100 MG; Start 07/22/17 at 09:00 Epoetin Andrey (Epogen (Esrd)) 15,000 units MoWeFr@17 SC Last administered on 17:45; Admin Dose 15,000 UNITS; Start 07/24/17 at 17:00 Magnesium Hydroxide (Milk Of Mag) 30 ml Q24H PRN PO CONSTIPATION; Start at 05:30 Magnesium Oxide (Mag-Ox 400) 800 mg DAILY GTB Last administered on 08/01/17 08:04; Admin Dose 800 MG; Start 07/22/17 at 09:00 Metoclopramide HCl (Reglan) 10 mg BID GTB Last administered on 08/01/17 08:04 ; Admin Dose 10 MG; Start 07/22/17 at 09:00 Mineral Oil (Fleet Mineral Oil Enema) 133 ml DAILY PRN [place] CONSTIPATION; Start 07/22/17 at 05:30 Multivitamins Therapeutic (Theragran) 1 tab DAILY GTB Last administered on 08:05; Admin Dose 1 TAB; Start 07/22/17 at 09:00 Sucralfate (Carafate) 1 gm DAILY GTB Last administered on 08/01/17 08:04; Admin Dose 1 GM; Start 07/22/17 at 09:00 Tramadol HCl (Ultram) 100 mg DAILY GTB Last administered on 08/01/17 08:05; Admin Dose 100 MG; Start 07/22/17 at 09:00 Acetaminophen/ Hydrocodone Bitart ([place] (5/325)) 1 tab Q6H PRN GTB PAIN LEVEL 7-10; Start 07/22/17 at 05:30 Miscellaneous Information 1 ea NOTE XX ; Start 07/22/17 at 15:00 Glucose (Glutose) 15 gm Q15M PRN PO DECREASED GLUCOSE; Start 07/22/17 at 15:00 Glucose (Glutose) 22.5 gm Q15M PRN PO DECREASED GLUCOSE; Start 07/22/17 at 15: 00 Dextrose (D50w Syringe) 25 ml Q15M PRN IV DECREASED GLUCOSE; Start 07/22/17 at 15:00 Dextrose (D50w Syringe) 50 ml Q15M PRN IV DECREASED GLUCOSE; Start 07/22/17 at 15:00 Glucagon (Glucagen) 1 mg Q15M PRN IM DECREASED GLUCOSE; Start 07/22/17 at 15: 00 Glucose (Glutose) 15 gm Q15M PRN BUCCAL DECREASED GLUCOSE; Start 07/22/17 at 15:00 Insulin Human NPH (Humulin N) 6 unit Q6 SC Last administered on 08/01/17 11: 37; Admin Dose 6 UNIT; Start 07/23/17 at 18:00 Linezolid (Zyvox) 600 mg BID PO Last administered on 08/01/17 08:05; Admin Dose 600 MG; Start 07/23/17 at 21:00 Fluconazole (Diflucan) 100 mg DAILY PO Last administered on 08/01/17 08:05; Admin Dose 100 MG; Start 07/25/17 at 09:00 Insulin Glargine 25 unit 25 unit DAILY@20 SC Last administered on 07/31/17 21 :48; Admin Dose 25 UNIT; Start 07/24/17 at 20:00 Colistimethate Sodium/Sodium Chloride (Coly-Mycin/NS) 100 ml @ 200 mls/hr Q12 IVPB Last administered on 08/01/17 08:06; Admin Dose 200 MLS/HR; Start 07/26 at 21:00 Sodium Hypochlorite (Dakin'S (Dilute 1/40%)) 1 applic BID IRR Last administered on 07/31/17 21:20; Admin Dose 1 APPLIC; Start 07/26/17 at 21:00 Lansoprazole (Prevacid) 30 mg BID@06,18 PO Last administered on 08/01/17 06: 22; Admin Dose 30 MG; Start 07/26/17 at 18:00 Zinc Sulfate (Zinc Sulfate) 220 mg DAILY GTB Last administered on 08/01/17 08 :04; Admin Dose 220 MG; Start 07/29/17 at 09:00 Ascorbic Acid (Vitamin C) 500 mg DAILY GTB Last administered on 08/01/17 08: 32; Admin Dose 500 MG; Start 07/29/17 at 09:00 Collagenase (Santyl) 1 applic PRN PRN TOP PRN; Start 08/01/17 at 04:30 Collagenase (Santyl) 1 applic DAILY TOP ; Start 08/01/17 at 09:00 ARYAN COLLADO Aug 01, 2017 12:03
--- NOTE | 2017-08-01 13:17 | CONS ---
Date/Time of Note Date/Time of Note DATE: 08/01/17 TIME: 13:16 Assessment/Plan Assessment/Plan Additional Assessment/Plan 1. Acute kidney injury due to ATN From sepsis + prerenal azotemia 2. Sepsis due to UTI 3. Chronic resp failure s/p Tracheostomy on ventilator 4/ Anemia of chronic disease 5/ HTN 6. UTI with Urine cx growing Gram negative rods Plan : Cr slighlty bumped to 1.07 continue Tube feeding as ordered ID following abx as per ID, pt is growing pseudomonas on Urine cx, and wound cx growing teresita, MRSA, acinetobacter IV abx colistin- renally dose all abx will follow up Consultation Date/Type/Reason Admit Date/Time Jul 21, 2017 at 23:24 Initial Consult Date 07/22/17 Type of Consultation: NEPHROLOGY Referring Provider: FLEX DENNISON NP 24 HR Interval Summary Free Text/Dictation Cr slightly bumpd to 1.07,BP stable, making good urine Exam/Review of Systems Vital Signs Vitals Vital Signs Date Time Temp Pulse Resp B/P Pulse Ox O2 Delivery O2 Flow Rate FiO2 08/01/17 12:00 133 08/01/17 11:20 14 99 30 08/01/17 11:14 100.0 113/51 Intake and Output 07/31/17 07/31/17 08/01/17 15:00 23:00 07:00 Intake Total 1420 ml 960 ml Output Total 950 ml 1050 ml Balance 470 ml -90 ml Exam Constitutional: non-verbal, + tracheostomy on ventilator Neck: non-tender, supple Respiratory: crackles/rales, diminished breath sounds Cardiovascular: nl pulses, regular rate and rhythm Gastrointestinal: non-tender, soft, +G tube Musculoskeletal: dry skin, pedal pulses 2+ Extremities: normal pulses Results Result Diagram: 08/01/17 0804 08/01/17 0804 Results 24 hrs Laboratory Tests Test 07/31/17 17:40 07/31/17 21:18 08/01/17 00:18 08/01/17 06:21 Bedside Glucose 215 207 231 H 254 H Test 08/01/17 08:04 08/01/17 11:27 White Blood Count 6.9 Red Blood Count 3.10 L Hemoglobin 7.8 L Hematocrit 26.3 L Mean Corpuscular Volume 84.8 Mean Corpuscular Hemoglobin 25.2 L Mean Corpuscular Hemoglobin Concent 29.7 L Red Cell Distribution Width 19.8 H Platelet Count 273 Mean Platelet Volume 10.2 Neutrophils % 75.5 Lymphocytes % 14.3 L Monocytes % 6.5 Eosinophils % 2.7 Basophils % 0.1 Nucleated Red Blood Cells % 0.0 Neutrophils # 5.2 Lymphocytes # 1.0 Monocytes # 0.5 Eosinophils # 0.2 Basophils # 0.0 Nucleated Red Blood Cells # 0.0 Sodium Level 143 Potassium Level 3.9 Chloride Level 107 Carbon Dioxide Level 26 Anion Gap 14 Blood Urea Nitrogen 28 H Creatinine 1.07 H Glucose Level 222 H Calcium Level 10.3 H Bedside Glucose 251 H Medications Medications Current Medications Miscellaneous [facility] This patient stern... PRN PRN XX WOUND CARE; Start 07/22/17 at 03:30 Insulin Aspart (Novolog Insulin Pen) NOVOLOG *MILD* ALGORI... Q6 SC Last administered on 08/01/17 11:36; Admin Dose 3 UNIT; Start 07/22/17 at 06:00 Acetaminophen (Tylenol Tab) 650 mg Q4 PRN GTB ELEVATED TEMPERATURE Last administered on 08/01/17 11:31; Admin Dose 650 MG; Start 07/22/17 at 05:30 Baclofen (Lioresal) 20 mg TID GTB Last administered on 08/01/17 08:06; Admin Dose 20 MG; Start 07/22/17 at 09:00 Bisacodyl (Dulcolax Supp) 10 mg DAILY PRN [place] CONSTIPATION; Start 07/22/17 at 05:30 Docusate Sodium (Colace Liquid Cup) 100 mg BID GTB Last administered on 08:03; Admin Dose 100 MG; Start 07/22/17 at 09:00 Epoetin Andrey (Epogen (Esrd)) 15,000 units MoWeFr@17 SC Last administered on 17:45; Admin Dose 15,000 UNITS; Start 07/24/17 at 17:00 Magnesium Hydroxide (Milk Of Mag) 30 ml Q24H PRN PO CONSTIPATION; Start at 05:30 Magnesium Oxide (Mag-Ox 400) 800 mg DAILY GTB Last administered on 08/01/17 08:04; Admin Dose 800 MG; Start 07/22/17 at 09:00 Metoclopramide HCl (Reglan) 10 mg BID GTB Last administered on 08/01/17 08:04 ; Admin Dose 10 MG; Start 07/22/17 at 09:00 Mineral Oil (Fleet Mineral Oil Enema) 133 ml DAILY PRN [place] CONSTIPATION; Start 07/22/17 at 05:30 Multivitamins Therapeutic (Theragran) 1 tab DAILY GTB Last administered on 08:05; Admin Dose 1 TAB; Start 07/22/17 at 09:00 Sucralfate (Carafate) 1 gm DAILY GTB Last administered on 08/01/17 08:04; Admin Dose 1 GM; Start 07/22/17 at 09:00 Tramadol HCl (Ultram) 100 mg DAILY GTB Last administered on 08/01/17 08:05; Admin Dose 100 MG; Start 07/22/17 at 09:00 Acetaminophen/ Hydrocodone Bitart ([place] (5/325)) 1 tab Q6H PRN GTB PAIN LEVEL 7-10; Start 07/22/17 at 05:30 Miscellaneous Information 1 ea NOTE XX ; Start 07/22/17 at 15:00 Glucose (Glutose) 15 gm Q15M PRN PO DECREASED GLUCOSE; Start 07/22/17 at 15:00 Glucose (Glutose) 22.5 gm Q15M PRN PO DECREASED GLUCOSE; Start 07/22/17 at 15: 00 Dextrose (D50w Syringe) 25 ml Q15M PRN IV DECREASED GLUCOSE; Start 07/22/17 at 15:00 Dextrose (D50w Syringe) 50 ml Q15M PRN IV DECREASED GLUCOSE; Start 07/22/17 at 15:00 Glucagon (Glucagen) 1 mg Q15M PRN IM DECREASED GLUCOSE; Start 07/22/17 at 15: 00 Glucose (Glutose) 15 gm Q15M PRN BUCCAL DECREASED GLUCOSE; Start 07/22/17 at 15:00 Insulin Human NPH (Humulin N) 6 unit Q6 SC Last administered on 08/01/17 11: 37; Admin Dose 6 UNIT; Start 07/23/17 at 18:00 Linezolid (Zyvox) 600 mg BID PO Last administered on 08/01/17 08:05; Admin Dose 600 MG; Start 07/23/17 at 21:00 Fluconazole (Diflucan) 100 mg DAILY PO Last administered on 08/01/17 08:05; Admin Dose 100 MG; Start 07/25/17 at 09:00 Insulin Glargine 25 unit 25 unit DAILY@20 SC Last administered on 07/31/17 21 :48; Admin Dose 25 UNIT; Start 07/24/17 at 20:00 Colistimethate Sodium/Sodium Chloride (Coly-Mycin/NS) 100 ml @ 200 mls/hr Q12 IVPB Last administered on 08/01/17 08:06; Admin Dose 200 MLS/HR; Start 07/26 at 21:00 Sodium Hypochlorite (Dakin'S (Dilute 1/40%)) 1 applic BID IRR Last administered on 07/31/17 21:20; Admin Dose 1 APPLIC; Start 07/26/17 at 21:00 Lansoprazole (Prevacid) 30 mg BID@06,18 PO Last administered on 08/01/17 06: 22; Admin Dose 30 MG; Start 07/26/17 at 18:00 Zinc Sulfate (Zinc Sulfate) 220 mg DAILY GTB Last administered on 08/01/17 08 :04; Admin Dose 220 MG; Start 07/29/17 at 09:00 Ascorbic Acid (Vitamin C) 500 mg DAILY GTB Last administered on 08/01/17 08: 32; Admin Dose 500 MG; Start 07/29/17 at 09:00 Collagenase (Santyl) 1 applic PRN PRN TOP PRN; Start 08/01/17 at 04:30 Collagenase (Santyl) 1 applic DAILY TOP ; Start 08/01/17 at 09:00 LIZETTE ALEX MD Aug 01, 2017 13:17
--- NOTE | 2017-08-01 14:26 | PN ---
Date/Time of Note Date/Time of Note DATE: 08/01/17 TIME: 14:25 Assessment/Plan VTE Prophylaxis VTE Prophylaxis Intervention: SCD's Lines/Catheters IV Catheter Type (from Nrs): PICC Line Central line still needed: Yes Urinary Cath still in place: Yes Reason Cath still needed: urinary retention Assessment/Plan Chief Complaint/Hosp Course Patient's continues to have low-grade fever, and tachycardia. Assessment/Plan -Sepsis secondary to UTI .possible pneumonia, infected wounds. Continue antibiotics per ID . Dr. Zavaleta is following in infection disease consultation. -Anemia of chronic disease, continue Epogen. Dr. Ruiz is following in gastroenterology consultation. -Advanced multiple sclerosis -Ventilator dependent respiratory failure. Dr. Blackwell is following in pulmonology consultation. -Dysphagia with PEG -Multiple decubitus ulcer, continue wound care per wound care consult. Dr. High is following in general surgery consultation. -Acute on chronic encephalopathy. Further recommendations based on clinical course. Plan of care discussed with Dr. Taylor. Problems: Exam/Review of Systems Vital Signs Vitals Vital Signs Date Time Temp Pulse Resp B/P Pulse Ox O2 Delivery O2 Flow Rate FiO2 08/01/17 13:20 103 13 100 30 08/01/17 11:14 100.0 113/51 Intake and Output 07/31/17 07/31/17 08/01/17 15:00 23:00 07:00 Intake Total 1420 ml 960 ml Output Total 950 ml 1050 ml Balance 470 ml -90 ml Exam Constitutional: non-verbal Head: normocephalic Neck: other (Tracheostomy) Respiratory: diminished breath sounds Cardiovascular: nl pulses Gastrointestinal: non-tender, other (G-tube), soft Musculoskeletal: muscle weakness Neurological: confused Skin: other (Multiple wounds) Results Result Diagram: 08/01/17 0804 08/01/17 0804 Results 24 hrs Laboratory Tests Test 07/31/17 17:40 07/31/17 21:18 08/01/17 00:18 08/01/17 06:21 Bedside Glucose 215 207 231 H 254 H Test 08/01/17 08:04 08/01/17 11:27 White Blood Count 6.9 Red Blood Count 3.10 L Hemoglobin 7.8 L Hematocrit 26.3 L Mean Corpuscular Volume 84.8 Mean Corpuscular Hemoglobin 25.2 L Mean Corpuscular Hemoglobin Concent 29.7 L Red Cell Distribution Width 19.8 H Platelet Count 273 Mean Platelet Volume 10.2 Neutrophils % 75.5 Lymphocytes % 14.3 L Monocytes % 6.5 Eosinophils % 2.7 Basophils % 0.1 Nucleated Red Blood Cells % 0.0 Neutrophils # 5.2 Lymphocytes # 1.0 Monocytes # 0.5 Eosinophils # 0.2 Basophils # 0.0 Nucleated Red Blood Cells # 0.0 Sodium Level 143 Potassium Level 3.9 Chloride Level 107 Carbon Dioxide Level 26 Anion Gap 14 Blood Urea Nitrogen 28 H Creatinine 1.07 H Glucose Level 222 H Calcium Level 10.3 H Bedside Glucose 251 H Medications Medications Current Medications Miscellaneous Information [facility] This patient stern... PRN PRN XX WOUND CARE; Start 07/22/17 at 03:30 Insulin Aspart (Novolog Insulin Pen) NOVOLOG *MILD* ALGORI... Q6 SC Last administered on 08/01/17 11:36; Admin Dose 3 UNIT; Start 07/22/17 at 06:00 Acetaminophen (Tylenol Tab) 650 mg Q4 PRN GTB ELEVATED TEMPERATURE Last administered on 08/01/17 11:31; Admin Dose 650 MG; Start 07/22/17 at 05:30 Baclofen (Lioresal) 20 mg TID GTB Last administered on 08/01/17 08:06; Admin Dose 20 MG; Start 07/22/17 at 09:00 Bisacodyl (Dulcolax Supp) 10 mg DAILY PRN [place] CONSTIPATION; Start 07/22/17 at 05:30 Docusate Sodium (Colace Liquid Cup) 100 mg BID GTB Last administered on 08:03; Admin Dose 100 MG; Start 07/22/17 at 09:00 Epoetin Andrey (Epogen (Esrd)) 15,000 units MoWeFr@17 SC Last administered on 17:45; Admin Dose 15,000 UNITS; Start 07/24/17 at 17:00 Magnesium Hydroxide (Milk Of Mag) 30 ml Q24H PRN PO CONSTIPATION; Start at 05:30 Magnesium Oxide (Mag-Ox 400) 800 mg DAILY GTB Last administered on 08/01/17 08:04; Admin Dose 800 MG; Start 07/22/17 at 09:00 Metoclopramide HCl (Reglan) 10 mg BID GTB Last administered on 08/01/17 08:04 ; Admin Dose 10 MG; Start 07/22/17 at 09:00 Mineral Oil (Fleet Mineral Oil Enema) 133 ml DAILY PRN [place] CONSTIPATION; Start 07/22/17 at 05:30 Multivitamins Therapeutic (Theragran) 1 tab DAILY GTB Last administered on 08:05; Admin Dose 1 TAB; Start 07/22/17 at 09:00 Sucralfate (Carafate) 1 gm DAILY GTB Last administered on 08/01/17 08:04; Admin Dose 1 GM; Start 07/22/17 at 09:00 Tramadol HCl (Ultram) 100 mg DAILY GTB Last administered on 08/01/17 08:05; Admin Dose 100 MG; Start 07/22/17 at 09:00 Acetaminophen/ Hydrocodone Bitart ([place] (5/325)) 1 tab Q6H PRN GTB PAIN LEVEL 7-10; Start 07/22/17 at 05:30 Miscellaneous Information 1 ea NOTE XX ; Start 07/22/17 at 15:00 Glucose (Glutose) 15 gm Q15M PRN PO DECREASED GLUCOSE; Start 07/22/17 at 15:00 Glucose (Glutose) 22.5 gm Q15M PRN PO DECREASED GLUCOSE; Start 07/22/17 at 15: 00 Dextrose (D50w Syringe) 25 ml Q15M PRN IV DECREASED GLUCOSE; Start 07/22/17 at 15:00 Dextrose (D50w Syringe) 50 ml Q15M PRN IV DECREASED GLUCOSE; Start 07/22/17 at 15:00 Glucagon (Glucagen) 1 mg Q15M PRN IM DECREASED GLUCOSE; Start 07/22/17 at 15: 00 Glucose (Glutose) 15 gm Q15M PRN BUCCAL DECREASED GLUCOSE; Start 07/22/17 at 15:00 Insulin Human NPH (Humulin N) 6 unit Q6 SC Last administered on 08/01/17 11: 37; Admin Dose 6 UNIT; Start 07/23/17 at 18:00 Linezolid (Zyvox) 600 mg BID PO Last administered on 08/01/17 08:05; Admin Dose 600 MG; Start 07/23/17 at 21:00 Fluconazole (Diflucan) 100 mg DAILY PO Last administered on 08/01/17 08:05; Admin Dose 100 MG; Start 07/25/17 at 09:00 Insulin Glargine 25 unit 25 unit DAILY@20 SC Last administered on 07/31/17 21 :48; Admin Dose 25 UNIT; Start 07/24/17 at 20:00 Colistimethate Sodium/Sodium Chloride (Coly-Mycin/NS) 100 ml @ 200 mls/hr Q12 IVPB Last administered on 08/01/17 08:06; Admin Dose 200 MLS/HR; Start 07/26 at 21:00 Sodium Hypochlorite (Dakin'S (Dilute 1/40%)) 1 applic BID IRR Last administered on 07/31/17 21:20; Admin Dose 1 APPLIC; Start 07/26/17 at 21:00 Lansoprazole (Prevacid) 30 mg BID@06,18 PO Last administered on 08/01/17 06: 22; Admin Dose 30 MG; Start 07/26/17 at 18:00 Zinc Sulfate (Zinc Sulfate) 220 mg DAILY GTB Last administered on 08/01/17 08 :04; Admin Dose 220 MG; Start 07/29/17 at 09:00 Ascorbic Acid (Vitamin C) 500 mg DAILY GTB Last administered on 08/01/17 08: 32; Admin Dose 500 MG; Start 07/29/17 at 09:00 Collagenase (Santyl) 1 applic PRN PRN TOP PRN; Start 08/01/17 at 04:30 Collagenase (Santyl) 1 applic DAILY TOP ; Start 08/01/17 at 09:00 ALIZA ANDRAED Aug 01, 2017 14:26
[2017-08-01] MEDS ORDERED: SOD CHLORIDE 0.9% 250 ML IV* ONE (14:27)
[2017-08-01] MEDS: SODIUM HYPOCHLORITE 1/40% 1L IRRIG IRR SCH ×2 (15:30→21:01)
[2017-08-01] MEDS: INSULIN GLARGINE [LANtus] 3 ML PEN SC SCH (20:30)
--- NOTE | 2017-08-01 21:11 | PN ---
DATE: 08/01/2017 SUBJECTIVE: No acute events. The patient is noncommunicative. Continues to spike fevers. She is tachycardic, in no distress. LABORATORY DATA: WBC 6.9, no shift, no bands. BUN 28, creatinine 1.07. MICROBIOLOGY: Urine culture repeated on 07/31/2017 is growing gram-negative rods. Blood cultures n egative. ANTIMICROBIALS: The patient remains on IV colistin, fluconazole and Zyvox. INDWELLINGS: Trach, PEG, Joel. ALLERGIES: CEPHALOSPORINS, PENICILLINS, LEVAQUIN, VANCOMYCIN. PHYSICAL EXAMINATION: GENERAL: This is a chronically ill-appearing, middle-aged woman who is in persistent vegetative sta te. HEENT: Head atraumatic, normocephalic. Sclerae anicteric. Buccal mucosa dry. NECK: Supple. CHEST: Rise symmetrical. Breath sounds diminished to bases. HEART: S1, S2. ABDOMEN: Soft, bowel tones present. EXTREMITIES: Wasted, contractures, without cyanosis. ASSESSMENT: 1. Sepsis with ongoing fevers. 2. Urinary tract infection. 3. Multiple unstageable wounds with wound culture growing multi-drug resistant organisms. 4. Anemia. 5. Acute renal failure. 6. Coagulase-negative Staphylococcus bacteremia on admission with repeat blood cultures have been n egative. PLAN: The patient remains unchanged, still with ongoing fevers. She is on appropriate antimicrobia ls. Surgery on case, pending debridement. Dictated By: FLEX DENNISON SCENARIO WRITER for CRISTINA WHITFIELD/HERI Conf#: [id number] DID#: [id number]
[2017-08-02] VITALS (23 sets, daily range): BP systolic 87–105; BP diastolic 52–59; PULSE 95–110; RESP 11–22
[2017-08-02] MEDS: NPH, HUMAN INSULIN ISOPHANE 3ML VIAL SC SCH ×4 (00:15→17:31)
[2017-08-02] MEDS: INSULIN ASPART [NOVOLOG] 3 ML PEN SC SCH ×4 (00:15→17:31)
[2017-08-02] MEDS: LANSOPRAZOLE 30 MG CAP PO SCH ×2 (05:07→17:23)
[2017-08-02 07:32] LABS: BASOPHILS % 0.3 % (0.0-2.0); EOSINOPHILS # 0.3 10^3/ul (0.0-0.5); EOSINOPHILS % 4.1 % (0.0-7.0); HEMATOCRIT 27.9 % (37.0-47.0); HEMOGLOBIN 8.1 g/dl (12.0-16.0); LYMPHOCYTES % 16.7 % (15.0-51.0); MEAN CORPUSCULAR HEMOGLOBIN 24.8 pg (29.0-33.0); MEAN CORPUSCULAR VOLUME 85.3 fl (82.0-101.0); MEAN PLATELET VOLUME 10.9 fl (7.4-10.4); MONOCYTE # 0.4 10^3/ul (0.3-0.9); MONOCYTES % 7.1 % (0.0-11.0); NEUTROPHIL # 4.4 10^3/ul (1.6-7.5); NEUTROPHILS % 70.8 % (39.0-77.0); PLATELET COUNT 257 10^3/UL (140-415); RED BLOOD COUNT 3.27 10^6/ul (4.20-5.40); WHITE BLOOD COUNT 6.2 10^3/ul (4.8-10.8)
[2017-08-02 07:57] LABS: CALCIUM 10.2 mg/dl (8.4-10.2); CREATININE 1.21 mg/dl (0.44-1.00); POTASSIUM 3.8 mmol/L (3.5-5.1)
[2017-08-02] MEDS: MULTIVITAMINS THERAPEUTIC TAB GTB SCH (08:56)
[2017-08-02] MEDS: SUCRALFATE 1 GM TAB GTB SCH (08:56)
[2017-08-02] MEDS: ACETAMINOPHEN 325 MG TAB GTB PRN (08:56)
[2017-08-02] MEDS: ZINC SULFATE 220 MG CAP GTB SCH (08:56)
[2017-08-02] MEDS: ZYVOX 600 MG TAB PO SCH ×2 (08:56→21:09)
[2017-08-02] MEDS: ASCORBIC ACID 500 MG TAB GTB SCH (08:57)
[2017-08-02] MEDS: METOCLOPRAMIDE 10 MG TAB GTB SCH ×2 (08:57→21:10)
[2017-08-02] MEDS: BACLOFEN 10 MG TAB GTB SCH ×3 (08:57→21:09)
[2017-08-02] MEDS: FLUCONAZOLE 100 MG TAB PO SCH (08:57)
[2017-08-02] MEDS: MAGNESIUM OXIDE 400 MG TAB GTB SCH (08:58)
[2017-08-02] MEDS: traMADol 50 MG TAB GTB SCH (08:58)
[2017-08-02] MEDS: DOCUSATE SODIUM 10 MG/ML (10ML CUP) GTB SCH ×2 (08:58→21:10)
[2017-08-02] MEDS: COLLAGENASE 30 GM TUBE TOP SCH (09:00)
[2017-08-02] MEDS: SODIUM HYPOCHLORITE 1/40% 1L IRRIG IRR SCH ×2 (09:01→21:11)
[2017-08-02] MEDS: COLISTIMETHATE 75 MG in SOD CHLORIDE 0.9% 100 ML IVPB SCH ×2 (09:13→21:47)
--- NOTE | 2017-08-02 11:39 | CONS ---
Date/Time of Note Date/Time of Note DATE: 08/02/17 TIME: 11:36 Assessment/Plan Assessment/Plan Additional Assessment/Plan Ventilator setting; AC of 10, tidal volume 500, PEEP of 5, 30% FiO2. Assessment and recommendations; 1. Patient admitted with UTI and sepsis from decubitus ulcers. Currently on appropriate antibiotic regimen. 2. Chronic respiratory failure which is ventilator dependent. 3. Patient is essentially in a vegetative state. 4. Anemia. Continue current supportive care. Consultation Date/Type/Reason Admit Date/Time Jul 21, 2017 at 23:24 Initial Consult Date 07/22/17 Type of Consultation: Pulmonary Referring Provider: FLEX DENNISON NP 24 HR Interval Summary Free Text/Dictation Patient condition remains stable. Patient remains unresponsive due to underlying severe anoxic brain injury. Has remained hemodynamically stable. General exam; middle-aged woman, on ventilator via tracheostomy, unresponsive, currently in no distress. Exam/Review of Systems Vital Signs Vitals Vital Signs Date Time Temp Pulse Resp B/P Pulse Ox O2 Delivery O2 Flow Rate FiO2 08/02/17 11:30 106 15 100 30 08/02/17 07:30 100.0 94/53 Intake and Output 08/01/17 08/01/17 08/02/17 15:00 23:00 07:00 Intake Total 150 ml 1060 ml 960 ml Output Total 450 ml 800 ml Balance 150 ml 610 ml 160 ml Exam HEENT exam; supple neck, no JVD. No lymphadenopathy. Midline trachea. No thyromegaly. Patient has fair dentition. Tracheostomy in place. Chest exam; diminished but clear breath sounds. S1-S2 audible, no murmurs. Regular rhythm. Abdomen exam; soft, G-tube in place. Nondistended. No organomegaly. Bowel sounds audible. Extremity exam; no peripheral edema. 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 Results Result Diagram: 08/02/1731 08/02/17 0631 Results 24 hrs Laboratory Tests Test 08/01/17 17:22 08/01/17 20:27 08/01/17 23:59 08/02/17 05:06 Bedside Glucose 204 177 231 H 194 Test 08/02/17 06:31 White Blood Count 6.2 Red Blood Count 3.27 L Hemoglobin 8.1 L Hematocrit 27.9 L Mean Corpuscular Volume 85.3 Mean Corpuscular Hemoglobin 24.8 L Mean Corpuscular Hemoglobin Concent 29.0 L Red Cell Distribution Width 19.0 H Platelet Count 257 Mean Platelet Volume 10.9 H Neutrophils % 70.8 Lymphocytes % 16.7 Monocytes % 7.1 Eosinophils % 4.1 Basophils % 0.3 Nucleated Red Blood Cells % 0.0 Neutrophils # 4.4 Lymphocytes # 1.0 Monocytes # 0.4 Eosinophils # 0.3 Basophils # 0.0 Nucleated Red Blood Cells # 0.0 Sodium Level 146 H Potassium Level 3.8 Chloride Level 108 Carbon Dioxide Level 26 Anion Gap 16 Blood Urea Nitrogen 33 H Creatinine 1.21 H Glucose Level 199 Calcium Level 10.2 Medications Medications Current Medications Miscellaneous Information (Pending [place] Order For Wound Care) This patient stern... PRN PRN XX WOUND CARE; Start 07/22/17 at 03:30 Insulin Aspart (Novolog Insulin Pen) NOVOLOG *MILD* ALGORI... Q6 SC Last administered on 08/02/17 05:21; Admin Dose 2 UNIT; Start 07/22/17 at 06:00 Acetaminophen (Tylenol Tab) 650 mg Q4 PRN GTB ELEVATED TEMPERATURE Last administered on 08/02/17 08:56; Admin Dose 650 MG; Start 07/22/17 at 05:30 Baclofen (Lioresal) 20 mg TID GTB Last administered on 08/02/17 08:57; Admin Dose 20 MG; Start 07/22/17 at 09:00 Bisacodyl (Dulcolax Supp) 10 mg DAILY PRN [place] CONSTIPATION; Start 07/22/17 at 05:30 Docusate Sodium (Colace Liquid Cup) 100 mg BID GTB Last administered on 08:58; Admin Dose 100 MG; Start 07/22/17 at 09:00 Epoetin Andrey (Epogen (Esrd)) 15,000 units MoWeFr@17 SC Last administered on 17:45; Admin Dose 15,000 UNITS; Start 07/24/17 at 17:00 Magnesium Hydroxide (Milk Of Mag) 30 ml Q24H PRN PO CONSTIPATION; Start at 05:30 Magnesium Oxide (Mag-Ox 400) 800 mg DAILY GTB Last administered on 08/02/17 08 :58; Admin Dose 800 MG; Start 07/22/17 at 09:00 Metoclopramide HCl (Reglan) 10 mg BID GTB Last administered on 08/02/17 08:57 ; Admin Dose 10 MG; Start 07/22/17 at 09:00 Mineral Oil (Fleet Mineral Oil Enema) 133 ml DAILY PRN [place] CONSTIPATION; Start 07/22/17 at 05:30 Multivitamins Therapeutic (Theragran) 1 tab DAILY GTB Last administered on 08/02 08:56; Admin Dose 1 TAB; Start 07/22/17 at 09:00 Sucralfate (Carafate) 1 gm DAILY GTB Last administered on 08/02/17 08:56; Admin Dose 1 GM; Start 07/22/17 at 09:00 Tramadol HCl (Ultram) 100 mg DAILY GTB Last administered on 08/02/17 08:58; Admin Dose 100 MG; Start 07/22/17 at 09:00 Acetaminophen/ Hydrocodone Bitart ([place] (5/325)) 1 tab Q6H PRN GTB PAIN LEVEL 7-10; Start 07/22/17 at 05:30 Miscellaneous Information 1 ea NOTE XX ; Start 07/22/17 at 15:00 Glucose (Glutose) 15 gm Q15M PRN PO DECREASED GLUCOSE; Start 07/22/17 at 15:00 Glucose (Glutose) 22.5 gm Q15M PRN PO DECREASED GLUCOSE; Start 07/22/17 at 15: 00 Dextrose (D50w Syringe) 25 ml Q15M PRN IV DECREASED GLUCOSE; Start 07/22/17 at 15:00 Dextrose (D50w Syringe) 50 ml Q15M PRN IV DECREASED GLUCOSE; Start 07/22/17 at 15:00 Glucagon (Glucagen) 1 mg Q15M PRN IM DECREASED GLUCOSE; Start 07/22/17 at 15: 00 Glucose (Glutose) 15 gm Q15M PRN BUCCAL DECREASED GLUCOSE; Start 07/22/17 at 15:00 Insulin Human NPH (Humulin N) 6 unit Q6 SC Last administered on 08/02/17 05:20 ; Admin Dose 6 UNIT; Start 07/23/17 at 18:00 Linezolid (Zyvox) 600 mg BID PO Last administered on 08/02/17 08:56; Admin Dose 600 MG; Start 07/23/17 at 21:00 Fluconazole (Diflucan) 100 mg DAILY PO Last administered on 08/02/17 08:57; Admin Dose 100 MG; Start 07/25/17 at 09:00 Insulin Glargine 25 unit 25 unit DAILY@20 SC Last administered on 08/01/17 20 :30; Admin Dose 25 UNIT; Start 07/24/17 at 20:00 Colistimethate Sodium/Sodium Chloride (Coly-Mycin/NS) 100 ml @ 200 mls/hr Q12 IVPB Last administered on 08/02/17 09:13; Admin Dose 200 MLS/HR; Start at 21:00 Sodium Hypochlorite (Dakin'S (Dilute 1/40%)) 1 applic BID IRR Last administered on 08/02/17 09:01; Admin Dose 1 APPLIC; Start 07/26/17 at 21:00 Lansoprazole (Prevacid) 30 mg BID@06,18 PO Last administered on 08/02/17 05:07 ; Admin Dose 30 MG; Start 07/26/17 at 18:00 Zinc Sulfate (Zinc Sulfate) 220 mg DAILY GTB Last administered on 08/02/17 08: 56; Admin Dose 220 MG; Start 07/29/17 at 09:00 Ascorbic Acid (Vitamin C) 500 mg DAILY GTB Last administered on 08/02/17 08:57 ; Admin Dose 500 MG; Start 07/29/17 at 09:00 Collagenase (Santyl) 1 applic PRN PRN TOP PRN; Start 08/01/17 at 04:30 Collagenase (Santyl) 1 applic DAILY TOP Last administered on 08/02/17 09:00; Admin Dose 1 APPLIC; Start 08/01/17 at 09:00 ARYAN COLLADO Aug 02, 2017 11:39
--- NOTE | 2017-08-02 13:28 | CONS ---
Date/Time of Note Date/Time of Note DATE: 08/02/17 TIME: 13:27 Consult Date/Type/Reason Admit Date/Time Jul 21, 2017 at 23:24 Initial Consult Date 07/22/17 Type of Consultation: ID Ordering Provider: FLEX DENNISON NP Objective Vital Signs Date Time Temp Pulse Resp B/P Pulse Ox O2 Delivery O2 Flow Rate FiO2 08/02/17 13:03 93 13 100 30 08/02/17 12:07 99.0 89/54 Intake and Output 08/01/17 08/01/17 08/02/17 15:00 23:00 07:00 Intake Total 150 ml 1060 ml 960 ml Output Total 450 ml 800 ml Balance 150 ml 610 ml 160 ml Results/Medications Result Diagram: 08/02/1731 08/02/1731 Results 24 hrs Laboratory Tests Test 08/01/17 17:22 08/01/17 20:27 08/01/17 23:59 08/02/17 05:06 Bedside Glucose 204 177 231 H 194 Test 08/02/17 06:31 08/02/17 11:30 White Blood Count 6.2 Red Blood Count 3.27 L Hemoglobin 8.1 L Hematocrit 27.9 L Mean Corpuscular Volume 85.3 Mean Corpuscular Hemoglobin 24.8 L Mean Corpuscular Hemoglobin Concent 29.0 L Red Cell Distribution Width 19.0 H Platelet Count 257 Mean Platelet Volume 10.9 H Neutrophils % 70.8 Lymphocytes % 16.7 Monocytes % 7.1 Eosinophils % 4.1 Basophils % 0.3 Nucleated Red Blood Cells % 0.0 Neutrophils # 4.4 Lymphocytes # 1.0 Monocytes # 0.4 Eosinophils # 0.3 Basophils # 0.0 Nucleated Red Blood Cells # 0.0 Sodium Level 146 H Potassium Level 3.8 Chloride Level 108 Carbon Dioxide Level 26 Anion Gap 16 Blood Urea Nitrogen 33 H Creatinine 1.21 H Glucose Level 199 Calcium Level 10.2 Bedside Glucose 250 H Medications Current Medications [facility] This patient stern... PRN PRN XX WOUND CARE; Start 07/22/17 at 03:30 Insulin Aspart (Novolog Insulin Pen) NOVOLOG *MILD* [place]I... Q6 SC Last administered on 08/02/17t 11:41; Admin Dose 3 UNIT; Start 07/22/17 at 06:00 Acetaminophen (Tylenol Tab) 650 mg Q4 PRN GTB ELEVATED TEMPERATURE Last administered on 08/02/17 08:56; Admin Dose 650 MG; Start 07/22/17 at 05:30 Baclofen (Lioresal) 20 mg TID GTB Last administered on 08/02/17 12:44; Admin Dose 20 MG; Start 07/22/17 at 09:00 Bisacodyl (Dulcolax Supp) 10 mg DAILY PRN [place] CONSTIPATION; Start 07/22/17 at 05:30 Docusate Sodium (Colace Liquid Cup) 100 mg BID GTB Last administered on 08:58; Admin Dose 100 MG; Start 07/22/17 at 09:00 Epoetin Andrey (Epogen (Esrd)) 15,000 units MoWeFr@17 SC Last administered on 17:45; Admin Dose 15,000 UNITS; Start 07/24/17 at 17:00 Magnesium Hydroxide (Milk Of Mag) 30 ml Q24H PRN PO CONSTIPATION; Start at 05:30 Magnesium Oxide (Mag-Ox 400) 800 mg DAILY GTB Last administered on 08/02/17 08 :58; Admin Dose 800 MG; Start 07/22/17 at 09:00 Metoclopramide HCl (Reglan) 10 mg BID GTB Last administered on 08/02/17 08:57 ; Admin Dose 10 MG; Start 07/22/17 at 09:00 Mineral Oil (Fleet Mineral Oil Enema) 133 ml DAILY PRN [place] CONSTIPATION; Start 07/22/17 at 05:30 Multivitamins Therapeutic (Theragran) 1 tab DAILY GTB Last administered on 08/02 08:56; Admin Dose 1 TAB; Start 07/22/17 at 09:00 Sucralfate (Carafate) 1 gm DAILY GTB Last administered on 08/02/17 08:56; Admin Dose 1 GM; Start 07/22/17 at 09:00 Tramadol HCl (Ultram) 100 mg DAILY GTB Last administered on 08/02/17 08:58; Admin Dose 100 MG; Start 07/22/17 at 09:00 Acetaminophen/ Hydrocodone Bitart ([place] (5/325)) 1 tab Q6H PRN GTB PAIN LEVEL 7-10; Start 07/22/17 at 05:30 Miscellaneous Information 1 ea NOTE XX ; Start 07/22/17 at 15:00 Glucose (Glutose) 15 gm Q15M PRN PO DECREASED GLUCOSE; Start 07/22/17 at 15:00 Glucose (Glutose) 22.5 gm Q15M PRN PO DECREASED GLUCOSE; Start 07/22/17 at 15: 00 Dextrose (D50w Syringe) 25 ml Q15M PRN IV DECREASED GLUCOSE; Start 07/22/17 at 15:00 Dextrose (D50w Syringe) 50 ml Q15M PRN IV DECREASED GLUCOSE; Start 07/22/17 at 15:00 Glucagon (Glucagen) 1 mg Q15M PRN IM DECREASED GLUCOSE; Start 07/22/17 at 15: 00 Glucose (Glutose) 15 gm Q15M PRN BUCCAL DECREASED GLUCOSE; Start 07/22/17 at 15:00 Insulin Human NPH (Humulin N) 6 unit Q6 SC Last administered on 08/02/17 11:40 ; Admin Dose 6 UNIT; Start 07/23/17 at 18:00 Linezolid (Zyvox) 600 mg BID PO Last administered on 08/02/17 08:56; Admin Dose 600 MG; Start 07/23/17 at 21:00 Fluconazole (Diflucan) 100 mg DAILY PO Last administered on 08/02/17 08:57; Admin Dose 100 MG; Start 07/25/17 at 09:00 Insulin Glargine 25 unit 25 unit DAILY@20 SC Last administered on 08/01/17 20 :30; Admin Dose 25 UNIT; Start 07/24/17 at 20:00 Colistimethate Sodium/Sodium Chloride (Coly-Mycin/NS) 100 ml @ 200 mls/hr Q12 IVPB Last administered on 08/02/17 09:13; Admin Dose 200 MLS/HR; Start at 21:00; Stop 08/02/17 at 23:45 Sodium Hypochlorite (Dakin'S (Dilute 1/40%)) 1 applic BID IRR Last administered on 08/02/17 09:01; Admin Dose 1 APPLIC; Start 07/26/17 at 21:00 Lansoprazole (Prevacid) 30 mg BID@06,18 PO Last administered on 08/02/17 05:07 ; Admin Dose 30 MG; Start 07/26/17 at 18:00 Zinc Sulfate (Zinc Sulfate) 220 mg DAILY GTB Last administered on 08/02/17 08: 56; Admin Dose 220 MG; Start 07/29/17 at 09:00 Ascorbic Acid (Vitamin C) 500 mg DAILY GTB Last administered on 08/02/17 08:57 ; Admin Dose 500 MG; Start 07/29/17 at 09:00 Collagenase (Santyl) 1 applic PRN PRN TOP PRN; Start 08/01/17 at 04:30 Collagenase 1 applic 1 applic DAILY TOP Last administered on 08/02/17 09:00; Admin Dose 1 APPLIC; Start 08/01/17 at 09:00 Colistimethate Sodium/Sodium Chloride (Coly-Mycin/NS) 100 ml @ 200 mls/hr Q24H IVPB ; Start 08/03/17 at 09:00 Assessment/Plan Chief Complaint/Hosp Course No acute changes, continues to spike fevers, looks comfortable Microbiology: Wound culture growing Acinetobacter, VRE, Pilar albicans, MRSA , coag negative staph species. Blood culture grew staph species, urine culture growing gram-negative rods Indwelling: Trach/PEG/PICC/Joel Abx: Colistin, Diflucan, Zyvox ALL: PCN, Levaquin, Vanco, Cephalosporins GENERAL: The patient is a nonverbal female who is awake, noncommunicative, no acute distress. SKIN: Without generalized rash. HEENT: Within normal limits. NECK: Supple. Lymph nodes nonpalpable. She has a tracheostomy in place. SKIN: She has a PICC line on the left side in the superior vena cava. CHEST: Decreased breath sounds at the bases. HEART: Without murmur or gallop. ABDOMEN: Soft, nontender. G-tube in place. + BT EXTREMITIES: Without cyanosis, clubbing or edema. Assessment: 1. Sepsis with ongoing fevers 2. UTI==> GNR 2. Ischial decub==> pending final cx 3. Acute on chronic anemia==> s/p bld tx, h/h stable 4. ARF=> nephrology follows 5. VDRF 6. Chronic encephalopathy 7. Bacteremia, possibly contaminant vs 2 to wounds Plan: Clinically unchanged, repeat bld cx's negative, repeat urine cx still + PSA, continue abx, local wound care, vent per pulmonary, surgical rec-s Dw staff Problems: FLEX DENNISON NP Aug 02, 2017 13:28
--- NOTE | 2017-08-02 14:36 | PN ---
Date/Time of Note Date/Time of Note DATE: 08/02/17 TIME: 14:31 Assessment/Plan Lines/Catheters IV Catheter Type (from Nrs): PICC Line Joel in Place (from Nrs): Yes Assessment/Plan Chief Complaint/Hosp Course 1. Multiple wound: 2/2 immobility; cultures noted -debridement -local care -frequent turning and off-loading -low air loss mattress -vitamin c -short term zinc -optimize nutrition 2. Hypochromic anemia: no acute bleed noted -monitor -transfuse as needed 3. UTI: cultures noted -abx per sensitivity -frequent bladder emptying/cath care 4. VDRF -pulm toilet -respiratory treatments Thank you. Patient seen and examined in collaboration with Dr. Hi High. Problems: Subjective 24 Hr Interval Summary Hypotension. Intermittent fevers-currently afebrile. Appears comfortable on vent. Non verbal indicators of pain not present. No congested cough, sz, vomiting, diarrhea, rash, new wounds. Exam/Review of Systems Vital Signs Vitals Vital Signs Date Time Temp Pulse Resp B/P Pulse Ox O2 Delivery O2 Flow Rate FiO2 08/02/17 13:03 93 13 100 30 08/02/17 12:07 99.0 89/54 Intake and Output 08/01/17 08/01/17 08/02/17 15:00 23:00 07:00 Intake Total 150 ml 1060 ml 960 ml Output Total 450 ml 800 ml Balance 150 ml 610 ml 160 ml Exam Free Text/Dictation Constitutional: alert, other (nonverbal) Head: atraumatic, normocephalic Eyes: nl lids, nl sclera, No icteric ENMT: mucosa pink and moist, nl nasal mucosa & septum Neck: non-tender, other (trach), supple Respiratory: other (vent), No labored breathing Cardiovascular: regular rate and rhythm Gastrointestinal: non-tender, other (peg; umbilical hernia, rotund), soft Extremities: normal pulses, other (stiffness) Neurological: other (withdraws from painful stimuli) Skin: other (multiple wounds: min drainage, min odor) Results Result Diagram: 08/02/1731 08/02/17 0631 SANFORD RODRIGUEZ NP Aug 02, 2017 14:36
--- NOTE | 2017-08-02 14:39 | PN ---
Date/Time of Note Date/Time of Note DATE: 08/01/17 TIME: 16:00 Assessment/Plan Lines/Catheters IV Catheter Type (from Nrs): PICC Line Joel in Place (from Nrs): Yes Assessment/Plan Chief Complaint/Hosp Course 1. Multiple wound: 2/2 immobility; cultures noted -debridement -local care -frequent turning and off-loading -low air loss mattress -vitamin c -short term zinc -optimize nutrition 2. Hypochromic anemia: no acute bleed noted -monitor -transfuse as needed 3. UTI: cultures noted -abx per sensitivity -frequent bladder emptying/cath care 4. VDRF -pulm toilet -respiratory treatments Thank you. Patient seen and examined in collaboration with Dr. Hi High. Problems: Subjective 24 Hr Interval Summary No acute events overnight. CR increased. Appears comfortable on vent. Non verbal indicators of pain not present. Exam/Review of Systems Vital Signs Vitals Vital Signs Date Time Temp Pulse Resp B/P Pulse Ox O2 Delivery O2 Flow Rate FiO2 08/02/17 13:03 93 13 100 30 08/02/17 12:07 99.0 89/54 Intake and Output 08/01/17 08/01/17 08/02/17 15:00 23:00 07:00 Intake Total 150 ml 1060 ml 960 ml Output Total 450 ml 800 ml Balance 150 ml 610 ml 160 ml Exam Free Text/Dictation Constitutional: alert, other (nonverbal) Head: atraumatic, normocephalic Eyes: nl lids, nl sclera, No icteric ENMT: mucosa pink and moist, nl nasal mucosa & septum Neck: non-tender, other (trach), supple Respiratory: other (vent), No labored breathing Cardiovascular: regular rate and rhythm Gastrointestinal: non-tender, other (peg; umbilical hernia, rotund), soft Extremities: normal pulses, other (stiffness) Neurological: other (withdraws from painful stimuli) Skin: other (multiple wounds: min drainage, min odor) Results Result Diagram: 08/02/1763008/02/17630 SANFORD RODRIGUEZ NP Aug 02, 2017 14:39
--- NOTE | 2017-08-02 16:13 | PN ---
Date/Time of Note Date/Time of Note DATE: 08/02/17 TIME: 16:12 Assessment/Plan VTE Prophylaxis VTE Prophylaxis Intervention: SCD's Lines/Catheters IV Catheter Type (from Nrs): PICC Line Central line still needed: Yes Urinary Cath still in place: Yes Reason Cath still needed: urinary retention Assessment/Plan Chief Complaint/Hosp Course Patient's continues to have low-grade fever, occasional tachycardia, borderline BP, looks comfortable on vent Assessment/Plan -Sepsis secondary to UTI .possible pneumonia, infected wounds. Continue antibiotics per ID . Dr. Zavaleta is following in infection disease consultation. -Anemia of chronic disease, continue Epogen. Dr. Ruiz is following in gastroenterology consultation. -Advanced multiple sclerosis -Ventilator dependent respiratory failure. Dr. Blackwell is following in pulmonology consultation. -Dysphagia with PEG -Multiple decubitus ulcer, continue wound care per wound care consult. Dr. High is following in general surgery consultation. -Acute on chronic encephalopathy. Further recommendations based on clinical course. Plan of care discussed with Dr. Taylor. Problems: Exam/Review of Systems Vital Signs Vitals Vital Signs Date Time Temp Pulse Resp B/P Pulse Ox O2 Delivery O2 Flow Rate FiO2 08/02/17 15:52 98.7 88 18 89/52 98 08/02/17 15:05 30 Intake and Output 08/01/17 08/01/17 08/02/17 15:00 23:00 07:00 Intake Total 150 ml 1060 ml 960 ml Output Total 450 ml 800 ml Balance 150 ml 610 ml 160 ml Exam Constitutional: non-verbal Head: normocephalic Neck: other (Tracheostomy) Respiratory: diminished breath sounds Cardiovascular: nl pulses Gastrointestinal: non-tender, other (G-tube), soft Musculoskeletal: muscle weakness Neurological: confused Skin: other (Multiple wounds) Results Result Diagram: 08/02/17 0631 08/02/17 0631 Results 24 hrs Laboratory Tests Test 08/01/17 17:22 08/01/17 20:27 08/01/17 23:59 08/02/17 05:06 Bedside Glucose 204 177 231 H 194 Test 08/02/17 06:31 08/02/17 11:30 White Blood Count 6.2 Red Blood Count 3.27 L Hemoglobin 8.1 L Hematocrit 27.9 L Mean Corpuscular Volume 85.3 Mean Corpuscular Hemoglobin 24.8 L Mean Corpuscular Hemoglobin Concent 29.0 L Red Cell Distribution Width 19.0 H Platelet Count 257 Mean Platelet Volume 10.9 H Neutrophils % 70.8 Lymphocytes % 16.7 Monocytes % 7.1 Eosinophils % 4.1 Basophils % 0.3 Nucleated Red Blood Cells % 0.0 Neutrophils # 4.4 Lymphocytes # 1.0 Monocytes # 0.4 Eosinophils # 0.3 Basophils # 0.0 Nucleated Red Blood Cells # 0.0 Sodium Level 146 H Potassium Level 3.8 Chloride Level 108 Carbon Dioxide Level 26 Anion Gap 16 Blood Urea Nitrogen 33 H Creatinine 1.21 H Glucose Level 199 Calcium Level 10.2 Bedside Glucose 250 H Medications Medications Current Medications Miscellaneous Information ([facility] This patient stern... PRN PRN XX WOUND CARE; Start 07/22/17 at 03:30 Insulin Aspart (Novolog Insulin Pen) NOVOLOG *MILD* ALGORI... Q6 SC Last administered on 08/02/17 11:41; Admin Dose 3 UNIT; Start 07/22/17 at 06:00 Acetaminophen (Tylenol Tab) 650 mg Q4 PRN GTB ELEVATED TEMPERATURE Last administered on 08/02/17 08:56; Admin Dose 650 MG; Start 07/22/17 at 05:30 Baclofen (Lioresal) 20 mg TID GTB Last administered on 08/02/17 12:44; Admin Dose 20 MG; Start 07/22/17 at 09:00 Bisacodyl (Dulcolax Supp) 10 mg DAILY PRN [place] CONSTIPATION; Start 07/22/17 at 05:30 Docusate Sodium (Colace Liquid Cup) 100 mg BID GTB Last administered on 08:58; Admin Dose 100 MG; Start 07/22/17 at 09:00 Epoetin Andrey (Epogen (Esrd)) 15,000 units MoWeFr@17 SC Last administered on 17:45; Admin Dose 15,000 UNITS; Start 07/24/17 at 17:00 Magnesium Hydroxide (Milk Of Mag) 30 ml Q24H PRN PO CONSTIPATION; Start at 05:30 Magnesium Oxide (Mag-Ox 400) 800 mg DAILY GTB Last administered on 08/02/17 08 :58; Admin Dose 800 MG; Start 07/22/17 at 09:00 Metoclopramide HCl (Reglan) 10 mg BID GTB Last administered on 08/02/17 08:57 ; Admin Dose 10 MG; Start 07/22/17 at 09:00 Mineral Oil (Fleet Mineral Oil Enema) 133 ml DAILY PRN [place] CONSTIPATION; Start 07/22/17 at 05:30 Multivitamins Therapeutic (Theragran) 1 tab DAILY GTB Last administered on 08/02 08:56; Admin Dose 1 TAB; Start 07/22/17 at 09:00 Sucralfate (Carafate) 1 gm DAILY GTB Last administered on 08/02/17 08:56; Admin Dose 1 GM; Start 07/22/17 at 09:00 Tramadol HCl (Ultram) 100 mg DAILY GTB Last administered on 08/02/17 08:58; Admin Dose 100 MG; Start 07/22/17 at 09:00 Acetaminophen/ Hydrocodone Bitart ([place] (5/325)) 1 tab Q6H PRN GTB PAIN LEVEL 7-10; Start 07/22/17 at 05:30 Miscellaneous Information 1 ea NOTE XX ; Start 07/22/17 at 15:00 Glucose (Glutose) 15 gm Q15M PRN PO DECREASED GLUCOSE; Start 07/22/17 at 15:00 Glucose (Glutose) 22.5 gm Q15M PRN PO DECREASED GLUCOSE; Start 07/22/17 at 15: 00 Dextrose (D50w Syringe) 25 ml Q15M PRN IV DECREASED GLUCOSE; Start 07/22/17 at 15:00 Dextrose (D50w Syringe) 50 ml Q15M PRN IV DECREASED GLUCOSE; Start 07/22/17 at 15:00 Glucagon (Glucagen) 1 mg Q15M PRN IM DECREASED GLUCOSE; Start 07/22/17 at 15: 00 Glucose (Glutose) 15 gm Q15M PRN BUCCAL DECREASED GLUCOSE; Start 07/22/17 at 15:00 Insulin Human NPH (Humulin N) 6 unit Q6 SC Last administered on 08/02/17 11:40 ; Admin Dose 6 UNIT; Start 07/23/17 at 18:00 Linezolid (Zyvox) 600 mg BID PO Last administered on 08/02/17 08:56; Admin Dose 600 MG; Start 07/23/17 at 21:00 Fluconazole (Diflucan) 100 mg DAILY PO Last administered on 08/02/17 08:57; Admin Dose 100 MG; Start 07/25/17 at 09:00 Insulin Glargine 25 unit 25 unit DAILY@20 SC Last administered on 08/01/17 20 :30; Admin Dose 25 UNIT; Start 07/24/17 at 20:00 Colistimethate Sodium/Sodium Chloride (Coly-Mycin/NS) 100 ml @ 200 mls/hr Q12 IVPB Last administered on 08/02/17 09:13; Admin Dose 200 MLS/HR; Start at 21:00; Stop 08/02/17 at 23:45 Sodium Hypochlorite (Dakin'S (Dilute 1/40%)) 1 applic BID IRR Last administered on 08/02/17 09:01; Admin Dose 1 APPLIC; Start 07/26/17 at 21:00 Lansoprazole (Prevacid) 30 mg BID@06,18 PO Last administered on 08/02/17 05:07 ; Admin Dose 30 MG; Start 07/26/17 at 18:00 Zinc Sulfate (Zinc Sulfate) 220 mg DAILY GTB Last administered on 08/02/17 08: 56; Admin Dose 220 MG; Start 07/29/17 at 09:00 Ascorbic Acid (Vitamin C) 500 mg DAILY GTB Last administered on 08/02/17 08:57 ; Admin Dose 500 MG; Start 07/29/17 at 09:00 Collagenase (Santyl) 1 applic PRN PRN TOP PRN; Start 08/01/17 at 04:30 Collagenase 1 applic 1 applic DAILY TOP Last administered on 08/02/17 09:00; Admin Dose 1 APPLIC; Start 08/01/17 at 09:00 Colistimethate Sodium/Sodium Chloride (Coly-Mycin/NS) 100 ml @ 200 mls/hr Q24H IVPB ; Start 08/03/17 at 09:00 ALIZA ANDRADE Aug 02, 2017 16:13
[2017-08-02] MEDS: EPOETIN 10000 UNITS/1 ML INJ (ESRD) SC SCH (17:25)
[2017-08-02] MEDS: INSULIN GLARGINE [LANtus] 3 ML PEN SC SCH (21:22)
[2017-08-03] VITALS (25 sets, daily range): BP systolic 88–130; BP diastolic 52–88; PULSE 98–131; RESP 12–24
[2017-08-03] MEDS: INSULIN ASPART [NOVOLOG] 3 ML PEN SC SCH ×5 (00:34→23:44)
[2017-08-03] MEDS: NPH, HUMAN INSULIN ISOPHANE 3ML VIAL SC SCH ×5 (00:39→23:38)
[2017-08-03] MEDS: LANSOPRAZOLE 30 MG CAP PO SCH ×2 (05:35→17:29)
[2017-08-03 06:26] LABS: ABNORMAL IP MESSAGE 1; BASOPHILS % 0.3 % (0.0-2.0); EOSINOPHILS # 0.3 10^3/ul (0.0-0.5); EOSINOPHILS % 4.2 % (0.0-7.0); LYMPHOCYTES # 1.2 10^3/ul (0.8-2.9); LYMPHOCYTES % 18.5 % (15.0-51.0); MEAN CORPUSCULAR HEMOGLOBIN 24.5 pg (29.0-33.0); MEAN CORPUSCULAR HGB CONC 28.6 g/dl (32.0-37.0); MEAN CORPUSCULAR VOLUME 85.9 fl (82.0-101.0); MEAN PLATELET VOLUME 10.5 fl (7.4-10.4); MONOCYTE # 0.4 10^3/ul (0.3-0.9); MONOCYTES % 6.5 % (0.0-11.0); NEUTROPHIL # 4.3 10^3/ul (1.6-7.5); NEUTROPHILS % 69.4 % (39.0-77.0); PLATELET COUNT 264 10^3/UL (140-415); RED BLOOD COUNT 3.26 10^6/ul (4.20-5.40); RED CELL DISTRIBUTION WIDTH 19.2 % (11.5-14.5); WHITE BLOOD COUNT 6.3 10^3/ul (4.8-10.8)
[2017-08-03 06:37] LABS: POSITIVE DIFF @See below
[2017-08-03 07:07] LABS: CALCIUM 9.9 mg/dl (8.4-10.2); CREATININE 1.29 mg/dl (0.44-1.00); POTASSIUM 3.7 mmol/L (3.5-5.1)
[2017-08-03] MEDS: traMADol 50 MG TAB GTB SCH (09:00)
[2017-08-03] MEDS: SODIUM HYPOCHLORITE 1/40% 1L IRRIG IRR SCH ×2 (09:00→21:04)
[2017-08-03] MEDS: COLISTIMETHATE 135 MG in SOD CHLORIDE 0.9% 100 ML IVPB SCH (09:01)
[2017-08-03] MEDS: DOCUSATE SODIUM 10 MG/ML (10ML CUP) GTB SCH ×2 (09:02→21:02)
[2017-08-03] MEDS: SUCRALFATE 1 GM TAB GTB SCH (09:02)
[2017-08-03] MEDS: METOCLOPRAMIDE 10 MG TAB GTB SCH ×2 (09:02→21:02)
[2017-08-03] MEDS: BACLOFEN 10 MG TAB GTB SCH ×3 (09:02→21:02)
[2017-08-03] MEDS: FLUCONAZOLE 100 MG TAB PO SCH (09:02)
[2017-08-03] MEDS: ZINC SULFATE 220 MG CAP GTB SCH (09:02)
[2017-08-03] MEDS: MULTIVITAMINS THERAPEUTIC TAB GTB SCH (09:02)
[2017-08-03] MEDS: MAGNESIUM OXIDE 400 MG TAB GTB SCH (09:03)
[2017-08-03] MEDS: ZYVOX 600 MG TAB PO SCH ×2 (09:03→21:02)
[2017-08-03] MEDS: ASCORBIC ACID 500 MG TAB GTB SCH (09:03)
[2017-08-03] MEDS: COLLAGENASE 30 GM TUBE TOP SCH (09:10)
--- NOTE | 2017-08-03 11:55 | CONS ---
Date/Time of Note Date/Time of Note DATE: 08/03/17 TIME: 11:53 Assessment/Plan Assessment/Plan Additional Assessment/Plan Ventilator setting; AC of 10, tidal volume 500, PEEP of 5, 30% FiO2. Assessment and recommendations; 1. Patient admitted with sepsis due to decubitus ulcers and UTI currently on appropriate antibiotic regimen. 2. Anemia. 3. Chronic respiratory failure which is ventilator dependent. Patient with history of severe anoxic encephalopathy. Continue current supportive care. Consultation Date/Type/Reason Admit Date/Time Jul 21, 2017 at 23:24 Initial Consult Date 07/22/17 Type of Consultation: Pulmonary Referring Provider: FLEX DENNISON NP 24 HR Interval Summary Free Text/Dictation Patient's condition is stable. Remains unresponsive due to anoxic brain injury. Has remained hemodynamically stable. General exam; middle-aged woman, on ventilator via tracheostomy, unresponsive, currently in no distress. Exam/Review of Systems Vital Signs Vitals Vital Signs Date Time Temp Pulse Resp B/P Pulse Ox O2 Delivery O2 Flow Rate FiO2 08/03/17 11:18 99.3 85 16 130/88 98 08/03/17 07:56 30 Intake and Output 08/02/17 08/02/17 08/03/17 15:00 23:00 07:00 Intake Total 1060 ml 810 ml Output Total 700 ml 1000 ml Balance 360 ml -190 ml Exam HEENT exam; supple neck, no JVD. No lymphadenopathy. Midline trachea. No thyromegaly. Tracheostomy in place. Patient has fair dentition. Chest exam; clear to auscultation. S1-S2 audible, no murmurs. Regular rhythm. Abdomen exam; soft, G-tube in place. Bowel sounds audible. No organomegaly. Extremity exam; no peripheral edema. PUZZLE ASSEMBLER exam; patient remains unresponsive. Results Result Diagram: 08/03/17 0530 08/03/17 0530 Results 24 hrs Laboratory Tests Test 08/02/17 17:21 08/02/17 21:13 08/03/17 00:28 08/03/17 05:29 Bedside Glucose 216 200 215 210 Test 08/03/17 05:30 08/03/17 06:52 08/03/17 11:29 White Blood Count 6.3 Red Blood Count 3.26 L Hemoglobin 8.0 L Hematocrit 28.0 L Mean Corpuscular Volume 85.9 Mean Corpuscular Hemoglobin 24.5 L Mean Corpuscular Hemoglobin Concent 28.6 L Red Cell Distribution Width 19.2 H Platelet Count 264 Mean Platelet Volume 10.5 H Neutrophils % 69.4 Lymphocytes % 18.5 Monocytes % 6.5 Eosinophils % 4.2 Basophils % 0.3 Nucleated Red Blood Cells % 0.0 Neutrophils # 4.3 Lymphocytes # 1.2 Monocytes # 0.4 Eosinophils # 0.3 Basophils # 0.0 Nucleated Red Blood Cells # 0.0 Sodium Level 144 Potassium Level 3.7 Chloride Level 108 Carbon Dioxide Level 24 Anion Gap 16 Blood Urea Nitrogen 33 H Creatinine 1.29 H Glucose Level 216 Calcium Level 9.9 Lab Scanned Report BLOOD TRANSFUSION Bedside Glucose 199 Medications Medications Current Medications Miscellaneous Information (Pending Santyl Order For Wound Care) This patient stern... PRN PRN XX WOUND CARE; Start 07/22/17 at 03:30 Insulin Aspart (Novolog Insulin Pen) NOVOLOG *MILD* ALGORI... Q6 SC Last administered on 08/03/17 11:33; Admin Dose 2 UNIT; Start 07/22/17 at 06:00 Acetaminophen (Tylenol Tab) 650 mg Q4 PRN GTB ELEVATED TEMPERATURE Last administered on 08/02/17 08:56; Admin Dose 650 MG; Start 07/22/17 at 05:30 Baclofen (Lioresal) 20 mg TID GTB Last administered on 08/03/17 09:02; Admin Dose 20 MG; Start 07/22/17 at 09:00 Bisacodyl (Dulcolax Supp) 10 mg DAILY PRN [place] CONSTIPATION; Start 07/22/17 at 05:30 Docusate Sodium (Colace Liquid Cup) 100 mg BID GTB Last administered on 09:02; Admin Dose 100 MG; Start 07/22/17 at 09:00 Epoetin Andrey (Epogen (Esrd)) 15,000 units MoWeFr@17 SC Last administered on 17:25; Admin Dose 15,000 UNITS; Start 07/24/17 at 17:00 Magnesium Hydroxide (Milk Of Mag) 30 ml Q24H PRN PO CONSTIPATION; Start at 05:30 Magnesium Oxide (Mag-Ox 400) 800 mg DAILY GTB Last administered on 08/03/17 09 :03; Admin Dose 800 MG; Start 07/22/17 at 09:00 Metoclopramide HCl (Reglan) 10 mg BID GTB Last administered on 08/03/17 09:02 ; Admin Dose 10 MG; Start 07/22/17 at 09:00 Mineral Oil (Fleet Mineral Oil Enema) 133 ml DAILY PRN IN CONSTIPATION; Start 07/22/17 at 05:30 Multivitamins Therapeutic (Theragran) 1 tab DAILY GTB Last administered on 08/03 09:02; Admin Dose 1 TAB; Start 07/22/17 at 09:00 Sucralfate (Carafate) 1 gm DAILY GTB Last administered on 08/03/17 09:02; Admin Dose 1 GM; Start 07/22/17 at 09:00 Tramadol HCl (Ultram) 100 mg DAILY GTB Last administered on 08/02/17 08:58; Admin Dose 100 MG; Start 07/22/17 at 09:00 Acetaminophen/ Hydrocodone Bitart ([place] (5/325)) 1 tab Q6H PRN GTB PAIN LEVEL 7-10; Start 07/22/17 at 05:30 Miscellaneous Information 1 ea NOTE XX ; Start 07/22/17 at 15:00 Glucose (Glutose) 15 gm Q15M PRN PO DECREASED GLUCOSE; Start 07/22/17 at 15:00 Glucose (Glutose) 22.5 gm Q15M PRN PO DECREASED GLUCOSE; Start 07/22/17 at 15: 00 Dextrose (D50w Syringe) 25 ml Q15M PRN IV DECREASED GLUCOSE; Start 07/22/17 at 15:00 Dextrose (D50w Syringe) 50 ml Q15M PRN IV DECREASED GLUCOSE; Start 07/22/17 at 15:00 Glucagon (Glucagen) 1 mg Q15M PRN IM DECREASED GLUCOSE; Start 07/22/17 at 15: 00 Glucose (Glutose) 15 gm Q15M PRN BUCCAL DECREASED GLUCOSE; Start 07/22/17 at 15:00 Insulin Human NPH (Humulin N) 6 unit Q6 SC Last administered on 08/03/17 11:32 ; Admin Dose 6 UNIT; Start 07/23/17 at 18:00 Linezolid (Zyvox) 600 mg BID PO Last administered on 08/03/17 09:03; Admin Dose 600 MG; Start 07/23/17 at 21:00 Fluconazole (Diflucan) 100 mg DAILY PO Last administered on 08/03/17 09:02; Admin Dose 100 MG; Start 07/25/17 at 09:00 Insulin Glargine (Lantus) 25 unit DAILY@20 SC Last administered on 08/02/17 21 :22; Admin Dose 25 UNIT; Start 07/24/17 at 20:00 Sodium Hypochlorite (Dakin'S (Dilute 1/40%)) 1 applic BID IRR Last administered on 08/03/17 09:00; Admin Dose 1 APPLIC; Start 07/26/17 at 21:00 Lansoprazole (Prevacid) 30 mg BID@06,18 PO Last administered on 08/03/17 05:35 ; Admin Dose 30 MG; Start 07/26/17 at 18:00 Zinc Sulfate (Zinc Sulfate) 220 mg DAILY GTB Last administered on 08/03/17 09: 02; Admin Dose 220 MG; Start 07/29/17 at 09:00 Ascorbic Acid (Vitamin C) 500 mg DAILY GTB Last administered on 08/03/17 09:03 ; Admin Dose 500 MG; Start 07/29/17 at 09:00 Collagenase (Santyl) 1 applic PRN PRN TOP PRN; Start 08/01/17 at 04:30 Collagenase 1 applic 1 applic DAILY TOP Last administered on 08/03/17 09:10; Admin Dose 1 APPLIC; Start 08/01/17 at 09:00 Colistimethate Sodium/Sodium Chloride (Coly-Mycin/NS) 100 ml @ 200 mls/hr Q24H IVPB Last administered on 08/03/17 09:01; Admin Dose 200 MLS/HR; Start at 09:00 ARYAN COLLADO Aug 03, 2017 11:55
--- NOTE | 2017-08-03 13:28 | PN ---
Date/Time of Note Date/Time of Note DATE: 08/03/17 TIME: 13:23 Assessment/Plan Lines/Catheters IV Catheter Type (from Nrs): PICC Line Joel in Place (from Nrs): Yes Assessment/Plan Chief Complaint/Hosp Course 1. Multiple wound: 2/2 immobility; cultures noted -debridement when medically optimized (still w tachycardia and fevers) -local care-bid -frequent turning and off-loading -low air loss mattress -vitamin c -short term zinc -optimize nutrition 2. Hypochromic anemia: no acute bleed noted -monitor -transfuse as needed 3. UTI: cultures noted -abx per sensitivity -frequent bladder emptying/cath care 4. VDRF -pulm toilet -respiratory treatments 5. Anemia: no no bleed noted; on epogen -monitor -transfuse as needed Thank you. Patient seen and examined in collaboration with Dr. Hi High. Problems: Subjective 24 Hr Interval Summary Having low-grade temps and tachycardia. diaphoretic. Appears comfortable on vent. Nonverbal indicators of pain not present. Exam/Review of Systems Vital Signs Vitals Vital Signs Date Time Temp Pulse Resp B/P Pulse Ox O2 Delivery O2 Flow Rate FiO2 08/03/17 12:39 130 08/03/17 11:18 99.3 16 130/88 98 08/03/17 07:56 30 Intake and Output 08/02/17 08/02/17 08/03/17 15:00 23:00 07:00 Intake Total 1060 ml 810 ml Output Total 700 ml 1000 ml Balance 360 ml -190 ml Exam Free Text/Dictation Constitutional: alert, other (nonverbal), diaphoretic Head: atraumatic, normocephalic Eyes: nl lids, nl sclera, No icteric ENMT: mucosa pink and moist, nl nasal mucosa & septum Neck: non-tender, other (trach), supple Respiratory: other (vent), No labored breathing Cardiovascular: regular rate and rhythm Gastrointestinal: non-tender, other (peg; umbilical hernia, rotund), soft Extremities: normal pulses, other (stiffness) Neurological: other (withdraws from painful stimuli) Skin: other (multiple wounds: mod drainage, improved odor) Results Result Diagram: 08/03/1752908/03/17529 SANFORD RODRIGUEZ SHORTAGE WORKER Aug 03, 2017 13:28
--- NOTE | 2017-08-03 14:13 | CONS ---
Date/Time of Note Date/Time of Note DATE: 08/03/17 TIME: 14:12 Consult Date/Type/Reason Admit Date/Time Jul 21, 2017 at 23:24 Initial Consult Date 07/22/17 Type of Consultation: id Ordering Provider: FLEX DENNISON NP Objective Vital Signs Date Time Temp Pulse Resp B/P Pulse Ox O2 Delivery O2 Flow Rate FiO2 08/03/17 12:39 130 08/03/17 11:18 99.3 16 130/88 98 08/03/17 07:56 30 Intake and Output 08/02/17 08/02/17 08/03/17 15:00 23:00 07:00 Intake Total 1060 ml 810 ml Output Total 700 ml 1000 ml Balance 360 ml -190 ml Results/Medications Result Diagram: 08/03/17 0530 08/03/17 0530 Results 24 hrs Laboratory Tests Test 08/02/17 17:21 08/02/17 21:13 08/03/17 00:28 08/03/17 05:29 Bedside Glucose 216 200 215 210 Test 08/03/17 05:30 08/03/17 06:52 08/03/17 11:29 White Blood Count 6.3 Red Blood Count 3.26 L Hemoglobin 8.0 L Hematocrit 28.0 L Mean Corpuscular Volume 85.9 Mean Corpuscular Hemoglobin 24.5 L Mean Corpuscular Hemoglobin Concent 28.6 L Red Cell Distribution Width 19.2 H Platelet Count 264 Mean Platelet Volume 10.5 H Neutrophils % 69.4 Lymphocytes % 18.5 Monocytes % 6.5 Eosinophils % 4.2 Basophils % 0.3 Nucleated Red Blood Cells % 0.0 Neutrophils # 4.3 Lymphocytes # 1.2 Monocytes # 0.4 Eosinophils # 0.3 Basophils # 0.0 Nucleated Red Blood Cells # 0.0 Sodium Level 144 Potassium Level 3.7 Chloride Level 108 Carbon Dioxide Level 24 Anion Gap 16 Blood Urea Nitrogen 33 H Creatinine 1.29 H Glucose Level 216 Calcium Level 9.9 Lab Scanned Report BLOOD TRANSFUSION Bedside Glucose 199 Medications Current Medications Miscellaneous Information (Pending Santyl Order For Wound Care) This patient stern... PRN PRN XX WOUND CARE; Start 07/22/17 at 03:30 Insulin Aspart (Novolog Insulin Pen) NOVOLOG *MILD* ALGORI... Q6 SC Last administered on 08/03/17 11:33; Admin Dose 2 UNIT; Start 07/22/17 at 06:00 Acetaminophen (Tylenol Tab) 650 mg Q4 PRN GTB ELEVATED TEMPERATURE Last administered on 08/02/17 08:56; Admin Dose 650 MG; Start 07/22/17 at 05:30 Baclofen (Lioresal) 20 mg TID GTB Last administered on 08/03/17 12:37; Admin Dose 20 MG; Start 07/22/17 at 09:00 Bisacodyl (Dulcolax Supp) 10 mg DAILY PRN [place] CONSTIPATION; Start 07/22/17 at 05:30 Docusate Sodium (Colace Liquid Cup) 100 mg BID GTB Last administered on 09:02; Admin Dose 100 MG; Start 07/22/17 at 09:00 Epoetin Andrey (Epogen (Esrd)) 15,000 units MoWeFr@17 SC Last administered on 17:25; Admin Dose 15,000 UNITS; Start 07/24/17 at 17:00 Magnesium Hydroxide (Milk Of Mag) 30 ml Q24H PRN PO CONSTIPATION; Start at 05:30 Magnesium Oxide (Mag-Ox 400) 800 mg DAILY GTB Last administered on 08/03/17 09 :03; Admin Dose 800 MG; Start 07/22/17 at 09:00 Metoclopramide HCl (Reglan) 10 mg BID GTB Last administered on 08/03/17 09:02 ; Admin Dose 10 MG; Start 07/22/17 at 09:00 Mineral Oil (Fleet Mineral Oil Enema) 133 ml DAILY PRN [place] CONSTIPATION; Start 07/22/17 at 05:30 Multivitamins Therapeutic (Theragran) 1 tab DAILY GTB Last administered on 08/03 09:02; Admin Dose 1 TAB; Start 07/22/17 at 09:00 Sucralfate (Carafate) 1 gm DAILY GTB Last administered on 08/03/17 09:02; Admin Dose 1 GM; Start 07/22/17 at 09:00 Tramadol HCl (Ultram) 100 mg DAILY GTB Last administered on 08/02/17 08:58; Admin Dose 100 MG; Start 07/22/17 at 09:00 Acetaminophen/ Hydrocodone Bitart ([place] (5/325)) 1 tab Q6H PRN GTB PAIN LEVEL 7-10; Start 07/22/17 at 05:30 Miscellaneous Information 1 ea NOTE XX ; Start 07/22/17 at 15:00 Glucose (Glutose) 15 gm Q15M PRN PO DECREASED GLUCOSE; Start 07/22/17 at 15:00 Glucose (Glutose) 22.5 gm Q15M PRN PO DECREASED GLUCOSE; Start 07/22/17 at 15: 00 Dextrose (D50w Syringe) 25 ml Q15M PRN IV DECREASED GLUCOSE; Start 07/22/17 at 15:00 Dextrose (D50w Syringe) 50 ml Q15M PRN IV DECREASED GLUCOSE; Start 07/22/17 at 15:00 Glucagon (Glucagen) 1 mg Q15M PRN IM DECREASED GLUCOSE; Start 07/22/17 at 15: 00 Glucose (Glutose) 15 gm Q15M PRN BUCCAL DECREASED GLUCOSE; Start 07/22/17 at 15:00 Insulin Human NPH (Humulin N) 6 unit Q6 SC Last administered on 08/03/17 11:32 ; Admin Dose 6 UNIT; Start 07/23/17 at 18:00 Linezolid (Zyvox) 600 mg BID PO Last administered on 08/03/17 09:03; Admin Dose 600 MG; Start 07/23/17 at 21:00 Fluconazole (Diflucan) 100 mg DAILY PO Last administered on 08/03/17 09:02; Admin Dose 100 MG; Start 07/25/17 at 09:00 Insulin Glargine (Lantus) 25 unit DAILY@20 SC Last administered on 08/02/17 21 :22; Admin Dose 25 UNIT; Start 07/24/17 at 20:00 Sodium Hypochlorite (Dakin'S (Dilute 1/40%)) 1 applic BID IRR Last administered on 08/03/17 09:00; Admin Dose 1 APPLIC; Start 07/26/17 at 21:00 Lansoprazole (Prevacid) 30 mg BID@06,18 PO Last administered on 08/03/17 05:35 ; Admin Dose 30 MG; Start 07/26/17 at 18:00 Zinc Sulfate (Zinc Sulfate) 220 mg DAILY GTB Last administered on 08/03/17 09: 02; Admin Dose 220 MG; Start 07/29/17 at 09:00 Ascorbic Acid (Vitamin C) 500 mg DAILY GTB Last administered on 08/03/17 09:03 ; Admin Dose 500 MG; Start 07/29/17 at 09:00 Collagenase (Santyl) 1 applic PRN PRN TOP PRN; Start 08/01/17 at 04:30 Collagenase 1 applic 1 applic DAILY TOP Last administered on 08/03/17 09:10; Admin Dose 1 APPLIC; Start 08/01/17 at 09:00 Colistimethate Sodium/Sodium Chloride (Coly-Mycin/NS) 100 ml @ 200 mls/hr Q24H IVPB Last administered on 08/03/17 09:01; Admin Dose 200 MLS/HR; Start at 09:00 Assessment/Plan Chief Complaint/Hosp Course No acute changes, looks comfortable Microbiology: Wound culture growing Acinetobacter, VRE, Pilar albicans, MRSA , coag negative staph species. Blood culture grew staph species, urine culture growing gram-negative rods Indwelling: Trach/PEG/PICC/Joel Abx: Colistin, Diflucan, Zyvox ALL: PCN, Levaquin, Vanco, Cephalosporins GENERAL: The patient is a nonverbal female who is awake, noncommunicative, no acute distress. SKIN: Without generalized rash. HEENT: Within normal limits. NECK: Supple. Lymph nodes nonpalpable. She has a tracheostomy in place. SKIN: She has a PICC line on the left side in the superior vena cava. CHEST: Decreased breath sounds at the bases. HEART: Without murmur or gallop. ABDOMEN: Soft, nontender. G-tube in place. + BT EXTREMITIES: Without cyanosis, clubbing or edema. Assessment: 1. Sepsis with ongoing fevers 2. UTI==> GNR 2. Ischial decub==> pending final cx 3. Acute on chronic anemia==> s/p bld tx, h/h stable 4. ARF=> nephrology follows 5. VDRF 6. Chronic encephalopathy 7. Bacteremia, possibly contaminant vs 2 to wounds Plan: Clinically unchanged, repeat bld cx's negative, repeat urine cx still + PSA, continue abx, local wound care, vent per pulmonary, surgical rec-s Dw staff Problems: FLEX DENNISON CATERING ATTENDANT Aug 03, 2017 14:13
--- NOTE | 2017-08-03 18:14 | CONS ---
Date/Time of Note Date/Time of Note DATE: 08/03/17 TIME: 18:13 Assessment/Plan Assessment/Plan Additional Assessment/Plan 1. Acute kidney injury due to ATN From sepsis + prerenal azotemia 2. Sepsis due to UTI 3. Chronic resp failure s/p Tracheostomy on ventilator 4/ Anemia of chronic disease 5/ HTN 6. UTI with Urine cx growing Gram negative rods Plan : Cr trended upto 1.29 continue Tube feeding as ordered ID following abx as per ID, pt is growing pseudomonas on Urine cx, and wound cx growing teresita, MRSA, acinetobacter IV abx colistin- renally dose all abx , wound care vent management as per pulmonary will follow up Consultation Date/Type/Reason Admit Date/Time Jul 21, 2017 at 23:24 Initial Consult Date 07/22/17 Type of Consultation: NEPHROLOGY Referring Provider: FLEX DENNISON NP 24 HR Interval Summary Free Text/Dictation Cr trended up to 1.29, Bp stable Exam/Review of Systems Vital Signs Vitals Vital Signs Date Time Temp Pulse Resp B/P Pulse Ox O2 Delivery O2 Flow Rate FiO2 08/03/17 17:00 109 16 100 30 08/03/17 15:17 100.0 101/59 Intake and Output 08/02/17 08/02/17 08/03/17 14:59 22:59 06:59 Intake Total 1060 ml 810 ml Output Total 700 ml 1000 ml Balance 360 ml -190 ml Exam Constitutional: non-verbal, + tracheostomy on ventilator Neck: non-tender, supple Respiratory: crackles/rales, diminished breath sounds Cardiovascular: nl pulses, regular rate and rhythm Gastrointestinal: non-tender, soft, +G tube Musculoskeletal: dry skin, pedal pulses 2+ Extremities: normal pulses Results Result Diagram: 08/03/17 0530 08/03/17 0530 Results 24 hrs Laboratory Tests Test 08/02/17 21:13 08/03/17 00:28 08/03/17 05:29 08/03/17 05:30 Bedside Glucose 200 215 210 White Blood Count 6.3 Red Blood Count 3.26 L Hemoglobin 8.0 L Hematocrit 28.0 L Mean Corpuscular Volume 85.9 Mean Corpuscular Hemoglobin 24.5 L Mean Corpuscular Hemoglobin Concent 28.6 L Red Cell Distribution Width 19.2 H Platelet Count 264 Mean Platelet Volume 10.5 H Neutrophils % 69.4 Lymphocytes % 18.5 Monocytes % 6.5 Eosinophils % 4.2 Basophils % 0.3 Nucleated Red Blood Cells % 0.0 Neutrophils # 4.3 Lymphocytes # 1.2 Monocytes # 0.4 Eosinophils # 0.3 Basophils # 0.0 Nucleated Red Blood Cells # 0.0 Sodium Level 144 Potassium Level 3.7 Chloride Level 108 Carbon Dioxide Level 24 Anion Gap 16 Blood Urea Nitrogen 33 H Creatinine 1.29 H Glucose Level 216 Calcium Level 9.9 Test 08/03/17 06:52 08/03/17 11:29 08/03/17 17:17 Lab Scanned Report BLOOD TRANSFUSION Bedside Glucose 199 174 Medications Medications Current Medications Miscellaneous Information (Pending [facility] Order For Wound Care) This patient stern... PRN PRN XX WOUND CARE; Start 07/22/17 at 03:30 Insulin Aspart (Novolog Insulin Pen) NOVOLOG *MILD* ALGORI... Q6 SC Last administered on 08/03/17 17:23; Admin Dose 1 UNIT; Start 07/22/17 at 06:00 Acetaminophen (Tylenol Tab) 650 mg Q4 PRN GTB ELEVATED TEMPERATURE Last administered on 08/02/17 08:56; Admin Dose 650 MG; Start 07/22/17 at 05:30 Baclofen (Lioresal) 20 mg TID GTB Last administered on 08/03/17 12:37; Admin Dose 20 MG; Start 07/22/17 at 09:00 Bisacodyl (Dulcolax Supp) 10 mg DAILY PRN [place] CONSTIPATION; Start 07/22/17 at 05:30 Docusate Sodium (Colace Liquid Cup) 100 mg BID GTB Last administered on 09:02; Admin Dose 100 MG; Start 07/22/17 at 09:00 Epoetin Andrey (Epogen (Esrd)) 15,000 units MoWeFr@17 SC Last administered on 17:25; Admin Dose 15,000 UNITS; Start 07/24/17 at 17:00 Magnesium Hydroxide (Milk Of Mag) 30 ml Q24H PRN PO CONSTIPATION; Start at 05:30 Magnesium Oxide (Mag-Ox 400) 800 mg DAILY GTB Last administered on 08/03/17 09 :03; Admin Dose 800 MG; Start 07/22/17 at 09:00 Metoclopramide HCl (Reglan) 10 mg BID GTB Last administered on 08/03/17 09:02 ; Admin Dose 10 MG; Start 07/22/17 at 09:00 Mineral Oil (Fleet Mineral Oil Enema) 133 ml DAILY PRN [place] CONSTIPATION; Start 07/22/17 at 05:30 Multivitamins Therapeutic (Theragran) 1 tab DAILY GTB Last administered on 08/03 09:02; Admin Dose 1 TAB; Start 07/22/17 at 09:00 Sucralfate (Carafate) 1 gm DAILY GTB Last administered on 08/03/17 09:02; Admin Dose 1 GM; Start 07/22/17 at 09:00 Tramadol HCl (Ultram) 100 mg DAILY GTB Last administered on 08/02/17 08:58; Admin Dose 100 MG; Start 07/22/17 at 09:00 Acetaminophen/ Hydrocodone Bitart ([place] (5/325)) 1 tab Q6H PRN GTB PAIN LEVEL 7-10; Start 07/22/17 at 05:30 Miscellaneous Information 1 ea NOTE XX ; Start 07/22/17 at 15:00 Glucose (Glutose) 15 gm Q15M PRN PO DECREASED GLUCOSE; Start 07/22/17 at 15:00 Glucose (Glutose) 22.5 gm Q15M PRN PO DECREASED GLUCOSE; Start 07/22/17 at 15: 00 Dextrose (D50w Syringe) 25 ml Q15M PRN IV DECREASED GLUCOSE; Start 07/22/17 at 15:00 Dextrose (D50w Syringe) 50 ml Q15M PRN IV DECREASED GLUCOSE; Start 07/22/17 at 15:00 Glucagon (Glucagen) 1 mg Q15M PRN IM DECREASED GLUCOSE; Start 07/22/17 at 15: 00 Glucose (Glutose) 15 gm Q15M PRN BUCCAL DECREASED GLUCOSE; Start 07/22/17 at 15:00 Insulin Human NPH (Humulin N) 6 unit Q6 SC Last administered on 08/03/17 17:23 ; Admin Dose 6 UNIT; Start 07/23/17 at 18:00 Linezolid (Zyvox) 600 mg BID PO Last administered on 08/03/17 09:03; Admin Dose 600 MG; Start 07/23/17 at 21:00 Fluconazole (Diflucan) 100 mg DAILY PO Last administered on 08/03/17 09:02; Admin Dose 100 MG; Start 07/25/17 at 09:00 Insulin Glargine (Lantus) 25 unit DAILY@20 SC Last administered on 08/02/17 21 :22; Admin Dose 25 UNIT; Start 07/24/17 at 20:00 Sodium Hypochlorite (Dakin'S (Dilute 1/40%)) 1 applic BID IRR Last administered on 08/03/17 09:00; Admin Dose 1 APPLIC; Start 07/26/17 at 21:00 Lansoprazole (Prevacid) 30 mg BID@06,18 PO Last administered on 08/03/17 17:29 ; Admin Dose 30 MG; Start 07/26/17 at 18:00 Zinc Sulfate (Zinc Sulfate) 220 mg DAILY GTB Last administered on 08/03/17 09: 02; Admin Dose 220 MG; Start 07/29/17 at 09:00 Ascorbic Acid (Vitamin C) 500 mg DAILY GTB Last administered on 08/03/17 09:03 ; Admin Dose 500 MG; Start 07/29/17 at 09:00 Collagenase (Santyl) 1 applic PRN PRN TOP PRN; Start 08/01/17 at 04:30 Collagenase 1 applic 1 applic DAILY TOP Last administered on 08/03/17 09:10; Admin Dose 1 APPLIC; Start 08/01/17 at 09:00 Colistimethate Sodium/Sodium Chloride (Coly-Mycin/NS) 100 ml @ 200 mls/hr Q24H IVPB Last administered on 08/03/17 09:01; Admin Dose 200 MLS/HR; Start at 09:00 LIZETTE ALEX MD Aug 03, 2017 18:14
[2017-08-03] MEDS: INSULIN GLARGINE [LANtus] 3 ML PEN SC SCH (20:28)
[2017-08-04] VITALS (23 sets, daily range): BP systolic 90–107; BP diastolic 50–70; PULSE 98–126; RESP 12–22
[2017-08-04] MEDS: LANSOPRAZOLE 30 MG CAP PO SCH ×2 (05:28→17:58)
[2017-08-04] MEDS: NPH, HUMAN INSULIN ISOPHANE 3ML VIAL SC SCH ×2 (05:28→12:09)
[2017-08-04] MEDS: INSULIN ASPART [NOVOLOG] 3 ML PEN SC SCH ×4 (05:31→20:12)
[2017-08-04] MEDS: COLISTIMETHATE 135 MG in SOD CHLORIDE 0.9% 100 ML IVPB SCH (08:32)
[2017-08-04] MEDS: SUCRALFATE 1 GM TAB GTB SCH (08:33)
[2017-08-04] MEDS: MAGNESIUM OXIDE 400 MG TAB GTB SCH (08:33)
[2017-08-04] MEDS: ZYVOX 600 MG TAB PO SCH ×2 (08:33→20:10)
[2017-08-04] MEDS: METOCLOPRAMIDE 10 MG TAB GTB SCH ×2 (08:36→20:10)
[2017-08-04] MEDS: ZINC SULFATE 220 MG CAP GTB SCH (08:36)
[2017-08-04] MEDS: traMADol 50 MG TAB GTB SCH (08:36)
[2017-08-04] MEDS: BACLOFEN 10 MG TAB GTB SCH ×3 (08:37→20:10)
[2017-08-04] MEDS: SODIUM HYPOCHLORITE 1/40% 1L IRRIG IRR SCH ×2 (08:37→20:16)
[2017-08-04] MEDS: DOCUSATE SODIUM 10 MG/ML (10ML CUP) GTB SCH ×2 (08:37→20:09)
[2017-08-04] MEDS: MULTIVITAMINS THERAPEUTIC TAB GTB SCH (08:37)
[2017-08-04] MEDS: ASCORBIC ACID 500 MG TAB GTB SCH (08:37)
[2017-08-04] MEDS: FLUCONAZOLE 100 MG TAB PO SCH (08:37)
[2017-08-04] MEDS: COLLAGENASE 30 GM TUBE TOP SCH (08:38)
--- NOTE | 2017-08-04 11:46 | CONS ---
Date/Time of Note Date/Time of Note DATE: 08/04/17 TIME: 11:44 Assessment/Plan Assessment/Plan Additional Assessment/Plan 1. Acute kidney injury due to ATN From sepsis + prerenal azotemia 2. Sepsis due to UTI 3. Chronic resp failure s/p Tracheostomy on ventilator 4/ Anemia of chronic disease 5/ HTN 6. UTI with Urine cx growing Gram negative rods Plan : Cr trended upto 1.29 yesterday, no chemistry today to review yet, AM labs ordered continue Tube feeding as ordered ID following abx as per ID, pt is growing pseudomonas on Urine cx, and wound cx growing teresita, MRSA, acinetobacter IV abx colistin- renally dose all abx , wound care vent management as per pulmonary will follow up Consultation Date/Type/Reason Admit Date/Time Jul 21, 2017 at 23:24 Initial Consult Date 07/22/17 Type of Consultation: NEPHROLOGY Referring Provider: FLEX DENNISON NP 24 HR Interval Summary Free Text/Dictation No labs today, Cr better, pt has loose BM today Exam/Review of Systems Vital Signs Vitals Vital Signs Date Time Temp Pulse Resp B/P Pulse Ox O2 Delivery O2 Flow Rate FiO2 08/04/17 11:30 99.8 78 16 102/61 98 08/04/17 11:17 30 Intake and Output 08/03/17 08/03/17 08/04/17 15:00 23:00 07:00 Intake Total 400 ml 950 ml Output Total 950 ml Balance 400 ml 0 ml Exam Constitutional: non-verbal, + tracheostomy on ventilator Neck: non-tender, supple Respiratory: crackles/rales, diminished breath sounds Cardiovascular: nl pulses, regular rate and rhythm Gastrointestinal: non-tender, soft, +G tube Musculoskeletal: dry skin, pedal pulses 2+ Extremities: normal pulses Results Result Diagram: 08/03/17 0530 08/03/17 0530 Results 24 hrs Laboratory Tests Test 08/03/17 17:17 08/03/17 20:22 08/03/17 23:21 08/04/17 05:20 Bedside Glucose 174 181 246 H 207 Medications Medications Current Medications M[facility] This patient stern... PRN PRN XX WOUND CARE; Start 07/22/17 at 03:30 Insulin Aspart (Novolog Insulin Pen) NOVOLOG *MILD* ALGORI... Q6 SC Last administered on 08/04/17 05:31; Admin Dose 2 UNIT; Start 07/22/17 at 06:00 Acetaminophen (Tylenol Tab) 650 mg Q4 PRN GTB ELEVATED TEMPERATURE Last administered on 08/02/17 08:56; Admin Dose 650 MG; Start 07/22/17 at 05:30 Baclofen (Lioresal) 20 mg TID GTB Last administered on 08/04/17 08:37; Admin Dose 20 MG; Start 07/22/17 at 09:00 Bisacodyl (Dulcolax Supp) 10 mg DAILY PRN [place] CONSTIPATION; Start 07/22/17 at 05:30 Docusate Sodium (Colace Liquid Cup) 100 mg BID GTB Last administered on 08:37; Admin Dose 100 MG; Start 07/22/17 at 09:00 Epoetin Andrey (Epogen (Esrd)) 15,000 units MoWeFr@17 SC Last administered on 17:25; Admin Dose 15,000 UNITS; Start 07/24/17 at 17:00 Magnesium Hydroxide (Milk Of Mag) 30 ml Q24H PRN [place] CONSTIPATION; Start at 05:30 Magnesium Oxide (Mag-Ox 400) 800 mg DAILY GTB Last administered on 08/04/17 08 :33; Admin Dose 800 MG; Start 07/22/17 at 09:00 Metoclopramide HCl (Reglan) 10 mg BID GTB Last administered on 08/04/17 08:36 ; Admin Dose 10 MG; Start 07/22/17 at 09:00 Mineral Oil (Fleet Mineral Oil Enema) 133 ml DAILY PRN [place] CONSTIPATION; Start 07/22/17 at 05:30 Multivitamins Therapeutic (Theragran) 1 tab DAILY GTB Last administered on 08/04 08:37; Admin Dose 1 TAB; Start 07/22/17 at 09:00 Sucralfate (Carafate) 1 gm DAILY GTB Last administered on 08/04/17 08:33; Admin Dose 1 GM; Start 07/22/17 at 09:00 Tramadol HCl (Ultram) 100 mg DAILY GTB Last administered on 08/04/17 08:36; Admin Dose 100 MG; Start 07/22/17 at 09:00 Acetaminophen/ Hydrocodone Bitart ([place] (5/325)) 1 tab Q6H PRN GTB PAIN LEVEL 7-10; Start 07/22/17 at 05:30 Miscellaneous Information 1 ea NOTE XX ; Start 07/22/17 at 15:00 Glucose (Glutose) 15 gm Q15M PRN PO DECREASED GLUCOSE; Start 07/22/17 at 15:00 Glucose (Glutose) 22.5 gm Q15M PRN PO DECREASED GLUCOSE; Start 07/22/17 at 15: 00 Dextrose (D50w Syringe) 25 ml Q15M PRN IV DECREASED GLUCOSE; Start 07/22/17 at 15:00 Dextrose (D50w Syringe) 50 ml Q15M PRN IV DECREASED GLUCOSE; Start 07/22/17 at 15:00 Glucagon (Glucagen) 1 mg Q15M PRN IM DECREASED GLUCOSE; Start 07/22/17 at 15: 00 Glucose (Glutose) 15 gm Q15M PRN BUCCAL DECREASED GLUCOSE; Start 07/22/17 at 15:00 Insulin Human NPH (Humulin N) 6 unit Q6 SC Last administered on 08/04/17 05:28 ; Admin Dose 6 UNIT; Start 07/23/17 at 18:00 Linezolid (Zyvox) 600 mg BID PO Last administered on 08/04/17 08:33; Admin Dose 600 MG; Start 07/23/17 at 21:00 Fluconazole (Diflucan) 100 mg DAILY PO Last administered on 08/04/17 08:37; Admin Dose 100 MG; Start 07/25/17 at 09:00 Insulin Glargine (Lantus) 25 unit DAILY@20 SC Last administered on 08/03/17 20 :28; Admin Dose 25 UNIT; Start 07/24/17 at 20:00 Sodium Hypochlorite (Dakin'S (Dilute 1/40%)) 1 applic BID IRR Last administered on 08/04/17 08:37; Admin Dose 1 APPLIC; Start 07/26/17 at 21:00 Lansoprazole (Prevacid) 30 mg BID@06,18 PO Last administered on 08/04/17 05:28 ; Admin Dose 30 MG; Start 07/26/17 at 18:00 Zinc Sulfate (Zinc Sulfate) 220 mg DAILY GTB Last administered on 08/04/17 08: 36; Admin Dose 220 MG; Start 07/29/17 at 09:00 Ascorbic Acid (Vitamin C) 500 mg DAILY GTB Last administered on 08/04/17 08:37 ; Admin Dose 500 MG; Start 07/29/17 at 09:00 Collagenase (Santyl) 1 applic PRN PRN TOP PRN; Start 08/01/17 at 04:30 Collagenase 1 applic 1 applic DAILY TOP Last administered on 08/04/17 08:38; Admin Dose 1 APPLIC; Start 08/01/17 at 09:00 Colistimethate Sodium/Sodium Chloride (Coly-Mycin/NS) 100 ml @ 200 mls/hr Q24H IVPB Last administered on 08/04/17 08:32; Admin Dose 200 MLS/HR; Start at 09:00 LIZETTE ALEX MD Aug 04, 2017 11:46
--- NOTE | 2017-08-04 13:58 | CONS ---
Date/Time of Note Date/Time of Note DATE: 08/04/17 TIME: 13:57 Consult Date/Type/Reason Admit Date/Time Jul 21, 2017 at 23:24 Initial Consult Date 07/22/17 Type of Consultation: ID Ordering Provider: FLEX DENNISON NP Objective Vital Signs Date Time Temp Pulse Resp B/P Pulse Ox O2 Delivery O2 Flow Rate FiO2 08/04/17 13:36 102 13 100 30 08/04/17 11:30 99.8 102/61 Intake and Output 08/03/17 08/03/17 08/04/17 15:00 23:00 07:00 Intake Total 400 ml 950 ml Output Total 950 ml Balance 400 ml 0 ml Results/Medications Result Diagram: 08/03/1730 08/03/17 0530 Results 24 hrs Laboratory Tests Test 08/03/17 17:17 08/03/17 20:22 08/03/17 23:21 08/04/17 05:20 Bedside Glucose 174 181 246 H 207 Test 08/04/17 11:57 Bedside Glucose 247 H Medications Current Medications Miscellaneous Information [facility] This patient stern... PRN PRN XX WOUND CARE; Start 07/22/17 at 03:30 Insulin Aspart (Novolog Insulin Pen) NOVOLOG *MILD* ALGORI... Q6 SC Last administered on 08/04/17 12:09; Admin Dose 3 UNIT; Start 07/22/17 at 06:00 Acetaminophen (Tylenol Tab) 650 mg Q4 PRN GTB ELEVATED TEMPERATURE Last administered on 08/02/17 08:56; Admin Dose 650 MG; Start 07/22/17 at 05:30 Baclofen (Lioresal) 20 mg TID GTB Last administered on 08/04/17 13:25; Admin Dose 20 MG; Start 07/22/17 at 09:00 Bisacodyl (Dulcolax Supp) 10 mg DAILY PRN [place] CONSTIPATION; Start 07/22/17 at 05:30 Docusate Sodium (Colace Liquid Cup) 100 mg BID GTB Last administered on 08:37; Admin Dose 100 MG; Start 07/22/17 at 09:00 Epoetin Andrey (Epogen (Esrd)) 15,000 units MoWeFr@17 SC Last administered on 17:25; Admin Dose 15,000 UNITS; Start 07/24/17 at 17:00 Magnesium Hydroxide (Milk Of Mag) 30 ml Q24H PRN PO CONSTIPATION; Start at 05:30 Magnesium Oxide (Mag-Ox 400) 800 mg DAILY GTB Last administered on 08/04/17 08 :33; Admin Dose 800 MG; Start 07/22/17 at 09:00 Metoclopramide HCl (Reglan) 10 mg BID GTB Last administered on 08/04/17 08:36 ; Admin Dose 10 MG; Start 07/22/17 at 09:00 Mineral Oil (Fleet Mineral Oil Enema) 133 ml DAILY PRN [place] CONSTIPATION; Start 07/22/17 at 05:30 Multivitamins Therapeutic (Theragran) 1 tab DAILY GTB Last administered on 08/04 08:37; Admin Dose 1 TAB; Start 07/22/17 at 09:00 Sucralfate (Carafate) 1 gm DAILY GTB Last administered on 08/04/17 08:33; Admin Dose 1 GM; Start 07/22/17 at 09:00 Tramadol HCl (Ultram) 100 mg DAILY GTB Last administered on 08/04/17 08:36; Admin Dose 100 MG; Start 07/22/17 at 09:00 Acetaminophen/ Hydrocodone Bitart ([place] (5/325)) 1 tab Q6H PRN GTB PAIN LEVEL 7-10; Start 07/22/17 at 05:30 Miscellaneous Information 1 ea NOTE XX ; Start 07/22/17 at 15:00 Glucose (Glutose) 15 gm Q15M PRN PO DECREASED GLUCOSE; Start 07/22/17 at 15:00 Glucose (Glutose) 22.5 gm Q15M PRN PO DECREASED GLUCOSE; Start 07/22/17 at 15: 00 Dextrose (D50w Syringe) 25 ml Q15M PRN IV DECREASED GLUCOSE; Start 07/22/17 at 15:00 Dextrose (D50w Syringe) 50 ml Q15M PRN IV DECREASED GLUCOSE; Start 07/22/17 at 15:00 Glucagon (Glucagen) 1 mg Q15M PRN IM DECREASED GLUCOSE; Start 07/22/17 at 15: 00 Glucose (Glutose) 15 gm Q15M PRN BUCCAL DECREASED GLUCOSE; Start 07/22/17 at 15:00 Insulin Human NPH (Humulin N) 6 unit Q6 SC Last administered on 08/04/17 12:09 ; Admin Dose 6 UNIT; Start 07/23/17 at 18:00 Linezolid (Zyvox) 600 mg BID PO Last administered on 08/04/17 08:33; Admin Dose 600 MG; Start 07/23/17 at 21:00 Fluconazole (Diflucan) 100 mg DAILY PO Last administered on 08/04/17 08:37; Admin Dose 100 MG; Start 07/25/17 at 09:00 Insulin Glargine (Lantus) 25 unit DAILY@20 SC Last administered on 08/03/17 20 :28; Admin Dose 25 UNIT; Start 07/24/17 at 20:00 Sodium Hypochlorite (Dakin'S (Dilute 1/40%)) 1 applic BID IRR Last administered on 08/04/17 08:37; Admin Dose 1 APPLIC; Start 07/26/17 at 21:00 Lansoprazole (Prevacid) 30 mg BID@06,18 PO Last administered on 08/04/17 05:28 ; Admin Dose 30 MG; Start 07/26/17 at 18:00 Zinc Sulfate (Zinc Sulfate) 220 mg DAILY GTB Last administered on 08/04/17 08: 36; Admin Dose 220 MG; Start 07/29/17 at 09:00 Ascorbic Acid (Vitamin C) 500 mg DAILY GTB Last administered on 08/04/17 08:37 ; Admin Dose 500 MG; Start 07/29/17 at 09:00 Collagenase (Santyl) 1 applic PRN PRN TOP PRN; Start 08/01/17 at 04:30 Collagenase 1 applic 1 applic DAILY TOP Last administered on 08/04/17 08:38; Admin Dose 1 APPLIC; Start 08/01/17 at 09:00 Colistimethate Sodium/Sodium Chloride (Coly-Mycin/NS) 100 ml @ 200 mls/hr Q24H IVPB Last administered on 08/04/17 08:32; Admin Dose 200 MLS/HR; Start at 09:00 Assessment/Plan Chief Complaint/Hosp Course No acute changes, on/off fevers and tachycardia, noncommunicative, looks comfortable Microbiology: Wound culture growing Acinetobacter, VRE, Pilar albicans, MRSA , coag negative staph species. Blood culture grew staph species, urine culture growing gram-negative rods Indwelling: Trach/PEG/PICC/Joel Abx: Colistin, Diflucan, Zyvox ALL: PCN, Levaquin, Vanco, Cephalosporins GENERAL: The patient is a nonverbal female who is awake, noncommunicative, no acute distress. SKIN: Without generalized rash. HEENT: Within normal limits. NECK: Supple. Lymph nodes nonpalpable. She has a tracheostomy in place. SKIN: She has a PICC line on the left side in the superior vena cava. CHEST: Decreased breath sounds at the bases. HEART: Without murmur or gallop. ABDOMEN: Soft, nontender. G-tube in place. + BT EXTREMITIES: Without cyanosis, clubbing or edema. Assessment: 1. Sepsis with ongoing fevers and tachycardia 2. Persistent UTI==> GNR 2. Multiple chronic wounds 3. Acute on chronic anemia 4. ARF=> nephrology follows 5. VDRF 6. Chronic encephalopathy 7. Bacteremia, possibly contaminant vs 2 to wounds Plan: Clinically unchanged, repeat bld cx's negative, repeat urine cx still + PSA, continue abx, local wound care, vent per pulmonary, surgical rec-s Dw staff Problems: FLEX DENNISON NP Aug 04, 2017 13:58
--- NOTE | 2017-08-04 15:16 | PN ---
Date/Time of Note Date/Time of Note DATE: 08/04/17 TIME: 15:09 Assessment/Plan VTE Prophylaxis VTE Prophylaxis Intervention: SCD's Lines/Catheters IV Catheter Type (from Nrs): PICC Line Central line still needed: Yes Urinary Cath still in place: Yes Reason Cath still needed: urinary retention Assessment/Plan Chief Complaint/Hosp Course Patient continues to have low-grade fever, tachycardia, borderline BP. Small amount bleeding from sacral wound for nursing, continue to monitor hemoglobin and hematocrit. Blood sugar is in the above 200, will increase Lantus to 30, NovoLog sliding scale with Accu-Chek every 4 hours. Assessment/Plan -Sepsis secondary to UTI, possible pneumonia, infected wounds. Continue antibiotics per ID . Dr. Zavaleta is following in infection disease consultation. -Anemia of chronic disease, continue Epogen. Dr. Ruiz is following in gastroenterology consultation. -Diabetes mellitus, continue Lantus and NovoLog per sliding scale with Accu- Chek every 4 hours. -Advanced multiple sclerosis -Ventilator dependent respiratory failure. Dr. Blackwell is following in pulmonology consultation. -Dysphagia with PEG -Multiple decubitus ulcer, continue wound care per wound care consult. Dr. High is following in general surgery consultation. -Acute on chronic encephalopathy. Further recommendations based on clinical course. Plan of care discussed with Dr. Taylor. Problems: Exam/Review of Systems Vital Signs Vitals Vital Signs Date Time Temp Pulse Resp B/P Pulse Ox O2 Delivery O2 Flow Rate FiO2 08/04/17 15:01 99.6 108 22 98/57 97 08/04/17 13:36 30 Intake and Output 08/03/17 08/03/17 08/04/17 15:00 23:00 07:00 Intake Total 400 ml 950 ml Output Total 950 ml Balance 400 ml 0 ml Exam Constitutional: non-verbal Head: normocephalic Neck: other (Tracheostomy) Respiratory: diminished breath sounds Cardiovascular: nl pulses Gastrointestinal: non-tender, other (G-tube), soft Musculoskeletal: muscle weakness Neurological: confused Skin: other (Multiple wounds) Results Result Diagram: 08/03/17 0530 08/03/17 0530 Results 24 hrs Laboratory Tests Test 08/03/17 17:17 08/03/17 20:22 08/03/17 23:21 08/04/17 05:20 Bedside Glucose 174 181 246 H 207 Test 08/04/17 11:57 Bedside Glucose 247 H Medications Medications Current Medications Miscellaneous Information ([facility] This patient stern... PRN PRN XX WOUND CARE; Start 07/22/17 at 03:30 Insulin Aspart (Novolog Insulin Pen) NOVOLOG *MILD* ALGORI... Q6 SC Last administered on 08/04/17 12:09; Admin Dose 3 UNIT; Start 07/22/17 at 06:00 Acetaminophen (Tylenol Tab) 650 mg Q4 PRN GTB ELEVATED TEMPERATURE Last administered on 08/02/17 08:56; Admin Dose 650 MG; Start 07/22/17 at 05:30 Baclofen (Lioresal) 20 mg TID GTB Last administered on 08/04/17 13:25; Admin Dose 20 MG; Start 07/22/17 at 09:00 Bisacodyl (Dulcolax Supp) 10 mg DAILY PRN [place] CONSTIPATION; Start 07/22/17 at 05:30 Docusate Sodium (Colace Liquid Cup) 100 mg BID GTB Last administered on 08:37; Admin Dose 100 MG; Start 07/22/17 at 09:00 Epoetin Andrey (Epogen (Esrd)) 15,000 units MoWeFr@17 SC Last administered on 17:25; Admin Dose 15,000 UNITS; Start 07/24/17 at 17:00 Magnesium Hydroxide (Milk Of Mag) 30 ml Q24H PRN PO CONSTIPATION; Start at 05:30 Magnesium Oxide (Mag-Ox 400) 800 mg DAILY GTB Last administered on 08/04/17 08 :33; Admin Dose 800 MG; Start 07/22/17 at 09:00 Metoclopramide HCl (Reglan) 10 mg BID GTB Last administered on 08/04/17 08:36 ; Admin Dose 10 MG; Start 07/22/17 at 09:00 Mineral Oil (Fleet Mineral Oil Enema) 133 ml DAILY PRN [place] CONSTIPATION; Start 07/22/17 at 05:30 Multivitamins Therapeutic (Theragran) 1 tab DAILY GTB Last administered on 08/04 08:37; Admin Dose 1 TAB; Start 07/22/17 at 09:00 Sucralfate (Carafate) 1 gm DAILY GTB Last administered on 08/04/17 08:33; Admin Dose 1 GM; Start 07/22/17 at 09:00 Tramadol HCl (Ultram) 100 mg DAILY GTB Last administered on 08/04/17 08:36; Admin Dose 100 MG; Start 07/22/17 at 09:00 Acetaminophen/ Hydrocodone Bitart ([place] (5/325)) 1 tab Q6H PRN GTB PAIN LEVEL 7-10; Start 07/22/17 at 05:30 Miscellaneous Information 1 ea NOTE XX ; Start 07/22/17 at 15:00 Glucose (Glutose) 15 gm Q15M PRN PO DECREASED GLUCOSE; Start 07/22/17 at 15:00 Glucose (Glutose) 22.5 gm Q15M PRN PO DECREASED GLUCOSE; Start 07/22/17 at 15: 00 Dextrose (D50w Syringe) 25 ml Q15M PRN IV DECREASED GLUCOSE; Start 07/22/17 at 15:00 Dextrose (D50w Syringe) 50 ml Q15M PRN IV DECREASED GLUCOSE; Start 07/22/17 at 15:00 Glucagon (Glucagen) 1 mg Q15M PRN IM DECREASED GLUCOSE; Start 07/22/17 at 15: 00 Glucose (Glutose) 15 gm Q15M PRN BUCCAL DECREASED GLUCOSE; Start 07/22/17 at 15:00 Insulin Human NPH (Humulin N) 6 unit Q6 SC Last administered on 08/04/17 12:09 ; Admin Dose 6 UNIT; Start 07/23/17 at 18:00 Linezolid (Zyvox) 600 mg BID PO Last administered on 08/04/17 08:33; Admin Dose 600 MG; Start 07/23/17 at 21:00 Fluconazole (Diflucan) 100 mg DAILY PO Last administered on 08/04/17 08:37; Admin Dose 100 MG; Start 07/25/17 at 09:00 Insulin Glargine (Lantus) 25 unit DAILY@20 SC Last administered on 08/03/17 20 :28; Admin Dose 25 UNIT; Start 07/24/17 at 20:00 Sodium Hypochlorite (Dakin'S (Dilute 1/40%)) 1 applic BID IRR Last administered on 08/04/17 08:37; Admin Dose 1 APPLIC; Start 07/26/17 at 21:00 Lansoprazole (Prevacid) 30 mg BID@06,18 PO Last administered on 08/04/17 05:28 ; Admin Dose 30 MG; Start 07/26/17 at 18:00 Zinc Sulfate (Zinc Sulfate) 220 mg DAILY GTB Last administered on 08/04/17 08: 36; Admin Dose 220 MG; Start 07/29/17 at 09:00 Ascorbic Acid (Vitamin C) 500 mg DAILY GTB Last administered on 08/04/17 08:37 ; Admin Dose 500 MG; Start 07/29/17 at 09:00 Collagenase (Santyl) 1 applic PRN PRN TOP PRN; Start 08/01/17 at 04:30 Collagenase 1 applic 1 applic DAILY TOP Last administered on 08/04/17 08:38; Admin Dose 1 APPLIC; Start 08/01/17 at 09:00 Colistimethate Sodium/Sodium Chloride (Coly-Mycin/NS) 100 ml @ 200 mls/hr Q24H IVPB Last administered on 08/04/17 08:32; Admin Dose 200 MLS/HR; Start at 09:00 ALIZA ANDRADE Aug 04, 2017 15:16
--- NOTE | 2017-08-04 16:32 | CONS ---
Date/Time of Note Date/Time of Note DATE: 08/04/17 TIME: 16:31 Consult Date/Type/Reason Admit Date/Time Jul 21, 2017 at 23:24 Initial Consult Date 07/22/17 Type of Consultation: Pulmonary Ordering Provider: FLEX DENNISON [employer] Subjective No significant changes. Objective Vital Signs Date Time Temp Pulse Resp B/P Pulse Ox O2 Delivery O2 Flow Rate FiO2 08/04/17 15:15 110 12 99 30 08/04/17 15:01 99.6 98/57 Intake and Output 08/03/17 08/03/17 08/04/17 15:00 23:00 07:00 Intake Total 400 ml 950 ml Output Total 950 ml Balance 400 ml 0 ml Exam PHYSICAL EXAMINATION GENERAL: Chronically ill-appearing lady on mechanical ventilation via tracheostomy VITAL SIGNS: see below. HEENT: Pupils equal, round, and reactive to light. Tracheostomy site clean and intact. CARDIAC: S1, S2, 1/6 systolic ejection murmur CHEST: Diminished air entry bilaterally. ABDOMEN: Mildly distended. Bowel sounds present no guarding or rebound EXTREMITIES: No cyanosis, clubbing edema +1 NEUROLOGIC: Generalized weakness Results/Medications Result Diagram: 08/03/17 0530 08/03/17 0530 Results 24 hrs Laboratory Tests Test 08/03/17 17:17 08/03/17 20:22 08/03/17 23:21 08/04/17 05:20 Bedside Glucose 174 181 246 H 207 Test 08/04/17 11:57 Bedside Glucose 247 H Medications Current Medications Miscellaneous Information (Pending [facility] Order For Wound Care) This patient stern... PRN PRN XX WOUND CARE; Start 07/22/17 at 03:30 Acetaminophen (Tylenol Tab) 650 mg Q4 PRN GTB ELEVATED TEMPERATURE Last administered on 08/02/17 08:56; Admin Dose 650 MG; Start 07/22/17 at 05:30 Baclofen (Lioresal) 20 mg TID GTB Last administered on 08/04/17 13:25; Admin Dose 20 MG; Start 07/22/17 at 09:00 Bisacodyl (Dulcolax Supp) 10 mg DAILY PRN [place] CONSTIPATION; Start 07/22/17 at 05:30 Docusate Sodium (Colace Liquid Cup) 100 mg BID GTB Last administered on 08:37; Admin Dose 100 MG; Start 07/22/17 at 09:00 Epoetin Andrey (Epogen (Esrd)) 15,000 units MoWeFr@17 SC Last administered on 17:25; Admin Dose 15,000 UNITS; Start 07/24/17 at 17:00 Magnesium Hydroxide (Milk Of Mag) 30 ml Q24H PRN [place] CONSTIPATION; Start at 05:30 Magnesium Oxide (Mag-Ox 400) 800 mg DAILY GTB Last administered on 08/04/17 08 :33; Admin Dose 800 MG; Start 07/22/17 at 09:00 Metoclopramide HCl (Reglan) 10 mg BID GTB Last administered on 08/04/17 08:36 ; Admin Dose 10 MG; Start 07/22/17 at 09:00 Mineral Oil (Fleet Mineral Oil Enema) 133 ml DAILY PRN [place] CONSTIPATION; Start 07/22/17 at 05:30 Multivitamins Therapeutic (Theragran) 1 tab DAILY GTB Last administered on 08/04 08:37; Admin Dose 1 TAB; Start 07/22/17 at 09:00 Sucralfate (Carafate) 1 gm DAILY GTB Last administered on 08/04/17 08:33; Admin Dose 1 GM; Start 07/22/17 at 09:00 Tramadol HCl (Ultram) 100 mg DAILY GTB Last administered on 08/04/17 08:36; Admin Dose 100 MG; Start 07/22/17 at 09:00 Acetaminophen/ Hydrocodone Bitart ([place] (5/325)) 1 tab Q6H PRN GTB PAIN LEVEL 7-10; Start 07/22/17 at 05:30 Miscellaneous Information 1 ea NOTE XX ; Start 07/22/17 at 15:00 Glucose (Glutose) 15 gm Q15M PRN PO DECREASED GLUCOSE; Start 07/22/17 at 15:00 Glucose (Glutose) 22.5 gm Q15M PRN PO DECREASED GLUCOSE; Start 07/22/17 at 15: 00 Dextrose (D50w Syringe) 25 ml Q15M PRN IV DECREASED GLUCOSE; Start 07/22/17 at 15:00 Dextrose (D50w Syringe) 50 ml Q15M PRN IV DECREASED GLUCOSE; Start 07/22/17 at 15:00 Glucagon (Glucagen) 1 mg Q15M PRN IM DECREASED GLUCOSE; Start 07/22/17 at 15: 00 Glucose (Glutose) 15 gm Q15M PRN BUCCAL DECREASED GLUCOSE; Start 07/22/17 at 15:00 Linezolid (Zyvox) 600 mg BID PO Last administered on 08/04/17 08:33; Admin Dose 600 MG; Start 07/23/17 at 21:00 Fluconazole (Diflucan) 100 mg DAILY PO Last administered on 08/04/17 08:37; Admin Dose 100 MG; Start 07/25/17 at 09:00 Sodium Hypochlorite (Dakin'S (Dilute 1/40%)) 1 applic BID IRR Last administered on 08/04/17 08:37; Admin Dose 1 APPLIC; Start 07/26/17 at 21:00 Lansoprazole (Prevacid) 30 mg BID@06,18 PO Last administered on 08/04/17 05:28 ; Admin Dose 30 MG; Start 07/26/17 at 18:00 Zinc Sulfate (Zinc Sulfate) 220 mg DAILY GTB Last administered on 08/04/17 08: 36; Admin Dose 220 MG; Start 07/29/17 at 09:00 Ascorbic Acid (Vitamin C) 500 mg DAILY GTB Last administered on 08/04/17 08:37 ; Admin Dose 500 MG; Start 07/29/17 at 09:00 Collagenase (Santyl) 1 applic PRN PRN TOP PRN; Start 08/01/17 at 04:30 Collagenase 1 applic 1 applic DAILY TOP Last administered on 08/04/17 08:38; Admin Dose 1 APPLIC; Start 08/01/17 at 09:00 Colistimethate Sodium/Sodium Chloride (Coly-Mycin/NS) 100 ml @ 200 mls/hr Q24H IVPB Last administered on 08/04/17 08:32; Admin Dose 200 MLS/HR; Start at 09:00 Insulin Glargine (Lantus) 30 unit DAILY@20 SC ; Start 08/04/17 at 20:00 Insulin Aspart (Novolog Insulin Pen) NOVOLOG *MILD* ALGORI... Q4 SC ; Start 08/04/17 at 17:00 Assessment/Plan Chief Complaint/Hosp Course Additional Assessment/Plan IMP: 1. Anemia--workup in place. 2. Urosepsis 3. VDRF 4. Encephalopathy RECS: 1. Vent support 2. BD's/CPT 3. Abx per ID 4. GIB w/u per GI DC planning okay from pulmonary standpoint Problems: ULYSSES FORRESTER MD, FCCP Aug 04, 2017 16:32
[2017-08-04] MEDS: EPOETIN 10000 UNITS/1 ML INJ (ESRD) SC SCH (16:40)
[2017-08-04] MEDS ORDERED: SILVER NITRATE SWAB TOP ONE (17:30)
--- NOTE | 2017-08-04 17:41 | OPR ---
Date/Time of Note Date/Time of Note DATE: 08/04/17 TIME: 17:41 Operative Report Free Text/Dictation Pre-Operative Diagnosis 1. * stage * pressure ulcer with necrotic tissue, cm Post-Operative Diagnosis 1. *stage * pressure ulcer with necrotic tissue including *, *cm Operative Report Details Procedures Performed 1. Excisional debridement of * skin, subcutaneous, *. *cm Complications None Estimated Blood Loss *ml Specimen None Indication Per notes. Disposition/Tolerance Tolerated procedure well. Description of procedure r/b/a discussed and agreed upon with patient. Patient was positioned appropriately. All pressure points padded on his bed. Area was prepped in sterile manner. Time out done. Using scalpel and curette, the necrotic tissue of skin, subq, * of * was debrided to healthier edges. Wound was irrigated and hemostasis obtained. Wound was packed. Abd pad applied to cover. Surgeon see signature line Transfusion none Grafts/Implants none Complications none SANFORD RODRIGUEZ NP Aug 04, 2017 17:41
--- NOTE | 2017-08-04 17:41 | PN ---
Date/Time of Note Date/Time of Note DATE: 08/04/17 TIME: 17:37 Assessment/Plan Lines/Catheters IV Catheter Type (from Nrs): PICC Line Joel in Place (from Nrs): Yes Assessment/Plan Chief Complaint/Hosp Course 1. Multiple wound: 2/2 immobility; cultures noted: s/p debridement today -debridement when medically optimized (still w tachycardia and fevers) -local care-bid -frequent turning and off-loading -low air loss mattress -vitamin c -short term zinc -optimize nutrition 2. Hypochromic anemia: no acute bleed noted -monitor -transfuse as needed 3. UTI: cultures noted -abx per sensitivity -frequent bladder emptying/cath care 4. VDRF -pulm toilet -respiratory treatments 5. Anemia: no no bleed noted; on epogen -monitor -transfuse as needed Thank you. Patient seen and examined in collaboration with Dr. Hi High. Problems: Subjective 24 Hr Interval Summary S/p debridement. Continues to be tachycardic. Min temp. Appears comfortable on vent. Nonverbal indicators of pain not present. Exam/Review of Systems Vital Signs Vitals Vital Signs Date Time Temp Pulse Resp B/P Pulse Ox O2 Delivery O2 Flow Rate FiO2 08/04/17 16:11 105 08/04/17 15:15 12 99 30 08/04/17 15:01 99.6 98/57 Intake and Output 08/03/17 08/03/17 08/04/17 15:00 23:00 07:00 Intake Total 400 ml 950 ml Output Total 950 ml Balance 400 ml 0 ml Exam Free Text/Dictation Constitutional: alert, other (nonverbal), diaphoretic Head: atraumatic, normocephalic Eyes: nl lids, nl sclera, No icteric ENMT: mucosa pink and moist, nl nasal mucosa & septum Neck: non-tender, other (trach), supple Respiratory: other (vent), No labored breathing Cardiovascular: regular rate and rhythm Gastrointestinal: non-tender, other (peg; umbilical hernia, rotund), soft Extremities: normal pulses, other (stiffness) Neurological: other (withdraws from painful stimuli) Skin: other (multiple wounds: mod drainage, improved odor) Results Result Diagram: 08/03/1730 08/03/17529 SANFORD RODRIGUEZ NP Aug 04, 2017 17:41
[2017-08-04] MEDS: INSULIN GLARGINE [LANtus] 3 ML PEN SC SCH (20:09)
[2017-08-05] VITALS (24 sets, daily range): BP systolic 87–116; BP diastolic 50–70; PULSE 97–121; RESP 11–19
[2017-08-05] MEDS: INSULIN ASPART [NOVOLOG] 3 ML PEN SC SCH ×8 (00:16→23:01)
[2017-08-05] MEDS: LANSOPRAZOLE 30 MG CAP PO SCH ×2 (05:10→17:30)
[2017-08-05 06:51] LABS: ABNORMAL IP MESSAGE 1; BASOPHILS % 0.3 % (0.0-2.0); EOSINOPHILS # 0.4 10^3/ul (0.0-0.5); EOSINOPHILS % 5.9 % (0.0-7.0); HEMATOCRIT 28.4 % (37.0-47.0); HEMOGLOBIN 8.1 g/dl (12.0-16.0); LYMPHOCYTES # 1.3 10^3/ul (0.8-2.9); LYMPHOCYTES % 21.9 % (15.0-51.0); MEAN CORPUSCULAR HEMOGLOBIN 24.5 pg (29.0-33.0); MEAN CORPUSCULAR HGB CONC 28.5 g/dl (32.0-37.0); MEAN CORPUSCULAR VOLUME 85.8 fl (82.0-101.0); MEAN PLATELET VOLUME 11.4 fl (7.4-10.4); MONOCYTE # 0.4 10^3/ul (0.3-0.9); MONOCYTES % 6.9 % (0.0-11.0); NEUTROPHIL # 3.7 10^3/ul (1.6-7.5); NEUTROPHILS % 63.5 % (39.0-77.0); PLATELET COUNT 296 10^3/UL (140-415); RED BLOOD COUNT 3.31 10^6/ul (4.20-5.40); RED CELL DISTRIBUTION WIDTH 19.4 % (11.5-14.5); WHITE BLOOD COUNT 5.9 10^3/ul (4.8-10.8)
[2017-08-05 07:02] LABS: POSITIVE DIFF @See below
[2017-08-05 07:14] LABS: CALCIUM 10.5 mg/dl (8.4-10.2); CREATININE 1.64 mg/dl (0.44-1.00); POTASSIUM 3.3 mmol/L (3.5-5.1)
[2017-08-05] MEDS: METOCLOPRAMIDE 10 MG TAB GTB SCH ×2 (09:32→21:55)
[2017-08-05] MEDS: DOCUSATE SODIUM 10 MG/ML (10ML CUP) GTB SCH ×2 (09:32→21:54)
[2017-08-05] MEDS: ZINC SULFATE 220 MG CAP GTB SCH (09:33)
[2017-08-05] MEDS: MAGNESIUM OXIDE 400 MG TAB GTB SCH (09:33)
[2017-08-05] MEDS: SUCRALFATE 1 GM TAB GTB SCH (09:33)
[2017-08-05] MEDS: FLUCONAZOLE 100 MG TAB PO SCH (09:33)
[2017-08-05] MEDS: traMADol 50 MG TAB GTB SCH (09:33)
[2017-08-05] MEDS: ASCORBIC ACID 500 MG TAB GTB SCH (09:33)
[2017-08-05] MEDS: BACLOFEN 10 MG TAB GTB SCH ×3 (09:33→21:55)
[2017-08-05] MEDS: SODIUM HYPOCHLORITE 1/40% 1L IRRIG IRR SCH ×2 (09:34→21:50)
[2017-08-05] MEDS: ZYVOX 600 MG TAB PO SCH ×2 (09:34→21:55)
[2017-08-05] MEDS: COLLAGENASE 30 GM TUBE TOP SCH (09:34)
[2017-08-05] MEDS: MULTIVITAMINS THERAPEUTIC TAB GTB SCH (09:34)
[2017-08-05] MEDS: COLISTIMETHATE 135 MG in SOD CHLORIDE 0.9% 100 ML IVPB SCH (09:50)
[2017-08-05] MEDS: ACETAMINOPHEN 325 MG TAB GTB PRN (12:48)
--- NOTE | 2017-08-05 13:42 | PN ---
Date/Time of Note Date/Time of Note DATE: 08/05/17 TIME: 13:32 Assessment/Plan Lines/Catheters IV Catheter Type (from [facility] PICC Line Urinary Cath still in place: Yes Assessment/Plan Assessment/Plan - Persistent Tachycardia-possibly sec to sepsis - will get cardio consult- Dr De La Torre notified -Sepsis secondary to UTI, possible pneumonia, infected wounds. Continue antibiotics per ID . Dr. Zavaleta is following in infection disease consultation. -Anemia of chronic disease, continue Epogen. Dr. Ruiz is following in gastroenterology consultation. -Diabetes mellitus, continue Lantus and NovoLog per sliding scale with Accu- Chek every 4 hours. -Advanced multiple sclerosis -Ventilator dependent respiratory failure. Dr. Blackwell is following in pulmonology consultation. -Dysphagia with PEG -Multiple decubitus ulcer, continue wound care per wound care consult. Dr. High is following in general surgery consultation. -Acute on chronic encephalopathy. Further recommendations based on clinical course. Plan of care discussed with Dr. Taylor. Subjective 24 Hr Interval Summary Free Text/Dictation febrile, tachycardia, borderline BP.no bleeding from sacral wound , hemoglobin and hematocrit stable. Blood sugar is in the above 200, will increase Lantus to 30, NovoLog sliding scale with Accu-Chek every 4 hours. Subjective hx not possible: pt non-verbal Constitutional: requiring IVF, requiring O2 Exam/Review of Systems Vital Signs Vitals Vital Signs Date Time Temp Pulse Resp B/P Pulse Ox O2 Delivery O2 Flow Rate FiO2 08/05/17 12:36 121 08/05/17 11:33 102.3 18 116/70 95 08/05/17 11:10 30 Intake and Output 08/04/17 08/04/17 08/05/17 15:00 23:00 07:00 Intake Total 1000 ml Output Total 800 ml Balance 200 ml Exam Constitutional: non-verbal Neck: other (trach intact) Respiratory: diminished breath sounds Cardiovascular: other (S1S2) Gastrointestinal: non-tender, other (GT intact), soft Musculoskeletal: muscle weakness Extremities: normal pulses Neurological: unresponsive Results Result Diagram: 08/05/17 0538 08/05/17 0538 Results 24 hrs Laboratory Tests Test 08/04/17 16:38 08/04/17 20:03 08/05/17 00:14 08/05/17 05:38 Bedside Glucose 227 H 205 236 H White Blood Count 5.9 Red Blood Count 3.31 L Hemoglobin 8.1 L Hematocrit 28.4 L Mean Corpuscular Volume 85.8 Mean Corpuscular Hemoglobin 24.5 L Mean Corpuscular Hemoglobin Concent 28.5 L Red Cell Distribution Width 19.4 H Platelet Count 296 Mean Platelet Volume 11.4 H Neutrophils % 63.5 Lymphocytes % 21.9 Monocytes % 6.9 Eosinophils % 5.9 Basophils % 0.3 Nucleated Red Blood Cells % 0.0 Neutrophils # 3.7 Lymphocytes # 1.3 Monocytes # 0.4 Eosinophils # 0.4 Basophils # 0.0 Nucleated Red Blood Cells # 0.0 Sodium Level 146 H Potassium Level 3.3 L Chloride Level 110 Carbon Dioxide Level 26 Anion Gap 13 Blood Urea Nitrogen 35 H Creatinine 1.64 H Glucose Level 204 Calcium Level 10.5 H Test 08/05/17 09:29 08/05/17 12:49 Bedside Glucose 241 H 286 H Medications Medications Current Medications Miscellaneous Information (Pending [facility] Order For Wound Care) This patient stern... PRN PRN XX WOUND CARE; Start 07/22/17 at 03:30 Acetaminophen (Tylenol Tab) 650 mg Q4 PRN GTB ELEVATED TEMPERATURE Last administered on 08/05/17 12:48; Admin Dose 650 MG; Start 07/22/17 at 05:30 Baclofen (Lioresal) 20 mg TID GTB Last administered on 08/05/17 12:47; Admin Dose 20 MG; Start 07/22/17 at 09:00 Bisacodyl (Dulcolax Supp) 10 mg DAILY PRN [place] CONSTIPATION; Start 07/22/17 at 05:30 Docusate Sodium (Colace Liquid Cup) 100 mg BID GTB Last administered on 09:32; Admin Dose 100 MG; Start 07/22/17 at 09:00 Epoetin Andrey (Epogen (Esrd)) 15,000 units MoWeFr@17 SC Last administered on 16:40; Admin Dose 15,000 UNITS; Start 07/24/17 at 17:00 Magnesium Hydroxide (Milk Of Mag) 30 ml Q24H PRN PO CONSTIPATION; Start at 05:30 Magnesium Oxide (Mag-Ox 400) 800 mg DAILY GTB Last administered on 08/05/17 09 :33; Admin Dose 800 MG; Start 07/22/17 at 09:00 Metoclopramide HCl (Reglan) 10 mg BID GTB Last administered on 08/05/17 09:32 ; Admin Dose 10 MG; Start 07/22/17 at 09:00 Mineral Oil (Fleet Mineral Oil Enema) 133 ml DAILY PRN [place] CONSTIPATION; Start 07/22/17 at 05:30 Multivitamins Therapeutic (Theragran) 1 tab DAILY GTB Last administered on 08/05 09:34; Admin Dose 1 TAB; Start 07/22/17 at 09:00 Sucralfate (Carafate) 1 gm DAILY GTB Last administered on 08/05/17 09:33; Admin Dose 1 GM; Start 07/22/17 at 09:00 Tramadol HCl (Ultram) 100 mg DAILY GTB Last administered on 08/05/17 09:33; Admin Dose 100 MG; Start 07/22/17 at 09:00 Acetaminophen/ Hydrocodone Bitart ([place] (5/325)) 1 tab Q6H PRN GTB PAIN LEVEL 7-10; Start 07/22/17 at 05:30 Miscellaneous Information 1 ea NOTE XX ; Start 07/22/17 at 15:00 Glucose (Glutose) 15 gm Q15M PRN PO DECREASED GLUCOSE; Start 07/22/17 at 15:00 Glucose (Glutose) 22.5 gm Q15M PRN PO DECREASED GLUCOSE; Start 07/22/17 at 15: 00 Dextrose (D50w Syringe) 25 ml Q15M PRN IV DECREASED GLUCOSE; Start 07/22/17 at 15:00 Dextrose (D50w Syringe) 50 ml Q15M PRN IV DECREASED GLUCOSE; Start 07/22/17 at 15:00 Glucagon (Glucagen) 1 mg Q15M PRN IM DECREASED GLUCOSE; Start 07/22/17 at 15: 00 Glucose (Glutose) 15 gm Q15M PRN BUCCAL DECREASED GLUCOSE; Start 07/22/17 at 15:00 Linezolid (Zyvox) 600 mg BID PO Last administered on 08/05/17 09:34; Admin Dose 600 MG; Start 07/23/17 at 21:00 Fluconazole (Diflucan) 100 mg DAILY PO Last administered on 08/05/17 09:33; Admin Dose 100 MG; Start 07/25/17 at 09:00 Sodium Hypochlorite (Dakin'S (Dilute 1/40%)) 1 applic BID IRR Last administered on 08/05/17 09:34; Admin Dose 1 APPLIC; Start 07/26/17 at 21:00 Lansoprazole (Prevacid) 30 mg BID@06,18 PO Last administered on 08/05/17 05:10 ; Admin Dose 30 MG; Start 07/26/17 at 18:00 Zinc Sulfate (Zinc Sulfate) 220 mg DAILY GTB Last administered on 08/05/17 09: 33; Admin Dose 220 MG; Start 07/29/17 at 09:00 Ascorbic Acid (Vitamin C) 500 mg DAILY GTB Last administered on 08/05/17 09:33 ; Admin Dose 500 MG; Start 07/29/17 at 09:00 Collagenase (Santyl) 1 applic PRN PRN TOP PRN; Start 08/01/17 at 04:30 Collagenase 1 applic 1 applic DAILY TOP Last administered on 08/05/17 09:34; Admin Dose 1 APPLIC; Start 08/01/17 at 09:00 Colistimethate Sodium/Sodium Chloride (Coly-Mycin/NS) 100 ml @ 200 mls/hr Q24H IVPB Last administered on 08/05/17 09:50; Admin Dose 200 MLS/HR; Start at 09:00 Insulin Glargine (Lantus) 30 unit DAILY@20 SC Last administered on 08/04/17 20 :09; Admin Dose 30 UNIT; Start 08/04/17 at 20:00 Insulin Aspart (Novolog Insulin Pen) NOVOLOG *MILD* ALGORI... Q4 SC Last administered on 08/05/17 12:57; Admin Dose 4 UNIT; Start 08/04/17 at 17:00 KATE LANDAVERDE Aug 05, 2017 13:42
--- NOTE | 2017-08-05 15:48 | CONS ---
Date/Time of Note Date/Time of Note DATE: 08/05/17 TIME: 15:47 Consult Date/Type/Reason Admit Date/Time Jul 21, 2017 at 23:24 Initial Consult Date 07/22/17 Type of Consultation: Pulmonary Ordering Provider: FLEX DENNISON NP Subjective no events. Objective Vital Signs Date Time Temp Pulse Resp B/P Pulse Ox O2 Delivery O2 Flow Rate FiO2 08/05/17 15:15 101 15 99 30 08/05/17 11:33 102.3 116/70 Intake and Output 08/04/17 08/04/17 08/05/17 15:00 23:00 07:00 Intake Total 1000 ml Output Total 800 ml Balance 200 ml Exam HEENT: Pupils equal, round, and reactive to light. Tracheostomy site clean and intact. CARDIAC: S1, S2, 1/6 systolic ejection murmur CHEST: Diminished air entry bilaterally. ABDOMEN: Mildly distended. Bowel sounds present no guarding or rebound EXTREMITIES: No cyanosis, clubbing edema +1 Results/Medications Result Diagram: 08/05/17 0538 08/05/17 0538 Results 24 hrs Laboratory Tests Test 08/04/17 16:38 08/04/17 20:03 08/05/17 00:14 08/05/17 05:38 Bedside Glucose 227 H 205 236 H White Blood Count 5.9 Red Blood Count 3.31 L Hemoglobin 8.1 L Hematocrit 28.4 L Mean Corpuscular Volume 85.8 Mean Corpuscular Hemoglobin 24.5 L Mean Corpuscular Hemoglobin Concent 28.5 L Red Cell Distribution Width 19.4 H Platelet Count 296 Mean Platelet Volume 11.4 H Neutrophils % 63.5 Lymphocytes % 21.9 Monocytes % 6.9 Eosinophils % 5.9 Basophils % 0.3 Nucleated Red Blood Cells % 0.0 Neutrophils # 3.7 Lymphocytes # 1.3 Monocytes # 0.4 Eosinophils # 0.4 Basophils # 0.0 Nucleated Red Blood Cells # 0.0 Sodium Level 146 H Potassium Level 3.3 L Chloride Level 110 Carbon Dioxide Level 26 Anion Gap 13 Blood Urea Nitrogen 35 H Creatinine 1.64 H Glucose Level 204 Calcium Level 10.5 H Test 08/05/17 09:29 08/05/17 12:49 Bedside Glucose 241 H 286 H Medications Current Medications Miscellaneous Information ([facility]) This patient stern... PRN PRN XX WOUND CARE; Start 07/22/17 at 03:30 Acetaminophen (Tylenol Tab) 650 mg Q4 PRN GTB ELEVATED TEMPERATURE Last administered on 08/05/17 12:48; Admin Dose 650 MG; Start 07/22/17 at 05:30 Baclofen (Lioresal) 20 mg TID GTB Last administered on 08/05/17 12:47; Admin Dose 20 MG; Start 07/22/17 at 09:00 Bisacodyl (Dulcolax Supp) 10 mg DAILY PRN [place] CONSTIPATION; Start 07/22/17 at 05:30 Docusate Sodium (Colace Liquid Cup) 100 mg BID GTB Last administered on 09:32; Admin Dose 100 MG; Start 07/22/17 at 09:00 Epoetin Andrey (Epogen (Esrd)) 15,000 units MoWeFr@17 SC Last administered on 16:40; Admin Dose 15,000 UNITS; Start 07/24/17 at 17:00 Magnesium Hydroxide (Milk Of Mag) 30 ml Q24H PRN PO CONSTIPATION; Start at 05:30 Magnesium Oxide (Mag-Ox 400) 800 mg DAILY GTB Last administered on 08/05/17 09 :33; Admin Dose 800 MG; Start 07/22/17 at 09:00 Metoclopramide HCl (Reglan) 10 mg BID GTB Last administered on 08/05/17 09:32 ; Admin Dose 10 MG; Start 07/22/17 at 09:00 Mineral Oil (Fleet Mineral Oil Enema) 133 ml DAILY PRN [place] CONSTIPATION; Start 07/22/17 at 05:30 Multivitamins Therapeutic (Theragran) 1 tab DAILY GTB Last administered on 08/05 09:34; Admin Dose 1 TAB; Start 07/22/17 at 09:00 Sucralfate (Carafate) 1 gm DAILY GTB Last administered on 08/05/17 09:33; Admin Dose 1 GM; Start 07/22/17 at 09:00 Tramadol HCl (Ultram) 100 mg DAILY GTB Last administered on 08/05/17 09:33; Admin Dose 100 MG; Start 07/22/17 at 09:00 Acetaminophen/ Hydrocodone Bitart ([facility] [facility] (5/325)) 1 tab Q6H PRN GTB PAIN LEVEL 7-10; Start 07/22/17 at 05:30 Miscellaneous Information 1 ea NOTE XX ; Start 07/22/17 at 15:00 Glucose (Glutose) 15 gm Q15M PRN PO DECREASED GLUCOSE; Start 07/22/17 at 15:00 Glucose (Glutose) 22.5 gm Q15M PRN PO DECREASED GLUCOSE; Start 07/22/17 at 15: 00 Dextrose (D50w Syringe) 25 ml Q15M PRN IV DECREASED GLUCOSE; Start 07/22/17 at 15:00 Dextrose (D50w Syringe) 50 ml Q15M PRN IV DECREASED GLUCOSE; Start 07/22/17 at 15:00 Glucagon (Glucagen) 1 mg Q15M PRN IM DECREASED GLUCOSE; Start 07/22/17 at 15: 00 Glucose (Glutose) 15 gm Q15M PRN BUCCAL DECREASED GLUCOSE; Start 07/22/17 at 15:00 Linezolid (Zyvox) 600 mg BID PO Last administered on 08/05/17 09:34; Admin Dose 600 MG; Start 07/23/17 at 21:00 Fluconazole (Diflucan) 100 mg DAILY PO Last administered on 08/05/17 09:33; Admin Dose 100 MG; Start 07/25/17 at 09:00 Sodium Hypochlorite (Dakin'S (Dilute 1/40%)) 1 applic BID IRR Last administered on 08/05/17 09:34; Admin Dose 1 APPLIC; Start 07/26/17 at 21:00 Lansoprazole (Prevacid) 30 mg BID@06,18 PO Last administered on 08/05/17 05:10 ; Admin Dose 30 MG; Start 07/26/17 at 18:00 Zinc Sulfate (Zinc Sulfate) 220 mg DAILY GTB Last administered on 08/05/17 09: 33; Admin Dose 220 MG; Start 07/29/17 at 09:00 Ascorbic Acid (Vitamin C) 500 mg DAILY GTB Last administered on 08/05/17 09:33 ; Admin Dose 500 MG; Start 07/29/17 at 09:00 Collagenase (Santyl) 1 applic PRN PRN TOP PRN; Start 08/01/17 at 04:30 Collagenase 1 applic 1 applic DAILY TOP Last administered on 08/05/17 09:34; Admin Dose 1 APPLIC; Start 08/01/17 at 09:00 Colistimethate Sodium/Sodium Chloride (Coly-Mycin/NS) 100 ml @ 200 mls/hr Q24H IVPB Last administered on 08/05/17 09:50; Admin Dose 200 MLS/HR; Start at 09:00 Insulin Glargine (Lantus) 30 unit DAILY@20 SC Last administered on 08/04/17 20 :09; Admin Dose 30 UNIT; Start 08/04/17 at 20:00 Insulin Aspart (Novolog Insulin Pen) NOVOLOG *MILD* ALGORI... Q4 SC Last administered on 08/05/17 12:57; Admin Dose 4 UNIT; Start 08/04/17 at 17:00 Insulin Aspart (Novolog Insulin Pen) 7 unit Q4 SC ; Start 08/05/17 at 17:00 Assessment/Plan Chief Complaint/Hosp Course This is a 56-year-old female with history of VDRF, chronic encepalopathy, PEG, who was sent from [facility] for having a low hemoglobin and urosepsis Problems: Additional Assessment/Plan IMP: 1. Anemia--workup in place. 2. Urosepsis 3. VDRF 4. Encephalopathy RECS: 1. Vent support 2. BD's/CPT 3. Abx per ID 4. GIB w/u per XIN MCHUGH MD Aug 05, 2017 15:48
--- NOTE | 2017-08-05 16:45 | CONS ---
Date/Time of Note Date/Time of Note DATE: 08/05/17 TIME: 16:36 Consultation Date/Type/Reason Admit Date/Time Jul 21, 2017 at 23:24 Initial Consult Date SUBJECTIVE: 56 y/o female being treated for UTI and sepsis. No acutes over night. FEver today at 102.3 and tachycardia. Pt. non-verbal. Comfortably resting in bed. VS: 116/70 P: 126 R:18 T: 102.3 SO2: 95%. LABS: WBC-5.9 H&H: 8.1/28.4 BUN-35 Cr-1.64. Microbiology: Wound culture growing Acinetobacter, VRE, Pilar albicans, MRSA , coag negative staph species. Blood culture grew staph species, urine culture growing gram-negative rods. URINE CULTURE Final Organism 1 PSEUDOMONAS AERUGINOSA COLONY COUNT 10,000 - 20,000 CFU/ml Indwelling: Trach/PEG/PICC/Joel Abx: Colistin IV, Diflucan PO, Zyvox PO BID ALL: PCN, Levaquin, Vanco, Cephalosporins GENERAL: The patient is a nonverbal female who is awake, noncommunicative, no acute distress. SKIN: Without generalized rash. HEENT: Within normal limits. NECK: Supple. Lymph nodes nonpalpable. She has a tracheostomy in place. SKIN: She has a PICC line on the left side in the superior vena cava. CHEST: Decreased breath sounds at the bases. HEART: Without murmur or gallop. ABDOMEN: Soft, nontender. G-tube in place. + BT EXTREMITIES: Without cyanosis, clubbing or edema. Assessment: 1. Sepsis with ongoing fevers and tachycardia 2. Persistent UTI==> GNR 2. Multiple chronic wounds 3. Acute on chronic anemia 4. ARF=> nephrology follows 5. VDRF 6. Chronic encephalopathy 7. Bacteremia, possibly contaminant vs 2 to wounds Plan: Clinically unchanged and stable. Continue current abx, local wound care and pain management. Vent per pulmonary, surgical rec-s. Type of Consultation: ID Referring Provider: FLEX DENNISON PRESS TENDER Exam/Review of Systems Vital Signs Vitals Vital Signs Date Time Temp Pulse Resp B/P Pulse Ox O2 Delivery O2 Flow Rate FiO2 08/05/17 16:24 100 08/05/17 15:15 15 99 30 08/05/17 11:33 102.3 116/70 Intake and Output 08/04/17 08/04/17 08/05/17 15:00 23:00 07:00 Intake Total 1000 ml Output Total 800 ml Balance 200 ml Results Result Diagram: 08/05/17 0538 08/05/17 0538 Results 24 hrs Laboratory Tests Test 08/04/17 16:38 08/04/17 20:03 08/05/17 00:14 08/05/17 05:38 Bedside Glucose 227 H 205 236 H White Blood Count 5.9 Red Blood Count 3.31 L Hemoglobin 8.1 L Hematocrit 28.4 L Mean Corpuscular Volume 85.8 Mean Corpuscular Hemoglobin 24.5 L Mean Corpuscular Hemoglobin Concent 28.5 L Red Cell Distribution Width 19.4 H Platelet Count 296 Mean Platelet Volume 11.4 H Neutrophils % 63.5 Lymphocytes % 21.9 Monocytes % 6.9 Eosinophils % 5.9 Basophils % 0.3 Nucleated Red Blood Cells % 0.0 Neutrophils # 3.7 Lymphocytes # 1.3 Monocytes # 0.4 Eosinophils # 0.4 Basophils # 0.0 Nucleated Red Blood Cells # 0.0 Sodium Level 146 H Potassium Level 3.3 L Chloride Level 110 Carbon Dioxide Level 26 Anion Gap 13 Blood Urea Nitrogen 35 H Creatinine 1.64 H Glucose Level 204 Calcium Level 10.5 H Test 08/05/17 09:29 08/05/17 12:49 Bedside Glucose 241 H 286 H Medications Medications Current Medications Miscellaneous Information (Pending Santyl Order For Wound Care) This patient stern... PRN PRN XX WOUND CARE; Start 07/22/17 at 03:30 Acetaminophen (Tylenol Tab) 650 mg Q4 PRN GTB ELEVATED TEMPERATURE Last administered on 08/05/17 12:48; Admin Dose 650 MG; Start 07/22/17 at 05:30 Baclofen (Lioresal) 20 mg TID GTB Last administered on 08/05/17 12:47; Admin Dose 20 MG; Start 07/22/17 at 09:00 Bisacodyl (Dulcolax Supp) 10 mg DAILY PRN [place] CONSTIPATION; Start 07/22/17 at 05:30 Docusate Sodium (Colace Liquid Cup) 100 mg BID GTB Last administered on 09:32; Admin Dose 100 MG; Start 07/22/17 at 09:00 Epoetin Andrey (Epogen (Esrd)) 15,000 units MoWeFr@17 SC Last administered on 16:40; Admin Dose 15,000 UNITS; Start 07/24/17 at 17:00 Magnesium Hydroxide (Milk Of Mag) 30 ml Q24H PRN PO CONSTIPATION; Start at 05:30 Magnesium Oxide (Mag-Ox 400) 800 mg DAILY GTB Last administered on 08/05/17 09 :33; Admin Dose 800 MG; Start 07/22/17 at 09:00 Metoclopramide HCl (Reglan) 10 mg BID GTB Last administered on 08/05/17 09:32 ; Admin Dose 10 MG; Start 07/22/17 at 09:00 Mineral Oil (Fleet Mineral Oil Enema) 133 ml DAILY PRN [place] CONSTIPATION; Start 07/22/17 at 05:30 Multivitamins Therapeutic (Theragran) 1 tab DAILY GTB Last administered on 08/05 09:34; Admin Dose 1 TAB; Start 07/22/17 at 09:00 Sucralfate (Carafate) 1 gm DAILY GTB Last administered on 08/05/17 09:33; Admin Dose 1 GM; Start 07/22/17 at 09:00 Tramadol HCl (Ultram) 100 mg DAILY GTB Last administered on 08/05/17 09:33; Admin Dose 100 MG; Start 07/22/17 at 09:00 Acetaminophen/ Hydrocodone Bitart ([place] (5/325)) 1 tab Q6H PRN GTB PAIN LEVEL 7-10; Start 07/22/17 at 05:30 Miscellaneous Information 1 ea NOTE XX ; Start 07/22/17 at 15:00 Glucose (Glutose) 15 gm Q15M PRN PO DECREASED GLUCOSE; Start 07/22/17 at 15:00 Glucose (Glutose) 22.5 gm Q15M PRN PO DECREASED GLUCOSE; Start 07/22/17 at 15: 00 Dextrose (D50w Syringe) 25 ml Q15M PRN IV DECREASED GLUCOSE; Start 07/22/17 at 15:00 Dextrose (D50w Syringe) 50 ml Q15M PRN IV DECREASED GLUCOSE; Start 07/22/17 at 15:00 Glucagon (Glucagen) 1 mg Q15M PRN IM DECREASED GLUCOSE; Start 07/22/17 at 15: 00 Glucose (Glutose) 15 gm Q15M PRN BUCCAL DECREASED GLUCOSE; Start 07/22/17 at 15:00 Linezolid (Zyvox) 600 mg BID PO Last administered on 08/05/17 09:34; Admin Dose 600 MG; Start 07/23/17 at 21:00 Fluconazole (Diflucan) 100 mg DAILY PO Last administered on 08/05/17 09:33; Admin Dose 100 MG; Start 07/25/17 at 09:00 Sodium Hypochlorite (Dakin'S (Dilute 1/40%)) 1 applic BID IRR Last administered on 08/05/17 09:34; Admin Dose 1 APPLIC; Start 07/26/17 at 21:00 Lansoprazole (Prevacid) 30 mg BID@06,18 PO Last administered on 08/05/17 05:10 ; Admin Dose 30 MG; Start 07/26/17 at 18:00 Zinc Sulfate (Zinc Sulfate) 220 mg DAILY GTB Last administered on 08/05/17 09: 33; Admin Dose 220 MG; Start 07/29/17 at 09:00 Ascorbic Acid (Vitamin C) 500 mg DAILY GTB Last administered on 08/05/17 09:33 ; Admin Dose 500 MG; Start 07/29/17 at 09:00 Collagenase (Santyl) 1 applic PRN PRN TOP PRN; Start 08/01/17 at 04:30 Collagenase 1 applic 1 applic DAILY TOP Last administered on 08/05/17 09:34; Admin Dose 1 APPLIC; Start 08/01/17 at 09:00 Colistimethate Sodium/Sodium Chloride (Coly-Mycin/NS) 100 ml @ 200 mls/hr Q24H IVPB Last administered on 08/05/17 09:50; Admin Dose 200 MLS/HR; Start at 09:00 Insulin Glargine (Lantus) 30 unit DAILY@20 SC Last administered on 08/04/17 20 :09; Admin Dose 30 UNIT; Start 08/04/17 at 20:00 Insulin Aspart (Novolog Insulin Pen) NOVOLOG *MILD* ALGORI... Q4 SC Last administered on 08/05/17 12:57; Admin Dose 4 UNIT; Start 08/04/17 at 17:00 Insulin Aspart (Novolog Insulin Pen) 7 unit Q4 SC ; Start 08/05/17 at 17:00 Metoprolol Tartrate (Lopressor) 25 mg BID PO ; Start 08/05/17 at 21:00 MICHEL EARL Aug 05, 2017 16:45
--- NOTE | 2017-08-05 17:21 | CONS ---
Date/Time of Note Date/Time of Note DATE: 08/05/17 TIME: 17:18 Assessment/Plan Assessment/Plan Additional Assessment/Plan 1. Acute kidney injury due to ATN From sepsis + prerenal azotemia 2. Sepsis due to UTI 3. Chronic resp failure s/p Tracheostomy on ventilator 4/ Anemia of chronic disease 5/ HTN 6. UTI with Urine cx growing Gram negative rods Plan : Cr bumped to 1,5 Na trending up, K low continue Tube feeding as ordered IV abx colimycin and zyvox, ID following will give one liter of iVF with KCL 20mEQ at 70 cc/hr then reassess Cr in AM vent management as per pulmonary will follow up Consultation Date/Type/Reason Admit Date/Time Jul 21, 2017 at 23:24 Initial Consult Date 07/22/17 Type of Consultation: NEPHROLOGY Referring Provider: FLEX DENNISON CAMPAIGN MARKETING MANAGER Exam/Review of Systems Vital Signs Vitals Vital Signs Date Time Temp Pulse Resp B/P Pulse Ox O2 Delivery O2 Flow Rate FiO2 08/05/17 16:24 100 08/05/17 15:15 15 99 30 08/05/17 11:33 102.3 116/70 Intake and Output 08/04/17 08/04/17 08/05/17 15:00 23:00 07:00 Intake Total 1000 ml Output Total 800 ml Balance 200 ml Exam Constitutional: non-verbal, + tracheostomy on ventilator Neck: non-tender, supple Respiratory: crackles/rales, diminished breath sounds Cardiovascular: nl pulses, regular rate and rhythm Gastrointestinal: non-tender, soft, +G tube Musculoskeletal: dry skin, pedal pulses 2+ Extremities: normal pulses Results Result Diagram: 08/05/17 0538 08/05/17 0538 Results 24 hrs Laboratory Tests Test 08/04/17 20:03 08/05/17 00:14 08/05/17 05:38 08/05/17 09:29 Bedside Glucose 205 236 H 241 H White Blood Count 5.9 Red Blood Count 3.31 L Hemoglobin 8.1 L Hematocrit 28.4 L Mean Corpuscular Volume 85.8 Mean Corpuscular Hemoglobin 24.5 L Mean Corpuscular Hemoglobin Concent 28.5 L Red Cell Distribution Width 19.4 H Platelet Count 296 Mean Platelet Volume 11.4 H Neutrophils % 63.5 Lymphocytes % 21.9 Monocytes % 6.9 Eosinophils % 5.9 Basophils % 0.3 Nucleated Red Blood Cells % 0.0 Neutrophils # 3.7 Lymphocytes # 1.3 Monocytes # 0.4 Eosinophils # 0.4 Basophils # 0.0 Nucleated Red Blood Cells # 0.0 Sodium Level 146 H Potassium Level 3.3 L Chloride Level 110 Carbon Dioxide Level 26 Anion Gap 13 Blood Urea Nitrogen 35 H Creatinine 1.64 H Glucose Level 204 Calcium Level 10.5 H Test 08/05/17 12:49 Bedside Glucose 286 H Medications Medications Current Medications Miscellaneous Information (Pending Santyl Order For Wound Care) This patient stern... PRN PRN XX WOUND CARE; Start 07/22/17 at 03:30 Acetaminophen (Tylenol Tab) 650 mg Q4 PRN GTB ELEVATED TEMPERATURE Last administered on 08/05/17 12:48; Admin Dose 650 MG; Start 07/22/17 at 05:30 Baclofen (Lioresal) 20 mg TID GTB Last administered on 08/05/17 12:47; Admin Dose 20 MG; Start 07/22/17 at 09:00 Bisacodyl (Dulcolax Supp) 10 mg DAILY PRN [place] CONSTIPATION; Start 07/22/17 at 05:30 Docusate Sodium (Colace Liquid Cup) 100 mg BID GTB Last administered on 09:32; Admin Dose 100 MG; Start 07/22/17 at 09:00 Epoetin Andrey (Epogen (Esrd)) 15,000 units MoWeFr@17 SC Last administered on 16:40; Admin Dose 15,000 UNITS; Start 07/24/17 at 17:00 Magnesium Hydroxide (Milk Of Mag) 30 ml Q24H PRN PO CONSTIPATION; Start at 05:30 Magnesium Oxide (Mag-Ox 400) 800 mg DAILY GTB Last administered on 08/05/17 09 :33; Admin Dose 800 MG; Start 07/22/17 at 09:00 Metoclopramide HCl (Reglan) 10 mg BID GTB Last administered on 08/05/17 09:32 ; Admin Dose 10 MG; Start 07/22/17 at 09:00 Mineral Oil (Fleet Mineral Oil Enema) 133 ml DAILY PRN [place] CONSTIPATION; Start 07/22/17 at 05:30 Multivitamins Therapeutic (Theragran) 1 tab DAILY GTB Last administered on 08/05 09:34; Admin Dose 1 TAB; Start 07/22/17 at 09:00 Sucralfate (Carafate) 1 gm DAILY GTB Last administered on 08/05/17 09:33; Admin Dose 1 GM; Start 07/22/17 at 09:00 Tramadol HCl (Ultram) 100 mg DAILY GTB Last administered on 08/05/17 09:33; Admin Dose 100 MG; Start 07/22/17 at 09:00 Acetaminophen/ Hydrocodone Bitart ([place] (5/325)) 1 tab Q6H PRN GTB PAIN LEVEL 7-10; Start 07/22/17 at 05:30 Miscellaneous Information 1 ea NOTE XX ; Start 07/22/17 at 15:00 Glucose (Glutose) 15 gm Q15M PRN PO DECREASED GLUCOSE; Start 07/22/17 at 15:00 Glucose (Glutose) 22.5 gm Q15M PRN PO DECREASED GLUCOSE; Start 07/22/17 at 15: 00 Dextrose (D50w Syringe) 25 ml Q15M PRN IV DECREASED GLUCOSE; Start 07/22/17 at 15:00 Dextrose (D50w Syringe) 50 ml Q15M PRN IV DECREASED GLUCOSE; Start 07/22/17 at 15:00 Glucagon (Glucagen) 1 mg Q15M PRN IM DECREASED GLUCOSE; Start 07/22/17 at 15: 00 Glucose (Glutose) 15 gm Q15M PRN BUCCAL DECREASED GLUCOSE; Start 07/22/17 at 15:00 Linezolid (Zyvox) 600 mg BID PO Last administered on 08/05/17 09:34; Admin Dose 600 MG; Start 07/23/17 at 21:00 Fluconazole (Diflucan) 100 mg DAILY PO Last administered on 08/05/17 09:33; Admin Dose 100 MG; Start 07/25/17 at 09:00 Sodium Hypochlorite (Dakin'S (Dilute 1/40%)) 1 applic BID IRR Last administered on 08/05/17 09:34; Admin Dose 1 APPLIC; Start 07/26/17 at 21:00 Lansoprazole (Prevacid) 30 mg BID@,18 PO Last administered on 08/05/17 05:10 ; Admin Dose 30 MG; Start 07/26/17 at 18:00 Zinc Sulfate (Zinc Sulfate) 220 mg DAILY GTB Last administered on 08/05/17 09: 33; Admin Dose 220 MG; Start 07/29/17 at 09:00 Ascorbic Acid (Vitamin C) 500 mg DAILY GTB Last administered on 08/05/17 09:33 ; Admin Dose 500 MG; Start 07/29/17 at 09:00 Collagenase (Santyl) 1 applic PRN PRN TOP PRN; Start 08/01/17 at 04:30 Collagenase 1 applic 1 applic DAILY TOP Last administered on 08/05/17 09:34; Admin Dose 1 APPLIC; Start 08/01/17 at 09:00 Colistimethate Sodium/Sodium Chloride (Coly-Mycin/NS) 100 ml @ 200 mls/hr Q24H IVPB Last administered on 08/05/17 09:50; Admin Dose 200 MLS/HR; Start at 09:00 Insulin Glargine (Lantus) 30 unit DAILY@20 SC Last administered on 08/04/17 20 :09; Admin Dose 30 UNIT; Start 08/04/17 at 20:00 Insulin Aspart (Novolog Insulin Pen) NOVOLOG *MILD* ALGORI... Q4 SC Last administered on 08/05/17 12:57; Admin Dose 4 UNIT; Start 08/04/17 at 17:00 Insulin Aspart (Novolog Insulin Pen) 7 unit Q4 SC ; Start 08/05/17 at 17:00 Metoprolol Tartrate (Lopressor) 25 mg BID PO ; Start 08/05/17 at 21:00 LIZETTE ALEX MD Aug 05, 2017 17:20
[2017-08-05] MEDS ORDERED: NS + KCL 20 MEQ 1,000 ML IV SCH (17:30)
--- NOTE | 2017-08-05 18:56 | PN ---
Date/Time of Note Date/Time of Note DATE: 08/05/17 TIME: 18:48 Assessment/Plan Lines/Catheters IV Catheter Type (from Nrs): PICC Line Joel in Place (from Nrs): Yes Assessment/Plan Chief Complaint/Hosp Course 1. Multiple wound: 2/2 immobility; cultures noted: s/p debridement today -debridement prn -local care-bid -frequent turning and off-loading -low air loss mattress -vitamin c -short term zinc -optimize nutrition 2. Hypochromic anemia: no acute bleed noted -monitor -transfuse as needed 3. UTI: cultures noted -abx per sensitivity -frequent bladder emptying/cath care 4. VDRF -pulm toilet -respiratory treatments 5. Fevers and tachycardia: likely 2/2 #3, 1 -as above Thank you. Patient seen and examined in collaboration with Dr. Hi High. Problems: Subjective 24 Hr Interval Summary Fevers and tachycardia. Appears comfortable on vent. Non verbal indicators of pain not present. No sz, congested cough, vomiting, diarrhea, wounds without excessive drainage/bleeding. Exam/Review of Systems Vital Signs Vitals Vital Signs Date Time Temp Pulse Resp B/P Pulse Ox O2 Delivery O2 Flow Rate FiO2 08/05/17 17:15 102 17 99 30 08/05/17 11:33 102.3 116/70 Intake and Output 08/04/17 08/04/17 08/05/17 15:00 23:00 07:00 Intake Total 1000 ml Output Total 800 ml Balance 200 ml Exam Free Text/Dictation Constitutional: alert, other (nonverbal), diaphoretic Head: atraumatic, normocephalic Eyes: nl lids, nl sclera, No icteric ENMT: mucosa pink and moist, nl nasal mucosa & septum Neck: non-tender, other (trach), supple Respiratory: other (vent), No labored breathing Cardiovascular: regular rate and rhythm: st Gastrointestinal: non-tender, other (peg; umbilical hernia, rotund), soft Extremities: normal pulses, other (stiffness) Neurological: other (withdraws from painful stimuli) Skin: other (multiple wounds: packed, min drainage) Results Result Diagram: 08/05/17 0538 08/05/17 0538 SANFORD RODRIGUEZ NP Aug 05, 2017 18:56
[2017-08-05] MEDS: METOPROLOL 25 MG TAB PO SCH (21:45)
[2017-08-05] MEDS: INSULIN GLARGINE [LANtus] 3 ML PEN SC SCH (23:00)
[2017-08-06] VITALS (24 sets, daily range): BP systolic 90–111; BP diastolic 51–69; PULSE 81–100; RESP 10–19
[2017-08-06] MEDS: INSULIN ASPART [NOVOLOG] 3 ML PEN SC SCH ×12 (01:28→22:15)
[2017-08-06] MEDS: LANSOPRAZOLE 30 MG CAP PO SCH ×2 (05:24→17:35)
--- NOTE | 2017-08-06 05:29 | RADRPT ---
PROCEDURE: XR Chest. CLINICAL INDICATION: Persistent tachycardia. TECHNIQUE: Single portable view of the chest was obtained COMPARISON: CR CHEST 12/15/2016; CR CHEST 11/24/2016; CR PORT CHEST 11/20/2016 FINDINGS: Tracheostomy tube overlies the upper trachea. Left upper extremity PICC line tip overlies the proxim al superior vena cava. Cardiomediastinal silhouette is within normal limits. There is chronic mild e levation of the left hemidiaphragm. Left lower lobe scar or discoid atelectasis is present. No evide nce of a pneumothorax. IMPRESSION: 1. Satisfactory position of a tracheostomy tube and left upper extremity PICC line. 2. Left lower lobe scar or discoid atelectasis. RPTAT: HRSR Physician Demian Date Time Electronically viewed and signed by Penelope Cortés Physician on 08/06/2017 05:29 RR/
[2017-08-06] MEDS: DOCUSATE SODIUM 10 MG/ML (10ML CUP) GTB SCH ×2 (09:08→21:01)
[2017-08-06] MEDS: COLISTIMETHATE 135 MG in SOD CHLORIDE 0.9% 100 ML IVPB SCH (09:08)
[2017-08-06] MEDS: MULTIVITAMINS THERAPEUTIC TAB GTB SCH (09:10)
[2017-08-06] MEDS: METOCLOPRAMIDE 10 MG TAB GTB SCH ×2 (09:10→21:01)
[2017-08-06] MEDS: traMADol 50 MG TAB GTB SCH (09:10)
[2017-08-06] MEDS: ASCORBIC ACID 500 MG TAB GTB SCH (09:10)
[2017-08-06] MEDS: FLUCONAZOLE 100 MG TAB PO SCH (09:10)
[2017-08-06] MEDS: ZYVOX 600 MG TAB PO SCH ×2 (09:10→21:01)
[2017-08-06] MEDS: ACETAMINOPHEN 325 MG TAB GTB PRN (09:10)
[2017-08-06] MEDS: MAGNESIUM OXIDE 400 MG TAB GTB SCH (09:10)
[2017-08-06] MEDS: METOPROLOL 25 MG TAB PO SCH ×2 (09:12→21:02)
[2017-08-06] MEDS: BACLOFEN 10 MG TAB GTB SCH ×3 (09:12→21:01)
[2017-08-06] MEDS: ZINC SULFATE 220 MG CAP GTB SCH (09:12)
[2017-08-06] MEDS: SUCRALFATE 1 GM TAB GTB SCH (09:12)
[2017-08-06] MEDS: SODIUM HYPOCHLORITE 1/40% 1L IRRIG IRR SCH ×2 (09:12→21:02)
[2017-08-06] MEDS: COLLAGENASE 30 GM TUBE TOP SCH (09:13)
[2017-08-06 11:34] LABS: ABNORMAL IP MESSAGE 1; BASOPHILS % 0.3 % (0.0-2.0); EOSINOPHILS # 0.5 10^3/ul (0.0-0.5); EOSINOPHILS % 6.3 % (0.0-7.0); HEMATOCRIT 27.3 % (37.0-47.0); HEMOGLOBIN 7.7 g/dl (12.0-16.0); LYMPHOCYTES # 1.3 10^3/ul (0.8-2.9); LYMPHOCYTES % 17.5 % (15.0-51.0); MEAN CORPUSCULAR HEMOGLOBIN 24.6 pg (29.0-33.0); MEAN CORPUSCULAR HGB CONC 28.2 g/dl (32.0-37.0); MEAN CORPUSCULAR VOLUME 87.2 fl (82.0-101.0); MEAN PLATELET VOLUME 11.2 fl (7.4-10.4); MONOCYTE # 0.5 10^3/ul (0.3-0.9); NEUTROPHIL # 4.8 10^3/ul (1.6-7.5); NEUTROPHILS % 67.5 % (39.0-77.0); PLATELET COUNT 290 10^3/UL (140-415); RED BLOOD COUNT 3.13 10^6/ul (4.20-5.40); RED CELL DISTRIBUTION WIDTH 19.4 % (11.5-14.5); WHITE BLOOD COUNT 7.2 10^3/ul (4.8-10.8)
[2017-08-06 11:37] LABS: POSITIVE DIFF @See below
[2017-08-06 11:58] LABS: CALCIUM 10.1 mg/dl (8.4-10.2); CREATININE 1.62 mg/dl (0.44-1.00); POTASSIUM 3.6 mmol/L (3.5-5.1)
--- NOTE | 2017-08-06 13:34 | CONS ---
Date/Time of Note Date/Time of Note DATE: 08/06/17 TIME: 13:31 Assessment/Plan Assessment/Plan Additional Assessment/Plan Sinus Tachycardia VDRF Acute Renal failure Urosepsis Anemia HTN DM Sinus Tachycardia resolved with metoprolol Continue Metoprolol Continue vent Support Continue Antibiotics Continue Insulin sliding scale Consultation Date/Type/Reason Admit Date/Time Jul 21, 2017 at 23:24 Initial Consult Date 07/26/17 Type of Consultation: NEPHROLOGY Referring Provider: FLEX DENNISON NP Exam/Review of Systems Vital Signs Vitals Vital Signs Date Time Temp Pulse Resp B/P Pulse Ox O2 Delivery O2 Flow Rate FiO2 08/06/17 12:24 83 08/06/17 12:03 98.8 18 101/59 100 08/06/17 11:00 30 08/05/17 16:00 Mechanical Ventilator Intake and Output 08/05/17 08/05/17 08/06/17 15:00 23:00 07:00 Intake Total 100 ml 1050 ml 960 ml Output Total 700 ml 1300 ml Balance 100 ml 350 ml -340 ml Exam Gen: on Vent CVS RRR, no m/r/g Chest Mechanical breath sounds heard bilaterally Abd Soft BS heard Ext No pedal edema Results Result Diagram: 08/06/17 1106 08/06/17 1106 Results 24 hrs Laboratory Tests Test 08/05/17 17:29 08/05/17 19:15 08/05/17 21:53 08/06/17 00:59 Bedside Glucose 253 H 230 H Troponin I < 0.012 < 0.012 Test 08/06/17 01:13 08/06/17 05:23 08/06/17 05:42 08/06/17 09:16 Bedside Glucose 200 200 211 Troponin I < 0.012 Test 08/06/17 11:06 08/06/17 12:28 White Blood Count 7.2 # Red Blood Count 3.13 L Hemoglobin 7.7 L Hematocrit 27.3 L Mean Corpuscular Volume 87.2 Mean Corpuscular Hemoglobin 24.6 L Mean Corpuscular Hemoglobin Concent 28.2 L Red Cell Distribution Width 19.4 H Platelet Count 290 Mean Platelet Volume 11.2 H Neutrophils % 67.5 Lymphocytes % 17.5 Monocytes % 7.0 Eosinophils % 6.3 Basophils % 0.3 Nucleated Red Blood Cells % 0.0 Neutrophils # 4.8 Lymphocytes # 1.3 Monocytes # 0.5 Eosinophils # 0.5 Basophils # 0.0 Nucleated Red Blood Cells # 0.0 Sodium Level 145 H Potassium Level 3.6 Chloride Level 110 Carbon Dioxide Level 22 Anion Gap 17 H Blood Urea Nitrogen 34 H Creatinine 1.62 H Glucose Level 199 Calcium Level 10.1 Troponin I < 0.012 Bedside Glucose 207 Medications Medications Current Medications Misc[facility] This patient stern... PRN PRN XX WOUND CARE; Start 07/22/17 at 03:30 Acetaminophen (Tylenol Tab) 650 mg Q4 PRN GTB ELEVATED TEMPERATURE Last administered on 08/06/17 09:10; Admin Dose 650 MG; Start 07/22/17 at 05:30 Baclofen (Lioresal) 20 mg TID GTB Last administered on 08/06/17 12:32; Admin Dose 20 MG; Start 07/22/17 at 09:00 Bisacodyl (Dulcolax Supp) 10 mg DAILY PRN [place] CONSTIPATION; Start 07/22/17 at 05:30 Docusate Sodium (Colace Liquid Cup) 100 mg BID GTB Last administered on 09:08; Admin Dose 100 MG; Start 07/22/17 at 09:00 Epoetin Andrey (Epogen (Esrd)) 15,000 units MoWeFr@17 SC Last administered on 16:40; Admin Dose 15,000 UNITS; Start 07/24/17 at 17:00 Magnesium Hydroxide (Milk Of Mag) 30 ml Q24H PRN PO CONSTIPATION; Start at 05:30 Magnesium Oxide (Mag-Ox 400) 800 mg DAILY GTB Last administered on 08/06/17 09 :10; Admin Dose 800 MG; Start 07/22/17 at 09:00 Metoclopramide HCl (Reglan) 10 mg BID GTB Last administered on 08/06/17 09:10 ; Admin Dose 10 MG; Start 07/22/17 at 09:00 Mineral Oil (Fleet Mineral Oil Enema) 133 ml DAILY PRN [place] CONSTIPATION; Start 07/22/17 at 05:30 Multivitamins Therapeutic (Theragran) 1 tab DAILY GTB Last administered on 08/06 09:10; Admin Dose 1 TAB; Start 07/22/17 at 09:00 Sucralfate (Carafate) 1 gm DAILY GTB Last administered on 08/06/17 09:12; Admin Dose 1 GM; Start 07/22/17 at 09:00 Tramadol HCl (Ultram) 100 mg DAILY GTB Last administered on 08/06/17 09:10; Admin Dose 100 MG; Start 07/22/17 at 09:00 Acetaminophen/ Hydrocodone Bitart ([place] (5/325)) 1 tab Q6H PRN GTB PAIN LEVEL 7-10; Start 07/22/17 at 05:30 Miscellaneous Information 1 ea NOTE XX ; Start 07/22/17 at 15:00 Glucose (Glutose) 15 gm Q15M PRN PO DECREASED GLUCOSE; Start 07/22/17 at 15:00 Glucose (Glutose) 22.5 gm Q15M PRN PO DECREASED GLUCOSE; Start 07/22/17 at 15: 00 Dextrose (D50w Syringe) 25 ml Q15M PRN IV DECREASED GLUCOSE; Start 07/22/17 at 15:00 Dextrose (D50w Syringe) 50 ml Q15M PRN IV DECREASED GLUCOSE; Start 07/22/17 at 15:00 Glucagon (Glucagen) 1 mg Q15M PRN IM DECREASED GLUCOSE; Start 07/22/17 at 15: 00 Glucose (Glutose) 15 gm Q15M PRN BUCCAL DECREASED GLUCOSE; Start 07/22/17 at 15:00 Linezolid (Zyvox) 600 mg BID PO Last administered on 08/06/17 09:10; Admin Dose 600 MG; Start 07/23/17 at 21:00 Fluconazole (Diflucan) 100 mg DAILY PO Last administered on 08/06/17 09:10; Admin Dose 100 MG; Start 07/25/17 at 09:00 Sodium Hypochlorite (Dakin'S (Dilute 1/40%)) 1 applic BID IRR Last administered on 08/06/17 09:12; Admin Dose 1 APPLIC; Start 07/26/17 at 21:00 Lansoprazole (Prevacid) 30 mg BID@06,18 PO Last administered on 08/06/17 05:24 ; Admin Dose 30 MG; Start 07/26/17 at 18:00 Zinc Sulfate (Zinc Sulfate) 220 mg DAILY GTB Last administered on 08/06/17 09: 12; Admin Dose 220 MG; Start 07/29/17 at 09:00 Ascorbic Acid (Vitamin C) 500 mg DAILY GTB Last administered on 08/06/17 09:10 ; Admin Dose 500 MG; Start 07/29/17 at 09:00 Collagenase (Santyl) 1 applic PRN PRN TOP PRN; Start 08/01/17 at 04:30 Collagenase 1 applic 1 applic DAILY TOP Last administered on 08/06/17 09:13; Admin Dose 1 APPLIC; Start 08/01/17 at 09:00 Colistimethate Sodium/Sodium Chloride (Coly-Mycin/NS) 100 ml @ 200 mls/hr Q24H IVPB Last administered on 08/06/17 09:08; Admin Dose 200 MLS/HR; Start at 09:00 Insulin Glargine (Lantus) 30 unit DAILY@20 SC Last administered on 08/05/17 23 :00; Admin Dose 30 UNIT; Start 08/04/17 at 20:00 Insulin Aspart (Novolog Insulin Pen) NOVOLOG *MILD* ALGORI... Q4 SC Last administered on 08/06/17 12:29; Admin Dose 2 UNIT; Start 08/04/17 at 17:00 Insulin Aspart (Novolog Insulin Pen) 7 unit Q4 SC Last administered on 12:30; Admin Dose 7 UNIT; Start 08/05/17 at 17:00 Metoprolol Tartrate (Lopressor) 25 mg BID PO Last administered on 08/06/17 09: 12; Admin Dose 25 MG; Start 08/05/17 at 21:00 HOUSTON JAQUEZ M.D. Aug 06, 2017 13:34
--- NOTE | 2017-08-06 14:16 | PN ---
Date/Time of Note Date/Time of Note DATE: 08/06/17 TIME: 14:13 Assessment/Plan Lines/Catheters IV Catheter Type (from Nrs): PICC Line Joel in Place (from Nrs): Yes Assessment/Plan Chief Complaint/Hosp Course 1. Multiple wound: 2/2 immobility; cultures noted: s/p debridement -debridement prn -local care-bid -frequent turning and off-loading -low air loss mattress -vitamin c -short term zinc -optimize nutrition 2. Hypochromic anemia: no acute bleed noted -monitor -transfuse as needed 3. UTI: cultures noted -abx per sensitivity -frequent bladder emptying/cath care 4. VDRF -pulm toilet -respiratory treatments 5. Fevers and tachycardia: likely 2/2 #3, 1 -as above -mri to evaluate for osteo Thank you. Patient seen and examined in collaboration with Dr. Hi High. Problems: Subjective 24 Hr Interval Summary Fevers today. Continues to have cloudy/sediment urine. Nonverbal indicators of pain not present. Appears comfortable on vent. Min drainage from wounds. Exam/Review of Systems Vital Signs Vitals Vital Signs Date Time Temp Pulse Resp B/P Pulse Ox O2 Delivery O2 Flow Rate FiO2 08/06/17 12:24 83 08/06/17 12:03 98.8 18 101/59 100 08/06/17 11:00 30 08/05/17 16:00 Mechanical Ventilator Intake and Output 08/05/17 08/05/17 08/06/17 15:00 23:00 07:00 Intake Total 100 ml 1050 ml 960 ml Output Total 700 ml 1300 ml Balance 100 ml 350 ml -340 ml Exam Free Text/Dictation Constitutional: alert, other (nonverbal) Head: atraumatic, normocephalic Eyes: nl lids, nl sclera, No icteric ENMT: mucosa pink and moist, nl nasal mucosa & septum Neck: non-tender, other (trach), supple Respiratory: other (vent), No labored breathing Cardiovascular: regular rate and rhythm: Gastrointestinal: non-tender, other (peg; umbilical hernia, rotund), soft Extremities: normal pulses, other (stiffness) Neurological: other (withdraws from painful stimuli) Skin: other (multiple wounds: packed, min drainage) Results Result Diagram: 08/06/17 1106 08/06/17 1106 SANFORD RODRIGUEZ NP Aug 06, 2017 14:16
--- NOTE | 2017-08-06 14:19 | PN ---
Date/Time of Note Date/Time of Note DATE: 08/06/17 TIME: 14:05 Assessment/Plan VTE Prophylaxis VTE Prophylaxis Intervention: SCD's Lines/Catheters IV Catheter Type (from Nrs): PICC Line Central line still needed: Yes Urinary Cath still in place: Yes Reason Cath still needed: urinary retention Assessment/Plan Assessment/Plan - Persistent Tachycardia-possibly sec to sepsis -per cardio consult - 2-D Echo done- fu --Diabetes mellitus - Glycemic control - change Novolog to 8 units SQ q 4hrs - continue Lantus at 30 units QPm -Sepsis secondary to UTI, possible pneumonia, infected wounds. Continue antibiotics per ID . Dr. Zavaleta is following in infection disease consultation. -Anemia of chronic disease, continue Epogen. Dr. Ruiz is following in gastroenterology consultation. -Advanced multiple sclerosis -Ventilator dependent respiratory failure. Dr. Blackwell is following in pulmonology consultation. -Dysphagia with PEG -Multiple decubitus ulcer, continue wound care per wound care consult. Dr. High is following in general surgery consultation. -Acute on chronic encephalopathy. Further recommendations based on clinical course. Plan of care discussed with Dr. Taylor. Subjective 24 Hr Interval Summary Free Text/Dictation febrile, tachycardia,hemoglobin and hematocrit stable. Blood sugar is in the above 200, Lantus to 3- dw staff Subjective hx not possible: pt non-verbal Constitutional: requiring IVF, requiring O2 Exam/Review of Systems Vital Signs Vitals Vital Signs Date Time Temp Pulse Resp B/P Pulse Ox O2 Delivery O2 Flow Rate FiO2 08/06/17 12:24 83 08/06/17 12:03 98.8 18 101/59 100 08/06/17 11:00 30 08/05/17 16:00 Mechanical Ventilator Intake and Output 08/05/17 08/05/17 08/06/17 15:00 23:00 07:00 Intake Total 100 ml 1050 ml 960 ml Output Total 700 ml 1300 ml Balance 100 ml 350 ml -340 ml Exam Respiratory: diminished breath sounds, normal air movement Cardiovascular: nl pulses, other (s1s2) Gastrointestinal: other, soft Musculoskeletal: muscle weakness Extremities: normal pulses Neurological: unresponsive Results Result Diagram: 08/06/17 1106 08/06/17 1106 Results 24 hrs Laboratory Tests Test 08/05/17 17:29 08/05/17 19:15 08/05/17 21:53 08/06/17 00:59 Bedside Glucose 253 H 230 H Troponin I < 0.012 < 0.012 Test 08/06/17 01:13 08/06/17 05:23 08/06/17 05:42 08/06/17 09:16 Bedside Glucose 200 200 211 Troponin I < 0.012 Test 08/06/17 11:06 08/06/17 12:28 White Blood Count 7.2 # Red Blood Count 3.13 L Hemoglobin 7.7 L Hematocrit 27.3 L Mean Corpuscular Volume 87.2 Mean Corpuscular Hemoglobin 24.6 L Mean Corpuscular Hemoglobin Concent 28.2 L Red Cell Distribution Width 19.4 H Platelet Count 290 Mean Platelet Volume 11.2 H Neutrophils % 67.5 Lymphocytes % 17.5 Monocytes % 7.0 Eosinophils % 6.3 Basophils % 0.3 Nucleated Red Blood Cells % 0.0 Neutrophils # 4.8 Lymphocytes # 1.3 Monocytes # 0.5 Eosinophils # 0.5 Basophils # 0.0 Nucleated Red Blood Cells # 0.0 Sodium Level 145 H Potassium Level 3.6 Chloride Level 110 Carbon Dioxide Level 22 Anion Gap 17 H Blood Urea Nitrogen 34 H Creatinine 1.62 H Glucose Level 199 Calcium Level 10.1 Troponin I < 0.012 Bedside Glucose 207 Medications Medications Current Medications Miscellaneous Information ([facility] This patient stern... PRN PRN XX WOUND CARE; Start 07/22/17 at 03:30 Acetaminophen (Tylenol Tab) 650 mg Q4 PRN GTB ELEVATED TEMPERATURE Last administered on 08/06/17 09:10; Admin Dose 650 MG; Start 07/22/17 at 05:30 Baclofen (Lioresal) 20 mg TID GTB Last administered on 08/06/17 12:32; Admin Dose 20 MG; Start 07/22/17 at 09:00 Bisacodyl (Dulcolax Supp) 10 mg DAILY PRN [place] CONSTIPATION; Start 07/22/17 at 05:30 Docusate Sodium (Colace Liquid Cup) 100 mg BID GTB Last administered on 09:08; Admin Dose 100 MG; Start 07/22/17 at 09:00 Epoetin Andrey (Epogen (Esrd)) 15,000 units MoWeFr@17 SC Last administered on 16:40; Admin Dose 15,000 UNITS; Start 07/24/17 at 17:00 Magnesium Hydroxide (Milk Of Mag) 30 ml Q24H PRN PO CONSTIPATION; Start at 05:30 Magnesium Oxide (Mag-Ox 400) 800 mg DAILY GTB Last administered on 08/06/17 09 :10; Admin Dose 800 MG; Start 07/22/17 at 09:00 Metoclopramide HCl (Reglan) 10 mg BID GTB Last administered on 08/06/17 09:10 ; Admin Dose 10 MG; Start 07/22/17 at 09:00 Mineral Oil (Fleet Mineral Oil Enema) 133 ml DAILY PRN [place] CONSTIPATION; Start 07/22/17 at 05:30 Multivitamins Therapeutic (Theragran) 1 tab DAILY GTB Last administered on 08/06 09:10; Admin Dose 1 TAB; Start 07/22/17 at 09:00 Sucralfate (Carafate) 1 gm DAILY GTB Last administered on 08/06/17 09:12; Admin Dose 1 GM; Start 07/22/17 at 09:00 Tramadol HCl (Ultram) 100 mg DAILY GTB Last administered on 08/06/17 09:10; Admin Dose 100 MG; Start 07/22/17 at 09:00 Acetaminophen/ Hydrocodone Bitart ([place] (5/325)) 1 tab Q6H PRN GTB PAIN LEVEL 7-10; Start 07/22/17 at 05:30 Miscellaneous Information 1 ea NOTE XX ; Start 07/22/17 at 15:00 Glucose (Glutose) 15 gm Q15M PRN PO DECREASED GLUCOSE; Start 07/22/17 at 15:00 Glucose (Glutose) 22.5 gm Q15M PRN PO DECREASED GLUCOSE; Start 07/22/17 at 15: 00 Dextrose (D50w Syringe) 25 ml Q15M PRN IV DECREASED GLUCOSE; Start 07/22/17 at 15:00 Dextrose (D50w Syringe) 50 ml Q15M PRN IV DECREASED GLUCOSE; Start 07/22/17 at 15:00 Glucagon (Glucagen) 1 mg Q15M PRN IM DECREASED GLUCOSE; Start 07/22/17 at 15: 00 Glucose (Glutose) 15 gm Q15M PRN BUCCAL DECREASED GLUCOSE; Start 07/22/17 at 15:00 Linezolid (Zyvox) 600 mg BID PO Last administered on 08/06/17 09:10; Admin Dose 600 MG; Start 07/23/17 at 21:00 Fluconazole (Diflucan) 100 mg DAILY PO Last administered on 08/06/17 09:10; Admin Dose 100 MG; Start 07/25/17 at 09:00 Sodium Hypochlorite (Dakin'S (Dilute 1/40%)) 1 applic BID IRR Last administered on 08/06/17 09:12; Admin Dose 1 APPLIC; Start 07/26/17 at 21:00 Lansoprazole (Prevacid) 30 mg BID@06,18 PO Last administered on 08/06/17 05:24 ; Admin Dose 30 MG; Start 07/26/17 at 18:00 Zinc Sulfate (Zinc Sulfate) 220 mg DAILY GTB Last administered on 08/06/17 09: 12; Admin Dose 220 MG; Start 07/29/17 at 09:00 Ascorbic Acid (Vitamin C) 500 mg DAILY GTB Last administered on 08/06/17 09:10 ; Admin Dose 500 MG; Start 07/29/17 at 09:00 Collagenase (Santyl) 1 applic PRN PRN TOP PRN; Start 08/01/17 at 04:30 Collagenase 1 applic 1 applic DAILY TOP Last administered on 08/06/17 09:13; Admin Dose 1 APPLIC; Start 08/01/17 at 09:00 Colistimethate Sodium/Sodium Chloride (Coly-Mycin/NS) 100 ml @ 200 mls/hr Q24H IVPB Last administered on 08/06/17 09:08; Admin Dose 200 MLS/HR; Start at 09:00 Insulin Glargine (Lantus) 30 unit DAILY@20 SC Last administered on 08/05/17 23 :00; Admin Dose 30 UNIT; Start 08/04/17 at 20:00 Insulin Aspart (Novolog Insulin Pen) NOVOLOG *MILD* ALGORI... Q4 SC Last administered on 08/06/17 12:29; Admin Dose 2 UNIT; Start 08/04/17 at 17:00 Insulin Aspart (Novolog Insulin Pen) 7 unit Q4 SC Last administered on 12:30; Admin Dose 7 UNIT; Start 08/05/17 at 17:00 Metoprolol Tartrate (Lopressor) 25 mg BID PO Last administered on 08/06/17 09: 12; Admin Dose 25 MG; Start 08/05/17 at 21:00 KATE LANDAVERDE Aug 06, 2017 14:16
--- NOTE | 2017-08-06 16:06 | CONS ---
Date/Time of Note Date/Time of Note DATE: 08/06/17 TIME: 16:05 Consult Date/Type/Reason Admit Date/Time Jul 21, 2017 at 23:24 Initial Consult Date 07/22/17 Type of Consultation: Pulm Ordering Provider: FLEX DENNISON NP Subjective No events. Stable on the vent. Objective Vital Signs Date Time Temp Pulse Resp B/P Pulse Ox O2 Delivery O2 Flow Rate FiO2 08/06/17 15:42 98.9 86 18 104/58 100 08/06/17 13:35 30 08/05/17 16:00 Mechanical Ventilator Intake and Output 08/05/17 08/05/17 08/06/17 15:00 23:00 07:00 Intake Total 100 ml 1050 ml 960 ml Output Total 700 ml 1300 ml Balance 100 ml 350 ml -340 ml Exam HEENT: Pupils equal, round, and reactive to light. Tracheostomy site clean and intact. CARDIAC: S1, S2, 1/6 systolic ejection murmur CHEST: Diminished air entry bilaterally. ABDOMEN: Mildly distended. Bowel sounds present no guarding or rebound EXTREMITIES: No cyanosis, clubbing edema +1 Results/Medications Result Diagram: 08/06/17 1106 08/06/17 1106 Results 24 hrs Laboratory Tests Test 08/05/17 17:29 08/05/17 19:15 08/05/17 21:53 08/06/17 00:59 Bedside Glucose 253 H 230 H Troponin I < 0.012 < 0.012 Test 08/06/17 01:13 08/06/17 05:23 08/06/17 05:42 08/06/17 09:16 Bedside Glucose 200 200 211 Troponin I < 0.012 Test 08/06/17 11:06 08/06/17 12:28 White Blood Count 7.2 # Red Blood Count 3.13 L Hemoglobin 7.7 L Hematocrit 27.3 L Mean Corpuscular Volume 87.2 Mean Corpuscular Hemoglobin 24.6 L Mean Corpuscular Hemoglobin Concent 28.2 L Red Cell Distribution Width 19.4 H Platelet Count 290 Mean Platelet Volume 11.2 H Neutrophils % 67.5 Lymphocytes % 17.5 Monocytes % 7.0 Eosinophils % 6.3 Basophils % 0.3 Nucleated Red Blood Cells % 0.0 Neutrophils # 4.8 Lymphocytes # 1.3 Monocytes # 0.5 Eosinophils # 0.5 Basophils # 0.0 Nucleated Red Blood Cells # 0.0 Sodium Level 145 H Potassium Level 3.6 Chloride Level 110 Carbon Dioxide Level 22 Anion Gap 17 H Blood Urea Nitrogen 34 H Creatinine 1.62 H Glucose Level 199 Calcium Level 10.1 Troponin I < 0.012 Bedside Glucose 207 Medications Current Medications Miscellaneous Information (Pending Santyl Order For Wound Care) This patient stern... PRN PRN XX WOUND CARE; Start 07/22/17 at 03:30 Acetaminophen (Tylenol Tab) 650 mg Q4 PRN GTB ELEVATED TEMPERATURE Last administered on 08/06/17 09:10; Admin Dose 650 MG; Start 07/22/17 at 05:30 Baclofen (Lioresal) 20 mg TID GTB Last administered on 08/06/17 12:32; Admin Dose 20 MG; Start 07/22/17 at 09:00 Bisacodyl (Dulcolax Supp) 10 mg DAILY PRN [place] CONSTIPATION; Start 07/22/17 at 05:30 Docusate Sodium (Colace Liquid Cup) 100 mg BID GTB Last administered on 09:08; Admin Dose 100 MG; Start 07/22/17 at 09:00 Epoetin Andrey (Epogen (Esrd)) 15,000 units MoWeFr@17 SC Last administered on 16:40; Admin Dose 15,000 UNITS; Start 07/24/17 at 17:00 Magnesium Hydroxide (Milk Of Mag) 30 ml Q24H PRN PO CONSTIPATION; Start at 05:30 Magnesium Oxide (Mag-Ox 400) 800 mg DAILY GTB Last administered on 08/06/17 09 :10; Admin Dose 800 MG; Start 07/22/17 at 09:00 Metoclopramide HCl (Reglan) 10 mg BID GTB Last administered on 08/06/17 09:10 ; Admin Dose 10 MG; Start 07/22/17 at 09:00 Mineral Oil (Fleet Mineral Oil Enema) 133 ml DAILY PRN [place] CONSTIPATION; Start 07/22/17 at 05:30 Multivitamins Therapeutic (Theragran) 1 tab DAILY GTB Last administered on 08/06 09:10; Admin Dose 1 TAB; Start 07/22/17 at 09:00 Sucralfate (Carafate) 1 gm DAILY GTB Last administered on 08/06/17 09:12; Admin Dose 1 GM; Start 07/22/17 at 09:00 Tramadol HCl (Ultram) 100 mg DAILY GTB Last administered on 08/06/17 09:10; Admin Dose 100 MG; Start 07/22/17 at 09:00 Acetaminophen/ Hydrocodone Bitart ([place] (5/325)) 1 tab Q6H PRN GTB PAIN LEVEL 7-10; Start 07/22/17 at 05:30 Miscellaneous Information 1 ea NOTE XX ; Start 07/22/17 at 15:00 Glucose (Glutose) 15 gm Q15M PRN PO DECREASED GLUCOSE; Start 07/22/17 at 15:00 Glucose (Glutose) 22.5 gm Q15M PRN PO DECREASED GLUCOSE; Start 07/22/17 at 15: 00 Dextrose (D50w Syringe) 25 ml Q15M PRN IV DECREASED GLUCOSE; Start 07/22/17 at 15:00 Dextrose (D50w Syringe) 50 ml Q15M PRN IV DECREASED GLUCOSE; Start 07/22/17 at 15:00 Glucagon (Glucagen) 1 mg Q15M PRN IM DECREASED GLUCOSE; Start 07/22/17 at 15: 00 Glucose (Glutose) 15 gm Q15M PRN BUCCAL DECREASED GLUCOSE; Start 07/22/17 at 15:00 Linezolid (Zyvox) 600 mg BID PO Last administered on 08/06/17 09:10; Admin Dose 600 MG; Start 07/23/17 at 21:00 Fluconazole (Diflucan) 100 mg DAILY PO Last administered on 08/06/17 09:10; Admin Dose 100 MG; Start 07/25/17 at 09:00 Sodium Hypochlorite (Dakin'S (Dilute 1/40%)) 1 applic BID IRR Last administered on 08/06/17 09:12; Admin Dose 1 APPLIC; Start 07/26/17 at 21:00 Lansoprazole (Prevacid) 30 mg BID@06,18 PO Last administered on 08/06/17 05:24 ; Admin Dose 30 MG; Start 07/26/17 at 18:00 Zinc Sulfate (Zinc Sulfate) 220 mg DAILY GTB Last administered on 08/06/17 09: 12; Admin Dose 220 MG; Start 07/29/17 at 09:00 Ascorbic Acid (Vitamin C) 500 mg DAILY GTB Last administered on 08/06/17 09:10 ; Admin Dose 500 MG; Start 07/29/17 at 09:00 Collagenase (Santyl) 1 applic PRN PRN TOP PRN; Start 08/01/17 at 04:30 Collagenase 1 applic 1 applic DAILY TOP Last administered on 08/06/17 09:13; Admin Dose 1 APPLIC; Start 08/01/17 at 09:00 Colistimethate Sodium/Sodium Chloride (Coly-Mycin/NS) 100 ml @ 200 mls/hr Q24H IVPB Last administered on 08/06/17 09:08; Admin Dose 200 MLS/HR; Start at 09:00 Insulin Glargine (Lantus) 30 unit DAILY@20 SC Last administered on 08/05/17 23 :00; Admin Dose 30 UNIT; Start 08/04/17 at 20:00 Insulin Aspart (Novolog Insulin Pen) NOVOLOG *MILD* ALGORI... Q4 SC Last administered on 08/06/17 12:29; Admin Dose 2 UNIT; Start 08/04/17 at 17:00 Metoprolol Tartrate (Lopressor) 25 mg BID PO Last administered on 08/06/17 09: 12; Admin Dose 25 MG; Start 08/05/17 at 21:00 Insulin Aspart (Novolog Insulin Pen) 8 unit Q4 SC ; Start 08/06/17 at 17:00 Assessment/Plan Chief Complaint/Hosp Course This is a 56-year-old female with history of VDRF, chronic encepalopathy, PEG, who was sent from [facility] for having a low hemoglobin and urosepsis Problems: Additional Assessment/Plan IMP: 1. Anemia 2. Urosepsis 3. VDRF 4. Encephalopathy 5. CKD RECS: 1. Vent support 2. BD's/CPT 3. Abx per ID 4. Transfuse prn XIN NEWBERRY MD Aug 06, 2017 16:06
--- NOTE | 2017-08-06 16:25 | RADRPT ---
Echocardiogram Report Patient Name: MALLIKA CID Gender: Female Date: 1960 Study Date: 06-Aug-2017 Vice President Of Communications: ANA Location: [id number] Ref. Physician: MICHAEL JAQUEZ Quality: Good Procedures: Transthoracic echocardiogram with complete 2D, M-Mode, and doppler examination. Indications: Tachycardia. 2D/M Mode Doppler Measurement Value Normal Ranges Measurement Value Normal Ranges AoR Diam MM 2.9 cm JOSIE Vmax 2.2 cm2 LA/Ao MM 1.0 JOSIE VTI 2.2 cm2 LA Dimen MM 2.9 cm AV Peak Alvaro 1.2 m/sec LVIDd 2D 4.6 3.5 - 5.6 cm AV Peak PG 6.0 mmHg LVIDs 2D 3.3 2.1 - 4.1 cm LVOT Peak Alvaro 1.0 m/sec LVPWd 2D 1.1 0.6 - 1.1 cm LVOT Peak PG 3.7 mmHg IVSd 2D 1.1 0.6 - 1.1 cm MV E Peak Alvaro 0.8 m/sec EDV 2D 95.8 cm3 MV A Peak Alvaro 0.8 m/sec ESV 2D 34.7 cm3 MV E/A 0.9 EF 2D 55.0 50.0 - 65.0 % MV Decel Time 220 msec LVOT Diam 1.9 cm MV Decel [place] 3 MV E/A 0.9 Findings Left Ventricle: Normal left ventricular systolic function. Normal left ventricular cavity size. Normal left ventricular wall thickness. Ejection fraction is visually estimated at 55 %. Right Ventricle: Normal right ventricular size. Normal right ventricular systolic function. Left Atrium: The left atrium is normal in size. Right Atrium: The right atrium is normal in size. Mitral Valve: Normal appearance and function of the mitral valve with trace physiologic regurgitation. Aortic Valve: Normal appearance of the aortic valve. No significant aortic stenosis or insufficiency. Tricuspid Valve: Normal appearance and function of the tricuspid valve with trace physiologic regurgitation. Unable to obtain RVSP due to minimal presence of tricuspid regurgitation. Pulmonic Valve: Pulmonic valve not well visualized. Pericardium: Normal pericardium with no significant pericardial effusion. Aorta: Normal aortic root. IVC: Normal size and no respiratory collapse consistent with elevated right atrial pressure. Conclusions 1.Normal left ventricular systolic function. Normal left ventricular cavity size. Normal left ventricular wall thickness. Ejection fraction is visually estimated at 55 %. 2.Normal right ventricular size. Normal right ventricular systolic function. 3.Normal appearance and function of the mitral valve with trace physiologic regurgitation. 4.Normal appearance of the aortic valve. No significant aortic stenosis or insufficiency. 5.Normal appearance and function of the tricuspid valve with trace physiologic regurgitation. Unable to obtain RVSP due to minimal presence of tricuspid regurgitation. 6.Normal pericardium with no significant pericardial effusion. Electronically Signed By: Michael Jaquez 06-Aug-2017 16:24:32 -0800 Patient Name: MALLIKA CID Study Date: 06-Aug-2017 [id number]
--- NOTE | 2017-08-06 17:34 | CONS ---
Date/Time of Note Date/Time of Note DATE: 08/06/17 TIME: 17:31 Assessment/Plan Assessment/Plan Chief Complaint/Hosp Course ID PROGRESS NOTE CURRENT ABX=> Coly-Mycin + Zyvox + s/p Diflucan 24H INTERVAL SUMMARY * FEVER THIS AM 102.+ => BCx not sent, WBC slightly up 7.2 (WNL) * 07/31/17 URINE CX: URINE CULTURE Final Organism 1 PSEUDOMONAS AERUGINOSA COLONY COUNT 10,000 - 20,000 CFU/ml P.AERUG M.I.C. RX --------- --- AMIKACIN 8 S AZTREONAM R CEFEPIME 16 I CEFTAZIDIME 16 I CIPROFLOXACIN >=4 R GENTAMICIN 4 S IMIPENEM >=16 R LEVOFLOXACIN >=8 R TOBRAMYCIN <=1 S PIPERACILLIN/TAZOBACTAM R PHYSICAL EXAMINATION: GENERAL: VSS, NAD HEENT: Unremarkable NECK: Supple, trach-> Secure to Vent with scant whitish secretions CHEST: Rise symmetrical, without dyspnea on observation HEART: Pulse RRR ABDOMEN: Soft, Peg EXTREMITIES: Wasted with trace edema. SKIN: With multiple unstageable decubiti. ID ASSESSMENT 56 yo F w/ Advanced multiple sclerosis, encephalopathy, Trach, Peg, functional quadriplegia admit with: 1. Severe sepsis with fevers on and off 2. 07/21/17 BCx (+) 1/2 bottles on admission => COAGULASE NEGATIVE STAPH 3. Complicated recurrent MDRO Pseudomonas (PSAR) early UTI w/low colony count < 10,000 4. HCAP -> CXR 07/28/17: Mild left basilar consolidation, unchanged. 5. Dysphagia-> PEG 6. Multiple infected wounds => Polymicrobial MDRO host 7. Acute renal failure on admission with renal function markedly improved. 8. Hx of diarrhea, hx of fecal impaction (- )MRSA Nares Screen (+) VRE stool colonization INVASIVES: Trach, peg, FC, PICC ABX ALLERGY: PCN, Cephalosporins, Fluoroquinolones, Vanco IV * Reported hx of allergy to Cephalosporins = tolerated Cefepime prior admission without rash noted = doubt true allergy. CURRENT ABX=> Coly-Mycin + Zyvox s/p Diflucan ID RECOMMENDATIONS 1. Continue current ABX & local wound care 2. IF spikes temp again would send BCx 3. 'Wound debridement PRN . Problems: Consultation Date/Type/Reason Admit Date/Time Jul 21, 2017 at 23:24 Initial Consult Date 07/26/17 Type of Consultation: ID Referring Provider: FLEX DENNISON NP Exam/Review of Systems Vital Signs Vitals Vital Signs Date Time Temp Pulse Resp B/P Pulse Ox O2 Delivery O2 Flow Rate FiO2 08/06/17 16:48 81 08/06/17 15:42 98.9 18 104/58 100 08/06/17 15:15 30 08/05/17 16:00 Mechanical Ventilator Intake and Output 08/05/17 08/05/17 08/06/17 15:00 23:00 07:00 Intake Total 100 ml 1050 ml 960 ml Output Total 700 ml 1300 ml Balance 100 ml 350 ml -340 ml Results Result Diagram: 08/06/17 1106 08/06/17 1106 Results 24 hrs Laboratory Tests Test 08/05/17 19:15 08/05/17 21:53 08/06/17 00:59 08/06/17 01:13 Troponin I < 0.012 < 0.012 Bedside Glucose 230 H 200 Test 08/06/17 05:23 08/06/17 05:42 08/06/17 09:16 08/06/17 11:06 Bedside Glucose 200 211 Troponin I < 0.012 < 0.012 White Blood Count 7.2 # Red Blood Count 3.13 L Hemoglobin 7.7 L Hematocrit 27.3 L Mean Corpuscular Volume 87.2 Mean Corpuscular Hemoglobin 24.6 L Mean Corpuscular Hemoglobin Concent 28.2 L Red Cell Distribution Width 19.4 H Platelet Count 290 Mean Platelet Volume 11.2 H Neutrophils % 67.5 Lymphocytes % 17.5 Monocytes % 7.0 Eosinophils % 6.3 Basophils % 0.3 Nucleated Red Blood Cells % 0.0 Neutrophils # 4.8 Lymphocytes # 1.3 Monocytes # 0.5 Eosinophils # 0.5 Basophils # 0.0 Nucleated Red Blood Cells # 0.0 Sodium Level 145 H Potassium Level 3.6 Chloride Level 110 Carbon Dioxide Level 22 Anion Gap 17 H Blood Urea Nitrogen 34 H Creatinine 1.62 H Glucose Level 199 Calcium Level 10.1 Test 08/06/17 12:28 Bedside Glucose 207 Medications Medications Current Medications Miscellaneous Information (Pending Santyl Order For Wound Care) This patient stern... PRN PRN XX WOUND CARE; Start 07/22/17 at 03:30 Acetaminophen (Tylenol Tab) 650 mg Q4 PRN GTB ELEVATED TEMPERATURE Last administered on 08/06/17 09:10; Admin Dose 650 MG; Start 07/22/17 at 05:30 Baclofen (Lioresal) 20 mg TID GTB Last administered on 08/06/17 12:32; Admin Dose 20 MG; Start 07/22/17 at 09:00 Bisacodyl (Dulcolax Supp) 10 mg DAILY PRN [place] CONSTIPATION; Start 07/22/17 at 05:30 Docusate Sodium (Colace Liquid Cup) 100 mg BID GTB Last administered on 09:08; Admin Dose 100 MG; Start 07/22/17 at 09:00 Epoetin Andrey (Epogen (Esrd)) 15,000 units MoWeFr@17 SC Last administered on 16:40; Admin Dose 15,000 UNITS; Start 07/24/17 at 17:00 Magnesium Hydroxide (Milk Of Mag) 30 ml Q24H PRN PO CONSTIPATION; Start at 05:30 Magnesium Oxide (Mag-Ox 400) 800 mg DAILY GTB Last administered on 08/06/17 09 :10; Admin Dose 800 MG; Start 07/22/17 at 09:00 Metoclopramide HCl (Reglan) 10 mg BID GTB Last administered on 08/06/17 09:10 ; Admin Dose 10 MG; Start 07/22/17 at 09:00 Mineral Oil (Fleet Mineral Oil Enema) 133 ml DAILY PRN [place] CONSTIPATION; Start 07/22/17 at 05:30 Multivitamins Therapeutic (Theragran) 1 tab DAILY GTB Last administered on 08/06 09:10; Admin Dose 1 TAB; Start 07/22/17 at 09:00 Sucralfate (Carafate) 1 gm DAILY GTB Last administered on 08/06/17 09:12; Admin Dose 1 GM; Start 07/22/17 at 09:00 Tramadol HCl (Ultram) 100 mg DAILY GTB Last administered on 08/06/17 09:10; Admin Dose 100 MG; Start 07/22/17 at 09:00 Acetaminophen/ Hydrocodone Bitart ([place] (5/325)) 1 tab Q6H PRN GTB PAIN LEVEL 7-10; Start 07/22/17 at 05:30 Miscellaneous Information 1 ea NOTE XX ; Start 07/22/17 at 15:00 Glucose (Glutose) 15 gm Q15M PRN PO DECREASED GLUCOSE; Start 07/22/17 at 15:00 Glucose (Glutose) 22.5 gm Q15M PRN PO DECREASED GLUCOSE; Start 07/22/17 at 15: 00 Dextrose (D50w Syringe) 25 ml Q15M PRN IV DECREASED GLUCOSE; Start 07/22/17 at 15:00 Dextrose (D50w Syringe) 50 ml Q15M PRN IV DECREASED GLUCOSE; Start 07/22/17 at 15:00 Glucagon (Glucagen) 1 mg Q15M PRN IM DECREASED GLUCOSE; Start 07/22/17 at 15: 00 Glucose (Glutose) 15 gm Q15M PRN BUCCAL DECREASED GLUCOSE; Start 07/22/17 at 15:00 Linezolid (Zyvox) 600 mg BID PO Last administered on 08/06/17 09:10; Admin Dose 600 MG; Start 07/23/17 at 21:00 Fluconazole (Diflucan) 100 mg DAILY PO Last administered on 08/06/17 09:10; Admin Dose 100 MG; Start 07/25/17 at 09:00 Sodium Hypochlorite (Dakin'S (Dilute 1/40%)) 1 applic BID IRR Last administered on 08/06/17 09:12; Admin Dose 1 APPLIC; Start 07/26/17 at 21:00 Lansoprazole (Prevacid) 30 mg BID@,18 PO Last administered on 08/06/17 05:24 ; Admin Dose 30 MG; Start 07/26/17 at 18:00 Zinc Sulfate (Zinc Sulfate) 220 mg DAILY GTB Last administered on 08/06/17 09: 12; Admin Dose 220 MG; Start 07/29/17 at 09:00 Ascorbic Acid (Vitamin C) 500 mg DAILY GTB Last administered on 08/06/17 09:10 ; Admin Dose 500 MG; Start 07/29/17 at 09:00 Collagenase (Santyl) 1 applic PRN PRN TOP PRN; Start 08/01/17 at 04:30 Collagenase 1 applic 1 applic DAILY TOP Last administered on 08/06/17 09:13; Admin Dose 1 APPLIC; Start 08/01/17 at 09:00 Colistimethate Sodium/Sodium Chloride (Coly-Mycin/NS) 100 ml @ 200 mls/hr Q24H IVPB Last administered on 08/06/17 09:08; Admin Dose 200 MLS/HR; Start at 09:00 Insulin Glargine (Lantus) 30 unit DAILY@20 SC Last administered on 08/05/17 23 :00; Admin Dose 30 UNIT; Start 08/04/17 at 20:00 Insulin Aspart (Novolog Insulin Pen) NOVOLOG *MILD* ALGORI... Q4 SC Last administered on 08/06/17 12:29; Admin Dose 2 UNIT; Start 08/04/17 at 17:00 Metoprolol Tartrate (Lopressor) 25 mg BID PO Last administered on 08/06/17 09: 12; Admin Dose 25 MG; Start 08/05/17 at 21:00 Insulin Aspart (Novolog Insulin Pen) 8 unit Q4 SC ; Start 08/06/17 at 17:00 REI BECK NP Aug 06, 2017 17:34
[2017-08-06] MEDS: INSULIN GLARGINE [LANtus] 3 ML PEN SC SCH (22:14)
--- NOTE | 2017-08-06 22:20 | CONS ---
Date/Time of Note Date/Time of Note DATE: 08/06/17 TIME: 22:19 Assessment/Plan Assessment/Plan Additional Assessment/Plan 1. Acute kidney injury due to ATN From sepsis + prerenal azotemia 2. Sepsis due to UTI 3. Chronic resp failure s/p Tracheostomy on ventilator 4/ Anemia of chronic disease 5/ HTN 6. UTI with Urine cx growing Gram negative rods Plan : s/p 1liter IVF Cr 1.62 continue Tube feeding as ordered IV abx colimycin and zyvox, ID following vent management as per pulmonary will follow up Consultation Date/Type/Reason Admit Date/Time Jul 21, 2017 at 23:24 Initial Consult Date 07/22/17 Type of Consultation: NEPHROLOGY Referring Provider: FLEX DENNISON NP 24 HR Interval Summary Free Text/Dictation s/p 1liter NS, Cr 1.62, BP stable Exam/Review of Systems Vital Signs Vitals Vital Signs Date Time Temp Pulse Resp B/P Pulse Ox O2 Delivery O2 Flow Rate FiO2 08/06/17 21:24 90 11 98 30 08/06/17 20:39 98.9 107/69 08/05/17 16:00 Mechanical Ventilator Intake and Output 08/05/17 08/05/17 08/06/17 15:00 23:00 07:00 Intake Total 100 ml 1050 ml 960 ml Output Total 700 ml 1300 ml Balance 100 ml 350 ml -340 ml Results Result Diagram: 08/06/17 1106 08/06/17 1106 Results 24 hrs Laboratory Tests Test 08/06/17 00:59 08/06/17 01:13 08/06/17 05:23 08/06/17 05:42 Troponin I < 0.012 < 0.012 Bedside Glucose 200 200 Test 08/06/17 09:16 08/06/17 11:06 08/06/17 12:28 08/06/17 17:25 Bedside Glucose 211 207 White Blood Count 7.2 # Red Blood Count 3.13 L Hemoglobin 7.7 L Hematocrit 27.3 L Mean Corpuscular Volume 87.2 Mean Corpuscular Hemoglobin 24.6 L Mean Corpuscular Hemoglobin Concent 28.2 L Red Cell Distribution Width 19.4 H Platelet Count 290 Mean Platelet Volume 11.2 H Neutrophils % 67.5 Lymphocytes % 17.5 Monocytes % 7.0 Eosinophils % 6.3 Basophils % 0.3 Nucleated Red Blood Cells % 0.0 Neutrophils # 4.8 Lymphocytes # 1.3 Monocytes # 0.5 Eosinophils # 0.5 Basophils # 0.0 Nucleated Red Blood Cells # 0.0 Sodium Level 145 H Potassium Level 3.6 Chloride Level 110 Carbon Dioxide Level 22 Anion Gap 17 H Blood Urea Nitrogen 34 H Creatinine 1.62 H Glucose Level 199 Calcium Level 10.1 Troponin I < 0.012 < 0.012 Test 08/06/17 17:35 08/06/17 20:56 Bedside Glucose 193 195 Medications Medications Current Medications Miscellaneous Information (Pending Santyl Order For Wound Care) This patient stern... PRN PRN XX WOUND CARE; Start 07/22/17 at 03:30 Acetaminophen (Tylenol Tab) 650 mg Q4 PRN GTB ELEVATED TEMPERATURE Last administered on 08/06/17 09:10; Admin Dose 650 MG; Start 07/22/17 at 05:30 Baclofen (Lioresal) 20 mg TID GTB Last administered on 08/06/17 21:01; Admin Dose 20 MG; Start 07/22/17 at 09:00 Bisacodyl (Dulcolax Supp) 10 mg DAILY PRN [place] CONSTIPATION; Start 07/22/17 at 05:30 Docusate Sodium (Colace Liquid Cup) 100 mg BID GTB Last administered on 21:01; Admin Dose 100 MG; Start 07/22/17 at 09:00 Epoetin Andrey (Epogen (Esrd)) 15,000 units MoWeFr@17 SC Last administered on 16:40; Admin Dose 15,000 UNITS; Start 07/24/17 at 17:00 Magnesium Hydroxide (Milk Of Mag) 30 ml Q24H PRN PO CONSTIPATION; Start at 05:30 Magnesium Oxide (Mag-Ox 400) 800 mg DAILY GTB Last administered on 08/06/17 09 :10; Admin Dose 800 MG; Start 07/22/17 at 09:00 Metoclopramide HCl (Reglan) 10 mg BID GTB Last administered on 08/06/17 21:01 ; Admin Dose 10 MG; Start 07/22/17 at 09:00 Mineral Oil (Fleet Mineral Oil Enema) 133 ml DAILY PRN [place] CONSTIPATION; Start 07/22/17 at 05:30 Multivitamins Therapeutic (Theragran) 1 tab DAILY GTB Last administered on 08/06 09:10; Admin Dose 1 TAB; Start 07/22/17 at 09:00 Sucralfate (Carafate) 1 gm DAILY GTB Last administered on 08/06/17 09:12; Admin Dose 1 GM; Start 07/22/17 at 09:00 Tramadol HCl (Ultram) 100 mg DAILY GTB Last administered on 08/06/17 09:10; Admin Dose 100 MG; Start 07/22/17 at 09:00 Acetaminophen/ Hydrocodone Bitart ([place] (5/325)) 1 tab Q6H PRN GTB PAIN LEVEL 7-10; Start 07/22/17 at 05:30 Miscellaneous Information 1 ea NOTE XX ; Start 07/22/17 at 15:00 Glucose (Glutose) 15 gm Q15M PRN PO DECREASED GLUCOSE; Start 07/22/17 at 15:00 Glucose (Glutose) 22.5 gm Q15M PRN PO DECREASED GLUCOSE; Start 07/22/17 at 15: 00 Dextrose (D50w Syringe) 25 ml Q15M PRN IV DECREASED GLUCOSE; Start 07/22/17 at 15:00 Dextrose (D50w Syringe) 50 ml Q15M PRN IV DECREASED GLUCOSE; Start 07/22/17 at 15:00 Glucagon (Glucagen) 1 mg Q15M PRN IM DECREASED GLUCOSE; Start 07/22/17 at 15: 00 Glucose (Glutose) 15 gm Q15M PRN BUCCAL DECREASED GLUCOSE; Start 07/22/17 at 15:00 Linezolid (Zyvox) 600 mg BID PO Last administered on 08/06/17 21:01; Admin Dose 600 MG; Start 07/23/17 at 21:00 Fluconazole (Diflucan) 100 mg DAILY PO Last administered on 08/06/17 09:10; Admin Dose 100 MG; Start 07/25/17 at 09:00 Sodium Hypochlorite (Dakin'S (Dilute 1/40%)) 1 applic BID IRR Last administered on 08/06/17 21:02; Admin Dose 1 APPLIC; Start 07/26/17 at 21:00 Lansoprazole (Prevacid) 30 mg BID@,18 PO Last administered on 08/06/17 17:35 ; Admin Dose 30 MG; Start 07/26/17 at 18:00 Zinc Sulfate (Zinc Sulfate) 220 mg DAILY GTB Last administered on 08/06/17 09: 12; Admin Dose 220 MG; Start 07/29/17 at 09:00 Ascorbic Acid (Vitamin C) 500 mg DAILY GTB Last administered on 08/06/17 09:10 ; Admin Dose 500 MG; Start 07/29/17 at 09:00 Collagenase (Santyl) 1 applic PRN PRN TOP PRN; Start 08/01/17 at 04:30 Collagenase 1 applic 1 applic DAILY TOP Last administered on 08/06/17 09:13; Admin Dose 1 APPLIC; Start 08/01/17 at 09:00 Colistimethate Sodium/Sodium Chloride (Coly-Mycin/NS) 100 ml @ 200 mls/hr Q24H IVPB Last administered on 08/06/17 09:08; Admin Dose 200 MLS/HR; Start at 09:00 Insulin Glargine (Lantus) 30 unit DAILY@20 SC Last administered on 08/06/17 22 :14; Admin Dose 30 UNIT; Start 08/04/17 at 20:00 Insulin Aspart (Novolog Insulin Pen) NOVOLOG *MILD* ALGORI... Q4 SC Last administered on 08/06/17 22:14; Admin Dose 2 UNIT; Start 08/04/17 at 17:00 Metoprolol Tartrate (Lopressor) 25 mg BID PO Last administered on 08/06/17 21: 02; Admin Dose 25 MG; Start 08/05/17 at 21:00 Insulin Aspart (Novolog Insulin Pen) 8 unit Q4 SC Last administered on 22:15; Admin Dose 8 UNIT; Start 08/06/17 at 17:00 LIZETTE ALEX MD Aug 06, 2017 22:20
[2017-08-07] VITALS (24 sets, daily range): BP systolic 96–104; BP diastolic 50–80; PULSE 90–115; RESP 11–20
[2017-08-07] MEDS: INSULIN ASPART [NOVOLOG] 3 ML PEN SC SCH ×10 (00:40→23:05)
[2017-08-07] MEDS: LANSOPRAZOLE 30 MG CAP PO SCH (05:42)
[2017-08-07 06:47] LABS: ABNORMAL IP MESSAGE 1; BASOPHILS % 0.3 % (0.0-2.0); EOSINOPHILS # 0.4 10^3/ul (0.0-0.5); EOSINOPHILS % 5.4 % (0.0-7.0); HEMATOCRIT 26.7 % (37.0-47.0); HEMOGLOBIN 7.6 g/dl (12.0-16.0); LYMPHOCYTES # 1.3 10^3/ul (0.8-2.9); LYMPHOCYTES % 19.5 % (15.0-51.0); MEAN CORPUSCULAR HEMOGLOBIN 24.6 pg (29.0-33.0); MEAN CORPUSCULAR HGB CONC 28.5 g/dl (32.0-37.0); MEAN CORPUSCULAR VOLUME 86.4 fl (82.0-101.0); MEAN PLATELET VOLUME 11.5 fl (7.4-10.4); MONOCYTE # 0.4 10^3/ul (0.3-0.9); MONOCYTES % 6.5 % (0.0-11.0); NEUTROPHIL # 4.4 10^3/ul (1.6-7.5); NEUTROPHILS % 66.9 % (39.0-77.0); PLATELET COUNT 282 10^3/UL (140-415); RED BLOOD COUNT 3.09 10^6/ul (4.20-5.40); RED CELL DISTRIBUTION WIDTH 19.1 % (11.5-14.5); WHITE BLOOD COUNT 6.6 10^3/ul (4.8-10.8)
[2017-08-07 07:08] LABS: POSITIVE DIFF @See below
[2017-08-07 07:31] LABS: CALCIUM 9.9 mg/dl (8.4-10.2); CREATININE 1.61 mg/dl (0.44-1.00); POTASSIUM 4.2 mmol/L (3.5-5.1)
--- NOTE | 2017-08-07 08:09 | CONS ---
DATE OF ADMISSION: 07/21/2017 DATE OF CONSULTATION: 08/05/2017 REASON FOR CONSULTATION: Persistent sinus tachycardia. HISTORY OF PRESENT ILLNESS: The patient is unable to give any history since she is trached and on v entilator. Hence, most of the history was obtained from review of medical record. Cardiology was c onsulted because of her persistent sinus tachycardia. PAST MEDICAL HISTORY: 1. Ventilator-dependent respiratory failure. 2. Urosepsis. 3. Encephalopathy. 4. Acute renal failure. 5. Anemia of chronic disease. 6. Hypertension. SOCIAL HISTORY: Unable to elicit. ALLERGIES: 1. CEPHALOSPORINS. 2. PENICILLIN. 3. LEVOFLOXACIN. 4. VANCOMYCIN. CURRENT MEDICATIONS: Include: 1. Colace. 2. Reglan. 3. Zyvox. 4. Prevacid. 5. Mag-Oxide. 6. Diflucan. 7. Insulin. 8. Epogen. 9. Baclofen. REVIEW OF SYSTEMS: Unremarkable except that mentioned in the HPI. PHYSICAL EXAMINATION: VITAL SIGNS: Temperature is 102.3, heart rate of 126, blood pressure 115/70 mmHg, breathing at 18 a nd saturating at 95% on the ventilator. GENERAL: Patient awake, in no apparent distress. NECK: Trach on ventilator. CARDIOVASCULAR: Tachycardic. No murmur, rub or gallop. CHEST: Mechanical breath sounds heard bilaterally. ABDOMEN: Soft. Bowel sounds are present. EXTREMITIES: No pedal edema. DIAGNOSTIC DATA: Cardiac telemetry shows persistent sinus tachycardia. LABORATORY DATA: WBC 5.9, hemoglobin 8.1, hematocrit 28.4 with a platelet of 296. Sodium 146, pota ssium 3.3, chloride 110, CO2 26, BUN 35, creatinine 1.64. ASSESSMENT AND PLAN: A 56-year-old female with: 1. Persistent sinus tachycardia. 2. High fevers. 3. Urosepsis. 4. Acute kidney injury. 5. Ventilator dependent respiratory failure. 6. Anemia of chronic disease. 7. Sinus tachycardia was most likely due to high fevers in addition to underlying infection. RECOMMENDATIONS: 1. Chest x-ray stat. 2. EKG stat. 3. Started on low-dose metoprolol. 4. Continue antibiotics. 5. Continue insulin sliding scale. 6. Continue vent support. 7. Keep magnesium more than 2 and potassium more than 4. 8. Continue GI and DVT prophylaxis. Dictated By: HOUSTON JAQUEZ MD, SR/HERI Conf#: [id number] DID#: [id number]
[2017-08-07] MEDS: METOPROLOL 25 MG TAB PO SCH ×2 (09:00→22:28)
[2017-08-07] MEDS: SUCRALFATE 1 GM TAB GTB SCH (09:53)
[2017-08-07] MEDS: MAGNESIUM OXIDE 400 MG TAB GTB SCH (09:53)
[2017-08-07] MEDS: ZYVOX 600 MG TAB PO SCH ×2 (09:54→22:28)
[2017-08-07] MEDS: ASCORBIC ACID 500 MG TAB GTB SCH (09:54)
[2017-08-07] MEDS: DOCUSATE SODIUM 10 MG/ML (10ML CUP) GTB SCH ×2 (09:54→22:27)
[2017-08-07] MEDS: MULTIVITAMINS THERAPEUTIC TAB GTB SCH (09:54)
[2017-08-07] MEDS: FLUCONAZOLE 100 MG TAB PO SCH (09:54)
[2017-08-07] MEDS: BACLOFEN 10 MG TAB GTB SCH ×3 (09:54→22:29)
[2017-08-07] MEDS: METOCLOPRAMIDE 10 MG TAB GTB SCH ×2 (09:54→22:28)
[2017-08-07] MEDS: ZINC SULFATE 220 MG CAP GTB SCH (09:55)
[2017-08-07] MEDS: SODIUM HYPOCHLORITE 1/40% 1L IRRIG IRR SCH ×2 (09:55→22:30)
[2017-08-07] MEDS: COLLAGENASE 30 GM TUBE TOP SCH (10:02)
[2017-08-07] MEDS: traMADol 50 MG TAB GTB SCH (10:16)
[2017-08-07] MEDS: COLISTIMETHATE 135 MG in SOD CHLORIDE 0.9% 100 ML IVPB SCH (10:16)
[2017-08-07] MEDS ORDERED: BARIUM SULF 2% 450 ML BTL (BERRY SMOOTHIE) PO SCH (10:30)
--- NOTE | 2017-08-07 10:44 | RADRPT ---
PROCEDURE: Renal US. CLINICAL INDICATION: Renal dysfunction. TECHNIQUE: Multiple sonographic images of the kidneys and urinary bladder were obtained. The imag es were reviewed on a PACS workstation. COMPARISON: CT scan of the abdomen and pelvis dated 12/15/2016. FINDINGS: The right kidney measures 10.7 x 5.7 cm. The left kidney measures 12.0 x 6.7 cm. There is no solid renal mass. There are benign right renal cysts with the largest measuring 2.8. There is no hydronephrosis. There are multiple bilateral renal calculi with the largest on the right measuring 2.4 cm and the la rgest on the left measuring 1.8 cm. Renal parenchymal thickness is normal bilaterally. Both kidneys are hyperechoic consistent with medical renal disease. The perirenal regions are normal with no fluid collection or mass. There is a Joel catheter in the bladder. IMPRESSION: 1. Benign right renal cysts. 2. Multiple bilateral large nonobstructing renal calculi. 3. Bilateral hyperechoic kidneys consistent with medical renal disease. 4. Joel catheter in the bladder. 5. Otherwise unremarkable study. RPTAT: QQ .Bryant Naik MD, Date Time Electronically viewed and signed by .Bryant Naik MD, on 08/07/2017 10:44 .R/
[2017-08-07] MEDS ORDERED: BARIUM SULF 2% 450 ML BTL (BERRY SMOOTHIE) PO ONE (11:00)
--- NOTE | 2017-08-07 12:18 | PN ---
Date/Time of Note Date/Time of Note DATE: 08/07/17 TIME: 12:10 Assessment/Plan Lines/Catheters IV Catheter Type (from Nrs): PICC Line Joel in Place (from Nrs): Yes Assessment/Plan Chief Complaint/Hosp Course 1. Multiple wound: 2/2 immobility; cultures noted: s/p debridement -debridement prn -local care-bid -frequent turning and off-loading -low air loss mattress -vitamin c -short term zinc -optimize nutrition 2. Hypochromic anemia: no acute bleed noted -monitor -transfuse as needed 3. UTI: cultures noted -abx per sensitivity -frequent bladder emptying/cath care 4. VDRF -pulm toilet -respiratory treatments 5. Fevers and tachycardia: likely 2/2 #3, 1 -as above -mri to evaluate for osteo-pending Thank you. Patient seen and examined in collaboration with Dr. Hi High. Problems: Subjective 24 Hr Interval Summary No fevers, but cont to have tachycardia. Appears comfortable on vent. Nonverbal indicators of pain not present. No congested cough, v/d, sz, rash. Wounds with min drainage. mri pending. Exam/Review of Systems Vital Signs Vitals Vital Signs Date Time Temp Pulse Resp B/P Pulse Ox O2 Delivery O2 Flow Rate FiO2 08/07/17 09:30 96 13 98 30 08/07/17 08:04 99.8 99/50 08/05/17 16:00 Mechanical Ventilator Intake and Output 08/06/17 08/06/17 08/07/17 15:00 23:00 07:00 Intake Total 1020 ml 1010 ml Output Total 950 ml 1100 ml Balance 70 ml -90 ml Exam Free Text/Dictation Constitutional: alert, other (nonverbal) Head: atraumatic, normocephalic Eyes: nl lids, nl sclera, No icteric ENMT: mucosa pink and moist, nl nasal mucosa & septum Neck: non-tender, other (trach), supple Respiratory: other (vent), No labored breathing Cardiovascular: regular rate and rhythm: Gastrointestinal: non-tender, other (peg; umbilical hernia, rotund), soft Extremities: normal pulses, other (stiffness) Neurological: other (withdraws from painful stimuli) Skin: other (multiple wounds: packed, min drainage) Results Result Diagram: 08/07/17 0607 08/07/17 0607 SANFORD RODRIGUEZ NP Aug 07, 2017 12:18
[2017-08-07] MEDS: ACETAMINOPHEN 325 MG TAB GTB PRN (12:40)
--- NOTE | 2017-08-07 14:06 | CONS ---
Date/Time of Note Date/Time of Note DATE: 08/07/17 TIME: 14:05 Consult Date/Type/Reason Admit Date/Time Jul 21, 2017 at 23:24 Initial Consult Date 07/22/17 Type of Consultation: Pulmonary Ordering Provider: FLEX DENNISON NP Subjective Patient comfortable no new events Objective Vital Signs Date Time Temp Pulse Resp B/P Pulse Ox O2 Delivery O2 Flow Rate FiO2 08/07/17 13:29 96 14 97 30 08/07/17 12:18 101.3 101/57 08/05/17 16:00 Mechanical Ventilator Intake and Output 08/06/17 08/06/17 08/07/17 15:00 23:00 07:00 Intake Total 1020 ml 1010 ml Output Total 950 ml 1100 ml Balance 70 ml -90 ml Results/Medications Result Diagram: 08/07/17 0607 08/07/17 0607 Results 24 hrs Laboratory Tests Test 08/06/17 17:25 08/06/17 17:35 08/06/17 20:56 08/07/17 00:32 Troponin I < 0.012 Bedside Glucose 193 195 171 Test 08/07/17 05:41 08/07/17 06:07 08/07/17 07:51 08/07/17 12:45 Bedside Glucose 230 H 242 H 252 H White Blood Count 6.6 Red Blood Count 3.09 L Hemoglobin 7.6 L Hematocrit 26.7 L Mean Corpuscular Volume 86.4 Mean Corpuscular Hemoglobin 24.6 L Mean Corpuscular Hemoglobin Concent 28.5 L Red Cell Distribution Width 19.1 H Platelet Count 282 Mean Platelet Volume 11.5 H Neutrophils % 66.9 Lymphocytes % 19.5 Monocytes % 6.5 Eosinophils % 5.4 Basophils % 0.3 Nucleated Red Blood Cells % 0.0 Neutrophils # 4.4 Lymphocytes # 1.3 Monocytes # 0.4 Eosinophils # 0.4 Basophils # 0.0 Nucleated Red Blood Cells # 0.0 Sodium Level 144 Potassium Level 4.2 Chloride Level 108 Carbon Dioxide Level 23 Anion Gap 17 H Blood Urea Nitrogen 39 H Creatinine 1.61 H Glucose Level 236 H Calcium Level 9.9 Troponin I < 0.012 Medications Current Medications Miscellaneous Information (Pending Santyl Order For Wound Care) This patient stern... PRN PRN XX WOUND CARE; Start 07/22/17 at 03:30 Acetaminophen (Tylenol Tab) 650 mg Q4 PRN GTB ELEVATED TEMPERATURE Last administered on 08/07/17 12:40; Admin Dose 650 MG; Start 07/22/17 at 05:30 Baclofen (Lioresal) 20 mg TID GTB Last administered on 08/07/17 12:40; Admin Dose 20 MG; Start 07/22/17 at 09:00 Bisacodyl (Dulcolax Supp) 10 mg DAILY PRN [place] CONSTIPATION; Start 07/22/17 at 05:30 Docusate Sodium (Colace Liquid Cup) 100 mg BID GTB Last administered on 09:54; Admin Dose 100 MG; Start 07/22/17 at 09:00 Epoetin Andrey (Epogen (Esrd)) 15,000 units MoWeFr@17 SC Last administered on 16:40; Admin Dose 15,000 UNITS; Start 07/24/17 at 17:00 Magnesium Hydroxide (Milk Of Mag) 30 ml Q24H PRN PO CONSTIPATION; Start at 05:30 Magnesium Oxide (Mag-Ox 400) 800 mg DAILY GTB Last administered on 08/07/17 09 :53; Admin Dose 800 MG; Start 07/22/17 at 09:00 Metoclopramide HCl (Reglan) 10 mg BID GTB Last administered on 08/07/17 09:54 ; Admin Dose 10 MG; Start 07/22/17 at 09:00 Mineral Oil (Fleet Mineral Oil Enema) 133 ml DAILY PRN [place] CONSTIPATION; Start 07/22/17 at 05:30 Multivitamins Therapeutic (Theragran) 1 tab DAILY GTB Last administered on 08/07 09:54; Admin Dose 1 TAB; Start 07/22/17 at 09:00 Sucralfate (Carafate) 1 gm DAILY GTB Last administered on 08/07/17 09:53; Admin Dose 1 GM; Start 07/22/17 at 09:00 Tramadol HCl (Ultram) 100 mg DAILY GTB Last administered on 08/07/17 10:16; Admin Dose 100 MG; Start 07/22/17 at 09:00 Acetaminophen/ Hydrocodone Bitart ([place] (5/325)) 1 tab Q6H PRN GTB PAIN LEVEL 7-10; Start 07/22/17 at 05:30 Miscellaneous Information 1 ea NOTE XX ; Start 07/22/17 at 15:00 Glucose (Glutose) 15 gm Q15M PRN PO DECREASED GLUCOSE; Start 07/22/17 at 15:00 Glucose (Glutose) 22.5 gm Q15M PRN PO DECREASED GLUCOSE; Start 07/22/17 at 15: 00 Dextrose (D50w Syringe) 25 ml Q15M PRN IV DECREASED GLUCOSE; Start 07/22/17 at 15:00 Dextrose (D50w Syringe) 50 ml Q15M PRN IV DECREASED GLUCOSE; Start 07/22/17 at 15:00 Glucagon (Glucagen) 1 mg Q15M PRN IM DECREASED GLUCOSE; Start 07/22/17 at 15: 00 Glucose (Glutose) 15 gm Q15M PRN BUCCAL DECREASED GLUCOSE; Start 07/22/17 at 15:00 Linezolid (Zyvox) 600 mg BID PO Last administered on 08/07/17 09:54; Admin Dose 600 MG; Start 07/23/17 at 21:00 Fluconazole (Diflucan) 100 mg DAILY PO Last administered on 08/07/17 09:54; Admin Dose 100 MG; Start 07/25/17 at 09:00 Sodium Hypochlorite (Dakin'S (Dilute 1/40%)) 1 applic BID IRR Last administered on 08/07/17 09:55; Admin Dose 1 APPLIC; Start 07/26/17 at 21:00 Lansoprazole (Prevacid) 30 mg BID@06,18 PO Last administered on 08/07/17 05:42 ; Admin Dose 30 MG; Start 07/26/17 at 18:00 Zinc Sulfate (Zinc Sulfate) 220 mg DAILY GTB Last administered on 08/07/17 09: 55; Admin Dose 220 MG; Start 07/29/17 at 09:00 Ascorbic Acid (Vitamin C) 500 mg DAILY GTB Last administered on 08/07/17 09:54 ; Admin Dose 500 MG; Start 07/29/17 at 09:00 Collagenase (Santyl) 1 applic PRN PRN TOP PRN; Start 08/01/17 at 04:30 Collagenase 1 applic 1 applic DAILY TOP Last administered on 08/07/17 10:02; Admin Dose 1 APPLIC; Start 08/01/17 at 09:00 Colistimethate Sodium/Sodium Chloride (Coly-Mycin/NS) 100 ml @ 200 mls/hr Q24H IVPB Last administered on 08/07/17 10:16; Admin Dose 200 MLS/HR; Start at 09:00 Insulin Glargine (Lantus) 30 unit DAILY@20 SC Last administered on 08/06/17 22 :14; Admin Dose 30 UNIT; Start 08/04/17 at 20:00 Insulin Aspart (Novolog Insulin Pen) NOVOLOG *MILD* [place]I... Q4 SC Last administered on 08/07/17 12:50; Admin Dose 3 UNIT; Start 08/04/17 at 17:00 Metoprolol Tartrate (Lopressor) 25 mg BID PO Last administered on 08/06/17 21: 02; Admin Dose 25 MG; Start 08/05/17 at 21:00 Insulin Aspart (Novolog Insulin Pen) 8 unit Q4 SC Last administered on 12:51; Admin Dose 8 UNIT; Start 08/06/17 at 17:00 Assessment/Plan Chief Complaint/Hosp Course Additional Assessment/Plan IMP: 1. Anemia--workup in place. 2. Urosepsis 3. VDRF 4. Encephalopathy RECS: 1. Vent support 2. BD's/CPT 3. Abx per ID 4. GIB w/u per GI DC planning okay from pulmonary standpoint Problems: ULYSSES FORRESTER MD[facility] Aug 07, 2017 14:06
--- NOTE | 2017-08-07 16:19 | PN ---
Date/Time of Note Date/Time of Note DATE: 08/07/17 TIME: 16:12 Assessment/Plan VTE Prophylaxis VTE Prophylaxis Intervention: SCD's Lines/Catheters IV Catheter Type (from Nrs): PICC Line Central line still needed: Yes Urinary Cath still in place: Yes Reason Cath still needed: urinary retention Assessment/Plan Chief Complaint/Hosp Course Patient continues to spike fever, elevated blood sugar will increase Lantus, continue NovoLog. Assessment/Plan -Sepsis secondary to UTI, possible pneumonia, infected wounds. Continue antibiotics per ID . Dr. Zavaleta is following in infection disease consultation. -Anemia of chronic disease, continue Epogen. Dr. Ruiz is following in gastroenterology consultation. -Diabetes mellitus, continue Lantus and NovoLog per sliding scale with Accu- Chek every 4 hours. -Advanced multiple sclerosis -Ventilator dependent respiratory failure. Dr. Blackwell is following in pulmonology consultation. -Dysphagia with PEG -Multiple decubitus ulcer, continue wound care per wound care consult. Status post sacral wound debridement on 08/04. Dr. High is following in general surgery consultation. -Acute on chronic encephalopathy. Further recommendations based on clinical course. Plan of care discussed with Dr. Taylor. Problems: Exam/Review of Systems Vital Signs Vitals Vital Signs Date Time Temp Pulse Resp B/P Pulse Ox O2 Delivery O2 Flow Rate FiO2 08/07/17 15:40 98 14 98 30 08/07/17 15:13 98.3 101/59 08/05/17 16:00 Mechanical Ventilator Intake and Output 08/06/17 08/06/17 08/07/17 15:00 23:00 07:00 Intake Total 1020 ml 1010 ml Output Total 950 ml 1100 ml Balance 70 ml -90 ml Exam Constitutional: non-verbal Neck: other (Tracheostomy) Respiratory: diminished breath sounds Cardiovascular: nl pulses Gastrointestinal: non-tender, other (G-tube), soft Musculoskeletal: muscle weakness Neurological: confused Skin: other (Multiple wounds) Results Result Diagram: 08/07/17 0607 08/07/17 0607 Results 24 hrs Laboratory Tests Test 08/06/17 17:25 08/06/17 17:35 08/06/17 20:56 08/07/17 00:32 Troponin I < 0.012 Bedside Glucose 193 195 171 Test 08/07/17 05:41 08/07/17 06:07 08/07/17 07:51 08/07/17 12:45 Bedside Glucose 230 H 242 H 252 H White Blood Count 6.6 Red Blood Count 3.09 L Hemoglobin 7.6 L Hematocrit 26.7 L Mean Corpuscular Volume 86.4 Mean Corpuscular Hemoglobin 24.6 L Mean Corpuscular Hemoglobin Concent 28.5 L Red Cell Distribution Width 19.1 H Platelet Count 282 Mean Platelet Volume 11.5 H Neutrophils % 66.9 Lymphocytes % 19.5 Monocytes % 6.5 Eosinophils % 5.4 Basophils % 0.3 Nucleated Red Blood Cells % 0.0 Neutrophils # 4.4 Lymphocytes # 1.3 Monocytes # 0.4 Eosinophils # 0.4 Basophils # 0.0 Nucleated Red Blood Cells # 0.0 Sodium Level 144 Potassium Level 4.2 Chloride Level 108 Carbon Dioxide Level 23 Anion Gap 17 H Blood Urea Nitrogen 39 H Creatinine 1.61 H Glucose Level 236 H Calcium Level 9.9 Troponin I < 0.012 Medications Medications Current Medications Miscellaneous Information ([facility] This patient stern... PRN PRN XX WOUND CARE; Start 07/22/17 at 03:30 Acetaminophen (Tylenol Tab) 650 mg Q4 PRN GTB ELEVATED TEMPERATURE Last administered on 08/07/17 12:40; Admin Dose 650 MG; Start 07/22/17 at 05:30 Baclofen (Lioresal) 20 mg TID GTB Last administered on 08/07/17 12:40; Admin Dose 20 MG; Start 07/22/17 at 09:00 Bisacodyl (Dulcolax Supp) 10 mg DAILY PRN [place] CONSTIPATION; Start 07/22/17 at 05:30 Docusate Sodium (Colace Liquid Cup) 100 mg BID GTB Last administered on 09:54; Admin Dose 100 MG; Start 07/22/17 at 09:00 Epoetin Andrey (Epogen (Esrd)) 15,000 units MoWeFr@17 SC Last administered on 16:40; Admin Dose 15,000 UNITS; Start 07/24/17 at 17:00 Magnesium Hydroxide (Milk Of Mag) 30 ml Q24H PRN PO CONSTIPATION; Start at 05:30 Magnesium Oxide (Mag-Ox 400) 800 mg DAILY GTB Last administered on 08/07/17 09 :53; Admin Dose 800 MG; Start 07/22/17 at 09:00 Metoclopramide HCl (Reglan) 10 mg BID GTB Last administered on 08/07/17 09:54 ; Admin Dose 10 MG; Start 07/22/17 at 09:00 Mineral Oil (Fleet Mineral Oil Enema) 133 ml DAILY PRN [place] CONSTIPATION; Start 07/22/17 at 05:30 Multivitamins Therapeutic (Theragran) 1 tab DAILY GTB Last administered on 08/07 09:54; Admin Dose 1 TAB; Start 07/22/17 at 09:00 Sucralfate (Carafate) 1 gm DAILY GTB Last administered on 08/07/17 09:53; Admin Dose 1 GM; Start 07/22/17 at 09:00 Tramadol HCl (Ultram) 100 mg DAILY GTB Last administered on 08/07/17 10:16; Admin Dose 100 MG; Start 07/22/17 at 09:00 Acetaminophen/ Hydrocodone Bitart ([place] (5/325)) 1 tab Q6H PRN GTB PAIN LEVEL 7-10; Start 07/22/17 at 05:30 Miscellaneous Information 1 ea NOTE XX ; Start 07/22/17 at 15:00 Glucose (Glutose) 15 gm Q15M PRN PO DECREASED GLUCOSE; Start 07/22/17 at 15:00 Glucose (Glutose) 22.5 gm Q15M PRN PO DECREASED GLUCOSE; Start 07/22/17 at 15: 00 Dextrose (D50w Syringe) 25 ml Q15M PRN IV DECREASED GLUCOSE; Start 07/22/17 at 15:00 Dextrose (D50w Syringe) 50 ml Q15M PRN IV DECREASED GLUCOSE; Start 07/22/17 at 15:00 Glucagon (Glucagen) 1 mg Q15M PRN IM DECREASED GLUCOSE; Start 07/22/17 at 15: 00 Glucose (Glutose) 15 gm Q15M PRN BUCCAL DECREASED GLUCOSE; Start 07/22/17 at 15:00 Linezolid (Zyvox) 600 mg BID PO Last administered on 08/07/17 09:54; Admin Dose 600 MG; Start 07/23/17 at 21:00 Fluconazole (Diflucan) 100 mg DAILY PO Last administered on 08/07/17 09:54; Admin Dose 100 MG; Start 07/25/17 at 09:00 Sodium Hypochlorite (Dakin'S (Dilute 1/40%)) 1 applic BID IRR Last administered on 08/07/17 09:55; Admin Dose 1 APPLIC; Start 07/26/17 at 21:00 Lansoprazole (Prevacid) 30 mg BID@06,18 PO Last administered on 08/07/17 05:42 ; Admin Dose 30 MG; Start 07/26/17 at 18:00 Zinc Sulfate (Zinc Sulfate) 220 mg DAILY GTB Last administered on 08/07/17 09: 55; Admin Dose 220 MG; Start 07/29/17 at 09:00 Ascorbic Acid (Vitamin C) 500 mg DAILY GTB Last administered on 08/07/17 09:54 ; Admin Dose 500 MG; Start 07/29/17 at 09:00 Collagenase (Santyl) 1 applic PRN PRN TOP PRN; Start 08/01/17 at 04:30 Collagenase 1 applic 1 applic DAILY TOP Last administered on 08/07/17 10:02; Admin Dose 1 APPLIC; Start 08/01/17 at 09:00 Colistimethate Sodium/Sodium Chloride (Coly-Mycin/NS) 100 ml @ 200 mls/hr Q24H IVPB Last administered on 08/07/17 10:16; Admin Dose 200 MLS/HR; Start at 09:00 Insulin Glargine (Lantus) 30 unit DAILY@20 SC Last administered on 08/06/17 22 :14; Admin Dose 30 UNIT; Start 08/04/17 at 20:00 Insulin Aspart (Novolog Insulin Pen) NOVOLOG *MILD* ALGORI... Q4 SC Last administered on 08/07/17 12:50; Admin Dose 3 UNIT; Start 08/04/17 at 17:00 Metoprolol Tartrate (Lopressor) 25 mg BID PO Last administered on 08/06/17 21: 02; Admin Dose 25 MG; Start 08/05/17 at 21:00 Insulin Aspart (Novolog Insulin Pen) 8 unit Q4 SC Last administered on 12:51; Admin Dose 8 UNIT; Start 08/06/17 at 17:00 ALIZA ANDRADE Aug 07, 2017 16:18
[2017-08-07] MEDS: EPOETIN 10000 UNITS/1 ML INJ (ESRD) SC SCH (17:00)
[2017-08-07] MEDS ORDERED: INSULIN GLARGINE [LANtus] 3 ML PEN SC SCH (20:00)
--- NOTE | 2017-08-07 22:40 | CONS ---
Date/Time of Note Date/Time of Note DATE: 08/07/17 TIME: 22:37 Assessment/Plan Assessment/Plan Additional Assessment/Plan 1. Acute kidney injury due to ATN From sepsis + prerenal azotemia 2. Sepsis due to UTI 3. Chronic resp failure s/p Tracheostomy on ventilator 4/ Anemia of chronic disease 5/ HTN 6. UTI with Urine cx growing Gram negative rods Plan : s/p 1liter IVF Cr 1.62 continue Tube feeding as ordered IV abx colimycin and PO zyvox, - also on PO Fluconazole- ID following, Urine cx grew Pseudomonas vent management as per pulmonary will follow up Consultation Date/Type/Reason Admit Date/Time Jul 21, 2017 at 23:24 Initial Consult Date 07/22/17 Type of Consultation: NEPHROLOGY Referring Provider: FLEX DENNISON NP 24 HR Interval Summary Free Text/Dictation Cr bumped to 1.6, Urien cx grew pseudomonas Exam/Review of Systems Vital Signs Vitals Vital Signs Date Time Temp Pulse Resp B/P Pulse Ox O2 Delivery O2 Flow Rate FiO2 08/07/17 20:03 95 08/07/17 20:00 98.1 20 104/80 100 08/07/17 15:40 30 08/05/17 16:00 Mechanical Ventilator Intake and Output 08/06/17 08/06/17 08/07/17 15:00 23:00 07:00 Intake Total 1020 ml 1010 ml Output Total 950 ml 1100 ml Balance 70 ml -90 ml Exam Constitutional: non-verbal Head: normocephalic Eyes: other ENMT: other (+ tracheostomy secured ) Neck: non-tender, supple Respiratory: clear to auscultation, crackles/rales, diminished breath sounds Cardiovascular: nl pulses, regular rate and rhythm Gastrointestinal: non-tender, soft Musculoskeletal: other (wated LE ) Skin: other (Unstagable multiple decubitus ) Results Result Diagram: 08/07/17 0607 08/07/17 0607 Results 24 hrs Laboratory Tests Test 08/07/17 00:32 08/07/17 05:41 08/07/17 06:07 08/07/17 07:51 Bedside Glucose 171 230 H 242 H White Blood Count 6.6 Red Blood Count 3.09 L Hemoglobin 7.6 L Hematocrit 26.7 L Mean Corpuscular Volume 86.4 Mean Corpuscular Hemoglobin 24.6 L Mean Corpuscular Hemoglobin Concent 28.5 L Red Cell Distribution Width 19.1 H Platelet Count 282 Mean Platelet Volume 11.5 H Neutrophils % 66.9 Lymphocytes % 19.5 Monocytes % 6.5 Eosinophils % 5.4 Basophils % 0.3 Nucleated Red Blood Cells % 0.0 Neutrophils # 4.4 Lymphocytes # 1.3 Monocytes # 0.4 Eosinophils # 0.4 Basophils # 0.0 Nucleated Red Blood Cells # 0.0 Sodium Level 144 Potassium Level 4.2 Chloride Level 108 Carbon Dioxide Level 23 Anion Gap 17 H Blood Urea Nitrogen 39 H Creatinine 1.61 H Glucose Level 236 H Calcium Level 9.9 Troponin I < 0.012 Test 08/07/17 12:45 08/07/17 17:35 Bedside Glucose 252 H 192 Medications Medications Current Medications Miscellaneous Information (Pending [facility] Order For Wound Care) This patient stern... PRN PRN XX WOUND CARE; Start 07/22/17 at 03:30 Acetaminophen (Tylenol Tab) 650 mg Q4 PRN GTB ELEVATED TEMPERATURE Last administered on 08/07/17 12:40; Admin Dose 650 MG; Start 07/22/17 at 05:30 Baclofen (Lioresal) 20 mg TID GTB Last administered on 08/07/17 22:29; Admin Dose 20 MG; Start 07/22/17 at 09:00 Bisacodyl (Dulcolax Supp) 10 mg DAILY PRN [place] CONSTIPATION; Start 07/22/17 at 05:30 Docusate Sodium (Colace Liquid Cup) 100 mg BID GTB Last administered on 22:27; Admin Dose 100 MG; Start 07/22/17 at 09:00 Epoetin Andrey (Epogen (Esrd)) 15,000 units MoWeFr@17 SC Last administered on 16:40; Admin Dose 15,000 UNITS; Start 07/24/17 at 17:00 Magnesium Hydroxide (Milk Of Mag) 30 ml Q24H PRN PO CONSTIPATION; Start at 05:30 Magnesium Oxide (Mag-Ox 400) 800 mg DAILY GTB Last administered on 08/07/17 09 :53; Admin Dose 800 MG; Start 07/22/17 at 09:00 Metoclopramide HCl (Reglan) 10 mg BID GTB Last administered on 08/07/17 22:28 ; Admin Dose 10 MG; Start 07/22/17 at 09:00 Mineral Oil (Fleet Mineral Oil Enema) 133 ml DAILY PRN [place] CONSTIPATION; Start 07/22/17 at 05:30 Multivitamins Therapeutic (Theragran) 1 tab DAILY GTB Last administered on 08/07 09:54; Admin Dose 1 TAB; Start 07/22/17 at 09:00 Sucralfate (Carafate) 1 gm DAILY GTB Last administered on 08/07/17 09:53; Admin Dose 1 GM; Start 07/22/17 at 09:00 Tramadol HCl (Ultram) 100 mg DAILY GTB Last administered on 08/07/17 10:16; Admin Dose 100 MG; Start 07/22/17 at 09:00 Acetaminophen/ Hydrocodone Bitart ([place] (5/325)) 1 tab Q6H PRN GTB PAIN LEVEL 7-10; Start 07/22/17 at 05:30 Miscellaneous Information 1 ea NOTE XX ; Start 07/22/17 at 15:00 Glucose (Glutose) 15 gm Q15M PRN PO DECREASED GLUCOSE; Start 07/22/17 at 15:00 Glucose (Glutose) 22.5 gm Q15M PRN PO DECREASED GLUCOSE; Start 07/22/17 at 15: 00 Dextrose (D50w Syringe) 25 ml Q15M PRN IV DECREASED GLUCOSE; Start 07/22/17 at 15:00 Dextrose (D50w Syringe) 50 ml Q15M PRN IV DECREASED GLUCOSE; Start 07/22/17 at 15:00 Glucagon (Glucagen) 1 mg Q15M PRN IM DECREASED GLUCOSE; Start 07/22/17 at 15: 00 Glucose (Glutose) 15 gm Q15M PRN BUCCAL DECREASED GLUCOSE; Start 07/22/17 at 15:00 Linezolid (Zyvox) 600 mg BID PO Last administered on 08/07/17 22:28; Admin Dose 600 MG; Start 07/23/17 at 21:00 Fluconazole (Diflucan) 100 mg DAILY PO Last administered on 08/07/17 09:54; Admin Dose 100 MG; Start 07/25/17 at 09:00 Sodium Hypochlorite (Dakin'S (Dilute 1/40%)) 1 applic BID IRR Last administered on 08/07/17 22:30; Admin Dose 1 APPLIC; Start 07/26/17 at 21:00 Lansoprazole (Prevacid) 30 mg BID@06,18 PO Last administered on 08/07/17 05:42 ; Admin Dose 30 MG; Start 07/26/17 at 18:00 Zinc Sulfate (Zinc Sulfate) 220 mg DAILY GTB Last administered on 08/07/17 09: 55; Admin Dose 220 MG; Start 07/29/17 at 09:00 Ascorbic Acid (Vitamin C) 500 mg DAILY GTB Last administered on 08/07/17 09:54 ; Admin Dose 500 MG; Start 07/29/17 at 09:00 Collagenase (Santyl) 1 applic PRN PRN TOP PRN; Start 08/01/17 at 04:30 Collagenase 1 applic 1 applic DAILY TOP Last administered on 08/07/17 10:02; Admin Dose 1 APPLIC; Start 08/01/17 at 09:00 Colistimethate Sodium/Sodium Chloride (Coly-Mycin/NS) 100 ml @ 200 mls/hr Q24H IVPB Last administered on 08/07/17 10:16; Admin Dose 200 MLS/HR; Start at 09:00 Insulin Aspart (Novolog Insulin Pen) NOVOLOG *MILD* ALGORI... Q4 SC Last administered on 08/07/17 12:50; Admin Dose 3 UNIT; Start 08/04/17 at 17:00 Metoprolol Tartrate (Lopressor) 25 mg BID PO Last administered on 08/07/17 22: 28; Admin Dose 25 MG; Start 08/05/17 at 21:00 Insulin Aspart (Novolog Insulin Pen) 8 unit Q4 SC Last administered on 12:51; Admin Dose 8 UNIT; Start 08/06/17 at 17:00 Insulin Glargine (Lantus) 36 unit DAILY@20 SC ; Start 08/07/17 at 20:00 LIZETTE ALEX MD Aug 07, 2017 22:40
--- NOTE | 2017-08-07 23:55 | CONS ---
Date/Time of Note Date/Time of Note DATE: 08/07/17 TIME: 23:51 Assessment/Plan Assessment/Plan Chief Complaint/Hosp Course 1. Sinus tachycardia-overall improved on BB/NL EF by echo 2. High fevers. 3. Urosepsis. 4. Acute kidney injury. 5. Ventilator dependent respiratory failure. 6. Anemia of chronic disease. 7.DM Recc: -Tele -Continue abx's and f/u cx data -Continue BB -check TSH -Follow volume status -Follow BS closely Problems: Consultation Date/Type/Reason Admit Date/Time Jul 21, 2017 at 23:24 Initial Consult Date 07/26/17 Type of Consultation: cardiology Reason for Consultation Tachycardia Referring Provider: FLEX DENNISON [employer] Exam/Review of Systems Vital Signs Vitals Vital Signs Date Time Temp Pulse Resp B/P Pulse Ox O2 Delivery O2 Flow Rate FiO2 08/07/17 23:17 99.0 88 12 101/59 99 08/07/17 23:05 30 08/05/17 16:00 Mechanical Ventilator Intake and Output 08/06/17 08/06/17 08/07/17 15:00 23:00 07:00 Intake Total 1020 ml 1010 ml Output Total 950 ml 1100 ml Balance 70 ml -90 ml Exam Review of Systems: CONSTITUTIONAL: No fevers, chills. PULMONARY: trached CARDIOVASCULAR: No chest pain/palpitations GASTROINTESTINAL: No nausea/vomiting. GENITOURINARY: No hematuria/dysuria. MUSCULOSKELETAL: No myagias/arthalgias. PSYCHIATRIC: The patient denies depression. NEUROLOGIC: No weakness Constitutional: other (sleeping) Psych: no complaints Head: normocephalic ENMT: mucosa pink and moist Neck: jvd (9 cm water), supple Respiratory: other (upper aiway rhonchi) Cardiovascular: regular rate and rhythm Gastrointestinal: non-tender, soft Musculoskeletal: muscle weakness (mild generalized) Extremities: edema (none) Neurological: other (No focal deficits) Results Result Diagram: 08/07/17 0607 08/07/17 0607 Results 24 hrs Laboratory Tests Test 08/07/17 00:32 08/07/17 05:41 08/07/17 06:07 08/07/17 07:51 Bedside Glucose 171 230 H 242 H White Blood Count 6.6 Red Blood Count 3.09 L Hemoglobin 7.6 L Hematocrit 26.7 L Mean Corpuscular Volume 86.4 Mean Corpuscular Hemoglobin 24.6 L Mean Corpuscular Hemoglobin Concent 28.5 L Red Cell Distribution Width 19.1 H Platelet Count 282 Mean Platelet Volume 11.5 H Neutrophils % 66.9 Lymphocytes % 19.5 Monocytes % 6.5 Eosinophils % 5.4 Basophils % 0.3 Nucleated Red Blood Cells % 0.0 Neutrophils # 4.4 Lymphocytes # 1.3 Monocytes # 0.4 Eosinophils # 0.4 Basophils # 0.0 Nucleated Red Blood Cells # 0.0 Sodium Level 144 Potassium Level 4.2 Chloride Level 108 Carbon Dioxide Level 23 Anion Gap 17 H Blood Urea Nitrogen 39 H Creatinine 1.61 H Glucose Level 236 H Calcium Level 9.9 Troponin I < 0.012 Test 08/07/17 12:45 08/07/17 17:35 08/07/17 22:39 Bedside Glucose 252 H 192 235 H Medications Medications Current Medications Miscellaneous Information (Pending [facility] For Wound Care) This patient stern... PRN PRN XX WOUND CARE; Start 07/22/17 at 03:30 Acetaminophen (Tylenol Tab) 650 mg Q4 PRN GTB ELEVATED TEMPERATURE Last administered on 08/07/17 12:40; Admin Dose 650 MG; Start 07/22/17 at 05:30 Baclofen (Lioresal) 20 mg TID GTB Last administered on 08/07/17 22:29; Admin Dose 20 MG; Start 07/22/17 at 09:00 Bisacodyl (Dulcolax Supp) 10 mg DAILY PRN [place] CONSTIPATION; Start 07/22/17 at 05:30 Docusate Sodium (Colace Liquid Cup) 100 mg BID GTB Last administered on 22:27; Admin Dose 100 MG; Start 07/22/17 at 09:00 Epoetin Andrey (Epogen (Esrd)) 15,000 units MoWeFr@17 SC Last administered on 16:40; Admin Dose 15,000 UNITS; Start 07/24/17 at 17:00 Magnesium Hydroxide (Milk Of Mag) 30 ml Q24H PRN PO CONSTIPATION; Start at 05:30 Magnesium Oxide (Mag-Ox 400) 800 mg DAILY GTB Last administered on 08/07/17 09 :53; Admin Dose 800 MG; Start 07/22/17 at 09:00 Metoclopramide HCl (Reglan) 10 mg BID GTB Last administered on 08/07/17 22:28 ; Admin Dose 10 MG; Start 07/22/17 at 09:00 Mineral Oil (Fleet Mineral Oil Enema) 133 ml DAILY PRN [place] CONSTIPATION; Start 07/22/17 at 05:30 Multivitamins Therapeutic (Theragran) 1 tab DAILY GTB Last administered on 08/07 09:54; Admin Dose 1 TAB; Start 07/22/17 at 09:00 Sucralfate (Carafate) 1 gm DAILY GTB Last administered on 08/07/17 09:53; Admin Dose 1 GM; Start 07/22/17 at 09:00 Tramadol HCl (Ultram) 100 mg DAILY GTB Last administered on 08/07/17 10:16; Admin Dose 100 MG; Start 07/22/17 at 09:00 Acetaminophen/ Hydrocodone Bitart ([place] (5/325)) 1 tab Q6H PRN GTB PAIN LEVEL 7-10; Start 07/22/17 at 05:30 Miscellaneous Information 1 ea NOTE XX ; Start 07/22/17 at 15:00 Glucose (Glutose) 15 gm Q15M PRN PO DECREASED GLUCOSE; Start 07/22/17 at 15:00 Glucose (Glutose) 22.5 gm Q15M PRN PO DECREASED GLUCOSE; Start 07/22/17 at 15: 00 Dextrose (D50w Syringe) 25 ml Q15M PRN IV DECREASED GLUCOSE; Start 07/22/17 at 15:00 Dextrose (D50w Syringe) 50 ml Q15M PRN IV DECREASED GLUCOSE; Start 07/22/17 at 15:00 Glucagon (Glucagen) 1 mg Q15M PRN IM DECREASED GLUCOSE; Start 07/22/17 at 15: 00 Glucose (Glutose) 15 gm Q15M PRN BUCCAL DECREASED GLUCOSE; Start 07/22/17 at 15:00 Linezolid (Zyvox) 600 mg BID PO Last administered on 08/07/17 22:28; Admin Dose 600 MG; Start 07/23/17 at 21:00 Fluconazole (Diflucan) 100 mg DAILY PO Last administered on 08/07/17 09:54; Admin Dose 100 MG; Start 07/25/17 at 09:00 Sodium Hypochlorite (Dakin'S (Dilute 1/40%)) 1 applic BID IRR Last administered on 08/07/17 22:30; Admin Dose 1 APPLIC; Start 07/26/17 at 21:00 Lansoprazole (Prevacid) 30 mg BID@06,18 PO Last administered on 08/07/17 05:42 ; Admin Dose 30 MG; Start 07/26/17 at 18:00 Zinc Sulfate (Zinc Sulfate) 220 mg DAILY GTB Last administered on 08/07/17 09: 55; Admin Dose 220 MG; Start 07/29/17 at 09:00 Ascorbic Acid (Vitamin C) 500 mg DAILY GTB Last administered on 08/07/17 09:54 ; Admin Dose 500 MG; Start 07/29/17 at 09:00 Collagenase (Santyl) 1 applic PRN PRN TOP PRN; Start 08/01/17 at 04:30 Collagenase 1 applic 1 applic DAILY TOP Last administered on 08/07/17 10:02; Admin Dose 1 APPLIC; Start 08/01/17 at 09:00 Colistimethate Sodium/Sodium Chloride (Coly-Mycin/NS) 100 ml @ 200 mls/hr Q24H IVPB Last administered on 08/07/17 10:16; Admin Dose 200 MLS/HR; Start at 09:00 Insulin Aspart (Novolog Insulin Pen) NOVOLOG *MILD* ALGORI... Q4 SC Last administered on 08/07/17 22:47; Admin Dose 3 UNIT; Start 08/04/17 at 17:00 Metoprolol Tartrate (Lopressor) 25 mg BID PO Last administered on 08/07/17 22: 28; Admin Dose 25 MG; Start 08/05/17 at 21:00 Insulin Aspart (Novolog Insulin Pen) 8 unit Q4 SC Last administered on 23:05; Admin Dose 8 UNIT; Start 08/06/17 at 17:00 Insulin Glargine (Lantus) 36 unit DAILY@20 SC Last administered on 08/07/17 22 :47; Admin Dose 36 UNIT; Start 08/07/17 at 20:00 SOFIE PLATA 6, 2017 23:55
[2017-08-08] VITALS (21 sets, daily range): BP systolic 97–106; BP diastolic 51–62; PULSE 94–115; RESP 12–18
[2017-08-08] MEDS: INSULIN ASPART [NOVOLOG] 3 ML PEN SC SCH ×10 (01:50→21:41)
[2017-08-08] MEDS: LANSOPRAZOLE 30 MG CAP PO SCH ×2 (06:09→17:39)
[2017-08-08 08:22] LABS: BASOPHILS % 0.1 % (0.0-2.0); EOSINOPHILS # 0.3 10^3/ul (0.0-0.5); EOSINOPHILS % 4.2 % (0.0-7.0); HEMATOCRIT 30.3 % (37.0-47.0); HEMOGLOBIN 8.8 g/dl (12.0-16.0); LYMPHOCYTES # 1.3 10^3/ul (0.8-2.9); LYMPHOCYTES % 16.3 % (15.0-51.0); MEAN CORPUSCULAR HEMOGLOBIN 24.9 pg (29.0-33.0); MEAN CORPUSCULAR VOLUME 85.8 fl (82.0-101.0); MEAN PLATELET VOLUME 11.8 fl (7.4-10.4); MONOCYTE # 0.5 10^3/ul (0.3-0.9); MONOCYTES % 5.8 % (0.0-11.0); NEUTROPHIL # 5.6 10^3/ul (1.6-7.5); NEUTROPHILS % 72.3 % (39.0-77.0); PLATELET COUNT 315 10^3/UL (140-415); RED BLOOD COUNT 3.53 10^6/ul (4.20-5.40); RED CELL DISTRIBUTION WIDTH 19.1 % (11.5-14.5); WHITE BLOOD COUNT 7.8 10^3/ul (4.8-10.8)
[2017-08-08 08:42] LABS: CALCIUM 10.4 mg/dl (8.4-10.2); CREATININE 1.63 mg/dl (0.44-1.00)
[2017-08-08] MEDS: DOCUSATE SODIUM 10 MG/ML (10ML CUP) GTB SCH ×2 (08:51→21:09)
[2017-08-08] MEDS: BACLOFEN 10 MG TAB GTB SCH ×3 (08:51→21:10)
[2017-08-08] MEDS: MAGNESIUM OXIDE 400 MG TAB GTB SCH (08:52)
[2017-08-08] MEDS: METOPROLOL 25 MG TAB PO SCH ×2 (08:52→21:00)
[2017-08-08] MEDS: SUCRALFATE 1 GM TAB GTB SCH (08:52)
[2017-08-08] MEDS: MULTIVITAMINS THERAPEUTIC TAB GTB SCH (08:52)
[2017-08-08] MEDS: ASCORBIC ACID 500 MG TAB GTB SCH (08:52)
[2017-08-08] MEDS: METOCLOPRAMIDE 10 MG TAB GTB SCH ×2 (08:52→21:10)
[2017-08-08] MEDS: ZYVOX 600 MG TAB PO SCH ×2 (08:52→21:10)
[2017-08-08] MEDS: ZINC SULFATE 220 MG CAP GTB SCH (08:52)
[2017-08-08] MEDS: FLUCONAZOLE 100 MG TAB PO SCH (08:53)
[2017-08-08] MEDS: SODIUM HYPOCHLORITE 1/40% 1L IRRIG IRR SCH ×2 (08:54→21:12)
[2017-08-08] MEDS: COLLAGENASE 30 GM TUBE TOP SCH (08:55)
[2017-08-08] MEDS: COLISTIMETHATE 135 MG in SOD CHLORIDE 0.9% 100 ML IVPB SCH (08:59)
[2017-08-08] MEDS: traMADol 50 MG TAB GTB SCH (09:12)
--- NOTE | 2017-08-08 09:15 | CONS ---
Date/Time of Note Date/Time of Note DATE: 08/08/17 TIME: 09:07 Assessment/Plan Assessment/Plan Additional Assessment/Plan 1. Sinus tachycardia-overall improved on BB/NL EF by echo - still with sinus tach, likely resp driven vs infection - con't supportive care now 2. High fevers- Rx per primary, on anti-Bx 3. Urosepsis - treated 4. Acute kidney injury- con't to hydrate as tolerated. 5. Ventilator dependent respiratory failure - trach in place, will monitor now. . 6. Anemia of chronic disease- H/H stable, no bleeding now. 7.DM Consultation Date/Type/Reason Admit Date/Time Jul 21, 2017 at 23:24 Initial Consult Date 07/26/17 Type of Consultation: cardiology Referring Provider: FLEX DENNISON NP 24 HR Interval Summary Free Text/Dictation Overall unchanged - will monitor clinically now - OK to hydraet now. Sinus tach with fever. ROS: + fever, no chills, no nausea, no vomiting, no diarrhea/constipation No recent weight changes No chest pain, no PND, no orthopnea + SOB No dizziness, blurred vision No thirst, no heat or cold intolerance Exam/Review of Systems Vital Signs Vitals Vital Signs Date Time Temp Pulse Resp B/P Pulse Ox O2 Delivery O2 Flow Rate FiO2 08/08/17 08:00 115 08/08/17 07:12 98.8 18 105/62 100 08/08/17 05:29 30 08/05/17 16:00 Mechanical Ventilator Intake and Output 08/07/17 08/07/17 08/08/17 14:59 22:59 06:59 Intake Total 895 ml Output Total 1000 ml Balance -105 ml Exam General: WN/WD/NAD, AOx 0 HEENT: Unicetric/atraumatic/EOMI (does not follow commands) NECK: trach Lymph: no lymphadenopathy HEART: regular with no S3, II/ systolic murmur at apex LUNGS: Coarse sounds ABD: soft, NT, ND, +BS : Intact Neuro: non focal SKIN: chronic changes EXT: trace edema Results Result Diagram: 08/08/17 0723 08/08/17 0723 Results 24 hrs Laboratory Tests Test 08/07/17 12:45 08/07/17 17:35 08/07/17 22:39 08/08/17 01:42 Bedside Glucose 252 H 192 235 H 216 Test 08/08/17 06:08 08/08/17 07:23 08/08/17 09:00 Bedside Glucose 206 222 H White Blood Count 7.8 Red Blood Count 3.53 L Hemoglobin 8.8 L Hematocrit 30.3 L Mean Corpuscular Volume 85.8 Mean Corpuscular Hemoglobin 24.9 L Mean Corpuscular Hemoglobin Concent 29.0 L Red Cell Distribution Width 19.1 H Platelet Count 315 Mean Platelet Volume 11.8 H Neutrophils % 72.3 Lymphocytes % 16.3 Monocytes % 5.8 Eosinophils % 4.2 Basophils % 0.1 Nucleated Red Blood Cells % 0.0 Neutrophils # 5.6 Lymphocytes # 1.3 Monocytes # 0.5 Eosinophils # 0.3 Basophils # 0.0 Nucleated Red Blood Cells # 0.0 Sodium Level 146 H Potassium Level 4.0 Chloride Level 109 Carbon Dioxide Level 22 Anion Gap 19 H Blood Urea Nitrogen 38 H Creatinine 1.63 H Glucose Level 186 Calcium Level 10.4 H Medications Medications Current Medications Miscellaneous Information (Pending [facility] Order For Wound Care) This patient stern... PRN PRN XX WOUND CARE; Start 07/22/17 at 03:30 Acetaminophen (Tylenol Tab) 650 mg Q4 PRN GTB ELEVATED TEMPERATURE Last administered on 08/07/17 12:40; Admin Dose 650 MG; Start 07/22/17 at 05:30 Baclofen (Lioresal) 20 mg TID GTB Last administered on 08/07/17 22:29; Admin Dose 20 MG; Start 07/22/17 at 09:00 Bisacodyl (Dulcolax Supp) 10 mg DAILY PRN [place] CONSTIPATION; Start 07/22/17 at 05:30 Docusate Sodium (Colace Liquid Cup) 100 mg BID GTB Last administered on 22:27; Admin Dose 100 MG; Start 07/22/17 at 09:00 Epoetin Andrey (Epogen (Esrd)) 15,000 units MoWeFr@17 SC Last administered on 16:40; Admin Dose 15,000 UNITS; Start 07/24/17 at 17:00 Magnesium Hydroxide (Milk Of Mag) 30 ml Q24H PRN PO CONSTIPATION; Start at 05:30 Magnesium Oxide (Mag-Ox 400) 800 mg DAILY GTB Last administered on 08/07/17 09 :53; Admin Dose 800 MG; Start 07/22/17 at 09:00 Metoclopramide HCl (Reglan) 10 mg BID GTB Last administered on 08/07/17 22:28 ; Admin Dose 10 MG; Start 07/22/17 at 09:00 Mineral Oil (Fleet Mineral Oil Enema) 133 ml DAILY PRN [place] CONSTIPATION; Start 07/22/17 at 05:30 Multivitamins Therapeutic (Theragran) 1 tab DAILY GTB Last administered on 08/07 09:54; Admin Dose 1 TAB; Start 07/22/17 at 09:00 Sucralfate (Carafate) 1 gm DAILY GTB Last administered on 08/07/17 09:53; Admin Dose 1 GM; Start 07/22/17 at 09:00 Tramadol HCl (Ultram) 100 mg DAILY GTB Last administered on 08/07/17 10:16; Admin Dose 100 MG; Start 07/22/17 at 09:00 Acetaminophen/ Hydrocodone Bitart ([place] (5/325)) 1 tab Q6H PRN GTB PAIN LEVEL 7-10; Start 07/22/17 at 05:30 Miscellaneous Information 1 ea NOTE XX ; Start 07/22/17 at 15:00 Glucose (Glutose) 15 gm Q15M PRN PO DECREASED GLUCOSE; Start 07/22/17 at 15:00 Glucose (Glutose) 22.5 gm Q15M PRN PO DECREASED GLUCOSE; Start 07/22/17 at 15: 00 Dextrose (D50w Syringe) 25 ml Q15M PRN IV DECREASED GLUCOSE; Start 07/22/17 at 15:00 Dextrose (D50w Syringe) 50 ml Q15M PRN IV DECREASED GLUCOSE; Start 07/22/17 at 15:00 Glucagon (Glucagen) 1 mg Q15M PRN IM DECREASED GLUCOSE; Start 07/22/17 at 15: 00 Glucose (Glutose) 15 gm Q15M PRN BUCCAL DECREASED GLUCOSE; Start 07/22/17 at 15:00 Linezolid (Zyvox) 600 mg BID PO Last administered on 08/07/17 22:28; Admin Dose 600 MG; Start 07/23/17 at 21:00 Fluconazole (Diflucan) 100 mg DAILY PO Last administered on 08/07/17 09:54; Admin Dose 100 MG; Start 07/25/17 at 09:00 Sodium Hypochlorite (Dakin'S (Dilute 1/40%)) 1 applic BID IRR Last administered on 08/07/17 22:30; Admin Dose 1 APPLIC; Start 07/26/17 at 21:00 Lansoprazole (Prevacid) 30 mg BID@06,18 PO Last administered on 08/08/17 06:09 ; Admin Dose 30 MG; Start 07/26/17 at 18:00 Zinc Sulfate (Zinc Sulfate) 220 mg DAILY GTB Last administered on 08/07/17 09: 55; Admin Dose 220 MG; Start 07/29/17 at 09:00 Ascorbic Acid (Vitamin C) 500 mg DAILY GTB Last administered on 08/07/17 09:54 ; Admin Dose 500 MG; Start 07/29/17 at 09:00 Collagenase (Santyl) 1 applic PRN PRN TOP PRN; Start 08/01/17 at 04:30 Collagenase 1 applic 1 applic DAILY TOP Last administered on 08/07/17 10:02; Admin Dose 1 APPLIC; Start 08/01/17 at 09:00 Colistimethate Sodium/Sodium Chloride (Coly-Mycin/NS) 100 ml @ 200 mls/hr Q24H IVPB Last administered on 08/07/17 10:16; Admin Dose 200 MLS/HR; Start at 09:00 Insulin Aspart (Novolog Insulin Pen) NOVOLOG *MILD* ALGORI... Q4 SC Last administered on 08/08/17 06:16; Admin Dose 2 UNIT; Start 08/04/17 at 17:00 Metoprolol Tartrate (Lopressor) 25 mg BID PO Last administered on 08/07/17 22: 28; Admin Dose 25 MG; Start 08/05/17 at 21:00 Insulin Aspart (Novolog Insulin Pen) 8 unit Q4 SC Last administered on 06:15; Admin Dose 8 UNIT; Start 08/06/17 at 17:00 Insulin Glargine (Lantus) 36 unit DAILY@20 SC Last administered on 08/07/17 22 :47; Admin Dose 36 UNIT; Start 08/07/17 at 20:00 MI RICHMOND MD 7, 2017 09:15
--- NOTE | 2017-08-08 12:28 | CONS ---
Date/Time of Note Date/Time of Note DATE: 08/08/17 TIME: 12:24 Consult Date/Type/Reason Admit Date/Time Jul 21, 2017 at 23:24 Initial Consult Date 07/22/17 Type of Consultation: cardiology Ordering Provider: FLEX DENNISON NP Objective Vital Signs Date Time Temp Pulse Resp B/P Pulse Ox O2 Delivery O2 Flow Rate FiO2 08/08/17 11:44 100.0 104 18 106/58 94 08/08/17 11:37 30 08/05/17 16:00 Mechanical Ventilator Intake and Output 08/07/17 08/07/17 08/08/17 15:00 23:00 07:00 Intake Total 895 ml Output Total 1000 ml Balance -105 ml Results/Medications Result Diagram: 08/08/1723 08/08/17722 Results 24 hrs Laboratory Tests Test 08/07/17 12:45 08/07/17 17:35 08/07/17 22:39 08/08/17 01:42 Bedside Glucose 252 H 192 235 H 216 Test 08/08/17 06:08 08/08/17 07:23 08/08/17 09:00 Bedside Glucose 206 222 H White Blood Count 7.8 Red Blood Count 3.53 L Hemoglobin 8.8 L Hematocrit 30.3 L Mean Corpuscular Volume 85.8 Mean Corpuscular Hemoglobin 24.9 L Mean Corpuscular Hemoglobin Concent 29.0 L Red Cell Distribution Width 19.1 H Platelet Count 315 Mean Platelet Volume 11.8 H Neutrophils % 72.3 Lymphocytes % 16.3 Monocytes % 5.8 Eosinophils % 4.2 Basophils % 0.1 Nucleated Red Blood Cells % 0.0 Neutrophils # 5.6 Lymphocytes # 1.3 Monocytes # 0.5 Eosinophils # 0.3 Basophils # 0.0 Nucleated Red Blood Cells # 0.0 Sodium Level 146 H Potassium Level 4.0 Chloride Level 109 Carbon Dioxide Level 22 Anion Gap 19 H Blood Urea Nitrogen 38 H Creatinine 1.63 H Glucose Level 186 Calcium Level 10.4 H Thyroid Stimulating Hormone (TSH) 0.991 Medications Current Medications Miscellaneous Information (Pending Santyl Order For Wound Care) This patient stern... PRN PRN XX WOUND CARE; Start 07/22/17 at 03:30 Acetaminophen (Tylenol Tab) 650 mg Q4 PRN GTB ELEVATED TEMPERATURE Last administered on 08/07/17 12:40; Admin Dose 650 MG; Start 07/22/17 at 05:30 Baclofen (Lioresal) 20 mg TID GTB Last administered on 08/08/17 08:51; Admin Dose 20 MG; Start 07/22/17 at 09:00 Bisacodyl (Dulcolax Supp) 10 mg DAILY PRN [place] CONSTIPATION; Start 07/22/17 at 05:30 Docusate Sodium (Colace Liquid Cup) 100 mg BID GTB Last administered on 08:51; Admin Dose 100 MG; Start 07/22/17 at 09:00 Epoetin Andrey (Epogen (Esrd)) 15,000 units MoWeFr@17 SC Last administered on 16:40; Admin Dose 15,000 UNITS; Start 07/24/17 at 17:00 Magnesium Hydroxide (Milk Of Mag) 30 ml Q24H PRN PO CONSTIPATION; Start at 05:30 Magnesium Oxide (Mag-Ox 400) 800 mg DAILY GTB Last administered on 08/08/17 08 :52; Admin Dose 800 MG; Start 07/22/17 at 09:00 Metoclopramide HCl (Reglan) 10 mg BID GTB Last administered on 08/08/17 08:52 ; Admin Dose 10 MG; Start 07/22/17 at 09:00 Mineral Oil (Fleet Mineral Oil Enema) 133 ml DAILY PRN [place] CONSTIPATION; Start 07/22/17 at 05:30 Multivitamins Therapeutic (Theragran) 1 tab DAILY GTB Last administered on 08/08 08:52; Admin Dose 1 TAB; Start 07/22/17 at 09:00 Sucralfate (Carafate) 1 gm DAILY GTB Last administered on 08/08/17 08:52; Admin Dose 1 GM; Start 07/22/17 at 09:00 Tramadol HCl (Ultram) 100 mg DAILY GTB Last administered on 08/08/17 09:12; Admin Dose 100 MG; Start 07/22/17 at 09:00 Acetaminophen/ Hydrocodone Bitart ([place] (5/325)) 1 tab Q6H PRN GTB PAIN LEVEL 7-10; Start 07/22/17 at 05:30 Miscellaneous Information 1 ea NOTE XX ; Start 07/22/17 at 15:00 Glucose (Glutose) 15 gm Q15M PRN PO DECREASED GLUCOSE; Start 07/22/17 at 15:00 Glucose (Glutose) 22.5 gm Q15M PRN PO DECREASED GLUCOSE; Start 07/22/17 at 15: 00 Dextrose (D50w Syringe) 25 ml Q15M PRN IV DECREASED GLUCOSE; Start 07/22/17 at 15:00 Dextrose (D50w Syringe) 50 ml Q15M PRN IV DECREASED GLUCOSE; Start 07/22/17 at 15:00 Glucagon (Glucagen) 1 mg Q15M PRN IM DECREASED GLUCOSE; Start 07/22/17 at 15: 00 Glucose (Glutose) 15 gm Q15M PRN BUCCAL DECREASED GLUCOSE; Start 07/22/17 at 15:00 Linezolid (Zyvox) 600 mg BID PO Last administered on 08/08/17 08:52; Admin Dose 600 MG; Start 07/23/17 at 21:00 Fluconazole (Diflucan) 100 mg DAILY PO Last administered on 08/08/17 08:53; Admin Dose 100 MG; Start 07/25/17 at 09:00 Sodium Hypochlorite (Dakin'S (Dilute 1/40%)) 1 applic BID IRR Last administered on 08/08/17 08:54; Admin Dose 1 APPLIC; Start 07/26/17 at 21:00 Lansoprazole (Prevacid) 30 mg BID@06,18 PO Last administered on 08/08/17 06:09 ; Admin Dose 30 MG; Start 07/26/17 at 18:00 Zinc Sulfate (Zinc Sulfate) 220 mg DAILY GTB Last administered on 08/08/17 08: 52; Admin Dose 220 MG; Start 07/29/17 at 09:00 Ascorbic Acid (Vitamin C) 500 mg DAILY GTB Last administered on 08/08/17 08:52 ; Admin Dose 500 MG; Start 07/29/17 at 09:00 Collagenase (Santyl) 1 applic PRN PRN TOP PRN; Start 08/01/17 at 04:30 Collagenase 1 applic 1 applic DAILY TOP Last administered on 08/08/17 08:55; Admin Dose 1 APPLIC; Start 08/01/17 at 09:00 Colistimethate Sodium/Sodium Chloride (Coly-Mycin/NS) 100 ml @ 200 mls/hr Q24H IVPB Last administered on 08/08/17 08:59; Admin Dose 200 MLS/HR; Start at 09:00 Insulin Aspart (Novolog Insulin Pen) NOVOLOG *MILD* ALGORI... Q4 SC Last administered on 08/08/17 09:04; Admin Dose 3 UNIT; Start 08/04/17 at 17:00 Metoprolol Tartrate (Lopressor) 25 mg BID PO Last administered on 08/08/17 08: 52; Admin Dose 25 MG; Start 08/05/17 at 21:00 Insulin Aspart (Novolog Insulin Pen) 8 unit Q4 SC Last administered on 09:03; Admin Dose 8 UNIT; Start 08/06/17 at 17:00 Insulin Glargine (Lantus) 36 unit DAILY@20 SC Last administered on 08/07/17 22 :47; Admin Dose 36 UNIT; Start 08/07/17 at 20:00 Assessment/Plan Chief Complaint/Hosp Course No acute changes, spiked fever last night 101.3, noncommunicative, looks comfortable Microbiology: Wound culture growing Acinetobacter, VRE, Pilar albicans, MRSA , coag negative staph species. Blood culture grew staph species, urine culture growing gram-negative rods Indwelling: Trach/PEG/PICC/Joel Abx: Colistin, Diflucan, Zyvox ALL: PCN, Levaquin, Vanco, Cephalosporins GENERAL: The patient is a nonverbal female who is awake, noncommunicative, no acute distress. SKIN: Without generalized rash. HEENT: Within normal limits. NECK: Supple. Lymph nodes nonpalpable. She has a tracheostomy in place. SKIN: She has a PICC line on the left side in the superior vena cava. CHEST: Decreased breath sounds at the bases. HEART: Without murmur or gallop. ABDOMEN: Soft, nontender. G-tube in place. + BT EXTREMITIES: Without cyanosis, clubbing or edema. Assessment: 1. Sepsis with ongoing fevers and tachycardia 2. Persistent UTI==> GNR 2. Multiple chronic wounds 3. Acute on chronic anemia 4. ARF=> nephrology follows 5. VDRF 6. Chronic encephalopathy 7. Bacteremia, possibly contaminant vs 2 to wounds Plan: Clinically unchanged, repeat bld cx's negative, repeat urine cx still + PSA, renal US with nonobstructing stones, pending CT abdomen/pelvis, wound care per surgical rec-s Dw staff Problems: FLEX DENNISON NP Aug 08, 2017 12:28
[2017-08-08] MEDS: ACETAMINOPHEN 325 MG TAB GTB PRN (12:35)
--- NOTE | 2017-08-08 13:02 | CONS ---
Date/Time of Note Date/Time of Note DATE: 08/08/17 TIME: 12:57 Consultation Date/Type/Reason Admit Date/Time Jul 21, 2017 at 23:24 Initial Consult Date THIS IS A LATE ENTERY FOR 08/07/17 DUE TO COMPUTER SYSTEM BEING DOWN YESTERDAY SUBJECTIVE: 56 y/o female being treated for UTI and sepsis. No acutes over night. FEver today at 102.3 and tachycardia. Pt. non-verbal. Comfortably resting in bed. VS: 101/59 P:88 R:12 T: 99.0 SO2: 99%. LABS: WBC-6.6 H&H: 7.6/26.7 Renal US: 08/07/17 IMPRESSION: 1. Benign right renal cysts. 2. Multiple bilateral large nonobstructing renal calculi. 3. Bilateral hyperechoic kidneys consistent with medical renal disease. 4. Joel catheter in the bladder. 5. Otherwise unremarkable study. Microbiology: Wound culture growing Acinetobacter, VRE, Pilar albicans, MRSA , coag negative staph species. Blood culture grew staph species, urine culture growing gram-negative rods. URINE CULTURE Final Organism 1 PSEUDOMONAS AERUGINOSA COLONY COUNT 10,000 - 20,000 CFU/ml Indwelling: Trach/PEG/PICC/Joel Abx: Colistin IV, Diflucan PO, Zyvox PO BID ALL: PCN, Levaquin, Vanco, Cephalosporins GENERAL: The patient is a nonverbal female who is awake, noncommunicative, no acute distress. SKIN: Without generalized rash. HEENT: Within normal limits. NECK: Supple. Lymph nodes nonpalpable. She has a tracheostomy in place. SKIN: She has a PICC line on the left side in the superior vena cava. CHEST: Decreased breath sounds at the bases. HEART: Without murmur or gallop. ABDOMEN: Soft, nontender. G-tube in place. + BT EXTREMITIES: Without cyanosis, clubbing or edema. Assessment: 1. Sepsis with ongoing fevers and tachycardia 2. Persistent UTI==> GNR 2. Multiple chronic wounds 3. Acute on chronic anemia 4. ARF=> nephrology follows 5. VDRF 6. Chronic encephalopathy 7. Bacteremia, possibly contaminant vs 2 to wounds Plan: Pt. remains unchanged and stable. 1 unit of blood per primary. Continue current abx, local wound care and pain management. Type of Consultation: ID Referring Provider: FLEX DENNISON DECORATING MACHINE TENDER Exam/Review of Systems Vital Signs Vitals Vital Signs Date Time Temp Pulse Resp B/P Pulse Ox O2 Delivery O2 Flow Rate FiO2 08/08/17 12:00 103 08/08/17 11:44 100.0 18 106/58 94 08/08/17 11:37 30 08/05/17 16:00 Mechanical Ventilator Intake and Output 08/07/17 08/07/17 08/08/17 15:00 23:00 07:00 Intake Total 895 ml Output Total 1000 ml Balance -105 ml Results Result Diagram: 08/08/17 0723 08/08/17 0723 Results 24 hrs Laboratory Tests Test 08/07/17 17:35 08/07/17 22:39 08/08/17 01:42 08/08/17 06:08 Bedside Glucose 192 235 H 216 206 Test 08/08/17 07:23 08/08/17 09:00 08/08/17 12:33 White Blood Count 7.8 Red Blood Count 3.53 L Hemoglobin 8.8 L Hematocrit 30.3 L Mean Corpuscular Volume 85.8 Mean Corpuscular Hemoglobin 24.9 L Mean Corpuscular Hemoglobin Concent 29.0 L Red Cell Distribution Width 19.1 H Platelet Count 315 Mean Platelet Volume 11.8 H Neutrophils % 72.3 Lymphocytes % 16.3 Monocytes % 5.8 Eosinophils % 4.2 Basophils % 0.1 Nucleated Red Blood Cells % 0.0 Neutrophils # 5.6 Lymphocytes # 1.3 Monocytes # 0.5 Eosinophils # 0.3 Basophils # 0.0 Nucleated Red Blood Cells # 0.0 Sodium Level 146 H Potassium Level 4.0 Chloride Level 109 Carbon Dioxide Level 22 Anion Gap 19 H Blood Urea Nitrogen 38 H Creatinine 1.63 H Glucose Level 186 Calcium Level 10.4 H Thyroid Stimulating Hormone (TSH) 0.991 Bedside Glucose 222 H 242 H Medications Medications Current Medications Miscellaneous Information (Pending Santyl Order For Wound Care) This patient stern... PRN PRN XX WOUND CARE; Start 07/22/17 at 03:30 Acetaminophen (Tylenol Tab) 650 mg Q4 PRN GTB ELEVATED TEMPERATURE Last administered on 08/08/17t 12:35; Admin Dose 650 MG; Start 07/22/17 at 05:30 Baclofen (Lioresal) 20 mg TID GTB Last administered on 08/08/17 12:35; Admin Dose 20 MG; Start 07/22/17 at 09:00 Bisacodyl (Dulcolax Supp) 10 mg DAILY PRN [place] CONSTIPATION; Start 07/22/17 at 05:30 Docusate Sodium (Colace Liquid Cup) 100 mg BID GTB Last administered on 08:51; Admin Dose 100 MG; Start 07/22/17 at 09:00 Epoetin Andrey (Epogen (Esrd)) 15,000 units MoWeFr@17 SC Last administered on 16:40; Admin Dose 15,000 UNITS; Start 07/24/17 at 17:00 Magnesium Hydroxide (Milk Of Mag) 30 ml Q24H PRN PO CONSTIPATION; Start at 05:30 Magnesium Oxide (Mag-Ox 400) 800 mg DAILY GTB Last administered on 08/08/17 08 :52; Admin Dose 800 MG; Start 07/22/17 at 09:00 Metoclopramide HCl (Reglan) 10 mg BID GTB Last administered on 08/08/17 08:52 ; Admin Dose 10 MG; Start 07/22/17 at 09:00 Mineral Oil (Fleet Mineral Oil Enema) 133 ml DAILY PRN [place] CONSTIPATION; Start 07/22/17 at 05:30 Multivitamins Therapeutic (Theragran) 1 tab DAILY GTB Last administered on 08/08 08:52; Admin Dose 1 TAB; Start 07/22/17 at 09:00 Sucralfate (Carafate) 1 gm DAILY GTB Last administered on 08/08/17 08:52; Admin Dose 1 GM; Start 07/22/17 at 09:00 Tramadol HCl (Ultram) 100 mg DAILY GTB Last administered on 08/08/17 09:12; Admin Dose 100 MG; Start 07/22/17 at 09:00 Acetaminophen/ Hydrocodone Bitart ([place] (5/325)) 1 tab Q6H PRN GTB PAIN LEVEL 7-10; Start 07/22/17 at 05:30 Miscellaneous Information 1 ea NOTE XX ; Start 07/22/17 at 15:00 Glucose (Glutose) 15 gm Q15M PRN PO DECREASED GLUCOSE; Start 07/22/17 at 15:00 Glucose (Glutose) 22.5 gm Q15M PRN PO DECREASED GLUCOSE; Start 07/22/17 at 15: 00 Dextrose (D50w Syringe) 25 ml Q15M PRN IV DECREASED GLUCOSE; Start 07/22/17 at 15:00 Dextrose (D50w Syringe) 50 ml Q15M PRN IV DECREASED GLUCOSE; Start 07/22/17 at 15:00 Glucagon (Glucagen) 1 mg Q15M PRN IM DECREASED GLUCOSE; Start 07/22/17 at 15: 00 Glucose (Glutose) 15 gm Q15M PRN BUCCAL DECREASED GLUCOSE; Start 07/22/17 at 15:00 Linezolid (Zyvox) 600 mg BID PO Last administered on 08/08/17 08:52; Admin Dose 600 MG; Start 07/23/17 at 21:00 Fluconazole (Diflucan) 100 mg DAILY PO Last administered on 08/08/17 08:53; Admin Dose 100 MG; Start 07/25/17 at 09:00 Sodium Hypochlorite (Dakin'S (Dilute 1/40%)) 1 applic BID IRR Last administered on 08/08/17 08:54; Admin Dose 1 APPLIC; Start 07/26/17 at 21:00 Lansoprazole (Prevacid) 30 mg BID@06,18 PO Last administered on 08/08/17 06:09 ; Admin Dose 30 MG; Start 07/26/17 at 18:00 Zinc Sulfate (Zinc Sulfate) 220 mg DAILY GTB Last administered on 08/08/17 08: 52; Admin Dose 220 MG; Start 07/29/17 at 09:00 Ascorbic Acid (Vitamin C) 500 mg DAILY GTB Last administered on 08/08/17 08:52 ; Admin Dose 500 MG; Start 07/29/17 at 09:00 Collagenase (Santyl) 1 applic PRN PRN TOP PRN; Start 08/01/17 at 04:30 Collagenase 1 applic 1 applic DAILY TOP Last administered on 08/08/17 08:55; Admin Dose 1 APPLIC; Start 08/01/17 at 09:00 Colistimethate Sodium/Sodium Chloride (Coly-Mycin/NS) 100 ml @ 200 mls/hr Q24H IVPB Last administered on 08/08/17 08:59; Admin Dose 200 MLS/HR; Start at 09:00 Insulin Aspart (Novolog Insulin Pen) NOVOLOG *MILD* ALGORI... Q4 SC Last administered on 08/08/17 12:37; Admin Dose 3 UNIT; Start 08/04/17 at 17:00 Metoprolol Tartrate (Lopressor) 25 mg BID PO Last administered on 08/08/17 08: 52; Admin Dose 25 MG; Start 08/05/17 at 21:00 Insulin Aspart (Novolog Insulin Pen) 8 unit Q4 SC Last administered on 12:36; Admin Dose 8 UNIT; Start 08/06/17 at 17:00 Insulin Glargine (Lantus) 36 unit DAILY@20 SC Last administered on 08/07/17 22 :47; Admin Dose 36 UNIT; Start 08/07/17 at 20:00 MICHEL EARL Aug 08, 2017 13:02
--- NOTE | 2017-08-08 13:05 | PN ---
Date/Time of Note Date/Time of Note DATE: 08/08/17 TIME: 13:00 Assessment/Plan Lines/Catheters IV Catheter Type (from Nrs): Mid Line Joel in Place (from Nrs): Yes Assessment/Plan Chief Complaint/Hosp Course 1. Multiple wound: 2/2 immobility; cultures noted: s/p debridement; still pending MRI -debridement prn -local care-bid -frequent turning and off-loading -low air loss mattress -vitamin c -short term zinc -optimize nutrition 2. Hypochromic anemia: no acute bleed noted -monitor -transfuse as needed 3. UTI: cultures noted -abx per sensitivity -frequent bladder emptying/cath care 4. VDRF -pulm toilet -respiratory treatments 5. Fevers and tachycardia: likely 2/2 #3, 1, tsh nl -as above -mri to evaluate for osteo-pending Thank you. Patient seen and examined in collaboration with Dr. Hi High. Problems: Subjective 24 Hr Interval Summary Temps yesterday. Still pending mri. Tachycardia. No congested cough, v/d, sz, rash, excessive wound drainage. Nonverbal indicators of pain not present. Appears comfortable on vent. . Exam/Review of Systems Vital Signs Vitals Vital Signs Date Time Temp Pulse Resp B/P Pulse Ox O2 Delivery O2 Flow Rate FiO2 08/08/17 12:00 103 08/08/17 11:44 100.0 18 106/58 94 08/08/17 11:37 30 08/05/17 16:00 Mechanical Ventilator Intake and Output 08/07/17 08/07/17 08/08/17 15:00 23:00 07:00 Intake Total 895 ml Output Total 1000 ml Balance -105 ml Exam Free Text/Dictation Constitutional: alert, other (nonverbal) Head: atraumatic, normocephalic Eyes: nl lids, nl sclera, No icteric ENMT: mucosa pink and moist, nl nasal mucosa & septum Neck: non-tender, other (trach), supple Respiratory: other (vent), No labored breathing Cardiovascular: regular rate and rhythm: Gastrointestinal: non-tender, other (peg; umbilical hernia, rotund), soft Extremities: normal pulses, other (stiffness) Neurological: other (withdraws from painful stimuli) Skin: other (multiple wounds: packed, min drainage) Results Result Diagram: 08/08/17 0723 08/08/17 0723 SANFORD RODRIGUEZ NP Aug 08, 2017 13:05
--- NOTE | 2017-08-08 14:53 | RADRPT ---
Vent Rate: 95 bpm RR Interval: 0 msec [place] Interval: 148 msec QRS Duration: 70 msec QT Interval: 348 msec QTC Interval: 437 msec P-R-T [place]: 49 - 31 - 34 degrees Normal sinus rhythm Normal ECG Electronically Signed By: Ruddy Allen [id number]
--- NOTE | 2017-08-08 15:36 | CONS ---
Date/Time of Note Date/Time of Note DATE: 08/08/17 TIME: 15:35 Consult Date/Type/Reason Admit Date/Time Jul 21, 2017 at 23:24 Initial Consult Date 07/22/17 Type of Consultation: Pulmonary Ordering Provider: FLEX DENNISON NP Subjective Changes noted. Objective Vital Signs Date Time Temp Pulse Resp B/P Pulse Ox O2 Delivery O2 Flow Rate FiO2 08/08/17 13:05 96 15 99 30 08/08/17 11:44 100.0 106/58 08/05/17 16:00 Mechanical Ventilator Intake and Output 08/07/17 08/07/17 08/08/17 14:59 22:59 06:59 Intake Total 895 ml Output Total 1000 ml Balance -105 ml Exam PHYSICAL EXAMINATION GENERAL: Chronically ill-appearing lady on mechanical ventilation VITAL SIGNS: see below. HEENT: Pupils equal, round, and reactive to light. Tracheostomy site clean and intact. CARDIAC: S1, S2, 1/6 systolic ejection murmur CHEST: Diminished air entry bilaterally. ABDOMEN: Mildly distended. Bowel sounds present no guarding or rebound EXTREMITIES: No cyanosis, clubbing edema +1 NEUROLOGIC: Generalized weakness Results/Medications Result Diagram: 08/08/17 0723 08/08/17 0723 Results 24 hrs Laboratory Tests Test 08/07/17 17:35 08/07/17 22:39 08/08/17 01:42 08/08/17 06:08 Bedside Glucose 192 235 H 216 206 Test 08/08/17 07:23 08/08/17 09:00 08/08/17 12:33 White Blood Count 7.8 Red Blood Count 3.53 L Hemoglobin 8.8 L Hematocrit 30.3 L Mean Corpuscular Volume 85.8 Mean Corpuscular Hemoglobin 24.9 L Mean Corpuscular Hemoglobin Concent 29.0 L Red Cell Distribution Width 19.1 H Platelet Count 315 Mean Platelet Volume 11.8 H Neutrophils % 72.3 Lymphocytes % 16.3 Monocytes % 5.8 Eosinophils % 4.2 Basophils % 0.1 Nucleated Red Blood Cells % 0.0 Neutrophils # 5.6 Lymphocytes # 1.3 Monocytes # 0.5 Eosinophils # 0.3 Basophils # 0.0 Nucleated Red Blood Cells # 0.0 Sodium Level 146 H Potassium Level 4.0 Chloride Level 109 Carbon Dioxide Level 22 Anion Gap 19 H Blood Urea Nitrogen 38 H Creatinine 1.63 H Glucose Level 186 Calcium Level 10.4 H Thyroid Stimulating Hormone (TSH) 0.991 Bedside Glucose 222 H 242 H Medications Current Medications Miscellaneous Information (Pending [facility] Order For Wound Care) This patient stern... PRN PRN XX WOUND CARE; Start 07/22/17 at 03:30 Acetaminophen (Tylenol Tab) 650 mg Q4 PRN GTB ELEVATED TEMPERATURE Last administered on 08/08/17 12:35; Admin Dose 650 MG; Start 07/22/17 at 05:30 Baclofen (Lioresal) 20 mg TID GTB Last administered on 08/08/17 12:35; Admin Dose 20 MG; Start 07/22/17 at 09:00 Bisacodyl (Dulcolax Supp) 10 mg DAILY PRN [place] CONSTIPATION; Start 07/22/17 at 05:30 Docusate Sodium (Colace Liquid Cup) 100 mg BID GTB Last administered on 08:51; Admin Dose 100 MG; Start 07/22/17 at 09:00 Epoetin Andrey (Epogen (Esrd)) 15,000 units MoWeFr@17 SC Last administered on 16:40; Admin Dose 15,000 UNITS; Start 07/24/17 at 17:00 Magnesium Hydroxide (Milk Of Mag) 30 ml Q24H PRN PO CONSTIPATION; Start at 05:30 Magnesium Oxide (Mag-Ox 400) 800 mg DAILY GTB Last administered on 08/08/17 08 :52; Admin Dose 800 MG; Start 07/22/17 at 09:00 Metoclopramide HCl (Reglan) 10 mg BID GTB Last administered on 08/08/17 08:52 ; Admin Dose 10 MG; Start 07/22/17 at 09:00 Mineral Oil (Fleet Mineral Oil Enema) 133 ml DAILY PRN [place] CONSTIPATION; Start 07/22/17 at 05:30 Multivitamins Therapeutic (Theragran) 1 tab DAILY GTB Last administered on 08/08 08:52; Admin Dose 1 TAB; Start 07/22/17 at 09:00 Sucralfate (Carafate) 1 gm DAILY GTB Last administered on 08/08/17 08:52; Admin Dose 1 GM; Start 07/22/17 at 09:00 Tramadol HCl (Ultram) 100 mg DAILY GTB Last administered on 08/08/17 09:12; Admin Dose 100 MG; Start 07/22/17 at 09:00 Acetaminophen/ Hydrocodone Bitart ([place] (5/325)) 1 tab Q6H PRN GTB PAIN LEVEL 7-10; Start 07/22/17 at 05:30 Miscellaneous Information 1 ea NOTE XX ; Start 07/22/17 at 15:00 Glucose (Glutose) 15 gm Q15M PRN PO DECREASED GLUCOSE; Start 07/22/17 at 15:00 Glucose (Glutose) 22.5 gm Q15M PRN PO DECREASED GLUCOSE; Start 07/22/17 at 15: 00 Dextrose (D50w Syringe) 25 ml Q15M PRN IV DECREASED GLUCOSE; Start 07/22/17 at 15:00 Dextrose (D50w Syringe) 50 ml Q15M PRN IV DECREASED GLUCOSE; Start 07/22/17 at 15:00 Glucagon (Glucagen) 1 mg Q15M PRN IM DECREASED GLUCOSE; Start 07/22/17 at 15: 00 Glucose (Glutose) 15 gm Q15M PRN BUCCAL DECREASED GLUCOSE; Start 07/22/17 at 15:00 Linezolid (Zyvox) 600 mg BID PO Last administered on 08/08/17 08:52; Admin Dose 600 MG; Start 07/23/17 at 21:00 Fluconazole (Diflucan) 100 mg DAILY PO Last administered on 08/08/17 08:53; Admin Dose 100 MG; Start 07/25/17 at 09:00 Sodium Hypochlorite (Dakin'S (Dilute 1/40%)) 1 applic BID IRR Last administered on 08/08/17 08:54; Admin Dose 1 APPLIC; Start 07/26/17 at 21:00 Lansoprazole (Prevacid) 30 mg BID@,18 PO Last administered on 08/08/17 06:09 ; Admin Dose 30 MG; Start 07/26/17 at 18:00 Zinc Sulfate (Zinc Sulfate) 220 mg DAILY GTB Last administered on 08/08/17 08: 52; Admin Dose 220 MG; Start 07/29/17 at 09:00 Ascorbic Acid (Vitamin C) 500 mg DAILY GTB Last administered on 08/08/17 08:52 ; Admin Dose 500 MG; Start 07/29/17 at 09:00 Collagenase (Santyl) 1 applic PRN PRN TOP PRN; Start 08/01/17 at 04:30 Collagenase 1 applic 1 applic DAILY TOP Last administered on 08/08/17 08:55; Admin Dose 1 APPLIC; Start 08/01/17 at 09:00 Colistimethate Sodium/Sodium Chloride (Coly-Mycin/NS) 100 ml @ 200 mls/hr Q24H IVPB Last administered on 08/08/17 08:59; Admin Dose 200 MLS/HR; Start at 09:00 Insulin Aspart (Novolog Insulin Pen) NOVOLOG *MILD* ALGORI... Q4 SC Last administered on 08/08/17 12:37; Admin Dose 3 UNIT; Start 08/04/17 at 17:00 Metoprolol Tartrate (Lopressor) 25 mg BID PO Last administered on 08/08/17 08: 52; Admin Dose 25 MG; Start 08/05/17 at 21:00 Insulin Aspart (Novolog Insulin Pen) 8 unit Q4 SC Last administered on 12:36; Admin Dose 8 UNIT; Start 08/06/17 at 17:00 Insulin Glargine (Lantus) 36 unit DAILY@20 SC Last administered on 08/07/17 22 :47; Admin Dose 36 UNIT; Start 08/07/17 at 20:00 Assessment/Plan Chief Complaint/Hosp Course Additional Assessment/Plan IMP: 1. Anemia--workup in place. 2. Urosepsis 3. VDRF 4. Encephalopathy RECS: 1. Vent support 2. BD's/CPT 3. Abx per ID 4. GIB w/u per GI Pending transfer to [facility]. Problems: ULYSSES FORRESTER MD, [facility] Aug 08, 2017 15:36
--- NOTE | 2017-08-08 16:02 | PN ---
Date/Time of Note Date/Time of Note DATE: 08/08/17 TIME: 16:00 Assessment/Plan VTE Prophylaxis VTE Prophylaxis Intervention: SCD's Lines/Catheters IV Catheter Type (from Nrs): Mid Line Urinary Cath still in place: Yes Reason Cath still needed: urinary retention Assessment/Plan Chief Complaint/Hosp Course Patient is taken to CT abdomen/pelvis, pt remains tachycardic, low grade fever. Assessment/Plan -Sepsis secondary to UTI, possible pneumonia, infected wounds. Continue antibiotics per ID . Dr. Zavaleta is following in infection disease consultation. -Anemia of chronic disease, continue Epogen. Dr. Ruiz is following in gastroenterology consultation. -Diabetes mellitus, continue Lantus and NovoLog per sliding scale with Accu- Chek every 4 hours. -Advanced multiple sclerosis -Ventilator dependent respiratory failure. Dr. Blackwell is following in pulmonology consultation. -Dysphagia with PEG -Multiple decubitus ulcer, continue wound care per wound care consult. Status post sacral wound debridement on 08/04. Dr. High is following in general surgery consultation. -Acute on chronic encephalopathy. Further recommendations based on clinical course. Plan of care discussed with Dr. Taylor. Problems: Exam/Review of Systems Vital Signs Vitals Vital Signs Date Time Temp Pulse Resp B/P Pulse Ox O2 Delivery O2 Flow Rate FiO2 08/08/17 13:05 96 15 99 30 08/08/17 11:44 100.0 106/58 08/05/17 16:00 Mechanical Ventilator Intake and Output 08/07/17 08/07/17 08/08/17 15:00 23:00 07:00 Intake Total 895 ml Output Total 1000 ml Balance -105 ml Results Result Diagram: 08/08/17 0723 08/08/17 0723 Results 24 hrs Laboratory Tests Test 08/07/17 17:35 08/07/17 22:39 08/08/17 01:42 08/08/17 06:08 Bedside Glucose 192 235 H 216 206 Test 08/08/17 07:23 08/08/17 09:00 08/08/17 12:33 White Blood Count 7.8 Red Blood Count 3.53 L Hemoglobin 8.8 L Hematocrit 30.3 L Mean Corpuscular Volume 85.8 Mean Corpuscular Hemoglobin 24.9 L Mean Corpuscular Hemoglobin Concent 29.0 L Red Cell Distribution Width 19.1 H Platelet Count 315 Mean Platelet Volume 11.8 H Neutrophils % 72.3 Lymphocytes % 16.3 Monocytes % 5.8 Eosinophils % 4.2 Basophils % 0.1 Nucleated Red Blood Cells % 0.0 Neutrophils # 5.6 Lymphocytes # 1.3 Monocytes # 0.5 Eosinophils # 0.3 Basophils # 0.0 Nucleated Red Blood Cells # 0.0 Sodium Level 146 H Potassium Level 4.0 Chloride Level 109 Carbon Dioxide Level 22 Anion Gap 19 H Blood Urea Nitrogen 38 H Creatinine 1.63 H Glucose Level 186 Calcium Level 10.4 H Thyroid Stimulating Hormone (TSH) 0.991 Bedside Glucose 222 H 242 H Medications Medications Current Medications Miscellaneous Information (Pending [facility] Order For Wound Care) This patient stern... PRN PRN XX WOUND CARE; Start 07/22/17 at 03:30 Acetaminophen (Tylenol Tab) 650 mg Q4 PRN GTB ELEVATED TEMPERATURE Last administered on 08/08/17 12:35; Admin Dose 650 MG; Start 07/22/17 at 05:30 Baclofen (Lioresal) 20 mg TID GTB Last administered on 08/08/17 12:35; Admin Dose 20 MG; Start 07/22/17 at 09:00 Bisacodyl (Dulcolax Supp) 10 mg DAILY PRN [place] CONSTIPATION; Start 07/22/17 at 05:30 Docusate Sodium (Colace Liquid Cup) 100 mg BID GTB Last administered on 08:51; Admin Dose 100 MG; Start 07/22/17 at 09:00 Epoetin Andrey (Epogen (Esrd)) 15,000 units MoWeFr@17 SC Last administered on 16:40; Admin Dose 15,000 UNITS; Start 07/24/17 at 17:00 Magnesium Hydroxide (Milk Of Mag) 30 ml Q24H PRN PO CONSTIPATION; Start at 05:30 Magnesium Oxide (Mag-Ox 400) 800 mg DAILY GTB Last administered on 08/08/17 08 :52; Admin Dose 800 MG; Start 07/22/17 at 09:00 Metoclopramide HCl (Reglan) 10 mg BID GTB Last administered on 08/08/17 08:52 ; Admin Dose 10 MG; Start 07/22/17 at 09:00 Mineral Oil (Fleet Mineral Oil Enema) 133 ml DAILY PRN [place] CONSTIPATION; Start 07/22/17 at 05:30 Multivitamins Therapeutic (Theragran) 1 tab DAILY GTB Last administered on 08/08 08:52; Admin Dose 1 TAB; Start 07/22/17 at 09:00 Sucralfate (Carafate) 1 gm DAILY GTB Last administered on 08/08/17 08:52; Admin Dose 1 GM; Start 07/22/17 at 09:00 Tramadol HCl (Ultram) 100 mg DAILY GTB Last administered on 08/08/17 09:12; Admin Dose 100 MG; Start 07/22/17 at 09:00 Acetaminophen/ Hydrocodone Bitart ([place] (5/325)) 1 tab Q6H PRN GTB PAIN LEVEL 7-10; Start 07/22/17 at 05:30 Miscellaneous Information 1 ea NOTE XX ; Start 07/22/17 at 15:00 Glucose (Glutose) 15 gm Q15M PRN PO DECREASED GLUCOSE; Start 07/22/17 at 15:00 Glucose (Glutose) 22.5 gm Q15M PRN PO DECREASED GLUCOSE; Start 07/22/17 at 15: 00 Dextrose (D50w Syringe) 25 ml Q15M PRN IV DECREASED GLUCOSE; Start 07/22/17 at 15:00 Dextrose (D50w Syringe) 50 ml Q15M PRN IV DECREASED GLUCOSE; Start 07/22/17 at 15:00 Glucagon (Glucagen) 1 mg Q15M PRN IM DECREASED GLUCOSE; Start 07/22/17 at 15: 00 Glucose (Glutose) 15 gm Q15M PRN BUCCAL DECREASED GLUCOSE; Start 07/22/17 at 15:00 Linezolid (Zyvox) 600 mg BID PO Last administered on 08/08/17 08:52; Admin Dose 600 MG; Start 07/23/17 at 21:00 Fluconazole (Diflucan) 100 mg DAILY PO Last administered on 08/08/17 08:53; Admin Dose 100 MG; Start 07/25/17 at 09:00 Sodium Hypochlorite (Dakin'S (Dilute 1/40%)) 1 applic BID IRR Last administered on 08/08/17 08:54; Admin Dose 1 APPLIC; Start 07/26/17 at 21:00 Lansoprazole (Prevacid) 30 mg BID@06,18 PO Last administered on 08/08/17 06:09 ; Admin Dose 30 MG; Start 07/26/17 at 18:00 Zinc Sulfate (Zinc Sulfate) 220 mg DAILY GTB Last administered on 08/08/17 08: 52; Admin Dose 220 MG; Start 07/29/17 at 09:00 Ascorbic Acid (Vitamin C) 500 mg DAILY GTB Last administered on 08/08/17 08:52 ; Admin Dose 500 MG; Start 07/29/17 at 09:00 Collagenase (Santyl) 1 applic PRN PRN TOP PRN; Start 08/01/17 at 04:30 Collagenase 1 applic 1 applic DAILY TOP Last administered on 08/08/17 08:55; Admin Dose 1 APPLIC; Start 08/01/17 at 09:00 Colistimethate Sodium/Sodium Chloride (Coly-Mycin/NS) 100 ml @ 200 mls/hr Q24H IVPB Last administered on 08/08/17 08:59; Admin Dose 200 MLS/HR; Start at 09:00 Insulin Aspart (Novolog Insulin Pen) NOVOLOG *MILD* ALGORI... Q4 SC Last administered on 08/08/17 12:37; Admin Dose 3 UNIT; Start 08/04/17 at 17:00 Metoprolol Tartrate (Lopressor) 25 mg BID PO Last administered on 08/08/17 08: 52; Admin Dose 25 MG; Start 08/05/17 at 21:00 Insulin Aspart (Novolog Insulin Pen) 8 unit Q4 SC Last administered on 12:36; Admin Dose 8 UNIT; Start 08/06/17 at 17:00 Insulin Glargine (Lantus) 36 unit DAILY@20 SC Last administered on 08/07/17 22 :47; Admin Dose 36 UNIT; Start 08/07/17 at 20:00 ALIZA ANDRADE Aug 08, 2017 16:02
--- NOTE | 2017-08-08 17:07 | RADRPT ---
PROCEDURE: CT abdomen and pelvis without IV contrast. CLINICAL INDICATION: Abdominal pain TECHNIQUE: CT scan of the abdomen and pelvis without contrast was performed on the [employer] volumetric [address] scanner. The patient was scanned without intravenous contrast. Coronal and sagittal refo rmatted images were obtained from the axial source images. The CTDI vol is 13.09 mGy and the DLP is 674.25 mGy-cm. One or more of the following dose reduction techniques were used: Automated exposure control. Adjustment of the mA and/or kV according to patient size. Use of iterative reconstruction technique. COMPARISON: 12/15/2016 FINDINGS: CT abdomen: Bibasilar air space disease is seen. The remaining lung bases are clear. The heart size is not enla rged and is without pericardial thickening or effusion. The liver is normal in size and density and is without focal mass or intrahepatic biliary dilatation . The spleen is normal in size and homogeneous in density. A gastrostomy tube is once again seen. T he stomach is otherwise grossly unremarkable. The pancreas as visualized is normal. The gallbladde r and biliary tree are unremarkable and there is no evidence for common bile duct dilatation. The a drenal glands are symmetric and normal. The kidneys are normal in size. Again seen are bilateral st aghorn calculi which have not changed significantly. Small dependent calculi in the bilateral calyce s are once again seen, right greater than left. Mild bilateral perinephric soft tissue stranding is seen. No ureteral calculus or obstructive uropathy or mass lesion is seen. The aorta is of normal in caliber. Aortic calcifications are seen. Multiple enlarged lymph nodes in the retroperitoneum are once again seen with the largest lymph node seen in the left periaortic tessa on measuring 1.1 cm in short axis. In addition, prominent lymph nodes are also seen in the joceline hep atis. The large bowel is stool-filled. The rectosigmoid region is distended. Wall thickening in the distal sigmoid colon and rectum is once again seen. The small bile and mesentery, as visualized, ar e unremarkable. The normal appendix is identified. CT pelvis: The uterus is absent. The pelvic sidewalls and inguinal regions are clear. Multiple prominent lymp h nodes in the pelvis are seen with the largest seen along the left external iliac chain measuring 1 .1 cm cm in short axis and have not changed significantly. No pelvic mass delete the or free fluid i s seen. No acute inflammation is seen. The urinary bladder is decompressed by Joel catheter. Diffuse osteopenia is seen. Again seen is a compression fracture of the L1 and L3 superior endplate switch are mild in extent and are unchanged. And L2 compression fracture is seen which demonstrates approximately 25-35% height loss is new compared to the prior examination. Minimal retropulsion of t he posterior superior endplate is seen. No osteolytic or osteoblastic lesion is detected. IMPRESSION: 1. Bilateral staghorn calculi as well as dependent calyceal calculi again seen which has not change d significantly with bilateral perinephric soft tissue stranding. 2. Retroperitoneal and pelvic lymphadenopathy again seen which has not changed significantly in may be reactive in nature from an infectious/inflammatory process. The possibility of a neoplastic proc ess cannot be completely excluded. 3. Bibasilar air space disease which may represent atelectasis versus infiltrates. Continued chest x-ray follow-up is suggested. 4. Mild to moderate compression fracture of the L2 superior endplate which is new compared to the p rior examination and may be acute to subacute in nature. Consider correlation with an MRI of the lum bar spine determine the age of the fracture as clinically warranted. 5. Stool filled large bowel with distension of the rectosigmoid region with bowel wall thickening a nd has not changed significantly. RPTAT: HPNM Physician Batsheva Date Time Electronically viewed and signed by Physician Batsheva on 08/08/2017 17:07 /
--- NOTE | 2017-08-08 17:13 | CONS ---
Date/Time of Note Date/Time of Note DATE: 08/08/17 TIME: 17:09 Assessment/Plan Assessment/Plan Additional Assessment/Plan 1. Acute kidney injury due to ATN From sepsis + prerenal azotemia 2. Sepsis due to UTI 3. Chronic resp failure s/p Tracheostomy on ventilator 4/ Anemia of chronic disease 5/ HTN 6. UTI with Urine cx growing Gram negative rods Plan : s/p 1liter IVF Cr 1.63, Na 146, Ca 10.2- will give another 1 L NS today continue Tube feeding as ordered IV abx colimycin and PO zyvox, - also on PO Fluconazole- ID following, Urine cx grew Pseudomonas vent management as per pulmonary will follow up Consultation Date/Type/Reason Admit Date/Time Jul 21, 2017 at 23:24 Initial Consult Date 07/22/17 Type of Consultation: NEPHROLOGY Referring Provider: FLEX DENNISON CHIEF OF SURGERY Exam/Review of Systems Vital Signs Vitals Vital Signs Date Time Temp Pulse Resp B/P Pulse Ox O2 Delivery O2 Flow Rate FiO2 08/08/17 16:34 94 08/08/17 13:05 15 99 30 08/08/17 11:44 100.0 106/58 08/05/17 16:00 Mechanical Ventilator Intake and Output 08/07/17 08/07/17 08/08/17 15:00 23:00 07:00 Intake Total 895 ml Output Total 1000 ml Balance -105 ml Results Result Diagram: 08/08/17 0723 08/08/17 0723 Results 24 hrs Laboratory Tests Test 08/07/17 17:35 08/07/17 22:39 08/08/17 01:42 08/08/17 06:08 Bedside Glucose 192 235 H 216 206 Test 08/08/17 07:23 08/08/17 09:00 08/08/17 12:33 White Blood Count 7.8 Red Blood Count 3.53 L Hemoglobin 8.8 L Hematocrit 30.3 L Mean Corpuscular Volume 85.8 Mean Corpuscular Hemoglobin 24.9 L Mean Corpuscular Hemoglobin Concent 29.0 L Red Cell Distribution Width 19.1 H Platelet Count 315 Mean Platelet Volume 11.8 H Neutrophils % 72.3 Lymphocytes % 16.3 Monocytes % 5.8 Eosinophils % 4.2 Basophils % 0.1 Nucleated Red Blood Cells % 0.0 Neutrophils # 5.6 Lymphocytes # 1.3 Monocytes # 0.5 Eosinophils # 0.3 Basophils # 0.0 Nucleated Red Blood Cells # 0.0 Sodium Level 146 H Potassium Level 4.0 Chloride Level 109 Carbon Dioxide Level 22 Anion Gap 19 H Blood Urea Nitrogen 38 H Creatinine 1.63 H Glucose Level 186 Calcium Level 10.4 H Thyroid Stimulating Hormone (TSH) 0.991 Bedside Glucose 222 H 242 H Medications Medications Current Medications Miscellaneous Information (Pending Santyl Order For Wound Care) This patient stern... PRN PRN XX WOUND CARE; Start 07/22/17 at 03:30 Acetaminophen (Tylenol Tab) 650 mg Q4 PRN GTB ELEVATED TEMPERATURE Last administered on 08/08/17 12:35; Admin Dose 650 MG; Start 07/22/17 at 05:30 Baclofen (Lioresal) 20 mg TID GTB Last administered on 08/08/17 12:35; Admin Dose 20 MG; Start 07/22/17 at 09:00 Bisacodyl (Dulcolax Supp) 10 mg DAILY PRN [place] CONSTIPATION; Start 07/22/17 at 05:30 Docusate Sodium (Colace Liquid Cup) 100 mg BID GTB Last administered on 08:51; Admin Dose 100 MG; Start 07/22/17 at 09:00 Epoetin Andrey (Epogen (Esrd)) 15,000 units MoWeFr@17 SC Last administered on 16:40; Admin Dose 15,000 UNITS; Start 07/24/17 at 17:00 Magnesium Hydroxide (Milk Of Mag) 30 ml Q24H PRN PO CONSTIPATION; Start at 05:30 Magnesium Oxide (Mag-Ox 400) 800 mg DAILY GTB Last administered on 08/08/17 08 :52; Admin Dose 800 MG; Start 07/22/17 at 09:00 Metoclopramide HCl (Reglan) 10 mg BID GTB Last administered on 08/08/17 08:52 ; Admin Dose 10 MG; Start 07/22/17 at 09:00 Mineral Oil (Fleet Mineral Oil Enema) 133 ml DAILY PRN [place] CONSTIPATION; Start 07/22/17 at 05:30 Multivitamins Therapeutic (Theragran) 1 tab DAILY GTB Last administered on 08/08 08:52; Admin Dose 1 TAB; Start 07/22/17 at 09:00 Sucralfate (Carafate) 1 gm DAILY GTB Last administered on 08/08/17 08:52; Admin Dose 1 GM; Start 07/22/17 at 09:00 Tramadol HCl (Ultram) 100 mg DAILY GTB Last administered on 08/08/17 09:12; Admin Dose 100 MG; Start 07/22/17 at 09:00 Acetaminophen/ Hydrocodone Bitart ([place] (5/325)) 1 tab Q6H PRN GTB PAIN LEVEL 7-10; Start 07/22/17 at 05:30 Miscellaneous Information 1 ea NOTE XX ; Start 07/22/17 at 15:00 Glucose (Glutose) 15 gm Q15M PRN PO DECREASED GLUCOSE; Start 07/22/17 at 15:00 Glucose (Glutose) 22.5 gm Q15M PRN PO DECREASED GLUCOSE; Start 07/22/17 at 15: 00 Dextrose (D50w Syringe) 25 ml Q15M PRN IV DECREASED GLUCOSE; Start 07/22/17 at 15:00 Dextrose (D50w Syringe) 50 ml Q15M PRN IV DECREASED GLUCOSE; Start 07/22/17 at 15:00 Glucagon (Glucagen) 1 mg Q15M PRN IM DECREASED GLUCOSE; Start 07/22/17 at 15: 00 Glucose (Glutose) 15 gm Q15M PRN BUCCAL DECREASED GLUCOSE; Start 07/22/17 at 15:00 Linezolid (Zyvox) 600 mg BID PO Last administered on 08/08/17 08:52; Admin Dose 600 MG; Start 07/23/17 at 21:00 Fluconazole (Diflucan) 100 mg DAILY PO Last administered on 08/08/17 08:53; Admin Dose 100 MG; Start 07/25/17 at 09:00 Sodium Hypochlorite (Dakin'S (Dilute 1/40%)) 1 applic BID IRR Last administered on 08/08/17 08:54; Admin Dose 1 APPLIC; Start 07/26/17 at 21:00 Lansoprazole (Prevacid) 30 mg BID@06,18 PO Last administered on 08/08/17 06:09 ; Admin Dose 30 MG; Start 07/26/17 at 18:00 Zinc Sulfate (Zinc Sulfate) 220 mg DAILY GTB Last administered on 08/08/17 08: 52; Admin Dose 220 MG; Start 07/29/17 at 09:00 Ascorbic Acid (Vitamin C) 500 mg DAILY GTB Last administered on 08/08/17 08:52 ; Admin Dose 500 MG; Start 07/29/17 at 09:00 Collagenase (Santyl) 1 applic PRN PRN TOP PRN; Start 08/01/17 at 04:30 Collagenase 1 applic 1 applic DAILY TOP Last administered on 08/08/17 08:55; Admin Dose 1 APPLIC; Start 08/01/17 at 09:00 Colistimethate Sodium/Sodium Chloride (Coly-Mycin/NS) 100 ml @ 200 mls/hr Q24H IVPB Last administered on 08/08/17 08:59; Admin Dose 200 MLS/HR; Start at 09:00 Insulin Aspart (Novolog Insulin Pen) NOVOLOG *MILD* ALGORI... Q4 SC Last administered on 08/08/17 12:37; Admin Dose 3 UNIT; Start 08/04/17 at 17:00 Metoprolol Tartrate (Lopressor) 25 mg BID PO Last administered on 08/08/17 08: 52; Admin Dose 25 MG; Start 08/05/17 at 21:00 Insulin Glargine (Lantus) 40 unit DAILY@20 SC ; Start 08/08/17 at 20:00 LIZETTE ALEX MD Aug 08, 2017 17:13
[2017-08-08] MEDS ORDERED: SOD CHLORIDE 0.9% 1,000 ML IV SCH (17:30)
[2017-08-08] MEDS ORDERED: INSULIN GLARGINE [LANtus] 3 ML PEN SC SCH (20:00)
[2017-08-09] VITALS (25 sets, daily range): BP systolic 82–110; BP diastolic 50–67; PULSE 87–120; RESP 11–20
[2017-08-09] MEDS: INSULIN ASPART [NOVOLOG] 3 ML PEN SC SCH ×6 (01:42→20:41)
[2017-08-09] MEDS: LANSOPRAZOLE 30 MG CAP PO SCH ×2 (06:26→17:45)
[2017-08-09 08:23] LABS: ABNORMAL IP MESSAGE 1; BASOPHILS % 0.3 % (0.0-2.0); EOSINOPHILS # 0.3 10^3/ul (0.0-0.5); EOSINOPHILS % 4.5 % (0.0-7.0); HEMOGLOBIN 7.7 g/dl (12.0-16.0); LYMPHOCYTES # 1.1 10^3/ul (0.8-2.9); LYMPHOCYTES % 15.8 % (15.0-51.0); MEAN CORPUSCULAR HEMOGLOBIN 24.4 pg (29.0-33.0); MEAN CORPUSCULAR HGB CONC 28.5 g/dl (32.0-37.0); MEAN CORPUSCULAR VOLUME 85.7 fl (82.0-101.0); MEAN PLATELET VOLUME 11.3 fl (7.4-10.4); MONOCYTE # 0.5 10^3/ul (0.3-0.9); MONOCYTES % 6.5 % (0.0-11.0); NEUTROPHILS % 71.5 % (39.0-77.0); PLATELET COUNT 281 10^3/UL (140-415); RED BLOOD COUNT 3.15 10^6/ul (4.20-5.40); RED CELL DISTRIBUTION WIDTH 19.1 % (11.5-14.5)
[2017-08-09 08:26] LABS: POSITIVE DIFF @See below
[2017-08-09 08:45] LABS: CALCIUM 10.7 mg/dl (8.4-10.2); CREATININE 1.87 mg/dl (0.44-1.00); POTASSIUM 3.7 mmol/L (3.5-5.1)
[2017-08-09] MEDS: MULTIVITAMINS THERAPEUTIC TAB GTB SCH (09:08)
[2017-08-09] MEDS: DOCUSATE SODIUM 10 MG/ML (10ML CUP) GTB SCH ×2 (09:08→20:46)
[2017-08-09] MEDS: METOCLOPRAMIDE 10 MG TAB GTB SCH ×2 (09:08→20:45)
[2017-08-09] MEDS: SUCRALFATE 1 GM TAB GTB SCH ×2 (09:09→20:43)
[2017-08-09] MEDS: traMADol 50 MG TAB GTB SCH (09:09)
[2017-08-09] MEDS: ZYVOX 600 MG TAB PO SCH ×2 (09:09→20:45)
[2017-08-09] MEDS: FLUCONAZOLE 100 MG TAB PO SCH (09:09)
[2017-08-09] MEDS: MAGNESIUM OXIDE 400 MG TAB GTB SCH (09:09)
[2017-08-09] MEDS: ZINC SULFATE 220 MG CAP GTB SCH (09:09)
[2017-08-09] MEDS: COLLAGENASE 30 GM TUBE TOP SCH (09:10)
[2017-08-09] MEDS: SODIUM HYPOCHLORITE 1/40% 1L IRRIG IRR SCH ×2 (09:10→20:45)
[2017-08-09] MEDS: METOPROLOL 25 MG TAB PO SCH (09:10)
[2017-08-09] MEDS: BACLOFEN 10 MG TAB GTB SCH ×3 (09:10→20:44)
[2017-08-09] MEDS: ASCORBIC ACID 500 MG TAB GTB SCH (09:10)
[2017-08-09] MEDS: COLISTIMETHATE 135 MG in SOD CHLORIDE 0.9% 100 ML IVPB SCH (09:18)
--- NOTE | 2017-08-09 09:18 | RADRPT ---
PROCEDURE: MR PELVIS CLINICAL INDICATION: Evaluate for osteomyelitis. TECHNIQUE: MRI of the pelvis was performed utilizing multiple sequences in multiple planes. Image s were reviewed on a high-resolution PACS workstation. COMPARISON: Same day CT abdomen/pelvis and CT abdomen/pelvis from 12/15/2016 FINDINGS: There are decubitus ulcers over the bilateral ischial tuberosities which extend adjacent to the bone , left larger than right, as seen on the prior study. There are bony destructive changes with abnorm al dark T1 signal and bone marrow edema within the ischium bilaterally extending into the posterior acetabulum on the right and anterior / posterior acetabulum and superior pubic ramus on the left in keeping with chronic osteomyelitis. There is also abnormal marrow signal within the left femoral nec k with bone marrow edema and a [id number] joint effusion with synovitis from extension of the osteomyelitis into the left hip joint with septic arthritis. There is no acute fracture or avascular necrosis within both hips. There is high-grade chondral loss in part to bone within the left hip with slight protrusio acetabuli. There is partial thickness cho ndral loss within the right hip but no significant joint effusion. There is a small amount of edema and fluid adjacent to the posterior acetabulum/hip joint on the right. There is edema within the mus cles surrounding the left hip joint including the adductor, gluteus minimus, and obturator internus. There is no evidence of osteomyelitis within the sacrum or coccyx which are intact. The bilateral sa croiliac joints are intact with mild osseous spurring and joint space narrowing. There is mild to moderate fatty atrophy of the muscles around both hips and pelvis. There is no evid ence for a drainable abscess. There is partial tearing of the bilateral hamstring origin tendons, le ft greater than right. The pubic symphysis is intact. The adductor muscles and adductor tendon origins are intact. There is a heterogeneous appearance of the bone marrow within the remainder of the hip and pelvis wh ich may be from osteoporosis. A large amount of stool is visualized within the colon with distension of the colon. Please see CT a bdomen/pelvis of the same day for additional details of the abdomen/pelvis. RPTAT: ZZ IMPRESSION: 1. Decubitus ulcers over the bilateral ischial tuberosities, left larger than right with chronic ost eomyelitis involving the right ischium and posterior acetabulum and left ischium, anterior/posterior acetabulum, superior pubic ramus, and femoral neck with a [id number] joint effusion and syno vitis in keeping with developing left hip septic arthritis. 2. Osteoarthrosis of the left greater than right hip joints with partial thickness chondral loss in part to bone. .Carolyn Foster MD, MD Date Time Electronically viewed and signed by .Carolyn Foster MD, on 08/09/2017 09:18 .T/
--- NOTE | 2017-08-09 10:02 | CONS ---
Date/Time of Note Date/Time of Note DATE: 08/09/17 TIME: 09:59 Consult Date/Type/Reason Admit Date/Time Jul 21, 2017 at 23:24 Initial Consult Date 07/22/17 Type of Consultation: Pulmonary Ordering Provider: FLEX DENNISON NP Subjective Patient comfortable this morning. No new events Objective Vital Signs Date Time Temp Pulse Resp B/P Pulse Ox O2 Delivery O2 Flow Rate FiO2 08/09/17 09:35 108 14 100 30 08/09/17 07:52 99.1 110/67 08/05/17 16:00 Mechanical Ventilator Intake and Output 08/08/17 08/08/17 08/09/17 15:00 23:00 07:00 Intake Total 960 ml 890 ml Output Total 850 ml 1000 ml Balance 110 ml -110 ml Exam PHYSICAL EXAMINATION GENERAL: Chronically ill-appearing lady on mechanical ventilation VITAL SIGNS: see below. HEENT: Pupils equal, round, and reactive to light. Tracheostomy site clean and intact. CARDIAC: S1, S2, 1/6 systolic ejection murmur CHEST: Diminished air entry bilaterally. ABDOMEN: Mildly distended. Bowel sounds present no guarding or rebound EXTREMITIES: No cyanosis, clubbing edema +1 NEUROLOGIC: Generalized weakness Results/Medications Result Diagram: 08/09/17 0756 08/09/17 [address] abdomen and pelvis IMPRESSION: 1. Bilateral staghorn calculi as well as dependent calyceal calculi again seen which has not changed significantly with bilateral perinephric soft tissue stranding. 2. Retroperitoneal and pelvic lymphadenopathy again seen which has not changed significantly in may be reactive in nature from an infectious/inflammatory process. The possibility of a neoplastic process cannot be completely excluded. 3. Bibasilar air space disease which may represent atelectasis versus infiltrates. Continued chest x-ray follow-up is suggested. 4. Mild to moderate compression fracture of the L2 superior endplate which is new compared to the prior examination and may be acute to subacute in nature. Consider correlation with an MRI of the lumbar spine determine the age of the fracture as clinically warranted. 5. Stool filled large bowel with distension of the rectosigmoid region with bowel wall thickening and has not changed significantly. Laboratory Tests Test 08/08/17 12:33 08/08/17 17:36 08/08/17 21:08 08/09/17 01:37 Bedside Glucose 242 H 187 229 H 271 H Test 08/09/17 05:43 08/09/17 07:56 08/09/17 09:20 Bedside Glucose 276 H 247 H White Blood Count 7.0 Red Blood Count 3.15 L Hemoglobin 7.7 L Hematocrit 27.0 L Mean Corpuscular Volume 85.7 Mean Corpuscular Hemoglobin 24.4 L Mean Corpuscular Hemoglobin Concent 28.5 L Red Cell Distribution Width 19.1 H Platelet Count 281 Mean Platelet Volume 11.3 H Neutrophils % 71.5 Lymphocytes % 15.8 Monocytes % 6.5 Eosinophils % 4.5 Basophils % 0.3 Nucleated Red Blood Cells % 0.0 Neutrophils # 5.0 Lymphocytes # 1.1 Monocytes # 0.5 Eosinophils # 0.3 Basophils # 0.0 Nucleated Red Blood Cells # 0.0 Sodium Level 145 H Potassium Level 3.7 Chloride Level 109 Carbon Dioxide Level 22 Anion Gap 18 H Blood Urea Nitrogen 44 H Creatinine 1.87 H Glucose Level 247 H Calcium Level 10.7 H Medications Current Medications Miscellaneous Information (Pending [facility] Order For Wound Care) This patient stern... PRN PRN XX WOUND CARE; Start 07/22/17 at 03:30 Acetaminophen (Tylenol Tab) 650 mg Q4 PRN GTB ELEVATED TEMPERATURE Last administered on 08/08/17 12:35; Admin Dose 650 MG; Start 07/22/17 at 05:30 Baclofen (Lioresal) 20 mg TID GTB Last administered on 08/08/17 21:10; Admin Dose 20 MG; Start 07/22/17 at 09:00 Bisacodyl (Dulcolax Supp) 10 mg DAILY PRN [place] CONSTIPATION; Start 07/22/17 at 05:30 Docusate Sodium (Colace Liquid Cup) 100 mg BID GTB Last administered on 21:09; Admin Dose 100 MG; Start 07/22/17 at 09:00 Epoetin Andrey (Epogen (Esrd)) 15,000 units MoWeFr@17 SC Last administered on 16:40; Admin Dose 15,000 UNITS; Start 07/24/17 at 17:00 Magnesium Hydroxide (Milk Of Mag) 30 ml Q24H PRN PO CONSTIPATION; Start at 05:30 Magnesium Oxide (Mag-Ox 400) 800 mg DAILY GTB Last administered on 08/08/17 08 :52; Admin Dose 800 MG; Start 07/22/17 at 09:00 Metoclopramide HCl (Reglan) 10 mg BID GTB Last administered on 08/08/17 21:10 ; Admin Dose 10 MG; Start 07/22/17 at 09:00 Mineral Oil (Fleet Mineral Oil Enema) 133 ml DAILY PRN [place] CONSTIPATION; Start 07/22/17 at 05:30 Multivitamins Therapeutic (Theragran) 1 tab DAILY GTB Last administered on 08/08 08:52; Admin Dose 1 TAB; Start 07/22/17 at 09:00 Sucralfate (Carafate) 1 gm DAILY GTB Last administered on 08/08/17 08:52; Admin Dose 1 GM; Start 07/22/17 at 09:00 Tramadol HCl (Ultram) 100 mg DAILY GTB Last administered on 08/08/17 09:12; Admin Dose 100 MG; Start 07/22/17 at 09:00 Acetaminophen/ Hydrocodone Bitart ([place] (5/325)) 1 tab Q6H PRN GTB PAIN LEVEL 7-10; Start 07/22/17 at 05:30 Miscellaneous Information 1 ea NOTE XX ; Start 07/22/17 at 15:00 Glucose (Glutose) 15 gm Q15M PRN PO DECREASED GLUCOSE; Start 07/22/17 at 15:00 Glucose (Glutose) 22.5 gm Q15M PRN PO DECREASED GLUCOSE; Start 07/22/17 at 15: 00 Dextrose (D50w Syringe) 25 ml Q15M PRN IV DECREASED GLUCOSE; Start 07/22/17 at 15:00 Dextrose (D50w Syringe) 50 ml Q15M PRN IV DECREASED GLUCOSE; Start 07/22/17 at 15:00 Glucagon (Glucagen) 1 mg Q15M PRN IM DECREASED GLUCOSE; Start 07/22/17 at 15: 00 Glucose (Glutose) 15 gm Q15M PRN BUCCAL DECREASED GLUCOSE; Start 07/22/17 at 15:00 Linezolid (Zyvox) 600 mg BID PO Last administered on 08/08/17 21:10; Admin Dose 600 MG; Start 07/23/17 at 21:00 Fluconazole (Diflucan) 100 mg DAILY PO Last administered on 08/08/17 08:53; Admin Dose 100 MG; Start 07/25/17 at 09:00 Sodium Hypochlorite (Dakin'S (Dilute 1/40%)) 1 applic BID IRR Last administered on 08/08/17 21:12; Admin Dose 1 APPLIC; Start 07/26/17 at 21:00 Lansoprazole (Prevacid) 30 mg BID@06,18 PO Last administered on 08/09/17 06:26 ; Admin Dose 30 MG; Start 07/26/17 at 18:00 Zinc Sulfate (Zinc Sulfate) 220 mg DAILY GTB Last administered on 08/08/17 08: 52; Admin Dose 220 MG; Start 07/29/17 at 09:00 Ascorbic Acid (Vitamin C) 500 mg DAILY GTB Last administered on 08/08/17 08:52 ; Admin Dose 500 MG; Start 07/29/17 at 09:00 Collagenase (Santyl) 1 applic PRN PRN TOP PRN; Start 08/01/17 at 04:30 Collagenase 1 applic 1 applic DAILY TOP Last administered on 08/08/17 08:55; Admin Dose 1 APPLIC; Start 08/01/17 at 09:00 Colistimethate Sodium/Sodium Chloride (Coly-Mycin/NS) 100 ml @ 200 mls/hr Q24H IVPB Last administered on 08/08/17 08:59; Admin Dose 200 MLS/HR; Start at 09:00 Insulin Aspart (Novolog Insulin Pen) NOVOLOG *MILD* ALGORI... Q4 SC Last administered on 08/09/17 06:23; Admin Dose 4 UNIT; Start 08/04/17 at 17:00 Metoprolol Tartrate (Lopressor) 25 mg BID PO Last administered on 08/08/17 08: 52; Admin Dose 25 MG; Start 08/05/17 at 21:00 Insulin Glargine (Lantus) 40 unit DAILY@20 SC Last administered on 08/08/17 21 :42; Admin Dose 40 UNIT; Start 08/08/17 at 20:00 Assessment/Plan Chief Complaint/Hosp Course Additional Assessment/Plan IMP: 1. Anemia--likely of chronic disease. 2. Urosepsis no calculi noted. 3. VDRF 4. Encephalopathy RECS: 1. Vent support 2. BD's/CPT 3. Abx per ID 4. GIB w/u per GI Pending transfer to [facility]. Problems: ULYSSES FORRESTER MD, [facility] Aug 09, 2017 10:02
[2017-08-09] MEDS: ACETAMINOPHEN 325 MG TAB GTB PRN (12:34)
--- NOTE | 2017-08-09 13:35 | CONS ---
Date/Time of Note Date/Time of Note DATE: 08/09/17 TIME: 13:31 Assessment/Plan Assessment/Plan Chief Complaint/Hosp Course 1. Sinus tachycardia-overall improved on BB/NL EF by echo. Also likely driven by fevers. NL TSH 2. High fevers. 3. Urosepsis. 4. Acute kidney injury. 5. Ventilator dependent respiratory failure. 6. Anemia of chronic disease. 7.DM Recc: -Tele -Continue abx's and f/u cx data -Continue BB but will change to atenolol for possible increased effiacacy -Follow volume status closely -Follow BS closely Problems: Consultation Date/Type/Reason Admit Date/Time Jul 21, 2017 at 23:24 Initial Consult Date 07/26/17 Type of Consultation: cardiology Reason for Consultation tachycardia Referring Provider: FLEX DENNISON [employer] MANAGER Exam/Review of Systems Vital Signs Vitals Vital Signs Date Time Temp Pulse Resp B/P Pulse Ox O2 Delivery O2 Flow Rate FiO2 08/09/17 12:51 110 11 100 30 08/09/17 11:40 100.9 92/50 08/05/17 16:00 Mechanical Ventilator Intake and Output 08/08/17 08/08/17 08/09/17 15:00 23:00 07:00 Intake Total 960 ml 890 ml Output Total 850 ml 1000 ml Balance 110 ml -110 ml Exam Review of Systems: CONSTITUTIONAL: No fevers, chills. PULMONARY: trached CARDIOVASCULAR: No chest pain/palpitations GASTROINTESTINAL: No nausea/vomiting. GENITOURINARY: No hematuria/dysuria. MUSCULOSKELETAL: No myagias/arthalgias. PSYCHIATRIC: The patient denies depression. NEUROLOGIC: encephalopathy Constitutional: other (encephalopathic) Psych: no complaints Head: normocephalic ENMT: mucosa pink and moist Neck: jvd (9 cm water), supple Respiratory: diminished breath sounds Cardiovascular: other (tachycardic, regular rhythm) Gastrointestinal: non-tender, soft Musculoskeletal: muscle tone (normal) Extremities: edema (none) Neurological: other (encephalopathic) Results Result Diagram: 08/09/17 0756 08/09/17 0756 Results 24 hrs Laboratory Tests Test 08/08/17 17:36 08/08/17 21:08 08/09/17 01:37 08/09/17 05:43 Bedside Glucose 187 229 H 271 H 276 H Test 08/09/17 07:56 08/09/17 09:20 08/09/17 12:34 White Blood Count 7.0 Red Blood Count 3.15 L Hemoglobin 7.7 L Hematocrit 27.0 L Mean Corpuscular Volume 85.7 Mean Corpuscular Hemoglobin 24.4 L Mean Corpuscular Hemoglobin Concent 28.5 L Red Cell Distribution Width 19.1 H Platelet Count 281 Mean Platelet Volume 11.3 H Neutrophils % 71.5 Lymphocytes % 15.8 Monocytes % 6.5 Eosinophils % 4.5 Basophils % 0.3 Nucleated Red Blood Cells % 0.0 Neutrophils # 5.0 Lymphocytes # 1.1 Monocytes # 0.5 Eosinophils # 0.3 Basophils # 0.0 Nucleated Red Blood Cells # 0.0 Sodium Level 145 H Potassium Level 3.7 Chloride Level 109 Carbon Dioxide Level 22 Anion Gap 18 H Blood Urea Nitrogen 44 H Creatinine 1.87 H Glucose Level 247 H Calcium Level 10.7 H Bedside Glucose 247 H 253 H Medications Medications Current Medications Miscellaneous Information (Pending [facility] Order For Wound Care) This patient stern... PRN PRN XX WOUND CARE; Start 07/22/17 at 03:30 Acetaminophen (Tylenol Tab) 650 mg Q4 PRN GTB ELEVATED TEMPERATURE Last administered on 08/09/17 12:34; Admin Dose 650 MG; Start 07/22/17 at 05:30 Baclofen (Lioresal) 20 mg TID GTB Last administered on 08/09/17 12:34; Admin Dose 20 MG; Start 07/22/17 at 09:00 Bisacodyl (Dulcolax Supp) 10 mg DAILY PRN [place] CONSTIPATION; Start 07/22/17 at 05:30 Docusate Sodium (Colace Liquid Cup) 100 mg BID GTB Last administered on 09:08; Admin Dose 100 MG; Start 07/22/17 at 09:00 Epoetin Andrey (Epogen (Esrd)) 15,000 units MoWeFr@17 SC Last administered on 16:40; Admin Dose 15,000 UNITS; Start 07/24/17 at 17:00 Magnesium Hydroxide (Milk Of Mag) 30 ml Q24H PRN PO CONSTIPATION; Start at 05:30 Magnesium Oxide (Mag-Ox 400) 800 mg DAILY GTB Last administered on 08/09/17 09 :09; Admin Dose 800 MG; Start 07/22/17 at 09:00 Metoclopramide HCl (Reglan) 10 mg BID GTB Last administered on 08/09/17 09:08 ; Admin Dose 10 MG; Start 07/22/17 at 09:00 Mineral Oil (Fleet Mineral Oil Enema) 133 ml DAILY PRN [place] CONSTIPATION; Start 07/22/17 at 05:30 Multivitamins Therapeutic (Theragran) 1 tab DAILY GTB Last administered on 08/09 09:08; Admin Dose 1 TAB; Start 07/22/17 at 09:00 Sucralfate (Carafate) 1 gm DAILY GTB Last administered on 08/09/17 09:09; Admin Dose 1 GM; Start 07/22/17 at 09:00 Tramadol HCl (Ultram) 100 mg DAILY GTB Last administered on 08/09/17 09:09; Admin Dose 100 MG; Start 07/22/17 at 09:00 Acetaminophen/ Hydrocodone Bitart ([place] (5/325)) 1 tab Q6H PRN GTB PAIN LEVEL 7-10; Start 07/22/17 at 05:30 Miscellaneous Information 1 ea NOTE XX ; Start 07/22/17 at 15:00 Glucose (Glutose) 15 gm Q15M PRN PO DECREASED GLUCOSE; Start 07/22/17 at 15:00 Glucose (Glutose) 22.5 gm Q15M PRN PO DECREASED GLUCOSE; Start 07/22/17 at 15: 00 Dextrose (D50w Syringe) 25 ml Q15M PRN IV DECREASED GLUCOSE; Start 07/22/17 at 15:00 Dextrose (D50w Syringe) 50 ml Q15M PRN IV DECREASED GLUCOSE; Start 07/22/17 at 15:00 Glucagon (Glucagen) 1 mg Q15M PRN IM DECREASED GLUCOSE; Start 07/22/17 at 15: 00 Glucose (Glutose) 15 gm Q15M PRN BUCCAL DECREASED GLUCOSE; Start 07/22/17 at 15:00 Linezolid (Zyvox) 600 mg BID PO Last administered on 08/09/17 09:09; Admin Dose 600 MG; Start 07/23/17 at 21:00 Fluconazole (Diflucan) 100 mg DAILY PO Last administered on 08/09/17 09:09; Admin Dose 100 MG; Start 07/25/17 at 09:00 Sodium Hypochlorite (Dakin'S (Dilute 1/40%)) 1 applic BID IRR Last administered on 08/09/17 09:10; Admin Dose 1 APPLIC; Start 07/26/17 at 21:00 Lansoprazole (Prevacid) 30 mg BID@06,18 PO Last administered on 08/09/17 06:26 ; Admin Dose 30 MG; Start 07/26/17 at 18:00 Zinc Sulfate (Zinc Sulfate) 220 mg DAILY GTB Last administered on 08/09/17 09: 09; Admin Dose 220 MG; Start 07/29/17 at 09:00 Ascorbic Acid (Vitamin C) 500 mg DAILY GTB Last administered on 08/09/17 09:10 ; Admin Dose 500 MG; Start 07/29/17 at 09:00 Collagenase (Santyl) 1 applic PRN PRN TOP PRN; Start 08/01/17 at 04:30 Collagenase 1 applic 1 applic DAILY TOP Last administered on 08/09/17 09:10; Admin Dose 1 APPLIC; Start 08/01/17 at 09:00 Colistimethate Sodium/Sodium Chloride (Coly-Mycin/NS) 100 ml @ 200 mls/hr Q24H IVPB Last administered on 08/09/17 09:18; Admin Dose 200 MLS/HR; Start at 09:00 Insulin Aspart (Novolog Insulin Pen) NOVOLOG *MILD* ALGORI... Q4 SC Last administered on 08/09/17 12:38; Admin Dose 3 UNIT; Start 08/04/17 at 17:00 Metoprolol Tartrate (Lopressor) 25 mg BID PO Last administered on 08/09/17 09: 10; Admin Dose 25 MG; Start 08/05/17 at 21:00 Insulin Glargine (Lantus) 50 unit DAILY@20 SC ; Start 08/09/17 at 20:00 SOFIE PLATA 8, 2017 13:35
--- NOTE | 2017-08-09 13:38 | PN ---
Date/Time of Note Date/Time of Note DATE: 08/09/17 TIME: 10:18 Assessment/Plan Lines/Catheters IV Catheter Type (from Nrs): Mid Line Joel in Place (from Nrs): Yes Assessment/Plan Chief Complaint/Hosp Course 1. Multiple wound: 2/2 immobility; cultures noted: s/p debridement; MRI with osteo and septic arthritis, synovitis -debridement prn -local care-bid -frequent turning and off-loading -low air loss mattress -vitamin c -short term zinc -optimize nutrition -recommend ortho consult 2. Hypochromic anemia: no acute bleed noted -monitor -transfuse as needed 3. UTI: cultures noted -abx per sensitivity -frequent bladder emptying/cath care 4. VDRF -pulm toilet -respiratory treatments 5. Fevers and tachycardia: likely 2/2 #3, 1, tsh nl -as above -mri to evaluate for osteo-pending Thank you. Patient seen and examined in collaboration with Dr. Hi High. Problems: Subjective 24 Hr Interval Summary Tachycardia improved. Min temps. MRI and CT noted. No sz, rash, diarrhea, new wounds, excessive wound drainage.TF continued. Exam/Review of Systems Vital Signs Vitals Vital Signs Date Time Temp Pulse Resp B/P Pulse Ox O2 Delivery O2 Flow Rate FiO2 08/09/17 09:35 108 14 100 30 08/09/17 07:52 99.1 110/67 08/05/17 16:00 Mechanical Ventilator Intake and Output 08/08/17 08/08/17 08/09/17 15:00 23:00 07:00 Intake Total 960 ml 890 ml Output Total 850 ml 1000 ml Balance 110 ml -110 ml Exam Free Text/Dictation Constitutional: alert, other (nonverbal) Head: atraumatic, normocephalic Eyes: nl lids, nl sclera, No icteric ENMT: mucosa pink and moist, nl nasal mucosa & septum Neck: non-tender, other (trach), supple Respiratory: other (vent), No labored breathing Cardiovascular: regular rate and rhythm: Gastrointestinal: non-tender, other (peg; umbilical hernia, rotund), soft Extremities: normal pulses, other (stiffness) Neurological: other (withdraws from painful stimuli) Skin: other (multiple wounds: packed, min drainage) Results Result Diagram: 08/09/17 0756 08/09/17 0756 SANFORD RODRIGUEZ NP Aug 09, 2017 10:28
[2017-08-09] MEDS ORDERED: SOD CHLORIDE 0.9% 250 ML IV ONE (17:00)
[2017-08-09] MEDS ORDERED: SOD CHLORIDE 0.9% 250 ML IV* ONE (17:08)
--- NOTE | 2017-08-09 17:08 | PN ---
Date/Time of Note Date/Time of Note DATE: 08/09/17 TIME: 17:05 Assessment/Plan VTE Prophylaxis VTE Prophylaxis Intervention: SCD's Lines/Catheters IV Catheter Type (from Nrs): Mid Line Urinary Cath still in place: Yes Reason Cath still needed: urinary retention Assessment/Plan Chief Complaint/Hosp Course Patient continues to spike fever, Assessment/Plan -Sepsis secondary to UTI, possible pneumonia, infected wounds, osteo,septic arthritis, synovitis. Continue antibiotics per ID . Dr. Zavaleta is following in infection disease consultation. -Multiple decubitus ulcer with posterior and possible septic arthritis, status post sacral wound debridement on 08/04. Dr. High is following in general surgery consultation. Continue antibiotics per ID. -Anemia of chronic disease, continue Epogen. Dr. Ruiz is following in gastroenterology consultation. -Diabetes mellitus, continue Lantus and NovoLog per sliding scale with Accu- Chek every 4 hours. -Advanced multiple sclerosis -Ventilator dependent respiratory failure. Dr. Blackwell is following in pulmonology consultation. -Dysphagia with PEG -Acute on chronic encephalopathy. Further recommendations based on clinical course. Plan of care discussed with Dr. Taylor. Problems: Exam/Review of Systems Vital Signs Vitals Vital Signs Date Time Temp Pulse Resp B/P Pulse Ox O2 Delivery O2 Flow Rate FiO2 08/09/17 16:45 98.8 85 20 82/50 100 08/09/17 16:40 30 08/05/17 16:00 Mechanical Ventilator Intake and Output 08/08/17 08/08/17 08/09/17 14:59 22:59 06:59 Intake Total 960 ml 890 ml Output Total 850 ml 1000 ml Balance 110 ml -110 ml Exam Constitutional: non-verbal Neck: other (Tracheostomy) Respiratory: diminished breath sounds Cardiovascular: nl pulses Gastrointestinal: non-tender, other (G-tube), soft Musculoskeletal: muscle weakness Neurological: confused Skin: other (Multiple wounds) Results Result Diagram: 08/09/17 0756 08/09/17 0756 Results 24 hrs Laboratory Tests Test 08/08/17 17:36 08/08/17 21:08 08/09/17 01:37 08/09/17 05:43 Bedside Glucose 187 229 H 271 H 276 H Test 08/09/17 07:56 08/09/17 09:20 08/09/17 12:34 White Blood Count 7.0 Red Blood Count 3.15 L Hemoglobin 7.7 L Hematocrit 27.0 L Mean Corpuscular Volume 85.7 Mean Corpuscular Hemoglobin 24.4 L Mean Corpuscular Hemoglobin Concent 28.5 L Red Cell Distribution Width 19.1 H Platelet Count 281 Mean Platelet Volume 11.3 H Neutrophils % 71.5 Lymphocytes % 15.8 Monocytes % 6.5 Eosinophils % 4.5 Basophils % 0.3 Nucleated Red Blood Cells % 0.0 Neutrophils # 5.0 Lymphocytes # 1.1 Monocytes # 0.5 Eosinophils # 0.3 Basophils # 0.0 Nucleated Red Blood Cells # 0.0 Sodium Level 145 H Potassium Level 3.7 Chloride Level 109 Carbon Dioxide Level 22 Anion Gap 18 H Blood Urea Nitrogen 44 H Creatinine 1.87 H Glucose Level 247 H Calcium Level 10.7 H Bedside Glucose 247 H 253 H Medications Medications Current Medications Miscellaneous Information (Pending Santyl Order For Wound Care) This patient stern... PRN PRN XX WOUND CARE; Start 07/22/17 at 03:30 Acetaminophen (Tylenol Tab) 650 mg Q4 PRN GTB ELEVATED TEMPERATURE Last administered on 08/09/17 12:34; Admin Dose 650 MG; Start 07/22/17 at 05:30 Baclofen (Lioresal) 20 mg TID GTB Last administered on 08/09/17 12:34; Admin Dose 20 MG; Start 07/22/17 at 09:00 Bisacodyl (Dulcolax Supp) 10 mg DAILY PRN [place] CONSTIPATION; Start 07/22/17 at 05:30 Docusate Sodium (Colace Liquid Cup) 100 mg BID GTB Last administered on 09:08; Admin Dose 100 MG; Start 07/22/17 at 09:00 Epoetin Andrey (Epogen (Esrd)) 15,000 units MoWeFr@17 SC Last administered on 16:40; Admin Dose 15,000 UNITS; Start 07/24/17 at 17:00 Magnesium Hydroxide (Milk Of Mag) 30 ml Q24H PRN PO CONSTIPATION; Start at 05:30 Magnesium Oxide (Mag-Ox 400) 800 mg DAILY GTB Last administered on 08/09/17 09 :09; Admin Dose 800 MG; Start 07/22/17 at 09:00 Metoclopramide HCl (Reglan) 10 mg BID GTB Last administered on 08/09/17 09:08 ; Admin Dose 10 MG; Start 07/22/17 at 09:00 Mineral Oil (Fleet Mineral Oil Enema) 133 ml DAILY PRN [place] CONSTIPATION; Start 07/22/17 at 05:30 Multivitamins Therapeutic (Theragran) 1 tab DAILY GTB Last administered on 08/09 09:08; Admin Dose 1 TAB; Start 07/22/17 at 09:00 Sucralfate (Carafate) 1 gm DAILY GTB Last administered on 08/09/17 09:09; Admin Dose 1 GM; Start 07/22/17 at 09:00 Tramadol HCl (Ultram) 100 mg DAILY GTB Last administered on 08/09/17 09:09; Admin Dose 100 MG; Start 07/22/17 at 09:00 Acetaminophen/ Hydrocodone Bitart ([place] (5/325)) 1 tab Q6H PRN GTB PAIN LEVEL 7-10; Start 07/22/17 at 05:30 Miscellaneous Information 1 ea NOTE XX ; Start 07/22/17 at 15:00 Glucose (Glutose) 15 gm Q15M PRN PO DECREASED GLUCOSE; Start 07/22/17 at 15:00 Glucose (Glutose) 22.5 gm Q15M PRN PO DECREASED GLUCOSE; Start 07/22/17 at 15: 00 Dextrose (D50w Syringe) 25 ml Q15M PRN IV DECREASED GLUCOSE; Start 07/22/17 at 15:00 Dextrose (D50w Syringe) 50 ml Q15M PRN IV DECREASED GLUCOSE; Start 07/22/17 at 15:00 Glucagon (Glucagen) 1 mg Q15M PRN IM DECREASED GLUCOSE; Start 07/22/17 at 15: 00 Glucose (Glutose) 15 gm Q15M PRN BUCCAL DECREASED GLUCOSE; Start 07/22/17 at 15:00 Linezolid (Zyvox) 600 mg BID PO Last administered on 08/09/17 09:09; Admin Dose 600 MG; Start 07/23/17 at 21:00 Fluconazole (Diflucan) 100 mg DAILY PO Last administered on 08/09/17 09:09; Admin Dose 100 MG; Start 07/25/17 at 09:00 Sodium Hypochlorite (Dakin'S (Dilute 1/40%)) 1 applic BID IRR Last administered on 08/09/17 09:10; Admin Dose 1 APPLIC; Start 07/26/17 at 21:00 Lansoprazole (Prevacid) 30 mg BID@06,18 PO Last administered on 08/09/17 06:26 ; Admin Dose 30 MG; Start 07/26/17 at 18:00 Zinc Sulfate (Zinc Sulfate) 220 mg DAILY GTB Last administered on 08/09/17 09: 09; Admin Dose 220 MG; Start 07/29/17 at 09:00 Ascorbic Acid (Vitamin C) 500 mg DAILY GTB Last administered on 08/09/17 09:10 ; Admin Dose 500 MG; Start 07/29/17 at 09:00 Collagenase (Santyl) 1 applic PRN PRN TOP PRN; Start 08/01/17 at 04:30 Collagenase 1 applic 1 applic DAILY TOP Last administered on 08/09/17 09:10; Admin Dose 1 APPLIC; Start 08/01/17 at 09:00 Colistimethate Sodium/Sodium Chloride (Coly-Mycin/NS) 100 ml @ 200 mls/hr Q24H IVPB Last administered on 08/09/17 09:18; Admin Dose 200 MLS/HR; Start at 09:00 Insulin Aspart (Novolog Insulin Pen) NOVOLOG *MILD* ALGORI... Q4 SC Last administered on 08/09/17 12:38; Admin Dose 3 UNIT; Start 08/04/17 at 17:00 Insulin Glargine (Lantus) 50 unit DAILY@20 SC ; Start 08/09/17 at 20:00 Atenolol 25 mg 25 mg BID PO ; Start 08/09/17 at 21:00 Sodium Chloride (NS) 250 ml @ 250 mls/hr Q1H ONCE IV Last administered on 08/09 16:42; Admin Dose 250 MLS/HR; Start 08/09/17 at 17:00; Stop 08/09/17 at 17 :59 ALIZA ANDRADE Aug 09, 2017 17:08
[2017-08-09] MEDS: EPOETIN 10000 UNITS/1 ML INJ (ESRD) SC SCH (17:47)
--- NOTE | 2017-08-09 18:56 | CONS ---
Date/Time of Note Date/Time of Note DATE: 08/09/17 TIME: 18:48 Consult Date/Type/Reason Admit Date/Time Jul 21, 2017 at 23:24 Initial Consult Date 07/22/17 Type of Consultation: ID Ordering Provider: FLEX DENNISON NP Objective Vital Signs Date Time Temp Pulse Resp B/P Pulse Ox O2 Delivery O2 Flow Rate FiO2 08/09/17 17:44 87 96/60 08/09/17 16:45 98.8 20 100 08/09/17 16:40 30 08/05/17 16:00 Mechanical Ventilator Intake and Output 08/08/17 08/08/17 08/09/17 14:59 22:59 06:59 Intake Total 960 ml 890 ml Output Total 850 ml 1000 ml Balance 110 ml -110 ml Results/Medications Result Diagram: 08/09/17 0756 08/09/17 0756 Results 24 hrs Laboratory Tests Test 08/08/17 21:08 08/09/17 01:37 08/09/17 05:43 08/09/17 07:56 Bedside Glucose 229 H 271 H 276 H White Blood Count 7.0 Red Blood Count 3.15 L Hemoglobin 7.7 L Hematocrit 27.0 L Mean Corpuscular Volume 85.7 Mean Corpuscular Hemoglobin 24.4 L Mean Corpuscular Hemoglobin Concent 28.5 L Red Cell Distribution Width 19.1 H Platelet Count 281 Mean Platelet Volume 11.3 H Neutrophils % 71.5 Lymphocytes % 15.8 Monocytes % 6.5 Eosinophils % 4.5 Basophils % 0.3 Nucleated Red Blood Cells % 0.0 Neutrophils # 5.0 Lymphocytes # 1.1 Monocytes # 0.5 Eosinophils # 0.3 Basophils # 0.0 Nucleated Red Blood Cells # 0.0 Sodium Level 145 H Potassium Level 3.7 Chloride Level 109 Carbon Dioxide Level 22 Anion Gap 18 H Blood Urea Nitrogen 44 H Creatinine 1.87 H Glucose Level 247 H Calcium Level 10.7 H Test 08/09/17 09:20 08/09/17 12:34 08/09/17 17:48 Bedside Glucose 247 H 253 H 172 Medications Current Medications Miscellaneous Information (Pending Santyl Order For Wound Care) This patient stern... PRN PRN XX WOUND CARE; Start 07/22/17 at 03:30 Acetaminophen (Tylenol Tab) 650 mg Q4 PRN GTB ELEVATED TEMPERATURE Last administered on 08/09/17 12:34; Admin Dose 650 MG; Start 07/22/17 at 05:30 Baclofen (Lioresal) 20 mg TID GTB Last administered on 08/09/17 12:34; Admin Dose 20 MG; Start 07/22/17 at 09:00 Bisacodyl (Dulcolax Supp) 10 mg DAILY PRN [place] CONSTIPATION; Start 07/22/17 at 05:30 Docusate Sodium (Colace Liquid Cup) 100 mg BID GTB Last administered on 09:08; Admin Dose 100 MG; Start 07/22/17 at 09:00 Epoetin Andrey (Epogen (Esrd)) 15,000 units MoWeFr@17 SC Last administered on 17:47; Admin Dose 15,000 UNITS; Start 07/24/17 at 17:00 Magnesium Hydroxide (Milk Of Mag) 30 ml Q24H PRN PO CONSTIPATION; Start at 05:30 Magnesium Oxide (Mag-Ox 400) 800 mg DAILY GTB Last administered on 08/09/17 09 :09; Admin Dose 800 MG; Start 07/22/17 at 09:00 Metoclopramide HCl (Reglan) 10 mg BID GTB Last administered on 08/09/17 09:08 ; Admin Dose 10 MG; Start 07/22/17 at 09:00 Mineral Oil (Fleet Mineral Oil Enema) 133 ml DAILY PRN IN CONSTIPATION; Start 07/22/17 at 05:30 Multivitamins Therapeutic (Theragran) 1 tab DAILY GTB Last administered on 08/09 09:08; Admin Dose 1 TAB; Start 07/22/17 at 09:00 Sucralfate (Carafate) 1 gm DAILY GTB Last administered on 08/09/17 09:09; Admin Dose 1 GM; Start 07/22/17 at 09:00 Tramadol HCl (Ultram) 100 mg DAILY GTB Last administered on 08/09/17 09:09; Admin Dose 100 MG; Start 07/22/17 at 09:00 Acetaminophen/ Hydrocodone Bitart ([place] (5/325)) 1 tab Q6H PRN GTB PAIN LEVEL 7-10; Start 10/21/17 at 05:30 Miscellaneous Information 1 ea NOTE XX ; Start 07/22/17 at 15:00 Glucose (Glutose) 15 gm Q15M PRN PO DECREASED GLUCOSE; Start 07/22/17 at 15:00 Glucose (Glutose) 22.5 gm Q15M PRN PO DECREASED GLUCOSE; Start 07/22/17 at 15: 00 Dextrose (D50w Syringe) 25 ml Q15M PRN IV DECREASED GLUCOSE; Start 07/22/17 at 15:00 Dextrose (D50w Syringe) 50 ml Q15M PRN IV DECREASED GLUCOSE; Start 07/22/17 at 15:00 Glucagon (Glucagen) 1 mg Q15M PRN IM DECREASED GLUCOSE; Start 07/22/17 at 15: 00 Glucose (Glutose) 15 gm Q15M PRN BUCCAL DECREASED GLUCOSE; Start 07/22/17 at 15:00 Linezolid (Zyvox) 600 mg BID PO Last administered on 08/09/17 09:09; Admin Dose 600 MG; Start 07/23/17 at 21:00 Fluconazole (Diflucan) 100 mg DAILY PO Last administered on 08/09/17 09:09; Admin Dose 100 MG; Start 07/25/17 at 09:00 Sodium Hypochlorite (Dakin'S (Dilute 1/40%)) 1 applic BID IRR Last administered on 08/09/17 09:10; Admin Dose 1 APPLIC; Start 07/26/17 at 21:00 Lansoprazole (Prevacid) 30 mg BID@06,18 PO Last administered on 08/09/17 17:45 ; Admin Dose 30 MG; Start 07/26/17 at 18:00 Zinc Sulfate (Zinc Sulfate) 220 mg DAILY GTB Last administered on 08/09/17 09: 09; Admin Dose 220 MG; Start 07/29/17 at 09:00 Ascorbic Acid (Vitamin C) 500 mg DAILY GTB Last administered on 08/09/17 09:10 ; Admin Dose 500 MG; Start 07/29/17 at 09:00 Collagenase (Santyl) 1 applic PRN PRN TOP PRN; Start 08/01/17 at 04:30 Collagenase 1 applic 1 applic DAILY TOP Last administered on 08/09/17 09:10; Admin Dose 1 APPLIC; Start 08/01/17 at 09:00 Colistimethate Sodium/Sodium Chloride (Coly-Mycin/NS) 100 ml @ 200 mls/hr Q24H IVPB Last administered on 08/09/17 09:18; Admin Dose 200 MLS/HR; Start at 09:00 Insulin Aspart (Novolog Insulin Pen) NOVOLOG *MILD* ALGORI... Q4 SC Last administered on 08/09/17 17:53; Admin Dose 1 UNIT; Start 08/04/17 at 17:00 Insulin Glargine (Lantus) 50 unit DAILY@20 SC ; Start 08/09/17 at 20:00 Atenolol (Tenormin) 25 mg BID PO ; Start 08/09/17 at 21:00 Assessment/Plan Chief Complaint/Hosp Course No acute changes, noncommunicative, looks comfortable Microbiology: Wound culture growing Acinetobacter, VRE, Pilar albicans, MRSA , coag negative staph species. Blood culture grew staph species, urine culture growing gram-negative rods Indwelling: Trach/PEG/PICC/Joel Abx: Colistin, Diflucan, Zyvox ALL: PCN, Levaquin, Vanco, Cephalosporins GENERAL: The patient is a nonverbal female who is awake, noncommunicative, no acute distress. SKIN: Without generalized rash. HEENT: Within normal limits. NECK: Supple. Lymph nodes nonpalpable. She has a tracheostomy in place. SKIN: She has a PICC line on the left side in the superior vena cava. CHEST: Decreased breath sounds at the bases. HEART: Without murmur or gallop. ABDOMEN: Soft, nontender. G-tube in place. + BT EXTREMITIES: Without cyanosis, clubbing or edema. Assessment: 1. Sepsis with ongoing fevers and tachycardia 2. Persistent UTI==> GNR 2. Multiple chronic wounds with evidence of R ischial chronic OM and possible L hip septic arthritis per MRI 3. Anemia 4. ARF=> nephrology follows 5. VDRF 6. Chronic encephalopathy 7. Bacteremia, possibly contaminant vs 2 to wounds 8. Constipation/fecal impaction Plan: Clinically unchanged, continue abx, continue local wound care per surgical rec-s, consider ortho eval for poss L hip fluid aspiration, laxatives/ enema prn, prognosis for meaningful recovery is poor, consider palliative care eval Dw staff Problems: FLEX DENNISON NP 8, 2017 18:56
--- NOTE | 2017-08-09 18:58 | CONS ---
Date/Time of Note Date/Time of Note DATE: 08/09/17 TIME: 18:57 Assessment/Plan Assessment/Plan Additional Assessment/Plan 1. Acute kidney injury due to ATN From sepsis + prerenal azotemia 2. Sepsis due to UTI 3. Chronic resp failure s/p Tracheostomy on ventilator 4/ Anemia of chronic disease 5/ HTN 6. UTI with Urine cx growing Gram negative rods Plan : s/p 1liter IVF Cr 1.87 Na 145, Ca 10.7 continue Tube feeding as ordered IV abx colimycin and PO zyvox, - also on PO Fluconazole- ID following, vent management as per pulmonary will follow up Consultation Date/Type/Reason Admit Date/Time Jul 21, 2017 at 23:24 Initial Consult Date 07/22/17 Type of Consultation: NEPHROLOGY Referring Provider: FLEX DENNISON NP 24 HR Interval Summary Free Text/Dictation Na 145, Cr 1.87, BP stable, On IV colimycin Exam/Review of Systems Vital Signs Vitals Vital Signs Date Time Temp Pulse Resp B/P Pulse Ox O2 Delivery O2 Flow Rate FiO2 08/09/17 17:44 87 96/60 08/09/17 16:45 98.8 20 100 08/09/17 16:40 30 08/05/17 16:00 Mechanical Ventilator Intake and Output 08/08/17 08/08/17 08/09/17 15:00 23:00 07:00 Intake Total 960 ml 890 ml Output Total 850 ml 1000 ml Balance 110 ml -110 ml Exam Constitutional: non-verbal Head: normocephalic Eyes: other ENMT: other (+ tracheostomy secured ) Neck: non-tender, supple Respiratory: clear to auscultation, crackles/rales, diminished breath sounds Cardiovascular: nl pulses, regular rate and rhythm Gastrointestinal: non-tender, soft Musculoskeletal: other (wated LE ) Skin: other (Unstagable multiple decubitus ) Results Result Diagram: 08/09/17 0756 08/09/17 0756 Results 24 hrs Laboratory Tests Test 08/08/17 21:08 08/09/17 01:37 08/09/17 05:43 08/09/17 07:56 Bedside Glucose 229 H 271 H 276 H White Blood Count 7.0 Red Blood Count 3.15 L Hemoglobin 7.7 L Hematocrit 27.0 L Mean Corpuscular Volume 85.7 Mean Corpuscular Hemoglobin 24.4 L Mean Corpuscular Hemoglobin Concent 28.5 L Red Cell Distribution Width 19.1 H Platelet Count 281 Mean Platelet Volume 11.3 H Neutrophils % 71.5 Lymphocytes % 15.8 Monocytes % 6.5 Eosinophils % 4.5 Basophils % 0.3 Nucleated Red Blood Cells % 0.0 Neutrophils # 5.0 Lymphocytes # 1.1 Monocytes # 0.5 Eosinophils # 0.3 Basophils # 0.0 Nucleated Red Blood Cells # 0.0 Sodium Level 145 H Potassium Level 3.7 Chloride Level 109 Carbon Dioxide Level 22 Anion Gap 18 H Blood Urea Nitrogen 44 H Creatinine 1.87 H Glucose Level 247 H Calcium Level 10.7 H Test 08/09/17 09:20 08/09/17 12:34 08/09/17 17:48 Bedside Glucose 247 H 253 H 172 Medications Medications Current Medications Miscellaneous Information (Pending Santyl Order For Wound Care) This patient stern... PRN PRN XX WOUND CARE; Start 07/22/17 at 03:30 Acetaminophen (Tylenol Tab) 650 mg Q4 PRN GTB ELEVATED TEMPERATURE Last administered on 08/09/17 12:34; Admin Dose 650 MG; Start 07/22/17 at 05:30 Baclofen (Lioresal) 20 mg TID GTB Last administered on 08/09/17 12:34; Admin Dose 20 MG; Start 07/22/17 at 09:00 Bisacodyl (Dulcolax Supp) 10 mg DAILY PRN [place] CONSTIPATION; Start 07/22/17 at 05:30 Docusate Sodium (Colace Liquid Cup) 100 mg BID GTB Last administered on 09:08; Admin Dose 100 MG; Start 07/22/17 at 09:00 Epoetin Andrey (Epogen (Esrd)) 15,000 units MoWeFr@17 SC Last administered on 17:47; Admin Dose 15,000 UNITS; Start 07/24/17 at 17:00 Magnesium Hydroxide (Milk Of Mag) 30 ml Q24H PRN PO CONSTIPATION; Start at 05:30 Magnesium Oxide (Mag-Ox 400) 800 mg DAILY GTB Last administered on 08/09/17 09 :09; Admin Dose 800 MG; Start 07/22/17 at 09:00 Metoclopramide HCl (Reglan) 10 mg BID GTB Last administered on 08/09/17 09:08 ; Admin Dose 10 MG; Start 07/22/17 at 09:00 Mineral Oil (Fleet Mineral Oil Enema) 133 ml DAILY PRN [place] CONSTIPATION; Start 07/22/17 at 05:30 Multivitamins Therapeutic (Theragran) 1 tab DAILY GTB Last administered on 08/09 09:08; Admin Dose 1 TAB; Start 07/22/17 at 09:00 Sucralfate (Carafate) 1 gm DAILY GTB Last administered on 08/09/17 09:09; Admin Dose 1 GM; Start 07/22/17 at 09:00 Tramadol HCl (Ultram) 100 mg DAILY GTB Last administered on 08/09/17 09:09; Admin Dose 100 MG; Start 07/22/17 at 09:00 Acetaminophen/ Hydrocodone Bitart ([place] (5/325)) 1 tab Q6H PRN GTB PAIN LEVEL 7-10; Start 07/22/17 at 05:30 Miscellaneous Information 1 ea NOTE XX ; Start 07/22/17 at 15:00 Glucose (Glutose) 15 gm Q15M PRN PO DECREASED GLUCOSE; Start 07/22/17 at 15:00 Glucose (Glutose) 22.5 gm Q15M PRN PO DECREASED GLUCOSE; Start 07/22/17 at 15: 00 Dextrose (D50w Syringe) 25 ml Q15M PRN IV DECREASED GLUCOSE; Start 07/22/17 at 15:00 Dextrose (D50w Syringe) 50 ml Q15M PRN IV DECREASED GLUCOSE; Start 07/22/17 at 15:00 Glucagon (Glucagen) 1 mg Q15M PRN IM DECREASED GLUCOSE; Start 07/22/17 at 15: 00 Glucose (Glutose) 15 gm Q15M PRN BUCCAL DECREASED GLUCOSE; Start 07/22/17 at 15:00 Linezolid (Zyvox) 600 mg BID PO Last administered on 08/09/17 09:09; Admin Dose 600 MG; Start 07/23/17 at 21:00 Fluconazole (Diflucan) 100 mg DAILY PO Last administered on 08/09/17 09:09; Admin Dose 100 MG; Start 07/25/17 at 09:00 Sodium Hypochlorite (Dakin'S (Dilute 1/40%)) 1 applic BID IRR Last administered on 08/09/17 09:10; Admin Dose 1 APPLIC; Start 07/26/17 at 21:00 Lansoprazole (Prevacid) 30 mg BID@06,18 PO Last administered on 08/09/17 17:45 ; Admin Dose 30 MG; Start 07/26/17 at 18:00 Zinc Sulfate (Zinc Sulfate) 220 mg DAILY GTB Last administered on 08/09/17 09: 09; Admin Dose 220 MG; Start 07/29/17 at 09:00 Ascorbic Acid (Vitamin C) 500 mg DAILY GTB Last administered on 08/09/17 09:10 ; Admin Dose 500 MG; Start 07/29/17 at 09:00 Collagenase (Santyl) 1 applic PRN PRN TOP PRN; Start 08/01/17 at 04:30 Collagenase 1 applic 1 applic DAILY TOP Last administered on 08/09/17 09:10; Admin Dose 1 APPLIC; Start 08/01/17 at 09:00 Colistimethate Sodium/Sodium Chloride (Coly-Mycin/NS) 100 ml @ 200 mls/hr Q24H IVPB Last administered on 08/09/17 09:18; Admin Dose 200 MLS/HR; Start at 09:00 Insulin Aspart (Novolog Insulin Pen) NOVOLOG *MILD* ALGORI... Q4 SC Last administered on 08/09/17 17:53; Admin Dose 1 UNIT; Start 08/04/17 at 17:00 Insulin Glargine (Lantus) 50 unit DAILY@20 SC ; Start 08/09/17 at 20:00 Atenolol (Tenormin) 25 mg BID PO ; Start 08/09/17 at 21:00 LIZETTE ALEX MD Aug 09, 2017 18:58
[2017-08-09] MEDS ORDERED: INSULIN GLARGINE [LANtus] 3 ML PEN SC SCH (20:00)
[2017-08-09] MEDS: ATENOLOL 25 MG TAB PO SCH (20:43)
[2017-08-10] VITALS (22 sets, daily range): BP systolic 88–128; BP diastolic 51–71; PULSE 97–113; RESP 11–17
[2017-08-10] MEDS: INSULIN ASPART [NOVOLOG] 3 ML PEN SC SCH ×4 (01:19→13:55)
[2017-08-10] MEDS: LANSOPRAZOLE 30 MG CAP PO SCH ×2 (06:05→17:20)
[2017-08-10] MEDS: ATENOLOL 25 MG TAB PO SCH ×2 (09:00→20:54)
[2017-08-10] MEDS: MAGNESIUM OXIDE 400 MG TAB GTB SCH (09:39)
[2017-08-10] MEDS: ASCORBIC ACID 500 MG TAB GTB SCH (09:39)
[2017-08-10] MEDS: COLISTIMETHATE 135 MG in SOD CHLORIDE 0.9% 100 ML IVPB SCH (09:39)
[2017-08-10] MEDS: ACETAMINOPHEN 325 MG TAB GTB PRN (09:39)
[2017-08-10] MEDS: FLUCONAZOLE 100 MG TAB PO SCH (09:40)
[2017-08-10] MEDS: METOCLOPRAMIDE 10 MG TAB GTB SCH ×2 (09:40→20:53)
[2017-08-10] MEDS: DOCUSATE SODIUM 10 MG/ML (10ML CUP) GTB SCH ×2 (09:41→21:03)
[2017-08-10] MEDS: ZINC SULFATE 220 MG CAP GTB SCH (09:41)
[2017-08-10] MEDS: traMADol 50 MG TAB GTB SCH (09:41)
[2017-08-10] MEDS: MULTIVITAMINS THERAPEUTIC TAB GTB SCH (09:41)
[2017-08-10] MEDS: BACLOFEN 10 MG TAB GTB SCH ×3 (09:41→20:53)
[2017-08-10] MEDS: ZYVOX 600 MG TAB PO SCH ×2 (09:42→20:53)
[2017-08-10] MEDS: SODIUM HYPOCHLORITE 1/40% 1L IRRIG IRR SCH ×2 (09:42→21:03)
[2017-08-10] MEDS: COLLAGENASE 30 GM TUBE TOP SCH (09:42)
--- NOTE | 2017-08-10 11:20 | CONS ---
Date/Time of Note Date/Time of Note DATE: 08/10/17 TIME: 11:19 Consult Date/Type/Reason Admit Date/Time Jul 21, 2017 at 23:24 Initial Consult Date 07/22/17 Type of Consultation: Pulmonary Ordering Provider: FLEX DENNISON CATTLE MANAGER Subjective Patient comfortable this morning. Objective Vital Signs Date Time Temp Pulse Resp B/P Pulse Ox O2 Delivery O2 Flow Rate FiO2 08/10/17 11:15 109 15 100 30 08/10/17 07:50 100.2 128/71 Intake and Output 08/09/17 08/09/17 08/10/17 15:00 23:00 07:00 Intake Total 1300 ml 1300 ml Output Total 750 ml 700 ml Balance 550 ml 600 ml Exam PHYSICAL EXAMINATION GENERAL: Chronically ill-appearing lady on mechanical ventilation VITAL SIGNS: see below. HEENT: Pupils equal, round, and reactive to light. Tracheostomy site clean and intact. CARDIAC: S1, S2, 1/6 systolic ejection murmur CHEST: Diminished air entry bilaterally. ABDOMEN: Mildly distended. Bowel sounds present no guarding or rebound EXTREMITIES: No cyanosis, clubbing edema +1 NEUROLOGIC: Generalized weakness Results/Medications Result Diagram: 08/09/17 0756 08/09/17 0756 Results 24 hrs Laboratory Tests Test 08/09/17 12:34 08/09/17 17:48 08/09/17 20:32 08/10/17 01:16 Bedside Glucose 253 H 172 183 218 Test 08/10/17 06:04 08/10/17 09:27 Bedside Glucose 211 255 H Medications Current Medications Miscellaneous Information ([facility] This patient stern... PRN PRN XX WOUND CARE; Start 07/22/17 at 03:30 Acetaminophen (Tylenol Tab) 650 mg Q4 PRN GTB ELEVATED TEMPERATURE Last administered on 08/10/17 09:39; Admin Dose 650 MG; Start 07/22/17 at 05:30 Baclofen (Lioresal) 20 mg TID GTB Last administered on 08/10/17 09:41; Admin Dose 20 MG; Start 07/22/17 at 09:00 Bisacodyl (Dulcolax Supp) 10 mg DAILY PRN [place] CONSTIPATION; Start 07/22/17 at 05:30 Docusate Sodium (Colace Liquid Cup) 100 mg BID GTB Last administered on 09:41; Admin Dose 100 MG; Start 07/22/17 at 09:00 Epoetin Andrey (Epogen (Esrd)) 15,000 units MoWeFr@17 SC Last administered on 17:47; Admin Dose 15,000 UNITS; Start 07/24/17 at 17:00 Magnesium Hydroxide (Milk Of Mag) 30 ml Q24H PRN PO CONSTIPATION; Start at 05:30 Magnesium Oxide (Mag-Ox 400) 800 mg DAILY GTB Last administered on 08/10/17 09 :39; Admin Dose 800 MG; Start 07/22/17 at 09:00 Metoclopramide HCl (Reglan) 10 mg BID GTB Last administered on 08/10/17 09:40 ; Admin Dose 10 MG; Start 07/22/17 at 09:00 Mineral Oil (Fleet Mineral Oil Enema) 133 ml DAILY PRN [place] CONSTIPATION; Start 07/22/17 at 05:30 Multivitamins Therapeutic (Theragran) 1 tab DAILY GTB Last administered on 08/10 09:41; Admin Dose 1 TAB; Start 07/22/17 at 09:00 Sucralfate (Carafate) 1 gm DAILY GTB Last administered on 08/09/17 20:43; Admin Dose 1 GM; Start 07/22/17 at 09:00 Tramadol HCl (Ultram) 100 mg DAILY GTB Last administered on 08/10/17 09:41; Admin Dose 100 MG; Start 07/22/17 at 09:00 Acetaminophen/ Hydrocodone Bitart ([place] (5/325)) 1 tab Q6H PRN GTB PAIN LEVEL 7-10; Start 07/22/17 at 05:30 Miscellaneous Information 1 ea NOTE XX ; Start 07/22/17 at 15:00 Glucose (Glutose) 15 gm Q15M PRN PO DECREASED GLUCOSE; Start 07/22/17 at 15:00 Glucose (Glutose) 22.5 gm Q15M PRN PO DECREASED GLUCOSE; Start 07/22/17 at 15: 00 Dextrose (D50w Syringe) 25 ml Q15M PRN IV DECREASED GLUCOSE; Start 07/22/17 at 15:00 Dextrose (D50w Syringe) 50 ml Q15M PRN IV DECREASED GLUCOSE; Start 07/22/17 at 15:00 Glucagon (Glucagen) 1 mg Q15M PRN IM DECREASED GLUCOSE; Start 07/22/17 at 15: 00 Glucose (Glutose) 15 gm Q15M PRN BUCCAL DECREASED GLUCOSE; Start 07/22/17 at 15:00 Linezolid (Zyvox) 600 mg BID PO Last administered on 08/10/17 09:42; Admin Dose 600 MG; Start 07/23/17 at 21:00 Fluconazole (Diflucan) 100 mg DAILY PO Last administered on 08/10/17 09:40; Admin Dose 100 MG; Start 07/25/17 at 09:00 Sodium Hypochlorite (Dakin'S (Dilute 1/40%)) 1 applic BID IRR Last administered on 08/10/17 09:42; Admin Dose 1 APPLIC; Start 07/26/17 at 21:00 Lansoprazole (Prevacid) 30 mg BID@06,18 PO Last administered on 08/10/17 06:05 ; Admin Dose 30 MG; Start 07/26/17 at 18:00 Zinc Sulfate (Zinc Sulfate) 220 mg DAILY GTB Last administered on 08/10/17 09: 41; Admin Dose 220 MG; Start 07/29/17 at 09:00 Ascorbic Acid (Vitamin C) 500 mg DAILY GTB Last administered on 08/10/17 09:39 ; Admin Dose 500 MG; Start 07/29/17 at 09:00 Collagenase (Santyl) 1 applic PRN PRN TOP PRN; Start 08/01/17 at 04:30 Collagenase 1 applic 1 applic DAILY TOP Last administered on 08/10/17 09:42; Admin Dose 1 APPLIC; Start 08/01/17 at 09:00 Colistimethate Sodium/Sodium Chloride (Coly-Mycin/NS) 100 ml @ 200 mls/hr Q24H IVPB Last administered on 08/10/17 09:39; Admin Dose 200 MLS/HR; Start at 09:00 Insulin Aspart (Novolog Insulin Pen) NOVOLOG *MILD* ALGORI... Q4 SC Last administered on 08/10/17 09:38; Admin Dose 3 UNIT; Start 08/04/17 at 17:00 Insulin Glargine (Lantus) 50 unit DAILY@20 SC Last administered on 08/09/17t 20 :38; Admin Dose 50 UNIT; Start 08/09/17 at 20:00 Atenolol (Tenormin) 25 mg BID PO ; Start 08/09/17 at 21:00 Assessment/Plan Chief Complaint/Hosp Course Additional Assessment/Plan IMP: 1. Anemia--likely of chronic disease. 2. Urosepsis no calculi noted. 3. VDRF 4. Encephalopathy RECS: 1. Vent support 2. BD's/CPT 3. Abx per ID 4. GIB w/u per GI Pending transfer to [facility]. Problems: ULYSSES FORRESTER [facility] Aug 10, 2017 11:20
--- NOTE | 2017-08-10 13:00 | PN ---
Date/Time of Note Date/Time of Note DATE: 08/10/17 TIME: 12:57 Assessment/Plan Lines/Catheters IV Catheter Type (from Nrs): PICC Line Joel in Place (from Nrs): Yes Assessment/Plan Chief Complaint/Hosp Course 1. Multiple wound: 2/2 immobility; cultures noted: s/p debridement; MRI with osteo and septic arthritis, synovitis -debridement prn -local care-bid -frequent turning and off-loading -low air loss mattress -vitamin c -short term zinc -optimize nutrition -recommend ortho consult -abx -recommend family meeting to discuss goals of care 2. Hypochromic anemia: no acute bleed noted -monitor -transfuse as needed 3. UTI: cultures noted -abx per sensitivity -frequent bladder emptying/cath care 4. VDRF -pulm toilet -respiratory treatments 5. Persistent fevers and tachycardia: likely 2/2 #3, 1, tsh nl -as above Thank you. Patient seen and examined in collaboration with Dr. Hi High. Problems: Subjective 24 Hr Interval Summary Tachycardic, Min temps. Nonverbal indicators of pain not present. Appears comfortable on vent. No diarrhea, sz, new wounds, excessive wound drainage. Exam/Review of Systems Vital Signs Vitals Vital Signs Date Time Temp Pulse Resp B/P Pulse Ox O2 Delivery O2 Flow Rate FiO2 08/10/17 12:16 100 08/10/17 11:41 100.4 17 117/63 100 08/10/17 11:15 30 Intake and Output 08/09/17 08/09/17 08/10/17 15:00 23:00 07:00 Intake Total 1300 ml 1300 ml Output Total 750 ml 700 ml Balance 550 ml 600 ml Exam Free Text/Dictation Constitutional: alert, other (nonverbal) Head: atraumatic, normocephalic Eyes: nl lids, nl sclera, No icteric ENMT: mucosa pink and moist, nl nasal mucosa & septum Neck: non-tender, other (trach), supple Respiratory: other (vent), No labored breathing Cardiovascular: regular rate and rhythm: Gastrointestinal: non-tender, other (peg; umbilical hernia, rotund), soft Extremities: normal pulses, other (stiffness) Neurological: other (withdraws from painful stimuli) Skin: other (multiple wounds: packed, min drainage, nonmalodorous, no periwound erythema) Results Result Diagram: 08/09/17 0756 08/09/17 0756 SANFORD RODRIGUEZ NP Aug 10, 2017 13:00
--- NOTE | 2017-08-10 13:45 | CONS ---
Date/Time of Note Date/Time of Note DATE: 08/10/17 TIME: 13:44 Consult Date/Type/Reason Admit Date/Time Jul 21, 2017 at 23:24 Initial Consult Date 07/22/17 Type of Consultation: Pulmonary Ordering Provider: FLEX DENNISON NP Objective Vital Signs Date Time Temp Pulse Resp B/P Pulse Ox O2 Delivery O2 Flow Rate FiO2 08/10/17 13:15 104 11 100 30 08/10/17 11:41 100.4 117/63 Intake and Output 08/09/17 08/09/17 08/10/17 15:00 23:00 07:00 Intake Total 1300 ml 1300 ml Output Total 750 ml 700 ml Balance 550 ml 600 ml Results/Medications Result Diagram: 08/09/17 0756 08/09/17 0756 Results 24 hrs Laboratory Tests Test 08/09/17 17:48 08/09/17 20:32 08/10/17 01:16 08/10/17 06:04 Bedside Glucose 172 183 218 211 Test 08/10/17 09:27 08/10/17 12:44 Bedside Glucose 255 H 224 H Medications Current Medications Miscellaneous Information (Pending [facility] Order For Wound Care) This patient stern... PRN PRN XX WOUND CARE; Start 07/22/17 at 03:30 Acetaminophen (Tylenol Tab) 650 mg Q4 PRN GTB ELEVATED TEMPERATURE Last administered on 08/10/17 09:39; Admin Dose 650 MG; Start 07/22/17 at 05:30 Baclofen (Lioresal) 20 mg TID GTB Last administered on 08/10/17 09:41; Admin Dose 20 MG; Start 07/22/17 at 09:00 Bisacodyl (Dulcolax Supp) 10 mg DAILY PRN [place] CONSTIPATION; Start 07/22/17 at 05:30 Docusate Sodium (Colace Liquid Cup) 100 mg BID GTB Last administered on 09:41; Admin Dose 100 MG; Start 07/22/17 at 09:00 Epoetin Andrey (Epogen (Esrd)) 15,000 units MoWeFr@17 SC Last administered on 17:47; Admin Dose 15,000 UNITS; Start 07/24/17 at 17:00 Magnesium Hydroxide (Milk Of Mag) 30 ml Q24H PRN PO CONSTIPATION; Start at 05:30 Magnesium Oxide (Mag-Ox 400) 800 mg DAILY GTB Last administered on 08/10/17 09 :39; Admin Dose 800 MG; Start 07/22/17 at 09:00 Metoclopramide HCl (Reglan) 10 mg BID GTB Last administered on 08/10/17 09:40 ; Admin Dose 10 MG; Start 07/22/17 at 09:00 Mineral Oil (Fleet Mineral Oil Enema) 133 ml DAILY PRN IN CONSTIPATION; Start 07/22/17 at 05:30 Multivitamins Therapeutic (Theragran) 1 tab DAILY GTB Last administered on 08/10 09:41; Admin Dose 1 TAB; Start 07/22/17 at 09:00 Sucralfate (Carafate) 1 gm DAILY GTB Last administered on 08/09/17 20:43; Admin Dose 1 GM; Start 07/22/17 at 09:00 Tramadol HCl (Ultram) 100 mg DAILY GTB Last administered on 08/10/17 09:41; Admin Dose 100 MG; Start 07/22/17 at 09:00 Acetaminophen/ Hydrocodone Bitart ([place] (5/325)) 1 tab Q6H PRN GTB PAIN LEVEL 7-10; Start 07/22/17 at 05:30 Miscellaneous Information 1 ea NOTE XX ; Start 07/22/17 at 15:00 Glucose (Glutose) 15 gm Q15M PRN PO DECREASED GLUCOSE; Start 07/22/17 at 15:00 Glucose (Glutose) 22.5 gm Q15M PRN PO DECREASED GLUCOSE; Start 07/22/17 at 15: 00 Dextrose (D50w Syringe) 25 ml Q15M PRN IV DECREASED GLUCOSE; Start 07/22/17 at 15:00 Dextrose (D50w Syringe) 50 ml Q15M PRN IV DECREASED GLUCOSE; Start 07/22/17 at 15:00 Glucagon (Glucagen) 1 mg Q15M PRN IM DECREASED GLUCOSE; Start 07/22/17 at 15: 00 Glucose (Glutose) 15 gm Q15M PRN BUCCAL DECREASED GLUCOSE; Start 07/22/17 at 15:00 Linezolid (Zyvox) 600 mg BID PO Last administered on 08/10/17 09:42; Admin Dose 600 MG; Start 07/23/17 at 21:00 Fluconazole (Diflucan) 100 mg DAILY PO Last administered on 08/10/17 09:40; Admin Dose 100 MG; Start 07/25/17 at 09:00 Sodium Hypochlorite (Dakin'S (Dilute 1/40%)) 1 applic BID IRR Last administered on 08/10/17 09:42; Admin Dose 1 APPLIC; Start 07/26/17 at 21:00 Lansoprazole (Prevacid) 30 mg BID@06,18 PO Last administered on 08/10/17 06:05 ; Admin Dose 30 MG; Start 07/26/17 at 18:00 Zinc Sulfate (Zinc Sulfate) 220 mg DAILY GTB Last administered on 08/10/17 09: 41; Admin Dose 220 MG; Start 07/29/17 at 09:00 Ascorbic Acid (Vitamin C) 500 mg DAILY GTB Last administered on 08/10/17 09:39 ; Admin Dose 500 MG; Start 07/29/17 at 09:00 Collagenase (Santyl) 1 applic PRN PRN TOP PRN; Start 08/01/17 at 04:30 Collagenase 1 applic 1 applic DAILY TOP Last administered on 08/10/17 09:42; Admin Dose 1 APPLIC; Start 08/01/17 at 09:00 Colistimethate Sodium/Sodium Chloride (Coly-Mycin/NS) 100 ml @ 200 mls/hr Q24H IVPB Last administered on 08/10/17 09:39; Admin Dose 200 MLS/HR; Start at 09:00 Insulin Aspart (Novolog Insulin Pen) NOVOLOG *MILD* ALGORI... Q4 SC Last administered on 08/10/17 09:38; Admin Dose 3 UNIT; Start 08/04/17 at 17:00 Atenolol (Tenormin) 25 mg BID PO ; Start 08/09/17 at 21:00 Insulin Glargine (Lantus) 30 unit BID@08,20 SC ; Start 08/10/17 at 20:00 Assessment/Plan Chief Complaint/Hosp Course No acute changes, continues to spike fevers, noncommunicative, looks comfortable Microbiology: Wound culture growing Acinetobacter, VRE, Pilar albicans, MRSA , coag negative staph species. Blood culture grew staph species, urine culture growing gram-negative rods Indwelling: Trach/PEG/PICC/Joel Abx: Colistin, Diflucan, Zyvox ALL: PCN, Levaquin, Vanco, Cephalosporins GENERAL: The patient is a nonverbal female who is awake, noncommunicative, no acute distress. SKIN: Without generalized rash. HEENT: Within normal limits. NECK: Supple. Lymph nodes nonpalpable. She has a tracheostomy in place. SKIN: She has a PICC line on the left side in the superior vena cava. CHEST: Decreased breath sounds at the bases. HEART: Without murmur or gallop. ABDOMEN: Soft, nontender. G-tube in place. + BT EXTREMITIES: Without cyanosis, clubbing or edema. Assessment: 1. Sepsis with ongoing fevers and tachycardia 2. Persistent UTI==> GNR 2. Multiple chronic wounds with evidence of R ischial chronic OM and possible L hip septic arthritis per MRI 3. Anemia 4. ARF=> nephrology follows 5. VDRF 6. Chronic encephalopathy 7. Bacteremia, possibly contaminant vs 2 to wounds 8. Constipation/fecal impaction Plan: Clinically unchanged, continue abx, continue local wound care per surgical rec-s, consider ortho eval for poss L hip fluid aspiration, laxatives/ enema prn, prognosis for meaningful recovery is poor, consider palliative care eval Dw staff Problems: FLEX DENNISON NP Aug 10, 2017 13:45
[2017-08-10 15:05] LABS: BASOPHILS % 0.3 % (0.0-2.0); EOSINOPHILS # 0.4 10^3/ul (0.0-0.5); EOSINOPHILS % 6.5 % (0.0-7.0); HEMATOCRIT 32.5 % (37.0-47.0); HEMOGLOBIN 9.8 g/dl (12.0-16.0); LYMPHOCYTES # 1.1 10^3/ul (0.8-2.9); LYMPHOCYTES % 16.5 % (15.0-51.0); MEAN CORPUSCULAR HEMOGLOBIN 25.6 pg (29.0-33.0); MEAN CORPUSCULAR HGB CONC 30.2 g/dl (32.0-37.0); MEAN CORPUSCULAR VOLUME 84.9 fl (82.0-101.0); MEAN PLATELET VOLUME 11.6 fl (7.4-10.4); MONOCYTE # 0.4 10^3/ul (0.3-0.9); MONOCYTES % 5.6 % (0.0-11.0); NEUTROPHIL # 4.6 10^3/ul (1.6-7.5); NEUTROPHILS % 69.7 % (39.0-77.0); PLATELET COUNT 276 10^3/UL (140-415); RED BLOOD COUNT 3.83 10^6/ul (4.20-5.40); RED CELL DISTRIBUTION WIDTH 17.6 % (11.5-14.5); WHITE BLOOD COUNT 6.6 10^3/ul (4.8-10.8)
[2017-08-10 15:10] LABS: CALCIUM 10.6 mg/dl (8.4-10.2); CREATININE 1.93 mg/dl (0.44-1.00); POTASSIUM 3.4 mmol/L (3.5-5.1)
--- NOTE | 2017-08-10 15:48 | CONS ---
Date/Time of Note Date/Time of Note DATE: 08/10/17 TIME: 15:47 Assessment/Plan Assessment/Plan Additional Assessment/Plan 1. Acute kidney injury due to ATN From sepsis + prerenal azotemia 2. Sepsis due to UTI 3. Chronic resp failure s/p Tracheostomy on ventilator 4/ Anemia of chronic disease 5/ HTN 6. UTI with Urine cx growing Gram negative rods Plan : s/p 1liter IVF Cr 1.93 Na 144, Ca 10.6- monitor Cr and electrolytes continue Tube feeding as ordered IV abx colimycin and PO zyvox, - also on PO Fluconazole- ID following, vent management as per pulmonary will follow up Consultation Date/Type/Reason Admit Date/Time Jul 21, 2017 at 23:24 Initial Consult Date 07/22/17 Type of Consultation: NEPHROLOGY Referring Provider: FLEX DENNISON INVOICE CONTROL CLERK Exam/Review of Systems Vital Signs Vitals Vital Signs Date Time Temp Pulse Resp B/P Pulse Ox O2 Delivery O2 Flow Rate FiO2 08/10/17 15:20 90 13 100 30 08/10/17 15:09 97.8 107/59 Intake and Output 08/09/17 08/09/17 08/10/17 15:00 23:00 07:00 Intake Total 1300 ml 1300 ml Output Total 750 ml 700 ml Balance 550 ml 600 ml Exam Constitutional: non-verbal Head: normocephalic Eyes: other ENMT: other (+ tracheostomy secured ) Neck: non-tender, supple Respiratory: clear to auscultation, crackles/rales, diminished breath sounds Cardiovascular: nl pulses, regular rate and rhythm Gastrointestinal: non-tender, soft Musculoskeletal: other (wated LE ) Skin: other (Unstagable multiple decubitus ) Results Result Diagram: 08/10/17 1412 08/10/17 1412 Results 24 hrs Laboratory Tests Test 08/09/17 17:48 08/09/17 20:32 08/10/17 01:16 08/10/17 06:04 Bedside Glucose 172 183 218 211 Test 08/10/17 09:27 08/10/17 12:44 08/10/17 14:12 Bedside Glucose 255 H 224 H White Blood Count 6.6 Red Blood Count 3.83 #L Hemoglobin 9.8 #L Hematocrit 32.5 #L Mean Corpuscular Volume 84.9 Mean Corpuscular Hemoglobin 25.6 L Mean Corpuscular Hemoglobin Concent 30.2 L Red Cell Distribution Width 17.6 H Platelet Count 276 Mean Platelet Volume 11.6 H Neutrophils % 69.7 Lymphocytes % 16.5 Monocytes % 5.6 Eosinophils % 6.5 Basophils % 0.3 Nucleated Red Blood Cells % 0.0 Neutrophils # 4.6 Lymphocytes # 1.1 Monocytes # 0.4 Eosinophils # 0.4 Basophils # 0.0 Nucleated Red Blood Cells # 0.0 Sodium Level 144 Potassium Level 3.4 L Chloride Level 109 Carbon Dioxide Level 22 Anion Gap 16 Blood Urea Nitrogen 43 H Creatinine 1.93 H Glucose Level 216 Calcium Level 10.6 H Medications Medications Current Medications Miscellaneous Information (Pending [facility] Order For Wound Care) This patient stern... PRN PRN XX WOUND CARE; Start 07/22/17 at 03:30 Acetaminophen (Tylenol Tab) 650 mg Q4 PRN GTB ELEVATED TEMPERATURE Last administered on 08/10/17 09:39; Admin Dose 650 MG; Start 07/22/17 at 05:30 Baclofen (Lioresal) 20 mg TID GTB Last administered on 08/10/17 12:44; Admin Dose 20 MG; Start 07/22/17 at 09:00 Bisacodyl (Dulcolax Supp) 10 mg DAILY PRN [place] CONSTIPATION; Start 07/22/17 at 05:30 Docusate Sodium (Colace Liquid Cup) 100 mg BID GTB Last administered on 09:41; Admin Dose 100 MG; Start 07/22/17 at 09:00 Epoetin Andrey (Epogen (Esrd)) 15,000 units MoWeFr@17 SC Last administered on 17:47; Admin Dose 15,000 UNITS; Start 07/24/17 at 17:00 Magnesium Hydroxide (Milk Of Mag) 30 ml Q24H PRN PO CONSTIPATION; Start at 05:30 Magnesium Oxide (Mag-Ox 400) 800 mg DAILY GTB Last administered on 08/10/17 09 :39; Admin Dose 800 MG; Start 07/22/17 at 09:00 Metoclopramide HCl (Reglan) 10 mg BID GTB Last administered on 08/10/17 09:40 ; Admin Dose 10 MG; Start 07/22/17 at 09:00 Mineral Oil (Fleet Mineral Oil Enema) 133 ml DAILY PRN [place] CONSTIPATION; Start 07/22/17 at 05:30 Multivitamins Therapeutic (Theragran) 1 tab DAILY GTB Last administered on 08/10 09:41; Admin Dose 1 TAB; Start 07/22/17 at 09:00 Sucralfate (Carafate) 1 gm DAILY GTB Last administered on 08/09/17 20:43; Admin Dose 1 GM; Start 07/22/17 at 09:00 Tramadol HCl (Ultram) 100 mg DAILY GTB Last administered on 08/10/17 09:41; Admin Dose 100 MG; Start 07/22/17 at 09:00 Acetaminophen/ Hydrocodone Bitart ([place] (5/325)) 1 tab Q6H PRN GTB PAIN LEVEL 7-10; Start 07/22/17 at 05:30 Miscellaneous Information 1 ea NOTE XX ; Start 07/22/17 at 15:00 Glucose (Glutose) 15 gm Q15M PRN PO DECREASED GLUCOSE; Start 07/22/17 at 15:00 Glucose (Glutose) 22.5 gm Q15M PRN PO DECREASED GLUCOSE; Start 07/22/17 at 15: 00 Dextrose (D50w Syringe) 25 ml Q15M PRN IV DECREASED GLUCOSE; Start 07/22/17 at 15:00 Dextrose (D50w Syringe) 50 ml Q15M PRN IV DECREASED GLUCOSE; Start 07/22/17 at 15:00 Glucagon (Glucagen) 1 mg Q15M PRN IM DECREASED GLUCOSE; Start 07/22/17 at 15: 00 Glucose (Glutose) 15 gm Q15M PRN BUCCAL DECREASED GLUCOSE; Start 07/22/17 at 15:00 Linezolid (Zyvox) 600 mg BID PO Last administered on 08/10/17 09:42; Admin Dose 600 MG; Start 07/23/17 at 21:00 Fluconazole (Diflucan) 100 mg DAILY PO Last administered on 08/10/17 09:40; Admin Dose 100 MG; Start 07/25/17 at 09:00 Sodium Hypochlorite (Dakin'S (Dilute 1/40%)) 1 applic BID IRR Last administered on 08/10/17 09:42; Admin Dose 1 APPLIC; Start 07/26/17 at 21:00 Lansoprazole (Prevacid) 30 mg BID@06,18 PO Last administered on 08/10/17 06:05 ; Admin Dose 30 MG; Start 07/26/17 at 18:00 Zinc Sulfate (Zinc Sulfate) 220 mg DAILY GTB Last administered on 08/10/17 09: 41; Admin Dose 220 MG; Start 07/29/17 at 09:00 Ascorbic Acid (Vitamin C) 500 mg DAILY GTB Last administered on 08/10/17 09:39 ; Admin Dose 500 MG; Start 07/29/17 at 09:00 Collagenase (Santyl) 1 applic PRN PRN TOP PRN; Start 08/01/17 at 04:30 Collagenase 1 applic 1 applic DAILY TOP Last administered on 08/10/17 09:42; Admin Dose 1 APPLIC; Start 08/01/17 at 09:00 Colistimethate Sodium/Sodium Chloride (Coly-Mycin/NS) 100 ml @ 200 mls/hr Q24H IVPB Last administered on 08/10/17 09:39; Admin Dose 200 MLS/HR; Start at 09:00 Insulin Aspart (Novolog Insulin Pen) NOVOLOG *MILD* ALGORI... Q4 SC Last administered on 08/10/17 13:55; Admin Dose 3 UNIT; Start 08/04/17 at 17:00 Atenolol (Tenormin) 25 mg BID PO ; Start 08/09/17 at 21:00 Insulin Glargine (Lantus) 30 unit BID@08,20 SC ; Start 08/10/17 at 20:00 LIZETTE ALEX MD Aug 10, 2017 15:48
--- NOTE | 2017-08-10 17:17 | PN ---
Date/Time of Note Date/Time of Note DATE: 08/10/17 TIME: 17:12 Assessment/Plan VTE Prophylaxis VTE Prophylaxis Intervention: SCD's Lines/Catheters IV Catheter Type (from [facility]): PICC Line Urinary Cath still in place: Yes Assessment/Plan Assessment/Plan - Hypokalemia- repalce K, bmp AM -Sepsis secondary to UTI, possible pneumonia, infected wounds, osteo,septic arthritis, synovitis. Continue antibiotics per ID . Dr. Zavaleta is following in infection disease consultation. -Multiple decubitus ulcer with posterior and possible septic arthritis, status post sacral wound debridement on 08/04. Dr. High is following in general surgery consultation. Continue antibiotics per ID. -Anemia of chronic disease, continue Epogen. Dr. Ruiz is following in gastroenterology consultation. -Diabetes mellitus, continue Lantus and NovoLog per sliding scale with Accu- Chek every 4 hours. -Advanced multiple sclerosis -Ventilator dependent respiratory failure. Dr. Blackwell is following in pulmonology consultation. -Dysphagia with PEG -Acute on chronic encephalopathy. Further recommendations based on clinical course. Plan of care discussed with Dr. Taylor. Problems: Subjective 24 Hr Interval Summary Subjective hx not possible: pt non-verbal Constitutional: requiring IVF, requiring O2 Exam/Review of Systems Vital Signs Vitals Vital Signs Date Time Temp Pulse Resp B/P Pulse Ox O2 Delivery O2 Flow Rate FiO2 08/10/17 16:37 105 08/10/17 16:32 30 08/10/17 15:20 13 100 08/10/17 15:09 97.8 107/59 Intake and Output 08/09/17 08/09/17 08/10/17 15:00 23:00 07:00 Intake Total 1300 ml 1300 ml Output Total 750 ml 700 ml Balance 550 ml 600 ml Exam Respiratory: diminished breath sounds Gastrointestinal: other Musculoskeletal: muscle weakness Extremities: normal pulses Neurological: unresponsive Results Result Diagram: 08/10/17 1412 08/10/17 1412 Results 24 hrs Laboratory Tests Test 08/09/17 17:48 08/09/17 20:32 08/10/17 01:16 08/10/17 06:04 Bedside Glucose 172 183 218 211 Test 08/10/17 09:27 08/10/17 12:44 08/10/17 14:12 Bedside Glucose 255 H 224 H White Blood Count 6.6 Red Blood Count 3.83 #L Hemoglobin 9.8 #L Hematocrit 32.5 #L Mean Corpuscular Volume 84.9 Mean Corpuscular Hemoglobin 25.6 L Mean Corpuscular Hemoglobin Concent 30.2 L Red Cell Distribution Width 17.6 H Platelet Count 276 Mean Platelet Volume 11.6 H Neutrophils % 69.7 Lymphocytes % 16.5 Monocytes % 5.6 Eosinophils % 6.5 Basophils % 0.3 Nucleated Red Blood Cells % 0.0 Neutrophils # 4.6 Lymphocytes # 1.1 Monocytes # 0.4 Eosinophils # 0.4 Basophils # 0.0 Nucleated Red Blood Cells # 0.0 Sodium Level 144 Potassium Level 3.4 L Chloride Level 109 Carbon Dioxide Level 22 Anion Gap 16 Blood Urea Nitrogen 43 H Creatinine 1.93 H Glucose Level 216 Calcium Level 10.6 H Medications Medications Current Medications Miscellaneous Information (Pending VOSSyl Order For Wound Care) This patient stenr... PRN PRN XX WOUND CARE; Start 07/22/17 at 03:30 Acetaminophen (Tylenol Tab) 650 mg Q4 PRN GTB ELEVATED TEMPERATURE Last administered on 08/10/17 09:39; Admin Dose 650 MG; Start 07/22/17 at 05:30 Baclofen (Lioresal) 20 mg TID GTB Last administered on 08/10/17 12:44; Admin Dose 20 MG; Start 07/22/17 at 09:00 Bisacodyl (Dulcolax Supp) 10 mg DAILY PRN [place] CONSTIPATION; Start 07/22/17 at 05:30 Docusate Sodium (Colace Liquid Cup) 100 mg BID GTB Last administered on 09:41; Admin Dose 100 MG; Start 07/22/17 at 09:00 Epoetin Andrey (Epogen (Esrd)) 15,000 units MoWeFr@17 SC Last administered on 17:47; Admin Dose 15,000 UNITS; Start 07/24/17 at 17:00 Magnesium Hydroxide (Milk Of Mag) 30 ml Q24H PRN [place] CONSTIPATION; Start at 05:30 Magnesium Oxide (Mag-Ox 400) 800 mg DAILY GTB Last administered on 08/10/17 09 :39; Admin Dose 800 MG; Start 07/22/17 at 09:00 Metoclopramide HCl (Reglan) 10 mg BID GTB Last administered on 08/10/17 09:40 ; Admin Dose 10 MG; Start 07/22/17 at 09:00 Mineral Oil (Fleet Mineral Oil Enema) 133 ml DAILY PRN [place] CONSTIPATION; Start 07/22/17 at 05:30 Multivitamins Therapeutic (Theragran) 1 tab DAILY GTB Last administered on 08/10 09:41; Admin Dose 1 TAB; Start 07/22/17 at 09:00 Sucralfate (Carafate) 1 gm DAILY GTB Last administered on 08/09/17 20:43; Admin Dose 1 GM; Start 07/22/17 at 09:00 Tramadol HCl (Ultram) 100 mg DAILY GTB Last administered on 08/10/17 09:41; Admin Dose 100 MG; Start 07/22/17 at 09:00 Acetaminophen/ Hydrocodone Bitart ([place] (5/325)) 1 tab Q6H PRN GTB PAIN LEVEL 7-10; Start 07/22/17 at 05:30 Miscellaneous Information 1 ea NOTE XX ; Start 07/22/17 at 15:00 Glucose (Glutose) 15 gm Q15M PRN PO DECREASED GLUCOSE; Start 07/22/17 at 15:00 Glucose (Glutose) 22.5 gm Q15M PRN PO DECREASED GLUCOSE; Start 07/22/17 at 15: 00 Dextrose (D50w Syringe) 25 ml Q15M PRN IV DECREASED GLUCOSE; Start 07/22/17 at 15:00 Dextrose (D50w Syringe) 50 ml Q15M PRN IV DECREASED GLUCOSE; Start 07/22/17 at 15:00 Glucagon (Glucagen) 1 mg Q15M PRN IM DECREASED GLUCOSE; Start 07/22/17 at 15: 00 Glucose (Glutose) 15 gm Q15M PRN BUCCAL DECREASED GLUCOSE; Start 07/22/17 at 15:00 Linezolid (Zyvox) 600 mg BID PO Last administered on 08/10/17 09:42; Admin Dose 600 MG; Start 07/23/17 at 21:00 Fluconazole (Diflucan) 100 mg DAILY PO Last administered on 08/10/17 09:40; Admin Dose 100 MG; Start 07/25/17 at 09:00 Sodium Hypochlorite (Dakin'S (Dilute 1/40%)) 1 applic BID IRR Last administered on 08/10/17 09:42; Admin Dose 1 APPLIC; Start 07/26/17 at 21:00 Lansoprazole (Prevacid) 30 mg BID@06,18 PO Last administered on 08/10/17 06:05 ; Admin Dose 30 MG; Start 07/26/17 at 18:00 Zinc Sulfate (Zinc Sulfate) 220 mg DAILY GTB Last administered on 08/10/17 09: 41; Admin Dose 220 MG; Start 07/29/17 at 09:00 Ascorbic Acid (Vitamin C) 500 mg DAILY GTB Last administered on 08/10/17 09:39 ; Admin Dose 500 MG; Start 07/29/17 at 09:00 Collagenase (Santyl) 1 applic PRN PRN TOP PRN; Start 08/01/17 at 04:30 Collagenase 1 applic 1 applic DAILY TOP Last administered on 08/10/17 09:42; Admin Dose 1 APPLIC; Start 08/01/17 at 09:00 Colistimethate Sodium/Sodium Chloride (Coly-Mycin/NS) 100 ml @ 200 mls/hr Q24H IVPB Last administered on 08/10/17 09:39; Admin Dose 200 MLS/HR; Start at 09:00 Insulin Aspart (Novolog Insulin Pen) NOVOLOG *MILD* ALGORI... Q4 SC Last administered on 08/10/17 13:55; Admin Dose 3 UNIT; Start 08/04/17 at 17:00 Atenolol (Tenormin) 25 mg BID PO ; Start 08/09/17 at 21:00 Insulin Glargine 30 unit 30 unit BID@08,20 SC ; Start 08/10/17 at 20:00 Potassium Chloride/Dextrose (KCl/D5W) 110 ml @ 55 mls/hr ONCE ONCE IVPB ; Start 08/10/17 at 18:00; Stop 08/10/17 at 19:59 KATE LANDAVERDE Aug 10, 2017 17:17
[2017-08-10] MEDS ORDERED: POTASSIUM CHLORIDE 20 MEQ in DEXTROSE 5% 100 ML IVPB ONE (18:00)
[2017-08-10] MEDS ORDERED: INSULIN ASPART [NOVOLOG] 3 ML PEN SC SCH ×2 (18:30→21:00)
[2017-08-10] MEDS: Insulin NOVOLOG SS MODERATE Algorithm(NPO/TPN/ENTERAL FEEDS) SC SCH (21:00)
[2017-08-10] MEDS: INSULIN GLARGINE [LANtus] 3 ML PEN SC SCH (21:02)
[2017-08-11] VITALS (19 sets, daily range): BP systolic 95–117; BP diastolic 51–72; PULSE 97–122; RESP 12–20
[2017-08-11] MEDS ORDERED: ACCU-CHEK XX SCH ×2 (02:00)
[2017-08-11] MEDS: Insulin NOVOLOG SS MODERATE Algorithm(NPO/TPN/ENTERAL FEEDS) SC SCH ×5 (02:06→18:26)
[2017-08-11] MEDS: LANSOPRAZOLE 30 MG CAP PO SCH ×2 (05:42→18:08)
[2017-08-11 07:38] LABS: BASOPHILS % 0.3 % (0.0-2.0); EOSINOPHILS # 0.3 10^3/ul (0.0-0.5); EOSINOPHILS % 5.3 % (0.0-7.0); LYMPHOCYTES # 1.1 10^3/ul (0.8-2.9); LYMPHOCYTES % 17.8 % (15.0-51.0); MEAN CORPUSCULAR HGB CONC 29.4 g/dl (32.0-37.0); MEAN PLATELET VOLUME 12.2 fl (7.4-10.4); MONOCYTE # 0.4 10^3/ul (0.3-0.9); NEUTROPHIL # 4.3 10^3/ul (1.6-7.5); NEUTROPHILS % 69.1 % (39.0-77.0); PLATELET COUNT 284 10^3/UL (140-415); RED CELL DISTRIBUTION WIDTH 18.2 % (11.5-14.5); WHITE BLOOD COUNT 6.2 10^3/ul (4.8-10.8)
[2017-08-11 08:05] LABS: CREATININE 1.92 mg/dl (0.44-1.00); POTASSIUM 3.7 mmol/L (3.5-5.1)
[2017-08-11] MEDS: COLLAGENASE 30 GM TUBE TOP SCH (09:00)
[2017-08-11] MEDS: ATENOLOL 25 MG TAB PO SCH (09:00)
[2017-08-11] MEDS: MAGNESIUM OXIDE 400 MG TAB GTB SCH (09:01)
[2017-08-11] MEDS: SUCRALFATE 1 GM TAB GTB SCH (09:01)
[2017-08-11] MEDS: METOCLOPRAMIDE 10 MG TAB GTB SCH (09:01)
[2017-08-11] MEDS: DOCUSATE SODIUM 10 MG/ML (10ML CUP) GTB SCH (09:01)
[2017-08-11] MEDS: ZINC SULFATE 220 MG CAP GTB SCH (09:02)
[2017-08-11] MEDS: BACLOFEN 10 MG TAB GTB SCH ×2 (09:02→14:00)
[2017-08-11] MEDS: COLISTIMETHATE 135 MG in SOD CHLORIDE 0.9% 100 ML IVPB SCH (09:02)
[2017-08-11] MEDS: ASCORBIC ACID 500 MG TAB GTB SCH (09:02)
[2017-08-11] MEDS: MULTIVITAMINS THERAPEUTIC TAB GTB SCH (09:02)
[2017-08-11] MEDS: FLUCONAZOLE 100 MG TAB PO SCH (09:02)
[2017-08-11] MEDS: ZYVOX 600 MG TAB PO SCH (09:02)
[2017-08-11] MEDS: SODIUM HYPOCHLORITE 1/40% 1L IRRIG IRR SCH (09:03)
[2017-08-11] MEDS: traMADol 50 MG TAB GTB SCH (09:32)
[2017-08-11] MEDS: INSULIN GLARGINE [LANtus] 3 ML PEN SC SCH (10:24)
--- NOTE | 2017-08-11 12:34 | PN ---
Date/Time of Note Date/Time of Note DATE: 08/11/17 TIME: 12:31 Assessment/Plan Lines/Catheters IV Catheter Type (from [facility]): PICC Line Joel in Place (from [facility]): Yes Assessment/Plan Chief Complaint/Hosp Course 1. Multiple wound: 2/2 immobility; cultures noted: s/p debridement; MRI with osteo and septic arthritis, synovitis -recommend ortho consult -recommend family meeting to discuss goals of care -debridement prn -local care-bid -frequent turning and off-loading -low air loss mattress -vitamin c -short term zinc -optimize nutrition -abx 2. Hypochromic anemia: no acute bleed noted -monitor -transfuse as needed 3. UTI: cultures noted -abx per sensitivity -frequent bladder emptying/cath care 4. VDRF -pulm toilet -respiratory treatments 5. Persistent fevers and tachycardia: likely 2/2 #3, 1, tsh nl -as above Thank you. Patient seen and examined in collaboration with Dr. Hi High. Problems: Subjective 24 Hr Interval Summary No acute changes. Still with tachycardia. Fevers yesterday. No congested cough, cp, palpitations, stern, dizziness, n/v/d/dysuria. Exam/Review of Systems Vital Signs Vitals Vital Signs Date Time Temp Pulse Resp B/P Pulse Ox O2 Delivery O2 Flow Rate FiO2 08/11/17 11:26 98.3 123 19 117/72 98 08/11/17 11:00 30 Intake and Output 08/10/17 08/10/17 08/11/17 14:59 22:59 06:59 Intake Total 1300 ml Output Total 1000 ml Balance 300 ml Exam Free Text/Dictation Constitutional: alert, other (nonverbal) Head: atraumatic, normocephalic Eyes: nl lids, nl sclera, No icteric ENMT: mucosa pink and moist, nl nasal mucosa & septum Neck: non-tender, other (trach), supple Respiratory: other (vent), No labored breathing Cardiovascular: regular rate and rhythm: Gastrointestinal: non-tender, other (peg; umbilical hernia, rotund), soft Extremities: normal pulses, other (stiffness) Neurological: other (withdraws from painful stimuli) Skin: other (multiple wounds: packed, min drainage, nonmalodorous, no periwound erythema) Results Result Diagram: 08/11/17 0607 08/11/17 0607 SANFORD RODRIGUEZ NP Aug 11, 2017 12:34
--- NOTE | 2017-08-11 13:16 | CONS ---
Date/Time of Note Date/Time of Note DATE: 08/11/17 TIME: 13:15 Consult Date/Type/Reason Admit Date/Time Jul 21, 2017 at 23:24 Initial Consult Date 07/22/17 Type of Consultation: Pulmonary Ordering Provider: FLEX DENNISON NP Subjective Patient remains comfortable. Objective Vital Signs Date Time Temp Pulse Resp B/P Pulse Ox O2 Delivery O2 Flow Rate FiO2 08/11/17 12:00 122 08/11/17 11:26 98.3 19 117/72 98 08/11/17 11:00 30 Intake and Output 08/10/17 08/10/17 08/11/17 14:59 22:59 06:59 Intake Total 1300 ml Output Total 1000 ml Balance 300 ml Exam GENERAL: Chronically ill-appearing lady on mechanical ventilation VITAL SIGNS: see below. HEENT: Pupils equal, round, and reactive to light. Tracheostomy site clean and intact. CARDIAC: S1, S2, 1/6 systolic ejection murmur CHEST: Diminished air entry bilaterally. ABDOMEN: Mildly distended. Bowel sounds present no guarding or rebound EXTREMITIES: No cyanosis, clubbing edema +1 NEUROLOGIC: Generalized weakness Results/Medications Result Diagram: 08/11/17 0607 08/11/17 0607 Results 24 hrs Laboratory Tests Test 08/10/17 14:12 08/10/17 17:18 08/10/17 20:47 08/11/17 02:01 White Blood Count 6.6 Red Blood Count 3.83 #L Hemoglobin 9.8 #L Hematocrit 32.5 #L Mean Corpuscular Volume 84.9 Mean Corpuscular Hemoglobin 25.6 L Mean Corpuscular Hemoglobin Concent 30.2 L Red Cell Distribution Width 17.6 H Platelet Count 276 Mean Platelet Volume 11.6 H Neutrophils % 69.7 Lymphocytes % 16.5 Monocytes % 5.6 Eosinophils % 6.5 Basophils % 0.3 Nucleated Red Blood Cells % 0.0 Neutrophils # 4.6 Lymphocytes # 1.1 Monocytes # 0.4 Eosinophils # 0.4 Basophils # 0.0 Nucleated Red Blood Cells # 0.0 Sodium Level 144 Potassium Level 3.4 L Chloride Level 109 Carbon Dioxide Level 22 Anion Gap 16 Blood Urea Nitrogen 43 H Creatinine 1.93 H Glucose Level 216 Calcium Level 10.6 H Bedside Glucose 210 202 196 Test 08/11/17 05:41 08/11/17 06:07 08/11/17 09:00 Bedside Glucose 201 186 White Blood Count 6.2 Red Blood Count 4.00 L Hemoglobin 10.0 L Hematocrit 34.0 L Mean Corpuscular Volume 85.0 Mean Corpuscular Hemoglobin 25.0 L Mean Corpuscular Hemoglobin Concent 29.4 L Red Cell Distribution Width 18.2 H Platelet Count 284 Mean Platelet Volume 12.2 H Neutrophils % 69.1 Lymphocytes % 17.8 Monocytes % 6.0 Eosinophils % 5.3 Basophils % 0.3 Nucleated Red Blood Cells % 0.0 Neutrophils # 4.3 Lymphocytes # 1.1 Monocytes # 0.4 Eosinophils # 0.3 Basophils # 0.0 Nucleated Red Blood Cells # 0.0 Sodium Level 144 Potassium Level 3.7 Chloride Level 109 Carbon Dioxide Level 22 Anion Gap 17 H Blood Urea Nitrogen 46 H Creatinine 1.92 H Glucose Level 201 Calcium Level 11.0 H Medications Current Medications Miscellaneous Information (Pending Santyl Order For Wound Care) This patient stern... PRN PRN XX WOUND CARE; Start 07/22/17 at 03:30 Acetaminophen (Tylenol Tab) 650 mg Q4 PRN GTB ELEVATED TEMPERATURE Last administered on 08/10/17 09:39; Admin Dose 650 MG; Start 07/22/17 at 05:30 Baclofen (Lioresal) 20 mg TID GTB Last administered on 08/11/17 09:02; Admin Dose 20 MG; Start 07/22/17 at 09:00 Bisacodyl (Dulcolax Supp) 10 mg DAILY PRN [place] CONSTIPATION; Start 07/22/17 at 05:30 Docusate Sodium (Colace Liquid Cup) 100 mg BID GTB Last administered on 09:01; Admin Dose 100 MG; Start 07/22/17 at 09:00 Epoetin Andrey (Epogen (Esrd)) 15,000 units MoWeFr@17 SC Last administered on 17:47; Admin Dose 15,000 UNITS; Start 07/24/17 at 17:00 Magnesium Hydroxide (Milk Of Mag) 30 ml Q24H PRN PO CONSTIPATION; Start at 05:30 Magnesium Oxide (Mag-Ox 400) 800 mg DAILY GTB Last administered on 08/11/17 09:01; Admin Dose 800 MG; Start 07/22/17 at 09:00 Metoclopramide HCl (Reglan) 10 mg BID GTB Last administered on 08/11/17 09:01 ; Admin Dose 10 MG; Start 07/22/17 at 09:00 Mineral Oil (Fleet Mineral Oil Enema) 133 ml DAILY PRN [place] CONSTIPATION; Start 07/22/17 at 05:30 Multivitamins Therapeutic (Theragran) 1 tab DAILY GTB Last administered on 09:02; Admin Dose 1 TAB; Start 07/22/17 at 09:00 Sucralfate (Carafate) 1 gm DAILY GTB Last administered on 08/11/17 09:01; Admin Dose 1 GM; Start 07/22/17 at 09:00 Tramadol HCl (Ultram) 100 mg DAILY GTB Last administered on 08/11/17 09:32; Admin Dose 100 MG; Start 07/22/17 at 09:00 Acetaminophen/ Hydrocodone Bitart ([place] (5/325)) 1 tab Q6H PRN GTB PAIN LEVEL 7-10; Start 07/22/17 at 05:30 Miscellaneous Information 1 ea NOTE XX ; Start 07/22/17 at 15:00 Glucose (Glutose) 15 gm Q15M PRN PO DECREASED GLUCOSE; Start 07/22/17 at 15:00 Glucose (Glutose) 22.5 gm Q15M PRN PO DECREASED GLUCOSE; Start 07/22/17 at 15: 00 Dextrose (D50w Syringe) 25 ml Q15M PRN IV DECREASED GLUCOSE; Start 07/22/17 at 15:00 Dextrose (D50w Syringe) 50 ml Q15M PRN IV DECREASED GLUCOSE; Start 07/22/17 at 15:00 Glucagon (Glucagen) 1 mg Q15M PRN IM DECREASED GLUCOSE; Start 07/22/17 at 15: 00 Glucose (Glutose) 15 gm Q15M PRN BUCCAL DECREASED GLUCOSE; Start 07/22/17 at 15:00 Linezolid (Zyvox) 600 mg BID PO Last administered on 08/11/17 09:02; Admin Dose 600 MG; Start 07/23/17 at 21:00 Fluconazole (Diflucan) 100 mg DAILY PO Last administered on 08/11/17 09:02; Admin Dose 100 MG; Start 07/25/17 at 09:00 Sodium Hypochlorite (Dakin'S (Dilute 1/40%)) 1 applic BID IRR Last administered on 08/11/17 09:03; Admin Dose 1 APPLIC; Start 07/26/17 at 21:00 Lansoprazole (Prevacid) 30 mg BID@06,18 PO Last administered on 08/11/17 05: 42; Admin Dose 30 MG; Start 07/26/17 at 18:00 Zinc Sulfate (Zinc Sulfate) 220 mg DAILY GTB Last administered on 08/11/17 09 :02; Admin Dose 220 MG; Start 07/29/17 at 09:00 Ascorbic Acid (Vitamin C) 500 mg DAILY GTB Last administered on 08/11/17 09: 02; Admin Dose 500 MG; Start 07/29/17 at 09:00 Collagenase (Santyl) 1 applic PRN PRN TOP PRN; Start 08/01/17 at 04:30 Collagenase 1 applic 1 applic DAILY TOP Last administered on 08/11/17 09:00; Admin Dose 1 APPLIC; Start 08/01/17 at 09:00 Colistimethate Sodium/Sodium Chloride (Coly-Mycin/NS) 100 ml @ 200 mls/hr Q24H IVPB Last administered on 08/11/17 09:02; Admin Dose 200 MLS/HR; Start at 09:00 Atenolol (Tenormin) 25 mg BID PO Last administered on 08/10/17 20:54; Admin Dose 25 MG; Start 08/09/17 at 21:00 Insulin Glargine (Lantus) 30 unit BID@08,20 SC Last administered on 08/11/17 10:24; Admin Dose 30 UNIT; Start 08/10/17 at 20:00 Diagnostic Test (Pha) (Accu-Chek) 1 ea 02 XX Last administered on 08/11/17 02 :03; Admin Dose 1 EA; Start 08/11/17 at 02:00 Insulin Aspart (Novolog Insulin Pen) (Adult [place] Insulin - Moder... Q4 SC Last administered on 08/11/17 10:24; Admin Dose 4 UNIT; Start 08/10/17 at 21:00 Assessment/Plan Chief Complaint/Hosp Course Additional Assessment/Plan IMP: 1. Anemia--likely of chronic disease. 2. Urosepsis no calculi noted. 3. VDRF 4. Encephalopathy RECS: 1. Vent support 2. BD's/CPT 3. Abx per ID 4. GIB w/u per GI hemoglobin remained stable. Pending transfer to [place] unit. Problems: ULYSSES FORRESTER MD, [facility] Aug 11, 2017 13:16
--- NOTE | 2017-08-11 13:25 | CONS ---
Date/Time of Note Date/Time of Note DATE: 08/11/17 TIME: 13:24 Assessment/Plan Assessment/Plan Additional Assessment/Plan 1. Sinus tachycardia-overall improved on BB/NL EF by echo - still with sinus tach, likely resp driven vs infection - con't supportive care now - stable overall, chronically ill and debilitated 2. High fevers- Rx per primary, on anti-Bx - TREATED 3. Urosepsis - treated 4. Acute kidney injury- con't to hydrate as tolerated. 5. Ventilator dependent respiratory failure - trach in place, will monitor now. Con't Resp RX. 6. Anemia of chronic disease- H/H stable, no bleeding now. 7.DM - keep euglycemic. Consultation Date/Type/Reason Admit Date/Time Jul 21, 2017 at 23:24 Initial Consult Date 07/26/17 Type of Consultation: Pulmonary Referring Provider: FLEX DENNISON NP 24 HR Interval Summary Free Text/Dictation NO acute events - BP in good range - sinus tach, chronic ROS: No fever, no chills, no nausea, no vomiting, no diarrhea/constipation No recent weight changes No chest pain, no PND, no orthopnea No dizziness, blurred vision No thirst, no heat or cold intolerance (per nurse) Exam/Review of Systems Vital Signs Vitals Vital Signs Date Time Temp Pulse Resp B/P Pulse Ox O2 Delivery O2 Flow Rate FiO2 08/11/17 12:00 122 08/11/17 11:26 98.3 19 117/72 98 08/11/17 11:00 30 Intake and Output 08/10/17 08/10/17 08/11/17 14:59 22:59 06:59 Intake Total 1300 ml Output Total 1000 ml Balance 300 ml Exam General: WN/WD/NAD, AOx 0 HEENT: Unicetric/atraumatic/EOMI (does not follow commands) NECK: JVD elevated, no thyromegaly trach Lymph: no lymphadenopathy HEART: regular with no S3, II/ systolic murmur at apex LUNGS: Coarse sounds ABD: soft, NT, ND, +BS : Intact Neuro: non focal SKIN: chronic changes EXT: trace edema Results Result Diagram: 08/11/17 0607 08/11/17 0607 Results 24 hrs Laboratory Tests Test 08/10/17 14:12 08/10/17 17:18 08/10/17 20:47 08/11/17 02:01 White Blood Count 6.6 Red Blood Count 3.83 #L Hemoglobin 9.8 #L Hematocrit 32.5 #L Mean Corpuscular Volume 84.9 Mean Corpuscular Hemoglobin 25.6 L Mean Corpuscular Hemoglobin Concent 30.2 L Red Cell Distribution Width 17.6 H Platelet Count 276 Mean Platelet Volume 11.6 H Neutrophils % 69.7 Lymphocytes % 16.5 Monocytes % 5.6 Eosinophils % 6.5 Basophils % 0.3 Nucleated Red Blood Cells % 0.0 Neutrophils # 4.6 Lymphocytes # 1.1 Monocytes # 0.4 Eosinophils # 0.4 Basophils # 0.0 Nucleated Red Blood Cells # 0.0 Sodium Level 144 Potassium Level 3.4 L Chloride Level 109 Carbon Dioxide Level 22 Anion Gap 16 Blood Urea Nitrogen 43 H Creatinine 1.93 H Glucose Level 216 Calcium Level 10.6 H Bedside Glucose 210 202 196 Test 08/11/17 05:41 08/11/17 06:07 08/11/17 09:00 Bedside Glucose 201 186 White Blood Count 6.2 Red Blood Count 4.00 L Hemoglobin 10.0 L Hematocrit 34.0 L Mean Corpuscular Volume 85.0 Mean Corpuscular Hemoglobin 25.0 L Mean Corpuscular Hemoglobin Concent 29.4 L Red Cell Distribution Width 18.2 H Platelet Count 284 Mean Platelet Volume 12.2 H Neutrophils % 69.1 Lymphocytes % 17.8 Monocytes % 6.0 Eosinophils % 5.3 Basophils % 0.3 Nucleated Red Blood Cells % 0.0 Neutrophils # 4.3 Lymphocytes # 1.1 Monocytes # 0.4 Eosinophils # 0.3 Basophils # 0.0 Nucleated Red Blood Cells # 0.0 Sodium Level 144 Potassium Level 3.7 Chloride Level 109 Carbon Dioxide Level 22 Anion Gap 17 H Blood Urea Nitrogen 46 H Creatinine 1.92 H Glucose Level 201 Calcium Level 11.0 H Medications Medications Current Medications Miscellaneous Information (Pending Santyl Order For Wound Care) This patient stern... PRN PRN XX WOUND CARE; Start 07/22/17 at 03:30 Acetaminophen (Tylenol Tab) 650 mg Q4 PRN GTB ELEVATED TEMPERATURE Last administered on 08/10/17t 09:39; Admin Dose 650 MG; Start 07/22/17 at 05:30 Baclofen (Lioresal) 20 mg TID GTB Last administered on 08/11/17 09:02; Admin Dose 20 MG; Start 07/22/17 at 09:00 Bisacodyl (Dulcolax Supp) 10 mg DAILY PRN [place] CONSTIPATION; Start 07/22/17 at 05:30 Docusate Sodium (Colace Liquid Cup) 100 mg BID GTB Last administered on 09:01; Admin Dose 100 MG; Start 07/22/17 at 09:00 Epoetin Andrey (Epogen (Esrd)) 15,000 units MoWeFr@17 SC Last administered on 17:47; Admin Dose 15,000 UNITS; Start 07/24/17 at 17:00 Magnesium Hydroxide (Milk Of Mag) 30 ml Q24H PRN PO CONSTIPATION; Start at 05:30 Magnesium Oxide (Mag-Ox 400) 800 mg DAILY GTB Last administered on 08/11/17 09:01; Admin Dose 800 MG; Start 07/22/17 at 09:00 Metoclopramide HCl (Reglan) 10 mg BID GTB Last administered on 08/11/17 09:01 ; Admin Dose 10 MG; Start 07/22/17 at 09:00 Mineral Oil (Fleet Mineral Oil Enema) 133 ml DAILY PRN [place] CONSTIPATION; Start 07/22/17 at 05:30 Multivitamins Therapeutic (Theragran) 1 tab DAILY GTB Last administered on 09:02; Admin Dose 1 TAB; Start 07/22/17 at 09:00 Sucralfate (Carafate) 1 gm DAILY GTB Last administered on 08/11/17 09:01; Admin Dose 1 GM; Start 07/22/17 at 09:00 Tramadol HCl (Ultram) 100 mg DAILY GTB Last administered on 08/11/17 09:32; Admin Dose 100 MG; Start 07/22/17 at 09:00 Acetaminophen/ Hydrocodone Bitart ([place] (5/325)) 1 tab Q6H PRN GTB PAIN LEVEL 7-10; Start 07/22/17 at 05:30 Miscellaneous Information 1 ea NOTE XX ; Start 07/22/17 at 15:00 Glucose (Glutose) 15 gm Q15M PRN PO DECREASED GLUCOSE; Start 07/22/17 at 15:00 Glucose (Glutose) 22.5 gm Q15M PRN PO DECREASED GLUCOSE; Start 07/22/17 at 15: 00 Dextrose (D50w Syringe) 25 ml Q15M PRN IV DECREASED GLUCOSE; Start 07/22/17 at 15:00 Dextrose (D50w Syringe) 50 ml Q15M PRN IV DECREASED GLUCOSE; Start 07/22/17 at 15:00 Glucagon (Glucagen) 1 mg Q15M PRN IM DECREASED GLUCOSE; Start 07/22/17 at 15: 00 Glucose (Glutose) 15 gm Q15M PRN BUCCAL DECREASED GLUCOSE; Start 07/22/17 at 15:00 Linezolid (Zyvox) 600 mg BID PO Last administered on 08/11/17 09:02; Admin Dose 600 MG; Start 07/23/17 at 21:00 Fluconazole (Diflucan) 100 mg DAILY PO Last administered on 08/11/17 09:02; Admin Dose 100 MG; Start 07/25/17 at 09:00 Sodium Hypochlorite (Dakin'S (Dilute 1/40%)) 1 applic BID IRR Last administered on 08/11/17 09:03; Admin Dose 1 APPLIC; Start 07/26/17 at 21:00 Lansoprazole (Prevacid) 30 mg BID@06,18 PO Last administered on 08/11/17 05: 42; Admin Dose 30 MG; Start 07/26/17 at 18:00 Zinc Sulfate (Zinc Sulfate) 220 mg DAILY GTB Last administered on 08/11/17 09 :02; Admin Dose 220 MG; Start 07/29/17 at 09:00 Ascorbic Acid (Vitamin C) 500 mg DAILY GTB Last administered on 08/11/17 09: 02; Admin Dose 500 MG; Start 07/29/17 at 09:00 Collagenase (Santyl) 1 applic PRN PRN TOP PRN; Start 08/01/17 at 04:30 Collagenase 1 applic 1 applic DAILY TOP Last administered on 08/11/17 09:00; Admin Dose 1 APPLIC; Start 08/01/17 at 09:00 Colistimethate Sodium/Sodium Chloride (Coly-Mycin/NS) 100 ml @ 200 mls/hr Q24H IVPB Last administered on 08/11/17 09:02; Admin Dose 200 MLS/HR; Start at 09:00 Atenolol (Tenormin) 25 mg BID PO Last administered on 08/10/17 20:54; Admin Dose 25 MG; Start 08/09/17 at 21:00 Insulin Glargine (Lantus) 30 unit BID@08,20 SC Last administered on 08/11/17 10:24; Admin Dose 30 UNIT; Start 08/10/17 at 20:00 Diagnostic Test (Pha) (Accu-Chek) 1 ea 02 XX Last administered on 08/11/17 02 :03; Admin Dose 1 EA; Start 08/11/17 at 02:00 Insulin Aspart (Novolog Insulin Pen) (Adult SC Insulin - Moder... Q4 SC Last administered on 08/11/17 10:24; Admin Dose 4 UNIT; Start 08/10/17 at 21:00 MI RICHMOND MD Aug 11, 2017 13:25
--- NOTE | 2017-08-11 13:27 | CONS ---
Date/Time of Note Date/Time of Note DATE: 08/11/17 TIME: 13:26 Assessment/Plan Assessment/Plan Chief Complaint/Hosp Course No acute changes, continues to spike fevers, noncommunicative, looks comfortable Microbiology: Wound culture growing Acinetobacter, VRE, Pilar albicans, MRSA , coag negative staph species. Blood culture grew staph species, urine culture growing gram-negative rods Indwelling: Trach/PEG/PICC/Joel Abx: Colistin, Diflucan, Zyvox ALL: PCN, Levaquin, Vanco, Cephalosporins GENERAL: The patient is a nonverbal female who is awake, noncommunicative, no acute distress. SKIN: Without generalized rash. HEENT: Within normal limits. NECK: Supple. Lymph nodes nonpalpable. She has a tracheostomy in place. SKIN: She has a PICC line on the left side in the superior vena cava. CHEST: Decreased breath sounds at the bases. HEART: Without murmur or gallop. ABDOMEN: Soft, nontender. G-tube in place. + BT EXTREMITIES: Without cyanosis, clubbing or edema. Assessment: 1. Sepsis with ongoing fevers and tachycardia==> multiple etiologies 2. Persistent UTI==> GNR 2. Multiple chronic wounds with evidence of R ischial chronic OM and possible L hip septic arthritis per MRI 3. Anemia 4. ARF=> nephrology follows 5. VDRF 6. Chronic encephalopathy 7. Bacteremia, possibly contaminant vs 2 to wounds 8. Constipation/fecal impaction Plan: Clinically unchanged, continue abx, continue local wound care per surgical rec-s, consider ortho eval for poss L hip fluid aspiration, laxatives/ enema prn, prognosis for meaningful recovery is poor, consider palliative care eval staff Problems: Consultation Date/Type/Reason Admit Date/Time Jul 21, 2017 at 23:24 Initial Consult Date 07/22/17 Type of Consultation: ID Referring Provider: FLEX DENNISON NP Exam/Review of Systems Vital Signs Vitals Vital Signs Date Time Temp Pulse Resp B/P Pulse Ox O2 Delivery O2 Flow Rate FiO2 08/11/17 12:00 122 08/11/17 11:26 98.3 19 117/72 98 08/11/17 11:00 30 Intake and Output 08/10/17 08/10/17 08/11/17 15:00 23:00 07:00 Intake Total 1300 ml Output Total 1000 ml Balance 300 ml Results Result Diagram: 08/11/17 0607 08/11/17 0607 Results 24 hrs Laboratory Tests Test 08/10/17 14:12 08/10/17 17:18 08/10/17 20:47 08/11/17 02:01 White Blood Count 6.6 Red Blood Count 3.83 #L Hemoglobin 9.8 #L Hematocrit 32.5 #L Mean Corpuscular Volume 84.9 Mean Corpuscular Hemoglobin 25.6 L Mean Corpuscular Hemoglobin Concent 30.2 L Red Cell Distribution Width 17.6 H Platelet Count 276 Mean Platelet Volume 11.6 H Neutrophils % 69.7 Lymphocytes % 16.5 Monocytes % 5.6 Eosinophils % 6.5 Basophils % 0.3 Nucleated Red Blood Cells % 0.0 Neutrophils # 4.6 Lymphocytes # 1.1 Monocytes # 0.4 Eosinophils # 0.4 Basophils # 0.0 Nucleated Red Blood Cells # 0.0 Sodium Level 144 Potassium Level 3.4 L Chloride Level 109 Carbon Dioxide Level 22 Anion Gap 16 Blood Urea Nitrogen 43 H Creatinine 1.93 H Glucose Level 216 Calcium Level 10.6 H Bedside Glucose 210 202 196 Test 08/11/17 05:41 08/11/17 06:07 08/11/17 09:00 Bedside Glucose 201 186 White Blood Count 6.2 Red Blood Count 4.00 L Hemoglobin 10.0 L Hematocrit 34.0 L Mean Corpuscular Volume 85.0 Mean Corpuscular Hemoglobin 25.0 L Mean Corpuscular Hemoglobin Concent 29.4 L Red Cell Distribution Width 18.2 H Platelet Count 284 Mean Platelet Volume 12.2 H Neutrophils % 69.1 Lymphocytes % 17.8 Monocytes % 6.0 Eosinophils % 5.3 Basophils % 0.3 Nucleated Red Blood Cells % 0.0 Neutrophils # 4.3 Lymphocytes # 1.1 Monocytes # 0.4 Eosinophils # 0.3 Basophils # 0.0 Nucleated Red Blood Cells # 0.0 Sodium Level 144 Potassium Level 3.7 Chloride Level 109 Carbon Dioxide Level 22 Anion Gap 17 H Blood Urea Nitrogen 46 H Creatinine 1.92 H Glucose Level 201 Calcium Level 11.0 H Medications Medications Current Medications Miscellaneous Information (Pending Santyl Order For Wound Care) This patient stern... PRN PRN XX WOUND CARE; Start 07/22/17 at 03:30 Acetaminophen (Tylenol Tab) 650 mg Q4 PRN GTB ELEVATED TEMPERATURE Last administered on 08/10/17 09:39; Admin Dose 650 MG; Start 07/22/17 at 05:30 Baclofen (Lioresal) 20 mg TID GTB Last administered on 08/11/17 09:02; Admin Dose 20 MG; Start 07/22/17 at 09:00 Bisacodyl (Dulcolax Supp) 10 mg DAILY PRN [place] CONSTIPATION; Start 07/22/17 at 05:30 Docusate Sodium (Colace Liquid Cup) 100 mg BID GTB Last administered on 09:01; Admin Dose 100 MG; Start 07/22/17 at 09:00 Epoetin Andrey (Epogen (Esrd)) 15,000 units MoWeFr@17 SC Last administered on 17:47; Admin Dose 15,000 UNITS; Start 07/24/17 at 17:00 Magnesium Hydroxide (Milk Of Mag) 30 ml Q24H PRN [place] CONSTIPATION; Start at 05:30 Magnesium Oxide (Mag-Ox 400) 800 mg DAILY GTB Last administered on 08/11/17 09:01; Admin Dose 800 MG; Start 07/22/17 at 09:00 Metoclopramide HCl (Reglan) 10 mg BID GTB Last administered on 08/11/17 09:01 ; Admin Dose 10 MG; Start 07/22/17 at 09:00 Mineral Oil (Fleet Mineral Oil Enema) 133 ml DAILY PRN [place] CONSTIPATION; Start 07/22/17 at 05:30 Multivitamins Therapeutic (Theragran) 1 tab DAILY GTB Last administered on 09:02; Admin Dose 1 TAB; Start 07/22/17 at 09:00 Sucralfate (Carafate) 1 gm DAILY GTB Last administered on 08/11/17 09:01; Admin Dose 1 GM; Start 07/22/17 at 09:00 Tramadol HCl (Ultram) 100 mg DAILY GTB Last administered on 08/11/17 09:32; Admin Dose 100 MG; Start 07/22/17 at 09:00 Acetaminophen/ Hydrocodone Bitart ([place] (5/325)) 1 tab Q6H PRN GTB PAIN LEVEL 7-10; Start 07/22/17 at 05:30 Miscellaneous Information 1 ea NOTE XX ; Start 07/22/17 at 15:00 Glucose (Glutose) 15 gm Q15M PRN PO DECREASED GLUCOSE; Start 07/22/17 at 15:00 Glucose (Glutose) 22.5 gm Q15M PRN PO DECREASED GLUCOSE; Start 07/22/17 at 15: 00 Dextrose (D50w Syringe) 25 ml Q15M PRN IV DECREASED GLUCOSE; Start 07/22/17 at 15:00 Dextrose (D50w Syringe) 50 ml Q15M PRN IV DECREASED GLUCOSE; Start 07/22/17 at 15:00 Glucagon (Glucagen) 1 mg Q15M PRN IM DECREASED GLUCOSE; Start 07/22/17 at 15: 00 Glucose (Glutose) 15 gm Q15M PRN BUCCAL DECREASED GLUCOSE; Start 07/22/17 at 15:00 Linezolid (Zyvox) 600 mg BID PO Last administered on 08/11/17 09:02; Admin Dose 600 MG; Start 07/23/17 at 21:00 Fluconazole (Diflucan) 100 mg DAILY PO Last administered on 08/11/17 09:02; Admin Dose 100 MG; Start 07/25/17 at 09:00 Sodium Hypochlorite (Dakin'S (Dilute 1/40%)) 1 applic BID IRR Last administered on 08/11/17 09:03; Admin Dose 1 APPLIC; Start 07/26/17 at 21:00 Lansoprazole (Prevacid) 30 mg BID@06,18 PO Last administered on 08/11/17 05: 42; Admin Dose 30 MG; Start 07/26/17 at 18:00 Zinc Sulfate (Zinc Sulfate) 220 mg DAILY GTB Last administered on 08/11/17 09 :02; Admin Dose 220 MG; Start 07/29/17 at 09:00 Ascorbic Acid (Vitamin C) 500 mg DAILY GTB Last administered on 08/11/17 09: 02; Admin Dose 500 MG; Start 07/29/17 at 09:00 Collagenase (Santyl) 1 applic PRN PRN TOP PRN; Start 08/01/17 at 04:30 Collagenase 1 applic 1 applic DAILY TOP Last administered on 08/11/17 09:00; Admin Dose 1 APPLIC; Start 08/01/17 at 09:00 Colistimethate Sodium/Sodium Chloride (Coly-Mycin/NS) 100 ml @ 200 mls/hr Q24H IVPB Last administered on 08/11/17 09:02; Admin Dose 200 MLS/HR; Start at 09:00 Atenolol (Tenormin) 25 mg BID PO Last administered on 08/10/17 20:54; Admin Dose 25 MG; Start 08/09/17 at 21:00 Insulin Glargine (Lantus) 30 unit BID@08,20 SC Last administered on 08/11/17 10:24; Admin Dose 30 UNIT; Start 08/10/17 at 20:00 Diagnostic Test (Pha) (Accu-Chek) 1 ea 02 XX Last administered on 08/11/17 02 :03; Admin Dose 1 EA; Start 08/11/17 at 02:00 Insulin Aspart (Novolog Insulin Pen) (Adult SC Insulin - Moder... Q4 SC Last administered on 08/11/17 10:24; Admin Dose 4 UNIT; Start 08/10/17 at 21:00 FLEX DENNISON NP Aug 11, 2017 13:27
--- NOTE | 2017-08-11 17:46 | CONS ---
Date/Time of Note Date/Time of Note DATE: 08/11/17 TIME: 17:46 Assessment/Plan Assessment/Plan Additional Assessment/Plan 1. Acute kidney injury due to ATN From sepsis + prerenal azotemia 2. Sepsis due to UTI 3. Chronic resp failure s/p Tracheostomy on ventilator 4/ Anemia of chronic disease 5/ HTN 6. UTI with Urine cx growing Gram negative rods Plan : s/p 1liter IVF Cr 1.93 Na 144, Ca 10.6- monitor Cr and electrolytes - will give NS 2 liter then stop in addition to Tube feeding continue Tube feeding as ordered IV abx colimycin and PO zyvox, - also on PO Fluconazole- ID following, vent management as per pulmonary will follow up Consultation Date/Type/Reason Admit Date/Time Jul 21, 2017 at 23:24 Initial Consult Date 07/22/17 Type of Consultation: NEPHROLOGY Referring Provider: FLEX DENNISON [employer] Exam/Review of Systems Vital Signs Vitals Vital Signs Date Time Temp Pulse Resp B/P Pulse Ox O2 Delivery O2 Flow Rate FiO2 08/11/17 16:00 109 08/11/17 15:20 12 99 30 08/11/17 15:06 98.3 107/69 Intake and Output 08/10/17 08/10/17 08/11/17 15:00 23:00 07:00 Intake Total 1300 ml Output Total 1000 ml Balance 300 ml Exam Constitutional: non-verbal Head: normocephalic Eyes: other ENMT: other (+ tracheostomy secured ) Neck: non-tender, supple Respiratory: clear to auscultation, crackles/rales, diminished breath sounds Cardiovascular: nl pulses, regular rate and rhythm Gastrointestinal: non-tender, soft Musculoskeletal: other (wated LE ) Skin: other (Unstagable multiple decubitus ) Results Result Diagram: 08/11/17 0607 08/11/17 0607 Results 24 hrs Laboratory Tests Test 08/10/17 20:47 08/11/17 02:01 08/11/17 05:41 08/11/17 06:07 Bedside Glucose 202 196 201 White Blood Count 6.2 Red Blood Count 4.00 L Hemoglobin 10.0 L Hematocrit 34.0 L Mean Corpuscular Volume 85.0 Mean Corpuscular Hemoglobin 25.0 L Mean Corpuscular Hemoglobin Concent 29.4 L Red Cell Distribution Width 18.2 H Platelet Count 284 Mean Platelet Volume 12.2 H Neutrophils % 69.1 Lymphocytes % 17.8 Monocytes % 6.0 Eosinophils % 5.3 Basophils % 0.3 Nucleated Red Blood Cells % 0.0 Neutrophils # 4.3 Lymphocytes # 1.1 Monocytes # 0.4 Eosinophils # 0.3 Basophils # 0.0 Nucleated Red Blood Cells # 0.0 Sodium Level 144 Potassium Level 3.7 Chloride Level 109 Carbon Dioxide Level 22 Anion Gap 17 H Blood Urea Nitrogen 46 H Creatinine 1.92 H Glucose Level 201 Calcium Level 11.0 H Test 08/11/17 09:00 08/11/17 13:59 Bedside Glucose 186 244 H Medications Medications Current Medications Miscellaneous Information (Pending [facility] Order For Wound Care) This patient stern... PRN PRN XX WOUND CARE; Start 07/22/17 at 03:30 Acetaminophen (Tylenol Tab) 650 mg Q4 PRN GTB ELEVATED TEMPERATURE Last administered on 08/10/17 09:39; Admin Dose 650 MG; Start 07/22/17 at 05:30 Baclofen (Lioresal) 20 mg TID GTB Last administered on 08/11/17 14:00; Admin Dose 20 MG; Start 07/22/17 at 09:00 Bisacodyl (Dulcolax Supp) 10 mg DAILY PRN [place] CONSTIPATION; Start 07/22/17 at 05:30 Docusate Sodium (Colace Liquid Cup) 100 mg BID GTB Last administered on 09:01; Admin Dose 100 MG; Start 07/22/17 at 09:00 Epoetin Andrey (Epogen (Esrd)) 15,000 units MoWeFr@17 SC Last administered on 17:47; Admin Dose 15,000 UNITS; Start 07/24/17 at 17:00 Magnesium Hydroxide (Milk Of Mag) 30 ml Q24H PRN PO CONSTIPATION; Start at 05:30 Magnesium Oxide (Mag-Ox 400) 800 mg DAILY GTB Last administered on 08/11/17 09:01; Admin Dose 800 MG; Start 07/22/17 at 09:00 Metoclopramide HCl (Reglan) 10 mg BID GTB Last administered on 08/11/17 09:01 ; Admin Dose 10 MG; Start 07/22/17 at 09:00 Mineral Oil (Fleet Mineral Oil Enema) 133 ml DAILY PRN [place] CONSTIPATION; Start 07/22/17 at 05:30 Multivitamins Therapeutic (Theragran) 1 tab DAILY GTB Last administered on 09:02; Admin Dose 1 TAB; Start 07/22/17 at 09:00 Sucralfate (Carafate) 1 gm DAILY GTB Last administered on 08/11/17 09:01; Admin Dose 1 GM; Start 07/22/17 at 09:00 Tramadol HCl (Ultram) 100 mg DAILY GTB Last administered on 08/11/17 09:32; Admin Dose 100 MG; Start 07/22/17 at 09:00 Acetaminophen/ Hydrocodone Bitart ([place] (5/325)) 1 tab Q6H PRN GTB PAIN LEVEL 7-10; Start 07/22/17 at 05:30 Miscellaneous Information 1 ea NOTE XX ; Start 07/22/17 at 15:00 Glucose (Glutose) 15 gm Q15M PRN PO DECREASED GLUCOSE; Start 07/22/17 at 15:00 Glucose (Glutose) 22.5 gm Q15M PRN PO DECREASED GLUCOSE; Start 07/22/17 at 15: 00 Dextrose (D50w Syringe) 25 ml Q15M PRN IV DECREASED GLUCOSE; Start 07/22/17 at 15:00 Dextrose (D50w Syringe) 50 ml Q15M PRN IV DECREASED GLUCOSE; Start 07/22/17 at 15:00 Glucagon (Glucagen) 1 mg Q15M PRN IM DECREASED GLUCOSE; Start 07/22/17 at 15: 00 Glucose (Glutose) 15 gm Q15M PRN BUCCAL DECREASED GLUCOSE; Start 07/22/17 at 15:00 Linezolid (Zyvox) 600 mg BID PO Last administered on 08/11/17 09:02; Admin Dose 600 MG; Start 07/23/17 at 21:00 Fluconazole (Diflucan) 100 mg DAILY PO Last administered on 08/11/17 09:02; Admin Dose 100 MG; Start 07/25/17 at 09:00 Sodium Hypochlorite (Dakin'S (Dilute 1/40%)) 1 applic BID IRR Last administered on 08/11/17 09:03; Admin Dose 1 APPLIC; Start 07/26/17 at 21:00 Lansoprazole (Prevacid) 30 mg BID@06,18 PO Last administered on 08/11/17 05: 42; Admin Dose 30 MG; Start 07/26/17 at 18:00 Zinc Sulfate (Zinc Sulfate) 220 mg DAILY GTB Last administered on 08/11/17 09 :02; Admin Dose 220 MG; Start 07/29/17 at 09:00 Ascorbic Acid (Vitamin C) 500 mg DAILY GTB Last administered on 08/11/17 09: 02; Admin Dose 500 MG; Start 07/29/17 at 09:00 Collagenase (Santyl) 1 applic PRN PRN TOP PRN; Start 08/01/17 at 04:30 Collagenase 1 applic 1 applic DAILY TOP Last administered on 08/11/17 09:00; Admin Dose 1 APPLIC; Start 08/01/17 at 09:00 Colistimethate Sodium/Sodium Chloride (Coly-Mycin/NS) 100 ml @ 200 mls/hr Q24H IVPB Last administered on 08/11/17 09:02; Admin Dose 200 MLS/HR; Start at 09:00 Atenolol (Tenormin) 25 mg BID PO Last administered on 08/10/17 20:54; Admin Dose 25 MG; Start 08/09/17 at 21:00 Insulin Glargine (Lantus) 30 unit BID@08,20 SC Last administered on 08/11/17 10:24; Admin Dose 30 UNIT; Start 08/10/17 at 20:00 Diagnostic Test (Pha) (Accu-Chek) 1 ea 02 XX Last administered on 08/11/17 02 :03; Admin Dose 1 EA; Start 08/11/17 at 02:00 Insulin Aspart (Novolog Insulin Pen) (Adult SC Insulin - Moder... Q4 SC Last administered on 08/11/17 14:14; Admin Dose 6 UNIT; Start 08/10/17 at 21:00 LIZETTE ALEX MD Aug 11, 2017 17:46
[2017-08-11] MEDS ORDERED: SOD CHLORIDE 0.9% 1,000 ML IV SCH (18:00)
--- NOTE | 2017-08-11 18:00 | PN ---
Date/Time of Note Date/Time of Note DATE: 08/11/17 TIME: 18:00 Assessment/Plan VTE Prophylaxis VTE Prophylaxis Intervention: SCD's Lines/Catheters IV Catheter Type (from Nrs): PICC Line Central line still needed: Yes Urinary Cath still in place: Yes Reason Cath still needed: urinary retention Assessment/Plan Chief Complaint/Hosp Course DC planning to [place] Assessment/Plan -Sepsis secondary to UTI, possible pneumonia, infected wounds, osteo,septic arthritis, synovitis. Continue antibiotics per ID . Dr. Zavaleta is following in infection disease consultation. -Multiple decubitus ulcer with posterior and possible septic arthritis, status post sacral wound debridement on 08/04. Dr. High is following in general surgery consultation. Continue antibiotics per ID. -Anemia of chronic disease, continue Epogen. Dr. Ruiz is following in gastroenterology consultation. -Diabetes mellitus, continue Lantus and NovoLog per sliding scale with Accu- Chek every 4 hours. -Advanced multiple sclerosis -Ventilator dependent respiratory failure. Dr. Blackwell is following in pulmonology consultation. -Dysphagia with PEG -Acute on chronic encephalopathy. Further recommendations based on clinical course. Plan of care discussed with Dr. Taylor. Problems: Exam/Review of Systems Vital Signs Vitals Vital Signs Date Time Temp Pulse Resp B/P Pulse Ox O2 Delivery O2 Flow Rate FiO2 08/11/17 17:20 117 12 100 30 08/11/17 15:06 98.3 107/69 Intake and Output 08/10/17 08/10/17 08/11/17 14:59 22:59 06:59 Intake Total 1300 ml Output Total 1000 ml Balance 300 ml Exam Constitutional: non-verbal Neck: other (Tracheostomy) Respiratory: diminished breath sounds Cardiovascular: nl pulses Gastrointestinal: non-tender, other (G-tube), soft Musculoskeletal: muscle weakness Neurological: confused Skin: other (Multiple wounds) Results Result Diagram: 08/11/17 0607 08/11/17 0607 Results 24 hrs Laboratory Tests Test 08/10/17 20:47 08/11/17 02:01 08/11/17 05:41 08/11/17 06:07 Bedside Glucose 202 196 201 White Blood Count 6.2 Red Blood Count 4.00 L Hemoglobin 10.0 L Hematocrit 34.0 L Mean Corpuscular Volume 85.0 Mean Corpuscular Hemoglobin 25.0 L Mean Corpuscular Hemoglobin Concent 29.4 L Red Cell Distribution Width 18.2 H Platelet Count 284 Mean Platelet Volume 12.2 H Neutrophils % 69.1 Lymphocytes % 17.8 Monocytes % 6.0 Eosinophils % 5.3 Basophils % 0.3 Nucleated Red Blood Cells % 0.0 Neutrophils # 4.3 Lymphocytes # 1.1 Monocytes # 0.4 Eosinophils # 0.3 Basophils # 0.0 Nucleated Red Blood Cells # 0.0 Sodium Level 144 Potassium Level 3.7 Chloride Level 109 Carbon Dioxide Level 22 Anion Gap 17 H Blood Urea Nitrogen 46 H Creatinine 1.92 H Glucose Level 201 Calcium Level 11.0 H Test 08/11/17 09:00 08/11/17 13:59 Bedside Glucose 186 244 H Medications Medications Current Medications Miscellaneous Information (Pending [facility] Order For Wound Care) This patient stern... PRN PRN XX WOUND CARE; Start 07/22/17 at 03:30 Acetaminophen (Tylenol Tab) 650 mg Q4 PRN GTB ELEVATED TEMPERATURE Last administered on 08/10/17 09:39; Admin Dose 650 MG; Start 07/22/17 at 05:30 Baclofen (Lioresal) 20 mg TID GTB Last administered on 08/11/17 14:00; Admin Dose 20 MG; Start 07/22/17 at 09:00 Bisacodyl (Dulcolax Supp) 10 mg DAILY PRN [place] CONSTIPATION; Start 07/22/17 at 05:30 Docusate Sodium (Colace Liquid Cup) 100 mg BID GTB Last administered on 09:01; Admin Dose 100 MG; Start 07/22/17 at 09:00 Epoetin Andrey (Epogen (Esrd)) 15,000 units MoWeFr@17 SC Last administered on 17:47; Admin Dose 15,000 UNITS; Start 07/24/17 at 17:00 Magnesium Hydroxide (Milk Of Mag) 30 ml Q24H PRN PO CONSTIPATION; Start at 05:30 Magnesium Oxide (Mag-Ox 400) 800 mg DAILY GTB Last administered on 08/11/17 09:01; Admin Dose 800 MG; Start 07/22/17 at 09:00 Metoclopramide HCl (Reglan) 10 mg BID GTB Last administered on 08/11/17 09:01 ; Admin Dose 10 MG; Start 07/22/17 at 09:00 Mineral Oil (Fleet Mineral Oil Enema) 133 ml DAILY PRN [place] CONSTIPATION; Start 07/22/17 at 05:30 Multivitamins Therapeutic (Theragran) 1 tab DAILY GTB Last administered on 09:02; Admin Dose 1 TAB; Start 07/22/17 at 09:00 Sucralfate (Carafate) 1 gm DAILY GTB Last administered on 08/11/17 09:01; Admin Dose 1 GM; Start 07/22/17 at 09:00 Tramadol HCl (Ultram) 100 mg DAILY GTB Last administered on 08/11/17 09:32; Admin Dose 100 MG; Start 07/22/17 at 09:00 Acetaminophen/ Hydrocodone Bitart ([place] (5/325)) 1 tab Q6H PRN GTB PAIN LEVEL 7-10; Start 07/22/17 at 05:30 Miscellaneous Information 1 ea NOTE XX ; Start 07/22/17 at 15:00 Glucose (Glutose) 15 gm Q15M PRN PO DECREASED GLUCOSE; Start 07/22/17 at 15:00 Glucose (Glutose) 22.5 gm Q15M PRN PO DECREASED GLUCOSE; Start 07/22/17 at 15: 00 Dextrose (D50w Syringe) 25 ml Q15M PRN IV DECREASED GLUCOSE; Start 07/22/17 at 15:00 Dextrose (D50w Syringe) 50 ml Q15M PRN IV DECREASED GLUCOSE; Start 07/22/17 at 15:00 Glucagon (Glucagen) 1 mg Q15M PRN IM DECREASED GLUCOSE; Start 07/22/17 at 15: 00 Glucose (Glutose) 15 gm Q15M PRN BUCCAL DECREASED GLUCOSE; Start 07/22/17 at 15:00 Linezolid (Zyvox) 600 mg BID PO Last administered on 08/11/17 09:02; Admin Dose 600 MG; Start 07/23/17 at 21:00 Fluconazole (Diflucan) 100 mg DAILY PO Last administered on 08/11/17 09:02; Admin Dose 100 MG; Start 07/25/17 at 09:00 Sodium Hypochlorite (Dakin'S (Dilute 1/40%)) 1 applic BID IRR Last administered on 08/11/17 09:03; Admin Dose 1 APPLIC; Start 07/26/17 at 21:00 Lansoprazole (Prevacid) 30 mg BID@06,18 PO Last administered on 08/11/17 05: 42; Admin Dose 30 MG; Start 07/26/17 at 18:00 Zinc Sulfate (Zinc Sulfate) 220 mg DAILY GTB Last administered on 08/11/17 09 :02; Admin Dose 220 MG; Start 07/29/17 at 09:00 Ascorbic Acid (Vitamin C) 500 mg DAILY GTB Last administered on 08/11/17 09: 02; Admin Dose 500 MG; Start 07/29/17 at 09:00 Collagenase (Santyl) 1 applic PRN PRN TOP PRN; Start 08/01/17 at 04:30 Collagenase 1 applic 1 applic DAILY TOP Last administered on 08/11/17 09:00; Admin Dose 1 APPLIC; Start 08/01/17 at 09:00 Colistimethate Sodium/Sodium Chloride (Coly-Mycin/NS) 100 ml @ 200 mls/hr Q24H IVPB Last administered on 08/11/17 09:02; Admin Dose 200 MLS/HR; Start at 09:00 Atenolol (Tenormin) 25 mg BID PO Last administered on 08/10/17 20:54; Admin Dose 25 MG; Start 08/09/17 at 21:00 Insulin Glargine (Lantus) 30 unit BID@08,20 SC Last administered on 08/11/17 10:24; Admin Dose 30 UNIT; Start 08/10/17 at 20:00 Diagnostic Test (Pha) (Accu-Chek) 1 ea 02 XX Last administered on 08/11/17 02 :03; Admin Dose 1 EA; Start 08/11/17 at 02:00 Insulin Aspart (Adult SC Insulin - Moder... Q4 SC Last administered on 14:14; Admin Dose 6 UNIT; Start 08/10/17 at 21:00 Sodium Chloride (NS) 1,000 ml @ 75 mls/hr [id number] IV ; Start 08/11/17 at 18:00 ; Stop 08/12/17 at 20:39 ALIZA ANDRADE Aug 11, 2017 18:00
[2017-08-11] MEDS: EPOETIN 10000 UNITS/1 ML INJ (ESRD) SC SCH (18:07)
--- NOTE | 2017-08-13 21:21 | DS ---
Date/Time of Note Date/Time of Note DATE: 08/13/17 TIME: 21:19 Discharge Summary Admission/Discharge Info Admit Date/Time Jul 21, 2017 at 23:24 Discharge Date/Time Aug 11, 2017 at 19:50 Patient Condition: Stable Hx of Present Illness HPI This 56-year-old female was sent from [facility] for having a low hemoglobin. She was sent by Dr. Taylor. Is unfortunate patient who is chronically on trach vent and is nonverbal at baseline. She is also noted to have a fever and tachycardia on arrival. ROS Unobtainable Allergies Allergies: Coded Allergies: Penicillins (Verified Allergy, Severe, 12/15/16) Cephalosporins (Verified Allergy, Unknown, FLUSHING, TACHYCARDIA, 12/15/16) levofloxacin (Verified Allergy, Unknown, 12/15/16) vancomycin (Verified Allergy, Unknown, 12/15/16) Hospital Course -Sepsis secondary to UTI, possible pneumonia, infected wounds, osteo,septic arthritis, synovitis. Continue antibiotics per ID . Dr. Zavaleta is following in infection disease consultation. -Multiple decubitus ulcer with posterior and possible septic arthritis, status post sacral wound debridement on 08/04. Dr. High is following in general surgery consultation. Continue antibiotics per ID. -Anemia of chronic disease, continue Epogen. Dr. Ruiz is following in gastroenterology consultation. -Diabetes mellitus, continue Lantus and NovoLog per sliding scale with Accu- Chek every 4 hours. -Advanced multiple sclerosis -Ventilator dependent respiratory failure. Dr. Blackwell is following in pulmonology consultation. -Dysphagia with PEG -Acute on chronic encephalopathy. Home Meds Reported Medications Hydrocodone/Acetaminophen ([place] 5-325 Tablet) 1 Each Tablet, 1 EACH GTB Q6 Y for SEVERE PAIN LEVEL 7-10, TAB 07/21/17 Multivitamins* (Theragran*) 1 Tab Tab, 1 TAB PO DAILY, TAB 07/21/17 Magnesium Hydroxide* (Milk Of Magnesia*) 400 Mg/5 Ml Oral.susp, 30 ML PO Q24H Y for CONSTIPATION, ML 07/21/17 Mineral Oil* (Fleet* Mineral Oil Enema) 133 Ml Oil, 133 ML MN DAILY Y for CONSTIPATION, ENEMA 07/21/17 Bisacodyl* (Bisacodyl*) 10 Mg Supp, 10 MG MN DAILY Y for CONSTIPATION, SUPP 07/21/17 Docusate Sodium* (Docusate Sodium*) 100 Mg Capsule, 100 MG GTB BID, #60 CAP 07/21/17 Sucralfate* (Carafate*) 1 Gm Tab, 1 GM GTB DAILY, TAB 07/21/17 Tramadol Hcl* (Ultram*) 50 Mg Tablet, 100 MG GTB DAILY, TAB 05/02/17 Insulin Aspart* (Novolog Insulin Pen*) 100 Unit/Ml Soln, 0 SC .SLIDING SCALE AC , EA 05/02/17 Multivitamins* (Theragran*) 1 Tab Tab, 1 TAB GTB DAILY, TAB 05/02/17 Metoclopramide* (Reglan*) 10 Mg Tablet, 10 MG GTB BID, TAB 05/02/17 Magnesium Oxide* (Magnesium Oxide*) 400 Mg Tablet, 800 MG GTB DAILY, TAB 05/02/17 Insulin Detemir (Levemir) 100 Unit/1 Ml Vial, 20 UNIT SC QHS, VIAL 05/02/17 Insulin Lispro (Humalog) 100 Unit/1 Ml Cartridge, 15 UNIT SQ Q6 05/02/17 Heparin Sod (Porcine) (Heparin) 1,000 Unit/Ml Soln, 5000 UNIT IJ Q12 05/02/17 Epoetin Andrey (Epogen) 10,000 Units/Ml Soln, 71382 UNITS SC MONWEDFRI, VIAL 05/02/17 Ascorbic Acid* (Ascorbic Acid*) 500 Mg/5 Ml Syrup, 500 MG GTB Q8, #150 ML 05/02/17 Arginine/Ascorbate Sod/Hannah AC (Arginaid Powder) 1 Each Powd.pack, 1 EACH GTB BID 05/02/17 Baclofen* (Baclofen*) 20 Mg Tablet, 20 MG GTB TID, TAB 10/14/16 Acetaminophen* (Acetaminophen*) 650 Mg Tablet, 650 MG GTB Q4 Y for ELEVATED TEMPERATURE, #30 TAB OR FEVER 10/14/16 Primary Care Provider Star Taylor MD Time spent on discharge: > 30 minutes Pending Labs Laboratory Tests Test 08/13/17 15:59 Lab Scanned Report BLOOD [id number] NEW Aug 13, 2017 21:21
== END 2017-08-11 19:50 | DRG 853 ==
LOC: E/R 19:34 → TEL 23:24
PROVIDERS: ADMIT Internal Medicine; ATTEND Internal Medicine
PROC: 30233N1 Transfusion of Nonautologous Red Blood Cells into Peripheral Vein, Percutaneous Approach (ICD-10-PCS; 2017-07-21)
PROC: 5A1955Z Respiratory Ventilation, Greater than 96 Consecutive Hours (ICD-10-PCS; 2017-07-22)
PROC: 0JB70ZZ Excision of Back Subcutaneous Tissue and Fascia, Open Approach (ICD-10-PCS; principal; 2017-08-04)
DX: A41.9 Sepsis, unspecified organism (principal); N17.0 Acute kidney failure with tubular necrosis; J18.9 Pneumonia, unspecified organism; G93.1 Anoxic brain damage, not elsewhere classified; G93.40 Encephalopathy, unspecified; L89.894 Pressure ulcer of other site, stage 4; L89.154 Pressure ulcer of sacral region, stage 4; J96.10 Chronic respiratory failure, unspecified whether with hypoxia or hypercapnia; L89.893 Pressure ulcer of other site, stage 3; N39.0 Urinary tract infection, site not specified; M86.651 Other chronic osteomyelitis, right thigh; M00.9 Pyogenic arthritis, unspecified; F03.90 Unspecified dementia, unspecified severity, without behavioral disturbance, psychotic disturbance, mood disturbance, and anxiety; G35 Multiple sclerosis; R13.10 Dysphagia, unspecified; R65.20 Severe sepsis without septic shock; E11.65 Type 2 diabetes mellitus with hyperglycemia; Z79.4 Long term (current) use of insulin; Z93.1 Gastrostomy status; I10 Essential (primary) hypertension; D63.8 Anemia in other chronic diseases classified elsewhere; Z93.0 Tracheostomy status; L89.891 Pressure ulcer of other site, stage 1; E11.621 Type 2 diabetes mellitus with foot ulcer; L97.529 Non-pressure chronic ulcer of other part of left foot with unspecified severity; L89.621 Pressure ulcer of left heel, stage 1; L89.890 Pressure ulcer of other site, unstageable; L89.892 Pressure ulcer of other site, stage 2; M65.9 Synovitis and tenosynovitis, unspecified; E87.6 Hypokalemia
CPT/HCPCS: 36415; 36430; 36600; 71010; 72195; 74176; 76775; 80048; 80053; 81001; 81003; 82270; 82607; 82728; 82746; 82803; 82962; 83540; 83605; 84443; 84484; 85025; 85045; 85610; 85730; 86850; 86870; 86900; 86901; 86920; 87040; 87070; 87081; 87086; 93005; 93306; 94002; 94003; 96365; 96375; C9113; J1815; J2185; J2916; J3480; J7030; J7040; P9016; Q4081

== ENCOUNTER 2017-10-18 14:20 | Inpatient (IN) | END 2017-10-24 19:10 | DRG 870 ==